=== PATIENT | female | born 2000 | race Caucasian/White ===

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

== ENCOUNTER 2023-01-01 22:19 | Emergency (ER) | payer MEDICAID, SELFPAY ==
[2023-01-01 22:20] VITALS: BP 129/84; PULSE 81; RESP 16; TEMP 36.6; O2SAT 98; BMI 17.9
--- NOTE | 2023-01-01 22:32 | ED.VIS.FEGU ---
HPI HPI - Female History of Present Illness Chief Complaint: Flank Pain Informant: patient Pain Pain: Positive for Pelvic Pain Current Severity: Mild Maximum Severity: Mild Bleeding Issue: Positive for Vaginal bleeding Onset: Days Context: Gradual Onset Timing: Intermittent Current Severity: Spotting Maximum Severity: Spotting Associated Symptoms Associated Symptoms: Negative for Dysuria, Frequency, Urgency, Hematuria or Missed Period P: 3 Ab: 0 Narrative Narrative: 22-year-old female G2, P3 with having twins Ab0. Denies dyspnea past medical or surgical history. Denies any prior abdominal surgeries. Since the last week she has not really felt well. Has had lower abdominal discomfort. She went to an urgent care they did a flu test which was negative. She denies any dysuria nor any hematuria. She has had some mild vaginal spotting states her last menstrual period was 3 weeks ago it was several days late and later than normal. She does not believe she is she says she has felt nauseated and tired. She denies any vomiting or diarrhea. No fever. No recent hospitalization. Prior similar symptoms: No Recent Illness/Hospitalization: No PFSH PFSH Medical History Depression GERD (gastroesophageal reflux disease) IBS (irritable bowel syndrome) Home Medications Prilosec 1 tab PO DAILY Check with primary doctor 06/26/19 [History Last Taken 05/01/21 06:30] valacyclovir 1 gram tablet (Valtrex) 1,000 mg PO DAILY hsv 11/11/20 [History Last Taken 05/01/21 06:30] [id number] 1 mg tablet 1 tab PO DAILY 03/07/21 [History Last Taken 05/01/21 06:30] Phenergan 4 mg PO Q4H PRN PRN n/v 05/02/21 [History Last Taken Unknown] progesterone micronized 05/02/21 [History Last Taken 05/01/21 06:30] sulfamethoxazole 800 mg-trimethoprim 160 mg tablet (Bactrim DS) 1 tab PO BID 5 days #10 tabs 01/01/23 [Rx Last Taken Unknown] Allergy/AdvReac Type Severity Reaction Status Date / Time Latex, Natural Rubber AdvReac Rash Verified 01/01/23 22:23 Social History Smoking Status: Current some day smoker tobacco type: cigarettes ROS ROS ED ROS Narrative Nausea. Fatigue. Suprapubic discomfort. Spotting. Review of Systems ROS Unobtainable: Denies due to encephalopathy Constitutional Constitutional ED: Denies chills or fever(s) Eyes Eyes: Denies blurry vision ENT ENT ED: Denies ear pain Cardiovascular Cardiovascular: Denies chest pain Respiratory/Chest Respiratory/Chest: Denies cough Gastrointestinal Gastrointestinal: Reports abdominal pain and nausea; Denies constipation, diarrhea, melena or vomiting Genitourinary Genitourinary ED: Denies dysuria or hematuria Musculoskeletal Musculoskeletal: Denies arthralgias or myalgias Integumentary Denies abscess Neurologic Neurologic: Denies headache(s) Psychiatric Psychiatric: Denies anxiety Endocrine Endocrinology: Denies heat intolerance Hematologic/Lymphatic Hematologic/Lymphatic: Denies easy bleeding Allergic/Immunologic Allergic/Immunologic ED: Denies mouth swelling or tongue swelling EXAM Physical Exam Narrative Exam Narrative: Well-appearing 22-year-old female no acute distress. Vital signs are stable afebrile. She does not look septic or toxic. Mom present in the room. HEENT exam unremarkable. Moist mucous membranes. Neck nontender no lymphadenopathy. Lungs clear to auscultation bilaterally. Heart regular rhythm rate about 80 no murmur. Chest wall nontender. Abdomen soft. Mild suprapubic discomfort. No right upper or right lower quadrant tenderness. No signs of trauma. No distention. No hernia. Moving all 4 extremities. Nontender no edema. Back no specific tenderness. Neurologically she is awake and alert without focal motor deficits. Moving all 4 extremities. Normal motor strength. Const Vital Signs: 01/01/23 22:20 01/01/23 22:56 Temperature 97.9 F Temperature Source Temporal Pulse Rate 81 Respiratory Rate 16 Respiratory Pattern Normal Blood Pressure 129/84 H Blood Pressure Mean 99 Pulse Ox 98 Oxygen Delivery Method Room Air Positive well nourished and well developed; Negative for obese, cachectic, contractures or unkempt General Appearance ED: well developed and NAD; Negative for unkempt, cachectic, contractures or pallor Nutritional Appearance: Negative for cachectic or obese HEENT Reports moist mucous membranes Negative for trauma or tenderness Eyes PERRL and EOMs intact bilaterally General Eye ED: Negative for pale conjunctiva or scleral icterus Neck no lymphadenopathy, supple and no JVD General: Negative for other Thyroid: Negative for tender Lymph Lymphatic: Negative for other Chest Wall inspection of chest normal and palpation of chest normal Chest: Negative for other Resp normal respiratory effort and clear to auscultation bilaterally Effort and Inspection: Negative for pain with movement Auscultation: Negative for rales, rhonchi or wheezes Cardio regular rate, regular rhythm, S1 normal heart sound, no murmurs and no JVD GI normal to inspection, nondistended, normoactive bowel sounds, soft to palpation, non-tender, non-distended and no masses Auscultation: normoactive bowel sounds Palpation: Negative for tender, guarding or rigid Back/Spine no CVA tenderness General Back: Negative for CVA tenderness Cervical Spine: Negative for cervical spine tenderness Thoracic Spine / Upper Back: Negative for thoracic spinal tenderness Lumbar Spine / Lower Back: Negative for lumbar spinal tenderness Extremity normal to inspection and full ROM General Extremety ED: Negative for edema or tenderness General Extremity: Negative for edema Neuro oriented x3, CN's II-XII intact bilaterally and no sensory deficits noted Sensorium / Orientation: alert; Negative for oriented to person, oriented to place or oriented to time Motor Exam: strength 5/5 throughout; Negative for general weakness or strength abnormal Psych mental status grossly normal Appearance: Negative for unkempt Attitude: No agitated Speech: No other Mood & Affect: Negative for depressed, anxious or tearful Skin no rashes or lesions noted and no wounds General Skin Exam: Negative for jaundice or pallor Rashes: No rashes noted Trauma: Negative for other MDM MDM MDM Narrative Medical decision making narrative: Chest 22-year-old female that has had vertigo is gone. Chest discomfort suprapubic abdominal discomfort, spotting and irregular last menstrual period about 3 weeks ago. Stretching out causes complaining and nausea and fatigue. Screening labs being obtained. Urinalysis. Serum . Repeat exam patient is doing well at 11:41 PM. She will be discharged home treated as UTI. She has had UTIs in the past. She has no antibiotic allergies. She be placed on Bactrim p.o. 1 twice daily for 5 days 10 no refill. First dose given in the ER. History & Record Review Discussion w/independent historian: Patient and Family Lab Data Attestation: I reviewed the patient's lab results. Lab results narrative: CBC. White count 9.5. H&H 13 and 39. Platelets 245. Serum test negative. Chemistries unremarkable. Liver enzymes normal. Potassium 3.3. Urine also is consistent with UTI. No nitrates. Rare bacteria. 25-50 white cells. Labs: Laboratory Results - last 24 hr 01/01/23 01/01/23 22:40 22:50 WBC 11.5 H RBC 4.41 Hgb 13.4 Hct 39.6 MCV 89.8 MCH 30.4 MCHC 33.8 RDW Std Deviation 43.3 RDW Coeff of Aida 13.1 Plt Count 245 MPV 10.5 Immature Gran % (Auto) 1.000 H Neut % (Auto) 65.6 Lymph % (Auto) 28.3 [place] % (Auto) 4.5 Eos % (Auto) 0.3 Baso % (Auto) 0.3 Absolute Neuts (auto) 7.5 Absolute Lymphs (auto) 3.24 Nucleated RBC % 0 Sodium 139 Potassium 3.3 L Chloride 107 Carbon Dioxide 27.0 Anion Gap 5 BUN 9 Creatinine 0.72 Estim Creat Clear Calc 96.02 Est GFR (MDRD) Af Amer 133 Est GFR (MDRD) Non-Af 110 BUN/Creatinine Ratio 12.6 Glucose 87 Calcium 8.9 Total Bilirubin 0.30 AST 8 L ALT 13 Alkaline Phosphatase 42 L Total Protein 7.2 Albumin 4.1 Globulin 3.1 Albumin/Globulin Ratio 1.3 Serum , Qual NEGATIVE Urine Color Yellow Urine Clarity Sl. Cloudy Urine pH 6.5 Ur Specific [place] 1.015 Urine Protein 30 H Urine Glucose (UA) Normal Urine Ketones Negative Urine Occult Blood 10 H Urine Nitrite Negative Urine Bilirubin Negative Urine Urobilinogen Normal Ur Leukocyte Esterase 100 H Urine RBC 0-5 SEEN Urine WBC 25-50 SEEN Ur Squamous Epith Cells 0-5 SEEN Urine Bacteria RARE Urine Mucus 0 SEEN Discharge Plan Triage Chief Complaint: Flank Pain ED Provider: Jonathan Rush Dx/Rx/DC Orders Clinical Impression: UTI (urinary tract infection) Instructions: Urinary Tract Infections in Women Prescriptions: New sulfamethoxazole-trimethoprim [Bactrim DS] 800-160 mg tablet 1 tab PO BID 5 Days Qty: 10 0RF No Action Prilosec 1 tab PO DAILY valacyclovir [Valtrex] 1 gram tablet 1,000 mg PO DAILY Patient Comments: Take 1 tablet by mouth once daily. After completing 3 day episodic course. 1 mg Tablet 1 tab PO DAILY Phenergan 4 mg PO Q4H PRN PRN (Reason: n/v) progesterone micronized Primary Care Provider: Melissa Garner Referrals: Melissa Garner MD [Primary Care Provider] - 3-5 Days if not improving Activity Restrictions/Additional Instructions: Plenty of fluids and rest. Tylenol and Motrin for pain. The antibiotic Bactrim 1 pill twice a day for the next 5 days starting tomorrow. You have a urinary tract infection. Your other labs were unremarkable. Your test was negative. Follow-up with your doctor if not improving. Return if worse. Disposition Disposition: Home, Self Care
[2023-01-01 22:44] LABS: Mucous, Urine 0 SEEN /hpf (<or=2+)
[2023-01-01 22:52] LABS: Color, Urine Yellow (Yellow); Glucose, Dipstick Normal (Normal); Ketone-Dipstick Negative (Negative); Leukocyte Esterase-Dipstick 100 /ul (Negative); Nitrite-Dipstick Negative (Negative); Occult Blood-Urine 10 /ul (Negative); Protein-Dipstick 30 mg/dl (Negative); Specific Gravity, Urine 1.015 (1.002-1.030); Urine Bilirubin Dipstick Negative (Negative); Urine Clarity Sl. Cloudy (Clear); Urine Urobilinogen Normal (Normal); Urine pH 6.5 (5.0 - 8.0)
[2023-01-01 23:09] LABS: Bacteria RARE /hpf (None Seen); Red Blood Cells-Urine 0-5 SEEN /hpf (0-5); Squamous Epithelial Cells - UA 0-5 SEEN /hpf (5-10); White Blood Cells 25-50 SEEN /hpf (0-5)
[2023-01-01 23:22] LABS: Internal QC Validated? YES +Cl - CLEAR BKGD; Pregnancy, Serum, hCG Quali. NEGATIVE Negative
[2023-01-01 23:23] LABS: ALB/GLOB Ratio 1.3 RATIO (0.9-2.4); AST(SGOT) 8 U/L (15-37); Alanine Aminotransfer ALT/SGPT 13 U/L (13-56); Albumin, Serum 4.1 g/dL (3.2-5.0); Alkaline Phosphatase 42 U/L (45-117); Anion Gap 5 (5-15); BUN 9 mg/dL (7-18); BUN/Creat Ratio 12.6 RATIO (10-20); Calcium,Total 8.9 mg/dL (8.5-10.1); Chloride 107 mmol/L (98-107); Creatinine, Serum 0.72 mg/dL (0.55-1.02); EST Glomerular Filtration Rate 110 mL/min (>60); Est Glom Filt Rate - Afr Amer 133 mL/min (>60); Estimated Creatinine Clearance 96.02 ml/min; Globulin 3.1 g/dL (2.2-4.2); Glucose 87 mg/dL (74-106); Potassium 3.3 mmol/L (3.5-5.1); Protein, Total 7.2 g/dL (6.4-8.2); Sodium Level 139 mmol/L (136-145)
[2023-01-01 23:30] LABS: Absolute Lymphocyte Count 3.24 X10^3/uL (0.83-4.51); Absolute Neutrophil Count 7.5 X10^3/uL (2.0-7.7); Basophil# 0.04 X10^3/uL; Basophil% 0.3 % (0-1); Eosinophil# 0.04 X10^3/uL; Eosinophils% 0.3 % (0-5); Hematocrit 39.6 % (37-47); Hemoglobin 13.4 g/dL (12.0-15.0); Lymphocyte # 3.24 X10^3/ul (0.83-4.51); Lymphocyte % 28.3 % (19-41); Mean Corp Hgb Conc 33.8 g/dL (32-36); Mean Corpuscular Hgb 30.4 pg (27.0-32.0); Mean Corpuscular Volume 89.8 fL (81-99); Mean Platelet Vol. 10.5 fl (6.2-12.0); Monocyte# 0.52 X10^3/uL; Monocyte% 4.5 % (0-10); NRBC Flagged by Analyzer 0 % (0-5); Neutrophil # 7.49 X10^3/uL (2.7-7.7); Neutrophil % 65.6 % (47-70); Platelet Count 245 K/mm3 (150-450); RBC Distribution Width CV 13.1 % (11.6-14.6); RBC Distribution Width SD 43.3 fl (35.1-43.9); Red Blood Count 4.41 M/mm3 (4.2-5.4); White Blood Count 11.5 K/mm3 (4.4-11.0)
[2023-01-01] MEDS: Smz/Tmp Ds Tablet 1 TABLET PO (23:51)
== END 2023-01-01 23:57 | disposition home or self-care (01) ==
PROVIDERS: Emergency Provider Emergency Medicine; PCP Pediatrics; Visit Provider Emergency Medicine
DX: N39.0 Urinary tract infection, site not specified (principal); F17.210 Nicotine dependence, cigarettes, uncomplicated; N93.9 Abnormal uterine and vaginal bleeding, unspecified; N92.6 Irregular menstruation, unspecified
CPT/HCPCS: 80053; 81001; 84703; 85025; 99282

== ENCOUNTER 2023-10-09 16:06 | Emergency (ER) | payer MEDICAID, SELFPAY ==
[2023-10-09 16:07] VITALS: BP 112/95; PULSE 99; RESP 18; TEMP 36.7; O2SAT 100; BMI 17.3
[2023-10-09 17:05] LABS: Absolute Lymphocyte Count 2.11 X10^3/uL (0.83-4.51); Absolute Neutrophil Count 3.5 X10^3/uL (2.0-7.7); Basophil# 0.04 X10^3/uL; Basophil% 0.7 % (0-1); Eosinophil# 0.06 X10^3/uL; Hematocrit 39.3 % (37-47); Lymphocyte # 2.11 X10^3/ul (0.83-4.51); Lymphocyte % 34.8 % (19-41); Mean Corp Hgb Conc 33.1 g/dL (32-36); Mean Corpuscular Volume 90.8 fL (81-99); Mean Platelet Vol. 10.8 fl (6.2-12.0); Monocyte# 0.38 X10^3/uL; Monocyte% 6.3 % (0-10); NRBC Flagged by Analyzer 0 % (0-5); Neutrophil # 3.47 X10^3/uL (2.7-7.7); Platelet Count 239 K/mm3 (150-450); RBC Distribution Width CV 12.5 % (11.6-14.6); RBC Distribution Width SD 41.5 fl (35.1-43.9); Red Blood Count 4.33 M/mm3 (4.2-5.4); White Blood Count 6.1 K/mm3 (4.4-11.0)
[2023-10-09] MEDS: 0.9% Normal Saline (1000mL) 1,000 ML 1000 ML IV ×2 (17:06→18:22)
[2023-10-09] MEDS: Ondansetron 4 MG/2 ML Vial IV (17:06)
[2023-10-09] MEDS: Ketorolac 30 MG/ML Syringe IV (17:06)
--- NOTE | 2023-10-09 17:06 | EX.ED.DYSGE1 ---
HPI History of Present Illness Chief Complaint: Headache Informant: patient Narrative Narrative: 23-year-old female presenting to the emergency room with chief complaint of migraine. Patient states that for the past 3 days she has had an occipital headache that seems to come towards the front. She notes decreased sleep. She notes some slight cough and runny nose. Yesterday developed vomiting and some diarrhea. She notes that her children have had vomiting diarrhea recently. She notes generalized myalgias. No definitive fevers. She denies rashes. She states she has never been diagnosed as definitive migraines but she does occasionally get headaches which she treats with [id number] medications and usually resolves it. She denies any arm leg face or speech changes. [facility] Medical History Depression GERD (gastroesophageal reflux disease) IBS (irritable bowel syndrome) Home Medications Prilosec 1 tab PO DAILY Check with primary doctor 06/26/19 [History Last Taken 05/01/21 06:30] valacyclovir 1 gram tablet (Valtrex) 1,000 mg PO DAILY hsv 11/11/20 [History Last Taken 05/01/21 06:30] [id number] 1 mg tablet 1 tab PO DAILY 03/07/21 [History Last Taken 05/01/21 06:30] Phenergan 4 mg PO Q4H PRN PRN n/v 05/02/21 [History Last Taken Unknown] progesterone micronized 05/02/21 [History Last Taken 05/01/21 06:30] sulfamethoxazole 800 mg-trimethoprim 160 mg tablet (Bactrim DS) 1 tab PO BID 5 days #10 tabs 01/01/23 [Rx Last Taken Unknown] ondansetron 4 mg disintegrating tablet 4 mg PO Q6H PRN PRN Nausea #10 tabs 10/09/23 [Rx Last Taken Unknown] Allergy/AdvReac Type Severity Reaction Status Date / Time Latex, Natural Rubber AdvReac Rash Verified 10/09/23 16:07 Social History Smoking Status: Current some day smoker tobacco type: cigarettes ROS ROS ED Constitutional Constitutional ED: Denies chills, fever(s) or weight loss Eyes Eyes: Denies change in vision or diplopia ENT ENT ED: Reports rhinorrhea; Denies ear pain or sore throat Cardiovascular Cardiovascular: Denies chest pain, orthopnea, palpitations or racing heartbeat Respiratory/Chest Respiratory/Chest: Reports cough; Denies dyspnea or orthopnea Gastrointestinal Gastrointestinal: Reports diarrhea, nausea and vomiting; Denies abdominal pain Genitourinary Genitourinary ED: Denies dysuria, hematuria or urinary frequency Musculoskeletal Musculoskeletal: Reports myalgias and neck pain; Denies arthralgias or back pain Integumentary Denies abscess or rash Neurologic Neurologic: Reports headache(s); Denies weakness Psychiatric Psychiatric: Denies anxiety, depression, suicidal ideation or suicidal thoughts Endocrine Endocrinology: Denies polydipsia, polyphagia or polyuria Allergic/Immunologic Allergic/Immunologic ED: Denies mouth swelling, tongue swelling or urticaria EXAM Physical Exam Const Vital Signs: 10/09/23 16:07 10/09/23 18:07 Temperature 98.1 F Temperature Source Temporal Pulse Rate 99 60 Respiratory Rate 18 17 Blood Pressure 112/95 H 112/77 Blood Pressure Mean 100 88 Pulse Ox 100 99 Oxygen Delivery Method Room Air Room Air Positive well nourished and well developed General Appearance ED: well developed HEENT Reports normocephalic, head/scalp atraumatic and moist mucous membranes Eyes PERRL and EOMs intact bilaterally Eyes Narrative: No photophobia Neck no lymphadenopathy, supple and no JVD Neck Narrative: No meningeal signs Resp normal respiratory effort and clear to auscultation bilaterally Cardio regular rate, regular rhythm and no murmurs GI normal to inspection, nondistended, normoactive bowel sounds and non-tender Palpation: soft Back/Spine no CVA tenderness and normal ROM Extremity normal to inspection General Extremety ED: Negative for edema General Extremity: Negative for edema Neuro oriented x3 and CN's II-XII intact bilaterally Sensorium / Orientation: alert Motor Exam: strength 5/5 throughout Psych mental status grossly normal Mood & Affect: Negative for depressed or tearful Skin no rashes or lesions noted and no wounds MDM MDM MDM Narrative Medical decision making narrative: Patient received 2 L of IV fluids Zofran and Toradol. Headache is improved she is overall feeling better. Basic blood work showed a white count 6.1 hemoglobin 13 platelet count of 239. Sodium and potassium within normal limits. BUN of 5 creatinine 0.64. Liver enzymes within normal limits lipase of 15 test negative urinalysis shows no overt infection. COVID influenza and RSV were negative. Clinically with her kids sick at home with similar symptoms minus the headache I think the patient most likely has a viral illness. Would recommend continued oral hydration I can write for Zofran at home. Tylenol Motrin for pain. Return if worsening or concerns follow-up as needed History & Record Review Discussion w/independent historian: Patient and Family Lab Data Attestation: I reviewed the patient's lab results. Labs: Laboratory Results - last 24 hr 10/09/23 10/09/23 17:00 18:00 WBC 6.1 RBC 4.33 Hgb 13.0 Hct 39.3 MCV 90.8 MCH 30.0 MCHC 33.1 RDW Std Deviation 41.5 RDW Coeff of Aida 12.5 Plt Count 239 MPV 10.8 Immature Gran % (Auto) 0.200 Neut % (Auto) 57.0 Lymph % (Auto) 34.8 [place] % (Auto) 6.3 Eos % (Auto) 1.0 Baso % (Auto) 0.7 Absolute Neuts (auto) 3.5 Absolute Lymphs (auto) 2.11 Nucleated RBC % 0 Sodium 141 Potassium 4.0 Chloride 111 H Carbon Dioxide 26.0 Anion Gap 4 L BUN 5 L Creatinine 0.64 Estim Creat Clear Calc 103.55 Est GFR (MDRD) Af Amer 150 Est GFR (MDRD) Non-Af 124 BUN/Creatinine Ratio 7.8 L Glucose 85 Calcium 8.6 Total Bilirubin 0.70 AST 10 L ALT 13 Alkaline Phosphatase 39 L Total Protein 6.8 Albumin 4.0 Globulin 2.8 Albumin/Globulin Ratio 1.4 Lipase 15 Urine Color Yellow Urine Clarity Sl. Cloudy Urine pH 7.0 Ur Specific [place] 1.010 Urine Protein Negative Urine Glucose (UA) Normal Urine Ketones Negative Urine Occult Blood 25 H Urine Nitrite Negative Urine Bilirubin Negative Urine Urobilinogen Normal Ur Leukocyte Esterase Negative Urine RBC 0-5 SEEN Urine WBC 0 SEEN Ur Squamous Epith Cells 0-5 SEEN Urine Bacteria 0 SEEN Urine Mucus 0 SEEN Urine Test Negative Discharge Plan Triage Chief Complaint: Headache ED Provider: Eze Norman Dx/Rx/DC Orders Clinical Impression: Acute dehydration, Vomiting and diarrhea, Headache Instructions: ED Dehydration (Adult), ED Viral Syndrome (Adult) Prescriptions: New ondansetron [ondansetron] 4 mg tablet,disintegrating 4 mg PO Q6H PRN PRN (Reason: Nausea) Qty: 10 0RF No Action Prilosec 1 tab PO DAILY valacyclovir [Valtrex] 1 gram tablet 1,000 mg PO DAILY Patient Comments: Take 1 tablet by mouth once daily. After completing 3 day episodic course. 1 mg Tablet 1 tab PO DAILY Phenergan 4 mg PO Q4H PRN PRN (Reason: n/v) progesterone micronized sulfamethoxazole-trimethoprim [Bactrim DS] 800-160 mg tablet 1 tab PO BID 5 Days Qty: 10 0RF Primary Care Provider: Melissa Garner Referrals: Melissa Garner MD [Primary Care Provider] - As Needed Disposition Disposition: Home, Self Care
[2023-10-09 17:24] LABS: ALB/GLOB Ratio 1.4 RATIO (0.9-2.4); AST(SGOT) 10 U/L (15-37); Alanine Aminotransfer ALT/SGPT 13 U/L (13-56); Alkaline Phosphatase 39 U/L (45-117); Anion Gap 4 (5-15); BUN 5 mg/dL (7-18); BUN/Creat Ratio 7.8 RATIO (10-20); Calcium,Total 8.6 mg/dL (8.5-10.1); Chloride 111 mmol/L (98-107); Creatinine, Serum 0.64 mg/dL (0.55-1.02); EST Glomerular Filtration Rate 124 mL/min (>60); Est Glom Filt Rate - Afr Amer 150 mL/min (>60); Estimated Creatinine Clearance 103.55 ml/min; Globulin 2.8 g/dL (2.2-4.2); Glucose 85 mg/dL (74-106); Lipase 15 U/L (13-75); Protein, Total 6.8 g/dL (6.4-8.2); Sodium Level 141 mmol/L (136-145)
[2023-10-09 18:06] LABS: Bacteria 0 SEEN /hpf (None Seen); Mucous, Urine 0 SEEN /hpf (<or=2+); White Blood Cells 0 SEEN /hpf (0-5)
[2023-10-09 18:07] VITALS: BP 112/77; PULSE 60; RESP 17; O2SAT 99
[2023-10-09 18:08] LABS: Color, Urine Yellow (Yellow); Glucose, Dipstick Normal (Normal); Ketone-Dipstick Negative (Negative); Leukocyte Esterase-Dipstick Negative /ul (Negative); Nitrite-Dipstick Negative (Negative); Occult Blood-Urine 25 /ul (Negative); Protein-Dipstick Negative (Negative); Urine Bilirubin Dipstick Negative (Negative); Urine Clarity Sl. Cloudy (Clear); Urine Urobilinogen Normal (Normal)
[2023-10-09 18:15] LABS: Internal QC Validated? YES +Cl - CLEAR BKGD; Pregnancy, Urine Negative Negative; Record Kit Lot#,Urine Preg HCG0000718086; Red Blood Cells-Urine 0-5 SEEN /hpf (0-5); Squamous Epithelial Cells - UA 0-5 SEEN /hpf (5-10)
== END 2023-10-09 19:45 | disposition home or self-care (01) ==
PROVIDERS: Emergency Provider Emergency Medicine; PCP Pediatrics; Visit Provider Emergency Medicine
DX: R51.9 Headache, unspecified (principal); E86.0 Dehydration; F17.210 Nicotine dependence, cigarettes, uncomplicated; R11.10 Vomiting, unspecified; R19.7 Diarrhea, unspecified; K21.9 Gastro-esophageal reflux disease without esophagitis; Z79.899 Other long term (current) drug therapy
CPT/HCPCS: 80053; 81001; 81025; 83690; 85025; 87631; 96361; 96374; 96375; 99282; J7030; A4216; J2405

== ENCOUNTER 2023-12-14 12:46 | Emergency (ER) | payer MEDICAID, SELFPAY ==
[2023-12-14 12:47] VITALS: BP 121/88; PULSE 106; RESP 15; TEMP 36.2; O2SAT 100; BMI 16.1
[2023-12-14 13:01] LABS: Red Blood Cells-Urine 0 SEEN /hpf (0-5)
[2023-12-14 13:08] LABS: Color, Urine Yellow (Yellow); Glucose, Dipstick Normal (Normal); Ketone-Dipstick Negative (Negative); Leukocyte Esterase-Dipstick 25 /ul (Negative); Nitrite-Dipstick Negative (Negative); Occult Blood-Urine Negative /ul (Negative); Protein-Dipstick 15 mg/dl (Negative); Urine Bilirubin Dipstick Negative (Negative); Urine Clarity Sl. Cloudy (Clear); Urine Urobilinogen Normal (Normal)
[2023-12-14 13:21] LABS: Bacteria 1+ /hpf (None Seen); Internal QC Validated? YES +Cl - CLEAR BKGD; Mucous, Urine 1+ /hpf (<or=2+); Pregnancy, Urine Negative Negative; Record Kit Lot#,Urine Preg HCG0000735774; Squamous Epithelial Cells - UA 5-10 SEEN /hpf (5-10); White Blood Cells 0-5 SEEN /hpf (0-5)
--- NOTE | 2023-12-14 14:25 | EDS_ITS ---
HPI History of Present Illness Chief Complaint: Flank Pain Informant: patient Narrative Narrative: 23-year-old female healthy started having pain in her right low back/flank that started while she was driving today. Hurts more to move and to sit up. Better to remain still. She had a little nausea with it but no vomiting. No urinary symptoms. No abdominal pain. She denies any shortness of breath. Patient states she has an old vehicle with no power steering. She states for a while the pump was leaking and she was going through $100 worth of power steering fluid per month and just dumping it and so they eventually unhooked the pump. Now it is a lot of work to steer and she is fairly small only 45 kg. She states yes this could have occurred as a result she has been driving a lot for the past week or 2 whereas before she was avoiding it because it is so hard to turn the wheel. 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 [facility] Medical History IBS (irritable bowel syndrome) Depression GERD (gastroesophageal reflux disease) Home Medications ?Medication ?Instructions ?Recorded ?Last Taken ?Type Prilosec 1 tab PO DAILY Check with primary 06/26/19 05/01/21 06:30 History doctor valacyclovir 1 gram tablet 1,000 mg PO DAILY hsv 11/11/20 05/01/21 06:30 History (Valtrex) [id number] 1 mg 1 tab PO DAILY 03/07/21 05/01/21 06:30 History tablet Phenergan 4 mg PO Q4H PRN PRN n/v 05/02/21 Unknown History progesterone micronized 05/02/21 05/01/21 06:30 History sulfamethoxazole 800 1 tab PO BID 5 days #10 tabs 01/01/23 Unknown Rx mg-trimethoprim 160 mg tablet (Bactrim DS) ondansetron 4 mg disintegrating 4 mg PO Q6H PRN PRN Nausea #10 tabs 10/09/23 Unknown Rx tablet naproxen 500 mg tablet (Naprosyn) 500 mg PO BID PRN pain #12 tabs 12/14/23 Unknown Rx Allergy/AdvReac Type Severity Reaction Status Date / Time Latex, Natural Rubber AdvReac Rash Verified 12/14/23 12:50 Social History Smoking Status: Current some day smoker tobacco type: cigarettes ROS ROS ED Constitutional Constitutional ED: Denies chills or fever(s) Cardiovascular Cardiovascular: Denies chest pain, lightheadedness, palpitations, racing heartbeat or syncope Respiratory/Chest Respiratory/Chest: Denies cough or dyspnea Gastrointestinal Gastrointestinal: Reports nausea; Denies abdominal pain, diarrhea or vomiting Genitourinary Genitourinary ED: Denies dysuria, hematuria or urinary frequency Musculoskeletal Musculoskeletal: Reports back pain; Denies neck pain Integumentary Denies rash Neurologic Neurologic: Denies headache(s), paresthesias or weakness EXAM Physical Exam Const Vital Signs: 12/14/23 12:47 Temperature 97.2 F L Temperature Source Temporal Pulse Rate 106 H Respiratory Rate 15 Blood Pressure 121/88 H Blood Pressure Mean 99 Pulse Ox 100 Oxygen Delivery Method Room Air Positive well nourished and well developed Constitutional Narrative: Well-appearing General Appearance ED: well developed and NAD HEENT Reports moist mucous membranes Negative for trauma Eyes PERRL and EOMs intact bilaterally Neck supple Chest Wall inspection of chest normal and palpation of chest normal Resp normal respiratory effort GI normal to inspection, nondistended, normoactive bowel sounds and non-tender Back/Spine no CVA tenderness Back/Spine Narrative: Diffuse right paraspinal lumbar musculoskeletal tenderness with normal on inspection, patient winces that she is sitting up as it exacerbates the pain but she is able. Tender up into lower areas of the latissimus dorsi as well, no focal rib tenderness. Some mild tenderness superficially around the flank and into the right lower rib cage but not the abdomen. Lumbar Spine / Lower Back: Negative for lumbar spinal tenderness Extremity normal to inspection Neuro oriented x3, CN's II-XII intact bilaterally and no sensory deficits noted Sensorium / Orientation: alert Motor Exam: strength 5/5 throughout Psych mental status grossly normal Skin no rashes or lesions noted and no wounds MDM MDM MDM Narrative Medical decision making narrative: Urinalysis is sent by nursing prior to my evaluation it is unremarkable and her is negative ruling out ectopic. There is no microscopic hematuria. This is reassuring not likely to be a kidney stone I suspect this is all musculoskeletal, she states that could certainly be the case based on the way it feels. I do not think any other emergent testing is warranted. Her vital signs are normal. She is okay with that a work excuse and a prescription for some anti-inflammatories and follow-up as needed. Lab Data Attestation: I reviewed the patient's lab results. Labs: Laboratory Results - last 24 hr 12/14/23 12:55 Urine Color Yellow Urine Clarity Sl. Cloudy Urine pH 5.0 Ur Specific [place] 1.020 Urine Protein 15 H Urine Glucose (UA) Normal Urine Ketones Negative Urine Occult Blood Negative Urine Nitrite Negative Urine Bilirubin Negative Urine Urobilinogen Normal Ur Leukocyte Esterase 25 H Urine RBC 0 SEEN Urine WBC 0-5 SEEN Ur Squamous Epith Cells 5-10 SEEN Urine Bacteria 1+ Urine Mucus 1+ Urine Test Negative Discharge Plan Triage Chief Complaint: Flank Pain ED Provider: Chencho Skinner Dx/Rx/DC Orders Clinical Impression: Acute lumbar myofascial strain Instructions: ED Back Sprain/Strain Prescriptions: New naproxen [Naprosyn] 500 mg tablet 500 mg PO BID PRN (Reason: pain) Qty: 12 0RF No Action Prilosec 1 tab PO DAILY valacyclovir [Valtrex] 1 gram tablet 1,000 mg PO DAILY Patient Comments: Take 1 tablet by mouth once daily. After completing 3 day episodic course. 1 mg Tablet 1 tab PO DAILY Phenergan 4 mg PO Q4H PRN PRN (Reason: n/v) progesterone micronized sulfamethoxazole-trimethoprim [Bactrim DS] 800-160 mg tablet 1 tab PO BID 5 Days Qty: 10 0RF ondansetron [ondansetron] 4 mg tablet,disintegrating 4 mg PO Q6H PRN PRN (Reason: Nausea) Qty: 10 0RF Stand Alone Forms: ED Work / School Excuse Primary Care Provider: Melissa Garner Referrals: Melissa Garner MD [Primary Care Provider] - 1 Week if not improving Print Language: Faroese Disposition Disposition: Home, Self Care
[2023-12-14 14:36] VITALS: BP 112/73; PULSE 78; RESP 18; TEMP 36.3; O2SAT 99
[2023-12-14] MEDS: Naproxen 500 MG Tablet PO (14:36)
== END 2023-12-14 14:37 | disposition home or self-care (01) ==
LOC: ED 14:32
PROVIDERS: Emergency Provider Emergency Medicine; PCP Pediatrics; Visit Provider Emergency Medicine
DX: S39.012A Strain of muscle, fascia and tendon of lower back, initial encounter (principal); F17.210 Nicotine dependence, cigarettes, uncomplicated
CPT/HCPCS: 81001; 81025; 99282

== ENCOUNTER 2024-04-01 10:04 | Day surgery (SDC) | payer MEDICAID, SELFPAY ==
[2024-04-01] VITALS (13 sets, daily range): BP systolic 108–137; BP diastolic 75–92; PULSE 88–133; RESP 14–22; TEMP 36.6–37.3; O2SAT 100; BMI 15.7
--- NOTE | 2024-04-01 | EMB_PTH ---
PATIENT: DONYA SCHWAB LOC: [facility] U#:[id number] AGE/SX: 23/F ROOM: RE04/01/[address]: Dr. Elena Robertson MD : 2000 BED: DIS: 04/01/2024 SPEC #: [id number] RECD: 04/01/24 17:39 STATUS: CRYS CASTAÑEDATiago #: [id number] ZELDA: 04/01/24 00:[address]: Elena Robertson DEPT: SURGICAL PATHOLOGY RECD BY: Reggie He ENTERED: 04/02/24 11:46 SP TYPE: ENDOM BX/C MELISSA DR: Dr. Melissa Garner MD Tissues: A - Endometrium, NOS B - ECTOPIC PREG Procedures: Surgery Specimen Level IV HEADER OPERATION: Laparoscopic, removal ectopic PRE-OP DIAGNOSIS: Right ectopic TISSUE SUBMITTED: A- Endometrial curettings, B- Right ectopic MICROSCOPIC DIAGNOSIS A. Endometrium, curettings: Secretory endometrium with glandular and stromal breakdown. B. Right ectopic , salpingectomy: Chorionic villi are present. See comment. 04/05/2024 COMMENT B. The findings are consistent with an ectopic . Clinical correlation is suggested. Case has been reviewed in consultation with Dr. Vee who concurs with the above diagnosis. IDC:[email or web address] MICROSCOPIC DESCRIPTION Slides are reviewed. GROSS DESCRIPTION A. Received in fixative is one container labeled with the patient's name and designated Endometrial curettings. The specimen consists of multiple irregular fragments of hemorrhagic soft tissue that in aggregate measure 2.5 x 1.4 x 0.3 cm. The specimen is totally submitted in one cassette. B. Received in fixative is one container labeled with the patient's name and designated Right ectopic . The specimen consists of a fallopian tube measuring 6.0cm in length and 5.0 to 3.0cm in diameter. Center area of fallopian tube show rupture with blood clots. Also present in the container is a detached piece of fallopian tube measuring 3.0cm in length and up to 1.2cm in diameter. Fimbrial end is identified. Sections reveal the fallopian tube lumen is filled with blood clot. No tissue is identified. Vendor Management Specialist sections are submitted in five cassettes. 04/02/2024 TC:5 CPT:78513s9
--- NOTE | 2024-04-01 10:31 | US_ITS ---
STUDY: FIRST TRIMESTER OBSTETRICAL ULTRASOUND REASON FOR EXAM: Female, 23 years old right sided pain + preg, vaginal bleeding LMP: November 21, 2024 TECHNIQUE: Transvaginal TECHNICAL QUALITY: Adequate. PRIOR ULTRASOUND: None. FINDINGS: There is no demonstrated intrauterine gestational sac. There is no demonstrated yolk sac. The placenta is non-visualized. There is no demonstrated embryo ( pole). The estimated gestation age (EGA) by LMP is 6 weeks, 4 days. The estimated date of delivery (ABRAHAM) by LMP is November 21, 2024. The uterus measures 6.5 cm x 4.6 x 4 cm. There is no demonstrated uterine fibroid. The cervix is closed. The right ovary measures 3.2 cm x 2.3 cm x 1.6 cm. There is a 3.3 cm x 2.4 cm x 2.2 cm complex density inferior to the right ovary. Free fluid is seen around it. Ectopic should be ruled out. There is no visualized right adnexal mass or complex lesion. The left ovary measures 2.8 cm x 1.3 cm x 1 cm. 1.1 cm x 1.1 cm x 0.7 cm complex cyst in the left ovary. There is no visualized left adnexal mass or complex lesion. US/Transvaginal w/Preg US IMPRESSION: No intrauterine . Findings suggestive of ectopic in the right adnexa as described with a moderate amount of free fluid. Electronically Signed: Nelson Marie MD at 12:24 EDT ,
--- NOTE | 2024-04-01 10:33 | EDS_ITS ---
HPI HPI - Female History of Present Illness Chief Complaint: Vag Bld, Preg Informant: patient Narrative Narrative: Patient is a 23-year-old female G4, P3 with last menstrual period of February 14. She is presenting from her OB office for further evaluation and concern of possible ectopic . Patient states she has had bleeding pretty much all month. She states is going through a pad every 4 hours. She did pass a clot yesterday though. Maybe had some tissue in it. She has been having worsening crampy discomfort over the past 1 to 2 days it is more on the right side. Radiates to her back. She has some pressure with urination but denies any dysuria. States he has a lot of pressure in her pelvis regardless. She had an in office ultrasound today where she states they could not see anything and recommended her to the ER for formal ultrasound intervention she did have an ectopic . She denies any nausea or vomiting. Notes that she did almost pass out when they were getting her blood work this morning but also attributes that to not having eaten today. She states she did not have a pelvic exam done earlier today. No other complaints or concerns reported at this time. [facility] Medical History IBS (irritable bowel syndrome) Depression GERD (gastroesophageal reflux disease) Home Medications ?Medication ?Instructions ?Recorded ?Last Taken ?Type Prilosec 1 tab PO DAILY Check with primary 06/26/19 05/01/21 06:30 History doctor valacyclovir 1 gram tablet 1,000 mg PO DAILY hsv 11/11/20 05/01/21 06:30 History (Valtrex) [id number] 1 mg 1 tab PO DAILY 03/07/21 05/01/21 06:30 History tablet Phenergan 4 mg PO Q4H PRN PRN n/v 05/02/21 Unknown History progesterone micronized 05/02/21 05/01/21 06:30 History sulfamethoxazole 800 1 tab PO BID 5 days #10 tabs 01/01/23 Unknown Rx mg-trimethoprim 160 mg tablet (Bactrim DS) ondansetron 4 mg disintegrating 4 mg PO Q6H PRN PRN Nausea #10 tabs 10/09/23 Unknown Rx tablet naproxen 500 mg tablet (Naprosyn) 500 mg PO BID PRN pain #12 tabs 12/14/23 Unknown Rx metronidazole 500 mg tablet 500 mg PO BID 04/01/24 Unknown History Allergy/AdvReac Type Severity Reaction Status Date / Time Latex, Natural Rubber AdvReac Rash Verified 04/01/24 12:59 Social History Smoking Status: Current some day smoker tobacco type: cigarettes ROS ROS ED Constitutional Constitutional ED: Denies chills or fever(s) Cardiovascular Cardiovascular: Denies chest pain Respiratory/Chest Respiratory/Chest: Denies cough Gastrointestinal Gastrointestinal: Reports abdominal pain; Denies nausea or vomiting Genitourinary Genitourinary ED: Reports other Details: Vaginal bleeding, pelvic pressure ; Denies dysuria or urinary frequency Musculoskeletal Musculoskeletal: Denies arthralgias or myalgias Integumentary Denies rash Neurologic Neurologic: Denies headache(s) Psychiatric Psychiatric: Denies anxiety Hematologic/Lymphatic Hematologic/Lymphatic: Denies easy bleeding or easy bruising EXAM Physical Exam Const Vital Signs: 04/01/24 10:05 04/01/24 11:19 04/01/24 12:06 Temperature 98 F 99.1 F Temperature Source Temporal Oral Pulse Rate 98 90 Respiratory Rate 18 17 Blood Pressure 108/89 H 120/82 H 112/75 Blood Pressure Mean 95 94 87 Pulse Ox 100 100 Oxygen Delivery Method Room Air Room Air 04/01/24 12:29 04/01/24 12:30 Temperature 99.1 F 99.1 F Temperature Source Temporal Pulse Rate 88 88 Respiratory Rate 16 16 Blood Pressure 120/76 120/76 Blood Pressure Mean 90 90 Pulse Ox 100 100 Oxygen Delivery Method Room Air Positive well nourished and well developed General Appearance ED: well developed and NAD Eyes PERRL Neck supple Chest Wall inspection of chest normal and palpation of chest normal Resp normal respiratory effort and clear to auscultation bilaterally Cardio regular rate and regular rhythm GI soft to palpation and non-distended Palpation: tender RLQ, RUQ and suprapubic; Negative for guarding or rigid Back/Spine no CVA tenderness Extremity normal to inspection and full ROM Neuro oriented x3 Sensorium / Orientation: alert Motor Exam: Negative for general weakness Psych mental status grossly normal Skin no rashes or lesions noted MDM MDM MDM Narrative Medical decision making narrative: Patient evaluated for vaginal bleeding and right-sided abdominal pain in early . Apparently she had a bedside transvaginal ultrasound which did not show any obvious IUP. Concern for possible ectopic versus threatened miscarriage versus incomplete miscarriage. Will give IV fluids, check labs including quant, CBC and CMP (she does also have some right upper quadrant tenderness), confirm type and screen, obtain t ransvaginal ultrasound and perform pelvic exam. [facility] is paged to ensure that this was their concern and make sure there is no miscommunication about the plan in the emergency room on initial evaluation. At this time she is not peritoneal and is hemodynamically stable. I spoke with Dr. Robertson who states that a quick bedside ultrasound performed which did not show anything in the uterus and her concerns for ectopic. She was not able to appreciate free fluid but needed formal ultrasound and labs. Lab work shows a quant of 1089. Patient is O+. Labs are otherwise normal. I am notified by robotic technician that her ultrasound is concerning for ectopic . Dr. Robertson is immediately notified. Discussed with her that while the official read is not back yet I do suspect that this needs surgical intervention it would not be candidate for methotrexate therapy. Patient is informed of the findings and our concerns. Decision is made to take the patient to the OR for operative management of ectopic . Patient is given fentanyl in the ER as well as Zofran for further pain control. Did receive IV fluids in the ER. Remains hemodynamically stable. Lab Data Attestation: I reviewed the patient's lab results. Labs: Laboratory Results - last 24 hr 04/01/24 10:35 WBC 8.7 RBC 4.11 L Hgb 12.6 Hct 38.2 MCV 92.9 MCH 30.7 MCHC 33.0 RDW Std Deviation 43.0 RDW Coeff of Aida 12.6 Plt Count 252 MPV 10.8 Immature Gran % (Auto) 0.700 Neut % (Auto) 75.5 H Lymph % (Auto) 18.2 L [place] % (Auto) 5.0 Eos % (Auto) 0.3 Baso % (Auto) 0.3 Absolute Neuts (auto) 6.6 Absolute Lymphs (auto) 1.59 Nucleated RBC % 0 Sodium 141 Potassium 3.8 Chloride 110 H Carbon Dioxide 28.0 Anion Gap 3 L BUN 6 L Creatinine 0.72 Estim Creat Clear Calc 86.05 Est GFR (MDRD) Af Amer 132 Est GFR (MDRD) Non-Af 109 BUN/Creatinine Ratio 8.4 L Glucose 108 H Calcium 9.4 Total Bilirubin 0.70 AST 4 L ALT 11 L Alkaline Phosphatase 48 Total Protein 7.0 Albumin 4.0 Globulin 3.0 Albumin/Globulin Ratio 1.3 HCG, Quant 1089 H Blood Type O POSITIVE Radiography Diagnostic Testing: Clinical Impression(s) from Imaging Studies Obstetrics Ultrasound 04/01/24 10:31 IMPRESSION: No intrauterine . Findings suggestive of ectopic in the right adnexa as described with a moderate amount of free fluid. Electronically Signed: Nelson Marie MD at 12:24 EDT , Discharge Plan Dx/Rx/DC Orders Clinical Impression: Ruptured right tubal ectopic causing hemoperitoneum Disposition Disposition: Acute Care [facility] Discharge Date/Time: 04/01/24 12:36
[2024-04-01 10:45] LABS: Absolute Lymphocyte Count 1.59 X10^3/uL (0.83-4.51); Absolute Neutrophil Count 6.6 X10^3/uL (2.0-7.7); Basophil# 0.03 X10^3/uL; Basophil% 0.3 % (0-1); Eosinophil# 0.03 X10^3/uL; Eosinophils% 0.3 % (0-5); Hematocrit 38.2 % (37-47); Hemoglobin 12.6 g/dL (12.0-15.0); Lymphocyte # 1.59 X10^3/ul (0.83-4.51); Lymphocyte % 18.2 % (19-41); Mean Corpuscular Hgb 30.7 pg (27.0-32.0); Mean Corpuscular Volume 92.9 fL (81-99); Mean Platelet Vol. 10.8 fl (6.2-12.0); Monocyte# 0.44 X10^3/uL; NRBC Flagged by Analyzer 0 % (0-5); Neutrophil # 6.57 X10^3/uL (2.7-7.7); Neutrophil % 75.5 % (47-70); Platelet Count 252 K/mm3 (150-450); RBC Distribution Width CV 12.6 % (11.6-14.6); Red Blood Count 4.11 M/mm3 (4.2-5.4); White Blood Count 8.7 K/mm3 (4.4-11.0)
[2024-04-01] MEDS: 0.9% Normal Saline (1000mL) 1,000 ML 999 ML IV (10:47)
[2024-04-01 10:59] LABS: ALB/GLOB Ratio 1.3 RATIO (0.9-2.4); AST(SGOT) 4 U/L (15-37); Alanine Aminotransfer ALT/SGPT 11 U/L (13-56); Alkaline Phosphatase 48 U/L (45-117); Anion Gap 3 (5-15); BUN 6 mg/dL (7-18); BUN/Creat Ratio 8.4 RATIO (10-20); Calcium,Total 9.4 mg/dL (8.5-10.1); Chloride 110 mmol/L (98-107); Creatinine, Serum 0.72 mg/dL (0.55-1.02); EST Glomerular Filtration Rate 109 mL/min (>60); Est Glom Filt Rate - Afr Amer 132 mL/min (>60); Estimated Creatinine Clearance 86.05 ml/min; Glucose 108 mg/dL (74-106); Potassium 3.8 mmol/L (3.5-5.1); Sodium Level 141 mmol/L (136-145)
[2024-04-01 11:15] LABS: hCG Titer Quant., Serum 1089 mIU/mL (1-3)
[2024-04-01] MEDS: Ondansetron 4 MG/2 ML Vial IV (12:30)
[2024-04-01] MEDS: fentaNYL 100 MCG/2 ML Ampul 50 MCG IV (12:30)
--- NOTE | 2024-04-01 12:36 | HP.PCM.OB_ITS ---
HPI - General General Date of Admission: 04/01/24 Date of Service: 04/01/24 Chief Complaint: Ectopic HPI Narrative DONYA SCHWAB, is a 23 F who presents right ectopic . Abnormally rising HCG. Bleeding and pain since yesterday. US confirms no IUP and right adnexa mass with blood in the peritoneum. [facility] Medical History IBS (irritable bowel syndrome) Depression GERD (gastroesophageal reflux disease) Home Medications ?Medication ?Instructions ?Recorded ?Last Taken ?Type Prilosec 1 tab PO DAILY Check with primary 06/26/19 05/01/21 06:30 History doctor valacyclovir 1 gram tablet 1,000 mg PO DAILY hsv 11/11/20 05/01/21 06:30 History (Valtrex) [id number] 1 mg 1 tab PO DAILY 03/07/21 05/01/21 06:30 History tablet Phenergan 4 mg PO Q4H PRN PRN n/v 05/02/21 Unknown History progesterone micronized 05/02/21 05/01/21 06:30 History sulfamethoxazole 800 1 tab PO BID 5 days #10 tabs 01/01/23 Unknown Rx mg-trimethoprim 160 mg tablet (Bactrim DS) ondansetron 4 mg disintegrating 4 mg PO Q6H PRN PRN Nausea #10 tabs 10/09/23 Unknown Rx tablet naproxen 500 mg tablet (Naprosyn) 500 mg PO BID PRN pain #12 tabs 12/14/23 Unknown Rx metronidazole 500 mg tablet 500 mg PO BID 04/01/24 Unknown History Allergy/AdvReac Type Severity Reaction Status Date / Time Latex, Natural Rubber AdvReac Rash Verified 04/01/24 10:06 Social History Smoking Status: Current some day smoker tobacco type: cigarettes History Elective abortions Hx Para 0 Spontaneous abortions Hx # Term Pregnancies Ectopic pregnancies Hx # Pregnancies Multiple births # of living children ROS Constitutional Constitutional: Denies fatigue, fever(s) or malaise ENT HEENT: Denies dizziness or headache(s) Cardiovascular Cardiovascular: Denies chest pain, dyspnea or lightheadedness Respiratory/Chest Respiratory/Chest: Denies cough or dyspnea Gastrointestinal Gastrointestinal: Reports abdominal pain; Denies change in bowel habits Genitourinary Genitourinary: Denies burning urination or genital lesions Integumentary Integumentary: Denies rash Neurologic Neurologic: Denies confusion, dizziness, headache(s), numbness or weakness Vital Signs Vital Signs Vital Signs: 04/01/24 10:05 04/01/24 11:19 04/01/24 12:06 Temperature 98 F 99.1 F Temperature Source Temporal Oral Pulse Rate 98 90 Respiratory Rate 18 17 Blood Pressure 108/89 H 120/82 H 112/75 Blood Pressure Mean 95 94 87 Pulse Ox 100 100 Oxygen Delivery Method Room Air Room Air 04/01/24 12:29 04/01/24 12:30 Temperature 99.1 F 99.1 F Temperature Source Temporal Pulse Rate 88 88 Respiratory Rate 16 16 Blood Pressure 120/76 120/76 Blood Pressure Mean 90 90 Pulse Ox 100 100 Oxygen Delivery Method Room Air Weight Weight: 44.1 kg Body Mass Index (BMI) 15.7 Physical Exam Const alert, oriented x3 and no apparent distress HEENT normocephalic Head and Scalp: atraumatic Eyes PERRL Resp normal respiratory effort Cardio regular rate GI Palpation: tender RLQ Extremity normal to inspection Neuro moves all extremities Labs Labs Labs: Blood Type O POSITIVE Antibody Screen NEGATIVE Hct 38.2 % (37-47) Hgb 12.6 g/dL (12.0-15.0) Obstetrics Ultrasound Group B Strep DNA Negative (Negative) Rhogam given: No Miscellaneous Test Assessment & Plan (1) Ruptured right tubal ectopic causing hemoperitoneum: PLAN: Plan Laparoscopic right removal of ectopic possible salpingectomy
--- NOTE | 2024-04-01 13:19 | PRE.ANES_ITS ---
ASA Classification* ASA Classification ASA Classification: 2 and E Assessment & Plan Anesthesia* Anesthesia Assessment Anesthesia Assessment: Discussed sedation and/or anesthesia options, risks, benefits, and alternatives with patient/parents/legal guardian/POA. Questions invited. The patient/parents/legal guardian/POA seems to understand and agrees to proceed with anesthesia plan. Reviewed the physical assessment, medical history, allergy history and patient home medications list prior to surgery/procedure/anesthetic and documented any changes. Performed airway and anesthesia risk assessments. Anesthesia Type Anesthesia Type: General History Source History Obtained from:: Patient and Chart Anesthesia Focused Assessment* Temperature: 99.1 F Pulse Rate: 88 Blood Pressure: 120/76 Respiratory Rate: 16 Pulse Ox: 100 Oxygen Delivery Method: Room Air Airway Assessment Mouth opens: >3 cm Mallampati Score: II Teeth Condition: Intact Neck Range of motion (ROM): Full ROM Focused Labs Anesthesia Preop lab: CBC WBC 8.7 K/mm3 (4.4-11.0) 04/01/24 10:35 RBC 4.11 M/mm3 (4.2-5.4) L 04/01/24 10:35 Hgb 12.6 g/dL (12.0-15.0) 04/01/24 10:35 Hct 38.2 % (37-47) 04/01/24 10:35 Plt Count 252 K/mm3 (150-450) 04/01/24 10:35 CHEMISTRY Potassium 3.8 mmol/L (3.5-5.1) 04/01/24 10:35 Sodium 141 mmol/L (136-145) 04/01/24 10:35 BUN 6 mg/dL (7-18) L 04/01/24 10:35 Creatinine 0.72 mg/dL (0.55-1.02) 04/01/24 10:35 Glucose 108 mg/dL (74-106) H 04/01/24 10:35 POC Glucose 174 mg/dL (70-110) H 05/24/19 16:48 TSH 0.87 uIU/mL (0.358-3.74) 03/25/16 15:26 COAG HCG, Quant 1089 mIU/mL (1-3) H 04/01/24 10:35 Urine Test Negative Negative 12/14/23 12:55 Pre-Assessment Diagnosis/Proposed Procedure Planned Operative Procedure(s): Laparoscopic removal of ectopic . Anesthesia History Anesthesia History - detective automobile section: Anesthesia History - detective automobile section Hx Hospitalization No 05/24/19 15:42 Any Problems With Anesthesia Cholinesterase deficiency You/Your Family Experience fever (hyperthermia) with Relationship Recent Exposure to Contagious Disease Does patient have nerve stimulator Patient instructed to have device shut off --Does patient have Pacemaker or ICD? When Was Last Pacemaker Check QUESTION #4 FULL TEXT: You/Your Family Experience fever (hyperthermia) with Anesthesia Last Oral Intake Last Oral intake: Last Oral Intake NPO since Meds taken in AM with sips of water? Meds patient instructed to take am of surgery Any additional information?: Yes NPO since: 09:30 (Patient had grape juice at 930.) Meds taken in AM with sips of water?: Yes PONV PONV - detective automobile section: PONV - detective automobile section Female HX of Motion Sickness HX of N/V After Surgery Non-Smoker Duration of Surgery greater than 60 minutes Number of Risk Factors PONV Score Height & Weight Height & Weight: Anesthesia: Height & Weight Height 5 ft 6 in 04/01/24 10:05 Weight: 44.1 kg 04/01/24 10:05 Body Mass Index (BMI) 15.7 04/01/24 10:05 Respiratory Assessment Respiratory Assessment - detective automobile section: Respiratory Tract Infection Hx - detective automobile section Hx Respiratory Tract Infection Any additional information?: Yes Hx Respiratory Tract Infection: No STOP Sleep Apnea STOP Sleep Apnea - detective automobile section: STOP Sleep Apnea - detective automobile section Hx Hypertension Hx Sleep Apnea CPAP BIPAP Do you snore loudly (louder than talking or can be heard Do you often feel tired/ fatigued/ sleepy during daytime? Has anyone observed you stop breathing during sleep? STOP Results QUESTION #5 FULL TEXT : Do you snore loudly (louder than talking or can be heard through closed doors)? Tobacco Use History Tobacco Use History - detective automobile section: Tobacco Use History - detective automobile section Tobacco Use Cigarettes 11/11/20 09:53 Smoking Status Current some day smoker 04/01/24 10:39 Hx Tobacco Use No 05/24/19 15:42 Years Smoking Packs Smoked per Day Smoking Cessation Date was within the last 15 years Hx Smoking Cessation Date Hx Smoking Cessation Counseling Any additional information?: Yes Smoking Status: Current every day smoker (Patient did vape today.) Hematologic Medial History Hematologic Hx - detective automobile section: Hematologic Medical Hx - bird sitter Hx of Blood Transfusion Hx of Transfusion in last 3 Months Date of Last Transfusion (if within last 3 months) Ever experience any problems with transfusion(s)? Specify any problems Hx of Preganancy in last 3 Months Nurse Filling Out Transfusion & Questions: Date: Time: Patient unable to answer at this time (ie. confused, unrespo /Reproduction History /Reproductive History - detective automobile section: /Reproductive Hx- detective automobile section Hx Now Yes 04/01/24 10:39 Gestational Age (in weeks): EDC: Hx 4 04/01/24 10:39 Hx Para Hx Section SAB No 04/01/24 10:05 Active Medications Active Medications: Current Medications Generic Name Dose Route Start Last Admin Trade Name Freq PRN Reason Stop Dose Admin Lactated Ringer's 1,000 mls @ 15 mls/hr 04/01/24 13:15 IV .Q48H YELENA PFSH Medical History IBS (irritable bowel syndrome) Depression GERD (gastroesophageal reflux disease) Home Medications ?Medication ?Instructions ?Recorded ?Last Taken ?Type Prilosec 1 tab PO PRN ACID REFLUX 06/26/19 05/01/21 06:30 History valacyclovir 1 gram tablet 1,000 mg PO DAILY PRN hsv 11/11/20 05/01/21 06:30 History (Valtrex) [id number]-FA 1 mg 1 tab PO DAILY 03/07/21 04/01/24 History tablet metronidazole 500 mg tablet 500 mg PO BID 04/01/24 03/31/24 History Allergy/AdvReac Type Severity Reaction Status Date / Time Latex, Natural Rubber AdvReac Rash Verified 04/01/24 12:59 Social History Smoking Status: Current some day smoker tobacco type: cigarettes Review of Systems (Anesthesia) ROS Narrative System reviewed and no additional complaints, except as documented.
[2024-04-01] MEDS: Lactated Ringers 1,000 ML 15 ML IV (13:22)
--- NOTE | 2024-04-01 14:45 | OP.PCM_ITS ---
Problems Associated Problem List Diagnoses (1) Ruptured right tubal ectopic causing hemoperitoneum: Report of Operation Date of Procedure: 04/01/24 Pre-Operative Diagnosis: Right ectopic prgnancy Post-Operative Diagnosis: same Surgery/Procedure Performed:: Laparoscopic right salpingectomy, D&C Description of Surgical Findings:: Enlarged tortuous right tube with adhesion to ovary. Ovary with adhesions to side wall. Hemoperitoneum about 100 cc. Normal left tube and uterus Surgeon: Elena Robertson pipe roller: Jonathan Jennings Type of Anesthesia: General Anesthesiologist: Melissa Morales Special Medications: marcaine Specimen's removed: right tube and POC, endometrial currettings Estimated Blood Loss (mL): 25 Fluids Replaced: 1000 cc Description of Procedure: Patient taken to OR with IVF running. She was placed in a dorsal supine position. Anesthesia was inducted without difficulty and she was intubated. She was prepped and drape in the normal sterile fashion. Her bladder was emptied for 100 cc of clear urine. A weighted speculum was placed in the posterior vagina. The cervix was grasped with a single toothed tenaculum. The cervix was dilated and a curette used to collect any endometrial tissue. A ring forceps was placed on the anterior cervix. The speculum was removed. Attention was turned to the abdomen. An infraumbilical incision was made with the scalpel. A 5 mm blunt trocar was placed under direct visualization into the peritoneal cavity. CO2 was used to created a pneumoperitoneum. She was placed in Trendelenburg. The right tube was found to be completely distended from the cornua to the fimbria. The tube was tortuous and adhesed to the right ovary. The right ovary was adherent to the pelvic side was. There was about 100 cc of blood in the pelvis. A right and left lower quadrant port was placed under direct visualization. The right tube was elevated and the adhesion ligated with the LigaSure. The tube was transected with the LigaSure and then along the mesosalpinx to the fimbriated end. Hemostasis was obtained. A 10 mm port was placed in the umbilicus to allow and EndoCatch to be utilized to remove the ectopic. The pelvis was then copiously irrigated with normal saline. The instruments were removed from the cavity. The pneumoperitoneum was was released. The umbilicus was closed with 2-0 Vicryl. The skin incisions were closed with 4-0 Monocryl and covered with Dermabond. The ring forceps was removed from the cervix. Anesthesia was reversed and the patient taken to the PACU in stable condition. An ASPHALT DISTRIBUTOR OPERATOR was utilized as an certified pathology assistant. He held the camera throughout the procedure and closed the skin incisions. Procedure Start Time: 14:05 Procedure Stop Time: 14:50 Complications none Admit VTE Documentation VTE Present on Admission: No VTE Mechan Device Prophylaxis: SCD's
[2024-04-01] MEDS: Bupivacaine Mpf 0.5% 30 ML VIAL (14:49)
--- NOTE | 2024-04-01 15:03 | PCM.POST.ANE ---
Anesthesia: Postop Eval I Current Vital Signs Temperature: 99 F Pulse Rate: 122 (pt shivering) Blood Pressure: 127/86 Respiratory Rate: 20 Pulse Ox: 100 Oxygen Delivery Method: Room Air Assessment Airway patent: Yes Spontaneous unlabored respirations: Yes Mental status: Awake and Calm nausea: No Vomiting: No Anesthesia Complication: No Fluid Hydration Crystalloid volume administer (ml): 1,000 Total IV fluid infused: 1,000 Progress Note Anesthesia document: Postop Eval 1 completed: Yes
--- NOTE | 2024-04-01 15:24 | POSTOPAN2_ITS ---
Anesthesia Postop Eval I Sum Postop Eval Completion status Anesthesia document: Postop Eval 1 completed: Yes Anesthesia Postop Eval I Summary Anesthesia Postop Eval I Summary: Anesthesia Postop Eval I: Assessment Summary Airway patent Yes 04/01/24 15:04 LANGUAGE TRANSLATOR.[email or web address] Spontaneous unlabored Yes 04/01/24 15:04 LANGUAGE TRANSLATOR.[email or web address] respirations Mental status Awake,Calm 04/01/24 15:04 LANGUAGE TRANSLATOR.WILLAMOBJonathan nausea No 04/01/24 15:04 LANGUAGE TRANSLATOR.[email or web address] Vomiting No 04/01/24 15:04 LANGUAGE TRANSLATOR.WILLAMOBJonathan Anesthesia Postop Eval I: Fluid Summary Crystalloid volume administer 1,000 04/01/24 15:04 LANGUAGE TRANSLATOR.WILLAMOBY (ml) Colloids volume administered ( ml) Blood Product volume administered (ml) Total IV fluid infused 1,000 04/01/24 15:04 LANGUAGE TRANSLATOR.DEVI Anesthesia Postop Eval I: Summary Notes Anesthesia Complication No 04/01/24 15:04 LANGUAGE TRANSLATOR.DEVI Anesthesia Complication Comment: Post-operative progress note Anesthesia: Postop Eval II Evaluation Mental status: Awake and Calm Pain Level: 1 nausea: No Vomiting: No Complications Anesthesia Complication: No
--- NOTE | 2024-04-01 15:24 | PCM.POSTANE2 ---
Anesthesia Postop Eval I Sum Postop Eval Completion status Anesthesia document: Postop Eval 1 completed: Yes Anesthesia Postop Eval I Summary Anesthesia Postop Eval I Summary: Anesthesia Postop Eval I: Assessment Summary Airway patent Yes 04/01/24 15:04 DIRECTOR OF MATERIALS MANAGEMENT.[email or web address] Spontaneous unlabored Yes 04/01/24 15:04 DIRECTOR OF MATERIALS MANAGEMENT.DEVI respirations Mental status Awake,Calm 04/01/24 15:04 DIRECTOR OF MATERIALS MANAGEMENT.WILLAMOBJonathan nausea No 04/01/24 15:04 DIRECTOR OF MATERIALS MANAGEMENT.WILLAMOBJonathan Vomiting No 04/01/24 15:04 DIRECTOR OF MATERIALS MANAGEMENT.WILLAMOBJonathan Anesthesia Postop Eval I: Fluid Summary Crystalloid volume administer 1,000 04/01/24 15:04 DIRECTOR OF MATERIALS MANAGEMENT.WILLAMOBY (ml) Colloids volume administered ( ml) Blood Product volume administered (ml) Total IV fluid infused 1,000 04/01/24 15:04 DIRECTOR OF MATERIALS MANAGEMENT.DEVI Anesthesia Postop Eval I: Summary Notes Anesthesia Complication No 04/01/24 15:04 DIRECTOR OF MATERIALS MANAGEMENT.DEVI Anesthesia Complication Comment: Post-operative progress note Anesthesia: Postop Eval II Evaluation Mental status: Awake and Calm Pain Level: 1 nausea: No Vomiting: No Complications Anesthesia Complication: No
== END 2024-04-01 16:16 | disposition home or self-care (01) ==
LOC: ED 12:18 → SDC 12:30 → ACINP 12:32
PROVIDERS: Emergency Provider Emergency Medicine; PCP Pediatrics; Visit Provider Obstetrics & Gynecology
PROC: 10T24ZZ Resection of Products of Conception, Ectopic, Percutaneous Endoscopic Approach (ICD-10-PCS; CPT 59150; principal; 2024-04-01 12:40)
DX: O00.101 Right tubal pregnancy without intrauterine pregnancy (principal); F17.210 Nicotine dependence, cigarettes, uncomplicated; O99.62 Diseases of the digestive system complicating childbirth; K21.9 Gastro-esophageal reflux disease without esophagitis
CPT/HCPCS: 58661; 00840; 76817; 80053; 84702; 85025; 86900; 86901; 88305; 99285; J7120; A4216; J2405

== ENCOUNTER 2024-05-06 03:33 | Emergency (ER) | payer MEDICAID, SELFPAY ==
[2024-05-06 03:38] VITALS: BP 105/71; PULSE 70; RESP 18; TEMP 36.8; O2SAT 100; BMI 15.4
[2024-05-06 03:58] VITALS: BP 118/93; BP 99/77; PULSE 140; PULSE 166; PULSE 91
--- NOTE | 2024-05-06 03:58 | EKG12_ITS ---
Test Reason : SYNCOPE Blood Pressure : */* mmHG Vent. Rate : 82 BPM Atrial Rate : 82 BPM P-R Int : 104 ms QRS Dur : 90 ms QT Int : 410 ms P-R-T Axes : 58 67 62 degrees QTcB Int : 479 ms Sinus rhythm with sinus arrhythmia with short [place] Otherwise normal ECG Confirmed by GILMER GODINEZ, ASYA ([id number]), acquisitions editor ROBERTH STEINER ([id number]) on 05/07/2024 8:19:23 AM Referred By: MIKI Confirmed By: ASYA SCHERER MD
--- NOTE | 2024-05-06 03:58 | CT_ITS ---
INDICATION: syncope EXAMINATION: CT BRAIN - CT Head or Brain W/O Contrast Injection TECHNIQUE: Multiple axial images were obtained of the head with sagittal and coronal reconstructed images. Individualized dose optimization techniques were used for this CT. IV contrast dosage and agent: None. COMPARISON: None. FINDINGS: BRAIN PARENCHYMA: No evidence of an acute infarct or intracranial hemorrhage. No evidence of a mass. CSF SPACES: The ventricles, sulci and subarachnoid cisterns are appropriate for age. CALVARIUM, SKULL BASE, PARANASAL SINUSES AND MASTOID AIR CELLS: No fracture. Mastoid air cells are clear. Visualized paranasal sinuses are unremarkable. ORBITS: The globes, extraocular muscles, optic nerves and retrobulbar fat are unremarkable. CT/Brain/Head without Contrast IMPRESSION: Normal noncontrast CT of the head. Electronically Signed: Yosi Luz DO at 4:45 EDT ,
--- NOTE | 2024-05-06 04:10 | EX.ED.DYSGE1 ---
HPI History of Present Illness Chief Complaint: Syncope Informant: patient and spouse/S.O. Narrative Narrative: Patient is a 23-year-old female with past medical history of GERD IBS and depression. She recently underwent a D&C approximately 5 weeks ago. She states she has been doing well from that and there is been no persistent or recurrent vaginal bleeding. She states that this evening she noted that if she got up and tried to walk across her house from room to the other she began to feel lightheaded and reported tunnel vision as well as change in hearing and then bouts of passing out. She states this has happened multiple times since roughly 8 PM. She states she has had some loose stool/diarrhea but denies bouts of nausea or vomiting. She states that there is no family history of a cardiac dysrhythmia and states she does not notice that her heart is racing or skipping beats prior to the event. She does state that she struck her head with a few bouts of the syncopal event but denies bleeding disorder or blood thinner use. At this time as the symptoms have been recurrent she presents for evaluation [facility] Medical History IBS (irritable bowel syndrome) Depression GERD (gastroesophageal reflux disease) Home Medications ?Medication ?Instructions ?Recorded ?Last Taken ?Type Prilosec 1 tab PO PRN ACID REFLUX 06/26/19 05/01/21 06:30 History valacyclovir 1 gram tablet 1,000 mg PO DAILY PRN hsv 11/11/20 05/01/21 06:30 History (Valtrex) [id number] 1 mg 1 tab PO DAILY 03/07/21 04/01/24 History tablet metronidazole 500 mg tablet 500 mg PO BID 04/01/24 03/31/24 History Allergy/AdvReac Type Severity Reaction Status Date / Time Latex, Natural Rubber AdvReac Rash Verified 05/06/24 03:43 Social History Smoking Status: Current every day smoker tobacco type: e-cigarettes ROS ROS ED Constitutional Constitutional ED: Denies chills or fever(s) Eyes Eyes: Denies diplopia ENT ENT ED: Denies rhinorrhea or sore throat Cardiovascular Cardiovascular: Reports other Details: Positive syncope ; Denies chest pain, palpitations or racing heartbeat Respiratory/Chest Respiratory/Chest: Denies cough or dyspnea Gastrointestinal Gastrointestinal: Reports diarrhea; Denies abdominal pain, nausea or vomiting Genitourinary Genitourinary ED: Denies dysuria or hematuria Musculoskeletal Musculoskeletal: Denies back pain Integumentary Denies Abrasions Neurologic Neurologic: Denies headache(s) or weakness Hematologic/Lymphatic Hematologic/Lymphatic: Denies easy bleeding or easy bruising EXAM Physical Exam Const Vital Signs: 05/06/24 03:38 05/06/24 03:43 05/06/24 03:58 Temperature 98.2 F Temperature Source Oral Pulse Rate 70 Pulse Rate [Lying] 91 Pulse Rate [Sitting (for 1 minute prior to obtaining)] 140 H Pulse Rate [Standing (for 1 minute prior to obtaining)] 166 H Respiratory Rate 18 Respiratory Effort Normal Respiratory Pattern Normal Blood Pressure 105/71 Blood Pressure [Lying] 118/93 H Blood Pressure [Sitting (for 1 minute prior to obtaining)] 99/77 Blood Pressure Mean 82 Blood Pressure Mean [Lying] 101 Blood Pressure Mean [Sitting (for 1 minute prior to obtaining)] 84 Pulse Ox 100 Oxygen Delivery Method Room Air 05/06/24 05:09 Temperature Temperature Source Pulse Rate 142 H Pulse Rate [Lying] Pulse Rate [Sitting (for 1 minute prior to obtaining)] Pulse Rate [Standing (for 1 minute prior to obtaining)] Respiratory Rate 18 Respiratory Effort Respiratory Pattern Blood Pressure 99/77 Blood Pressure [Lying] Blood Pressure [Sitting (for 1 minute prior to obtaining)] Blood Pressure Mean 84 Blood Pressure Mean [Lying] Blood Pressure Mean [Sitting (for 1 minute prior to obtaining)] Pulse Ox 100 Oxygen Delivery Method Room Air Positive well nourished and well developed General Appearance ED: well developed; Negative for pallor HEENT Reports dry mucous membranes HEENT Narrative: Mucous membranes are mildly dry and tacky No tongue or lip swelling no oral lesions no airway edema or compromise No signs of infection noted in the posterior pharynx Mouth ED: Yes dry mucous membranes Mouth: dry mucous membranes Eyes PERRL and EOMs intact bilaterally General Eye ED: Negative for pale conjunctiva or scleral icterus Neck supple Neck Narrative: No nuchal rigidity or meningeal signs No bony deformity or step-off of the cervical spine no midline tenderness to palpation Chest Wall palpation of chest normal Resp normal respiratory effort and clear to auscultation bilaterally Cardio regular rate and regular rhythm Rate: other Other Details: Heart is regular rate and rhythm without murmurs rubs or gallop Radial and carotid pulses are equal and symmetric GI normal to inspection, nondistended, normoactive bowel sounds, non-tender, non-distended and no masses Auscultation: normoactive bowel sounds Palpation: soft Back/Spine Back/Spine Narrative: No bony deformity or step-off of the thoracic or lumbar spine no midline tenderness to palpation Extremity normal to inspection Extremity Narrative: No asymmetric edema no pitting edema negative Homans' sign bilaterally Neuro oriented x3, CN's II-XII intact bilaterally and no sensory deficits noted Neuro Narrative: GCS of 15 Cranial nerves II through XII are grossly intact there are no focal neurologic deficits No pronator drift no dysmetria no truncal ataxia NIH stroke scale score of 0 No nystagmus noted Sensorium / Orientation: alert Motor Exam: strength 5/5 throughout Psych mental status grossly normal Skin no rashes or lesions noted and skin turgor normal General Skin Exam: Negative for jaundice or pallor MDM MDM MDM Narrative Medical decision making narrative: Patient arrived to the ER with stable vitals reported multiple bouts of syncope after standing and moving. This is most consistent with orthostatic hypotension/syncope. There is concern that she also could be undiagnosed postural orthostatic tachycardic syndrome. With concern for acute blood loss anemia or acute kidney injury or severe electrolyte abnormality basic labs were obtained. As she also struck her head there is concern for skull fracture versus traumatic subarachnoid or subdural hemorrhage or potential mass causing her symptoms. Therefore a CT of the head was obtained. Lab work showed no clinically significant findings. Her potassium is slightly low at 3.2 but this should not cause any clinically significant abnormality. Her EKG was normal sinus rhythm without dysrhythmia or ischemic change. Head CT revealed no acute signs of trauma or mass. Orthostatic vital signs were positive and therefore she was given IV fluids. Following the administration of IV fluid the patient was able to stand without recurrent syncopal events and therefore is otherwise safe for discharge History & Record Review Discussion w/independent historian: Patient and Significant other Lab Data Attestation: I reviewed the patient's lab results. Labs: Laboratory Results - last 24 hr 05/06/24 04:15 WBC 12.4 H RBC 4.68 Hgb 14.3 Hct 41.7 MCV 89.1 MCH 30.6 MCHC 34.3 RDW Std Deviation 40.2 RDW Coeff of Aida 12.4 Plt Count 324 MPV 10.7 Immature Gran % (Auto) 0.500 Neut % (Auto) 86.5 H Lymph % (Auto) 8.0 L [place] % (Auto) 4.8 Eos % (Auto) 0.0 Baso % (Auto) 0.2 Absolute Neuts (auto) 10.7 H Absolute Lymphs (auto) 0.99 Nucleated RBC % 0 Sodium 136 Potassium 3.2 L Chloride 104 Carbon Dioxide 24.0 Anion Gap 8 BUN 8 Creatinine 0.76 Estim Creat Clear Calc 79.99 Est GFR (MDRD) Af Amer 123 Est GFR (MDRD) Non-Af 102 BUN/Creatinine Ratio 10.6 Glucose 102 Calcium 9.3 Magnesium 2.1 Radiography Diagnostic Testing: Clinical Impression(s) from Imaging Studies Brain CT 05/06/24 03:58 IMPRESSION: Normal noncontrast CT of the head. Electronically Signed: Yosi Luz DO at 4:45 EDT , Discharge Plan Triage Chief Complaint: Syncope ED Provider: Scott Daniel Dx/Rx/DC Orders Clinical Impression: Orthostatic syncope, Hypokalemia, Depression, GERD (gastroesophageal reflux disease) Instructions: Causes of Syncope, Treating Syncope: Prevention, ED Hypotension, Orthostatic Prescriptions: No Action Prilosec 1 tab PO PRN valacyclovir [Valtrex] 1 gram tablet 1,000 mg PO DAILY PRN (Reason: hsv) Patient Comments: Take 1 tablet by mouth once daily. After completing 3 day episodic course. 1 mg Tablet 1 tab PO DAILY metronidazole 500 mg tablet 500 mg PO BID Primary Care Provider: Melissa Garner Referrals: Melissa Garner MD [Primary Care Provider] - Activity Restrictions/Additional Instructions: Please keep yourself well-hydrated and talk to your family doctor about potential cardiology referral as there is a concern that you may be developing postural orthostatic tachycardic syndrome. Return to the ER should you have any further concerns or worsening of symptoms Print Language: Jamaican Disposition Disposition: Home, Self Care
[2024-05-06 04:25] LABS: Absolute Lymphocyte Count 0.99 X10^3/uL (0.83-4.51); Absolute Neutrophil Count 10.7 X10^3/uL (2.0-7.7); Basophil# 0.03 X10^3/uL; Basophil% 0.2 % (0-1); Hematocrit 41.7 % (37-47); Hemoglobin 14.3 g/dL (12.0-15.0); Lymphocyte # 0.99 X10^3/ul (0.83-4.51); Mean Corp Hgb Conc 34.3 g/dL (32-36); Mean Corpuscular Hgb 30.6 pg (27.0-32.0); Mean Corpuscular Volume 89.1 fL (81-99); Mean Platelet Vol. 10.7 fl (6.2-12.0); Monocyte# 0.59 X10^3/uL; Monocyte% 4.8 % (0-10); NRBC Flagged by Analyzer 0 % (0-5); Neutrophil # 10.73 X10^3/uL (2.7-7.7); Neutrophil % 86.5 % (47-70); Platelet Count 324 K/mm3 (150-450); RBC Distribution Width CV 12.4 % (11.6-14.6); RBC Distribution Width SD 40.2 fl (35.1-43.9); Red Blood Count 4.68 M/mm3 (4.2-5.4); White Blood Count 12.4 K/mm3 (4.4-11.0)
[2024-05-06 04:39] LABS: Anion Gap 8 (5-15); BUN 8 mg/dL (7-18); BUN/Creat Ratio 10.6 RATIO (10-20); Calcium,Total 9.3 mg/dL (8.5-10.1); Chloride 104 mmol/L (98-107); Creatinine, Serum 0.76 mg/dL (0.55-1.02); EST Glomerular Filtration Rate 102 mL/min (>60); Est Glom Filt Rate - Afr Amer 123 mL/min (>60); Estimated Creatinine Clearance 79.99 ml/min; Glucose 102 mg/dL (74-106); Magnesium 2.1 mg/dL (1.6-2.6); Potassium 3.2 mmol/L (3.5-5.1); Sodium Level 136 mmol/L (136-145)
[2024-05-06] MEDS: 0.9% Normal Saline (1000mL) 1,000 ML 999 ML IV (05:08)
[2024-05-06 05:09] VITALS: BP 99/77; PULSE 142; RESP 18; O2SAT 100
[2024-05-06 07:00] VITALS: BP 131/104; PULSE 89; RESP 16; O2SAT 98
[2024-05-06 07:15] VITALS: BP 131/104; PULSE 89; RESP 16; TEMP 36.6; O2SAT 98
== END 2024-05-06 07:16 | disposition home or self-care (01) ==
PROVIDERS: Emergency Provider Emergency Medicine; PCP Pediatrics; Visit Provider Emergency Medicine
DX: R55 Syncope and collapse (principal); E87.6 Hypokalemia; F32.A Depression, unspecified; K21.9 Gastro-esophageal reflux disease without esophagitis; Z79.899 Other long term (current) drug therapy; F17.290 Nicotine dependence, other tobacco product, uncomplicated
CPT/HCPCS: 70450; 80048; 83735; 85025; 93005; 96360; 99283; J7030; A4216

== ENCOUNTER 2024-11-11 11:49 | Emergency (ER) | payer MEDICAID, SELFPAY ==
[2024-11-11 11:49] VITALS: BP 112/82; PULSE 98; RESP 16; TEMP 35.7; O2SAT 98; BMI 17.0
--- NOTE | 2024-11-11 13:39 | US_ITS ---
PROCEDURE: KIDNEY AND BLADDER 11/11/2024 REASON FOR EXAM: RIGHT FLANK PAIN TECHNIQUE: Bilateral renal ultrasound. COMPARISON: None. FINDINGS: Kidneys: No renal mass is seen Economy: No significant hydronephrosis is seen on either side Cysts or Masses: None Other: Ureters are not visualized. RIGHT Kidney: No sonographic finding of right renal calculus is seen. Size: 11.2 x 5.6 x 5.4 cm Cortical Thickness (if discernible): 14 mm (>6mm is normal) LEFT Kidney: A nonobstructive left renal calculus is sonographically evident inferior pole, measured at 2.6 x 2.0 x 1.1 mm.. Size: 11.0 x 5.4 x 3.6 cm Cortical Thickness (if discernible): 12 mm (>6mm is normal). The urinary bladder is not visualized, and presumably decompressed. US/Kidney and Bladder IMPRESSION: 1. Nonobstructive small left inferior renal calculus. No right-sided calculus is sonographically identified. 2. No evidence of hydronephrosis. Reading Location: [place] [address]
--- NOTE | 2024-11-11 13:40 | EDS_ITS ---
HPI History of Present Illness Chief Complaint: Flank Pain Narrative Narrative: 24-year-old female past medical history of of ruptured ectopic with right salpingectomy last year presents with right flank pain that she has had since this morning. She relates history that she was seen in urgent care for upper back pain. She was taking Tylenol which was starting to relieve her pain. She is 6 weeks gestation currently and sees SECURITY TECH's at the [facility]. She and her state that an ultrasound which did show an intrauterine . She denies any vaginal bleeding or lower pelvic pain but states that when she bends over or moves she has pain in the right flank. It is both dull and achy and then can become sharp and stabbing. She denies any fevers or chills, no nausea or vomiting, no dysuria or hematuria, unrelieved with Tylenol. [facility] Medical History IBS (irritable bowel syndrome) Depression GERD (gastroesophageal reflux disease) Home Medications ?Medication ?Instructions ?Recorded ?Last Taken ?Type Prilosec 1 tab PO PRN ACID REFLUX 05/01/21 06:30 History valacyclovir 1 gram tablet 1,000 mg PO DAILY PRN hsv 0 11/11/20 05/01/21 06:30 History (Valtrex) [id number] 1 mg 1 tab PO DAILY pregna ncy 03/07/21 04/01/24 History tablet metronidazole 500 mg tablet 500 mg PO BID 04/01/24 History
--- NOTE | 2024-11-11 13:40 | EX.ED.DYSGE1 ---
HPI History of Present Illness Chief Complaint: Flank Pain Narrative Narrative: 24-year-old female past medical history of of ruptured ectopic with right salpingectomy last year presents with right flank pain that she has had since this morning. She relates history that she was seen in urgent care for upper back pain. She was taking Tylenol which was starting to relieve her pain. She is 6 weeks gestation currently and sees CERTIFIED [employer] FACILITY OPERATOR's at the [facility]. She and her state that an ultrasound which did show an intrauterine . She denies any vaginal bleeding or lower pelvic pain but states that when she bends over or moves she has pain in the right flank. It is both dull and achy and then can become sharp and stabbing. She denies any fevers or chills, no nausea or vomiting, no dysuria or hematuria, unrelieved with Tylenol. [facility] Medical History IBS (irritable bowel syndrome) Depression GERD (gastroesophageal reflux disease) Home Medications ?Medication ?Instructions ?Recorded ?Last Taken ?Type Prilosec 1 tab PO PRN ACID REFLUX 06/26/19 05/01/21 06:30 History valacyclovir 1 gram tablet 1,000 mg PO DAILY PRN hsv 11/11/20 05/01/21 06:30 History (Valtrex) [id number] 1 mg 1 tab PO DAILY 03/07/21 04/01/24 History tablet metronidazole 500 mg tablet 500 mg PO BID 04/01/24 03/31/24 History Allergy/AdvReac Type Severity Reaction Status Date / Time Latex, Natural Rubber AdvReac Rash Verified 11/11/24 11:49 Social History Smoking Status: Current every day smoker tobacco type: e-cigarettes ROS ROS ED ROS Narrative Constitutional: No fever, no chills. Cardiovascular: No chest pain. No palpitations. No pedal edema. Respiratory: No cough, no shortness of breath. Abdominal: No abdominal pain. No nausea. No vomiting. Genitourinary: No dysuria. No hematuria. No pelvic pain. No vaginal bleeding. Musculoskeletal: No myalgias. No arthralgias. Positive right low back pain. EXAM Physical Exam Narrative Exam Narrative: Afebrile. Vital signs noted. Nontoxic-appearing. Cardiovascular examination reveals a regular rate and rhythm. Lungs are clear to auscultation bilaterally. The abdomen is soft, nontender, without guarding or rebound. Positive bowel sounds. No CVA tenderness to percussion right. Neurological examination nonfocal nonlateralizing. Const Vital Signs: 11/11/24 11:49 11/11/24 13:49 11/11/24 15:21 Temperature 96.2 F L Temperature Source Temporal Pulse Rate 98 64 82 Respiratory Rate 16 18 16 Blood Pressure 112/82 H 108/78 114/62 Blood Pressure Mean 92 88 79 Pulse Ox 98 98 100 Oxygen Delivery Method Room Air Room Air Room Air MDM MDM MDM Narrative Medical decision making narrative: The differential diagnosis includes but not limited to pyelonephritis versus ureterolithiasis versus musculoskeletal back pain. Workup is mildly limited secondary to patient's being 6 weeks gestation. I have low concern for ectopic as they state they had an ultrasound which showed an intrauterine . Urinalysis will be obtained as well as basic laboratory work to check kidney function. Ultrasound will be performed of the kidney and bladder to look for hydronephrosis. I reviewed her laboratory work and she has normal white count 11.0 with hemoglobin 12.9, hematocrit 37.9, platelet count 279. Electrolyte panel is grossly unremarkable. LFTs are normal. Urinalysis obtained and while there are 15 ketones, negative nitrites and no sign of infection with 0-5 WBCs. I do not feel antibiotics are indicated. Patient did request that urine for drugs of abuse be obtained as she is missing her drug court today. I reviewed this and it is negative. Review of the ultrasound radiology report shows no evidence of hydronephrosis on the right, no obstructing stone noted. At this point in time, I feel her back pain may be more musculoskeletal in nature. She will continue Tylenol as she is currently 6 weeks gestation. She will follow-up with her C[employer]IFIED [employer] W[employer] FACILITY OPERATOR. I feel she can be discharged safely home with follow-up. Return instructions were reviewed. Disposition is discharged home in stable condition. History & Record Review Discussion w/independent historian: Patient Additional record(s) reviewed:: Prior ED visit (Noncontributory to current chief complaint) Lab Data Attestation: I reviewed the patient's lab results. Labs: Laboratory Results - last 24 hr 11/11/24 11/11/24 13:32 15:20 WBC 11.0 RBC 4.23 Hgb 12.9 Hct 37.9 MCV 89.6 MCH 30.5 MCHC 34.0 RDW Std Deviation 43.1 RDW Coeff of Aida 13.2 Plt Count 279 MPV 10.9 Immature Gran % (Auto) 0.300 Neut % (Auto) 76.4 H Lymph % (Auto) 18.5 L [place] % (Auto) 4.2 Eos % (Auto) 0.1 Baso % (Auto) 0.5 Absolute Neuts (auto) 8.4 H Absolute Lymphs (auto) 2.04 Nucleated RBC % 0 Sodium 138 Potassium 3.6 Chloride 106 Carbon Dioxide 21.4 Anion Gap 10 BUN 5 Creatinine 0.55 L Estim Creat Clear Calc 121.32 Est GFR (MDRD) Non-Af 133 BUN/Creatinine Ratio 8.4 L Glucose 73 Calcium 8.8 Total Bilirubin 0.83 AST 18 ALT 6 Alkaline Phosphatase 39 Total Protein 6.1 Albumin 4.5 Globulin 1.5 L Albumin/Globulin Ratio 2.9 H Urine Color Straw Urine Clarity Clear Urine pH 6.5 Ur Specific [place] 1.010 Urine Protein Negative Urine Glucose (UA) Normal Urine Ketones 15 H Urine Occult Blood Negative Urine Nitrite Negative Urine Bilirubin Negative Urine Urobilinogen Normal Ur Leukocyte Esterase 25 H Urine RBC 0-5 SEEN Urine WBC 0-5 SEEN Ur Squamous Epith Cells 0-5 SEEN Urine Bacteria 0 SEEN Urine Mucus 0 SEEN Urine Opiates Screen NEGATIVE U Buprenorphine Qual NEGATIVE Ur Oxycodone Screen NEGATIVE Urine Methadone Screen NEGATIVE Urine Fentanyl Screen NEGATIVE Ur Barbiturates Screen NEGATIVE Ur Phencyclidine Scrn NEGATIVE Ur Amphetamines Screen NEGATIVE U Benzodiazepines Scrn NEGATIVE Urine Cocaine Screen NEGATIVE U Cannabinoids Screen NEGATIVE Radiography Diagnostic Testing: Clinical Impression(s) from Imaging Studies Renal Ultrasound 11/11/24 13:39 IMPRESSION: 1. Nonobstructive small left inferior renal calculus. No right-sided calculus is sonographically identified. 2. No evidence of hydronephrosis. Reading Location: [place] [address] Discharge Plan Triage Chief Complaint: Flank Pain ED Provider: Michele Mar Dx/Rx/DC Orders Clinical Impression: Right-sided back pain, Current determined by history Instructions: ED Back Pain (Acute or Chronic), ED Established ... Prescriptions: No Action Prilosec 1 tab PO PRN valacyclovir [Valtrex] 1 gram tablet 1,000 mg PO DAILY PRN (Reason: hsv) Patient Comments: Take 1 tablet by mouth once daily. After completing 3 day episodic course. 1 mg Tablet 1 tab PO DAILY metronidazole 500 mg tablet 500 mg PO BID Primary Care Provider: Melissa Garner Referrals: Melissa Garner MD [Primary Care Provider] - 3-5 Days if not improving Activity Restrictions/Additional Instructions: Follow-up with your CERTIFIED SOL[employer] W[employer]E FACILITY OPERATOR at the [facility]. Continue Tylenol as needed for pain. Return with fever, new or worsening symptoms. Print Language: Dominican Disposition Disposition: Home, Self Care
[2024-11-11 13:49] VITALS: BP 108/78; PULSE 64; RESP 18; O2SAT 98
[2024-11-11 13:56] LABS: Absolute Lymphocyte Count 2.04 X10^3/uL (0.83-4.51); Absolute Neutrophil Count 8.4 X10^3/uL (2.0-7.7); Basophil# 0.05 X10^3/uL; Basophil% 0.5 % (0-1); Eosinophil# 0.01 X10^3/uL; Eosinophils% 0.1 % (0-5); Hematocrit 37.9 % (37-47); Hemoglobin 12.9 g/dL (12.0-15.0); Lymphocyte # 2.04 X10^3/ul (0.83-4.51); Lymphocyte % 18.5 % (19-41); Mean Corpuscular Hgb 30.5 pg (27.0-32.0); Mean Corpuscular Volume 89.6 fL (81-99); Mean Platelet Vol. 10.9 fl (6.2-12.0); Monocyte# 0.46 X10^3/uL; Monocyte% 4.2 % (0-10); NRBC Flagged by Analyzer 0 % (0-5); Neutrophil # 8.44 X10^3/uL (2.7-7.7); Neutrophil % 76.4 % (47-70); Platelet Count 279 K/mm3 (150-450); RBC Distribution Width CV 13.2 % (11.6-14.6); RBC Distribution Width SD 43.1 fl (35.1-43.9); Red Blood Count 4.23 M/mm3 (4.2-5.4)
[2024-11-11 14:23] LABS: ALB/GLOB Ratio 2.9 RATIO (0.9-2.4); AST(SGOT) 18 U/L (<=31); Alanine Aminotransfer ALT/SGPT 6 U/L (<=34); Albumin, Serum 4.5 g/dL (3.5-5.0); Alkaline Phosphatase 39 U/L (35-104); Anion Gap 10 (5-15); BUN 5 mg/dL (4-19); BUN/Creat Ratio 8.4 RATIO (10-20); Calcium,Total 8.8 mg/dL (7.6-11.0); Carbon Dioxide 21.4 mmol/L (21.0-32.0); Chloride 106 mmol/L (98-108); Creatinine, Serum 0.55 mg/dL (0.70-1.20); EST Glomerular Filtration Rate 133 (>60); Estimated Creatinine Clearance 121.32 ml/min (50-250); Globulin 1.5 g/dL (2.2-4.2); Glucose 73 mg/dL (70-99); Potassium 3.6 mmol/L (3.3-5.1); Protein, Total 6.1 g/dL (5.9-8.4); Sodium Level 138 mmol/L (133-145); Total Bilirubin 0.83 mg/dL (0.00-1.30)
[2024-11-11 15:21] VITALS: BP 114/62; PULSE 82; RESP 16; O2SAT 100
[2024-11-11 15:25] LABS: Bacteria 0 SEEN /hpf (None Seen); Mucous, Urine 0 SEEN /hpf (<or=2+)
[2024-11-11 15:33] LABS: Color, Urine Straw (Yellow); Glucose, Dipstick Normal (Normal); Ketone-Dipstick 15 mg/dl (Negative); Leukocyte Esterase-Dipstick 25 /ul (Negative); Nitrite-Dipstick Negative (Negative); Occult Blood-Urine Negative /ul (Negative); Protein-Dipstick Negative (Negative); Urine Bilirubin Dipstick Negative (Negative); Urine Clarity Clear (Clear); Urine Urobilinogen Normal (Normal); Urine pH 6.5 (5.0 - 8.0)
[2024-11-11 16:13] LABS: White Blood Cells 0-5 SEEN /hpf (0-5)
[2024-11-11 16:14] LABS: Red Blood Cells-Urine 0-5 SEEN /hpf (0-5); Squamous Epithelial Cells - UA 0-5 SEEN /hpf (5-10)
[2024-11-11 16:20] LABS: Amphetamine Urine NEGATIVE (<1000 ng/mL); Barbiturate Urine NEGATIVE (< 200 ng/mL); Benzodiazepine Urine NEGATIVE (< 200 ng/mL); Buprenorphine Urine NEGATIVE (< 200 ng/mL); Cocaine Urine NEGATIVE (< 300 ng/mL); Fentanyl, Urine NEGATIVE; Methadone Urine NEGATIVE (< 300 ng/mL); Opiates Urine NEGATIVE (< 300 ng/mL); Oxycodone, Urine NEGATIVE (< 100 ng/mL); PCP Urine NEGATIVE (< 25 ng/mL); THC Urine NEGATIVE (< 50 ng/mL)
[2024-11-11 16:39] VITALS: BP 110/77; PULSE 82; RESP 16; TEMP 37; O2SAT 100
== END 2024-11-11 16:44 | disposition home or self-care (01) ==
PROVIDERS: Emergency Provider Emergency Medicine; PCP Pediatrics; Visit Provider Emergency Medicine
DX: O99.611 Diseases of the digestive system complicating pregnancy, first trimester (principal); R10.9 Unspecified abdominal pain; M54.9 Dorsalgia, unspecified; Z3A.01 Less than 8 weeks gestation of pregnancy; O99.891 Other specified diseases and conditions complicating pregnancy; K21.9 Gastro-esophageal reflux disease without esophagitis; Z79.899 Other long term (current) drug therapy; O99.331 Smoking (tobacco) complicating pregnancy, first trimester; F17.290 Nicotine dependence, other tobacco product, uncomplicated
CPT/HCPCS: 76770; 80053; 80307; 81001; 85025; 99282; A4216

== ENCOUNTER 2025-05-14 13:55 | Outpatient (CLI) | payer MEDICAID, SELFPAY ==
[2025-05-14 14:03] VITALS: BMI 22.4
--- OUTSIDE RECORDS SUMMARY | 2025-05-14 14:04 | XMS RPT_ITS | CCD ---
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 08-06-2019 Episodic Hemorrhage during ; abruptio placenta; placenta previa (20 sources) Threatened miscarriage in first trimester; Translations: [Threatened ] Onset: 03-26-2024 Resolved: 12-28-2024 03-26-2024 Episodic Immunizations and screening for infectious disease (9 sources) Patient encounter status; Translations: [Encounter for screening for infections with a predominantly sexual mode of transmission] Onset: 11-30-2024 Episodic Other complications of (20 sources) Anemia of ; Translations: [Anemia complicating , second trimester] Onset: 05-18-2019 Resolved: 08-06-2019 08-06-2019 Chronic Other complications of (10 sources) Nausea and vomiting; Translations: [Vomiting of , unspecified] Onset: 11-01-2020 11-01-2020 Episodic Other complications of (20 sources) Abnormality of organs AND/OR soft tissues of pelvis affecting ; Translations: [Maternal care for cervical incompetence, second trimester] Onset: 03-15-2021 Resolved: 08-12-2022 03-17-2021 Episodic Other complications of (20 sources) Vomiting of , unspecified; Translations: [Unspecified vomiting of , unspecified as to episode of care or not applicable] Onset: 11-01-2020 Resolved: 11-30-2024 08-12-2022 Episodic Other complications of (2 sources) Supervision of other high risk pregnancies, unspecified trimester; Translations: [Hx of delivery, currently ([facility])] Onset: 12-28-2024 Episodic Other infections; including parasitic (20 sources) History of sexually transmitted disease; Translations: [Personal history of other infectious and parasitic diseases] Onset: 11-01-2020 05-09-2021 Episodic Other infections; including parasitic (1 source) Personal history of other infectious and parasitic diseases; Translations: [History of herpes genitalis] Onset: 05-09-2021 Episodic Other and delivery including normal (20 sources) Dichorionic diamniotic twin ; Translations: [Twin , dichorionic/diamniot ic, second trimester] Onset: 02-13-2021 Resolved: 06-03-2021 05-02-2021 Episodic Comment on above: @ 31&1 Other upper respiratory infections (3 sources) Pharyngitis; Translations: [Acute pharyngitis, unspecified] Onset: 11-24-2024 Episodic Polyhydramnios and other problems of amniotic cavity (20 sources) premature rupture of membranes ; Translations: [ premature rupture of membranes, unspecified as to length of time between rupture and onset of labor, unspecified trimester] Onset: 05-02-2021 Resolved: 08-12-2022 05-09-2021 Episodic Residual codes; unclassified (8 sources) History of clinical finding in subject; Translations: [Personal history of other specified conditions] Onset: 02-04-2019 03-17-2021 Episodic Residual codes; unclassified (20 sources) FH: Russel's chorea; Translations: [Family history of epilepsy and other diseases of the nervous system] Onset: 02-04-2019 02-04-2019 Episodic Residual codes; unclassified (1 source) Family history of epilepsy and other diseases of the nervous system; Translations: [Family history of Russel's disease] Onset: 12-28-2024 Episodic Residual codes; unclassified (1 source) 16 weeks gestation of ; Translations: [16 weeks gestation of (HCC)] Onset: 01-26-2025 Episodic Residual codes; unclassified (1 source) 8 weeks gestation of ; Translations: [8 weeks gestation of (HCC)] Onset: 12-29-2024 Episodic Residual codes; unclassified (1 source) 12 weeks gestation of ; Translations: [12 weeks gestation of ([facility])] Onset: 12-28-2024 Episodic Residual codes; unclassified (1 source) Personal history of other complications of , childbirth and the puerperium; Translations: [History of ectopic ] Onset: 10-25-2024 Episodic Screening and history of mental health and substance abuse codes (20 sources) H/O: depression; Translations: [Personal history of other mental and behavioral disorders] Onset: 02-04-2019 Resolved: 08-06-2019 03-17-2021 Episodic Sprains and strains (2 sources) Lower back injury; Translations: [Strain of muscle, fascia and tendon of lower back, initial encounter] Onset: 12-18-2023 12-22-2023 Episodic Substance-related disorders (20 sources) History of clinical finding in subject; Translations: [History of marijuana use] Onset: 02-04-2019 Resolved: 03-11-2025 03-17-2021 Chronic Syncope (1 source) Syncope and collapse; Translations: [Syncope and collapse] Onset: 05-27-2024 Episodic Viral infection (3 sources) Viral disease; Translations: [Viral infection, unspecified] Onset: 11-24-2024 Episodic Results Test Name Value Interpretation Reference Range Facility Bacteria Ur Culton 5 Bacteria identified Cx Nom (U) ORGANISM ID: 1 >=100,000 CFU/ml Proteus vulgaris ORGANISM ID: 1 (PROTEUS VULGARIS) ------ ANTIBIOTIC INTERPRETATION ROWDY STATUS REFERENCE RANGE ------ Ampicillin R >=32 F Susceptible <=8 , Intermediate >8 , Resistant >16 Cefazolin R >=64 F Susceptible 0-16 , Intermediate <0 or >16 , Resistant >16 For uncomplicated urinary tract infections, cefazolin results can be used to predict susceptibility or resistance to cephalexin. Ceftriaxone S <=1 F Susceptible <=1 , Intermediate >1 , Resistant >=4 Cefepime S <=1 F Susceptible <=2 , Susceptible-Dose Dependent >2 , Resistant >=16 Ertapenem S <=0.5 F Susceptible <=0.5 , Intermediate >.5 , Resistant >1 Meropenem S <=0.25 F Susceptible <=1 , Intermediate >1 , Resistant >2 Ampicillin/Sulbact S 8 F Susceptible <=8 , Intermediate >8 , Resistant >16 Piperacillin/Tazobac S <=4 F Susceptible <16 , Susceptible-Dose Dependent >=16 , Resistant >=32 Gentamicin S <=1 F Susceptible <=2 , Intermediate >2 , Resistant >=8 Tobramycin S <=1 F Susceptible <4 , Intermediate >=4 , Resistant >=8 Trimeth sulfameth S <=20 F Susceptible <=40 , Resistant >40 Ciprofloxacin S <=0.25 F Susceptible <0.5 , Intermediate >=.5 , Resistant >=1 Nitrofurantoin R 128 F Susceptible <=32 , Intermediate >32 , Resistant >64 Abnormal [facility] Comment on above: Performed By: #### 6 30-4 ####[facility] LABCLIA [id number] [place] [id number] [place] CNPNon 04-15-2025 CNPN Telephone (OGFVWE) BARBARA SCHWAB ([id number]) 4 F Date Time Provider Department 04/15/25 NURSE TOOL DIE MAKER [facility] [place] [facility] During your visit today, we recorded the following information about you: Donaldo Desai, RN 04/15/2025 1:30 PM Signed 3rd risk assessment form submitted 04/15/25 Donaldo Desai RN Allergies As of Date: 04/15/2025 Noted Allergy Reaction ADHESIVE TAPE (ROSINS) 02/04/2014 2 - Rash LATEX 2 - Rash Date Reviewed: 04/08/2025 Reviewed by: aNncy Atkins, LIO - Fully Assessed Reason for Visit: PRAF [4193] Prescriptions as of 04/15/2025 - melatonin 3 mg tablet TAKE 2 TABLETS BY MOUTH EVERY NIGHT AT BEDTIME NEEDED for sleep - aspirin, enteric coated (ECOTRIN LOW STRENGTH) 81 mg EC tablet Take 1 tablet by mouth once daily. - valACYclovir (VALTREX) 1 gram tablet Take 1 tablet by mouth as needed. - Zslcnqqs-Vs-Jzr-Fe-FA tab Take 1 tablet by mouth once daily. - escitalopram oxalate (LEXAPRO) 10 mg tablet Take 10 mg by mouth once daily. Problem List As Of Date 04/15/2025 Noted Resolved Supervision of high risk , antepartum *02/04/2019 History of marijuana use [F12.91] 02/04/2019 03/11/2025 Quit smoking [Z87.891] 02/04/2019 08/06/2019 History of depression [Z86.59] 02/04/2019 Family history of [place]'s disease [Z82.0] 02/04/2019 Patient request for diagnostic testing [Z01.89] 02/04/2019 08/06/2019 Anemia during in second trimester [O9*05/18/2019 08/06/2019 Threatened premature labor in third trimester [*06/18/2019 08/06/2019 delivery, delivered [O60.10X0] 08/06/2019 08/12/2022 Hx of delivery, currently ([facility]*11/01/2020 History of herpes genitalis [Z86.19] 11/01/2020 Nausea/vomiting in ([facility]) [O21.9] 11/30/2024 11/30/2024 Dichorionic diamniotic twin in second*02/13/2021 06/03/2021 Cervical insufficiency during in seco*03/15/2021 08/12/2022 Threatened labor, second trimester [O47*03/15/2021 08/12/2022 premature rupture of membranes [O42.919]05/02/2021 08/12/2022 Threatened miscarriage in early ([facility])*03/26/2024 12/28/2024 Urinary tract infection without hematuria [N39.*02/23/2025 Abnormal glucose complicating ([facility]) [*04/08/2025 Antepartum anemia complicating in thi*04/08/2025 Encounter Status:Closed by DONALDO DESAI on 04/15/25 Normal [facility] CBC panel Auto (Bld)on 04-08 Erythrocyte distribution width (RBC) [Ratio] 12.4 % Normal 11.5-15.0 [facility] Comment on above: Order Comment: Speci men Type: BLOOD SPECIMENOrdering Facility: [facility] Address: [address] [place] [address] [place] [address] Performed By: #### 5 8410-2 ####[facility] [id number] [place] [id number] [place] Hematocrit (Bld) [Volume fraction] 28.6 % Low 36.0-46.0 [facility] Comment on above: Order Comment: Speci men Type: BLOOD SPECIMENOrdering Facility: [facility] Address: [address] [place] [address] Performed By: #### 5 8410-2 ####[facility] [id number] [place] [address] [place] Hemoglobin (Bld) [Mass/Vol] 9.7 g/dL Low 11.5-15.5 [facility] Comment on above: Order Comment: Speci men Type: BLOOD SPECIMENOrdering Facility: [facility] Address: [address] [place] [address] Performed By: #### 5 8410-2 ####[facility] [id number] [place] [address] [place] MCH (RBC) [Entitic mass] 28.9 pg Normal 26.0-34.0 [facility] Comment on above: Order Comment: Speci men Type: BLOOD SPECIMENOrdering Facility: [facility] Address: [address] [place] [address] Performed By: #### 5 8410-2 ####[facility] [id number] [place] [address] [place] MCHC (RBC) [Mass/Vol] 33.9 g/dL Normal 30.5-36.0 [facility] Comment on above: Order Comment: Speci men Type: BLOOD SPECIMENOrdering Facility: [facility] Address: [address] [place] [address] Performed By: #### 5 8410-2 ####[facility] [id number] [place] [address] [place] MCV (RBC) [Entitic vol] 85.1 fL Normal 80.0-100.0 [facility] Comment on above: Order Comment: Speci men Type: BLOOD SPECIMENOrdering Facility: [facility] Address: [address] [place] [address] Performed By: #### 5 8410-2 ####[facility] MARCEL[facility]AKLANDSAMINA [id number] [place] [address] [place] Nucleated RBC (Bld) [#/Vol] 10*3/uL Normal <0.01 [facility] Comment on above: Order Comment: Speci men Type: BLOOD SPECIMENOrdering Facility: [facility] Address: [address] [place] [address] Performed By: #### 5 8410-2 ####[facility] [id number] [place] [address] [place] Platelet mean volume (Bld) [Entitic vol] 10.0 fL Normal 9.0-12.7 [facility] Comment on above: Order Comment: Speci men Type: BLOOD SPECIMENOrdering Facility: [facility] Address: [address] [place] [address] Performed By: #### 5 8410-2 ####[facility] [id number] [place] [address] [place] Platelets (Bld) [#/Vol] 233 10*3/uL Normal 150-400 [facility] Comment on above: Order Comment: Speci men Type: BLOOD SPECIMENOrdering Facility: [facility] Address: [address] [place] [address] Performed By: #### 5 8410-2 ####[facility] [id number] [place] [address] [place] RBC (Bld) [#/Vol] 3.36 10*6/uL Low 3.90-5.20 [facility] Comment on above: Order Comment: Speci men Type: BLOOD SPECIMENOrdering Facility: [facility] Address: [address] [place] [address] Performed By: #### 5 8410-2 ####[facility] [id number] [place] [address] [place] WBC (Bld) [#/Vol] 12.55 10*3/uL High 3.70-11.00 [facility] Comment on above: Order Comment: Speci men Type: BLOOD SPECIMENOrdering Facility: [facility] Address: [address] [place] [address] Performed By: #### 5 8410-2 ####[facility] [id number] [place] [address] [place] Ferritin SerPl-mCncon 2024 Ferritin [Mass/Vol] 9.8 ng/mL Low 14.7-205.1 [facility] Comment on above: Order Comment: Speci men Type: BLOOD SPECIMENOrdering Facility: [facility] Address: [address] [place] [address] Performed By: #### 2 276-4, 72895-9 ####[facility] LABCLIA [id number] [place] [address] [place] GESTATIONAL GLUCOSE SCREEN, 1-HOUR, 50 GRAM, NON-FASTINGon 04-08-2025 Glucose [Mass/Vol] 153 mg/dL High 74-134 [facility] Comment on above: Order Comment: Speci men Type: BLOOD SPECIMENOrdering Facility: [facility] Address: [address] [place] [address] Result Comment: [facility] Congress of Obstetricians and Gynecologists (Noelle/Elaina) guidelines state a gestational diabetes mellitus positive screen is made, in women not previously diagnosed with overt diabetes, when the 1 hr plasma glucose level is equal to or above 140 mg/dL. The [facility] Block Bolter Mule Operator and [facility] recommends a 135 mg/dL cutoff. Performed By: #### G LTGST ####[facility] [id number] [place] [address] [place] Iron and Iron binding capaci ty panelon 04-08-2025 Iron [Mass/Vol] 22 ug/dL Low 41-186 [facility] Comment on above: Order Comment: Speci men Type: BLOOD SPECIMENOrdering Facility: [facility] Address: [address] [place] [address] Performed By: #### 2 276-4, 22297-6 ####[facility] LABCLIA [id number] [place] [address] [place] Iron binding capacity [Mass/Vol] 487 ug/dL High 232-386 [facility] Comment on above: Order Comment: Speci men Type: BLOOD SPECIMENOrdering Facility: [facility] Address: [address] [place] [address] Performed By: #### 2 276-4, 19531-4 ####[facility] LABCLIA [id number] [place] [address] [place] Iron/TIBC [Molar ratio] 4.5 % Low 15.0-57.0 [facility] Comment on above: Order Comment: Speci men Type: BLOOD SPECIMENOrdering Facility: [facility] Address: [address] [place] [address] Performed By: #### 2 276-4, 49373-1 ####[facility] LABCLIA [id number] [place] [address] [place] Reagin and Treponema pallidu m IgG and IgM [Interp]on 04-08-2025 T. pallidum IgG+IgM IA Ql (S) Non-Reactive Normal Nonreactive [facility] Comment on above: Order Comment: Speci men Type: BLOOD SPECIMEN Ordering Facility: [facility] Address: [address] [place] [address] Performed By: #### 7 3752-8 #### [facility] CLIA [id number] [address] [place] [address] [place] Reagin+T pallidum IgG+IgM Se rPl-Impon 04-08-2025 Reagin and Treponema pallidum IgG and IgM [Interp] Cannot exclude recent Treponemal infection if specimen collected within 7-10 days after appearance of suspect lesions or 2-3 weeks after an exposure. Clinical correlation is required. Normal [facility] Comment on above: Order Comment: Speci men Type: BLOOD SPECIMEN Ordering Facility: [facility] Address: [address] [place] [address] Performed By: #### 7 3752-8 #### [facility] CLIA [id number] [address] [place] [address] [place] CNOVon 03-28-2025 CNOV Office Visit ([facility]OUCA) BARBARA SCHWAB ([id number]) 4 F Date Time Provider Department 03/28/25 9:15 AM ESHA PORTER During your visit today, we recorded the following information about you: Temperature Pulse Respiration Blood pressure 97.7 degrees 110/minute 18/minute 116/82 Weight 58.8 kg Esha Porter APRN.WELDING MACHINE OPERATOR FRICTION 03/28/2025 9:44 AM Signed [facility] Subjective Barbara Feliciano Zaheer is a 24 year old female. Patient presents with: Cough: Cough, ST, congestion, bodyaches and GUPTA x 3 days Cough The patient is a 24-year-old female presenting with cough, sore throat, congestion, body aches, and headache x3 days. Upper Respiratory Symptoms: - Cough, sore throat, congestion, body aches, and headache x3 days. - Odynophagia. - Initially thought symptoms were due to allergies. - also experiencing similar symptoms. - Denies dyspnea or chest pain. - Unable to take Motrin due to . Review of Systems Respiratory: Positive for cough. Ears/Nose/Mouth/Throa t: (+) sore throat, (+) odynophagia, (+) nasal congestion Cardiovascular: (-) chest pain Respiratory: (+) cough, (-) shortness of breath Musculoskeletal: (+) myalgia Neurological: (+) headache Objective BP 116/82 Pulse 110 Temp 36.5 ?C (97.7 ?F) (Tympanic) Resp 18 Wt 58.8 kg (129 lb 10.1 oz) LMP 10/01/2024 SpO2 99% BMI 20.92 kg/m? Physical Exam General: No acute distress. HEENT: Mild pharyngeal erythema, no erythema or swelling in ears, no lymphadenopathy. CV: Regular heart sounds. Resp: Lungs clear to auscultation. { 1. Sore throat (J02.9) - Acute viral upper respiratory infection; strep test negative. - Supportive care recommended with therapies safe for . - Patient educated on expected course and advised to monitor for worsening symptoms. - Patient agrees with care plan. and Recording using [employer] software for draft documentation of the visit was discussed with the patient/authorized marketing sales representative; all questions welcomed and answered. Patient/authorized marketing sales representative agreed to proceed History and Record Review External record(s) reviewed: no prior records. Disposition The patient was discharged. Procedures Allergies As of Date: 03/28/2025 Noted Allergy Reaction ADHESIVE TAPE (ROSINS) 02/04/2014 2 - Rash LATEX 2 - Rash Date Reviewed: 03/28/2025 Reviewed by: Rufina Barron LPN - Fully Assessed Reason for Visit: Cough [28] Cmt: Cough, ST, congestion, bodyaches and GUPTA x 3 days Primary Visit Diagnosis:Sore throat [J02.9] Order(s):STREP A MOLECULAR (POC) [9291060] Order #: [id number] #:[id number] Prescriptions as of 03/28/2025 - melatonin 3 mg tablet TAKE 2 TABLETS BY MOUTH EVERY NIGHT AT BEDTIME NEEDED for sleep - aspirin, enteric coated (ECOTRIN LOW STRENGTH) 81 mg EC tablet Take 1 tablet by mouth once daily. - valACYclovir (VALTREX) 1 gram tablet Take 1 tablet by mouth as needed. - Lstxvnbb-Hi-Hhl-Fe-FA tab Take 1 tablet by mouth once daily. - escitalopram oxalate (LEXAPRO) 10 mg tablet Take 10 mg by mouth once daily. Problem List As Of Date 03/28/2025 Noted Resolved Supervision of high risk , antepartum *02/04/2019 History of marijuana use [F12.91] 02/04/2019 03/11/2025 Quit smoking [Z87.891] 02/04/2019 08/06/2019 History of depression [Z86.59] 02/04/2019 Family history of Russel's disease [Z82.0] 02/04/2019 Patient request for diagnostic testing [Z01.89] 02/04/2019 08/06/2019 Anemia during in second trimester [O9*05/18/2019 08/06/2019 Threatened premature labor in third trimester [*06/18/2019 08/06/2019 delivery, delivered [O60.10X0] 08/06/2019 08/12/2022 Hx of delivery, currently ([facility]*11/01/2020 History of herpes genitalis [Z86.19] 11/01/2020 Nausea/vomiting in (HCC) [O21.9] 11/30/2024 11/30/2024 Dichorionic diamniotic twin in second*02/13/2021 06/03/2021 Cervical insufficiency during in seco*03/15/2021 08/12/2022 Threatened labor, second trimester [O47*03/15/2021 08/12/2022 premature rupture of membranes [O42.919]05/02/2021 08/12/2022 Threatened miscarriage in early (HCC)*03/26/2024 12/28/2024 Urinary tract infection without hematuria [N39.*02/23/2025 Letter Text Encounter Status:Closed by ESHA PORTER on 03/28/25 Normal [facility] Bacteria Ur Culton 5 Bacteria identified Cx Nom (U) ORGANISM ID: 1 10,000 -<50,000 CFU/ml Mixed microbiota No further workup. Mixed microbiota can be due to???urine???contamin ation with skin bacteria at time of collection or presence of a long-term urinary catheter. If a new culture is needed, please consider re-education of the patient on proper midstream collection technique or straight catheterization for???urine???collect ion. Normal [facility] Comment on above: Performed By: #### 6 30-4 ####[facility] LABCLIA [id number] [place] [address] [place] UA DIP, URINE (POC)on 2024 BILIRUBIN UA (POCT) Negative Negative [facility] CLARITY UA (POCT) Clear [facility] COLOR UA (POCT) Other [facility] GLUCOSE UA (POCT) Negative Negative mg/dL [facility] Hemoglobin Ql (U) Negative Negative [facility] Interpretation and review of laboratory results Abnormal [facility] KETONE UA (POCT) Negative Negative mg/dL [facility] LEUKOCYTES UA (POCT) Moderate Abnormal Negative [facility] NITRITE UA (POCT) Negative Negative [facility] PH UA (POCT) 6.5 4.5 - 8.0 [facility] Protein Ql (U) Negative Negative mg/dL [facility] SPECIFIC GRAVITY UA (POCT) <=1.005 Abnormal 1.005 - 1.030 [facility] UROBILINOGEN UA (POCT) 0.2 Luz Maria l E.U./dL [facility] Location:[facility], [address], [place], [place], [id number] [place] [address] POINT OF CARE [facility] CBC panel Auto (Bld)on 03-14 Erythrocyte distribution width (RBC) [Ratio] 13.2 % 11.5 - 15.0 % [facility] Hematocrit (Bld) [Volume fraction] 33.6 % Low 36.0 - 46.0 % [facility] Hemoglobin (Bld) [Mass/Vol] 11.3 g/dL Low 11.5 - 15.5 g/dL [facility] Interpretation and review of laboratory results Abnormal [facility] MCH (RBC) [Entitic mass] 30.0 pg 26.0 - 34.0 pg [facility] MCHC (RBC) [Mass/Vol] 33.6 g/dL 30.5 - 36.0 g/dL [facility] MCV (RBC) [Entitic vol] 89.1 fL 80.0 - 100.0 fL [facility] Nucleated RBC (Bld) [#/Vol] NINF [facility] Platelet mean volume (Bld) [Entitic vol] 9.9 fL 9.0 - 12.7 fL [facility] Platelets (Bld) [#/Vol] 243 10*3/uL [facility] RBC (Bld) [#/Vol] 3.77 10*6/uL Low 3.90 - 5.2 0 m/uL [facility] WBC (Bld) [#/Vol] 11.18 10*3/[facility] Erythrocyte distribution width (RBC) [Ratio] 13.2 % Normal 11.5-15.0 [facility] Comment on above: Order Comment: Speci men Type: BLOOD SPECIMENOrdering Facility: [facility] Address: [address] [place] [address] Performed By: #### 5 8410-2 ####[facility] [id number] [place] [address] [place] Hematocrit (Bld) [Volume fraction] 33.6 % Low 36.0-46.0 [facility] Comment on above: Order Comment: Speci men Type: BLOOD SPECIMENOrdering Facility: [facility] Address: [address] [place] [address] Performed By: #### 5 8410-2 ####[facility] [id number] [place] [address] [place] Hemoglobin (Bld) [Mass/Vol] 11.3 g/dL Low 11.5-15.5 [facility] Comment on above: Order Comment: Speci men Type: BLOOD SPECIMENOrdering Facility: [facility] Address: [address] [place], [place] [address] Performed By: #### 5 8410-2 ####[facility] [id number] [place] [address] [place] MCH (RBC) [Entitic mass] 30.0 pg Normal 26.0-34.0 [facility] Comment on above: Order Comment: Speci men Type: BLOOD SPECIMENOrdering Facility: [facility] Address: [address] [place] [address] Performed By: #### 5 8410-2 ####[facility] MARCELOPrestonNCLIEN [id number] [place] [address] [place] MCHC (RBC) [Mass/Vol] 33.6 g/dL Normal 30.5-36.0 [facility] Comment on above: Order Comment: Speci men Type: BLOOD SPECIMENOrdering Facility: [facility] Address: [address] [place] [address] Performed By: #### 5 8410-2 ####[facility] [id number] [place] [address] [place] MCV (RBC) [Entitic vol] 89.1 fL Normal 80.0-100.0 [facility] Comment on above: Order Comment: Speci men Type: BLOOD SPECIMENOrdering Facility: [facility] Address: [address] [place] [address] Performed By: #### 5 8410-2 ####[facility] [id number] [place] [address] [place] Nucleated RBC (Bld) [#/Vol] 10*3/uL Normal <0.01 [facility] Comment on above: Order Comment: Speci men Type: BLOOD SPECIMENOrdering Facility: [facility] Address: [address] [place] [address] Performed By: #### 5 8410-2 ####[facility] [id number] [place] [address] [place] Platelet mean volume (Bld) [Entitic vol] 9.9 fL Normal 9.0-12.7 [facility] Comment on above: Order Comment: Speci men Type: BLOOD SPECIMENOrdering Facility: [facility] Address: [address] [place] [address] Performed By: #### 5 8410-2 ####[facility] MARCELOWNCLIA [id number] [place] [address] [place] Platelets (Bld) [#/Vol] 243 10*3/uL Normal 150-400 [facility] Comment on above: Order Comment: Speci men Type: BLOOD SPECIMENOrdering Facility: [facility] Address: [address] [place] [address] Performed By: #### 5 8410-2 ####[facility]CL[facility] [id number] [place] [address] [place] RBC (Bld) [#/Vol] 3.77 10*6/uL Low 3.90-5.20 [facility] Comment on above: Order Comment: Speci men Type: BLOOD SPECIMENOrdering Facility: [facility] Address: [address] [place] [address] Performed By: #### 5 8410-2 ####[facility]CL[facility] [id number] [place] [address] [place] WBC (Bld) [#/Vol] 11.18 10*3/uL High 3.70-11.00 [facility] Comment on above: Order Comment: Speci men Type: BLOOD SPECIMENOrdering Facility: [facility] Address: [address] [place] [address] Performed By: #### 5 8410-2 ####[facility] [id number] [place] [address] [place] [facility] [place] Comprehensive metabolic 2000 panelOrdered By: Jessica Carey on 03-14-2025 Albumin [Mass/Vol] 3.8 g/dL Low 3.9 - 4.9 g/dL [facility] ALP [Catalytic activity/Vol] 65 U/L 34 - 123 U/L [facility] ALT [Catalytic activity/Vol] U/L Low 7 - 38 U/L [facility] Anion gap [Moles/Vol] 11 mmol/L 8 - 15 mmol/L [facility] AST [Catalytic activity/Vol] 11 U/L Low 13 - 35 U/L [facility] Bilirubin [Mass/Vol] 0.3 mg/dL 0.2 - 1 .3 mg/dL [facility] Calcium [Mass/Vol] 8.8 mg/dL 8.5 - 10. 2 mg/dL [facility] Chloride [Moles/Vol] 101 mmol/L 98 - 10 7 mmol/L [facility] CO2 [Moles/Vol] 25 mmol/L 22 - 30 mmol/L [facility] Creatinine [Mass/Vol] 0.39 mg/dL Low 0.58 - 0.96 mg/dL [facility] GFR/1.73 sq M.predicted among non-blacks MDRD (S/P/Bld) [Vol rate/Area] 145 mL/min/{1.73_m2} - PINF [facility] Comment on above: Estimated Glomerular Filtration Rate (eGFR) is calculated using the 2020 CKD-EPI creatinine equation. This equation utilizes serum creatinine, sex, and age as parameters. The creatinine assay has traceable calibration to isotope dilution-mass spectrometry. Refer to KDIGO guidelines for clinical interpretation. In patients with unstable renal function, e.g. those with acute kidney injury, the eGFR may not accurately reflect actual GFR. Glucose [Mass/Vol] 77 mg/dL 74 - 99 mg/dL [facility] Comment on above: The [place] Diabete s Association (ADA) provides guidance for cutoff values for fasting glucose and random glucose. The ADA defines fasting as no caloric intake for at least 8 hours. Fasting plasma glucose results between 100 to 125 mg/dL indicate increased risk for diabetes (prediabetes). Fasting plasma glucose results greater than or equal to 126 mg/dL meet the criteria for diagnosis of diabetes. In the absence of unequivocal hyperglycemia, results should be confirmed by repeat testing. In a patient with classic symptoms of hyperglycemia or hyperglycemic crisis, random plasma glucose results greater than or equal to 200 mg/dL meet the criteria for diagnosis of diabetes. Reference: Standards of Medical Care in Diabetes 2016, [place] Diabetes Association. Diabetes Care. 2016.39(Suppl 1). Interpretation and review of laboratory results Abnormal [facility] Potassium [Moles/Vol] 3.5 mmol/L Low 3.7 - 5.1 mmol/L [facility] Protein [Mass/Vol] 6.3 g/dL 6.3 - 8.0 g/dL [facility] Sodium [Moles/Vol] 137 mmol/L 136 - 144 mmol/L [facility] Urea nitrogen [Mass/Vol] 5 mg/dL Low 7 - 21 mg/dL [facility] Comprehensive metabolic 2000 panelon 03-14-2025 Albumin [Mass/Vol] 3.8 g/dL Low 3.9-4.9 [facility] Comment on above: Order Comment: Speci men Type: BLOOD SPECIMENOrdering Facility: [facility] Address: [address] [place] [address] Performed By: #### 2 4323-8 ####[facility]ILIANO MILLTOWNCLIA [id number] [place] [address] [place] ALP [Catalytic activity/Vol] 65 U/L Normal 34-123 [facility] Comment on above: Order Comment: Speci men Type: BLOOD SPECIMENOrdering Facility: [facility] Address: [address] [place] [address] Performed By: #### 2 4323-8 ####[facility] MILLTOWNCLIA [id number] [place] [address] [place] ALT [Catalytic activity/Vol] U/L Low 7-38 [facility] Comment on above: Order Comment: Speci men Type: BLOOD SPECIMENOrdering Facility: [facility] Address: [address] [place] [address] Performed By: #### 2 4323-8 ####[facility] MILLTOWNCLIA [id number] [place] [address] [place] Anion gap [Moles/Vol] 11 mmol/L Normal 8-15 [facility] Comment on above: Order Comment: Speci men Type: BLOOD SPECIMENOrdering Facility: [facility] Address: [address] [place] [address] Performed By: #### 2 4323-8 ####[facility] MILLTOWNCLIA [id number] [place] [address] [place] AST [Catalytic activity/Vol] 11 U/L Low 13-35 [facility] Comment on above: Order Comment: Speci men Type: BLOOD SPECIMENOrdering Facility: [facility] Address: [address] [place] [address] Performed By: #### 2 4323-8 ####[facility]ENTERWNELIA [id number] [place] [address] [place] Bilirubin [Mass/Vol] 0.3 mg/dL Normal 0.2-1.3 [facility] Comment on above: Order Comment: Speci men Type: BLOOD SPECIMENOrdering Facility: [facility] Address: [address] [place] [address] Performed By: #### 2 4323-8 ####[facility] [id number] [place] [address] [place] Calcium [Mass/Vol] 8.8 mg/dL Normal 8.5-10.2 [facility] Comment on above: Order Comment: Speci men Type: BLOOD SPECIMENOrdering Facility: [facility] Address: [address] [place] [address] Performed By: #### 2 4323-8 ####[facility]ENTERWNCLIA [id number] [place] [address] [place] Chloride [Moles/Vol] 101 mmol/L Normal 98-107 [facility] Comment on above: Order Comment: Speci men Type: BLOOD SPECIMENOrdering Facility: [facility] Address: [address] [place] [address] Performed By: #### 2 4323-8 ####[facility] MILLTOWNCLIA [id number] [place] [address] [place] CO2 [Moles/Vol] 25 mmol/L Normal 22-30 [facility] Comment on above: Order Comment: Speci men Type: BLOOD SPECIMENOrdering Facility: [facility] Address: [address] [place] [address] Performed By: #### 2 4323-8 ####[facility] MARCELOOAKLANDNCLIEN [id number] [place] [address] [place] Creatinine [Mass/Vol] 0.39 mg/dL Low 0.58-0.96 [facility] Comment on above: Order Comment: Speci men Type: BLOOD SPECIMENOrdering Facility: [facility] Address: [address] [place] [address] Performed By: #### 2 4323-8 ####[facility]SIDENCLI [id number] [place] [address] [place] eGFRcr SerPlBld CKD-EPI 2020 145 mL/min/1.73m??? Normal >=60 [facility] Comment on above: Order Comment: Speci men Type: BLOOD SPECIMENOrdering Facility: [facility] Address: [address] [place] [address] Result Comment: Catherine mated Glomerular Filtration Rate (eGFR) is calculated using the 2020 CKD-EPI creatinine equation. This equation utilizes serum creatinine, sex, and age as parameters. The creatinine assay has traceable calibration to isotope dilution-mass spectrometry. Refer to KDIGO guidelines for clinical interpretation. In patients with unstable renal function, e.g. those with acute kidney injury, the eGFR may not accurately reflect actual GFR. Performed By: #### 2 4323-8 ####[facility]THSIDENCLIA [id number] [place] [address] [place] Glucose [Mass/Vol] 77 mg/dL Normal 74-99 [facility] Comment on above: Order Comment: Speci men Type: BLOOD SPECIMENOrdering Facility: [facility] Address: [address] [place] [address] Result Comment: The [place] Diabetes Association (ADA) provides guidance for cutoff values for fasting glucose and random glucose. The ADA defines fasting as no caloric intake for at least 8 hours. Fasting plasma glucose results between 100 to 125 mg/dL indicate increased risk for diabetes (prediabetes). Fasting plasma glucose results greater than or equal to 126 mg/dL meet the criteria for diagnosis of diabetes. In the absence of unequivocal hyperglycemia, results should be confirmed by repeat testing. In a patient with classic symptoms of hyperglycemia or hyperglycemic crisis, random plasma glucose results greater than or equal to 200 mg/dL meet the criteria for diagnosis of diabetes. Reference: Standards of Medical Care in Diabetes 2016, [place] Diabetes Association. Diabetes Care. 2016.39(Suppl 1). Performed By: #### 2 4323-8 ####[facility] MILLTOWNCLIA [id number] [place] [address] [place] Potassium [Moles/Vol] 3.5 mmol/L Low 3.7-5.1 [facility] Comment on above: Order Comment: Speci men Type: BLOOD SPECIMENOrdering Facility: [facility] Address: [address] [place] [address] Performed By: #### 2 4323-8 ####[facility] CENTERWNELIA [id number] [place] [address] [place] Protein [Mass/Vol] 6.3 g/dL Normal 6.3-8.0 [facility] Comment on above: Order Comment: Speci men Type: BLOOD SPECIMENOrdering Facility: [facility] Address: [address] [place] [address] Performed By: #### 2 4323-8 ####[facility] MILLTOWNCLIA [id number] [place] [address] [place] Sodium [Moles/Vol] 137 mmol/L Normal 136-144 [facility] Comment on above: Order Comment: Speci men Type: BLOOD SPECIMENOrdering Facility: [facility] Address: [address] [place] [address] Performed By: #### 2 4323-8 ####[facility] MILLTOWNCLIA [id number] [place] [address] [place] Urea nitrogen [Mass/Vol] 5 mg/dL Low 7-21 [facility] Comment on above: Order Comment: Speci men Type: BLOOD SPECIMENOrdering Facility: [facility] Address: [address] [place] [address] Performed By: #### 2 4323-8 ####[facility] MAXIMILIANO [facility] [id number] [place] [address] [place] TSH W/REFLEX FT4on TSH Qn 0.860 m[IU]/L Normal 0.270-4.200 [facility] Comment on above: Order Comment: Speci men Type: BLOOD SPECIMENOrdering Facility: [facility] Address: [address] [place] [address] Result Comment: If t he patient is , TSH reference range varies by gestational period: First Trimester (weeks 9-12): 0.180-2.990 mIU/L Second Trimester: 0.110-3.980 mIU/L Third Trimester: 0.480-4.710 mIU/L Jassi Cruz et al. A Practical Approach for the Verifications and Determination of Site- and Trimester-Specific Reference Intervals for Thyroid Function tests in . Thyroid, 2019:29:3:412-420. Jona Goetz, et al. 2017 Guidelines of the [place] Thyroid Association for the Diagnosis and Management of Thyroid Disease during and the . Thyroid, 2017:27:3:315-389. Performed By: #### T [facility] ####[facility] LABCLIA [id number] [place] [address] [place] BACTERIAL CULTURE, URINEOrde red By: Geno Albert on 03-13-2025 Bacteria identified Cx Nom (U) 10,000 -<50,000 CFU/ml Proteus vulgaris Abnormal [facility] Bacteria identified Cx Nom ( U)Ordered By: Geno Albert on 03-13-2025 Interpretation and review of laboratory results Abnormal [facility] This test was developed and its performance characteristics determined by the [facility]'s [facility] Hospital[facility] Path[facility] Laboratory Medicine [place] ([facility]). It has not been cleared or approved by the FDA. -[facility] is regulated under CLIA as qualified to perform high-complexity testing. This test is used for clinical purposes. It should not be regarded as investigational or for research. [facility] Bacteria Ur Culton 5 Bacteria identified Cx Nom (U) ORGANISM ID: 1 10,000 -<50,000 CFU/ml Proteus vulgaris ORGANISM ID: 1 (PROTEUS VULGARIS) ------ ANTIBIOTIC INTERPRETATION ROWDY STATUS REFERENCE RANGE ------ Ampicillin R >=32 F Susceptible <=8 , Intermediate >8 , Resistant >16 Cefazolin R >=64 F Susceptible 0-16 , Intermediate <0 or >16 , Resistant >16 For uncomplicated urinary tract infections, cefazolin results can be used to predict susceptibility or resistance to cephalexin. Ceftriaxone S <=1 F Susceptible <=1 , Intermediate >1 , Resistant >=4 Cefepime S <=1 F Susceptible <=2 , Susceptible-Dose Dependent >2 , Resistant >=16 Ertapenem S <=0.5 F Susceptible <=0.5 , Intermediate >.5 , Resistant >1 Meropenem S <=0.25 F Susceptible <=1 , Intermediate >1 , Resistant >2 Ampicillin/Sulbact S 8 F Susceptible <=8 , Intermediate >8 , Resistant >16 Piperacillin/Tazobac S <=4 F Susceptible <16 , Susceptible-Dose Dependent >=16 , Resistant >=32 Gentamicin S <=1 F Susceptible <=2 , Intermediate >2 , Resistant >=8 Tobramycin S <=1 F Susceptible <4 , Intermediate >=4 , Resistant >=8 Trimeth sulfameth S <=20 F Susceptible <=40 , Resistant >40 Ciprofloxacin S <=0.25 F Susceptible <0.5 , Intermediate >=.5 , Resistant >=1 Nitrofurantoin R >=512 F Susceptible <=32 , Intermediate >32 , Resistant >64 Abnormal [facility] Comment on above: Performed By: #### 6 30-4 ####[facility] LABCLIA [id number] [address] Examination level ultrasound on 03-11-2025 [facility] Radiology [facility]narrative) [facility] C[facility] Telephone (OBGYWM) BARBARA SCHWAB ([id number]) 4 F Date Time Provider Department 03/01/25 KAMILLA PORTER During your visit today, we recorded the following information about you: Elena Rivas RN 03/01/2025 12:10 PM Signed 21w4d Patient was treated with Keflex for a UTI by urgent care. She had declined Bactrim due to possible adverse effects in . Calling today to report that she finished the Keflex yesterday and felt her symptoms were improving, but not completely resolved. Today she is having right sided cramping pain. Pain rate of 5. Tylenol 1,000 MG helping a little. More painful while sitting. Still having urinary frequency. Afebrile. Patient is agreeable to taking Bactrim now. Does patient need a new urine culture first? LIO Stockton Karmon, MD 03/01/2025 2:55 PM Signed OK to take MD Kevin Mares Trisha, RN 03/01/2025 2:58 PM Signed She needs a bactrim prescription then. She did not have that one prescribed. LIO Garvin Karmon, MD 03/01/2025 3:02 PM Signed Filed JOELLE Lipscomb Trisha, RN 03/01/2025 3:09 PM Signed Patient notified. Becky Fay RN The following approved medication requests have been transmitted electronically. Requested Prescriptions Signed Prescriptions Disp Refills sulfamethoxazole-trim ethoprim (BACTRIM DS) 800-160 mg per tablet 14 tablet 0 Sig: Take 1 tablet by mouth two times a day for 7 days. Authorizing Provider: KAMILLA PORTER Pharmacy Information Pharmacy Address [phone] [place], [place] [address] Allergies As of Date: 03/01/2025 Noted Allergy Reaction ADHESIVE TAPE (ROSINS) 02/04/2014 2 - Rash LATEX 2 - Rash Date Reviewed: 02/23/2025 Reviewed by: Adwoa Conrad LPN - Fully Assessed Reason for Visit: OB UTI [Other] Visit Diagnosis:Acute cystitis without hematuria [N30.00] Order(s):sulfamethoxa zole-trimethoprim (BACTRIM DS) 800-160 mg per tabletTake 1 tablet by mouth two times a day for 7 days.Disp: 14 tabletRfl: 0 Prescriptions as of 03/01/2025 - sulfamethoxazole-trim ethoprim (BACTRIM DS) 800-160 mg per tablet Take 1 tablet by mouth two times a day for 7 days. - melatonin 3 mg tablet TAKE 2 TABLETS BY MOUTH EVERY NIGHT AT BEDTIME NEEDED for sleep - aspirin, enteric coated (ECOTRIN LOW STRENGTH) 81 mg EC tablet Take 1 tablet by mouth once daily. - valACYclovir (VALTREX) 1 gram tablet Take 1 tablet by mouth as needed. - Tbfnokhj-Cy-Irx-Fe-FA tab Take 1 tablet by mouth once daily. - escitalopram oxalate (LEXAPRO) 10 mg tablet Take 10 mg by mouth once daily. Problem List As Of Date 03/01/2025 Noted Resolved Supervision of high risk , antepartum *02/04/2019 History of marijuana use [F12.91] 02/04/2019 Quit smoking [Z87.891] 02/04/2019 08/06/2019 History of depression [Z86.59] 02/04/2019 Family history of [place]'s disease [Z82.0] 02/04/2019 Patient request for diagnostic testing [Z01.89] 02/04/2019 08/06/2019 Anemia during in second trimester [O9*05/18/2019 08/06/2019 Threatened premature labor in third trimester [*06/18/2019 08/06/2019 delivery, delivered [O60.10X0] 08/06/2019 08/12/2022 Hx of delivery, [facility]*11/01/2020 History of herpes genitalis [Z86.19] 11/01/2020 Nausea/vomiting in ([facility]) [O21.9] 11/30/2024 11/30/2024 Dichorionic diamniotic twin in second*02/13/2021 06/03/2021 Cervical insufficiency during in seco*03/15/2021 08/12/2022 Threatened labor, second trimester [O47*03/15/2021 08/12/2022 premature rupture of membranes [O42.919]05/02/2021 08/12/2022 Threatened miscarriage in early ([facility])*03/26/2024 12/28/2024 Urinary tract infection without hematuria [N39.*02/23/2025 Prescriptions ordered this encounter Disp Refills Start End SULFAMETHOXAZOLE 800 MG-TRIMETHOPRIM* 14 t* 0 03/01/2025 03/08/2025 Route: PO Sig: Take 1 tablet by mouth two times a day for 7 days. Medications Discontinued During This Encounter Prescriptions - cephALEXin (KEFLEX) 500 mg capsule (Discontinued) Take 1 capsule by mouth every 12 hours. 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 - melatonin 3 mg tablet TAKE 2 TABLETS BY MOUTH EVERY NIGHT AT BEDTIME NEEDED for sleep - aspirin, enteric coated (ECOTRIN LOW STRENGTH) 81 mg EC tablet Take 1 tablet by mouth once daily. - valACYclovir (VALTREX) 1 gram tablet Take 1 tablet by mouth as needed. - Dpdtnihh-Gq-Kkx-Fe-FA tab Take 1 tablet by mouth once daily. - escitalopram oxalate (LEXAPRO) 10 mg tablet Take 10 mg by mouth once daily. Problem List As Of Date 02/24/2025 Noted Resolved Supervision of high risk , antepartum *02/04/2019 History of marijuana use [F12.91] 02/04/2019 Quit smoking [Z87.891] 02/04/2019 08/06/2019 History of depression [Z86.59] 02/04/2019 Family history of [place]'s disease [Z82.0] 02/04/2019 Patient request for diagnostic testing [Z01.89] 02/04/2019 08/06/2019 Anemia during in second trimester [O9*05/18/2019 08/06/2019 Threatened premature labor in third trimester [*06/18/2019 08/06/2019 delivery, delivered [O60.10X0] 08/06/2019 08/12/2022 Hx of delivery, currently (HCC*11/01/2020 History of herpes genitalis [Z86.19] 11/01/2020 Nausea/vomiting in (HCC) [O21.9] 11/30/2024 11/30/2024 Dichorionic diamniotic twin in second*02/13/2021 06/03/2021 Cervical insufficiency during in seco*03/15/2021 08/12/2022 Threatened labor, second trimester [O47*03/15/2021 08/12/2022 premature rupture of membranes [O42.919]05/02/2021 08/12/2022 Threatened miscarriage in early (HCC)*03/26/2024 12/28/2024 Urinary tract infection without hematuria [N39.*02/23/2025 Encounter Status:Closed by DONALDO DESAI on 02/24/25 [facility] Chasity 02-23-2025 CNPN Telephone (OBGYWM) BARBARA SCHWAB ([id number]) 4 F Date Time Provider Department 02/23/25 MARCIA FARRELL OBGYWM During your visit today, we recorded the following information about you: Yesenia Katz RN 02/23/2025 10:02 AM Signed Please file order for anatomy ultrasound. Yesenia Katz RN Allergies As of Date: 02/23/2025 Noted Allergy Reaction ADHESIVE TAPE (ROSINS) 02/04/2014 2 - Rash LATEX 2 - Rash Date Reviewed: 02/17/2025 Reviewed by: Christina Iyer LPN - Fully Assessed Reason for Visit: Orders [681] Primary Visit Diagnosis:20 weeks gestation of ([facility]) [Z3A.20] Other Visit Diagnosis:Supervision of high risk , antepartum ([facility]) [O09.90] Order(s):OBSTETRIC ULTRASOUND [facility] [[id number]] Order #: [id number] FUTURE Prescriptions as of 02/23/2025 - sulfamethoxazole-trim ethoprim (BACTRIM DS) 800-160 mg per tablet Take 1 tablet by mouth two times a day for 7 days. - melatonin 3 mg tablet TAKE 2 TABLETS BY MOUTH EVERY NIGHT AT BEDTIME NEEDED for sleep - aspirin, enteric coated (ECOTRIN LOW STRENGTH) 81 mg EC tablet Take 1 tablet by mouth once daily. - valACYclovir (VALTREX) 1 gram tablet Take 1 tablet by mouth as needed. - Cyvkmuut-Dd-Jwq-Fe-FA tab Take 1 tablet by mouth once daily. - escitalopram oxalate (LEXAPRO) 10 mg tablet Take 10 mg by mouth once daily. Problem List As Of Date 02/23/2025 Noted Resolved Supervision of high risk , antepartum *02/04/2019 12/28/2024 History of marijuana use [F12.91] 02/04/2019 Quit smoking [Z87.891] 02/04/2019 08/06/2019 History of depression [Z86.59] 02/04/2019 Family history of [place]'s disease [Z82.0] 02/04/2019 Patient request for diagnostic testing [Z01.89] 02/04/2019 08/06/2019 Anemia during in second trimester [O9*05/18/2019 08/06/2019 Threatened premature labor in third trimester [*06/18/2019 08/06/2019 delivery, delivered [O60.10X0] 08/06/2019 08/12/2022 Hx of delivery, currently ([facility]*11/01/2020 History of herpes genitalis [Z86.19] 11/01/2020 Nausea/vomiting in ([facility]) [O21.9] 11/30/2024 11/30/2024 Dichorionic diamniotic twin in second*02/13/2021 06/03/2021 Cervical insufficiency during in seco*03/15/2021 08/12/2022 Threatened labor, second trimester [O47*03/15/2021 08/12/2022 premature rupture of membranes [O42.919]05/02/2021 08/12/2022 Threatened miscarriage in early ([facility])*03/26/2024 12/28/2024 Encounter Status:Closed by MARCIA FARRELL on 02/23/25 Normal [facility] Examination level ultrasound on 02-23-2025 Indication Standard anatomic survey History of delivery Impression The patient is referred for a standard anatomic survey. - Single, live, intrauterine . - biometry is consistent with the established gestational age. - No malformations were visualized on a complete standard anatomic survey. - The amniotic fluid volume is normal amount. - The placenta is posterior, fundal. - The Transvaginal cervical length measures 31.2 mm with no evidence of funneling or other dynamic changes. - Not all structural malformations can be detected by ultrasound examination. Recommendations Cervical length in 2 weeks. Maternal Assessment Height 168 cm Height (ft) 5 ft Height (in) 6 in Physical Exam Initial weight (lb) 102 lb Initial BMI 16.46 kg/m Maternal assessment other: 4 Para 3 REMOTE READ Method Transabdominal and transvaginal ultrasound examination. View: Adequate visualization Boss . Number of fetuses: 1 Dating LMP on: 10/01/2024 GA by LMP 20 w + 5 d ABRAHAM by LMP: 07/08/2025 GA by prior assessment 20 w + 5 d ABRAHAM by prior assessment: 07/08/2025 Ultrasound examination on: 02/23/2025 GA by U/S based upon: AC, BPD, Femur, HC GA by U/S 21 w + 0 d ABRAHAM by U/S: 07/06/2025 Assigned: based on stated ABRAHAM, selected on 02/23/2025 Assigned GA 20 w + 5 d Assigned ABRAHAM: 07/08/2025 General Evaluation Cardiac activity present. FHR 152 bpm. movements: present. Presentation: cephalic Placenta: Placental site: posterior, fundal Umbilical cord: Cord vessels: 3 vessel cord Amniotic fluid: Amount of AF: normal amount. MVP 3.9 cm Growth Overview Exam date GA BPD (mm) HC (mm) AC (mm) FL (mm) HL (mm) EFW (g) 01/26/2025 16w 5d 37.3 79% 134.7 50% 121.9 85% 22 48% 184 71% 02/23/2025 20w 5d 49.2 57% 180.7 43% 165.6 72% 34 63% 32.3 53% 397 63% Biometry Standard BPD 49.2 mm 20w 6d 57% Hadlock OFD 62.7 mm 20w 1d 42% Nicolaides HC 180.7 mm 20w 3d 43% Bill Cerebellum tr 22.2 mm 20w 5d 70% Hill Nuchal fold 3.8 mm AC 165.6 mm 21w 4d 72% Hadlock Femur 34.0 mm 20w 6d 63% Bill Humerus 32.3 mm 20w 6d 53% Bill EFW 397 g 21w 0d 63% Hadlock EFW (lb) 0 lb EFW (oz) 14 oz EFW by: Hadlock (HC-AC-FL) Extended Sign Carpenter 6.8 mm CM 7.2 mm 95% Nicolaides Extremities / Bony Struc FL / HC 0.19 48% Hadlock Other Structures FHR 152 bpm Anatomy Cranium: normal Lateral ventricles: normal Choroid plexus: normal Midline falx: normal Cavum septi pellucidi: normal Cerebellum: normal Cisterna magna: normal Head / Neck Vermis: Normal but not required for a standard anatomy exam Neck: Normal but not required for a standard anatomy exam Nuchal fold: Normal but not required for a standard anatomy exam Lips: normal Profile: Normal but not required for a standard anatomy exam Nose: Normal but not required for a standard anatomy exam Face Maxilla: Normal but not required for a standard anatomy exam Mandible: Normal but not required for a standard anatomy exam Orbits: Normal but not required for a standard anatomy exam Lens: Normal but not required for a standard anatomy exam 4-chamber view: normal RVOT view: normal LVOT view: normal 3-vessel view: normal 8-mvubcq-ztgplzh view: normal Heart / Thorax Situs: situs solitus (normal) Aortic arch view: Normal but not required for a standard anatomy exam SVC: Normal but not required for a standard anatomy exam IVC: Normal but not required for a standard anatomy exam Cardiac axis: normal Rt lung: Normal but not required for a standard anatomy exam Lt lung: Normal but not required for a standard anatomy exam Diaphragm: normal Cord insertion: normal Stomach: normal Kidneys: normal Bladder: normal Genitals: normal Abdomen Abdom. wall: normal Cervical spine: normal Thoracic spine: normal Lumbar spine: normal Sacral spine: normal Arms: normal Legs: normal Rt upper arm: normal Rt forearm: normal Rt hand: normal Rt fingers: normal Lt upper arm: normal Lt forearm: normal Lt hand: normal Lt fingers: normal Rt upper leg: normal Rt lower leg: normal Rt foot: normal Lt upper leg: normal Lt lower leg: normal Lt foot: normal Gender: Unspecified Wants to know sex: no Maternal Structures Uterus / Cervix Uterus: Visualized Cervix: Visualized Approach: Transvaginal Cervical length 31.2 mm Ovaries / Tubes / Adnexa Rt ovary: Visualized Lt ovary: Visualized Performed By: Yesenia Mccarthy RDMS, RVT Read By: Bel Serrano M.D. MATERNAL MEDICINE [facility] Radiology Study observation (narrative) [facility] 02-18-2025 CNPN Telephone (OBGYWM) BARBARA SCHWAB ([id number]) 4 F Date Time Provider Department 02/18/25 MARCIA FARRELL OBGYWM During your visit today, we recorded the following information about you: Anastasia Josiah 02/18/2025 10:24 AM Signed Patient was seen in on 02/17, patient sent MyChart request for follow up with OB between 02/18-02/21. Experiencing side cramps and poss UTI symptom. Please call patient to see alternative appointments. TY! Elena Rivas RN 02/18/2025 10:30 AM Signed 20w0d See below. Urine culture pending. Macrobid was given. No openings today or Friday at this time. Urgent Care provider routed chart to DM with a message to review. Please review and advise. LIO [place] Jennifer, MD 02/18/2025 10:39 AM Signed If she is being treated, await culture results Elena Rivas RN 02/18/2025 10:51 AM Signed Attempted to reach patient by phone. No answer and unable to leave a voicemail. Mailbox not set up yet. Elena LIO Rivas Annalee, LPN 02/18/2025 11:09 AM Signed Patient was prescribed Macrobid and has taken 2 doses so far. C/o urinary frequency and "side cramps". Burning w/ urination has resolved. Patient is taking tylenol that is helping to resolve side cramps. Next ob appointment 02/23/25. 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 New Rx for Bactrim prescribed and faxed to [facility] in [place]. Confirmed with pharmacy that Pt did pick Rx up. Tried calling Pt to review that she is indeed taking the Bactrim only at this time to properly treat UTI; However, voicemail box has not been set up yet. LIO Riddle Trisha, RN 02/22/2025 2:17 PM Signed See 02/18/25 results follow- up encounter. Patient was notified by urgent care regarding new antibiotic and results. Becky Fay RN Allergies As of Date: 02/18/2025 Noted Allergy Reaction ADHESIVE TAPE (ROSINS) 02/04/2014 2 - Rash LATEX 2 - Rash Date Reviewed: 02/17/2025 Reviewed by: Christina Iyer LPN - Fully Assessed Reason for Visit: Care [86] Prescriptions as of 02/22/2025 - sulfamethoxazole-trim ethoprim (BACTRIM DS) 800-160 mg per tablet Take 1 tablet by mouth two times a day for 7 days. - melatonin 3 mg tablet TAKE 2 TABLETS BY MOUTH EVERY NIGHT AT BEDTIME NEEDED for sleep - aspirin, enteric coated (ECOTRIN LOW STRENGTH) 81 mg EC tablet Take 1 tablet by mouth once daily. - valACYclovir (VALTREX) 1 gram tablet Take 1 tablet by mouth as needed. - Ngnrdhlf-Oh-Fua-Fe-FA tab Take 1 tablet by mouth once daily. - escitalopram oxalate (LEXAPRO) 10 mg tablet Take 10 mg by mouth once daily. Problem List As Of Date 02/18/2025 Noted Resolved Supervision of high risk , antepartum *02/04/2019 12/28/2024 History of marijuana use [F12.91] 02/04/2019 Quit smoking [Z87.891] 02/04/2019 08/06/2019 History of depression [Z86.59] 02/04/2019 Family history of [place]'s disease [Z82.0] 02/04/2019 Patient request for diagnostic testing [Z01.89] 02/04/2019 08/06/2019 Anemia during in second trimester [O9*05/18/2019 08/06/2019 Threatened premature labor in third trimester [*06/18/2019 08/06/2019 delivery, delivered [O60.10X0] 08/06/2019 08/12/2022 Hx of delivery, currently ([facility]*11/01/2020 History of herpes genitalis [Z86.19] 11/01/2020 Nausea/vomiting in ([facility]) [O21.9] 11/30/2024 11/30/2024 Dichorionic diamniotic twin in second*02/13/2021 06/03/2021 Cervical insufficiency during in seco*03/15/2021 08/12/2022 Threatened labor, second trimester [O47*03/15/2021 08/12/2022 premature rupture of membranes [O42.919]05/02/2021 08/12/2022 Threatened miscarriage in early ([facility])*03/26/2024 12/28/2024 Encounter Status:Closed by BECKY FAY on 02/22/25 [facility] Bacteria Ur Culton 5 Bacteria identified Cx Nom (U) ORGANISM ID: 1 >=100,000 CFU/ml Proteus vulgaris ORGANISM ID: 1 (PROTEUS VULGARIS) ------ ANTIBIOTIC INTERPRETATION ROWDY STATUS REFERENCE RANGE ------ Ampicillin R >=32 F Susceptible <=8 , Intermediate >8 , Resistant >16 Cefazolin R >=64 F Susceptible 0-16 , Intermediate <0 or >16 , Resistant >16 For uncomplicated urinary tract infections, cefazolin results can be used to predict susceptibility or resistance to cephalexin. Ceftriaxone S <=1 F Susceptible <=1 , Intermediate >1 , Resistant >=4 Cefepime S <=1 F Susceptible <=2 , Susceptible-Dose Dependent >2 , Resistant >=16 Ertapenem S <=0.5 F Susceptible <=0.5 , Intermediate >.5 , Resistant >1 Meropenem S <=0.25 F Susceptible <=1 , Intermediate >1 , Resistant >2 Ampicillin/Sulbact S 8 F Susceptible <=8 , Intermediate >8 , Resistant >16 Piperacillin/Tazobac S <=4 F Susceptible <16 , Susceptible-Dose Dependent >=16 , Resistant >=32 Gentamicin S <=1 F Susceptible <=2 , Intermediate >2 , Resistant >=8 Tobramycin S <=1 F Susceptible <4 , Intermediate >=4 , Resistant >=8 Trimeth sulfameth S <=20 F Susceptible <=40 , Resistant >40 Ciprofloxacin S <=0.25 F Susceptible <0.5 , Intermediate >=.5 , Resistant >=1 Nitrofurantoin R 128 F Susceptible <=32 , Intermediate >32 , Resistant >64 Abnormal [facility] Comment on above: Performed By: #### 6 30-4 ####[facility] [id number] [address] [place] OF [facility] Shady 02-17-2025 CNOV Office Visit (WOUCA) BARBARA SCHWAB ([id number]) 02 F Date Time Provider Department 02/17/25 10:15 AM ESHA PORTER During your visit today, we recorded the following information about you: Temperature Pulse Respiration Blood pressure 97.6 degrees 99/minute 18/minute 108/76 Weight 54 kg Esha Porter APRN.[facility] 02/17/2025 10:41 AM Signed [facility] Subjective Barbara Schwab is a 24 year old female. Patient presents with: Urinary Problem: Burning and frequency x 3 days HPI Dysuria and Hematuria: - Frequent UTIs; this is the first occurrence during current . - Denies visible hematuria. - Denies abdominal pain, cramping, or nausea. - No known allergies to antibiotics. High-Risk : - Currently 19 weeks and 6 days gestation. - High-risk due to history of deliveries: - Oldest child born 3 months early, requiring NICU care. - Twins born 6 weeks early, also requiring NICU care. - Denies any other complications during current . - Under the care of Dr. Edwards. Review of Systems Gastrointestinal: (-) abdominal pain, (-) abdominal cramping, (-) nausea Genitourinary: (-) hematuria, (-) flank pain Objective BP 108/76 Pulse 99 Temp 36.4 ?C (97.6 ?F) Resp 18 Wt 54 kg (119 lb 0.8 oz) LMP 10/01/2024 SpO2 99% BMI 19.21 kg/m? Physical Exam General: CV: Heart sounds normal. Resp: Breath sounds normal. Abd: No tenderness to palpation. Back: No CVA tenderness. { 1. Burning with urination (R30.0) - Acute UTI; urinalysis positive for small amount of blood. - No abdominal pain, cramping, or nausea; no costovertebral angle tenderness on exam. - Start Macrobid BID for 5 days. - Urine sent for culture. - Will message [facility] (Dr. Edwards) with high-importance update regarding UTI and current management. - Advised patient to follow any additional instructions from [facility]COMES LIA[facility] if contacted. and Recording using ambient Go[employer] software for draft documentation of the visit was discussed with the patient/authorized marketing sales representative; all questions welcomed and answered. Patient/authorized marketing sales representative agreed to proceed MDM Procedures Allergies As of Date: 02/17/2025 Noted Allergy Reaction ADHESIVE TAPE (ROSINS) 02/04/2014 2 - Rash LATEX 2 - Rash Date Reviewed: 02/17/2025 Reviewed by: Christina Iyer LPN - Fully Assessed Reason for Visit: Urinary Problem [252] Cmt: Burning and frequency x 3 days Primary Visit Diagnosis:Burning with urination [R30.0] Order(s):UA DIP, URINE (POC) [[id number]] Order #: [id number]. #:[id number] BACTERIAL CULTURE, URINE [SQURCUL] Order #: [id number]. #:[id number] nitrofurantoin monohydrate and macrocrystal (MACROBID) 100 mg capsuleTake 1 capsule by mouth two times a day for 5 days.Disp: 10 capsuleRfl: 0 Prescriptions as of 02/17/2025 - nitrofurantoin monohydrate and macrocrystal (MACROBID) 100 mg capsule Take 1 capsule by mouth two times a day for 5 days. - melatonin 3 mg tablet TAKE 2 TABLETS BY MOUTH EVERY NIGHT AT BEDTIME NEEDED for sleep - aspirin, enteric coated (ECOTRIN LOW STRENGTH) 81 mg EC tablet Take 1 tablet by mouth once daily. - valACYclovir (VALTREX) 1 gram tablet Take 1 tablet by mouth as needed. - Zbjdpwfw-Rs-Nct-Fe-FA tab Take 1 tablet by mouth once daily. - escitalopram oxalate (LEXAPRO) 10 mg tablet Take 10 mg by mouth once daily. Problem List As Of Date 02/17/2025 Noted Resolved Supervision of high risk , antepartum *02/04/2019 12/28/2024 History of marijuana use [F12.91] 02/04/2019 Quit smoking [Z87.891] 02/04/2019 08/06/2019 History of depression [Z86.59] 02/04/2019 Family history of [place]'s disease [Z82.0] 02/04/2019 Patient request for diagnostic testing [Z01.89] 02/04/2019 08/06/2019 Anemia during in second trimester [O9*05/18/2019 08/06/2019 Threatened premature labor in third trimester [*06/18/2019 08/06/2019 delivery, delivered [O60.10X0] 08/06/2019 08/12/2022 Hx of delivery, currently ([facility]*11/01/2020 History of herpes genitalis [Z86.19] 11/01/2020 Nausea/vomiting in ([facility]) [O21.9] 11/30/2024 11/30/2024 Dichorionic diamniotic twin in second*02/13/2021 06/03/2021 Cervical insufficiency during in seco*03/15/2021 08/12/2022 Threatened labor, second trimester [O47*03/15/2021 08/12/2022 premature rupture of membranes [O42.919]05/02/2021 08/12/2022 Threatened miscarriage in early ([facility])*03/26/2024 12/28/2024 Prescriptions ordered this encounter Disp Refills Start End NITROFURANTOIN MONOHYDRATE AND MACROCR* 10 c* 0 02/17/2025 02/22/2025 Route: PO Sig: Take 1 capsule by mouth two times a day for 5 days. Letter Text Encounter Status:Closed by ESHA PORTER on 02/04 (more content not included)... Normal [facility] UA DIP, URINE (POC)on 2024 BILIRUBIN UA (POCT) Negative Negative [facility] CLARITY UA (POCT) Clear [facility] COLOR UA (POCT) Yellow [facility] GLUCOSE UA (POCT) Negative Negative mg/dL [facility] Hemoglobin Ql (U) Small Abnormal Negative [facility] Interpretation and review of laboratory results Abnormal [facility] KETONE UA (POCT) Negative Negative mg/dL [facility] LEUKOCYTES UA (POCT) Moderate Abnormal Negative [facility] NITRITE UA (POCT) Negative Negative [facility] PH UA (POCT) 6.0 4.5 - 8.0 [facility] Protein Ql (U) Negative Negative mg/dL [facility] SPECIFIC GRAVITY UA (POCT) <=1.005 Abnormal 1.005 - 1.030 [facility] UROBILINOGEN UA (POCT) 0.2 Luz Maria l E.U./dL [facility] Location: [place], [address], [place], [address] [facility] POINT OF CARE [facility] CNCOon 02-10-2025 CNCO Letter Text Normal [facility] Examination level ultrasound on 01-26-2025 Indication Cervical length History of delivery Impression -The patient presents for TVS for cervical length measurement to assess the patient's risk for . - Single, live, intrauterine . - presentation is breech. - The biometry is consistent with the assigned gestational dating. - The EFW is 184 g, at the 71%. AC is at the 85%. - Amniotic fluid volume is normal amount with an MVP of 6.7 cm. - The placenta is posterior. - No malformations visualized on a limited survey as detailed below. -The cervical length measures 31.3 mm with no evidence of funneling or other dynamic changes. Recommendations Return in two weeks for cervical length Maternal Assessment Height 168 cm Height (ft) 5 ft Height (in) 6 in Physical Exam Initial weight (lb) 102 lb Initial BMI 16.46 kg/m Maternal assessment other: 4 Para 3 REMOTE READ Method Transabdominal and transvaginal ultrasound examination. View: Suboptimal view: limited by position Boss . Number of fetuses: 1 Dating LMP on: 10/01/2024 GA by LMP 16 w + 5 d ABRAHAM by LMP: 07/08/2025 GA by prior assessment 16 w + 5 d ABRAHAM by prior assessment: 07/08/2025 Ultrasound examination on: 01/26/2025 GA by U/S based upon: AC, BPD, Femur, HC GA by U/S 17 w + 1 d ABRAHAM by U/S: 07/05/2025 Assigned: based on stated ABRAHAM, selected on 01/26/2025 Assigned GA 16 w + 5 d Assigned ABRAHAM: 07/08/2025 General Evaluation Cardiac activity present. FHR 152 bpm. movements: present. Presentation: breech Placenta: Placental site: posterior Umbilical cord: Cord vessels: 3 vessel cord Amniotic fluid: Amount of AF: normal amount. MVP 6.7 cm Growth Overview Exam date GA BPD (mm) HC (mm) AC (mm) FL (mm) HL (mm) EFW (g) 01/26/2025 16w 5d 37.3 79% 134.7 50% 121.9 85% 22 48% 184 71% Biometry Standard BPD 37.3 mm 17w 3d 79% Hadlock OFD 46.7 mm 16w 1d 46% Nicolaides HC 134.7 mm 16w 5d 50% Bill AC 121.9 mm 17w 6d 85% Hadlock Femur 22.0 mm 16w 4d 48% Bill EFW 184 g 17w 0d 71% Hadlock EFW (lb) 0 lb EFW (oz) 6 oz EFW by: Hadlock (HC-AC-FL) Extremities / Bony Struc FL / HC 0.16 23% Hadlock Other Structures FHR 152 bpm Anatomy Lateral ventricles: suboptimally visualized Choroid plexus: normal Cavum septi pellucidi: normal Cerebellum: normal Cisterna magna: normal 4-chamber view: suboptimally visualized RVOT view: suboptimally visualized LVOT view: suboptimally visualized 3-vessel view: suboptimally visualized Heart / Thorax Situs: situs solitus (normal) Diaphragm: normal Cord insertion: normal Stomach: normal Kidneys: normal Bladder: normal Gender: Unspecified Wants to know sex: no Maternal Structures Uterus / Cervix Cervix: Visualized Approach: Transvaginal Cervical length 31.3 mm Performed By: Yesenia Mccarthy RDMS, RVT Read By: Melanie Cook M.D. MATERNAL MEDICINE [facility] Radiology Study observation (narrative) [facility] CBC W Auto Differential pane l (Bld)on 12-29-2024 Basophils (Bld) [#/Vol] 0.04 10*3/uL Normal <0.11 [facility] Comment on above: Order Comment: Speci men Type: BLOOD SPECIMENOrdering Facility: [facility] Address: [address] [place] [address] Performed By: #### 5 7021-8 ####[facility] [id number] [place] [id number] [place] Basophils/100 WBC (Bld) 0.4 % Normal [facility] Comment on above: Order Comment: Speci men Type: BLOOD SPECIMENOrdering Facility: [facility] Address: [address] [place] [address] Performed By: #### 5 7021-8 ####[facility] MARCELOPrestonFRIDALIA [id number] [place] [address] [place] Differential cell count method Nom (Bld) Auto Normal [facility] Comment on above: Order Comment: Speci men Type: BLOOD SPECIMENOrdering Facility: [facility] Address: [address] [place] [address] Performed By: #### 5 7021-8 ####[facility] [id number] [place] [address] [place] Eosinophils (Bld) [#/Vol] 0.03 10*3/uL Normal <0.46 [facility] Comment on above: Order Comment: Speci men Type: BLOOD SPECIMENOrdering Facility: [facility] Address: [address] [place] [address] Performed By: #### 5 7021-8 ####[facility] [id number] [place] [address] [place] Eosinophils/100 WBC (Bld) 0.3 % Normal [facility] Comment on above: Order Comment: Speci men Type: BLOOD SPECIMENOrdering Facility: [facility] Address: [address] [place] [address] Performed By: #### 5 7021-8 ####[facility]IDE[facility]AL[facility] [id number] [place] [address] [place] Erythrocyte distribution width (RBC) [Ratio] 12.6 % Normal 11.5-15.0 [facility] Comment on above: Order Comment: Speci men Type: BLOOD SPECIMENOrdering Facility: [facility] Address: [address] [place] [address] Performed By: #### 5 7021-8 ####[facility]THSIDENCLIA [id number] [place] [address] [place] Hematocrit (Bld) [Volume fraction] 34.8 % Low 36.0-46.0 [facility] Comment on above: Order Comment: Speci men Type: BLOOD SPECIMENOrdering Facility: [facility] Address: [address] [place] [address] Performed By: #### 5 7021-8 ####[facility]THSIDESAMINA [id number] [place] [address] [place] Hemoglobin (Bld) [Mass/Vol] 12.0 g/dL Normal 11.5-15.5 [facility] Comment on above: Order Comment: Speci men Type: BLOOD SPECIMENOrdering Facility: [facility] Address: [address] [place] [address] Performed By: #### 5 7021-8 ####[facility] S[facility]THSIDENCLIEN [id number] [place] [address] [place] Immature granulocytes (Bld) [#/Vol] 0.04 10*3/uL Normal <0.10 [facility] Comment on above: Order Comment: Speci men Type: BLOOD SPECIMENOrdering Facility: [facility] Address: [address] [place] [address] Performed By: #### 5 7021-8 ####[facility]THSIDENCLIA [id number] [place] [address] [place] Immature granulocytes/100 WBC (Bld) 0.4 % Normal [facility] Comment on above: Order Comment: Speci men Type: BLOOD SPECIMENOrdering Facility: [facility] Address: [address] [place] [address] Performed By: #### 5 7021-8 ####[facility]SIDENCLIA [id number] [place] [address] [place] Lymphocytes (Bld) [#/Vol] 1.95 10*3/uL Normal 1.00-4.00 [facility] Comment on above: Order Comment: Speci men Type: BLOOD SPECIMENOrdering Facility: [facility] Address: [address] [place] [address] Performed By: #### 5 7021-8 ####[facility] MARCELOPrestonNCLIEN [id number] [place] [address] [place] Lymphocytes/100 WBC (Bld) 17.8 % Normal [facility] Comment on above: Order Comment: Speci men Type: BLOOD SPECIMENOrdering Facility: [facility] Address: [address] [place] [address] Performed By: #### 5 7021-8 ####[facility]ENCLIEN [id number] [place] [address] [place] MCH (RBC) [Entitic mass] 29.9 pg Normal 26.0-34.0 [facility] Comment on above: Order Comment: Speci men Type: BLOOD SPECIMENOrdering Facility: [facility] Address: [address] [place] [address] Performed By: #### 5 7021-8 ####[facility]THSIDENCLIA [id number] [address] [place] MCHC (RBC) [Mass/Vol] 34.5 g/dL Normal 30.5-36.0 [facility] Comment on above: Order Comment: Speci men Type: BLOOD SPECIMENOrdering Facility: [facility] Address: [address] [place] [address] Performed By: #### 5 7021-8 ####[facility]SIDENCLIA [id number] [place] [address] [place] MCV (RBC) [Entitic vol] 86.8 fL Normal 80.0-100.0 [facility] Comment on above: Order Comment: Speci men Type: BLOOD SPECIMENOrdering Facility: [facility] Address: [address] [place] [address] Performed By: #### 5 7021-8 ####[facility] MILLWNCLIA [id number] [place] [address] [place] Monocytes (Bld) [#/Vol] 0.60 10*3/uL Normal <0.87 [facility] Comment on above: Order Comment: Speci men Type: BLOOD SPECIMENOrdering Facility: [facility] Address: [address] [place] [address] Performed By: #### 5 7021-8 ####[facility] INSTITUTELIA [id number] [place] [address] [place] Monocytes/100 WBC (Bld) 5.5 % Normal [facility] Comment on above: Order Comment: Speci men Type: BLOOD SPECIMENOrdering Facility: [facility] Address: [address] [place] [address] Performed By: #### 5 7021-8 ####[facility] INSTITUTELIA [id number] [place] [address] [place] Neutrophils (Bld) [#/Vol] 8.32 10*3/uL High 1.45-7.50 [facility] Comment on above: Order Comment: Speci men Type: BLOOD SPECIMENOrdering Facility: [facility] Address: [address] [place] [address] Performed By: #### 5 7021-8 ####[facility]ENTERWNCLIA [id number] [place] [address] [place] Neutrophils/100 WBC (Bld) 75.6 % Normal [facility] Comment on above: Order Comment: Speci men Type: BLOOD SPECIMENOrdering Facility: [facility] Address: [address] [place] [address] Performed By: #### 5 7021-8 ####[facility]THSIDENCLIA [id number] [place] [id number] [place] Nucleated RBC (Bld) [#/Vol] 10*3/uL Normal <0.01 [facility] Comment on above: Order Comment: Speci men Type: BLOOD SPECIMENOrdering Facility: [facility] Address: [address] [place] [address] Performed By: #### 5 7021-8 ####[facility]ENCCAST[facility] [id number] [place] [address] [place] Nucleated RBC/100 WBC (Bld) [Ratio] 0.0 /100 WBC Normal [facility] Comment on above: Order Comment: Speci men Type: BLOOD SPECIMENOrdering Facility: [facility] Address: [address] [place] [address] Performed By: #### 5 7021-8 ####[facility] [id number] [place] [address] [place] Platelet mean volume (Bld) [Entitic vol] 10.6 fL Normal 9.0-12.7 [facility] Comment on above: Order Comment: Speci men Type: BLOOD SPECIMENOrdering Facility: [facility] Address: [address] [place] [address] Performed By: #### 5 7021-8 ####[facility]THSIDENCLIA [id number] [place] [address] [place] Platelets (Bld) [#/Vol] 231 10*3/uL Normal 150-400 [facility] Comment on above: Order Comment: Speci men Type: BLOOD SPECIMENOrdering Facility: [facility] Address: [address] [place] [address] Performed By: #### 5 7021-8 ####[facility]THSIDENCLIA [id number] [place] [address] [place] RBC (Bld) [#/Vol] 4.01 10*6/uL Normal 3.90-5.20 [facility] Comment on above: Order Comment: Speci men Type: BLOOD SPECIMENOrdering Facility: [facility] Address: [address] [place] [address] Performed By: #### 5 7021-8 ####[facility]THSIDENCLIA [id number] [place] [address] [place] WBC (Bld) [#/Vol] 10.98 10*3/uL Normal 3.70-11.00 [facility] Comment on above: Order Comment: Speci men Type: BLOOD SPECIMENOrdering Facility: [facility] Address: [address] [place] [address] Performed By: #### 5 7021-8 ####[facility]THSIDENCLIA [id number] [place] [address] [place] HBV surface Ag Ser Qlon 12-06 HBV surface Ag Ql (S) Negative Normal Negative [facility] Comment on above: Order Comment: Speci men Type: BLOOD SPECIMENOrdering Facility: [facility] Address: [address] [place] [address] Performed By: #### 5 195-3, 03162-7, 86168-8 ####[facility] LABIA [id number] [place] [address] [place] HCV Ab Ser Qlon 12-29-2024 HCV Ab Ql (S) Negative Normal Negative [facility] Comment on above: Order Comment: Speci men Type: BLOOD SPECIMENOrdering Facility: [facility] Address: [address] [place] [address] Result Comment: The result suggests no evidence of infection with Hepatitis C virus. Should recent infection be suspected, repeat testing may be considered 4-6 weeks after this draw. Performed By: #### 1 6128-1 ####[facility] LABIA [id number] [place] [address] [place] HIV 1+2 Ab IA Qlon 06-25-202 5 HIV 1 and 2 Ab IA.rapid Nom (S/P/Bld) Normal [facility] Comment on above: Order Comment: Speci men Type: BLOOD SPECIMENOrdering Facility: [facility] Address: [address] [place] [address] Result Comment: Test not indicated. Performed By: #### 5 195-3, 52157-9, 77078-0 ####[facility] LABCLIA [id number] [address] STATES OF [facility] HIV 1+2 Ab+HIV1 p24 Ag IA Ql Non-Reactive Normal Nonreactive [facility] Comment on above: Order Comment: Speci men Type: BLOOD SPECIMENOrdering Facility: [facility] Address: [address] [place] [address] Performed By: #### 5 195-3, 30202-4, 17459-5 ####[facility] [id number] [address] STATES [place] [facility] HIV immunoassay testing algorithm interpretation (S/P/Bld) [Interp] Normal [facility] Comment on above: Order Comment: Speci men Type: BLOOD SPECIMENOrdering Facility: [facility] Address: [address] [place] [address] Result Comment: No e vidence of HIV-1 or HIV-2 infection. Should recent infection be suspected, repeat testing may be considered 2-3 weeks after this draw. [place] Rev. Code 3701.243(E): This information has been disclosed to you from confidential records protected from disclosure by state law. You shall make no further disclosure of this information without the specific, written, and informed release of the individual to whom it pertains or as otherwise permitted by state law. A general authorization for the release of medical or other information is not sufficient for the purpose of the release of HIV test results or diagnoses. Performed By: #### 5 195-3, 18861-0, 41275-8 ####[facility] LABIA [id number] [place] [address] [place] HbA1c (Bld)on 12-29-2024 Average glucose Estimated from glycated hemoglobin (Bld) [Mass/Vol] 91 mg/dL Normal [facility] Comment on above: Order Comment: Speci annabel Type: BLOOD SPECIMENOrdering Facility: [facility] Address: [address] [place] [address] Result Comment: eAG: (Estimated average glucose) is a calculated value from HgbA1c and is marketing sales representative of the average blood glucose level in the last 2-3 month period. Performed By: #### 5 5454-3 ####[facility] LABCLIA [id number] [place] [address] [place] HbA1c (Bld) [Mass fraction] 4.8 % Normal 4.3-5.6 [facility] Comment on above: Order Comment: Zachery jin Type: BLOOD SPECIMENOrdering Facility: [facility] Address: [address] [place] [address] Result Comment: [place] Diabetes Association guidelines indicate that patients with HgbA1c in the range 5.7-6.4% are at increased risk for development of diabetes, and intervention by lifestyle modification may be beneficial. HgbA1c greater or equal to 6.5% is considered diagnostic of diabetes. Performed By: #### 5 5454-3 ####[facility] LABCLIA [id number] [place] [address] [place] RUBELLA IGG ANTIBODYon 12-29 RUBELLA IGG AB, QUAL Positive Normal Positive [facility] Comment on above: Order Comment: Terencei annabel Type: BLOOD SPECIMENOrdering Facility: [facility] Address: [address] [place] [address] Result Comment: The result suggests recent or past exposure to Rubella virus or history of Rubella vaccination. Positive result may also be seen due to presence of passively-transferred antibodies. Please correlate with patient's history. Performed By: #### R UBIGG ####[facility] LABCLIA [id number] [place] [address] [place] Reagin and Treponema pallidu m IgG and IgM [Interp]on 12-29-2024 T. pallidum IgG+IgM IA Ql (S) Non-Reactive Normal Nonreactive [facility] Comment on above: Order Comment: Speci men Type: BLOOD SPECIMENOrdering Facility: [facility] Address: [address] [place] [address] Performed By: #### 5 195-3, 36043-5, 03587-0 ####[facility] LABCLIA [id number] [place] [address] [place] Reagin+T pallidum IgG+IgM Se rPl-Impon 12-29-2024 Reagin and Treponema pallidum IgG and IgM [Interp] Cannot exclude recent Treponemal infection if specimen collected within 7-10 days after appearance of suspect lesions or 2-3 weeks after an exposure. Clinical correlation is required. Normal [facility] Comment on above: Order Comment: Speci men Type: BLOOD SPECIMENOrdering Facility: [facility] Address: [address] [place] [address] Performed By: #### 5 195-3, 60549-6, 22448-4 ####[facility] LABCLIA [id number] [place] [address] [place] TYPE + SCREEN PRENATALon ABO O Normal [facility] Comment on above: Order Comment: Speci men Type: FLUID SPECIMEN [facility]ing Facility: [facility] Address: [address] [place] [address] Performed By: #### L [id number] #### [facility] CLIA [id number] [address] [place] [address] [place] Rh Nom (Bld) Positive Normal [facility] Comment on above: Order Comment: Speci men Type: FLUID SPECIMEN [facility]ing Facility: [facility] Address: [address] [place] [address] Performed By: #### L [id number] #### [facility] CLIA [id number] [address] [place], [place] [address] [place] TYPE AND SCREEN EXPIRATION 01/01/2025 23:59 Normal [facility] Comment on above: Order Comment: Speci men Type: FLUID SPECIMEN Ordering Facility: [facility] Address: [address] [place], [place] [address] [address] Performed By: #### L [id number] #### [facility] CLIA [id number] [address] [place] [address] Examination level ultrasound on 12-28-2024 Indication First trimester anatomic survey History of delivery 28 and 32 weeks Impression The patient is referred for a first trimester anatomy scan, including nuchal translucency measurement as clinically indicated, in a complicated by history of delivery x 2, depression (SSRI), and a family history of [place]'s disease. Aneuploidy screening was declined. - Single, live, intrauterine . - Tutwiler rump length measurement is consistent with the established gestational age. - No malformations visualized on a complete first trimester anatomic assessment. - The nuchal translucency measurement is 1.6 mm. - Not all structural malformations can be detected by ultrasound examination. - An anatomic survey at 18-20 weeks is recommended given no identified risk factors. - MFM consult is scheduled to follow her ultrasound today - please see note in EPIC for complete details of her counseling and management. Thank you for the referral. Recommendations As above Maternal Assessment Height 168 cm Height (ft) 5 ft Height (in) 6 in Physical Exam Initial weight (lb) 102 lb Initial BMI 16.46 kg/m Maternal assessment other: 4 Para 3 Method Transabdominal ultrasound examination Boss . Number of fetuses: 1 Dating LMP on: 10/01/2024 GA by LMP 12 w + 4 d ABRAHAM by LMP: 07/08/2025 GA by prior assessment 12 w + 4 d ABRAHAM by prior assessment: 07/08/2025 Ultrasound examination on: 12/28/2024 GA by U/S based upon: CRL GA by U/S 13 w + 1 d ABRAHAM by U/S: 07/04/2025 Assigned: based on stated ABRAHAM, selected on 12/28/2024 Assigned GA 12 w + 4 d Assigned ABRAHAM: 07/08/2025 General Evaluation Cardiac activity present Placenta: posterior Cord vessels: 3 vessel cord Amniotic fluid: normal amount Biometry Standard FHR 153 bpm CRL 69.0 mm 13w 1d 81% Hadlock NT 1.60 mm First Trimester Anatomy Calvarium: normal Falx cerebri: normal Choroid plexus: normal Profile: normal Nasal bone: normal Retronasal triangle: normal Maxilla: normal Mandible: normal Nuchal translucency: Unremarkable Situs: normal Cardiac position: normal Cardiac axis: normal 4-chamber view: normal 4-chamber view with color: normal 0-dwyxvt-lvsifae view: normal Abdominal cord insertion: normal Stomach: normal Kidneys: normal Bladder: normal Color doppler of perivesical umbilical arteries: normal Vertebral alignment: normal Arms: normal Hands: normal Legs: normal Feet: normal Maternal Structures Uterus / Cervix Uterus: Visualized Uterus length 121 mm Uterus width 111 mm Uterus height 100 mm Uterus Vol 699.8 cm Ovaries / Tubes / Adnexa Rt ovary: Visualized Rt ovary D1 33 mm Rt ovary D2 15 mm Rt ovary D3 15 mm Rt ovary Vol 3.8 cm Lt ovary: Visualized Lt ovary D1 24 mm Lt ovary D2 17 mm Lt ovary D3 16 mm Lt ovary Vol 3.3 cm Performed By: Yesenia Mccarthy RDMS, RVT Read By: Scott Alcazar M.D. MATERNAL MEDICINE [facility] Radiology Study observation (narrative) Marion sethi [facility] 12-14-2024 AMERICO Telephone (OBGYWM) BARBARA SCHWAB ([id number]) 4 F Date Time Provider Department 12/14/24 PAOLA HILL OBTIFFANIE During your visit today, we recorded the following information about you: Erik Galicia RN 12/14/2024 11:18 AM Signed Patient is scheduled for nuchal ultrasound on 12/28. This is [facility] day . Do you want MFM referral for history of labor? Notes from 11/30 visit. Under plan notes :History of . Will order MFM consult for further discussion. Please order MFM consult if you want one done Paola Hill APRN.MATTHEW 12/14/2024 11:22 AM Signed Ask one of the providers that regular see OB pt. Paola Hill APRN.Erik Turner RN 12/14/2024 4:24 PM Addendum Marcia, Please see note below and Paola's response: Patient saw Paola Hill 11/30/2024 and in her notes it states Will order MFM consult for further discussion. History of . 1st delivery at 28w6d, 2nd delivery of twins ar 32 weeks. Please order MFM consult if you want one done . No appointments prior to that date Erik Galicia RN 12/14/2024 4:55 PM Signed Appointment scheduled with MFM. Patient informed Allergies As of Date: 12/14/2024 Noted Allergy Reaction ADHESIVE TAPE (ROSINS) 02/04/2014 2 - Rash LATEX 2 - Rash Date Reviewed: 11/24/2024 Reviewed by: Yosi Payne APRN.MATTHEW - Fully Assessed Reason for Visit: Orders [681] Primary Visit Diagnosis:History of delivery, currently ([facility]) [O09.899] Order(s):CONSULT TO MATERNAL MEDI [[id number]] Order #: [id number]: 1 FUTURE Prescriptions as of 12/14/2024 - aspirin, enteric coated (ECOTRIN LOW STRENGTH) 81 mg EC tablet Take 1 tablet by mouth once daily. - valACYclovir (VALTREX) 1 gram tablet Take 1 tablet by mouth as needed. - Lfamjecj-Rz-Pzm-Fe-FA tab Take 1 tablet by mouth once daily. - escitalopram oxalate (LEXAPRO) 10 mg tablet Take 10 mg by mouth once daily. Problem List As Of Date 12/14/2024 Noted Resolved Supervision of high risk , antepartum *02/04/2019 History of marijuana use [F12.91] 02/04/2019 Quit smoking [Z87.891] 02/04/2019 08/06/2019 History of depression [Z86.59] 02/04/2019 Family history of [place]'s disease [Z82.0] 02/04/2019 Patient request for diagnostic testing [Z01.89] 02/04/2019 08/06/2019 Anemia during in second trimester [O9*05/18/2019 08/06/2019 Threatened premature labor in third trimester [*06/18/2019 08/06/2019 delivery, delivered [O60.10X0] 08/06/2019 08/12/2022 Hx of delivery, currently ([facility]*11/01/2020 History of herpes genitalis [Z86.19] 11/01/2020 Nausea/vomiting in ([facility]) [O21.9] 11/30/2024 11/30/2024 Dichorionic diamniotic twin in second*02/13/2021 06/03/2021 Cervical insufficiency during in seco*03/15/2021 08/12/2022 Threatened labor, second trimester [O47*03/15/2021 08/12/2022 premature rupture of membranes [O42.919]05/02/2021 08/12/2022 Threatened miscarriage in early [O20.*03/26/2024 Encounter Status:Closed by MARCIA FARRELL on 12/14/24 [facility] Chasity 12-02-2024 CNPN Telephone (OGFVWE) BARBARA SCHWAB ([id number]) 4 F Date Time Provider Department 12/02/24 NURSE TOOL DIE MAKER [facility] [place] OGFVWE During your visit today, we recorded the following information about you: Donaldo Desai RN 12/02/2024 9:25 AM Signed 1st risk assessment form submitted 12/02/24 Donaldo Desai RN Allergies As of Date: 12/02/2024 Noted Allergy Reaction ADHESIVE TAPE (ROSINS) 02/04/2014 2 - Rash LATEX 2 - Rash Date Reviewed: 11/24/2024 Reviewed by: Yosi Payne APRN.WELDING MACHINE OPERATOR FRICTION - Fully Assessed Reason for Visit: PRAF [4193] Prescriptions as of 12/02/2024 - aspirin, enteric coated (ECOTRIN LOW STRENGTH) 81 mg EC tablet Take 1 tablet by mouth once daily. - valACYclovir (VALTREX) 1 gram tablet Take 1 tablet by mouth as needed. - Sznpzkqt-Nr-Psm-Fe-FA tab Take 1 tablet by mouth once daily. - escitalopram oxalate (LEXAPRO) 10 mg tablet Take 10 mg by mouth once daily. Problem List As Of Date 12/02/2024 Noted Resolved Supervision of high risk , antepartum *02/04/2019 History of marijuana use [F12.91] 02/04/2019 Quit smoking [Z87.891] 02/04/2019 08/06/2019 History of depression [Z86.59] 02/04/2019 Family history of [place]'s disease [Z82.0] 02/04/2019 Patient request for diagnostic testing [Z01.89] 02/04/2019 08/06/2019 Anemia during in second trimester [O9*05/18/2019 08/06/2019 Threatened premature labor in third trimester [*06/18/2019 08/06/2019 delivery, delivered [O60.10X0] 08/06/2019 08/12/2022 Hx of delivery, currently ([facility]*11/01/2020 History of herpes genitalis [Z86.19] 11/01/2020 Nausea/vomiting in ([facility]) [O21.9] 11/30/2024 11/30/2024 Dichorionic diamniotic twin in second*02/13/2021 06/03/2021 Cervical insufficiency during in seco*03/15/2021 08/12/2022 Threatened labor, second trimester [O47*03/15/2021 08/12/2022 premature rupture of membranes [O42.919]05/02/2021 08/12/2022 Threatened miscarriage in early [O20.*03/26/2024 Encounter Status:Closed by DONALDO DESAI on 12/02/24 Normal [facility] Bacteria Ur Culton Bacteria identified Cx Nom (U) ORGANISM ID: 1 10,000 -<50,000 CFU/ml Normal urogenital jerod Normal [facility] Comment on above: Performed By: #### 6 30-4 ####[facility] LABCLIA [id number] [address] [place] C. trachomatis+N. gonorrhoea e DNA AQUILINO+probe Ql (Unsp spec)on 11-30-2024 C. trachomatis rRNA AQUILINO+probe Ql (Unsp spec) Not detected Normal Not detected [facility] Comment on above: Order Comment: Speci men Type: SWABOrdering Facility: [facility] Address: [address] [place] [address] Performed By: #### T RVAMP, 42853-4 ####[facility] LABCLIA [id number] [address] [place] N. gonorrhoeae rRNA AQUILINO+probe Ql (Unsp spec) Not detected Normal Not detected [facility] Comment on above: Order Comment: Speci men Type: SWABOrdering Facility: [facility] Address: [address] [place] [address] Performed By: #### T RVAMP, [id number] ####[facility] [id number] [place] [address] [place] CNCOon 11-30-2024 CNCO Letter Text Normal [facility] PAP TESTon 11-30-2024 ADEQUACY Normal [facility] Comment on above: Order Comment: Speci men Type: FLUID SPECIMEN Ordering Facility: [facility] Address: [address] [place] [address] Result Comment: Sati sfactory for interpretation. Transformation zone present Performed By: #### L [id number] #### [facility] CLIA [id number] [address] [place] [address] [place] CASE REPORT Normal [facility] Comment on above: Order Comment: Speci men Type: FLUID SPECIMEN Ordering Facility: [facility] Address: [address] [place] [address] Result Comment: Gyne cologic Cytology Report Case: [id number] Authorizing Provider: Paola Hill APRN.WELDING MACHINE OPERATOR FRICTION Collected: 11/30/2024 08:51 AM Ordering Location: OB/Gynecology Received: 12/01/2024 08:03 AM First Screen: Briseida Benson, EMILY, ASCP Specimen: Pap Test, ThinPrep, Cervix Performed By: #### L [id number] #### [facility] CLIA [id number] [address] [place] [address] [place] CLINICAL HISTORY, CYTOLOGY, COIL PLACER Routine Exam Normal [facility] Comment on above: Order Comment: Speci men Type: FLUID SPECIMEN Ordering Facility: [facility] Address: [address] [place] [address] Performed By: #### L [id number] #### [facility] CLIA [id number] [address] [place] [address] [place] FINAL PERFORMING LAB Normal [facility] Comment on above: Order Comment: Speci men Type: FLUID SPECIMEN Ordering Facility: [facility] Address: [address] [place] [address] Result Comment: Tech nical component, realtime reporter screening performed at: [facility], [address] [place] [address] CLIA: [id number] Diagnostic interpretation performed at: [facility], [address] [place], [place] [id number] CLIA# [id number] Ground Operations Superintendent: Haider Avalos MD Performed By: #### L [id number] #### [facility] CLIA [id number] [address] [place] [address] [place] INTERPRETATION, CYTOLOGY, COIL PLACER Normal [facility] Comment on above: Order Comment: Speci men Type: FLUID SPECIMEN Ordering Facility: [facility] Address: [address] [place] [address] Result Comment: Nega tive for intraepithelial lesion or malignancy. at 1516 EDT Performed By: #### L [id number] #### [facility] CLIA [id number] [address] [place] [address] [place] LMP 09/11/2024 Normal [facility] Comment on above: Order Comment: Speci men Type: FLUID SPECIMEN Ordering Facility: [facility] Address: [address] [place] [address] Performed By: #### L [id number] #### [facility] CLIA [id number] [address] [place], [place] [id number] [place] PAP DISCLAIMER COMMENT The Pap Smear is a screening test for cervical cancer. False negative results occur with all screening tests, emphasizing the need for rescreening at recommended intervals, and clinical correlation. Normal [facility] Comment on above: Order Comment: Speci men Type: FLUID SPECIMEN Ordering Facility: [facility] Address: [address] [place] [address] Performed By: #### L [id number] #### [facility] CLIA [id number] [address] [place] [address] [place] PAP SEISMOLOGY TEACHER COMMENT This specimen has been analyzed by the FDA-approved Bahu System, which uses digital imaging and an enhanced artificial intelligence image analysis algorithm to identify hernadez of interest on the microscopic slide, to assist the deputy attorney general and pathologist in evaluating cells on ThinPrep Pap tests. Following analysis, hernadez of interest on the microscopic slide selected by the algorithm are reviewed by a deputy attorney general. If a sample requires hierarchical review, the pathologist will review the same hernadez of interest selected by the algorithm prior to final interpretation. Normal [facility] Comment on above: Order Comment: Speci men Type: FLUID SPECIMEN Ordering Facility: [facility] Address: [address] [place] [address] Performed By: #### L [id number] #### [facility] CLIA [id number] [address] [place], [place] [address] [place] POC SPEECH LANGUAGE PATHOLOGIST TRAVEL ULTRASOUNDon 12-01-19 25 Indication Viability. Confirmation of intrauterine . Confirmation of cardiac activity. Estimation of gestational age Impression cardiac activity is visualized, CRL is appropriate for clinical dates, corresponding to ABRAHAM 07/08/2025 Recommendations Follow up for 1st Trimester Anatomy with Nuchal Translucency as clinically indicated if desired. Method Transabdominal ultrasound examination. View: Adequate visualization Number of embryos: uncertain Dating LMP on: 10/01/2024 GA by LMP 8 w + 4 d ABRAHAM by LMP: 07/08/2025 GA by prior assessment 8 w + 4 d ABRAHAM by prior assessment: 07/08/2025 Ultrasound examination on: 11/30/2024 GA by U/S based upon: CRL GA by U/S 8 w + 5 d ABRAHAM by U/S: 07/07/2025 Assigned: based on ultrasound (CRL), selected on 11/30/2024 Assigned GA 8 w + 5 d Assigned ABRAHAM: 07/07/2025 Biometry Standard FHR 178 bpm CRL 21.2 mm 8w 5d 71% Hadlock Assessment Gestational sac: visualized Location: intrauterine Yolk sac: visualized Embryo: visualized CRL 21.2 mm 8w 5d 71% Hadlock Cardiac activity: present FHR 178 bpm General Evaluation Cardiac activity present. FHR 178 bpm. movements: present Performed By: Paola Hill CNP Read By: Paola Hill CNP MATERNAL MEDICINE [facility] Radiology Study observation (narrative) [facility] TRICHOMONAS VAGINALIS Cristian 11-30-2024 T. vaginalis DNA AQUILINO+probe Ql (Unsp spec) Not detected Normal Not detected [facility] Comment on above: Order Comment: Speci men Type: SWABOrdering Facility: [facility] Address: [address] [place] [address] Performed By: #### T RVAMP, [id number] ####[facility] [id number] [place] [address] [place] Chasity 11-25-2024 AMERICO Telephone (OBGYWM) BARBARA SCHWAB ([id number]) 4 F Date Time Provider Department 11/25/24 PAOLA HILL During your visit today, we recorded the following information about you: Miriam Flores MA 11/25/2024 2:45 PM Signed Called the patient using phone number listed in chart. Patient answered but did not have time to go over the questions today. Patient asked if she could call the office back. Patient is to call 11/26/2024. Miriam Flores MA Allergies As of Date: 11/25/2024 Noted Allergy Reaction ADHESIVE TAPE (ROSINS) 02/04/2014 2 - Rash LATEX 2 - Rash Date Reviewed: 11/24/2024 Reviewed by: Yosi Payne APRN.WELDING MACHINE OPERATOR FRICTION - Fully Assessed Prescriptions as of 12/14/2024 - aspirin, enteric coated (ECOTRIN LOW STRENGTH) 81 mg EC tablet Take 1 tablet by mouth once daily. - valACYclovir (VALTREX) 1 gram tablet Take 1 tablet by mouth as needed. - Oaccqegj-Dx-Zvk-Fe-FA tab Take 1 tablet by mouth once daily. - escitalopram oxalate (LEXAPRO) 10 mg tablet Take 10 mg by mouth once daily. Problem List As Of Date 11/25/2024 Noted Resolved High risk teen , antepartum [O09.899] 02/04/2019 08/12/2022 History of marijuana use [F12.91] 02/04/2019 Quit smoking [Z87.891] 02/04/2019 08/06/2019 History of depression [Z86.59] 02/04/2019 Family history of Russel's disease [Z82.0] 02/04/2019 Patient request for diagnostic testing [Z01.89] 02/04/2019 08/06/2019 Anemia during in second trimester [O9*05/18/2019 08/06/2019 Threatened premature labor in third trimester [*06/18/2019 08/06/2019 delivery, delivered [O60.10X0] 08/06/2019 08/12/2022 History of delivery [Z87.51] 11/01/2020 History of herpes genitalis [Z86.19] 11/01/2020 Nausea/vomiting in [O21.9] 11/01/2020 08/12/2022 Dichorionic diamniotic twin in second*02/13/2021 06/03/2021 Cervical insufficiency during in seco*03/15/2021 08/12/2022 Threatened labor, second trimester [O47*03/15/2021 08/12/2022 premature rupture of membranes [O42.919]05/02/2021 08/12/2022 Threatened miscarriage in early [O20.*03/26/2024 Encounter Status:Closed by ERIK GALICIA on 12/14/24 [facility] CNOVon 11-24-2024 CNOV Office Visit (UCWSTR ) BARBARA SCHWAB ([id number]) 4 F Date Time Provider Department 11/24/24 10:15 AM YOSI PAYNE [facility] During your visit today, we recorded the following information about you: Temperature Pulse Respiration Blood pressure 98.2 degrees 89/minute 18/minute 118/72 Weight 47.7 kg Yosi Payne APRN.WELDING MACHINE OPERATOR FRICTION 11/24/2024 10:21 AM Signed [facility] Subjective Barbara Jodie Schwab is a 24 year old female. Patient presents with: Sore Throat: ST, cough, congestion, GUPTA and bodyaches x 2 days HPI Nontoxic-appearing 24-year-old female presents urgent care chief complaint sore throat nasal congestion cough body aches chills fatigue. Due to symptoms 2 days. Associate symptoms listed above. OTC medications none. Sick contact similar signs symptoms. Denies any chest pain shortness of breath or pleuritic pain. No abdominal pain. No change in bowel or bladder habits. Able swelling and secretions no decreased range of motion of neck. Is currently 8 weeks . Past medical history prescription medications allergies reviewed. Review of Systems Constitutional: Positive for chills and fatigue. Negative for diaphoresis and fever. HENT: Positive for rhinorrhea, sinus pain and sore throat. Negative for congestion, drooling, ear discharge, ear pain, sinus pressure, sneezing and trouble swallowing. Eyes: Negative for pain, discharge, redness, itching and visual disturbance. Respiratory: Positive for cough. Negative for chest tightness, shortness of breath and wheezing. Cardiovascular: Negative for chest pain. Gastrointestinal: Negative for abdominal distention, abdominal pain, blood in stool, constipation, diarrhea, nausea and vomiting. Genitourinary: Negative for difficulty urinating and dysuria. Musculoskeletal: Negative for arthralgias, joint swelling, neck pain and neck stiffness. Skin: Negative for rash. Neurological: Positive for headaches. Negative for dizziness, weakness and numbness. Objective BP 118/72 Pulse 89 Temp 36.8 ?C (98.2 ?F) (Tympanic) Resp 18 Wt 47.7 kg (105 lb 2.6 oz) LMP 10/01/2024 (Exact Date) SpO2 99% Physical Exam Constitutional: Appearance: Normal appearance. HENT: Head: Normocephalic. Jaw: No trismus, tenderness, swelling or pain on movement. Nose: Congestion present. Mouth/Throat: Mouth: Mucous membranes are moist. Pharynx: Oropharynx is clear. Uvula midline. No oropharyngeal exudate or posterior oropharyngeal erythema. Eyes: Conjunctiva/sclera: Conjunctivae normal. Cardiovascular: Rate and Rhythm: Normal rate. Pulmonary: Effort: Pulmonary effort is normal. Breath sounds: Normal breath sounds. No wheezing, rhonchi or rales. Abdominal: Palpations: Abdomen is soft. Tenderness: There is no abdominal tenderness. There is no guarding or rebound. Musculoskeletal: General: Normal range of motion. Cervical back: Normal range of motion and neck supple. No edema or erythema. No pain with movement. Normal range of motion. Lymphadenopathy: Cervical: No cervical adenopathy. Skin: General: Skin is warm. Findings: No rash. Neurological: General: No focal deficit present. Mental Status: She is alert and oriented to person, place, and time. Mental status is at baseline. {ASSESSMENT/PLAN: 1. Sore throat - ICD9: 462, ICD10: J02.9 (primary diagnosis) - STREP A MOLECULAR (POC) 2. Viral illness - ICD9: 079.99, ICD10: B34.9 - Discussed viral etiology and rationale for treatment. - Rapid strep negative in office today - Symptomatic treatment with prn analgesia - Supportive care with fluids and rest No evidence of bacterial infection. Strep test negative. Treat as viral etiology. self safe meds discussed. patient was educated on supportive therapies. Patient will follow up with primary care provider as needed. Patient was instructed to immediately proceed to emergency room for any new, worsening, or symptoms lasting longer than anticipated. The patient's clinical presentation is otherwise unremarkable at this time. Based on exam and clinical finding, the patient is stable for discharge. Plan of care was discussed with patient. Patient verbalizes understanding and agrees to plan of care. This note was generated using [employer] software. It may contain errors in wording, punctuation, or spelling. Yosi Payne APRN.WELDING MACHINE OPERATOR FRICTION History and Record Review Clinical information obtained from an independent historian. History obtained from or confirmed by: parent. External record(s) reviewed: prior outpatient record. Disposition The patient was discharged. OTC Medications were advised: Procedures Allergies As of Date: 11/24/2024 Noted Allergy Reaction ADHESIVE TAPE (ROSINS) 02/04/2014 2 - Rash LATEX 2 - Rash Date Reviewed: 11/24/2024 Reviewed by: Yosi Payne APRN.WELDING MACHINE OPERATOR FRICTION - (more content not included)... Normal [facility] CNOVon 11-14-2024 CNOV Office Visit (UCWSTR ) BARBARA SCHWAB ([id number]) 4 F Date Time Provider Department 11/14/24 1:15 PM ANN MARIE ARIZA During your visit today, we recorded the following information about you: Temperature Pulse Respiration Blood pressure 98.4 degrees 106/minute 16/minute 108/62 Weight 48.5 kg Ann Marie Ariza APRN.CNP 11/14/2024 1:36 PM Signed Subjective HPI HPI Barbara Schwab is a 24 year old female who presents today for CC of continued right sided back pain Back Pain: - Severe back pain causing significant discomfort and sleep disturbances. - Attempts to alleviate pain with stretching, ice application, and supportive measures have been ineffective. - Pain management options are limited due to . - She was seen on 11.08.2024 here, advised tylenol/stretching - She was seen in [place] ED on 11.11.2024 with normal labs, negative urine Pain is worse with movement and bending 7 weeks with confirmed IUP BP 108/62 Pulse 106 Temp 36.9 ?C (98.4 ?F) Resp 16 Wt 48.5 kg (106 lb 14.8 oz) LMP 10/01/2024 (Exact Date) SpO2 99% Social History Tobacco Use - Smoking status: Former Current packs/day: 0.00 Types: Cigarettes Start date: 07/05/2018 Quit date: 01/03/2019 Years since quittin.8 - Smokeless tobacco: Former Types: Chew Quit date: 01/31/2019 Vaping Use - Vaping status: current everyday user Substance Use Topics - Alcohol use: Never - Drug use: Not Currently Types: Marijuana PAST MEDICAL HISTORY Diagnosis Date - Anemia during in second trimester (HCC) 05/18/2019 - Depression - GERD (gastroesophageal reflux disease) - H/O seasonal allergies - Herpes simplex virus (HSV) infection - IBS (irritable bowel syndrome) I have confirmed and edited as necessary, the [facility] Review of Systems Constitutional: Negative for chills and fever. Musculoskeletal: Positive for back pain (right flank pain). Negative for joint pain and myalgias. Skin: Negative for itching and rash. All other systems reviewed and are negative. Objective Physical Exam History and Record Review External record(s) reviewed: prior labs/imaging and prior outpatient record. Findings from review of outpatient records: [place] ED on 11.11.2024 - negative for uti, labs normal Findings from review of prior labs/imaging: Previous Renal Function Panel Reviewed No results within last 365 days. Differential Diagnoses - musculoskeletal Recording using [employer] software for draft documentation of the visit was discussed with the patient/authorized marketing sales representative; all questions welcomed and answered. Patient/authorized marketing sales representative agreed to proceed ASSESSMENT/PLAN: 1. Acute midline low back pain without sciatica - ICD9: 724.2, ICD10: M54.50 Urine dip negative, no blood on dip Will check us advised not a good indicator for stone Advise to call OB tomorrow to set up appointment for further evaluation. - US KIDNEY/BLADDER Diagnosis and treatment plan were discussed and questions were answered to the patient's satisfaction. Pt acknowledged understanding of concepts and follow up plan. Specific signs and symptoms that would indicate the need for higher level of care were discussed in detail warranting prompt ER evaluation. Ann Marie Ariza APRN.WELDING MACHINE OPERATOR FRICTION Referring Provider: SELF [200] Allergies As of Date: 11/14/2024 Noted Allergy Reaction ADHESIVE TAPE (ROSINS) 02/04/2014 2 - Rash LATEX 2 - Rash Date Reviewed: 11/14/2024 Reviewed by: Bel Monteiro MA - Fully Assessed Reason for Visit: Low Back Pain [126] Cmt: right side x 1 week Primary Visit Diagnosis:Acute midline low back pain without sciatica [M54.50] Order(s): KIDNEY/BLADDER [[id number]] Order #: [id number] FUTURE UA DIP, URINE (POC) [[id number]] Order #: [id number] #:[id number] Prescriptions as of 11/14/2024 - Txnkzvsr-Ee-Xlg-Fe-FA tab Take 1 tablet by mouth once daily. - ondansetron orally disintegrating (ZOFRAN ODT) 4 mg disintegrating tablet Take 1 tablet by mouth every 6 hours as needed for nausea/vomiting. - busPIRone (BUSPAR) 10 mg tablet Take 10 mg by mouth three times a day. - escitalopram oxalate (LEXAPRO) 10 mg tablet Take 10 mg by mouth once daily. - valACYclovir (VALTREX) 1 gram Take 1 tablet by mouth once daily. Problem List As Of Date 11/14/2024 Noted Resolved High risk teen , antepartum [O09.899] 02/04/2019 08/12/2022 History of marijuana use [F12.91] 02/04/2019 Quit smoking [Z87.891] 02/04/2019 08/06/2019 History of depression [Z86.59] 02/04/2019 Family history of Russel's disease [Z82.0] 02/04/2019 Patient request for diagnostic testing [Z01.89] 02/04/2019 08/06/2019 Anemia during in second trimester [O9*05/18/2019 08/06/2019 Threatened premature labor in third trimester [*06/18/2019 08/06/2019 del (more content not included)... Normal [facility] UA DIP, URINE (POC)on 2024 BILIRUBIN UA (POCT) Negative Negative [facility] CLARITY UA (POCT) Clear [facility] COLOR UA (POCT) Yellow [facility] GLUCOSE UA (POCT) Negative Negative mg/dL [facility] Hemoglobin Ql (U) Negative Negative [facility] KETONE UA (POCT) Negative Negative mg/dL [facility] LEUKOCYTES UA (POCT) Negative Negative [facility] NITRITE UA (POCT) Negative Negative [facility] PH UA (POCT) 7 4.5 - 8.0 [facility] Protein Ql (U) Negative Negative mg/dL [facility] SPECIFIC GRAVITY UA (POCT) 1.015 1.005 - 1.030 [facility] UROBILINOGEN UA (POCT) 0.2 Luz Maria l E.U./dL [facility] Location:[facility], [address] [place] [address], [place], [place], [address] [place] [address] POINT OF CARE [facility] Absolute lymphocyte countOrd ered By: Michele Mar on 11-11-2024 Lymphocytes Auto (Unsp spec) [#/Vol] 2.04 10*3/uL 0.83-4.51 [facility] Absolute neutrophil countOrd ered By: Michele Mar on 11-11-2024 Neutrophils (Bld) [#/Vol] 8.4 10*3/uL High 2.0-7.7 [facility] Amphetamine detection with 1 000 ng/mL as cutoffOrdered By: Michele Mar on 11-11-2024 Amphetamines Screen method >1000 ng/mL Ql (U) Negative < 200 ng/mL [facility] Anion gap in Serum or Plasma Ordered By: Michele Mar on 11-11-2024 Anion gap [Moles/Vol] 10 mmol/L 5-[address] [facility] Automated lymphocyte count a s percentage of total leukocytesOrdered By: Michele Mar on 11-11-2024 Lymphocytes/100 WBC Auto (Unsp spec) 18.5 % Low 19-41 [facility] BUN/creatinine ratioOrdered By: Michele Mar on 11-11-2024 Urea nitrogen/Creatinine [Mass ratio] 8.4 mg/mg Low 10-20 [facility] Basophil percentageOrdered B y: Michele Mar on 11-11-2024 Basophils/100 WBC (Bld) 0.5 % 0-1 [facility] Bilirubin Test strip Ql (U)O rdered By: Michele Mar on 11-11-2024 Bilirubin Ql (U) Negative Negative [facility] Bilirubin, totalOrdered By: Michele Mar on 11-11-2024 Bilirubin [Mass/Vol] 0.83 mg/dL 0.00-1.30 [facility] CBC W/Diff, Automatedon 05- Absolute Lymph 2.04 X10 3/uL Normal 0.83-4.51 [facility] Comment on above: Performed By: #### L 500.4050, L100.0100 ####[facility] [address] [place], [address] Absolute Neut 8.4 X10 3/uL High 2.0-7.7 [facility] Comment on above: Performed By: #### L 500.4050, L100.0100 ####[facility] [address] [place], [address] Basophils/100 WBC (Bld) 0.5 % Normal 0-1 [facility] Comment on above: Performed By: #### L 500.4050, L100.0100 ####[facility] [address] [place], [address] Eosinophils/100 WBC (Bld) 0.1 % Normal 0-5 [facility] Comment on above: Performed By: #### L 500.4050, L100.0100 ####[facility] [address] [place], [address] Erythrocyte distribution width (RBC) [Ratio] 13.2 % Normal 11.6-14.6 [facility] Comment on above: Performed By: #### L 500.4050, L100.0100 ####[facility] [address] [place], [address] Hematocrit (Bld) [Volume fraction] 37.9 % Normal 37-47 [facility] Comment on above: Performed By: #### L 500.4050, L100.0100 ####[facility] [address] [place], [address] Hemoglobin (Bld) [Mass/Vol] 12.9 g/dL Normal 12.0-15.0 [facility] Comment on above: Performed By: #### L 500.4050, L100.0100 ####[facility] [address] [place], [address] IG% 0.300 Normal 0.0-0.9 [facility] Comment on above: Result Comment: IG% - Immature Granulocytes (promyelocytes, myelocytes and metamyelocytes) > 1% indicates that a LEFT SHIFT is Present. Performed By: #### L 500.4050, L100.0100 ####[facility] [address] [place], [address] Lymphocytes/100 WBC (Bld) 18.5 % Low 19-41 [facility] Comment on above: Performed By: #### L 500.4050, L100.0100 ####[facility] [address] [place], [address] MCH (RBC) [Entitic mass] 30.5 pg Normal 27.0-32.0 [facility] Comment on above: Performed By: #### L 500.4050, L100.0100 ####[facility] [address] [place], [address] MCHC (RBC) [Mass/Vol] 34.0 g/dL Normal 32-[address] [facility] Comment on above: Performed By: #### L 500.4050, L100.0100 ####[facility] [address] [place], [address] MCV (RBC) [Entitic vol] 89.6 fL Normal 81-99 [facility] Comment on above: Performed By: #### L 500.4050, L100.0100 ####[facility] [address] [place], [address] Monocytes/100 WBC (Bld) 4.2 % Normal 0-10 [facility] Comment on above: Performed By: #### L 500.4050, L100.0100 ####[facility] [address] [place], [address] Neutrophils/100 WBC (Bld) 76.4 % High 47-70 [facility] Comment on above: Performed By: #### L 500.4050, L100.0100 ####[facility] [address] [place], [place], [address] Nucleated RBC (Bld) [#/Vol] 0 10*3/uL Normal 0-5 [facility] Comment on above: Performed By: #### L 500.4050, L100.0100 ####[facility] [address] [place], [address] Platelet mean volume (Bld) [Entitic vol] 10.9 fL Normal 6.2-12.0 [facility] Comment on above: Performed By: #### L 500.4050, L100.0100 ####[facility] [address] [place], [address] Platelets (Bld) [#/Vol] 279 10*3/uL Normal 150-450 [facility] Comment on above: Performed By: #### L 500.4050, L100.0100 ####[facility] [address] [place], [address] RBC (Bld) [#/Vol] 4.23 10*6/uL Normal 4.2-5.4 [facility] Comment on above: Performed By: #### L 500.4050, L100.0100 ####[facility] [address] [place], [address] RDW SD 43.1 fl Normal 35.1-43.9 [facility] Comment on above: Performed By: #### L 500.4050, L100.0100 ####[facility] [address] [place], [address] WBC (Bld) [#/Vol] 11.0 10*3/uL Normal 4.4-11.0 [facility] Comment on above: Performed By: #### L 500.4050, L100.0100 ####[facility] [address] [place], [address] Carbon dioxide, total [Moles /volume] in Central venous bloodOrdered By: Michele Mar on 11-11-2024 CO2 [Moles/Vol] 21.4 mmol/L 21.0-32.0 [facility] Chloride assayOrdered By: Angelito Mar on 11-11-2024 Chloride [Moles/Vol] 106 mmol/L 98-108 [facility] Comprehensive Metabolic Prof ilon 11-11-2024 Albumin [Mass/Vol] 4.5 g/dL Normal 3.5-5.0 [facility] Comment on above: Performed By: #### L 500.4050, L100.0100 ####[facility] [address] [place], [address] Albumin/Globulin [Mass ratio] 2.9 {ratio} High 0.9-2.4 [facility] Comment on above: Performed By: #### L 500.4050, L100.0100 ####[facility] [address] [place], [address] ALK PHOS 39 U/L Normal 35-104 [facility] Comment on above: Performed By: #### L 500.4050, L100.0100 ####[facility] [address] [place], [address] ALT [Catalytic activity/Vol] 6 U/L Normal <=34 [facility] Comment on above: Performed By: #### L 500.4050, L100.0100 ####[facility] [address] [place], [address] AST [Catalytic activity/Vol] 18 U/L Normal <=31 [facility] Comment on above: Performed By: #### L 500.4050, L100.0100 ####[facility] [address] [place], [address] Bilirubin [Mass/Vol] 0.83 mg/dL Normal 0.00-1.30 [facility] Comment on above: Performed By: #### L 500.4050, L100.0100 ####[facility] [address] [place], [address] BUN/CRE 8.4 RATIO Low 10-20 [facility] Comment on above: Performed By: #### L 500.4050, L100.0100 ####[facility] [address] [place], [address] Calcium [Mass/Vol] 8.8 mg/dL Normal 7.6-11.0 [facility] Comment on above: Performed By: #### L 500.4050, L100.0100 ####[facility] [address] [place], [address] Chloride [Moles/Vol] 106 mmol/L Normal 98-108 [facility] Comment on above: Performed By: #### L 500.4050, L100.0100 ####[facility] [address] [place], [address] CO2 [Moles/Vol] 21.4 mmol/L Normal 21.0-32.0 [facility] Comment on above: Performed By: #### L 500.4050, L100.0100 ####[facility] [address] [place], [address] Creatinine [Mass/Vol] 0.55 mg/dL Low 0.70-1.[address] [facility] Comment on above: Performed By: #### L 500.4050, L100.0100 ####[facility] [address] [place], [address] ECRCL 121.32 ml/min Normal 50-250 [facility] Comment on above: Performed By: #### L 500.4050, L100.0100 ####[facility] [address] [place], [address] GAP 10 Normal 5-15 [facility] Comment on above: Performed By: #### L 500.4050, L100.0100 ####[facility] [address] [place], [address] GFR/1.73 sq M.predicted among non-blacks MDRD (S/P/Bld) [Vol rate/Area] 133 mL/min/{1.73_m2} Normal >60 [facility] Comment on above: Result Comment: mL/m in/1.73m2 CKD-EPI Creatinine Equation (2020) Performed By: #### L 500.4050, L100.0100 ####[facility] [address] [place], [address] Globulin (S) [Mass/Vol] 1.5 g/dL Low 2.2-4.2 [facility] Comment on above: Performed By: #### L 500.4050, L100.0100 ####[facility] [address] [place], [address] Glucose [Mass/Vol] 73 mg/dL Normal 70-99 [facility] Comment on above: Performed By: #### L 500.4050, L100.0100 ####[facility] [address] [place], [address] Potassium [Moles/Vol] 3.6 mmol/L Normal 3.3-5.[address] [facility] Comment on above: Performed By: #### L 500.4050, L100.0100 ####[facility] [address] [place], [address] Sodium [Moles/Vol] 138 mmol/L Normal 133-145 [facility] Comment on above: Performed By: #### L 500.4050, L100.0100 ####[facility] [address] [place], [address] T PROT 6.1 g/dL Normal 5.9-8.4 [facility] Comment on above: Performed By: #### L 500.4050, L100.0100 ####[facility] [address] [place], [address] Urea nitrogen [Mass/Vol] 5 mg/dL Normal 4-19 [facility] Comment on above: Performed By: #### L 500.4050, L100.0100 ####[facility] [address] [place], [address] Emergency Department Summary on 11-11-2024 Emergency Department Summary [facility] Medical Records Department [address] [place] [address] Emergency Department Summary 11/11/24 MR#: [id number] Acct: [id number] Name: BARBARA SCHWAB Rep #: [id number] : 2000 24 From: Michele Mar MD PCP: Dr. Melissa Cabezas MD Status:REG ER Location: ED HPI History of Present Illness Chief Complaint: Flank Pain Narrative Narrative: 24-year-old female past medical history of of ruptured ectopic with right salpingectomy last year presents with right flank pain that she has had since this morning. She relates history that she was seen in urgent care for upper back pain. She was taking Tylenol which was starting to relieve her pain. She is 6 weeks gestation currently and sees [facility] at the [facility]. She and her state that an ultrasound which did show an intrauterine . She denies any vaginal bleeding or lower pelvic pain but states that when she bends over or moves she has pain in the right flank. It is both dull and achy and then can become sharp and stabbing. She denies any fevers or chills, no nausea or vomiting, no dysuria or hematuria, unrelieved with Tylenol. [facility] Medical History IBS (irritable bowel syndrome) Depression GERD (gastroesophageal reflux disease) Home Medications ???Medication ???Instructions ???Recorded ???Last Taken ???Type Prilosec 1 tab PO PRN ACID REFLUX 06/26/19 05/01/21 06:30 History valacyclovir 1 gram tablet 1,000 mg PO DAILY PRN hsv 11/11/20 05/01/21 06:30 History (Valtrex) jsuiyagk-jqw-Pr-FA 1 mg 1 tab PO DAILY 03/07/21 04/01/24 History tablet metronidazole 500 mg tablet 500 mg PO BID 04/01/24 03/31/24 Hi story Allergy/AdvReac Type Severity Reaction Status Date / Time Latex, Natural Rubber AdvReac Rash Verified 11/11/24 11:49 Social History Smoking Status: Current every day smoker tobacco type: e-cigarettes ROS ROS ED ROS Narrative Constitutional: No fever, no chills. Cardiovascular: No chest pain. No palpitations. No pedal edema. Respiratory: No cough, no shortness of breath. Abdominal: No abdominal pain. No nausea. No vomiting. Genitourinary: No dysuria. No hematuria. No pelvic pain. No vaginal bleeding. Musculoskeletal: No myalgias. No arthralgias. Positive right low back pain. EXAM Physical Exam Narrative Exam Narrative: Afebrile. Vital signs noted. Nontoxic-appearing. Cardiovascular examination reveals a regular rate and rhythm. Lungs are clear to auscultation bilaterally. The abdomen is soft, nontender, without guarding or rebound. Positive bowel sounds. No CVA tenderness to percussion right. Neurological examination nonfocal nonlateralizing. Const Vital Signs: 11/11/24 11:49 11/11/24 13:49 11/11/24 15:21 Temperature 96.2 F L Temperature Source Temporal Pulse Rate 98 64 82 Respiratory Rate 16 18 16 Blood Pressure 112/82 H 108/78 114/62 Blood Pressure Mean 92 88 79 Pulse Ox 98 98 100 Oxygen Delivery Method Room Air Room Air Room Air MDM MDM MDM Narrative Medical decision making narrative: The differential diagnosis includes but not limited to pyelonephritis versus ureterolithiasis versus musculoskeletal back pain. Workup is mildly limited secondary to patient's being 6 weeks gestation. I have low concern for ectopic as they state they had an ultrasound which showed an intrauterine . Urinalysis will be obtained as well as basic laboratory work to check kidney function. Ultrasound will be performed of the kidney and bladder to look for hydronephrosis. I reviewed her laboratory work and she has normal white count 11.0 with hemoglobin 12.9, hematocrit 37.9, platelet count 279. Electrolyte panel is grossly unremarkable. LFTs are normal. Urinalysis obtained and while there are 15 ketones, negative nitrites and no sign of infection with 0-5 WBCs. I do not feel antibiotics are indicated. Patient did request that urine for drugs of abuse be obtained as she is missing her drug court today. I reviewed this and it is negative. Review of the ultrasound radiology report shows no evidence of hydronephrosis on the right, no obstructing stone noted. At this point in time, I feel her back pain may be more musculoskeletal in nature. She will continue Tylenol as she is currently 6 weeks gestation. She will follow-up with her [facility]. I feel she can be discharged safely home with follow-up. Return instructions were reviewed. Disposition is discharged home in stable condition. History Record Review Discussion w/independent historian: Patient Additional record(s) reviewed:: Prior ED visit (Noncontributory to current chief complaint) Lab Data Attestation: I revie (more content not included)... Normal [facility] Eosinophil percentageOrdered By: Michele Mar on 11-11-2024 Eosinophils/100 WBC (Bld) 0.1 % 0-5 [facility] Erythrocyte distribution wid th ratioOrdered By: Michele Mar on 11-11-2024 Erythrocyte distribution width (RBC) [Ratio] 13.2 % 11.6-14.6 [facility] Erythrocyte distribution wid th standard deviationOrdered By: Michele Mar on 11-11-2024 Erythrocyte distribution width (RBC) [Ratio] 43.1 fl 35.1-43.9 [facility] Glomerular filtration rate ( GFR) estimation/1.73 sq m using serum, plasma, or whole bOrdered By: Michele Mar on 11-11-2024 GFR/1.73 sq M.predicted among non-blacks MDRD (S/P/Bld) [Vol rate/Area] 133 mL/min/{1.73_m2} >60 [facility] Comment on above: mL/min/1.73m2 CKD-EP I Creatinine Equation (2020) Hematocrit Auto (Bld) [Volum e fraction]Ordered By: Michele Mar on 11-11-2024 Hematocrit (Bld) [Volume fraction] 37.9 % 37-47 [facility] Hemoglobin measurementOrdere d By: Michele Mar on 11-11-2024 Hemoglobin (Bld) [Mass/Vol] 12.9 g/dL 12.0-15.0 [facility] Immature granulocytes/100 WB C Auto (Bld)Ordered By: Michele Mar on 11-11-2024 Immature granulocytes/100 WBC (Bld) 0.300 % 0.0-0.9 [facility] Comment on above: IG% - Immature Granu locytes (promyelocytes, myelocytes and metamyelocytes) > 1% indicates that a LEFT SHIFT is Present. Ketones Test strip Ql (U)Ord ered By: Michele Mar on 11-11-2024 Ketones Ql (U) 15 mg/dl High Negative [facility] Kidney and Bladderon 025 Kidney and Bladder [facility] Imaging Services [address] [place] [address] Kidney and Bladder MR#: [id number] Acct: [id number] Name: BARBARA SCHWAB Rep #: [id number] : 2000 F 24 From: Ru Sethi PCP: Dr. Melissa Cabezas MD Status: REG ER Study: Kidney and Bladder Date of Exam: 11/11/24 Exam# [id number] Ordering Dr: Michele Mar MD PROCEDURE: KIDNEY AND BLADDER 11/11/2024 REASON FOR EXAM: RIGHT FLANK PAIN TECHNIQUE: Bilateral renal ultrasound. COMPARISON: None. FINDINGS: Kidneys: No renal mass is seen [place]: No significant hydronephrosis is seen on either side Cysts or Masses: None Other: Ureters are not visualized. RIGHT Kidney: No sonographic finding of right renal calculus is seen. Size: 11.2 x 5.6 x 5.4 cm Cortical Thickness (if discernible): 14 mm (>6mm is normal) LEFT Kidney: A nonobstructive left renal calculus is sonographically evident inferior pole, measured at 2.6 x 2.0 x 1.1 mm.. Size: 11.0 x 5.4 x 3.6 cm Cortical Thickness (if discernible): 12 mm (>6mm is normal). The urinary bladder is not visualized, and presumably decompressed. US/Kidney and Bladder IMPRESSION: 1. Nonobstructive small left inferior renal calculus. No right-sided calculus is sonographically identified. 2. No evidence of hydronephrosis. Reading Location: [place] [address] CC: Dr. Michele Mar MD; Dr. Melissa Cabezas MD Residential Program Manager: Signed Normal [facility] Laboratory - Chemistry and C hemistry - challengeOrdered By: Michele Mar on 11-11-2024 AST [Catalytic activity/Vol] 18 U/L <32 [facility] MCV (mean corpuscular volume ) determinationOrdered By: Michele Mar on 11-11-2024 MCV (RBC) [Entitic vol] 89.6 fL 81-99 [facility] Mean corpuscular hemoglobin (MCH) determinationOrdered By: Michele Mar on 11-11-2024 MCH (RBC) [Entitic mass] 30.5 pg 27.0-32.0 [facility] Mean corpuscular hemoglobin concentration (MCHC) determinationOrdered By: Michele Mar on 11-11-2024 MCHC (RBC) [Mass/Vol] 34.0 g/dL 32-[address] [facility] Mean platelet volume determi nationOrdered By: Michele Mar on 11-11-2024 Platelet mean volume (Bld) [Entitic vol] 10.9 fL 6.2-12.0 [facility] Microscopic analysis of urin e for red blood cells (RBC)Ordered By: Michele Mar on 11-11-2024 Microscopic analysis of urine for red blood cells (RBC) 0-5 SEEN /hpf 0-5 [facility] Monocyte percentageOrdered B y: Michele Mar on 11-11-2024 Monocytes/100 WBC (Bld) 4.2 % 0-10 [facility] Mucus LM Ql (Urine sed)Order ed By: Michele Mar on 11-11-2024 Mucus Ql (Urine sed) 0 SEEN /hpf [facility] Neutrophil percentageOrdered By: Michele Mar on 11-11-2024 Neutrophils/100 WBC (Bld) 76.4 % High 47-70 [facility] Nitrite Test strip Ql (U)Ord ered By: Michele Mar on 11-11-2024 Nitrite Ql (U) Negative Negative [facility] No Panel InformationOrdered By: Michele Mar on 11-11-2024 Urine Buprenorphine Qualitative Negative < 200 ng/mL [facility] Urine Oxycodone Screen Negative < 100 ng/mL [facility] Nucleated red blood cell per centageOrdered By: Michele Mar on 11-11-2024 Nucleated RBC/100 WBC (Bld) [Ratio] 0 % 0-5 [facility] Platelet countOrdered By: Angelito Mar on 11-11-2024 Platelets (Bld) [#/Vol] 279 10*3/uL 150-450 [facility] Potassium measurement (mass/ volume)Ordered By: Michele Mar on 11-11-2024 Potassium (Unsp spec) [Mass/Vol] 3.6 mmol/L 3.3-5.1 [facility] Protein Test strip Ql (U)Ord ered By: Michele Mar on 11-11-2024 Protein Ql (U) Negative Negative [facility] Quantitative urine opiates m easurementOrdered By: Michele Mar on 11-11-2024 Opiates Ql (U) Negative < 300 ng/mL [facility] RBC Auto (Bld) [#/Vol]Ordere d By: Michele Mar on 11-11-2024 RBC (Bld) [#/Vol] 4.23 10*6/uL 4.2-5.4 [facility] Screening urine fentanyl laine surementOrdered By: Michele Mar on 11-11-2024 fentaNYL Screen Ql (U) Negative [facility] Serum creatinine measurement (mass/volume)Ordered By: Michele Mar on 11-11-2024 Creatinine [Mass/Vol] 0.55 mg/dL Low 0.70-1.[address] [facility] Serum globulin measurementOr dered By: Michele Mar on 11-11-2024 Globulin (S) [Mass/Vol] 1.5 g/dL Low 2.2-4.2 [facility] Serum glucose measurement (m ass/volume)Ordered By: Michele Mar on 11-11-2024 Glucose [Mass/Vol] 73 mg/dL 70-99 [facility] Serum or plasma alanine tee otransferase (ALT) measurementOrdered By: Michele Mar on 11-11-2024 ALT [Catalytic activity/Vol] 6 U/L <35 [facility] Serum or plasma albumin xochitl urement (mass/volume)Ordered By: Michele Mar on 11-11-2024 Albumin [Mass/Vol] 4.5 g/dL 3.5-5.0 [facility] Serum or plasma albumin/glob ulin mass ratioOrdered By: Michele Mar on 11-11-2024 Albumin/Globulin [Mass ratio] 2.9 {ratio} High 0.9-2.4 [facility] Serum or plasma alkaline dee sphatase measurementOrdered By: Michele Mar on 11-11-2024 ALP [Catalytic activity/Vol] 39 U/L 35-104 [facility] Serum or plasma calcium xochitl urement (mass/volume)Ordered By: Michele Mar on 11-11-2024 Calcium [Mass/Vol] 8.8 mg/dL 7.6-11.0 [facility] Serum or plasma urea nitroge n measurement (mass/volume)Ordered By: Michele Mar on 11-11-2024 Urea nitrogen [Mass/Vol] 5 mg/dL 4-19 [facility] Sodium levelOrdered By: Michele Mar on 11-11-2024 Sodium [Moles/Vol] 138 mmol/L 133-145 [facility] Squamous epithelial cells de tection in urine sediment by light microscopyOrdered By: Michele Mar on 11-11-2024 Epithelial cells.squamous LM Ql (Urine sed) 0-5 SEEN /hpf - [facility] Total proteinOrdered By: Gertrudis Mar on 11-11-2024 Protein [Mass/Vol] 6.1 g/dL 5.9-8.4 [facility] Urinalysis, Completeon 11-11 EPI,SQUAMOUS 0-5 SEEN Normal - [facility] Comment on above: Order Comment: JASSON CTOR TO SPECIFY Performed By: #### L 400.0001 ####[facility] [address] [place], [address] RBC 0-5 SEEN Normal 0-5 [facility] Comment on above: Order Comment: JASSON CTOR TO SPECIFY Performed By: #### L 400.0001 ####[facility] [address] [place], [address] WBC 0-5 SEEN Normal 0-5 [facility] Comment on above: Order Comment: JASSON CTOR TO SPECIFY Performed By: #### L 400.0001 ####[facility] [address] [place], [address] BACTERIA 0 SEEN Normal None Seen [facility] Comment on above: Order Comment: JASSON CTOR TO SPECIFY Performed By: #### L 400.0001 ####[facility] [address] [place], [address] Mucus Ql (Urine sed) 0 SEEN Normal [facility] Comment on above: Order Comment: JASSON CTOR TO SPECIFY Performed By: #### L 400.0001 ####[facility] [address] [place] [address] Urine Drug Screen (VISTA)on 11-11-2024 AMPHETAMINES Negative Normal <1000 ng/mL [facility] Comment on above: Performed By: #### L 505.5000 ####[facility] [address] [place] [address] BARBITIURATES Negative Normal < 200 ng/mL [facility] Comment on above: Performed By: #### L 505.5000 ####[facility] [address] [place] [id number] BENZODIAZIPINE Negative Normal < 200 ng/mL [facility] Comment on above: Performed By: #### L 505.5000 ####[facility] [address] [place] [address] BUP Ur Drug Scr Negative Normal < 200 ng/mL [facility] Comment on above: Performed By: #### L 505.5000 ####[facility] [address] [place] [address] COCAINE Negative Normal < 300 ng/mL [facility] Comment on above: Performed By: #### L 505.5000 ####[facility] [address] [place] [address] Fentanyl Negative Normal [facility] Comment on above: Performed By: #### L 505.5000 ####[facility] [address] [place] [address] METHADONE Negative Normal < 300 ng/mL [facility] Comment on above: Performed By: #### L 505.5000 ####[facility] [address] [place] [address] OPIATES Negative Normal < 300 ng/mL [facility] Comment on above: Performed By: #### L 505.5000 ####[facility] [address] [place], [address] OXYCODONE Negative Normal < 100 ng/mL [facility] Comment on above: Performed By: #### L 505.5000 ####[facility] [address] [place], [address] PCP Negative Normal < 25 ng/mL [facility] Comment on above: Performed By: #### L 505.5000 ####[facility] [address] [place], [address] THC Negative Normal < 50 ng/mL [facility] Comment on above: Performed By: #### L 505.5000 ####[facility] [address] [place], [address] AMPHETAMINES Normal <1000 ng/mL [facility] Comment on above: Result Comment: Stephanie barahonaed via OM: MD Ordered Performed By: #### L 505.5000 #### [facility] [address] [place], [address] BARBITIURATES Normal < 200 ng/mL [facility] Comment on above: Result Comment: Stephanie barahonaed via OM: Ordered Performed By: #### L 505.5000 #### [facility] [address] [place], [address] BENZODIAZIPINE Normal < 200 ng/mL [facility] Comment on above: Result Comment: Stephanie barahonaed via OM: Ordered Performed By: #### L 505.5000 #### [facility] [address] [place], [address] BUP Ur Drug Scr Normal < 200 ng/mL [facility] Comment on above: Result Comment: Stephanie barahonaed via OM: Ordered Performed By: #### L 505.5000 #### [facility] [address] [place], [address] COCAINE Normal < 300 ng/mL [facility] Comment on above: Result Comment: Canc elled via OM: MD Ordered Performed By: #### L 505.5000 #### [facility] [address] [place], [address] Fentanyl Normal [facility] Comment on above: Result Comment: Canc elled via OM: MD Ordered Performed By: #### L 505.5000 #### [facility] [address] [place], [address] METHADONE Normal < 300 ng/mL [facility] Comment on above: Result Comment: Canc elled via OM: MD Ordered Performed By: #### L 505.5000 #### [facility] [address] [place], [address] OPIATES Normal < 300 ng/mL [facility] Comment on above: Result Comment: Canc elled via OM: MD Ordered Performed By: #### L 505.5000 #### [facility] [address] [place], [address] OXYCODONE Normal < 100 ng/mL [facility] Comment on above: Result Comment: Canc elled via OM: MD Ordered Performed By: #### L 505.5000 #### [facility] [address] [place], [address] PCP Normal < 25 ng/mL [facility] Comment on above: Result Comment: Canc elled via OM: MD Ordered Performed By: #### L 505.5000 #### [facility] [address] [place], [address] THC Normal < 50 ng/mL [facility] Comment on above: Result Comment: Canc elled via OM: MD Ordered Performed By: #### L 505.5000 #### [facility] [address] [place], [address] Urine benzodiazepine levelOr dered By: Michele Mar on 11-11-2024 Benzodiazepines Ql (U) Negative < 200 ng/mL [facility] Urine clarityOrdered By: Gertrudis Mar on 11-11-2024 Clarity (U) Clear Clear [facility] Urine cocaine levelOrdered B y: Michele Mar on 11-11-2024 Cocaine Ql (U) Negative < 300 ng/mL [facility] Urine color determinationOrd ered By: Michele Mar on 11-11-2024 Color (U) Straw Yellow [facility] Urine nyzdw-4-qvsgptpjafiqey abinol (THC) measurementOrdered By: Michele Mar on 11-11-2024 Cannabinoids Screen Ql (U) Negative < 50 ng/mL [facility] Urine glucose detectionOrder ed By: Michele Mar on 11-11-2024 Glucose Ql (U) Normal mg/dl Normal [facility] Urine leukocyte esterase det ection by dipstickOrdered By: Michele Mar on 11-11-2024 Leukocyte esterase Test strip Ql (U) 25 /ul High Negative [facility] Urine pHOrdered By: Michele carr on 11-11-2024 pH (U) 6.5 [pH] 5.0 - 8.0 [facility] Urine phencyclidine (PCP) de tectionOrdered By: Michele Mar on 11-11-2024 Phencyclidine Ql (U) Negative < 25 ng/mL [facility] Urine sediment bacteria coun t by microscopy (number/high power field)Ordered By: Michele Mar on 11-11-2024 Bacteria LM.HPF (Urine sed) [#/Area] 0 /[HPF] None Seen [facility] Urine specific gravity measu rementOrdered By: Michele Mar on 11-11-2024 Specific gravity (U) [Rel density] 1.010 1.002-1.030 [facility] Urine urobilinogen measureme ntOrdered By: Michele Mar on 11-11-2024 Urobilinogen Ql (U) Normal mg/dl Normal [facility] White blood cell (WBC) count Ordered By: Michele Mar on 11-11-2024 WBC (Bld) [#/Vol] 11.0 10*3/uL 4.4-11.0 [facility] White blood cell countOrdere d By: Michele Mar on 11-11-2024 White blood cell count 0-5 SEEN /hpf 0-5 [facility] Examination level ultrasound on 11-10-2024 Indication dating, viability, of unknown location Impression Normal appearing retroverted uterus measuring 86 mm x 63 mm x 47 mm. The central endometrial complex contains a gestational sac with a yolk sac and pole measuring 2.7 mm. cardiac activity is present. Small subchorionic hematoma noted measuring 13 mm x 12 mm x 8 mm. Left ovary contains a 22 x 18 x 16 mm corpus luteum cyst. Normal appearing right ovary. No adnexal masses identified. There is no free fluid visualized in the peritoneal cavity. Recommendations Live single intrauterine with ABRAHAM 07/08/2025. Follow up as clinically indicated. Method Transabdominal and transvaginal ultrasound examination, 3D ultrasound examination, Color Doppler examination. View: Adequate visualization Number of embryos: uncertain Dating LMP on: 10/01/2024 GA by LMP 5 w + 4 d ABRAHAM by LMP: 07/08/2025 Ultrasound examination on: 11/09/2024 GA by U/S based upon: CRL GA by U/S 5 w + 6 d ABRAHAM by U/S: 07/06/2025 Assigned: based on the LMP, selected on 11/09/2024 Assigned GA 5 w + 4 d Assigned ABRAHAM: 07/08/2025 Assessment Gestational sac: visualized Location: intrauterine Yolk sac: visualized YS 3.3 mm Embryo: visualized CRL 2.7 mm 5w 6d 2% [place] Cardiac activity: present FHR 114 bpm Uterus Uterus: Visualized Uterus position: retroverted Description of uterine malformations: none Myometrium: normal Endometrium: small subchorionic hematoma noted measuring approx 13 mm x 12 mm x 8 mm Cervix details: normal Uterus length 86 mm Uterus width 63 mm Uterus height 47 mm Uterus Vol 134.8 cm Fibroids: No fibroids identified Polyps: No polyps identified Cul de Sac free fluid visualized: small Right Ovary Rt ovary: Visualized Rt ovary morphology: premenopausal normal follicular Rt ovary D1 29 mm Rt ovary D2 13 mm Rt ovary D3 11 mm Rt ovary Vol 2.2 cm Left Ovary Lt ovary: Visualized Lt ovary morphology: premenopausal normal follicular Lt ovary D1 29 mm Lt ovary D2 24 mm Lt ovary D3 21 mm Lt ovary Vol 7.6 cm Lt ovarian corpus luteum: hemorrhagic Lt ovarian corpus luteum D1 21.6 mm Lt ovarian corpus luteum D2 17.7 mm Lt ovarian corpus luteum D3 15.9 mm Performed By: Gianna Madison RDMS Read By: Bobbi Howard M.D. MATERNAL MEDICINE [facility] CNOVon 11-09-2024 CNOV Office Visit (OBGYWM ) ZAHEERBARBARA ([id number]) 4 F Date Time Provider Department 11/09/24 9:30 AM [facility] TECH 1 WSTR MOB OBGYWM During your visit today, we recorded the following information about you: Bobbi Howard MD 11/10/2024 8:54 AM Signed Barbara Jodie Schwab is a 24 year old female who presented for obstetrician/gynecologist ultrasound today. Encounter Diagnosis ICD-10-CM 1. History of ectopic Z87.59 2. Encounter for test, result positive (HCC) Z32.01 Please see report under imaging tab. Bobbi Howard MD November 10, 2024 8:54 AM Referring Provider: REJI DING [[id number]] Allergies As of Date: 11/09/2024 Noted Allergy Reaction ADHESIVE TAPE (ROSINS) 02/04/2014 2 - Rash LATEX 2 - Rash Date Reviewed: 11/08/2024 Reviewed by: Rufina Barron LPN - Fully Assessed Visit Diagnoses:History of ectopic [Z87.59] Encounter for test, result positive (HCC) [Z32.01] Order(s):OBSTETRIC ULTRASOUND WHI [[id number]] Order #: [id number]. #:[id number] IEWPOINTQty: 1 Prescriptions as of 11/10/2024 - Chzcdupn-Lc-Are-Fe-FA tab Take 1 tablet by mouth once daily. - ondansetron orally disintegrating (ZOFRAN ODT) 4 mg disintegrating tablet Take 1 tablet by mouth every 6 hours as needed for nausea/vomiting. - busPIRone (BUSPAR) 10 mg tablet Take 10 mg by mouth three times a day. - escitalopram oxalate (LEXAPRO) 10 mg tablet Take 10 mg by mouth once daily. - valACYclovir (VALTREX) 1 gram Take 1 tablet by mouth once daily. Problem List As Of Date 11/09/2024 Noted Resolved High risk teen , antepartum [O09.899] 02/04/2019 08/12/2022 History of marijuana use [F12.91] 02/04/2019 Quit smoking [Z87.891] 02/04/2019 08/06/2019 History of depression [Z86.59] 02/04/2019 Family history of [place]'s disease [Z82.0] 02/04/2019 Patient request for diagnostic testing [Z01.89] 02/04/2019 08/06/2019 Anemia during in second trimester [O9*05/18/2019 08/06/2019 Threatened premature labor in third trimester [*06/18/2019 08/06/2019 delivery, delivered [O60.10X0] 08/06/2019 08/12/2022 History of delivery [Z87.51] 11/01/2020 History of herpes genitalis [Z86.19] 11/01/2020 Nausea/vomiting in [O21.9] 11/01/2020 08/12/2022 Dichorionic diamniotic twin in second*02/13/2021 06/03/2021 Cervical insufficiency during in seco*03/15/2021 08/12/2022 Threatened labor, second trimester [O47*03/15/2021 08/12/2022 premature rupture of membranes [O42.919]05/02/2021 08/12/2022 Threatened miscarriage in early [O20.*03/26/2024 Encounter Status:Closed by BOBBI HOWARD on 11/10/24 Normal [facility] Examination level ultrasound on 11-09-2024 Radiology Study observation (narrative) [facility] SUZANon 11-08-2024 CNOV Office Visit (UCWSTR ) BARBARA SCHWAB ([id number]) 4 F Date Time Provider Department 11/08/24 9:15 AM ALLEN WILSONWSTR During your visit today, we recorded the following information about you: Temperature Pulse Respiration Blood pressure 97.3 degrees 97/minute 18/minute 102/70 Weight 47.9 kg Allen Wilson APRN.WELDING MACHINE OPERATOR FRICTION 11/08/2024 10:15 AM Signed [facility] Subjective HPI HPI Barbara Schwab is a 24 year old female who presents today for CC of low back/hip pain after lifting beds few days ago. Denies injury. Has tried otc medication for relief. Symptoms are worsened by rom. Patient is 6 weeks . Denies abdominal pain, vaginal bleeding, change in bowel/bladder habits. .Patient presents with: lower back and right hip pain: X 3 days-heavy lifting PAST MEDICAL HISTORY Diagnosis Date Anemia during in second trimester (HCC) 05/18/2019 Depression GERD (gastroesophageal reflux disease) H/O seasonal allergies Herpes simplex virus (HSV) infection IBS (irritable bowel syndrome) PAST SURGICAL HISTORY Procedure Laterality Date NONE SALPINGECTOMY Right 04/01/2024 laparoscopic, [facility] for ectopic ALLERGIES Adhesive Tape (Rosins) and Latex MEDICATIONS Baahsxlw-Ha-Jfw-Fe-FA tab Take 1 tablet by mouth once daily. ondansetron orally disintegrating (ZOFRAN ODT) 4 mg disintegrating tablet Take 1 tablet by mouth every 6 hours as needed for nausea/vomiting. busPIRone (BUSPAR) 10 mg tablet Take 10 mg by mouth three times a day. escitalopram oxalate (LEXAPRO) 10 mg tablet Take 10 mg by mouth once daily. valACYclovir (VALTREX) 1 gram Take 1 tablet by mouth once daily. FAMILY HISTORY Problem Relation Age of Onset Hypertension Mother other (insomnia) Mother other (fibromyalgia) Mother other (IBS) Mother Heart Attack Father Depression Sister No Known Problems Brother Diabetes Maternal Grandmother Hypertension Maternal Grandmother other ([place]'s Disease) Maternal Grandmother Cancer Maternal Grandfather Lung Hypertension Maternal Grandfather Alcohol/Drug Paternal Grandmother Alcohol/Drug Paternal Grandfather other (acid reflux) Son Social History Tobacco Use Smoking status: Former Current packs/day: 0.00 Types: Cigarettes Start date: 07/05/2018 Quit date: 01/03/2019 Years since quittin.8 Smokeless tobacco: Former Types: Chew Quit date: 01/31/2019 Vaping Use Vaping status: current everyday user Substance Use Topics Alcohol use: Never Drug use: Not Currently Types: Marijuana Review of Systems Constitutional: Negative for fever. Respiratory: Negative for cough. Cardiovascular: Negative for chest pain. Gastrointestinal: Negative for abdominal pain, constipation, diarrhea, nausea and vomiting. Genitourinary: Negative for dysuria and frequency. Musculoskeletal: Positive for back pain and myalgias. Skin: Negative for rash. Neurological: Negative for numbness. Objective BP 102/70 Pulse 97 Temp 36.3 ?C (97.3 ?F) (Tympanic) Resp 18 Wt 47.9 kg (105 lb 9.6 oz) LMP 10/01/2024 (Exact Date) SpO2 99% Physical Exam Constitutional: General: She is not in acute distress. Appearance: Normal appearance. She is not diaphoretic. Cardiovascular: Pulses: Dorsalis pedis pulses are 2+ on the right side and 2+ on the left side. Posterior tibial pulses are 2+ on the right side and 2+ on the left side. Abdominal: General: Bowel sounds are normal. Palpations: Abdomen is soft. Tenderness: There is no abdominal tenderness. Musculoskeletal: Lumbar back: Spasms present. Decreased range of motion. Comments: Lumbar paraspinal muscles tender with palpation Neurological: Mental Status: She is alert and oriented to person, place, and time. Gait: Gait normal. Deep Tendon Reflexes: Reflex Scores: Patellar reflexes are 2+ on the right side and 2+ on the left side. {ASSESSMENT/PLAN: 1. Acute midline low back pain without sciatica - ICD9: 724.2, ICD10: M54.50 Home pt advised F/u with pcp if s/s persist/worsen/change Urgent f/u for red flag symptoms Allen Wilson APRN.WELDING MACHINE OPERATOR FRICTION History and Record Review External record(s) reviewed: prior outpatient record. Disposition The patient was discharged. OTC Medications were advised: Tylenol Procedures Allergies As of Date: 11/08/2024 Noted Allergy Reaction ADHESIVE TAPE (ROSINS) 02/04/2014 2 - Rash LATEX 2 - Rash Date Reviewed: 11/08/2024 Reviewed by: Rufina Barron LPN - Fully Assessed Reason for Visit: lower back and right hip pain [Other] Cmt: X 3 days-heavy lifting Primary Visit Diagnosis:Acute midline low back pain without sciatica [M54.50] Prescriptions as of 11/08/2024 - Sycwzlmv-Ee-Rxi-Fe-FA tab Take 1 tablet by mouth once daily. - ondansetron orally disintegrating (ZOFRAN ODT) 4 mg disintegrating tablet Take (more content not included)... Normal [facility] B-HCG SerPl-[place]Cn[place] 5 [place] [address].0 m[IU]/mL High <5.0 [facility] Comment on above: Order Comment: Speci men Type: BLOOD SPECIMENOrdering Facility: [facility] Address: [address] [place] [address] Result Comment: DESTIN MUNGUIAATIVE HCG NORMAL RANGES Weeks of Gestation (Weeks Since LMP) 3 Weeks (5.8-71.2 mIU/mL) 4 Weeks (9.5-750 mIU/mL) 5 Weeks (217-7138 mIU/mL) 6 Weeks (158-69335 mIU/mL) 7 Weeks (3697-387530 mIU/mL) 8 Weeks (54755-707903 mIU/mL) 9 Weeks (65271-450287 mIU/mL) 10 Weeks (98362-446543 mIU/mL) 12 Weeks (61077-054898 mIU/mL) Referenced to 4th IS of [facility] Performed By: #### 2 1198-7 ####[facility] LABCLIA [id number] [place] [address] [place] B-HCG SerPl-aCncon 5 HCG.beta subunit Qn 612.8 m[IU]/mL High <5.0 [facility] Comment on above: Order Comment: Speci men Type: BLOOD SPECIMENOrdering Facility: [facility] Address: [address] [place] [address] Result Comment: DESTIN TITATIVE HCG NORMAL RANGES Weeks of Gestation (Weeks Since LMP) 3 Weeks (5.8-71.2 mIU/mL) 4 Weeks (9.5-750 mIU/mL) 5 Weeks (217-7138 mIU/mL) 6 Weeks (158-54475 mIU/mL) 7 Weeks (3697-924282 mIU/mL) 8 Weeks (67460-909774 mIU/mL) 9 Weeks (23017-077987 mIU/mL) 10 Weeks (92051-702187 mIU/mL) 12 Weeks (49411-923060 mIU/mL) Referenced to 4th IS of [facility] Performed By: #### 2 1198-7 ####[facility] [id number] [address] [place] B-HCG SerPl-aCncon 5 HCG.beta subunit Qn 264.9 m[IU]/mL High <5.0 [facility] Comment on above: Order Comment: Speci men Type: BLOOD SPECIMENOrdering Facility: [facility] Address: [address] [place] [address] Result Comment: DESTIN TITATIVE HCG NORMAL RANGES Weeks of Gestation (Weeks Since LMP) 3 Weeks (5.8-71.2 mIU/mL) 4 Weeks (9.5-750 mIU/mL) 5 Weeks (217-7138 mIU/mL) 6 Weeks (158-25637 mIU/mL) 7 Weeks (3697-654234 mIU/mL) 8 Weeks (30504-009503 mIU/mL) 9 Weeks (46494-268603 mIU/mL) 10 Weeks (20907-972466 mIU/mL) 12 Weeks (13244-218380 mIU/mL) Referenced to 4th IS of [facility] Performed By: #### 2 1198-7 ####[facility] LABIA [id number] [place] [id number] [place] B-HCG SerPl-aCncon 5 HCG.beta subunit Qn 89.4 m[IU]/mL High <5.0 [facility] Comment on above: Order Comment: Speci men Type: BLOOD SPECIMENOrdering Facility: [facility] Address: [address] [place] [address] Result Comment: DESTIN TITATIVE HCG NORMAL RANGES Weeks of Gestation (Weeks Since LMP) 3 Weeks (5.8-71.2 mIU/mL) 4 Weeks (9.5-750 mIU/mL) 5 Weeks (217-7138 mIU/mL) 6 Weeks (158-81172 mIU/mL) 7 Weeks (3697-775181 mIU/mL) 8 Weeks (57908-843628 mIU/mL) 9 Weeks (68943-607019 mIU/mL) 10 Weeks (02995-284340 mIU/mL) 12 Weeks (38283-849136 mIU/mL) Referenced to 4th IS of [facility] Performed By: #### 2 1198-7 ####[facility] LABCLIA [id number] [place] [address] [place] UA DIP,URINE HCG (POC)on Beta HCG ( test) Ql (U) Positive Abnormal Negative [facility] Comment on above: Location:[facility] [address], [place], [address] Interpretation and review of laboratory results Abnormal [facility] Business Dean (POCT) Internal QC [facility] Location:[facility] [address], [place], [place], [address] [place] [address] POINT OF CARE [facility] CNOVon 10-14-2024 CNOV Office Visit (UCWSTR ) BARBARA SCHWAB ([id number]) 4 F Date Time Provider Department 10/14/24 8:45 AM NILDA CASTELLANOSWSTR During your visit today, we recorded the following information about you: Temperature Pulse Respiration Blood pressure 97.2 degrees 102/minute 18/minute 124/87 Weight Last Period 46 kg 10/11/24 Nilda Castellanos APRN.CNP 10/14/2024 9:21 AM Signed [facility] Subjective Barbara Schwab is a 24 year old adult. Patient presents with: Diarrhea: Vomiting, stomach pain x 4 days 24 year old adult with PMH GERD, IBS, depression, and anxiety presents for illness Acute onset 4 days ago Lower abdominal pain [place] like punched in stomach" + emesis x 6 +diarrhea , multiple times +fatigue +nasal congestion Denies fever or chills Denies accompanying URI sx Denies vaginal bleeding Denies vaginal discharge Denies sx Has used heating pad States symptoms are the same , denying that they have worsened or improved LMP-09/10 She states she needs a work note The history is provided by the patient. No english language learner teacher was used. Vomiting This is a new problem. The current episode started more than 2 days ago. Episode frequency: x 6 over the past 4 days. The problem has not changed since onset.The emesis has an appearance of bilious material. There has been no fever. Associated symptoms include abdominal pain and diarrhea. Pertinent negatives include no arthralgias, no chills, no cough, no fever, no headaches, no myalgias, no sweats and no URI. Risk factors include ill contacts. PAST MEDICAL HISTORY Diagnosis Date Anemia during in second trimester (HCC) 05/18/2019 Depression GERD (gastroesophageal reflux disease) H/O seasonal allergies Herpes simplex virus (HSV) infection IBS (irritable bowel syndrome) PAST SURGICAL HISTORY Procedure Laterality Date NONE SALPINGECTOMY Right 04/01/2024 laparoscopic, [facility] for ectopic ALLERGIES Adhesive Tape (Rosins) and Latex MEDICATIONS busPIRone (BUSPAR) 10 mg tablet Take 10 mg by mouth three times a day. escitalopram oxalate (LEXAPRO) 10 mg tablet Take 10 mg by mouth once daily. PNV Comb.Cd33-Boiw,Carbon yl-FA 29 mg iron- 1 mg tab Take 1 tablet by mouth once daily. valACYclovir (VALTREX) 1 gram Take 1 tablet by mouth once daily. (Patient taking differently: Take 1,000 mg by mouth as needed (breakouts).) ondansetron orally disintegrating (ZOFRAN ODT) 4 mg disintegrating tablet Take 1 tablet by mouth every 6 hours as needed for nausea/vomiting. ondansetron orally disintegrating (ZOFRAN ODT) 4 mg disintegrating tablet Take 1 tablet by mouth every 6 hours as needed for nausea/vomiting. (Patient not taking: Reported on 10/14/2024) ondansetron orally disintegrating (ZOFRAN ODT) 4 mg disintegrating tablet Take 1 tablet by mouth every 6 hours as needed for nausea/vomiting. (Patient not taking: Reported on 09/20/2023) omeprazole (PRILOSEC) 20 mg capsule Take 20 mg by mouth once daily. (Patient not taking: Reported on 08/18/2024) ondansetron orally disintegrating (ZOFRAN ODT) 4 mg disintegrating tablet Take 1 tablet by mouth every 6 hours as needed for nausea/vomiting. (Patient not taking: Reported on 07/09/2023) vit 54-ayph-fudtn-dha (PRENATE MINI, FERR ASP GLYCIN,) 18-1-350 mg cap Take 1 Dose by mouth once daily. (Patient not taking: Reported on 09/20/2023) FAMILY HISTORY Problem Relation Age of Onset Hypertension Mother other (insomnia) Mother other (fibromyalgia) Mother other (IBS) Mother Heart Attack Father Depression Sister No Known Problems Brother Diabetes Maternal Grandmother Hypertension Maternal Grandmother other ([place]'s Disease) Maternal Grandmother Cancer Maternal Grandfather Lung Hypertension Maternal Grandfather Alcohol/Drug Paternal Grandmother Alcohol/Drug Paternal Grandfather other (acid reflux) Son Social History Tobacco Use Smoking status: Former Current packs/day: 0.00 Types: Cigarettes Start date: 07/05/2018 Quit date: 01/03/2019 Years since quittin.7 Smokeless tobacco: Former Types: Chew Quit date: 01/31/2019 Vaping Use Vaping status: current everyday user Substance Use Topics Alcohol use: Never Drug use: Not Currently Types: Marijuana Review of Systems Constitutional: Negative for chills and fever. Respiratory: Negative for apnea, cough, choking and chest tightness. Cardiovascular: Negative for chest pain, palpitations and leg swelling. Gastrointestinal: Positive for abdominal pain, diarrhea and vomiting. Musculoskeletal: Negative for arthralgias and myalgias. Skin: Negative for color change, pallor, rash and wound. Allergic/Immunologic: Negative for environmental allergies, food allergies and immunocompromised state. Neurological: Negative for headaches. Hematological: Negative for adenop (more content not included)... Normal [facility] CNOVon 08-24-2024 CNOV Office Visit (UCWSTR ) BARBARA SCHWAB ([id number]) 4 F Date Time Provider Department 08/24/24 11:00 AM NILDA CASTELLANOS [facility] During your visit today, we recorded the following information about you: Temperature Pulse Respiration Blood pressure 97.3 degrees 118/minute 20/minute 112/70 Weight 44.8 kg Nilda Castellanos APRN.WELDING MACHINE OPERATOR FRICTION 08/24/2024 11:39 AM Signed This note was created using NoteWriter. Subjective Barbara Schwab is a 24 year old adult. 24 year old female with no significant PMH presents for illness. Acute onset 5 days ago +nausea +sore throat +diarrhea +body aches +headache +chills Denies CP Denies dyspnea Denies emesis Denies hemoptysis Used Tylenol +vapes, tobacco The history is provided by the patient. No english language learner teacher was used. SHARLENE Flower complains of cough. There is no chest tightness, difficulty breathing, frequent throat clearing, hemoptysis, hoarse voice, shortness of breath, sputum production or wheezing. This is a new problem. The current episode started in the past 7 days. The problem occurs constantly. The problem has been gradually worsening. Associated symptoms include a fever, headaches, malaise/fatigue, myalgias, nasal congestion, postnasal drip, rhinorrhea, sneezing and a sore throat. Pertinent negatives include no appetite change, chest pain, dyspnea on exertion, ear congestion, ear pain, heartburn, orthopnea, PND, sweats, trouble swallowing or weight loss. Ching's symptoms are aggravated by nothing. Ching's symptoms are alleviated by nothing. Risk factors for lung disease include smoking/tobacco exposure. There is no history of asthma, bronchiectasis, bronchitis, COPD, emphysema or pneumonia. PAST MEDICAL HISTORY Diagnosis Date Anemia during in second trimester 05/18/2019 Depression GERD (gastroesophageal reflux disease) H/O seasonal allergies Herpes simplex virus (HSV) infection IBS (irritable bowel syndrome) PAST SURGICAL HISTORY Procedure Laterality Date NONE SALPINGECTOMY Right 04/01/2024 laparoscopic, [facility] for ectopic ALLERGIES Adhesive Tape (Rosins) and Latex MEDICATIONS busPIRone (BUSPAR) 10 mg tablet Take 10 mg by mouth three times a day. valACYclovir (VALTREX) 1 gram Take 1 tablet by mouth once daily. ondansetron orally disintegrating (ZOFRAN ODT) 4 mg disintegrating tablet Take 1 tablet by mouth every 6 hours as needed for nausea/vomiting. escitalopram oxalate (LEXAPRO) 10 mg tablet Take 10 mg by mouth once daily. PNV Comb.Py22-Urau,Carbon yl-FA 29 mg iron- 1 mg tab Take 1 tablet by mouth once daily. (Patient not taking: Reported on 08/18/2024) ondansetron orally disintegrating (ZOFRAN ODT) 4 mg disintegrating tablet Take 1 tablet by mouth every 6 hours as needed for nausea/vomiting. (Patient not taking: Reported on 09/20/2023) omeprazole (PRILOSEC) 20 mg capsule Take 20 mg by mouth once daily. (Patient not taking: Reported on 08/18/2024) ondansetron orally disintegrating (ZOFRAN ODT) 4 mg disintegrating tablet Take 1 tablet by mouth every 6 hours as needed for nausea/vomiting. (Patient not taking: Reported on 07/09/2023) vit 21-svsc-rgszt-dha (PRENATE MINI, FERR ASP GLYCIN,) 18-1-350 mg cap Take 1 Dose by mouth once daily. (Patient not taking: Reported on 09/20/2023) FAMILY HISTORY Problem Relation Age of Onset Hypertension Mother other (insomnia) Mother other (fibromyalgia) Mother other (IBS) Mother Heart Attack Father Depression Sister No Known Problems Brother Diabetes Maternal Grandmother Hypertension Maternal Grandmother other ([place]'s Disease) Maternal Grandmother Cancer Maternal Grandfather Lung Hypertension Maternal Grandfather Alcohol/Drug Paternal Grandmother Alcohol/Drug Paternal Grandfather other (acid reflux) Son Social History Tobacco Use Smoking status: Former Current packs/day: 0.00 Types: Cigarettes Start date: 07/05/2018 Quit date: 01/03/2019 Years since quittin.6 Smokeless tobacco: Former Types: Chew Quit date: 01/31/2019 Vaping Use Vaping status: current everyday user Substance Use Topics Alcohol use: Never Drug use: Not Currently Types: Marijuana Review of Systems Constitutional: Positive for fever and malaise/fatigue. Negative for appetite change and weight loss. HENT: Positive for congestion, postnasal drip, rhinorrhea, sneezing and sore throat. Negative for ear pain, hoarse voice and trouble swallowing. Eyes: Negative for pain, discharge, redness and itching. Respiratory: Positive for cough. Negative for apnea, hemoptysis, sputum production, shortness of breath and wheezing. Cardiovascular: Negative for chest pain, dyspnea on exertion and PND. Gastrointestinal: Positive for diarrhea and nausea. Negative for heartburn and vomiting. Musculoskeletal: Positive for myalgias. Negative for arth (more content not included)... Normal [facility] STREP A MOLECULAR (POC)on Procedural Control Valid [facility] Strep A (POCT) Negative Negative [facility] UA DIP,URINE HCG (POC)on Beta HCG ( test) Ql (U) Negative Negative [facility] Comment on above: Location:[facility], [address] [address] Business Dean (POCT) Internal QC [facility] Location:[facility], [address] [facility] [id number] [place] [address] POINT OF CARE [facility] 12 Lead EKGon 05-06-2024 12 Lead EKG [facility] Cardiovascular Services [address] [place] [address] 12 Lead EKG 05/06/24 0405 MR#: [id number] Acct: [id number] Name: BARBARA SCHWAB Rep #: [id number] : 2000 23 From: Jamie Paul MD Attending Dr: Status: DEP ER Ordering Dr: Scott Daniel DO Date: 05/06/24 Location: ED Sex: F C Admitted: Test Reason : SYNCOPE Blood Pressure : */* mmHG Vent. Rate : 82 BPM Atrial Rate : 82 BPM P-R Int : 104 ms QRS Dur : 90 ms QT Int : 410 ms P-R-T Axes : 58 67 62 degrees QTcB Int : 479 ms Sinus rhythm with sinus arrhythmia with short VT Otherwise normal ECG Confirmed by GILMER GODINEZ, JAMIE ([id number]), supervising editor news reel APOLONIA STEINER ([id number]) on 05/07/2024 8:19:23 AM Referred By: MIKI Confirmed By: JAMIE PAUL MD 05/07/24818 Date Jamie Paul MD CC: Dr. Melissa Cabezas MD; Scott Daniel DO Signed Normal [facility] Basic Metabolic Profile (BMP )on 05-06-2024 BUN/CRE 10.6 RATIO Normal 10-20 [facility] Comment on above: Performed By: #### L 500.2500, L501.5200, L100.0100 #### [facility] [address] [place], [address] CA,Total 9.3 mg/dL Normal 8.5-10.1 [facility] Comment on above: Performed By: #### L 500.2500, L501.5200, L100.0100 #### [facility] [address] [place], [address] Chloride [Moles/Vol] 104 mmol/L Normal 98-107 [facility] Comment on above: Performed By: #### L 500.2500, L501.5200, L100.0100 #### [facility] [address] [place], [address] CO2 [Moles/Vol] 24.0 mmol/L Normal 21.0-32.0 [facility] Comment on above: Performed By: #### L 500.2500, L501.5200, L100.0100 #### [facility] [address] [place], [address] Creatinine [Mass/Vol] 0.76 mg/dL Normal 0.55-1.[address] [facility] Comment on above: Result Comment: The validity of the calculated GFR GFRAA in patients over 70 years has not been determined. Clinical correlation is essential. Performed By: #### L 500.2500, L501.5200, L100.0100 #### [facility] [address] [place], [address] ECRCL 79.99 ml/min Normal [facility] Comment on above: Performed By: #### L 500.2500, L501.5200, L100.0100 #### [facility] [address] [place], [address] EST GFR - AA 123 mL/min Normal >60 [facility] Comment on above: Result Comment: Afri can Macanese GFR Calc Performed By: #### L 500.2500, L501.5200, L100.0100 #### [facility] [address] [place], [address] GAP 8 Normal 5-15 [facility] Comment on above: Performed By: #### L 500.2500, L501.5200, L100.0100 #### [facility] [address] [place], [address] GFR/1.73 sq M.predicted among non-blacks MDRD (S/P/Bld) [Vol rate/Area] 102 mL/min/{1.73_m2} Normal >60 [facility] Comment on above: Result Comment: Non- GFR Calc Performed By: #### L 500.2500, L501.5200, L100.0100 #### [facility] [address] [place], [address] Glucose [Mass/Vol] 102 mg/dL Normal 74-106 [facility] Comment on above: Result Comment: Fast ing Glucose result from 100 to 125 mg/dL suggests IMPAIRED HOMEOSTASIS per A.D.A. criteria. Performed By: #### L 500.2500, L501.5200, L100.0100 #### [facility] [address] [place], [address] Potassium [Moles/Vol] 3.2 mmol/L Low 3.5-5.[address] [facility] Comment on above: Performed By: #### L 500.2500, L501.5200, L100.0100 #### [facility] [address] [place], [address] Sodium [Moles/Vol] 136 mmol/L Normal 136-145 [facility] Comment on above: Performed By: #### L 500.2500, L501.5200, L100.0100 #### [facility] [address] [place], [address] Urea nitrogen [Mass/Vol] 8 mg/dL Normal 7-18 [facility] Comment on above: Performed By: #### L 500.2500, L501.5200, L100.0100 #### [facility] [address] [place], [address] Brain/Head without Contrasto n 05-06-2024 Brain/Head without Contrast [facility] Imaging Services [address] [place] [address] Brain/Head without Contrast MR#: [id number] Acct: [id number] Name: BARBARA SCHWAB Rep #: [id number] : 2000 F 23 From: Yosi Luz MD PCP: Dr. Melissa Cabezas MD Status: REG ER Study: Brain/Head without Contrast Date of Exam: 04/08 07/30 Exam# [id number] Ordering Dr: Scott Daniel DO [id number] INDICATION: syncope EXAMINATION: CT BRAIN - CT Head or Brain W/O Contrast Injection TECHNIQUE: Multiple axial images were obtained of the head with sagittal and coronal reconstructed images. Individualized dose optimization techniques were used for this CT. IV contrast dosage and agent: None. COMPARISON: None. __ FINDINGS: BRAIN PARENCHYMA: No evidence of an acute infarct or intracranial hemorrhage. No evidence of a mass. CSF SPACES: The ventricles, sulci and subarachnoid cisterns are appropriate for age. CALVARIUM, SKULL BASE, PARANASAL SINUSES AND MASTOID AIR CELLS: No fracture. Mastoid air cells are clear. Visualized paranasal sinuses are unremarkable. ORBITS: The globes, extraocular muscles, optic nerves and retrobulbar fat are unremarkable. __ CT/Brain/Head without Contrast IMPRESSION: Normal noncontrast CT of the head. Electronically Signed: Yosi Luz DO at 4:45 EDT , CC: Dr. Melissa Cabezas MD; Scott Daniel DO Residential Program Manager: Signed Normal [facility] CBC W/Diff, Automatedon 10-3 Absolute Lymph 0.99 X10 3/uL Normal 0.83-4.51 [facility] Comment on above: Performed By: #### L 500.2500, L501.5200, L100.0100 #### [facility] [address] [place], [place], [address] Absolute Neut 10.7 X10 3/uL High 2.0-7.7 [facility] Comment on above: Performed By: #### L 500.2500, L501.5200, L100.0100 #### [facility] [address] [place], [address] Basophils/100 WBC (Bld) 0.2 % Normal 0-1 [facility] Comment on above: Performed By: #### L 500.2500, L501.5200, L100.0100 #### [facility] [address] [place], [address] Eosinophils/100 WBC (Bld) 0.0 % Normal 0-5 [facility] Comment on above: Performed By: #### L 500.2500, L501.5200, L100.0100 #### [facility] [address] [place], [address] Erythrocyte distribution width (RBC) [Ratio] 12.4 % Normal 11.6-14.6 [facility] Comment on above: Performed By: #### L 500.2500, L501.5200, L100.0100 #### [facility] [address] [place], [address] Hematocrit (Bld) [Volume fraction] 41.7 % Normal 37-47 [facility] Comment on above: Performed By: #### L 500.2500, L501.5200, L100.0100 #### [facility] [address] [place], [address] Hemoglobin (Bld) [Mass/Vol] 14.3 g/dL Normal 12.0-15.0 [facility] Comment on above: Performed By: #### L 500.2500, L501.5200, L100.0100 #### [facility] [address] [place], [address] IG% 0.500 Normal 0.0-0.9 [facility] Comment on above: Result Comment: IG% - Immature Granulocytes (promyelocytes, myelocytes and metamyelocytes) > 1% indicates that a LEFT SHIFT is Present. Performed By: #### L 500.2500, L501.5200, L100.0100 #### [facility] [address] [place], [address] Lymphocytes/100 WBC (Bld) 8.0 % Low 19-41 [facility] Comment on above: Performed By: #### L 500.2500, L501.5200, L100.0100 #### [facility] [address] [place], [address] MCH (RBC) [Entitic mass] 30.6 pg Normal 27.0-32.0 [facility] Comment on above: Performed By: #### L 500.2500, L501.5200, L100.0100 #### [facility] [address] [place], [address] MCHC (RBC) [Mass/Vol] 34.3 g/dL Normal 32-[address] [facility] Comment on above: Performed By: #### L 500.2500, L501.5200, L100.0100 #### [facility] [address] [place], [address] MCV (RBC) [Entitic vol] 89.1 fL Normal 81-99 [facility] Comment on above: Performed By: #### L 500.2500, L501.5200, L100.0100 #### [facility] [address] [place], [address] Monocytes/100 WBC (Bld) 4.8 % Normal 0-10 [facility] Comment on above: Performed By: #### L 500.2500, L501.5200, L100.0100 #### [facility] [address] [place], [address] Neutrophils/100 WBC (Bld) 86.5 % High 47-70 [facility] Comment on above: Performed By: #### L 500.2500, L501.5200, L100.0100 #### [facility] [address] [place], [address] Nucleated RBC (Bld) [#/Vol] 0 10*3/uL Normal 0-5 [facility] Comment on above: Performed By: #### L 500.2500, L501.5200, L100.0100 #### [facility] [address] [place], [address] Platelet mean volume (Bld) [Entitic vol] 10.7 fL Normal 6.2-12.0 [facility] Comment on above: Performed By: #### L 500.2500, L501.5200, L100.0100 #### [facility] [address] [place], [address] Platelets (Bld) [#/Vol] 324 10*3/uL Normal 150-450 [facility] Comment on above: Performed By: #### L 500.2500, L501.5200, L100.0100 #### [facility] [address] [place], [address] RBC (Bld) [#/Vol] 4.68 10*6/uL Normal 4.2-5.4 [facility] Comment on above: Performed By: #### L 500.2500, L501.5200, L100.0100 #### [facility] [address] [place], [address] RDW SD 40.2 fl Normal 35.1-43.9 [facility] Comment on above: Performed By: #### L 500.2500, L501.5200, L100.0100 #### [facility] [address] [place], [address] WBC (Bld) [#/Vol] 12.4 10*3/uL High 4.4-11.0 [facility] Comment on above: Performed By: #### L 500.2500, L501.5200, L100.0100 #### [facility] [address] [place], [address] Emergency Department Summary on 05-06-2024 Emergency Department Summary [facility] Medical Records Department [address] [place] [address] Emergency Department Summary 05/06/24 MR#: [id number] Acct: [id number] Name: BARBARA SCHWAB Rep #: [id number] : 2000 23 From: Scott Daniel DO PCP: Dr. Melissa Cabezas MD Status:REG ER Location: ED HPI History of Present Illness Chief Complaint: Syncope Informant: patient and spouse/S.O. Narrative Narrative: Patient is a 23-year-old female with past medical history of GERD IBS and depression. She recently underwent a D C approximately 5 weeks ago. She states she has been doing well from that and there is been no persistent or recurrent vaginal bleeding. She states that this evening she noted that if she got up and tried to walk across her house from room to the other she began to feel lightheaded and reported tunnel vision as well as change in hearing and then bouts of passing out. She states this has happened multiple times since roughly 8 PM. She states she has had some loose stool/diarrhea but denies bouts of nausea or vomiting. She states that there is no family history of a cardiac dysrhythmia and states she does not notice that her heart is racing or skipping beats prior to the event. She does state that she struck her head with a few bouts of the syncopal event but denies bleeding disorder or blood thinner use. At this time as the symptoms have been recurrent she presents for evaluation [facility] Medical History IBS (irritable bowel syndrome) Depression GERD (gastroesophageal reflux disease) Home Medications ???Medication ???Instructions ???Recorded ???Last Taken ???Type Prilosec 1 tab PO PRN ACID REFLUX 06/26/19 05/01/21 06:30 History valacyclovir 1 gram tablet 1,000 mg PO DAILY PRN hsv 11/11/20 05/01/21 06:30 History (Valtrex) bstwltbf-jai-Oi-FA 1 mg 1 tab PO DAILY 03/07/21 04/01/24 History tablet metronidazole 500 mg tablet 500 mg PO BID 04/01/24 03/31/24 History Allergy/AdvReac Type Severity Reaction Status Date / Time Latex, Natural Rubber AdvReac Rash Verified 05/06/24 03:43 Social History Smoking Status: Current every day smoker tobacco type: e-cigarettes ROS ROS ED Constitutional Constitutional ED: Denies chills or fever(s) Eyes Eyes: Denies diplopia ENT ENT ED: Denies rhinorrhea or sore throat Cardiovascular Cardiovascular: Reports other Details: Positive syncope ; Denies chest pain, palpitations or racing heartbeat Respiratory/Chest Respiratory/Chest: Denies cough or dyspnea Gastrointestinal Gastrointestinal: Reports diarrhea; Denies abdominal pain, nausea or vomiting Genitourinary Genitourinary ED: Denies dysuria or hematuria Musculoskeletal Musculoskeletal: Denies back pain Integumentary Denies Abrasions Neurologic Neurologic: Denies headache(s) or weakness Hematologic/Lymphatic Hematologic/Lymphatic : Denies easy bleeding or easy bruising EXAM Physical Exam Const Vital Signs: 05/06/24 03:38 05/06/24 03:43 05/06/24 03:58 Temperature 98.2 F Temperature Source Oral Pulse Rate 70 Pulse Rate [Lying] 91 Pulse Rate [Sitting (for 1 minute prior to obtaining)] 140 H Pulse Rate [Standing (for 1 minute prior to obtaining)] 166 H Respiratory Rate 18 Respiratory Effort Normal Respiratory Pattern Normal Blood Pressure 105/71 Blood Pressure [Lying] 118/93 H Blood Pressure [Sitting (for 1 minute prior to obtaining)] 99/77 Blood Pressure Mean 82 Blood Pressure Mean [Lying] 101 Blood Pressure Mean [Sitting (for 1 minute prior to obtaining)] 84 Pulse Ox 100 Oxygen Delivery Method Room Air 05/06/24 05:09 Temperature Temperature Source Pulse Rate 142 H Pulse Rate [Lying] Pulse Rate [Sitting (for 1 minute prior to obtaining)] Pulse Rate [Standing (for 1 minute prior to obtaining)] Respiratory Rate 18 Respiratory Effort Respiratory Pattern Blood Pressure 99/77 Blood Pressure [Lying] Blood Pressure [Sitting (for 1 minute prior to obtaining)] Blood Pressure Mean 84 Blood Pressure Mean [Lying] Blood Pressure Mean [Sitting (for 1 minute prior to obtaining)] Pulse Ox 100 Oxygen Delivery Method Room Air Positive well nourished and well developed General Appearance ED: well developed; Negative for pallor HEENT Reports dry mucous membranes HEENT Narrative: Mucous membranes are mildly dry and tacky No tongue or lip swelling no oral lesions no airway edema or compromise No signs of infection noted in the posterior pharynx Mouth ED: Yes dry mucous membranes Mouth: dry mucous membranes Eyes PERRL and EOMs intact bilaterally General Eye ED: Negative for pale conjunctiva or (more content not included)... Normal [facility] Magnesiumon 05-06-2024 Magnesium [Mass/Vol] 2.1 mg/dL Normal 1.6-2.6 [facility] Comment on above: Performed By: #### L 500.2500, L501.5200, L100.0100 #### [facility] [address] [place], [address] [id number] 04-01-2024 ABO and Rh group Nom (Bld) Blood group O Rh(D) positive Normal [facility] Comment on above: Performed By: #### L 500.4050, L700.8000, B882-1, L100.0100 ####[facility] [address] [place], [address] CBC W/Diff, Automatedon 03-08 Absolute Lymph 1.59 X10 3/uL Normal 0.83-4.51 [facility] Comment on above: Performed By: #### L 500.4050, L700.8000, B882-1, L100.0100 ####[facility] [address] [place], [address] Absolute Neut 6.6 X10 3/uL Normal 2.0-7.7 [facility] Comment on above: Performed By: #### L 500.4050, L700.8000, B882-1, L100.0100 ####[facility] [address] [place], [address] Basophils/100 WBC (Bld) 0.3 % Normal 0-1 [facility] Comment on above: Performed By: #### L 500.4050, L700.8000, B882-1, L100.0100 ####[facility] [address] [place], [address] Eosinophils/100 WBC (Bld) 0.3 % Normal 0-5 [facility] Comment on above: Performed By: #### L 500.4050, L700.8000, B882-1, L100.0100 ####[facility] [address] [place], [address] Erythrocyte distribution width (RBC) [Ratio] 12.6 % Normal 11.6-14.6 [facility] Comment on above: Performed By: #### L 500.4050, L700.8000, B882-1, L100.0100 ####[facility] [address] [place], [address] Hematocrit (Bld) [Volume fraction] 38.2 % Normal 37-47 [facility] Comment on above: Performed By: #### L 500.4050, L700.8000, B882-1, L100.0100 ####[facility] [address] [place], [address] Hemoglobin (Bld) [Mass/Vol] 12.6 g/dL Normal 12.0-15.0 [facility] Comment on above: Performed By: #### L 500.4050, L700.8000, B882-1, L100.0100 ####[facility] [address] [place], [address] IG% 0.700 Normal 0.0-0.9 [facility] Comment on above: Result Comment: IG% - Immature Granulocytes (promyelocytes, myelocytes and metamyelocytes) > 1% indicates that a LEFT SHIFT is Present. Performed By: #### L 500.4050, L700.8000, B882-1, L100.0100 ####[facility] [address] [place], [address] Lymphocytes/100 WBC (Bld) 18.2 % Low 19-41 [facility] Comment on above: Performed By: #### L 500.4050, L700.8000, B882-1, L100.0100 ####[facility] [address] [place], [address] MCH (RBC) [Entitic mass] 30.7 pg Normal 27.0-32.0 [facility] Comment on above: Performed By: #### L 500.4050, L700.8000, B882-1, L100.0100 ####[facility] [address] [place], [address] MCHC (RBC) [Mass/Vol] 33.0 g/dL Normal 32-[address] [facility] Comment on above: Performed By: #### L 500.4050, L700.8000, B882-1, L100.0100 ####[facility] [address] [place], [address] MCV (RBC) [Entitic vol] 92.9 fL Normal 81-99 [facility] Comment on above: Performed By: #### L 500.4050, L700.8000, B882-1, L100.0100 ####[facility] [address] [place], [address] Monocytes/100 WBC (Bld) 5.0 % Normal 0-10 [facility] Comment on above: Performed By: #### L 500.4050, L700.8000, B882-1, L100.0100 ####[facility] [address] [place], [address] Neutrophils/100 WBC (Bld) 75.5 % High 47-70 [facility] Comment on above: Performed By: #### L 500.4050, L700.8000, B882-1, L100.0100 ####[facility] [address] [place], [address] Nucleated RBC (Bld) [#/Vol] 0 10*3/uL Normal 0-5 [facility] Comment on above: Performed By: #### L 500.4050, L700.8000, B882-1, L100.0100 ####[facility] [address] [place], [address] Platelet mean volume (Bld) [Entitic vol] 10.8 fL Normal 6.2-12.0 [facility] Comment on above: Performed By: #### L 500.4050, L700.8000, B882-1, L100.0100 ####[facility] [address] [place], [address] Platelets (Bld) [#/Vol] 252 10*3/uL Normal 150-450 [facility] Comment on above: Performed By: #### L 500.4050, L700.8000, B882-1, L100.0100 ####[facility] [address] [place], [address] RBC (Bld) [#/Vol] 4.11 10*6/uL Low 4.2-5.4 [facility] Comment on above: Performed By: #### L 500.4050, L700.8000, B882-1, L100.0100 ####[facility] [address] [place], [address] RDW SD 43.0 fl Normal 35.1-43.9 [facility] Comment on above: Performed By: #### L 500.4050, L700.8000, B882-1, L100.0100 ####[facility] [address] [place], [address] WBC (Bld) [#/Vol] 8.7 10*3/uL Normal 4.4-11.0 [facility] Comment on above: Performed By: #### L 500.4050, L700.8000, B882-1, L100.0100 ####[facility] [address] [place], [address] Comprehensive Metabolic Prof ilon 04-01-2024 Albumin [Mass/Vol] 4.0 g/dL Normal 3.2-5.0 [facility] Comment on above: Performed By: #### L 500.4050, L700.8000, B882-1, L100.0100 ####[facility] [address] [place], [address] Albumin/Globulin [Mass ratio] 1.3 {ratio} Normal 0.9-2.4 [facility] Comment on above: Performed By: #### L 500.4050, L700.8000, B882-1, L100.0100 ####[facility] [address] [place], [address] ALK P 48 U/L Normal 45-117 [facility] Comment on above: Performed By: #### L 500.4050, L700.8000, B882-1, L100.0100 ####[facility] [address] [place], [address] ALT [Catalytic activity/Vol] 11 U/L Low 13-56 [facility] Comment on above: Performed By: #### L 500.4050, L700.8000, B882-1, L100.0100 ####[facility] [address] [place], [address] AST [Catalytic activity/Vol] 4 U/L Low 15-37 [facility] Comment on above: Performed By: #### L 500.4050, L700.8000, B882-1, L100.0100 ####[facility] [address] [place], [address] Bilirubin [Mass/Vol] 0.70 mg/dL Normal 0.20-1.00 [facility] Comment on above: Result Comment: For patients on eltrombopag therapy, use of Dimension Reardan TBIL is not recommended. Performed By: #### L 500.4050, L700.8000, B882-1, L100.0100 ####[facility] [address] [place], [address] BUN/CRE 8.4 RATIO Low 10-20 [facility] Comment on above: Performed By: #### L 500.4050, L700.8000, B882-1, L100.0100 ####[facility] [address] [place], [address] CA,Total 9.4 mg/dL Normal 8.5-10.1 [facility] Comment on above: Performed By: #### L 500.4050, L700.8000, B882-1, L100.0100 ####[facility] [address] [place], [address] Chloride [Moles/Vol] 110 mmol/L High 98-107 [facility] Comment on above: Performed By: #### L 500.4050, L700.8000, B882-1, L100.0100 ####[facility] [address] [place], [address] CO2 [Moles/Vol] 28.0 mmol/L Normal 21.0-32.0 [facility] Comment on above: Performed By: #### L 500.4050, L700.8000, B882-1, L100.0100 ####[facility] [address] [place], [address] Creatinine [Mass/Vol] 0.72 mg/dL Normal 0.55-1.[address] [facility] Comment on above: Result Comment: The validity of the calculated GFR GFRAA in patients over 70 years has not been determined. Clinical correlation is essential. Performed By: #### L 500.4050, L700.8000, B882-1, L100.0100 ####[facility] [address] [place], [address] ECRCL 86.05 ml/min Normal [facility] Comment on above: Performed By: #### L 500.4050, L700.8000, B882-1, L100.0100 ####[facility] [address] [place], [address] EST GFR - AA 132 mL/min Normal >60 [facility] Comment on above: Result Comment: Afri can Macanese GFR Calc Performed By: #### L 500.4050, L700.8000, B882-1, L100.0100 ####[facility] [address] [place], [address] GAP 3 Low 5-15 [facility] Comment on above: Performed By: #### L 500.4050, L700.8000, B882-1, L100.0100 ####[facility] [address] [place], [address] GFR/1.73 sq M.predicted among non-blacks MDRD (S/P/Bld) [Vol rate/Area] 109 mL/min/{1.73_m2} Normal >60 [facility] Comment on above: Result Comment: Non- GFR Calc Performed By: #### L 500.4050, L700.8000, B882-1, L100.0100 ####[facility] [address] [place], [address] Globulin (S) [Mass/Vol] 3.0 g/dL Normal 2.2-4.2 [facility] Comment on above: Performed By: #### L 500.4050, L700.8000, B882-1, L100.0100 ####[facility] [address] [place], [address] Glucose [Mass/Vol] 108 mg/dL High 74-106 [facility] Comment on above: Result Comment: Fast ing Glucose result from 100 to 125 mg/dL suggests IMPAIRED HOMEOSTASIS per A.D.A. criteria. Performed By: #### L 500.4050, L700.8000, B882-1, L100.0100 ####[facility] [address] [place], [address] Potassium [Moles/Vol] 3.8 mmol/L Normal 3.5-5.[address] [facility] Comment on above: Performed By: #### L 500.4050, L700.8000, B882-1, L100.0100 ####[facility] [address] [place], [address] Sodium [Moles/Vol] 141 mmol/L Normal 136-145 [facility] Comment on above: Performed By: #### L 500.4050, L700.8000, B882-1, L100.0100 ####[facility] [address] [place], [address] T PROT 7.0 g/dL Normal 6.4-8.2 [facility] Comment on above: Performed By: #### L 500.4050, L700.8000, B882-1, L100.0100 ####[facility] [address] [place], [address] Urea nitrogen [Mass/Vol] 6 mg/dL Low 7-18 [facility] Comment on above: Performed By: #### L 500.4050, L700.8000, B882-1, L100.0100 ####[facility] [address] [place], [address] Emergency Department Summary on 04-01-2024 Emergency Department Summary [facility] Medical Records Department [address] [place] [address] Emergency Department Summary 04/01/24 MR#: [id number] Acct: [id number] Name: BARBARA SCHWAB Rep #: [id number] : 2000 23 From: Starr Suarez DO PCP: Dr. Melissa Cabezas MD Status:REG [facility] Location: [facility] HPI HPI - Female History of Present Illness Chief Complaint: Vag Bld, Preg Informant: patient Narrative Narrative: Patient is a 23-year-old female G4, P3 with last menstrual period of February 14. She is presenting from her OB office for further evaluation and concern of possible ectopic . Patient states she has had bleeding pretty much all month". She states is going through a pad every 4 hours. She did pass a clot yesterday though. Maybe had some tissue in it. She has been having worsening crampy discomfort over the past 1 to 2 days it is more on the right side. Radiates to her back. She has some pressure with urination but denies any dysuria. States he has a lot of pressure in her pelvis regardless. She had an in office ultrasound today where she states they could not see anything and recommended her to the ER for formal ultrasound intervention she did have an ectopic . She denies any nausea or vomiting. Notes that she did almost pass out when they were getting her blood work this morning but also attributes that to not having eaten today. She states she did not have a pelvic exam done earlier today. No other complaints or concerns reported at this time. [facility] Medical History IBS (irritable bowel syndrome) Depression GERD (gastroesophageal reflux disease) Home Medications ???Medication ???Instructions ???Recorded ???Last Taken ???Type Prilosec 1 tab PO DAILY Check with primary 06/26/19 05/01/21 06:30 History doctor valacyclovir 1 gram tablet 1,000 mg PO DAILY hsv 11/11/20 05/01/21 06:30 History (Valtrex) qzqlthbp-hag-Bg-FA 1 mg 1 tab PO DAILY 03/07/21 05/01/21 06:30 History tablet Phenergan 4 mg PO Q4H PRN PRN n/v 05/02/21 Unknown History progesterone micronized 05/02/21 05/01/21 06:30 History sulfamethoxazole 800 1 tab PO BID 5 days #10 tabs 01/01/23 Unknown Rx mg-trimethoprim 160 mg tablet (Bactrim DS) ondansetron 4 mg disintegrating 4 mg PO Q6H PRN PRN Nausea #10 tabs 10/09/23 Unknown Rx tablet naproxen 500 mg tablet (Naprosyn) 500 mg PO BID PRN pain #12 tabs 12/14/23 Unknown Rx metronidazole 500 mg tablet 500 mg PO BID 04/01/24 Unknown History Allergy/AdvReac Type Severity Reaction Status Date / Time Latex, Natural Rubber AdvReac Rash Verified 04/01/24 12:59 Social History Smoking Status: Current some day smoker tobacco type: cigarettes ROS ROS ED Constitutional Constitutional ED: Denies chills or fever(s) Cardiovascular Cardiovascular: Denies chest pain Respiratory/Chest Respiratory/Chest: Denies cough Gastrointestinal Gastrointestinal: Reports abdominal pain; Denies nausea or vomiting Genitourinary Genitourinary ED: Reports other Details: Vaginal bleeding, pelvic pressure ; Denies dysuria or urinary frequency Musculoskeletal Musculoskeletal: Denies arthralgias or myalgias Integumentary Denies rash Neurologic Neurologic: Denies headache(s) Psychiatric Psychiatric: Denies anxiety Hematologic/Lymphatic Hematologic/Lymphatic : Denies easy bleeding or easy bruising EXAM Physical Exam Const Vital Signs: 04/01/24 10:05 04/01/24 11:19 04/01/24 12:06 Temperature 98 F 99.1 F Temperature Source Temporal Oral Pulse Rate 98 90 Respiratory Rate 18 17 Blood Pressure 108/89 H 120/82 H 112/75 Blood Pressure Mean 95 94 87 Pulse Ox 100 100 Oxygen Delivery Method Room Air Room Air 04/01/24 12:29 04/01/24 12:30 Temperature 99.1 F 99.1 F Temperature Source Temporal Pulse Rate 88 88 Respiratory Rate 16 16 Blood Pressure 120/76 120/76 Blood Pressure Mean 90 90 Pulse Ox 100 100 Oxygen Delivery Method Room Air Positive well nourished and well developed General Appearance ED: well developed and NAD Eyes PERRL Neck supple Chest Wall inspection of chest normal and palpation of chest normal Resp normal respiratory effort and clear to auscultation bilaterally Cardio regular rate and regular rhythm GI soft to palpation and non-distended Palpation: tender RLQ, RUQ and suprapubic; Negative for guarding or rigid Back/Spine no CVA tenderness Extremity normal to inspection and full ROM Neuro oriented x3 Sensorium / Orientation: alert Motor Exam: Negative for general weakness Psych mental status grossly normal Skin no rashes or lesions noted MDM MDM MDM (more content not included)... Normal [facility] H AND P Exam - OB/GYNon 03-08 H&P Exam - HEALTH OUTCOMES LIAISON [facility] Medical Records Department [address] [place] [address] H P Exam - HEALTH OUTCOMES LIAISON 04/01/24 1236 MR#: [id number] Acct: [id number] Name: BARBARA SCHWAB Rep #: [id number] : 2000 23 From: Elena Robertson MD PCP: Dr. Melissa Cabezas MD Status:REG [facility] Location: [place] [address] HPI - General General Date of Admission: 04/01/24 Date of Service: 04/01/24 Chief Complaint: Ectopic HPI Narrative BARBARA SCHWAB, is a 23 F who presents right ectopic . Abnormally rising HCG. Bleeding and pain since yesterday. US confirms no IUP and right adnexa mass with blood in the peritoneum. [facility] Medical History IBS (irritable bowel syndrome) Depression GERD (gastroesophageal reflux disease) Home Medications ???Medication ???Instructions ???Recorded ???Last Taken ???Type Prilosec 1 tab PO DAILY Check with primary 06/26/19 05/01/21 06:30 History doctor valacyclovir 1 gram tablet 1,000 mg PO DAILY hsv 11/11/20 05/01/21 06:30 History (Valtrex) rodhbdpz-akl-Td-FA 1 mg 1 tab PO DAILY 03/07/21 05/01/21 06:30 History tablet Phenergan 4 mg PO Q4H PRN PRN n/v 05/02/21 Unknown History progesterone micronized 05/02/21 05/01/21 06:30 History sulfamethoxazole 800 1 tab PO BID 5 days #10 tabs 01/01/23 Unknown Rx mg-trimethoprim 160 mg tablet (Bactrim DS) ondansetron 4 mg disintegrating 4 mg PO Q6H PRN PRN Nausea #10 tabs 10/09/23 Unknown Rx tablet naproxen 500 mg tablet (Naprosyn) 500 mg PO BID PRN pain #12 tabs 12/14/23 Unknown Rx metronidazole 500 mg tablet 500 mg PO BID 04/01/24 Unknown History Allergy/AdvReac Type Severity Reaction Status Date / Time Latex, Natural Rubber AdvReac Rash Verified 04/01/24 10:06 Social History Smoking Status: Current some day smoker tobacco type: cigarettes History Elective abortions Hx Para 0 Spontaneous abortions Hx # Term Pregnancies Ectopic pregnancies Hx # Pregnancies Multiple births # of living children ROS Constitutional Constitutional: Denies fatigue, fever(s) or malaise ENT HEENT: Denies dizziness or headache(s) Cardiovascular Cardiovascular: Denies chest pain, dyspnea or lightheadedness Respiratory/Chest Respiratory/Chest: Denies cough or dyspnea Gastrointestinal Gastrointestinal: Reports abdominal pain; Denies change in bowel habits Genitourinary Genitourinary: Denies burning urination or genital lesions Integumentary Integumentary: Denies rash Neurologic Neurologic: Denies confusion, dizziness, headache(s), numbness or weakness Vital Signs Vital Signs Vital Signs: 04/01/24 10:05 04/01/24 11:19 04/01/24 12:06 Temperature 98 F 99.1 F Temperature Source Temporal Oral Pulse Rate 98 90 Respiratory Rate 18 17 Blood Pressure 108/89 H 120/82 H 112/75 Blood Pressure Mean 95 94 87 Pulse Ox 100 100 Oxygen Delivery Method Room Air Room Air 04/01/24 12:29 04/01/24 12:30 Temperature 99.1 F 99.1 F Temperature Source Temporal Pulse Rate 88 88 Respiratory Rate 16 16 Blood Pressure 120/76 120/76 Blood Pressure Mean 90 90 Pulse Ox 100 100 Oxygen Delivery Method Room Air Weight Weight: 44.1 kg Body Mass Index (BMI) 15.7 Physical Exam Const alert, oriented x3 and no apparent distress HEENT normocephalic Head and Scalp: atraumatic Eyes PERRL Resp normal respiratory effort Cardio regular rate GI Palpation: tender RLQ Extremity normal to inspection Neuro moves all extremities Labs Labs Labs: Blood Type O POSITIVE Antibody Screen NEGATIVE Hct 38.2 % (37-47) Hgb 12.6 g/dL (12.0-15.0) Obstetrics Ultrasound Group B Strep DNA Negative (Negative) Rhogam given: No Miscellaneous Test Assessment Plan (1) Ruptured right tubal ectopic causing hemoperitoneum: PLAN: Plan Laparoscopic right removal of ectopic possible salpingectomy 04/01/24 1240 Cosigner Signature (if applicable): CC: Dr. Elena Robertson MD; Dr. Melissa Cabezas MD Signed [facility] MR/POSTOP.[facility] 04-01-2024 MR/POSTOP.[facility] Medical Records Department [address] [place] [address] Anesthesia Postop Eval I 04/01/24 1503 MR#: [id number] Acct: [id number] Name: BARBARA SCHWAB Rep #: [id number] : 2000 23 From: Vikki Espinosa CRNA PCP: Dr. Melissa Cabezas MD Status:REG [facility] Y Race: C Location: [place] [address] Anesthesia: Postop Eval I Current Vital Signs Temperature: 99 F Pulse Rate: 122 (pt shivering) Blood Pressure: 127/86 Respiratory Rate: 20 Pulse Ox: 100 Oxygen Delivery Method: Room Air Assessment Airway patent: Yes Spontaneous unlabored respirations: Yes Mental status: Awake and Calm nausea: No Vomiting: No Anesthesia Complication: No Fluid Hydration Crystalloid volume administer (ml): 1,000 Total IV fluid infused: 1,000 Progress Note Anesthesia document: Postop Eval 1 completed: Yes 04/01/24 1504 Date Vikki Espinosa CRNA Cosigner Signature: Date CC: Signed Normal [facility] MR/[id number] 04-01-2024 MR/POSTOPAN2 [facility] Medical Records Department [address] [place] [address] Anesthesia Postop Eval II 04/01/24 1524 MR#: [id number] Acct: [id number] Name: BARBARA SCHWAB Rep #: [id number] : 2000 23 From: Alex Carrillo MD PCP: Dr. Melissa Cabezas MD Status:REG [facility] Y Race: C [facility] Anesthesia Postop Eval I Sum Postop Eval Completion status Anesthesia document: Postop Eval 1 completed: Yes Anesthesia Postop Eval I Summary Anesthesia Postop Eval I Summary: Anesthesia Postop Eval I: Assessment Summary Airway patent Yes 04/01/24 15:04 [email or web address] Spontaneous unlabored Yes 04/01/24 15:04 [email or web address] respirations Mental status Awake,Calm 04/01/24 15:04 [email or web address] nausea No 04/01/24 15:04 [email or web address] Vomiting No 04/01/24 15:04 [email or web address] Anesthesia Postop Eval I: Fluid Summary Crystalloid volume administer 1,000 04/01/24 15:04 [email or web address] (ml) Colloids volume administered ( ml) Blood Product volume administered (ml) Total IV fluid infused 1,000 04/01/24 15:04 [email or web address] Anesthesia Postop Eval I: Summary Notes Anesthesia Complication No 04/01/24 15:04 [email or web address] Anesthesia Complication Comment: Post-operative progress note Anesthesia: Postop Eval II Evaluation Mental status: Awake and Calm Pain Level: 1 nausea: No Vomiting: No Complications Anesthesia Complication: No 04/01/24 1526 Date Alex Carrillo MD Cosigner Signature: Date CC: Signed [facility] Operative Reporton 4 Operative Report [facility] Medical Records Department [address] [place] [address] Operative Report 04/01/24 1445 MR#: [id number] Acct: [id number] Name: BARBARA SCHWAB Rep #: [id number] : 2000 23 From: Elena Robertson MD PCP: Dr. Melissa Cabezas MD Status:[facility] Location: [facility] Problems Associated Problem List Diagnoses (1) Ruptured right tubal ectopic causing hemoperitoneum: Report of Operation Date of Procedure: 04/01/24 Pre-Operative Diagnosis: Right ectopic prgnancy Post-Operative Diagnosis: same Surgery/Procedure Performed:: Laparoscopic right salpingectomy, D C Description of Surgical Findings:: Enlarged tortuous right tube with adhesion to ovary. Ovary with adhesions to side wall. Hemoperitoneum about 100 cc. Normal left tube and uterus Surgeon: Elena Robertson fudger: Jonathan Jennings Type of Anesthesia: General Anesthesiologist: Melissa Morales Special Medications: marcaine Specimen's removed: right tube and POC, endometrial currettings Estimated Blood Loss (mL): 25 Fluids Replaced: 1000 cc Description of Procedure: Patient taken to OR with IVF running. She was placed in a dorsal supine position. Anesthesia was inducted without difficulty and she was intubated. She was prepped and drape in the normal sterile fashion. Her bladder was emptied for 100 cc of clear urine. A weighted speculum was placed in the posterior vagina. The cervix was grasped with a single toothed tenaculum. The cervix was dilated and a curette used to collect any endometrial tissue. A ring forceps was placed on the anterior cervix. The speculum was removed. Attention was turned to the abdomen. An infraumbilical incision was made with the scalpel. A 5 mm blunt trocar was placed under direct visualization into the peritoneal cavity. CO2 was used to created a pneumoperitoneum. She was placed in Trendelenburg. The right tube was found to be completely distended from the cornua to the fimbria. The tube was tortuous and adhesed to the right ovary. The right ovary was adherent to the pelvic side was. There was about 100 cc of blood in the pelvis. A right and left lower quadrant port was placed under direct visualization. The right tube was elevated and the adhesion ligated with the LigaSure. The tube was transected with the LigaSure and then along the mesosalpinx to the fimbriated end. Hemostasis was obtained. A 10 mm port was placed in the umbilicus to allow and EndoCatch to be utilized to remove the ectopic. The pelvis was then copiously irrigated with normal saline. The instruments were removed from the cavity. The pneumoperitoneum was was released. The umbilicus was closed with 2-0 Vicryl. The skin incisions were closed with 4-0 Monocryl and covered with Dermabond. The ring forceps was removed from the cervix. Anesthesia was reversed and the patient taken to the PACU in stable condition. An COMPENSATION/BENEFITS SPECIALIST was utilized as an wellness assistant. He held the camera throughout the procedure and closed the skin incisions. Procedure Start Time: 14:05 Procedure Stop Time: 14:50 Complications none Admit VTE Documentation VTE Present on Admission: No VTE Mechan Device Prophylaxis: SCD's 04/02/24 0129 Cosigner Signature (if applicable): CC: Dr. Elena Robertson MD; Dr. Melissa Cabezas MD Signed [facility] Surgery Specimen Level Kathleen 04-01-2024 Surgery Specimen Level IV -------- Patient Age/Sex Location Account Attending Physician -------- BARBARA SCHWAB [facility] [id number] Dr. Elena Robertson MD -------- Specimen: [id number] Received: 04/01/24 Status: CRYS Cruz Num: [id number] Spec Type: ENDOM BX/C Subm Dr: Dr. Elena Robertson MD HEADER OPERATION: Laparoscopic, removal ectopic PRE-OP DIAGNOSIS: Right ectopic TISSUE SUBMITTED: A- Endometrial curettings, B- Right ectopic -------- MICROSCOPIC DIAGNOSIS A. Endometrium, curettings: Secretory endometrium with glandular and stromal breakdown. B. Right ectopic , salpingectomy: Chorionic villi are present. See comment. AM. 04/05/2024 COMMENT B. The findings are consistent with an ectopic . Clinical correlation is suggested. Case has been reviewed in consultation with Dr. Vee who concurs with the above diagnosis. IDC:[email or web address] MICROSCOPIC DESCRIPTION Slides are reviewed. GROSS DESCRIPTION A. Received in fixative is one container labeled with the patient's name and designated Endometrial curettings." The specimen consists of multiple irregular fragments of hemorrhagic soft tissue that in aggregate measure 2.5 x 1.4 x 0.3 cm. The specimen is totally submitted in one cassette. B. Received in fixative is one container labeled with the patient's name and designated Right ectopic ." The specimen consists of a fallopian tube measuring 6.0cm in length and 5.0 to 3.0cm in diameter. Center area of fallopian tube show rupture with blood clots. Also present in the container is a detached piece of fallopian tube measuring 3.0cm in length and up to 1.2cm in diameter. Fimbrial end is identified. Sections reveal the fallopian tube lumen is filled with blood clot. No tissue is identified. Clerical Clerk sections are submitted in five cassettes. 04/02/2024 TC:5 CPT:39218u8 -------- Patient Age/Sex Location Account Attending Physician -------- BARBARA SCHWAB [facility] [id number] Dr. Elena Robertson MD -------- Signed (signature on file) Dr. Allen Ramos DO 04/05/24 1200 -------- [facility] Comment on above: Performed By: #### P SUIV ####[facility] [address] [place], [address] Transvaginal w/Preg USon Transvaginal w/Preg US [facility] Imaging Services [address] [place] [address] Transvaginal w/Preg US MR#: [id number] Acct: [id number] Name: BARBARA SCHWAB Rep #: [id number] : 2000 F 23 From: Nelson anderson MD PCP: Dr. Melissa Cabezas MD Status: [facility] ER Study: Transvaginal w/Preg US Date of Exam: 04/01/24 Exam# [id number] Ordering Dr: Starr Suarez DO [id number] STUDY: FIRST TRIMESTER OBSTETRICAL ULTRASOUND REASON FOR EXAM: Female, 23 years old right sided pain + preg, vaginal bleeding LMP: November 21, 2024 TECHNIQUE: Transvaginal TECHNICAL QUALITY: Adequate. PRIOR ULTRASOUND: None. FINDINGS: There is no demonstrated intrauterine gestational sac. There is no demonstrated yolk sac. The placenta is non-visualized. There is no demonstrated embryo ( pole). The estimated gestation age (EGA) by LMP is 6 weeks, 4 days. The estimated date of delivery (ABRAHAM) by LMP is November 21, 2024. The uterus measures 6.5 cm x 4.6 x 4 cm. There is no demonstrated uterine fibroid. The cervix is closed. The right ovary measures 3.2 cm x 2.3 cm x 1.6 cm. There is a 3.3 cm x 2.4 cm x 2.2 cm complex density inferior to the right ovary. Free fluid is seen around it. Ectopic should be ruled out. There is no visualized right adnexal mass or complex lesion. The left ovary measures 2.8 cm x 1.3 cm x 1 cm. 1.1 cm x 1.1 cm x 0.7 cm complex cyst in the left ovary. There is no visualized left adnexal mass or complex lesion. US/Transvaginal w/Preg US IMPRESSION: No intrauterine . Findings suggestive of ectopic in the right adnexa as described with a moderate amount of free fluid. Electronically Signed: Nelson Marie MD at 12:24 EDT Reading Location ID and State: [facility] / [place] , Service support , CC: Dr. Starr Suarez DO; Dr. Melissa Cabezas MD Residential Program Manager: Signed [facility] hCG Titer Quant., Serumon HCG QUANT. 1089 mIU/mL High 1-3 [facility] Comment on above: Result Comment: hCG levels with Gestational Age Gestational Age hCG mIU/mL (IU/L) 0.2 - 1 week 5 - 50 1-2 weeks 50 - 500 2-3 weeks 100 - 5000 3-4 weeks 500 - 23317 4-5 weeks 1000 - 04343 5-6 weeks 12463 - 100,000 6-8 weeks 37508 - 200,000 2-3 months 09127 - 100,000 Performed By: #### L 500.4050, L700.8000, B882-1, L100.0100 ####[facility] [address] [place], [address] CBC panel Auto (Bld)on 03-26 Erythrocyte distribution width (RBC) [Ratio] 12.4 % 11.5 - 15.0 % [facility] Hematocrit (Bld) [Volume fraction] 39.4 % 39.0 - 51.0 % [facility] Hemoglobin (Bld) [Mass/Vol] 13.3 g/dL 13.0 - 17.0 g/dL [facility] Interpretation and review of laboratory results Normal [facility] MCH (RBC) [Entitic mass] 30.6 pg 26.0 - 34.0 pg [facility] MCHC (RBC) [Mass/Vol] 33.8 g/dL 30.5 - 36.0 g/dL [facility] MCV (RBC) [Entitic vol] 90.6 fL 80.0 - 100.0 fL [facility] Nucleated RBC (Bld) [#/Vol] NINF [facility] Platelet mean volume (Bld) [Entitic vol] 11.1 fL 9.0 - 12.7 fL [facility] Platelets (Bld) [#/Vol] 261 10*3/uL [facility] Comment on above: No clot detected. RBC (Bld) [#/Vol] 4.35 10*6/uL 4.20 - 6.0 0 m/uL [facility] WBC (Bld) [#/Vol] 8.20 10*3/uL [facility] UA DIP,URINE HCG (POC)on Beta HCG ( test) Ql (U) Positive Abnormal Negative [facility] Comment on above: Location:[facility], [address] [place], [address] Interpretation and review of laboratory results Abnormal [facility] Business Dean (POCT) Internal QC OK [facility] Location:[facility], [address] [facility] [id number] [place] [address] POINT OF CARE [facility] EMG(NEURO/NI)on 03-19-2024 Results can be seen in attached scanned documents. If you are a patient reviewing this test result, call the doctor who ordered the test with any questions. [facility] Emergency Department Summary on 12-14-2023 Emergency Department Summary [facility] Medical Records Department [address] [place] [id number] Emergency Department Summary 12/14/23 MR#: [id number] Acct: [id number] Name: BARBARA SCHWAB Rep #: [id number] : 2000 23 From: Chencho Skinner MD PCP: Dr. Melissa Cabezas MD Status:PRE ER Location: ED HPI History of Present Illness Chief Complaint: Flank Pain Informant: patient Narrative Narrative: 23-year-old female healthy started having pain in her right low back/flank that started while she was driving today. Hurts more to move and to sit up. Better to remain still. She had a little nausea with it but no vomiting. No urinary symptoms. No abdominal pain. She denies any shortness of breath. Patient states she has an old vehicle with no power steering. She states for a while the pump was leaking and she was going through $100 worth of power steering fluid per month and just dumping it and so they eventually "unhooked the pump." Now it is a lot of work to steer and she is fairly small only 45 kg. She states yes this could have occurred as a result she has been driving a lot for the past week or 2 whereas before she was avoiding it because it is so hard to turn the wheel. 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, they told her that she was okay not to come in today and to "just go to the doctor and take care of yourself." [facility] Medical History IBS (irritable bowel syndrome) Depression GERD (gastroesophageal reflux disease) Home Medications ???Medication ???Instructions ???Recorded ???Last Taken ???Type Prilosec 1 tab PO DAILY Check with primary 06/26/19 05/01/21 06:30 History doctor valacyclovir 1 gram tablet 1,000 mg PO DAILY hsv 11/11/20 05/01/21 06:30 History (Valtrex) yiwthmni-wxl-[id number] 1 mg 1 tab PO DAILY 03/07/21 05/01/21 06:30 History tablet Phenergan 4 mg PO Q4H PRN PRN n/v 05/02/21 Unknown History progesterone micronized 05/02/21 05/01/21 06:30 History sulfamethoxazole 800 1 tab PO BID 5 days #10 tabs 01/01/23 Unknown Rx mg-trimethoprim 160 mg tablet (Bactrim DS) ondansetron 4 mg disintegrating 4 mg PO Q6H PRN PRN Nausea #10 tabs 10/09/23 Unknown Rx tablet naproxen 500 mg tablet (Naprosyn) 500 mg PO BID PRN pain #12 tabs 12/14/23 Unknown Rx Allergy/AdvReac Type Severity Reaction Status Date / Time Latex, Natural Rubber AdvReac Rash Verified 12/14/23 12:50 Social History Smoking Status: Current some day smoker tobacco type: cigarettes ROS ROS ED Constitutional Constitutional ED: Denies chills or fever(s) Cardiovascular Cardiovascular: Denies chest pain, lightheadedness, palpitations, racing heartbeat or syncope Respiratory/Chest Respiratory/Chest: Denies cough or dyspnea Gastrointestinal Gastrointestinal: Reports nausea; Denies abdominal pain, diarrhea or vomiting Genitourinary Genitourinary ED: Denies dysuria, hematuria or urinary frequency Musculoskeletal Musculoskeletal: Reports back pain; Denies neck pain Integumentary Denies rash Neurologic Neurologic: Denies headache(s), paresthesias or weakness EXAM Physical Exam Const Vital Signs: 12/14/23 12:47 Temperature 97.2 F L Temperature Source Temporal Pulse Rate 106 H Respiratory Rate 15 Blood Pressure 121/88 H Blood Pressure Mean 99 Pulse Ox 100 Oxygen Delivery Method Room Air Positive well nourished and well developed Constitutional Narrative: Well-appearing General Appearance ED: well developed and NAD HEENT Reports moist mucous membranes Negative for trauma Eyes PERRL and EOMs intact bilaterally Neck supple Chest Wall inspection of chest normal and palpation of chest normal Resp normal respiratory effort GI normal to inspection, nondistended, normoactive bowel sounds and non-tender Back/Spine no CVA tenderness Back/Spine Narrative: Diffuse right paraspinal lumbar musculoskeletal tenderness with normal on inspection, patient winces that she is sitting up as it exacerbates the pain but she is able. Tender up into lower areas of the latissimus dorsi as well, no focal rib tenderness. Some mild tenderness superficially around the flank and into the right lower rib cage but not the abdomen. Lumbar Spine / Lower Back: Negative for lumbar spinal tenderness Extremity normal to inspection Neuro oriented x3, CN's II-XII intact bilaterally and no sensory deficits noted Sensorium / Orientation: alert Motor Exam: strength 5/5 throughout Psych mental status grossly normal Skin no rashes or lesions noted and no wounds MDM MDM MDM Narrative Medical decision making narrative: Urinalysis is s (more content not included)... Normal [facility] ,Urineon 12-14-2023 Beta HCG ( test) Ql (U) Negative Normal [facility] Comment on above: Order Comment: JASSON CTOR TO SPECIFY Result Comment: Very dilute urine specimens, as indicated by a low specific gravity, may not contain marketing sales representative levels of hCG. If is still suspected, a first morning urine specimen should be collected 48 hours later and tested. Performed By: #### [id number], [id number] #### [facility] [address] [place], [address] Urinalysis, Completeon 12-13 BACTERIA 1+ /hpf Normal None Seen [facility] Comment on above: Order Comment: JASSON CTOR TO SPECIFY Performed By: #### [id number], [id number] #### [facility] [address] [place], [address] EPI,SQUAMOUS 5-10 SEEN Normal 5-10 [facility] Comment on above: Order Comment: JASSON CTOR TO SPECIFY Performed By: #### L [id number], [id number] #### [facility] [address] [place], [address] Mucus Ql (Urine sed) 1+ /hpf Normal [facility] Comment on above: Order Comment: JASSON CTOR TO SPECIFY Performed By: #### L [id number], [id number] #### [facility] [address] [place], [address] WBC 0-5 SEEN Normal 0-5 [facility] Comment on above: Order Comment: JASSON CTOR TO SPECIFY Performed By: #### L [id number], [id number] #### [facility] [address] [place], [address] RBC 0 SEEN Normal 0-5 [facility] Comment on above: Order Comment: JASSON CTOR TO SPECIFY Performed By: #### L [id number], [id number] #### [facility] [place], [address] Absolute lymphocyte countOrd ered By: Eze Norman on 10-09-2023 Lymphocytes Auto (Unsp spec) [#/Vol] 2.11 10*3/uL 0.83-4.51 [facility] Automated lymphocyte count a s percentage of total leukocytesOrdered By: Eze Norman on 10-09-2023 Lymphocytes/100 WBC Auto (Unsp spec) 34.8 % 19-41 [facility] Basophil percentageOrdered B y: Eze Norman on 10-09-2023 Basophil percentage 0 SEEN /hpf 0-5 [facility] Basophils/100 WBC (Bld) 0.7 % 0-1 [facility] Bilirubin [Mass/Vol] 0.70 mg/dL 0.20-1.00 [facility] Comment on above: For patients on eltr ombopag therapy, use of Dimension Reardan TBIL is not recommended. Chloride [Moles/Vol] 111 mmol/L 98-107 [facility] Eosinophils/100 WBC (Bld) 1.0 % 0-5 [facility] Glucose [Mass/Vol] 85 mg/dL 74-106 [facility] Hemoglobin (Bld) [Mass/Vol] 13.0 g/dL 12.0-15.0 [facility] Monocytes/100 WBC (Bld) 6.3 % 0-10 [facility] Neutrophils (Bld) [#/Vol] 3.5 10*3/uL 2.0-7.7 [facility] Neutrophils/100 WBC (Bld) 57.0 % 47-70 [facility] Potassium [Moles/Vol] 4.0 mmol/L 3.5-5.[address] [facility] Protein [Mass/Vol] 6.8 g/dL 6.4-8.2 [facility] Sodium [Moles/Vol] 141 mmol/L 136-145 [facility] WBC (Bld) [#/Vol] 6.1 10*3/uL 4.4-11.0 [facility] Bilirubin Test strip Ql (U)O rdered By: Eze Norman on 10-09-2023 Bilirubin Ql (U) Negative Negative [facility] Determination of erythrocyte mean corpuscular volume (MCV)Ordered By: Eze Norman on 10-09-2023 MCV (RBC) [Entitic vol] 90.8 fL 81-99 [facility] Erythrocyte distribution wid th ratioOrdered By: Eze Norman on 10-09-2023 Erythrocyte distribution width (RBC) [Ratio] 12.5 % 11.6-14.6 [facility] Erythrocyte distribution wid th standard deviationOrdered By: Eze Norman on 10-09-2023 Erythrocyte distribution width (RBC) [Entitic vol] 41.5 fL 35.1-43.9 [facility] Hematocrit Auto (Bld) [Volum e fraction]Ordered By: Eze Norman on 10-09-2023 Hematocrit (Bld) [Volume fraction] 39.3 % 37-47 [facility] Immature granulocytes/100 WB C Auto (Bld)Ordered By: Eze Norman on 10-09-2023 Immature granulocytes/100 WBC (Bld) 0.200 % 0.0-0.9 [facility] Comment on above: IG% - Immature Granu locytes (promyelocytes, myelocytes and metamyelocytes) > 1% indicates that a LEFT SHIFT is Present. Ketones Test strip Ql (U)Ord ered By: Eze Norman on 10-09-2023 Ketones Ql (U) Negative Negative [facility] - Chemistry and C hemistry - challengeOrdered By: Eze Norman on 10-09-2023 HCG ( test) Ql (U) Negative [facility] Comment on above: Very dilute urine sp ecimens, as indicated by a low specificgravity, may not contain marketing sales representative levels of hCG. If is still suspected, a first morning urinespecimen should be collected 48 hours later and tested. Albumin/Globulin [Mass ratio] 1.4 {ratio} 0.9-2.4 [facility] ALP [Catalytic activity/Vol] 39 U/L 45-117 [facility] ALT [Catalytic activity/Vol] 13 U/L 13-56 [facility] CO2 [Moles/Vol] 26.0 mmol/L 21.0-32.0 [facility] Globulin (S) [Mass/Vol] 2.8 g/dL 2.2-4.2 [facility] Lipase [Catalytic activity/Vol] 15 U/L 13-75 [facility] Comment on above: Please note:LIPASE r evised reference range effective 22. New Lipase methodology. Expected to produce lower values than the previous assay method. NEW Reference Range: 13 - 75 U/L Urea nitrogen/Creatinine [Mass ratio] 7.8 mg/mg 10-20 [facility] - Hematology and Cell countsOrdered By: Eze Norman on 10-09-2023 MCH (RBC) [Entitic mass] 30.0 pg 27.0-32.0 [facility] MCHC (RBC) [Mass/Vol] 33.1 g/dL 32-[address] [facility] Nucleated RBC/100 WBC (Bld) [Ratio] 0 % 0-5 [facility] Platelet mean volume (Bld) [Entitic vol] 10.8 fL 6.2-12.0 [facility] Platelets (Bld) [#/Vol] 239 10*3/uL 150-450 [facility] - Microbiology an d Antimicrobial susceptibilityOrdered By: Eze Norman on 10-09-2023 SARS-CoV-2 (COVID-19) RNA AQUILINO+probe Ql (Unsp spec) [facility] Mucus LM Ql (Urine sed)Order ed By: Eze Norman on 10-09-2023 Mucus Ql (Urine sed) 0 SEEN /hpf [facility] Nitrite Test strip Ql (U)Ord ered By: Eze Norman on 10-09-2023 Nitrite Ql (U) Negative Negative [facility] No Panel InformationOrdered By: Eze Norman on 10-09-2023 Urine RBC 0-5 SEEN /hpf 0-5 [facility] Estimated Creatinine Clearance Calc 103.55 ml/min [facility] Estimated GFR (MDRD) Amer 150 mL/min >60 [facility] Comment on above: GFR Calc Estimated GFR (MDRD) Non-Af Amer 124 mL/min >60 [facility] Comment on above: Non- GFR Calc Protein Test strip Ql (U)Ord ered By: Eze Norman on 10-09-2023 Protein Ql (U) Negative Negative [facility] RBC Auto (Bld) [#/Vol]Ordere d By: Eze Norman on 10-09-2023 RBC (Bld) [#/Vol] 4.33 10*6/uL 4.2-5.4 [facility] Serum or plasma calcium xochtil urement (mass/volume)Ordered By: Eze Norman on 10-09-2023 Calcium [Mass/Vol] 8.6 mg/dL 8.5-10.1 [facility] Serum or plasma creatinine m easurement (mass/volume)Ordered By: Eze Norman on 10-09-2023 Creatinine [Mass/Vol] 0.64 mg/dL 0.55-1.[address] [facility] Comment on above: The validity of the calculated GFR & GFRAA in patients over 70 years has not been determined. Clinical correlation is essential. Serum or plasma urea nitroge n measurement (mass/volume)Ordered By: Eze Norman on 10-09-2023 Urea nitrogen [Mass/Vol] 5 mg/dL 7-18 [facility] Squamous epithelial cells de tection in urine sediment by light microscopyOrdered By: Eze Norman on 10-09-2023 Epithelial cells.squamous LM Ql (Urine sed) 0-5 SEEN /hpf 5-10 [facility] Thin prep Papanicolaou smear with manual screeningOrdered By: Eze Norman on 10-09-2023 Thin prep Papanicolaou smear with manual screening 4.0 g/dL 3.2-5.0 [facility] Thin prep Papanicolaou smear with manual screening 10 U/L 15-37 [facility] Thin prep Papanicolaou smear with manual screening 4 5-15 [facility] Urine blood detectionOrdered By: Eze Norman on 10-09-2023 RBC Ql (U) 25 /ul Negative [facility] Urine clarityOrdered By: Romulo Norman on 10-09-2023 Clarity (U) Sl. Cloudy Clear [facility] Urine color determinationOrd ered By: Eze Norman on 10-09-2023 Color (U) Yellow Yellow [facility] Urine glucose detectionOrder ed By: Eze Norman on 10-09-2023 Glucose Ql (U) Normal mg/dl Normal [facility] Urine leukocyte esterase det ection by dipstickOrdered By: Eze Norman on 10-09-2023 Leukocyte esterase Test strip Ql (U) Negative Negative [facility] Urine pHOrdered By: Eze newby on 10-09-2023 pH (U) 7.0 [pH] 5.0 - 8.0 [facility] Urine sediment bacteria coun t by microscopy (number/high power field)Ordered By: Eze Norman on 10-09-2023 Bacteria LM.HPF (Urine sed) [#/Area] 0 /[HPF] None Seen [facility] Urine specific gravity measu rementOrdered By: Eze Norman on 10-09-2023 Specific gravity (U) [Rel density] 1.010 1.002-1.030 [facility] Urine urobilinogen measureme ntOrdered By: Eze Norman on 10-09-2023 Urobilinogen Ql (U) Normal mg/dl Normal [facility] UA DIP, URINE (POC)on 2023 BILIRUBIN UA (POCT) Moderate Abnormal Negative [facility] CLARITY UA (POCT) Slightly Cloudy Cl [facility] COLOR UA (POCT) Red [facility] GLUCOSE UA (POCT) 250 mg/dL Abnormal Negative mg/dL [facility] Hemoglobin Ql (U) Trace-intact Abnormal Negative [facility] KETONE UA (POCT) 15 mg/dL Abnormal Negative mg/dL [facility] LEUKOCYTES UA (POCT) Large Abnormal Negative [facility] NITRITE UA (POCT) Positive Abnormal Negative [facility] PH UA (POCT) 5.0 4.5 - 8.0 [facility] Protein Ql (U) >=300 Abnormal Negative mg/dL [facility] SPECIFIC GRAVITY UA (POCT) <=1.005 Abnormal 1.005 - 1.030 [facility] UROBILINOGEN UA (POCT) >=8.0 Abnormal Luz Maria l E.U./dL [facility] UA DIP, URINE (POC)on 2022 BILIRUBIN UA (POCT) Negative Negative [facility] CLARITY UA (POCT) Cloudy [facility] COLOR UA (POCT) Yellow [facility] GLUCOSE UA (POCT) Negative Negative mg/dL [facility] Hemoglobin Ql (U) Large Abnormal Negative [facility] KETONE UA (POCT) Negative Negative mg/dL [facility] LEUKOCYTES UA (POCT) Moderate Abnormal Negative [facility] NITRITE UA (POCT) Negative Negative [facility] PH UA (POCT) 5.5 4.5 - 8.0 [facility] Protein Ql (U) 30 mg/dL Abnormal Negative mg/dL [facility] SPECIFIC GRAVITY UA (POCT) 1.010 1.005 - 1.030 [facility] UROBILINOGEN UA (POCT) 0.2 E.U./dL Luz Maria l E.U./dL [facility] US FEMALE PELVIS TRANSVAGon 02-06-2023 [facility] CBC W Auto Differential pane l (Bld)on 01-30-2023 Basophils (Bld) [#/Vol] 0.04 10*3/uL <0.11 k/uL [facility] Basophils/100 WBC (Bld) 0.5 % C [facility] Differential cell count method Nom (Bld) Auto [facility] Eosinophils (Bld) [#/Vol] 0.06 10*3/uL <0.46 k/uL [facility] Eosinophils/100 WBC (Bld) 0.7 % [facility] Erythrocyte distribution width (RBC) [Ratio] 12.5 % 11.5 - 15.0 % [facility] Hematocrit (Bld) [Volume fraction] 41.1 % 39.0 - 51.0 % [facility] Hemoglobin (Bld) [Mass/Vol] 13.7 g/dL 13.0 - 17.0 g/dL [facility] Immature granulocytes (Bld) [#/Vol] <0.10 k/uL [facility] Immature granulocytes/100 WBC (Bld) 0.2 % [facility] Lymphocytes (Bld) [#/Vol] 2.63 10*3/uL 1.00 - 4.00 k/uL [facility] Lymphocytes/100 WBC (Bld) 29.6 % [facility] MCH (RBC) [Entitic mass] 29.5 pg 26.0 - 34.0 pg [facility] MCHC (RBC) [Mass/Vol] 33.3 g/dL 30.5 - 36.0 g/dL [facility] MCV (RBC) [Entitic vol] 88.6 fL 80.0 - 100.0 fL [facility] Monocytes (Bld) [#/Vol] 0.46 10*3/uL <0.87 k/uL [facility] Monocytes/100 WBC (Bld) 5.2 % [facility] Neutrophils (Bld) [#/Vol] 5.67 10*3/uL 1.45 - 7.50 k/uL [facility] Neutrophils/100 WBC (Bld) 63.8 % [facility] Nucleated RBC (Bld) [#/Vol] <0.01 k/uL [facility] Nucleated RBC/100 WBC (Bld) [Ratio] 0.0 /100 WBC [facility] Platelet mean volume (Bld) [Entitic vol] 10.6 fL 9.0 - 12.7 fL [facility] Platelets (Bld) [#/Vol] 256 10*3/uL 150 - 400 k/uL [facility] RBC (Bld) [#/Vol] 4.64 10*6/uL 4.20 - 6.0 0 m/uL [facility] WBC (Bld) [#/Vol] 8.88 10*3/uL 3.70 - 11. 00 k/uL [facility] HCG QUAL UR B/Oon 01-30-2023 status Negative neg - pos [facility] Quality Check Yes [facility] HCG QUAL UR B/Oon 01-16-2023 status Negative neg - pos [facility] Quality Check Yes [facility] Absolute lymphocyte countOrd ered By: Jonathan Rush on 01-01-2023 Lymphocytes Auto (Unsp spec) [#/Vol] 3.24 10*3/uL 0.83-4.51 [facility] Basophil percentageOrdered B y: Jonathan Rush on 01-01-2023 Basophils/100 WBC (Bld) 0.3 % 0-1 [facility] Bilirubin [Mass/Vol] 0.30 mg/dL 0.20-1.00 [facility] Comment on above: For patients on eltr ombopag therapy, use of Dimension Reardan TBIL is not recommended. Chloride [Moles/Vol] 107 mmol/L 98-107 [facility] Eosinophils/100 WBC (Bld) 0.3 % 0-5 [facility] Glucose [Mass/Vol] 87 mg/dL 74-106 [facility] Neutrophils (Bld) [#/Vol] 7.5 10*3/uL 2.0-7.7 [facility] Neutrophils/100 WBC (Bld) 65.6 % 47-70 [facility] Potassium [Moles/Vol] 3.3 mmol/L 3.5-5.[address] [facility] Protein [Mass/Vol] 7.2 g/dL 6.4-8.2 [facility] Sodium [Moles/Vol] 139 mmol/L 136-145 [facility] WBC (Bld) [#/Vol] 11.5 10*3/uL 4.4-11.0 [facility] Basophil percentage 25-50 SEEN /hpf 0-5 [facility] Beta hCG serum qualOrdered B y: Jonathan Rush on 01-01-2023 Beta HCG ( test) Ql Negative [facility] Bilirubin Test strip Ql (U)O rdered By: Jonathan Rush on 01-01-2023 Bilirubin Ql (U) Negative Negative [facility] Blood erythrocytes count (nu mber/volume)Ordered By: Jonathan Rush on 01-01-2023 RBC (Bld) [#/Vol] 4.41 10*6/uL 4.2-5.4 [facility] Blood hemoglobin measurement (mass/volume)Ordered By: Jonathan Rush on 01-01-2023 Hemoglobin (Bld) [Mass/Vol] 13.4 g/dL 12.0-15.0 [facility] Blood lymphocytes/100 leukoc ytesOrdered By: Jonathan Rush on 01-01-2023 Lymphocytes/100 WBC (Bld) 28.3 % 19-41 [facility] Blood monocytes/100 leukocyt esOrdered By: Jonathan Rush on 01-01-2023 Monocytes/100 WBC (Bld) 4.5 % 0-10 [facility] Blood platelet mean volumeOr dered By: Jonathan Rush on 01-01-2023 Platelet mean volume (Bld) [Entitic vol] 10.5 fL 6.2-12.0 [facility] Determination of erythrocyte mean corpuscular volume (MCV)Ordered By: Jonathan Rush on 01-01-2023 MCV (RBC) [Entitic vol] 89.8 fL 81-99 [facility] Hematocrit Auto (Bld) [Volum e fraction]Ordered By: Jonathan Rush on 01-01-2023 Hematocrit (Bld) [Volume fraction] 39.6 % 37-47 [facility] Ketones Test strip Ql (U)Ord ered By: Jonathan Rush on 01-01-2023 Ketones Ql (U) Negative Negative [facility] - Chemistry and C hemistry - challengeOrdered By: Jonathan Rush on 01-01-2023 ALP [Catalytic activity/Vol] 42 U/L 45-117 [facility] ALT [Catalytic activity/Vol] 13 U/L 13-56 [facility] CO2 [Moles/Vol] 27.0 mmol/L 21.0-32.0 [facility] Globulin (S) [Mass/Vol] 3.1 g/dL 2.2-4.2 [facility] Urea nitrogen/Creatinine [Mass ratio] 12.6 mg/mg 10-20 [facility] - Hematology and Cell countsOrdered By: Jonathan Rush on 01-01-2023 Erythrocyte distribution width (RBC) [Entitic vol] 43.3 fL 35.1-43.9 [facility] Erythrocyte distribution width (RBC) [Ratio] 13.1 % 11.6-14.6 [facility] Immature granulocytes/100 WBC (Bld) 1.000 % 0.0-0.9 [facility] Comment on above: IG% - Immature Granu locytes (promyelocytes, myelocytes and metamyelocytes) > 1% indicates that a LEFT SHIFT is Present. MCH (RBC) [Entitic mass] 30.4 pg 27.0-32.0 [facility] Nucleated RBC/100 WBC (Bld) [Ratio] 0 % 0-5 [facility] MCHC Auto (RBC) [Mass/Vol]Or dered By: Jonathan Rush on 01-01-2023 MCHC (RBC) [Mass/Vol] 33.8 g/dL 32-[address] [facility] Mucus LM Ql (Urine sed)Order ed By: Jonathan Rush on 01-01-2023 Mucus Ql (Urine sed) 0 SEEN /hpf [facility] Nitrite Test strip Ql (U)Ord ered By: Jonathan Rush on 01-01-2023 Nitrite Ql (U) Negative Negative [facility] No Panel InformationOrdered By: Jonathan Rush on 01-01-2023 Estimated Creatinine Clearance Calc 96.02 ml/min [facility] Estimated GFR (MDRD) Amer 133 mL/min >60 [facility] Comment on above: GFR Calc Estimated GFR (MDRD) Non-Af Amer 110 mL/min >60 [facility] Comment on above: Non- GFR Calc Platelets bldOrdered By: Edward Rush on 01-01-2023 Platelets (Bld) [#/Vol] 245 10*3/uL 150-450 [facility] Protein Test strip Ql (U)Ord ered By: Jonathan Rush on 01-01-2023 Protein Ql (U) 30 mg/dl Negative [facility] Serum or plasma albumin xochitl urement (mass/volume)Ordered By: Jonathan Rush on 01-01-2023 Albumin [Mass/Vol] 4.1 g/dL 3.2-5.0 [facility] Serum or plasma albumin/glob ulin mass ratioOrdered By: Jonathan Rush on 01-01-2023 Albumin/Globulin [Mass ratio] 1.3 {ratio} 0.9-2.4 [facility] Serum or plasma calcium xochitl urement (mass/volume)Ordered By: Jonathan Rush on 01-01-2023 Calcium [Mass/Vol] 8.9 mg/dL 8.5-10.1 [facility] Serum or plasma creatinine m easurement (mass/volume)Ordered By: Jonathan Rush on 01-01-2023 Creatinine [Mass/Vol] 0.72 mg/dL 0.55-1.[address] [facility] Comment on above: The validity of the calculated GFR & GFRAA in patients over 70 years has not been determined. Clinical correlation is essential. Serum or plasma urea nitroge n measurement (mass/volume)Ordered By: Jonathan Rush on 01-01-2023 Urea nitrogen [Mass/Vol] 9 mg/dL 7-18 [facility] Squamous epithelial cells de tection in urine sediment by light microscopyOrdered By: Jonathan Rush on 01-01-2023 Epithelial cells.squamous LM Ql (Urine sed) 0-5 SEEN /hpf 5-10 [facility] Thin prep Papanicolaou smear with manual screeningOrdered By: Jonathan Rush on 01-01-2023 Thin prep Papanicolaou smear with manual screening 8 U/L 15-37 [facility] Thin prep Papanicolaou smear with manual screening 5 5-15 [facility] Urine blood detectionOrdered By: Jonathan Rush on 01-01-2023 RBC Ql (U) 10 /ul Negative [facility] RBC Ql (U) 0-5 SEEN /hpf 0-5 [facility] Urine clarityOrdered By: Edward Rush on 01-01-2023 Clarity (U) Sl. Cloudy Clear [facility] Urine color determinationOrd ered By: Jonathan Rush on 01-01-2023 Color (U) Yellow Yellow [facility] Urine glucose detectionOrder ed By: Jonathan Rush on 01-01-2023 Glucose Ql (U) Normal mg/dl Normal [facility] Urine leukocyte esterase det ection by dipstickOrdered By: Jonathan Rush on 01-01-2023 Leukocyte esterase Test strip Ql (U) 100 /ul Negative [facility] Urine pHOrdered By: Jonathan abbott on 01-01-2023 pH (U) 6.5 [pH] 5.0 - 8.0 [facility] Urine sediment bacteria coun t by microscopy (number/high power field)Ordered By: Jonathan Rush on 01-01-2023 Bacteria LM.HPF (Urine sed) [#/Area] RARE /hpf None Seen [facility] Urine specific gravity measu rementOrdered By: Jonathan Rush on 01-01-2023 Specific gravity (U) [Rel density] 1.015 1.002-1.030 [facility] Urobilinogen Auto test strip Ql (U)Ordered By: Jonathan Rush on 01-01-2023 Urobilinogen Ql (U) Normal mg/dl Normal [facility] Influenza virus A and B RNA and SARS-CoV-2 (COVID-19) N gene panel AQUILINO+probe (Resp)on 12-26-2022 FLUAV RNA AQUILINO+probe Ql (Unsp spec) Not detected Not Detected [facility] FLUBV RNA AQUILINO+probe Ql (Unsp spec) Not detected Not Detected [facility] [facility] SARS-CoV-2 (COVID-19) RNA AQUILINO+probe Ql (Resp) Not detected See comment Marion Maurer STREP A MOLECULAR (POC)on Procedural Control Valid [facility] Strep A (POCT) Positive Abnormal Negative [facility] UA DIP, URINE (POC)on 2021 BILIRUBIN UA (POCT) Small Abnormal Negative [facility] CLARITY UA (POCT) Cloudy [facility] COLOR UA (POCT) Dark yellow [facility] GLUCOSE UA (POCT) Negative Negative mg/dL [facility] HEMOGLOBIN/BLOOD UA (POCT) Small Abnormal Negative [facility] KETONE UA (POCT) Negative Negative mg/dL [facility] LEUKOCYTES UA (POCT) Negative Negative [facility] NITRITE UA (POCT) Negative Negative [facility] PH UA (POCT) 6.0 4.5 - 8.0 [facility] Protein Ql (U) >=300 Abnormal Negative mg/dL [facility] SPECIFIC GRAVITY UA (POCT) >=1.030 1.005 - 1.030 [facility] UROBILINOGEN UA (POCT) 0.2 E.U./dL Luz Maria l E.U./dL [facility] UA DIP, URINE (POC)on 2021 BILIRUBIN UA (POCT) Negative Negative [facility] CLARITY UA (POCT) [facility] COLOR UA (POCT) Other [facility] GLUCOSE UA (POCT) Negative Negative mg/dL [facility] HEMOGLOBIN/BLOOD UA (POCT) Trace-lysed Abnormal Negative [facility] KETONE UA (POCT) Negative Negative mg/dL [facility] LEUKOCYTES UA (POCT) Moderate Abnormal Negative [facility] NITRITE UA (POCT) Negative Negative [facility] PH UA (POCT) 8.0 4.5 - 8.0 [facility] Protein Ql (U) 100 mg/dL Abnormal Negative mg/dL [facility] SPECIFIC GRAVITY UA (POCT) 1.020 1.005 - 1.030 [facility] UROBILINOGEN UA (POCT) 0.2 E.U./dL Luz Maria l E.U./dL [facility] No Panel Informationon 12-28 Radiology Study observation (narrative) [facility] XR Ankle - left AP and Later al and obliqueon 12-28-2021 IMPRESSION: Soft tissue swelling along the lateral malleolus. Residential Program Manager: CARROLL Transcribe Date/Time: Dec 28 2021 1:04P Dictated by : RADHA JONES MD This examination was interpreted and the report reviewed and electronically signed by: RADHA JONES MD on Dec 28 2021 1:12PM EST ZZZ_DO_NOT_US E_DIVISION OF RADIOLOGY * * *Final Report* * * DATE OF EXAM: Dec 28 2021 1:02PM WOX 5298 - XR ANKLE 3V AP/LAT/OBL LT / PROCEDURE REASON: Injury of left ankle, initial encounter * * * * Physician Interpretation * * * * EXAM TITLE: XR ANKLE 3V AP/LAT/OBL LT EXAM DATE/TIME: 12/28/2021 1:02 PM COMPARISON: None. CLINICAL INDICATION/HISTORY: Fall. TECHNIQUE: AP, mortise and lateral views of the left ankle are presented. FINDINGS: No acute fractures or subluxations are noted. The mortise joint spaces are well preserved. There is questionable small joint effusion. The mineralization of the bones is normal. There is soft tissue swelling along the lateral malleolus. ZZZ_DO_NOT_US E_DIVISION OF RADIOLOGY Provider, [facility] - 12/28/2021 * * *Final Report* * * DATE OF EXAM: Dec 28 2021 1:02PM WOX 5298 - XR ANKLE 3V AP/LAT/OBL LT / PROCEDURE REASON: Injury of left ankle, initial encounter * * * * Physician Interpretation * * * * EXAM TITLE: XR ANKLE 3V AP/LAT/OBL LT EXAM DATE/TIME: 12/28/2021 1:02 PM COMPARISON: None. CLINICAL INDICATION/HISTORY: Fall. TECHNIQUE: AP, mortise and lateral views of the left ankle are presented. FINDINGS: No acute fractures or subluxations are noted. The mortise joint spaces are well preserved. There is questionable small joint effusion. The mineralization of the bones is normal. There is soft tissue swelling along the lateral malleolus. IMPRESSION IMPRESSION: Soft tissue swelling along the lateral malleolus. Residential Program Manager: CARROLL Transcribe Date/Time: Dec 28 2021 1:04P Dictated by : RADHA JONES MD This examination was interpreted and the report reviewed and electronically signed by: RADHA JONES MD on Dec 28 2021 1:12PM EST [facility] XR Ankle - left AP and Later al and obliqueOrdered By: [facility] Provider on 12-28-2021 [facility] XR Knee - left 4 Viewson IMPRESSION: No convincing acute radiographic abnormalities in the left knee. Residential Program Manager: CARROLL Transcribe Date/Time: Dec 28 2021 1:05P Dictated by : RADHA JONES MD This examination was interpreted and the report reviewed and electronically signed by: RADHA JONES MD on Dec 28 2021 1:09PM EST ZZZ_DO_NOT_US E_DIVISION OF RADIOLOGY * * *Final Report* * * DATE OF EXAM: Dec 28 2021 1:02PM WOX 5202 - XR KNEE 4V AP/PA BOTH+LAT/JERAMIE LT / PROCEDURE REASON: Acute pain of left knee * * * * Physician Interpretation * * * * EXAM TITLE: XR KNEE 4V AP/PA BOTH+LAT/JERAMIE LT EXAM DATE/TIME: 12/28/2021 1:02 PM COMPARISON: None. CLINICAL INDICATION/HISTORY: Fall. TECHNIQUE: AP/PA, lateral and sunrise views of the left knee are presented. FINDINGS: No acute fractures or subluxations are noted. There is a corticated linear lucency in the patella, seen on lateral view, likely representing vascular channel. The joint spaces are well preserved. There is no evidence of joint effusion. The mineralization of the bones is normal. There is no significant soft tissue swelling. ZZZ_DO_NOT_US E_DIVISION OF RADIOLOGY Provider, [facility] - 12/28/2021 * * *Final Report* * * DATE OF EXAM: Dec 28 2021 1:02PM WOX 5202 - XR KNEE 4V AP/PA BOTH+LAT/JERAMIE LT / PROCEDURE REASON: Acute pain of left knee * * * * Physician Interpretation * * * * EXAM TITLE: XR KNEE 4V AP/PA BOTH+LAT/JERAMIE LT EXAM DATE/TIME: 12/28/2021 1:02 PM COMPARISON: None. CLINICAL INDICATION/HISTORY: Fall. TECHNIQUE: AP/PA, lateral and sunrise views of the left knee are presented. FINDINGS: No acute fractures or subluxations are noted. There is a corticated linear lucency in the patella, seen on lateral view, likely representing vascular channel. The joint spaces are well preserved. There is no evidence of joint effusion. The mineralization of the bones is normal. There is no significant soft tissue swelling. IMPRESSION IMPRESSION: No convincing acute radiographic abnormalities in the left knee. Residential Program Manager: CARROLL Transcribe Date/Time: Dec 28 2021 1:05P Dictated by : RADHA JONES MD This examination was interpreted and the report reviewed and electronically signed by: RADHA JONES MD on Dec 28 2021 1:09PM [facility] CNDSon 05-10-2021 DS HNO ID: [id number] Author: Elena Chung APRN.WELDING MACHINE OPERATOR FRICTION Service: Obstetrics Author Type: Nurse Practitioner Type: Discharge Summary Filed: 05/10/2021 10:27 AM Note Text: Attestation signed by Abby Matt DO at 05/11/2021 2:02 PM Attending Note: Nurse practitioner's note reviewed. Burger findings confirmed. Abby Matt DO [facility] OB Laborist DISCHARGE SUMMARY OBSTETRICS PATIENT NAME: Barbara Gutierrez ADMISSION DATE: 05/02/2021 DISCHARGE DATE: 05/10/2021 Attending Physician: Abby Matt DO Code Status: Not on file Treatment Team: Attending Provider: Abby Matt DO Maternal Obstetric Provider: Antonieta Mendoza Reason for Hospitalization: Intrauterine . Principal Problem: premature rupture of membranes POA: Yes Active Problems: History of herpes genitalis POA: Yes Dichorionic diamniotic twin in second trimester POA: Yes Resolved Problems: * No resolved hospital problems. * PROCEDURES/SURGERY DURING HOSPITALIZATION: Delivery Summary: Angel Gutierrez [[id number]] Delivery Information: Delivery Date: 05/08/21 Delivery type: Vaginal, Spontaneous Delivering Clinician: Abby Matt DO Vacuum Used: No Forceps Used: No Shoulder Dystocia Present: No Lacerations: Periurethral Episiotomy: None [place]: Gender: Female One Minute : 8 Five Minute : 9 Mandeep Gutierrez [[id number]] Delivery Information: Delivery Date: 05/08/21 Delivery type: Vaginal, Spontaneous Delivering Clinician: Abby Matt DO Vacuum Used: No Forceps Used: No Shoulder Dystocia Present: No Lacerations: Periurethral Episiotomy: None [place]: Gender: Male One Minute : 8 Five Minute : 9 Procedures (if applicable) Hospital Course: 20 year old female who is Day #2 from delivery as noted above. Pt's peripartum course was complicated by GHTN- ASX- BP normotensive with intermittent mild range BP- RN notified to get Pt a BP cuff through our program at no cost to pt as she states she can not afford BP cuff- discussed with pt the importance of monitoring BP BID reviewed s/s and BP parameters- pt instructed to follow up with OB in 3 days for BP check. H/o anxiety/depression- mood stable - no meds- SW consulted no additional interventions needed at this time. Babies in NICU SW consulted pt pumping fopr babies. H/o HSV no current symptoms on Valtrex during quoc SSE on admission to . Placental abruption- manual extraction, s/p ancef no evidence of infection - no evidence of PPH bleeding stable. Declined COVID vaccine. The delivery was uncomplicated. Patient was seen today and reports doing well without complaints. Patient progressed through milestones without difficulty and is ready for discharge. During the period the patient remained afebrile with stable vital signs. Patients pain and bleeding is well controlled. She is tolerating food/fluids well, ambulating, passing flatus, and urinating without difficulty. Provided patient with discharge instructions and addressed all questions and concerns during visit. Plan of care discussed with: Provider, RN, Patient. Consulting Teams During Hospitalization: Obstetrics: Dr Matt Patient Condition @ Discharge: Good Discharge Disposition: Home/Self Care Discharge Physical Exam: Heart: RR, S1, S2 Lungs: clear to auscultation Abdomen: Soft Appropriately tender to palpation Bowel sounds present Fundus firm below umbilicus Non-distended Extremities: No calf tenderness and Edema equal bilaterally Specific Concerns for Follow-up Post Discharge: Routine Care, Hypertension in , Mental Health, Maintenance of chronic medical problems and placental abruption and h/o PTD Information Provided to Patient: Activity When You Leave the Hospital Allow for time for pelvic rest which includes no sexual activity, douching or tampon use for [address] as tolerated after a vaginal delivery. Make sure you are able to respond to adverse traffic conditions: Make sure you are not too sore to stop or turn quickly Gradually increase your activity level until back to normal at approximately 6 weeks post- (Walking and stairs as tolerated) May use stairs No baths for: 6 weeks or swimming No walking restrictions Shower Daily Diet Instructions Regular Wound/Surgical Site Care Use enrique/squirt bottle after urination or bowel movements Use enrique/squirt bottle with warm water until no vaginal drainage You may spot bleed for up to six week post- Discharge Medications: Current Discharge Medication List START taking these medications acetaminophen (TYLENOL) 650 mg Take 650 mg by mouth every 4 hours as needed fo (more content not included)... [facility] ANES POSTPROC EVALon 021 ANES POSTPROC EVAL HNO ID: [id number] Author: Chris Roblero MD Service: Anesthesiology Author Type: Anesthesiologist Type: Anesthesia Postprocedure Evaluation Filed: 05/09/2021 8:10 AM Note Text: POST ANESTHESIA EVALUATION NOTE : 2000 Procedure Summary Date: 05/08/21 Room / Location: Anesthesia Start: 1849 Anesthesia Stop: 2343 Procedure: LABOR ANALGESIA Diagnosis: Scheduled Providers: Responsible Provider: Edwar Shaw DO Anesthesia Type: epidural ASA Status: 2 Anesthesia Type: epidural Last vitals BP 142/93 Pulse 85 Temp 36.9 ?C (98.4 ?F) (Oral) Resp 16 Ht 167.6 cm (5' 6") Wt 58.1 kg (128 lb) LMP 09/26/2020 (Exact Date) SpO2 98% Unknown BMI 20.66 kg/m? Angel Gutierrez A Barbara Feliciano [[id number]] Baby Delivery: 05/08/2021 2336 Mandeep Gutierrez [[id number]] Baby Delivery: 05/08/2021 2344 Post Anesthesia Patient Status Neurological Status: aware and responsive. Pulmonary Status: breathing comfortably on room air Airway Control: returned to baseline unsupported. Cardiovascular Status: stable. Pain Management: clinically adequate Postoperative Hydration: acceptable. Intraoperative Events: no significant anesthesia events Recommendation: continue current plan of care. Anesthesia Observations No Documentation SIGNATURE: Chris Roblero MD PATIENT NAME: Barbara Gutierrez DATE: May 09, 2021 TIME: 8:10 AM CSN: [id number] Normal [facility] Blood Gases,Cord,Art (For [facility])on 05-09-2021 Base Deficit 1.4 mmol/L Low 4.4-8.3 [facility] Comment on above: Performed By: #### G CCT #### [address] [place] [id number] HCO3 (Bld) [Moles/Vol] 27 mmol/L Normal 17-27 [facility] Comment on above: Performed By: #### G CCT #### [address] [place] [phone] pCO2 62 mm Hg Normal 32-66 [facility] Comment on above: Performed By: #### G CCT #### [address] [place] [phone] pH (Bld) 7.26 [pH] Normal 7.18-7.38 [facility] Comment on above: Performed By: #### G CCT #### [address] [place] [phone] Base Deficit 2.3 mmol/L Low 4.4-8.3 [facility] Comment on above: Performed By: #### G CCT #### [address] [address] [phone] [place] [address] [place] [phone] HCO3 (Bld) [Moles/Vol] 25 mmol/L Normal 17-27 [facility] Comment on above: Performed By: #### G CCT #### [place] [phone] [place] [address] [place] [phone] pCO2 55 mm Hg Normal 32-66 [facility] Comment on above: Performed By: #### G CCT #### [place] [phone] [place] [address] [address] [place] [phone] pH (Bld) 7.28 [pH] Normal 7.18-7.38 [facility] Comment on above: Performed By: #### G CCT #### [place] [phone] [place] [address] [place] [phone] Blood Gases,Cord,Venon 05-09 Base Excess Negative Normal [facility] Comment on above: Performed By: #### G CCT #### [place] [phone] [facility] [address] [place] [phone] HCO3 (Bld) [Moles/Vol] 25 mmol/L Normal 15-25 [facility] Comment on above: Performed By: #### G CCT #### [place] [phone] [facility] [address] [place] [phone] Oxygen (Bld) [Partial pressure] mm[Hg] High 5.5-30.5 [facility] Comment on above: Performed By: #### G CCT #### [address] [place] [phone] pCO2 47 mm Hg Normal 27-49 [facility] Comment on above: Performed By: #### G CCT #### [address] [place], [place] [phone] pH (Bld) 7.34 [pH] Normal 7.20-7.40 [facility] Comment on above: Performed By: #### G CCT #### [address] [place], [place] [phone] Base Excess 0 mmol/L Normal [facility] Comment on above: Performed By: #### G CCT #### [address] [place], [place] [phone] HCO3 (Bld) [Moles/Vol] 26 mmol/L High 15-25 [facility] Comment on above: Performed By: #### G CCT #### [address] [place] [phone] Oxygen (Bld) [Partial pressure] mm[Hg] High 5.5-30.5 [facility] Comment on above: Performed By: #### G CCT #### [place] [phone] [place] [address] [address] [place] [phone] pCO2 49 mm Hg Normal 27-49 [facility] Comment on above: Performed By: #### G CCT #### [facility] [address] [place] [phone] [place] [phone] pH (Bld) 7.34 [pH] Normal 7.20-7.40 [facility] Comment on above: Performed By: #### G CCT #### [facility] [address] [place] [phone] [place] [address] CONSULTon 05-09-2021 CONSULT HNO ID: [id number] Author: Rosalind Hurley MD Service: Neonatology Author Type: Physician Type: Consults Filed: 05/08/2021 11:48 PM Note Text: NEONATOLOGY CONSULT SERVICE DATE: 05/08/2021 Admission Date: 05/02/2021 SERVICE TIME: 12 pm Date of : 2000 Age: [age] year old Sex: female Primary Care Physician: Melissa Cabezas MD Consulting Crude Tester: Rosalind Hurley MD Subjective Consultation for this evaluation was requested by Dr. VASQUEZ. Reason for consultation: 32 weeks of with PPROM and induction Recommendations will be communicated back to the requesting physician by way of shared medical record or letter. Objective MATERNAL HISTORY: Mother is a 18 year old female, , who is at 32w0d with an ABRAHAM of 07/03/2021, by Last Menstrual Period dating method. LMP: Patient's last menstrual period was 09/26/2020 (exact date). Maternal Hospital Problems: ACTIVE PROBLEM LIST High Risk Teen , Antepartum History of Marijuana Use History of Depression Family History of Russel's Disease Delivery, Delivered History of Delivery, Currently History of Herpes Genitalis Nausea/Vomiting in Dichorionic Diamniotic Twin in Second Trimester Cervical Insufficiency During in Second Trimester, Antepartum Threatened Labor, Second Trimester Premature Rupture of Membranes Maternal Meds: No current facility-administered medications on file prior to encounter. Current Outpatient Medications on File Prior to Encounter Medication Sig - progesterone micronized (PROMETRIUM) 200 mg capsule Take 1 capsule by mouth once daily. - valACYclovir (VALTREX) 1 gram Take 1 tablet by mouth once daily. - Dobnhobw-Qc-Ldl-Fe-FA tab Take 1 tablet by mouth once daily. - omeprazole (PRILOSEC) 20 mg capsule Take 1 capsule by mouth once daily. Current Facility-Administered Medications Medication Dose Route Frequency - valACYclovir 500 mg tab(s) (VALTREX) 500 mg ORAL BID - lactated ringers iv infusion 125 mL/hr INTRAVENOUS CONTINUOUS - oxytocin 10 Units bolus from bag (PITOCIN) 10 Units INTRAVENOUS ONE TIME - oxytocin 30 unit in LR 500 mL iv infusion () (PITOCIN) 2.86 Units/hr INTRAVENOUS ONE TIME - oxytocin 10 Units injection (PITOCIN) 10 Units INTRAMUSCULAR PRN - acetaminophen 1,000 mg tab(s) (TYLENOL) 1,000 mg ORAL Pre-Op PRN - sodium citrate-citric acid 500-334 mg/5 mL 30 mL oral liquid (BICITRA) 30 mL ORAL Pre-Op PRN - metoclopramide HCl 10 mg injection (REGLAN) 10 mg INTRAVENOUS Pre-Op PRN - sodium chloride 0.9 % (flush) 3-5 mL (BD POSIFLUSH) 3-5 mL INTRAVENOUS q 12 H - ceFAZolin iv piggyback 2 g in D5W (iso-osmotic) 100 mL (ANCEF) 2 g INTRAVENOUS Pre-Op PRN - azithromycin 500 mg in D5W 250 mL Vial-Mate (ZITHROMAX) 500 mg INTRAVENOUS Pre-Op PRN - oxytocin 30 unit in LR 500 mL iv infusion (INDUCTION/AUGMENTATI ON) (PITOCIN) 0-36 ramu-units/min INTRAVENOUS CONTINUOUS complications: Di-Di twins, PPROM at 31 weeks The following was discussed with mother GENERAL: Neonatology presence and role at delivery: Yes Possible need for resuscitation: Yes DNR status: Full resuscitation requested Need for admission to NICU: Yes Offered tour of NICU: No Discharge criteria: Yes Survival odds/morbidity AND mortality: Yes RESPIRATORY Risk of RDS/breathing problems: Yes Possible need for respiratory support: Yes CARDIOVASCULAR Discussed Hypotension, potential medical treatment: No Other (e.g. congenital heart disease): N/A NEUROLOGIC Risk of IVH/Neuro developmental delays: No Discussed need for evaluation by [employer] for ROP: No Discussed risk for hearing deficit: Yes FEN Mother?s Preference: Breast: Yes. Benefits of breast milk: Yes Bottle: Yes Need for supplemental nutrition and/or IVFs: Yes INFECTION Risk factors for infection- congenital and nosocomial: Yes Need to start antibiotics: Yes HEME Possible need for blood transfusion: No. Verbal consent obtained: N/A ACCESS Possible need for UAC/UVC/PICC: Yes. Verbal consent obtained: Yes MISC. Name if Pelletizer Operator, if known: Unknown, please contact patient's primary care physician Possible need for transfer to outside hospital: No Possible need for subspecialty evaluation: No Additional discussion: N/A Impression/Recommenda tions Assessment: 32 weeks with PPROM x 1 week and Lety twins being induced. Received DMZ and BMZ x 2 and mag with latency antibiotics. Plan: Agree with OB plan, NICU present at delivery. Physician [id number] total time, including discussion: 40 minutes, more than 50 % of time devoted to coordination of care and/or counseling. SIGNATURE: Rosalind Hurley MD PATIENT NAME: Barbara Gutierrez DATE: May 08, 2021 TIME: 11:39 PM [facility] LD NOTEon 05-09-2021 LD NOTE HNO ID: [id number] Author: Abby Matt DO Service: Obstetrics Author Type: Physician Type: LANDD Delivery Note Filed: 05/11/2021 2:06 PM Note Text: OBSTETRICS DELIVERY SUMMARY - VAGINAL DELIVERY Gestational Age at Delivery: 32w1d Service Date: 05/08/2021 Labor Events Rupture Date: Angel Gutierrez Barbara Feliciano [[id number]] 05/01/2021 Mandeep Gutierrez Barbara Feliciano [[id number]] 05/01/2021 Rupture Time: Angel Gutierrez Barbara Feliciano [[id number]] 11:45 PM Mandeep Gutierrez Barbara Feliciano [[id number]] 11:45 PM Total Time from ROM to Delivery: 167h 59m Rupture Type: Angel Gutierrez Barbara Feliciano [[id number]] PPROM Mandeep Gutierrez Barbara Feliciano [[id number]] PPROM Total Hours from ROM to Onset of Labor 162.25 hours Fluid Color: Angel Gutierrez Barbara Feliciano [[id number]] Clear Matt Mandeep Edouard Barbara Feliciano [[id number]] Clear Fluid Odor: Angel Gutierrez Barbara Feliciano [[id number]] No Odor MattMandeep R [[id number]] No Odor Induction: Angel Gutierrez R [[id number]] No Mandeep Gutierrez R [[id number]] No Augmentation: Angel Gutierrez R [[id number]] Oxytocin Mandeep Gutierrez R [[id number]] Oxytocin Reason for Augmentation: Angel Gutierrez R [[id number]] Ineffective Contraction Pattern Mandeep Gutierrez R [[id number]] Ineffective Contraction Pattern Angel Gutierrez R [[id number]] Episiotomy/Laceration : Episiotomy: None Lacerations: Periurethral Periurethral Laceration: Left Periurethral Repair Completed: No Date and Time of : Date of : 05/08/21 Time of : 2336 Delivery Information: Primary Reason for Delivery : Ruptured Membranes Additional Clinicial Indicator(s) for delivery: Labor, Multifetal Gestation Delivery type: Vaginal, Spontaneous Intrapartum Complications: Abruptio Placenta Delivery between 24 - 34 weeks?: Yes Has the patient completed their course of steroids?: Full Course Presentation: Vertex Shoulder Dystocia Present: No Vacuum Used: No Forceps Used: No Presentation AND Position Presentation: Vertex Position: NAEL Cord: Complications: None Delayed Cord Clampin-60 sec Placenta: Delivered: 05/08/2021 11:50 PM Removal: Manual Removal Appearance: Adherent Anesthesia: Method: Epidural Measurements, Apgars: One Minute : 8 Five Minute : 9 Code Henagar Called: Yes Type of Code Hen[place] Team Needed: Planned Resuscitation Needed: No, see Peds Delivery Attendance Note/Progress Note Mandeep Gutierrez [[id number]] Episiotomy/Laceration : Episiotomy: None Lacerations: Periurethral Periurethral Laceration: Left Periurethral Repair Completed: No Date and Time of : Date of : 05/08/21 Time of : 2344 Delivery Information: Primary Reason for Delivery : Ruptured Membranes Additional Clinicial Indicator(s) for delivery: Labor, Multifetal Gestation Delivery type: Vaginal, Spontaneous Intrapartum Complications: Abruptio Placenta Delivery between 24 - 34 weeks?: Yes Has the patient completed their course of steroids?: Full Course Presentation: Vertex Shoulder Dystocia Present: No Vacuum Used: No Forceps Used: No Presentation AND Position Presentation: Vertex Position: OP Cord: Complications: None Delayed Cord Clampin-60 sec Placenta: Delivered: 05/08/2021 11:50 PM Removal: Manual Removal Appearance: Adherent Anesthesia: Method: Epidural Measurements, Apgars: One Minute : 8 Five Minute : 9 Code Henagar Called: Yes Type of Code Henagar Team Needed: Planned Resuscitation Needed: No I/O Blood Loss per time range on right. 05/08/21 1800 - 05/09/21 0035 Calculated Blood Loss (mL) Hospital Encounter 398 Total 398 cc 18F delivered at 32w1d after presenting with PPROM on 05/01 (31wga) in the setting of dichorionic diamniotic twin . Patient received betamethasone for lung maturity 05/02-05/03, magnesium for neuroprotection 05/02, and latency antibiotics ending 05/08. At 32w0d, patient was noted to be 4 cm dilated. She spontaneously progressed to 8 cm without augmentation. Epidural was placed. Pitocin was initiated given ineffective contraction pattern and patient progressed to complete. She was moved the OR for twin delivery. A delivered spontaneously in the NAEL position over an intact perineum. A nuchal cord was checked and none noted. The anterior shoulder delivered with downward traction and the posterior shoulder followed. Delayed cord clamping ensued and after 30 seconds passed the cord was clamped x2 and cut. The infant was passed to the awaiting neonatology staff. Bedside ultrasound was performed by Dr. Burton, [facility]COMES [facility]IAISON staff, and twin B was confirmed to be in cephalic presentation. The head was well engaged and amniotomy was performed. Upon amniotomy, copious blood-tinged fluid was noted. The head delivered spontaneously in a direct OP position over an intact perineum. A nuchal cord was checked and none noted. The anterior shou (more content not included)... Normal [facility] SURGICAL PATHOLOGYon 021 SURGICAL PATHOLOGY Specimen originated from [facility] Specimen #: [id number] Submitting Physician: ABBY MATT D.O. FINAL DIAGNOSIS Twin placenta, 32 weeks gestation, vaginal delivery: - Dichorionic diamniotic twin placenta with separate discs, combined disc weight 592 g, appropriate for gestational age Twin 1 (1 cord clamp) - Hypercoiled umbilical cord - Disc weight 299 g - Mildly accelerated villous maturation for age suggestive of maternal vascular malperfusion - Changes of intrauterine inflammation/infectio n -- Minimal umbilical phlebitis -- Moderate acute chorionitis of extraplacental membranes Twin 2 (2 cord clamps) - Disc weight 293 g - Changes of maternal vascular malperfusion -- Mildly accelerated villous maturation for age -- Single remote infarct - Laminar decidual necrosis Pricila Lux M.D. (Electronic Signature) ____ SPECIMEN SUBMITTED A: TWIN PLACENTA MICROSCOPIC DESCRIPTION Umbilical cord: 3 vesselsboth twins; minimal umbilical phlebitis ( inflammatory response grade 1, stage I)twin 1 membranes: Moderate acute chorionitis (maternal inflammatory response grade 1, stage I)twin 1; reactive amnion with edema and occasional pigmented macrophage in amniontwin 2; chorionic trophoblast microcyststwin 2 Membranous decidua: Moderate acute inflammation with focal leukocytoclastic necrosistwin 1; laminar decidual necrosistwin 2 Chorionic plate: No abnormalitiesboth twins Chorionic plate vasculature: No abnormalitiesboth twins Stem villi: No abnormalitiesboth twins Terminal villi: Mildly accelerated villous maturation for age (small caliber, mild fibrinoid necrosis of individual villi and increased syncytial knotting)both twins; single remote infarct (A13)twin 2; nucleated red blood cells #1/10 high-power hernadez for twin 1 and 2/10 high-power hernadez for twin 2 Intervillous space: No abnormalitiesboth twins Decidua basalis: No abnormalities, maternal vessels appropriately adapted for identified in basal plate CLINICAL DATA ; PREMATURE SEPARATION; ABRUPTION; EGA: 32W0D VAGINAL @2350 05/08/2021 GROSS DESCRIPTION A. The specimen is received in formalin labeled with "twin placenta" are two placental discs focally attached by the placental membranes. The cords are not designated. The one has a single cord clamp present designated Twin 1. The second has two cord clamps present designated Twin 2. It consists of a single placental disc with attached umbilical cords and membranes. Twin 1's umbilical cord is espinoza-white, measures 32 cm in length by 1.2 cm in maximum diameter. It shows increased coiling (11 coils) and inserts eccentrically. It contains 3 vessels on cut section. The translucent glistening membranes insert normally 1000% circumference. The area of membrane rupture cannot be determined due to the membranes being excessively torn. The oval trimmed placental disc weighs 299 grams and measures 14.9 x 12.5 x 2.6 cm. The surface is blue-purple with normal dispersion of chorionic plate vessels. The maternal surface is disrupted. No hemorrhagic material is grossly appreciated on the maternal surface. Serial sectioning through placental disc at 1 cm intervals reveals spongy dark red parenchyma with no grossly identifiable lesions. Twin 2's umbilical cord is espinoza-white umbilical cord measures 24 cm in length by 1.1 cm in maximum diameter. It shows normal coiling (3 coils) and inserts eccentrically. It contains 3 vessels on cut section. The translucent glistening membranes attach normally 100% of circumference. The area of membrane rupture could not be determined due to the membranes being excessively torn. The oval trimmed placental disc weighs 293 grams and measures 17.5 x 12.4 x 2 cm. The surface is blue-purple with normal dispersion of chorionic plate vessels. The maternal surface is disrupted. No adherent hemorrhagic material is identified on the maternal surface. Serial sectioning through placental disc at 1 cm intervals reveals spongy dark red parenchyma with a white fibrotic lesion which measures 1.6 cm in greatest dimension, located 2.6 cm from the placental disc edge, extends the maternal surface and comprises less than 1% of the placental disc. Clerical Clerk sections are submitted as follows: A1 Twin 1 umbilical cord, end and membrane roll; A2 Twin 1 umbilical cord, placental end and chorionic plate section near cord insertion; A3 Twin 1 central placenta, full thickness section; A4 Twin 1 placenta, full thickness section; A5 Twin 1 maternal surface wedge section; A6 Twin 1 maternal surface wedge sections adjacent to disrupted maternal surface; A7 Twin 2 umbilical cord, end, and membrane roll; A8 Twin 2 umbilical cord, plac (more content not included)... 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 Tracheostomy tube not present Mallampati: I. TM distance: >3 FB. Neck ROM: full ROM without neurological symptoms. Mouth opening: adequate. Short neck: no. Thick neck: no DENTAL Dental findings: broken tooth. Additional exam findings: yes. CARDIOVASCULAR Normal cardiovascular observations. PULMONARY Normal pulmonary observations. ABDOMINAL Normal abdominal observations. II - ANESTHESIA PLAN ASA Score: 2 Anesthetic Plan: epidural The patient is not a current smoker. NPO Status: inadequate (05-07-21 1800 solids, currently on clera liquid diet) Monitoring plan: standard ASA. Postoperative analgesic plan: multimodal analgesia, epidural and per surgical service. Anesthetic Risks, Benefits, Alternatives, Personnel Discussed. Consent obtained from: patient.Patient / Surrogate agrees to blood products: Yes DNR status not reviewed with patient and/or family prior to surgery. Significant changes in the patient condition since the History and Physical, not otherwise documented in primary service progress note: no. Potential Anesthesia issues that may suggest increased risk of complications or contraindication to planned procedure: none. EPIC CHART REVIEW: ACTIVE PROBLEM LIST High Risk Teen , Antepartum History of Marijuana Use History of Depression Family History of [place]'s Disease Delivery, Delivered History of Delivery, Currently History of Herpes Genitalis Nausea/Vomiting in Dichorionic Diamniotic Twin in Second Trimester Cervical Insufficiency During in Second Trimester, Antepartum Threatened Labor, Second Trimester Premature Rupture of Membranes PAST MEDICAL HISTORY Diagnosis Date - Anemia during in second trimester 05/18/2019 - Depression - GERD (gastroesophageal reflux disease) - H/O seasonal allergies - Herpes simplex virus (HSV) infection - IBS (irritable bowel syndrome) PAST SURGICAL HISTORY Procedure Laterality Date - NONE FAMILY HISTORY Problem Relation Age of Onset - Hypertension Mother - other (insomnia) Mother - other (fibromyalgia) Mother - other (IBS) Mother - Heart Attack Father - Depression Sister - No Known Problems Brother - Diabetes Maternal Grandmother - Hypertension Maternal Grandmother - other ([place]'s Disease) Maternal Grandmother - Cancer Maternal Grandfather Lung - Hypertension Maternal Grandfather - Alcohol/Drug Paternal Grandmother - Alcohol/Drug Paternal Grandfather - other (acid reflux) Son Social History Tobacco Use - Smoking status: Former Smoker Years: 0.50 Types: Cigarettes Quit date: 01/03/2019 Years since quittin.3 - Smokeless tobacco: Former User Types: Chew Quit date: 01/31/2019 Substance Use Topics - Alcohol use: Never - Drug use: Not Currently Types: Marijuana (Not in a hospital admission) Inpatient medications reviewed in [facility] I have interviewed and examined the patient. I have reviewed the medical record and/or the pre-anesthesia evaluation, pertinent labs, and test results. This contains updated information obtained within 48 hours of Surgery/Procedure. 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 Tracheostomy tube not present Mallampati: I. TM distance: >3 FB. Neck ROM: full ROM without neurological symptoms. Mouth opening: adequate. Short neck: no. Thick neck: no DENTAL Dental findings: broken tooth. Additional exam findings: yes. CARDIOVASCULAR Normal cardiovascular observations. PULMONARY Normal pulmonary observations. ABDOMINAL Normal abdominal observations. II - ANESTHESIA PLAN ASA Score: 2 Anesthetic Plan: epidural The patient is not a current smoker. NPO Status: inadequate (11--21 1800 solids, currently on clera liquid diet) Monitoring plan: standard ASA. Postoperative analgesic plan: multimodal analgesia, epidural and per surgical service. Anesthetic Risks, Benefits, Alternatives, Personnel Discussed. Consent obtained from: patient.Patient / Surrogate agrees to blood products: Yes DNR status not reviewed with patient and/or family prior to surgery. Significant changes in the patient condition since the History and Physical, not otherwise documented in primary service progress note: no. Potential Anesthesia issues that may suggest increased risk of complications or contraindication to planned procedure: none. EPIC CHART REVIEW: ACTIVE PROBLEM LIST High Risk Teen , Antepartum History of Marijuana Use History of Depression Family History of Russ[place]'s Disease Delivery, Delivered History of Delivery, Currently History of Herpes Genitalis Nausea/Vomiting in Dichorionic Diamniotic Twin in Second Trimester Cervical Insufficiency During in Second Trimester, Antepartum Threatened Labor, Second Trimester Premature Rupture of Membranes PAST MEDICAL HISTORY Diagnosis Date - Anemia during in second trimester 05/18/2019 - Depression - GERD (gastroesophageal reflux disease) - H/O seasonal allergies - Herpes simplex virus (HSV) infection - IBS (irritable bowel syndrome) PAST SURGICAL HISTORY Procedure Laterality Date - NONE FAMILY HISTORY Problem Relation Age of Onset - Hypertension Mother - other (insomnia) Mother - other (fibromyalgia) Mother - other (IBS) Mother - Heart Attack Father - Depression Sister - No Known Problems Brother - Diabetes Maternal Grandmother - Hypertension Maternal Grandmother - other (Russel's Disease) Maternal Grandmother - Cancer Maternal Grandfather Lung - Hypertension Maternal Grandfather - Alcohol/Drug Paternal Grandmother - Alcohol/Drug Paternal Grandfather - other (acid reflux) Son Social History Tobacco Use - Smoking status: Former Smoker Years: 0.50 Types: Cigarettes Quit date: 01/03/2019 Years since quittin.3 - Smokeless tobacco: Former User Types: Chew Quit date: 01/31/2019 Substance Use Topics - Alcohol use: Never - Drug use: Not Currently Types: Marijuana promethazine (PHENERGAN) 12.5 mg tablet, Take 1-2 tablets by mouth every 6 hours as needed., Disp: 30 tablet, Rfl: 0 progesterone micronized (PROMETRIUM) 200 mg capsule, Take 1 capsule by mouth once daily., Disp: 60 capsule, Rfl: 3 valACYclovir (VALTREX) 1 gram, Take 1 tablet by mouth once daily., Disp: 30 tablet, Rfl: 5 Izrmejki-Oj-Euu-Fe-FA tab, Take 1 tablet by mouth once daily., Disp: 30 tablet, Rfl: 11 omeprazole (PRILOSEC) 20 mg capsule, Take 1 capsule by mouth once daily., Disp: 30 capsule, Rfl: 2 Inpatient medications reviewed in EPIC I have interviewed and examined the patient. I have reviewed the medical record and/or the pre-anesthesia evaluation, pertinent labs, and test results. This contains updated information obtained within 48 hours of Surgery/Procedure. SIGNATURE: Sharmila Mckoy APRN.FLOORHAND PATIENT NAME: Barbara Gutierrez DATE: May 08, 2021 TIME: 1:10 PM : 2000 Normal [facility] Type and Scr,Prenatlon 05-08 ABO/RH(D) Positive Normal [facility] Comment on above: Performed By: #### T SPN #### [address] Vag Pathogens DNAon 05-08-20 Karen sp DNA Probe Negative Normal Negativ e for Karen species by DNA [facility] Comment on above: Performed By: #### U RCUL #### [address] [facility] [address] [place] [phone] Elvis vag DNA Probe Negative Normal Negative for Gardnerella vaginalis by DNA Probe [facility] Comment on above: Performed By: #### U RCUL #### [place] [phone] [facility] [address] [place] [address] Trich vag DNA Probe Negative Normal Negative for Trichomonas vaginalis by DNA Probe [facility] Comment on above: Performed By: #### U RCUL #### [place] [phone] [place] [address] [place] [phone] CBCon 05-07-2021 Absolute nRBC <0.01 Normal <0.01 [facility] Comment on above: Performed By: #### G CCT #### [place] [phone] [place], [place] [phone] Erythrocyte distribution width (RBC) [Ratio] 12.6 % Normal 11.5-15.0 [facility] Comment on above: Performed By: #### G CCT #### [place] [phone] [place] [phone] Hematocrit (Bld) [Volume fraction] 35.7 % Low 36.0-46.0 [facility] Comment on above: Performed By: #### G CCT #### [place] [phone] [place] [phone] Hemoglobin (Bld) [Mass/Vol] 12.1 g/dL Normal 11.5-15.5 [facility] Comment on above: Performed By: #### G CCT #### [place] [phone] [place] [address] [place] [phone] MCH 32.5 pG Normal 26.0-34.0 [facility] Comment on above: Performed By: #### G CCT #### [place] [phone] [place] [address] [place] [phone] MCHC (RBC) [Mass/Vol] 33.9 g/dL Normal 30.5-36.0 [facility] Comment on above: Performed By: #### G CCT #### [place] [phone] [place] [address] [address] [place] [address] MCV (RBC) [Entitic vol] 96.0 fL Normal 80.0-100.0 F [facility] Comment on above: Performed By: #### G CCT #### [place] [phone] [place] [address] [place] [phone] Platelet mean volume (Bld) [Entitic vol] 10.5 fL Normal 9.0-12.7 [facility] Comment on above: Performed By: #### G CCT #### [place] [phone] [place] [address] [place] [address] Platelets (Bld) [#/Vol] 220 10*3/uL Normal 150-400 [facility] Comment on above: Performed By: #### G CCT #### [place] [phone] [facility] [address] [place], [place] [phone] RBC (Bld) [#/Vol] 3.72 10*6/uL Low 3.90-5.20 [facility] Comment on above: Performed By: #### G CCT #### [place] [phone] [facility] [address] [place] [address] WBC (Bld) [#/Vol] 13.27 10*3/uL High 3.70-11.00 [facility] Comment on above: Performed By: #### G CCT #### [place] [phone] [place] [address] [place], [place] [phone] Urinalysison 05-07-2021 Bacteria Rare Critically abnormal Negative [facility] Comment on above: Performed By: #### U RCUL #### [place] [id number] [phone] Bilirubin, Urine Negative Normal Negative [facility] Comment on above: Performed By: #### U RCUL #### [place] [phone] Clarity (U) Clear Normal Clear [facility] Comment on above: Performed By: #### U RCUL #### [place] [address] [place] [phone] Color (U) Yellow Critically abnormal Yellow [facility] Comment on above: Performed By: #### U RCUL #### [place] [phone] Comments SEE COMMENT Normal [facility] Comment on above: Result Comment: Micr oscopic Examination Performed Performed By: #### U RCUL #### [place] [phone] [place] [address] [place], [place] [phone] Epithelial cells LM Ql (Urine sed) SEE COMMENT Critically abnormal Negative [facility] Comment on above: Result Comment: Rare Squamous Epithelial Cells Performed By: #### U RCUL #### [place] [phone] [place] [phone] Glucose Ql (U) Negative Normal Negative [facility] Comment on above: Performed By: #### U RCUL #### [id number] [place] [address] [phone] [place] [address] [place], [place] [phone] Hemoglobin/Blood,Ur Negative Normal Negative [facility] Comment on above: Performed By: #### U RCUL #### [address] [place], [place] [phone] Ketones Ql (U) Negative Normal Negative [facility] Comment on above: Performed By: #### U RCUL #### [place] [phone] [place] [phone] Leukest Negative Normal Negative [facility] Comment on above: Performed By: #### U RCUL #### [place] [phone] [place] [address] [place] [phone] Mucus Ql (Urine sed) Present [facility] Comment on above: Performed By: #### U RCUL #### [place] [phone] [place] [address] [place] [phone] Nitrite Ql (U) Negative Normal [facility] Comment on above: Performed By: #### U RCUL #### [address] [place] [phone] pH (U) 6.5 [pH] Normal 5.0-8.0 [facility] Comment on above: Performed By: #### U RCUL #### [place] [id number] [phone] Protein, Urine Trace Critically abnormal Negative [facility] Comment on above: Performed By: #### U RCUL #### [place] [phone] RBC (U) [#/Vol] Negative Normal Negative [facility] Comment on above: Performed By: #### U RCUL #### [place] [address] [address] [place], Ur 1.021 Normal 1.005-1.030 [facility] Comment on above: Performed By: #### U RCUL #### [place] [phone] Urobilinogen (U) [Mass/Vol] Negative Normal Negative [facility] Comment on above: Performed By: #### U RCUL #### [place] [phone] WBC 0-5 Critically abnormal Negative [facility] Comment on above: Performed By: #### U RCUL #### [place] [phone] Urine Cultureon 05-07-2021 Bacteria identified Cx Nom (U) Sp. Request/Comment: - Specimen received in preservative Culture Result - No growth (<1,000 CFU/ml) Normal [facility] Comment on above: Performed By: #### U RCUL #### [place] [phone] [place], [place] [address] [place], [place] [address] Type and Scr,Prenatlon 05-05 ABO/RH(D) Positive Normal [facility] Comment on above: Performed By: #### T SPN #### [facility] [address] [place] [address] CASE MGT INIT ROBBIEon 2020 CASE MGT INIT ASSES HNO ID: [id number] Author: ARYAN Soriano Service: ? Author Type: Auctioneer Art Type: Care Mgt Initial Assessment Filed: 05/03/2021 9:37 AM Note Text: CARE MANAGEMENT: ASSESSMENT AND DISCHARGE PLAN SERVICE DATE: May 02, 2021 SERVICE TIME: 4:01 PM PRIMARY CARE PHYSICIAN: Melissa Cabezas MD ADMISSION STATUS: Inpatient Needs Prior to Discharge: Other: See Comment (Pt to remain admitted until delivery of twins) MEDICAL: [employer] MEDICAID Patient/Representativ e Stated Goals: Other Goal Health Insurance: [facility] [employer] Issues Impacting Discharge Plan: None Last Discharge Date: 03/17/21 Is this Within the Past 30 days? Last discharge within 30 days: No Advance Directive: Health LiteracyHow often do you need to have someone help you when you read instructions, pamphlets, or other written material from your doctor or pharmacy? : 2 - Rarely How confident are you filling out medical forms by yourself?: 2 - Quite a bit If Patient scores > 3 on either question, the following interventions were put into place:: Patient did not score > 3 on either question. Baseline Mental Status Prior to this Illness what was the patient's Baseline Mental Status?: Alert AND Oriented Prior to this illness, has anyone described the patient having any of the following behaviors?: Not Applicable Relationship of the informant to the patient:: Self Functional Status: Independent Does Patient Currently Receive Any Community Services or Home Care?: Counseling Equipment Prior to Admission: None Has the Patient Been in a Correction Facility in the Past 30 days?: No SOCIAL: Living Arrangements: Family Member Home Lives With: Mother Financial Resources: Employed Primary Contact: Extended Emergency Contact Information Primary Emergency Contact: Gisela Gutierrez Address: [address] [place] [address] Relation: Mother Secondary Emergency Contact: Janelle Lanier Relation: Grandparent Supportive Patient Contact:: Yes Contact Resources: Family Family Name/Phone: Mother: Gisela Gutierrez Caregiver AssessmentCaregiver is ready, willing and able to meet the patient's needs as recommended by the inter-professional team:: No Caregiver needed Does the patient have an acute stroke diagnosis, or has the patient had a stroke during this admission?: No Patient's transition needs and plan for meeting these needs: home Patient's perception of need for this admission: "Her bag of water broke" Medication Adherance I am convinced of the importance of my prescription medication: 0 - Agree Completely I worry that my prescription medication will do more harm than good to me : 0 - Disagree Completely I feel financially burdened by my slo-xv-cbrmoy expenses for my prescription medication:: 0 - Disagree Completely Risk Score: 0 Patient is categorized as: Low risk < 2 Are you interested in bedside delivery of your medications? No Is Patient Psychosocially Complex?: Yes, refer to Social Work ASSESSMENT AND PLAN: Medical Needs: Medical Needs: Other Needs (PROM) Psychosocial Needs: Psychosocial Needs: Other: See Comment;Mental Health Diagnosis (Financial, h/o children's services involvement) Mental Health Information: anxiety, depression FREEDOM OF CHOICE EXPLAINED: Star of Choice Given: No Reason Not Given: No placements necessary POTENTIAL TRANSITION PLANS Home Pt is an 20 year old at 31 weeks EGA with twins, admitted to [facility] for PPROM. Plan is for Pt to remain admitted until labor or to deliver twins at 34 weeks EGA. MARIAH met with Pt at bedside, Pt known to SW from previous admission in March. SW consult ordered today d/t concern re: housing, FOB in fpc, and history of CPS involvement. Discussed the following with Pt: 1) Housing-pt continues to live in a 2 bedroom trailer with her mother and 2 year old son, Sp. Pt has completed her application for public housing and is on the waiting list. She stated she can return to her mother's trailer with twins if needed, but mother does want her to move out by May 07. Pt has information on shelters in her area if needed prior to moving in to public housing. Pt also noted conflict with manager client service of [employer] who is trying to force Pt out of her mother's home. 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 She has limited income, particularly now with being in the hospital. Pt has some provisions for twins but still needs two car seats and a bassinet. Pt has Medicaid insurance-informed that [facility] won't cover the cost of her iron supplements because she can purchase these over the counter. Pt has food stamps, but currently has not received them because of a "mix up" at [facility] with two other cases. She is working to resolve this to have her benefits restored. 3) H/o Children's Servi (more content not included)... Normal [facility] CBC and Differentialon 05-02 Abs Baso <0.03 Normal <0.11 [facility] Comment on above: Performed By: #### G CCT #### [address] [place] [address] Abs Eosin <0.03 Normal <0.46 [facility] Comment on above: Performed By: #### G CCT #### [address] [facility] [address] [place] [address] Abs Cidra 0.28 k/uL Normal <0.87 [facility] Comment on above: Performed By: #### G CCT #### [address] [place] [address] Abs Neut 8.48 k/uL High 1.45-7.50 [facility] Comment on above: Performed By: #### G CCT #### [place] [phone] Absolute nRBC <0.01 Normal <0.01 [facility] Comment on above: Performed By: #### G CCT #### [place] [id number] [place] [address] [place] [address] [address] [place] [phone] Basophils/100 WBC (Bld) 0.2 % Normal [facility] Comment on above: Performed By: #### G CCT #### [address] [place], [place] [phone] DTYPE Auto Diff Normal [facility] Comment on above: Performed By: #### G CCT #### [place] [phone] Eosinophils/100 WBC (Bld) 0.0 % Normal [facility] Comment on above: Performed By: #### G CCT #### [place] [phone] Erythrocyte distribution width (RBC) [Ratio] 12.7 % Normal 11.5-15.0 [facility] Comment on above: Performed By: #### G CCT #### [address] [place], [place] [phone] Hematocrit (Bld) [Volume fraction] 31.1 % Low 36.0-46.0 [facility] Comment on above: Performed By: #### G CCT #### [address] [place], [place] [phone] Hemoglobin (Bld) [Mass/Vol] 10.4 g/dL Low 11.5-15.5 [facility] Comment on above: Performed By: #### G CCT #### [place] [phone] [facility] [address] [place] [phone] Lymphocytes (Bld) [#/Vol] 1.03 10*3/uL Normal 1.00-4.00 [facility] Comment on above: Performed By: #### G CCT #### [place] [phone] [place] [address] [place] [phone] Lymphocytes/100 WBC (Bld) 10.5 % Normal [facility] Comment on above: Performed By: #### G CCT #### [place] [phone] [place] [address] [place] [phone] MCH 32.1 pG Normal 26.0-34.0 [facility] Comment on above: Performed By: #### G CCT #### [place] [phone] [place] [address] [place] [phone] MCHC (RBC) [Mass/Vol] 33.4 g/dL Normal 30.5-36.0 [facility] Comment on above: Performed By: #### G CCT #### [place] [phone] [place] [address] [place] [phone] MCV (RBC) [Entitic vol] 96.0 fL Normal 80.0-100.0 [facility] Comment on above: Performed By: #### G CCT #### [place] [phone] [facility] [address] [place] [phone] Monocytes/100 WBC (Bld) 2.9 % Normal [facility] Comment on above: Performed By: #### G CCT #### [address] [address] [phone] [place] [address] [phone] Neutrophils/100 WBC (Bld) 86.4 % Normal [facility] Comment on above: Performed By: #### G CCT #### [place] [phone] [place] [address] [address] [place] [phone] NRBCs 0.0 /100 WBC Normal 0 [facility] Comment on above: Performed By: #### G CCT #### [place] [phone] [place] [address] [place] [phone] Platelet mean volume (Bld) [Entitic vol] 11.2 fL Normal 9.0-12.7 [facility] Comment on above: Performed By: #### G CCT #### [place] [phone] [place] [address] Laboratories [phone] Platelets (Bld) [#/Vol] 185 10*3/uL Normal 150-400 [facility] Comment on above: Performed By: #### G CCT #### [place] [phone] [place] [address] Laboratories [address] [place] [phone] RBC (Bld) [#/Vol] 3.24 10*6/uL Low 3.90-5.20 [facility] Comment on above: Performed By: #### G CCT #### [address] [address] [phone] [place] [address] Laboratories [address] [place] [phone] WBC (Bld) [#/Vol] 9.81 10*3/uL Normal 3.70-11.00 [facility] Comment on above: Performed By: #### G CCT #### [place] 3[address]16-[address] [place], [place] [phone] Expedited [id number] 05-02-20 SARS-CoV-2 (COVID-19) RNA AQUILINO+probe Ql (Unsp spec) UPPER RESPIRATORY TRACT SWAB Normal [facility] Comment on above: Performed By: #### G CCT #### [place] [address]16-[address] [place], [place] [phone] SARS-CoV-2 (COVID-19) RNA AQUILINO+probe Ql (Unsp spec) Negative for COVID19 (SARS CoV2) by RT-PCR or equivalent method. Normal Negative for COVID19 (SARS CoV2) by RT-PCR or equivalent method. [facility] Comment on above: Result Comment: This test has been authorized by FDA under an Emergency Use Authorization (EUA). Performed By: #### G CCT #### [place] [phone] GC/Chlamydia Amplifon 2020 Chlamydia Amplif Negative Normal [facility] Comment on above: Performed By: #### G CCT #### [place] [phone] [place] [phone] GC Amplification Negative Normal [facility] Comment on above: Performed By: #### G CCT #### [place] [address] [place] [phone] GC/Chlam Amp Source Vaginal Normal [facility] Comment on above: Performed By: #### G CCT #### [place] [phone] [facility] [address] [place], [place] [address] Group B Strep Scrnon 021 Group B Strep Scrn Sp. Request/Comment: - Swab Culture Result - Negative for Streptococcus agalactiae (Group B streptococcus). Normal [facility] Comment on above: Performed By: #### G RPBSC #### [facility] [address] [place] [address] [facility] [address] [place] [address] HISTORY PHYSICALon HISTORY PHYSICAL HNO ID: [id number] Author: Ayala Mcbride MD Service: Obstetrics Author Type: Physician Type: HANDP Filed: 05/02/2021 7:33 AM Note Text: OBSTETRICS HISTORY AND PHYSICAL SERVICE DATE: May 02, 2021 SERVICE TIME: 6:40 AM Subjective Patient's stated reason for arrival: CHIEF COMPLAINT: Rupture of membranes HISTORY OF THE PRESENT ILLNESS: The patient is a 20 year old female, , who is at 31w1d with an ABRAHAM of 07/03/2021, by Last Menstrual Period dating method. Patient is here complaining of SROM 05/01 at 2330p.m of clear fluid. Good movement. Denies vaginal bleeding., Denies contractions.. c/b hx PTL/PTD 28w6d, di/di twin gestation, JANNET 1, hx HSV on suppression without sx, hx depression (no current meds) POST DELIVERY CONTRACEPTION: Discussed post-delivery contraception options. Patient received written information about post-delivery contraception options. Patient does not desire post-delivery contraception. HISTORY REVIEW PAST MEDICAL HISTORY Diagnosis Date - Anemia during in second trimester 05/18/2019 - Depression - GERD (gastroesophageal reflux disease) - H/O seasonal allergies - Herpes simplex virus (HSV) infection - IBS (irritable bowel syndrome) PAST SURGICAL HISTORY Procedure Laterality Date - NONE FAMILY HISTORY Problem Relation Age of Onset - Hypertension Mother - other (insomnia) Mother - other (fibromyalgia) Mother - other (IBS) Mother - Heart Attack Father - Depression Sister - No Known Problems Brother - Diabetes Maternal Grandmother - Hypertension Maternal Grandmother - other ([place]'s Disease) Maternal Grandmother - Cancer Maternal Grandfather Lung - Hypertension Maternal Grandfather - Alcohol/Drug Paternal Grandmother - Alcohol/Drug Paternal Grandfather - other (acid reflux) Son Social History Tobacco Use - Smoking status: Former Smoker Years: 0.50 Types: Cigarettes Quit date: 01/03/2019 Years since quittin.3 - Smokeless tobacco: Former User Types: Chew Quit date: 01/31/2019 Substance Use Topics - Alcohol use: Never - Drug use: Not Currently Types: Marijuana Obstetric History T0 L1 SAB0 TAB0 Ectopic0 Multiple0 Live Births1 Name of Baby 1: Sp Alfred Date: 06/25/19 GA: 28w6d Delivery: Vaginal, Spontaneous Apgar1: Not recorded Apgar5: Not recorded Living: Living Name of Baby 2: Not recorded Date: Not recorded GA: Not recorded Delivery: Not recorded Apgar1: Not recorded Apgar5: Not recorded Living: Not recorded Active Non-Hospital Problems Diagnosis Date Noted - Cervical insufficiency during in second trimester, antepartum 03/15/2021 - Threatened labor, second trimester 03/15/2021 - Dichorionic diamniotic twin in second trimester 02/13/2021 - History of delivery, currently 11/01/2020 Overview Note: 11/01/2020atient is 2 para 1 with a history of a delivery at 28 weeks. It was a precipitous delivery. I did discuss with patient Ashley. I have advised patient to go to the [place] website and view the video and information. I also told her that if she decides to take this medication that she could come into the office for instruction. TKRN - History of herpes genitalis 11/01/2020 Overview Note: 11/01/2020t has a history of genital herpes. Discussed with pt. importance of reporting any outbreaks during should they occur.TKRN - Nausea/vomiting in 11/01/2020 Overview Note: 11/01/2020atient is complaining of nausea in . Denies any vomiting advised patient to call/come in if she is unable to keep any food or fluids down in a 24-hour period. TKRN - delivery, delivered 08/06/2019 - High risk teen , antepartum 02/04/2019 Overview Note: 11/01/2020 Patient is a senior at [employer]. Patient is engaged to the father the baby. Father of the baby graduated 2 years ago.TKRN - History of marijuana use 02/04/2019 Overview Note: 02/04/2019Patient admits to using marijuana twice since she found out she was . FOB admits to "hard drug use in the past" but states he doesn't want to ever use it again. Discussed risks of illicit drug use in and advised patient that we may do random drug screens during and when she presents to the hospital in [facility]. TKRN - History of depression 02/04/2019 Overview Note: Pt has a history of depression diagnosed at age 14. She has been off medication for 2 years. She believes she is doing well off medication. Discussed increased risks of depression during and and importance of reporting the development or worsening of symptoms should they occur.Pt states she last had suicidal thoughts at age 17.Has seen a psychiatrist at [facility]-Dr Maria. . TKRN - Family history of Russel's disease 02/04/2019 Over (more content not included)... [facility] NURSING PROGon 05-02-2021 NURSING PROG HNO ID: [id number] Author: Elena Smith, RN Service: Nursing Author Type: Registered Nurse Type: Nursing Progress Note Filed: 05/02/2021 7:28 AM Note Text: Nursing Progress Note Patient Name: Barbara Gutierrez Patient Location: [id number] Daily Note: 0615- Pt arrived on cart from [facility]. Patient stable. Patient has LR 75cc/hr and magnesium infusing at 2 grams/hr from outside hospital. This note was completed by: Elena Smith [facility] Type and Scr,Prenatblack 05-02 ABO/RH(D) Positive Normal [facility] Comment on above: Performed By: #### T SPN ####[place] [phone] Urinalysis with Microscopico n 05-02-2021 Bilirubin, Urine Negative Normal Negative [facility] Comment on above: Performed By: #### U RCUL #### [address] [place], [place] [phone] Cast SEE COMMENT Critically abnormal 0 [facility] Comment on above: Result Comment: 0-5 Hyaline Cast Performed By: #### U RCUL #### [place] [phone] Clarity (U) Clear Normal Clear [facility] Comment on above: Performed By: #### U RCUL #### [place] 3[address]16-[address] [place] [address] [place], [place] [phone] Color (U) Colorless Critically abnormal Yellow [facility] Comment on above: Performed By: #### U RCUL #### [place] 3[address]16-[address] [place], [place] [phone] Comments SEE COMMENT Normal [facility] Comment on above: Result Comment: Micr oscopic Examination Performed Performed By: #### U RCUL #### [place] [address]-[address] [place] [address] [place], [place] [phone] Epithelial cells LM Ql (Urine sed) SEE COMMENT Critically abnormal Negative [facility] Comment on above: Result Comment: Rare Squamous Epithelial Cells Performed By: #### U RCUL #### [place] [address]16-[address] [place] [address] [place] [phone] Glucose Ql (U) Negative Normal Negative [facility] Comment on above: Performed By: #### U RCUL #### [address] [address] [phone] [place] [address] [place] [phone] Hemoglobin/Blood,Ur Negative Normal Negative [facility] Comment on above: Performed By: #### U RCUL #### [place] [phone] [place], [place] [phone] Ketones Ql (U) 1+ Critically abnormal Negative [facility] Comment on above: Performed By: #### U RCUL #### [place] [phone] [place] [phone] Leukest Negative Normal Negative [facility] Comment on above: Performed By: #### U RCUL #### [place] [phone] [place] [phone] Mucus Ql (Urine sed) Present Normal [facility] Comment on above: Performed By: #### U RCUL #### [place] [phone] [place] [address] [address] [place] [phone] Nitrite Ql (U) Negative Normal Negative [facility] Comment on above: Performed By: #### U RCUL #### [place] [phone] [place] [phone] pH (U) 7.0 [pH] Normal 5.0-8.0 [facility] Comment on above: Performed By: #### U RCUL #### [place] [phone] Protein, Urine Negative Normal Negative [facility] Comment on above: Performed By: #### U RCUL #### [place] [address] RBC Rare Critically abnormal Negative [facility] Comment on above: Performed By: #### U RCUL #### [place] [address] Specific [place], [place] 1.006 Normal 1.005-1.030 [facility] Comment on above: Performed By: #### U RCUL #### [place] [address] Urobilinogen (U) [Mass/Vol] Negative Normal Negative [facility] Comment on above: Performed By: #### U RCUL #### [place] [phone] WBC 0-5 Critically abnormal Negative [facility] Comment on above: Performed By: #### U RCUL #### [place] [address] Urine Cultureon 05-02-2021 Bacteria identified Cx Nom (U) Sp. Request/Comment: - Best Practice Alert: To ensure optimal transport conditions and accurate culture results transfer urine specimens to patel top C and S preservative tube. Culture Result - No growth (<1,000 CFU/ml) Normal [facility] Comment on above: Performed By: #### U RCUL #### [place] [address] Vag Pathogens DNAon 05-02-20 Karen sp DNA Probe Negative Normal Negativ e for Karen species by DNA Probe [facility] Comment on above: Performed By: #### G CCT #### [place] [phone] Elvis vag DNA Probe Negative Normal Negative for Gardnerella vaginalis by DNA Probe [facility] Comment on above: Performed By: #### G CCT #### [place] [address] [place], [place] [phone] Trich vag DNA Probe Negative Normal Negative for Trichomonas vaginalis by DNA Probe [facility] Comment on above: Performed By: #### G CCT #### [place] [address] [place], [place] [phone] CNDSon 03-17-2021 CNDS HNO ID: [id number] Author: Rachelle Zuñiga MD Service: Obstetrics Author Type: Resident Type: Discharge Summary Filed: 03/17/2021 10:24 AM Note Text: Attestation signed by Melanie Cook MD at 03/18/2021 8:51 AM Attending Note Reviewed the discharge summary for this patient being cared for by the OB team and agree with its content and above plan of care unless otherwise indicated. Signature: Melanie Cook MD Date: March 18, 2021 Time: 8:51 AM DISCHARGE SUMMARY OBSTETRICS PATIENT NAME: Barbara Gutierrez ADMISSION DATE: 03/15/2021 DISCHARGE DATE: 03/17/2021 Attending Physician: Melanie Cook MD Code Status: Not on file Treatment Team: Attending Provider: Melanie Cook MD Maternal Obstetric Provider: Nilda Jean Reason for Hospitalization: Intrauterine . Principal Problem: Threatened labor, second trimester POA: Yes Active Problems: High risk teen , antepartum POA: Yes History of marijuana use POA: Yes History of depression POA: Yes History of delivery, currently POA: Yes History of herpes genitalis POA: Yes Dichorionic diamniotic twin in second trimester POA: Yes Cervical insufficiency during in second trimester, antepartum POA: Yes Resolved Problems: * No resolved hospital problems. * PROCEDURES/SURGERY DURING HOSPITALIZATION (if applicable) Hospital Course: 20 year old with a GA of 24w4d admitted for Labor arrested at 2 cm dilation. Received dexamethasone x4 and magnesium for neuroprotection. No further cervical dilation occurred and contractions resolved. testing was reassuring throughout. She was stable for discharge 03/17 with follow up with primary OB and vaginal progesterone. Consulting Teams During Hospitalization: None Patient Condition @ Discharge: Good Discharge Disposition: Home/Self Care Information Provided to Patient: Diet Instructions Resume your pre-hospital diet Specific Concerns for Follow-up Post Discharge: Routine care and di/di twin survelliance. Delivery Plan/Recommendations: Expectant Discharge Medications: Current Discharge Medication List START taking these medications progesterone micronized (PROMETRIUM) 200 mg Take 200 mg by mouth once daily. Qty: 60 capsule Refills: 3 CONTINUE these medications which have NOT CHANGED valACYclovir (VALTREX) 1,000 mg Take 1,000 mg by mouth once daily. Qty: 30 tablet Refills: 5 Yohqeifw-Ms-Mcz-Fe-FA 1 tablet Take 1 tablet by mouth once daily. Qty: 30 tablet Refills: 11 Associated Diagnoses:8 weeks gestation of omeprazole (PriLOSEC) 20 mg Take 20 mg by mouth once daily. Qty: 30 capsule Refills: 2 Comments: MED SYNC PATIENT. WE WILL PUT NEW RX ON HOLD FOR NEXT CYCLE. ALLERGIES Allergen Reactions - Adhesive Tape (Irish* Rash - Latex Rash Future Appointments: Follow Up Appointments Follow-Up Appointment With: Provider When: In: Patient/Parents to call for appointment?: Scheduled Plan of care discussed with: Provider, RN, Patient. SIGNATURE: Rachelle Zuñiga MD DATE: March 17, 2021 TIME: 10:19 AM [facility] CASE MGT INRIAN Emanuel 2020 CASE MGT INRIAN AVALOS HNO ID: [id number] Author: ARYAN Soriano Service: ? Author Type: Auctioneer Art Type: Care Mgt Initial Assessment Filed: 03/16/2021 4:25 PM Note Text: CARE MANAGEMENT: ASSESSMENT AND DISCHARGE PLAN SERVICE DATE: March 16, 2021 SERVICE TIME: 3:58 PM PRIMARY CARE PHYSICIAN: Melissa Cabezas MD ADMISSION STATUS: Observation Needs Prior to Discharge: None MEDICAL: [employer] MEDICAID Patient/Representativ e Stated Goals: Other Goal Health Insurance: [facility] Health Issues Impacting Discharge Plan: None Last Discharge Date: N/A Is this Within the Past 30 days? Last discharge within 30 days: No Advance Directive: Health LiteracyHow often do you need to have someone help you when you read instructions, pamphlets, or other written material from your doctor or pharmacy? : 1 - Never How confident are you filling out medical forms by yourself?: 1 - Extremely If Patient scores > 3 on either question, the following interventions were put into place:: Patient did not score > 3 on either question. Baseline Mental Status Prior to this Illness what was the patient's Baseline Mental Status?: Alert AND Oriented Prior to this illness, has anyone described the patient having any of the following behaviors?: Not Applicable Relationship of the informant to the patient:: Self Functional Status: Independent Does Patient Currently Receive Any Community Services or Home Care?: Help Me Grow Equipment Prior to Admission: None Has the Patient Been in a Correction Facility in the Past 30 days?: No SOCIAL: Living Arrangements: Family Member Home Lives With: Mother Financial Resources: Employed Primary Contact: Extended Emergency Contact Information Primary Emergency Contact: Gisela Gutierrez Address: [address] [place] [id number] [place] [address] Relation: Mother Secondary Emergency Contact: Janelle Lanier Relation: Grandparent Supportive Patient Contact:: Yes Contact Resources: Family Family Name/Phone: Mother: Gisela Gutierrez Caregiver AssessmentCaregiver is ready, willing and able to meet the patient's needs as recommended by the inter-professional team:: No Caregiver needed Does the patient have an acute stroke diagnosis, or has the patient had a stroke during this admission?: No Patient's transition needs and plan for meeting these needs: Home Patient's perception of need for this admission: Pre-term labor Medication Adherance I am convinced of the importance of my prescription medication: 0 - Agree Completely I worry that my prescription medication will do more harm than good to me : 0 - Disagree Completely I feel financially burdened by my [id number] expenses for my prescription medication:: 0 - Disagree Completely Risk Score: 0 Patient is categorized as: Low risk < 2 Are you interested in bedside delivery of your medications? No Is Patient Psychosocially Complex?: Yes, refer to Social Work ASSESSMENT AND PLAN: Medical Needs: Medical Needs: None Psychosocial Needs: Psychosocial Needs: Mental Health Diagnosis;Other: See Comment (teen , h/o marijuana use) Mental Health Information: anxiety and depression FREEDOM OF CHOICE EXPLAINED: Star of Choice Given: No Reason Not Given: No placements necessary POTENTIAL TRANSITION PLANS Home Pt is an 20 year old at 24 weeks EGA with twins admitted to [facility] ER for pre-term labor and transferred to [address] [place] [address] for monitoring since contractions discontinued. SW consult ordered d/t teen , h/o marijuana use and h/o CPS involvement with her 1 1/2 year old son. SW met with Pt at the bedside, explained SW role, Pt agreeable to meeting with SW. Pt reported the following: She is currently living with her mother Gisela and 1 1/2 year old son Sp in [place]. Pt stated they live in a two bedroom trailer and she eventually would like to move out as there will not be enough space for her whole family once the twins are born. Pt is linked with [facility]-she is on the waiting list since January 2021. Pt housing with her mother is stable but has not been in the recent past-Pt stated she was homeless because her mother was "bringing her boyfriend around" and when he would drink "there would be problems" so she and Sp were living in a hotel. Child protective services became involved and placed Sp with Pt's father for one month until Pt re-established housing. Pt's case has been closed since January 25 2021. Pt is concerned about the stability of her housing because her mother's boyfriend "has starting coming back around again" and while he is supposedly not drinking, Pt does not feel safe with him around her son. Pt stated she could go to [place] and live with her father who has a house with a room set up for her. Sp is in the care of Pt's (more content not included)... [facility] CONSULTon 03-16-2021 CONSULT HNO ID: [id number] Author: Melanie Cook MD Service: Obstetrics Author Type: Physician Type: Consults Filed: 03/16/2021 11:00 AM Note Text: OBSTETRICS MATERNAL MEDICINE CONSULT SERVICE DATE: March 16, 2021 SERVICE TIME: 0900 REQUESTING PROVIDER: Dr Ambriz Subjective HISTORY OF THE PRESENT ILLNESS: The patient is a 20 year old female, , who is at 24w3d with an ABRAHAM of 07/03/2021, by Last Menstrual Period dating method. She was sent from OB office for rule out labor with di/di twin , cramping and cervical shortening. Her cervical exam has been stable around 2/60/-3. This morning she reports improvement in cramping sensation. [place] shows no obvious contractions which appear to have spaced. She is receiving magnesium for neuroprotection, as well as dexamethasone for lung maturity. She feels better this morning. She notes frequent movement. She is inquiring about discharge from the hospital. HISTORY REVIEW PAST MEDICAL HISTORY Diagnosis Date - Anemia during in second trimester 05/18/2019 - Depression - GERD (gastroesophageal reflux disease) - H/O seasonal allergies - Herpes simplex virus (HSV) infection - IBS (irritable bowel syndrome) PAST SURGICAL HISTORY Procedure Laterality Date - NONE FAMILY HISTORY Problem Relation Age of Onset - Hypertension Mother - other (insomnia) Mother - other (fibromyalgia) Mother - other (IBS) Mother - Heart Attack Father - Depression Sister - No Known Problems Brother - Diabetes Maternal Grandmother - Hypertension Maternal Grandmother - other ([place]'s Disease) Maternal Grandmother - Cancer Maternal Grandfather Lung - Hypertension Maternal Grandfather - Alcohol/Drug Paternal Grandmother - Alcohol/Drug Paternal Grandfather - other (acid reflux) Son Social History Tobacco Use - Smoking status: Former Smoker Years: 0.50 Types: Cigarettes Quit date: 01/03/2019 Years since quittin.2 - Smokeless tobacco: Former User Types: Chew Quit date: 01/31/2019 Substance Use Topics - Alcohol use: Never - Drug use: Not Currently Types: Marijuana Obstetric History T0 L1 SAB0 TAB0 Ectopic0 Multiple0 Live Births1 Name of Baby 1: Sp Alfred Date: 06/25/19 GA: 28w6d Delivery: Vaginal, Spontaneous Apgar1: Not recorded Apgar5: Not recorded Living: Living Name of Baby 2: Not recorded Date: Not recorded GA: Not recorded Delivery: Not recorded Apgar1: Not recorded Apgar5: Not recorded Living: Not recorded Active Non-Hospital Problems Diagnosis Date Noted - History of herpes genitalis 11/01/2020 Overview Note: 1Pt has a history of genital herpes. Discussed with pt. importance of reporting any outbreaks during should they occur.TKRN - Nausea/vomiting in 11/01/2020 Overview Note: 1Patient is complaining of nausea in . Denies any vomiting advised patient to call/come in if she is unable to keep any food or fluids down in a 24-hour period. TKRN - delivery, delivered 08/06/2019 - High risk teen , antepartum 02/04/2019 Overview Note: 11/01/2020 Patient is a senior at [employer]. Patient is engaged to the father the baby. Father of the baby graduated 2 years ago.TKRN - History of marijuana use 02/04/2019 Overview Note: 02/04/2019Patient admits to using marijuana twice since she found out she was . FOB admits to "hard drug use in the past" but states he doesn't want to ever use it again. Discussed risks of illicit drug use in and advised patient that we may do random drug screens during and when she presents to the hospital in [facility]. TKRN - History of depression 02/04/2019 Overview Note: Pt has a history of depression diagnosed at age 14. She has been off medication for 2 years. She believes she is doing well off medication. Discussed increased risks of depression during and and importance of reporting the development or worsening of symptoms should they occur.Pt states she last had suicidal thoughts at age 17.Has seen a psychiatrist at [facility]-Dr Maria. . TKRN - Family history of [place]'s disease 02/04/2019 Overview Note: 02/04/2019Patient's MGM has [place]'s Disease. Patient desires genetic testing. TKRN ALLERGIES Allergen Reactions - Adhesive Tape (Irish* Rash - Latex Rash PRIOR TO ADMISSION MEDICATIONS: Prior to Admission Medications Prescriptions Last Dose Informant Patient Reported? Taking? Noijqoeo-Ea-Ikv-Fe-FA tab 03/15/2021 at Unknown time No Yes Sig: Take 1 tablet by mouth once daily. omeprazole (PRILOSEC) 20 mg capsule 03/15/2021 at Unknown time No Yes Sig: Take 1 capsule by mouth once daily. valACYclovir (VALTREX) 1 gram 03/15/2021 at Unknown time No Yes Sig: Take 1 tablet by mouth once daily. Facility-Administered Medications: N (more content not included)... [facility] NURSING PROGon 03-16-2021 NURSING PROG HNO ID: [id number] Author: Ame Nath RN Service: Nursing Author Type: Registered Nurse Type: Nursing Progress Note Filed: 03/16/2021 9:19 AM Note Text: Nursing Progress Note Patient Name: Barbara Gutierrez Patient Location: [id number]/[id number] Daily Note: Continous monitoring d/vincent per Dr. Brito, Dr. Cook This note was completed by: Ame Nath [facility] ANES PRE-OPon 03-15-2021 ANES PRE-OP HNO ID: [id number] Author: NEHEMIAS Reyes Service: Anesthesiology Author Type: Student Type: Anesthesia Preprocedure Evaluation Filed: 03/15/2021 7:39 PM Note Text: Attestation signed by Rich Lara APRN.CRNA at 03/16/2021 5:20 AM OB ANESTHESIA PRE-PROCEDURE ASSESSMENT PATIENT NAME: Barbara Gutierrez : 2000 [facility] EMERGENCY DEPARTMENT HEALTH OUTCOMES LIAISON: Previous OB anesthetic: None Patient is 20 years old, with di-di twins at 24w2d and presents in PTL. Patient states she had NCB for her first baby and plans for NCB for this . No OB anesthesia considerations labor No current obstetric problems/important considerations GERD: Patient is on medication for GERD, sometimes has positional symptoms, and has enamel erosion from sx. Relevant Problems NEURO-PSYCH (+) History of depression (+) History of herpes genitalis (+) History of marijuana use (+) History of delivery, currently PULMONARY (+) History of herpes genitalis I - PHYSICAL EVALUATION AIRWAY Patient intubated: No. Tracheostomy tube not present Mallampati: II. TM distance: >3 FB. Neck ROM: full ROM without neurological symptoms. Mouth opening: adequate. Short neck: no. Thick neck: no DENTAL Dental findings: poor dentition and chipped. Additional comments: Patient has very poor dentition with most of her front teeth chipped due to bad GERD. Patient also has lip piercing in place.. Additional exam findings: yes. CARDIOVASCULAR Normal cardiovascular observations. PULMONARY Normal pulmonary observations. ABDOMINAL Normal abdominal observations. BACK Normal back observations. II - ANESTHESIA PLAN ASA Score: 2 The patient is not a current smoker. NPO status: NPO solids @ 1100, clear liquids at bedside. Administration of chronic beta ileana medication not planned. Monitoring plan: standard ASA. Postoperative analgesic plan: multimodal analgesia and per surgical service. Anesthetic Risks, Benefits, Alternatives, Personnel Discussed. Consent obtained from: patient.Patient / Surrogate agrees to blood products: Yes Significant changes in the patient condition since the History and Physical, not otherwise documented in primary service progress note: no. Potential Anesthesia issues that may suggest increased risk of complications or contraindication to planned procedure: none. [facility] CHART REVIEW: ACTIVE PROBLEM LIST High Risk Teen , Antepartum History of Marijuana Use History of Depression Family History of Russel's Disease Delivery, Delivered History of Delivery, Currently History of Herpes Genitalis Nausea/Vomiting in Dichorionic Diamniotic Twin in Second Trimester Cervical Insufficiency During in Second Trimester, Antepartum PAST MEDICAL HISTORY Diagnosis Date - Anemia during in second trimester 05/18/2019 - Depression - GERD (gastroesophageal reflux disease) - H/O seasonal allergies - Herpes simplex virus (HSV) infection - IBS (irritable bowel syndrome) PAST SURGICAL HISTORY Procedure Laterality Date - NONE FAMILY HISTORY Problem Relation Age of Onset - Hypertension Mother - other (insomnia) Mother - other (fibromyalgia) Mother - other (IBS) Mother - Heart Attack Father - Depression Sister - No Known Problems Brother - Diabetes Maternal Grandmother - Hypertension Maternal Grandmother - other ([place]'s Disease) Maternal Grandmother - Cancer Maternal Grandfather Lung - Hypertension Maternal Grandfather - Alcohol/Drug Paternal Grandmother - Alcohol/Drug Paternal Grandfather - other (acid reflux) Son Social History Tobacco Use - Smoking status: Former Smoker Years: 0.50 Types: Cigarettes Quit date: 01/03/2019 Years since quittin.1 - Smokeless tobacco: Former User Types: Chew Quit date: 01/31/2019 Substance Use Topics - Alcohol use: Never - Drug use: Not Currently Types: Marijuana valACYclovir (VALTREX) 1 gram, Take 1 tablet by mouth once daily., Disp: 30 tablet, Rfl: 5, 03/15/2021 at Unknown time Ulzbrfvz-Qc-Pvj-Fe-FA tab, Take 1 tablet by mouth once daily., Disp: 30 tablet, Rfl: 11, 03/15/2021 at Unknown time omeprazole (PRILOSEC) 20 mg capsule, Take 1 capsule by mouth once daily., Disp: 30 capsule, Rfl: 2, 03/15/2021 at Unknown time Inpatient medications reviewed in EPIC I have interviewed and examined the patient. I have reviewed the medical record and/or the pre-anesthesia evaluation, pertinent labs, and test results. This contains updated information obtained within 48 hours of Surgery/Procedure. SIGNATURE: NEHEMIAS Reyes PATIENT NAME: Barbara Gutierrez DATE: March 15, 2021 TIME: 7:32 P (more content not included)... Normal [facility] CBCon 03-15-2021 Absolute nRBC <0.01 Normal <0.01 [facility] Comment on above: Performed By: #### U RCUL #### [place] [phone] [place] [address] [place], [place] [phone] Erythrocyte distribution width (RBC) [Ratio] 12.7 % Normal 11.5-15.0 [facility] Comment on above: Performed By: #### U RCUL #### [place] [phone] [place] [phone] Hematocrit (Bld) [Volume fraction] 34.8 % Low 36.0-46.0 [facility] Comment on above: Performed By: #### U RCUL #### [place] [phone] [place] [phone] Hemoglobin (Bld) [Mass/Vol] 11.8 g/dL Normal 11.5-15.5 [facility] Comment on above: Performed By: #### U RCUL #### [place] [phone] [facility] [address] [place] [address] MCH 32.2 pG Normal 26.0-34.0 [facility] Comment on above: Performed By: #### U RCUL #### [place] [phone] [place] [address] [place] [phone] MCHC (RBC) [Mass/Vol] 33.9 g/dL Normal 30.5-36.0 [facility] Comment on above: Performed By: #### U RCUL #### [place] [phone] [place] [phone] MCV (RBC) [Entitic vol] 95.1 fL Normal 80.0-100.0 [facility] Comment on above: Performed By: #### U RCUL #### [place] [phone] [place] [address] [place] [phone] Platelet mean volume (Bld) [Entitic vol] 10.5 fL Normal 9.0-12.7 [facility] Comment on above: Performed By: #### U RCUL #### [place] [phone] [place] [address] [address] [place] [id number] Platelets (Bld) [#/Vol] 218 10*3/uL Normal 150-400 [facility] Comment on above: Performed By: #### U RCUL #### [place] [phone] [facility] [address] [place] [id number] RBC (Bld) [#/Vol] 3.66 10*6/uL Low 3.90-5.20 [facility] Comment on above: Performed By: #### U RCUL #### [place] [phone] [place] [phone] WBC (Bld) [#/Vol] 12.29 10*3/uL High 3.70-11.00 [facility] Comment on above: Performed By: #### U RCUL #### [place] [phone] [place] [phone] Expedited [id number] 03-15-20 21 SARS-CoV-2 (COVID-19) RNA AQUILINO+probe Ql (Unsp spec) UPPER RESPIRATORY TRACT SWAB Normal [facility] Comment on above: Performed By: #### U RCUL #### [place] [phone] [place] [phone] SARS-CoV-2 (COVID-19) RNA AQUILINO+probe Ql (Unsp spec) Negative for COVID19 (SARS CoV2) by RT-PCR or equivalent method. Normal Negative for COVID19 (SARS CoV2) by RT-PCR or equivalent method. [facility] Comment on above: Result Comment: This test has been authorized by FDA under an Emergency Use Authorization (EUA). Performed By: #### U RCUL #### [place] [phone] [place] [address] GC/Chlamydia Amplifon 2020 Chlamydia Amplif Negative Normal [facility] Comment on above: Performed By: #### G CCT #### [place] [phone] [place] [phone] GC Amplification Negative Normal [facility] Comment on above: Performed By: #### G CCT #### [facility] [address] [place] [phone] [place] [address] GC/Chlam Amp Source Endocervical Normal [facility] Comment on above: Performed By: #### G CCT #### [facility] [address] [place] [phone] [place] [phone] Group B Strep Scrnon 021 Group B Strep Scrn Sp. Request/Comment: - Swab Culture Result - Negative for Streptococcus agalactiae (Group B streptococcus). Normal [facility] Comment on above: Performed By: #### G RPBSC #### [place] [address] HISTORY PHYSICALon HISTORY PHYSICAL HNO ID: [id number] Author: Apolonia Morales MD Service: Obstetrics Author Type: Physician Type: HANDP Filed: 03/15/2021 9:50 PM Note Text: OBSTETRICS HISTORY AND PHYSICAL SERVICE DATE: March 15, 2021 SERVICE TIME: 8:45 PM Subjective Patient's stated reason for arrival: im dilated CHIEF COMPLAINT: Labor HISTORY OF THE PRESENT ILLNESS: The patient is a 20 year old female, , who is at 24w2d with an ABRAHAM of 07/03/2021, by Last Menstrual Period dating method, with di/di twin and history significant for spontaneous PTL/PTD of boss at 28w. Patient is here with contractions/cramping over the last week, found to be 1.5 cm dilated in office today and OBUS demonstrating newly shortened cervix of 11 mm (from 26 mm 02/28). She reports good FM. No VB. No LOF. Stable thin milky white discharge. No fevers, chills, SOB, chest pain. Nausea due to pain and did have one episode of emesis here, but currently feeling better. No urinary symptoms. H/o HSV on valtrex, last outbreak 07/2020, no other h/o STDs. She was on IM progesterone earlier in the 2nd trimester but this was discontinued after 2 injections due to stable cervical lengths. POST DELIVERY CONTRACEPTION: Not discussed HISTORY REVIEW PAST MEDICAL HISTORY Diagnosis Date - Anemia during in second trimester 05/18/2019 - Depression - GERD (gastroesophageal reflux disease) - H/O seasonal allergies - Herpes simplex virus (HSV) infection - IBS (irritable bowel syndrome) PAST SURGICAL HISTORY Procedure Laterality Date - NONE FAMILY HISTORY Problem Relation Age of Onset - Hypertension Mother - other (insomnia) Mother - other (fibromyalgia) Mother - other (IBS) Mother - Heart Attack Father - Depression Sister - No Known Problems Brother - Diabetes Maternal Grandmother - Hypertension Maternal Grandmother - other ([place]'s Disease) Maternal Grandmother - Cancer Maternal Grandfather Lung - Hypertension Maternal Grandfather - Alcohol/Drug Paternal Grandmother - Alcohol/Drug Paternal Grandfather - other (acid reflux) Son Social History Tobacco Use - Smoking status: Former Smoker Years: 0.50 Types: Cigarettes Quit date: 01/03/2019 Years since quittin.1 - Smokeless tobacco: Former User Types: Chew Quit date: 01/31/2019 Substance Use Topics - Alcohol use: Never - Drug use: Not Currently Types: Marijuana Obstetric History T0 L1 SAB0 TAB0 Ectopic0 Multiple0 Live Births1 Name of Baby 1: Sp Alfred Date: 06/25/19 GA: 28w6d Delivery: Vaginal, Spontaneous Apgar1: Not recorded Apgar5: Not recorded Living: Living Name of Baby 2: Not recorded Date: Not recorded GA: Not recorded Delivery: Not recorded Apgar1: Not recorded Apgar5: Not recorded Living: Not recorded Active Non-Hospital Problems Diagnosis Date Noted - Dichorionic diamniotic twin in second trimester 02/13/2021 - History of delivery, currently 11/01/2020 Overview Note: 11/01/2020atient is 2 para 1 with a history of a delivery at 28 weeks. It was a precipitous delivery. I did discuss with patient Ashley. I have advised patient to go to the Ashley website and view the video and information. I also told her that if she decides to take this medication that she could come into the office for instruction. TKRN - History of herpes genitalis 11/01/2020 Overview Note: 1Pt has a history of genital herpes. Discussed with pt. importance of reporting any outbreaks during should they occur.TKRN - Nausea/vomiting in 11/01/2020 Overview Note: 1Patient is complaining of nausea in . Denies any vomiting advised patient to call/come in if she is unable to keep any food or fluids down in a 24-hour period. 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 Patient is engaged to the father the baby. Father of the baby graduated 2 years ago.TKRN - History of marijuana use 02/04/2019 Overview Note: 02/04/2019Patient admits to using marijuana twice since she found out she was . FOB admits to "hard drug use in the past" but states he doesn't want to ever use it again. Discussed risks of illicit drug use in and advised patient that we may do random drug screens during and when she presents to the hospital in [facility]. TKRN - History of depression 02/04/2019 Overview Note: Pt has a history of depression diagnosed at age 14. She has been off medication for 2 years. She believes she is doing well off medication. Discussed increased risks of depression during and and importance of reporting the development or worsening of symptoms should they occur.Pt states she last had suicidal thoughts at age 17.Has seen (more content not included)... Normal [facility] Toxicology Screen,Uron 03-15 Amphetamines, Urine Negative Normal Negative [facility] Comment on above: Result Comment: Cuto ff threshold at 1000 ng/mL. Performed By: #### G CCT #### [address] [address] [facility] [address] [place] [address] Barbiturates, Urine Negative Normal Negative [facility] Comment on above: Result Comment: Cuto ff threshold at 200 ng/mL. Performed By: #### G CCT #### [facility] [address] [place], [place] [phone] Benzodiazepines, Ur Negative Normal Negative [facility] Comment on above: Result Comment: Cuto ff threshold at 200 ng/mL. Performed By: #### G CCT #### [place] [phone] Cannabinoids, Urine Negative Normal Negative [facility] Comment on above: Result Comment: Cuto ff threshold at 50 ng/mL. Performed By: #### G CCT #### [place] [phone] Cocaine, Urine Negative Normal Negative [facility] Comment on above: Result Comment: Cuto ff threshold at 300 ng/mL. Performed By: #### G CCT #### [place] [address] Ethanol, Urine <11 Normal <11 [facility] Comment on above: Performed By: #### G CCT #### [place] [address] Opiates, Urine Negative Normal Negative [facility] Comment on above: Result Comment: Cuto ff threshold at 300 ng/mL. Performed By: #### G CCT #### [address] [place] [address] Oxycodone, Urine Negative Normal Negative [facility] Comment on above: Result Comment: Cuto ff threshold at 100 ng/mL. Comment: Immunoassay screen only. Cross reactivity with other substances can occur with immunoassay screening. Detection of any drug(s) in this urine toxicology panel is presumptive only. These tests are for medical purposes only and should not be used for compliance monitoring, legal, or forensic use. Samples should be within normal physiological conditions (e.g. pH). This assay does not include adulteration/specimen validity testing. In clinical settings, confirmatory testing is at the practitioner's discretion [1]. If clinically indicated, confirmation by high specificity, quantitative methodology, which includes adulteration/specimen validity testing, may be requested on the same specimen through Client Services ([phone]) if contacted within 48 hours of initial testing. [1]Substance Abuse and Mental Health Services Administration (2012). Clinical Drug Testing in Primary Care Technical Assistance Publication Series 32. Department of Health and Human Services, [place], p.10. Performed By: #### G CCT #### [place] [phone] [place] [phone] Phencyclidine, Urine Negative Normal Negative [facility] Comment on above: Result Comment: Cuto ff threshold at 25 ng/mL. Performed By: #### G CCT #### [place] [id number] [phone] Type and Scr,Prenatlon 03-15 ABO/RH(D) Positive Normal [facility] Comment on above: Performed By: #### T SPN ####[place] [phone] Urine Cultureon 03-15-2021 Bacteria identified Cx Nom (U) Sp. Request/Comment: - Specimen received in preservative Culture Result - No growth (<1,000 CFU/ml) Normal [facility] Comment on above: Performed By: #### U RCUL #### [place] [phone] [place] [phone] Vag Pathogens DNAon 03-15-20 21 Karen sp DNA Probe Negative Normal Negativ e for Karen species by DNA Probe [facility] Comment on above: Performed By: #### U RCUL #### [facility] [address] [place] [phone] [facility] [address] [place] [phone] Elvis vag DNA Probe Negative Normal Negative for Gardnerella vaginalis by DNA Probe [facility] Comment on above: Performed By: #### U RCUL #### [facility] [address] [place] [phone] [place] [address] [place] [phone] Trich vag DNA Probe Negative Normal Negative for Trichomonas vaginalis by DNA Probe [facility] Comment on above: Performed By: #### U RCUL #### [place] [phone] [place] [phone] Progress Noteon 12-20-2019 Activity Leader Authentication Interface Message Text Patient ID: Barbara Gutierrez is a 19 y.o. female. Her chief complaint(s) include: 19 YEAR WELL CHILD Assessment 1. Encounter for routine child health examination without abnormal findings 2. Exercise counseling 3. Encounter for dietary counseling and surveillance 4. Need for vaccination Plan Barbara was seen today for 19 year well child. Diagnoses and all orders for this visit: Encounter for routine child health examination without abnormal findings - Hearing Screening - Cancel: Vision Screening - Behavioral/Emotional Assessment w Score - PHQ-9 Exercise counseling Encounter for dietary counseling and surveillance Need for vaccination - Hepatitis A Ped/Adol <= 18y - Meningococcal ACWY (MENACTRA) - HPV (Gardasil 9) Return in about 1 year (around 12/19/2020) for well check. 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 19 YEAR WELL CHILD Home: Barbara has an adult to turn to for help and is permitted and able to make independent decisions. Education: Barbara is in 12th grade and is doing well and is meeting expectations. Eating: Barbara eats regular meals including fruits and vegetables, eats breakfast and has a calcium source. Activities & Sports: Barbara has friends and has a job. Drugs: Barbara does not use tobacco, does not use drugs, does not use alcohol and does not vape. Safety: Barbara uses seat belt. Sex: The patient has a sexual partner. The patient is interested in males. The patient has had sex. The patient's gender identity is cisgender. Typically, the patient uses oral contraceptives as current contraceptive method. The patient has not had an STD. STD screening offered and declined. Barbara has previously been : Yes The patient's history is A0 M0 Suicidality: Barbara has ways to cope with stress and displays self-confidence. Barbara has no depression, has no anxiety and has no suicidal ideation. Menstruation Last Menstrual Period: 1 month ago. Output Urine and Stool Pattern: Urine and Stool Pattern: Normal stool pattern, normal urine pattern. Stool Consistency: soft Sleep Sleeping Difficulty: no difficulty sleeping Screenings Previous Vaccine Reactions: No. Life events information was reviewed-no referral needed Hearing Vision Concerns: Patient wears glasses or contact lenses. The caregiver has no concerns about the patient's hearing. The caregiver has no concerns about the patient's vision. Barbara Gutierrez is a 19 y.o. female patient. Behavioral/Emotional Assessment w Score - PHQ-9 Performed by: Danni Cosme APRN-CNP Authorized by: Danni Cosme APRN-CNP PHQ-9 See PHQ9 Flowsheet Feeling down, depressed, irritable or hopeless: Several days Little interest or pleasure in doing things: Not at all Trouble falling or staying sleep, or sleeping too much: Not at all Poor appetite, weight loss, or overeating: Not at all Feeling tired or having little energy: Several days Feeling bad about yourself - or feeling that you are a failure, or have let yourself or your family down: Not at all Trouble concentrating on things, like school work, reading or watching TV: Not at all Moving or speaking so slowly that other people could have noticed. Or the opposite - being so fidgety or restless that you were moving around a lot more than usual: Not at all Thoughts that you would be better off , or of hurting yourself in some way: Not at all In the past year have you felt depressed or sad most days, even if you felt OK sometimes?: No If you are experiencing any of the problems on this form, how difficult have these problems made it for you to do your work, take care of things at home or get along with other people?: Not difficult at all Has there been a time in the past month when you have had serious thoughts about ending your life?: No Have you ever, in your whole life, tried to kill yourself or made a suicide attempt?: No PHQ-9 Total Score: 2 Total Score Value: 0-4 No or Minimal See Scanned Document Electronically signed by: Danni Cosme APRN-MATTHEW Primary Care Review of Systems Objective Vital Signs 12/20/19 0755 BP: 128/81 Pulse: 96 Weight: 47.2 kg Height: 169.5 cm Body mass index is 16.43 kg/m . Physical Exam Constitutional: She appears well. She is active. No distress. HENT: Head: Atraumatic. Ears: Right Ear: Tympanic membrane and external ear normal. Left Ear: Tympanic membrane and external ear normal. Nose: Nose normal. Mouth/Throat: Mucous membranes are moist. Dentition is normal. Oropharynx is clear. Eyes: Conjunctivae and EOM are normal. No strabismus. Pupils are equal, round, and reactive to light. Neck: Normal range of motion. Neck supple. Thyroid normal. Cardiovascular: Normal rate, regular rhythm, S1 normal and S2 normal. Pulses are palpable. Heart murmur not heard. Pulmonary/Chest: Breath sounds normal. No respiratory distress. Exhibits no deformity. Abdominal: Soft. Bowel sounds are normal. She exhibits no distension and no mass. There is no hepatosplenomegaly. There is no abdominal tenderness. Musculoskeletal: Normal range of motion. Back: She exhibits no scoliosis. Neurological: She is alert. She has normal strength. She exhibits normal muscle tone. Gait normal. Skin: Skin is warm and not pale. Findings: No rash. Vitals reviewed: Blood pressure 128/81, pulse 96, height 169.5 cm, weight 47.2 kg, last menstrual period 11/29/2019. Normal [facility] Progress Noteon 06-10-2019 Activity Leader Authentication Interface Message Text Patient ID: Barbara Gutierrez is a 18 y.o. female. Her chief complaint(s) include: Nausea Assessment 1. Nausea 2. , unspecified gestational age 3. Diarrhea, unspecified type 4. Urinary tract infection without hematuria, site unspecified Plan Barbara was seen today for nausea. Diagnoses and all orders for this visit: Nausea - POCT urinalysis dipstick - POCT Blood Glucose - Urine culture (Clinic Collect) , unspecified gestational age Diarrhea, unspecified type Urinary tract infection without hematuria, site unspecified - Cephalexin (KEFLEX) 500 MG tablet; Take 2 Tabs (1,000 mg) by mouth 2 times daily for 7 days Will culture urine, supportive care, push fluids F/u with OB RTO for fever, worsening, any s/sx of dehydration Likely some viral diarrhea Return if symptoms worsen or fail to improve. Subjective HPI Comments: 2 weeks ago started with Nausea, saw OB, they started her on B6 and Zofran. Zofran give her a migraine Has had some diarrhea over the last week, 5-6 a day, no vomiting About 25 weeks , denies any vaginal bleeding, d/c, or contractions Next OB appt on 06/23 Drinking ok. She is accompanied by her mother. Nausea This problem is new. The duration has been 2 weeks. The onset has been acute. The patient's symptoms have included diarrhea. The patient's symptoms have included no fever and no vomiting. Review of Systems Gastrointestinal: Positive for nausea. Objective Vital Signs 06/10/19 1152 06/10/19 1159 BP: 127/78 Pulse: (!) 112 (!) 114 Temp: 37.1 C (98.7 F) TempSrc: Temporal Weight: 52.3 kg There is no height or weight on file to calculate BMI. Physical Exam Constitutional: She appears well. She is active. No distress. HENT: Head: Atraumatic. Right Ear: Tympanic membrane normal. Left Ear: Tympanic membrane normal. Mouth/Throat: Mucous membranes are moist. Eyes: Conjunctivae are normal. Cardiovascular: Normal rate and regular rhythm. Heart murmur not heard. Pulmonary/Chest: Breath sounds normal. There is normal air entry. Abdominal: Bowel sounds are normal. abdomen Neurological: She is alert. Vitals reviewed: Blood pressure 127/78, pulse (!) 114, temperature 37.1 C (98.7 F), temperature source Temporal, weight 52.3 kg, last menstrual period 12/05/2018. Last Result POCT urinalysis dipstick Collection Time: 06/10/19 12:49 PM Result Value Ref Range POCT, Leukocytes, Urine 2+ (Moderate) (A) Negative POCT Nitrite, Urine Negative Negative POCT Protein, Urine Negative Negative - Trace mg/dl POCT Urine pH 7.0 5.0 - 8.0 pH POCT Blood, Urine Trace Hemolyzed (A) Negative POCT Urine Specific [place] 1.005 1.005 - 1.030 POCT Ketones, Urine Negative Negative mg/dl POCT Glucose, Urine Negative Negative mg/dl POCT Blood Glucose Collection Time: 06/10/19 12:42 PM Result Value Ref Range POCT Glucose, Blood 78 60 - 110 mg/dL Normal [facility] Urine Cultureon 06-10-2019 Bacteria identified Cx Nom (U) Is this specimen being sent to an external lab?->No Urine Culture: 50,000 - 100,000 CFU/ml of Normal Skin/urogenital jerod Source: URNMD Collected: 06/10/19 12:52 Site: Urine Received : 06/10/19 19:57 Urine Culture FINAL 06/12/19 09:51 50,000 - 100,000 CFU/ml of Normal Skin/urogenital jerod present Normal [facility] Comment on above: Performed By: #### U VIKTORIYA ####[address] [phone] Progress Noteon 05-24-2019 Activity Leader Authentication Interface Message Text Patient ID: Barbara Gutierrez is a 18 y.o. female. Her chief complaint(s) include: Vomiting and diarrhea (stomach cramps) Assessment 1. Acute nonintractable headache, unspecified headache type 2. Vomiting, intractability of vomiting not specified, presence of nausea not specified, unspecified vomiting type 3. Diarrhea, unspecified type 4. Blurry vision 5. Difficulty speaking Plan Barbara was seen today for vomiting and diarrhea. Diagnoses and all orders for this visit: Acute nonintractable headache, unspecified headache type Vomiting, intractability of vomiting not specified, presence of nausea not specified, unspecified vomiting type Diarrhea, unspecified type Blurry vision Difficulty speaking Return if symptoms worsen or fail to improve. Barbara has concerning symptoms with blurry vision, difficulty speaking, and severe occipital GUPTA since waking from a nap a few hours ago. BP is okay- 110/70. Sent by squad to [facility] for evaluation for clots/dural sinus thrombosis vs other etiology of symptoms. Spoke with [facility] ED attending. Subjective HPI Comments: Barbara and mom with similar symptoms x 5 days. Nausea, vomiting, dry heaves. Diarrhea. Bad abdominal cramps. Last emesis was last night. Diarrhea is frequently throughout the day. Drinking water, gatorade, tea. Low grade fevers this week. Normal urine output. No pain with urination. Took a nap this afternoon and feels like it is hard to get words out and hard to speak since then. Headache since she woke up- occipital and neck pain, severe. Fuzzy, blurry vision since waking from her nap 2 hours ago. No severe leg/calf pain. No shortness of breath or chest pain. She is accompanied by her mother. Vomiting and diarrhea The patient's associated symptoms have included: fatigue, headaches, abdominal pain, vomiting and diarrhea. The patient has no congestion, no cough, no shortness of breath, no wheezing, no difficulty breathing, no dysuria or no rash. Primary Care Review of Systems Objective Vital Signs 05/24/19 1433 BP: 110/70 Temp: 36.3 C (97.3 F) TempSrc: Temporal Weight: 52.6 kg There is no height or weight on file to calculate BMI. Physical Exam Constitutional: She is active. Ill appearing but nontoxic HENT: Head: Atraumatic. Nose: No nasal discharge. Mouth/Throat: Mucous membranes are moist. No pharynx erythema. Oropharynx is clear. Eyes: Conjunctivae and EOM are normal. Pupils are equal, round, and reactive to light. Neck: Normal range of motion. Neck supple. No neck rigidity or neck adenopathy. Cardiovascular: Normal rate and regular rhythm. Pulses are strong. Heart murmur not heard. Pulmonary/Chest: Effort normal and breath sounds normal. There is normal air entry. No respiratory distress. She has no wheezes. She has no rhonchi. She has no rales. Musculoskeletal: No pain, swelling, or limited range of motion at any joint. Neurological: She is alert. She exhibits normal muscle tone. Skin: Capillary refill takes less than 3 seconds. No rash noted. There is no pallor. Skin is warm. Normal [facility] Progress Noteon 04-13-2019 Activity Leader Authentication Interface Message Text Patient ID: Barbara Gutierrez is a 18 y.o. female. Her chief complaint(s) include: Diarrhea (right side cramping for 5 days, diarrhea for two weeks) Assessment 1. Abdominal pain during in first trimester Plan Barbara was seen today for diarrhea. Diagnoses and all orders for this visit: Abdominal pain during in first trimester No follow-ups on file. Subjective HPI Comments: Advised this 18 year old patient who is19 weeks and experiencing abdominal pain to follow up with her OB right away today or to go to the ED for assistance if she cannot get in to see her OB today. She is accompanied by her mother. Diarrhea The course is unchanging. Her food intake is decreased. Her fluid intake is decreased. Contributing Factors: patient stated that she was 19 weeks . Review of Systems Gastrointestinal: Positive for diarrhea. Objective Vital Signs 04/13/19 1447 Temp: 37.5 C (99.5 F) TempSrc: Temporal Weight: 49.2 kg There is no height or weight on file to calculate BMI. Physical Exam Nursing note reviewed. Constitutional: She appears well. She is active. No distress. HENT: Head: Atraumatic. Mouth/Throat: Mucous membranes are moist. Eyes: Conjunctivae are normal. Cardiovascular: Normal rate. Pulmonary/Chest: Effort normal. There is normal air entry. Abdominal: Soft. There is no guarding. Neurological: She is alert. Skin: Skin is warm. Vitals reviewed: Temperature 37.5 C (99.5 F), temperature source Temporal, weight 49.2 kg, last menstrual period 12/05/2018. Normal [facility] Ferritinon 04-07-2019 Ferritin [Mass/Vol] 12 ng/mL Normal 12-156 [facility] Comment on above: Order Comment: With differential.Is this specimen being sent to an external lab?->NoTIBC will not be run.Is this specimen being sent to an external lab?->No Performed By: #### F ERTN ####[facility] [place], [place] [phone] Complete Blood Counton 04-06 Differential Complete Manual Normal [facility] Comment on above: Order Comment: With differential. Is this specimen being sent to an external lab?->No TIBC will not be run. Is this specimen being sent to an external lab?->No Performed By: #### C BC #### [address] [id number] Erythrocyte distribution width (RBC) [Ratio] 12.9 % Normal 0.0-14.4 [facility] Comment on above: Order Comment: With differential. Is this specimen being sent to an external lab?->No TIBC will not be run. Is this specimen being sent to an external lab?->No Performed By: #### C BC #### [address] [id number] Hematocrit (Bld) [Volume fraction] 33.3 % Low 37.0-46.0 [facility] Comment on above: Order Comment: With differential. Is this specimen being sent to an external lab?->No TIBC will not be run. Is this specimen being sent to an external lab?->No Performed By: #### C BC #### [address] [address] Hemoglobin (Bld) [Mass/Vol] 10.9 g/dL Low 12.0-15.0 [facility] Comment on above: Order Comment: With differential. Is this specimen being sent to an external lab?->No TIBC will not be run. Is this specimen being sent to an external lab?->No Performed By: #### C BC #### [address] [address] Immature granulocytes/100 WBC (Bld) 0.60 % Normal [facility] Comment on above: Order Comment: With differential. Is this specimen being sent to an external lab?->No TIBC will not be run. Is this specimen being sent to an external lab?->No Result Comment: Sheryl ture Granulocyte Percent includes promyelocytes, myelocytes, and metamyelocytes. IG% > 1.0 indicates a left shift is present. With automated differentials, bands are included in the neutrophil count and not in the Immature Granulocyte Percent. Performed By: #### C BC #### [address] [id number] MCH (RBC) [Entitic mass] 28.9 pg Normal 25.0-35.0 [facility] Comment on above: Order Comment: With differential. Is this specimen being sent to an external lab?->No TIBC will not be run. Is this specimen being sent to an external lab?->No Performed By: #### C BC #### [address] [id number] MCHC (RBC) [Mass/Vol] 32.7 % Normal 31.0-37.0 [facility] Comment on above: Order Comment: With differential. Is this specimen being sent to an external lab?->No TIBC will not be run. Is this specimen being sent to an external lab?->No Performed By: #### C BC #### [address] [address] MCV (RBC) [Entitic vol] 88.3 fL Normal 78.0-96.0 [facility] Comment on above: Order Comment: With differential. Is this specimen being sent to an external lab?->No TIBC will not be run. Is this specimen being sent to an external lab?->No Performed By: #### C BC #### [address] [id number] Nucleated RBC/100 WBC (Bld) [Ratio] 0.0 % Normal -1.0-0.0 [facility] Comment on above: Order Comment: With differential. Is this specimen being sent to an external lab?->No TIBC will not be run. Is this specimen being sent to an external lab?->No Performed By: #### C BC #### [address] [id number] Platelet mean volume (Bld) [Entitic vol] 10.6 fL Normal [facility] Comment on above: Order Comment: With differential. Is this specimen being sent to an external lab?->No TIBC will not be run. Is this specimen being sent to an external lab?->No Result Comment: MPV is platelet range and age dependent Performed By: #### C BC #### [address] [id number] Platelets (Bld) [#/Vol] 346 10*3/uL Normal 150-450 [facility] Comment on above: Order Comment: With differential. Is this specimen being sent to an external lab?->No TIBC will not be run. Is this specimen being sent to an external lab?->No Performed By: #### C BC #### [address] [address] RBC (Bld) [#/Vol] 3.77 10E12/L Low 4.10-4.80 [facility] Comment on above: Order Comment: With differential. Is this specimen being sent to an external lab?->No TIBC will not be run. Is this specimen being sent to an external lab?->No Performed By: #### C BC #### [address] [id number] WBC (Bld) [#/Vol] 10.9 10*3/uL Normal 4.5-13.0 [facility] Comment on above: Order Comment: With differential. Is this specimen being sent to an external lab?->No TIBC will not be run. Is this specimen being sent to an external lab?->No Performed By: #### C BC #### [address] [address] Manual Differentialon 2018 Absolute Neutrophil No. 6.4 Normal [facility] Comment on above: Order Comment: With differential.Is this specimen being sent to an external lab?->NoTIBC will not be run.Is this specimen being sent to an external lab?->No Performed By: #### M DIFF ####[address] [phone] Anisocytosis Ql (Bld) Slight Normal [facility] Comment on above: Order Comment: With differential.Is this specimen being sent to an external lab?->NoTIBC will not be run.Is this specimen being sent to an external lab?->No Performed By: #### M DIFF ####[address] [phone] Atypical Lymphocytes 1 % Normal 0-8 [facility] Comment on above: Order Comment: With differential.Is this specimen being sent to an external lab?->NoTIBC will not be run.Is this specimen being sent to an external lab?->No Performed By: #### M DIFF ####[address] [phone] Band form neutrophils/100 WBC (Bld) 3 % Low 5-11 [facility] Comment on above: Order Comment: With differential.Is this specimen being sent to an external lab?->NoTIBC will not be run.Is this specimen being sent to an external lab?->No Performed By: #### M DIFF ####[address] [phone] Eosinophils 2 % Normal 0-3 [facility] Comment on above: Order Comment: With differential.Is this specimen being sent to an external lab?->NoTIBC will not be run.Is this specimen being sent to an external lab?->No Performed By: #### M DIFF ####[address] [phone] Lymphocytes 33 % Normal 25-45 [facility] Comment on above: Order Comment: With differential.Is this specimen being sent to an external lab?->NoTIBC will not be run.Is this specimen being sent to an external lab?->No Performed By: #### M DIFF ####[address] [phone] Metamyelocytes 0 % Normal 0-0 [facility] Comment on above: Order Comment: With differential.Is this specimen being sent to an external lab?->NoTIBC will not be run.Is this specimen being sent to an external lab?->No Performed By: #### M DIFF ####[address] [phone] Monocytes 5 % Normal 3-6 [facility] Comment on above: Order Comment: With differential.Is this specimen being sent to an external lab?->NoTIBC will not be run.Is this specimen being sent to an external lab?->No Performed By: #### M DIFF ####[address] [phone] Myelocytes 0 % Normal 0-0 [facility] Comment on above: Order Comment: With differential.Is this specimen being sent to an external lab?->NoTIBC will not be run.Is this specimen being sent to an external lab?->No Performed By: #### M DIFF ####[address] [phone] Promyelocytes 0 % Normal 0-0 [facility] Comment on above: Order Comment: With differential.Is this specimen being sent to an external lab?->NoTIBC will not be run.Is this specimen being sent to an external lab?->No Performed By: #### M DIFF ####[address] [phone] Segmented neutrophils/100 WBC (Bld) 56 % Normal 34-64 [facility] Comment on above: Order Comment: With differential.Is this specimen being sent to an external lab?->NoTIBC will not be run.Is this specimen being sent to an external lab?->No Performed By: #### M DIFF ####[facility] [address] [phone] WBC Inclusions Slight Normal [facility] [facility] Comment on above: Order Comment: With differential.Is this specimen being sent to an external lab?->NoTIBC will not be run.Is this specimen being sent to an external lab?->No Result Comment: Slig ht Toxic granulation Performed By: #### M DIFF ####[facility] [address] [phone] Progress Noteon 04-06-2019 Activity Leader Authentication Interface Message Text Patient ID: Barbara Gutierrez is a 18 y.o. female. Her chief complaint(s) include: Fatigue ([place] still bothing her, sleeping 14-15 hours of the day, sore neck on right side, ear pain) Assessment 1. Fatigue, unspecified type 2. Other infectious mononucleosis without complication 3. Dizziness 4. , unspecified gestational age Plan Barbara was seen today for fatigue. Diagnoses and all orders for this visit: Fatigue, unspecified type - Complete Blood Count with Diff (Clinic Collect) - Ferritin (Clinic Collect) - Venipuncture - POCT Blood Glucose Other infectious mononucleosis without complication Dizziness - Orthostatic blood pressure , unspecified gestational age Patient having a lot of fatigue/dizziness with current illness. Instructed her on the need to drink more fluids and the importance of eating healthy diet. Will obtain cbc and ferritin to evaluate for possible anemia that may be contributing to the fatigue. Will try to go to school for half days so as to not get behind on school work. Return if symptoms worsen or fail to improve. Subjective She is accompanied by her mother and relative(s). Fatigue This problem is new. The duration has been 2 weeks. Onset: patient and diagnosed with mono. The course is unchanging. The patient's symptoms have included fatigue, sore throat (on the right), right ear pain, headaches, abdominal pain and diarrhea. The patient's symptoms have included no fever, no fussiness, no decreased appetite, no decreased fluid intake, no difficulty sleeping, no congestion, no rhinorrhea, no cough and no vomiting. The location of symptoms have included the abdomen and throat. The symptoms are described as mild. There have been no previous interventions. Primary Care Review of Systems Objective Vital Signs 04/06/19 1214 04/06/19 1250 04/06/19 1253 BP: 111/71 118/72 122/65 Pulse: 105 107 (!) 122 Temp: 36.9 C (98.5 F) Weight: 49.4 kg There is no height or weight on file to calculate BMI. Physical Exam Constitutional: She appears well. She is active. No distress. HENT: Head: Atraumatic. Right Ear: Tympanic membrane normal. Left Ear: Tympanic membrane normal. Mouth/Throat: Mucous membranes are moist. Eyes: Conjunctivae are normal. Cardiovascular: Normal rate and regular rhythm. Heart murmur not heard. Pulmonary/Chest: Breath sounds normal. There is normal air entry. Abdominal: Soft. Bowel sounds are normal. Patient Neurological: She is alert. Vitals reviewed: Temperature 36.9 C (98.5 F), weight 49.4 kg, last menstrual period 12/05/2018. Last Result POCT Blood Glucose Collection Time: 04/06/19 1:24 PM Result Value Ref Range POCT Glucose, Blood 107 60 - 110 mg/dL Normal [facility] Z Miscellaneous Sendouton Patient Results ----- Normal [facility] Comment on above: Order Comment: EBVIG and EBVIM to [facility] 0.5-1.0 mL Serum Store Refrigerated Result Comment: Plea se refer to the complete report scanned into [employer] 03-29-2019. Performed By: #### Z MSO #### [place] [id number] Z Miscellaneous Sendouton Performed by: see below Normal [facility] Comment on above: Order Comment: EBVIG and EBVIM to [facility] 0.5-1.0 mL Serum Store Refrigerated Result Comment: Testing Performed: [facility] [address] [place] [id number] Performed By: #### Z MSO #### [address] [address] Comp Metabolic Panelon 03-24 Albumin [Mass/Vol] 3.3 g/dL Normal 3.2-4.5 [facility] Comment on above: Order Comment: Is th is specimen being sent to an external lab?->No Performed By: #### C MP #### [address] [id number] ALP [Catalytic activity/Vol] 171 U/L High 47-119 [facility] Comment on above: Order Comment: Is th is specimen being sent to an external lab?->No Performed By: #### C MP #### [address] [id number] ALT [Catalytic activity/Vol] 57 U/L High 0-31 [facility] Comment on above: Order Comment: Is th is specimen being sent to an external lab?->No Performed By: #### C MP #### [address] [address] AST [Catalytic activity/Vol] 35 U/L High 0-31 [facility] Comment on above: Order Comment: Is th is specimen being sent to an external lab?->No Performed By: #### C MP #### [address] [id number] Bili,Total 0.5 mg/dl Normal 0.0-1.0 [facility] Comment on above: Order Comment: Is th is specimen being sent to an external lab?->No Result Comment: Premature : 1 Day 1.0-6.0 mg/dl 2 Day 6.0-8.0 mg/dl 3-5 Day 10.0-15.0 mg/dl Performed By: #### C MP #### [address] [id number] Calcium [Mass/Vol] 8.1 mg/dL Normal 7.6-11.0 [facility] Comment on above: Order Comment: Is th is specimen being sent to an external lab?->No Performed By: #### C MP #### [address] [id number] Chloride [Moles/Vol] 105 mmol/L Normal 96-108 [facility] Comment on above: Order Comment: Is th is specimen being sent to an external lab?->No Performed By: #### C MP #### [address] [address] CO2 [Moles/Vol] 24.4 mmol/L Normal 22.0-29.0 [facility] Comment on above: Order Comment: Is th is specimen being sent to an external lab?->No Performed By: #### C MP #### [place] [address] Creatinine [Mass/Vol] 0.47 mg/dL Low 0.50-1.00 [facility] Comment on above: Order Comment: Is th is specimen being sent to an external lab?->No Result Comment: Premature 0.3-1.0 mg/dL Performed By: #### C MP #### [place] [address] Glucose [Mass/Vol] 71 mg/dL Normal 70-99 [facility] Comment on above: Order Comment: Is th is specimen being sent to an external lab?->No Result Comment: Criteria for Diagnosis of Diabetes(Effective 12/10/10): Fasting specimen (no caloric intake for at least 8 hours). <100 mg/dl Normal 100-125 mg/dl Increased Risk for Diabetes >125 mg/dl Diagnostic for Diabetes Random Glucose (any time of day without regard to last meal). >=200 mg/dl plus Classic Symptoms of Diabetes Performed By: #### C MP #### [address] [id number] Potassium [Moles/Vol] 3.8 mmol/L Normal 3.3-5.1 [facility] Comment on above: Order Comment: Is th is specimen being sent to an external lab?->No Performed By: #### C MP #### [address] [address] Protein [Mass/Vol] 6.4 g/dL Normal 5.9-8.4 [facility] Comment on above: Order Comment: Is th is specimen being sent to an external lab?->No Performed By: #### C MP #### [address] [address] Sodium [Moles/Vol] 141 mmol/L Normal 133-145 [facility] Comment on above: Order Comment: Is th is specimen being sent to an external lab?->No Performed By: #### C MP #### [address] [address] Urea nitrogen [Mass/Vol] mg/dL Normal 4-19 [facility] Comment on above: Order Comment: Is th is specimen being sent to an external lab?->No Performed By: #### C MP #### [address] [id number] Complete Blood Counton 03-24 Differential Complete Manual Normal [facility] Comment on above: Order Comment: Is th is specimen being sent to an external lab?->No Performed By: #### C BC #### [address] [address] Erythrocyte distribution width (RBC) [Ratio] 13.3 % Normal 0.0-14.4 [facility] Comment on above: Order Comment: Is th is specimen being sent to an external lab?->No Performed By: #### C BC #### [address] [id number] Hematocrit (Bld) [Volume fraction] 34.8 % Low 37.0-46.0 [facility] Comment on above: Order Comment: Is th is specimen being sent to an external lab?->No Performed By: #### C BC #### [address] [id number] Hemoglobin (Bld) [Mass/Vol] 11.6 g/dL Low 12.0-15.0 [facility] Comment on above: Order Comment: Is th is specimen being sent to an external lab?->No Performed By: #### C BC #### [address] [id number] Immature granulocytes/100 WBC (Bld) 0.30 % Normal [facility] Comment on above: Order Comment: Is th is specimen being sent to an external lab?->No Result Comment: Sheryl ture Granulocyte Percent includes promyelocytes, myelocytes, and metamyelocytes. IG% > 1.0 indicates a left shift is present. With automated differentials, bands are included in the neutrophil count and not in the Immature Granulocyte Percent. Performed By: #### C BC #### [address] [address] MCH (RBC) [Entitic mass] 30.1 pg Normal 25.0-35.0 [facility] Comment on above: Order Comment: Is th is specimen being sent to an external lab?->No Performed By: #### C BC #### [address] [id number] MCHC (RBC) [Mass/Vol] 33.3 % Normal 31.0-37.0 [facility] Comment on above: Order Comment: Is th is specimen being sent to an external lab?->No Performed By: #### C BC #### [address] [id number] MCV (RBC) [Entitic vol] 90.2 fL Normal 78.0-96.0 [facility] Comment on above: Order Comment: Is th is specimen being sent to an external lab?->No Performed By: #### C BC #### [facility] [address] Nucleated RBC/100 WBC (Bld) [Ratio] 0.0 % Normal -1.0-0.0 [facility] Comment on above: Order Comment: Is th is specimen being sent to an external lab?->No Performed By: #### C BC #### [address] [address] Platelet mean volume (Bld) [Entitic vol] 11.5 fL Normal [facility] Comment on above: Order Comment: Is th is specimen being sent to an external lab?->No Result Comment: MPV is platelet range and age dependent Performed By: #### C BC #### [address] [address] Platelets (Bld) [#/Vol] 176 10*3/uL Normal 150-450 [facility] Comment on above: Order Comment: Is th is specimen being sent to an external lab?->No Performed By: #### C BC #### [address] [address] RBC (Bld) [#/Vol] 3.86 10E12/L Low 4.10-4.80 [facility] Comment on above: Order Comment: Is th is specimen being sent to an external lab?->No Performed By: #### C BC #### [address] [address] WBC (Bld) [#/Vol] 12.0 10*3/uL Normal 4.5-13.0 [facility] Comment on above: Order Comment: Is th is specimen being sent to an external lab?->No Performed By: #### C BC #### [address] [address] Manual Differentialon 2018 Absolute Neutrophil No. 5.8 Normal [facility] Comment on above: Order Comment: Is th is specimen being sent to an external lab?->No Performed By: #### M DIFF #### [address] [address] Anisocytosis Ql (Bld) Slight Normal [facility] Comment on above: Order Comment: Is th is specimen being sent to an external lab?->No Performed By: #### M DIFF #### [address] [address] Atypical Lymphocytes 13 % High 0-8 [facility] Comment on above: Order Comment: Is th is specimen being sent to an external lab?->No Performed By: #### M DIFF #### [address] [address] Band form neutrophils/100 WBC (Bld) 1 % Low 5-11 [facility] Comment on above: Order Comment: Is th is specimen being sent to an external lab?->No Performed By: #### M DIFF #### [address] [address] Lymphocytes 32 % Normal 25-45 [facility] Comment on above: Order Comment: Is th is specimen being sent to an external lab?->No Performed By: #### M DIFF #### [address] [address] Metamyelocytes 0 % Normal 0-0 [facility] Comment on above: Order Comment: Is th is specimen being sent to an external lab?->No Performed By: #### M DIFF #### [address] [address] Monocytes 7 % High 3-6 [facility] Comment on above: Order Comment: Is th is specimen being sent to an external lab?->No Performed By: #### M DIFF #### [address] [address] Myelocytes 0 % Normal 0-0 [facility] Comment on above: Order Comment: Is th is specimen being sent to an external lab?->No Performed By: #### M DIFF #### [address] [address] Polychromasia Occasional Normal [facility] Comment on above: Order Comment: Is th is specimen being sent to an external lab?->No Performed By: #### M DIFF #### [address] [address] Promyelocytes 0 % Normal 0-0 [facility] Comment on above: Order Comment: Is th is specimen being sent to an external lab?->No Performed By: #### M DIFF #### [address] [address] Segmented neutrophils/100 WBC (Bld) 47 % Normal 34-64 [facility] Comment on above: Order Comment: Is th is specimen being sent to an external lab?->No Performed By: #### M DIFF #### [address] [address] Progress Noteon 03-24-2019 Activity Leader Authentication Interface Message Text Patient ID: Barbara Gutierrez is a 18 y.o. female. Her chief complaint(s) include: Pharyngitis (ear pain , head aches, pain in back of neck) Assessment 1. Infectious mononucleosis without complication, infectious mononucleosis due to unspecified organism Plan Barbara was seen today for pharyngitis. Diagnoses and all orders for this visit: Infectious mononucleosis without complication, infectious mononucleosis due to unspecified organism - POCT mononucleosis antibodies (Monospot) - Venipuncture - Complete Blood Count with Diff - Cancel: Cee-Garcia virus VCA, IgG - Cancel: Cee-Garcia virus VCA, IgM - Comprehensive metabolic panel (Clinic Collect) Other orders - Manual Differential - Miscellaneous sendout: Symptomatic treatment for sore throat. Push fluids and monitor closely for side effects. Patient is . Instructed patient to inform her jacquard fixer of the diagnosis. Monitor closely. Return for Well Visit and as needed. Subjective She is accompanied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 [facility] 08-22-2023 12:36-0500 Systolic blood pressure 108 mm[Hg] Krislyn Aberegg PA Work Phone: [facility] 03-22-2023 09:08-0400 Body temperature 98.1 [degF] Tasneem Praisler-Wood 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 FRICTION Work Phone: [facility] 03-22-2023 09:08-0400 Body weight 46.72 kg Tasneem Praisler-Wood 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 FRICTION Work Phone: [facility] 03-22-2023 09:08-0400 Diastolic blood pressure 80 mm[Hg] Tasneem Praisler-Wood 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 FRICTION Work Phone: [facility] 03-22-2023 09:08-0400 Heart rate 100 /min Tasneem Jolly-Mark 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 FRICTION Work Phone: [facility] 03-22-2023 09:08-0400 Respiratory rate 16 /min Tasneem Jolly-Mark 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 FRICTION Work Phone: [facility] 03-22-2023 09:08-0400 Systolic blood pressure 104 mm[Hg] Tasneem Hellerler-Mark 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 FRICTION Work Phone: [facility] 01-30-2023 11:34-0400 Body weight 47.27 kg Antonieta Mendoza MD Work Phone: [facility] 01-30-2023 11:34-0400 Diastolic blood pressure 70 mm[Hg] Antonieta Mendoza MD Work Phone: [facility] 01-30-2023 11:34-0400 Systolic blood pressure 104 mm[Hg] Antonieta Mendoza MD Work Phone: [facility] 01-16-2023 16:38-0400 Body weight 46.72 kg Pricila Vergara APRN.WELDING MACHINE OPERATOR FRICTION Work Phone: [facility] 01-16-2023 16:38-0400 Diastolic blood pressure 60 mm[Hg] Pricila Vergara APRN.WELDING MACHINE OPERATOR FRICTION Work Phone: [facility] 01-16-2023 16:38-0400 Systolic blood pressure 98 mm[Hg] Pricila Vergara APRN.WELDING MACHINE OPERATOR FRICTION Work Phone: [facility] 01-01-2023 22:20-0400 Body height 165.1 cm [facility] 01-01-2023 22:20-0400 Body mass index (BMI) [Ratio] 17.9 kg/m2 [facility] 01-01-2023 22:20-0400 Body temperature 97.9 [degF] [facility] 01-01-2023 22:20-0400 Body weight 48.8 kg [facility] 01-01-2023 22:20-0400 Diastolic blood pressure 84 mm[Hg] [facility] 01-01-2023 22:20-0400 Heart rate 81 /min [facility] 01-01-2023 22:20-0400 Respiratory rate 16 /min [facility] 01-01-2023 22:20-0400 SaO2% (BldA) [Mass fraction] 98 % [facility] 01-01-2023 22:20-0400 Systolic blood pressure 129 mm[Hg] [facility] 12-25-2022 16:47-0400 Body temperature 99.39 [degF] Nilda Castellanos 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 FRICTION Work Phone: [facility] 12-25-2022 16:47-0400 Body weight 46.72 kg Nilda Castellanos 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 FRICTION Work Phone: [facility] 12-25-2022 16:47-0400 Diastolic blood pressure 80 mm[Hg] Nilda Castellanos 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 FRICTION Work Phone: [facility] 12-25-2022 16:47-0400 Heart rate 120 /min Nilda Castellanos 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 FRICTION Work Phone: [facility] 12-25-2022 16:47-0400 Respiratory rate 16 /min Nilda Castellanos 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 FRICTION Work Phone: [facility] 12-25-2022 16:47-0400 SaO2% (BldA) [Mass fraction] 97 % Nilda Castellanos 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 FRICTION Work Phone: [facility] 12-25-2022 16:47-0400 Systolic blood pressure 92 mm[Hg] Nilda Castellanos 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 FRICTION Work Phone: [facility] 07-05-2022 16:12-0500 Body temperature 97.9 [degF] Yosi Payne 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 FRICTION Work Phone: [facility] 07-05-2022 16:12-0500 Body weight 46.9 kg Yosi Payne 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 FRICTION Work Phone: [facility] 07-05-2022 16:12-0500 Diastolic blood pressure 70 mm[Hg] Yosi Pendlebury 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 FRICTION Work Phone: [facility] 07-05-2022 16:12-0500 Heart rate 119 /min Yosi Pendlebury 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 FRICTION Work Phone: [facility] 07-05-2022 16:12-0500 Respiratory rate 18 /min Yosi Pendlebury 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 FRICTION Work Phone: [facility] 07-05-2022 16:12-0500 SaO2% (BldA) [Mass fraction] 98 % Yosi Pendlebury 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 FRICTION Work Phone: [facility] 07-05-2022 16:12-0500 Systolic blood pressure 108 mm[Hg] Yosi Pendlebury 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 FRICTION Work Phone: [facility] 05-21-2022 16:34-0500 Body temperature 98.01 [degF] Jessica Callow 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 FRICTION Work Phone: [facility] 05-21-2022 16:34-0500 Body weight 48.53 kg Jessica Callow 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 FRICTION Work Phone: [facility] 05-21-2022 16:34-0500 Diastolic blood pressure 62 mm[Hg] Jessica Callow 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 FRICTION Work Phone: [facility] 05-21-2022 16:34-0500 Heart rate 60 /min Jessica Callow 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 FRICTION Work Phone: [facility] 05-21-2022 16:34-0500 Respiratory rate 16 /min Jessica Callow 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 FRICTION Work Phone: [facility] 05-21-2022 16:34-0500 SaO2% (BldA) [Mass fraction] 99 % Jessica Callow 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 FRICTION Work Phone: [facility] 05-21-2022 16:34-0500 Systolic blood pressure 106 mm[Hg] Jessica Callow 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 FRICTION Work Phone: [facility] 02-14-2022 11:44-0400 Body weight 46.72 kg Pricila Vergara 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 FRICTION Work Phone: [facility] 02-14-2022 11:44-0400 Diastolic blood pressure 68 mm[Hg] Pricila Vergara 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 FRICTION Work Phone: [facility] 02-14-2022 11:44-0400 Systolic blood pressure 110 mm[Hg] Pricila Vergara 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 FRICTION Work Phone: [facility] 12-28-2021 14:50-0400 Body weight 48.9 kg Marcia Plotrene CUSTOMER SALES DISTRIBUTOR.CNM Work Phone: [facility] 12-28-2021 14:50-0400 Diastolic blood pressure 60 mm[Hg] Marcia Plotts CUSTOMER SALES DISTRIBUTOR.CNM Work Phone: [facility] 12-28-2021 14:50-0400 Systolic blood pressure 98 mm[Hg] Marcia Plotrene CUSTOMER SALES DISTRIBUTOR.CNM Work Phone: [facility] 12-28-2021 12:36-0400 Body temperature 97.59 [degF] Yosi Payne 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 FRICTION Work Phone: [facility] 12-28-2021 12:36-0400 Body weight 48.08 kg Yosi Payne 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 FRICTION Work Phone: [facility] 12-28-2021 12:36-0400 Diastolic blood pressure 82 mm[Hg] Yosi Payne 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 FRICTION Work Phone: [facility] 12-28-2021 12:36-0400 Heart rate 106 /min Yosi Payne 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 FRICTION Work Phone: [facility] 12-28-2021 12:36-0400 Respiratory rate 20 /min Yosi Payne 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 FRICTION Work Phone: [facility] 12-28-2021 12:36-0400 SaO2% (BldA) [Mass fraction] 97 % Yosiyou Payne APRN.CNP Work Phone: [facility] 12-28-2021 12:36-0400 Systolic blood pressure 110 mm[Hg] Yosi Elmer KHANWELDING MACHINE OPERATOR FRICTION Work Phone: [facility] Encounters Encounter Date Encounter Type Care Provider Facility Start: 05-03-2025 End: 05-03-2025 ambulatory MARCIA FARRELL Facility:[facility] Start: 04-22-2025 End: 04-22-2025 ambulatory ELENA MARGARITO Facility:[facility] Start: 04-08-2025 End: 04-08-2025 ambulatory NILAD JEAN Facility:[facility] Start: 03-28-2025 End: 03-28-2025 ambulatory ESHA PORTER Facility:[facility] Start: 03-22-2025 End: 03-22-2025 Patient encounter procedure Nilda Jean MC Work Phone: OB/Gynecology Comment on above: Supervision of high risk in second trimester (HCC) (Primary Dx); 24 weeks gestation of (HCC); Urinary tract infection without hematuria, site unspecified; Nausea; Diarrhea, unspecified type; Cramping affecting , antepartum ([facility]); Hx of delivery, currently ([facility]) Start: 03-22-2025 End: 03-22-2025 ambulatory NILDA JEAN Facility:[facility] Start: 03-14-2025 End: 03-14-2025 Patient encounter procedure Odette Lindsay MD Work Phone: OB/Gynecology Comment on above: Palpitations (Primar y Dx); Supervision of high risk in second trimester (HCC); 23 weeks gestation of (HCC); Blurred vision; Generalized body aches; UTI (urinary tract infection) in , antepartum ([facility]) Start: 03-14-2025 End: 03-14-2025 ambulatory ODETTE LINDSAY Facility:[facility] Start: 03-13-2025 End: 03-13-2025 ambulatory Opal Singh RN NURSE STATOR WINDER Comment on above: Patient Update Start: 03-11-2025 End: 03-11-2025 Patient encounter procedure [employer] [facility] Comment on above: Hx of delive ry, currently (HCC) (Primary Dx); 23 weeks gestation of (HCC) Supervision of high risk in second trimester (HCC) (Primary Dx); 23 weeks gestation of (HCC); Urinary tract infection without hematuria, site unspecified; Hx of delivery, currently (HCC); Screening for diabetes mellitus; History of depression; History of herpes genitalis Start: 03-11-2025 End: 03-11-2025 ambulatory MARCIA FARRELL Facility:[facility] Start: 03-01-2025 End: 03-01-2025 Telephone encounter Kamilla Porter MD Work Phone: OB/Gynecology Comment on above: OB UTI Start: 02-24-2025 End: 02-24-2025 Telephone encounter Nurse [employer] Monitor Chen Solorio Work Phone: Obstetrics/Gynecology Comment on above: PRAF Start: 02-23-2025 End: 02-23-2025 Telephone encounter Marcia Farrell APRN.CNM Work Phone: OB/Gynecology Comment on above: Orders Start: 02-23-2025 End: 02-23-2025 Patient encounter procedure Marcia Farrell APRN.CNM Work Phone: OB/Gynecology Comment on above: 20 weeks gestation o f (HCC) (Primary Dx); Hx of delivery, currently (HCC); Supervision of high risk , antepartum ([facility]); Urinary tract infection without hematuria, site unspecified Hx of delive ry, currently (HCC) (Primary Dx); 20 weeks gestation of (HCC); Supervision of high risk , antepartum (HCC) Start: 02-23-2025 End: 02-23-[address] [facility] Facility:[facility] Start: 02-18-2025 End: 02-19-2025 Follow-up encounter Franklyn Beckford APRN.CNP Work Phone: [facility] Start: 02-18-2025 End: 02-22-2025 Telephone encounter Marcia Farrell APRN.CNM Work Phone: OB/Gynecology Comment on above: Care Start: 02-17-2025 End: 02-17-2025 Patient encounter procedure Esha Porter APRN.WELDING MACHINE OPERATOR FRICTION Work Phone: [facility] [place] Comment on above: Burning with malou on (Primary Dx) Start: 02-17-2025 End: 02-17-2025 ambulatory ESHA PORTER Facility:[facility] Start: 02-10-2025 End: 02-10-[address] [facility] Facility:[facility] Start: 01-26-2025 End: 01-26-2025 Patient encounter procedure Antonieta Mendoza MD Work Phone: OB/Gynecology Comment on above: Supervision of high risk , antepartum (HCC) (Primary Dx); Hx of delivery, currently (HCC); Family history of [place]'s disease; 16 weeks gestation of (HCC) History of d elivery, currently (HCC) (Primary Dx); Encounter for screening for malformation using ultrasound ([facility]); 16 weeks gestation of (HCC) Start: 01-26-2025 End: 01-26-2025 ambulatory SCOTT ALCAZAR Facility:[facility] Start: 12-29-2024 End: 12-29-[address] [facility] Facility:[facility] Start: 12-28-2024 End: 12-28-2024 Patient encounter procedure [employer] Monitor [facility] Comment on above: Encounter for antena rachel screening for malformation (HCC) (Primary Dx); 8 weeks gestation of (HCC) 12 weeks gestation o f (HCC) (Primary Dx); History of delivery, currently (HCC) Family history of [place]'s disease (Primary Dx); Supervision of high risk , antepartum (HCC); Hx of delivery, currently ([facility]) Start: 12-28-2024 End: 12-28-[address] [facility] Facility:[facility] Start: 12-14-2024 End: 12-14-2024 Telephone encounter Paola Lexington WELDING MACHINE OPERATOR FRICTION Work Phone: OB/Gynecology Comment on above: Orders Start: 12-02-2024 End: 12-02-2024 Telephone encounter Nurse [employer] Monitor Chen Solorio Work Phone: Obstetrics/Gynecology Comment on above: PRAF Start: 11-30-2024 End: 01-30-2025 Follow-up encounter Paola Hill APRN.CNP Work Phone: OB/Gynecology Start: 11-30-2024 End: 11-30-2024 Patient encounter procedure Paola Lexington MACIEL.WELDING MACHINE OPERATOR FRICTION Work Phone: OB/Gynecology Comment on above: Supervision of high risk , antepartum (HCC) (Primary Dx); Hx of delivery, currently (HCC); 8 weeks gestation of (HCC); Screen for STD (sexually transmitted disease); Screening for cervical cancer; Special screening examination for human papillomavirus (HPV); Nausea/vomiting in (HCC) Start: 11-30-2024 End: 11-30-2024 ambulatory PAOLAADRIANA HILL Facility:[facility] Start: 11-25-2024 End: 12-14-2024 Telephone encounter Paola Hill APRN.CNP Work Phone: OB/Gynecology Start: 11-24-2024 End: 11-24-2024 ambulatory [facility] Facility:[facility] Start: 11-14-2024 End: 11-14-2024 Patient encounter procedure Ann Marie Ariza APRN.CNP Work Phone: [facility] Comment on above: Acute midline low ba ck pain without sciatica (Primary Dx) Start: 11-14-2024 End: 11-14-2024 ambulatory ANN MARIE ARIZA Facility:[facility] Start: 11-11-2024 End: 11-11-2024 Emergency department patient visit Dr. Melissa Cabezas MD Work Phone: -Emergency Department Work Phone: Start: 11-10-2024 End: 01-10-2025 Follow-up encounter Reji Ding MD Work Phone: OB/Gynecology Start: 11-09-2024 End: 11-09-2024 Patient encounter procedure [employer] Monitor [facility] [employer] Work Phone: OB/Gynecology Comment on above: History of ectopic p regnancy; Encounter for test, result positive (HCC) Start: 11-09-2024 End: 11-09-2024 ambulatory REJI DING Facility:[facility] Start: 11-08-2024 End: 11-08-2024 Patient encounter procedure Allen Wilson 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 FRICTION Work Phone: [facility] Comment on above: Acute midline low ba ck pain without sciatica (Primary Dx) Start: 11-08-2024 End: 11-08-2024 ambulatory ALLEN STEVE Facility:[facility] Start: 11-05-2024 End: 11-05-2024 ambulatory [facility] Facility:[facility] Start: 10-29-2024 End: 10-29-2024 [facility] Facility:[facility] Start: 10-28-2024 End: 12-28-2024 Follow-up encounter Marcia Farrell CUSTOMER SALES DISTRIBUTOR.CNM Work Phone: OB/Gynecology Start: 10-27-2024 End: 10-27-2024 [facility] Start: 10-25-2024 End: 12-25-2024 Follow-up encounter Marcia Farrell CUSTOMER SALES DISTRIBUTOR.CNM Work Phone: OB/Gynecology Start: 10-25-2024 End: 10-25-2024 Patient encounter procedure Marcia Farrell CUSTOMER SALES DISTRIBUTOR.CNM Work Phone: OB/Gynecology Comment on above: Encounter for pregna ncy test, result positive (HCC) (Primary Dx); History of ectopic Start: 10-25-2024 End: 10-25-[address] [facility] Facility:[facility] Start: 10-15-2024 End: 12-15-2024 Follow-up encounter Lance Gill MD Work Phone: [facility] Start: 10-14-2024 End: 10-14-2024 ambulatory ODETTE LINDSAY Facility:[facility] Start: 10-14-2024 End: 10-14-2024 Patient encounter procedure Nilda Castellanos 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 FRICTION Work Phone: [facility] Comment on above: Nausea vomiting and diarrhea (Primary Dx); Generalized abdominal pain Start: 08-24-2024 End: 10-24-2024 Follow-up encounter Miky PRATHER Work Phone: [facility] Start: 08-24-2024 End: 08-24-2024 ambulatory [facility] Facility:[facility] Start: 08-24-2024 End: 08-24-2024 Patient encounter procedure Nildanii Castellanos APRN.WELDING MACHINE OPERATOR FRICTION Work Phone: [facility] Comment on above: URI, acute (Primary Dx); Nausea; Viral illness Start: 08-18-2024 End: 08-18-2024 [facility] Facility:[facility] Start: 08-18-2024 End: 08-18-2024 Patient encounter procedure Marcia Farrell APRN.CNConsuelo Work Phone: OB/Gynecology Comment on above: Missed menses (Prima ry Dx); Patient desires Start: 05-06-2024 End: 05-06-2024 Emergency department patient visit Scott Daniel Facility:[facility] Start: 04-01-2024 End: 04-01-2024 ambulatory Elena Robertson Facility:[facility] Start: 04-01-2024 End: 04-01-2024 Office outpatient visit 25 minutes Elena Robertson MD Work Phone: OB/Gynecology Comment on above: 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) Start: 03-31-2024 End: 04-02-2024 ambulatory Marcia Farrell APRN.CNM Work Phone: OB/Gynecology Comment on above: LABs Start: 03-31-2024 End: 04-02-2024 E-mail encounter from caregiver Marcia Farrell APRN.CNM Work Phone: OB/Gynecology Start: 03-26-2024 End: 03-26-2024 Patient encounter procedure Marcia Farrell APRN.CNM Work Phone: OB/Gynecology Comment on above: Vaginal spotting (Pr imary Dx); Threatened miscarriage in early ; Encounter for test, result positive; Bleeding in early ; History of delivery Start: 03-19-2024 End: 03-19-2024 ambulatory Emg 850) Neurology Comment on above: EMG Start: 03-19-2024 End: 03-19-2024 Patient encounter procedure Emg 2 Neur Jonathon (Max Weight: 850) Neurology Start: 03-11-2024 End: 03-11-2024 Patient encounter procedure Sanjana Pugh DO Work Phone: Orthopaedics Comment on above: Bilateral carpal roxy blanca syndrome (Primary Dx) Start: 12-14-2023 End: 12-14-2023 Emergency department patient visit [facility] Facility:[facility] Start: 10-09-2023 End: 10-09-2023 Emergency department patient visit [facility]Emergency Department Work Phone: Start: 10-09-2023 End: 10-09-2023 Patient encounter procedure Apolonia Wilson APRN.WELDING MACHINE OPERATOR FRICTION Work Phone: [facility] Comment on above: Headache, unspecifie d headache type (Primary Dx); Dehydration Start: 09-22-2023 Telephone encounter Esha Porter APRN.WELDING MACHINE OPERATOR FRICTION Work Phone: [facility] Comment on above: Results Start: 09-20-2023 End: 09-20-2023 Patient encounter procedure Miky PRATHER Work Phone: [facility] Comment on above: Burning with urinati on (Primary Dx) Start: 08-22-2023 End: 08-22-2023 Patient encounter procedure Miky PRATHER Work Phone: [facility] Comment on above: Skin infection (Prim emmy Dx) Start: 03-23-2023 Telephone encounter Esha Porter APRN.WELDING MACHINE OPERATOR FRICTION Work Phone: [facility] Comment on above: Results Start: 03-22-2023 End: 03-22-2023 Patient encounter procedure Tasneem Ham APRN.CNP Work Phone: [facility] Comment on above: Burning with urinati on (Primary Dx) Start: 02-12-2023 ambulatory Antonieta Mendoza MD Work Phone: OB/Gynecology Comment on above: Possible herpes outb reak Start: 02-06-2023 End: 02-06-2023 Subsequent hospital visit by physician [facility] Work Phone: Radiology Comment on above: Pelvic pain in femal e [R10.2] Start: 01-30-2023 ambulatory Pricila CORCORAN RN.WELDING MACHINE OPERATOR FRICTION Work Phone: OB/Gynecology Comment on above: Intense bleeding and cramping Start: 01-30-2023 Telephone encounter Antonieta Mendoza MD Work Phone: OB/Gynecology Comment on above: Results Start: 01-30-2023 End: 01-30-2023 Patient encounter procedure Antonieta Mendoza MD Work Phone: OB/Gynecology Comment on above: Pelvic pain in femal e (Primary Dx); Irregular menstrual cycle; Vaginal bleeding Start: 01-16-2023 End: 01-16-2023 Patient encounter procedure Pricila Vergara APRN.WELDING MACHINE OPERATOR FRICTION Work Phone: OB/Gynecology Comment on above: Missed menses (Prima ry Dx) Start: 01-01-2023 End: 01-01-2023 Emergency department patient visit [facility]Emergency Department Work Phone: Start: 12-26-2022 Telephone encounter Miky PRATHER Work Phone: [facility] Comment on above: Results Start: 12-25-2022 End: 12-25-2022 Patient encounter procedure Nilda Castellanos APRN.WELDING MACHINE OPERATOR FRICTION Work Phone: [facility] Comment on above: Viral illness (Prima ry Dx) Start: 07-05-2022 End: 07-05-2022 Office outpatient visit 25 minutes Yosi Payne APRN.WELDING MACHINE OPERATOR FRICTION Work Phone: [facility] Comment on above: Pharyngitis, unspeci fied etiology (Primary Dx) Start: 05-21-2022 End: 05-21-2022 Patient encounter procedure Jessica Monte APRN.WELDING MACHINE OPERATOR FRICTION Work Phone: [facility] Comment on above: Urinary frequency (P rimary Dx); Burning with urination Start: 03-15-2022 Chart abstracting Elena KelloggRn ) Angel [facility] [id number] Start: 02-18-2022 Telephone encounter Pricila goetz APRN.WELDING MACHINE OPERATOR FRICTION Work Phone: OB/Gynecology Comment on above: Results Start: 02-15-2022 Telephone encounter Pricila goetz APRN.WELDING MACHINE OPERATOR FRICTION Work Phone: OB/Gynecology Comment on above: Results Start: 02-14-2022 End: 02-14-2022 Patient encounter procedure Pricila Vergara APRN.WELDING MACHINE OPERATOR FRICTION Work Phone: OB/Gynecology Comment on above: Burning with urinati on (Primary Dx); Screening examination for STD (sexually transmitted disease) Start: 01-01-2022 Telephone encounter Marcia lunsford CUSTOMER SALES DISTRIBUTOR.CNM Work Phone: OB/Gynecology Comment on above: Results Start: 12-28-2021 End: 12-28-2021 Patient encounter procedure Marcia Farrell CUSTOMER SALES DISTRIBUTOR.CNConsuelo Work Phone: OB/Gynecology Comment on above: Screening examinatio n for STD (sexually transmitted disease) (Primary Dx); Folliculitis Start: 12-28-2021 End: 12-28-2021 Subsequent hospital visit by physician [facility] [place] Work Phone: Radiology Comment on above: Injury of left ankle , initial encounter [S99.912A] Start: 12-28-2021 End: 12-28-2021 Patient encounter procedure Yosi Payne APRN.WELDING MACHINE OPERATOR FRICTION Work Phone: [facility] Comment on above: Acute pain of left k nee (Primary Dx); Injury of left ankle, initial encounter Start: 12-12-2021 Curly Sethi Work Phone: OB/Gynecology Comment on above: Refill Request Start: 02-04-2019 End: 08-06-2019 Patient requested procedure Sanjana Lexy ABARCA Work Phone: [facility] Procedures Date Procedure Procedure Detail Performing Clinician Start: 03-22-2025 Urnls dip stick/tabl et rgnt auto w/o microscopy Nilda Jean CUSTOMER SALES DISTRIBUTOR.CNM Work Phone: Start: 03-11-2025 Culture bacterial quanttative colony count urine Nilda Jean CUSTOMER SALES DISTRIBUTOR.CNM Work Phone: Start: 03-11-2025 Us preg uterus after 1st trimest / gestation Marcia Farrell CUSTOMER SALES DISTRIBUTOR.CNM Work Phone: Start: 02-23-2025 Us preg uterus after 1st trimest / gestation Marcia Farrell CUSTOMER SALES DISTRIBUTOR.CNM Work Phone: Start: 02-17-2025 Urnls dip stick/tabl et rgnt auto w/o microscopy Esha Porter 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 FRICTION Work Phone: Start: 01-26-2025 Us preg uterus after 1st trimest / gestation Scott Alcazar MD Work Phone: Start: 12-29-2024 Antibody screen ODETTE NAPIER Comment on above: Order Comment: Speci men Type: FLUID SPECIMEN Ordering Facility: [facility] Address: [address] [place] [address] Performed By: #### L [id number] #### [facility] CLIA [id number] [address] [place] [address] [place] [address] [place] Start: 12-28-2024 Us preg uterus after 1st trimest / gestation Paola Hill 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 FRICTION Work Phone: Start: 11-30-2024 Us uterus l imited 1/> fetuses Paola Lexington 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 FRICTION Work Phone: Start: 11-14-2024 Urnls dip stick/tabl et rgnt auto w/o microscopy [facility] Provider Start: 11-11-2024 Methadone measuremen t, urine Dr. Melissa Cabezas MD Work Phone: Start: 11-11-2024 Urnls dip stick/tabl et reagent auto microscopy Dr. Melissa Cabezas MD Work Phone: Start: 11-11-2024 Complete ultrasound of kidneys and bladder Dr. Melissa Cabezas MD Work Phone: Start: 11-11-[address] Melissa Cabezas MD Work Phone: Start: 11-09-2024 Us preg uterus after 1st trimest 07/07 gestation Reji Ding MD Work Phone: Start: 10-25-2024 UA DIP,URINE HCG (POC) Marcia Farrell CUSTOMER SALES DISTRIBUTOR.CNM Work Phone: Start: 08-24-2024 STREP A MOLECULAR (POC) Nilda Castellanos 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 FRICTION Work Phone: Start: 08-18-2024 UA DIP,URINE HCG (POC) Marcia Plotrene CUSTOMER SALES DISTRIBUTOR.CNM Work Phone: Start: 03-26-2024 UA DIP,URINE HCG (POC) Marcia Plotrene CUSTOMER SALES DISTRIBUTOR.CNM Work Phone: Start: 03-19-2024 Nerve conduction corby dies 5-6 studies Alecia Lexy ABARCA Work Phone: Start: 10-09-2023 SARS-CoV-2, Influenz a & RSV (PCR) Start: 09-20-2023 Urnls dip stick/tabl et rgnt auto w/o microscopy Miky PRATHER Work Phone: Start: 03-22-2023 Urnls dip stick/tabl et rgnt auto w/o microscopy Esha Porter 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 FRICTION Work Phone: Start: 02-06-2023 Us transvaginal Antonieta Mendoza MD Work Phone: Start: 01-30-2023 Urine test visual color cmprsn meths Antonieta Mendoza MD Work Phone: Start: 01-16-2023 Urine test visual color cmprsn meths Pricila Vergara 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 FRICTION Work Phone: Start: 12-25-2022 COVID WITH FLUA+B, ROUTINE Inlda Castellanos 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 FRICTION Work Phone: Start: 07-05-2022 STREP A MOLECULAR (POC) Yosi Payne 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 FRICTION Work Phone: Start: 05-21-2022 Urnls dip stick/tabl et rgnt auto w/o microscopy Ann Marie Ariza 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 FRICTION Work Phone: Start: 02-14-2022 Urnls dip stick/tabl et rgnt auto w/o microscopy Pricila Vergara 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 FRICTION Work Phone: Start: 12-28-2021 Radex ankle complete minimum 3 views Yosi Payne 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 FRICTION Work Phone: Start: 05-08-2021 Antibody screen Comment on above: Performed By: #### T SPN #### [place] [id number] Start: 05-05-2021 Antibody screen Comment on above: Performed By: #### T SPN #### [place] [id number] Start: 05-02-2021 Antibody screen Comment on above: Performed By: #### T SPN ####[id number] Start: 03-15-2021 Antibody screen Comment on above: Performed By: #### T SPN ####[place] [id number] Plan of Treatment Date Care Activity Detail Author Start: 2077 RSV Vaccine (1 - 1-d ose 75+ series) RSV Vaccine (1 - 1-dose 75+ series) [facility] Start: 04-25-2031 Urine microalbumin profile [facility] Start: 12-01-2027 Screening for malign ant neoplasm of cervix Cervical Cancer [facility] [facility] Start: 11-30-2025 GC (Gonorrhea) Screening (18-24) GC (Gonorrhea) Screening (18-24) [facility] Start: 11-30-2025 Screening for Chlamy ruby trachomatis Chlamydia Screening (18-24) [facility] Start: 05-13-2025 RSV Vaccine (1 - Ris k 1-dose series) RSV Vaccine (1 - Risk 1-dose series) [facility] Start: 04-08-2025 End: 04-08-2025 ambulatory 04/08/2025 2:15 PM EDT Results Only [facility] [address] [place] [address] [facility] Start: 04-08-2025 End: 04-08-2025 Patient encounter procedure 04/08/2025 1:15 PM EDT Routine Office Visit OB/Gynecology [address] [place] [address] Marcia Farrell APRN.CN [address] [place] [address] Ob OB/Gynecology Comment on above: Ob Start: 03-26-2025 GC (Gonorrhea) Screening (18-24) GC (Gonorrhea) Screening (18-24) [facility] Start: 03-26-2025 Screening for Chlamy ruby trachomatis Chlamydia Screening (18-24) [facility] Start: 03-23-2025 End: 03-23-2025 Patient encounter procedure OB/Gynecology Comment on above: OB OB- urine CATHERINE Start: 03-14-2025 End: 06-13-2025 TSH W/REFLEX FT4 [facility] Work Phone: Comment on above: Expected: 03/14/2025 , Expires: 06/13/2025 Start: 03-11-2025 End: 06-10-2025 ANEMIA REFLEX PANEL ANEMIA REFLEX PANEL Lab Routine Supervision of high risk in second trimester (HCC) 23 weeks gestation of (HCC) Expected: 03/11/2025, Expires: 06/10/2025 [facility] Comment on above: Expected: 03/11/2025 , Expires: 06/10/2025 Start: 03-11-2025 End: 03-11-2026 GESTATIONAL GLUCOSE SCREEN, 1-HOUR, 50 GRAM, NON-FASTING GESTATIONAL GLUCOSE SCREEN, 1-HOUR, 50 GRAM, NON-FASTING Lab Routine Supervision of high risk in second trimester ([facility]) 23 weeks gestation of ([facility]) Screening for diabetes mellitus Expected: 03/11/2025, Expires: 03/11/2026 [facility] Work Phone: Comment on above: Expected: 03/11/2025 , Expires: 03/11/2026 Start: 03-11-2025 End: 03-11-2026 SYPHILIS TREPONEMAL W/REFLEX SYPHILIS TREPONEMAL W/REFLEX Lab Routine Supervision of high risk in second trimester (HCC) 23 weeks gestation of ([facility]) Expected: 03/11/2025, Expires: 03/11/2026 [facility] Comment on above: Expected: 03/11/2025 , Expires: 03/11/2026 Start: 03-11-2025 End: 03-11-2025 Patient encounter procedure [facility] Comment on above: Cervical Length US/OB Start: 03-07-2025 Influenza vaccination [facility] Start: 02-23-2025 End: 02-23-2025 Patient encounter procedure [facility]aternal [facility] Comment on above: Anatomy Anatomy/OB Start: 02-10-2025 End: 02-10-2025 Patient encounter procedure [facility]aternal [facility] Comment on above: Cervical length OB Start: 02-09-2025 End: 02-09-2025 Patient encounter procedure 02/09/2025 10:00 AM EDT Routine Office Visit OB/Gynecology [address] [place], [place] [id number] Marcia Farrell APRN.CNM [address] [place] [address] OB OB/Gynecology Comment on above: OB Start: 01-26-2025 End: 01-26-2025 Patient encounter procedure Maternal Medicine Comment on above: History of d elivery, currently ([facility]) [O09.899] OB Start: 12-29-2024 End: 12-29-2024 ambulatory 12/29/2024 12:30 PM EDT Results Only [place] [facility] [address] [place] [address] [place] [facility] Start: 12-28-2024 End: 12-28-2025 OBSTETRIC ULTRASOUND WHI OBSTETRIC ULTRASOUND WHI Anc Imaging Routine History of delivery, currently ([facility]) Expected: 12/28/2024, Expires: 12/28/2025 [facility] Work Phone: Comment on above: Expected: 12/28/2024 , Expires: 12/28/2025 Start: 12-28-2024 End: 12-28-2024 Patient encounter procedure Maternal Medicine Comment on above: SHAUN and US MFM follow up Start: 11-30-2024 End: 03-01-2025 ANEMIA REFLEX PANEL ANEMIA REFLEX PANEL Lab Routine 8 weeks gestation of ([facility]) Expected: 11/30/2024, Expires: 03/01/2025 [facility] Work Phone: Comment on above: Expected: 11/30/2024 , Expires: 03/01/2025 Start: 11-30-2024 End: 03-01-2025 Hemoglobin A1c in Blood HEMOGLOBIN A1C Lab Routine 8 weeks gestation of ([facility]) Expected: 11/30/2024, Expires: 03/01/2025 [facility] Comment on above: Expected: 11/30/2024 , Expires: 03/01/2025 Start: 11-30-2024 End: 03-01-2025 Hepatitis B virus surface Ag [Presence] in Serum HEPATITIS B SURFACE ANTIGEN Lab Routine 8 weeks gestation of ([facility]) Expected: 11/30/2024, Expires: 03/01/2025 [facility] Comment on above: Expected: 11/30/2024 , Expires: 03/01/2025 Start: 11-30-2024 End: 03-01-2025 Hepatitis C virus Ab [Presence] in Serum HEPATITIS C ANTIBODY IA WITH CONFIRMATION Lab Routine 8 weeks gestation of ([facility]) Expected: 11/30/2024, Expires: 03/01/2025 [facility] Comment on above: Expected: 11/30/2024 , Expires: 03/01/2025 Start: 11-30-2024 End: 03-01-2025 HIV 1+2 Ab [Presence] in Serum or Plasma by Immunoassay HIV 1/2 COMBO WITH REFLEX TO DIFFERENTIATION Lab Routine 8 weeks gestation of ([facility]) Expected: 11/30/2024, Expires: 03/01/2025 [facility] Comment on above: Expected: 11/30/2024 , Expires: 03/01/2025 Start: 11-30-2024 End: 11-30-2025 OBSTETRIC ULTRASOUND WHI OBSTETRIC ULTRASOUND WHI Anc Imaging Routine 8 weeks gestation of ([facility]) Expected: 11/30/2024, Expires: 11/30/2025 [facility] Comment on above: Expected: 11/30/2024 , Expires: 11/30/2025 Start: 11-30-2024 End: 03-01-2025 RUBELLA IGG ANTIBODY RUBELLA IGG ANTIBODY Lab Routine 8 weeks gestation of ([facility]) Expected: 11/30/2024, Expires: 03/01/2025 [facility] Comment on above: Expected: 11/30/2024 , Expires: 03/01/2025 Start: 11-30-2024 End: 03-01-2025 SYPHILIS TREPONEMAL W/REFLEX SYPHILIS TREPONEMAL W/REFLEX Lab Routine 8 weeks gestation of ([facility]) Expected: 11/30/2024, Expires: 03/01/2025 [facility] Comment on above: Expected: 11/30/2024 , Expires: 03/01/2025 Start: 11-30-2024 End: 03-01-2025 TYPE + SCREEN TYPE + SCREEN Blood Bank Routine 8 weeks gestation of ([facility]) Expected: 11/30/2024, Expires: 03/01/2025 [facility] Comment on above: Expected: 11/30/2024 , Expires: 03/01/2025 Start: 11-30-2024 End: 11-30-2024 Patient encounter procedure 11/30/2024 8:15 AM EDT Initial Office Visit OB/Gynecology [address] [place] [address] Paola Hill APRN.WELDING MACHINE OPERATOR FRICTION [address] [place] [address] New OB OB/Gynecology Comment on above: New OB Start: 11-16-2024 End: 11-16-2024 ambulatory 11/16/2024 8:30 AM EDT Results Only [place] [facility] Laboratory [address] [place] [address] [place] [facility] Start: 11-15-2024 End: 11-15-2024 Patient encounter procedure 11/15/2024 7:45 AM EDT Appointment Radiology [address] [place] [address] Acute midline low back pain without sciatica [M54.50] Radiology Comment on above: Acute midline low ba ck pain without sciatica [M54.50] Start: 11-11-2024 [facility] Start: 11-10-2024 End: 11-10-2024 ambulatory 11/10/2024 8:45 AM EDT Results Only [place] [facility] Laboratory [address] [place] [address] [place] [facility] Start: 11-09-2024 End: 11-09-2024 Patient encounter procedure 11/09/2024 9:30 AM EDT Office Visit OB/Gynecology [address] [place] [address] [facility] Monitor [facility] [address] [place] [address] location/dating/viability OB/Gynecology Comment on above: location/dating/viab ility Start: 10-25-2024 End: 10-25-2024 Patient encounter procedure 10/25/2024 8:00 AM EDT Routine Office Visit OB/Gynecology [address] [place] [address] Marcia Farrell APRN.CNM [address] [place] [address] Taken 6 tests, all are positive OB/Gynecology Comment on above: Taken 6 te sts, all are positive Start: 04-09-2024 End: 04-09-2024 Patient encounter procedure 04/09/2024 1:45 PM EDT Initial Office Visit OB/Gynecology [address] [place] [address] Sharmila Jimenez APRN.WELDING MACHINE OPERATOR [employer]RICTION [address] [place] [address] NOB OB/Gynecology Comment on above: NOB Start: 04-07-2024 End: 04-07-2024 ambulatory 04/07/2024 1:30 PM EDT Results Only [place] [facility] Laboratory [address] [place] [address] [place] [facility] Start: 04-05-2024 End: 04-05-2024 ambulatory 04/05/2024 2:15 PM EDT Results Only [place] [facility] [address] [place] [address] [place] [facility] Start: 03-29-2024 End: 03-29-2024 ambulatory 03/29/2024 1:00 PM EDT Results Only [place] [facility] [address] [place] [address] [place] [facility] Start: 03-26-2024 End: 06-25-2024 TYPE + SCREEN [facility] Comment on above: Expected: 03/26/2024 , Expires: 06/25/2024 Start: 03-19-2024 End: 03-19-2024 ambulatory 03/19/2024 2:15 PM EDT Procedure Neurology [address] [place] [address] Bilateral carpal tunnel syndrome [G56.03] Neurology Comment on above: 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] Start: 03-07-2024 Covid-19 Vaccine ( season) Covid-19 Vaccine ( season) [facility] Start: 03-07-2024 Covid-19 Vaccine ( season) Covid-19 Vaccine ( season) [facility] Start: 03-07-2024 Influenza vaccination [facility] Start: 10-09-2023 [facility] Start: 08-12-2023 CHLAMYDIA SCREENING (18-24) CHLAMYDIA SCREENING (18-24) [facility] Start: 08-12-2023 GC (GONORRHEA) SCREENING (18-24) GC (GONORRHEA) SCREENING (18-24) [facility] Start: 08-12-2023 Screening for Chlamy ruby trachomatis Chlamydia Screening (18) [facility] Start: 2023 Screening for malign ant neoplasm of cervix [facility] Start: 07-07-2023 Behavioral Health Screening Behavioral Health Screening [facility] Start: 07-07-2023 Depression Assessment Depression Ass essment [facility] Start: 05-21-2023 CHLAMYDIA SCREENING (18-24) CHLAMYDIA SCREENING (18-24) [facility] Start: 05-21-2023 GC (GONORRHEA) SCREENING (18-24) GC (GONORRHEA) SCREENING (18-24) [facility] Start: 03-22-2023 End: 05-22-2023 Bacteria identified in Urine by Culture URINE CULTURE Microbiology Routine Burning with urination Expected: 03/22/2023, Expires: 05/22/2023 [facility] Work Phone: Comment on above: Expected: 03/22/2023 , Expires: 05/22/2023 Start: 03-07-2023 Covid-19 Vaccine ( season) Covid-19 Vaccine ( season) [facility] Start: 03-07-2023 Influenza vaccination C [facility] Start: 02-14-2023 CHLAMYDIA SCREENING (18-24) CHLAMYDIA SCREENING (18-24) [facility] Start: 02-14-2023 GC (GONORRHEA) SCREENING (18-24) GC (GONORRHEA) SCREENING (18-24) [facility] Start: 01-30-2023 End: 04-01-2023 Choriogonadotropin.beta subunit [Units/volume] in Serum or Plasma [facility] Work Phone: Comment on above: Expected: 01/30/2023 , Expires: 04/01/2023 Start: 01-16-2023 End: 03-18-2023 Choriogonadotropin.beta subunit [Units/volume] in Serum or Plasma HCG QUANTITATIVE Lab Routine Missed menses Expected: 01/16/2023, Expires: 03/18/2023 [facility] Work Phone: Comment on above: Expected: 01/16/2023 , Expires: 03/18/2023 Start: 12-28-2022 CHLAMYDIA SCREENING (18-24) CHLAMYDIA SCREENING (18-24) [facility] Start: 12-28-2022 GC (GONORRHEA) SCREENING (18-24) GC (GONORRHEA) SCREENING (18-24) [facility] Start: 07-07-2022 DEPRESSION ASSESSMENT DEPRESSION ASS ESSMENT [facility] Start: 05-21-2022 End: 07-21-2022 Chlamydia trachomatis+Neisseria gonorrhoeae DNA [Presence] in Urine by AQUILINO with probe detection GC/CHLAMYDIA AMPLIF, URINE Microbiology Routine Burning with urination Expected: 05/21/2022, Expires: 07/21/2022 [facility] Work Phone: Comment on above: Expected: 05/21/2022 , Expires: 07/21/2022 Start: 05-02-2022 CHLAMYDIA SCREENING (18-24) CHLAMYDIA SCREENING (18-24) [facility] Start: 05-02-2022 GC (GONORRHEA) SCREENING (18-24) GC (GONORRHEA) SCREENING (18-24) [facility] Start: 03-07-2022 Influenza vaccination [facility] Start: 12-28-2021 End: 02-27-2022 Trichomonas vaginalis Ag [Presence] in Genital specimen by Immunoassay TRICHOMONAS PREP/ANTIGEN Microbiology Routine Screening examination for STD (sexually transmitted disease) Expected: 12/28/2021, Expires: 02/27/2022 [facility] Work Phone: Comment on above: Expected: 12/28/2021 , Expires: 02/27/2022 Start: 07-07-2021 DEPRESSION ASSESSMENT DEPRESSION ASS ESSMENT [facility] Start: 08-04-2020 Meningococcal B Vacc ine (2 of 2 - Bexsero SCDM 2-dose series) Meningococcal B Vaccine (2 of 2 - Bexsero SCDM 2-dose series) [facility] Start: 2020 Anxiety Screening Anxiety Screening [facility] Start: 2020 Depression Screening Depression Scre ening [facility] Start: 06-20-2020 HEPATITIS A (2 of 2 - Risk 2-dose series) HEPATITIS A (2 of 2 - Risk 2-dose series) [facility] Start: 06-20-2020 Hepatitis A Vaccine (2 of 2 - Risk 2-dose series) Hepatitis A Vaccine (2 of 2 - Risk 2-dose series) [facility] Start: 06-20-2020 HPV VACCINE (3 - 3-d ose series) HPV VACCINE (3 - 3-dose series) [facility] Start: 03-01-2020 Meningococcal B Vaccine: Consider Based On Risk (2 of 2 - Risk Bexsero 2-dose series) Meningococcal B Vaccine: Consider Based On Risk (2 of 2 - Risk Bexsero 2-dose series) [facility] Start: 03-01-2020 MENINGOCOCCAL B: Consider based on risk (2 of 2 - Risk Bexsero 2-dose series) MENINGOCOCCAL B: Consider based on risk (2 of 2 - Risk Bexsero 2-dose series) [facility] Start: 2016 PEDS TO ADULT TRANSITION ANNUAL ASSESSMENT PEDS TO ADULT TRANSITION ANNUAL ASSESSMENT [facility] Start: 2014 Adult depression screening assessment DEPRESSION SCREENING [facility] Start: 2014 PEDS TO ADULT TRANSITION INITIAL DISCUSSION PEDS TO ADULT TRANSITION INITIAL DISCUSSION [facility] Start: 2013 HPV VACCINE (1 - 2-d ose series) HPV VACCINE (1 - 2-dose series) [facility] Start: 2012 MENINGOCOCCAL B: Consider based on risk (1 of 2 - Risk Bexsero 2-dose series) MENINGOCOCCAL B: Consider based on risk (1 of 2 - Risk Bexsero 2-dose series) [facility] Start: 2007 COVID-19 VACCINE (#1) COVID-19 VACCI NE (#1) [facility] Start: 01-19-2003 COVID-19 VACCINE (#1) COVID-19 VACCI NE (#1) [facility] Start: 2002 HEPATITIS B (1 of 3 - 3-dose series) HEPATITIS B (1 of 3 - 3-dose series) [facility] Bacteria identified in Urine by Culture URINE CULTURE Microbiology Routine Burning with urination Ordered: 02/14/2022 [facility] Work Phone: Comment on above: Ordered: 02/14/2022 Bacteria identified in Urine by Culture URINE CULTURE Microbiology Routine Urinary frequency Burning with urination Ordered: 05/21/2022 [facility] Work Phone: Comment on above: Ordered: 05/21/2022 Bacteria identified in Urine by Culture URINE CULTURE Microbiology Routine Burning with urination 09/20/2023 1:48 PM EDT [facility] Work Phone: Bacteria identified in Urine by Culture BACTERIAL CULTURE, URINE Microbiology Routine 8 weeks gestation of (HCC) Ordered: 11/30/2024 [facility] Comment on above: Ordered: 11/30/2024 Bacteria identified in Urine by Culture BACTERIAL CULTURE, URINE Microbiology Routine Burning with urination 02/17/2025 11:11 AM EDT [facility] Work Phone: Bacteria identified in Urine by Culture BACTERIAL CULTURE, URINE Microbiology Routine Supervision of high risk in second trimester (HCC) 24 weeks gestation of (HCC) Urinary tract infection without hematuria, site unspecified 03/22/2025 10:36 AM EDT [facility] Work Phone: BACTERIAL VAGINOSIS NAAT BACTERIAL VAGINOSIS NAAT Lab Routine Vaginal spotting 03/26/2024 2:20 PM EDT [facility] Chlamydia trachomatis+Neisseria gonorrhoeae DNA [Presence] in Unspecified specimen by AQUILINO with probe detection GC/CHLAMYDIA DNA DET Lab Routine Screening examination for STD (sexually transmitted disease) 12/28/2021 3:35 PM T [facility] Work Phone: Chlamydia trachomatis+Neisseria gonorrhoeae DNA [Presence] in Unspecified specimen by AQUILINO with probe detection GONORRHEA/CHLAMYDIA NAAT Lab Routine Vaginal spotting 03/26/2024 2:20 PM EDT [facility] Chlamydia trachomatis+Neisseria gonorrhoeae DNA [Presence] in Unspecified specimen by AQUILINO with probe detection GONORRHEA/CHLAMYDIA NAAT Lab Routine 8 weeks gestation of (HCC) Ordered: 11/30/2024 [facility] Comment on above: Ordered: 11/30/2024 Chlamydia trachomatis+Neisseria gonorrhoeae DNA [Presence] in Urine by AQUILINO with probe detection GC/CHLAMYDIA AMPLIF, URINE Microbiology Routine Screening examination for STD (sexually transmitted disease) Ordered: 02/14/2022 [facility] Work Phone: Comment on above: Ordered: 02/14/2022 End: 03-26-2025 Choriogonadotropin.beta subunit [Units/volume] in Serum or Plasma HCG QUANTITATIVE Lab Routine Vaginal spotting 2x per week for 10 Occurrences starting 03/26/2024 until 03/26/2025 [facility] Work Phone: Comment on above: 2x per week for 10 O ccurrences starting 03/26/2024 until 03/26/2025 Choriogonadotropin.b eta subunit [Units/volume] in Serum or Plasma HCG QUANTITATIVE Lab Routine Vaginal spotting 03/26/2024 2:25 PM EDT [facility] End: 10-25-2025 Choriogonadotropin.beta subunit [Units/volume] in Serum or Plasma HCG QUANTITATIVE Lab Routine Encounter for test, result positive (HCC) History of ectopic 2x per week for 8 Occurrences starting 10/25/2024 until 10/25/2025 [facility] Work Phone: Comment on above: 2x per week for 8 Oc currences starting 10/25/2024 until 10/25/2025 Choriogonadotropin.b eta subunit [Units/volume] in Serum or Plasma HCG QUANTITATIVE Lab Routine Encounter for test, result positive (HCC) History of ectopic 10/25/2024 8:38 AM EDT [facility] COVID & INFLUENZA A/ B & RSV PCR, ROUTINE COVID & INFLUENZA A/B & RSV PCR, ROUTINE Microbiology Routine URI, acute 08/24/2024 12:00 PM EST [facility] Work Phone: End: 03-11-2025 EMG(NEURO/NI) EMG(NEURO/NI) EMG Routine Bilateral carpal tunnel syndrome 1 Occurrences starting 03/11/2024 until 03/11/2025 [facility] Work Phone: Comment on above: 1 Occurrences starti ng 03/11/2024 until 03/11/2025 PAP TEST PAP TEST Lab [place] Screening for cervical cancer Special screening examination for human papillomavirus (HPV) Ordered: 11/30/2024 [facility] Comment on above: Ordered: 11/30/2024 Patient Education [facility] Work Phone: Patient referral [facility] Work Phone: T VAGINALIS AMPLIFICATION T VAGINALIS AMPLIFICATION Lab Routine Screening examination for STD (sexually transmitted disease) Ordered: 02/14/2022 [facility] Work Phone: Comment on above: Ordered: 02/14/2022 TRICHOMONAS VAGINALI S NAAT TRICHOMONAS VAGINALIS NAAT Lab Routine Screen for STD (sexually transmitted disease) Ordered: 11/30/2024 [facility] Comment on above: Ordered: 11/30/2024 End: 12-14-2025 US Kidney - bilateral and Urinary bladder US KIDNEY/BLADDER Radiology STAT Acute midline low back pain without sciatica 1 Occurrences starting 11/14/2024 until 12/14/2025 [facility] Work Phone: Comment on above: 1 Occurrences starti ng 11/14/2024 until 12/14/2025 End: 03-04-2024 Us transvaginal US FEMALE PELVIS TRANSVAG Radiology Routine Pelvic pain in female 1 Occurrences starting 02/03/2023 until 03/04/2024 [facility] Work Phone: Comment on above: 1 Occurrences starti ng 02/03/2023 until 03/04/2024 [facility] Immunizations Immunization Date Immunization Notes Care Provider [facility] 04-25-2021 tetanus toxoid, redu vincent diphtheria toxoid, and acellular pertussis vaccine, adsorbed Kamilla Porter MD Work Phone: [facility] 02-02-2020 Human Papillomavirus 9-valent vaccine Nilda Castellanos APRN.[facility] Work Phone: [facility] Work Phone: 02-02-2020 meningococcal B vacc ine, recombinant, OMV, adjuvanted Nilda Castellanos APRN.[facility] Work Phone: [facility] Work Phone: 12-20-2019 hepatitis A vaccine, pediatric/adolescent dosage, 2 dose schedule Nilda Castellanos APRN.[facility] Work Phone: [facility] Work Phone: 12-20-2019 Human Papillomavirus 9-valent vaccine Nilda Castellanos APRN.[facility] Work Phone: [facility] Work Phone: 12-20-2019 meningococcal polysaccharide (groups A, C, Y and W-135) diphtheria toxoid conjugate vaccine (MCV4P) Nilda Castellanos APRN.[facility] Work Phone: [facility] Work Phone: 06-22-2019 tetanus toxoid, redu vincent diphtheria toxoid, and acellular pertussis vaccine, adsorbed Kamilla Porter MD Work Phone: [facility] 02-20-2015 meningococcal polysaccharide (groups A, C, Y and W-135) diphtheria toxoid conjugate vaccine (MCV4P) Nilda Castellanos APRN.[facility] Work Phone: [facility] Work Phone: 02-20-2015 tetanus toxoid, redu vincent diphtheria toxoid, and acellular pertussis vaccine, adsorbed Nilda Castellanos APRN.[facility] Work Phone: [facility] Work Phone: 06-20-2008 diphtheria, tetanus toxoids and acellular pertussis vaccine, unspecified formulation Nilda Castellanos CUSTOMER SALES DISTRIBUTOR.[facility] Work Phone: [facility] Work Phone: 06-20-2008 measles, mumps and rubella virus vaccine Nilda Castellanos APRN.[facility] Work Phone: [facility] Work Phone: 06-20-2008 poliovirus vaccine, inactivated Nilda Castellanos 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 [employer] Work Phone: [facility] Work Phone: 06-20-2008 varicella virus vaccine Renay ica Castellanos CUSTOMER SALES DISTRIBUTOR.[facility] Work Phone: [facility] Work Phone: 05-17-2004 influenza virus vacc ine, whole virus Nilda Castellanos CUSTOMER SALES DISTRIBUTOR.[facility] Work Phone: [facility] Work Phone: 05-17-2004 influenza virus vacc ine, unspecified formulation Tasneem Ham CUSTOMER SALES DISTRIBUTOR.[facility] Work Phone: [facility] 11-21-2003 diphtheria, tetanus toxoids and acellular pertussis vaccine, unspecified formulation Nilda Castellanos CUSTOMER SALES DISTRIBUTOR.[facility] Work Phone: [facility] Work Phone: 11-21-2003 varicella virus vaccine Renay ica Castellanos CUSTOMER SALES DISTRIBUTOR.[facility] Work Phone: [facility] Work Phone: 07-25-2003 haemophilus influenz ae type b conjugate and Hepatitis B vaccine Nilda Castellanos CUSTOMER SALES DISTRIBUTOR.[facility] Work Phone: [facility] Work Phone: 07-25-2003 measles, mumps and rubella virus vaccine Nilda Castellanos CUSTOMER SALES DISTRIBUTOR.[facility] Work Phone: [facility] Work Phone: 07-25-2003 poliovirus vaccine, inactivated Nilda Castellanos CUSTOMER SALES DISTRIBUTOR.[facility] Work Phone: [facility] Work Phone: 06-16-2003 influenza virus vacc ine, whole virus Nilda Castellanos CUSTOMER SALES DISTRIBUTOR.[facility] Work Phone: [facility] Work Phone: 05-04-2003 diphtheria, tetanus toxoids and acellular pertussis vaccine, unspecified formulation Nilda Castellanos CUSTOMER SALES DISTRIBUTOR.[facility] Work Phone: [facility] Work Phone: 05-04-2003 haemophilus influenz ae type b vaccine, PRP-T conjugate Nilda Castellanos CUSTOMER SALES DISTRIBUTOR.[facility] Work Phone: [facility] Work Phone: 05-04-2003 pneumococcal conjuga te vaccine, 7 valent Nilda Castellanos CUSTOMER SALES DISTRIBUTOR.[facility] Work Phone: [facility] Work Phone: 02-15-2003 pneumococcal conjuga te vaccine, 7 valent Nilda Castellanos CUSTOMER SALES DISTRIBUTOR.[facility] Work Phone: [facility] Work Phone: 02-15-2003 poliovirus vaccine, inactivated Nilda Castellanos CUSTOMER SALES DISTRIBUTOR.[facility] Work Phone: [facility] Work Phone: 02-01-2003 diphtheria, tetanus toxoids and acellular pertussis vaccine, unspecified formulation Nilda Castellanos CUSTOMER SALES DISTRIBUTOR.[facility] Work Phone: [facility] Work Phone: 02-01-2003 haemophilus influenz ae type b vaccine, PRP-T conjugate Nilda Castellanos CUSTOMER SALES DISTRIBUTOR.[facility] Work Phone: [facility] Work Phone: 2002 pneumococcal conjuga te vaccine, 7 valent Nilda Castellanos CUSTOMER SALES DISTRIBUTOR.[facility] Work Phone: [facility] Work Phone: 2002 poliovirus vaccine, inactivated Nilda Castellanos CUSTOMER SALES DISTRIBUTOR.[facility] Work Phone: [facility] Work Phone: 2002 diphtheria, tetanus toxoids and acellular pertussis vaccine, unspecified formulation Nilda Castellanos CUSTOMER SALES DISTRIBUTOR.[facility] Work Phone: [facility] Work Phone: 2002 haemophilus influenz ae type b vaccine, PRP-T conjugate Nilda Castellanos CUSTOMER SALES DISTRIBUTOR.[facility] Work Phone: [facility] Work Phone: 2002 hepatitis B vaccine, pediatric or pediatric/adolescent dosage Nilda Castellanos 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 [employer] Work Phone: [facility] Work Phone: 2002 hepatitis B vaccine, pediatric or pediatric/adolescent dosage Nilda Castellanos 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 2014 Medicaid [id number] Unknown [id number] Unknown [id number] Unknown [id number] Unknown [id number] Unknown [id number] Social History Date Type Detail Facility Start: 02-04-2019 End: 03-26-2024 Tobacco smoking status NHIS Ex-smoker [facility] Work Phone: Start: 07-05-2018 End: 01-03-2019 History of tobacco use Current smoker [facility] Work Phone: Start: 07-05-2018 End: 01-03-2019 History of tobacco use Cigarette Smoker [facility] Work Phone: Start: 02-04-2019 End: 03-26-2024 Tobacco use and exposure Former smokeless tobacco user [facility] Work Phone: End: 01-31-2019 History of tobacco use Chews Tobacco [facility] Work Phone: Start: 08-14-2021 End: 03-14-2025 Alcohol intake Lifetime non-drinker (finding) [facility] Start: 02-04-2019 History SDOH Alcohol Frequency 1 [facility] Start: 11-01-2020 Education 11 [facility] Start: 2002 Sex Assigned At Not on file [facility] Start: 12-18-2021 End: 05-21-2022 Exposure to SARS-CoV-2 (event) Not sure [facility] Start: 2002 Sex Assigned At Female C [facility] Start: 01-01-2023 End: 10-09-2023 Tobacco smoking status NHIS Unknown if ever smoked [facility] Start: 11-11-2020 Cigarettes [facility] Start: 01-16-2023 End: 03-26-2024 History of Social function [facility] Work Phone: Start: 01-16-2023 End: 03-26-2024 Tobacco use panel [facility] Work Phone: Start: 02-04-2014 National Score (1-100), lower number is lower risk 70 [facility] Start: 08-12-2022 Gender identity Choose not to disclose [facility] Start: 08-12-2022 Sexual orientation Bisexual (finding ) [facility] How often to you hav e a drink containing alcohol? Never [facility] Work Phone: Start: 11-11-2024 Tobacco smoking stat us NHIS Smokes tobacco daily (finding) [facility] Start: 10-15-2024 [facility] NEGATED: Highlighted row [facility] Goals Date Patient Goal Desired Activity /State Personal health goal Functional Status Date Assessment Result Facility 05-10-2021 Are you deaf, or do you have serious difficulty hearing No 05/10/2021 2:39 PM EDT Padmaja Villalobos RN No [facility] 05-10-2021 Are you blind, or do you have serious difficulty seeing, even when wearing glasses No 05/10/2021 2:39 PM EDT Padmaja Villalobos RN No [facility] 05-10-2021 Do you have serious difficulty walking or climbing stairs No 05/10/2021 2:39 PM EDT Padmaja Villalobos, LIO No [facility] 05-10-2021 Do you have difficul ty dressing or bathing No 05/10/2021 2:39 PM EDT Padmaja Villalobos, LIO No [facility] 05-10-2021 Because of a physica l, mental, or emotional condition, do you have difficulty doing errands alone such as visiting a physician's office or shopping No 05/10/2021 2:39 PM EDT Padmaja Villalobos RN No [facility] Mental Status Date Assessment Result Facility 10-09-2023 Cognitive function Level Of Cons ciousness Awake;Alert;Appropriate;Fol lows Commands [facility] Work Phone: 01-01-2023 Cognitive function Level Of Cons ciousness Awake;Alert;Appropriate;Fol lows Commands [facility] Work Phone: 05-10-2021 Because of a physica l, mental, or emotional condition, do you have serious difficulty concentrating, remembering, or making decisions No 05/10/2021 2:39 PM EDT Padmaja Villalobos, LIO No [facility] Clinical Notes 02-13-2021 to 03-28-2025 Quick Notes - Nilda Jean APRN.[facility] - 03/22/2025 11:50 AM EDTPrenatal Quick Notes - Nilda Jean APRN.CN - 03/22/2025 11:50 AM EDTPatient InstructionsPatient Instructions Note Date & Type Note Facility 03-28-2025 Note HNO ID: [id number] Author: ESHA PORTER APRN.[facility]W Service: ? Author Type: Nurse Practitioner Type: Progress Notes Filed: 03/28/2025 09:44 Note Text: [facility] MAXIMILIANO Schwab is a 24 year old female. Patient presents with: Cough: Cough, ST, congestion, bodyaches and GUPTA x 3 days Cough The patient is a 24-year-old female presenting with cough, sore throat, congestion, body aches, and headache x3 days. Upper Respiratory Symptoms: - Cough, sore throat, congestion, body aches, and headache x3 days. - Odynophagia. - Initially thought symptoms were due to allergies. - also experiencing similar symptoms. - Denies dyspnea or chest pain. - Unable to take Motrin due to . Review of Systems Respiratory: Positive for cough. Ears/Nose/Mouth/Throat: (+) sore throat, (+) odynophagia, (+) nasal congestion Cardiovascular: (-) chest pain Respiratory: (+) cough, (-) shortness of breath Musculoskeletal: (+) myalgia Neurological: (+) headache Objective BP 116/82 Pulse 110 Temp 36.5 ?C (97.7 ?F) (Tympanic) Resp 18 Wt 58.8 kg (129 lb 10.1 oz) LMP 10/01/2024 SpO2 99% BMI 20.92 kg/m? Physical Exam General: No acute distress. HEENT: Mild pharyngeal erythema, no erythema or swelling in ears, no lymphadenopathy. CV: Regular heart sounds. Resp: Lungs clear to auscultation. { 1. Sore throat (J02.9) - Acute viral upper respiratory infection; strep test negative. - Supportive care recommended with therapies safe for . - Patient educated on expected course and advised to monitor for worsening symptoms. - Patient agrees with care plan. and Recording using ambient [employer] software for draft documentation of the visit was discussed with the patient/authorized marketing sales representative; all questions welcomed and answered. Patient/authorized marketing sales representative agreed to proceed History and Record Review External record(s) reviewed: no prior records. Disposition The patient was discharged. Procedures [facility] 03-22-2025 Progress note Formatting of t his note is different from the original. JS: Barbara Schwab is a 24 year old female who presents at 24w4d with ABRAHAM:07/08/2025, by Ultrasound for a problem visit. Denies headache, visual changes, chest pain, shortness of breath, vaginal bleeding, leakage of fluid, or dysuria. Complaint of pelvic cramping every 20 to 30 minutes this morning. Nausea with diarrhea this morning, no sick contacts. O: See flow sheet Gen: No apparent distress Abd: Gravid, nontender Pelvic exam no dilation by speculum or digital exam SENSITIVE EXAM: The sensitive examination was discussed with the Patient or Patient's Authorized Clerical Clerk. As applicable, any other physician, advance practice provider, medical student, or other health professional student that will be observing or involved in the sensitive examination for educational or training purposes was discussed with the Patient or Authorized Clerical Clerk. The Patient or Authorized Clerical Clerk has agreed to proceed with the sensitive examination. (Sensitive examination includes inspection and/or palpation of the breasts, pelvis, prostate and anorectal regions). ASSESSMENT/PLAN: 1. Supervision of high risk in second trimester -Continue PNV -Continue ASA 2. 24 weeks gestation of 3. Urinary tract infection without hematuria, site unspecified -Urine CATHERINE today. -02/17 Positive proteus vulgaris, treated with Keflex but then on 03/01 changed to Bactrim, no repeat culture. 3. Hx of delivery, currently 4. Nausea -Reviewed likely viral illness at this time, no signs of PTL. Braty diet, hydration, rest. If contractions become frequent, N/V worsens or unable to keep food and liquids down for 24hr to call office or L&D. 5. Diarrhea, unspecified type 6. Cramping affecting , antepartum PTL precautions reviewed and when to call RTO as scheduled Nilda Jean APRN.CNM [facility] 03-22-2025 Miscellaneous Notes JS: Barbara Schwab is a 24 year old female who presents at 24w4d with ABRAHAM:07/08/2025, by Ultrasound for a problem visit. Denies headache, visual changes, chest pain, shortness of breath, vaginal bleeding, leakage of fluid, or dysuria. Complaint of pelvic cramping every 20 to 30 minutes this morning. Nausea with diarrhea this morning, no sick contacts. O: See flow sheet Gen: No apparent distress Abd: Gravid, nontender Pelvic exam no dilation by speculum or digital exam SENSITIVE EXAM: The sensitive examination was discussed with the Patient or Patient's Authorized Clerical Clerk. As applicable, any other physician, advance practice provider, medical student, or other health professional student that will be observing or involved in the sensitive examination for educational or training purposes was discussed with the Patient or Authorized Clerical Clerk. The Patient or Authorized Clerical Clerk has agreed to proceed with the sensitive examination. (Sensitive examination includes inspection and/or palpation of the breasts, pelvis, prostate and anorectal regions). ASSESSMENT/PLAN: 1. Supervision of high risk in second trimester -Continue PNV -Continue ASA 2. 24 weeks gestation of 3. Urinary tract infection without hematuria, site unspecified -Urine CATHERINE today. -02/17 Positive proteus vulgaris, treated with Keflex but then on 03/01 changed to Bactrim, no repeat culture. 3. Hx of delivery, currently 4. Nausea -Reviewed likely viral illness at this time, no signs of PTL. Braty diet, hydration, rest. If contractions become frequent, N/V worsens or unable to keep food and liquids down for 24hr to call office or L&D. 5. Diarrhea, unspecified type 6. Cramping affecting , antepartum PTL precautions reviewed and when to call RTO as scheduled Nilda Jean APRN.CNM documented in this encounter [facility] 03-22-2025 Instructions Fátima Chase MA - 03/22/2025 10:01 AM EDT SEQUENTIAL SCREENINGS The [facility] offers sequential screenings for women who are interested in screenings for chromosomal abnormalities and certain defects during a . The sequential screen combines ultrasound and blood tests to determine the risk of chromosomal abnormalities, including Down's Syndrome (Trisomy 21) and Trisomy 18, as well as open neural tube defects including spina bifida. Ultrasound examination is performed between 11 weeks and 13 weeks gestational age. Blood tests are drawn after the ultrasound and again later in the between 15 and 21 weeks gestational age. Please let your physician know if you are interested in this testing. It will require an appointment with our milieu technician. This is not an ultrasound performed by a physician in our office during a routine visit. SIGNS AND SYMPTOMS OF LABOR 1. Contractions every 10 minutes or more often 2. Clear, pink, or brownish fluid (water) leaking from vagina 3. Feeling that baby is pushing down, pressure 4. Low, dull backache 5. Cramps that feel like a period 6. Cramps with or without diarrhea If you notice any of the above symptoms, contact our office at [phone] and ask to speak with a nurse. After hours, you can call doctors registry at [phone] OR call [facility] at [phone] and ask to have the doctor mortgage professional paged. If you consider this an emergency, dial 9--7 or go to your nearest emergency department. NEED HELP? Are you dealing with a violent or abusive relationship? Are you a victim of rape or sexual assult? Call [facility] ([place]) 24 hour Crisis Hotline: 409.334.1213 or 284-629-3231. MANUAL Your Guide to a Healthy manual is now on-line. Visit [email or web address] to download your free copy documented in this encounter [facility] 03-15-2025 Progress note Formatting of t his note might be different from the original. 03/11/25-S: Barbara Schwab is a 24 year old female who presents at 23w0d with ABRAHAM:07/08/2025, by Ultrasound for a routine visit. Denies headache, visual changes, chest pain, shortness of breath, vaginal bleeding, leakage of fluid, or dysuria. Feeling well, no complaints. O: See flow sheet Gen: No apparent distress Abd: Gravid, nontender Cervical length today, awaiting formal results ASSESSMENT/PLAN: 1. Supervision of high risk in second trimester -Continue PNV -Continue ASA 2. 23 weeks gestation of 3. Urinary tract infection without hematuria, site unspecified -Urine CATHERINE today. -02/17 Positive proteus vulgaris, treated with Keflex but then on 03/01 changed to Bactrim, no repeat culture. 4. Hx of delivery, currently -CL completed today, awaiting formal results 5. Screening for diabetes mellitus -1hr GCT, CBC, and RPR next visit 6. History of depression -Continue Lexapro 10mg PO once daily 7. History of herpes genitalis -Start HSV prophylaxis at 36 weeks, no recent outbreaks. To notify the office if outbreak. PTL precautions reviewed and when to call RTO in 4 weeks Nilda Jean APRN.CNM [facility] 03-15-2025 Miscellaneous Notes 03/11/25-S: Barbara Schwab is a 24 year old female who presents at 23w0d with ABRAHAM:07/08/2025, by Ultrasound for a routine visit. Denies headache, visual changes, chest pain, shortness of breath, vaginal bleeding, leakage of fluid, or dysuria. Feeling well, no complaints. O: See flow sheet Gen: No apparent distress Abd: Gravid, nontender Cervical length today, awaiting formal results ASSESSMENT/PLAN: 1. Supervision of high risk in second trimester -Continue PNV -Continue ASA 2. 23 weeks gestation of 3. Urinary tract infection without hematuria, site unspecified -Urine CATHERINE today. -02/17 Positive proteus vulgaris, treated with Keflex but then on 03/01 changed to Bactrim, no repeat culture. 4. Hx of delivery, currently -CL completed today, awaiting formal results 5. Screening for diabetes mellitus -1hr GCT, CBC, and RPR next visit 6. History of depression -Continue Lexapro 10mg PO once daily 7. History of herpes genitalis -Start HSV prophylaxis at 36 weeks, no recent outbreaks. To notify the office if outbreak. PTL precautions reviewed and when to call RTO in 4 weeks Nilda Jean APRN.CNM documented in this encounter [facility] 03-14-2025 Note HNO ID: [id number] Author: ODETTE LINDSAY MD Service: ? Author Type: Physician Type: Progress Notes Filed: 03/14/2025 14:35 Note Text: SW- Add on visit for multiple complaints. Over the weekend she had a day where her vision was "white" and blurry, and she felt she was going to pass out. BG was 123. BP 110/88. Ears are ringing, vision is blurry, brain fog, and overall uncomfortable. Generalized aches and decreased appetite. Some palpitations when standing that resolve with rest. No sick contacts however her kids just started school and she was visiting them over weekend. Denies CP, Shortness of Breath. No ctx, vb, lof. +FM. Eating and drinking ok. No change in activity. Feels she is sweating more. Denies fevers, chills. Having acid reflux. PE: Gen- NAD, well appearing, comfortable Heart- Regular rate and rhythm Lungs- CTAB Abd- Soft, NT, gravid LE- No edema Temp 98.6 Spo2 100% See flowsheet A/p 23 wk gestation - Add on visit for multiple complaints: Discussed normal physiologic changes in . Encouraged hydration, frequent snacking, avoiding prolonged standing and quick position changes. Will check labs today. Discussed reasons to go to the ER. To call office if symptoms not improving- can refer patient to cardio. She has a visit next week, and instructed her to keep this visit - UTI : Antibiotic sent. CATHERINE next visit Odette Lindsay DO [facility] 03-14-2025 History of Presen t illness Narrative SW- Add on visit for multiple complaints. Over the weekend she had a day where her vision was "white" and blurry, and she felt she was going to pass out. BG was 123. BP 110/88. Ears are ringing, vision is blurry, brain fog, and overall uncomfortable. Generalized aches and decreased appetite. Some palpitations when standing that resolve with rest. No sick contacts however her kids just started school and she was visiting them over weekend. Denies CP, Shortness of Breath. No ctx, vb, lof. +FM. Eating and drinking ok. No change in activity. Feels she is sweating more. Denies fevers, chills. Having acid reflux. PE: Gen- NAD, well appearing, comfortable Heart- Regular rate and rhythm Lungs- CTAB Abd- Soft, NT, gravid LE- No edema Temp 98.6 Spo2 100% See flowsheet A/p 23 wk gestation - Add on visit for multiple complaints: Discussed normal physiologic changes in . Encouraged hydration, frequent snacking, avoiding prolonged standing and quick position changes. Will check labs today. Discussed reasons to go to the ER. To call office if symptoms not improving- can refer patient to cardio. She has a visit next week, and instructed her to keep this visit - UTI : Antibiotic sent. CATHERINE next visit Odette Lindsay DO documented in this encounter [facility] 03-14-2025 Instructions Farooq Dominguez LPN - 03/14/2025 1:02 PM EDT SEQUENTIAL SCREENINGS The [facility] offers sequential screenings for women who are interested in screenings for chromosomal abnormalities and certain defects during a . The sequential screen combines ultrasound and blood tests to determine the risk of chromosomal abnormalities, including Down's Syndrome (Trisomy 21) and Trisomy 18, as well as open neural tube defects including spina bifida. Ultrasound examination is performed between 11 weeks and 13 weeks gestational age. Blood tests are drawn after the ultrasound and again later in the between 15 and 21 weeks gestational age. Please let your physician know if you are interested in this testing. It will require an appointment with our milieu technician. This is not an ultrasound performed by a physician in our office during a routine visit. SIGNS AND SYMPTOMS OF LABOR 1. Contractions every 10 minutes or more often 2. Clear, pink, or brownish fluid (water) leaking from vagina 3. Feeling that baby is pushing down, pressure 4. Low, dull backache 5. Cramps that feel like a period 6. Cramps with or without diarrhea If you notice any of the above symptoms, contact our office at [phone] and ask to speak with a nurse. After hours, you can call doctors registry at [phone] OR call [facility] at [phone] and ask to have the doctor mortgage professional paged. If you consider this an emergency, dial 9--2 or go to your nearest emergency department. NEED HELP? Are you dealing with a violent or abusive relationship? Are you a victim of rape or sexual assult? Call [facility] ([place]) 24 hour Crisis Hotline: 474.402.2628 or 318-206-8691. MANUAL Your Guide to a Healthy manual is now on-line. Visit [email or web address] [email or web address] to download your free copy documented in this encounter [facility] 03-13-2025 Telephone encounter Note Patient calling regarding B/p 110/88.Conferenced to [place] [facility] [ ] to speak with provider mortgage professional for Marcia OGM.. GO TO THE EMERGENCY ROOM OR CALL 911 IF: * You develop any new symptoms * Your condition worsens * You are concerned or anxious about your condition for any other reason. [facility] 03-13-2025 Miscellaneous Notes Patient calling regarding B/p 110/88.Conferenced to [facility] [ ] to speak with provider mortgage professional for Marcia OGM.. GO TO THE EMERGENCY ROOM OR CALL 911 IF: * You develop any new symptoms * Your condition worsens * You are concerned or anxious about your condition for any other reason. documented in this encounter [facility] 03-11-2025 Note Indication Follow-up evaluation for cervical length History of delivery Impression REMOTE READ - The patient presents for TVS for cervical length measurement to assess the patient's risk for . - Single, live, intrauterine . - The cervical length measures 30.1 mm with no evidence of funneling or other dynamic changes. Recommendations Additional follow-up as clinically indicated. Maternal Assessment Height 168 cm Height (ft) 5 ft Height (in) 6 in Physical Exam Initial weight (lb) 102 lb Initial BMI 16.46 kg/m Maternal assessment other: 4 Para 3 Growth Overview Exam date GA BPD (mm) HC (mm) AC (mm) FL (mm) HL (mm) EFW (g) 01/26/2025 16w 5d 37.3 79% 134.7 50% 121.9 85% 22 48% 184 71% 02/23/2025 20w 5d 49.2 57% 180.7 43% 165.6 72% 34 63% 32.3 53% 397 63% Method Transabdominal and transvaginal ultrasound examination Boss . Number of fetuses: 1 Dating LMP on: 10/01/2024 GA by LMP 23 w + 0 d ABRAHAM by LMP: 07/08/2025 GA by prior assessment 23 w + 0 d ABRAHAM by prior assessment: 07/08/2025 Assigned: based on stated ABRAHAM, selected on 02/23/2025 Assigned GA 23 w + 0 d Assigned ABRAHAM: 07/08/2025 General Evaluation Cardiac activity present. FHR 148 bpm. movements: present. Presentation: cephalic Placenta: Placental site: posterior, fundal Umbilical cord: Cord vessels: 3 vessel cord Amniotic fluid: Amount of AF: normal amount. MVP 5.5 cm Anatomy Cavum septi pellucidi: normal Cerebellum: normal Cisterna magna: normal 4-chamber view: normal RVOT view: normal LVOT view: normal 3-vessel view: normal Heart / Thorax Situs: situs solitus (normal) Diaphragm: normal Stomach: normal Kidneys: normal Bladder: normal Gender: Unspecified Wants to know sex: no Maternal Structures Uterus / Cervix Cervix: Visualized Approach: Transvaginal Cervical length 30.1 mm Performed By: Yesenia Mccarthy RDMS, T Read By: Christian Dunn M.D. MATERNAL MEDICINE 03-11-2025 Instructions Kat[facility] [place] - 03/11/2025 1:33 PM EDT Oral Glucose Tolerance Test During Your provider has ordered an oral glucose tolerance test. For more information: My [facility] Oral Glucose Tolerance Test How do I prepare for my one-hour glucose test? You don t need to prepare for your one-hour glucose screening. Most care providers recommend avoiding foods high in sugar for breakfast. For example, pancakes, donuts or juice. If you re testing later in the day, be aware that eating large amounts of sugar for lunch may affect your results. Can you eat before a glucose screening test? Yes, you can eat normally before your glucose screening test. What can I expect on the day of the glucose screening? On the day of your glucose screening, follow instructions given to you by your care provider or the lab (if applicable). Be sure to know exactly where to go for the screening and if you need an appointment. Safe Sleep for For more information: [email or web address] Safe Sleep Healthy babies are safest when sleeping on their backs at nighttime and during naps. Side sleeping is not as safe as back sleeping and is not advised. SEQUENTIAL SCREENINGS The [facility] offers sequential screenings for women who are interested in screenings for chromosomal abnormalities and certain defects during a . The sequential screen combines ultrasound and blood tests to determine the risk of chromosomal abnormalities, including Down's Syndrome (Trisomy 21) and Trisomy 18, as well as open neural tube defects including spina bifida. Ultrasound examination is performed between 11 weeks and 13 weeks gestational age. Blood tests are drawn after the ultrasound and again later in the between 15 and 21 weeks gestational age. Please let your physician know if you are interested in this testing. It will require an appointment with our milieu technician. This is not an ultrasound performed by a physician in our office during a routine visit. SIGNS AND SYMPTOMS OF LABOR 1. Contractions every 10 minutes or more often 2. Clear, pink, or brownish fluid (water) leaking from vagina 3. Feeling that baby is pushing down, pressure 4. Low, dull backache 5. Cramps that feel like a period 6. Cramps with or without diarrhea If you notice any of the above symptoms, contact our office at [phone] and ask to speak with a nurse. After hours, you can call doctors registry at [phone] OR call [facility] at [phone] and ask to have the doctor mortgage professional paged. If you consider this an emergency, dial 91-5 or go to your nearest emergency department. NEED HELP? Are you dealing with a violent or abusive relationship? Are you a victim of rape or sexual assult? Call [facility] ([facility] 24 hour Crisis Hotline: 877.808.5072 or 017-519-3261. MANUAL Your Guide to a Healthy manual is now on-line. Visit [email or web address] [email or web address] to download your free copy documented in this encounter [facility] 03-01-2025 Telephone encounter Note Patient notified. Becky Fay RN The following approved medication requests have been transmitted electronically. Requested Prescriptions Signed Prescriptions Disp Refills sulfamethoxazole-trimethoprim (BACTRIM DS) 800-160 mg per tablet 14 tablet 0 Sig: Take 1 tablet by mouth two times a day for 7 days. Authorizing Provider: KAMILLA PORTER Pharmacy Information Pharmacy Address Telephone [facility] [id number] [place] [address] [facility] 03-01-2025 Miscellaneous Notes Patient notified. Becky Fay RN The following approved medication requests have been transmitted electronically. Requested Prescriptions Signed Prescriptions Disp Refills sulfamethoxazole-trimethoprim (BACTRIM DS) 800-160 mg per tablet 14 tablet 0 Sig: Take 1 tablet by mouth two times a day for 7 days. Authorizing Provider: KAMILLA PORTER Pharmacy Information Pharmacy Address Telephone [facility] [address] [place] [address] Filed Kamilla Porter MD' She needs a bactrim prescription then. She did not have that one prescribed. Becky Fay RN OK to take bactrim Kamilla Porter MD 21w4d Patient was treated with Keflex for a UTI by urgent care. She had declined Bactrim due to possible adverse effects in . Calling today to report that she finished the Keflex yesterday and felt her symptoms were improving, but not completely resolved. Today she is having right sided cramping pain. Pain rate of 5. Tylenol 1,000 MG helping a little. More painful while sitting. Still having urinary frequency. Afebrile. Patient is agreeable to taking Bactrim now. Does patient need a new urine culture first? Elena Rivas RN documented in this encounter [facility] 03-01-2025 Telephone encounter Note Filed Kamilla Porter MD' [facility] 03-01-2025 Telephone encounter Note She needs a bactrim prescription then. She did not have that one prescribed. Becky Fay RN [facility] 03-01-2025 Telephone encounter Note OK to take bactrim Kamilla Porter MD [facility] 03-01-2025 Telephone encounter Note 21w4d Patient was treated with Keflex for a UTI by urgent care. She had declined Bactrim due to possible adverse effects in . Calling today to report that she finished the Keflex yesterday and felt her symptoms were improving, but not completely resolved. Today she is having right sided cramping pain. Pain rate of 5. Tylenol 1,000 MG helping a little. More painful while sitting. Still having urinary frequency. Afebrile. Patient is agreeable to taking Bactrim now. Does patient need a new urine culture first? Elena Rivas RN [facility] 02-24-2025 Telephone encounter Note 2nd risk assessment form submitted 02/24/25 Donaldo Desai RN [facility] 02-24-2025 Miscellaneous Notes 2nd risk assessment form submitted 02/24/25 Donaldo Desai RN documented in this encounter [facility] 02-23-2025 Telephone encounter Note Please file order for anatomy ultrasound. Yesenia Katz RN [facility] 02-23-2025 Miscellaneous Notes Please file order for anatomy ultrasound. Yesenia Katz RN documented in this encounter [facility] 02-23-2025 Progress note Formatting of t his note might be different from the original. S: Barbara Schwab is a 24 year old female who presents at 20 weeks gestation for a routine visit. Just completed anatomy US. Completing serial CL which have been normal to date. Seen at urgent care last week for UTI and started on Keflex. Reports that s/s have resolved since starting antibiotics. Positive movements starting 2 weeks ago. Denies headache, visual changes, chest pain, shortness of breath, vaginal bleeding, leakage of fluid, or dysuria. Feeling well, no complaints. O: See flow sheet Gen: No apparent distress Abd: Gravid, nontender ASSESSMENT/PLAN: 1. 20 weeks gestation of 2. Hx of delivery, currently 3. Supervision of high risk , antepartum 4. UTI - Continue Keflex 500 mg PO BID - complete all medication - CATHERINE needed at next visit - Continue ASA/ vitamin daily - Continue serial CL - RTO 4 weeks for SHAUN Farrell APRN.LAUREN P: 1) PTL precautions reviewed and when to call 2) RTO [facility] 02-23-2025 Miscellaneous Notes S: Barbara Schwab is a 24 year old female who presents at 20 weeks gestation for a routine visit. Just completed anatomy US. Completing serial CL which have been normal to date. Seen at urgent care last week for UTI and started on Keflex. Reports that s/s have resolved since starting antibiotics. Positive movements starting 2 weeks ago. Denies headache, visual changes, chest pain, shortness of breath, vaginal bleeding, leakage of fluid, or dysuria. Feeling well, no complaints. O: See flow sheet Gen: No apparent distress Abd: Gravid, nontender ASSESSMENT/PLAN: 1. 20 weeks gestation of 2. Hx of delivery, currently 3. Supervision of high risk , antepartum 4. UTI - Continue Keflex 500 mg PO BID - complete all medication - CATHERINE needed at next visit - Continue ASA/ vitamin daily - Continue serial CL - RTO 4 weeks for SHAUN Farrell APRN.CNM P: 1) PTL precautions reviewed and when to call 2) RTO documented in this encounter [facility] 02-23-2025 Instructions Adwoa Conrad LPN - 02/23/2025 8:55 AM EDT SEQUENTIAL SCREENINGS The [facility] offers sequential screenings for women who are interested in screenings for chromosomal abnormalities and certain defects during a . The sequential screen combines ultrasound and blood tests to determine the risk of chromosomal abnormalities, including Down's Syndrome (Trisomy 21) and Trisomy 18, as well as open neural tube defects including spina bifida. Ultrasound examination is performed between 11 weeks and 13 weeks gestational age. Blood tests are drawn after the ultrasound and again later in the between 15 and 21 weeks gestational age. Please let your physician know if you are interested in this testing. It will require an appointment with our milieu technician. This is not an ultrasound performed by a physician in our office during a routine visit. SIGNS AND SYMPTOMS OF LABOR 1. Contractions every 10 minutes or more often 2. Clear, pink, or brownish fluid (water) leaking from vagina 3. Feeling that baby is pushing down, pressure 4. Low, dull backache 5. Cramps that feel like a period 6. Cramps with or without diarrhea If you notice any of the above symptoms, contact our office at [phone] and ask to speak with a nurse. After hours, you can call doctors registry at [phone] OR call [facility] at [phone] and ask to have the doctor mortgage professional paged. If you consider this an emergency, dial 9-1-0 or go to your nearest emergency department. NEED HELP? Are you dealing with a violent or abusive relationship? Are you a victim of rape or sexual assult? Call [facility] ([place]) 24 hour Crisis Hotline: 737.144.7935 or 958-579-2102. MANUAL Your Guide to a Healthy manual is now on-line. Visit [email or web address] [email or web address] to download your free copy documented in this encounter [facility] 02-22-2025 Telephone encounter Note See 02/18/25 results follow- up encounter. Patient was notified by urgent care regarding new antibiotic and results. Becky Fay RN [facility] 02-22-2025 Miscellaneous Notes See 02/18/25 results follow- up encounter. Patient was notified by urgent care regarding new antibiotic and results. Becky Fay RN 20w3d Culture >=100,000 CFU/ml Proteus vulgaris Abnormal Urine culture resulted and urgent care provider addressed as culture resistant to Macrobid. New Rx for Bactrim prescribed and faxed to [facility] in [place]. Confirmed with pharmacy that Pt did pick Rx up. Tried calling Pt to review that she is indeed taking the Bactrim only at this time to properly treat UTI; However, voicemail box has not been set up yet. Nancy Atkins RN Patient was prescribed Macrobid and has taken 2 doses so far. C/o urinary frequency and "side cramps". Burning w/ urination has resolved. Patient is taking tylenol that is helping to resolve side cramps. Next ob appointment 02/23/25. Attempted to reach patient by phone. No answer and unable to leave a voicemail. Mailbox not set up yet. Elena Rivas RN If she is being treated, await culture results 20w0d See below. Urine culture pending. Macrobid was given. No openings today or Friday at this time. Urgent Care provider routed chart to DM with a message to review. Please review and advise. Elena Rivas RN Patient was seen in UC on 02/17, patient sent MyChart request for follow up with OB between 02/18-02/21. Experiencing side cramps and poss UTI symptom. Please call patient to see alternative appointments. TY! documented in this encounter [facility] 02-21-2025 Telephone encounter Note 20w3d Culture >=100,000 CFU/ml Proteus vulgaris Abnormal Urine culture resulted and urgent care provider addressed as culture resistant to Macrobid. New Rx for Bactrim prescribed and faxed to [facility] in [place]. Confirmed with pharmacy that Pt did pick Rx up. Tried calling Pt to review that she is indeed taking the Bactrim only at this time to properly treat UTI; However, voicemail box has not been set up yet. Nancy Atkins RN [facility] 02-18-2025 Telephone encounter Note Patient was prescribed Macrobid and has taken 2 doses so far. C/o urinary frequency and "side cramps". Burning w/ urination has resolved. Patient is taking tylenol that is helping to resolve side cramps. Next ob appointment 02/23/25. [facility] 02-18-2025 Telephone encounter Note Attempted to reach patient by phone. No answer and unable to leave a voicemail. Mailbox not set up yet. Elena Rivas RN [facility] 02-18-2025 Telephone encounter Note If she is being treated, await culture results [facility] Work Phone: 02-18-2025 Telephone encounter Note 20w0d See below. Urine culture pending. Macrobid was given. No openings today or Friday at this time. Urgent Care provider routed chart to DM with a message to review. Please review and advise. Elena Rivas RN [facility] 02-18-2025 Telephone encounter Note Patient was seen in UC on 02/17, patient sent MyChart request for follow up with OB between 02/18-02/21. Experiencing side cramps and poss UTI symptom. Please call patient to see alternative appointments. TY! [facility] 02-17-2025 Note HNO ID: [id number] Author: ESHA PORTER APRN.WELDING MACHINE OPERATOR FRICTION Service: ? Author Type: Nurse Practitioner Type: Progress Notes Filed: 02/17/2025 10:41 Note Text: URGENT CARE MAXIMILIANOCRISTIANE Schwab is a 24 year old female. Patient presents with: Urinary Problem: Burning and frequency x 3 days HPI Dysuria and Hematuria: - Frequent UTIs; this is the first occurrence during current . - Denies visible hematuria. - Denies abdominal pain, cramping, or nausea. - No known allergies to antibiotics. High-Risk : - Currently 19 weeks and 6 days gestation. - High-risk due to history of deliveries: - Oldest child born 3 months early, requiring NICU care. - Twins born 6 weeks early, also requiring NICU care. - Denies any other complications during current . - Under the care of Dr. Edwards. Review of Systems Gastrointestinal: (-) abdominal pain, (-) abdominal cramping, (-) nausea Genitourinary: (-) hematuria, (-) flank pain Objective BP 108/76 Pulse 99 Temp 36.4 ?C (97.6 ?F) Resp 18 Wt 54 kg (119 lb 0.8 oz) LMP 10/01/2024 SpO2 99% BMI 19.21 kg/m? Physical Exam General: CV: Heart sounds normal. Resp: Breath sounds normal. Abd: No tenderness to palpation. Back: No CVA tenderness. { 1. Burning with urination (R30.0) - Acute UTI; urinalysis positive for small amount of blood. - No abdominal pain, cramping, or nausea; no costovertebral angle tenderness on exam. - Start Macrobid BID for 5 days. - Urine sent for culture. - Will message HEALTH OUTCOMES LIAISON (Dr. Edwards) with high-importance update regarding UTI and current management. - Advised patient to follow any additional instructions from HEALTH OUTCOMES LIAISON if contacted. and Recording using ambient AI software for draft documentation of the visit was discussed with the patient/authorized marketing sales representative; all questions welcomed and answered. Patient/authorized marketing sales representative agreed to proceed MDM Procedures [facility] 02-17-2025 History of Presen t illness Narrative [facility] CARE MAXIMILIANO Alexandra Schwab is a 24 year old female. Patient presents with: Urinary Problem: Burning and frequency x 3 days HPI Dysuria and Hematuria: - Frequent UTIs; this is the first occurrence during current . - Denies visible hematuria. - Denies abdominal pain, cramping, or nausea. - No known allergies to antibiotics. High-Risk : - Currently 19 weeks and 6 days gestation. - High-risk due to history of deliveries: - Oldest child born 3 months early, requiring NICU care. - Twins born 6 weeks early, also requiring NICU care. - Denies any other complications during current . - Under the care of Dr. Edwards. Review of Systems Gastrointestinal: (-) abdominal pain, (-) abdominal cramping, (-) nausea Genitourinary: (-) hematuria, (-) flank pain Objective BP 108/76 Pulse 99 Temp 36.4 C (97.6 F) Resp 18 Wt 54 kg (119 lb 0.8 oz) LMP 10/01/2024 SpO2 99% BMI 19.21 kg/m Physical Exam General: CV: Heart sounds normal. Resp: Breath sounds normal. Abd: No tenderness to palpation. Back: No CVA tenderness. { 1. Burning with urination (R30.0) - Acute UTI; urinalysis positive for small amount of blood. - No abdominal pain, cramping, or nausea; no costovertebral angle tenderness on exam. - Start Macrobid BID for 5 days. - Urine sent for culture. - Will message HEALTH OUTCOMES LIAISON (Dr. Edwards) with high-importance update regarding UTI and current management. - Advised patient to follow any additional instructions from HEALTH OUTCOMES LIAISON if contacted. and Recording using ambient AI software for draft documentation of the visit was discussed with the patient/authorized marketing sales representative; all questions welcomed and answered. Patient/authorized marketing sales representative agreed to proceed MDM Procedures documented in this encounter [facility] 01-26-2025 Progress note Formatting of t his note might be different from the original. DM-Pt doing well. Denies vaginal Bleeding, Leaking fluid, or regular Contractions. Pt reports good movement Physical Exam: Gen: female in no apparent distress Abd: soft, Gravid. Non tender to palpation. See flow sheet @ 16.5 weeks Assessment & Plan Supervision of high risk , antepartum (HCC) Continue ASA Hx of delivery, currently (HCC) CL length and early anatomy today Continue with CL Family history of [place]'s disease 16 weeks gestation of (HCC) Anatomy us scheduled RTO 4 wks New OB labs completed Antonieta Stoll MD [facility] 01-26-2025 Miscellaneous Notes DM-Pt doing well. Denies vaginal Bleeding, Leaking fluid, or regular Contractions. Pt reports good movement Physical Exam: Gen: female in no apparent distress Abd: soft, Gravid. Non tender to palpation. See flow sheet @ 16.5 weeks Assessment & Plan Supervision of high risk , antepartum (HCC) Continue ASA Hx of delivery, currently (HCC) CL length and early anatomy today Continue with CL Family history of [place]'s disease 16 weeks gestation of ([facility]) Anatomy us scheduled RTO 4 wks New OB labs completed Antonieta Stoll MD documented in this encounter [facility] 01-26-2025 Instructions Apolonia Woodard MA - 01/26/2025 10:56 AM EDT SEQUENTIAL SCREENINGS The [facility] offers sequential screenings for women who are interested in screenings for chromosomal abnormalities and certain defects during a . The sequential screen combines ultrasound and blood tests to determine the risk of chromosomal abnormalities, including Down's Syndrome (Trisomy 21) and Trisomy 18, as well as open neural tube defects including spina bifida. Ultrasound examination is performed between 11 weeks and 13 weeks gestational age. Blood tests are drawn after the ultrasound and again later in the between 15 and 21 weeks gestational age. Please let your physician know if you are interested in this testing. It will require an appointment with our milieu technician. This is not an ultrasound performed by a physician in our office during a routine visit. SIGNS AND SYMPTOMS OF LABOR 1. Contractions every 10 minutes or more often 2. Clear, pink, or brownish fluid (water) leaking from vagina 3. Feeling that baby is pushing down, pressure 4. Low, dull backache 5. Cramps that feel like a period 6. Cramps with or without diarrhea If you notice any of the above symptoms, contact our office at [phone] and ask to speak with a nurse. After hours, you can call doctors registry at [phone] OR call [facility] at [phone] and ask to have the doctor mortgage professional paged. If you consider this an emergency, dial 4-1-5 or go to your nearest emergency department. NEED HELP? Are you dealing with a violent or abusive relationship? Are you a victim of rape or sexual assult? Call [facility] ([place]) 24 hour Crisis Hotline: 336.477.6566 or 327-317-8566. MANUAL Your Guide to a Healthy manual is now on-line. Visit [email or web address] to download your free copy SEQUENTIAL SCREENINGS The [facility] offers sequential screenings for women who are interested in screenings for chromosomal abnormalities and certain defects during a . The sequential screen combines ultrasound and blood tests to determine the risk of chromosomal abnormalities, including Down's Syndrome (Trisomy 21) and Trisomy 18, as well as open neural tube defects including spina bifida. Ultrasound examination is performed between 11 weeks and 13 weeks gestational age. Blood tests are drawn after the ultrasound and again later in the between 15 and 21 weeks gestational age. Please let your physician know if you are interested in this testing. It will require an appointment with our milieu technician. This is not an ultrasound performed by a physician in our office during a routine visit. SIGNS AND SYMPTOMS OF LABOR 1. Contractions every 10 minutes or more often 2. Clear, pink, or brownish fluid (water) leaking from vagina 3. Feeling that baby is pushing down, pressure 4. Low, dull backache 5. Cramps that feel like a period 6. Cramps with or without diarrhea If you notice any of the above symptoms, contact our office at [phone] and ask to speak with a nurse. After hours, you can call doctors registry at [phone] OR call [facility] at [phone] and ask to have the doctor mortgage professional paged. If you consider this an emergency, dial 9--5 or go to your nearest emergency department. NEED HELP? Are you dealing with a violent or abusive relationship? Are you a victim of rape or sexual assult? Call [facility] ([place]) 24 hour Crisis Hotline: 698.769.7874 or 621-629-1249. MANUAL Your Guide to a Healthy manual is now on-line. Visit [email or web address] to download your free copy documented in this encounter [facility] 12-28-2024 Progress note Formatting of t his note might be different from the original. KJ - S: Ching denies LOF, contractions or vaginal bleeding. O: 12w4d, see flow sheet SENSITIVE EXAM: Sensitive exam not performed. A/P: Assessment & Plan Family history of [place]'s disease MFM consult with today. 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 The availability of genetic counseling and testing was reviewed and is desired by the patient. Genetic counseling was ordered. Supervision of high risk , antepartum (HCC) Hx of delivery, currently ([facility]) Biweekly cervical lengths starting at 16 weeks. Kamilla Porter MD [facility] 12-28-2024 Miscellaneous Notes KJ - S: Ching denies LOF, contractions or vaginal bleeding. O: 12w4d, see flow sheet SENSITIVE EXAM: Sensitive exam not performed. A/P: Assessment & Plan Family history of Russel's disease MFM consult with today. 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 The availability of genetic counseling and testing was reviewed and is desired by the patient. Genetic counseling was ordered. Supervision of high risk , antepartum (HCC) Hx of delivery, currently ([facility]) Biweekly cervical lengths starting at 16 weeks. Kamilla Porter MD documented in this encounter [facility] 12-28-2024 Instructions Apolonia Woodard MA - 12/28/2024 10:07 AM EDT SEQUENTIAL SCREENINGS The [facility] offers sequential screenings for women who are interested in screenings for chromosomal abnormalities and certain defects during a . The sequential screen combines ultrasound and blood tests to determine the risk of chromosomal abnormalities, including Down's Syndrome (Trisomy 21) and Trisomy 18, as well as open neural tube defects including spina bifida. Ultrasound examination is performed between 11 weeks and 13 weeks gestational age. Blood tests are drawn after the ultrasound and again later in the between 15 and 21 weeks gestational age. Please let your physician know if you are interested in this testing. It will require an appointment with our milieu technician. This is not an ultrasound performed by a physician in our office during a routine visit. SIGNS AND SYMPTOMS OF LABOR 1. Contractions every 10 minutes or more often 2. Clear, pink, or brownish fluid (water) leaking from vagina 3. Feeling that baby is pushing down, pressure 4. Low, dull backache 5. Cramps that feel like a period 6. Cramps with or without diarrhea If you notice any of the above symptoms, contact our office at [phone] and ask to speak with a nurse. After hours, you can call [employer] [facility] at [phone] OR call [facility] at [phone] and ask to have the doctor mortgage professional paged. If you consider this an emergency, dial 0-7-2 or go to your nearest emergency department. NEED HELP? Are you dealing with a violent or abusive relationship? Are you a victim of rape or sexual assult? Call [facility] ([place]) 24 hour Crisis Hotline: 584.723.2864 or 768-263-9075. MANUAL Your Guide to a Healthy manual is now on-line. Visit [email or web address] to download your free copy documented in this encounter [facility] 12-28-2024 History of Presen t illness Narrative Maternal Medicine Consult Note Requested by: Paola MARVIN Reporting: Note/evaluation from today sent to requesting provider via shared medical record. History of Present Illness 24 year old at 12w4d presenting for MFM consultation secondary to a history of x 2. Her OB history is notable for a in 2018 where she presented at 28w6d in advanced labor (c/c/+2) and had a precipitous of a 3#2 without complication. She had multiple evaluations for threatened PTL prior to her delivery admission with some cervical dilation of 1-2 cm (without presentation/description of CI), and she received a course of ANCS prior to delivery. Reports that her had an uncomplicated course in the NICU is currently healthy and has some developmental/learning delay but is otherwise meeting all milestones. In 2020, she had a DCDA twin that was complicated by midtrimester cervical shortening/dilation (11 mm at ~24 weeks gestation) that was managed with vaginal progesterone. She then had PPROM at at 31w1d. She had a short period of latency with inpatient management of PPROM, and she had onset of spontaneous labor at 32w0d. She had an uncomplicated of both neonates, and weights were 3#9 and 4#1 respectively. Manual extraction of the placenta was required due to vaginal bleeding during the third stage. Placental pathology noted maternal vascular malperfusion, changes of intrauterine infection/inflammation, and a single remote infarct. The remainder of her recovery was otherwise uncomplicated. Reports that her twins are healthy and meeting all developmental milestones. She denies a history of GDM or hypertensive disorders of . She denies a history of cervical trauma or surgery. She also has a history of an ectopic treated with right salpingectomy. Her past medical and surgical histories are notable for depression (stable on SSRI), genital HSV, and a family history of [place]'s disease (maternal grandmother; patient and her mother have not had genetic evaluation). She reports no significant gynecologic history and denies fibroids, dysplasia requiring conization, or other gynecologic conditions or surgeries. She denies any personal or family history of significant genetic diagnoses for herself or her partner. She denies tobacco, alcohol or illicit substance abuse. She has no known drug allergies and her current mediations include vitamins, ASA, and lexapro. She reported feeling well overall today and denied abdominal pain, cramping, VB, or LOF. ROS otherwise negative as below. PAST MEDICAL HISTORY Diagnosis Date Anemia during in second trimester (HCC) 05/18/2019 Depression GERD (gastroesophageal reflux disease) H/O seasonal allergies Herpes simplex virus (HSV) infection IBS (irritable bowel syndrome) PAST SURGICAL HISTORY Procedure Laterality Date SALPINGECTOMY Right 04/01/2024 laparoscopic, D&C for ectopic Family History Problem Relation Age of Onset Hypertension Mother other (insomnia) Mother other (fibromyalgia) Mother other (IBS) Mother Heart Attack Father Depression Sister No Known Problems Brother Diabetes Maternal Grandmother Hypertension Maternal Grandmother other ([place]'s Disease) Maternal Grandmother Cancer Maternal Grandfather Lung Hypertension Maternal Grandfather Alcohol/Drug Paternal Grandmother Alcohol/Drug Paternal Grandfather other (acid reflux) Son Current Outpatient Medications Medication Sig Dispense Refill aspirin, enteric coated (ECOTRIN LOW STRENGTH) 81 mg EC tablet Take 1 tablet by mouth once daily. 90 tablet 3 valACYclovir (VALTREX) 1 gram tablet Take 1 tablet by mouth as needed. Sklvhhym-Fq-Qnq-Fe-FA tab Take 1 tablet by mouth once daily. 30 tablet 5 escitalopram oxalate (LEXAPRO) 10 mg tablet Take 10 mg by mouth once daily. No current facility-administered medications for this visit. ALLERGIES Allergen Reactions Adhesive Tape (Irish* Rash Latex Rash Review Of Systems: General: negative for fatigue, unintentional weight gain or loss, fever, chills Skin: negative for ulceration, rash, hair changes, nail changes Eyes: negative for double vision, loss of vision, itching. Ears/Nose/Throat: negative for deafness, epistaxis and frequent URI's Respiratory: negative for shortness of breath, wheezing, pleurisy Cardiovascular: negative for chest pain, pressure, palpitations Gastrointestinal: negative for abdominal pain, nausea, emesis, diarrhea Genitourinary: negative for frequency, hematuria, dysuria, flank pain, vaginal bleeding Neurologic: negative for syncope, seizures, weakness, gait problems, numbness. Musculoskeletal: negative for joint pain, joint swelling, no muscle weakness Psychiatric: negative for sleep disturbance, anxiety, depression, suicidal or homicidal ideation Hematologic/Lymphatic/Immunologi c: negative for anemia, bleeding, bruising Endocrine: negative for heat or cold intolerance, polydipsia, polyuria Physical Exam: BP 92/68 Wt 48.1 kg (106 lb) LMP 10/01/2024 BMI 17.11 kg/m General: Alert, oriented x 3, NAD. HEENT: Normocephalic, atraumatic, mucous membranes moist, sclerae anicteric. Thyroid: Normal size, non-tender, no nodules. CV: RRR, normal S1S2 without murmur/gallops. Pulmonary: CTAB without wheezes/rales. Abdominal: Soft, non-tender, non-distended without rebound or guarding. Uterus non-tender. Extremities: Non-tender, no erythema or edema. Psych: normal mood and affect. OB - US today - IMPRESSION: - Single, live, intrauterine . - Tutwiler rump length measurement is consistent with the established gestational age. - No malformations visualized on a complete first trimester anatomic assessment. - The nuchal translucency measurement is 1.6 mm. - Not all structural malformations can be detected by ultrasound examination. Records/Labs: Available and relevant records reviewed in EMR Placental pathology 05/09/21 - FINAL DIAGNOSIS Twin placenta, 32 weeks gestation, vaginal delivery: - Dichorionic diamniotic twin placenta with separate discs, combined disc weight 592 g, appropriate for gestational age Twin 1 (1 cord clamp) - Hypercoiled umbilical cord - Disc weight 299 g - Mildly accelerated villous maturation for age suggestive of maternal vascular malperfusion - Changes of intrauterine inflammation/infection -- Minimal umbilical phlebitis -- Moderate acute chorionitis of extraplacental membranes Twin 2 (2 cord clamps) - Disc weight 293 g - Changes of maternal vascular malperfusion -- Mildly accelerated villous maturation for age -- Single remote infarct - Laminar decidual necrosis Impression: Boss gestation at 12w4d History of PTD x 2 Depression - stable on SSRI Family history of Russel's disease History of genital HSV Plan: During consultation today we discussed the following recommendations for her care: History of PTD x 2 We reviewed her history of prior spontaneous PTD at 28 weeks gestation followed by a spontaneous PTD at 32 weeks gestation in a twin . While she had cervical shortening/advanced dilation in prior pregnancies, review of records does not demonstrate cervical examination or clinical presentations suggestive of cervical insufficiency. We discussed the implications of a previous on subsequent outcomes including the increased risk of a recurrent delivery, which may occur at an earlier gestational age than her prior PTD. We reviewed that outcomes are primarily dependent on gestational age at delivery and an overview of the gestational age related risks of prematurity was provided. We discussed that therapies to prevent recurrent are limited. Based on the available evidence to date, 17P is not recommended for prevention of delivery and data on vaginal progesterone for prevention of spontaneous PTD remains limited. With discussion today she does not desire progesterone for prevention of . Reviewed that emerging evidence has demonstrated that ASA may reduce the risk of spontaneous , is safe during , and also has been demonstrated to reduce the risk of Pre-E. With discussion today, she desires initiation of ASA prophylaxis and a prescription was sent to her preferred pharmacy. We reviewed the recommendation for midtrimester TVCL screening (biweekly from 16w0d through 23w6d weeks) with consideration of cerclage placement should a significantly shortened cervix be detected. Lastly, recommend clinical surveillance for labor and PTB symtpoms/precautions were reviewed. Depression - stable on SSRI We reviewed the maternal and risks of depression during . Currently her depression is controlled on SSRI therapy and she has follow-up with a therapist/psychiatrist (community-based, not at [facility]). Availability of psychiatry resources at [facility] was reviewed. Risks/benefits of antidepressants (SSRI) were reviewed including the association with a withdrawal syndrome and persistent pulmonary hypertension of the . The maternal/ risks of untreated maternal depression were also discussed. At his time she plans to continue therapy. Reviewed the increased risk of depression in patients with a history of depression. Recommend serial mood evaluation in and close monitoring for depression (early PP visit). Family history of Russel's disease We reviewed the implications of her family history of [place]'s disease. We reviewed that [place]'s disease is an inherited progressive neurodegenerative disorder characterized by choreiform movements, psychiatric problems, and dementia. 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 The availability of genetic counseling and testing was reviewed and is desired by the patient. Genetic counseling was ordered. History of genital HSV We reviewed the maternal and risks of genital HSV in . Recommend suppressive therapy from 36 weeks until delivery). OB precautions and PTB precautions were reviewed. First trimester counseling was provided. All patient questions were addressed to her satisfaction today. Thank you for your referral to Maternal Medicine. At this point I recommended ongoing routine OB care with you. I would be happy to see Ms. Schwab again if any questions arise. Sincerely, Scott Alcazar MD I spent a total of 50 minutes on the date of the service which included preparing to see the patient, [id number] patient care, completing clinical documentation, obtaining and/or reviewing separately obtained history, performing a medically appropriate examination, counseling and educating the patient/family/caregiver, ordering medications, tests, or procedures, communicating results to the patient/family/caregiver, and care coordination (not separately reported). documented in this encounter [facility] 12-28-2024 Note HNO ID: [id number] Author: SCOTT ALCAZAR MD Service: ? Author Type: Physician Type: Progress Notes Filed: 12/28/2024 10:12 Note Text: Maternal Medicine Consult Note Requested by: Paola MARVIN Reporting: Note/evaluation from today sent to requesting provider via shared medical record. History of Present Illness 24 year old at 12w4d presenting for MFM consultation secondary to a history of x 2. Her OB history is notable for a in 2019 where she presented at 28w6d in advanced labor (c/c/+2) and had a precipitous of a 3#2 without complication. She had multiple evaluations for threatened PTL prior to her delivery admission with some cervical dilation of 1-2 cm (without presentation/description of CI), and she received a course of ANCS prior to delivery. Reports that her had an uncomplicated course in the NICU is currently healthy and has some developmental/learning delay but is otherwise meeting all milestones. In 2020, she had a DCDA twin that was complicated by midtrimester cervical shortening/dilation (11 mm at ~24 weeks gestation) that was managed with vaginal progesterone. She then had PPROM at at 31w1d. She had a short period of latency with inpatient management of PPROM, and she had onset of spontaneous labor at 32w0d. She had an uncomplicated of both neonates, and weights were 3#9 and 4#1 respectively. Manual extraction of the placenta was required due to vaginal bleeding during the third stage. Placental pathology noted maternal vascular malperfusion, changes of intrauterine infection/inflammation, and a single remote infarct. The remainder of her recovery was otherwise uncomplicated. Reports that her twins are healthy and meeting all developmental milestones. She denies a history of GDM or hypertensive disorders of . She denies a history of cervical trauma or surgery. She also has a history of an ectopic treated with right salpingectomy. Her past medical and surgical histories are notable for depression (stable on SSRI), genital HSV, and a family history of [place]'s disease (maternal grandmother; patient and her mother have not had genetic evaluation). She reports no significant gynecologic history and denies fibroids, dysplasia requiring conization, or other gynecologic conditions or surgeries. She denies any personal or family history of significant genetic diagnoses for herself or her partner. She denies tobacco, alcohol or illicit substance abuse. She has no known drug allergies and her current mediations include vitamins, ASA, and lexapro. She reported feeling well overall today and denied abdominal pain, cramping, VB, or LOF. ROS otherwise negative as below. PAST MEDICAL HISTORY Diagnosis Date Anemia during in second trimester (HCC) 05/18/2019 Depression GERD (gastroesophageal reflux disease) H/O seasonal allergies Herpes simplex virus (HSV) infection IBS (irritable bowel syndrome) PAST SURGICAL HISTORY Procedure Laterality Date SALPINGECTOMY Right 04/01/2024 laparoscopic, [facility] for ectopic Family History Problem Relation Age of Onset Hypertension Mother other (insomnia) Mother other (fibromyalgia) Mother other (IBS) Mother Heart Attack Father Depression Sister No Known Problems Brother Diabetes Maternal Grandmother Hypertension Maternal Grandmother other (Russel's Disease) Maternal Grandmother Cancer Maternal Grandfather Lung Hypertension Maternal Grandfather Alcohol/Drug Paternal Grandmother Alcohol/Drug Paternal Grandfather other (acid reflux) Son Current Outpatient Medications Medication Sig Dispense Refill aspirin, enteric coated (ECOTRIN LOW STRENGTH) 81 mg EC tablet Take 1 tablet by mouth once daily. 90 tablet 3 valACYclovir (VALTREX) 1 gram tablet Take 1 tablet by mouth as needed. Picmtoog-Dh-Iib-Fe-[id number] tab Take 1 tablet by mouth once daily. 30 tablet 5 escitalopram oxalate (LEXAPRO) 10 mg tablet Take 10 mg by mouth once daily. No current facility-administered medications for this visit. ALLERGIES Allergen Reactions Adhesive Tape (Irish* Rash Latex Rash Review Of Systems: General: negative for fatigue, unintentional weight gain or loss, fever, chills Skin: negative for ulceration, rash, hair changes, nail changes Eyes: negative for double vision, loss of vision, itching. Ears/Nose/Throat: negative for deafness, epistaxis and frequent URI's Respiratory: negative for shortness of breath, wheezing, pleurisy Cardiovascular: negative for chest pain, pressure, palpitations Gastrointestinal: negative for abdominal pain, nausea, emesis, diarrhea Genitourinary: negative for frequency, hematuria, dysuria, flank pain, vaginal bleeding Neurologic: negative for syncope, seizures, weakness, gait problems, numbness. Musculoskeletal: negative for joint pain, kaye (more content not included)... [facility] 12-14-2024 Telephone encounter Note Appointment scheduled with [facility]. Patient informed [facility] 12-14-2024 Miscellaneous Notes Appointment scheduled with [facility]. Patient informed Marcia, Please see note below and Paola's response: Patient saw Paola Hill 11/30/2024 and in her notes it states Will order MFM consult for further discussion. History of . 1st delivery at 28w6d, 2nd delivery of twins ar 32 weeks. Please order MFM consult if you want one done . No appointments prior to that date Ask one of the providers that regular see OB pt. Paola Hill APRN.WELDING MACHINE OPERATOR FRICTION Patient is scheduled for nuchal ultrasound on 12/28. This is MFM day . Do you want MFM referral for history of labor? Notes from 11/30 visit. Under plan notes :History of . Will order MFM consult for further discussion. Please order MFM consult if you want one done documented in this encounter [facility] 12-14-2024 Telephone encounter Note Marcia, Please see note below and Paola's response: Patient saw Paola Hill 11/30/2024 and in her notes it states Will order MFM consult for further discussion. History of . 1st delivery at 28w6d, 2nd delivery of twins ar 32 weeks. Please order MFM consult if you want one done . No appointments prior to that date [facility] 12-14-2024 Telephone encounter Note Ask one of the providers that regular see OB pt. Paola Hill APRN.MATTHEW [facility] 12-14-2024 Telephone encounter Note Patient is scheduled for nuchal ultrasound on 12/28. This is MFM day . Do you want MFM referral for history of labor? Notes from 11/30 visit. Under plan notes :History of . Will order MFM consult for further discussion. Please order MFM consult if you want one done [facility] 12-02-2024 Telephone encounter Note 1st risk assessment form submitted 12/02/24 Donaldo Desai RN [facility] 12-02-2024 Miscellaneous Notes 1st risk assessment form submitted 12/02/24 Donaldo Desai RN documented in this encounter [facility] 11-30-2024 Note HNO ID: [id number] Author: PAOLA HILL APRN.CNP Service: ? Author Type: Nurse Practitioner Type: Progress Notes Filed: 11/30/2024 09:01 Note Text: Patient declined facetor. INITIAL OB ASSESSMENT HPI: Ching is a 24 year old White here to establish Obstetrical Care. Patient's last menstrual period was 09/11/2024 (exact date). from OB Dating Form. was unplanned but accepted Complaints: No OB History Gravida4 Para2 Term0 Preterm2 AB1 Living3 SAB0 IAB0 Ectopic1 Multiple1 Live Births3 Previous history: Prior : No History of 4th degree laceration: No History of shoulder dystocia: No History of Hypertensive disorders including pre-eclampsia or gestational hypertension: No History of gestational diabetes: No Patient's Risk Screening for delivery: Have you had a prior boss between 20w and 36w6d? No How many pregnancies have you had before? 4 Did you have a previous baby with a GBS Infection? No Please select all that apply for any prior : Baby small for gestational age MEDICAL/PSYCHOSOCIAL HISTORY: History of hemorrhage or bleeding concerns: No Thyroid Disease: No History of chronic hypertension: No History of pre-existing diabetes: No ABO/RH(D) Date Value Ref Range Status 05/08/2021 O POSITIVE Final BMI 16.56 kg/(m2) Last Pap: History of abnormal pap: Yes Prior treatment for cervical dysplasia: none. Last HPV: History of STDs: Chlamydia; Trichomonas Partner History of STDs: None and HSV Did you have a partner with Herpes? (!) Yes Tobacco use: No E-Cigarette/Vaping Use: Yes Caffeine use: Yes Drug use: No Alcohol use: No Multivitamin with Folic acid: Yes Would refuse blood transfusion if medically necessary: No Social Needs: How often does this describe you? I don't have enough money to pay my bills: Never Within the past 12 months, have you worried that your food would run out before you had money to buy more? Never In the past 12 months, has lack of reliable transportation kept you from going to medical appointments or work, or from getting things needed for daily living? Never In the past 12 months, have you had any concerns about having a place to live, or about the condition or quality of your housing? Never Would you like more information on any of the following (please check all that apply)? Not interested Social History: Do you have any history of depression, anxiety, PTSD, or other mood problems? Yes Do you have a history of abuse or trauma that may impact your experience? No Are you currently employed? Yes Depression/Anxiety Screening: denies, admits to symptoms of depression. OB Depression and Anxiety Screening- This Encounter Over the past 2 weeks have you felt down, depressed, or hopeless? Negative Over the past two weeks, have you felt little interest or pleasure in doing things?? Positive - Further Testing Indicated I have been able to laugh and see the funny side of things. Not quite so much now I have looked forward with enjoyment to things. Rather less than I used to I have blamed myself unnecessarily when things went wrong. Not very often I have been anxious or worried for no good reason. Hardly ever I have felt scared or panicky for no good reason. No, not at all Things have been getting on top of me. No, most of the time I have coped quite well I have been so unhappy that I have had difficulty sleeping. Not at all I have felt sad or miserable. No, not at all I have been so unhappy that I have been crying. Only occasionally The thought of harming myself has occurred to me. Never [place] Depression Scale Total 6 Feeling nervous, anxious or on edge 1-Several days Not being able to stop or control worrying 0-Not al all Anxiety Pre-Screening Total (If >/= 3 additional questions will be reviewed) 1 Genetic Screening: Partner present: No Patient verbalized knowledge of partner family health history: Yes Do you or your partner have any personal or family history of defects not previously discussed: No Do you have history of a complicated by anomaly, genetic condition, or demise: No Preeclampsia Risk Screening: Screening for prevention of preeclampsia: High risk factors: None Moderate risk ractors: None OB Risk Screening: Completed, positive findings include: Patient answered 'Yes' to Partner with Herpes Patient answered 'Yes' they had a prior boss between 20w and 36w6d. Marital Status: Partner: Name: Rich Schwab Age: 36 Occupation: unemployed Gender: Male PAST MEDICAL HISTORY Diagnosis Date Anemia during in second trimester (HCC) 05/18/2019 Depression GERD (gastroesophageal reflux disease) H/O seasonal allergies Herpes simplex virus (HSV) infection IBS (irritable bowel syndrome) PAST SURG (more content not included)... [facility] 11-30-2024 History of Presen t illness Narrative Patient declined facetor. INITIAL OB ASSESSMENT HPI: Ching is a 24 year old White here to establish Obstetrical Care. Patient's last menstrual period was 09/11/2024 (exact date). from OB Dating Form. was unplanned but accepted Complaints: No OB History Gravida4 Para2 Term0 Preterm2 AB1 Living3 SAB0 IAB0 Ectopic1 Multiple1 Live Births3 Previous history: Prior : No History of 4th degree laceration: No History of shoulder dystocia: No History of Hypertensive disorders including pre-eclampsia or gestational hypertension: No History of gestational diabetes: No Patient's Risk Screening for delivery: Have you had a prior boss between 20w and 36w6d? No How many pregnancies have you had before? 4 Did you have a previous baby with a GBS Infection? No Please select all that apply for any prior : Baby small for gestational age MEDICAL/PSYCHOSOCIAL HISTORY: History of hemorrhage or bleeding concerns: No Thyroid Disease: No History of chronic hypertension: No History of pre-existing diabetes: No ABO/RH(D) Date Value Ref Range Status 05/08/2021 O POSITIVE Final BMI 16.56 kg/(m^2) Last Pap: History of abnormal pap: Yes Prior treatment for cervical dysplasia: none. Last HPV: History of STDs: Chlamydia; Trichomonas Partner History of STDs: None and HSV Did you have a partner with Herpes? (!) Yes Tobacco use: No E-Cigarette/Vaping Use: Yes Caffeine use: Yes Drug use: No Alcohol use: No Multivitamin with Folic acid: Yes Would refuse blood transfusion if medically necessary: No Social Needs: How often does this describe you? I don't have enough money to pay my bills: Never Within the past 12 months, have you worried that your food would run out before you had money to buy more? Never In the past 12 months, has lack of reliable transportation kept you from going to medical appointments or work, or from getting things needed for daily living? Never In the past 12 months, have you had any concerns about having a place to live, or about the condition or quality of your housing? Never Would you like more information on any of the following (please check all that apply)? Not interested Social History: Do you have any history of depression, anxiety, PTSD, or other mood problems? Yes Do you have a history of abuse or trauma that may impact your experience? No Are you currently employed? Yes Depression/Anxiety Screening: denies, admits to symptoms of depression. OB Depression and Anxiety Screening- This Encounter Over the past 2 weeks have you felt down, depressed, or hopeless? Negative Over the past two weeks, have you felt little interest or pleasure in doing things? Positive - Further Testing Indicated I have been able to laugh and see the funny side of things. Not quite so much now I have looked forward with enjoyment to things. Rather less than I used to I have blamed myself unnecessarily when things went wrong. Not very often I have been anxious or worried for no good reason. Hardly ever I have felt scared or panicky for no good reason. No, not at all Things have been getting on top of me. No, most of the time I have coped quite well I have been so unhappy that I have had difficulty sleeping. Not at all I have felt sad or miserable. No, not at all I have been so unhappy that I have been crying. Only occasionally The thought of harming myself has occurred to me. Never [place] Depression Scale Total 6 Feeling nervous, anxious or on edge 1-Several days Not being able to stop or control worrying 0-Not al all Anxiety Pre-Screening Total (If >/= 3 additional questions will be reviewed) 1 Genetic Screening: Partner present: No Patient verbalized knowledge of partner family health history: Yes Do you or your partner have any personal or family history of defects not previously discussed: No Do you have history of a complicated by anomaly, genetic condition, or demise: No Preeclampsia Risk Screening: Screening for prevention of preeclampsia: High risk factors: None Moderate risk ractors: None OB Risk Screening: Completed, positive findings include: Patient answered 'Yes' to Partner with Herpes Patient answered 'Yes' they had a prior boss between 20w and 36w6d. Marital Status: Partner: Name: Rich Schwab Age: 36 Occupation: unemployed Gender: Male PAST MEDICAL HISTORY Diagnosis Date Anemia during in second trimester (HCC) 05/18/2019 Depression GERD (gastroesophageal reflux disease) H/O seasonal allergies Herpes simplex virus (HSV) infection IBS (irritable bowel syndrome) PAST SURGICAL HISTORY Procedure Laterality Date NONE SALPINGECTOMY Right 04/01/2024 laparoscopic, D&C for ectopic Current Outpatient Medications Medication Sig Dispense Refill [id number] tab Take 1 tablet by mouth once daily. 30 tablet 5 escitalopram oxalate (LEXAPRO) 10 mg tablet Take 10 mg by mouth once daily. ondansetron orally disintegrating (ZOFRAN ODT) 4 mg disintegrating tablet Take 1 tablet by mouth every 6 hours as needed for nausea/vomiting. (Patient not taking: Reported on 11/14/2024) 18 tablet 0 busPIRone (BUSPAR) 10 mg tablet Take 10 mg by mouth three times a day. (Patient not taking: Reported on 11/14/2024) valACYclovir (VALTREX) 1 gram Take 1 tablet by mouth once daily. (Patient not taking: Reported on 11/14/2024) 30 tablet 5 No current facility-administered medications for this visit. Allergies As of Date: 11/30/2024 Allergen Noted Reaction ADHESIVE TAPE (ROSINS) 02/04/2014 Rash LATEX Rash Fully Assessed 11/24/2024 Does patient have penicillin allergy: No REVIEW OF SYSTEMS: GENERAL: Negative for: Fever or Chills HEENT: Negative for: Headache, Impaired Vision, Ringing in Ears, Nosebleeds NECK: Negative for: Swelling, Pain, Stiffness RESPIRATORY: Negative for: Cough, Shortness of breath, Wheezing GASTROINTESTINAL: Positive for: Nausea and Vomiting and diarrhea MUSCULOSKELETAL: Negative for: Muscle or joint pain, stiffness, Joint swelling NEUROLOGIC/PSYCHIATRIC: Negative for: Weakness, Paralysis, Numbness, Tingling, Tremor, Anxiety, Depression, Memory loss SKIN: Negative for: Rash, Itching GENITOURINARY: Negative for: vaginal itching, vaginal discharge, hematuria or dysuria SENSITIVE EXAM: The sensitive examination was discussed with the Patient or Patient's Authorized Clerical Clerk. As applicable, any other physician, advance practice provider, medical student, or other health professional student that will be observing or involved in the sensitive examination for educational or training purposes was discussed with the Patient or Authorized Clerical Clerk. The Patient or Authorized Clerical Clerk has agreed to proceed with the sensitive examination. (Sensitive examination includes inspection and/or palpation of the breasts, pelvis, prostate and anorectal regions). PHYSICAL EXAM: BP 98/60 Ht 5' 6" (1.68m) Wt 102 lb 9.6 oz (46.5kg) LMP 09/11/2024 BMI 16.57 kg/(m^2). GENERAL: pleasant in no apparent distress DERMATOLOGY: Normal, without lesions, non-icteric, and non-hirsute NECK: Supple, full range of motion, no adenopathy, and thyroid normal CHEST: Normal inspiratory effort BREAST: soft, non-tender, symmetric, no dominant mass, normal nipple-areolar complex, no lymphadenopathy, and no nipple discharge ABDOMEN: soft, non-tender, and no masses NEURO: alert and oriented x3,exam grossly non-focal PELVIS: External genitalia normal without lesions. Perineal body intact. No vaginal or cervical lesions. Cervix closed. No adnexal masses or tenderness. Clinical Pelvimetry: Pelvimetry clinically assessed as adequate Limited OB ultrasound exam: single intrauterine and POCUS performed. +cardiac activity, CRL consistent with LMP. Paola Hill APRN.MATTHEW ASSESSMENT: 24 year old at 11w3d wks gestational age PLAN: 1) Patient oriented to practice. Patient given new OB orientation folder. Discussed nutrition, folic acid supplementation, dietary guidelines, exercise, smoking, alcohol, caffeine, and drug use. Discussed gestational weight gain guidelines. Discussed routine OB labs including STD/HIV. Discussed how to access Your guide to a health and the [employer]. Reviewed midwifery and agricultural service technician services that are available. 2) Screening: Hemoglobin A1C: ordered Baby Aspirin: The patient has been counseled about the potential benefits of low dose aspirin in and our recommendation that this be offered to all patients, regardless of whether they meet the high risk criteria specified above. She Accepts Aneuploidy Screening: Discussed aneuploidy screening, nuchal translucency/first trimester early anatomy ultrasound and NIPT. The risks/benefits and limitations of NIPT/aneuploidy screening were reviewed including the potential for false negative and false positive results. The availability of genetic counseling was reviewed. Information on aneuploidy screening was provided. The patient chooses to proceed with First trimester early anatomy ultrasound (12-13w6d) and If concerns with insurance coverage, patient to call back for sequential order. [facility] Carrier Screening: Discussed myriad carrier screening. We discussed the availability of professional-society guided carrier screening and reviewed the conditions screened and limitations of screening. The availability of genetic counseling was reviewed. Information on carrier screening was provided. The patient Declines 3) Patient offered option of Virtual Visits. Patient unsure. May consider in future. 4) History of . Will order MFM consult for further discussion. Follow up in 4 weeks or sooner prn. Paola Hill APRN.WELDING MACHINE OPERATOR FRICTION documented in this encounter [facility] 11-30-2024 Instructions Adwoa Conrad LPN - 11/30/2024 7:57 AM EDT Please select the following link to access the [facility] Your Guide to a Healthy . [email or web address] documented in this encounter [facility] 11-25-2024 Telephone encounter Note Called the patient using phone number listed in chart. Patient answered but did not have time to go over the questions today. Patient asked if she could call the office back. Patient is to call 11/26/2024. Miriam Flores MA [facility] 11-25-2024 Miscellaneous Notes Called the patient using phone number listed in chart. Patient answered but did not have time to go over the questions today. Patient asked if she could call the office back. Patient is to call 11/26/2024. Miriam Flores MA documented in this encounter [facility] 11-24-2024 Note HNO ID: [id number] Author: YOSI PAYNE APRN.MATTHEW Service: ? Author Type: Nurse Practitioner Type: Progress Notes Filed: 11/24/2024 10:21 Note Text: [facility] Subjective Barbara Schwab is a 24 year old female. Patient presents with: Sore Throat: ST, cough, congestion, GUPTA and bodyaches x 2 days HPI Nontoxic-appearing 24-year-old female presents urgent care chief complaint sore throat nasal congestion cough body aches chills fatigue. Due to symptoms 2 days. Associate symptoms listed above. OTC medications none. Sick contact similar signs symptoms. Denies any chest pain shortness of breath or pleuritic pain. No abdominal pain. No change in bowel or bladder habits. Able swelling and secretions no decreased range of motion of neck. Is currently 8 weeks . Past medical history prescription medications allergies reviewed. Review of Systems Constitutional: Positive for chills and fatigue. Negative for diaphoresis and fever. HENT: Positive for rhinorrhea, sinus pain and sore throat. Negative for congestion, drooling, ear discharge, ear pain, sinus pressure, sneezing and trouble swallowing. Eyes: Negative for pain, discharge, redness, itching and visual disturbance. Respiratory: Positive for cough. Negative for chest tightness, shortness of breath and wheezing. Cardiovascular: Negative for chest pain. Gastrointestinal: Negative for abdominal distention, abdominal pain, blood in stool, constipation, diarrhea, nausea and vomiting. Genitourinary: Negative for difficulty urinating and dysuria. Musculoskeletal: Negative for arthralgias, joint swelling, neck pain and neck stiffness. Skin: Negative for rash. Neurological: Positive for headaches. Negative for dizziness, weakness and numbness. Objective BP 118/72 Pulse 89 Temp 36.8 ?C (98.2 ?F) (Tympanic) Resp 18 Wt 47.7 kg (105 lb 2.6 oz) LMP 10/01/2024 (Exact Date) SpO2 99% Physical Exam Constitutional: Appearance: Normal appearance. HENT: Head: Normocephalic. Jaw: No trismus, tenderness, swelling or pain on movement. Nose: Congestion present. Mouth/Throat: Mouth: Mucous membranes are moist. Pharynx: Oropharynx is clear. Uvula midline. No oropharyngeal exudate or posterior oropharyngeal erythema. Eyes: Conjunctiva/sclera: Conjunctivae normal. Cardiovascular: Rate and Rhythm: Normal rate. Pulmonary: Effort: Pulmonary effort is normal. Breath sounds: Normal breath sounds. No wheezing, rhonchi or rales. Abdominal: Palpations: Abdomen is soft. Tenderness: There is no abdominal tenderness. There is no guarding or rebound. Musculoskeletal: General: Normal range of motion. Cervical back: Normal range of motion and neck supple. No edema or erythema. No pain with movement. Normal range of motion. Lymphadenopathy: Cervical: No cervical adenopathy. Skin: General: Skin is warm. Findings: No rash. Neurological: General: No focal deficit present. Mental Status: She is alert and oriented to person, place, and time. Mental status is at baseline. {ASSESSMENT/PLAN: 1. Sore throat - ICD9: 462, ICD10: J02.9 (primary diagnosis) - STREP A MOLECULAR (POC) 2. Viral illness - ICD9: 079.99, ICD10: B34.9 - Discussed viral etiology and rationale for treatment. - Rapid strep negative in office today - Symptomatic treatment with prn analgesia - Supportive care with fluids and rest No evidence of bacterial infection. Strep test negative. Treat as viral etiology. self safe meds discussed. patient was educated on supportive therapies. Patient will follow up with primary care provider as needed. Patient was instructed to immediately proceed to emergency room for any new, worsening, or symptoms lasting longer than anticipated. The patient's clinical presentation is otherwise unremarkable at this time. Based on exam and clinical finding, the patient is stable for discharge. Plan of care was discussed with patient. Patient verbalizes understanding and agrees to plan of care. This note was generated using [employer] software. It may contain errors in wording, punctuation, or spelling. Yosi Payne APRN.WELDING MACHINE OPERATOR FRICTION History and Record Review Clinical information obtained from an independent historian. History obtained from or confirmed by: parent. External record(s) reviewed: prior outpatient record. Disposition The patient was discharged. OTC Medications were advised: Procedures [facility] 11-14-2024 Note HNO ID: [id number] Author: ANN MARIE ARIZA APRN.WELDING MACHINE OPERATOR FRICTION Service: ? Author Type: Nurse Practitioner Type: Progress Notes Filed: 11/14/2024 13:36 Note Text: Subjective HPI HPI Barbara Schwab is a 24 year old female who presents today for CC of continued right sided back pain Back Pain: - Severe back pain causing significant discomfort and sleep disturbances. - Attempts to alleviate pain with stretching, ice application, and supportive measures have been ineffective. - Pain management options are limited due to . - She was seen on 11.08.2024 here, advised tylenol/stretching - She was seen in [place] ED on 11.11.2024 with normal labs, negative urine Pain is worse with movement and bending 7 weeks with confirmed IUP BP 108/62 Pulse 106 Temp 36.9 ?C (98.4 ?F) Resp 16 Wt 48.5 kg (106 lb 14.8 oz) LMP 10/01/2024 (Exact Date) SpO2 99% Social History Tobacco Use - Smoking status: Former Current packs/day: 0.00 Types: Cigarettes Start date: 07/05/2018 Quit date: 01/03/2019 Years since quittin.8 - Smokeless tobacco: Former Types: Chew Quit date: 01/31/2019 Vaping Use - Vaping status: current everyday user Substance Use Topics - Alcohol use: Never - Drug use: Not Currently Types: Marijuana PAST MEDICAL HISTORY Diagnosis Date - Anemia during in second trimester (HCC) 05/18/2019 - Depression - GERD (gastroesophageal reflux disease) - H/O seasonal allergies - Herpes simplex virus (HSV) infection - IBS (irritable bowel syndrome) I have confirmed and edited as necessary, the [facility] Review of Systems Constitutional: Negative for chills and fever. Musculoskeletal: Positive for back pain (right flank pain). Negative for joint pain and myalgias. Skin: Negative for itching and rash. All other systems reviewed and are negative. Objective Physical Exam History and Record Review External record(s) reviewed: prior labs/imaging and prior outpatient record. Findings from review of outpatient records: [place] ED on 11.11.2024 - negative for uti, labs normal Findings from review of prior labs/imaging: Previous Renal Function Panel Reviewed No results within last 365 days. Differential Diagnoses - musculoskeletal Recording using [employer] software for draft documentation of the visit was discussed with the patient/authorized marketing sales representative; all questions welcomed and answered. Patient/authorized marketing sales representative agreed to proceed ASSESSMENT/PLAN: 1. Acute midline low back pain without sciatica - ICD9: 724.2, ICD10: M54.50 Urine dip negative, no blood on dip Will check us advised not a good indicator for stone Advise to call OB tomorrow to set up appointment for further evaluation. - US KIDNEY/BLADDER Diagnosis and treatment plan were discussed and questions were answered to the patient's satisfaction. Pt acknowledged understanding of concepts and follow up plan. Specific signs and symptoms that would indicate the need for higher level of care were discussed in detail warranting prompt ER evaluation. Ann Marie Ariza APRN.[facility] 11-14-2024 History of Presen t illness Narrative Subjective HPI HPI Barbara Schwab is a 24 year old female who presents today for CC of continued right sided back pain Back Pain: - Severe back pain causing significant discomfort and sleep disturbances. - Attempts to alleviate pain with stretching, ice application, and supportive measures have been ineffective. - Pain management options are limited due to . - She was seen on 11.08.2024 here, advised tylenol/stretching - She was seen in [place] ED on 11.11.2024 with normal labs, negative urine Pain is worse with movement and bending 7 weeks with confirmed IUP BP 108/62 Pulse 106 Temp 36.9 C (98.4 F) Resp 16 Wt 48.5 kg (106 lb 14.8 oz) LMP 10/01/2024 (Exact Date) SpO2 99% Social History Tobacco Use Smoking status: Former Current packs/day: 0.00 Types: Cigarettes Start date: 07/05/2018 Quit date: 01/03/2019 Years since quittin.8 Smokeless tobacco: Former Types: Chew Quit date: 01/31/2019 Vaping Use Vaping status: current everyday user Substance Use Topics Alcohol use: Never Drug use: Not Currently Types: Marijuana PAST MEDICAL HISTORY Diagnosis Date Anemia during in second trimester (HCC) 05/18/2019 Depression GERD (gastroesophageal reflux disease) H/O seasonal allergies Herpes simplex virus (HSV) infection IBS (irritable bowel syndrome) I have confirmed and edited as necessary, the [facility] Review of Systems Constitutional: Negative for chills and fever. Musculoskeletal: Positive for back pain (right flank pain). Negative for joint pain and myalgias. Skin: Negative for itching and rash. All other systems reviewed and are negative. Objective Physical Exam History and Record Review External record(s) reviewed: prior labs/imaging and prior outpatient record. Findings from review of outpatient records: [place] ED on 11.11.2024 - negative for uti, labs normal Findings from review of prior labs/imaging: Previous Renal Function Panel Reviewed No results within last 365 days. Differential Diagnoses - musculoskeletal Recording using [employer] software for draft documentation of the visit was discussed with the patient/authorized marketing sales representative; all questions welcomed and answered. Patient/authorized marketing sales representative agreed to proceed ASSESSMENT/PLAN: 1. Acute midline low back pain without sciatica - ICD9: 724.2, ICD10: M54.50 Urine dip negative, no blood on dip Will check us advised not a good indicator for stone Advise to call OB tomorrow to set up appointment for further evaluation. - US KIDNEY/BLADDER Diagnosis and treatment plan were discussed and questions were answered to the patient's satisfaction. Pt acknowledged understanding of concepts and follow up plan. Specific signs and symptoms that would indicate the need for higher level of care were discussed in detail warranting prompt ER evaluation. Ann Marie Ariza APRN.WELDING MACHINE OPERATOR FRICTION documented in this encounter [facility] 11-11-2024 Discharge summary [facility] 11-11-2024 Radiology Diagnostic study note [facility] Imaging Services [address] [place], [place] [address] Kidney and Bladder MR#: [id number] Acct: [id number] Name: BARBARA SCHWAB Rep #: [id number] : 2000 F 24 From: Miguel Gómez MD PCP: Dr. Melissa Cabezas MD Status: REG ER Study:Kidney and Bladder Date of Exam: 0 11/11/24 Exam# [id number] Ordering Dr: Michele Mar MD PROCEDURE: KIDNEY AND BLADDER 11/11/2024 REASON FOR EXAM: RIGHT FLANK PAIN TECHNIQUE: Bilateral renal ultrasound. COMPARISON: None. FINDINGS: Kidneys: No renal mass is seen [place]: No significant hydronephrosis is seen on either side Cysts or Masses: None Other: Ureters are not visualized. RIGHT Kidney: No sonographic finding of right renal calculus is seen. Size: 11.2 x 5.6 x 5.4 cm Cortical Thickness (if discernible): 14 mm (>6mm is normal) LEFT Kidney: A nonobstructive left renal calculus is sonographically evident inferior pole, measured at 2.6 x 2.0 x 1.1 mm.. Size: 11.0 x 5.4 x 3.6 cm Cortical Thickness (if discernible): 12 mm (>6mm is normal). The urinary bladder is not visualized, and presumably decompressed. US/Kidney and Bladder IMPRESSION: 1. Nonobstructive small left inferior renal calculus. No right-sided calculus is sonographically identified. 2. No evidence of hydronephrosis. Reading Location: [facility] CC: Dr. Michele Mar MD; Dr. Melissa Cabezas MD ~ Residential Program Manager: Signed [facility] 11-11-2024 Discharge summary Note Date/Time November 11, 2024 4:26pm [facility] Medical Records Department [address] [place] [address] Emergency Department Summary 11/11/24 MR#: [id number] Acct: [id number] Name: BARBARA SCHWAB Rep #:[id number] : 2000 24 From: Michele Mar MD PCP: Dr. Melissa Cabezas MD Status:REG ER Location: ED HPI History of Present Illness Chief Complaint: Flank Pain Narrative Narrative: 24-year-old female past medical history of of ruptured ectopic with right salpingectomy last year presents with right flank pain that she has had since this morning. She relates history that she was seen in urgent care for upper back pain. She was taking Tylenol which was starting to relieve her pain. She is 6 weeks gestation currently and sees [facility]'s at the [facility]. She and her state that an ultrasound which did show an intrauterine . She denies any vaginal bleeding or lower pelvic pain but states thatwhen she bends over or moves she has pain in the right flank. It is both dull and achy and then can become sharp and stabbing. She denies any fevers or chills, no nausea or vomiting, no dysuria or hematuria, unrelieved with Tylenol. [facility] Medical History IBS (irritable bowel syndrome) Depression GERD (gastroesophageal reflux disease) Home Medications ?Medication ?Instructions ?Recorded ?Last Taken ?Type Prilosec 1 tab PO PRN ACID REFLUX 05/01/21 06:30 History valacyclovir 1 gram tablet 1,000 mg PO DAILY PRN hsv 0 11/11/20 05/01/21 06:30 History (Valtrex) pdvusmdt-pgg-Gl-FA 1 mg 1 tab PO DAILY pregna ncy 03/07/21 04/01/24 History tablet metronidazole 500 mg tablet 500 mg PO BID 04/01/24 History Allergy/AdvReac Type Severity Reaction Status Date / Time Latex, Natural Rubber AdvReac Rash Verified 11/11/24 11:49 Social History Smoking Status: Current every day smoker tobacco type: e-cigarettes ROS ROS ED ROS Narrative Constitutional: No fever, no chills. Cardiovascular: No chest pain. No palpitations. No pedal edema. Respiratory: No cough, no shortness of breath. Abdominal: No abdominal pain. No nausea. No vomiting. Genitourinary: No dysuria. No hematuria. No pelvic pain. No vaginal bleeding. Musculoskeletal: No myalgias. No arthralgias. Positive right low back pain. EXAM Physical Exam Narrative Exam Narrative: Afebrile. Vital signs noted. Nontoxic-appearing. Cardiovascular examination reveals a regular rate and rhythm. Lungs are clear to auscultation bilaterally. The abdomen is soft, nontender, without guarding or rebound. Positive bowel sounds. No CVA tenderness to percussion right. Neurological examination nonfocal nonlateralizing. Const Vital Signs: 11/11/24 11:49 11/11/24 13:49 11/11/24 15:21 Temperature 96.2 F L Temperature Source Temporal Pulse Rate 98 64 82 Respiratory Rate 16 18 16 Blood Pressure 112/82 H 108/78 114/62 Blood Pressure Mean 92 88 79 Pulse Ox 98 98 100 Oxygen Delivery Method Room Air Room Air Room Air MDM MDM MDM Narrative Medical decision making narrative: The differential diagnosis includes but not limited to pyelonephritis versus ureterolithiasis versus musculoskeletal back pain. Workup is mildly limited secondary to patient's being 6 weeks gestation. I have low concern for ectopic as they state they had an ultrasound which showed an intrauterine . Urinalysis will be obtained as well as basic laboratory work to check kidney function. Ultrasound will be performed of the kidney and bladder to look for hydronephrosis. I reviewed her laboratory work and she has normal white count 11.0 with hemoglobin 12.9, hematocrit 37.9, platelet count 279. Electrolyte panel is grossly unremarkable. LFTs are normal. Urinalysis obtained and while there are15 ketones, negative nitrites and no sign of infection with 0-5 WBCs. I do not feel antibiotics are indicated. Patient did request that urine for drugs of abuse be obtained as she is missing her drug court today. I reviewed this and it is negative. Review of the ultrasound radiology report shows no evidence of hydronephrosis on the right, no obstructing stone noted. At this point in time, I feel her back pain may be more musculoskeletal in nature. She will continue Tylenol as she is currently 6 weeks gestation. She will follow-up with her [facility] OUTCOMES LIAISON. I feel she can be discharged safely home with follow-up. Return instructions were reviewed. Disposition is discharged home in stable condition. History & Record Review Discussion w/independent historian: Patient Additional record(s) reviewed:: Prior ED visit (Noncontributory to current chiefcomplaint) Lab Data Attestation: I reviewed the patient's lab results. Labs: Laboratory Results - last 24 hr 11/11/24 11/11/24 13:32 15:20 WBC 11.0 RBC 4.23 Hgb 12.9 Hct 37.9 MCV 89.6 MCH 30.5 MCHC 34.0 RDW Std Deviation 43.1 RDW Coeff of Aida 13.2 Plt Count 279 MPV 10.9 Immature Gran % (Auto) 0.300 Neut % (Auto) 76.4 H Lymph % (Auto) 18.5 L [place] % (Auto) 4.2 Eos % (Auto) 0.1 Baso % (Auto) 0.5 Absolute Neuts (auto) 8.4 H Absolute Lymphs (auto) 2.04 Nucleated RBC % 0 Sodium 138 Potassium 3.6 Chloride 106 Carbon Dioxide 21.4 Anion Gap 10 BUN 5 Creatinine 0.55 L Estim Creat Clear Calc 121.32 Est GFR (MDRD) Non-Af 133 BUN/Creatinine Ratio 8.4 L Glucose 73 Calcium 8.8 Total Bilirubin 0.83 AST 18 ALT 6 Alkaline Phosphatase 39 Total Protein 6.1 Albumin 4.5 Globulin 1.5 L Albumin/Globulin Ratio 2.9 H Urine Color Straw Urine Clarity Clear Urine pH 6.5 Ur Specific [place] 1.010 Urine Protein Negative Urine Glucose (UA) Normal Urine Ketones 15 H Urine Occult Blood Negative Urine Nitrite Negative Urine Bilirubin Negative Urine Urobilinogen Normal Ur Leukocyte Esterase 25 H Urine RBC 0-5 SEEN Urine WBC 0-5 SEEN Ur Squamous Epith Cells 0-5 SEEN Urine Bacteria 0 SEEN Urine Mucus 0 SEEN Urine Opiates Screen NEGATIVE U Buprenorphine Qual NEGATIVE Ur Oxycodone Screen NEGATIVE Urine Methadone Screen NEGATIVE Urine Fentanyl Screen NEGATIVE Ur Barbiturates Screen NEGATIVE Ur Phencyclidine Scrn NEGATIVE Ur Amphetamines Screen NEGATIVE U Benzodiazepines Scrn NEGATIVE Urine Cocaine Screen NEGATIVE U Cannabinoids Screen NEGATIVE Radiography Diagnostic Testing: Clinical Impression(s) from Imaging Studies Renal Ultrasound 11/11/24 13:39 IMPRESSION: 1. Nonobstructive small left inferior renal calculus. No right-sided calculus is sonographically identified. 2. No evidence of hydronephrosis. Reading Location: [place] [address] Discharge Plan Triage Chief Complaint: Flank Pain ED Provider: Michele Mar Dx/Rx/DC Orders Clinical Impression: Right-sided back pain, Current determined by history Instructions: ED Back Pain (Acute or Chronic), ED Established ... Prescriptions: No Action Prilosec 1 tab PO PRN valacyclovir [Valtrex] 1 gram tablet 1,000 mg PO DAILY PRN (Reason: hsv) Patient Comments: Take 1 tablet by mouth once daily. After completing 3 day episodic course. 1 mg Tablet 1 tab PO DAILY metronidazole 500 mg tablet 500 mg PO BID Primary Care Provider: Melissa Cabezas Referrals: Melissa Cabezas MD [Primary Care Provider] - 3-5 Days if not improving Activity Restrictions/Additional Instructions: Follow-up with your [facility]COM[facility] LIAISON at the [facility]. Continue Tylenol as needed for pain. Return with fever, new or worsening symptoms. Print Language: Slovenian Disposition Disposition: Home, Self Care What to do if you have Problems For any increased pain, shortness of breath, bleeding, nausea or vomiting, chestpain, or any unexpected problems, contact your Primary Care Provider. Call [facility] ([phone]) or report to the closest Emergency Room. Call 911 if necessary. 11/11/24 1626 <Electronically signed by Michele Mar MD> Cosigner Signature (if applicable): CC: Dr. Melissa Cabezas MD ~ Signed [facility] Work Phone: [phone] NoteHNO ID: [id number] Author: BOBBI HOWARD MD Service: ? Author Type: Physician Type: Progress Notes Filed: 11/10/2024 08:54 Note Text: Barbara Schwab is a 24 year old female who presented for obstetrician/gynecologist ultrasound today. Encounter Diagnosis ICD-10-CM 1. History of ectopic Z87.59 2. Encounter for test, result positive ([facility]) Z32.01 Please see report under imaging tab. Bobbi Howard MD November 10, 2024 8:54 [facility]05-07-2025 History of Present illness Narrative * Bobbi Howard MD - 11/10/2024 8:54 AM EDT Barbara Schwab is a 24 year old female who presented for obstetrician/gynecologist ultrasound today. Encounter Diagnosis ICD-10-CM 1. History of ectopic Z87.59 2. Encounter for test, result positive ([facility]) Z32.01 Please see report under imaging tab. Bobbi Howard MD November 10, 2024 8:54 AM [facility] History of Present illness Narrative* Allen Wilson APRN.CNP - 11/08/2024 9:30 AM EDT [facility] Subjective HPI HPI Barbara Schwab is a 24 year old female who presents today for CC of low back/hip pain afterlifting beds few days ago. Denies injury. Has tried otc medication for relief. Symptoms are worsened by rom. Patient is 6 weeks . Denies abdominal pain, vaginal bleeding, change in bowel/bladder habits. .Patient presents with: lower back and right hip pain: X 3 days-heavy lifting PAST MEDICAL HISTORY Diagnosis Date Anemia during in second trimester ([facility]) 05/18/2019 Depression GERD (gastroesophageal reflux disease) H/O seasonal allergies Herpes simplex virus (HSV) infection IBS (irritable bowel syndrome) PAST SURGICAL HISTORY Procedure Laterality Date NONE SALPINGECTOMY Right 04/01/2024 laparoscopic, D&C for ectopic ALLERGIES Adhesive Tape (Rosins) and Latex MEDICATIONS Dnlajsoe-Cd-Yvm-Fe-FA tab Take 1 tablet by mouth once daily. ondansetron orally disintegrating (ZOFRAN ODT) 4 mg disintegrating tablet Take 1 tablet by mouth every 6 hours as needed for nausea/vomiting. busPIRone (BUSPAR) 10 mg tablet Take 10 mg by mouth three times a day. escitalopram oxalate (LEXAPRO) 10 mg tablet Take 10 mg by mouth once daily. valACYclovir (VALTREX) 1 gram Take 1 tablet by mouth once daily. FAMILY HISTORY Problem Relation Age of Onset Hypertension Mother other (insomnia) Mother other (fibromyalgia) Mother other (IBS) Mother Heart Attack Father Depression Sister No Known Problems Brother Diabetes Maternal Grandmother Hypertension Maternal Grandmother other ([place]'s Disease) Maternal Grandmother Cancer Maternal Grandfather Lung Hypertension Maternal Grandfather Alcohol/Drug Paternal Grandmother Alcohol/Drug Paternal Grandfather other (acid reflux) Son Social History Tobacco Use Smoking status: Former Current packs/day: 0.00 Types: Cigarettes Start date: 07/05/2018 Quit date: 01/03/2019 Years since quittin.8 Smokeless tobacco: Former Types: Chew Quit date: 01/31/2019 Vaping Use Vaping status: current everyday user Substance Use Topics Alcohol use: Never Drug use: Not Currently Types: Marijuana Review of Systems Constitutional: Negative for fever. Respiratory: Negative for cough. Cardiovascular: Negative for chest pain. Gastrointestinal: Negative for abdominal pain, constipation, diarrhea, nausea and vomiting. Genitourinary: Negative for dysuria and frequency. Musculoskeletal: Positive for back pain and myalgias. Skin: Negative for rash. Neurological: Negative for numbness. Objective BP 102/70 Pulse 97 Temp 36.3 C (97.3 F) (Tympanic) Resp 18 Wt 47.9 kg (105 lb 9.6 oz) LMP10/01/2024 (Exact Date) SpO2 99% Physical Exam Constitutional: General: She is not in acute distress. Appearance: Normal appearance. She is not diaphoretic. Cardiovascular: Pulses: Dorsalis pedis pulses are 2+ on the right side and 2+ on the left side. Posterior tibial pulses are 2+ on the right side and 2+ on the left side. Abdominal: General: Bowel sounds are normal. Palpations: Abdomen is soft. Tenderness: There is no abdominal tenderness. Musculoskeletal: Lumbar back: Spasms present. Decreased range of motion. Comments: Lumbar paraspinal muscles tender with palpation Neurological: Mental Status: She is alert and oriented to person, place, and time. Gait: Gait normal. Deep Tendon Reflexes: Reflex Scores: Patellar reflexes are 2+ on the right side and 2+ on the left side. {ASSESSMENT/PLAN: 1. Acute midline low back pain without sciatica - ICD9: 724.2, ICD10: M54.50 Home pt advised F/u with pcp if s/s persist/worsen/change Urgent f/u for red flag symptoms Allen Wilson APRN.MATTHEW History and Record Review External record(s) reviewed: prior outpatient record. Disposition The patient was discharged. OTC Medications were advised: Tylenol Procedures [facility] NoteHNO ID: [id number] Author: ALLEN WILSON APRN.MATTHEW Service: ? Author Type: Nurse Practitioner Type: Progress Notes Filed: 11/08/2024 10:15 Note Text: [facility] Subjective HPI HPI Barbara Schwab is a 24 year old female who presents today for CC of low back/hip pain after lifting beds few days ago. Denies injury. Has tried otc medication for relief. Symptoms are worsened by rom. Patient is 6 weeks . Denies abdominal pain, vaginal bleeding, change in bowel/bladder habits. .Patient presents with: lower back and right hip pain: X 3 days-heavy lifting PAST MEDICAL HISTORY Diagnosis Date Anemia during in second trimester (HCC) 05/18/2019 Depression GERD (gastroesophageal reflux disease) H/O seasonal allergies Herpes simplex virus (HSV) infection IBS (irritable bowel syndrome) PAST SURGICAL HISTORY Procedure Laterality Date NONE SALPINGECTOMY Right 04/01/2024 laparoscopic, [facility] for ectopic ALLERGIES Adhesive Tape (Rosins) and Latex MEDICATIONS Miwojqdv-Pm-Wpu-Fe-FA tab Take 1 tablet by mouth once daily. ondansetron orally disintegrating (ZOFRAN ODT) 4 mg disintegrating tablet Take 1 tablet by mouth every 6 hours as needed for nausea/vomiting. busPIRone (BUSPAR) 10 mg tablet Take 10 mg by mouth three times a day. escitalopram oxalate (LEXAPRO) 10 mg tablet Take 10 mg by mouth once daily. valACYclovir (VALTREX) 1 gram Take 1 tablet by mouth once daily. FAMILY HISTORY Problem Relation Age of Onset Hypertension Mother other (insomnia) Mother other (fibromyalgia) Mother other (IBS) Mother Heart Attack Father Depression Sister No Known Problems Brother Diabetes Maternal Grandmother Hypertension Maternal Grandmother other ([place] Disease) Maternal Grandmother Cancer Maternal Grandfather Lung Hypertension Maternal Grandfather Alcohol/Drug Paternal Grandmother Alcohol/Drug Paternal Grandfather other (acid reflux) Son Social History Tobacco Use Smoking status: Former Current packs/day: 0.00 Types: Cigarettes Start date: 07/05/2018 Quit date: 01/03/2019 Years since quittin.8 Smokeless tobacco: Former Types: Chew Quit date: 01/31/2019 Vaping Use Vaping status: current everyday user Substance Use Topics Alcohol use: Never Drug use: Not Currently Types: Marijuana Review of Systems Constitutional: Negative for fever. Respiratory: Negative for cough. Cardiovascular: Negative for chest pain. Gastrointestinal: Negative for abdominal pain, constipation, diarrhea, nausea and vomiting. Genitourinary: Negative for dysuria and frequency. Musculoskeletal: Positive for back pain and myalgias. Skin: Negative for rash. Neurological: Negative for numbness. Objective BP 102/70 Pulse 97 Temp 36.3 ?C (97.3 ?F) (Tympanic) Resp 18 Wt 47.9 kg (105 lb 9.6 oz) LMP 10/01/2024 (Exact Date) SpO2 99% Physical Exam Constitutional: General: She is not in acute distress. Appearance: Normal appearance. She is not diaphoretic. Cardiovascular: Pulses: Dorsalis pedis pulses are 2+ on the right side and 2+ on the left side. Posterior tibial pulses are 2+ on the right side and 2+ on the left side. Abdominal: General: Bowel sounds are normal. Palpations: Abdomen is soft. Tenderness: There is no abdominal tenderness. Musculoskeletal: Lumbar back: Spasms present. Decreased range of motion. Comments: Lumbar paraspinal muscles tender with palpation Neurological: Mental Status: She is alert and oriented to person, place, and time. Gait: Gait normal. Deep Tendon Reflexes: Reflex Scores: Patellar reflexes are 2+ on the right side and 2+ on the left side. {ASSESSMENT/PLAN: 1. Acute midline low back pain without sciatica - ICD9: 724.2, ICD10: M54.50 Home pt advised F/u with pcp if s/s persist/worsen/change Urgent f/u for red flag symptoms Allen Wilson APRN.WELDING MACHINE OPERATOR FRICTION History and Record Review External record(s) reviewed: prior outpatient record. Disposition The patient was discharged. OTC Medications were advised: [facility] NoteHNO ID: [id number] Author: MARCIA FARRELL APRN.CNM Service: ? Author Type: Dural Mechanic Type: Progress Notes Filed: 10/25/2024 08:35 Note Text: Barbara Schwab is a 24 year old female who presents for problem visit of missed period. Patient reports LMP was 10/01/24. She has been feeling "nauseated" and took test this past weekend which was faintly positive. Here today for confirmation. 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 History LMP: 10/11/2024 (Exact Date), Having periods Age at Menarche: Age at First : Age at Menopause: Global Professional History Comments: Sexual Activity: Yes; Male Contraception: No contraception data on record PAST MEDICAL HISTORY Diagnosis Date Anemia during in second trimester (HCC) 05/18/2019 Depression GERD (gastroesophageal reflux disease) H/O seasonal allergies Herpes simplex virus (HSV) infection IBS (irritable bowel syndrome) PAST SURGICAL HISTORY Procedure Laterality Date NONE SALPINGECTOMY Right 04/01/2024 laparoscopic, [facility] for ectopic FAMILY HISTORY Problem Relation Age of Onset Hypertension Mother other (insomnia) Mother other (fibromyalgia) Mother other (IBS) Mother Heart Attack Father Depression Sister No Known Problems Brother Diabetes Maternal Grandmother Hypertension Maternal Grandmother other ([place]'s Disease) Maternal Grandmother Cancer Maternal Grandfather Lung Hypertension Maternal Grandfather Alcohol/Drug Paternal Grandmother Alcohol/Drug Paternal Grandfather other (acid reflux) Son Social History Tobacco Use Smoking status: Former Current packs/day: 0.00 Types: Cigarettes Start date: 07/05/2018 Quit date: 01/03/2019 Years since quittin.8 Smokeless tobacco: Former Types: Chew Quit date: 01/31/2019 Vaping Use Vaping status: current everyday user Substance Use Topics Alcohol use: Never Drug use: Not Currently Types: Marijuana Current Outpatient Medications Medication Sig ondansetron orally disintegrating (ZOFRAN ODT) 4 mg disintegrating tablet Take 1 tablet by mouth every 6 hours as needed for nausea/vomiting. busPIRone (BUSPAR) 10 mg tablet Take 10 mg by mouth three times a day. escitalopram oxalate (LEXAPRO) 10 mg tablet Take 10 mg by mouth once daily. valACYclovir (VALTREX) 1 gram Take 1 tablet by mouth once daily. ondansetron orally disintegrating (ZOFRAN ODT) 4 mg disintegrating tablet Take 1 tablet by mouth every 6 hours as needed for nausea/vomiting. (Patient not taking: Reported on 10/14/2024) PNV Comb.Rx89-Jian,Carbonyl-FA 29 mg iron- 1 mg tab Take 1 tablet by mouth once daily. (Patient not taking: Reported on 10/25/2024) ondansetron orally disintegrating (ZOFRAN ODT) 4 mg disintegrating tablet Take 1 tablet by mouth every 6 hours as needed for nausea/vomiting. (Patient not taking: Reported on 09/20/2023) omeprazole (PRILOSEC) 20 mg capsule Take 20 mg by mouth once daily. (Patient not taking: Reported on 08/18/2024) ondansetron orally disintegrating (ZOFRAN ODT) 4 mg disintegrating tablet Take 1 tablet by mouth every 6 hours as needed for nausea/vomiting. (Patient not taking: Reported on 07/09/2023) vit 62-fsdx-dxcxk-dha (PRENATE MINI, FERR ASP GLYCIN,) 18-1-350 mg cap Take 1 Dose by mouth once daily. (Patient not taking: Reported on 09/20/2023) No current facility-administered medications for this visit. Allergies As of Date: 10/25/2024 Allergen Noted Reaction ADHESIVE TAPE (ROSINS) 02/04/2014 Rash LATEX Rash Fully Assessed 10/25/2024 REVIEW OF SYSTEMS Abdomen: No abdominal pain, nausea, vomiting, diarrhea, or constipation. Bladder: No dysuria, gross hematuria, urinary frequency, urinary urgency, or incontinence. Breast: No breast lumps, nipple d/c, overlying skin changes, redness or skin retraction. Expanded ROS: N/A Allergies and current medication updated:Yes SENSITIVE EXAM: Sensitive exam not performed. EXAM: LMP 10/11/2024 GENERAL: pleasant, female in no apparent distress HEENT: Normocephalic and atraumatic NECK: Supple and full range of motion DERMATOLOGY: Normal and without lesions BREAST: deferred CHEST: Normal inspiratory effort ABDOMEN: Deferred PELVIC: deferred BIMANUAL: deferred NEURO: alert and oriented x3,exam grossly non-focal EXTREMITIES: normal ASSESSMENT AND PLAN: Assessment AND Plan Encounter for test, result positive (HCC) Orders: HCG QUANTITATIVE; Standing History of ectopic Orders: HCG QUANTITATIVE; Standing - Urine HCG- POSITIVE - Gestational age by LMP of 10/01/24 is 3w - Bleeding / Pain precautions reviewed - Serial HCG levels due to hx of ectopic - Start vitamin- RX sent - RTO 5 weeks for NOB or sooner if needed Marcia Farrell APRN.[facility]04-21-2025 History of Present illness Narrative* Marcia Farrell APRN.[facility] - 10/25/2024 8:11 AM EDT Barbara Schwab is a 24 year old female who presents for problem visit of missed period. Patientreports LMP was 10/01/24. She has been feeling "nauseated" and took test this past weekendwhich was faintly positive. Here today for confirmation. 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 History LMP: 10/11/2024 (Exact Date), Having periods Age at Menarche: Age at First : Age at Menopause: Global Professional History Comments: Sexual Activity: Yes; Male Contraception: No contraception data on record PAST MEDICAL HISTORY Diagnosis Date Anemia during in second trimester ([facility]) 05/18/2019 Depression GERD (gastroesophageal reflux disease) H/O seasonal allergies Herpes simplex virus (HSV) infection IBS (irritable bowel syndrome) PAST SURGICAL HISTORY Procedure Laterality Date NONE SALPINGECTOMY Right 04/01/2024 laparoscopic, D&C for ectopic FAMILY HISTORY Problem Relation Age of Onset Hypertension Mother other (insomnia) Mother other (fibromyalgia) Mother other (IBS) Mother Heart Attack Father Depression Sister No Known Problems Brother Diabetes Maternal Grandmother Hypertension Maternal Grandmother other (Russel's Disease) Maternal Grandmother Cancer Maternal Grandfather Lung Hypertension Maternal Grandfather Alcohol/Drug Paternal Grandmother Alcohol/Drug Paternal Grandfather other (acid reflux) Son Social History Tobacco Use Smoking status: Former Current packs/day: 0.00 Types: Cigarettes Start date: 07/05/2018 Quit date: 01/03/2019 Years since quittin.8 Smokeless tobacco: Former Types: Chew Quit date: 01/31/2019 Vaping Use Vaping status: current everyday user Substance Use Topics Alcohol use: Never Drug use: Not Currently Types: Marijuana Current Outpatient Medications Medication Sig ondansetron orally disintegrating (ZOFRAN ODT) 4 mg disintegrating tablet Take 1 tablet by mouth every 6 hours as needed for nausea/vomiting. busPIRone (BUSPAR) 10 mg tablet Take 10 mg by mouth three times a day. escitalopram oxalate (LEXAPRO) 10 mg tablet Take 10 mg by mouth once daily. valACYclovir (VALTREX) 1 gram Take 1 tablet by mouth once daily. ondansetron orally disintegrating (ZOFRAN ODT) 4 mg disintegrating tablet Take 1 tablet by mouth every 6 hours as needed for nausea/vomiting. (Patient not taking: Reported on 10/14/2024) PNV Comb.By85-Vilf,Carbonyl-FA 29 mg iron- 1 mg tab Take 1 tablet by mouth once daily. (Patient nottaking: Reported on 10/25/2024) ondansetron orally disintegrating (ZOFRAN ODT) 4 mg disintegrating tablet Take 1 tablet by mouth every 6 hours as needed for nausea/vomiting. (Patient not taking: Reported on 09/20/2023) omeprazole (PRILOSEC) 20 mg capsule Take 20 mg by mouth once daily. (Patient not taking: Reported on 08/18/2024) ondansetron orally disintegrating (ZOFRAN ODT) 4 mg disintegrating tablet Take 1 tablet by mouth every 6 hours as needed for nausea/vomiting. (Patient not taking: Reported on 07/09/2023) vit 88-rcvr-fwirf-dha (PRENATE MINI, FERR ASP GLYCIN,) 18-1-350 mg cap Take 1 Dose by mouth once daily. (Patient not taking: Reported on 09/20/2023) No current facility-administered medications for this visit. Allergies As of Date: 10/25/2024 Allergen Noted Reaction ADHESIVE TAPE (ROSINS) 02/04/2014 Rash LATEX Rash Fully Assessed 10/25/2024 REVIEW OF SYSTEMS Abdomen: No abdominal pain, nausea, vomiting, diarrhea, or constipation. Bladder: No dysuria, gross hematuria, urinary frequency, urinary urgency, or incontinence. Breast: No breast lumps, nipple d/c, overlying skin changes, redness or skin retraction. Expanded ROS: N/A Allergies and current medication updated:Yes SENSITIVE EXAM: Sensitive exam not performed. EXAM: LMP 10/11/2024 GENERAL: pleasant, female in no apparent distress HEENT: Normocephalic and atraumatic NECK: Supple and full range of motion DERMATOLOGY: Normal and without lesions BREAST: deferred CHEST: Normal inspiratory effort ABDOMEN: Deferred PELVIC: deferred BIMANUAL: deferred NEURO: alert and oriented x3,exam grossly non-focal EXTREMITIES: normal ASSESSMENT AND PLAN: Assessment & Plan Encounter for test, result positive (HCC) Orders: HCG QUANTITATIVE; Standing History of ectopic Orders: HCG QUANTITATIVE; Standing - Urine HCG- POSITIVE - Gestational age by LMP of 10/01/24 is 3w - Bleeding / Pain precautions reviewed - Serial HCG levels due to hx of ectopic - Start vitamin- RX sent - RTO 5 weeks for NOB or sooner if needed Marcia Farrell APRN.CNM [facility] [id number] (AGENT OF COVID-19) RNA: Not detected INFLUENZA A RNA: Not detected INFLUENZA B RNA: Not detected RESPIRATORY SYNCYTIAL VIRUS (RSV) RNA: Not detectedPike Community HospitalComment on above:Performed By: #### [id number] ####[facility] LABCLIA [id number] [address] [id number] Instructions* Patient Instructions* Nilda Castellanos APRN.[facility] [employer] - 10/14/2024 9:06 AM EDT Nausea vomiting and diarrhea (primary encounter diagnosis) Generalized abdominal pain You have been diagnosed with an illness caused by a virus. Antibiotics do not cure viral infections. If given when not needed, antibiotics can be harmful. The treatments described below will help youfeel better while your body's own defenses are fighting the virus. General Instructions: Drink extra water and juice. Use a cool mist vaporizer or saline nasal spray to relieve congestion. For Sore throats, use ice chips or sore throat spray; lozenges for older children and adults. Use medicines according to the package instructions or as directed by your healthcare provider. Stop the medication when the symptoms get better. No follow-ups on file. Nausea and Vomiting Take frequent small sips of water if a whole glass is too much. Try 5 or 6 small meals instead of 3 bigger meals. Suck on peppermint candy, or chew a stick of peppermint gum. Eating gelatin dessert, dry toast, crackers, and cooked cereal are good choices. Try to stay away from strong food odors, which can make nausea worse. documented in this encounter[facility]04-10-[facility]25 NoteHNO ID: [id number] Author: NILDA CASTELLANOS APRN.CNP Service: ? Author Type: Nurse Practitioner Type: Progress Notes Filed: 10/14/2024 09:21 Note Text: [facility] Subjective Barbara Schwab is a 24 year old adult. Patient presents with: Diarrhea: Vomiting, stomach pain x 4 days 24 year old adult with PMH GERD, IBS, depression, and anxiety presents for illness Acute onset 4 days ago Lower abdominal pain [place] like punched in stomach + emesis x 6 +diarrhea , multiple times +fatigue +nasal congestion Denies fever or chills Denies accompanying URI sx Denies vaginal bleeding Denies vaginal discharge Denies sx Has used heating pad States symptoms are the same , denying that they have worsened or improved LMP-3/7 She states she needs a work note The history is provided by the patient. No english language learner teacher was used. Vomiting This is a new problem. The current episode started more than 2 days ago. Episode frequency: x 6 over the past 4 days. The problem has not changed since onset.The emesis has an appearance of bilious material. There has been no fever. Associated symptoms include abdominal pain and diarrhea. Pertinent negatives include no arthralgias, no chills, no cough, no fever, no headaches, no myalgias, no sweats and no URI. Risk factors include ill contacts. PAST MEDICAL HISTORY Diagnosis Date Anemia during in second trimester (HCC) 05/18/2019 Depression GERD (gastroesophageal reflux disease) H/O seasonal allergies Herpes simplex virus (HSV) infection IBS (irritable bowel syndrome) PAST SURGICAL HISTORY Procedure Laterality Date NONE SALPINGECTOMY Right 04/01/2024 laparoscopic, [facility] for ectopic ALLERGIES Adhesive Tape (Rosins) and Latex MEDICATIONS busPIRone (BUSPAR) 10 mg tablet Take 10 mg by mouth three times a day. escitalopram oxalate (LEXAPRO) 10 mg tablet Take 10 mg by mouth once daily. PNV Comb.Pb81-Momi,Carbonyl-FA 29 mg iron- 1 mg tab Take 1 tablet by mouth once daily. valACYclovir (VALTREX) 1 gram Take 1 tablet by mouth once daily. (Patient taking differently: Take 1,000 mg by mouth as needed (breakouts).) ondansetron orally disintegrating (ZOFRAN ODT) 4 mg disintegrating tablet Take 1 tablet by mouth every 6 hours as needed for nausea/vomiting. ondansetron orally disintegrating (ZOFRAN ODT) 4 mg disintegrating tablet Take 1 tablet by mouth every 6 hours as needed for nausea/vomiting. (Patient not taking: Reported on 10/14/2024) ondansetron orally disintegrating (ZOFRAN ODT) 4 mg disintegrating tablet Take 1 tablet by mouth every 6 hours as needed for nausea/vomiting. (Patient not taking: Reported on 09/20/2023) omeprazole (PRILOSEC) 20 mg capsule Take 20 mg by mouth once daily. (Patient not taking: Reported on 08/18/2024) ondansetron orally disintegrating (ZOFRAN ODT) 4 mg disintegrating tablet Take 1 tablet by mouth every 6 hours as needed for nausea/vomiting. (Patient not taking: Reported on 07/09/2023) vit 37-sxqc-nzxbf-dha (PRENATE MINI, FERR ASP GLYCIN,) 18-1-350 mg cap Take 1 Dose by mouth once daily. (Patient not taking: Reported on 09/20/2023) FAMILY HISTORY Problem Relation Age of Onset Hypertension Mother other (insomnia) Mother other (fibromyalgia) Mother other (IBS) Mother Heart Attack Father Depression Sister No Known Problems Brother Diabetes Maternal Grandmother Hypertension Maternal Grandmother other ([place]'s Disease) Maternal Grandmother Cancer Maternal Grandfather Lung Hypertension Maternal Grandfather Alcohol/Drug Paternal Grandmother Alcohol/Drug Paternal Grandfather other (acid reflux) Son Social History Tobacco Use Smoking status: Former Current packs/day: 0.00 Types: Cigarettes Start date: 07/05/2018 Quit date: 01/03/2019 Years since quittin.7 Smokeless tobacco: Former Types: Chew Quit date: 01/31/2019 Vaping Use Vaping status: current everyday user Substance Use Topics Alcohol use: Never Drug use: Not Currently Types: Marijuana Review of Systems Constitutional: Negative for chills and fever. Respiratory: Negative for apnea, cough, choking and chest tightness. Cardiovascular: Negative for chest pain, palpitations and leg swelling. Gastrointestinal: Positive for abdominal pain, diarrhea and vomiting. Musculoskeletal: Negative for arthralgias and myalgias. Skin: Negative for color change, pallor, rash and wound. Allergic/Immunologic: Negative for environmental allergies, food allergies and immunocompromised state. Neurological: Negative for headaches. Hematological: Negative for adenopathy. Does not bruise/bleed easily. Psychiatric/Behavioral: Negative for agitation and behavioral problems. Objective BP 124/87 Pulse 102 Temp 36.2 ?C (97.2 ?F) Resp 18 Wt 46 kg (101 lb 6.6 oz) LMP 10/11/2024 (Exact Date) SpO2 100% Physical Exam Vitals and nursing note reviewed. Constitu (more content not included)...[facility]04-10-2025 History of Present illness Narrative* iNlda Castellanos APRN.[facility] - 10/14/2024 9:01 AM EDT [facility] Subjective Barbara Schwab is a 24 year old adult. Patient presents with: Diarrhea: Vomiting, stomach pain x 4 days 24 year old adult with PMH GERD, IBS, depression, and anxiety presents for illness Acute onset 4 days ago Lower abdominal pain [place] like punched in stomach + emesis x 6 +diarrhea , multiple times +fatigue +nasal congestion Denies fever or chills Denies accompanying URI sx Denies vaginal bleeding Denies vaginal discharge Denies sx Has used heating pad States symptoms are the same , denying that they have worsened or improved LMP-09/10 She states she needs a work note The history is provided by the patient. No english language learner teacher was used. Vomiting This is a new problem. The current episode started more than 2 days ago. Episode frequency: x 6 over the past 4 days. The problem has not changed since onset.The emesis has an appearance of bilious material. There has been no fever. Associated symptoms include abdominal pain and diarrhea. Pertinentnegatives include no arthralgias, no chills, no cough, no fever, no headaches, no myalgias, no sweats and no URI. Risk factors include ill contacts. PAST MEDICAL HISTORY Diagnosis Date Anemia during in second trimester (HCC) 05/18/2019 Depression GERD (gastroesophageal reflux disease) H/O seasonal allergies Herpes simplex virus (HSV) infection IBS (irritable bowel syndrome) PAST SURGICAL HISTORY Procedure Laterality Date NONE SALPINGECTOMY Right 04/01/2024 laparoscopic, D&C for ectopic ALLERGIES Adhesive Tape (Rosins) and Latex MEDICATIONS busPIRone (BUSPAR) 10 mg tablet Take 10 mg by mouth three times a day. escitalopram oxalate (LEXAPRO) 10 mg tablet Take 10 mg by mouth once daily. PNV Comb.Jo41-Bpha,Carbonyl-FA 29 mg iron- 1 mg tab Take 1 tablet by mouth once daily. valACYclovir (VALTREX) 1 gram Take 1 tablet by mouth once daily. (Patient taking differently: Take 1,000 mg by mouth as needed (breakouts).) ondansetron orally disintegrating (ZOFRAN ODT) 4 mg disintegrating tablet Take 1 tablet by mouth every 6 hours as needed for nausea/vomiting. ondansetron orally disintegrating (ZOFRAN ODT) 4 mg disintegrating tablet Take 1 tablet by mouth every 6 hours as needed for nausea/vomiting. (Patient not taking: Reported on 10/14/2024) ondansetron orally disintegrating (ZOFRAN ODT) 4 mg disintegrating tablet Take 1 tablet by mouth every 6 hours as needed for nausea/vomiting. (Patient not taking: Reported on 09/20/2023) omeprazole (PRILOSEC) 20 mg capsule Take 20 mg by mouth once daily. (Patient not taking: Reported on 08/18/2024) ondansetron orally disintegrating (ZOFRAN ODT) 4 mg disintegrating tablet Take 1 tablet by mouth every 6 hours as needed for nausea/vomiting. (Patient not taking: Reported on 07/09/2023) vit 49-zsws-oooua-dha (PRENATE MINI, FERR ASP GLYCIN,) 18-1-350 mg cap Take 1 Dose by mouth once daily. (Patient not taking: Reported on 09/20/2023) FAMILY HISTORY Problem Relation Age of Onset Hypertension Mother other (insomnia) Mother other (fibromyalgia) Mother other (IBS) Mother Heart Attack Father Depression Sister No Known Problems Brother Diabetes Maternal Grandmother Hypertension Maternal Grandmother other (Russel's Disease) Maternal Grandmother Cancer Maternal Grandfather Lung Hypertension Maternal Grandfather Alcohol/Drug Paternal Grandmother Alcohol/Drug Paternal Grandfather other (acid reflux) Son Social History Tobacco Use Smoking status: Former Current packs/day: 0.00 Types: Cigarettes Start date: 07/05/2018 Quit date: 01/03/2019 Years since quittin.7 Smokeless tobacco: Former Types: Chew Quit date: 01/31/2019 Vaping Use Vaping status: current everyday user Substance Use Topics Alcohol use: Never Drug use: Not Currently Types: Marijuana Review of Systems Constitutional: Negative for chills and fever. Respiratory: Negative for apnea, cough, choking and chest tightness. Cardiovascular: Negative for chest pain, palpitations and leg swelling. Gastrointestinal: Positive for abdominal pain, diarrhea and vomiting. Musculoskeletal: Negative for arthralgias and myalgias. Skin: Negative for color change, pallor, rash and wound. Allergic/Immunologic: Negative for environmental allergies, food allergies and immunocompromised state. Neurological: Negative for headaches. Hematological: Negative for adenopathy. Does not bruise/bleed easily. Psychiatric/Behavioral: Negative for agitation and behavioral problems. Objective BP 124/87 Pulse 102 Temp 36.2 C (97.2 F) Resp 18 Wt 46 kg (101 lb 6.6 oz) LMP 10/11/2024 (Exact Date) SpO2 100% Physical Exam Vitals and nursing note reviewed. Constitutional: General: Ching is not in acute distress. Appearance: Normal appearance. Ching is not ill-appearing, toxic-appearing or diaphoretic. HENT: Head: Normocephalic and atraumatic. Right Ear: External ear normal. Left Ear: External ear normal. Nose: Nose normal. No congestion or rhinorrhea. Mouth/Throat: Mouth: Mucous membranes are moist. Pharynx: Oropharynx is clear. No oropharyngeal exudate or posterior oropharyngeal erythema. Eyes: General: Right eye: No discharge. Left eye: No discharge. Extraocular Movements: Extraocular movements intact. Conjunctiva/sclera: Conjunctivae normal. Pupils: Pupils are equal, round, and reactive to light. Neck: Comments: Bilateral neck with large ecchymotic areas Cardiovascular: Rate and Rhythm: Normal rate and regular rhythm. Pulses: Normal pulses. Heart sounds: Normal heart sounds. No murmur heard. No friction rub. No gallop. Pulmonary: Effort: Pulmonary effort is normal. No respiratory distress. Breath sounds: Normal breath sounds. No stridor. No wheezing, rhonchi or rales. Chest: Chest wall: No tenderness. Abdominal: General: Abdomen is flat. There is no distension. Palpations: Abdomen is soft. There is no mass. Tenderness: There is abdominal tenderness (diffuse and generalized abdominal tenderness). There is no guarding or rebound. Hernia: No hernia is present. Musculoskeletal: General: No swelling, tenderness, deformity or signs of injury. Normal range of motion. Cervical back: Normal range of motion and neck supple. No rigidity or tenderness. Right lower leg: No edema. Left lower leg: No edema. Lymphadenopathy: Cervical: No cervical adenopathy. Skin: General: Skin is warm and dry. Capillary Refill: Capillary refill takes less than 2 seconds. Coloration: Skin is not jaundiced or pale. Findings: No bruising, lesion or rash. Neurological: General: No focal deficit present. Mental Status: Ching is alert and oriented to person, place, and time. Cranial Nerves: No cranial nerve deficit. Sensory: No sensory deficit. Motor: No weakness. Coordination: Coordination normal. Gait: Gait normal. Deep Tendon Reflexes: Reflexes normal. Psychiatric: Mood and Affect: Mood normal. Behavior: Behavior normal. Thought Content: Thought content normal. {ASSESSMENT/PLAN: 1. Nausea vomiting and diarrhea - ICD9: 787.91, 787.01, ICD10: R11.2, R19.7 (primary diagnosis) X 4 days X 6 bouts emesis over time Multiple bouts of diarrhea a day Hemodynamically stable No red flags 2. Generalized abdominal pain - ICD9: 789.07, ICD10: R10.84 Etiology unclear Differential Diagnosis includes GERD, Gastritis, IBS, Gall bladder colic/cholelithiasis, Diverticulitis, Kidney stones/colic, Appendicitis, Bladder distention, Ovarian cyst, and Cystitis - Labs of CBC with Diff, CMP, and Lipase - Follow up in 0 days or sooner if worsening of symptoms Nilda Castellanos APRN.CNP History and Record Review External record(s) reviewed: prior inpatient record and prior outpatient record. Differential Diagnoses - viral illness is more likely for the following reason(s): suggested by H&P - appendicitits, diverticulitis is less likely for the following reason(s): x 4 days. Not worsening. Declines testing ., H&P not suggestive Additional Tests or Interventions The following testing was considered but ultimately not selected after discussion with patient/family: cbc, cmp, lipase, but patient declined Disposition The patient was discharged. Procedures documented in this encounterSelect [facility]02-18-2025 [id number] (AGENT OF COVID-19) RNA: Not detected INFLUENZA A RNA: Not detected INFLUENZA B RNA: Not detected RESPIRATORY SYNCYTIAL VIRUS (RSV) RNA: Not detectedPike Community HospitalComment on above:Performed By: #### [id number]- [id number] ####[facility] LABCLIA [id number] [address] [id number] NoteHNO ID: [id number] Author: NILDA CASTELLANOS APRN.CNP Service: ? Author Type: Nurse Practitioner Type: Progress Notes Filed: 08/24/2024 11:39 Note Text: This note was created using NoteWriter. Subjective Barbara Schwab is a 24 year old adult. 24 year old female with no significant PMH presents for illness. Acute onset 5 days ago +nausea +sore throat +diarrhea +body aches +headache +chills Denies CP Denies dyspnea Denies emesis Denies hemoptysis Used Tylenol +vapes, tobacco The history is provided by the patient. No english language learner teacher was used. SHARLENE Flower complains of cough. There is no chest tightness, difficulty breathing, frequent throat clearing, hemoptysis, hoarse voice, shortness of breath, sputum production or wheezing. This is a new problem. The current episode started in the past 7 days. The problem occurs constantly. The problem has been gradually worsening. Associated symptoms include a fever, headaches, malaise/fatigue, myalgias, nasal congestion, postnasal drip, rhinorrhea, sneezing and a sore throat. Pertinent negatives include no appetite change, chest pain, dyspnea on exertion, ear congestion, ear pain, heartburn, orthopnea, PND, sweats, trouble swallowing or weight loss. Ching's symptoms are aggravated by nothing. Ching's symptoms are alleviated by nothing. Risk factors for lung disease include smoking/tobacco exposure. There is no history of asthma, bronchiectasis, bronchitis, COPD, emphysema or pneumonia. PAST MEDICAL HISTORY Diagnosis Date Anemia during in second trimester 05/18/2019 Depression GERD (gastroesophageal reflux disease) H/O seasonal allergies Herpes simplex virus (HSV) infection IBS (irritable bowel syndrome) PAST SURGICAL HISTORY Procedure Laterality Date NONE SALPINGECTOMY Right 04/01/2024 laparoscopic, [facility] for ectopic ALLERGIES Adhesive Tape (Rosins) and Latex MEDICATIONS busPIRone (BUSPAR) 10 mg tablet Take 10 mg by mouth three times a day. valACYclovir (VALTREX) 1 gram Take 1 tablet by mouth once daily. ondansetron orally disintegrating (ZOFRAN ODT) 4 mg disintegrating tablet Take 1 tablet by mouth every 6 hours as needed for nausea/vomiting. escitalopram oxalate (LEXAPRO) 10 mg tablet Take 10 mg by mouth once daily. PNV Comb.Zv78-Jcjh,Carbonyl-FA 29 mg iron- 1 mg tab Take 1 tablet by mouth once daily. (Patient not taking: Reported on 08/18/2024) ondansetron orally disintegrating (ZOFRAN ODT) 4 mg disintegrating tablet Take 1 tablet by mouth every 6 hours as needed for nausea/vomiting. (Patient not taking: Reported on 09/20/2023) omeprazole (PRILOSEC) 20 mg capsule Take 20 mg by mouth once daily. (Patient not taking: Reported on 08/18/2024) ondansetron orally disintegrating (ZOFRAN ODT) 4 mg disintegrating tablet Take 1 tablet by mouth every 6 hours as needed for nausea/vomiting. (Patient not taking: Reported on 07/09/2023) vit 13-xxmk-bsvbi-dha (PRENATE MINI, FERR ASP GLYCIN,) 18-1-350 mg cap Take 1 Dose by mouth once daily. (Patient not taking: Reported on 09/20/2023) FAMILY HISTORY Problem Relation Age of Onset Hypertension Mother other (insomnia) Mother other (fibromyalgia) Mother other (IBS) Mother Heart Attack Father Depression Sister No Known Problems Brother Diabetes Maternal Grandmother Hypertension Maternal Grandmother other ([place] Disease) Maternal Grandmother Cancer Maternal Grandfather Lung Hypertension Maternal Grandfather Alcohol/Drug Paternal Grandmother Alcohol/Drug Paternal Grandfather other (acid reflux) Son Social History Tobacco Use Smoking status: Former Current packs/day: 0.00 Types: Cigarettes Start date: 07/05/2018 Quit date: 01/03/2019 Years since quittin.6 Smokeless tobacco: Former Types: Chew Quit date: 01/31/2019 Vaping Use Vaping status: current everyday user Substance Use Topics Alcohol use: Never Drug use: Not Currently Types: Marijuana Review of Systems Constitutional: Positive for fever and malaise/fatigue. Negative for appetite change and weight loss. HENT: Positive for congestion, postnasal drip, rhinorrhea, sneezing and sore throat. Negative for ear pain, hoarse voice and trouble swallowing. Eyes: Negative for pain, discharge, redness and itching. Respiratory: Positive for cough. Negative for apnea, hemoptysis, sputum production, shortness of breath and wheezing. Cardiovascular: Negative for chest pain, dyspnea on exertion and PND. Gastrointestinal: Positive for diarrhea and nausea. Negative for heartburn and vomiting. Musculoskeletal: Positive for myalgias. Negative for arthralgias and back pain. Skin: Negative for color change, pallor and rash. Allergic/Immunologic: Negative for environmental allergies, food allergies and immunocompromised state. Neurological: Positive for headaches. Negative for dizziness and facial asymmetry. Hematological: Positive f (more content not included)...[facility]02-18-2025 History of Present illness Narrative* Nilda Castellanos APRN.WELDING MACHINE OPERATOR FRICTION - 08/24/2024 11:05 AM EST This note was created using NoteWriter. Subjective Barbara Schwab is a 24 year old adult. 24 year old female with no significant PMH presents for illness. Acute onset 5 days ago +nausea +sore throat +diarrhea +body aches +headache +chills Denies CP Denies dyspnea Denies emesis Denies hemoptysis Used Tylenol +vapes, tobacco The history is provided by the patient. No english language learner teacher was used. SHARLENE Flower complains of cough. There is no chest tightness, difficulty breathing, frequent throat clearing, hemoptysis, hoarse voice, shortness of breath, sputum production or wheezing. This is a new problem. The current episode started in the past 7 days. The problem occurs constantly. The problem hasbeen gradually worsening. Associated symptoms include a fever, headaches, malaise/fatigue, myalgias, nasal congestion, postnasal drip, rhinorrhea, sneezing and a sore throat. Pertinent negatives include no appetite change, chest pain, dyspnea on exertion, ear congestion, ear pain, heartburn, orthopnea, PND, sweats, trouble swallowing or weight loss. Ching's symptoms are aggravated by nothing. Ching's symptoms are alleviated by nothing. Risk factors for lung disease include smoking/tobacco exposure. There is no history of asthma, bronchiectasis, bronchitis, COPD, emphysema or pneumonia. PAST MEDICAL HISTORY Diagnosis Date Anemia during in second trimester 05/18/2019 Depression GERD (gastroesophageal reflux disease) H/O seasonal allergies Herpes simplex virus (HSV) infection IBS (irritable bowel syndrome) PAST SURGICAL HISTORY Procedure Laterality Date NONE SALPINGECTOMY Right 04/01/2024 laparoscopic, D&C for ectopic ALLERGIES Adhesive Tape (Rosins) and Latex MEDICATIONS busPIRone (BUSPAR) 10 mg tablet Take 10 mg by mouth three times a day. valACYclovir (VALTREX) 1 gram Take 1 tablet by mouth once daily. ondansetron orally disintegrating (ZOFRAN ODT) 4 mg disintegrating tablet Take 1 tablet by mouth every 6 hours as needed for nausea/vomiting. escitalopram oxalate (LEXAPRO) 10 mg tablet Take 10 mg by mouth once daily. PNV Comb.Rg86-Mlhp,Carbonyl-FA 29 mg iron- 1 mg tab Take 1 tablet by mouth once daily. (Patient nottaking: Reported on 08/18/2024) ondansetron orally disintegrating (ZOFRAN ODT) 4 mg disintegrating tablet Take 1 tablet by mouth every 6 hours as needed for nausea/vomiting. (Patient not taking: Reported on 09/20/2023) omeprazole (PRILOSEC) 20 mg capsule Take 20 mg by mouth once daily. (Patient not taking: Reported on 08/18/2024) ondansetron orally disintegrating (ZOFRAN ODT) 4 mg disintegrating tablet Take 1 tablet by mouth every 6 hours as needed for nausea/vomiting. (Patient not taking: Reported on 07/09/2023) vit 19-xojl-hwgpk-dha (PRENATE MINI, FERR ASP GLYCIN,) 18-1-350 mg cap Take 1 Dose by mouth once daily. (Patient not taking: Reported on 09/20/2023) FAMILY HISTORY Problem Relation Age of Onset Hypertension Mother other (insomnia) Mother other (fibromyalgia) Mother other (IBS) Mother Heart Attack Father Depression Sister No Known Problems Brother Diabetes Maternal Grandmother Hypertension Maternal Grandmother other ([place] Disease) Maternal Grandmother Cancer Maternal Grandfather Lung Hypertension Maternal Grandfather Alcohol/Drug Paternal Grandmother Alcohol/Drug Paternal Grandfather other (acid reflux) Son Social History Tobacco Use Smoking status: Former Current packs/day: 0.00 Types: Cigarettes Start date: 07/05/2018 Quit date: 01/03/2019 Years since quittin.6 Smokeless tobacco: Former Types: Chew Quit date: 01/31/2019 Vaping Use Vaping status: current everyday user Substance Use Topics Alcohol use: Never Drug use: Not Currently Types: Marijuana Review of Systems Constitutional: Positive for fever and malaise/fatigue. Negative for appetite change and weight loss. HENT: Positive for congestion, postnasal drip, rhinorrhea, sneezing and sore throat. Negative for ear pain, hoarse voice and trouble swallowing. Eyes: Negative for pain, discharge, redness and itching. Respiratory: Positive for cough. Negative for apnea, hemoptysis, sputum production, shortness of breath and wheezing. Cardiovascular: Negative for chest pain, dyspnea on exertion and PND. Gastrointestinal: Positive for diarrhea and nausea. Negative for heartburn and vomiting. Musculoskeletal: Positive for myalgias. Negative for arthralgias and back pain. Skin: Negative for color change, pallor and rash. Allergic/Immunologic: Negative for environmental allergies, food allergies and immunocompromised state. Neurological: Positive for headaches. Negative for dizziness and facial asymmetry. Hematological: Positive for adenopathy. Does not bruise/bleed easily. Psychiatric/Behavioral: Negative for agitation and behavioral problems. Objective BP 112/70 Pulse 118 Temp 36.3 C (97.3 F) Resp 20 Wt 44.8 kg (98 lb 12.3 oz) LMP 08/13/2024 (Exact Date) SpO2 98% Physical Exam Vitals and nursing note reviewed. Constitutional: General: Ching is not in acute distress. Appearance: Normal appearance. Ching is not ill-appearing, toxic-appearing or diaphoretic. HENT: Head: Normocephalic and atraumatic. Right Ear: External ear normal. Left Ear: External ear normal. Nose: Congestion present. No rhinorrhea. Mouth/Throat: Mouth: Mucous membranes are moist. Pharynx: Oropharynx is clear. Posterior oropharyngeal erythema present. No oropharyngeal exudate. Eyes: General: Right eye: No discharge. Left eye: No discharge. Extraocular Movements: Extraocular movements intact. Conjunctiva/sclera: Conjunctivae normal. Pupils: Pupils are equal, round, and reactive to light. Cardiovascular: Rate and Rhythm: Normal rate and regular rhythm. Pulses: Normal pulses. Heart sounds: Normal heart sounds. No murmur heard. No friction rub. No gallop. Pulmonary: Effort: Pulmonary effort is normal. No respiratory distress. Breath sounds: Normal breath sounds. No stridor. No wheezing, rhonchi or rales. Chest: Chest wall: No tenderness. Abdominal: General: Abdomen is flat. There is no distension. Palpations: Abdomen is soft. There is no mass. Tenderness: There is abdominal tenderness (generalized abdominal tenderness). There is no guarding or rebound. Hernia: No hernia is present. Musculoskeletal: General: No swelling, tenderness, deformity or signs of injury. Normal range of motion. Cervical back: Normal range of motion. No rigidity or tenderness. Right lower leg: No edema. Left lower leg: No edema. Lymphadenopathy: Cervical: Cervical adenopathy present. Skin: General: Skin is warm and dry. Capillary Refill: Capillary refill takes less than 2 seconds. Coloration: Skin is not jaundiced or pale. Findings: No bruising, lesion or rash. Neurological: General: No focal deficit present. Mental Status: Ching is alert and oriented to person, place, and time. Cranial Nerves: No cranial nerve deficit. Sensory: No sensory deficit. Motor: No weakness. Coordination: Coordination normal. Gait: Gait normal. Deep Tendon Reflexes: Reflexes normal. Psychiatric: Mood and Affect: Mood normal. Behavior: Behavior normal. Thought Content: Thought content normal. Assessment and Plan ASSESSMENT/PLAN: 1. URI, acute - ICD9: 465.9, ICD10: J06.9 (primary diagnosis) X 5 days - Group A strep molecular testing negative - Symptomatic treatment with prn analgesia - Supportive care with fluids and rest - The patient may also use OTC cough and cold meds as needed and warm salt water gargles, throat lozenges and/or OTC throat spray as needed. - Follow up in 3-5 days if symptoms persist or sooner if worsening of symptoms - STREP A MOLECULAR (POC) - COVID & INFLUENZA A/B & RSV PCR, ROUTINE 2. Nausea - ICD9: 787.02, ICD10: R11.0 BRAT diet Advance as tolerated RX Zofran 3. Viral illness - ICD9: 079.99, ICD10: B34.9 - Discussed viral etiology and rationale for treatment. - Symptomatic treatment with prn analgesia - Supportive care with fluids and rest Nilda Castellanos APRN.WELDING MACHINE OPERATOR FRICTION [facility] History of Present illness Narrative* Marcia Farrell APRN.CNM - 08/18/2024 3:30 PM EST Barbara Schwab is a 24 year old female who presents for problem visit of missed menses with positive test. HPI: Stated having regular cycles every 28-30 days. Had period in June and then did not have cycle in July. She took two HPT and reports one was negative and one was positive. She began spotting on 08/12/24 and continued to have what felt like a period for 3-4 days. She reports at one point she passed "quite a large clot" that was concerning. Here today for test. 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 History Comments: Sexual Activity: Yes; Male Contraception: No contraception data on record PAST MEDICAL HISTORY Diagnosis Date Anemia during in second trimester 05/18/2019 Depression GERD (gastroesophageal reflux disease) H/O seasonal allergies Herpes simplex virus (HSV) infection IBS (irritable bowel syndrome) PAST SURGICAL HISTORY Procedure Laterality Date NONE SALPINGECTOMY Right 04/01/2024 laparoscopic, D&C for ectopic FAMILY HISTORY Problem Relation Age of Onset Hypertension Mother other (insomnia) Mother other (fibromyalgia) Mother other (IBS) Mother Heart Attack Father Depression Sister No Known Problems Brother Diabetes Maternal Grandmother Hypertension Maternal Grandmother other ([place]'s Disease) Maternal Grandmother Cancer Maternal Grandfather Lung Hypertension Maternal Grandfather Alcohol/Drug Paternal Grandmother Alcohol/Drug Paternal Grandfather other (acid reflux) Son Social History Tobacco Use Smoking status: Former Current packs/day: 0.00 Types: Cigarettes Start date: 07/05/2018 Quit date: 01/03/2019 Years since quittin.6 Smokeless tobacco: Former Types: Chew Quit date: 01/31/2019 Vaping Use Vaping status: current everyday user Substance Use Topics Alcohol use: Never Drug use: Not Currently Types: Marijuana Current Outpatient Medications Medication Sig busPIRone (BUSPAR) 10 mg tablet Take 10 mg by mouth three times a day. escitalopram oxalate (LEXAPRO) 10 mg tablet Take 10 mg by mouth once daily. valACYclovir (VALTREX) 1 gram Take 1 tablet by mouth once daily. PNV Comb.Xl94-Casa,Carbonyl-FA 29 mg iron- 1 mg tab Take 1 tablet by mouth once daily. (Patient nottaking: Reported on 08/18/2024) ondansetron orally disintegrating (ZOFRAN ODT) 4 mg disintegrating tablet Take 1 tablet by mouth every 6 hours as needed for nausea/vomiting. (Patient not taking: Reported on 09/20/2023) omeprazole (PRILOSEC) 20 mg capsule Take 20 mg by mouth once daily. (Patient not taking: Reported on 08/18/2024) ondansetron orally disintegrating (ZOFRAN ODT) 4 mg disintegrating tablet Take 1 tablet by mouth every 6 hours as needed for nausea/vomiting. (Patient not taking: Reported on 07/09/2023) vit 36-ixzl-xhcsj-dha (PRENATE MINI, FERR ASP GLYCIN,) 18-1-350 mg cap Take 1 Dose by mouth once daily. (Patient not taking: Reported on 09/20/2023) No current facility-administered medications for this visit. Allergies As of Date: 08/18/2024 Allergen Noted Reaction ADHESIVE TAPE (ROSINS) 02/04/2014 Rash LATEX Rash Fully Assessed 08/18/2024 REVIEW OF SYSTEMS Abdomen: No bloating, early satiety, indigestion, or increased flatulence. No abdominal pain, nausea, vomiting, diarrhea, or constipation. Bladder: No dysuria, gross hematuria, urinary frequency, urinary urgency, or incontinence. Breast: No breast lumps, nipple d/c, overlying skin changes, redness or skin retraction. Expanded ROS: N/A Allergies and current medication updated:Yes SENSITIVE EXAM: Sensitive exam not performed. EXAM: BP 98/62 Wt 99 lb (44.9kg) LMP 08/13/2024 GENERAL: pleasant, female in no apparent distress HEENT: Normocephalic and atraumatic NECK: Supple and full range of motion DERMATOLOGY: Normal BREAST: deferred CHEST: Normal inspiratory effort ABDOMEN: Deferred PELVIC: deferred BIMANUAL: deferred NEURO: alert and oriented x3,exam grossly non-focal EXTREMITIES: normal ASSESSMENT AND PLAN: Assessment & Plan Missed menses Orders: UA DIP,URINE HCG (POC) - Urine HCG negative - Discussed results with patient - Recommended starting a vitamin daily - Continue to track cycles - RTO as needed/ yearly exams Marcia Farrell APRN.CNM documented in this encounter[facility] NoteHNO ID: [id number] Author: MARCIA FARRELL APRN.CNM Service: ? Author Type: Dural Mechanic Type: Progress Notes Filed: 08/19/2024 07:37 Note Text: Barbara Schwab is a 24 year old female who presents for problem visit of missed menses with positive test. HPI: Stated having regular cycles every 28-30 days. Had period in June and then did not have cycle in July. She took two HPT and reports one was negative and one was positive. She began spotting on 08/12/24 and continued to have what felt like a period for 3-4 days. She reports at one point she passed "quite a large clot" that was concerning. Here today for test. 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 History Comments: Sexual Activity: Yes; Male Contraception: No contraception data on record PAST MEDICAL HISTORY Diagnosis Date Anemia during in second trimester 05/18/2019 Depression GERD (gastroesophageal reflux disease) H/O seasonal allergies Herpes simplex virus (HSV) infection IBS (irritable bowel syndrome) PAST SURGICAL HISTORY Procedure Laterality Date NONE SALPINGECTOMY Right 04/01/2024 laparoscopic, DANDC for ectopic FAMILY HISTORY Problem Relation Age of Onset Hypertension Mother other (insomnia) Mother other (fibromyalgia) Mother other (IBS) Mother Heart Attack Father Depression Sister No Known Problems Brother Diabetes Maternal Grandmother Hypertension Maternal Grandmother other ([place]'s Disease) Maternal Grandmother Cancer Maternal Grandfather Lung Hypertension Maternal Grandfather Alcohol/Drug Paternal Grandmother Alcohol/Drug Paternal Grandfather other (acid reflux) Son Social History Tobacco Use Smoking status: Former Current packs/day: 0.00 Types: Cigarettes Start date: 07/05/2018 Quit date: 01/03/2019 Years since quittin.6 Smokeless tobacco: Former Types: Chew Quit date: 01/31/2019 Vaping Use Vaping status: current everyday user Substance Use Topics Alcohol use: Never Drug use: Not Currently Types: Marijuana Current Outpatient Medications Medication Sig busPIRone (BUSPAR) 10 mg tablet Take 10 mg by mouth three times a day. escitalopram oxalate (LEXAPRO) 10 mg tablet Take 10 mg by mouth once daily. valACYclovir (VALTREX) 1 gram Take 1 tablet by mouth once daily. PNV Comb.Bj96-Mfzq,Carbonyl-FA 29 mg iron- 1 mg tab Take 1 tablet by mouth once daily. (Patient not taking: Reported on 08/18/2024) ondansetron orally disintegrating (ZOFRAN ODT) 4 mg disintegrating tablet Take 1 tablet by mouth every 6 hours as needed for nausea/vomiting. (Patient not taking: Reported on 09/20/2023) omeprazole (PRILOSEC) 20 mg capsule Take 20 mg by mouth once daily. (Patient not taking: Reported on 08/18/2024) ondansetron orally disintegrating (ZOFRAN ODT) 4 mg disintegrating tablet Take 1 tablet by mouth every 6 hours as needed for nausea/vomiting. (Patient not taking: Reported on 07/09/2023) vit 65-khoq-wlcnh-dha (PRENATE MINI, FERR ASP GLYCIN,) 18-1-350 mg cap Take 1 Dose by mouth once daily. (Patient not taking: Reported on 09/20/2023) No current facility-administered medications for this visit. Allergies As of Date: 08/18/2024 Allergen Noted Reaction ADHESIVE TAPE (ROSINS) 02/04/2014 Rash LATEX Rash Fully Assessed 08/18/2024 REVIEW OF SYSTEMS Abdomen: No bloating, early satiety, indigestion, or increased flatulence. No abdominal pain, nausea, vomiting, diarrhea, or constipation. Bladder: No dysuria, gross hematuria, urinary frequency, urinary urgency, or incontinence. Breast: No breast lumps, nipple d/c, overlying skin changes, redness or skin retraction. Expanded ROS: N/A Allergies and current medication updated:Yes SENSITIVE EXAM: Sensitive exam not performed. EXAM: BP 98/62 Wt 99 lb (44.9kg) LMP 08/13/2024 GENERAL: pleasant, female in no apparent distress HEENT: Normocephalic and atraumatic NECK: Supple and full range of motion DERMATOLOGY: Normal BREAST: deferred CHEST: Normal inspiratory effort ABDOMEN: Deferred PELVIC: deferred BIMANUAL: deferred NEURO: alert and oriented x3,exam grossly non-focal EXTREMITIES: normal ASSESSMENT AND PLAN: Assessment AND Plan Missed menses Orders: UA DIP,URINE HCG (POC) - Urine HCG negative - Discussed results with patient - Recommended starting a vitamin daily - Continue to track cycles - RTO as needed/ yearly exams Marcia Farrell APRN.[facility]09-27-2024 Telephone encounter Note* Telephone Encounter - Elena Rivas RN - 04/02/2024 9:46 AM EDT cancelled [facility]09-27-2024 Miscellaneous Notes* Telephone Encounter - Elena Rivas RN - 04/02/2024 9:46 AM EDT cancelled documented in this encounterSelect [facility]09-26-[facility]24 History of Present illness Narrative* Elena Robertson MD - 04/01/2024 9:29 AM EDT Director Of Graduate Admissions offered: Patient declines. Barbara Schwab is a 23 year old female who presents for problem visit bleeding and for 2 days. HPI: HCG not rising correctly. Started having bleeding and pain yesterday. Nothing in the uterus onbedside US. Fluid in the pelvis. Going to ED for Formal US and possible treatment. 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 History Comments: Sexual Activity: Yes; Male Contraception: No contraception data on record PAST MEDICAL HISTORY Diagnosis Date Anemia during in second trimester 05/18/2019 Depression GERD (gastroesophageal reflux disease) H/O seasonal allergies Herpes simplex virus (HSV) infection IBS (irritable bowel syndrome) PAST SURGICAL HISTORY Procedure Laterality Date NONE FAMILY HISTORY Problem Relation Age of Onset Hypertension Mother other (insomnia) Mother other (fibromyalgia) Mother other (IBS) Mother Heart Attack Father Depression Sister No Known Problems Brother Diabetes Maternal Grandmother Hypertension Maternal Grandmother other ([place] Disease) Maternal Grandmother Cancer Maternal Grandfather Lung Hypertension Maternal Grandfather Alcohol/Drug Paternal Grandmother Alcohol/Drug Paternal Grandfather other (acid reflux) Son Social History Tobacco Use Smoking status: Former Current packs/day: 0.00 Types: Cigarettes Start date: 07/05/2018 Quit date: 01/03/2019 Years since quittin.2 Smokeless tobacco: Former Types: Chew Quit date: 01/31/2019 Vaping Use Vaping status: current everyday user Substance Use Topics Alcohol use: Never Drug use: Not Currently Types: Marijuana Current Outpatient Medications Medication Sig metroNIDAZOLE (FLAGYL) 500 mg tablet Take 1 tablet by mouth two times a day for 7 days. PNV Comb.Yf17-Qion,Carbonyl-FA 29 mg iron- 1 mg tab Take 1 tablet by mouth once daily. omeprazole (PRILOSEC) 20 mg capsule Take 20 mg by mouth once daily. valACYclovir (VALTREX) 1 gram Take 1 tablet by mouth once daily. ondansetron orally disintegrating (ZOFRAN ODT) 4 mg disintegrating tablet Take 1 tablet by mouth every 6 hours as needed for nausea/vomiting. (Patient not taking: Reported on 09/20/2023) ondansetron orally disintegrating (ZOFRAN ODT) 4 mg disintegrating tablet Take 1 tablet by mouth every 6 hours as needed for nausea/vomiting. (Patient not taking: Reported on 07/09/2023) vit 44-bonj-ubqdv-dha (PRENATE MINI, FERR ASP GLYCIN,) 18-1-350 mg cap Take 1 Dose by mouth once daily. (Patient not taking: Reported on 09/20/2023) No current facility-administered medications for this visit. Allergies As of Date: 04/01/2024 Allergen Noted Reaction ADHESIVE TAPE (ROSINS) 02/04/2014 Rash LATEX Rash Fully Assessed 04/01/2024 REVIEW OF SYSTEMS Abdomen: No bloating, early satiety, indigestion, or increased flatulence. Right lower quad pain Bladder: No dysuria, gross hematuria, urinary frequency, urinary urgency, or incontinence. Breast: No breast lumps, nipple d/c, overlying skin changes, redness or skin retraction. Expanded ROS: N/A Allergies and current medication updated:Yes SENSITIVE EXAM: The sensitive examination was discussed with the Patient or Patient's Authorized Clerical Clerk. As applicable, any other physician, advance practice provider, medical student, or other health professional student that will be observing or involved in the sensitive examination for educational or training purposes was discussed with the Patient or Authorized Clerical Clerk. The Patient or Authorized Clerical Clerk has agreed to proceed with the sensitive examination. (Sensitive examination includes inspection and/or palpation of the breasts, pelvis, prostate and anorectal regions). EXAM: BP 100/60 Wt 96 lb 9.6 oz (43.8kg) LMP 02/15/2024 GENERAL: pleasant, female in no apparent distress HEENT: Normocephalic, atraumatic, mucus membranes moist, and no lesions NECK: Supple, full range of motion, no adenopathy, and thyroid normal DERMATOLOGY: Normal, without lesions, non-icteric, and non-hirsute BREAST: deferred CHEST: Normal inspiratory effort ABDOMEN: soft, no masses, and Moderate tenderness in RLQ PELVIC: external genitalia normal, no vulvar lesions BIMANUAL: deferred NEURO: alert and oriented x3,exam grossly non-focal EXTREMITIES: normal ASSESSMENT AND PLAN: Encounter Diagnosis ICD-10-CM 1. Ruptured right tubal ectopic causing hemoperitoneum O00.101 K66.1 Going to ED now Elena Robertson MD documented in this encounter[facility] History of Present illness Narrative* Marcia Farrell APRN.CN - 03/26/2024 1:39 PM EDT Patient declined facetor. Barbara Schwab is a 23 year old female who presents for problem visit of vaginal spotting, +hpt HPI: LMP 02/15/24. 5w1d gestational age Reports cycles 28-30 days lasting 5- 6 days. Missed period this month and took HPT which was positive. was desired. Started spotting off and on for the past month. Cramping on and off but nothing "severe". Recent intercourse yesterday. 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 No abdominal pain, nausea, vomiting, diarrhea, or constipation. Bladder: No dysuria, gross hematuria, urinary frequency, urinary urgency, or incontinence. Breast: No breast lumps, nipple d/c, overlying skin changes, redness or skin retraction. Expanded ROS: N/A Allergies and current medication updated:Yes SENSITIVE EXAM: The sensitive examination was discussed with the Patient or Patient's Authorized Clerical Clerk. As applicable, any other physician, advance practice provider, medical student, or other health professional student that will be observing or involved in the sensitive examination for educational or training purposes was discussed with the Patient or Authorized Clerical Clerk. The Patient or Authorized Clerical Clerk has agreed to proceed with the sensitive examination. (Sensitive examination includes inspection and/or palpation of the breasts, pelvis, prostate and anorectal regions). EXAM: BP 98/56 Wt 98 lb 9.6 oz (44.7kg) LMP 02/15/2024 GENERAL: pleasant, female in no apparent distress HEENT: Normocephalic and atraumatic NECK: Supple and full range of motion DERMATOLOGY: Normal and without lesions BREAST: deferred CHEST: Normal inspiratory effort ABDOMEN: soft, non-tender, and no masses PELVIC: external genitalia normal, normal Bartholin's glands, urethra, [place]'s glands, no vulvar lesions, no cervical lesions, good vaginal support, moderate small amount of dark red blood noted in vaginal vault and coming from cervical os. BIMANUAL: deferred NEURO: alert and oriented x3,exam grossly non-focal EXTREMITIES: normal ASSESSMENT/PLAN: 1. Vaginal spotting - ICD9: 623.8, ICD10: N93.9 (primary diagnosis) 2. Threatened miscarriage in early - ICD9: 640.03, ICD10: O20.0 3. Encounter for test, result positive - ICD9: V72.42, ICD10: Z32.01 4. Bleeding in early - ICD9: 640.90, ICD10: O20.9 5. History of delivery - ICD9: V13.21, ICD10: Z87.51 - GONORRHEA/CHLAMYDIA NAAT - BACTERIAL VAGINOSIS NAAT - COMPLETE BLOOD COUNT - HCG QUANTITATIVE - TYPE + SCREEN - Discussed possibility of miscarriage. Bleeding precautions reviewed and when to call office - Serial HCG levels - RTO 2 weeks for NOB with POC US for viability - Pelvic rest recommended - Support provided Marcia Farrell APRN.CNM documented in this encounter[facility] History of Present illness Narrative* Kenrick Rico DO - 03/19/2024 2:24 PM EDT UNIVERSAL PROTOCOL / SAFETY CHECKLIST Procedure to be Performed: EMG Sign In: A Moment of CARE was completed. Personnel directly involved with the procedure wore the appropriate PPE (Personal Protective Equipment). Patient/Surrogate Stated/Verified: PATIENT VERIFIED(optional for EMERGENT procedures): Patient name, Date of , Relevant allergies, and The intended procedure Time Out Communication: Intended patient and procedure match the source documents. Correct side/site marked and visible. Sign Out: SIGN OUT (optional for EMERGENT procedures): Post-procedure follow-up management communicated and Plan of Care Visit completed when applicable. Taylor Chung EMG Tech Kenrick Rico DO documented in this encounterSelect [facility]09-05-2024 History of Present illness Narrative* Gisela Cedeño MA - 03/11/2024 2:55 PM EDT PT ASSESSMENT - CASTING ROOM Barbara presents for Application of brace. Applied Dorothea and Pineda Modabber wrist brace to Bilateral wrist. Patient tolerated well. Patient has been instructed in Care and proper application of brace.. Patient verbalized understanding. Gisela Cedeño MA * Sanjana Pugh DO - 03/11/2024 2:36 PM EDT Images from the original note were not included. Reason for Visit/Chief Complaint Barbara Schwab is a 23 year old adult who presents today for a new evaluation of following complaint: Patient presents with: Left Index Finger - New, Numbness Right Index Finger - New, Numbness Left Middle Finger - New, Numbness Right Middle Finger - New, Numbness History of Present Illness: PAIN EVALUATION 03/11/2024 1437 Pain Level: 2 2-8/10 Pain Location: Finger Description: Radiating;Stabbing Duration Amount of Time: 2 Duration Units: Years Frequency: Intermittent Intervention/Comfort measure: Relaxation;Reposition HPI: Barbara Schwab is a 23 year old adult presenting today with pins and needles feeling in B/L index and middle fingers that radiates up to elbow. Pain history is noted as above. Denies any injury. Pain started in 2020 during . She was evaulated for symptoms on 08/23/20 and an EMG/NCVwas ordered but never obtained. Previous Treatments: Ice: Yes Heat: Yes Brace: No NSAIDs: No Injections: No Surgeries: No Physical Therapy: No Review of Systems: Patient did not have, and does not currently have, any weight loss, malaise, fever, chills, headache, chest pain, chest pressure, palpitations, cough, shortness of breath, orthopnea, paroxsymal nocturnal dyspnea, nausea, vomiting, diarrhea, constipation, melena, hematochezia, urinary difficulties, prolonged bleeding, easily bruising, heat or cold intolerance, new onset joint pain or swelling, newonset extremity weakness or numbness, new onset auditory or visual disturbances, lightheadedness, dizziness, partial loss of consciousness or full loss of consciousness. Current Outpatient Medications on File Prior to Visit Medication Sig ondansetron orally disintegrating (ZOFRAN ODT) 4 mg disintegrating tablet Take 1 tablet by mouth every 6 hours as needed for nausea/vomiting. (Patient not taking: Reported on 09/20/2023) omeprazole (PRILOSEC) 20 mg capsule Take 20 mg by mouth once daily. ondansetron orally disintegrating (ZOFRAN ODT) 4 mg disintegrating tablet Take 1 tablet by mouth every 6 hours as needed for nausea/vomiting. (Patient not taking: Reported on 07/09/2023) vit 18-rxsh-xolrp-dha (PRENATE MINI, FERR ASP GLYCIN,) 18-1-350 mg cap Take 1 Dose by mouth once daily. (Patient not taking: Reported on 09/20/2023) valACYclovir (VALTREX) 1 gram Take 1 tablet by mouth once daily. No current facility-administered medications on file prior to visit. ALLERGIES Allergen Reactions Adhesive Tape (Irish* Rash Latex Rash Physical Exam: Vitals: LMP 03/21/2023 Psych: Pleasant, good affect and mood General Appearance: Well appearing, alert, in no acute distress, well-hydrated, well nourished.. Skin: Skin color, texture, turgor normal, no suspicious rashes or lesions. Peripheral Pulses: Normal. Neurologic: Gait normal. Reflexes normal and symmetric. Sensation grossly intact.. Lymph Nodes: No cervical lymphadenopathy, No supraclavicular lymphadenopathy, No axillary lymphadenopathy., and No inguinal lymphadenopathy.. Respiratory: No recent pulmonary infection, hemoptysis, chronic cough, or shortness of breath at rest Rheumatologic: Joint deformities: b/l hand numbness Right Hand Exam Tenderness The patient is experiencing tenderness in the palmar area. Range of Motion The patient has normal right wrist ROM. Wrist Extension: normal Flexion: normal Pronation: normal Supination: normal Muscle Strength The patient has normal right wrist strength. Rn Correctional: 4/5 Tests Phalen s sign: positive Tinel's sign (median nerve): positive Leann's test: negative Other Erythema: absent Sensation: normal Pulse: present Comments: B/l med/uln/rad/ax nerves intact Left Hand Exam Tenderness The patient is experiencing tenderness in the palmar area. Range of Motion The patient has normal left wrist ROM. Wrist Extension: normal Flexion: normal Pronation: normal Supination: normal Muscle Strength The patient has normal left wrist strength. Rn Correctional: 4/5 Tests Phalen s sign: positive Tinel's sign (median nerve): positive Leann's test: negative Other Erythema: absent Sensation: normal Pulse: present Imaging: Last XR Hand/Finger - Impression Only XR HAND GENERAL 3V PA/LAT/OBL RT Exam End: 09/20/2019 10:25 AM (Final result) Impression: IMPRESSION: Normal radiographs of the right hand and forearm Residential Program Manager: CARROLL Transcribe Date/Time: Sep 20 2019 10:28A Dictated by : BEL MARTINEZ MD ... Assessment and Plan: Impression: Encounter Diagnosis ICD-10-CM 1. Bilateral carpal tunnel syndrome G56.03 EMG(NEURO/NI) Plan: Cock up wrist splint Emg as ordered in past, not done bc Discussed stopping vaping Patient aware and in agreement of plan. All questions answered. Today, in detail, through a thorough evaluation, we discussed possible etiologies of pain and our plans for further diagnostic and therapeutic interventions. We discussed strategies for decreasing pain and improving strength, stability and motion. Patient's questions were answered in detailed. Patient verbalizes understanding and agrees with the treatment plan as discussed. Sanjana Pugh D.O. M.P.H. documented in this encounterSelect [facility]04-04-2024 History of Present illness Narrative* Apolonia Wilson APRN.WELDING MACHINE OPERATOR FRICTION - 10/09/2023 3:55 PM EDT SUBJECTIVE: Barbara Schwab is a 23 year old adult. Who presents today in the triage process with headache and vomiting and diarrhea for the last 3 days. She usually takes tylenol and the hedaches go away butthis one has not. Currently her headache is a 7/10. She states that this is the worse headache thatshe has ever had. She has not had anything to eat or drink in the last 24 hours and has not been able to sleep. She is here with family who said they wanted to start here but knew they would have to go to the ER. The family will take her to [place] ER for further eval and treatment of the worst GUPTA of her enitire life as well as the dehydration. HPI PAST MEDICAL HISTORY Diagnosis Date Anemia during in second trimester 05/18/2019 Depression GERD (gastroesophageal reflux disease) H/O seasonal allergies Herpes simplex virus (HSV) infection IBS (irritable bowel syndrome) FAMILY HISTORY Problem Relation Age of Onset Hypertension Mother other (insomnia) Mother other (fibromyalgia) Mother other (IBS) Mother Heart Attack Father Depression Sister No Known Problems Brother Diabetes Maternal Grandmother Hypertension Maternal Grandmother other ([place]'s Disease) Maternal Grandmother Cancer Maternal Grandfather Lung Hypertension Maternal Grandfather Alcohol/Drug Paternal Grandmother Alcohol/Drug Paternal Grandfather other (acid reflux) Son Social History Tobacco Use Smoking status: Former Years: .5 Types: Cigarettes Quit date: 01/03/2019 Years since quittin.7 Smokeless tobacco: Former Types: Chew Quit date: 01/31/2019 Vaping Use Vaping Use: current everyday user Substance Use Topics Alcohol use: Never Drug use: Not Currently Types: Marijuana ALLERGIES Allergen Reactions Adhesive Tape (Irish* Rash Latex Rash Current Outpatient Medications Medication Sig Dispense Refill omeprazole (PRILOSEC) 20 mg capsule Take 20 mg by mouth once daily. valACYclovir (VALTREX) 1 gram Take 1 tablet by mouth once daily. 30 tablet 5 ondansetron orally disintegrating (ZOFRAN ODT) 4 mg disintegrating tablet Take 1 tablet by mouth every 6 hours as needed for nausea/vomiting. (Patient not taking: Reported on 09/20/2023) 6 tablet 0 ondansetron orally disintegrating (ZOFRAN ODT) 4 mg disintegrating tablet Take 1 tablet by mouth every 6 hours as needed for nausea/vomiting. (Patient not taking: Reported on 07/09/2023) 21 tablet 0 vit 31-vroq-stjbw-dha (PRENATE MINI, FERR ASP GLYCIN,) 18-1-350 mg cap Take 1 Dose by mouth once daily. (Patient not taking: Reported on 09/20/2023) 30 capsule 12 No current facility-administered medications for this visit. OBJECTIVE: BP 110/90 Pulse 105 Temp 37.2 C (98.9 F) Resp 20 Wt 46.9 kg (103 lb 6.3 oz) LMP 03/21/2023 (Approximate) SpO2 96% ROS all other systems reviewed and are negative ASSESSMENT/PLAN: 1. Headache, unspecified headache type - ICD9: 784.0, ICD10: R51.9 (primary diagnosis) 2. Dehydration - ICD9: 276.51, ICD10: E86.0 Apolonia Wilson APRN.MATTHEW documented in this encounterSelect [facility]03-19-2024 Miscellaneous Notes* Telephone Encounter - Rufina Barron LPN - 09/23/2023 8:17 AM EDT Left message for patient with negative results and recommendations.Rufina Barron LPN * Telephone Encounter - Bel Monteiro MA - 09/22/2023 7:28 AM EDT Unable to reach patient. Mailbox full/Mailbox not set up/ Number incorrect. Please try again later. Bel Monteiro MA * Telephone Encounter - Esha Porter APRN.CNP - 09/22/2023 7:16 AM EDT No significant growth on urine culture. Normal jerod which everyone has was noticed. If symptoms persist she should see her primary care drBib Thank you documented in this encounterSelect [facility]03-16-2024 History of Present illness Narrative* Miky Medeiros PA - 09/20/2023 1:47 PM EDT This note was created using Vozeemeriter. Subjective Barbara Schwab is a 23 year old adult. HPI 23-year-old female presents for UTI symptoms. Patient states that she has been having UTI symptoms for the past few days. She reports burning with urination, suprapubic pressure, low back pain. She denies any fevers or vomiting. She has had UTIs in the past. No blood in the urine. No flank pain. No history of kidney stone. No concern for . She finished her menstrual cycle 2 days ago.She denies any vaginal discharge. No concern for STD. PAST MEDICAL HISTORY Diagnosis Date Anemia during in second trimester 05/18/2019 Depression GERD (gastroesophageal reflux disease) H/O seasonal allergies Herpes simplex virus (HSV) infection IBS (irritable bowel syndrome) PAST SURGICAL HISTORY Procedure Laterality Date NONE ALLERGIES Adhesive Tape (Rosins) and Latex MEDICATIONS omeprazole (PRILOSEC) 20 mg capsule Take 20 mg by mouth once daily. valACYclovir (VALTREX) 1 gram Take 1 tablet by mouth once daily. nitrofurantoin monohydrate and macrocrystal (MACROBID) 100 mg capsule Take 1 capsule by mouth two times a day for 7 days. ondansetron orally disintegrating (ZOFRAN ODT) 4 mg disintegrating tablet Take 1 tablet by mouth every 6 hours as needed for nausea/vomiting. (Patient not taking: Reported on 09/20/2023) ondansetron orally disintegrating (ZOFRAN ODT) 4 mg disintegrating tablet Take 1 tablet by mouth every 6 hours as needed for nausea/vomiting. (Patient not taking: Reported on 07/09/2023) vit 62-dedk-rqkms-dha (PRENATE MINI, FERR ASP GLYCIN,) 18-1-350 mg cap Take 1 Dose by mouth once daily. (Patient not taking: Reported on 09/20/2023) FAMILY HISTORY Problem Relation Age of Onset Hypertension Mother other (insomnia) Mother other (fibromyalgia) Mother other (IBS) Mother Heart Attack Father Depression Sister No Known Problems Brother Diabetes Maternal Grandmother Hypertension Maternal Grandmother other ([place]'s Disease) Maternal Grandmother Cancer Maternal Grandfather Lung Hypertension Maternal Grandfather Alcohol/Drug Paternal Grandmother Alcohol/Drug Paternal Grandfather other (acid reflux) Son Social History Tobacco Use Smoking status: Former Years: .5 Types: Cigarettes Quit date: 01/03/2019 Years since quittin.7 Smokeless tobacco: Former Types: Chew Quit date: 01/31/2019 Vaping Use Vaping Use: current everyday user Substance Use Topics Alcohol use: Never Drug use: Not Currently Types: Marijuana Review of Systems Constitutional: Negative for chills and fever. HENT: Negative for congestion and sore throat. Respiratory: Negative for cough and shortness of breath. Gastrointestinal: Negative for diarrhea and vomiting. Genitourinary: Positive for dysuria, frequency and urgency. Negative for flank pain, vaginal bleeding, vaginal discharge and vaginal pain. Musculoskeletal: Positive for back pain. Objective BP 110/62 Pulse 106 Temp 36.6 C (97.8 F) Resp 16 Wt 46.7 kg (102 lb 15.3 oz) LMP 03/21/2023 (Approximate) SpO2 98% Physical Exam Vitals and nursing note reviewed. Constitutional: General: Ching Schwab is not in acute distress. Appearance: Normal appearance. Ching Schwba is not toxic-appearing. HENT: Nose: Nose normal. Mouth/Throat: Mouth: Mucous membranes are moist. Eyes: Conjunctiva/sclera: Conjunctivae normal. Cardiovascular: Rate and Rhythm: Normal rate and regular rhythm. Pulmonary: Effort: Pulmonary effort is normal. Breath sounds: Normal breath sounds. Abdominal: General: Abdomen is flat. Palpations: Abdomen is soft. Tenderness: There is abdominal tenderness (Mild suprapubic tenderness). There is no right CVA tenderness or left CVA tenderness. Neurological: Mental Status: Ching Schwab is alert. Assessment and Plan ASSESSMENT/PLAN: 1. Burning with urination - ICD9: 788.1, ICD10: R30.0 acute - UA positive for neptali esterase, hematuria, proteinuria, nitrates, and bilirubin. Results skewed by patient taking Azo. - Send urine for culture - Begin treatment with Macrobid 100 mg BID for 7 days - Patient education for prevention given - UA DIP, URINE (POC) - URINE CULTURE -Patient denies concern for STD or Diagnosis and treatment plan were discussed and questions were answered to the patient's satisfaction. Pt acknowledged understanding of concepts and follow up plan. Specific signs and symptoms that would indicate the need for higher level of care were discussed in detail warranting prompt ER evaluation. CRESCENCIO Viveros documented in this encounterSelect [facility]02-16-2024 History of Present illness Narrative* Miky Medeiros PA - 08/22/2023 12:43 PM EST Images from the original note were not included. This note was created using Vozeemeriter. Subjective Barbara Schwab is a 23 year old adult. HPI 23-year-old female presents for right inner thigh skin lesion. Patient states she has had a small bump on her right inner thigh for couple of years. She thought was just a skin tag. She states that yesterday is very painful and she noticed a conner on it. And now has a blood blister over it.She did try to pop it. She denies any fevers. No vaginal pain or discharge. No concern for STD. Sheis not or breast-feeding PAST MEDICAL HISTORY Diagnosis Date Anemia during in second trimester 05/18/2019 Depression GERD (gastroesophageal reflux disease) H/O seasonal allergies Herpes simplex virus (HSV) infection IBS (irritable bowel syndrome) PAST SURGICAL HISTORY Procedure Laterality Date NONE ALLERGIES Adhesive Tape (Rosins) and Latex MEDICATIONS ondansetron orally disintegrating (ZOFRAN ODT) 4 mg disintegrating tablet Take 1 tablet by mouth every 6 hours as needed for nausea/vomiting. omeprazole (PRILOSEC) 20 mg capsule Take 20 mg by mouth once daily. vit 92-tnll-lnzat-dha (PRENATE MINI, FERR ASP GLYCIN,) 18-1-350 mg cap Take 1 Dose by mouth once daily. valACYclovir (VALTREX) 1 gram Take 1 tablet by mouth once daily. doxycycline monohydrate 100 mg tablet Take 1 tablet by mouth two times a day for 7 days. mupirocin (BACTROBAN) 2 % ointment Apply to affected area three times a day for 7 days. ondansetron orally disintegrating (ZOFRAN ODT) 4 mg disintegrating tablet Take 1 tablet by mouth every 6 hours as needed for nausea/vomiting. (Patient not taking: Reported on 07/09/2023) FAMILY HISTORY Problem Relation Age of Onset Hypertension Mother other (insomnia) Mother other (fibromyalgia) Mother other (IBS) Mother Heart Attack Father Depression Sister No Known Problems Brother Diabetes Maternal Grandmother Hypertension Maternal Grandmother other ([place]'s Disease) Maternal Grandmother Cancer Maternal Grandfather Lung Hypertension Maternal Grandfather Alcohol/Drug Paternal Grandmother Alcohol/Drug Paternal Grandfather other (acid reflux) Son Social History Tobacco Use Smoking status: Former Years: .5 Types: Cigarettes Quit date: 01/03/2019 Years since quittin.6 Smokeless tobacco: Former Types: Chew Quit date: 01/31/2019 Vaping Use Vaping Use: current everyday user Substance Use Topics Alcohol use: Never Drug use: Not Currently Types: Marijuana Review of Systems Constitutional: Negative for chills and fever. HENT: Negative for congestion and sore throat. Respiratory: Negative for cough and shortness of breath. Gastrointestinal: Negative for diarrhea and vomiting. Skin: Positive for color change. + Skin lesion over right inner thigh Objective BP 108/78 Pulse 116 Temp 36.8 C (98.3 F) Resp 20 Wt 47.4 kg (104 lb 9.6 oz) LMP 03/21/2023 (Approximate) SpO2 99% Physical Exam Vitals and nursing note reviewed. Exam conducted with a facetor present. Constitutional: General: Ching Schwab is not in acute distress. Appearance: Normal appearance. Ching Schwab is not toxic-appearing. HENT: Left Ear: Tympanic membrane normal. Cardiovascular: Rate and Rhythm: Normal rate and regular rhythm. Pulmonary: Effort: Pulmonary effort is normal. Breath sounds: Normal breath sounds. Genitourinary: Labia: Right: No lesion. Left: No lesion. Comments: Small blood blister noted over right inner thigh region with mild surrounding erythema. No other lesions. No vesicular lesions. Tender to touch. No drainage. No fluctuance. No abscess felt.No lymphadenopathy. Neurological: Mental Status: Ching Schwab is alert. Assessment and Plan ASSESSMENT/PLAN: 1. Skin infection - ICD9: 686.9, ICD10: L08.9 -Small blood blister that patient states had a conner on it yesterday. Small amount of surrounding erythema. No fluctuance or abscess to I&D at this time. Does not appear like a herpetic lesion. - Begin treatment with doxycycline and mupirocin - No lymphangetic streaking, this was defined for patient to watch for and to seek medical care immediately if appears -Advised if no improvement after finishing antibiotic, follow-up with PCP. She understands. Diagnosis and treatment plan were discussed and questions were answered to the patient's satisfaction. Pt acknowledged understanding of concepts and follow up plan. Specific signs and symptoms that would indicate the need for higher level of care were discussed in detail warranting prompt ER evaluation. CRESCENCIO Viveros documented in this encounterSelect [facility]09-19-2023 Miscellaneous Notes* Telephone Encounter - Rufina Barron LPN - 03/25/2023 6:46 PM EDT Still unable to reach patient so will wait on patient to return is she is still having symptoms.Rufina Barron LPN * Telephone Encounter - Bel Monteiro - 03/24/2023 6:09 PM EDT Unable to reach patient. Mailbox full/Mailbox not set up/ Number incorrect. Please try again later. Bel Monteiro * Telephone Encounter - Angy Richmond MA - 03/23/2023 3:39 PM EDT Attempted to call pt, voicemail isn't set up. Will try again later. Angy Richmond MA * Telephone Encounter - Esha Porter APRN.MATTHEW - 03/23/2023 3:09 PM EDT Please call and make sure symptoms are improving from UTI. If symptoms or not improving please havepatient follow-up with primary care provider. documented in this encounterSelect [facility]09-16-2023 History of Present illness Narrative* Tasneem Ham APRN.MATTHEW - 03/22/2023 9:20 AM EDT Subjective UTI Associated symptoms include nausea and frequency. Pertinent negatives include no chills, no vomiting, no hematuria, no urgency and no flank pain. Barbara Schwab is a 22 year old adult who presents with dysuria, frequency, feeling tired, and some nausea. Symptoms started yesterday. She has not had a fever. She has been taking tylenol. LMP:current. Review of Systems Constitutional: Negative for chills and fever. Respiratory: Negative. Cardiovascular: Negative. Gastrointestinal: Positive for abdominal pain (pelvic cramping) and nausea. Negative for diarrhea and vomiting. Genitourinary: Positive for dysuria and frequency. Negative for flank pain, hematuria and urgency. Musculoskeletal: Positive for back pain. BP 104/80 Pulse 100 Temp 36.7 C (98.1 F) Resp 16 Wt 46.7 kg (103 lb) LMP 03/21/2023 (Approximate) PAST MEDICAL HISTORY Diagnosis Date Anemia during in second trimester 05/18/2019 Depression GERD (gastroesophageal reflux disease) H/O seasonal allergies Herpes simplex virus (HSV) infection IBS (irritable bowel syndrome) PAST SURGICAL HISTORY Procedure Laterality Date NONE ALLERGIES Adhesive Tape (Rosins) and Latex MEDICATIONS omeprazole (PRILOSEC) 20 mg capsule Take 20 mg by mouth once daily. ondansetron orally disintegrating (ZOFRAN ODT) 4 mg disintegrating tablet Take 1 tablet by mouth every 6 hours as needed for nausea/vomiting. vit 82-yxsi-rgzwz-dha (PRENATE MINI, FERR ASP GLYCIN,) 18-1-350 mg cap Take 1 Dose by mouth once daily. valACYclovir (VALTREX) 1 gram Take 1 tablet by mouth once daily. nitrofurantoin monohydrate and macrocrystal (MACROBID) 100 mg capsule Take 1 capsule by mouth twicedaily for 5 days. FAMILY HISTORY Problem Relation Age of Onset Hypertension Mother other (insomnia) Mother other (fibromyalgia) Mother other (IBS) Mother Heart Attack Father Depression Sister No Known Problems Brother Diabetes Maternal Grandmother Hypertension Maternal Grandmother other ([place]'s Disease) Maternal Grandmother Cancer Maternal Grandfather Lung Hypertension Maternal Grandfather Alcohol/Drug Paternal Grandmother Alcohol/Drug Paternal Grandfather other (acid reflux) Son Social History Tobacco Use Smoking status: Former Years: .5 Types: Cigarettes Quit date: 01/03/2019 Years since quittin.2 Smokeless tobacco: Former Types: Chew Quit date: 01/31/2019 Vaping Use Vaping Use: current everyday user Substance Use Topics Alcohol use: Never Drug use: Not Currently Types: Marijuana Objective Physical Exam Vitals and nursing note reviewed. Constitutional: General: Ching Schwab is not in acute distress. Appearance: Normal appearance. Ching Schwab is not ill-appearing. Cardiovascular: Rate and Rhythm: Normal rate and regular rhythm. Heart sounds: Normal heart sounds. Pulmonary: Effort: Pulmonary effort is normal. No respiratory distress. Breath sounds: Normal breath sounds. No rales. Abdominal: General: Abdomen is flat. There is no distension. Palpations: Abdomen is soft. There is no mass. Tenderness: There is abdominal tenderness in the suprapubic area. There is no right CVA tenderness,left CVA tenderness or guarding. Skin: General: Skin is warm and dry. Neurological: Mental Status: Ching Schwab is alert. ASSESSMENT/PLAN: 1. Burning with urination - ICD9: 788.1, ICD10: R30.0 acute - UA positive for neptali esterase, hematuria, and proteinuria - Send urine for culture - Begin treatment with Macrobid 100 mg BID for 5 days - Patient education for prevention given - UA DIP, URINE (POC) - URINE CULTURE - NITROFURANTOIN MONOHYDRATE & MACROCRYSTAL 100 MG ORAL CAP - Follow-up with your PCP in 3-5 days if symptoms have not improved or sooner if symptoms worsen - Discussed red flags and need for immediate medical evaluation if any occur. - Discussed supportive care treatment with fluids, rest and analgesia. - Discussed expected course of illness Tasneem Ham APRN.WELDING MACHINE OPERATOR FRICTION documented in this encounterSelect [facility]09-16-2023 Instructions* Patient Instructions* Tasneem Ham APRN.CNP - 03/22/2023 9:20 AM EDT ASSESSMENT/PLAN: 1. Burning with urination - ICD9: 788.1, ICD10: R30.0 acute - UA positive for neptali esterase, hematuria, and proteinuria - Send urine for culture - Begin treatment with Macrobid 100 mg BID for 5 days - Patient education for prevention given - UA DIP, URINE (POC) - URINE CULTURE - NITROFURANTOIN MONOHYDRATE & MACROCRYSTAL 100 MG ORAL CAP - Follow-up with your PCP in 3-5 days if symptoms have not improved or sooner if symptoms worsen - Discussed red flags and need for immediate medical evaluation if any occur. - Discussed supportive care treatment with fluids, rest and analgesia. - Discussed expected course of illness Tasneem Ham APRN.CNP [facility] PATIENT INFO BLADDER INFECTION OVERVIEW Bladder infections are one of the most common infections, causing symptoms of burning with urination and needing to urinate frequently. A bladder infection is a type of urinary tract infection (UTI).Bladder infections are more common is women than men. Most women have an uncomplicated bladder infection that is easily treated with a short course of antibiotics. In men, bladder infections may alsoaffect the prostate gland, and a longer course of treatment may be needed. BLADDER INFECTION CAUSES The urinary tract includes the kidneys (which filter urine), ureters (the tube that carries urine from the kidneys to the bladder), the bladder (which stores urine), and urethra (the tube that carries urine out of the bladder). Bacteria do not normally live in these areas. However, bacteria normally live close to the urethra in women and men who are not circumcised. Bladder infections occur when bacteria travel up the urethra into the bladder. Factors that increase the risk of developing a bladder infection include: Vaginal sex Use of spermicides History of past bladder infections Diabetes In men, not being circumcised or having anal sex increase the risk of bladder infections. BLADDER INFECTION SYMPTOMS The typical symptoms of a bladder infection include: Pain or burning when urinating Frequent need to urinate Urgent need to urinate Blood in the urine Fever, back pain, nausea, or vomiting are not common symptoms of a bladder infection, but can occurin people with a kidney infection (pyelonephritis). If you have these symptoms, you should call your doctor or nurse immediately. Is it a bladder infection or something else? -- Burning with urination can also occur in people with vaginitis (eg, yeast infection) or urethritis (inflammation of the urethra). For this reason, it is important to call your healthcare provider before assuming you have a bladder infection. BLADDER INFECTION DIAGNOSIS Simple bladder infections are usually diagnosed based upon your symptoms alone. However, most patients, especially those who have bladder infection symptoms for the first time, should see a healthcare provider for urine testing. Urine culture -- A urine culture is a test that uses a sample of urine to try and grow bacteria in a laboratory. It usually requires about 48 hours to get results. However, a urine culture is not always required to diagnose a bladder infection. Urine culture is often recommended if: You have never had a bladder infection before You have symptoms that are not typical for bladder infection You have had "resistant" bladder infections before You have frequent bladder infections You do not begin to feel better within 24 to 48 hours after starting antibiotics You are BLADDER INFECTION TREATMENT Bladder infection -- In young, healthy adolescents and adults with a bladder infection, the usual treatment includes a three to seven day course of antibiotics. The typical drugs chosen are: trimethoprim-sulfamethoxazole (Bactrim ), nitrofurantoin (Macrobid ), ciprofloxacin (Cipro ) or levofloxacin (Levaquin ). In men, the infection may involve your prostate gland and treatment is usually given for at least 7days. Your symptoms should begin to resolve within one day after starting treatment. It is important to take the full course of antibiotics to completely eliminate the infection. If your symptoms persist for more than two or three days after starting treatment, call your healthcare provider. If needed, you can take a prescription medication that numbs the bladder and urethra (phenazopyridine [Pyridium ]) to reduce the burning pain of some UTIs. A similar medication is available without aprescription (eg, Uristat). Both medications change the color of the urine (usually blue or orange)and can interfere with laboratory testing. You should not take these medications for more than 48 hours due to the risk of side effects. These medications do not treat the infection and must be takenalong with an antibiotic. Some providers recommend drinking more fluids while treating bladder infections to help flush bacteria from the bladder. Others believe that drinking more fluids may dilute the antibiotic in the bladder and make the medication less effective. No studies have been performed to address this issue. There are also no good studies on the effectiveness of cranberry juice for treating a bladder infection; we do not recommend using cranberry juice to treat bladder infections. Follow-up care -- Follow-up testing is not needed in healthy, young men or women with a bladder infection if symptoms resolve. women are usually asked to have a repeat urine culture one to two weeks after treatment has ended to make sure the bacteria are no longer in the urine. RECURRENT BLADDER INFECTIONS Bladder infections versus other causes -- Some adults, especially women, develop bladder infectionsfrequently. In this case, it is important to confirm that your symptoms (eg, pain or burning, frequency, and urgency) are caused by a bladder infection. Symptoms are usually similar from one infection to another. The best way to confirm an infection is to have a urine culture. If your urine culture is negative for infection, other causes of pain, burning, and frequency should be investigated. There is no reason to take antibiotics if your urine culture is negative. Need for further testing -- If you continue to develop bladder infections, you may require further testing. If you continue to notice blood in your urine after your bladder infection has cleared, you should have further testing. Preventing recurrent UTIs -- Women with recurrent urinary tract infections may be advised to take steps to prevent bladder infections, including one or more of the following: Changes in control -- Women who develop frequent bladder infections and use spermicides, particularly those who also use a diaphragm, may be encouraged to use an alternate method of control. Cranberry products -- Taking cranberry juice or cranberry tablets has been promoted as one way to help prevent frequent bladder infections. However, this has not been proven. Drinking more fluid and urinating after intercourse -- Although studies have not proven that drinking more fluids or urinating soon after intercourse can prevent infection, some healthcare providers recommend these measures since they are not harmful. Drinking more fluid may help to wash out bacteria that enter the bladder. Postmenopausal women -- Postmenopausal women who develop recurrent bladder infections may benefit from using vaginal estrogen. Vaginal estrogen is available in a flexible ring that is worn in the vagina for three months (eg, Estring ), a small tablet (Vagifem ), or a cream (eg, Premarin or Estrace ). Vaginal estrogen is discussed in more detail in a separate topic review. Antibiotics -- A preventive antibiotic treatment may be recommended if you repeatedly develop bladder infections and have not responded to other preventive measures. Antibiotics are highly effective in preventing recurrent bladder infections and can be taken in several different ways. Preventive antibiotic -- You can take a low dose of an antibiotic once per day or three times per week for six months to several years. Antibiotics following intercourse -- In women who develop urinary tract infections after sex, taking a single low dose antibiotic after intercourse can help to prevent bladder infections. Self-treatment -- A plan to begin antibiotics at the first sign of a bladder infection may be recommended in some situations. Before starting this regimen, it is important that you have had testing (urine cultures) to confirm that your symptoms are caused by a bladder infection; some people have symptoms of a bladder infection but do not actually have an infection. documented in this encounterSelect [facility]08-10-2023 Miscellaneous Notes* Telephone Encounter - Maria C Savage LPN - 02/13/2023 2:36 PM EDT Pt scheduled on schedule. Maria C Savage LPN * Telephone Encounter - Antonieta Farrell MD - 02/13/2023 1:22 PM EDT She can be seen by [facility] tomorrow- education slot is open- ok to book in there as it will not be scheduled by tomorrow. * Telephone Encounter - Maria C Savage LPN - 02/13/2023 7:59 AM EDT Please see pt's mychart message and further advise if you want to see her. Maria C Savage LPN documented in this encounterSelect [facility], [facility]08-03-2023 History of Present illness Narrative* Nilda Lopez RDMS - 02/06/2023 3:15 PM EDT Radiology Service Progress Note PATIENT NAME: Barbara Schwab DATE OF SERVICE: February 06, 2023 TIME: 4:04 PM PATIENT IDENTITY VERIFICATION COMPLETED USING TWO (2) IDENTIFIERS: Name and Date of confirmedby patient verbally. FALL SCREENING: Has the patient had 2 falls in the last year or 1 fall with injury or currently using an Ambulatory Assistive Device (Walker, Cane, Wheelchair, Crutches, etc.)? No PATIENT GENDER DATA: Female. status: : No status: NO. PATIENT RELEVANT IMPLANT DATA REVIEWED: Not Applicable RADIOLOGY DEPARTMENT: Ultrasound PERIPHERAL IV DATA: Not applicable SIGNED BY: Nilda Lopez RDMS RVT February 06, 2023 4:04 PM documented in this encounterSelect [facility]07-31-2023 Miscellaneous Notes* Telephone Encounter - Erik Galicia RN - 02/03/2023 9:00 AM EDT Informed patient and transferred her to schedule * Telephone Encounter - Antonieta Farrell MD - 02/03/2023 8:53 AM EDT Transvaginal ultrasound for radiology ordered. * Telephone Encounter - Erik Galicia RN - 02/03/2023 8:[address] Mendoza, Does patient need ultrasound for pelvic pain? She did say she still has a "decent amount of pain". No order in Epic. * Telephone Encounter - Antonieta Farrell MD - 02/03/2023 8:21 AM EDT Thank you. * Telephone Encounter - Elena Rivas RN - 01/31/2023 2:43 PM EDT Called and notified patient that HCG level is negative for . hCG Quantitative, Blood Date Value 01/30/2023 <0.6 mIU/mL * Telephone Encounter - Becky Fay RN - 01/30/2023 12:27 PM EDT Leave phone note open to check for 01/30/23 hcg quant result tomorrow since DM is out. If it is positive patient needs stat u/s tomorrow too. If unable to have [facility] u/s here she is to have at [facility]. Becky Fay RN documented in this encounterSelect [facility]07-27-2023 History of Present illness Narrative* Antonieta Farrell MD - 01/30/2023 11:24 AM EDT Director Of Graduate Admissions offered: Patient declines. Barbara Gutierrez is a 22 year old female who presents for pelvic pain started last night- reports positive urine test at home since 01/15/23 but negative when she comes to office. Reports started bleeding heavy this morning. Pt reports has set of twins 1.5 yrs old and one son 3 yrs old. Pt reports nausea, no fever. Reports this is unplanned . Not taking anything to prevent . Today her hcg was negative in office. Pt reports rates pain 02/13. Pt offers no other concerns. 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 History LMP: 12/08/2022 (Exact Date), Having periods Age at Menarche: Age at First : Age at Menopause: Global Professional History Comments: Sexual Activity: Yes; Male Contraception: No contraception data on record PAST MEDICAL HISTORY Diagnosis Date Anemia during in second trimester 05/18/2019 Depression GERD (gastroesophageal reflux disease) H/O seasonal allergies Herpes simplex virus (HSV) infection IBS (irritable bowel syndrome) PAST SURGICAL HISTORY Procedure Laterality Date NONE FAMILY HISTORY Problem Relation Age of Onset Hypertension Mother other (insomnia) Mother other (fibromyalgia) Mother other (IBS) Mother Heart Attack Father Depression Sister No Known Problems Brother Diabetes Maternal Grandmother Hypertension Maternal Grandmother other ([place]'s Disease) Maternal Grandmother Cancer Maternal Grandfather Lung Hypertension Maternal Grandfather Alcohol/Drug Paternal Grandmother Alcohol/Drug Paternal Grandfather other (acid reflux) Son Social History Tobacco Use Smoking status: Former Years: 0.50 Types: Cigarettes Quit date: 01/03/2019 Years since quittin.0 Smokeless tobacco: Former Types: Chew Quit date: 01/31/2019 Vaping Use Vaping Use: current everyday user Substance Use Topics Alcohol use: Never Drug use: Not Currently Types: Marijuana Current Outpatient Medications Medication Sig omeprazole (PRILOSEC) 20 mg capsule Take 20 mg by mouth once daily. ondansetron orally disintegrating (ZOFRAN ODT) 4 mg disintegrating tablet Take 1 tablet by mouth every 6 hours as needed for nausea/vomiting. vit 20-jpnk-rdijj-dha (PRENATE MINI, FERR ASP GLYCIN,) 18-1-350 mg cap Take 1 Dose by mouth once daily. valACYclovir (VALTREX) 1 gram Take 1 tablet by mouth once daily. No current facility-administered medications for this visit. Allergies As of Date: 01/30/2023 Allergen Noted Reaction ADHESIVE TAPE (ROSINS) 02/04/2014 Rash LATEX Rash Fully Assessed 01/30/2023 REVIEW OF SYSTEMS Abdomen: see hpi Bladder: no dysuria.. Expanded ROS: GENERAL: Negative for fever Allergies and current medication updated:Yes EXAM: BP 104/70 Wt 104 lb 3.2 oz (47.3kg) LMP 12/08/2022 GENERAL: pleasant, female in no apparent distress- pt does not appear to be uncomfortablewhile sitting or laying on exam table. HEENT: Normocephalic, mucus membranes moist, and no lesions NECK: full range of motion DERMATOLOGY: Normal, without lesions, non-icteric, and non-hirsute ABD: soft, no masses.. No rebound, no guarding. PELVIC: external genitalia normal, normal [place]'s glands, urethra, [place]'s glands, no vulvar lesions, no cervical lesions, good vaginal support, normal appearing perineal body and perianal region, small amt of blood in vault BIMANUAL: uterus normal size, shape and consistency, no adnexal masses, and Mild tenderness NEURO: alert and oriented x3,exam grossly non-focal EXTREMITIES: normal ASSESSMENT AND PLAN: Encounter Diagnosis ICD-10-CM 1. Pelvic pain in female R10.2 CBC + DIFF HCG QUAL UR B/O HCG QUANTITATIVE 2. Irregular menstrual cycle N92.6 CBC + DIFF HCG QUANTITATIVE 3. Vaginal bleeding N93.9 4. Discussed causes of irregular menstrual cycle. We will get an hCG level and if that is positive will order a pelvic ultrasound. I offered her to go to the hospital for stat hCG level and a pelvic ultrasound but patient declined as she states that she has her children and her ,. Patient does not appear unstable nor does she appear to be in any severe distress or severe discomfort at thistime. Follow-up hCG Quant level. Medical Decision Making: Problems: Moderate: New problem with uncertain prognosis Data: Unique test(s) ordered: 3+ Medical Decision Making Level: 4 - Moderate Antonieta Stoll MD documented in this encounterSelect [facility]07-27-2023 Miscellaneous Notes* Telephone Encounter - Elena Rivas RN - 01/30/2023 9:42 AM EDT Called patient. Took a +UPT again today. Appointment scheduled for today. Elena Rivas RN documented in this encounterSelect [facility]07-13-2023 History of Present illness Narrative* Pricila Vergara, 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 FRICTION - 01/16/2023 4:37 PM EDT Barbara Gutierrez is a 22 year old female who presents for confirmation. HPI: LMP 12/08/2022. Regular menses. Positive home UPT last 2 days. Here for confirmation. Is not preventing . Taking PNVFA. 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 History LMP: 08/03/2022 (Exact Date), Having periods Age at Menarche: Age at First : Age at Menopause: Global Professional History Comments: Sexual Activity: Yes; Male Contraception: No contraception data on record PAST MEDICAL HISTORY Diagnosis Date Anemia during in second trimester 05/18/2019 Depression GERD (gastroesophageal reflux disease) H/O seasonal allergies Herpes simplex virus (HSV) infection IBS (irritable bowel syndrome) PAST SURGICAL HISTORY Procedure Laterality Date NONE FAMILY HISTORY Problem Relation Age of Onset Hypertension Mother other (insomnia) Mother other (fibromyalgia) Mother other (IBS) Mother Heart Attack Father Depression Sister No Known Problems Brother Diabetes Maternal Grandmother Hypertension Maternal Grandmother other ([place]'s Disease) Maternal Grandmother Cancer Maternal Grandfather Lung Hypertension Maternal Grandfather Alcohol/Drug Paternal Grandmother Alcohol/Drug Paternal Grandfather other (acid reflux) Son Social History Tobacco Use Smoking status: Former Years: 0.50 Types: Cigarettes Quit date: 01/03/2019 Years since quittin.0 Smokeless tobacco: Former Types: Chew Quit date: 01/31/2019 Vaping Use Vaping Use: current everyday user Substance Use Topics Alcohol use: Never Drug use: Not Currently Types: Marijuana Current Outpatient Medications Medication Sig omeprazole (PRILOSEC) 20 mg capsule Take 20 mg by mouth once daily. ondansetron orally disintegrating (ZOFRAN ODT) 4 mg disintegrating tablet Take 1 tablet by mouth every 6 hours as needed for nausea/vomiting. vit 83-aaqp-izoxe-dha (PRENATE MINI, FERR ASP GLYCIN,) 18-1-350 mg cap Take 1 Dose by mouth once daily. valACYclovir (VALTREX) 1 gram Take 1 tablet by mouth once daily. No current facility-administered medications for this visit. Allergies As of Date: 01/16/2023 Allergen Noted Reaction ADHESIVE TAPE (ROSINS) 02/04/2014 Rash LATEX Rash Fully Assessed 01/16/2023 REVIEW OF SYSTEMS Allergies and current medication updated:Yes EXAM: BP 98/60 Wt 103 lb (46.7kg) LMP 12/08/2022 GENERAL: pleasant, female in no apparent distress CHEST: Normal inspiratory effort NEURO: alert and oriented x3,exam grossly non-focal ASSESSMENT/PLAN: 1. Missed menses - ICD9: 626.4, ICD10: N92.6 - HCG QUAL UR B/O - negative - HCG QUANTITATIVE if menses does not start in 4-7 days. - continue PNVFA Will notify of results. Follow- up as needed. Pricila Vergara APRN.CNP I spent a total of 20 minutes on the date of the service which included preparing to see the patient, [id number] patient care, completing clinical documentation, obtaining and/or reviewing separately obtained history, performing a medically appropriate examination, counseling and educating the pat ient/family/caregiver, and ordering medications, tests, or procedures. documented in this encounterSelect [facility]06-28-2023 Discharge summary Author Jonathan Rush [facility] January 01, 2023 11:44pm Note Date/Time January 01, 2023 10:3 8pm [facility] Medical Records Department [address] [place] [address] Emergency Department Summary 01/01/23 MR#: [id number] Acct: [id number] Name: BARBARA GUTIERREZ Rep #:[id number] : 2000 22 From: Jonathan Rush MD PCP: Dr. Melissa Cabezas MD Status:REG ER Location: ED HPI HPI - Female History of Present Illness Chief Complaint: Flank Pain Informant: patient Pain Pain: Positive for Pelvic Pain Current Severity: Mild Maximum Severity: Mild Bleeding Issue: Positive for Vaginal bleeding Onset: Days Context: Gradual Onset Timing: Intermittent Current Severity: Spotting Maximum Severity: Spotting Associated Symptoms Associated Symptoms: Negative for Dysuria, Frequency, Urgency, Hematuria or Missed Period P: 3 Ab: 0 Narrative Narrative: 22-year-old female G2, P3 with having twins Ab0. Denies dyspnea past medical orsurgical history. Denies any prior abdominal surgeries. Since the last week she has not really felt well. Has had lower abdominal discomfort. She went to an urgent care they did a flu test which was negative. She denies any dysuria nor any hematuria. She has had some mild vaginal spotting states her last menstrual period was 3 weeks ago it was several days late and later than normal. She does not believe she is she says she has felt nauseated and tired. She denies any vomiting or diarrhea. No fever. No recent hospitalization. Prior similar symptoms: No Recent Illness/Hospitalization: No PFSH PFSH Medical History Depression GERD (gastroesophageal reflux disease) IBS (irritable bowel syndrome) Home Medications Prilosec 1 tab PO DAILY Check with primary doctor 06/26/19 [History Last Taken 05/01/21 06:30] valacyclovir 1 gram tablet (Valtrex) 1,000 mg PO DAILY hsv 11/11/20 [History Last Taken 05/01/21 06:30] gdwiylvb-jby-Ce-FA 1 mg tablet 1 tab PO DAILY 03/07/21 [History Last Taken 05/01/21 06:30] Phenergan 4 mg PO Q4H PRN PRN n/v 05/02/21 [History Last Taken Unknown] progesterone micronized 05/02/21 [History Last Taken 05/01/21 06:30] sulfamethoxazole 800 mg-trimethoprim 160 mg tablet (Bactrim DS) 1 tab PO BID 5 days #10 tabs 01/01/23 [Rx Last Taken Unknown] Allergy/AdvReac Type Severity Reaction Status Date / Time Latex, Natural Rubber AdvReac Rash Verified 01/01/23 22:23 Social History Smoking Status: Current some day smoker tobacco type: cigarettes ROS ROS ED ROS Narrative Nausea. Fatigue. Suprapubic discomfort. Spotting. Review of Systems ROS Unobtainable: Denies due to encephalopathy Constitutional Constitutional ED: Denies chills or fever(s) Eyes Eyes: Denies blurry vision ENT ENT ED: Denies ear pain Cardiovascular Cardiovascular: Denies chest pain Respiratory/Chest Respiratory/Chest: Denies cough Gastrointestinal Gastrointestinal: Reports abdominal pain and nausea; Denies constipation, diarrhea, melena or vomiting Genitourinary Genitourinary ED: Denies dysuria or hematuria Musculoskeletal Musculoskeletal: Denies arthralgias or myalgias Integumentary Denies abscess Neurologic Neurologic: Denies headache(s) Psychiatric Psychiatric: Denies anxiety Endocrine Endocrinology: Denies heat intolerance Hematologic/Lymphatic Hematologic/Lymphatic: Denies easy bleeding Allergic/Immunologic Allergic/Immunologic ED: Denies mouth swelling or tongue swelling EXAM Physical Exam Narrative Exam Narrative: Well-appearing 22-year-old female no acute distress. Vital signs are stable afebrile. She does not look septic or toxic. Mom present in the room. HEENT exam unremarkable. Moist mucous membranes. Neck nontender no lymphadenopathy. Lungs clear to auscultation bilaterally. Heart regular rhythm rate about 80 no murmur. Chest wall nontender. Abdomen soft. Mild suprapubic discomfort. No right upper or right lower quadrant tenderness. No signs of trauma. No distention. No hernia. Moving all 4 extremities. Nontender no edema. Back nospecific tenderness. Neurologically she is awake and alert without focal motor deficits. Moving all 4 extremities. Normal motor strength. Const Vital Signs: 01/01/23 22:20 01/01/23 22:56 Temperature 97.9 F Temperature Source Temporal Pulse Rate 81 Respiratory Rate 16 Respiratory Pattern Normal Blood Pressure 129/84 H Blood Pressure Mean 99 Pulse Ox 98 Oxygen Delivery Method Room Air Positive well nourished and well developed; Negative for obese, cachectic, contractures or unkempt General Appearance ED: well developed and NAD; Negative for unkempt, cachectic, contractures or pallor Nutritional Appearance: Negative for cachectic or obese HEENT Reports moist mucous membranes Negative for trauma or tenderness Eyes PERRL and EOMs intact bilaterally General Eye ED: Negative for pale conjunctiva or scleral icterus Neck no lymphadenopathy, supple and no JVD General: Negative for other Thyroid: Negative for tender Lymph Lymphatic: Negative for other Chest Wall inspection of chest normal and palpation of chest normal Chest: Negative for other Resp normal respiratory effort and clear to auscultation bilaterally Effort and Inspection: Negative for pain with movement Auscultation: Negative for rales, rhonchi or wheezes Cardio regular rate, regular rhythm, S1 normal heart sound, no murmurs and no JVD GI normal to inspection, nondistended, normoactive bowel sounds, soft to palpation,non-tender, non-distended and no masses Auscultation: normoactive bowel sounds Palpation: Negative for tender, guarding or rigid Back/Spine no CVA tenderness General Back: Negative for CVA tenderness Cervical Spine: Negative for cervical spine tenderness Thoracic Spine / Upper Back: Negative for thoracic spinal tenderness Lumbar Spine / Lower Back: Negative for lumbar spinal tenderness Extremity normal to inspection and full ROM General Extremety ED: Negative for edema or tenderness General Extremity: Negative for edema Neuro oriented x3, CN's II-XII intact bilaterally and no sensory deficits noted Sensorium / Orientation: alert; Negative for oriented to person, oriented to place or oriented to time Motor Exam: strength 5/5 throughout; Negative for general weakness or strength abnormal Psych mental status grossly normal Appearance: Negative for unkempt Attitude: No agitated Speech: No other Mood & Affect: Negative for depressed, anxious or tearful Skin no rashes or lesions noted and no wounds General Skin Exam: Negative for jaundice or pallor Rashes: No rashes noted Trauma: Negative for other MDM MDM MDM Narrative Medical decision making narrative: Chest 22-year-old female that has had vertigo is gone. Chest discomfort suprapubic abdominal discomfort, spotting and irregular last menstrual period about 3 weeks ago. Stretching out causes complaining and nausea and fatigue. Screening labs being obtained. Urinalysis. Serum . Repeat exam patient is doing well at 11:41 PM. She will be discharged home treated as UTI. She has had UTIs in the past. She has no antibiotic allergies. She be placed on Bactrim p.o. 1 twice daily for 5 days 10 no refill. First dose given in the ER. History & Record Review Discussion w/independent historian: Patient and Family Lab Data Attestation: I reviewed the patient's lab results. Lab results narrative: CBC. White count 9.5. H&H 13 and 39. Platelets 245. Serum test negative. Chemistries unremarkable. Liver enzymes normal. Potassium 3.3. Urine also is consistent with UTI. No nitrates. Rare bacteria. 25-50 white cells. Labs: Laboratory Results - last 24 hr 01/01/23 01/01/23 22:40 22:50 WBC 11.5 H RBC 4.41 Hgb 13.4 Hct 39.6 MCV 89.8 MCH 30.4 MCHC 33.8 RDW Std Deviation 43.3 RDW Coeff of Aida 13.1 Plt Count 245 MPV 10.5 Immature Gran % (Auto) 1.000 H Neut % (Auto) 65.6 Lymph % (Auto) 28.3 [place] % (Auto) 4.5 Eos % (Auto) 0.3 Baso % (Auto) 0.3 Absolute Neuts (auto) 7.5 Absolute Lymphs (auto) 3.24 Nucleated RBC % 0 Sodium 139 Potassium 3.3 L Chloride 107 Carbon Dioxide 27.0 Anion Gap 5 BUN 9 Creatinine 0.72 Estim Creat Clear Calc 96.02 Est GFR (MDRD) Af Amer 133 Est GFR (MDRD) Non-Af 110 BUN/Creatinine Ratio 12.6 Glucose 87 Calcium 8.9 Total Bilirubin 0.30 AST 8 L ALT 13 Alkaline Phosphatase 42 L Total Protein 7.2 Albumin 4.1 Globulin 3.1 Albumin/Globulin Ratio 1.3 Serum , Qual NEGATIVE Urine Color Yellow Urine Clarity Sl. Cloudy Urine pH 6.5 Ur Specific [place] 1.015 Urine Protein 30 H Urine Glucose (UA) Normal Urine Ketones Negative Urine Occult Blood 10 H Urine Nitrite Negative Urine Bilirubin Negative Urine Urobilinogen Normal Ur Leukocyte Esterase 100 H Urine RBC 0-5 SEEN Urine WBC 25-50 SEEN Ur Squamous Epith Cells 0-5 SEEN Urine Bacteria RARE Urine Mucus 0 SEEN Discharge Plan Triage Chief Complaint: Flank Pain ED Provider: Jonathan Rush Dx/Rx/DC Orders Clinical Impression: UTI (urinary tract infection) Instructions: Urinary Tract Infections in Women Prescriptions: New sulfamethoxazole-trimethoprim [Bactrim DS] 800-160 mg tablet 1 tab PO BID 5 Days Qty: 10 0RF No Action Prilosec 1 tab PO DAILY valacyclovir [Valtrex] 1 gram tablet 1,000 mg PO DAILY Patient Comments: Take 1 tablet by mouth once daily. After completing 3 day episodic course. 1 mg Tablet 1 tab PO DAILY Phenergan 4 mg PO Q4H PRN PRN (Reason: n/v) progesterone micronized Primary Care Provider: Melissa Cabezas Referrals: Melissa Cabezas MD [Primary Care Provider] - 3-5 Days if not improving Activity Restrictions/Additional Instructions: Plenty of fluids and rest. Tylenol and Motrin for pain. The antibiotic Bactrim 1 pill twice a day for the next 5 days starting tomorrow. You have a urinary tract infection. Your other labs were unremarkable. Your test was negative. Follow-up with your doctor if not improving. Return if worse. Disposition Disposition: Home, Self Care What to do if you have Problems For any increased pain, shortness of breath, bleeding, nausea or vomiting, chestpain, or any unexpected problems, contact your Primary Care Provider. Call [facility] ([phone]) or report to the closest Emergency Room. Call 911 if necessary. 01/01/23 2344 <Electronically signed by Jonathan Rush MD> Cosigner Signature (if applicable): CC: Dr. Melissa Cabezas MD ~ Signed [facility] Work Phone: [phone] 323-859206-22-2023 Miscellaneous Notes* Telephone Encounter - Rufina Barron LPN - 12/26/2022 12:55 PM EDT Still unable to reach patient but she did review her negative results on my chart yesterday at 5:13.Rufina Barron LPN * Telephone Encounter - Angy Richmond MA - 12/26/2022 7:06 AM EDT Attempted to call pt, voicemail is full will try again later. Angy Richmond MA * Telephone Encounter - CRESCENCIO Viveros - 12/26/2022 7:04 AM EDT Negative covid and flu [facility] History of Present illness Narrative* Nilda Castellanos APRN.WELDING MACHINE OPERATOR FRICTION - 12/25/2022 4:56 PM EDT This note was created using NoteWriter. Subjective Barbara Gutierrez is a 22 year old adult. 22 year old female with PMH anemia, and acid reflux presents for complaints of illness. Acute onset last night N/V/D X 3 to 4 bouts Non bloody emesis and diarrhea +body aches +fatigue +headache +fever States last dosage of Tylenol around 0900. Jimenez Endorses that she was unable to make it to work today, citing she works at [employer]. The history is provided by the patient. No english language learner teacher was used. Flu Like Symptoms This is a new problem. The current episode started yesterday. The problem occurs constantly. The problem has been unchanged. Associated symptoms include arthralgias, chills, fatigue, a fever, headaches, myalgias, nausea and vomiting. Pertinent negatives include no abdominal pain, anorexia, change in bowel habit, chest pain, coughing, numbness, rash, sore throat, swollen glands, urinary symptoms, vertigo, visual change or weakness. Nothing aggravates the symptoms. Ching Gutierrez has tried nothing for the symptoms. The treatment provided no relief. PAST MEDICAL HISTORY Diagnosis Date Anemia during in second trimester 05/18/2019 Depression GERD (gastroesophageal reflux disease) H/O seasonal allergies Herpes simplex virus (HSV) infection IBS (irritable bowel syndrome) PAST SURGICAL HISTORY Procedure Laterality Date NONE ALLERGIES Adhesive Tape (Rosins) and Latex MEDICATIONS omeprazole (PRILOSEC) 20 mg capsule Take 20 mg by mouth once daily. vit [id number] (PRENATE MINI, FERR ASP GLYCIN,) 18-1-350 mg cap Take 1 Dose by mouth once daily. valACYclovir (VALTREX) 1 gram Take 1 tablet by mouth once daily. ondansetron orally disintegrating (ZOFRAN ODT) 4 mg disintegrating tablet Take 1 tablet by mouth every 6 hours as needed for nausea/vomiting. FAMILY HISTORY Problem Relation Age of Onset Hypertension Mother other (insomnia) Mother other (fibromyalgia) Mother other (IBS) Mother Heart Attack Father Depression Sister No Known Problems Brother Diabetes Maternal Grandmother Hypertension Maternal Grandmother other ([place]'s Disease) Maternal Grandmother Cancer Maternal Grandfather Lung Hypertension Maternal Grandfather Alcohol/Drug Paternal Grandmother Alcohol/Drug Paternal Grandfather other (acid reflux) Son Social History Tobacco Use Smoking status: Former Years: 0.50 Types: Cigarettes Quit date: 01/03/2019 Years since quittin.9 Smokeless tobacco: Former Types: Chew Quit date: 01/31/2019 Vaping Use Vaping Use: current everyday user Substance Use Topics Alcohol use: Never Drug use: Not Currently Types: Marijuana Review of Systems Constitutional: Positive for chills, fatigue and fever. HENT: Negative for sore throat. Eyes: Negative for photophobia, pain, discharge, redness, itching and visual disturbance. Respiratory: Negative for apnea, cough, choking and chest tightness. Cardiovascular: Negative for chest pain, palpitations and leg swelling. Gastrointestinal: Positive for nausea and vomiting. Negative for abdominal pain, anorexia and change in bowel habit. Musculoskeletal: Positive for arthralgias and myalgias. Negative for back pain and gait problem. Skin: Negative for color change, pallor and rash. Allergic/Immunologic: Negative for environmental allergies, food allergies and immunocompromised state. Neurological: Positive for headaches. Negative for dizziness, vertigo, seizures, facial asymmetry, weakness, light-headedness and numbness. Hematological: Negative for adenopathy. Does not bruise/bleed easily. Psychiatric/Behavioral: Negative for agitation and behavioral problems. Objective BP 92/80 Pulse 120 Temp 37.4 C (99.4 F) Resp 16 Wt 46.7 kg (103 lb) LMP 08/03/2022 (ExactDate) SpO2 97% Physical Exam Vitals and nursing note reviewed. Constitutional: General: Ching Gutierrez is not in acute distress. Appearance: Normal appearance. Ching Gutierrez is not ill-appearing, toxic- appearing or diaphoretic. HENT: Head: Normocephalic and atraumatic. Right Ear: External ear normal. Left Ear: External ear normal. Nose: Nose normal. No congestion or rhinorrhea. Mouth/Throat: Mouth: Mucous membranes are moist. Pharynx: Oropharynx is clear. No oropharyngeal exudate or posterior oropharyngeal erythema. Eyes: General: Right eye: No discharge. Left eye: No discharge. Extraocular Movements: Extraocular movements intact. Conjunctiva/sclera: Conjunctivae normal. Pupils: Pupils are equal, round, and reactive to light. Cardiovascular: Rate and Rhythm: Regular rhythm. Tachycardia present. Pulses: Normal pulses. Heart sounds: Normal heart sounds. No murmur heard. No friction rub. No gallop. Comments: Apical 103 Pulmonary: Effort: Pulmonary effort is normal. No respiratory distress. Breath sounds: Normal breath sounds. No stridor. No wheezing, rhonchi or rales. Chest: Chest wall: No tenderness. Abdominal: General: Abdomen is flat. There is no distension. Palpations: Abdomen is soft. There is no mass. Tenderness: There is no abdominal tenderness. There is no guarding or rebound. Hernia: No hernia is present. Musculoskeletal: General: No swelling, tenderness, deformity or signs of injury. Normal range of motion. Cervical back: Normal range of motion and neck supple. No rigidity or tenderness. Right lower leg: No edema. Left lower leg: No edema. Lymphadenopathy: Cervical: No cervical adenopathy. Skin: General: Skin is warm and dry. Capillary Refill: Capillary refill takes less than 2 seconds. Coloration: Skin is not jaundiced or pale. Findings: No bruising, lesion or rash. Neurological: General: No focal deficit present. Mental Status: Ching Gutierrez is alert and oriented to person, place, and time. Cranial Nerves: No cranial nerve deficit. Sensory: No sensory deficit. Motor: No weakness. Coordination: Coordination normal. Gait: Gait normal. Deep Tendon Reflexes: Reflexes normal. Psychiatric: Mood and Affect: Mood normal. Behavior: Behavior normal. Thought Content: Thought content normal. Assessment and Plan ASSESSMENT/PLAN: 1. Viral illness - ICD9: 079.99, ICD10: B34.9 X 1 day - Discussed viral etiology and rationale for treatment. - Symptomatic treatment with prn analgesia - Supportive care with fluids and rest - The patient may also use OTC cough and cold meds as needed, warm salt water gargles, throat lozenges and/or OTC throat spray as needed, and nasal saline gtts and suction prn. - Follow up in 3-5 days if symptoms persist or sooner if worsening of symptoms RX Zofran Work note provided - COVID WITH FLUA+B, ROUTINE Nilda Castellanos APRN.CNP documented in this encounter[facility] History of Present illness Narrative* Yosi Payne APRN.MATTHEW - 07/05/2022 4:25 PM EST Subjective HPI Nontoxic-appearing female presents urgent care chief complaint URI-like symptoms. Patient states she has had cold-like symptoms on and off for months. Did have a new onset sore throat. Did notice some swelling in her glands. This has been present for 5 days. Has not used any OTC medications. Deniesany significant pain. No known sick contacts. Denies any fever body aches chills productive cough chest pain shortness of breath pleuritic pain hemoptysis nausea vomiting abdominal pain change in bowel or bladder habits. Past medical history prescription medication use and allergies reviewed. .Patient presents with: Cough: Head congestion x1 month ST x5 days PAST MEDICAL HISTORY Diagnosis Date Anemia during in second trimester 05/18/2019 Depression GERD (gastroesophageal reflux disease) H/O seasonal allergies Herpes simplex virus (HSV) infection IBS (irritable bowel syndrome) PAST SURGICAL HISTORY Procedure Laterality Date NONE ALLERGIES Adhesive Tape (Rosins) and Latex MEDICATIONS Hcmarzzu-An-Xpr-Fe-FA tab Take 1 tablet by mouth once daily. valACYclovir (VALTREX) 1 gram Take 1 tablet by mouth once daily. acetaminophen (TYLENOL) 325 mg tablet Take 2 tablets by mouth every 4 hours as needed for pain. omeprazole (PRILOSEC) 20 mg capsule Take 1 capsule by mouth once daily. phenazopyridine (PYRIDIUM, GERIDIUM) 200 mg tablet Take 1 tablet by mouth three times daily as needed. (Patient not taking: Reported on 03/19/2022) Norethindrone, Contraceptive, (ORTHO MICRONOR) 0.35 mg tablet Take 1 tablet by mouth once daily. (Patient not taking: Reported on 03/19/2022) Blood Pressure Monitor Monitor blood pressure twice daily (Patient not taking: Reported on 03/19/2022) FAMILY HISTORY Problem Relation Age of Onset Hypertension Mother other (insomnia) Mother other (fibromyalgia) Mother other (IBS) Mother Heart Attack Father Depression Sister No Known Problems Brother Diabetes Maternal Grandmother Hypertension Maternal Grandmother other ([place]'s Disease) Maternal Grandmother Cancer Maternal Grandfather Lung Hypertension Maternal Grandfather Alcohol/Drug Paternal Grandmother Alcohol/Drug Paternal Grandfather other (acid reflux) Son Social History Tobacco Use Smoking status: Former Years: 0.50 Types: Cigarettes Quit date: 01/03/2019 Years since quittin.5 Smokeless tobacco: Former Types: Chew Quit date: 01/31/2019 Substance Use Topics Alcohol use: Never Drug use: Not Currently Types: Marijuana BP 108/70 Pulse 119 Temp 36.6 C (97.9 F) Resp 18 Wt 46.9 kg (103 lb 6.4 oz) LMP 03/04/2022 (Exact Date) SpO2 98% Hr 94 Review of Systems Constitutional: Negative for chills, fever and malaise/fatigue. HENT: Positive for congestion and sore throat. Negative for ear discharge, ear pain and sinus pain. Eyes: Negative for blurred vision, pain, discharge and redness. Respiratory: Negative for cough, hemoptysis, sputum production, shortness of breath, wheezing and stridor. Cardiovascular: Negative for chest pain. Gastrointestinal: Negative for abdominal pain, diarrhea, nausea and vomiting. Musculoskeletal: Negative for myalgias. Skin: Negative for itching and rash. Neurological: Negative for dizziness and headaches. Objective Physical Exam Constitutional: General: She is not in acute distress. Appearance: She is not diaphoretic. HENT: Head: Normocephalic. Jaw: No trismus, tenderness, swelling or pain on movement. Nose: Congestion present. Mouth/Throat: Lips: [place]. Mouth: Mucous membranes are moist. Pharynx: Oropharynx is clear. Uvula midline. Posterior oropharyngeal erythema present. No pharyngeal swelling, oropharyngeal exudate or uvula swelling. Tonsils: No tonsillar exudate or tonsillar abscesses. Eyes: Conjunctiva/sclera: Conjunctivae normal. Pupils: Pupils are equal, round, and reactive to light. Cardiovascular: Rate and Rhythm: Normal rate and regular rhythm. Heart sounds: Normal heart sounds. Pulmonary: Effort: Pulmonary effort is normal. No tachypnea, accessory muscle usage or respiratory distress. Breath sounds: Normal breath sounds. No stridor. No wheezing, rhonchi or rales. Abdominal: General: There is no distension. Palpations: Abdomen is soft. Tenderness: There is no abdominal tenderness. There is no guarding or rebound. Musculoskeletal: Cervical back: Normal range of motion and neck supple. No rigidity or tenderness. Lymphadenopathy: Cervical: No cervical adenopathy. Skin: General: Skin is warm and dry. Neurological: Mental Status: She is alert and oriented to person, place, and time. ASSESSMENT/PLAN: 1. Pharyngitis, unspecified etiology - ICD9: 462, ICD10: J02.9 - STREP A MOLECULAR (POC) Strep test positive. Placed on amoxicillin. Patient was educated on supportive therapies. Patient will follow up with primary care provider as needed. Patient was instructed to immediately proceed to emergency room for any new, worsening, or symptoms lasting longer than anticipated. The patient's clinical presentation is otherwise unremarkable at this time. Based on exam and clinical finding, the patient is stable for discharge. Plan of care was discussed with patient. Patient verbalizes understanding and agrees to plan of care. This note was generated using Qnekt software. It may contain errors in wording, punctuation, or spelling. Yosi Payne APRN.MATTHEW documented in this encounter[facility]11-15-[facility]22 History of Present illness Narrative* Jessica Monte APRN.CNP - 05/21/2022 4:52 PM EST Subjective HPI Barbara presents today with the complaint of urinary frequency x two days. She states she has frequent uti's when she is one her menses. She denies vaginal odor or unusual discharge, she is on her cycle now, day three. Last intercourse was two days ago, she reports no hx of sti's. States she is feeling well otherwise. She is in a relationship does not use protection Blood pressure 106/62, pulse 60, temperature 36.7 C (98 F), resp. rate 16, weight 48.5 kg (107 lb),last menstrual period 03/04/2022, SpO2 99 %, currently . PAST MEDICAL HISTORY Diagnosis Date Anemia during in second trimester 05/18/2019 Depression GERD (gastroesophageal reflux disease) H/O seasonal allergies Herpes simplex virus (HSV) infection IBS (irritable bowel syndrome) PAST SURGICAL HISTORY Procedure Laterality Date NONE ALLERGIES Adhesive Tape (Rosins) and Latex MEDICATIONS Emidafqd-Vv-Wct-Fe-FA tab Take 1 tablet by mouth once daily. valACYclovir (VALTREX) 1 gram Take 1 tablet by mouth once daily. acetaminophen (TYLENOL) 325 mg tablet Take 2 tablets by mouth every 4 hours as needed for pain. omeprazole (PRILOSEC) 20 mg capsule Take 1 capsule by mouth once daily. nitrofurantoin monohydrate and macrocrystal (MACROBID) 100 mg capsule Take 1 capsule by mouth twicedaily with meals for 7 days. phenazopyridine (PYRIDIUM, GERIDIUM) 200 mg tablet Take 1 tablet by mouth three times daily as needed. (Patient not taking: Reported on 03/19/2022) Norethindrone, Contraceptive, (ORTHO MICRONOR) 0.35 mg tablet Take 1 tablet by mouth once daily. (Patient not taking: Reported on 03/19/2022) Blood Pressure Monitor Monitor blood pressure twice daily (Patient not taking: Reported on 03/19/2022) FAMILY HISTORY Problem Relation Age of Onset Hypertension Mother other (insomnia) Mother other (fibromyalgia) Mother other (IBS) Mother Heart Attack Father Depression Sister No Known Problems Brother Diabetes Maternal Grandmother Hypertension Maternal Grandmother other ([place]'s Disease) Maternal Grandmother Cancer Maternal Grandfather Lung Hypertension Maternal Grandfather Alcohol/Drug Paternal Grandmother Alcohol/Drug Paternal Grandfather other (acid reflux) Son Social History Tobacco Use Smoking status: Former Years: 0.50 Types: Cigarettes Quit date: 01/03/2019 Years since quittin.3 Smokeless tobacco: Former Types: Chew Quit date: 01/31/2019 Substance Use Topics Alcohol use: Never Drug use: Not Currently Types: Marijuana Review of Systems Genitourinary: Positive for dysuria and frequency. All other systems reviewed and are negative. Objective Physical Exam Vitals reviewed. Constitutional: Appearance: Normal appearance. Cardiovascular: Rate and Rhythm: Normal rate and regular rhythm. Pulmonary: Effort: Pulmonary effort is normal. Breath sounds: Normal breath sounds. Abdominal: General: Abdomen is flat. There is no distension. Palpations: Abdomen is soft. There is no mass. Tenderness: There is no abdominal tenderness. There is no right CVA tenderness, left CVA tenderness, guarding or rebound. Hernia: No hernia is present. Neurological: Mental Status: She is alert. ASSESSMENT/PLAN: 1. Urinary frequency - ICD9: 788.41, ICD10: R35.0 (primary diagnosis) acute - Patient education for prevention given - UA DIP, URINE (POC) - URINE CULTURE 2. Burning with urination - ICD9: 788.1, ICD10: R30.0 acute - Patient education for prevention given - UA DIP, URINE (POC) - URINE CULTURE - GC/CHLAMYDIA AMPLIF, URINE Increase fluids Macrobid 100mg bid x 7 days Jessica Monte APRN.WELDING MACHINE OPERATOR FRICTION * Jessica Monte APRN.CNP - 05/21/2022 4:50 PM EST Subjective HPI ROS Objective Physical Exam documented in this encounter[facility]08-15-[facility]22 Miscellaneous Notes* Telephone Encounter - Pricila Vergara APRN.CNP - 02/18/2022 8:28 PM EDT Please notify pt - Urine culture was positive for infection and the Macrobid she was prescribed should have been effective to cure it. Pricila Vergara APRN.CNP documented in this encounterSelect [facility]08-12-2022 Miscellaneous Notes* Telephone Encounter - Elena Rivas RN - 02/15/2022 9:10 AM EDT Patient notified. Reviewed instructions. Offered to schedule 3 month follow-up. Patient will call back to schedule at another time. Elena Rivas RN * Telephone Encounter - Pricila Vergara APRN.CNP - 02/15/2022 6:45 AM EDT Please notify Barbara : Trichomonas positive. Metronidazole prescribed. Sexual partners need treated. No alcohol during antibiotic or for 48 hours after completion of antibiotic. No intercourse for 7days after she and partner(s) complete antibiotic. If using oral contraceptives, uses backup control for the remainder of cycle. Will need re-screened in 3 months. GCC negative. Urine culture pending. Pricila Vergara APRN.CNP documented in this encounter[facility]08-[facility] History of Present illness Narrative* Pricila Vergara APRN.CNP - 02/14/2022 11:41 AM EDT Barbara Gutierrez is a 21 year old female who presents for problem visit UTI symptoms for 2 days. HPI: symptoms since yesterday - burning, frequency, urgency of urination. No blood in urine. No fever. Used to have frequent UTi's in elementary school but not anymore. Treated for chlamydia 12/2021. New partner. 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 History LMP: 12/17/2021, Having periods Age at Menarche: Age at First : Age at Menopause: Global Professional History Comments: Sexual Activity: Yes; Male Contraception: No contraception data on record PAST MEDICAL HISTORY Diagnosis Date Anemia during in second trimester 05/18/2019 Depression GERD (gastroesophageal reflux disease) H/O seasonal allergies Herpes simplex virus (HSV) infection IBS (irritable bowel syndrome) PAST SURGICAL HISTORY Procedure Laterality Date NONE FAMILY HISTORY Problem Relation Age of Onset Hypertension Mother other (insomnia) Mother other (fibromyalgia) Mother other (IBS) Mother Heart Attack Father Depression Sister No Known Problems Brother Diabetes Maternal Grandmother Hypertension Maternal Grandmother other (Russel's Disease) Maternal Grandmother Cancer Maternal Grandfather Lung Hypertension Maternal Grandfather Alcohol/Drug Paternal Grandmother Alcohol/Drug Paternal Grandfather other (acid reflux) Son Social History Tobacco Use Smoking status: Former Years: 0.50 Types: Cigarettes Quit date: 01/03/2019 Years since quittin.1 Smokeless tobacco: Former Types: Chew Quit date: 01/31/2019 Substance Use Topics Alcohol use: Never Drug use: Not Currently Types: Marijuana Current Outpatient Medications Medication Sig Mvqzycds-Kb-Vjo-Fe-FA tab Take 1 tablet by mouth once daily. valACYclovir (VALTREX) 1 gram Take 1 tablet by mouth once daily. Norethindrone, Contraceptive, (ORTHO MICRONOR) 0.35 mg tablet Take 1 tablet by mouth once daily. acetaminophen (TYLENOL) 325 mg tablet Take 2 tablets by mouth every 4 hours as needed for pain. Blood Pressure Monitor Monitor blood pressure twice daily omeprazole (PRILOSEC) 20 mg capsule Take 1 capsule by mouth once daily. No current facility-administered medications for this visit. Allergies As of Date: 02/14/2022 Allergen Noted Reaction ADHESIVE TAPE (ROSINS) 02/04/2014 Rash LATEX Rash Fully Assessed 12/28/2021 REVIEW OF SYSTEMS Abdomen: No bloating, early satiety, indigestion, or increased flatulence. No abdominal pain, nausea, vomiting, diarrhea, or constipation. Bladder: see HPI. Allergies and current medication updated:Yes EXAM: BP 110/68 Wt 103 lb (46.7kg) LMP 02/06/2022 GENERAL: pleasant, female in no apparent distress CHEST: Normal inspiratory effort ABDOMEN: soft, non-tender, no masses, and No CVAT NEURO: alert and oriented x3,exam grossly non-focal ASSESSMENT/PLAN: 1. Burning with urination - ICD9: 788.1, ICD10: R30.0 (primary diagnosis) acute - UA positive for neptali esterase, hematuria, and proteinuria - Send urine for culture - Begin treatment with Macrobid 100 mg BID for 5 days - Patient education for prevention given - UA DIP, URINE (POC) - URINE CULTURE - NITROFURANTOIN MONOHYDRATE & MACROCRYSTAL 100 MG ORAL CAP - PHENAZOPYRIDINE 200 MG TABLET 2. Screening examination for STD (sexually transmitted disease) - ICD9: V74.5, ICD10: Z11.3 - GC/CHLAMYDIA AMPLIF, URINE - T VAGINALIS AMPLIFICATION Pricila Vergara APRN.CNP Medical Decision Making: Problems: Minimal: Self-limited or minor problem Low: Acute, uncomplicated illness or injury Data: Unique test(s) ordered: 3+ Risk: Moderate: Drug management Medical Decision Making Level: 4 - Moderate documented in this encounterSelect [facility]06-28-2022 Miscellaneous Notes* Telephone Encounter - Elena Rivas RN - 01/01/2022 9:31 AM EDT Patient notified. Aware that partner(s) need treated. No intercourse for at least 7 days after bothpatient and partner(s) have been treated. Condom use recommended. Health Dept form faxed. Elena Rivas RN * Telephone Encounter - Marcia Farrell APRN.CNM - 01/01/2022 9:21 AM EDT Please notify patient of positive Chlamydia result. Rx sent for Azithromycin 1000 mg PO X 1. Partner will need treatment. Marcia Farrell APRN.CNM documented in this encounterSelect [facility]06-24-2022 History of Present illness Narrative* Marcia Farrell APRN.CNM - 12/28/2021 2:46 PM EDT Barbara Gutierrez is a 21 year old female who presents for problem visit for a herpes outbreak. HPI: Patient reports getting sick about a week ago. Was not taking Valtrex medication due to vomiting. She then felt like she had an outbreak on Friday after having intercourse. Reports feeling itching and tenderness. Also reports white to yellow/green watery discharge. Took Valtrex yesterday and today. 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 History LMP: 12/17/2021, Having periods Age at Menarche: Age at First : Age at Menopause: Global Professional History Comments: Sexual Activity: Yes; Male Contraception: No contraception data on record PAST MEDICAL HISTORY Diagnosis Date Anemia during in second trimester 05/18/2019 Depression GERD (gastroesophageal reflux disease) H/O seasonal allergies Herpes simplex virus (HSV) infection IBS (irritable bowel syndrome) PAST SURGICAL HISTORY Procedure Laterality Date NONE FAMILY HISTORY Problem Relation Age of Onset Hypertension Mother other (insomnia) Mother other (fibromyalgia) Mother other (IBS) Mother Heart Attack Father Depression Sister No Known Problems Brother Diabetes Maternal Grandmother Hypertension Maternal Grandmother other ([place]'s Disease) Maternal Grandmother Cancer Maternal Grandfather Lung Hypertension Maternal Grandfather Alcohol/Drug Paternal Grandmother Alcohol/Drug Paternal Grandfather other (acid reflux) Son Social History Tobacco Use Smoking status: Former Smoker Years: 0.50 Types: Cigarettes Quit date: 01/03/2019 Years since quittin.9 Smokeless tobacco: Former User Types: Chew Quit date: 01/31/2019 Substance Use Topics Alcohol use: Never Drug use: Not Currently Types: Marijuana Current Outpatient Medications Medication Sig Widgnwnh-Xk-Jef-Fe-FA tab Take 1 tablet by mouth once daily. valACYclovir (VALTREX) 1 gram Take 1 tablet by mouth once daily. Norethindrone, Contraceptive, (ORTHO MICRONOR) 0.35 mg tablet Take 1 tablet by mouth once daily. acetaminophen (TYLENOL) 325 mg tablet Take 2 tablets by mouth every 4 hours as needed for pain. Blood Pressure Monitor Monitor blood pressure twice daily omeprazole (PRILOSEC) 20 mg capsule Take 1 capsule by mouth once daily. No current facility-administered medications for this visit. Allergies As of Date: 12/28/2021 Allergen Noted Reaction ADHESIVE TAPE (ROSINS) 02/04/2014 Rash LATEX Rash Fully Assessed 12/28/2021 REVIEW OF SYSTEMS Abdomen: No bloating, early satiety, indigestion, or increased flatulence. No abdominal pain, nausea, vomiting, diarrhea, or constipation. + loose stool Bladder: No dysuria, gross hematuria, urinary frequency, urinary urgency, or incontinence. Breast: No breast lumps, nipple d/c, overlying skin changes, redness or skin retraction. Expanded ROS: N/A Allergies and current medication updated:Yes EXAM: BP 98/60 Wt 107 lb 12.8 oz (48.9kg) LMP 12/17/2021 GENERAL: pleasant, female in no apparent distress HEENT: Normocephalic, atraumatic, mucus membranes moist and no lesions NECK: Supple, full range of motion, no adenopathy and thyroid normal DERMATOLOGY: Normal, non-icteric and non-hirsute + for pinpoint erythematous macules BREAST: deferred CHEST: Normal inspiratory effort ABDOMEN: soft, non-tender and no masses PELVIC: external genitalia normal, normal Bartholin's glands, urethra, [place]'s glands, no cervical lesions, good vaginal support, normal appearing perineal body and perianal region. + for pinpoint erythematous macules around perineum, + for watery white discharge BIMANUAL: uterus normal size, shape and consistency, no adnexal masses and non-tender NEURO: alert and oriented x3,exam grossly non-focal EXTREMITIES: normal ASSESSMENT/PLAN: 1. Screening examination for STD (sexually transmitted disease) - ICD9: V74.5, ICD10: Z11.3 (primary diagnosis) - GC/CHLAMYDIA DNA DET 2. Folliculitis - ICD9: 704.8, ICD10: L73.9 - No active HSV outbreak - Decrease shaving to area - Continue to take Valtrex as prescribed Sharmila Jimenez RN BSN, CUSTOMER SALES DISTRIBUTOR Student Marcia Farrell APRN.CNM I spent a total of 20 minutes on the date of the service which included preparing to see the patient, [id number] patient care, completing clinical documentation, obtaining and/or reviewing separately obtained history, performing a medically appropriate examination and counseling and educating the patient/family/caregiver Medical Decision Making documented in this encounterSelect [facility]06-24-2022 Instructions* Patient Instructions* Yosi Payne APRN.CNP - 12/28/2021 1:22 PM EDT R.I.C.E. The general care of your injury includes the following: Resting, Icing, Compressing and Elevating the injured area. Remember this as "RICE." REST: Limit the use of the injured body part. ICE: By applying ice to the affected area, swelling and pain can be reduced. Place some ice cubes in a re-sealable (Ziploc) bag and add some water. Put a thin washcloth between the bag and your skin.Apply the ice bag to the area for at least 20 minutes. Do this at least 4 times per day. Using the ice for longer times and more frequently is OK. NEVER APPLY ICE DIRECTLY TO THE SKIN. COMPRESS: Compression means to apply pressure around the injured area such as with a splint, cast or an samra bandage. Compression decreases swelling and improves comfort. Compression should be tight enough to relieve swelling but not so tight as to decrease circulation. Increasing pain, numbness, tingling, or change in skin color, are all signs of decreased circulation. ELEVATE: Elevate the injured part. For example, elevate your foot by placing it on a chair while sitting, or propping it up on pillows when lying down. documented in this encounterSelect [facility]06-24-2022 History of Present illness Narrative* Yosi Payne APRN.CNP - 12/28/2021 1:04 PM EDT Subjective HPI Nontoxic-appearing female presents urgent care chief complaint left knee and ankle injury. Durationof symptoms 3 days. Associated symptoms left ankle swelling left knee pain. Does have bruising on left knee. States 3 days ago she tripped and fell down approximately 3 stairs. Landed on her knee. States ankle was inverted. Denies any other injuries. No head no neck no back pain. No LOC. Presents today for evaluation. States she did fracture her left ankle 3 to 4 years ago. States pain is 6-7 outof 10 if she bears weight. States walking is challenging. Denies any numbness no new tingling. Pastmedical history prescription medication use allergies reviewed. Denies chance of is not breast-feeding. .Patient presents with: Ankle Injury: L ankle and foot pain, fell down stairs x3 days Knee Pain: L knee pain, as above PAST MEDICAL HISTORY Diagnosis Date Anemia during in second trimester 05/18/2019 Depression GERD (gastroesophageal reflux disease) H/O seasonal allergies Herpes simplex virus (HSV) infection IBS (irritable bowel syndrome) PAST SURGICAL HISTORY Procedure Laterality Date NONE ALLERGIES Adhesive Tape (Rosins) and Latex MEDICATIONS Chwperkf-Sj-Xcf-Fe-FA tab Take 1 tablet by mouth once daily. valACYclovir (VALTREX) 1 gram Take 1 tablet by mouth once daily. Norethindrone, Contraceptive, (ORTHO MICRONOR) 0.35 mg tablet Take 1 tablet by mouth once daily. acetaminophen (TYLENOL) 325 mg tablet Take 2 tablets by mouth every 4 hours as needed for pain. Blood Pressure Monitor Monitor blood pressure twice daily omeprazole (PRILOSEC) 20 mg capsule Take 1 capsule by mouth once daily. FAMILY HISTORY Problem Relation Age of Onset Hypertension Mother other (insomnia) Mother other (fibromyalgia) Mother other (IBS) Mother Heart Attack Father Depression Sister No Known Problems Brother Diabetes Maternal Grandmother Hypertension Maternal Grandmother other (Russel's Disease) Maternal Grandmother Cancer Maternal Grandfather Lung Hypertension Maternal Grandfather Alcohol/Drug Paternal Grandmother Alcohol/Drug Paternal Grandfather other (acid reflux) Son Social History Tobacco Use Smoking status: Former Smoker Years: 0.50 Types: Cigarettes Quit date: 01/03/2019 Years since quittin.9 Smokeless tobacco: Former User Types: Chew Quit date: 01/31/2019 Substance Use Topics Alcohol use: Never Drug use: Not Currently Types: Marijuana BP 110/82 Pulse 106 Temp 36.4 C (97.6 F) Resp 20 Wt 48.1 kg (106 lb) LMP 07/12/2021 SpO2 97% Review of Systems Constitutional: Negative for chills, fever and malaise/fatigue. HENT: Negative for congestion, ear discharge, ear pain, sinus pain and sore throat. Eyes: Negative for blurred vision, pain, discharge and redness. Respiratory: Negative for cough, hemoptysis, sputum production, shortness of breath, wheezing and stridor. Cardiovascular: Negative for chest pain. Gastrointestinal: Negative for abdominal pain, diarrhea, nausea and vomiting. Musculoskeletal: Positive for falls and joint pain. Negative for back pain, myalgias and neck pain. Skin: Negative for itching and rash. Neurological: Negative for dizziness and headaches. Objective Physical Exam Constitutional: General: She is not in acute distress. Appearance: She is not diaphoretic. HENT: Head: Normocephalic. Mouth/Throat: Mouth: Mucous membranes are moist. Pharynx: Oropharynx is clear. No oropharyngeal exudate or posterior oropharyngeal erythema. Eyes: Conjunctiva/sclera: Conjunctivae normal. Pupils: Pupils are equal, round, and reactive to light. Cardiovascular: Rate and Rhythm: Normal rate and regular rhythm. Heart sounds: Normal heart sounds. Pulmonary: Effort: Pulmonary effort is normal. No tachypnea, accessory muscle usage or respiratory distress. Breath sounds: Normal breath sounds. No stridor. No wheezing, rhonchi or rales. Abdominal: Palpations: Abdomen is soft. Tenderness: There is no abdominal tenderness. Musculoskeletal: Cervical back: Normal range of motion and neck supple. No swelling, deformity, erythema, signs of trauma, rigidity or tenderness. Normal range of motion. Thoracic back: No swelling, edema, deformity, signs of trauma, tenderness or bony tenderness. Normal range of motion. Lumbar back: No swelling, edema, deformity, signs of trauma, tenderness or bony tenderness. Normal range of motion. Left hip: Normal. Left upper leg: Normal. Left knee: Effusion, erythema, ecchymosis, bony tenderness and crepitus present. No swelling or deformity. Normal range of motion. Tenderness present. No medial joint line tenderness. Left lower leg: Normal. Left ankle: Swelling and ecchymosis present. No deformity. No tenderness. Normal range of motion. Normal pulse. Left Achilles Tendon: Normal. Left foot: Normal. Lymphadenopathy: Cervical: No cervical adenopathy. Skin: General: Skin is warm and dry. Neurological: Mental Status: She is alert and oriented to person, place, and time. ASSESSMENT/PLAN: 1. Acute pain of left knee - ICD9: 719.46, ICD10: M25.562 (primary diagnosis) - XR KNEE GENERAL 4V AP BOTH/PA BOTH/LAT/MERC LEFT 2. Injury of left ankle, initial encounter - ICD9: 959.7, ICD10: S99.912A - XR ANKLE GENERAL 3V AP/LAT/OBL LEFT No deformities noted on x-ray. Conservative therapy will be initiated. Follow-up with PCP 3 to 5 days symptoms are not improving. Patient was educated on supportive therapies. Patient was instructed to immediately proceed to emergency room for any new, worsening, or symptoms lasting longer than anticipated. The patient's clinical presentation is otherwise unremarkable at this time. Based on exam and clinical finding, the patient is stable for discharge. Plan of care was discussed with patient. Patient verbalizes understanding and agrees to plan of care. This note was generated using [employer]ne[employer] software. It may contain errors in wording, punctuation, or spelling. Yosi Payne APRN.MATTHEW documented in this encounterSelect Medical [facility]06-24-2022 History of Present illness Narrative* Erik Berry RT(R) - 12/28/2021 12:50 PM EDT Radiology Service Progress Note PATIENT NAME: Barbara Gutierrez DATE OF SERVICE: December 28, 2021 TIME: 12:50 PM PATIENT IDENTITY VERIFICATION COMPLETED USING TWO (2) IDENTIFIERS: Name and Date of confirmedby patient verbally. FALL SCREENING: Has the patient had 2 falls in the last year or 1 fall with injury or currently using an Ambulatory Assistive Device (Walker, Cane, Wheelchair, Crutches, etc.)? No PATIENT GENDER DATA: Female. status: : No status: NO. PATIENT RELEVANT IMPLANT DATA REVIEWED: Not Applicable RADIOLOGY DEPARTMENT: General X-ray: Exam(s) Completed: Lower Extremity X- Ray(s): Knee, AP / Lat / Tunne / Merchant Left and Wt. Bearing and Ankle, Left and Wt. Bearing PERIPHERAL IV DATA: Not applicable SIGNED BY: RT Marycarmen(R) December 28, 2021 1:02 PM documented in this encounterSelect [facility]06-08-2022 Miscellaneous Notes* Telephone Encounter - Michelle Vergara LPN - 12/12/2021 11:09 AM EDT Patient called requesting a refill of Valtrex that she takes daily and vitamin. Patient does not need refill until Friday documented in this encounterSelect [facility]11-03-2021 NoteHNO ID: [id number] Author: Elena Chung APRN.WELDING MACHINE OPERATOR [employer]CTION Service: Obstetrics Author Type: Nurse Practitioner Type: Progress Notes Filed: 05/09/2021 8:18 AM Note Text: OBSTETRICS PROGRESS NOTE SERVICE DATE: May 09, 2021 SERVICE TIME: 7:57 AM ASSESSMENT: 20 year old female who is Day #1 status post Matt Girl A Barbara Feliciano [[id number]] Vaginal, Spontaneous delivery with female . Matt, Boy B Barbara Feliciano [[id number]] Vaginal, Spontaneous delivery with male . RH+ Hgb 12.1 Babies in NICU - SW consulted- Pumping for babies GHTN Denies headache, vision changes, RUQ pain, edema BP mild range with intermittent normotensive VS Q 4 hr IANDO Q 8 hr BP cuff kit ordered for home BP monitoring Patient instructed to monitor BP twice daily at home after discharge BP parameters and concerning s/s reviewed with patient verbalizing understanding Patient advised to schedule 3 day follow up appointment for BP check with OB Declined covid vaccine Placental abruption Manual extraction, ancef 2 gm given-bleeding stable without evidence of PPH Hx PTD @ 28w6d, on Progesterone-DMZ 03/15-03/17, rescue BMZ 05/02-05/03, MgSO4 received x 12hr 03/15 H/o Anxiety/Depression Flat affect-Mood stable-no meds-SW consulted-reviewed s/s of PPD pt verbalized understanding H/o HSV No current symptoms-on prophylactic suppression-neg SSE on admission to PLAN: Routine care. Encourage ambulation and IS usage. Advance diet. Encourage patient to use pain meds. . Discharge instructions given to patient regarding pelvic rest, bathing, stairs, walking, lifting, driving, and follow-up. Patient expresses understanding. Plan of care discussed with: Provider, RN, Patient. Anticipate discharge day: PPD #2 SUBJECTIVE: Patient has no current complaints. Tolerating PO intake. Urinating without difficulty. Passing flatus. Pain well controlled with current regimen. Lochia decreasing. Ambulating without difficulty. OBJECTIVE: PHYSICAL EXAM: Heart: RR, S1, S2 Lungs: clear to auscultation Abdomen: Soft Appropriately tender to palpation Bowel sounds present Fundus firm below umbilicus Non-distended Extremities: No calf tenderness and Edema equal bilaterally LAST VITALS: Pulse BP Resp O2 Sat Temp Pain 85 142/93 16 98 % 36.9 ?C (98.4 ?F) 0 Avg Min Max Vitals (last 12 hours) Flowsheet Row Name Average Min Max BP: Systolic 122.95 83 157 BP: Diastolic 75.73 (!) 48 104 Temp 37 ?C (98.67 ?F) 36.9 ?C (98.4 ?F) 37.2 ?C (99 ?F) Pulse 96.53 73 (!) 130 Resp 17.8 16 18 SpO2 97.42 % 95 % 100 % HT/WT/BMI: Height Weight BMI 167.6 cm (5' 6") 58.1 kg (128 lb) 20.66 LABS ABO/RH: 05/08/2021: O POSITIVE RUBELLA: 12/20/2020: 3.17 Index Value HANDH: Hematocrit (%) Date Value 05/07/2021 35.7 05/02/2021 31.1 Hemoglobin (g/dL) Date Value 05/07/2021 12.1 05/02/2021 10.4 Diagnostic tests reviewed for today's visit: Most recent labs SIGNATURE: Elena Chung APRN.CNP PATIENT NAME: Barbara Gutierrez DATE: May 09, 2021 TIME: 7:57 [facility]11-03-2021 NoteHNO ID: [id number] Author: Carmen Rodas MD Service: Obstetrics Author Type: Resident Type: Progress Notes Filed: 05/08/2021 10:31 PM Note Text: OBSTETRICS INTRAPARTUM PROGRESS NOTE SERVICE DATE: May 08, 2021 SERVICE TIME: 10:28 PM Subjective Patient with no complaints. Comfortable with epidural in place. Objective Temp Min/Max Last 12 Hrs Pre Delivery: Temp Min: 36.7 ?C (98.1 ?F) Min taken time: 05/08/211745 Max: 37 ?C (98.6 ?F) Max taken time: 05/08/212130 Last Pulse/Resp/O2/Temp: Pulse Resp O2 Sat Temp 100 18 97 % 37 ?C (98.6 ?F) BP Trend (last 4 values) 05/08/21 21305/08/21 21405/08/21219905/08/212214 BP: 95/53 87/51 (!) 83/48 110/59 Pain Score Trend (last 4 values) 05/08/21 1830 05/08/21 1925 05/08/21 19405/08/212130 Pain Level: 7 2 0 0 PHYSICAL EXAM: General: WD, WN, comfortable Cervical Exam Trend (last 4 values) 05/08/21 1335 05/08/21 1839 05/08/21195805/08/212217 Dilation: 4 8 8 8 Effacement (%): 90 100 100 100 Station: -1 1 1 1 Presentation: Vertex Vertex Membranes: Membrane Status: Prelabor ROM Rupture Date: 05/01/21 Rupture Time: 2345 Amniotic Fluid Color: Clear Amniotic Fluid Amount: Small Total ROM Time: 6d 22h 43m Additional Findings: None Monitoring: Baseline: 155 bpm (05/08/212129 : Magalis Bailey RN) Baseline Rate Fetus B: 145 bpm (05/08/212129 : Magalis Bailey RN) Variability: Moderate (6-25 bpm) (05/08/212129 : Magalis Bailey RN) Variability Fetus B: Moderate (6-25 bpm) (05/08/212129 : Magalis Bailey RN) Accelerations: Present (05/08/212129 : Magalis Bailey RN) Accelerations Fetus B: Present (05/08/212129 : Magalis Bailey RN) Decelerations: Decelerations: None (05/08/212129 : Magalis Bailey RN) Decelerations Fetus B: None (05/08/212129 : Magalis Bailey RN) Contractions: Regular (05/08/212129 : Magalis Bailey RN) Frequency: 2-5 (05/08/212129 : Magalis Bailey RN) NST Interpretation: Reactive (05/04/21 1130 : Sherry Sanchez RN) FHR Category: 1 (05/08/212129 : Magalis Bailey RN) Labs: Diagnostic tests reviewed for today's visit: Most recent labs and imaging results. Assessment/Plan 20 year old EGA:32w0d. Admitted for?PPROM 05/01 at 2330, now with labor?. Dichorionic diamniotic twin .? FHR Category: Category II x2 labor - SVE 8/100/+1, remains unchanged. - Pitocin initiated at 2124, currently at 2 mU/min - Baby A: FHT Cat II in the setting of tachycardia, overall reassuring with moderate variability and accelerations. Baby B: FHT Cat II in the setting of tachycardia, intermittent late decelerations. Will treat maternal hypotension at this time. - GBS neg on 05/02 - EFW Twin A: 3.5#, Twin B: 4#; 11.4% discordance - Cephalic/Cephalic by US today. Patient consents to breech extraction as indicated. ? PPROM?since 31w0d, di-di twin -?S/p Magnesium?x 12 hrs 05/02 for neuroprotection -?Latency antibiotics ending 05/08 - S/p?rescue?BMZ?05/02-05/03,?received DMZ?03/15-03/16? -?No evidence of intra-amniotic infection or placental abruption ? Hx PTL/PTD: 28w6d Hx HSV:?No symptoms, negative SSE, has been on prophylactic valtrex Hx anxiety/depression:?No current medications Plan of care discussed with: Provider, RN, Patient. SIGNATURE: Carmen Rodas MD PATIENT NAME: Barbara Gutierrez DATE: May 08, 2021 TIME: 10:28 [facility]11-02-2021 NoteHNO ID: [id number] Author: Carmen Rodas MD Service: Obstetrics Author Type: Resident Type: Progress Notes Filed: 05/08/2021 8:36 PM Note Text: OBSTETRICS INTRAPARTUM PROGRESS NOTE SERVICE DATE: May 08, 2021 SERVICE TIME: 8:04 PM Subjective Patient with no complaints. Comfortable with epidural in place. Objective Temp Min/Max Last 12 Hrs Pre Delivery: Temp Min: 36.7 ?C (98.1 ?F) Min taken time: 05/08/21 1746 Max: 37 ?C (98.6 ?F) Max taken time: 05/08/21 1203 Last Pulse/Resp/O2/Temp: Pulse Resp O2 Sat Temp 103 18 100 % 36.7 ?C (98.1 ?F) BP Trend (last 4 values) 05/08/21 19305/08/21193405/08/21194005/08/211945 BP: 105/58 95/51 117/58 104/64 Pain Score Trend (last 4 values) 05/08/21 1734 05/08/21 18305/08/21 19205/08/211940 Pain Level: 5 7 2 0 PHYSICAL EXAM: General: WD, WN, comfortable Cervical Exam Trend (last 4 values) 05/08/21 1017 05/08/21 1335 05/08/21 18305/08/211958 Dilation: 4 4 8 8 Effacement (%): 90 90 100 100 Station: 1 -1 1 1 Presentation: Vertex Vertex Vertex Membranes: Membrane Status: Prelabor ROM Rupture Date: 05/01/21 Rupture Time: 2345 Amniotic Fluid Color: Clear Amniotic Fluid Amount: Small Total ROM Time: 6d 20h 19m Additional Findings: None Monitoring: Baseline: 150 bpm (05/08/211929 : Magalis Bailey RN) Baseline Rate Fetus B: 135 bpm (135-140) (05/08/211929 : Magalis Bailey RN) Variability: Moderate (6-25 bpm) (05/08/211929 : Magalis Bailey RN) Variability Fetus B: Moderate (6-25 bpm) (05/08/211929 : Magalis Bailey RN) Accelerations: Present (05/08/211929 : Magalis Bailey RN) Accelerations Fetus B: Present (05/08/211929 : Magalis Bailey RN) Decelerations: Decelerations: None (05/08/211929 : Magalis Bailey RN) Decelerations Fetus B: None (05/08/211929 : Magalis Bailey RN) Contractions: Regular (05/08/211929 : Magalis Bailey RN) Frequency: 1.5-2.5 (05/08/211929 : Magalis Bailey RN) NST Interpretation: Reactive (05/04/21 1130 : Sherry Sanchez RN) FHR Category: 1 (05/08/211929 : Magalis Bailey RN) Labs: Diagnostic tests reviewed for today's visit: Most recent labs and imaging results. Assessment/Plan 20 year old EGA:32w0d. Admitted for PPROM 05/01 at 2330, now with labor . Dichorionic diamniotic twin . FHR Category: Category I x2 labor - SVE 8/100/+1, remains unchanged. Will augment active phase with pitocin at this time. Pelvimetry clinically assessed as adequate. - FHT Cat I, reassuring x2 - GBS neg on 05/02 - EFW Twin A: 3.5#, Twin B: 4#; 11.4% discordance - Cephalic/Cephalic by US today. Patient consents to breech extraction as indicated. ? PPROM?since 31w0d, di-di twin -?S/p Magnesium?x 12 hrs 05/02 for neuroprotection -?Latency antibiotics ending 05/08 - S/p rescue BMZ?05/02-05/03,?received DMZ?03/15-03/16? -?US 05/03?vertex/breech, FGR A (AC 6%), BPP 6/8 (-2 breathing), normal NST and UA doppler. Baby B growth wnl,?intertwin discrepancy?11.4% - UA wnl, UCx?no growth, GC/CT neg, vag path neg -?No evidence of intra-amniotic infection or placental abruption ? Hx PTL/PTD 28w6d Hx HSV: No symptoms, negative exam, has been on prophylactic Valtrex Hx anxiety/depression: No current medications Plan of care discussed with: Provider, RN, Patient. Discussed with Dr. Matt, [facility] staff. SIGNATURE: Carmen Rodas MD PATIENT NAME: Barbara Gutierrez DATE: May 08, 2021 TIME: 8:04 [facility]11-02-2021 NoteHNO ID: [id number] Author: Edwar Shaw DO Service: Anesthesiology Author Type: Anesthesiologist Type: Anesthesia Procedure Notes Filed: 05/08/2021 7:10 PM Note Text: ANESTHESIOLOGY PROCEDURE NOTE Epidural Block General Information Procedure Start Time/Medication Administration: 05/08/2021 6:50 PM Patient location during procedure: [facility] room Timeout Performed Pre-procedure: timeout performed Consent Obtained: Yes Patient identity confirmed: arm band, care sample steamer and patient Reason for block: labor epidural Staffing Anesthesiologist: Edwar Shaw DO FLOORHAND: Donte Odom APRN.FLOORHAND Performed by: TATIANA Preparation Sterility Preparation: hand hygiene performed prior to procedure, surgical cap used, mask used, sterile drape used during line insertion, skin prep agent completely dried prior to procedure Site Prep: Betadine Procedure Details Patient position: sitting Patient monitoring: Pulse OX and NIBP Approach: midline Injection technique: OSWALDO saline Region: lumbar Estimated Interspace: 3-4 Number of Attempts: 1 Needle and Epidural Catheter Needle type: Carlos Needle gauge: 17G Needle length: 3.5 in Needle insertion depth: 3 cm Catheter Catheter type: end hole Catheter size: 19 G Catheter at skin depth: 7 cmTest Dose Response: negative AssessmentBeginning Pain Score: 7/10 Events: tolerated well without discomfort Comments 1% lidocaine skin localization. Negative CSF, heme, paresthesias. SIGNATURE: Edwar Shaw DO PATIENT NAME: Barbara Gutierrez DATE: May 08, 2021 TIME: 6:55 PM CSN: [id number] NoteHNO ID: [id number] Author: Carmen Rodas MD Service: Obstetrics Author Type: Resident Type: Progress Notes Filed: 05/08/2021 6:58 PM Note Text: Attestation signed by Abby Matt DO at 05/08/2021 7:36 PM OB attending note Patient seen and evaluated. Discussed also with Dr. Rodas. Agree with assessment and plan as noted. RN present. EFM reviewed, Fetus A and B both Cat 1, Ctx q 2-3 min. Patient seen after epidural placed. She is now resting comfortably. We again reviewed plan for delivery. She desires vaginal delivery of vtx-vtx twins. She is agreeable to proceed with breech extraction of twin B if needed. Risks and benefits again reviewed, including head entrapment. She also understands that emergent would be performed for suspected compromise or malpresentation of twin B. Her questions were answered. She is in agreement with plan of care. Abby Matt DO [facility] OBSTETRICS INTRAPARTUM PROGRESS NOTE SERVICE DATE: May 08, 2021 SERVICE TIME: 6:52 PM Subjective Patient with no complaints. Feeling rectal pressure and increased frequency of contractions. Objective Temp Min/Max Last 12 Hrs Pre Delivery: Temp Min: 36.7 ?C (98.1 ?F) Min taken time: 05/08/216 Max: 37 ?C (98.6 ?F) Max taken time: 05/08/21 1203 Last Pulse/Resp/O2/Temp: Pulse Resp O2 Sat Temp 96 18 99 % 36.7 ?C (98.1 ?F) BP Trend (last 4 values) 05/08/21 0957 05/08/21 1203 05/08/21 1417 05/08/21 1746 BP: 117/76 115/75 105/67 122/69 Pain Score Trend (last 4 values) 05/08/21 1203 05/08/21 1417 05/08/21 1541 05/08/21 1734 Pain Level: 4 5 5 5 PHYSICAL EXAM: General: WD, WN, comfortable Cervical Exam Trend (last 4 values) 05/06/21 1224 05/08/21 1017 05/08/21 1335 05/08/21 1839 Dilation: 2.5 4 4 8 Effacement (%): 90 90 100 Station: 1 -1 1 Presentation: Vertex Vertex Membranes: Membrane Status: Prelabor ROM Rupture Date: 05/01/21 Rupture Time: 2344 Amniotic Fluid Color: Clear Amniotic Fluid Amount: Small Total ROM Time: 6d 19h 7m Additional Findings: None Monitoring: Baseline: Variability: Accelerations: Decelerations: Contractions: Frequency: NST Interpretation: Reactive (05/04/21 1130 : Sherry Sanchez RN) FHR Category: Labs: Diagnostic tests reviewed for today's visit: Most recent labs and imaging results. Assessment/Plan 20 year old EGA:32w0d. Admitted for PPROM 05/01 at 2330, now with labor . Dichorionic diamniotic twin . FHR Category: Category I x2 labor - SVE 8/100/+1 - Advised epidural placement in the setting of possible breech extraction; patient amenable and will obtain at this time - FHT Cat I, reassuring x2 - GBS neg on 05/02 - EFW Twin A: 3.5#, Twin B: 4#; 11.4% discordance PPROM?since 31w0d, di-di twin -?SROM?05/01?at 2330,?clear?fluid?@?[facility] then transferred?here?with re-confirmed PPROM on arrival? -?S/p Magnesium?x 12 hrs 05/02 for neuroprotection -?Latency antibiotics ending 05/08 - S/p rescue BMZ?05/02-05/03,?received DMZ?03/15-03/16? -?US 05/03?vertex/breech, FGR A (AC 6%), BPP 6/8 (-2 breathing), normal NST and UA doppler. Baby B growth wnl,?intertwin discrepancy?11.4% - UA wnl, UCx?no growth, GC/CT neg, vag path neg -?No evidence of intra-amniotic infection or placental abruption ? Hx PTL/PTD 28w6d Hx HSV: No symptoms, negative exam, has been on prophylactic Valtrex Hx anxiety/depression: No current medications Plan of care discussed with: Provider, RN, Patient. SIGNATURE: Carmen Rodas MD PATIENT NAME: Barbara Gutierrez DATE: May 08, 2021 TIME: 6:52 [facility]11-02-2021 NoteHNO ID: [id number] Author: Cammie Flores MD Service: Obstetrics Author Type: Resident Type: Progress Notes Filed: 05/08/2021 4:55 PM Note Text: OBSTETRICS INTRAPARTUM PROGRESS NOTE SERVICE DATE: May 08, 2021 SERVICE TIME: 4:28 PM Subjective Patient with no complaints. Objective Temp Min/Max Last 12 Hrs Pre Delivery: Temp Min: 36.8 ?C (98.2 ?F) Min taken time: 05/08/21 1417 Max: 37 ?C (98.6 ?F) Max taken time: 05/08/21 1203 Last Pulse/Resp/O2/Temp: Pulse Resp O2 Sat Temp 115 16 97 % 36.8 ?C (98.2 ?F) BP Trend (last 4 values) 05/08/21 0554 05/08/21 0957 05/08/21 1203 05/08/21 1417 BP: 129/69 117/76 115/75 105/67 Pain Score Trend (last 4 values) 05/08/21 1016 05/08/21 1203 05/08/21 1417 05/08/21 1541 Pain Level: 5 4 5 5 PHYSICAL EXAM: General: WD, WN Cervical Exam Trend (last 4 values) 05/06/21 1224 05/08/21 1017 05/08/21 1335 Dilation: 2.5 4 4 Effacement (%): 90 90 Station: 1 -1 Presentation: Vertex Membranes: Membrane Status: Prelabor ROM Rupture Date: 05/01/21 Rupture Time: 2345 Amniotic Fluid Color: Clear Amniotic Fluid Amount: Small Total ROM Time: 6d 16h 43m Additional Findings: None Monitoring: Baseline: 155 bpm (05/08/21 1530 : Magalis Bailey RN) Baseline Rate Fetus B: 140 bpm (05/08/21 1530 : Magalis Bailey RN) Variability: Moderate (6-25 bpm) (05/08/21 1530 : Magalis Bailey RN) Variability Fetus B: Moderate (6-25 bpm) (05/08/21 1530 : Magalis Bailey RN) Accelerations: Present (05/08/21 1530 : Magalis Bailey RN) Accelerations Fetus B: Present (05/08/21 1530 : Magalis Bailey RN) Decelerations: Decelerations: None (05/08/21 1530 : Magalis Bailey RN) Decelerations Fetus B: None (05/08/21 1530 : Magalis Bailey RN) Contractions: Regular (05/08/21 1530 : Magalis Bailey RN) Frequency: 3-4 (05/08/21 1530 : Magalis Bailey RN) NST Interpretation: Reactive (05/04/21 1130 : Sherry Sanchez RN) FHR Category: 1 (05/08/21 1530 : Magalis Bailey RN) Labs: Diagnostic tests reviewed for today's visit: Most recent labs and imaging results. Assessment/Plan 20 year old EGA:32w0d. Admitted for PPROM 05/01 at 2330 FHR Category: Category I Patient Active Hospital Problem List: premature rupture of membranes (05/02/2021) History of herpes genitalis (11/01/2020) Dichorionic diamniotic twin in second trimester (02/13/2021) ? Continue present management ? Patient feeling increased contraction frequency, cervical exam unchanged PPROM?since 31w0d, di-di twin -?SROM?05/01?at 2330,?clear?fluid?@?[facility] then transferred?here?with re-confirmed PPROM on arrival? -?S/p Magnesium?x 12 hrs 05/02 for neuroprotection -?Latency antibiotics ending 05/08 - S/p BMZ?x 2?(05/02, 05/03)??(Received DMZ?03/15-03/16?for concern for PTL) -?US 05/03?vertex/breech, IUGR A (AC 6%) BPP 6/8 (-2 breathing), normal NST and UA doppler. Baby B growth wnl,?intertwin discrepancy?11.4% - GBS?negative - UA wnl, UCx?no growth, GC/CT neg, vag path neg - WBC with mild elevation: 12.68 -> 9.81 -> 13.27 05/07, afebrile - Dysuria since 05/07: await culture ? Hx PTL/PTD 28w6d -?Had been on progesterone supplementation - Vaginal delivery, PP 3lb2oz ? Hx HSV -?No symptoms, negative exam, has been on prophylactic Valtrex ? GERD - Omeprazole daily ? Anemia ? - H/H 10.4 05/02 -> 12.1 - PO iron -S/p venofer x1 05/07 ? Hx anxiety/depression -?No current medications ? CIN1 GBS neg EFW A 11%ile, AC 6% 1518gm, B 35%ile 1713gm No LARC Plan of care discussed with: Provider, RN, Patient. SIGNATURE: Cammie Flores MD PATIENT NAME: Barbara Gutierrez DATE: May 08, 2021 TIME: 4:28 [facility]11-02-2021 NoteHNO ID: [id number] Author: Abby Matt DO Service: Obstetrics Author Type: Physician Type: Progress Notes Filed: 05/08/2021 1:38 PM Note Text: OB attending note Patient discussed in safety rounds. Sign out received from Dr. Chandler. Plan of care reviewed. Patient is 20 year old at 32w0d, with di di twins (vtx/vtx) with PROM since 05/02. She was 2.5 cm dilated on admission visually on spec exam. Today she reported painful contractions and was 4 cm by SVE. Plan to move patient to [facility] for management. At this time, no evidence that patient has chorioamnionitis or placental abruption. Patient seen and evaluated. She is sitting in bed, resting comfortably. She does not appear to be breathing through contractions of uncomfortable with contractions. Discussed mode of delivery with the patient, with anticipated vaginal delivery of vertex twins. She understands that twin B could potentially flip to breech during delivery. We discussed options of breech extraction vs for delivery of twin b in that scenario. The patient strongly desires vaginal delivery. I reviewed with the her sizes (A with FGR 1518 g and B 1713g, 11% discordant). Reviewed that she does not have absolute contraindication for breech delivery of second twin, being >28 wk GA and EFW >1500 grams. Reviewed risk of injury, including head entrapment, and that this could result in neurological impairment or . Patient voiced understanding and provides verbal consent for breech extraction of second twin if needed. Plan to move patient to [facility]. If no evidence for chorioamnionitis or placental abruption present and labor not progressing, will not plan for augmentation at this time. status cat 1 for both twin A and B, ctx q 3 min. Care continues. Abby Matt, [facility]11-02-2021 NoteHNO ID: [id number] Author: Armida Chandler MD Service: Obstetrics Author Type: Physician Type: Progress Notes Filed: 05/08/2021 10:51 AM Note Text: MFM Attending Case discussed at safety rounds, seen at bedside with nursing, resident. Barbara is an 20 year old at 32 0/7 weeks with di di twin gestation and PPROM of twin A. She has received a full course of beta-methasone and has completed a course of "latency" antibiotics. Twin A is additionally known to have mild IUGR (overall EFW 11% with AC 6%). GBS is known negative, blood type O positive and Hg 12.1. Today, she reports contractions which are uncomfortable and have been going on since last night. She also reports her belly feels a little more tender today than previously. FHR monitoring shows contractions every 3-5 minutes, category 1 for each fetus. BP 117/76 Pulse 111 Temp 36.8 ?C (98.2 ?F) (Oral) Resp 20 Ht 167.6 cm (5' 6") Wt 58.1 kg (128 lb) LMP 09/26/2020 (Exact Date) SpO2 97% BMI 20.66 kg/m? On my exam, fundus is mildly tender but no rebound or guarding noted. Vag exam: /+1, PPROM. Clinical pelvimetry feels adequate. On my ultrasound today both babies are vertex/vertex. EFW for twin A was 1518 grams and 1713 grams for twin B (11% discordance). Plan: 1. To [facility] now, in labor. 2. With vertex/vertex presentation of twins a vaginal delivery is recommended. She is aware that twin B could re-vert to a non-vertex presentation during that delivery process. Risks for head entrapment with breech extraction discussed with Barbara, especially in setting of EFW 1700 grams and 32 week gestation. While it well within clinical guidelines to offer breech extraction in this setting, if twin B were to transition to a non-vertex If that occurred, the delivering physician would need to use judgment as to breech extraction versus advise delivery for twin B. I spent a total of 30 minutes, with more than 50% of the time spent in face to face care, counseling and co-ordinating care, on the date of the service which included preparing to see the patient, [id number] patient care, completing clinical documentation, obtaining and/or reviewing separately obtained history, performing a medically appropriate examination, counseling and educating the patient/family/caregiver, communicating with other HCPs (not separately reported) and communicating results to the patient/family/caregiver. Armida Chandler MDBristol County Tuberculosis [id number] NoteHNO ID: [id number] Author: Cammie Flores MD Service: Obstetrics Author Type: Resident Type: Progress Notes Filed: 05/08/2021 8:01 AM Note Text: OBSTETRICS ANTEPARTUM PROGRESS NOTE SERVICE DATE: 05/08/2021 SERVICE TIME: 6:03 AM Assessment AND Plan : 20 year old EGA:32w0d admitted for ?di/di twins with PPROM (05/01). ?Plan of care discussed with: Provider, RN, Patient. ? PPROM?since 31w0d -?SROM?05/01?at 2330,?clear?fluid?@?[facility] then transferred?here?with re-confirmed PPROM on arrival? - S/p SSE for contractions 05/06: visually dilated to 2-3cm, contractions resolved -?S/p Magnesium?x 12 hrs 05/02 for neuroprotection -?Latency antibiotics ending 05/08 - S/p BMZ?x 2?(05/02, 05/03)??(Received DMZ?03/15-03/16?for concern for PTL) -?US 05/03?vertex/breech, IUGR A (AC 6%) BPP 6/8 (-2 breathing), normal NST and UA doppler. Baby B growth wnl,?intertwin discrepancy?11.4% - Plan for repeat scan 05/10 - GBS negative - UA wnl, UCx?no growth, GC/CT neg, vag path neg - WBC with mild elevation: 12.68 -> 9.81 -> 13.27 05/07, afebrile - Dysuria since 05.07: UA dirty catch, await culture - Endorsing 30min irregular contractions this AM, encouraged hydration and will start monitoring ? Hx PTL/PTD 28w6d -?Had been on progesterone supplementation - Vaginal delivery, PP 3lb2oz ? Hx HSV -?No symptoms, negative exam, has been on prophylactic Valtrex ? GERD - Omeprazole daily ? Anemia ? - H/H 10.4 05/02 -> 12.1 - PO iron -S/p venofer x1 05/07 ? Hx anxiety/depression -?No current medications ? CIN1 ? FWB -?US 05/03?vertex/breech, IUGR A (AC 6%) BPP 6/8 (-2 breathing), normal NST and UA doppler. Baby B growth wnl,?intertwin discrepancy?11.4% - Daily NST - GBS?neg - BMZ x 2?05/02-05/03,?Mag x 12?hours for neuroprotection finished 05/02 ? Routine - q72 hr T+S - 1hr GTT: 111, received Tdap - Diet:?regular - Consents:?signed 03/15 - PP Contraception:?undecided - presentation (on admission):?vertex/breech - Delivery plan:?vaginal delivery at 34 weeks, method of delivery of second twin pending presentation Subjective : No current vaginal bleeding, Good movement, No shortness of breath or chest pain and No calf tenderness. Endorsing 30min q10min contractions this AM. Endorsing LOF consistent with previous. Objective : LAST VITALS: Pulse BP Resp O2 Sat Temp Pain 90 129/69 18 97 % 36.8 ?C (98.2 ?F) 0 PHYSICAL EXAM: General: In no apparent distress Cardio/Pulm: normal respiratory effort, warm and well perfused Abdomen: soft, nontender, no masses Uterus: soft, NT Extremities: no edema MONITORING/ASSESSMENT: NST with discrete interpretation : MONITORING/ASSESSMENT: Baseline: 155 bpm (05/07/21 1230 : Ayanna Thomas RN) Baseline Rate Fetus B: 145 bpm (05/07/21 1230 : Ayanna Thomas RN) Variability: Moderate (6-25 bpm) (05/07/21 1230 : Ayanna Thomas RN) Variability Fetus B: Moderate (6-25 bpm) (05/07/21 1230 : Ayanna Thomas RN) Accelerations: Present (05/07/21 1230 : Ayanna Thomas RN) Accelerations Fetus B: Present (05/07/21 1230 : Ayanna Thomas RN) Decelerations: Decelerations: None (05/07/21 1230 : Ayanna Thomas RN) Decelerations Fetus B: None (05/06/21 1122 : Rachelle Cartwright APRN.WELDING MACHINE OPERATOR FRICTION) Contractions: Irregular (05/07/21 1230 : Ayanna Thomas RN) Frequency: 1-5 (05/07/21 1230 : Ayanna Thomas RN) NST INTERPRETATION: NST Interpretation: Reactive (05/04/21 1130 : Sherry Sanchez RN) FHR Category: 1 (05/05/212011 : Elena Smith RN) LABS Diagnostic tests reviewed for today's visit: Most recent labs and imaging results. SIGNATURE: Cammie Flores MD PATIENT NAME: Barbara Gutierrez DATE: May 08, 2021 TIME: 6:03 [facility]11-01-2021 NoteHNO ID: [id number] Author: Cammie Flores MD Service: Obstetrics Author Type: Resident Type: Progress Notes Filed: 05/07/2021 6:58 AM Note Text: Attestation signed by Christian Dunn MD at 05/07/2021 9:06 AM Attending Note I evaluated the patient and personally participated in the burger components. I agree with the resident's findings and plan as documented and have discussed the case and management of the patient's care with the resident. Continue inpatient management secondary to PPROM to evaluate for chorioamnionitis, abruption, labor or tracing abnormalities. Delivery at 34 weeks. Pt desires attempt at vaginal delivery. She understands that we would not recommend second twin breech vaginal delivery secondary to larger second twin and unproven pelvis with this twin B's EFW. Weekly BPP's and dopplers secondary to twin A IUGR. Start IV iron in anticipation of greater than average risk of hemorrhage at delivery Plan of care discussed with: Provider, RN, Patient Signature: Christian Dunn MD Date: May 07, 2021 Time: 9:04 AM OBSTETRICS ANTEPARTUM PROGRESS NOTE SERVICE DATE: 05/07/2021 SERVICE TIME: 6:01 AM Assessment AND Plan : 20 year old EGA:31w6d admitted for di/di twins with PPROM (05/02). Plan of care discussed with: Provider, RN, Patient. ? PPROM?since 31w0d -?SROM?05/01?at 2330,?clear?fluid?@?[facility] then transferred?here?with re-confirmed PPROM on arrival? - S/p SSE for contractions 05/06: visually dilated to 2-3cm, contractions resolved -?S/p Magnesium?x 12 hrs 05/02 for neuroprotection -?Currently receiving latency antibiotics: Day?5 - S/p BMZ?x 2?(05/02, 05/03)??(Received DMZ?03/15-03/16?for concern for PTL) -?US 05/03?vertex/breech, IUGR A (AC 6%) BPP 6/8 (-2 breathing), normal NST and UA doppler. Baby B growth wnl,?intertwin discrepancy?11.4% - GBS negative - UA wnl, UCx?no growth, GC/CT neg, vag path neg -F/u AM CBC, UA/UCx ? Hx PTL/PTD 28w6d -?Had been on progesterone supplementation - Vaginal delivery, PP 3lb2oz ? Hx HSV -?No symptoms, negative exam, has been on prophylactic Valtrex ? GERD - Omeprazole daily ? Anemia ? - H/H ..1 on 05/02 - PO iron ? Hx anxiety/depression -?No current medications ? CIN1 ? FWB -?US 05/03?vertex/breech, IUGR A (AC 6%) BPP 6/8 (-2 breathing), normal NST and UA doppler. Baby B growth wnl,?intertwin discrepancy?11.4% - Daily NST - GBS?neg - BMZ x 2?05/02-05/03,?Mag x 12?hours for neuroprotection finished 05/02 ? Routine - q72 hr T+S - 1hr GTT: 111, received Tdap - Diet:?regular - Consents:?signed 03/15 - PP Contraception:?undecided - presentation (on admission):?vertex/breech - Delivery plan:?vaginal delivery at 34 weeks, method of delivery of second twin pending presentation Subjective : No current vaginal bleeding, Good movement, No shortness of breath or chest pain and No calf tenderness. Cramping improved overnight, now only feeling intermittently. Still leaking fluid, not changed in quality. Endorsing new dysuria. Objective : LAST VITALS: Pulse BP Resp O2 Sat Temp Pain 108 94/50 18 96 % 37 ?C (98.6 ?F) 0 PHYSICAL EXAM: General: In no apparent distress Cardio/Pulm: normal respiratory effort, warm and well perfused Abdomen: soft, nontender, no masses Uterus: soft, NT Extremities: no edema MONITORING/ASSESSMENT: NST with discrete interpretation : MONITORING/ASSESSMENT: Baseline: 150 bpm (05/06/21 1122 : Rachelle Cartwright, 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 FRICTION) Baseline Rate Fetus B: 140 bpm (05/06/212 : Rachelle Cartwright, 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 FRICTION) Variability: Moderate (6-25 bpm) (05/06/212 : Rachelle Cartwright, 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 FRICTION) Variability Fetus B: Moderate (6-25 bpm) (05/06/21 1122 : Rachelle Cartwright, 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 FRICTION) Accelerations: Present (05/06/211121 : Rachelle Cartwright, 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 FRICTION) Accelerations Fetus B: Present (05/06/211121 : Rachelle Cartwright, 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 FRICTION) Decelerations: Decelerations: None (05/06/211121 : Rachelle Cartwright, 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 FRICTION) Decelerations Fetus B: None (05/06/211121 : Rachelle Cartwright, 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 FRICTION) Contractions: Not present (05/06/211121 : Rachelle Cartwright, 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 FRICTION) Frequency: x1 (05/04/212111 : Elena Smith RN) NST INTERPRETATION: NST Interpretation: Reactive (05/04/211129 : Sherry Sanchez RN) FHR Category: 1 (05/05/212011 : Elena Smith RN) LABS Diagnostic tests reviewed for today's visit: Most recent labs and imaging results. SIGNATURE: Cammie Flores MD PATIENT NAME: Barbara Gutierrez DATE: May 07, 2021 TIME: 6:01 [facility]10-31-2021 NoteHNO ID: [id number] Author: Nancy Tucker MD Service: Obstetrics Author Type: Resident Type: Progress Notes Filed: 05/06/2021 12:42 PM Note Text: OB ANTEPARTUM PROGRESS NOTE Patient reports feeling more painful contractions this morning. Elana irregularly on tocometry. SSE with cervix 2-3 cm visually dilated. Per patient, she was told she was 3 cm dilated on arrival. Plan for LR 500 cc bolus and continued tocometry. Nancy Tucker MDBristol County Tuberculosis [id number] NoteHNO ID: [id number] Author: Rachelle Cartwright APRNTINY Service: Nursing Author Type: Nurse Practitioner Type: Procedures Filed: 05/06/2021 11:34 AM Note Text: Attestation signed by Apolonia Morales MD at 05/06/2021 11:45 AM PROVIDER INTERPRETATION: Baby A: Reactive for gestational age. Baby B: Reactive for gestational age. SIGNATURE: Apolonia Morales MD DATE: May 06, 2021 TIME: 11:45 AM OBSTETRICS NST SUMMARY SERVICE DATE: May 06, 2021 The patient is a 20 year old female, , who is at 31w5d with an ABRAHAM of 07/03/2021, by Last Menstrual Period dating method. NST OBJECTIVE FINDINGS PER NURSE: Start Time: 1050 (05/06/211121 : Rachelle Cartrwight APRN.CNP) Complete Time: 112 (05/06/211121 : Rachelle Cartwright APRN.CNP) Indications: Premature Ruptured Membranes (05/06/211121 : Rachelle Cartwright APRN.CNP) Patient Reason For: check babies and contractions (05/06/211121 : Rachelle Cartwright APRN.CNP) NST Explanation: Procedure Explained;Monitor Explained;Verbalizes Understanding (05/06/211121 : Rachelle Cartwright APRN.CNP) Acoustic Stimulator: Interventions: Other (See Comment) (none) (05/06/211121 : Rachelle Cartwright APRN.CNP) MONITORING/ASSESSMENT: Baseline: 150 bpm (05/06/211121 : Rachelle Cartwright APRN.CNP) 140 bpm (05/06/211121 : Rachelle Cartwright APRN.CNP) Variability: Moderate (6-25 bpm) (05/06/211121 : Rachelle Cartwright APRN.CNP) Moderate (6-25 bpm) (05/06/211121 : Rachelle Cartwright APRN.CNP) Accelerations: Present (05/06/211121 : Rachelle Cartwright APRN.CNP) Present (05/06/211121 : Rachelle Cartwright APRN.CNP) Decelerations: Decelerations: None (05/06/211121 : Rachelle Cartwright APRN.CNP) Decelerations Fetus B: None (05/06/211121 : Rachelle Cartwright APRN.CNP) Contractions: Not present (05/06/211121 : Rachelle Cartwright APRN.CNP) Frequency: Above information forwarded to Dr Morales (05/06/211121 : Rachelle Cartwright APRN.CNP) for final review and interpretation. SIGNATURE: Rachelle Cartwright APRN.CNP PATIENT NAME: Barbara Gutierrez DATE: May 06, 2021 TIME: 11:34 [facility]10-31-2021 NoteHNO ID: [id number] Author: Nancy Tucker MD Service: Obstetrics Author Type: Resident Type: Progress Notes Filed: 05/06/2021 7:09 AM Note Text: Attestation signed by Christian Dunn MD at 05/06/2021 9:54 AM Attending Note I evaluated the patient and personally participated in the burger components. I agree with the resident's findings and plan as documented and have discussed the case and management of the patient's care with the resident. Continue inpatient management secondary to PPROM to evaluate for chorioamnionitis, abruption, labor or tracing abnormalities. Pt desires attempt at vaginal delivery. She understands that we would not recommend second twin breech vaginal delivery secondary to larger second twin and unproven pelvis with this twin B's EFW. Weekly BPP's and dopplers secondary to twin A IUGR Plan of care discussed with: Provider, RN, Patient Signature: Christian Dunn MD Date: May 06, 2021 Time: 9:51 AM OBSTETRICS ANTEPARTUM PROGRESS NOTE SERVICE DATE: 05/06/2021 SERVICE TIME: 6:06 AM Assessment AND Plan 20 year old EGA:31w5d admitted for di/di twins with PPROM (05/02). Plan of care discussed with: Provider, RN, Patient. PPROM since w0d -?SROM?05/01?at 2330,?clear?fluid @?[facility] then transferred?here with re-confirmed PPROM on arrival -?S/p Magnesium?x 12 hrs 05/02 for neuroprotection -?Currently receiving latency antibiotics: Day?4 - S/p BMZ?x 2 (05/02, 05/03) (Received DMZ?03/15-03/16?for concern for PTL) -?US 05/03?vertex/breech, IUGR A (AC 6%) BPP 6/8 (-2 breathing), normal NST and UA doppler. Baby B growth wnl,?intertwin discrepancy?11.4% - GBS in process - UA wnl, UCx?no growth, GC/CT neg, vag path neg ? Hx PTL/PTD 28w6d -?Had been on progesterone supplementation - Vaginal delivery, PP 3lb2oz ? Hx HSV -?No symptoms, negative exam, has been on prophylactic Valtrex ? GERD - Omeprazole daily ? Anemia ? - H/H 10.4/31.1 on 05/02 - PO iron ? Hx anxiety/depression -?No current medications ? CIN1 ? FWB -?US 05/03?vertex/breech, IUGR A (AC 6%) BPP 6/8 (-2 breathing), normal NST and UA doppler. Baby B growth wnl,?intertwin discrepancy?11.4% - Daily NST - GBS?pending - BMZ x 2?05/02-05/03,?Mag x 12?hours for neuroprotection finished 05/02 ? Routine - q72 hr T+S - 1hr GTT: 111, received Tdap - Diet:?regular - Consents:?signed 03/15 - PP Contraception:?undecided - presentation (on admission):?vertex/breech - Delivery plan:?vaginal delivery at 34 weeks, method of delivery of second twin pending presentation Subjective No current vaginal bleeding, Still leaking fluid, No contractions, Good movement, No shortness of breath or chest pain and No calf tenderness Objective LAST VITALS: Pulse BP Resp O2 Sat Temp Pain 99 99/54 16 97 % 37.2 ?C (99 ?F) 0 PHYSICAL EXAM: General: WD, WN Lungs: normal WOB Abdomen: soft, nontender, gravid Uterus: soft, NT Extremities: tr edema MONITORING/ASSESSMENT: NST with discrete interpretation : MONITORING/ASSESSMENT: Baseline: 150 bpm (05/05/212011 : Elena Smith RN) Baseline Rate Fetus B: 135 bpm (05/05/212011 : Elena Smith RN) Variability: Moderate (6-25 bpm) (05/05/212011 : Elena Smith RN) Variability Fetus B: Moderate (6-25 bpm) (05/05/21 2012 : Elena Smith RN) Accelerations: Present (05/05/212011 : Elena Smith RN) Accelerations Fetus B: Present (05/05/21 2012 : Elena Smith RN) Decelerations: Decelerations: None (05/05/212011 : Elena Smith RN) Decelerations Fetus B: None (05/05/212011 : Elena Smith RN) Contractions: Not present (05/05/212011 : Elena Smith RN) Frequency: x1 (05/04/21 2112 : Elena Smith RN) NST INTERPRETATION: NST Interpretation: Reactive (05/04/21 1130 : Sherry Sanchez RN) FHR Category: 1 (05/05/212011 : Elena Smith, LIO) LABS Diagnostic tests reviewed for today's visit: Most recent labs and imaging results. SIGNATURE: Nancy Tucker MD PATIENT NAME: Barbara Gutierrez DATE: May 06, 2021 TIME: 6:06 [facility]10-30-2021 NoteHNO ID: [id number] Author: Carmen Brito MD Service: Nursing Author Type: Physician Type: Procedures Filed: 05/05/2021 3:26 PM Note Text: OBSTETRICS NST SUMMARY SERVICE DATE: May 05, 2021 The patient is a 20 year old female, , who is at 31w4d with an ABRAHAM of 07/03/2021, by Last Menstrual Period dating method. NST OBJECTIVE FINDINGS PER NURSE: Start Time: 1024 (05/05/21 1054 : Rachelle Cartwright APRN.WELDING MACHINE OPERATOR FRICTION) Complete Time: 1054 (05/05/21 1054 : Rachelle Cartwright APRN.WELDING MACHINE OPERATOR FRICTION) Indications: Premature Ruptured Membranes (05/05/21 1054 : Rachelle Cartwright APRN.WELDING MACHINE OPERATOR FRICTION) Patient Reason For: check babies (05/05/21 1054 : Rachelle Cartwright APRN.WELDING MACHINE OPERATOR FRICTION) NST Explanation: Procedure Explained;Monitor Explained;Verbalizes Understanding (05/05/21 1054 : Rachelle Cartwright APRN.WELDING MACHINE OPERATOR FRICTION) Acoustic Stimulator: Interventions: MONITORING/ASSESSMENT: Baseline: 150 bpm (05/05/21 1054 : Rachelle Cartwright APRN.WELDING MACHINE OPERATOR FRICTION) 140 bpm (05/05/21 1054 : Rachelle Cartwright APRN.WELDING MACHINE OPERATOR FRICTION) Variability: Moderate (6-25 bpm) (05/05/21 1054 : Rachelledalila Cartwright APRN.WELDING MACHINE OPERATOR FRICTION) Moderate (6-25 bpm) (05/05/21 1054 : Rachelle Cartwright 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 FRICTION) Accelerations: Present (05/05/21 1054 : Rachelle Cartwright APRN.WELDING MACHINE OPERATOR FRICTION) Present (05/05/21 1054 : Rachelledalila Cartwright 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 FRICTION) Decelerations: Decelerations: None (05/05/21 1054 : Rachelle Cartwright APRN.WELDING MACHINE OPERATOR FRICTION) Decelerations Fetus B: None (05/05/21 1054 : Rachelle Cartwright APRN.CNP) Contractions: Not present (05/05/21 1054 : Rachelle Cartwright APRN.CNP) Frequency: Above information forwarded to Dr Brito (05/05/21 1054 : Rachelle Cartwright APRN.CNP) for final review and interpretation. SIGNATURE: Rachelle Cartwright APRN.CNP PATIENT NAME: Barbara Gutierrez DATE: May 05, 2021 TIME: 11:13 AM PROVIDER INTERPRETATION: Baby A: Reactive Baby B: Reactive SIGNATURE: Carmen Brito MD DATE: May 05, 2021 TIME: 3:25 [facility]10-30-2021 NoteHNO ID: [id number] Author: Amelie Swift MD Service: Obstetrics Author Type: Resident Type: Progress Notes Filed: 05/05/2021 6:46 AM Note Text: Attestation signed by Christian Dunn MD at 05/05/2021 9:32 AM (Updated) Attending Note I evaluated the patient and personally participated in the burger components. I agree with the resident's findings and plan as documented and have discussed the case and management of the patient's care with the resident. Patient did report some mild increase in pelvic pressure without contractions. She denies any bleeding. She does report good movement. Discussed that we would like to avoid digital examination, if possible. Sterile speculum exam would be the preferred option to check for cervical change at this time. Plan of care discussed with: Provider, RN, Patient Signature: Christian Dunn MD Date: May 05, 2021 Time: 9:18 AM OBSTETRICS ANTEPARTUM PROGRESS NOTE SERVICE DATE: 05/05/2021 SERVICE TIME: 6:44 AM Assessment AND Plan 20 year old EGA:31w4d admitted for di/di twins with PPROM (05/02). ? PPROM since 31w0d -?SROM?05/01?at 2330,?clear?fluid @?[facility] then transferred?here with re-confirmed PPROM on arrival -?S/p Magnesium?x 12 hrs 05/02 for neuroprotection -?Currently receiving latency antibiotics: Day 4 - S/p BMZ?x 2 (05/02, 05/03) (Received DMZ?03/15-03/16?for concern for PTL) - US 05/03 vertex/breech, IUGR A (AC 6%) BPP 6/8 (-2 breathing), normal NST and UA doppler. Baby B growth wnl, intertwin discrepancy 11.4% - GBS in process - UA wnl, UCx no growth, GC/CT neg, vag path neg ? Hx PTL/PTD 28w6d - Had been on progesterone supplementation - Vaginal delivery, PP 3lb2oz ? Hx HSV - No symptoms, negative exam, has been on prophylactic Valtrex ? GERD - Omeprazole daily ? Anemia ? - H/H 10.4/31.1 on 05/02 - PO iron ? Hx anxiety/depression - No current medications ? CIN1 ? FWB -?US 05/03 vertex/breech, IUGR A (AC 6%) BPP 6/8 (-2 breathing), normal NST and UA doppler. Baby B growth wnl, intertwin discrepancy 11.4% - Daily NST - GBS?pending - BMZ x 2?05/02-05/03,?Mag x 12?hours for neuroprotection finished 05/02 ? Routine - q72 hr T+S - 1hr GTT: 111, received Tdap - Diet:?regular - Consents:?signed 03/15 - PP Contraception:?undecided - presentation (on admission):?vertex/breech - Delivery plan:?vaginal delivery at 34 weeks, method of delivery of second twin pending presentation Subjective : No current vaginal bleeding, Still leaking fluid, No contractions, Good movement, No shortness of breath or chest pain and No calf tenderness Objective : LAST VITALS: Pulse BP Resp O2 Sat Temp Pain 95 124/75 16 100 % 36.6 ?C (97.9 ?F) 0 PHYSICAL EXAM: General: WD, WN Heart: RR, S1, S2 Lungs: clear to auscultation Abdomen: soft, nontender Uterus: soft, NT Extremities: tr edema MONITORING/ASSESSMENT: NST with discrete interpretation : MONITORING/ASSESSMENT: Baseline: 150 bpm (05/04/212111 : Elena Smith RN) Baseline Rate Fetus B: 140 bpm (05/04/212111 : Elena Smith RN) Variability: Moderate (6-25 bpm) (05/04/212111 : Elena Smith RN) Variability Fetus B: Moderate (6-25 bpm) (05/04/212111 : Elena Smith RN) Accelerations: Present (05/04/212111 : Elena Smith RN) Accelerations Fetus B: Present (05/04/212111 : Elena Smith RN) Decelerations: Decelerations: None (05/04/212111 : Elena Smith RN) Decelerations Fetus B: None (05/04/212111 : Elena Smith RN) Contractions: Irregular (05/04/212111 : Elnea Smith RN) Frequency: x1 (05/04/212111 : Elena Smith RN) NST INTERPRETATION: NST Interpretation: Reactive (05/04/21 1130 : Sherry Sanchez RN) FHR Category: 1 (05/04/212111 : Elena Smith RN) LABS Diagnostic tests reviewed for today's visit: Most recent labs and imaging results. SIGNATURE: Amelie Swift MD PATIENT NAME: Barbara Gutierrez DATE: May 04, 2021 TIME: 8:20 [facility]10-29-2021 NoteHNO ID: [id number] Author: Sherry Sanchez RN Service: Nursing Author Type: Registered Nurse Type: Procedures Filed: 05/04/2021 12:18 PM Note Text: Attestation signed by Christian Dunn MD at 05/04/2021 1:20 PM PROVIDER INTERPRETATION: Baby A: Reactive Baby B: Reactive SIGNATURE: Christian Dunn MD DATE: May 04, 2021 TIME: 1:20 PM OBSTETRICS NST SUMMARY SERVICE DATE: May 04, 2021 The patient is a 20 year old female, , who is at 31w3d with an ABRAHAM of 07/03/2021, by Last Menstrual Period dating method. NST OBJECTIVE FINDINGS PER NURSE: Start Time: 1130 (05/04/211129 : Sherry Sanchez RN) Complete Time: 1154 (05/04/211129 : Sherry Sanchez RN) Indications: Premature Ruptured Membranes (05/04/211129 : Sherry Sanchez RN) Patient Reason For: monitor babies (05/04/211129 : Sherry Sanchez RN) NST Explanation: Procedure Explained;Monitor Explained;Verbalizes Understanding (05/04/211129 : Sherry Sanchez RN) Acoustic Stimulator: Interventions: Other (See Comment) (none) (05/04/211129 : Sherry Sanchez RN) MONITORING/ASSESSMENT: Baseline: 150 bpm (05/04/211129 : Sherry Sanchez RN) 140 bpm (05/04/211129 : Sherry Sanchez RN) Variability: Moderate (6-25 bpm) (05/04/211129 : Sherry Sanchez RN) Moderate (6-25 bpm) (05/04/211129 : Sherry Sanchez RN) Accelerations: Present (05/04/21 1130 : Sherry Sanchez RN) Present (05/04/211129 : Sherry Sanchez RN) Decelerations: Decelerations: None (05/04/21 113 : Sherry Sanchez RN) Decelerations Fetus B: None (05/04/21 113 : Sherry Sanchez RN) Contractions: Not present (05/04/211129 : Sherry Sanchez RN) Frequency: Above information forwarded to dr. dunn (05/04/211129 : Sherry Sanchez RN) for final review and interpretation. SIGNATURE: Sherry Sanchez RN PATIENT NAME: Barbara Gutierrez DATE: May 04, 2021 TIME: 12:18 [facility]10-29-2021 NoteHNO ID: [id number] Author: Cammie Flores MD Service: Obstetrics Author Type: Resident Type: Progress Notes Filed: 05/04/2021 7:08 AM Note Text: Attestation signed by Christian Dunn MD at 05/04/2021 9:48 AM Attending Note I evaluated the patient and personally participated in the burger components. I agree with the resident's findings and plan as documented and have discussed the case and management of the patient's care with the resident. Plan of care discussed with: Provider, RN, Patient Signature: Christian Dunn MD Date: May 04, 2021 Time: 9:48 AM OBSTETRICS ANTEPARTUM PROGRESS NOTE SERVICE DATE: 05/04/2021 SERVICE TIME: 0638 Assessment AND Plan : 20 year old EGA:31w3d admitted for di/di twins with PPROM (05/02). ? PPROM - SROM?05/01?at 2330?to?clear?fluid, presented to [facility] then transferred here - S/p Magnesium x 12 hrs 05/02 for neuroprotection - Confirmed PPROM on arrival - Currently receiving latency antibiotics: Day 3 - S/p BMZ x 2, received first dose at [place]. #2 05/03 @ 0244. (Received DMZ 03/15-03/16 for concern for PTL) - US 05/03 vertex/breech, IUGR A (AC 6%) BPP 6/8 (-2 breathing), normal NST and UA doppler. Baby B growth wnl, intertwin discrepancy 11.4% - Acontractile, no s/sx chorio, PTL, abruption. Intermittent tachycardia to 110-120s on 05/03, VS now wnl - GBS in process - UA wnl, UCx no growth, GC/CT neg, vag path neg ? Hx PTL/PTD 28w6d - Had been on progesterone supplementation - Vaginal delivery, PP 3lb2oz ? Hx HSV - No symptoms, negative exam, has been on prophylactic Valtrex ? GERD - Omeprazole daily ? Anemia - H/H 10.4/31.1 on 05/02 - PO iron ? Hx anxiety/depression - No current medications ? CIN1 ? FWB - US 05/03 vertex/breech, IUGR A (AC 6%) BPP 6/8 (-2 breathing), normal NST and UA doppler. Baby B growth wnl, intertwin discrepancy 11.4% - Daily NST - GBS pending - BMZ x 2 05/02-05/03, Mag x 12 hours for neuroprotection finished 05/02 ? Routine - q72 hr T+S - 1hr GTT: 111, received Tdap - Diet: regular - Consents: signed 03/15 - PP Contraception: undecided - presentation (on admission): vertex/breech - Delivery plan: vaginal delivery at 34 weeks, method of delivery of second twin pending presentation ? Patient to be discussed with MFM team. Subjective : No acute events overnight. Reports continued leakage of fluid. Denies contractions. No VB. Good FM x 2. Denies headache, vision changes, chest pain, SOB, N/V, abdominal pain, urinary changes, diarrhea, constipation, swelling. Objective : LAST VITALS: Pulse BP Resp O2 Sat Temp Pain 86 127/70 16 96 % 37 ?C (98.6 ?F) 0 PHYSICAL EXAM: General: WD, WN, sitting comfortably in chair Heart: RR, S1, S2 Lungs: normal pulmonary exam Uterus: soft, NT Extremities: no edema MONITORING/ASSESSMENT: testing reassuring - see additional documentation heart rate present and appropriate LABS Diagnostic tests reviewed for today's visit: Most recent labs and imaging results. SIGNATURE: Catalina Fall MS4/ Cammie Flores MD PATIENT NAME: Barbara Gutierrez DATE: May 04, 2021 TIME: 6:38 [facility]10-28-2021 NoteHNO ID: [id number] Author: Ayanna Thomas RN Service: Obstetrics Author Type: Registered Nurse Type: Procedures Filed: 05/03/2021 12:51 PM Note Text: Attestation signed by Christian Dunn MD at 05/03/2021 12:56 PM PROVIDER INTERPRETATION: Baby A: Reactive Baby B: Reactive SIGNATURE: Christian Dunn MD DATE: May 03, 2021 TIME: 12:56 PM OBSTETRICS NST SUMMARY SERVICE DATE: May 03, 2021 The patient is a 20 year old female, , who is at 31w2d with an ARBAHAM of 07/03/2021, by Last Menstrual Period dating method. NST OBJECTIVE FINDINGS PER NURSE: Start Time: 1123 (05/03/218 : Ayanna Thomas RN) Complete Time: 1245 (05/03/218 : Ayanna Thomas RN) Indications: Premature Ruptured Membranes (05/03/218 : Ayanna Thomas RN) Patient Reason For: check babies (05/03/218 : Ayanna Thomas RN) NST Explanation: Procedure Explained;Monitor Explained;Verbalizes Understanding (05/03/218 : Ayanna Thomas RN) Acoustic Stimulator: NA Interventions: NA MONITORING/ASSESSMENT: Baseline: 140 bpm (05/03/218 : Ayanna Thomas RN) 135 bpm (05/03/218 : Ayanna Thomas RN) Variability: Moderate (6-25 bpm) (05/03/211227 : Ayanna Thomas RN) Moderate (6-25 bpm) (05/03/218 : Ayanna Thomas RN) Accelerations: Present (05/03/211227 : Ayanna Thomas RN) Present (05/03/218 : Ayanna Thomas RN) Decelerations: Decelerations: None (05/03/218 : Ayanna Thomas RN) Decelerations Fetus B: None (05/03/218 : Ayanna Thomas RN) Contractions: Not present (05/03/218 : Ayanna Thomas RN) Frequency: Above information forwarded to Dr. Dunn (05/03/211227 : Ayanna Thomas RN) for final review and interpretation. SIGNATURE: Ayanna Thomas RN PATIENT NAME: Barbara Gutierrez DATE: May 03, 2021 TIME: 12:51 [facility]10-28-2021 NoteHNO ID: [id number] Author: Cammie Flores MD Service: Obstetrics Author Type: Resident Type: Progress Notes Filed: 05/03/2021 7:12 AM Note Text: Attestation signed by Christian Dunn MD at 05/03/2021 10:00 AM (Updated) Attending Note I evaluated the patient and personally participated in the burger components. I agree with the resident's findings and plan as documented and have discussed the case and management of the patient's care with the resident. Asymptomatic today. Will check ultrasound for growth Plan of care discussed with: Provider, RN, Patient Signature: Christian Dunn MD Date: May 03, 2021 Time: 10:00 AM OBSTETRICS ANTEPARTUM PROGRESS NOTE SERVICE DATE: 05/03/2021 SERVICE TIME: 624 Assessment AND Plan : 20 year old EGA:31w2d admitted for di/di twins with PPROM (05/02). PPROM - SROM 05/01 at 2330 to clear fluid, presented to [facility] then transferred here - S/p Magnesium x 12 hrs 05/02 for neuroprotection - Confirmed PPROM on arrival - Currently receiving latency antibiotics: Day 2 - S/p BMZ x 2, received first dose at [place]. #2 05/03 @ 0244. (Received DMZ 03/15-03/16 for concern for PTL) - US 04/11: vertex/vetex, A EFW 19%ile, B EFW 66%ile intertwin discrepancy 15.9%. Currently vertex/breech on BSUS. Plan for repeat growth - Acontractile, no s/sx chorio, PTL, abruption. Intermittent tachycardia to 110-120s, consider EKG - GBS in process - UA wnl, UCx in process, GC/CT neg, vag path neg Hx PTL/PTD 28w6d - had been on progesterone supplementation ? Hx HSV - no symptoms, negative exam, has been on prophylactic Valtrex GERD - Omeprazole daily Anemia - H/H 10.4/31.1 on 05/02 - PO iron ? Hx anxiety/depression - no current medications CIN1 FWB - US 04/11: vertex/vetex, A EFW 19%ile, B EFW 66%ile intertwin discrepancy 15.9%. - Daily NST - GBS pending - BMZ x 2 05/02-05/03, Mag x 12 hours for neuroprotection finished 05/02 Routine - q72 hr T+S - Diet: regular - Consents: signed 03/15 - PP Contraception: undecided - presentation (on admission): vertex/breech - Delivery plan: vaginal delivery at 34 weeks, method of delivery of second twin pending presentation Patient to be discussed with MFM team. Subjective : No acute events overnight. Reports scant bright red blood with wiping. Patient had two speculum examinations yesterday, the first of which caused patient to bleed. movement present, although decreased from baseline. Denies contractions. No LOF. Denies headache, vision changes, chest pain, SOB, N/V, abdominal pain, urinary changes, diarrhea, constipation, swelling. Objective : LAST VITALS: Pulse BP Resp O2 Sat Temp Pain 112 111/59 18 96 % 36.9 ?C (98.4 ?F) 0 PHYSICAL EXAM: General: WD, WN, comfortable Heart: RR, S1, S2, no casey, rub, or murmur appreciated Lungs: clear to auscultation Abdomen: soft, nontender, no masses Extremities: no edema MONITORING/ASSESSMENT: NST with discrete interpretation : MONITORING/ASSESSMENT: Baseline: 140 bpm (05/02/21 1530 : Lissa Booth RN) Baseline Rate Fetus B: 130 bpm (05/02/21 1530 : Lissa Booth RN) Variability: Moderate (6-25 bpm) (05/02/21 1530 : Lissa Booth RN) Variability Fetus B: Moderate (6-25 bpm) (05/02/21 1435 : Lissa Booth RN) Accelerations: Present (05/02/21 1530 : Lissa Booth RN) Accelerations Fetus B: Present (05/02/21 1530 : Lissa Booth RN) Decelerations: Decelerations: None (05/02/211529 : Lissa Booth RN) Decelerations Fetus B: None (05/02/211529 : Lissa Booth RN) Contractions: Irregular (05/02/211529 : Lissa Booth RN) Frequency: 2-10 (05/02/211529 : Lissa Booth RN) NST INTERPRETATION: NST Interpretation: FHR Category: 1 (05/02/211529 : Lissa Booth RN) LABS Diagnostic tests reviewed for today's visit: Most recent labs and imaging results. SIGNATURE: Catalina Fall MS4/Cammie Flores MD PATIENT NAME: Barbara Gutierrez DATE: May 03, 2021 TIME: 6:25 [facility]10-27-2021 NoteHNO ID: [id number] Author: Lissa Booth RN Service: Nursing Author Type: Registered Nurse Type: Procedures Filed: 05/02/2021 6:37 PM Note Text: Attestation signed by Christian Dunn MD at 05/03/2021 10:01 AM PROVIDER INTERPRETATION: Baby A: Category I Baby B: Category I SIGNATURE: Christian Dunn MD DATE: May 03, 2021 TIME: 10:01 AM OBSTETRICS NST SUMMARY SERVICE DATE: May 02, 2021 The patient is a 20 year old female, , who is at 31w1d with an ABRAHAM of 07/03/2021, by Last Menstrual Period dating method. NST OBJECTIVE FINDINGS PER NURSE: Start Time: 1415 (05/02/21 143 : Lissa Booth RN) Complete Time: 1445 (05/02/211434 : Lissa Booth RN) Indications: Premature Ruptured Membranes (05/02/215 : Lissa Booth RN) Patient Reason For: to monitor the babies (05/02/211434 : Lissa Booth RN) NST Explanation: Procedure Explained;Monitor Explained;Verbalizes Understanding (05/02/211434 : Lissa Booth RN) Acoustic Stimulator: Interventions: MONITORING/ASSESSMENT: Baseline: 140 bpm (05/02/211529 : Lissa Booth RN) 130 bpm (05/02/211529 : Lissa Booth RN) Variability: Moderate (6-25 bpm) (05/02/211529 : Lissa Booth RN) Moderate (6-25 bpm) (05/02/211434 : Lissa Booth RN) Accelerations: Present (05/02/211529 : Lissa Booth RN) Present (05/02/211529 : Lissa Booth RN) Decelerations: Decelerations: None (05/02/211529 : Lissa Booth RN) Decelerations Fetus B: None (05/02/211529 : Lissa Booth RN) Contractions: Irregular (05/02/211529 : Lissa Booth RN) Frequency: 2-10 (05/02/211529 : Lissa Booth RN) Above information forwarded to Dr Dunn (05/02/211434 : Lissa Booth RN) for final review and interpretation. SIGNATURE: Lissa Booth RN PATIENT NAME: Barbara Gutierrez DATE: May 02, 2021 TIME: 6:25 [facility]10-27-2021 NoteHNO ID: [id number] Author: Cammie Flores MD Service: Obstetrics Author Type: Resident Type: Progress Notes Filed: 05/02/2021 4:37 PM Note Text: OB Progress Note Patient feeling well, plan to discontinue magnesium at this time. Cat I tracing x2, denies contractions. Upon discussion, patient elects at this time for a plan for vaginal delivery. Patient understands with first twin vertex and second twin breech and significantly larger, that if the second twin does not come down vertex after delivery of the first twin then the plan would be to transition to delivery of the second twin. Patient continues to elect for vaginal delivery at this time, but will give it thought overnight and we will re-visit this once more in the AM. Cammie Flores MD May 02, 2021 4:37 [facility]10-27-2021 History of Past illness Narrative* Problem Noted Date Resolved Date premature rupture of membranes 08/12/2022 Cervical insufficiency durin g in second trimester, antepartum 03/15/2021 08/12/2022 Threatened labor, second trimester 03/1508/12/2022 Dichorionic diamniotic twin in second trimester 02/13/2021 06/03/2021 History of delivery, currently 11/01/2020 08/12/2022 Overview: 11/01/2020atient is 2 para 1 with a history of a delivery at 28 weeks. It was a precipitous delivery. I did discuss with patient Ashley. I have advised patient to go to the [facility] website and view the video and information. I also told her that if she decides to take this medication that she could come into the office for instruction. TKRN Nausea/vomiting in 11/01/202012/2022 Overview: 11/01/2020atient is complaining of nausea in . Denies any vomiting advised patient to call/come in if she is unable to keep any food or fluids down in a 24-hour period. TKRN delivery, delivered 08/06/2019 02/0 12/2022 Threatened premature labor in third trimester 08/06/2019 Overview: 06/18/19 - received BMZ at [facility] on 06/14-06/15. FFN was positive on 06/15. - Kamilla Porter MD Anemia during in second trimester 05/0708/06/2019 Overview: 05/18/19-Start iron supplementation. Repeat CBC in 4 weeks. 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 Patient is engaged to the father the baby. Father of the baby graduated 2 years ago.TKRN Quit smoking 02/04/2019 08/06/2019 Overview: 02/04/2019Pt recently quit smoking end of December. Discussed risks of smoking during and advised pt to continue not smoking.TKRN Patient request for diagnostic testing 9 08/06/2019 Overview: 11/01/2020 . Patient desires nuchal ultrasound. Considering genetic carrier screening testing.Erik Galicia RN documented as of this encounter (statuses as of 12/26/2022) [facility]10-27-2021 History of Past illness Narrative* Problem Noted Date Resolved Date premature rupture of membranes 08/12/2022 Cervical insufficiency durin g in second trimester, antepartum 03/15/2021 08/12/2022 Threatened labor, second trimester 03/1508/12/2022 Dichorionic diamniotic twin in second trimester 02/13/2021 06/03/2021 History of delivery, currently 11/01/2020 08/12/2022 Overview: 11/01/2020atient is 2 para 1 with a history of a delivery at 28 weeks. It was a precipitous delivery. I did discuss with patient Ashley. I have advised patient to go to the [facility] website and view the video and information. I also told her that if she decides to take this medication that she could come into the office for instruction. TKRN Nausea/vomiting in 11/01/202012/2022 Overview: 11/01/2020atient is complaining of nausea in . Denies any vomiting advised patient to call/come in if she is unable to keep any food or fluids down in a 24-hour period. TKRN delivery, delivered 08/06/2019 02/0 12/2022 Threatened premature labor in third trimester 08/06/2019 Overview: 06/18/19 - received BMZ at [facility] on 06/14-06/15. FFN was positive on 06/15. - Kamilla Porter MD Anemia during in second trimester 05/0708/06/2019 Overview: 05/18/19-Start iron supplementation. Repeat CBC in 4 weeks. 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 Patient is engaged to the father the baby. Father of the baby graduated 2 years ago.TKRN Quit smoking 02/04/2019 08/06/2019 Overview: 02/04/2019Pt recently quit smoking end of December. Discussed risks of smoking during and advised pt to continue not smoking.TKRN Patient request for diagnostic testing 9 08/06/2019 Overview: 11/01/2020 . Patient desires nuchal ultrasound. Considering genetic carrier screening testing.Erik Galicia RN documented as of this encounter (statuses as of 12/26/2022) [facility]10-27-2021 History of Past illness Narrative* Problem Noted Date Diagnosed Date Resolved Date premature rupture of membranes 05/02/2021 08/12/2022 Cervical insufficiency durin g in second trimester, antepartum 03/15/2021 08/12/2022 Threatened labor, second trimester 03/15/2021 08/12/2022 Dichorionic diamniotic twin in second trimester 02/13/2021 06/03/2021 History of delivery, currently 11/01/2020 08/12/2022 Overview: 1Patient is 2 para 1 with a history of a delivery at 28 weeks. It was a precipitous delivery. I did discuss with patient Ashley. I have advised patient to go to the [place] website and view the video and information. I also told her that if she decides to take this medication that she could come into the office for instruction. TKRN Nausea/vomiting in 11/01/2020 08/12/2022 Overview: 11/01/2020atient is complaining of nausea in . Denies any vomiting advised patient to call/come in if she is unable to keep any food or fluids down in a 24-hour period. TKRN delivery, delivered 08/06/2019 08/12/2022 Threatened premature labor in third trimester 06/18/2008/06/2019 Overview: 06/18/19 - received BMZ at [facility] on 06/14-06/15. FFN was positive on 06/15. - Kamilla Porter MD Anemia during in second trimester 05/18/2019 08/06/2019 Overview: 05/18/19-Start iron supplementation. Repeat CBC in 4 weeks. 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 Patient is engaged to the father the baby. Father of the baby graduated 2 years ago.TKRN Quit smoking 02/04/2019 08/06/2019 Overview: 02/04/2019Pt recently quit smoking end of December. Discussed risks of smoking during and advised pt to continue not smoking.TKRN Patient request for diagnostic testing 02/04/2019 08/06/2019 Overview: 11/01/2020 . Patient desires nuchal ultrasound. Considering genetic carrier screening testing.Erik Galicia RN documented as of this encounter (statuses as of 01/17/2023) [facility]10-27-2021 History of Past illness Narrative* Problem Noted Date Diagnosed Date Resolved Date premature rupture of membranes 05/02/2021 08/12/2022 Cervical insufficiency durin g in second trimester, antepartum 03/15/2021 08/12/2022 Threatened labor, second trimester 03/15/2021 08/12/2022 Dichorionic diamniotic twin in second trimester 02/13/2021 06/03/2021 History of delivery, currently 11/01/2020 08/12/2022 Overview: 1Patient is 2 para 1 with a history of a delivery at 28 weeks. It was a precipitous delivery. I did discuss with patient Ashley. I have advised patient to go to the [place] website and view the video and information. I also told her that if she decides to take this medication that she could come into the office for instruction. TKRN Nausea/vomiting in 11/01/2020 08/12/2022 Overview: 1Patient is complaining of nausea in . Denies any vomiting advised patient to call/come in if she is unable to keep any food or fluids down in a 24-hour period. TKRN delivery, delivered 08/06/2019 08/12/2022 Threatened premature labor in third trimester 06/18/20 19 08/06/2019 Overview: 06/18/19 - received BMZ at [facility] on 06/14-06/15. FFN was positive on 06/15. - Kamilla Porter MD Anemia during in second trimester 05/18/2019 08/06/2019 Overview: 05/18/19-Start iron supplementation. Repeat CBC in 4 weeks. 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 Patient is engaged to the father the baby. Father of the baby graduated 2 years ago.TKRN Quit smoking 02/04/2019 08/06/2019 Overview: 02/04/2019Pt recently quit smoking end of December. Discussed risks of smoking during and advised pt to continue not smoking.TKRN Patient request for diagnostic testing 02/04/2019 08/06/2019 Overview: 11/01/2020 . Patient desires nuchal ultrasound. Considering genetic carrier screening testing.Erik Galicia RN documented as of this encounter (statuses as of 01/30/2023) [facility]10-27-2021 History of Past illness Narrative* Problem Noted Date Diagnosed Date Resolved Date premature rupture of membranes 05/02/2021 08/12/2022 Cervical insufficiency durin g in second trimester, antepartum 03/15/2021 08/12/2022 Threatened labor, second trimester 03/15/2021 08/12/2022 Dichorionic diamniotic twin in second trimester 02/13/2021 06/03/2021 History of delivery, currently 11/01/2020 08/12/2022 Overview: 11/01/2020atient is 2 para 1 with a history of a delivery at 28 weeks. It was a precipitous delivery. I did discuss with patient Ashley. I have advised patient to go to the [facility] website and view the video and information. I also told her that if she decides to take this medication that she could come into the office for instruction. TKRN Nausea/vomiting in 11/01/2020 08/12/2022 Overview: 11/01/2020atient is complaining of nausea in . Denies any vomiting advised patient to call/come in if she is unable to keep any food or fluids down in a 24-hour period. TKRN delivery, delivered 08/06/2019 08/12/2022 Threatened premature labor in third trimester 06/18/20 19 08/06/2019 Overview: 06/18/19 - received BMZ at [facility] on 06/14-06/15. FFN was positive on 06/15. - Kamilla Porter MD Anemia during in second trimester 05/18/2019 08/06/2019 Overview: 05/18/19-Start iron supplementation. Repeat CBC in 4 weeks. Nilda Jean APRN.CNM High risk teen , antepartum 02/04/2019 08/12/2022 Overview: 11/01/2020 Patient is a senior at [employer]. Patient is engaged to the father the baby. Father of the baby graduated 2 years ago.TKRN Quit smoking 02/04/2019 08/06/2019 Overview: 02/04/2019Pt recently quit smoking end of December. Discussed risks of smoking during and advised pt to continue not smoking.TKRN Patient request for diagnostic testing 02/04/2019 08/06/2019 Overview: 11/01/2020 . Patient desires nuchal ultrasound. Considering genetic carrier screening testing.Erik Galicia RN documented as of this encounter (statuses as of 01/30/2023) [facility]10-27-2021 History of Past illness Narrative* Problem Noted Date Diagnosed Date Resolved Date premature rupture of membranes 05/02/2021 08/12/2022 Cervical insufficiency durin g in second trimester, antepartum 03/15/2021 08/12/2022 Threatened labor, second trimester 03/15/2021 08/12/2022 Dichorionic diamniotic twin in second trimester 02/13/2021 06/03/2021 History of delivery, currently 11/01/2020 08/12/2022 Overview: 11/01/2020atient is 2 para 1 with a history of a delivery at 28 weeks. It was a precipitous delivery. I did discuss with patient Ashley. I have advised patient to go to the [place] website and view the video and information. I also told her that if she decides to take this medication that she could come into the office for instruction. TKRN Nausea/vomiting in 11/01/2020 08/12/2022 Overview: 11/01/2020atient is complaining of nausea in . Denies any vomiting advised patient to call/come in if she is unable to keep any food or fluids down in a 24-hour period. TKRN delivery, delivered 08/06/2019 08/12/2022 Threatened premature labor in third trimester 06/18/2008/06/2019 Overview: 06/18/19 - received BMZ at [facility] on 06/14-06/15. FFN was positive on 06/15. - Kamilla Porter MD Anemia during in second trimester 05/18/2019 08/06/2019 Overview: 05/18/19-Start iron supplementation. Repeat CBC in 4 weeks. Nilda Jean APRN.CNM High risk teen , antepartum 02/04/2019 08/12/2022 Overview: 11/01/2020 Patient is a senior at [employer]. Patient is engaged to the father the baby. Father of the baby graduated 2 years ago.TKRN Quit smoking 02/04/2019 08/06/2019 Overview: 02/04/2019Pt recently quit smoking end of December. Discussed risks of smoking during and advised pt to continue not smoking.TKRN Patient request for diagnostic testing 02/04/2019 08/06/2019 Overview: 11/01/2020 . Patient desires nuchal ultrasound. Considering genetic carrier screening testing.Erik Galicia RN documented as of this encounter (statuses as of 02/03/2023) [facility]-27-2021 History of Past illness Narrative* Problem Noted Date Diagnosed Date Resolved Date premature rupture of membranes 05/02/2021 08/12/2022 Cervical insufficiency durin g in second trimester, antepartum 03/15/2021 08/12/2022 Threatened labor, second trimester 03/15/2021 08/12/2022 Dichorionic diamniotic twin in second trimester 02/13/2021 06/03/2021 History of delivery, currently 11/01/2020 08/12/2022 Overview: 11/01/2020atient is 2 para 1 with a history of a delivery at 28 weeks. It was a precipitous delivery. I did discuss with patient Ashley. I have advised patient to go to the [facility] website and view the video and information. I also told her that if she decides to take this medication that she could come into the office for instruction. TKRN Nausea/vomiting in 11/01/2020 08/12/2022 Overview: 11/01/2020atient is complaining of nausea in . Denies any vomiting advised patient to call/come in if she is unable to keep any food or fluids down in a 24-hour period. TKRN delivery, delivered 08/06/2019 08/12/2022 Threatened premature labor in third trimester 06/18/2008/06/2019 Overview: 06/18/19 - received BMZ at [facility] on 06/14-06/15. FFN was positive on 06/15. - Kamilla Porter MD Anemia during in second trimester 05/18/2019 08/06/2019 Overview: 05/18/19-Start iron supplementation. Repeat CBC in 4 weeks. 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 Patient is engaged to the father the baby. Father of the baby graduated 2 years ago.TKRN Quit smoking 02/04/2019 08/06/2019 Overview: 02/04/2019Pt recently quit smoking end of December. Discussed risks of smoking during and advised pt to continue not smoking.TKRN Patient request for diagnostic testing 02/04/2019 08/06/2019 Overview: 11/01/2020 . Patient desires nuchal ultrasound. Considering genetic carrier screening testing.Erik Galicia RN documented as of this encounter (statuses as of 02/13/2023) [facility] History of Past illness Narrative* Problem Noted Date Diagnosed Date Resolved Date premature rupture of membranes 05/02/2021 08/12/2022 Cervical insufficiency durin g in second trimester, antepartum 03/15/2021 08/12/2022 Threatened labor, second trimester 03/15/2021 08/12/2022 Dichorionic diamniotic twin in second trimester 02/13/2021 06/03/2021 History of delivery, currently 11/01/2020 08/12/2022 Overview: 1Patient is 2 para 1 with a history of a delivery at 28 weeks. It was a precipitous delivery. I did discuss with patient Ashley. I have advised patient to go to the [place] website and view the video and information. I also told her that if she decides to take this medication that she could come into the office for instruction. TKRN Nausea/vomiting in 11/01/2020 08/12/2022 Overview: 1Patient is complaining of nausea in . Denies any vomiting advised patient to call/come in if she is unable to keep any food or fluids down in a 24-hour period. TKRN delivery, delivered 08/06/2019 08/12/2022 Threatened premature labor in third trimester 06/18/20 19 08/06/2019 Overview: 06/18/19 - received BMZ at [facility] on 06/14-06/15. FFN was positive on 06/15. - Kamilla Porter MD Anemia during in second trimester 05/18/2019 08/06/2019 Overview: 05/18/19-Start iron supplementation. Repeat CBC in 4 weeks. Nilda Jean APRN.CNM High risk teen , antepartum 02/04/2019 08/12/2022 Overview: 11/01/2020 Patient is a senior at [employer]. Patient is engaged to the father the baby. Father of the baby graduated 2 years ago.TKRN Quit smoking 02/04/2019 08/06/2019 Overview: 02/04/2019Pt recently quit smoking end of December. Discussed risks of smoking during and advised pt to continue not smoking.TKRN Patient request for diagnostic testing 02/04/2019 08/06/2019 Overview: 11/01/2020 . Patient desires nuchal ultrasound. Considering genetic carrier screening testing.Erik Galiica RN documented as of this encounter (statuses as of 03/22/2023) [facility]-2021 History of Past illness Narrative* Problem Noted Date Diagnosed Date Resolved Date premature rupture of membranes 05/02/2021 08/12/2022 Cervical insufficiency durin g in second trimester, antepartum 03/15/2021 08/12/2022 Threatened labor, second trimester 03/15/2021 08/12/2022 Dichorionic diamniotic twin in second trimester 02/13/2021 06/03/2021 History of delivery, currently 11/01/2020 08/12/2022 Overview: 11/01/2020atient is 2 para 1 with a history of a delivery at 28 weeks. It was a precipitous delivery. I did discuss with patient Ashley. I have advised patient to go to the [facility] website and view the video and information. I also told her that if she decides to take this medication that she could come into the office for instruction. TKRN Nausea/vomiting in 11/01/2020 08/12/2022 Overview: 11/01/2020atient is complaining of nausea in . Denies any vomiting advised patient to call/come in if she is unable to keep any food or fluids down in a 24-hour period. TKRN delivery, delivered 08/06/2019 08/12/2022 Threatened premature labor in third trimester 06/18/20 19 08/06/2019 Overview: 06/18/19 - received BMZ at [facility] on 06/14-06/15. FFN was positive on 06/15. - Kamilla Porter MD Anemia during in second trimester 05/18/2019 08/06/2019 Overview: 05/18/19-Start iron supplementation. Repeat CBC in 4 weeks. Nilda Jean APRN.CNM High risk teen , antepartum 02/04/2019 08/12/2022 Overview: 11/01/2020 Patient is a senior at [employer]. Patient is engaged to the father the baby. Father of the baby graduated 2 years ago.TKRN Quit smoking 02/04/2019 08/06/2019 Overview: 02/04/2019Pt recently quit smoking end of December. Discussed risks of smoking during and advised pt to continue not smoking.TKRN Patient request for diagnostic testing 02/04/2019 08/06/2019 Overview: 11/01/2020 . Patient desires nuchal ultrasound. Considering genetic carrier screening testing.Erik Galicia RN documented as of this encounter (statuses as of 03/26/2023) [facility] History of Past illness Narrative* Problem Noted Date Diagnosed Date Resolved Date premature rupture of membranes 05/02/2021 08/12/2022 Cervical insufficiency durin g in second trimester, antepartum 03/15/2021 08/12/2022 Threatened labor, second trimester 03/15/2021 08/12/2022 Dichorionic diamniotic twin in second trimester 02/13/2021 06/03/2021 History of delivery, currently 11/01/2020 08/12/2022 Overview: 1Patient is 2 para 1 with a history of a delivery at 28 weeks. It was a precipitous delivery. I did discuss with patient Ashley. I have advised patient to go to the [facility] website and view the video and information. I also told her that if she decides to take this medication that she could come into the office for instruction. TKRN Nausea/vomiting in 11/01/2020 08/12/2022 Overview: 1Patient is complaining of nausea in . Denies any vomiting advised patient to call/come in if she is unable to keep any food or fluids down in a 24-hour period. TKRN delivery, delivered 08/06/2019 08/12/2022 Threatened premature labor in third trimester 06/18/20 19 08/06/2019 Overview: 06/18/19 - received BMZ at [facility] on 06/14-06/15. FFN was positive on 06/15. - Kamilla Porter MD Anemia during in second trimester 05/18/2019 08/06/2019 Overview: 05/18/19-Start iron supplementation. Repeat CBC in 4 weeks. 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 Patient is engaged to the father the baby. Father of the baby graduated 2 years ago.TKRN Quit smoking 02/04/2019 08/06/2019 Overview: 02/04/2019Pt recently quit smoking end of December. Discussed risks of smoking during and advised pt to continue not smoking.TKRN Patient request for diagnostic testing 02/04/2019 08/06/2019 Overview: 11/01/2020 . Patient desires nuchal ultrasound. Considering genetic carrier screening testing.Erik Galicia RN documented as of this encounter (statuses as of 05/12/2023) [facility] History of Past illness Narrative* Problem Noted Date Diagnosed Date Resolved Date premature rupture of membranes 05/02/2021 08/12/2022 Cervical insufficiency durin g in second trimester, antepartum 03/15/2021 08/12/2022 Threatened labor, second trimester 03/15/2021 08/12/2022 Dichorionic diamniotic twin in second trimester 02/13/2021 06/03/2021 History of delivery, currently 11/01/2020 08/12/2022 Overview: 11/01/2020atient is 2 para 1 with a history of a delivery at 28 weeks. It was a precipitous delivery. I did discuss with patient Ashley. I have advised patient to go to the [facility] website and view the video and information. I also told her that if she decides to take this medication that she could come into the office for instruction. TKRN Nausea/vomiting in 11/01/2020 08/12/2022 Overview: 11/01/2020atient is complaining of nausea in . Denies any vomiting advised patient to call/come in if she is unable to keep any food or fluids down in a 24-hour period. TKRN delivery, delivered 08/06/2019 08/12/2022 Threatened premature labor in third trimester 06/18/20 19 08/06/2019 Overview: 06/18/19 - received BMZ at [facility] on 06/14-06/15. FFN was positive on 06/15. - Kamilla Porter MD Anemia during in second trimester 05/18/2019 08/06/2019 Overview: 05/18/19-Start iron supplementation. Repeat CBC in 4 weeks. 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 Patient is engaged to the father the baby. Father of the baby graduated 2 years ago.TKRN Quit smoking 02/04/2019 08/06/2019 Overview: 02/04/2019Pt recently quit smoking end of December. Discussed risks of smoking during and advised pt to continue not smoking.TKRN Patient request for diagnostic testing 02/04/2019 08/06/2019 Overview: 11/01/2020 . Patient desires nuchal ultrasound. Considering genetic carrier screening testing.Erik Galicia RN documented as of this encounter (statuses as of 08/22/2023) [facility]10-27-2021 History of Past illness Narrative* Problem Noted Date Diagnosed Date Resolved Date premature rupture of membranes 05/02/2021 08/12/2022 Cervical insufficiency durin g in second trimester, antepartum 03/15/2021 08/12/2022 Threatened labor, second trimester 03/15/2021 08/12/2022 Dichorionic diamniotic twin in second trimester 02/13/2021 06/03/2021 History of delivery, currently 11/01/2020 08/12/2022 Overview: 1Patient is 2 para 1 with a history of a delivery at 28 weeks. It was a precipitous delivery. I did discuss with patient Ashley. I have advised patient to go to the [place] website and view the video and information. I also told her that if she decides to take this medication that she could come into the office for instruction. TKRN Nausea/vomiting in 11/01/2020 08/12/2022 Overview: 1Patient is complaining of nausea in . Denies any vomiting advised patient to call/come in if she is unable to keep any food or fluids down in a 24-hour period. TKRN delivery, delivered 08/06/2019 08/12/2022 Threatened premature labor in third trimester 06/18/20 19 08/06/2019 Overview: 06/18/19 - received SHASHANK at [facility] on 06/14-06/15. FFN was positive on 06/15. - Kamilla Porter MD Anemia during in second trimester 05/18/2019 08/06/2019 Overview: 05/18/19-Start iron supplementation. Repeat CBC in 4 weeks. 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 Patient is engaged to the father the baby. Father of the baby graduated 2 years ago.TKRN Quit smoking 02/04/2019 08/06/2019 Overview: 02/04/2019Pt recently quit smoking end of December. Discussed risks of smoking during and advised pt to continue not smoking.TKRN Patient request for diagnostic testing 02/04/2019 08/06/2019 Overview: 11/01/2020 . Patient desires nuchal ultrasound. Considering genetic carrier screening testing.Erik Galicia RN documented as of this encounter (statuses as of 09/20/2023) [facility]-27[facility] History of Past illness Narrative* Problem Noted Date Diagnosed Date Resolved Date premature rupture of membranes 05/02/2021 08/12/2022 Cervical insufficiency durin g in second trimester, antepartum 03/15/2021 08/12/2022 Threatened labor, second trimester 03/15/2021 08/12/2022 Dichorionic diamniotic twin in second trimester 02/13/2021 06/03/2021 History of delivery, currently 11/01/2020 08/12/2022 Overview: 11/01/2020atient is 2 para 1 with a history of a delivery at 28 weeks. It was a precipitous delivery. I did discuss with patient Ashley. I have advised patient to go to the [place] website and view the video and information. I also told her that if she decides to take this medication that she could come into the office for instruction. TKRN Nausea/vomiting in 11/01/2020 08/12/2022 Overview: 11/01/2020atient is complaining of nausea in . Denies any vomiting advised patient to call/come in if she is unable to keep any food or fluids down in a 24-hour period. TKRN delivery, delivered 08/06/2019 08/12/2022 Threatened premature labor in third trimester 06/18/20 19 08/06/2019 Overview: 06/18/19 - received BMZ at [facility] on 06/14-06/15. FFN was positive on 06/15. - Kamilla Porter MD Anemia during in second trimester 05/18/2019 08/06/2019 Overview: 05/18/19-Start iron supplementation. Repeat CBC in 4 weeks. 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 Patient is engaged to the father the baby. Father of the baby graduated 2 years ago.TKRN Quit smoking 02/04/2019 08/06/2019 Overview: 02/04/2019Pt recently quit smoking end of December. Discussed risks of smoking during and advised pt to continue not smoking.TKRN Patient request for diagnostic testing 02/04/2019 08/06/2019 Overview: 11/01/2020 . Patient desires nuchal ultrasound. Considering genetic carrier screening testing.Erik Galicia RN documented as of this encounter (statuses as of 09/23/2023) [facility] History of Past illness Narrative* Problem Noted Date Diagnosed Date Resolved Date premature rupture of membranes 05/02/2021 08/12/2022 Cervical insufficiency durin g in second trimester, antepartum 03/15/2021 08/12/2022 Threatened labor, second trimester 03/15/2021 08/12/2022 Dichorionic diamniotic twin in second trimester 02/13/2021 06/03/2021 History of delivery, currently 11/01/2020 08/12/2022 Overview: 11/01/2020atient is 2 para 1 with a history of a delivery at 28 weeks. It was a precipitous delivery. I did discuss with patient Ashley. I have advised patient to go to the [place] website and view the video and information. I also told her that if she decides to take this medication that she could come into the office for instruction. TKRN Nausea/vomiting in 11/01/2020 08/12/2022 Overview: 11/01/2020atient is complaining of nausea in . Denies any vomiting advised patient to call/come in if she is unable to keep any food or fluids down in a 24-hour period. TKRN delivery, delivered 08/06/2019 08/12/2022 Threatened premature labor in third trimester 06/18/20 19 08/06/2019 Overview: 06/18/19 - received BMZ at [facility] on 06/14-06/15. FFN was positive on 06/15. - Kamilla Porter MD Anemia during in second trimester 05/18/2019 08/06/2019 Overview: 05/18/19-Start iron supplementation. Repeat CBC in 4 weeks. Nilda Jean APRN.CNM High risk teen , antepartum 02/04/2019 08/12/2022 Overview: 11/01/2020 Patient is a senior at [employer]. Patient is engaged to the father the baby. Father of the baby graduated 2 years ago.TKRN Quit smoking 02/04/2019 08/06/2019 Overview: 02/04/2019Pt recently quit smoking end of December. Discussed risks of smoking during and advised pt to continue not smoking.TKRN Patient request for diagnostic testing 02/04/2019 08/06/2019 Overview: 11/01/2020 . Patient desires nuchal ultrasound. Considering genetic carrier screening testing.Erik Galicia RN documented as of this encounter (statuses as of 10/10/2023) [facility]10-27-2021 NoteHNO ID: [id number] Author: Christian Dunn MD Service: Maternal Medicine Author Type: Physician Type: Progress Notes Filed: 05/02/2021 9:11 AM Note Text: 1. Discussed the risks of delivery. 2. Discussed with the patient the signs and symptoms of labor. 3. Discussed with the patient the risks, benefits, and alternatives to corticosteroids. 4. Recommend NICU consultation to discuss the morbidity and mortality of delivery at 31 weeks. 6. Discussed with the patient the 50% likelihood of delivery within one week of PPROM. We discussed the risks of PPROM including infection, bleeding, abruption, labor, intrauterine demise, and morbidity/mortality. 7. I have discussed the various causes of ROM which include sub clinical intra-amniotic infection. In most cases ROM occurs without identifiable risk factors. risk is dependent on gestational age at ROM. The most significant risk for the fetus after PPROM are complications related to prematurity. Chorioamnionitis is associated with increase risk of CP and white matter damage. We also reviewed symptoms and signs of clinical chorioamnionitis. demise is usually due to infection, cord prolapse or abruption. 8. Recommend delivery at 34 weeks to decrease the likelihood of the above complications. 9. Recommend initiating 2 days of IV antibiotics followed by 5 more days of oral antibiotics. This regimen is given to prolong latency even with a negative GBS culture. 10. Check cervical GC, CT and rectovaginal GBS. 11. Discussed that she would likely not be a good candidate for a vaginal breech delivery of second twin secondary to the size of the second twin being bigger than the presenting twin. In addition, her previous delivery was at 28 weeks. She does not have proven pelvis to deliver a fetus of the size at this point. We discussed that she could deliver the first twin vaginally and then if the second twin becomes vertex, she could have a vaginal second twin delivery. We discussed that her recommendation would be for if the second twin did not present as vertex at the time of delivery. She may also choose to proceed with section from the outset to avoid having both vaginal delivery and section. She will think about this and let us know how she would like to proceed. All questions answered. With the patient's consent, patient's mother was listening and asking questions regarding our discussion by phone. Christian Dunn MDBristol County Tuberculosis [id number] NoteHNO ID: [id number] Author: Jose Polk (M-Changa) Service: ? Author Type: ? Type: Plan of Care Filed: 03/19/2021 6:39 PM Note Text: PHARMACY BEDSIDE DELIVERY SERVICE Patient Name: Barbara Gutierrez The marked outpatient medications were filled and picked up at [facility] Medication List Notice Progesterone micronized 200mg capsule x Jose Polk (M-Changa) PAGER: [phone] March 19, 2021 6:38 [facility]09-11-2021 NoteHNO ID: [id number] Author: Tiffanie Mendoza MD Service: Nursing Author Type: Physician Type: Procedures Filed: 03/17/2021 7:18 PM Note Text: OBSTETRICS NST SUMMARY SERVICE DATE: March 17, 2021 The patient is a 20 year old female, , who is at 24w4d with an ABRAHAM of 07/03/2021, by Last Menstrual Period dating method. NST OBJECTIVE FINDINGS PER NURSE: Start Time: 1130 (03/17/21 1158 : Sayda Madrigal RN) Complete Time: 1158 (03/17/21 1158 : Sayda Madrigal RN) Indications: Multiple Gestation; Labor (03/17/21 1158 : Sayda Madrigal RN) Patient Reason For: To monitor the babies (03/17/21 1158 : Sayda Madrigal RN) NST Explanation: Procedure Explained;Monitor Explained;Verbalizes Understanding (03/17/21 1158 : Sayda Madrigal RN) Acoustic Stimulator: Interventions: MONITORING/ASSESSMENT: Baseline: 150 bpm (03/17/21 1158 : Sayda Madrigal RN) 145 bpm (03/17/21 1158 : Sayda Madrigal RN) Variability: Moderate (6-25 bpm) (03/17/21 1158 : Sayda Madrigal RN) Moderate (6-25 bpm) (03/17/21 1158 : Sayda Madrigal RN) Accelerations: Present (03/17/21 1158 : Sayda Madrigal RN) Present (03/17/21 1158 : Sayda Madrigal RN) Decelerations: Decelerations: None (03/17/21 1158 : Sayda Madrigal RN) Decelerations Fetus B: None (03/17/21 1158 : Sayda Madrigal RN) Contractions: Not present (03/17/21 1158 : Sayda Madrigal RN) Frequency: Above information forwarded to Dr. Mendoza (03/17/21 1158 : Sayda Madrigal RN) for final review and interpretation. SIGNATURE: Sayda Madrigal RN PATIENT NAME: Barbara Gutierrez DATE: March 17, 2021 TIME: 2:28 PM PROVIDER INTERPRETATION: Baby A: Reactive Baby B: Reactive SIGNATURE: Tiffanie Mendoza MD DATE: March 17, 2021 TIME: 7:18 [facility]09-11-2021 NoteHNO ID: [id number] Author: Rachelle Zuñiga MD Service: Obstetrics Author Type: Resident Type: Progress Notes Filed: 03/17/2021 6:57 AM Note Text: Attestation signed by Melanie Cook MD at 03/17/2021 9:05 AM Attending Note I evaluated the patient and personally participated in the burger components. I agree with the resident's findings and plan as documented and have discussed the case and management of the patient's care with the resident. Barbara is doing well this morning with no complaints Desires discharge home Reviewed return precautions at length, has transportation plan to return to [facility] if any signs/symptoms labor DC home with vag progesterone Melanie Cook MD March 17, 2021 9:04 AM OBSTETRICS ANTEPARTUM PROGRESS NOTE SERVICE DATE: 03/17/2021 SERVICE TIME: 6:40 AM Assessment AND Plan : 20 year old EGA:24w4d admitted for Labor arrested at 2 cm dilation. Plan of care discussed with: Provider, RN, Patient. Labor Di/Di Twin - SVE /-3 - Afebrile, HDS, WBC 12.3 - History of spontaneous 28 week delivery - s/p DXA x3 doses for lung maturity (03/15-03/17) - s/p Magnesium x12 hours for neuroprotection - GC/CT, vag path negative, urine culture in process, GBS collected - Utox negative - NICU consulted ? HSV: Neg SSE, continue ppx valtrex Depression: No meds Teen : SW consult ? Routine/FWB - CLD - PNV - Daily NST - Consents signed Subjective : No current vaginal bleeding, No current leaking of fluid, No contractions, Good movement, No shortness of breath or chest pain and No calf tenderness Objective : LAST VITALS: Pulse BP Resp O2 Sat Temp Pain 105 105/56 18 96 % 37 ?C (98.6 ?F) 0 PHYSICAL EXAM: General: WD, WN Abdomen: soft, nontender, no masses Uterus: soft, NT Extremities: tr edema MONITORING/ASSESSMENT: NST with discrete interpretation : MONITORING/ASSESSMENT: Baseline: 140 bpm (03/16/21899 : Ame Nath RN) Baseline Rate Fetus B: 130 bpm (03/16/21899 : Ame Nath RN) Variability: Moderate (6-25 bpm) (03/16/21899 : Ame Nath RN) Variability Fetus B: Moderate (6-25 bpm) (03/16/21899 : Ame Nath RN) Accelerations: Absent (03/16/21899 : Ame Nath RN) Accelerations Fetus B: Absent (03/16/21899 : Ame Nath RN) Decelerations: Decelerations: None (03/16/21899 : Ame Nath RN), Decel Frequency: Intermittent (03/16/21729 : Ame Nath RN) Decelerations Fetus B: None (03/16/21899 : Ame Nath RN) Contractions: Irregular (03/16/21899 : Ame Nath RN) Frequency: x1 (03/16/21899 : Ame Nath RN) NST INTERPRETATION: NST Interpretation: FHR Category: 1 (03/16/21899 : Ame Nath RN) LABS Diagnostic tests reviewed for today's visit: Most recent labs and imaging results. SIGNATURE: Rachelle Zuñiga MD PATIENT NAME: Barbara Gutierrez DATE: March 17, 2021 TIME: 6:40 [facility]09-11-2021 NoteHNO ID: [id number] Author: Interface Note Service: ? Author Type: ? Type: Progress Notes Filed: 03/17/2021 1:49 AM Note Text: Epic Scheduled Downtime: 03/17/2021 1:02:00 AM to 03/17/2021 1:38:00 [facility]09-10-2021 NoteHNO ID: [id number] Author: Marlena Ambriz MD Service: Obstetrics Author Type: Resident Type: Progress Notes Filed: 03/16/2021 10:46 AM Note Text: OBSTETRICS INTRAPARTUM PROGRESS NOTE SERVICE DATE: March 16, 2021 SERVICE TIME: 10:43 AM Subjective Patient with no complaints. Objective Temp Min/Max Last 12 Hrs Pre Delivery: Temp Min: 36.6 ?C (97.9 ?F) Min taken time: 03/16/21631 Max: 36.8 ?C (98.2 ?F) Max taken time: 03/16/21 033 Last Pulse/Resp/O2/Temp: Pulse Resp O2 Sat Temp 80 16 100 % 36.6 ?C (97.9 ?F) BP Trend (last 4 values) 03/16/21 0532 03/16/21 0632 03/16/21 0834 03/16/21 0932 BP: 93/58 107/60 109/68 99/55 Pain Score Trend (last 4 values) 03/16/21 0433 03/16/21 0532 03/16/21 0632 03/16/21 0730 Pain Level: 3 3 3 3 PHYSICAL EXAM: General: WD, WN Cervical Exam Trend (last 4 values) 03/15/21205003/16/21 0138 Dilation: 2 2 Effacement (%): 60 60 Station: -3 -3 Membranes: Membrane Status: Intact Total ROM Time: rupture date or rupture time have not been documented Additional Findings: None Labs: Diagnostic tests reviewed for today's visit: Most recent labs and imaging results. Assessment/Plan 20 year old EGA:24w3d. Admitted for labor. FHR Category: Category I Patient Active Hospital Problem List: Threatened labor, second trimester (03/15/2021) History of delivery, currently (11/01/2020) Dichorionic diamniotic twin in second trimester (02/13/2021) Cervical insufficiency during in second trimester, antepartum (03/15/2021) Labor Di/Di Twin - SVE /-3 - last checked @01:40 - Afebrile, HDS, WBC 12.3 - History of spontaneous 28 week delivery - DXA x4 doses for lung maturity (#1 @ 2026) - Magnesium x12 hours for neuroprotection (bolus @ 2149) - GC/CT, vag path, urine culture, GBS collected - Utox negative - NICU consulted - Plan to observe on LANDD after 12 hrs of mag > move to antepartum if no signs of labor ? HSV: Neg SSE, continue ppx valtrex Depression: No meds Teen : SW consult ? Routine/FWB - CLD - PNV - CFM - PCN for GBS unknown - Consents signed Plan of care discussed with: Provider, RN, Patient. SIGNATURE: Marlena Ambriz MD PATIENT NAME: Barbara Gutierrez DATE: March 16, 2021 TIME: 10:43 [facility]09-10-2021 NoteHNO ID: [id number] Author: Henna Trivedi MD Service: Obstetrics Author Type: Resident Type: Progress Notes Filed: 03/16/2021 1:50 AM Note Text: OBSTETRICS INTRAPARTUM PROGRESS NOTE SERVICE DATE: March 16, 2021 SERVICE TIME: 1:35 AM Subjective Pt w/ increased cramping Objective Temp Min/Max Last 12 Hrs Pre Delivery: Temp Min: 36.4 ?C (97.5 ?F) Min taken time: 03/15/212231 Max: 36.8 ?C (98.2 ?F) Max taken time: 03/15/21 1839 Last Pulse/Resp/O2/Temp: Pulse Resp O2 Sat Temp 79 16 100 % 36.4 ?C (97.5 ?F) BP Trend (last 4 values) 03/15/21211003/15/21223103/15/21233103/16/21 003 BP: 116/69 109/69 101/55 105/63 Pain Score Trend (last 4 values) 03/15/21211003/15/21223103/15/21233103/16/21 003 Pain Level: 5 3 3 3 PHYSICAL EXAM: General: WD, WN, comfortable Cervical Exam Trend (last 4 values) 03/15/21205003/16/21 0138 Dilation: 2 2 Effacement (%): 60 60 Station: -3 -3 Membranes: Membrane Status: Intact Total ROM Time: rupture date or rupture time have not been documented Additional Findings: None Monitoring: Baseline: 135 bpm (03/16/2199 : Gabi Denes, RN) Baseline Rate Fetus B: 135 bpm (03/16/2199 : Gabi Denes, RN) Variability: Moderate (6-25 bpm) (03/16/2199 : Gabi Denes, RN) Variability Fetus B: Moderate (6-25 bpm) (03/16/2199 : Gabi Denoto, RN) Accelerations: Present (03/16/2199 : Gabi Denoto, RN) Accelerations Fetus B: Absent (03/16/2199 : Gabi Denoto, RN) Decelerations: Decelerations: None (03/16/2199 : Gabi Denoto, RN) Decelerations Fetus B: None (03/16/2199 : Gabi Denes, RN) Contractions: Irregular (03/16/2199 : Gabi Den, RN) Frequency: 3-7 (03/16/2199 : Gabi Crenshaw, LIO) NST Interpretation: FHR Category: 1 (03/16/21 0100 : Gabi Crenshaw, RN) Labs: Diagnostic tests reviewed for today's visit: Most recent labs and imaging results. Assessment/Plan 20 year old EGA:24w3d. Admitted for labor FHR Category: Category I Patient Active Hospital Problem List: Threatened labor, second trimester (03/15/2021) History of delivery, currently (11/01/2020) Dichorionic diamniotic twin in second trimester (02/13/2021) Cervical insufficiency during in second trimester, antepartum (03/15/2021) Labor Di/Di Twin - SVE /-3, similar to office exam, unchanged at this time - Afebrile, HDS, WBC 12.3 - History of spontaneous 28 week delivery - Irritability on monitor, improved w/ 1L LR bolus, but continues to contract irregularly - DXA x4 doses for lung maturity (#1 @ 2026) - Magnesium x12 hours for neuroprotection (bolus @ 2149) - GC/CT, vag path, urine culture, GBS collected - Utox negative - NICU consulted ? HSV - Negative SSE - Continue ppx valtrex ? Depression - No meds ? Teen - SW consult ? Routine/FWB - CLD - PNV - CFM - PCN for GBS unknown - Consents signed Plan of care discussed with: Provider, RN, Patient. SIGNATURE: Henna Trivedi MD PATIENT NAME: Barbara Gutierrez DATE: March 16, 2021 TIME: 1:47 [facility]08-10-2021 History of Past illness Narrative* Problem Noted Date Resolved Date Dichorionic diamniotic twin in second trimester 02/13/2021 06/03/2021 Threatened premature labor in third trimester 08/06/2019 Overview: 06/18/19 - received BMZ at [facility] on 06/14-06/15. FFN was positive on 06/15. - Kamilla Porter MD Anemia during in second trimester 05/0708/06/2019 Overview: 05/18/19-Start iron supplementation. Repeat CBC in 4 weeks. Nilda Jean APRN.EARLEM Quit smoking 02/04/2019 08/06/2019 Overview: 02/04/2019Pt recently quit smoking end of December. Discussed risks of smoking during and advised pt to continue not smoking.TKRN Patient request for diagnostic testing 9 08/06/2019 Overview: 11/01/2020 . Patient desires nuchal ultrasound. Considering genetic carrier screening testing.Erik Galicia RN documented as of this encounter (statuses as of 12/13/2021) [facility]21 History of Past illness Narrative* Problem Noted Date Resolved Date Dichorionic diamniotic twin in second trimester 02/13/2021 06/03/2021 Threatened premature labor in third trimester 08/06/2019 Overview: 06/18/19 - received BMZ at [facility] on 06/14-06/15. FFN was positive on 06/15. - Kamilla Porter MD Anemia during in second trimester 05/0708/06/2019 Overview: 05/18/19-Start iron supplementation. Repeat CBC in 4 weeks. Nilda Jean APRN.EARLEM Quit smoking 02/04/2019 08/06/2019 Overview: 02/04/2019Pt recently quit smoking end of December. Discussed risks of smoking during and advised pt to continue not smoking.TKRN Patient request for diagnostic testing 9 08/06/2019 Overview: 11/01/2020 . Patient desires nuchal ultrasound. Considering genetic carrier screening testing.Erik Galicia RN documented as of this encounter (statuses as of 12/28/2021) [facility]21 History of Past illness Narrative* Problem Noted Date Resolved Date Dichorionic diamniotic twin in second trimester 02/13/2021 06/03/2021 Threatened premature labor in third trimester 08/06/2019 Overview: 06/18/19 - received BMZ at [facility] on 06/14-06/15. FFN was positive on 06/15. - Kamilla Porter MD Anemia during in second trimester 05/0708/06/2019 Overview: 05/18/19-Start iron supplementation. Repeat CBC in 4 weeks. Nilda Jean APRN.CNM Quit smoking 02/04/2019 08/06/2019 Overview: 02/04/2019Pt recently quit smoking end of December. Discussed risks of smoking during and advised pt to continue not smoking.TKRN Patient request for diagnostic testing 9 08/06/2019 Overview: 11/01/2020 . Patient desires nuchal ultrasound. Considering genetic carrier screening testing.Erik Galicia RN documented as of this encounter (statuses as of 12/28/2021) [facility] History of Past illness Narrative* Problem Noted Date Resolved Date Dichorionic diamniotic twin in second trimester 02/13/2021 06/03/2021 Threatened premature labor in third trimester 08/06/2019 Overview: 06/18/19 - received BMZ at [facility] on 06/14-06/15. FFN was positive on 06/15. - Kamilla Porter MD Anemia during in second trimester 05/0708/06/2019 Overview: 05/18/19-Start iron supplementation. Repeat CBC in 4 weeks. Nilda Jean APRN.EARLEM Quit smoking 02/04/2019 08/06/2019 Overview: 02/04/2019Pt recently quit smoking end of December. Discussed risks of smoking during and advised pt to continue not smoking.TKRN Patient request for diagnostic testing 9 08/06/2019 Overview: 11/01/2020 . Patient desires nuchal ultrasound. Considering genetic carrier screening testing.Erik Galicia RN documented as of this encounter (statuses as of 01/01/2022) [facility] History of Past illness Narrative* Problem Noted Date Resolved Date Dichorionic diamniotic twin in second trimester 02/13/2021 06/03/2021 Threatened premature labor in third trimester 08/06/2019 Overview: 06/18/19 - received BMZ at [facility] on 06/14-06/15. FFN was positive on 06/15. - Kamilla Porter MD Anemia during in second trimester 05/0708/06/2019 Overview: 05/18/19-Start iron supplementation. Repeat CBC in 4 weeks. Nilda Jean APRN.EARLEM Quit smoking 02/04/2019 08/06/2019 Overview: 02/04/2019Pt recently quit smoking end of December. Discussed risks of smoking during and advised pt to continue not smoking.TKRN Patient request for diagnostic testing 9 08/06/2019 Overview: 11/01/2020 . Patient desires nuchal ultrasound. Considering genetic carrier screening testing.Erik Galicia RN documented as of this encounter (statuses as of 02/14/2022) [facility] History of Past illness Narrative* Problem Noted Date Resolved Date Dichorionic diamniotic twin in second trimester 02/13/2021 06/03/2021 Threatened premature labor in third trimester 08/06/2019 Overview: 06/18/19 - received BMZ at [facility] on 06/14-06/15. FFN was positive on 06/15. - Kamilla Porter MD Anemia during in second trimester 05/0708/06/2019 Overview: 05/18/19-Start iron supplementation. Repeat CBC in 4 weeks. Nilda Jean APRN.CNM Quit smoking 02/04/2019 08/06/2019 Overview: 02/04/2019Pt recently quit smoking end of December. Discussed risks of smoking during and advised pt to continue not smoking.TKRN Patient request for diagnostic testing 9 08/06/2019 Overview: 11/01/2020 . Patient desires nuchal ultrasound. Considering genetic carrier screening testing.Erik Galicia RN documented as of this encounter (statuses as of 02/15/2022) [facility] History of Past illness Narrative* Problem Noted Date Resolved Date Dichorionic diamniotic twin in second trimester 02/13/2021 06/03/2021 Threatened premature labor in third trimester 08/06/2019 Overview: 06/18/19 - received BMZ at [facility] on 06/14-06/15. FFN was positive on 06/15. - Kamilla Porter MD Anemia during in second trimester 05/0708/06/2019 Overview: 05/18/19-Start iron supplementation. Repeat CBC in 4 weeks. Nilda Jean APRN.CNM Quit smoking 02/04/2019 08/06/2019 Overview: 02/04/2019Pt recently quit smoking end of December. Discussed risks of smoking during and advised pt to continue not smoking.TKRN Patient request for diagnostic testing 9 08/06/2019 Overview: 11/01/2020 . Patient desires nuchal ultrasound. Considering genetic carrier screening testing.Erik Galicia RN documented as of this encounter (statuses as of 02/19/2022) [facility]21 History of Past illness Narrative* Problem Noted Date Resolved Date Dichorionic diamniotic twin in second trimester 02/13/2021 06/03/2021 Threatened premature labor in third trimester 08/06/2019 Overview: 06/18/19 - received BMZ at [facility] on 06/14-06/15. FFN was positive on 06/15. - Kamilla Porter MD Anemia during in second trimester 05/0708/06/2019 Overview: 05/18/19-Start iron supplementation. Repeat CBC in 4 weeks. Nilda Jean APRN.CNM Quit smoking 02/04/2019 08/06/2019 Overview: 02/04/2019Pt recently quit smoking end of December. Discussed risks of smoking during and advised pt to continue not smoking.TKRN Patient request for diagnostic testing 9 08/06/2019 Overview: 11/01/2020 . Patient desires nuchal ultrasound. Considering genetic carrier screening testing.Erik Galicia RN documented as of this encounter (statuses as of 03/15/2022) [facility]21 History of Past illness Narrative* Problem Noted Date Resolved Date Dichorionic diamniotic twin in second trimester 02/13/2021 06/03/2021 Threatened premature labor in third trimester 08/06/2019 Overview: 06/18/19 - received BMZ at [facility] on 06/14-06/15. FFN was positive on 06/15. - Kamilla Porter MD Anemia during in second trimester 05/0708/06/2019 Overview: 05/18/19-Start iron supplementation. Repeat CBC in 4 weeks. Nilda Jean APRN.CNM Quit smoking 02/04/2019 08/06/2019 Overview: 02/04/2019Pt recently quit smoking end of December. Discussed risks of smoking during and advised pt to continue not smoking.TKRN Patient request for diagnostic testing 9 08/06/2019 Overview: 11/01/2020 . Patient desires nuchal ultrasound. Considering genetic carrier screening testing.Erik Galicia RN documented as of this encounter (statuses as of 05/21/2022) [facility]21 History of Past illness Narrative* Problem Noted Date Resolved Date Dichorionic diamniotic twin in second trimester 02/13/2021 06/03/2021 Threatened premature labor in third trimester 08/06/2019 Overview: 06/18/19 - received BMZ at [facility] on 06/14-06/15. FFN was positive on 06/15. - Kamilla Porter MD Anemia during in second trimester 05/0708/06/2019 Overview: 05/18/19-Start iron supplementation. Repeat CBC in 4 weeks. Nilda Jean APRN.CNM Quit smoking 02/04/2019 08/06/2019 Overview: 02/04/2019Pt recently quit smoking end of December. Discussed risks of smoking during and advised pt to continue not smoking.TKRN Patient request for diagnostic testing 9 08/06/2019 Overview: 11/01/2020 . Patient desires nuchal ultrasound. Considering genetic carrier screening testing.Erik Galicia RN documented as of this encounter (statuses as of 07/10/2022) [facility]* Diagnosis Acute pain of left knee- Primary Injury of left ankle, initial encounter documented in this encounter [facility]* Diagnosis Screening examination for STD (sexually transmitted disease)- Primary Screening examination for venereal disease Folliculitis Other specified disease of hair and hair follicles documented in this encounter [facility]* Diagnosis Burning with urination- Primary Dysuria Screening examination for STD (sexually transmitted disease) Screening examination for venereal disease documented in this encounter [facility]* Diagnosis Trichimoniasis- Primary Trichomoniasis, unspecified documented in this encounter [facility]* Diagnosis Urinary frequency- Primary Burning with urination Dysuria documented in this encounter [facility]* Diagnosis Ph[facility]itis, unspecified etiology- Primary [facility] Diagnosis Viral illness- Primary Unspecified viral infection, in conditions classified elsewhere and of unspecified site [facility] noteNo assessment information availableWThe [facility] Work Phone: Evaluation note* Diagnosis Missed menses- Primary Absence of menstruation documented in this encounter [facility] note* Diagnosis Pelvic pain in female- Primary Unspecified symptom associated with female genital organs Irregular menstrual cycle Vaginal bleeding Other specified noninflammatory disorder of vagina [facility]* Diagnosis Pelvic pain in female- Primary Unspecified symptom associated with female genital organs documented in this encounter [facility] note* Diagnosis Burning with urination- Primary Dysuria [facility]* Diagnosis Pelvic pain in female Unspecified symptom associated with female genital organs documented in this encounter [facility]* Diagnosis Skin infection- Primary Unspecified local infection of skin and subcutaneous tissue documented in this encounter [facility] note* Diagnosis Headache, unspecified headache type- Primary Dehydration documented in this encounter [facility] note* Diagnosis Bilateral carpal tunnel syndrome- Primary Carpal tunnel syndrome documented in this encounter [facility] note* Diagnosis Pain in left hand- Primary Bilateral carpal tunnel syndrome Carpal tunnel syndrome Pain in right hand Paresthesia of skin Disturbance of skin sensation documented in this encounter [facility]* Diagnosis Vaginal spotting- Primary Other specified noninflammatory disorder of vagina Threatened miscarriage in early Threatened , unspecified as to episode of care Encounter for test, result positive examination or test, positive result Bleeding in early Unspecified hemorrhage in early , unspecified as to episode of care History of delivery documented in this encounter [facility] note* Diagnosis Ruptured right tubal ectopic causing hemoperitoneum- Primary documented in this encounter [facility] note* Diagnosis Injury of left ankle, initial encounter Acute pain of left knee [facility]* Diagnosis Missed menses- Primary Absence of menstruation Patient desires Unspecified procreative management [facility]* Diagnosis URI, acute- Primary Acute upper respiratory infections of unspecified site Nausea Nausea alone Viral illness Unspecified viral infection, in conditions classified elsewhere and of unspecified site documented in this encounter [facility] note* Diagnosis Nausea vomiting and diarrhea- Primary Diarrhea Generalized abdominal pain Abdominal pain, generalized documented in this encounter [facility]* Diagnosis Encounter for test, result positive ([facility])- Primary examination or test, positive result History of ectopic Personal history of other genital system and obstetric disorders documented in this encounter [facility]* Diagnosis Acute midline low back pain without sciatica- Primary documented in this encounter [facility]* Diagnosis History of ectopic Personal history of other genital system and obstetric disorders Encounter for test, result positive ([facility]) examination or test, positive result documented in this encounter [facility]* Diagnosis Acute midline low back pain without sciatica- Primary documented in this encounter [facility]* Diagnosis Supervision of high risk , antepartum ([facility])- Primary Hx of delivery, currently ([facility]) with history of pre-term labor 8 weeks gestation of ([facility]) state, incidental Screen for STD (sexually transmitted disease) Screening examination for venereal disease Screening for cervical cancer Screening for malignant neoplasm of the cervix Special screening examination for human papillomavirus (HPV) Nausea/vomiting in ([facility]) Unspecified vomiting of , unspecified as to episode of care documented [facility]* Diagnosis History of delivery, currently ([facility])- Primary with history of pre-term labor documented in this encounter [facility]* Diagnosis Encounter for screening for malformation ([facility])- Primary 8 weeks gestation of ([facility]) state, incidental Family history of Russel's disease- Primary Family history of other neurological diseases Supervision of high risk , antepartum ([facility]) Hx of delivery, currently ([facility]) with history of pre-term labor documented in this encounter [facility]* Diagnosis Family history of [place]'s disease- Primary Family history of other neurological diseases Supervision of high risk , antepartum ([facility]) Hx of delivery, currently ([facility]) with history of pre-term labor 12 weeks gestation of ([facility])- Primary state, incidental History of delivery, currently ([facility]) with history of pre-term labor documented in this encounter [facility]* Diagnosis Family history of [place]'s disease- Primary Family history of other neurological diseases Supervision of high risk , antepartum ([facility]) Hx of delivery, currently (HCC) with history of pre-term labor * Assessment & Plan Note - Kamilla Porter MD - 12/28/2024 12:57 PM EDTAssociated Problem(s): Supervision of high risk , antepartum (HCC) (Resolved 12/28/2024) * Assessment & Plan Note - Kamilla Porter MD - 12/28/2024 12:57 PM EDTAssociated Problem(s): Hx of delivery, currently (HCC) Biweekly cervical lengths starting at 16 weeks. * Assessment & Plan Note - Kamilla Porter MD - 12/28/2024 12:57 PM EDTAssociated Problem(s): Family history of [place]'s disease MFM consult with today. 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 The availability of genetic counseling and testing was reviewed and is desiredby the patient. Genetic counseling was ordered. documented in this encounter [facility]* Diagnosis Family history of [place]'s disease- Primary Family history of other neurological diseases Supervision of high risk , antepartum (HCC) Hx of delivery, currently (HCC) with history of pre-term labor Supervision of high risk , antepartum (HCC)- Primary Hx of delivery, currently (HCC) with history of pre-term labor Family history of [place]'s disease Family history of other neurological diseases 16 weeks gestation of (HCC) state, incidental * Assessment & Plan Note - Antonieta Farrell MD - 01/26/2025 11:36 AM EDTAssociated Problem(s): Hx of delivery, currently (HCC) CL length and early anatomy today Continue with CL * Assessment & Plan Note - Antonieta Farrell MD - 01/26/2025 11:33 AM EDTAssociated Problem(s): Family history of [place]'s disease [facility]* Diagnosis Family history of [place]'s disease- Primary Family history of other neurological diseases Supervision of high risk , antepartum ([facility]) Hx of delivery, currently ([facility]) with history of pre-term labor History of delivery, currently ([facility])- Primary with history of pre-term labor Encounter for screening for malformation using ultrasound ([facility]) 16 weeks gestation of ([facility]) state, incidental Supervision of high risk , antepartum ([facility])- Primary Hx of delivery, currently ([facility]) with history of pre-term labor Family history of [place]'s disease Family history of other neurological diseases 16 weeks gestation of ([facility]) state, incidental documented in this encounter [facility] note* Diagnosis Family history of [place]'s disease- Primary Family history of other neurological diseases Supervision of high risk , antepartum ([facility]) Hx of delivery, currently ([facility]) with history of pre-term labor Supervision of high risk , antepartum ([facility])- Primary Hx of delivery, currently ([facility]) with history of pre-term labor Family history of Russel's disease Family history of other neurological diseases 16 weeks gestation of ([facility]) state, incidental Supervision of high risk , antepartum (HCC)- Primary Hx of delivery, currently ([facility]) with history of pre-term labor Family history of [place]'s disease Family history of other neurological diseases 18 weeks gestation of ([facility]) state, incidental Burning with urination- Primary Dysuria documented in this encounter [facility]* Diagnosis Family history of Russel's disease- Primary Family history of other neurological diseases Supervision of high risk , antepartum ([facility]) Hx of delivery, currently ([facility]) with history of pre-term labor Supervision of high risk , antepartum ([facility])- Primary Hx of delivery, currently ([facility]) with history of pre-term labor Family history of Russel's disease Family history of other neurological diseases 16 weeks gestation of ([facility]) state, incidental Supervision of high risk , antepartum ([facility])- Primary Hx of delivery, currently ([facility]) with history of pre-term labor Family history of [place]'s disease Family history of other neurological diseases 18 weeks gestation of ([facility]) state, incidental Acute cystitis without hematuria- Primary Acute cystitis documented in this encounter [facility]* Diagnosis Family history of Russel's disease- Primary Family history of other neurological diseases Supervision of high risk , antepartum ([facility]) Hx of delivery, currently ([facility]) with history of pre-term labor Supervision of high risk , antepartum ([facility])- Primary Hx of delivery, currently ([facility]) with history of pre-term labor Family history of [place]'s disease Family history of other neurological diseases 16 weeks gestation of ([facility]) state, incidental Supervision of high risk , antepartum ([facility])- Primary Hx of delivery, currently ([facility]) with history of pre-term labor Family history of [place]'s disease Family history of other neurological diseases 18 weeks gestation of ([facility]) state, incidental 20 weeks gestation of ([facility])- Primary state, incidental Hx of delivery, currently ([facility]) with history of pre-term labor Supervision of high risk , antepartum ([facility]) Urinary tract infection without hematuria, site unspecified documented in this encounter [facility]* Diagnosis Family history of [place]'s disease- Primary Family history of other neurological diseases Supervision of high risk , antepartum ([facility]) Hx of delivery, currently ([facility]) with history of pre-term labor Supervision of high risk , antepartum ([facility])- Primary Hx of delivery, currently ([facility]) with history of pre-term labor Family history of [place]'s disease Family history of other neurological diseases 16 weeks gestation of ([facility]) state, incidental Supervision of high risk , antepartum (HCC)- Primary Hx of delivery, currently ([facility]) with history of pre-term labor Family history of Russel's disease Family history of other neurological diseases 18 weeks gestation of ([facility]) state, incidental Hx of delivery, currently ([facility])- Primary with history of pre-term labor 20 weeks gestation of ([facility]) state, incidental Supervision of high risk , antepartum ([facility]) documented in this encounter [facility]* Diagnosis Family history of Russel's disease- Primary Family history of other neurological diseases Supervision of high risk , antepartum ([facility]) Hx of delivery, currently ([facility]) with history of pre-term labor Supervision of high risk , antepartum ([facility])- Primary Hx of delivery, currently ([facility]) with history of pre-term labor Family history of [place]'s disease Family history of other neurological diseases 16 weeks gestation of ([facility]) state, incidental Supervision of high risk , antepartum ([facility])- Primary Hx of delivery, currently ([facility]) with history of pre-term labor Family history of [place]'s disease Family history of other neurological diseases 18 weeks gestation of ([facility]) state, incidental Hx of delivery, currently ([facility])- Primary with history of pre-term labor 20 weeks gestation of ([facility]) state, incidental Supervision of high risk , antepartum ([facility]) 20 weeks gestation of ([facility])- Primary state, incidental Supervision of high risk , antepartum ([facility]) documented in this encounter [facility]* Diagnosis Family history of [place]'s disease- Primary Family history of other neurological diseases Supervision of high risk , antepartum ([facility]) Hx of delivery, currently ([facility]) with history of pre-term labor Supervision of high risk , antepartum ([facility])- Primary Hx of delivery, currently ([facility]) with history of pre-term labor Family history of [place]'s disease Family history of other neurological diseases 16 weeks gestation of ([facility]) state, incidental Supervision of high risk , antepartum ([facility])- Primary Hx of delivery, currently ([facility]) with history of pre-term labor Family history of [place]'s disease Family history of other neurological diseases 18 weeks gestation of ([facility]) state, incidental Acute cystitis without hematuria Acute cystitis documented in this encounter [facility]* Diagnosis Family history of [place]'s disease- Primary Family history of other neurological diseases Supervision of high risk , antepartum ([facility]) Hx of delivery, currently ([facility]) with history of pre-term labor Supervision of high risk , antepartum ([facility])- Primary Hx of delivery, currently ([facility]) with history of pre-term labor Family history of Russel's disease Family history of other neurological diseases 16 weeks gestation of ([facility]) state, incidental Supervision of high risk , antepartum ([facility])- Primary Hx of delivery, currently ([facility]) with history of pre-term labor Family history of [place]'s disease Family history of other neurological diseases 18 weeks gestation of ([facility]) state, incidental Hx of delivery, currently ([facility])- Primary with history of pre-term labor 23 weeks gestation of ([facility]) state, incidental documented in this encounter [facility]* Diagnosis Family history of [place]'s disease- Primary Family history of other neurological diseases Supervision of high risk , antepartum ([facility]) Hx of delivery, currently ([facility]) with history of pre-term labor Supervision of high risk , antepartum ([facility])- Primary Hx of delivery, currently ([facility]) with history of pre-term labor Family history of Russel's disease Family history of other neurological diseases 16 weeks gestation of ([facility]) state, incidental Supervision of high risk , antepartum ([facility])- Primary Hx of delivery, currently ([facility]) with history of pre-term labor Family history of Russel's disease Family history of other neurological diseases 18 weeks gestation of ([facility]) state, incidental Palpitations- Primary Supervision of high risk in second trimester ([facility]) Unspecified high-risk 23 weeks gestation of ([facility]) state, incidental Blurred vision Other specified visual disturbances Generalized body aches UTI (urinary tract infection) in , antepartum ([facility]) Infections of genitourinary tract antepartum documented in this encounter [facility]* Diagnosis Family history of [place]'s disease- Primary Family history of other neurological diseases Supervision of high risk , antepartum ([facility]) Hx of delivery, currently ([facility]) with history of pre-term labor Supervision of high risk , antepartum ([facility])- Primary Hx of delivery, currently ([facility]) with history of pre-term labor Family history of Russel's disease Family history of other neurological diseases 16 weeks gestation of ([facility]) state, incidental Supervision of high risk , antepartum ([facility])- Primary Hx of delivery, currently ([facility]) with history of pre-term labor Family history of [place]'s disease Family history of other neurological diseases 18 weeks gestation of ([facility]) state, incidental Supervision of high risk in second trimester ([facility])- Primary Unspecified high-risk 23 weeks gestation of ([facility]) state, incidental Urinary tract infection without hematuria, site unspecified Hx of delivery, currently ([facility]) with history of pre-term labor Screening for diabetes mellitus History of depression Personal history of other mental disorder History of herpes genitalis Personal history of other infectious and parasitic disease documented in this encounter [facility] Diagnosis Family history of [place]'s disease- Primary Family history of other neurological diseases Supervision of high risk , antepartum ([facility]) Hx of delivery, currently ([facility]) with history of pre-term labor Supervision of high risk , antepartum ([facility])- Primary Hx of delivery, currently ([facility]) with history of pre-term labor Family history of [place]'s disease Family history of other neurological diseases 16 weeks gestation of ([facility]) state, incidental Supervision of high risk , antepartum ([facility])- Primary Hx of delivery, currently ([facility]) with history of pre-term labor Family history of [place]'s disease Family history of other neurological diseases 18 weeks gestation of ([facility]) state, incidental Supervision of high risk in second trimester ([facility])- Primary Unspecified high-risk 24 weeks gestation of ([facility]) state, incidental Urinary tract infection without hematuria, site unspecified Nausea Nausea alone Diarrhea, unspecified type Cramping affecting , antepartum ([facility]) Hx of delivery, currently ([facility]) with history of pre-term labor [facility] Additional Instructions Plenty of fluids and rest. Tylenol and Motrin for pain. The antibiotic Bactrim 1 pill twice a day for the next 5 days starting tomorrow. You have a urinary tract infection. Your other labs were unremarkable. Your test was negative. Follow-up with your doctor if not improving. Return if worse.[facility] Work Phone: Hospital Discharge instructions Additional Instructions Follow-up with your [facility] at the [facility]. Continue Tylenol as needed for pain. Return with fever, new or worsening symptoms.[facility] Work Phone: Reason for referral (narrative)* Diagnostic Procedure Only (Urgent) - Closed Specialty Diagnoses / Procedures Referred By Contac t Referred To Contact XR IMAGING Diagnoses Acute pain of left knee Procedures XR KNEE GENERAL 4V AP BOTH/PA BOTH/LAT/MERC LEFT RADIOLOGIC EXAM KNEE COMPLETE 4/MORE VIEWS Yosi Payne APRN.CNP [address] [place] [address] Xr Imaging Referral ID Status Reason Start Date Expiration Date V isits Requested Visits Authorized [id number] Closed Auto-Generate d Referral 12/28/2021 01/27/2023 1 1 * Diagnostic Procedure Only (Urgent) - Closed Specialty Diagnoses / Procedures Referred By Contac t Referred To Contact XR IMAGING Diagnoses Injury of left ankle, initial encounter Procedures XR ANKLE GENERAL 3V AP/LAT/OBL LEFT RADEX ANKLE COMPLETE MINIMUM 3 VIEWS Yosi Payne APRN.CNP [address] [place] [address] Xr Imaging Referral ID Status Reason Start Date Expiration Date V isits Requested Visits Authorized [id number] Closed Auto-Generate d Referral 12/28/2021 01/27/2023 1 1 [facility] (n[facility])* Diagnostic Procedure Only (Routine) - Authorized Specialty Diagnoses / Procedures Referred By Contac t Referred To Contact US IMAGING Diagnoses Pelvic pain in female Procedures US FEMALE PELVIS TRANSVAG US TRANSVAGINAL Antonieta Farrell MD [address] [place] [address] Us Imaging Referral ID Status Reason Start Date Expiration Date Visits Requested Visits Authorized [id number] Authorized Auto-Generat ed Referral 02/03/2023 03/04/2024 1 1 [facility] for referral (narrative)* Diagnostic Procedure Only (Routine) - Closed Specialty Diagnoses / Procedures Referred By Contac t Referred To Contact US IMAGING Diagnoses Pelvic pain in female Procedures US FEMALE PELVIS TRANSVAG US TRANSVAGINAL Antonieta Farrell MD [address] [place] [address] Us Imaging [facility] Referral ID Status Reason Start Date Expiration Date V isits Requested Visits Authorized [id number] Closed Auto-Generate d Referral 02/03/2023 03/04/2024 1 1 [facility] for referral (narrative)* Outpatient Procedure (Routine) - Authorized Specialty Diagnoses / Procedures Referred By Contac t Referred To Contact [facility] Diagnoses Bilateral carpal tunnel syndrome Procedures EMG(NEURO/NI) NERVE CONDUCTION STUDIES 9-10 STUDIES Sanjana Pugh DO [address] [place] [address] Neurological [facility] [place] [address] Referral ID Status Reason Start Date Expiration Date Visits Requested Visits Authorized [id number] Authorized Auto-Generat ed Referral 03/11/2024 07/06/2024 1 1 [facility] for referral (narrative)* Diagnostic Procedure Only (Urgent) - Closed Specialty Diagnoses / Procedures Referred By Contac t Referred To Contact XR IMAGING Diagnoses Acute pain of left knee Procedures XR KNEE GENERAL 4V AP BOTH/PA BOTH/LAT/MERC LEFT RADIOLOGIC EXAM KNEE COMPLETE 4/MORE VIEWS Yosi Payne APRN.WELDING MACHINE OPERATOR FRICTION [address] [place] [address] [place] [address] Referral ID Status Reason Start Date Expiration Date V isits Requested Visits Authorized [id number] Closed Auto-Generate d Referral 12/28/2021 01/27/2023 1 1 * Diagnostic Procedure Only (Urgent) - Closed Specialty Diagnoses / Procedures Referred By Contac t Referred To Contact XR IMAGING Diagnoses Injury of left ankle, initial encounter Procedures XR ANKLE GENERAL 3V AP/LAT/OBL LEFT RADEX ANKLE COMPLETE MINIMUM 3 VIEWS Yosi Payne APRN.WELDING MACHINE OPERATOR FRICTION [address] [place] [address] [place] [address] Referral ID Status Reason Start Date Expiration Date V isits Requested Visits Authorized [id number] Closed Auto-Generate d Referral 12/28/2021 01/27/2023 1 1 [facility]Reason for referral (narrative)No reason for referral information availableWThe [facility] Work Phone: Reason for visit Narrative* Diagnostic Procedure Only (Urgent) - Closed Specialty Diagnoses / Procedures Referred By Contac t Referred To Contact XR IMAGING Diagnoses Acute pain of left knee Procedures XR KNEE GENERAL 4V AP BOTH/PA BOTH/LAT/MERC LEFT RADIOLOGIC EXAM KNEE COMPLETE 4/MORE VIEWS Yosi Payne APRN.WELDING MACHINE OPERATOR FRICTION [address] [place] [address] [place] [address] Referral ID Status Reason Start Date Expiration Date V isits Requested Visits Authorized [id number] Closed Auto-Generate d Referral 12/28/2021 01/27/2023 1 1 [facility] for visit Narrative* Diagnostic Procedure Only (Routine) - Closed Specialty Diagnoses / Procedures Referred By Contac t Referred To Contact [facility] Diagnoses History of ectopic Encounter for test, result positive (HCC) Procedures OBSTETRIC ULTRASOUND WHI US PREG UTERUS AFTER 1ST TRIMEST GESTATION Reji Ding MD [address] [place] [address] Phone: tel: fax: [facility] [address] [place] [address] Referral ID Status Reason Start Date Expiration Date V isits Requested Visits Authorized [id number] Closed Auto-Generate d Referral 11/01/2024 11/01/2025 1 1 [facility] Summary Purpose Family History No Family History Records FoundNo Family History Records FoundNo Family History Records FoundNo Family History Records Found Advance Directives No Advanced Directives Records FoundDocuments on File Type Date Recorded 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 No November 11, 2024 11:49am Health Concerns Infection Onset Date Last Indicated Resolved Time COVID-19 Rule-Out 12/25/2022 12/25/2022 12/26/2022 3:07 AM EDT Chief Complaint and Reason for Visit Chief Complaint FLANK Chief Complaint headache Chief Complaint Admit Date FLANK November 11, 2024 11:49a m Additional Source Comments INFORMATION SOURCE (unrecogn ized section and content) DATE CREATED AUTHOR 02/02/2020 [facility] DATE CREATED AUTHOR AUTHOR'S ORGANIZ ATION 05/12/2021 [facility] DATE CREATED AUTHOR AUTHOR'S ORGANIZ ATION 11/18/2024 [facility] DATE CREATED AUTHOR AUTHOR'S ORGANIZ ATION 05/04/2025 [facility] Source Comments (unrecognize d section and content) In the event this informatio n is protected by the Federal Confidentiality of Alcohol and Drug Abuse Patient Records regulations: The Federal rules restrict any use of the information to criminally investigate or prosecute any alcohol or drug abuse patient.[facility] IncIn the event this information is protected by the Federal Confidentiality of Alcohol and Drug Abuse Patient Records regulations: The Federal rules restrict any use of the information to criminally investigate or prosecute any alcohol or drug abuse patient.[facility] IncIn the event this information is protected by the Federal Confidentiality of Alcohol and Drug Abuse Patient Records regulations: The Federal rules restrict any use of the information to criminally investigate or prosecute any alcohol or drug abuse patient.[facility] IncIn the event this information is protected by the Federal Confidentiality of Alcohol and Drug Abuse Patient Records regulations: The Federal rules restrict any use of the information to criminally investigate or prosecute any alcohol or drug abuse patient.[facility] IncIn the event this information is protected by the Federal Confidentiality of Alcohol and Drug Abuse Patient Records regulations: The Federal rules restrict any use of the information to criminally investigate or prosecute any alcohol or drug abuse patient.[facility] IncIn the event this information is protected by the Federal Confidentiality of Alcohol and Drug Abuse Patient Records regulations: The Federal rules restrict any use of the information to criminally investigate or prosecute any alcohol or drug abuse patient.[facility] IncIn the event this information is protected by the Federal Confidentiality of Alcohol and Drug Abuse Patient Records regulations: The Federal rules restrict any use of the information to criminally investigate or prosecute any alcohol or drug abuse patient.[facility] IncIn the event this information is protected by the Federal Confidentiality of Alcohol and Drug Abuse Patient Records regulations: The Federal rules restrict any use of the information to criminally investigate or prosecute any alcohol or drug abuse patient.[facility] IncIn the event this information is protected by the Federal Confidentiality of Alcohol and Drug Abuse Patient Records regulations: The Federal rules restrict any use of the information to criminally investigate or prosecute any alcohol or drug abuse patient.[facility] IncIn the event this information is protected by the Federal Confidentiality of Alcohol and Drug Abuse Patient Records regulations: The Federal rules restrict any use of the information to criminally investigate or prosecute any alcohol or drug abuse patient.[facility] IncIn the event this information is protected by the Federal Confidentiality of Alcohol and Drug Abuse Patient Records regulations: The Federal rules restrict any use of the information to criminally investigate or prosecute any alcohol or drug abuse patient.[facility] IncIn the event this information is protected by the Federal Confidentiality of Alcohol and Drug Abuse Patient Records regulations: The Federal rules restrict any use of the information to criminally investigate or prosecute any alcohol or drug abuse patient.[facility] IncIn the event this information is protected by the Federal Confidentiality of Alcohol and Drug Abuse Patient Records regulations: The Federal rules restrict any use of the information to criminally investigate or prosecute any alcohol or drug abuse patient.[facility] IncIn the event this information is protected by the Federal Confidentiality of Alcohol and Drug Abuse Patient Records regulations: The Federal rules restrict any use of the information to criminally investigate or prosecute any alcohol or drug abuse patient.[facility] IncIn the event this information is protected by the Federal Confidentiality of Alcohol and Drug Abuse Patient Records regulations: The Federal rules restrict any use of the information to criminally investigate or prosecute any alcohol or drug abuse patient.[facility] IncIn the event this information is protected by the Federal Confidentiality of Alcohol and Drug Abuse Patient Records regulations: The Federal rules restrict any use of the information to criminally investigate or prosecute any alcohol or drug abuse patient.[facility] IncIn the event this information is protected by the Federal Confidentiality of Alcohol and Drug Abuse Patient Records regulations: The Federal rules restrict any use of the information to criminally investigate or prosecute any alcohol or drug abuse patient.[facility] IncIn the event this information is protected by the Federal Confidentiality of Alcohol and Drug Abuse Patient Records regulations: The Federal rules restrict any use of the information to criminally investigate or prosecute any alcohol or drug abuse patient.[facility] IncIn the event this information is protected by the Federal Confidentiality of Alcohol and Drug Abuse Patient Records regulations: The Federal rules restrict any use of the information to criminally investigate or prosecute any alcohol or drug abuse patient.[facility] IncIn the event this information is protected by the Federal Confidentiality of Alcohol and Drug Abuse Patient Records regulations: The Federal rules restrict any use of the information to criminally investigate or prosecute any alcohol or drug abuse patient.[facility] IncIn the event this information is protected by the Federal Confidentiality of Alcohol and Drug Abuse Patient Records regulations: The Federal rules restrict any use of the information to criminally investigate or prosecute any alcohol or drug abuse patient.[facility] IncIn the event this information is protected by the Federal Confidentiality of Alcohol and Drug Abuse Patient Records regulations: The Federal rules restrict any use of the information to criminally investigate or prosecute any alcohol or drug abuse patient.[facility] IncIn the event this information is protected by the Federal Confidentiality of Alcohol and Drug Abuse Patient Records regulations: The Federal rules restrict any use of the information to criminally investigate or prosecute any alcohol or drug abuse patient.[facility] IncIn the event this information is protected by the Federal Confidentiality of Alcohol and Drug Abuse Patient Records regulations: The Federal rules restrict any use of the information to criminally investigate or prosecute any alcohol or drug abuse patient.[facility] the event this information is protected by the Federal Confidentiality of Alcohol and Drug Abuse Patient Records regulations: The Federal rules restrict any use of the information to criminally investigate or prosecute any alcohol or drug abuse patient.[facility] IncIn the event this information is protected by the Federal Confidentiality of Alcohol and Drug Abuse Patient Records regulations: The Federal rules restrict any use of the information to criminally investigate or prosecute any alcohol or drug abuse patient.[facility], IncIn the event this information is protected by the Federal Confidentiality of Alcohol and Drug Abuse Patient Records regulations: The Federal rules restrict any use of the information to criminally investigate or prosecute any alcohol or drug abuse patient.[facility] the event this information is protected by the Federal Confidentiality of Alcohol and Drug Abuse Patient Records regulations: The Federal rules restrict any use of the information to criminally investigate or prosecute any alcohol or drug abuse patient.[facility] IncIn the event this information is protected by the Federal Confidentiality of Alcohol and Drug Abuse Patient Records regulations: The Federal rules restrict any use of the information to criminally investigate or prosecute any alcohol or drug abuse patient.[facility] IncIn the event this information is protected by the Federal Confidentiality of Alcohol and Drug Abuse Patient Records regulations: The Federal rules restrict any use of the information to criminally investigate or prosecute any alcohol or drug abuse patient.[facility] IncIn the event this information is protected by the Federal Confidentiality of Alcohol and Drug Abuse Patient Records regulations: The Federal rules restrict any use of the information to criminally investigate or prosecute any alcohol or drug abuse patient.[facility] IncIn the event this information is protected by the Federal Confidentiality of Alcohol and Drug Abuse Patient Records regulations: The Federal rules restrict any use of the information to criminally investigate or prosecute any alcohol or drug abuse patient.[facility] IncIn the event this information is protected by the Federal Confidentiality of Alcohol and Drug Abuse Patient Records regulations: The Federal rules restrict any use of the information to criminally investigate or prosecute any alcohol or drug abuse patient.[facility], IncIn the event this information is protected by the Federal Confidentiality of Alcohol and Drug Abuse Patient Records regulations: The Federal rules restrict any use of the information to criminally investigate or prosecute any alcohol or drug abuse patient.[facility] IncIn the event this information is protected by the Federal Confidentiality of Alcohol and Drug Abuse Patient Records regulations: The Federal rules restrict any use of the information to criminally investigate or prosecute any alcohol or drug abuse patient.[facility], IncIn the event this information is protected by the Federal Confidentiality of Alcohol and Drug Abuse Patient Records regulations: The Federal rules restrict any use of the information to criminally investigate or prosecute any alcohol or drug abuse patient.[facility] IncIn the event this information is protected by the Federal Confidentiality of Alcohol and Drug Abuse Patient Records regulations: The Federal rules restrict any use of the information to criminally investigate or prosecute any alcohol or drug abuse patient.[facility], IncIn the event this information is protected by the Federal Confidentiality of Alcohol and Drug Abuse Patient Records regulations: The Federal rules restrict any use of the information to criminally investigate or prosecute any alcohol or drug abuse patient.[facility] IncIn the event this information is protected by the Federal Confidentiality of Alcohol and Drug Abuse Patient Records regulations: The Federal rules restrict any use of the information to criminally investigate or prosecute any alcohol or drug abuse patient.[facility] IncIn the event this information is protected by the Federal Confidentiality of Alcohol and Drug Abuse Patient Records regulations: The Federal rules restrict any use of the information to criminally investigate or prosecute any alcohol or drug abuse patient.[facility] IncIn the event this information is protected by the Federal Confidentiality of Alcohol and Drug Abuse Patient Records regulations: The Federal rules restrict any use of the information to criminally investigate or prosecute any alcohol or drug abuse patient.[facility] IncIn the event this information is protected by the Federal Confidentiality of Alcohol and Drug Abuse Patient Records regulations: The Federal rules restrict any use of the information to criminally investigate or prosecute any alcohol or drug abuse patient.[facility] IncIn the event this information is protected by the Federal Confidentiality of Alcohol and Drug Abuse Patient Records regulations: The Federal rules restrict any use of the information to criminally investigate or prosecute any alcohol or drug abuse patient.[facility] IncIn the event this information is protected by the Federal Confidentiality of Alcohol and Drug Abuse Patient Records regulations: The Federal rules restrict any use of the information to criminally investigate or prosecute any alcohol or drug abuse patient.[facility] IncIn the event this information is protected by the Federal Confidentiality of Alcohol and Drug Abuse Patient Records regulations: The Federal rules restrict any use of the information to criminally investigate or prosecute any alcohol or drug abuse patient.[facility] IncIn the event this information is protected by the Federal Confidentiality of Alcohol and Drug Abuse Patient Records regulations: The Federal rules restrict any use of the information to criminally investigate or prosecute any alcohol or drug abuse patient.[facility], IncIn the event this information is protected by the Federal Confidentiality of Alcohol and Drug Abuse Patient Records regulations: The Federal rules restrict any use of the information to criminally investigate or prosecute any alcohol or drug abuse patient.[facility], IncIn the event this information is protected by the Federal Confidentiality of Alcohol and Drug Abuse Patient Records regulations: The Federal rules restrict any use of the information to criminally investigate or prosecute any alcohol or drug abuse patient.[facility], IncIn the event this information is protected by the Federal Confidentiality of Alcohol and Drug Abuse Patient Records regulations: The Federal rules restrict any use of the information to criminally investigate or prosecute any alcohol or drug abuse patient.[facility], IncIn the event this information is protected by the Federal Confidentiality of Alcohol and Drug Abuse Patient Records regulations: The Federal rules restrict any use of the information to criminally investigate or prosecute any alcohol or drug abuse patient.[facility], IncIn the event this information is protected by the Federal Confidentiality of Alcohol and Drug Abuse Patient Records regulations: The Federal rules restrict any use of the information to criminally investigate or prosecute any alcohol or drug abuse patient.[facility], IncIn the event this information is protected by the Federal Confidentiality of Alcohol and Drug Abuse Patient Records regulations: The Federal rules restrict any use of the information to criminally investigate or prosecute any alcohol or drug abuse patient.[facility], IncIn the event this information is protected by the Federal Confidentiality of Alcohol and Drug Abuse Patient Records regulations: The Federal rules restrict any use of the information to criminally investigate or prosecute any alcohol or drug abuse patient.[facility], IncIn the event this information is protected by the Federal Confidentiality of Alcohol and Drug Abuse Patient Records regulations: The Federal rules restrict any use of the information to criminally investigate or prosecute any alcohol or drug abuse patient.[facility], IncIn the event this information is protected by the Federal Confidentiality of Alcohol and Drug Abuse Patient Records regulations: The Federal rules restrict any use of the information to criminally investigate or prosecute any alcohol or drug abuse patient.[facility], IncIn the event this information is protected by the Federal Confidentiality of Alcohol and Drug Abuse Patient Records regulations: The Federal rules restrict any use of the information to criminally investigate or prosecute any alcohol or drug abuse patient.[facility], IncIn the event this information is protected by the Federal Confidentiality of Alcohol and Drug Abuse Patient Records regulations: The Federal rules restrict any use of the information to criminally investigate or prosecute any alcohol or drug abuse patient.[facility], IncIn the event this information is protected by the Federal Confidentiality of Alcohol and Drug Abuse Patient Records regulations: The Federal rules restrict any use of the information to criminally investigate or prosecute any alcohol or drug abuse patient.[facility], IncIn the event this information is protected by the Federal Confidentiality of Alcohol and Drug Abuse Patient Records regulations: The Federal rules restrict any use of the information to criminally investigate or prosecute any alcohol or drug abuse patient.[facility], IncIn the event this information is protected by the Federal Confidentiality of Alcohol and Drug Abuse Patient Records regulations: The Federal rules restrict any use of the information to criminally investigate or prosecute any alcohol or drug abuse patient.[facility], IncIn the event this information is protected by the Federal Confidentiality of Alcohol and Drug Abuse Patient Records regulations: The Federal rules restrict any use of the information to criminally investigate or prosecute any alcohol or drug abuse patient.[facility], IncIn the event this information is protected by the Federal Confidentiality of Alcohol and Drug Abuse Patient Records regulations: The Federal rules restrict any use of the information to criminally investigate or prosecute any alcohol or drug abuse patient.[facility], IncIn the event this information is protected by the Federal Confidentiality of Alcohol and Drug Abuse Patient Records regulations: The Federal rules restrict any use of the information to criminally investigate or prosecute any alcohol or drug abuse patient.[facility] Reason for Visit (unrecogniz ed section and content) Reason Onset Date Comments Refill Request 12/12/2021 Reason Comments Ankle Injury L ankle and foot emiliana n, fell down stairs x3 days Knee Pain L knee pain, as abov e Reason Comments Vaginal Problem Reason Comments Results Reason Comments UTI Reason Comments Urinary Frequency burning with urinati on x 2 days Reason Comments Cough Head congestion x1 m onthST x5 days Reason Comments Vomiting With GUPTA and diarrhea x 1 day Some dizziness Reason Comments Pelvic Pain Reason Comments Results Reason Comments UTI Burning, tired, naus ea, frequent urination, lower abd pain, lower back pain Reason Comments Radiology US Specialty Diagnoses / Procedures Referred By Arielle zuleta Referred To Contact [facility] Diagnoses Pelvic pain in female Procedures US FEMALE PELVIS TRANSVAG US TRANSVAGINAL Antonieta Farrell MD [address] [place] [address] [place] [address] Referral ID Status Reason Start Date Expiration Date V isits Requested Visits Authorized [id number] Closed Auto-Generate d Referral 02/03/2023 03/04/2024 1 1 Reason Comments Mass Cyst on right inner thigh x 2 yrs, a white head popped up on it this morning Reason Comments Urinary Problem burning with urinati on x 1 day, low back pain x this am Reason Comments Nausea & Vomiting GUPTA, loss of appetite , lack of sleep, diarrhea x 3 days Reason Comments New Numbness Reason Onset Date Comments EMG 03/19/2024 Specialty Diagnoses / Procedures Referred By Contac t Referred To Contact [facility] Diagnoses Bilateral carpal tunnel syndrome Procedures EMG(NEURO/NI) NERVE CONDUCTION STUDIES 9-10 STUDIES Sanjana Pugh DO [address] [place] [address] [facility] [place] [address] [place] [address] Referral ID Status Reason Start Date Expiration Date V isits Requested Visits Authorized [id number] Closed Auto-Generate d Referral 03/11/2024 07/06/2024 1 1 Reason Comments Problem Visit Patient reported vag inal spotting x2 wks, +hpt, LPM 02/15/2024. Reason Comments Follow Up Bleeding and right s ided pain Reason Comments Nasal Congestion diarrhea, nausea, so re throat, dizziness off and on, headache and chills x 5 days Reason Comments Diarrhea Vomiting, stomach pa in x 4 days Reason Comments lower back and right hip pain X 3 days-h eavy lifting Reason Comments Low Back Pain right side x 1 week Reason Comments PRAF Reason Comments Orders Reason Comments US Specialty Diagnoses / Procedures Referred By Contac t Referred To Contact [facility] Diagnoses 8 weeks gestation of ([facility]) Procedures OBSTETRIC ULTRASOUND WHI US PREG UTERUS AFTER 1ST TRIMEST GESTATION Paola Hill, 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 FRICTION [address] [place] [address] Phone: tel: fax: [place] [address] Referral ID Status Reason Start Date Expiration Date V isits Requested Visits Authorized [id number] Closed Auto-Generate d Referral 11/30/2024 11/30/2025 1 1 Reason Comments Consult Specialty Diagnoses / Procedures Referred By Contac t Referred To Contact Diagnoses History of delivery, currently (HCC) Procedures CONSULT TO MATERNAL MEDI OFFICE/OUTPATIENT NEW HIGH MDM 60 MINUTES Marcia Farrell, CUSTOMER SALES DISTRIBUTOR.CNM [address] [place] [address] Phone: tel: fax: Referral ID Status Reason Start Date Expiration Date V isits Requested Visits Authorized [id number] Closed PCP Requested Referral Auto-Generated Referral 12/14/2024 12/14/2025 1 1 Reason Onset Date Comments Care 12/28/2024 Reason Onset Date Comments Care 01/26/2025 Specialty Diagnoses / Procedures Referred By Contac t Referred To Contact [facility] Diagnoses History of delivery, currently (HCC) Procedures OBSTETRIC ULTRASOUND WHI US PREG UTERUS AFTER 1ST TRIMEST GESTATION Scott Alcazar MD [address] [place] [address] Phone: tel: fax: [address] [address] Referral ID Status Reason Start Date Expiration Date V isits Requested Visits Authorized [id number] Closed Auto-Generate d Referral 12/28/2024 12/28/2025 1 1 Reason Comments Urinary Problem Burning and frequenc y x 3 days Reason Comments Care Reason Onset Date Comments Care 02/23/2025 Specialty Diagnoses / Procedures Referred By Contac t Referred To Contact [facility] Diagnoses 20 weeks gestation of (HCC) Supervision of high risk , antepartum (HCC) Procedures OBSTETRIC ULTRASOUND WHI US PREG UTERUS AFTER 1ST TRIMEST GESTATION Marcia Farrell APRN.CNM [address] [address] Phone: tel: fax: [address] [address] Referral ID Status Reason Start Date Expiration Date V isits Requested Visits Authorized [id number] Closed Auto-Generat ed Referral Patient Cleared - Admin/Chairm an/Director advise to proceed or did not respond 02/23/2025 07/06/2025 1 1 Reason Comments OB UTI Specialty Diagnoses / Procedures Referred By Contac t Referred To Contact [facility] Diagnoses Supervision of high risk , antepartum (HCC) Hx of delivery, currently (HCC) Procedures OBSTETRIC ULTRASOUND WHI US PREG UTERUS AFTER 1ST TRIMEST GESTATION Marcia Farrell APRN.CNM [address] [place] [address] Phone: tel: fax: [facility] [place] [address] Referral ID Status Reason Start Date Expiration Date V isits Requested Visits Authorized [id number] Closed Auto-Generate d Referral 03/11/2025 02/23/2026 1 1 Reason Comments Patient Update Reason Onset Date Comments Care 03/14/2025 Reason Onset Date Comments Care 03/11/2025 Reason Onset Date Comments Care 03/22/2025 Care Teams (unrecognized sec tion and content) Voice Coach Relationship Specialty Start Date End Date Melissa Cabezas [address] [place] [address] PCP - General Pediatrics 02/04/14 Voice Coach Relationship Specialty Start Date End Date Melissa Cabezas [address] [place] [address] PCP - General Pediatrics 02/04/14 Voice Coach Relationship Specialty Start Date End Date Melissa Cabezas [address] [place] [address] PCP - General Pediatrics 02/04/14 Voice Coach Relationship Specialty Start Date End Date Melissa Cabezas [address] [place] [address] PCP - General Pediatrics 02/04/14 Voice Coach Relationship Specialty Start Date End Date CabezasMelissa Tara [address] [place] [address] PCP - General Pediatrics 02/04/14 Voice Coach Relationship Specialty Start Date End Date Pascual Melissa Tara [address] [place] [address] PCP - General Pediatrics 02/04/14 Voice Coach Relationship Specialty Start Date End Date CabezasDavidpreeti Pacheco [address] [place] [address] PCP - General Pediatrics 02/04/14 Voice Coach Relationship Specialty Start Date End Date Melissa Cabezas [address] [place] [address] PCP - General Pediatrics 02/04/14 Voice Coach Relationship Specialty Start Date End Date CabezasDavidpreeti Pacheco [address] [place] [address] PCP - General Pediatrics 02/04/14 Voice Coach Relationship Specialty Start Date End Date PascualDavidpreeti Pacheco [address] [place] [address] PCP - General Pediatrics 02/04/14 Voice Coach Relationship Specialty Start Date End Date Pascual Melissa Ann [address] [place] [address] PCP - General Pediatrics 02/04/14 Team Status: Active Member Role Status Dates Dr. Melissa Cabezas MD Family Provider Active Dr. Melissa Cabezas MD Primary Care Provider Active Team Status: Inactive Member Role Status Dates Dr. Melissa Cabezas MD Primary Care Provider Active Dr. Jonathan Rush MD Emergency Provider Active Voice Coach Relationship Specialty Start Date End Date Pascual Melissa Ann [address] [place] [address] PCP - General Pediatrics 02/04/14 Voice Coach Relationship Specialty Start Date End Date Melissa Cabezas [address] [place] [address] PCP - General Pediatrics 02/04/14 Voice Coach Relationship Specialty Start Date End Date Melissa Cabezas [address] [place] [address] PCP - General Pediatrics 02/04/14 Voice Coach Relationship Specialty Start Date End Date Melissa Cabezas [address] [place] [address] PCP - General Pediatrics 02/04/14 Voice Coach Relationship Specialty Start Date End Date Melissa Cabezas [address] [place] [address] PCP - General Pediatrics 02/04/14 Voice Coach Relationship Specialty Start Date End Date Melissa Cabezas [address] [place] [address] PCP - General Pediatrics 02/04/14 Voice Coach Relationship Specialty Start Date End Date Melissa Cabezas MD [address] [place] [address] PCP - General Pediatrics 02/04/14 Voice Coach Relationship Specialty Start Date End Date Melissa Cabezas MD [address] [place] [address] PCP - General Pediatrics 02/04/14 Voice Coach Relationship Specialty Start Date End Date Melissa Cabezas MD [address] [place] [address] PCP - General Pediatrics 02/04/14 Team Status: Inactive Member Role Status Dates Dr. Melissa Cabezas MD Primary Care Provider Active Dr. Eze Norman DO Emergency Provider Active Voice Coach Relationship Specialty Start Date End Date Melissa Cabezas MD [address] [place] [address] PCP - General Pediatrics 02/04/14 Voice Coach Relationship Specialty Start Date End Date Melissa Cabezas MD [address] [place] [address] PCP - General Pediatrics 02/04/14 Voice Coach Relationship Specialty Start Date End Date Melissa Cabezas MD [address] [place] [address] PCP - General Pediatrics 02/04/14 Voice Coach Relationship Specialty Start Date End Date Melissa Cabezas MD [address] [place], [place] [address] PCP - General Pediatrics 02/04/14 Voice Coach Relationship Specialty Start Date End Date Melissa Cabezas MD [address] [place], [place] [address] PCP - General Pediatrics 02/04/14 10/13/24 Team Status: Active Member Role Status Dates Dr. Melissa Cabezas MD Primary Care Provider Active Team Status: Inactive Member Role Status Dates Dr. Melissa Cabezas MD Primary Care Provider Active Start: November 11, 2024 End: November 11, 2024 Michele Mar MD Emergency Provider Active Star t: November 11, 2024 End: November 11, 2024 Goals (unrecognized section and content) Goals may be documented in a n alternate sectionGoals may be documented in an alternate sectionGoals may be documented in an alternate section FOR RECORDS PERTAINING TO PATIENTS WHO ARE OR HAVE BEEN ENROLLED IN A CHEMICAL DEPENDENCY/SUBSTANCEABUSE PROGRAM, SOME INFORMATION MAY BE OMITTED. This clinical summary was aggregated from multiple sources. Caution should be exercised in using it in the provision of clinical care. This summary normalizes information from multiple sources, and as a consequence, information in this document may materially change the coding, format and clinical context of patient data. In addition, data may be omitted in some cases. CLINICAL DECISIONS SHOULD BE BASED ON THE PRIMARY CLINICAL RECORDS. [facility] [employer] provides no warranty or guarantee of the accuracy or completeness of information in this document.
[2025-05-14 14:11] VITALS: BP 118/69; PULSE 107; PULSE 108; RESP 16; TEMP 36.8; O2SAT 98
[2025-05-14] MEDS: Betamethasone/Betamethasone 30 MG/5 ML Vial 12 MG IM (14:23)
--- NOTE | 2025-05-17 19:33 | OB.TRI.HP_ITS ---
HPI - General General Date of Admission: 05/14/25 Date of Service: 05/14/25 HPI Narrative DONYA SCHWAB, is a 24 F who presents for the Celestone injection for threatened labor. [facility] Medical History IBS (irritable bowel syndrome) Depression GERD (gastroesophageal reflux disease) Home Medications Medication Instructions Recorded Last Taken Type valacyclovir 1 gram tablet 1,000 mg PO DAILY PRN hsv 0 11/11/20 05/01/21 06:30 History (Valtrex) suwoksym-zop-Gp-FA 1 mg 1 tab PO DAILY pregna ncy 03/07/21 05/13/25 08:00 History tablet 1 TAB escitalopram oxalate 10 mg tablet 10 mg PO DAILY 05/1405/12/25 08:00 History (Lexapro) 10 mg ferrous sulfate 325 mg (65 mg 325 mg PO BID 05/14/25 1 07/13/24 08:00 History iron) tablet (FeroSul) 325 mg Allergy/AdvReac Type Severity Reaction Status Date / Time Latex, Natural Rubber AdvReac Rash Verified 05/14/25 14:12 Social History Smoking Status: Current every day smoker tobacco type: e-cigarettes History Elective abortions Hx Para 0 Spontaneous abortions Hx # Term Pregnancies Ectopic pregnancies Hx # Pregnancies Multiple births # of living children Assessment & Plan (1) 32 weeks gestation of : PLAN: FHTS + Given second dose of celestone. F/u as scheduled or return prn (2) Threatened labor: QUALIFIERS: Trimester: second trimester Qualified Code(s): O47.02 - False labor before 37 completed weeks of gestation, second trimester
== END 2025-05-14 14:27 | disposition home or self-care (01) ==
LOC: WPOUT 14:00 → WP 14:01
PROVIDERS: PCP Pediatrics; Referring Provider Obstetrics & Gynecology; Visit Provider Obstetrics & Gynecology
DX: O47.03 False labor before 37 completed weeks of gestation, third trimester (principal); Z3A.32 32 weeks gestation of pregnancy; O99.343 Other mental disorders complicating pregnancy, third trimester; F32.A Depression, unspecified
CPT/HCPCS: 96372; 99221; G0378; J0702

== ENCOUNTER 2025-06-30 20:56 | Inpatient (IN) | payer MEDICAID, SELFPAY ==
[2025-06-30] VITALS (46 sets, daily range): BP systolic 115–136; BP diastolic 74–94; PULSE 74–115; RESP 16–18; TEMP 36.6; O2SAT 90–100; BMI 23.9
--- OUTSIDE RECORDS SUMMARY | 2025-06-30 19:28 | XMS RPT_ITS | CCD ---
Author Organization [facility] ion [facility] Care Team Providers Care Pick Up Operator Name Role Phone Melissa Cabezas Primary Care Provider Unavailable Primary Care Provider Billy Cabezas MD, Melissa Pacheco Primary Care Provider Pascual GODINEZ, Dr. Torres Primary Care Provider Michele Mar MD Emergency Provider ANTONIETA FARRELL Admitting Unavail able EMY GORMAN Attending Unavailable Melissa Cabezas Primary Care Unavailable Michele Mar Attending Unavailable Melissa Cabezas Primary Care Unavailable Toña Reji Referring Unavailable Reji Ding Attending Unavailable SCOTT ALCAZAR Referring Unavailable NILDA JEAN Attending Unavailable ODETTE LINDSAY Attending Unavailable ODETTE LINDSAY Referring Unavailable PLOTTS, MARCIA Referring Unavailable ALLEN WILSON Attending Unavailable MELISSA CABEZAS Primary Care Unavailable ESHA PORTER Attending Unavailable SERGIO, PAOLA Referring Unavailable PLOTTS, MARCIA Referring Unavailable NILDA JEAN Attending Unavailable SERGIO, PAOLA Referring Unavailable SERGIO, PAOLA Referring Unavailable ANTONIETA FARRELL Attending Unavail able ESHA PORTER Attending Unavailable PLOTTS, MARCIA Attending Unavailable NILDA JEAN Referring Unavailable ANN MARIE ARIZA Attending Unavailable SELF Referring Unavailable YOSI PAYNE Attending Unavailable SERGIO, PAOLA Attending Unavailable TOÑA REJI L Referring Unavailable PLOTTS, MARCIA Referring Unavailable PLOTTS, MARCIA Referring Unavailable PLOTTS, MARCIA Referring Unavailable NILDA JEAN Attending Unavailable ELENA ROBERTSON Attending Unavailable PLOTTS, MARCIA Attending Unavailable REJI DING Attending Unavailable TOÑA REJI L Referring Unavailable TOÑA REJI L Referring Unavailable SERGIO, PAOLA Referring Unavailable PLOTTS, MARCIA Attending Unavailable BUD MARCIA Referring Unavailable SERGIO, PAOLA Referring Unavailable LAPPEN, SCOTT R Referring Unavailable ANTONIETA FARRELL Attending Unavail able MARCIA FARRELL Attending Unavailable SERGIO, PAOLA Referring Unavailable LAPPEN, SCOTT R Attending Unavailable MELISSA CABEZAS Primary Care Unavailable MARCIA FARRELL Attending Unavailable SERGIO, PAOLA Referring Unavailable KAMILLA PORTER Attending Unavailable SERGIO, PAOLA Referring Unavailable Allergies Allergy Classification Reported Allergen(s) Allergy Type Date of Onset Reaction(s) Facility (20 sources) Adhesive Tape; Translations: [ADHESIVE TAPE (ROSINS)] Allergy to substance 4 [facility] Work Phone: (20 sources) Latex; Translations: [LATEX] Drug Allergy [facility] (3 sources) natural latex rubber Propensity to adverse reactions 3 [facility] (1 source) natural latex rubber Drug allergy (disorder) 5 [facility] Repository Medications Current Medications Medication Drug Class(es) Dates Sig (Normalized) Sig (Original) amoxicillin 500 mg oral capsule (1 source) Penicillin-class Antibacterial Start: 07-05-2022 End: 07-15-2022 take 1 capsule by mouth twice daily amoxicillin (POLYMOX, AMOXIL) 500 mg capsule Take 1 capsule by mouth twice daily for 10 days. 20 capsule 0 07/05/2022 07/15/2022 Active Comment on above: Take 1 capsule by mo ut twice daily for 10 days. aspirin 81 [...] Comment on above: Take 1 tablet by [facility] two times a day for 7 days. [...] Comment on above: Take 1 tablet by [facility] twice daily for 7 days. mupirocin 0.02 [...] 6 hours as needed for nausea/vomiting. PNV Comb.Ng42-Bptq,Carbony l-FA 29 mg iron- 1 mg tab (8 sources) Start: 03-26-20 End: 10-26-19 take 1 tablet by mouth once daily PNV Comb.Lq80-Pqtv,Carbon yl-FA 29 mg iron- 1 mg tab Take 1 tablet by mouth once daily. 30 tablet 4 03/26/2024 10/25/2024 Discontinued (Discontinued by Patient) Start: 03-26-2024 take 1 tablet by marcela th once daily PNV Comb.Du19-Vtim,Carbonyl-FA 29 mg iro n- 1 mg tab Take 1 tablet by mouth once daily. 30 tablet 4 03/26/2024 Active Rzsypify-Kj-Mne-Fe-FA tab (20 sources) Start: 10-25-2024 take 1 tablet by mouth once daily Fqevhnxd-Iz-Fqg-Fe-FA tab Take 1 tablet by mouth once daily. 30 tablet 5 10/25/2024 Active Start: 12-13-2021 End: 08-12-2022 take 1 tablet by mouth once daily Vuqmutgp-Ee-Jxc-Fe-FA tab Take 1 tablet by mouth once daily. 30 tablet 11 12/13/2021 08/12/2022 Discontinued (Other) Start: 12-13-2021 take 1 tablet by marcela th once daily Klocsmps-Zk-Wnp-Fe-FA tab Take 1 tablet by mouth once daily. 30 tablet 11 12/13/2021 Active Start: 11-21-2020 End: 12-12-2021 take 1 tablet by mouth once daily Kysmnsyb-Lr-Vjk-Fe-FA tab Indications: 8 weeks gestation of Take 1 tablet by mouth once daily. 30 tablet 11 11/21/2020 12/12/2021 Discontinued Comment on above: Take 1 tablet by marcela once daily. Efcyajin-Usw-Ez-Fa () 1 mg Tablet (3 sources) Start: 03-07-2021 take 1 tablet by mouth once daily Pglcszev-Cmk-Kt-Fa () 1 mg Tablet Active 1 {tbl} PO DAILY March 07, 2021 12:00am Start: 03-07-2021 take 1 tablet by marcela th once daily Vzkatbxc-Vyj-Op-Fa () 1 mg Tablet Active 1 TABLET PO DAILY March 07, 2021 12:00am vit 19-jxqb-qclkj-dha (PRENATE MINI, FERR ASP GLYCIN,) 18-1-350 mg cap (20 sources) Start: 08-12-2022 End: 10-25-2024 take 1 capsule by mouth once daily vit 84-twuc-juqmn-dha (PRENATE MINI, FERR ASP GLYCIN,) 18-1-350 mg cap Take 1 Dose by mouth once daily. 30 capsule 12 08/12/2022 10/25/2024 Discontinued (Discontinued by Patient) Start: 08-12-2022 take 1 capsule by mo [facility] once daily vit 12-njal-bfkti-dha (PRENATE MINI, FERR ASP GLYCIN,) 18-1-350 mg [...] on above: Take 2 tablets by mo [facility] every 4 hours as needed for pain. [...] Comment on above: Take 1 capsule by [facility] twice daily for 5 days. Take 1 capsule by mo [facility] twice daily with meals for 7 days. Take 1 capsule by [facility] two times a day for 7 days. norethindrone 0.35 mg oral tablet (11 sources) Start: 1 End: 3 take 1 tablet by mouth once daily Norethindrone, Contraceptive, (ORTHO MICRONOR) 0.35 mg tablet Take 1 tablet by mouth once daily. 84 tablet 1 06/13/2021 08/12/2022 Discontinued (Other) Comment on above: Take 1 tablet by [facility] once daily. omeprazole 20 mg delayed [...] Comment on above: Take 1 capsule by [facility] once daily. Take 20 mg by mouth once daily. phenazopyridine hydrochloride 200 mg oral tablet (6 sources) Start: 022 take 1 tablet by mouth three times daily as needed phenazopyridine (PYRIDIUM, GERIDIUM) 200 mg tablet Indications: Burning with urination Take 1 tablet by mouth three times daily as needed. 9 tablet 0 02/14/2022 Active Comment on above: Take 1 tablet by marcela three times daily as needed. Progesterone (3 sources) Progesterone Start: End: progesterone micronized Discontinued May 02, 2021 12:00am [...] Classification Problem Date Documented Da te Episodic/Chronic Abdominal pain (4 sources) Pain in female pelvis; Translations: [Pelvic and perineal pain] 01-30-2023 Episodic Blindness and vision defects (2 sources) Blurring [...] (7 sources) Dehydration; Translations: [Dehydration] 03-04-2019 Episodic Headache; including migraine (3 sources) Migraine; [...] 03-29-2021 Episodic Other complications of (1 source) Urinary tract infection in ; Translations: [Unspecified infection of urinary tract in , unspecified trimester] 03-14-2025 Episodic Other complications of (1 source) Uterine contractions problem; Translations: [Other specified related conditions, unspecified trimester] 03-22-2025 Episodic Other complications of (1 source) Supervision of high risk , unspecified, third trimester; Translations: [Supervision of high risk in third trimester (HCC)] Onset: 5 Episodic Other complications of (1 source) Other specified related conditions, unspecified trimester; Translations: [Pelvic pressure in (HCC)] Onset: 5 Episodic Other complications of (1 source) Supervision of high risk , unspecified, unspecified trimester; Translations: [Supervision of high risk , antepartum (HCC)] Onset: 5 Episodic Other complications of (1 source) Supervision of high risk , unspecified, second trimester; Translations: [Supervision of high risk in second trimester (HCC)] Onset: 5 Episodic Other complications of (1 source) Unspecified infection of urinary tract in , unspecified trimester; Translations: [UTI (urinary tract infection) in , antepartum (HCC)] Onset: 5 Episodic Other connective tissue disease [...] source) Folliculitis; Translations: [Follicular disorder, unspecified] Episodic Other upper respiratory infections (3 sources) Pharyngitis; Translations: [Acute pharyngitis, unspecified] Onset: Episodic Residual codes; unclassified (6 sources) Gestation [...] 03-22-2025 Episodic Residual codes; unclassified (1 source) 32 weeks gestation of ; Translations: [32 weeks gestation of (HCC)] Onset: Episodic Residual codes; unclassified (1 source) 30 [...] 5 Episodic Residual codes; unclassified (1 source) Pain, unspecified; Translations: [Generalized body aches] Onset: 5 Episodic Residual codes; unclassified (1 source) 20 weeks gestation of ; Translations: [20 weeks gestation of ([facility])] Onset: 5 Episodic Skin and subcutaneous tissue infections (1 source) Infection of skin; Translations: [Local infection of the skin and subcutaneous tissue, unspecified] 08-22-2023 Episodic Spondylosis; intervertebral disc disorders; other back problems (10 sources) Neck pain; Translations: [Cervicalgia] 11-12-2020 Episodic Sprains and strains (1 source) Lower back injury; Translations: [Strain of muscle, fascia and tendon of lower back, initial encounter] 12-22-2023 Episodic Superficial injury; contusion (3 sources) Contusion of flank; Translations: [Contusion of abdominal wall, initial encounter] 02-16-2019 Episodic Unclassified (20 sources) [facility] Education - COMMON Onset: 5 11-30-2024 Unclassified (20 sources) Education - [place] Onset: 5 11-30-2024 Unclassified (1 source) Pelvic pressure in ([facility]); Translations: [Pelvic pressure in ([facility])] Onset: 5 Unclassified (1 source) Acute midline low back pain without sciatica; Translations: [Acute midline low back pain without sciatica] Onset: 5 Urinary tract infections (19 sources) Urinary tract infectious disease; Translations: [Urinary tract infection, site not specified] Onset: 5 01-01-2023 Episodic Past or Other Problems Problem Classification Problem Date Documented Date Episodic/Chronic Early or threatened labor (20 sources) Premature delivery; Translations: [ labor with delivery, unspecified trimester, not applicable or unspecified] Onset: 06-18-2019 Resolved: 08-12-2022 08-06-2019 Episodic Genitourinary symptoms and ill-defined conditions (7 sources) Scalding pain on urination ; Translations: [Dysuria] Onset: 02-17-2025 Episodic Hemorrhage during ; abruptio placenta; placenta [...] Resolved: 11-30-2024 08-12-2022 Episodic Other complications of (1 source) Diseases of the digestive system complicating , first trimester; Translations: [Diseases of the digestive system complicating , first trimester] Onset: 11-17-2024 Episodic Other complications of (2 sources) Supervision [...] 05-02-2021 Episodic Comment on above: @ 31&1 Polyhydramnios and other problems of amniotic cavity [...] 12-28-2024 Episodic Residual codes; unclassified (1 source) 8 weeks gestation of ; Translations: [8 weeks gestation of (HCC)] Onset: 02-10-2025 Episodic Residual codes; unclassified (1 source) 18 weeks gestation of ; Translations: [18 weeks gestation of (HCC)] Onset: 02-10-2025 Episodic Residual codes; unclassified (1 source) 16 weeks gestation of ; Translations: [16 weeks gestation of (HCC)] Onset: 01-26-2025 Episodic Residual codes; unclassified (1 source) 12 weeks gestation of ; Translations: [12 weeks gestation of (HCC)] Onset: 12-28-2024 Episodic Residual codes; unclassified (1 source) Personal history of other complications of , childbirth and the puerperium; Translations: [History of ectopic ] Onset: 11-05-2024 Episodic Screening and history of mental health and substance abuse codes (20 sources) H/O: depression; Translations: [Personal history of other mental and behavioral disorders] Onset: 02-04-2019 Resolved: 08-06-2019 03-17-2021 Episodic Substance-related disorders (20 sources) History of clinical finding in subject; Translations: [History of marijuana use] Onset: 02-04-2019 Resolved: 03-11-2025 03-17-2021 Chronic Viral infection (3 sources) Viral disease; Translations: [Viral infection, unspecified] Onset: 11-24-2024 Episodic Results Test Name Value Interpretation Reference Range Facility GLUCOSE GESTATIONAL, 1 HOURo n 05-18-2025 Glucose 1 Hr post Unsp challenge [Mass/Vol] 116 mg/dL Normal 74-179 [facility] Comment on above: Order Comment: Zachery jin Type: BLOOD SPECIMENOrdering Facility: [facility] Address: [address] [place] [address] Result Comment: [facility] Congress of Obstetricians and Gynecologists (Noelle/Elaina) guidelines state gestational diabetes mellitus is present when 2 or more of the plasma glucose concentrations meet or exceed the following levels: fastin mg/dl, 1 hr: 180 mg/dl, 2 hr: 155 mg/dl, and 3 hr: 140 mg/dl. Performed By: #### G TGST1 ####[facility] [id number] [address] STATES OF [facility] GLUCOSE GESTATIONAL, FASTING on 05-18-2025 Glucose post fast [Mass/Vol] 76 mg/dL Normal 74-94 [facility] Comment on above: Order Comment: Zachery jin Type: BLOOD SPECIMENOrdering Facility: [facility] Address: [address] [place] [address] Result Comment: [facility] Congress of Obstetricians and Gynecologists (Noelle/Elaina) guidelines state gestational diabetes mellitus is present when 2 or more of the plasma glucose concentrations meet or exceed the following levels: fastin mg/dl, 1 hr: 180 mg/dl, 2 hr: 155 mg/dl, and 3 hr: 140 mg/dl. Performed By: #### G TGSTF ####[facility] [id number] [address] OF [place] CNCOon 05-17-2025 CNCO Letter Text Normal [facility] OB Triage Physician Noteon 1 07-17-2024 OB Triage Physician Note [facility] Medical Records Department [address] [place] [address] OB Triage Physician Note 05/17/25 193 MR#: [id number] Acct: [id number] Name: BARBARA SCHWAB Rep #: [id number] : 2000 24 From: Reji Ding MD PCP: Dr. Melissa Cabezas MD Status:DEP CLI Y Location: [facility] HPI - General General Date of Admission: 05/14/25 Date of Service: 05/14/25 HPI Narrative BARBARA SCHWAB, is a 24 F who presents for the Celestone injection for threatened labor. [facility] Medical History IBS (irritable bowel syndrome) Depression GERD (gastroesophageal reflux disease) Home Medications ???Medication ???Instructions ???Recorded ???Last Taken ???Type valacyclovir 1 gram tablet 1,000 mg PO DAILY PRN hsv 11/11/20 05/01/21 06:30 History (Valtrex) zrqbavny-ols-Ld-FA 1 mg 1 tab PO DAILY 03/07/21 05/13/25 08:00 History tablet 1 TAB escitalopram oxalate 10 mg tablet 10 mg PO DAILY 05/14/25 05/12/25 08:00 History (Lexapro) 10 mg ferrous sulfate 325 mg (65 mg 325 mg PO BID 05/14/25 05/13/25 08 :00 History iron) tablet (FeroSul) 325 mg Allergy/AdvReac Type Severity Reaction Status Date / Time Latex, Natural Rubber AdvReac Rash Verified 05/14/25 14:12 Social History Smoking Status: Current every day smoker tobacco type: e-cigarettes History Elective abortions Hx Para 0 Spontaneous abortions Hx # Term Pregnancies Ectopic pregnancies Hx # Pregnancies Multiple births # of living children Assessment Plan (1) 32 weeks gestation of : PLAN: FHTS + Given second dose of celestone. F/u as scheduled or return prn (2) Threatened labor: QUALIFIERS: Trimester: second trimester Qualified Code(s): O47.02 - False labor before 37 completed weeks of gestation, second trimester 05/17/251934 Date Reji Ding MD Cosigner Signature (if applicable): Date __ CC: Dr. Melissa Cabezas MD; Dr. Reji Ding MD Signed Normal [facility] Bacteria Ur Culton 5 Bacteria identified Cx Nom (U) ORGANISM ID: 1 10,000 -<50,000 CFU/ml Normal urogenital jerod Normal [facility] Comment on above: Performed By: #### 6 30-4 ####[facility] MA[facility] LABCLIA [id number] [address] HISTORY PHYSICALon 5 HISTORY PHYSICAL HNO ID: [id number] Author: EMY GORMAN MD Service: Obstetrics Author Type: Physician Type: H&P Filed: 05/14/2025 06:32 Note Text: OBSTETRICS HISTORY AND PHYSICAL SERVICE DATE: May 13, 2025 SERVICE TIME: 11:40 PM Subjective Patient's stated reason for arrival: went to the doctors office for carmen marlow contractions and i was 3cm dilated so they wanted me to come in to be seen. CHIEF COMPLAINT: HISTORY OF THE PRESENT ILLNESS: The patient is a 24 year old female, , who is at 32w1d with an ABRAHAM of 07/08/2025, by Ultrasound dating method. Patient is here after being transferred from OSH with concern for tPTL. She was evaluated earlier today in the office with tPTL. She made change from 1cm to 3cm. She denies any current contractions, vaginal bleeding, leakage of fluids. The following problems are present on admission at this time: Anemia Continue current outpatient treatment plan and current medications for these conditions, except where otherwise noted. HISTORY REVIEW PAST MEDICAL HISTORY Diagnosis Date Anemia during in second trimester (HCC) 05/18/2019 Depression GERD (gastroesophageal reflux disease) H/O seasonal allergies Herpes simplex virus (HSV) infection IBS (irritable bowel syndrome) PAST SURGICAL HISTORY Procedure Laterality Date SALPINGECTOMY Right 04/01/2024 laparoscopic, [facility] for ectopic FAMILY HISTORY Problem Relation Age of Onset Hypertension Mother other (insomnia) Mother other (fibromyalgia) Mother other (IBS) Mother Heart Attack Father Depression Sister No Known Problems Brother Diabetes Maternal Grandmother Hypertension Maternal Grandmother other ([place]'s Disease) Maternal Grandmother Cancer Maternal Grandfather Lung Hypertension Maternal Grandfather Alcohol/Drug Paternal Grandmother Alcohol/Drug Paternal Grandfather other (acid reflux) Son SOCIAL HISTORY[1] Obstetric History T0 L3 SAB0 IAB0 Ectopic1 Multiple1 Live Births3 Comment: had substance abuse problems, Has been sober 6 months as of 04/08/25 -Children services got involved and children were pulled from their care. Pt and her are currently working with Children services to get the kids back by October 2024. Nancy Atkins RN Name of Baby 1: Sp Alfred Date: 06/25/19 GA: 28w6d Type: Vaginal, Spontaneous Apgar1: Not recorded Apgar5: Not recorded Living: Living Name of Baby 2A: Carin Date: 05/08/21 GA: 32w0d Type: Vaginal, Spontaneous Apgar1: 8 Apgar5: 9 Living: Living Name of Baby 2B: Sorren Date: 05/08/21 GA: 32w0d Type: Vaginal, Spontaneous Apgar1: 8 Apgar5: 9 Living: Living Name of Baby 3: Not recorded Date: 03/2024 GA: 7w0d Type: Not recorded Apgar1: Not recorded Apgar5: Not recorded Living: Not recorded Name of Baby 4: Not recorded Date: Not recorded GA: Not recorded Type: Not recorded Apgar1: Not recorded Apgar5: Not recorded Living: Not recorded Active Non-Hospital Problems Diagnosis Date Noted Abnormal glucose complicating ([facility]) 04/08/2025 Overview Note: 05/03/25- Needs complete 3 hour GTT. Marcia Farrell APRN.LAUREN Antepartum anemia complicating in third trimester ([facility]) 04/08/2025 Overview Note: 9.7 on 04/08/25 Urinary tract infection without hematuria 02/23/2025 Overview Note: 02/23/25- Urine culture positive for proteus vulgaris. Started on Keflex. Will need test of cure at next visit. Marcia Farrell APRN.CNM Hx of delivery, currently ([facility]) 11/01/2020 Overview Note: 12/28/24 - needs serial cervical lengths starting at 16 weeks. MFM consult today. Kamilla Porter MD History of herpes genitalis 11/01/2020 Overview Note: 1Pt has a history of genital herpes. Discussed with pt. importance of reporting any outbreaks during should they occur.TKRN Supervision of high risk , antepartum ([facility]) 02/04/2019 Overview Note: Care Checklist Vaccines: [] Flu vaccine [] declined [] RSV vaccine 32 0/7 - 36 6/ (Mar - Aug) [] declined [] COVID vaccine [] declined [] TDaP 27-36 [] declined First trimester: [x] Dating US [x] 1st tri labs [x] Pap smear [] Carrier screening [x] declined [] NIPT screening [x] declined [x] First trimester anatomy scan [] declined [x] universal ASA ordered (start 12w-16w) [] declined [] M Power Consult [] not indicated [x] declined Second trimester: [x] Anatomy scan [] Mode of Delivery - [] Feeding - [] Pump ordered [] Diabetes screen [] CBC, RPR [] Behavioral Health Screening Third trimester (28-30 weeks): [] Consent [] Contraception [] Hoist Mechanic, car seat, safe sleep [] TeamBirth handout Third trimester (36-40 weeks): [] GBS [] Presentation - [] Scheduled [] yes - Hibiclens, pre-op instructions, CBC, TANDS ordered [] no [] HANDP [] Preferences worksheet [] Scanned in E (more content not included)... Normal [facility] ROUTINE, GROUP B ST REPTOCOCCUS BY PCRon 05-13-2025 ROUTINE, GROUP B STREPTOCOCCUS BY PCR Not detected Normal [facility] Comment on above: Performed By: #### G BPCR ####[facility] MAIN LABCLIA [id number] [place] [id number] [place] Bacteria Ur Iraida 5 Bacteria identified Cx Nom (U) ORGANISM ID: 1 >=100,000 CFU/ml Proteus vulgaris ORGANISM ID: 1 (PROTEUS VULGARIS) ANTIBIOTIC INTERPRETATION ROWDY STATUS REFERENCE RANGE Ampicillin R >=32 F Susceptible <=8 , [...] <=8 , Intermediate >8 , Resistant >16 Piperacillin/Tazoba c S <=4 F Susceptible <16 , Susceptible-Dose [...] , Intermediate >32 , Resistant >64 Abnormal [facility] Comment on above: Performed By: #### 6 30-4 ####[facility] MAIN LABCLIA [id number] [address] OF [facility] CNPNon 04-15-2025 CNPN Telephone (OGFVWE) ---- BARBARA SCHWAB ([id number]) 4 F Date Time Provider Department 04/15/25 NURSE INCOME AUDITOR [facility] During your visit today, we recorded the following information about you: Donaldo Dseai, RN 04/15/2025 1:30 PM Signed 3rd risk assessment form submitted 04/15/25 Donaldo Desai RN Allergies As of Date: 04/15/2025 Noted Allergy Reaction ADHESIVE TAPE (ROSINS) 02/04/2014 2 - Rash LATEX 2 - Rash Date Reviewed: 04/08/2025 Reviewed by: Nancy Atkins, LIO - Fully Assessed Reason for Visit: PRAF [4193] Prescriptions as of 04/15/2025 - melatonin 3 mg tablet TAKE 2 TABLETS BY MOUTH EVERY NIGHT AT BEDTIME NEEDED for sleep - aspirin, enteric coated (ECOTRIN LOW STRENGTH) 81 mg EC tablet Take 1 tablet by mouth once daily. - valACYclovir (VALTREX) 1 gram tablet Take 1 tablet by mouth as needed. - Kdqavnqh-Ap-Cpd-Fe- FA tab Take 1 tablet by mouth once daily. - escitalopram oxalate (LEXAPRO) 10 mg tablet Take 10 mg by mouth once daily. Problem List As Of Date 04/15/2025 Noted Resolved Supervision of high risk , antepartum *02/04/2019 History of marijuana use [F12.91] 02/04/2019 03/11/2025 Quit smoking [Z87.891] 02/04/2019 08/06/2019 History of depression [Z86.59] 02/04/2019 Family history of [place]'s disease [Z82.0] 02/04/2019 Patient request for diagnostic [...] Status:Closed by DONALDO DESAI on 04/15/25 Normal [facility] CBC panel Auto (Bld)on 04-08 Erythrocyte distribution width (RBC) [Ratio] 12.4 % Normal 11.5-15.0 [facility] Comment on above: Order Comment: Speci men Type: BLOOD SPECIMENOrdering Facility: [facility] Address: [address] [place] [id number] Performed By: #### 5 8410-2 ####[facility] [id number] [place] [address] [place] Hematocrit (Bld) [Volume fraction] 28.6 % Low 36.0-46.0 [facility] Comment on above: Order Comment: Speci men Type: BLOOD SPECIMENOrdering Facility: [facility] Address: [address] [place] [address] Performed By: #### 5 8410-2 ####[facility] [id number] [place] [address] [place] Hemoglobin (Bld) [Mass/Vol] 9.7 g/dL Low 11.5-15.5 [facility] Comment on above: Order Comment: Speci men Type: BLOOD SPECIMENOrdering Facility: [facility] Address: [address] [place] [address] Performed By: #### 5 8410-2 ####[facility] [id number] [address] [place] MCH (RBC) [Entitic mass] 28.9 pg Normal 26.0-34.0 [facility] Comment on above: Order Comment: Speci men Type: BLOOD SPECIMENOrdering Facility: [facility] Address: [address] [place] [address] Performed By: #### 5 8410-2 ####[facility]ITALNCLIA [id number] [address] [place] MCHC (RBC) [Mass/Vol] 33.9 g/dL Normal 30.5-36.[address] [facility] Comment on above: Order Comment: Speci men Type: BLOOD SPECIMENOrdering Facility: [facility] Address: [address] [place] [address] Performed By: #### 5 8410-2 ####[facility]ITALNCLIA [id number] [address] [place] MCV (RBC) [Entitic vol] 85.1 fL Normal 80.0-100.0 [facility] Comment on above: Order Comment: Speci men Type: BLOOD SPECIMENOrdering Facility: [facility] Address: [address] [place] [address] Performed By: #### 5 8410-2 ####[facility] MAXIMILIANO RONCLIEN [id number] [place] [address] [place] Nucleated RBC (Bld) [#/Vol] 10*3/uL Normal <0.01 [facility] Comment on above: Order Comment: Speci men Type: BLOOD SPECIMENOrdering Facility: [facility] Address: [address] [place] [address] Performed By: #### 5 8410-2 ####[facility] HOSPITALNCLICharles [id number] [place] [address] [place] Platelet mean volume (Bld) [Entitic vol] 10.0 fL Normal 9.0-12.7 [facility] Comment on above: Order Comment: Speci men Type: BLOOD SPECIMENOrdering Facility: [facility] Address: [address] [place] [address] Performed By: #### 5 8410-2 ####[facility]OSPITALNCLIA [id number] [place] [address] [place] Platelets (Bld) [#/Vol] 233 10*3/uL Normal 150-400 [facility] Comment on above: Order Comment: Speci men Type: BLOOD SPECIMENOrdering Facility: [facility] Address: [address] [place] [address] Performed By: #### 5 8410-2 ####[facility]PITALNCLIA [id number] [place] [address] [place] RBC (Bld) [#/Vol] 3.36 10*6/uL Low 3.90-5.20 [facility] Comment on above: Order Comment: Speci men Type: BLOOD SPECIMENOrdering Facility: [facility] Address: [address] [place] [address] Performed By: #### 5 8410-2 ####[facility] HOSPITALNCA [id number] [place] [address] [place] WBC (Bld) [#/Vol] 12.55 10*3/uL High 3.70-11.00 [facility] Comment on above: Order Comment: Speci men Type: BLOOD SPECIMENOrdering Facility: [facility] Address: [address] [place] [address] Performed By: #### 5 8410-2 ####[facility] [id number] [place] [address] [place] Ferritin SerPl-mCncon 2024 Ferritin [Mass/Vol] 9.8 ng/mL Low 14.7-205.1 [facility] Comment on above: Order Comment: Speci men Type: BLOOD SPECIMENOrdering Facility: [facility] Address: [address] [place] [address] Performed By: #### 2 276-4, 33811-8 ####[facility] LABCLIA [id number] [place] [address] [place] GESTATIONAL GLUCOSE SCREEN, 1-HOUR, 50 GRAM, NON-FASTINGon 04-08-2025 Glucose [Mass/Vol] 153 mg/dL High 74-134 [facility] Comment on above: Order Comment: Speci men Type: BLOOD SPECIMENOrdering Facility: [facility] Address: [address] [place] [address] Result Comment: [facility] Congress of Obstetricians and Gynecologists (Noelle/Elaina) guidelines state a gestational diabetes mellitus positive screen is made, in women not previously diagnosed with overt diabetes, when the 1 hr plasma glucose level is equal to or above 140 mg/dL. The [facility] Social Studies Department Chair and [facility] [place] recommends a 135 mg/dL cutoff. Performed By: #### G LTGST ####[facility] [id number] [place] [address] [place] Iron and Iron binding capaci ty panelon 04-08-2025 Iron [Mass/Vol] 22 ug/dL Low 41-186 [facility] Comment on above: Order Comment: Speci men Type: BLOOD SPECIMENOrdering Facility: [facility] Address: [address] [place] [address] Performed By: #### 2 276-4, 84429-8 ####[facility] LABIA [id number] [place] [address] [place] Iron binding capacity [Mass/Vol] 487 ug/dL High 232-386 [facility] Comment on above: Order Comment: Speci men Type: BLOOD SPECIMENOrdering Facility: [facility] Address: [address] [place] [address] Performed By: #### 2 276-4, 03654-3 ####[facility] LABIA [id number] [place] [address] [place] Iron/TIBC [Molar ratio] 4.5 % Low 15.0-57.0 [facility] Comment on above: Order Comment: Speci men Type: BLOOD SPECIMENOrdering Facility: [facility] Address: [address] [place] [address] Performed By: #### 2 276-4, 70744-3 ####[facility] LABIA [id number] [place] [address] [place] Reagin and Treponema pallidu m IgG and IgM [Interp]on 04-08-2025 T. pallidum IgG+IgM IA Ql (S) Non-Reactive Normal Nonreactive [facility] Comment on above: Order Comment: Speci men Type: BLOOD SPECIMENOrdering Facility: [facility] Address: [address] [place] [address] Performed By: #### 7 3752-8 ####[facility] LABCLIA [id number] [place] [address] [place] Reagin+T pallidum IgG+IgM Se rPl-Impon 04-08-2025 Reagin and Treponema pallidum IgG and IgM [Interp] Cannot exclude recent Treponemal infection if specimen collected within 7-10 days after appearance of suspect lesions or 2-3 weeks after an exposure. Clinical correlation is required. Normal [facility] Comment on above: Order Comment: Speci men Type: BLOOD SPECIMENOrdering Facility: [facility] Address: [address] [place] [address] Performed By: #### 7 3752-8 ####[facility] LABCLIA [id number] [address] [place] CNOVon 03-28-2025 CNOV Office Visit (WOUCA) ---- BARBARA SCHWAB ([id number]) 4 F Date Time Provider Department 03/28/25 9:15 AM ESHA PORTER During your visit today, we recorded the following information about you: Temperature Pulse Respiration Blood pressure 97.7 degrees 110/minute 18/minute 116/82 Weight 58.8 kg Esha Porter APRN.ART PROFESSOR 03/28/2025 9:44 AM Signed [facility] Subjective Barbara Feliciano Zaheer is a 24 [...] Review of Systems Respiratory: Positive for cough. Ears/Nose/Mouth/Thr oat: (+) sore throat, (+) odynophagia, (+) nasal [...] agrees with care plan. and Recording using Kann[employer] software for draft documentation of the visit was discussed with the patient/authorized career services representative; all questions welcomed and answered. Patient/authorized career services representative agreed to proceed History and Record [...] Diagnosis:Sore throat [J02.9] Order(s):STREP A MOLECULAR (POC) [[id number]] Order #: [id number]. #:[id number] Prescriptions as of 03/28/2025 - melatonin 3 mg tablet TAKE 2 TABLETS BY MOUTH EVERY NIGHT AT BEDTIME NEEDED for sleep - aspirin, enteric coated (ECOTRIN LOW STRENGTH) 81 mg EC tablet Take 1 tablet by mouth once daily. - valACYclovir (VALTREX) 1 gram tablet Take 1 tablet by mouth as needed. - Vsnlaklh-Ma-Rxf-Fe- FA tab Take 1 tablet by mouth once daily. - escitalopram oxalate (LEXAPRO) 10 mg tablet Take 10 mg by mouth once daily. Problem List As Of Date 03/28/2025 Noted Resolved Supervision of high risk , antepartum *02/04/2019 History of marijuana use [F12.91] 02/04/2019 03/11/2025 Quit smoking [Z87.891] 02/04/2019 08/06/2019 History of depression [Z86.59] 02/04/2019 Family history of [place]'s disease [Z82.0] 02/04/2019 Patient request for diagnostic [...] Encounter Status:Closed by ESHA PORTER on 03/28/25 [facility] Bacteria Ur Culton 5 Bacteria identified Cx Nom (U) ORGANISM ID: 1 10,000 -<50,000 CFU/ml Mixed microbiota No further workup. Mixed microbiota can be due to???urine???contam ination with skin bacteria at time of collection or presence of a long-term urinary catheter. If a new culture is needed, please consider re-education of the patient on proper midstream collection technique or straight catheterization for???urine???colle ction. Normal [facility] Comment on above: Performed By: #### 6 30-4 ####[facility] LABCLIA [id number] [place] [address] [place] UA DIP, URINE (POC)on 2024 BILIRUBIN UA (POCT) Negative Negative Jemal [facility] CLARITY UA (POCT) Clear [facility] COLOR UA (POCT) Other [facility] GLUCOSE UA (POCT) Negative Negative mg/dL [facility] Hemoglobin Ql (U) Negative Negative [facility] Interpretation and review of laboratory results Abnormal [facility] KETONE UA (POCT) Negative Negative mg/dL [facility] LEUKOCYTES UA (POCT) Moderate Abnormal Negative [facility] NITRITE UA (POCT) Negative Negative [facility] PH UA (POCT) 6.5 4.5 - 8.0 [facility] Protein Ql (U) Negative Negative mg/dL [facility] SPECIFIC GRAVITY UA (POCT) <=1.005 Abnormal 1.005 - 1.030 [facility] UROBILINOGEN UA (POCT) 0.2 Luz Maria l E.U./dL [facility] Location:[facility], [address] [facility] [facility], [place], [place], [id number] [place] [address] POINT OF CARE [facility] CBC panel Auto (Bld)on 03-14 Erythrocyte distribution width (RBC) [Ratio] 13.2 % 11.5 - 15.0 % [facility] Hematocrit (Bld) [Volume fraction] 33.6 % Low 36.0 - 46.0 % [facility] Hemoglobin (Bld) [Mass/Vol] 11.3 g/dL Low 11.5 - 15.5 g/dL [facility] Interpretation and review of laboratory results Abnormal [facility] MCH (RBC) [Entitic mass] 30.0 pg 26. 0 - 34.0 pg [facility] MCHC (RBC) [Mass/Vol] 33.6 g/dL 30.5 - 36.0 g/dL [facility] MCV (RBC) [Entitic vol] 89.1 fL 80.0 - 100.0 fL [facility] Nucleated RBC (Bld) [#/Vol] NINF [facility] Platelet mean volume (Bld) [Entitic vol] 9.9 fL 9.0 - 12.7 fL [facility] Platelets (Bld) [#/Vol] 243 10*3/uL [facility] RBC (Bld) [#/Vol] 3.77 10*6/uL Low 3.90 - 5.2 0 m/uL [facility] WBC (Bld) [#/Vol] 11.18 10*3/uL High [facility] Erythrocyte distribution width (RBC) [Ratio] 13.2 % Normal 11.5-15.0 [facility] Comment on above: Order Comment: Speci men Type: BLOOD SPECIMENOrdering Facility: [facility] Address: [address] [place] [address] Performed By: #### 5 8410-2 ####[facility] [id number] [place] [address] [place] Hematocrit (Bld) [Volume fraction] 33.6 % Low 36.0-46.0 [facility] Comment on above: Order Comment: Terencei annabel Type: BLOOD SPECIMENOrdering Facility: [facility] Address: [address] [place] [address] Performed By: #### 5 8410-2 ####[facility] [id number] [place] [address] [place] Hemoglobin (Bld) [Mass/Vol] 11.3 g/dL Low 11.5-15.5 [facility] Comment on above: Order Comment: Speci men Type: BLOOD SPECIMENOrdering Facility: [facility] Address: [address] [place] [address] Performed By: #### 5 8410-2 ####[facility]ITALNCLI [id number] [place] [address] [place] MCH (RBC) [Entitic mass] 30.0 pg Normal 26.0-34.0 [facility] Comment on above: Order Comment: Speci men Type: BLOOD SPECIMENOrdering Facility: [facility] Address: [address] [place] [address] Performed By: #### 5 8410-2 ####[facility] MARCELOWNCLIA [id number] [place] [address] [place] MCHC (RBC) [Mass/Vol] 33.6 g/dL Normal 30.5-36.[address] [facility] Comment on above: Order Comment: Speci men Type: BLOOD SPECIMENOrdering Facility: [facility] Address: [address] [place] [address] Performed By: #### 5 8410-2 ####[facility]ITALNCLIA [id number] [place] [address] [place] MCV (RBC) [Entitic vol] 89.1 fL Normal 80.0-100.0 [facility] Comment on above: Order Comment: Speci men Type: BLOOD SPECIMENOrdering Facility: [facility] Address: [address] [place] [address] Performed By: #### 5 8410-2 ####[facility]ITALNCLIA [id number] [place] [address] [place] Nucleated RBC (Bld) [#/Vol] 10*3/uL Normal <0.01 [facility] Comment on above: Order Comment: Speci men Type: BLOOD SPECIMENOrdering Facility: [facility] Address: [address] [place] [address] Performed By: #### 5 8410-2 ####[facility]PITALNCLIA [id number] [place] [address] [place] Platelet mean volume (Bld) [Entitic vol] 9.9 fL Normal 9.0-12.7 [facility] Comment on above: Order Comment: Speci men Type: BLOOD SPECIMENOrdering Facility: [facility] Address: [address] [place] [address] Performed By: #### 5 8410-2 ####[facility] JAYJAYNCLIA [id number] [place] [address] [facility] [place] Platelets (Bld) [#/Vol] 243 10*3/uL Normal 150-400 [facility] Comment on above: Order Comment: Speci men Type: BLOOD SPECIMENOrdering Facility: [facility] Address: [address] [place] [address] Performed By: #### 5 8410-2 ####[facility] MARCELOPrestonNCLIA [id number] [place] [address] [place] RBC (Bld) [#/Vol] 3.77 10*6/uL Low 3.90-5.20 [facility] Comment on above: Order Comment: Speci men Type: BLOOD SPECIMENOrdering Facility: [facility] Address: [address] [place] [address] Performed By: #### 5 8410-2 ####[facility]ITALNCLIA [id number] [place] [address] [place] WBC (Bld) [#/Vol] 11.18 10*3/uL High 3.70-11.00 [facility] Comment on above: Order Comment: Speci men Type: BLOOD SPECIMENOrdering Facility: [facility] Address: [address] [place] [address] Performed By: #### 5 8410-2 ####[facility]OSPITALNCLIA [id number] [place] [address] [facility] Comprehensive metabolic 2000 panelOrdered By: Jessica Carey on 03-14-2025 Albumin [Mass/Vol] 3.8 g/dL Low 3.9 - 4.9 g/dL [facility] ALP [Catalytic activity/Vol] 65 U/L 34 - 123 U/L [facility] ALT [Catalytic activity/Vol] U/L Low 7 - 38 U/L [facility] Anion gap [Moles/Vol] 11 mmol/L 8 - 15 mmol/L [facility] AST [Catalytic activity/Vol] 11 U/L Low 13 - 35 U/L [facility] Bilirubin [Mass/Vol] 0.3 mg/dL 0.2 - 1 .3 mg/dL [facility] Calcium [Mass/Vol] 8.8 mg/dL 8.5 - 10. 2 mg/dL [facility] Chloride [Moles/Vol] 101 mmol/L 98 - 10 7 mmol/L [facility] CO2 [Moles/Vol] 25 mmol/L 22 - 30 mmol/L [facility] Creatinine [Mass/Vol] 0.39 mg/dL Low 0.58 - 0.96 mg/dL [facility] GFR/1.73 sq M.predicted among non-blacks MDRD (S/P/Bld) [Vol rate/Area] 145 mL/min/{1.73_m2} - PINF [facility] Comment on above: Estimated Glomerular Filtration Rate [...] [Mass/Vol] 77 mg/dL 74 - 99 mg/dL [facility] Comment on above: The [place] Diabete s Association (ADA) provides guidance for [...] Standards of Medical Care in Diabetes 2016, [place] [employer] Association. Diabetes Care. 2016.39(Suppl 1). Interpretation and review of laboratory results Abnormal [facility] Potassium [Moles/Vol] 3.5 mmol/L Low 3.7 - 5.1 mmol/L [facility] Protein [Mass/Vol] 6.3 g/dL 6.3 - 8.0 g/dL [facility] Sodium [Moles/Vol] 137 mmol/L 136 - 144 mmol/L [facility] Urea nitrogen [Mass/Vol] 5 mg/dL Low 7 - 21 mg/d L [facility] Comprehensive metabolic 2000 panelon 03-14-2025 Albumin [Mass/Vol] 3.8 g/dL Low 3.9-4.9 [facility] Comment on above: Order Comment: Speci men Type: BLOOD SPECIMENOrdering Facility: [facility] Address: [address] [place] [address] Performed By: #### 2 4323-8 ####[facility] HOSPITALLIA [id number] [place] [address] [place] ALP [Catalytic activity/Vol] 65 U/L Normal 34-123 [facility] Comment on above: Order Comment: Speci men Type: BLOOD SPECIMENOrdering Facility: [facility] Address: [address] [place], [place] [address] Performed By: #### 2 4323-8 ####[facility] HOSPITALLIA [id number] [place] [address] [place] ALT [Catalytic activity/Vol] U/L Low 7-38 [facility] Comment on above: Order Comment: Speci men Type: BLOOD SPECIMENOrdering Facility: [facility] Address: [address] [place] [address] Performed By: #### 2 4323-8 ####[facility] HOSPITALLIA [id number] [place] [address] [place] Anion gap [Moles/Vol] 11 mmol/L Normal 8-[address] [facility] Comment on above: Order Comment: Speci men Type: BLOOD SPECIMENOrdering Facility: [facility] Address: [address] [place] [address] Performed By: #### 2 4323-8 ####[facility] MAXIMILIAON MILLTOWNCLIA [id number] [place] [address] [place] AST [Catalytic activity/Vol] 11 U/L Low 13-35 [facility] Comment on above: Order Comment: Speci men Type: BLOOD SPECIMENOrdering Facility: [facility] Address: [address] [place] [address] Performed By: #### 2 4323-8 ####[facility] MILLWNCLIA [id number] [place] [address] [place] Bilirubin [Mass/Vol] 0.3 mg/dL Normal 0.2-1.3 [facility] Comment on above: Order Comment: Speci men Type: BLOOD SPECIMENOrdering Facility: [facility] Address: [address] [place] [address] Performed By: #### 2 4323-8 ####[facility]PITALNCLIA [id number] [place] [address] [place] Calcium [Mass/Vol] 8.8 mg/dL Normal 8.5-10.2 [facility] Comment on above: Order Comment: Speci men Type: BLOOD SPECIMENOrdering Facility: [facility] Address: [address] [place] [address] Performed By: #### 2 4323-8 ####[facility]ERSBURGWNCLIA [id number] [place] [address] [place] Chloride [Moles/Vol] 101 mmol/L Normal 98-107 [facility] Comment on above: Order Comment: Speci men Type: BLOOD SPECIMENOrdering Facility: [facility] Address: [address] [place] [address] Performed By: #### 2 4323-8 ####[facility] PETERSBURGWNCLIA [id number] [place] [address] [place] CO2 [Moles/Vol] 25 mmol/L Normal 22-30 [facility] Comment on above: Order Comment: Speci men Type: BLOOD SPECIMENOrdering Facility: [facility] Address: [address] [place] [address] Performed By: #### 2 4323-8 ####[facility]ITALNCC[facility] [id number] [place] [address] [place] Creatinine [Mass/Vol] 0.39 mg/dL Low 0.58-0.[address] [facility] Comment on above: Order Comment: Speci men Type: BLOOD SPECIMENOrdering Facility: [facility] Address: [address] [place] [address] Performed By: #### 2 4323-8 ####[facility]ITALNCC[facility] [id number] [place] [address] [place] eGFRcr SerPlBld CKD-EPI 2020 145 mL/min/1.73m??? Normal >=60 [facility] Comment on above: Order Comment: Speci men Type: BLOOD SPECIMENOrdering Facility: [facility] Address: [address] [place] [address] Result Comment: Catherine mated Glomerular Filtration Rate [...] actual GFR. Performed By: #### 2 4323-8 ####[facility]ITALNCLIA [id number] [place] [address] [place] Glucose [Mass/Vol] 77 mg/dL Normal 74-99 [facility] Comment on above: Order Comment: Speci men Type: BLOOD SPECIMENOrdering Facility: [facility] Address: [address] [place] [address] Result Comment: The [place] Diabetes Association (ADA) provides guidance for cutoff [...] Standards of Medical Care in Diabetes 2016, [place] [employer]. Diabetes Care. 2016.39(Suppl 1). Performed By: #### 2 4323-8 ####[facility]PITALFRIDACACHE VALLEY [facility] [id number] [place] [address] [place] Potassium [Moles/Vol] 3.5 mmol/L Low 3.7-5.[address] [facility] Comment on above: Order Comment: Speci men Type: BLOOD SPECIMENOrdering Facility: [facility] Address: [address] [place] [address] Performed By: #### 2 4323-8 ####[facility] [id number] [place] [address] [place] Protein [Mass/Vol] 6.3 g/dL Normal 6.3-8.0 [facility] Comment on above: Order Comment: Speci men Type: BLOOD SPECIMENOrdering Facility: [facility] Address: [address] [place] [address] Performed By: #### 2 4323-8 ####[facility] HOSPITALLIA [id number] [place] [address] [place] Sodium [Moles/Vol] 137 mmol/L Normal 136-144 [facility] Comment on above: Order Comment: Speci men Type: BLOOD SPECIMENOrdering Facility: [facility] Address: [address] [place] [address] Performed By: #### 2 4323-8 ####[facility] [id number] [place] [address] [place] Urea nitrogen [Mass/Vol] 5 mg/dL Low 7-21 [facility] [facility] Comment on above: Order Comment: Speci men Type: BLOOD SPECIMENOrdering Facility: [facility] Address: [address] [place] [address] Performed By: #### 2 4323-8 ####[facility] [id number] [place] [address] [place] TSH W/REFLEX FT4on TSH Qn 0.860 m[IU]/L Normal 0.270-4.200 [facility] Comment on above: Order Comment: Speci men Type: BLOOD SPECIMENOrdering Facility: [facility] Address: [address] [place] [address] Result Comment: If t he patient is , TSH reference range varies by gestational period: First Trimester (weeks 9-12): 0.180-2.990 mIU/L Second Trimester: 0.110-3.980 mIU/L Third Trimester: 0.480-4.710 mIU/L Jassi Cruz et al. A Practical Approach for the Verifications and Determination of Site- and Trimester-Specific Reference Intervals for Thyroid Function tests in . Thyroid, 2019:29:3:412-420. Jona Goetz, et al. 2017 Guidelines of the [place] [employer] for the Diagnosis and Management of Thyroid Disease during and the . Thyroid, 2017:27:3:315-389. Performed By: #### T [facility] ####[facility] LABCLIA [id number] [place] [address] [place] BACTERIAL CULTURE, URINEOrde red By: Geno Albert on 03-13-2025 Bacteria identified Cx Nom (U) 10,000 -<50,000 CFU/ml Proteus vulgaris Abnormal [facility] Bacteria identified Cx Nom ( U)Ordered By: Geno Albert on 03-13-2025 Interpretation and review of laboratory results Abnormal [facility] This test was developed and its performance characteristics determined by the [facility]'s [facility] [place] [facility] [place] ([facility]). It has not been cleared or approved by the FDA. [facility] is regulated under CLIA as qualified to perform high-complexity testing. This test is used for clinical purposes. It should not be regarded as investigational or for research. [facility] Bacteria Ur Culton 5 Bacteria identified Cx Nom (U) ORGANISM ID: 1 10,000 -<50,000 CFU/ml Proteus vulgaris ORGANISM ID: 1 (PROTEUS VULGARIS) ANTIBIOTIC INTERPRETATION ROWDY STATUS REFERENCE RANGE Ampicillin R >=32 F Susceptible <=8 , [...] <=8 , Intermediate >8 , Resistant >16 Piperacillin/Tazoba c S <=4 F Susceptible <16 , Susceptible-Dose [...] , Intermediate >32 , Resistant >64 Abnormal [facility] Comment on above: Performed By: #### 6 30-4 ####[facility] LABCLIA [id number] [address] Examination level ultrasound on 03-11-2025 [facility] Radiology Study observation (narrative) [facility] Chasity 03-01-2025 CNPN Telephone (OBGYWM) ---- BARBARA SCHWAB ([id number]) 4 F Date Time Provider Department 03/01/25 [...] 03/01/2025 2:55 PM Signed OK to take bactrim MD Kevin Lipscomb Trisha, RN 03/01/2025 2:58 PM Signed She needs a bactrim prescription then. She did not have that one prescribed. LIO Garvin Karmon, MD 03/01/2025 3:02 PM Signed Filed Kamilla Porter MD' Becky Fay RN 03/01/2025 3:09 PM Signed Patient notified. Becky Fay RN The following approved medication requests have been transmitted electronically. Requested Prescriptions Signed Prescriptions Disp Refills sulfamethoxazole-tr imethoprim (BACTRIM DS) 800-160 mg per tablet 14 tablet 0 Sig: Take 1 tablet by mouth two times a day for 7 days. Authorizing Provider: KAMILLA PORTER Pharmacy Information Pharmacy Address [facility] [phone] [place], [place] [address] Allergies As of Date: 03/01/2025 Noted Allergy Reaction ADHESIVE TAPE (ROSINS) 02/04/2014 2 - Rash LATEX 2 - Rash Date Reviewed: 02/23/2025 Reviewed by: Adwoa Conrad LPN - Fully Assessed Reason for Visit: OB UTI [Other] Visit Diagnosis:Acute cystitis without hematuria [N30.00] Order(s):sulfametho xazole-trimethoprim (BACTRIM DS) 800-160 mg per tabletTake 1 tablet by mouth two times a day for 7 days.Disp: 14 tabletRfl: 0 Prescriptions as of 03/01/2025 - sulfamethoxazole-tr imethoprim (BACTRIM DS) 800-160 mg per tablet Take [...] 1 tablet by mouth as needed. - Mthbqtya-Be-Fkx-Fe- FA tab Take 1 tablet by mouth once daily. - escitalopram oxalate (LEXAPRO) 10 mg tablet Take 10 mg by mouth once daily. Problem List As Of Date 03/01/2025 Noted Resolved Supervision of high risk , antepartum *02/04/2019 History of marijuana use [F12.91] 02/04/2019 Quit smoking [Z87.891] 02/04/2019 08/06/2019 History of depression [Z86.59] 02/04/2019 Family history of [place]'s disease [Z82.0] 02/04/2019 Patient request for diagnostic [...] Encounter Status:Closed by BECKY FAY on 03/01/25 [facility] BARBARA SCHWAB ([id number]) 4 F Date Time Provider Department 02/24/25 NURSE INCOME AUDITOR VW BALDWIN OGFVWE During your visit today, we recorded [...] 1 tablet by mouth as needed. - Xhnuwamx-Ln-Rlb-Fe- FA tab Take 1 tablet by mouth once [...] Encounter Status:Closed by DONALDO DESAI on 02/24/25 [facility] Chasity 02-23-2025 CNPN Telephone (OBGYWM) ---- BARBARA SCHWAB ([id number]) 4 F Date Time Provider Department 02/23/25 MARCIA FARRELL OBGYW During your visit today, we recorded the [...] of ([facility]) [Z3A.20] Other Visit Diagnosis:Supervisi on of high risk , antepartum ([facility]) [O09.90] Order(s):OBSTETRIC ULTRASOUND [facility] [[id number]] Order #: [id number]: 1 FUTURE Prescriptions as of 02/23/2025 - sulfamethoxazole-tr imethoprim (BACTRIM DS) 800-160 mg per tablet Take [...] 1 tablet by mouth as needed. - Viyeabmd-Xo-Utt-Fe- FA tab Take 1 tablet by mouth once daily. - escitalopram oxalate (LEXAPRO) 10 mg tablet Take 10 mg by mouth once daily. Problem List As Of Date 02/23/2025 Noted Resolved Supervision of high risk , antepartum *02/04/2019 12/28/2024 History of marijuana use [F12.91] 02/04/2019 Quit smoking [Z87.891] 02/04/2019 08/06/2019 History of depression [Z86.59] 02/04/2019 Family history of [place]'s disease [Z82.0] 02/04/2019 Patient request for diagnostic [...] 08/12/2022 Threatened miscarriage in early (HCC)*03/26/2024 12/28/2024 Encounter Status:Closed by MARCIA FARRELL on 02/23/25 Normal [facility] Examination level ultrasound on 02-23-2025 Indication [...] 14 oz EFW by: Hadlock (HC-AC-FL) Extended Laborer Cutting Tool 6.8 mm CM 7.2 mm 95% Nicolaides [...] normal LVOT view: normal 3-vessel view: normal 8-fhirhu-ucqftil view: normal Heart / Thorax Situs: situs [...] Read By: Bel Serrano M.D. MATERNAL MEDICINE [facility] Radiology Study observation (narrative) [facility] Chasity 02-18-2025 CNPN Telephone (OBGYWM) ---- BARBARA SCHWAB ([id number]) 4 F Date Time Provider Department 02/18/25 MARCIA FARRELL During your visit today, we recorded the following information about you: [place] Josiah 02/18/2025 10:24 AM Signed Patient was [...] a voicemail. Mailbox not set up yet. LIO [place] Annalee, LPN 02/18/2025 11:09 AM Signed Patient was prescribed Macrobid and has taken 2 doses so far. C/o urinary frequency and side cramps. Burning w/ urination has resolved. Patient is taking tylenol that is helping to resolve side cramps. Next ob appointment 02/23/25. 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 New Rx for Bactrim prescribed and faxed to [email or web address] in [place]. Confirmed with pharmacy that Pt did pick [...] Care [86] Prescriptions as of 02/22/2025 - sulfamethoxazole-tr imethoprim (BACTRIM DS) 800-160 mg per tablet Take [...] 1 tablet by mouth as needed. - Joanoeav-Tw-Gti-Fe- FA tab Take 1 tablet by mouth once daily. - escitalopram oxalate (LEXAPRO) 10 mg tablet Take 10 mg by mouth once daily. Problem List As Of Date 02/18/2025 Noted Resolved Supervision of high risk , antepartum *02/04/2019 12/28/2024 History of marijuana use [F12.91] 02/04/2019 Quit smoking [Z87.891] 02/04/2019 08/06/2019 History of depression [Z86.59] 02/04/2019 Family history of [place]'s disease [Z82.0] 02/04/2019 Patient request for diagnostic [...] ([facility])*03/26/2024 12/28/2024 Encounter Status:Closed by EBCKY FAY on 02/22/25 [facility] Bacteria Ur Culton Bacteria identified Cx Nom (U) ORGANISM ID: 1 >=100,000 CFU/ml Proteus vulgaris ORGANISM ID: 1 (PROTEUS VULGARIS) ANTIBIOTIC INTERPRETATION ROWDY STATUS REFERENCE RANGE Ampicillin R >=32 F Susceptible <=8 , [...] <=8 , Intermediate >8 , Resistant >16 Piperacillin/Tazoba c S <=4 F Susceptible <16 , Susceptible-Dose [...] , Intermediate >32 , Resistant >64 Abnormal [facility] Comment on above: Performed By: #### 6 30-4 ####[facility] MADY [id number] [place] [id number] [place] CNOVon 02-17-2025 CNOV Office Visit (WOUCA) ---- BARBARA SCHWAB ([id number]) 4 F Date Time Provider Department 02/17/25 10:15 AM ESHA PORTER During your visit today, we recorded the following information about you: Temperature Pulse Respiration Blood pressure 97.6 degrees 99/minute 18/minute 108/76 Weight 54 kg Esha Porter APRN.[facility] 02/17/2025 10:41 AM Signed URGENT CARE [...] Urine sent for culture. - Will message ROOFING CONTRACTOR (Dr. Edwards) with high-importance update regarding UTI and current management. - Advised patient to follow any additional instructions from ROOFING CONTRACTOR if contacted. and Recording using Kann[employer] software for draft documentation of the visit was discussed with the patient/authorized career services representative; all questions welcomed and answered. Patient/authorized career services representative agreed to proceed MDM Procedures Allergies As of Date: 02/17/2025 Noted Allergy Reaction ADHESIVE TAPE (ROSINS) 02/04/2014 2 - Rash LATEX 2 - Rash Date Reviewed: 02/17/2025 Reviewed by: Christina Iyer LPN - Fully Assessed Reason for Visit: Urinary Problem [252] Cmt: Burning and frequency x 3 days Primary Visit Diagnosis:Burning with urination [R30.0] Order(s):UA DIP, URINE (POC) [[id number]] Order #: [id number]. #:[id number] BACTERIAL CULTURE, URINE [SQURCUL] Order #: [id number]. #:[id number] nitrofurantoin monohydrate and macrocrystal (MACROBID) 100 mg [...] 1 tablet by mouth as needed. - Bgamgzpq-Nf-Cjh-Fe- FA tab Take 1 tablet by mouth once [...] on 02/04 (more content not included)... Normal [facility] UA DIP, URINE (POC)on 2024 BILIRUBIN UA (POCT) Negative Negative [facility] CLARITY UA (POCT) Clear [facility] COLOR UA (POCT) Yellow [facility] GLUCOSE UA (POCT) Negative Negative mg/dL [facility] Hemoglobin Ql (U) Small Abnormal Negative [facility] Interpretation and review of laboratory results Abnormal [facility] KETONE UA (POCT) Negative Negative mg/dL [facility] LEUKOCYTES UA (POCT) Moderate Abnormal Negative [facility] NITRITE UA (POCT) Negative Negative [facility] PH UA (POCT) 6.0 4.5 - 8.0 [facility] Protein Ql (U) Negative Negative mg/dL [facility] SPECIFIC GRAVITY UA (POCT) <=1.005 Abnormal 1.005 - 1.030 [facility] UROBILINOGEN UA (POCT) 0.2 Luz Maria l E.U./dL [facility] Location:[facility], [address] [place] [address], [place], [address] [facility] POINT OF CARE [facility] CNCOon 02-10-2025 CNCO Letter Text Normal [facility] Examination level ultrasound on 01-26-2025 Indication [...] Read By: Melanie Cook M.D. MATERNAL MEDICINE [facility] Radiology Study observation (narrative) [facility] sethi [facility] CBC W Auto Differential pane l (Bld)on 12-29-2024 Basophils (Bld) [#/Vol] 0.04 10*3/uL Normal <0.11 [facility] Comment on above: Order Comment: Speci men Type: BLOOD SPECIMENOrdering Facility: [facility] Address: [address] [place] [address] Performed By: #### 5 7021-8 ####[facility] [id number] [place] [address] [place] Basophils/100 WBC (Bld) 0.4 % Normal [facility] Comment on above: Order Comment: Speci men Type: BLOOD SPECIMENOrdering Facility: [facility] Address: [address] [place] [address] Performed By: #### 5 7021-8 ####[facility] MARCELOJOSE MARIA [id number] [place] [address] [place] Differential cell count method Nom (Bld) Auto Normal [facility] Comment on above: Order Comment: Speci men Type: BLOOD SPECIMENOrdering Facility: [facility] Address: [address] [place] [address] Performed By: #### 5 7021-8 ####[facility] [id number] [place] [address] [place] Eosinophils (Bld) [#/Vol] 0.03 10*3/uL Normal <0.46 [facility] Comment on above: Order Comment: Speci men Type: BLOOD SPECIMENOrdering Facility: [facility] Address: [address] [place] [address] Performed By: #### 5 7021-8 ####[facility]ITAL[facility] [id number] [place] [address] [place] Eosinophils/100 WBC (Bld) 0.3 % Normal [facility] Comment on above: Order Comment: Speci men Type: BLOOD SPECIMENOrdering Facility: [facility] Address: [address] [place] [address] Performed By: #### 5 7021-8 ####[facility] [id number] [place] [address] [place] Erythrocyte distribution width (RBC) [Ratio] 12.6 % Normal 11.5-15.0 [facility] Comment on above: Order Comment: Speci men Type: BLOOD SPECIMENOrdering Facility: [facility] Address: [address] [place] [address] Performed By: #### 5 7021-8 ####[facility]ALL[facility] [id number] [place] [address] [place] Hematocrit (Bld) [Volume fraction] 34.8 % Low 36.0-46.0 [facility] Comment on above: Order Comment: Speci men Type: BLOOD SPECIMENOrdering Facility: [facility] Address: [address] [place] [address] Performed By: #### 5 7021-8 ####[facility] [id number] [place] [address] [place] Hemoglobin (Bld) [Mass/Vol] 12.0 g/dL Normal 11.5-15.5 [facility] Comment on above: Order Comment: Speci men Type: BLOOD SPECIMENOrdering Facility: [facility] Address: [address] [place] [address] Performed By: #### 5 7021-8 ####[facility] [id number] [place] [address] [place] Immature granulocytes (Bld) [#/Vol] 0.04 10*3/uL Normal <0.10 [facility] Comment on above: Order Comment: Speci men Type: BLOOD SPECIMENOrdering Facility: [facility] Address: [address] [place] [address] Performed By: #### 5 7021-8 ####[facility] [id number] [place] [address] [place] Immature granulocytes/100 WBC (Bld) 0.4 % Normal [facility] Comment on above: Order Comment: Speci men Type: BLOOD SPECIMENOrdering Facility: [facility] Address: [address] [place] [address] Performed By: #### 5 7021-8 ####[facility] [id number] [place] [address] [place] Lymphocytes (Bld) [#/Vol] 1.95 10*3/uL Normal 1.00-4.00 [facility] Comment on above: Order Comment: Speci men Type: BLOOD SPECIMENOrdering Facility: [facility] Address: [address] [place] [address] Performed By: #### 5 7021-8 ####[facility]ITAL[facility] [id number] [place] [address] [place] Lymphocytes/100 WBC (Bld) 17.8 % Normal [facility] Comment on above: Order Comment: Speci men Type: BLOOD SPECIMENOrdering Facility: [facility] Address: [address] [place] [address] Performed By: #### 5 7021-8 ####[facility]ITALNCLI [id number] [place] [address] [place] MCH (RBC) [Entitic mass] 29.9 pg Normal 26.0-34.0 [facility] Comment on above: Order Comment: Speci men Type: BLOOD SPECIMENOrdering Facility: [facility] Address: [address] [place] [address] Performed By: #### 5 7021-8 ####[facility] [id number] [place] [address] [place] MCHC (RBC) [Mass/Vol] 34.5 g/dL Normal 30.5-36.[address] [facility] Comment on above: Order Comment: Speci men Type: BLOOD SPECIMENOrdering Facility: [facility] Address: [address] [place], [place] [address] Performed By: #### 5 7021-8 ####[facility]CL[facility] [id number] [place] [address] [place] MCV (RBC) [Entitic vol] 86.8 fL Normal 80.0-100.0 [facility] Comment on above: Order Comment: Speci men Type: BLOOD SPECIMENOrdering Facility: [facility] Address: [address] [place] [address] Performed By: #### 5 7021-8 ####[facility] MARCELOJOSE MARIA [id number] [place] [address] [place] Monocytes (Bld) [#/Vol] 0.60 10*3/uL Normal <0.87 [facility] Comment on above: Order Comment: Speci men Type: BLOOD SPECIMENOrdering Facility: [facility] Address: [address] [place] [address] Performed By: #### 5 7021-8 ####[facility] ERA [id number] [place] [address] [place] Monocytes/100 WBC (Bld) 5.5 % Normal [facility] Comment on above: Order Comment: Speci men Type: BLOOD SPECIMENOrdering Facility: [facility] Address: [address] [place] [address] Performed By: #### 5 7021-8 ####[facility]ITALNCLIA [id number] [place] [address] [place] Neutrophils (Bld) [#/Vol] 8.32 10*3/uL High 1.45-7.50 [facility] Comment on above: Order Comment: Speci men Type: BLOOD SPECIMENOrdering Facility: [facility] Address: [address] [place] [address] Performed By: #### 5 7021-8 ####[facility]ALL[facility] [id number] [place] [address] [place] Neutrophils/100 WBC (Bld) 75.6 % Normal [facility] Comment on above: Order Comment: Speci men Type: BLOOD SPECIMENOrdering Facility: [facility] Address: [address] [place] [address] Performed By: #### 5 7021-8 ####[facility] EFEWFRIDALIA [id number] [place] [address] [place] Nucleated RBC (Bld) [#/Vol] 10*3/uL Normal <0.01 [facility] Comment on above: Order Comment: Speci men Type: BLOOD SPECIMENOrdering Facility: [facility] Address: [address] [place] [address] Performed By: #### 5 7021-8 ####[facility]ITALFRIDALIA [id number] [place] [address] [place] Nucleated RBC/100 WBC (Bld) [Ratio] 0.0 /100 WBC Normal [facility] Comment on above: Order Comment: Speci men Type: BLOOD SPECIMENOrdering Facility: [facility] Address: [address] [place] [address] Performed By: #### 5 7021-8 ####[facility] [id number] [place] [address] [place] Platelet mean volume (Bld) [Entitic vol] 10.6 fL Normal 9.0-12.7 [facility] Comment on above: Order Comment: Speci men Type: BLOOD SPECIMENOrdering Facility: [facility] Address: [address] [place] [address] Performed By: #### 5 7021-8 ####[facility]ALL[facility] [id number] [place] [address] [place] Platelets (Bld) [#/Vol] 231 10*3/uL Normal 150-400 [facility] Comment on above: Order Comment: Speci men Type: BLOOD SPECIMENOrdering Facility: [facility] Address: [address] [place] [address] Performed By: #### 5 7021-8 ####[facility]ITALNCL[facility] [id number] [place] [address] [place] RBC (Bld) [#/Vol] 4.01 10*6/uL Normal 3.90-5.20 [facility] Comment on above: Order Comment: Speci men Type: BLOOD SPECIMENOrdering Facility: [facility] Address: [address] [place] [address] Performed By: #### 5 7021-8 ####[facility] [id number] [place] [address] [place] WBC (Bld) [#/Vol] 10.98 10*3/uL Normal 3.70-11.00 [facility] Comment on above: Order Comment: Speci men Type: BLOOD SPECIMENOrdering Facility: [facility] Address: [address] [place] [address] Performed By: #### 5 7021-8 ####[facility] [id number] [place] [address] [place] HBV surface Ag Ser Qlon 12-06 HBV surface Ag Ql (S) Negative Normal Negative [facility] Comment on above: Order Comment: Speci men Type: BLOOD SPECIMENOrdering Facility: [facility] Address: [address] [place] [address] Performed By: #### 5 195-3, 65766-4, 68942-1 ####[facility] LABCLIA [id number] [place] [address] [place] HCV Ab Ser Qlon 12-29-2024 HCV Ab Ql (S) Negative Normal Negative [facility] Comment on above: Order Comment: Speci men Type: BLOOD SPECIMENOrdering Facility: [facility] Address: [address] [place] [address] Result Comment: The result suggests no evidence of infection with Hepatitis C virus. Should recent infection be suspected, repeat testing may be considered 4-6 weeks after this draw. Performed By: #### 1 6128-1 ####[facility] LABCLIA [id number] [place] [address] [place] HIV 1+2 Ab IA Qlon 5 HIV 1 and 2 Ab IA.rapid Nom (S/P/Bld) Normal [facility] Comment on above: Order Comment: Speci men Type: BLOOD SPECIMENOrdering Facility: [facility] Address: [address] [place] [address] Result Comment: Test not indicated. Performed By: #### 5 195-3, 16819-7, 93339-4 ####[facility] LABCLIA [id number] [place] [address] [place] HIV 1+2 Ab+HIV1 p24 Ag IA Ql Non-Reactive Normal Nonreactive [facility] Comment on above: Order Comment: Speci men Type: BLOOD SPECIMENOrdering Facility: [facility] Address: [address] [place] [address] Performed By: #### 5 195-3, 63955-9, 90134-3 ####[facility] LABCLIA [id number] [place] [address] [place] HIV immunoassay testing algorithm interpretation (S/P/Bld) [Interp] Normal [facility] Comment on above: Order Comment: Speci men Type: BLOOD SPECIMENOrdering Facility: [facility] Address: [address] [place] [address] Result Comment: No e vidence of HIV-1 or HIV-2 infection. Should recent infection be suspected, repeat testing may be considered 2-3 weeks after this draw. [place] Rev. Code 3701.243(E): This information has been [...] or diagnoses. Performed By: #### 5 195-3, 10305-6, 23375-5 ####[facility] LABCLIA [id number] [address] HbA1c (Bld)on 12-29-2024 Average glucose Estimated from glycated hemoglobin (Bld) [Mass/Vol] 91 mg/dL Normal [facility] Comment on above: Order Comment: Zachery jin Type: BLOOD SPECIMENOrdering Facility: [facility] Address: [address] [place] [address] Result Comment: eAG: (Estimated average glucose) is a calculated value from HgbA1c and is career services representative of the average blood glucose level in the last 2-3 month period. Performed By: #### 5 5454-3 ####[facility] LABIA [id number] [address] HbA1c (Bld) [Mass fraction] 4.8 % Normal 4.3-5.6 [facility] Comment on above: Order Comment: [facility] Type: BLOOD SPECIMENOrdering Facility: [facility] Address: [address] [place] [address] Result Comment: Amer [place] Diabetes Association guidelines indicate that patients with HgbA1c in the range 5.7-6.4% are at increased risk for development of diabetes, and intervention by lifestyle modification may be beneficial. HgbA1c greater or equal to 6.5% is considered diagnostic of diabetes. Performed By: #### 5 5454-3 ####[facility] LABCLIA [id number] OF [facility] RUBELLA IGG ANTIBODYon 12-29 RUBELLA IGG AB, QUAL Positive Normal Positive [facility] Comment on above: Order Comment: [facility] Type: BLOOD SPECIMENOrdering Facility: [facility] Address: [address] [place] [address] Result Comment: The result suggests recent or past exposure to Rubella virus or history of Rubella vaccination. Positive result may also be seen due to presence of passively-transferred antibodies. Please correlate with patient's history. Performed By: #### R UBIGG ####[facility] LABCLIA [id number] [place] [address] [place] Reagin and Treponema pallidu m IgG and IgM [Interp]on 12-29-2024 T. pallidum IgG+IgM IA Ql (S) Non-Reactive Normal Nonreactive [facility] Comment on above: Order Comment: Speci men Type: BLOOD SPECIMENOrdering Facility: [facility] Address: [address] [place] [address] Performed By: #### 5 195-3, 59894-5, 08640-3 ####[facility] LABCLIA [id number] [place] [address] [place] Reagin+T pallidum IgG+IgM Se rPl-Impon 12-29-2024 Reagin and Treponema pallidum IgG and IgM [Interp] Cannot exclude recent Treponemal infection if specimen collected within 7-10 days after appearance of suspect lesions or 2-3 weeks after an exposure. Clinical correlation is required. Normal [facility] Comment on above: Order Comment: Speci men Type: BLOOD SPECIMENOrdering Facility: [facility] Address: [address] [place] [address] Performed By: #### 5 195-3, 85156-0, 57756-5 ####[facility] LABCLIA [id number] [place] [address] [place] TYPE + SCREEN PRENATALon ABO O Normal [facility] Comment on above: Order Comment: Speci men Type: BLOOD SPECIMENOrdering Facility: [facility] Address: [address] [place] [address] Performed By: #### T SPN ####[facility] BLO[facility] BANKCLIA [id number] [place] [address] [place] Rh Nom (Bld) Positive Normal [facility] Comment on above: Order Comment: Speci men Type: BLOOD SPECIMENOrdering Facility: [facility] Address: [address] [place] [address] Performed By: #### T SPN ####[facility] BLOOD BANKCLIA [id number] [place] [id number] [place] TYPE AND SCREEN EXPIRATION 01/01/2025 23:59 Normal [facility] Comment on above: Order Comment: Speci men Type: BLOOD SPECIMENOrdering Facility: [facility] Address: [address] [place] [address] Performed By: #### T SPN ####[facility] BLOOD BANKCLIA [id number] [place] [id number] [facility] Examination level ultrasound on 12-28-2024 Indication First trimester anatomic survey History of delivery 28 and 32 weeks Impression The patient is referred for a first trimester anatomy scan, including nuchal translucency measurement as clinically indicated, in a complicated by history of delivery x 2, depression (SSRI), and a family history of Russel's disease. Aneuploidy screening was declined. - Single, live, intrauterine . - [place] rump length measurement is consistent with the [...] view: normal 4-chamber view with color: normal 7-wjimgv-cmyoklb view: normal Abdominal cord insertion: normal Stomach: [...] Read By: Scott Alcazar M.D. MATERNAL MEDICINE [facility] Radiology Study observation (narrative) Marion sethi [facility] Chasity [facility] BARBARA SCHWAB ([id number]) 4 F Date Time Provider Department 12/14/24 PAOLA HILL OBTIFFANIE During your visit today, we recorded the following information about you: Erik Galicia RN 12/14/2024 11:18 AM Signed Patient is scheduled for nuchal ultrasound on 12/28. This is [facility] day . Do you want [facility] referral for history of labor? Notes from 11/30 visit. Under plan notes :History of . Will order MFM consult for further discussion. Please order MFM consult if you want one done Paola Hill APRN.CNP 12/14/2024 11:22 AM Signed Ask one of [...] [facility]) [O09.899] Order(s):CONSULT TO MATERNAL MEDI [[id number]] Order #: [id number]: 1 FUTURE Prescriptions as of 12/14/2024 - aspirin, enteric coated (ECOTRIN LOW STRENGTH) 81 mg EC tablet Take 1 tablet by mouth once daily. - valACYclovir (VALTREX) 1 gram tablet Take 1 tablet by mouth as needed. - Qlsulmoo-Pc-Zyz-Fe- FA tab Take 1 tablet by mouth once daily. - escitalopram oxalate (LEXAPRO) 10 mg tablet Take 10 mg by mouth once daily. Problem List As Of Date 12/14/2024 Noted Resolved Supervision of high risk , antepartum *02/04/2019 History of marijuana use [F12.91] 02/04/2019 Quit smoking [Z87.891] 02/04/2019 08/06/2019 History of depression [Z86.59] 02/04/2019 Family history of [place]'s disease [Z82.0] 02/04/2019 Patient request for diagnostic [...] Encounter Status:Closed by MARCIA FARRELL on 12/14/24 [facility] BARBARA SCHWAB ([id number]) 4 F Date Time Provider Department 12/02/24 NURSE INCOME AUDITOR [facility] O[facility]WE During your visit today, we recorded the following information about you: Donaldo Desai, RN 12/02/2024 9:25 AM Signed 1st risk assessment form submitted 12/02/24 Donaldo Desai RN Allergies As of Date: 12/02/2024 Noted Allergy Reaction ADHESIVE TAPE (ROSINS) 02/04/2014 2 - Rash LATEX 2 - Rash Date Reviewed: 11/24/2024 Reviewed by: Yosi Payne APRN.ART PROFESSOR - Fully Assessed Reason for Visit: PRAF [4193] Prescriptions as of 12/02/2024 - aspirin, enteric coated (ECOTRIN LOW STRENGTH) 81 mg EC tablet Take 1 tablet by mouth once daily. - valACYclovir (VALTREX) 1 gram tablet Take 1 tablet by mouth as needed. - Enorlqpv-Uo-Vjb-Fe- FA tab Take 1 tablet by mouth once daily. - escitalopram oxalate (LEXAPRO) 10 mg tablet Take 10 mg by mouth once daily. Problem List As Of Date 12/02/2024 Noted Resolved Supervision of high risk , antepartum *02/04/2019 History of marijuana use [F12.91] 02/04/2019 Quit smoking [Z87.891] 02/04/2019 08/06/2019 History of depression [Z86.59] 02/04/2019 Family history of [place]'s disease [Z82.0] 02/04/2019 Patient request for diagnostic [...] Encounter Status:Closed by DONALDO DESAI on 12/02/24 [facility] Bacteria Ur Culton Bacteria identified Cx Nom (U) ORGANISM ID: 1 10,000 -<50,000 CFU/ml Normal urogenital jerod Normal [facility] Comment on above: Performed By: #### 6 30-4 ####[facility] LABCLIA [id number] [place] [address] [place] C. trachomatis+N. gonorrhoea e DNA AQUILINO+probe Ql (Unsp spec)on 11-30-2024 C. trachomatis rRNA AQUILINO+probe Ql (Unsp spec) Not detected Normal Not detected [facility] Comment on above: Order Comment: Speci men Type: SWABOrdering Facility: [facility] Address: [address] [place] [address] Performed By: #### T RVAMP, 52598-3 ####[facility] LABCLIA [id number] [place] [address] [place] N. gonorrhoeae rRNA AQUILINO+probe Ql (Unsp spec) Not detected Normal Not detected [facility] Comment on above: Order Comment: Speci men Type: SWABOrdering Facility: [facility] Address: [address] [place] [address] Performed By: #### T RVAMP, 33699-7 ####[facility] LABIA [id number] [place] [address] [place] CNCOon 11-30-2024 CNCO Letter Text Normal [facility] PAP TESTon 11-30-2024 ADEQUACY Normal [facility] Comment on above: Order Comment: Speci men Type: FLUID SPECIMENOrdering Facility: [facility] Address: [address] [place] [address] Result Comment: Sati sfactory for interpretation. Transformation zone present Performed By: #### L [id number] ####[facility] LABCLIA [id number] [place] [address] [place] CASE REPORT Normal [facility] Comment on above: Order Comment: Speci men Type: FLUID SPECIMENOrdering Facility: [facility] Address: [address] [place] [address] Result Comment: Gyne cologic Cytology Report Case: [id number] Authorizing Provider: Paola Hill APRN.ART PROFESSOR Collected: 11/30/2024 08:51 AM Ordering Location: OB/Gynecology Received: 12/01/2024 08:03 AM First Screen: Kelley, Briseida, CT, ASCP Specimen: Pap Test, ThinPrep, Cervix Performed By: #### L [id number] ####[facility] LABCLIA [id number] [place] [address] [place] CLINICAL HISTORY, CYTOLOGY, SNUFF GRINDER AND SCREENER Routine Exam Normal [facility] Comment on above: Order Comment: Speci men Type: FLUID SPECIMENOrdering Facility: [facility] Address: [address] [place] [address] Performed By: #### L [id number] ####[facility] LABCLIA [id number] [place] [address] [place] FINAL PERFORMING LAB Normal [facility] Comment on above: Order Comment: Speci men Type: FLUID SPECIMENOrdering Facility: [facility] Address: [address] [place] [address] Result Comment: Tech nical component, weatherseal technician screening performed at: [facility], [address] [place], [place] [id number] CLIA: [id number] Diagnostic interpretation performed at: [facility], [address] [place], [place] [id number] CLIA# [id number] Director Of Physical Education: Haider Avalos MD Performed By: #### L [id number] ####[facility] LABCLIA [id number] [place] [address] [place] INTERPRETATION, CYTOLOGY, SNUFF GRINDER AND SCREENER Normal [facility] Comment on above: Order Comment: Speci men Type: FLUID SPECIMENOrdering Facility: [facility] Address: [address] [place] [address] Result Comment: Nega tive for intraepithelial lesion or malignancy. at 1516 EDT Performed By: #### L [id number] ####[facility] LABCLIA [id number] [address] [place] [address] [place] LMP 09/11/2024 Normal [facility] Comment on above: Order Comment: Speci men Type: FLUID SPECIMENOrdering Facility: [facility] Address: [address] [place] [address] Performed By: #### L [id number] ####[facility] LABCLIA [id number] [facility] [address] [place] [address] [place] PAP DISCLAIMER COMMENT The Pap Smear is a screening test for cervical cancer. False negative results occur with all screening tests, emphasizing the need for rescreening at recommended intervals, and clinical correlation. Normal [facility] Comment on above: Order Comment: Speci men Type: FLUID SPECIMENOrdering Facility: [facility] Address: [address] [place] [address] Performed By: #### L [id number] ####[facility] LABCLIA [id number] [address] [place] [address] [place] PAP REGIONAL MARKETING DIRECTOR COMMENT This specimen has been analyzed by the FDA-approved [employer]TM System, which uses digital imaging and an enhanced artificial intelligence image analysis algorithm to identify hernadez of interest on the microscopic slide, to assist the appointment manager and pathologist in evaluating cells on ThinPrep Pap tests. Following analysis, hernadez of interest on the microscopic slide selected by the algorithm are reviewed by a appointment manager. If a sample requires hierarchical review, the pathologist will review the same hernadez of interest selected by the algorithm prior to final interpretation. Normal [facility] Comment on above: Order Comment: Speci men Type: FLUID SPECIMENOrdering Facility: [facility] Address: [address] [place], [place] [address] Performed By: #### L [id number] ####[facility] LABCLIA [id number] [facility] [address] [place] POC BUSINESS DIRECTOR ULTRASOUNDon 12-01-19 25 Indication Viability. Confirmation of [...] Read By: Paola Hill CNP MATERNAL MEDICINE [facility] Radiology Study observation (narrative) [facility] T. vaginalis DNA AQUILINO+probe Ql (Unsp spec) Not detected Normal Not detected [facility] Comment on above: Order Comment: Speci men Type: SWABOrdering Facility: [facility] Address: [address] [place] [address] Performed By: #### T RVAMP, 92927-5 ####[facility] LABCLIA [id number] OF [place] Chasity 11-25-2024 [facility] Telephone (OBGYWM) ---- BARBARA SCHWAB ([id number]) 4 F Date Time Provider Department 11/25/24 [...] Date Reviewed: 11/24/2024 Reviewed by: Yosi Payne APRN.ART PROFESSOR - Fully Assessed Prescriptions as of 12/14/2024 - aspirin, enteric coated (ECOTRIN LOW STRENGTH) 81 mg EC tablet Take 1 tablet by mouth once daily. - valACYclovir (VALTREX) 1 gram tablet Take 1 tablet by mouth as needed. - Smzjwxag-Na-Mdz-Fe- FA tab Take 1 tablet by mouth once daily. - escitalopram oxalate (LEXAPRO) 10 mg tablet Take 10 mg by mouth once daily. Problem List As Of Date 11/25/2024 Noted Resolved High risk teen , antepartum [O09.899] 02/04/2019 08/12/2022 History of marijuana use [F12.91] 02/04/2019 Quit smoking [Z87.891] 02/04/2019 08/06/2019 History of depression [Z86.59] 02/04/2019 Family history of [place]'s disease [Z82.0] 02/04/2019 Patient request for diagnostic [...] Encounter Status:Closed by ERIK GALICIA on 12/14/24 [facility] CNOVon 11-24-2024 CNOV Office Visit (UCWSTR) ---- BARBARA SCHWAB ([id number]) 4 F Date Time Provider Department 11/24/24 10:15 AM YOSI PAYNE [facility] During your visit today, we recorded the following information about you: Temperature Pulse Respiration Blood pressure 98.2 degrees 89/minute 18/minute 118/72 Weight 47.7 kg Yosi Payne, MACIEL.ART PROFESSOR 11/24/2024 10:21 AM Signed [facility] Subjective Barbara Feliciano Zaheer is a 24 [...] of care. This note was generated using 4INFO software. It may contain errors in wording, punctuation, or spelling. Yosi Payne APRN.ART PROFESSOR History and Record Review Clinical information obtained from an independent historian. History obtained from or confirmed by: parent. External record(s) reviewed: prior outpatient record. Disposition The patient was discharged. OTC Medications were advised: Procedures Allergies As of Date: 11/24/2024 Noted Allergy Reaction ADHESIVE TAPE (ROSINS) 02/04/2014 2 - Rash LATEX 2 - Rash Date Reviewed: 11/24/2024 Reviewed by: Yosi Payne APRN.ART PROFESSOR - Fu (more content not included)... Normal [facility] CNOVon 11-14-2024 CNOV Office Visit (UCWSTR) ---- BARBARA SCHWAB ([id number]) 4 F Date Time Provider Department 11/14/24 1:15 PM [facility] During your visit today, we recorded the following information about you: Temperature Pulse Respiration Blood pressure 98.4 degrees 106/minute 16/minute 108/62 Weight 48.5 kg Ann Marie Ariza HOME HEALTH ASSISTANT.ART PROFESSOR 11/14/2024 1:36 PM Signed Subjective HPI HPI [...] advised tylenol/stretching - She was seen in [place] [facility] on 11.11.2024 with normal labs, negative [...] have confirmed and edited as necessary, the [facility] Review of Systems Constitutional: Negative for chills and fever. Musculoskeletal: Positive for back pain (right flank pain). Negative for joint pain and myalgias. Skin: Negative for itching and rash. All other systems reviewed and are negative. Objective Physical Exam History and Record Review External record(s) reviewed: prior labs/imaging and prior outpatient record. Findings from review of outpatient records: [place] [facility] on 11.11.2024 - negative for uti, labs normal Findings from review of prior labs/imaging: Previous Renal Function Panel Reviewed No results within last 365 days. Differential Diagnoses - musculoskeletal Recording using Kannact software for draft documentation of the visit was discussed with the patient/authorized career services representative; all questions welcomed and answered. Patient/authorized career services representative agreed to proceed ASSESSMENT/PLAN: 1. Acute [...] warranting prompt ER evaluation. Ann Marie Ariza APRN.ART PROFESSOR Referring Provider: SELF [200] Allergies As of Date: 11/14/2024 Noted Allergy Reaction ADHESIVE TAPE (ROSINS) 02/04/2014 2 - Rash LATEX 2 - Rash Date Reviewed: 11/14/2024 Reviewed by: Bel Monteiro MA - Fully Assessed Reason for Visit: Low Back Pain [126] Cmt: right side x 1 week Primary Visit Diagnosis:Acute midline low back pain without sciatica [M54.50] Order(s):US KIDNEY/BLADDER [[id number]] Order #: [id number] FUTURE UA DIP, URINE (POC) [[id number]] Order #: [id number] #:[id number] Prescriptions as of 11/14/2024 - Lprkekgv-Wt-Gci-Fe- FA tab Take 1 tablet by mouth once [...] of depression [Z86.59] 02/04/2019 Family history of [place]'s disease [Z82.0] 02/04/2019 Patient request for diagnostic testing [Z01.89] 02/04/2019 08/06/2019 Anemia during in second trimester [O9*05/18/2019 08/06/2019 Threatened premature labor in third trimester [*06/18/2019 08/06/2019 del (more content not included)... Normal [facility] UA DIP, URINE (POC)on 2024 BILIRUBIN UA (POCT) Negative Negative [facility] CLARITY UA (POCT) Clear [facility] COLOR UA (POCT) Yellow [facility] GLUCOSE UA (POCT) Negative Negative mg/dL [facility] Hemoglobin Ql (U) Negative Negative [facility] KETONE UA (POCT) Negative Negative mg/dL [facility] LEUKOCYTES UA (POCT) Negative Negative [facility] NITRITE UA (POCT) Negative Negative [facility] PH UA (POCT) 7 4.5 - 8.0 [facility] Protein Ql (U) Negative Negative mg/dL [facility] SPECIFIC GRAVITY UA (POCT) 1.015 1.005 - 1.030 [facility] UROBILINOGEN UA (POCT) 0.2 Luz Maria l E.U./dL [facility] Location:[facility], [address] [place] [address], [place], [place], [id number] [place] [address] POINT OF CARE [facility] Absolute lymphocyte countOrd ered By: Michele Mar on 11-11-2024 Lymphocytes Auto (Unsp spec) [#/Vol] 2.04 10*3/uL 0.83-4.51 [facility] Absolute neutrophil countOrd ered By: Michele Mar on 11-11-2024 Neutrophils (Bld) [#/Vol] 8.4 10*3/uL High 2.0-7.7 [facility] Amphetamine detection with 1 000 ng/mL as cutoffOrdered By: Michele Mar on 11-11-2024 Amphetamines Screen method >1000 ng/mL Ql (U) Negative < 200 ng/mL [facility] Anion gap in Serum or Plasma Ordered By: Michele Mar on 11-11-2024 Anion gap [Moles/Vol] 10 mmol/L 5-15 [facility] Automated lymphocyte count a s percentage of total leukocytesOrdered By: Michele Mar on 11-11-2024 Lymphocytes/100 WBC Auto (Unsp spec) 18.5 % Low 19-41 [facility] BUN/creatinine ratioOrdered By: Michele Mar on 11-11-2024 Urea nitrogen/Creatinine [Mass ratio] 8.4 mg/mg Low 10-20 [facility] Basophil percentageOrdered B y: Michele Mar on 11-11-2024 Basophils/100 WBC (Bld) 0.5 % 0-1 [facility] Bilirubin Test strip Ql (U)O rdered By: Michele Mar on 11-11-2024 Bilirubin Ql (U) Negative Negative [facility] Bilirubin, totalOrdered By: Michele Mar on 11-11-2024 Bilirubin [Mass/Vol] 0.83 mg/dL 0.00-1.[address] [facility] CBC W/Diff, Automatedon 05- Absolute Lymph 2.04 X10 3/uL Normal 0.83-4.51 [facility] Comment on above: Performed By: #### L 500.4050, L100.0100 #### [facility] Laboratory [address] [place], [address] Absolute Neut 8.4 X10 3/uL High 2.0-7.7 [facility] Comment on above: Performed By: #### L 500.4050, L100.0100 #### [facility] [address] [place], [address] Basophils/100 WBC (Bld) 0.5 % Normal 0-1 [facility] Comment on above: Performed By: #### L 500.4050, L100.0100 #### [facility] [address] [place], [address] Eosinophils/100 WBC (Bld) 0.1 % Normal 0-5 [facility] Comment on above: Performed By: #### L 500.4050, L100.0100 #### [facility] [address] [place], [address] Erythrocyte distribution width (RBC) [Ratio] 13.2 % Normal 11.6-14.6 [facility] Comment on above: Performed By: #### L 500.4050, L100.0100 #### [facility] [address] [place], [address] Hematocrit (Bld) [Volume fraction] 37.9 % Normal 37-47 [facility] Comment on above: Performed By: #### L 500.4050, L100.0100 #### [facility] [address] [place], [address] Hemoglobin (Bld) [Mass/Vol] 12.9 g/dL Normal 12.0-15.0 [facility] Comment on above: Performed By: #### L 500.4050, L100.0100 #### [facility] [address] [place], [address] IG% 0.300 Normal 0.0-0.9 [facility] Comment on above: Result Comment: IG% - Immature Granulocytes (promyelocytes, myelocytes and metamyelocytes) > 1% indicates that a LEFT SHIFT is Present. Performed By: #### L 500.4050, L100.0100 #### [facility] [address] [place], [address] Lymphocytes/100 WBC (Bld) 18.5 % Low 19-41 [facility] Comment on above: Performed By: #### L 500.4050, L100.0100 #### [facility] [address] [place], [address] MCH (RBC) [Entitic mass] 30.5 pg Normal 27.0-32.0 [facility] Comment on above: Performed By: #### L 500.4050, L100.0100 #### [facility] [address] [place], [address] MCHC (RBC) [Mass/Vol] 34.0 g/dL Normal 32-36 [facility] Comment on above: Performed By: #### L 500.4050, L100.0100 #### [facility] [facility] [address] [place], [address] MCV (RBC) [Entitic vol] 89.6 fL Normal 81-99 [facility] Comment on above: Performed By: #### L 500.4050, L100.0100 #### [facility] [address] [place], [address] Monocytes/100 WBC (Bld) 4.2 % Normal 0-10 [facility] Comment on above: Performed By: #### L 500.4050, L100.0100 #### [facility] [address] [place], [address] Neutrophils/100 WBC (Bld) 76.4 % High 47-70 [facility] Comment on above: Performed By: #### L 500.4050, L100.0100 #### [facility] [address] [place], [address] Nucleated RBC (Bld) [#/Vol] 0 10*3/uL Normal 0-5 [facility] Comment on above: Performed By: #### L 500.4050, L100.0100 #### [facility] [address] [place], [address] Platelet mean volume (Bld) [Entitic vol] 10.9 fL Normal 6.2-12.0 [facility] Comment on above: Performed By: #### L 500.4050, L100.0100 #### [facility] [address] [place], [address] Platelets (Bld) [#/Vol] 279 10*3/uL Normal 150-450 [facility] Comment on above: Performed By: #### L 500.4050, L100.0100 #### [facility] [address] [place], [address] RBC (Bld) [#/Vol] 4.23 10*6/uL Normal 4.2-5.4 [facility] Comment on above: Performed By: #### L 500.4050, L100.0100 #### [facility] [address] [place], [address] RDW SD 43.1 fl Normal 35.1-43.9 [facility] Comment on above: Performed By: #### L 500.4050, L100.0100 #### [facility] [address] [place], [address] WBC (Bld) [#/Vol] 11.0 10*3/uL Normal 4.4-11.0 [facility] Comment on above: Performed By: #### L 500.4050, L100.0100 #### [facility] [address] [place], [address] Carbon dioxide, total [Moles /volume] in Central venous bloodOrdered By: Michele Mar on 11-11-2024 CO2 [Moles/Vol] 21.4 mmol/L 21.0-32.0 [facility] Chloride assayOrdered By: Angelito Mar on 11-11-2024 Chloride [Moles/Vol] 106 mmol/L 98-[address] [facility] Comprehensive Metabolic Prof ilon 11-11-2024 Albumin [Mass/Vol] 4.5 g/dL Normal 3.5-5.0 [facility] Comment on above: Performed By: #### L 500.4050, L100.0100 #### [facility] [address] [place], [address] Albumin/Globulin [Mass ratio] 2.9 {ratio} High 0.9-2.4 [facility] Comment on above: Performed By: #### L 500.4050, L100.0100 #### [facility] [address] [place], [address] ALK PHOS 39 U/L Normal 35-104 [facility] Comment on above: Performed By: #### L 500.4050, L100.0100 #### [facility] [address] [place], [address] ALT [Catalytic activity/Vol] 6 U/L Normal <=34 [facility] Comment on above: Performed By: #### L 500.4050, L100.0100 #### [facility] [address] [place], [address] AST [Catalytic activity/Vol] 18 U/L Normal <=31 [facility] Comment on above: Performed By: #### L 500.4050, L100.0100 #### [facility] [address] [place], [address] Bilirubin [Mass/Vol] 0.83 mg/dL Normal 0.00-1.[address] [facility] Comment on above: Performed By: #### L 500.4050, L100.0100 #### [facility] [address] [place], [address] BUN/CRE 8.4 RATIO Low 10-20 [facility] Comment on above: Performed By: #### L 500.4050, L100.0100 #### [facility] [address] [place], [address] Calcium [Mass/Vol] 8.8 mg/dL Normal 7.6-11.0 [facility] Comment on above: Performed By: #### L 500.4050, L100.0100 #### [facility] [address] [place], [address] Chloride [Moles/Vol] 106 mmol/L Normal 98-[address] [facility] Comment on above: Performed By: #### L 500.4050, L100.0100 #### [facility] [address] [place], [address] CO2 [Moles/Vol] 21.4 mmol/L Normal 21.0-32.0 [facility] Comment on above: Performed By: #### L 500.4050, L100.0100 #### [facility] [address] [place], [address] Creatinine [Mass/Vol] 0.55 mg/dL Low 0.70-1.20 [facility] Comment on above: Performed By: #### L 500.4050, L100.0100 #### [facility] [address] [place], [address] ECRCL 121.32 ml/min Normal 50-250 [facility] Comment on above: Performed By: #### L 500.4050, L100.0100 #### [facility] [address] [place], [address] GAP 10 Normal 5-15 [facility] Comment on above: Performed By: #### L 500.4050, L100.0100 #### [facility] [address] [place], [address] GFR/1.73 sq M.predicted among non-blacks MDRD (S/P/Bld) [Vol rate/Area] 133 mL/min/{1.73_m2} Normal >60 [facility] Comment on above: Result Comment: mL/m in/1.73m2 CKD-EPI Creatinine Equation (2020) Performed By: #### L 500.4050, L100.0100 #### [facility] [address] [place], [address] Globulin (S) [Mass/Vol] 1.5 g/dL Low 2.2-4.2 [facility] Comment on above: Performed By: #### L 500.4050, L100.0100 #### [facility] [address] [place], [address] Glucose [Mass/Vol] 73 mg/dL Normal 70-99 [facility] Comment on above: Performed By: #### L 500.4050, L100.0100 #### [facility] [address] [place], [address] Potassium [Moles/Vol] 3.6 mmol/L Normal 3.3-5.1 [facility] Comment on above: Performed By: #### L 500.4050, L100.0100 #### [facility] [address] [place], [address] Sodium [Moles/Vol] 138 mmol/L Normal 133-145 [facility] Comment on above: Performed By: #### L 500.4050, L100.0100 #### [facility] [address] [place], [address] T PROT 6.1 g/dL Normal 5.9-8.4 [facility] Comment on above: Performed By: #### L 500.4050, L100.0100 #### [facility] [address] [place], [address] Urea nitrogen [Mass/Vol] 5 mg/dL Normal 4-19 [facility] Comment on above: Performed By: #### L 500.4050, L100.0100 #### [facility] [address] [place], [address] Emergency Department Summary on 11-11-2024 Emergency Department Summary [facility] Medical Records Department [address] [place] [address] Emergency Department Summary 11/11/24 MR#: [id number] Acct: [id number] Name: BARBARA SHCWAB Rep #: [id number] : 2000 24 From: Michele Mar MD [...] is 6 weeks gestation currently and sees [employer] at the [facility]. She and her state that an ultrasound [...] no dysuria or hematuria, unrelieved with Tylenol. [facility] Medical History IBS (irritable bowel syndrome) Depression GERD (gastroesophageal reflux disease) Home Medications ???Medication ???Instructions ???Recorded ???Last Taken ???Type Prilosec 1 tab PO PRN ACID REFLUX 06/26/19 05/01/21 06:30 History valacyclovir 1 gram tablet 1,000 mg PO DAILY PRN hsv 11/11/20 05/01/21 06:30 History (Valtrex) [id number] 1 mg 1 tab PO DAILY 03/07/21 [...] weeks gestation. She will follow-up with her [employer]. I feel she can be discharged safely home with follow-up. Return instructions were reviewed. Disposition is discharged home in stable condition. History Record Review Discussion w/independent historian: Patient Additional record(s) reviewed:: Prior ED visit (Noncontributory to current chief complaint) Lab Data Attestation: Tom santiago (more content not included)... Normal [facility] Eosinophil percentageOrdered By: Michele Mar on 11-11-2024 Eosinophils/100 WBC (Bld) 0.1 % 0-5 [facility] Erythrocyte distribution wid th ratioOrdered By: Michele Mar on 11-11-2024 Erythrocyte distribution width (RBC) [Ratio] 13.2 % 11.6-14.6 [facility] Erythrocyte distribution wid th standard deviationOrdered By: Michele Mar on 11-11-2024 Erythrocyte distribution width (RBC) [Ratio] 43.1 fl 35.1-43.9 [facility] Glomerular filtration rate ( GFR) estimation/1.73 sq m using serum, plasma, or whole bOrdered By: Michele Mar on 11-11-2024 GFR/1.73 sq M.predicted among non-blacks MDRD (S/P/Bld) [Vol rate/Area] 133 mL/min/{1.73_m2} >60 [facility] Comment on above: mL/min/1.73m2 CKD-EP I Creatinine Equation (2020) Hematocrit Auto (Bld) [Volum e fraction]Ordered By: Michele Mar on 11-11-2024 Hematocrit (Bld) [Volume fraction] 37.9 % 37-47 [facility] Hemoglobin measurementOrdere d By: Michele Mar on 11-11-2024 Hemoglobin (Bld) [Mass/Vol] 12.9 g/dL 12.0-15.0 [facility] Immature granulocytes/100 WB C Auto (Bld)Ordered By: Michele Mar on 11-11-2024 Immature granulocytes/100 WBC (Bld) 0.300 % 0.0-0.9 [facility] Comment on above: IG% - Immature Granu locytes (promyelocytes, myelocytes and metamyelocytes) > 1% indicates that a LEFT SHIFT is Present. Ketones Test strip Ql (U)Ord ered By: Michele Mar on 11-11-2024 Ketones Ql (U) 15 mg/dl High Negative [facility] Kidney and Bladderon 025 Kidney and Bladder [facility] Imaging Services [address] [place] [address] Kidney and Bladder MR#: [id number] Acct: [id number] Name: BARBARA SCHWAB Rep #: [id number] : 2000 F 24 From: Ru Sethi PCP: Dr. Melissa Cabezas MD Status: [facility] Study: Kidney and Bladder Date of Exam: 11/11/24 Exam# [id number] Ordering Dr: Michele Mar MD PROCEDURE: KIDNEY AND BLADDER 11/11/2024 REASON FOR EXAM: RIGHT FLANK PAIN TECHNIQUE: Bilateral renal ultrasound. COMPARISON: None. FINDINGS: Kidneys: No renal mass is seen [place]: No significant hydronephrosis is seen on either [...] 2. No evidence of hydronephrosis. Reading Location: [place] [address] CC: Dr. Michele Mar MD; Dr. Melissa Cabezas MD Physician Office Clin Asst: Signed Normal [facility] Laboratory - Chemistry and C hemistry - challengeOrdered By: Michele Mar on 11-11-2024 AST [Catalytic activity/Vol] 18 U/L <32 [facility] MCV (mean corpuscular volume ) determinationOrdered By: Michele Mar on 11-11-2024 MCV (RBC) [Entitic vol] 89.6 fL 81-99 [facility] Mean corpuscular hemoglobin (MCH) determinationOrdered By: Michele Mar on 11-11-2024 MCH (RBC) [Entitic mass] 30.5 pg 27.0-32.0 [facility] Mean corpuscular hemoglobin concentration (MCHC) determinationOrdered By: Michele Mar on 11-11-2024 MCHC (RBC) [Mass/Vol] 34.0 g/dL 32-36 [facility] Mean platelet volume determi nationOrdered By: Michele Mar on 11-11-2024 Platelet mean volume (Bld) [Entitic vol] 10.9 fL 6.2-12.0 [facility] Microscopic analysis of urin e for red blood cells (RBC)Ordered By: Michele Mar on 11-11-2024 Microscopic analysis of urine for red blood cells (RBC) 0-5 SEEN /hpf 0-5 [facility] Monocyte percentageOrdered B y: Michele Mar on 11-11-2024 Monocytes/100 WBC (Bld) 4.2 % 0-10 [facility] Mucus LM Ql (Urine sed)Order ed By: Michele Mar on 11-11-2024 Mucus Ql (Urine sed) 0 SEEN /hpf [facility] Neutrophil percentageOrdered By: Michele Mar on 11-11-2024 Neutrophils/100 WBC (Bld) 76.4 % High 47-70 [facility] Nitrite Test strip Ql (U)Ord ered By: Michele Mar on 11-11-2024 Nitrite Ql (U) Negative Negative [facility] No Panel InformationOrdered By: Michele Mar on 11-11-2024 Urine Buprenorphine Qualitative Negative < 200 ng/mL [facility] Urine Oxycodone Screen Negative < 100 ng/mL [facility] Nucleated red blood cell per centageOrdered By: Michele Mar on 11-11-2024 Nucleated RBC/100 WBC (Bld) [Ratio] 0 % 0-5 [facility] Platelet countOrdered By: Angelito Mar on 11-11-2024 Platelets (Bld) [#/Vol] 279 10*3/uL 150-450 [facility] Potassium measurement (mass/ volume)Ordered By: Michele Mar on 11-11-2024 Potassium (Unsp spec) [Mass/Vol] 3.6 mmol/L 3.3-5.1 [facility] Protein Test strip Ql (U)Ord ered By: Michele Mar on 11-11-2024 Protein Ql (U) Negative Negative [facility] Quantitative urine opiates m easurementOrdered By: Michele Mar on 11-11-2024 Opiates Ql (U) Negative < 300 ng/mL [facility] RBC Auto (Bld) [#/Vol]Ordere d By: Michele Mar on 11-11-2024 RBC (Bld) [#/Vol] 4.23 10*6/uL 4.2-5.4 [facility] Screening urine fentanyl laine surementOrdered By: Michele Mar on 11-11-2024 fentaNYL Screen Ql (U) Negative [facility] Serum creatinine measurement (mass/volume)Ordered By: Michele Mar on 11-11-2024 Creatinine [Mass/Vol] 0.55 mg/dL Low 0.70-1.20 [facility] Serum globulin measurementOr dered By: Michele Mar on 11-11-2024 Globulin (S) [Mass/Vol] 1.5 g/dL Low 2.2-4.2 [facility] Serum glucose measurement (m ass/volume)Ordered By: Michele Mar on 11-11-2024 Glucose [Mass/Vol] 73 mg/dL 70-99 [facility] Serum or plasma alanine tee otransferase (ALT) measurementOrdered By: Michele Mar on 11-11-2024 ALT [Catalytic activity/Vol] 6 U/L <35 [facility] Serum or plasma albumin xochitl urement (mass/volume)Ordered By: Michele Mar on 11-11-2024 Albumin [Mass/Vol] 4.5 g/dL 3.5-5.0 [facility] Serum or plasma albumin/glob ulin mass ratioOrdered By: Michele Mar on 11-11-2024 Albumin/Globulin [Mass ratio] 2.9 {ratio} High 0.9-2.4 [facility] Serum or plasma alkaline dee sphatase measurementOrdered By: Michele Mar on 11-11-2024 ALP [Catalytic activity/Vol] 39 U/L 35-104 [facility] Serum or plasma calcium xochitl urement (mass/volume)Ordered By: Michele Mar on 11-11-2024 Calcium [Mass/Vol] 8.8 mg/dL 7.6-11.0 [facility] Serum or plasma urea nitroge n measurement (mass/volume)Ordered By: Michele Mar on 11-11-2024 Urea nitrogen [Mass/Vol] 5 mg/dL 4-19 [facility] Sodium levelOrdered By: Michele Mar on 11-11-2024 Sodium [Moles/Vol] 138 mmol/L 133-145 [facility] Squamous epithelial cells de tection in urine sediment by light microscopyOrdered By: Michele Mar on 11-11-2024 Epithelial cells.squamous LM Ql (Urine sed) 0-5 SEEN /hpf 11-13 [facility] Total proteinOrdered By: Gertrudis Mar on 11-11-2024 Protein [Mass/Vol] 6.1 g/dL 5.9-8.4 [facility] Urinalysis, Completeon 11-11 EPI,SQUAMOUS 0-5 SEEN Normal - [facility] Comment on above: Order Comment: JASSON CTOR TO SPECIFY Performed By: #### L 400.0001 #### [facility] [address] [place], [address] RBC 0-5 SEEN Normal 0-5 [facility] Comment on above: Order Comment: JASSON CTOR TO SPECIFY Performed By: #### L 400.0001 #### [facility] [address] [place], [address] WBC 0-5 SEEN Normal 0-5 [facility] Comment on above: Order Comment: JASSON CTOR TO SPECIFY Performed By: #### L 400.0001 #### [facility] [address] [place], [address] BACTERIA 0 SEEN Normal None Seen [facility] Comment on above: Order Comment: JASSON CTOR TO SPECIFY Performed By: #### L 400.0001 #### [facility] [address] [place], [address] Mucus Ql (Urine sed) 0 SEEN Normal [facility] Comment on above: Order Comment: COLLE CTOR TO SPECIFY Performed By: #### L 400.0001 #### [facility] [address] [place], [address] Urine Drug Screen (VISTA)on 11-11-2024 AMPHETAMINES Negative Normal <1000 ng/mL [facility] Comment on above: Performed By: #### L 505.5000 #### [facility] [address] [place] [id number] BARBITIURATES Negative Normal < 200 ng/mL [facility] Comment on above: Performed By: #### L 505.5000 #### [facility] Laboratory [facility] [address] [place] [address] BENZODIAZIPINE Negative Normal < 200 ng/mL [facility] Comment on above: Performed By: #### L 505.5000 #### [facility] Laboratory [facility] [place] [address] BUP Ur Drug Scr Negative Normal < 200 ng/mL [facility] Comment on above: Performed By: #### L 505.5000 #### [facility] Laboratory [address] [place] [address] Ave[address] [place] [address] COCAINE Negative Normal < 300 ng/mL [facility] Comment on above: Performed By: #### L 505.5000 #### [facility] [address] [place] [address] Fentanyl Negative Normal [facility] Comment on above: Performed By: #### L 505.5000 #### [facility] [address] [place] [address] METHADONE Negative Normal < 300 ng/mL [facility] Comment on above: Performed By: #### L 505.5000 #### [facility] Laboratory [facility] [address] [facility] [address] OPIATES Negative Normal < 300 ng/mL [facility] Comment on above: Performed By: #### L 505.5000 #### [facility] [address] [place] [address] OXYCODONE Negative Normal < 100 ng/mL [facility] Comment on above: Performed By: #### L 505.5000 #### [facility] [address] [place] [address] PCP Negative Normal < 25 ng/mL [facility] Comment on above: Performed By: #### L 505.5000 #### [facility] [address] [place] [address] THC Negative Normal < 50 ng/mL [facility] Comment on above: Performed By: #### L 505.5000 #### [facility] [address] [place] [address] AMPHETAMINES Normal <1000 ng/mL [facility] Comment on above: Result Comment: Canc elled via OM: MD Ordered Performed By: #### L 505.5000 #### [facility] [address] [place] [address] BARBITIURATES Normal < 200 ng/mL [facility] Comment on above: Result Comment: Canc elled via OM: MD Ordered Performed By: #### L 505.5000 #### [facility] [address] [place] [address] BENZODIAZIPINE Normal < 200 ng/mL [facility] Comment on above: Result Comment: Canc elled via OM: MD Ordered Performed By: #### L 505.5000 #### [facility] [address] [place] [address] BUP Ur Drug Scr Normal < 200 ng/mL [facility] Comment on above: Result Comment: Canc elled via OM: MD Ordered Performed By: #### L 505.5000 #### [facility] [address] [place], [address] COCAINE Normal < 300 ng/mL [facility] Comment on above: Result Comment: Canc elled via OM: MD Ordered Performed By: #### L 505.5000 #### [facility] [address] [place], [address] Fentanyl Normal [facility] Comment on above: Result Comment: Canc elled via OM: MD Ordered Performed By: #### L 505.5000 #### [facility] [address] [place], [address] METHADONE Normal < 300 ng/mL [facility] Comment on above: Result Comment: Canc elled via OM: MD Ordered Performed By: #### L 505.5000 #### [facility] [address] [place], [address] OPIATES Normal < 300 ng/mL [facility] Comment on above: Result Comment: Canc elled via OM: MD Ordered Performed By: #### L 505.5000 #### [facility] [address] [place], [address] OXYCODONE Normal < 100 ng/mL [facility] Comment on above: Result Comment: Canc elled via OM: MD Ordered Performed By: #### L 505.5000 #### [facility] [address] [place], [address] PCP Normal < 25 ng/mL [facility] Comment on above: Result Comment: Canc elled via OM: MD Ordered Performed By: #### L 505.5000 #### [facility] [address] [place], [address] THC Normal < 50 ng/mL [facility] Comment on above: Result Comment: Canc elled via OM: MD Ordered Performed By: #### L 505.5000 #### [facility] [address] [place], [address] Urine benzodiazepine levelOr dered By: Michele Mar on 11-11-2024 Benzodiazepines Ql (U) Negative < 200 ng/mL [facility] Urine clarityOrdered By: Gertrudis Mar on 11-11-2024 Clarity (U) Clear Clear [facility] Urine cocaine levelOrdered B y: Michele Mar on 11-11-2024 Cocaine Ql (U) Negative < 300 ng/mL [facility] Urine color determinationOrd ered By: Michele Mar on 11-11-2024 Color (U) Straw Yellow [facility] Urine ujqtl-7-smfglapamltoqr abinol (THC) measurementOrdered By: Michele Mar on 11-11-2024 Cannabinoids Screen Ql (U) Negative < 50 ng/mL [facility] Urine glucose detectionOrder ed By: Michele Mar on 11-11-2024 Glucose Ql (U) Normal mg/dl Normal [facility] Urine leukocyte esterase det ection by dipstickOrdered By: Michele Mar on 11-11-2024 Leukocyte esterase Test strip Ql (U) 25 /ul High Negative [facility] Urine pHOrdered By: Michele carr on 11-11-2024 pH (U) 6.5 [pH] 5.0 - 8.0 [facility] Urine phencyclidine (PCP) de tectionOrdered By: Michele Mar on 11-11-2024 Phencyclidine Ql (U) Negative < 25 ng/mL [facility] Urine sediment bacteria coun t by microscopy (number/high power field)Ordered By: Michele Mar on 11-11-2024 Bacteria LM.HPF (Urine sed) [#/Area] 0 /[HPF] None Seen [facility] Urine specific gravity measu rementOrdered By: Michele Mar on 11-11-2024 Specific gravity (U) [Rel density] 1.010 1.002-1.030 [facility] Urine urobilinogen measureme ntOrdered By: Michele Mar on 11-11-2024 Urobilinogen Ql (U) Normal mg/dl Normal [facility] White blood cell (WBC) count Ordered By: Michele Mar on 11-11-2024 WBC (Bld) [#/Vol] 11.0 10*3/uL 4.4-11.0 [facility] White blood cell countOrdere d By: Michele Mar on 11-11-2024 White blood cell count 0-5 SEEN /hpf 0-5 [facility] Examination level ultrasound on 11-10-2024 Indication [...] Read By: Bobbi Howard M.D. 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 Encounter Diagnosis ICD-10-CM 1. History of ectopic Z87.59 2. Encounter for test, result positive (HCC) Z32.01 Please see report under imaging tab. Bobbi Howard MD November 10, 2024 8:54 AM Referring Provider: REJI DING [[id number]] Allergies As of Date: 11/09/2024 Noted Allergy Reaction ADHESIVE TAPE (ROSINS) 02/04/2014 2 - Rash LATEX 2 - Rash Date Reviewed: 11/08/2024 Reviewed by: Rufina Barron LPN - Fully Assessed Visit Diagnoses:History of ectopic [Z87.59] Encounter for test, result positive (HCC) [Z32.01] Order(s):OBSTETRIC ULTRASOUND WHI [[id number]] Order #: [id number]. #:[id number] -VIEWPOINTQty: 1 Prescriptions as of 11/10/2024 - Cywkuojg-Pu-Grl-Fe- FA tab Take 1 tablet by mouth once [...] Status:Closed by BOBBI HOWARD on 11/10/24 Normal [facility] Examination level ultrasound on 11-09-2024 Radiology Study observation (narrative) Marion Caruso 11-08-2024 CNOV Office Visit (UCWSTR) ---- BARBARA SCHWAB ([id number]) 4 F Date Time Provider Department 11/08/24 9:15 AM ALLEN WILSON During your visit today, we recorded the following information about you: Temperature Pulse Respiration Blood pressure 97.3 degrees 97/minute 18/minute 102/70 Weight 47.9 kg Allen Wilson APRN.ART PROFESSOR 11/08/2024 10:15 AM Signed [facility] [...] Laterality Date NONE SALPINGECTOMY Right 04/01/2024 laparoscopic, [facility] for ectopic ALLERGIES Adhesive Tape (Rosins) and Latex MEDICATIONS Ysqkwcod-Yw-Omn-Fe- FA tab Take 1 tablet by mouth once [...] Diabetes Maternal Grandmother Hypertension Maternal Grandmother other ([place]'s Disease) Maternal Grandmother Cancer Maternal Grandfather Lung [...] pt advised F/u with pcp if s/s persist/worsen/lund ge Urgent f/u for red flag symptoms Allen Wilson APRN.ART PROFESSOR History and Record Review External record(s) reviewed: [...] sciatica [M54.50] Prescriptions as of 11/08/2024 - Egvpwwsr-Lv-Zzg-Fe- FA tab Take 1 tablet by mouth once daily. - ondansetron orally disintegrating (ZOFRAN ODT) 4 mg disintegrating tablet Take (more content not included)... Normal [facility] B-HCG SerPl-aCncon 5 [place] [address].0 m[IU]/mL High <5.0 [facility] Comment on above: Order Comment: Zachery jin Type: BLOOD SPECIMENOrdering Facility: [facility] Address: [address] [place] [address] Result Comment: DESTIN TITATIVE HCG NORMAL RANGES Weeks of Gestation (Weeks Since LMP) 3 Weeks (5.8-71.2 mIU/mL) 4 Weeks (9.5-750 mIU/mL) 5 Weeks (217-7138 mIU/mL) 6 Weeks (158-40573 mIU/mL) 7 Weeks (3697-759701 mIU/mL) 8 Weeks (91981-464359 mIU/mL) 9 Weeks (54728-264982 mIU/mL) 10 Weeks (10483-196029 mIU/mL) 12 Weeks (23483-494684 mIU/mL) Referenced to 4th IS of [facility] Performed By: #### 2 1198-7 ####[facility] LABCLIA [id number] [place] [address] [place] B-HCG SerPl-aCncon 5 HCG.beta subunit Qn 612.8 m[IU]/mL High <5.0 [facility] Comment on above: Order Comment: Speci men Type: BLOOD SPECIMENOrdering Facility: [facility] Address: [address] [place] [address] Result Comment: DESTIN TITATIVE HCG NORMAL RANGES Weeks of Gestation (Weeks Since LMP) 3 Weeks (5.8-71.2 mIU/mL) 4 Weeks (9.5-750 mIU/mL) 5 Weeks (217-7138 mIU/mL) 6 Weeks (158-76692 mIU/mL) 7 Weeks (3697-168655 mIU/mL) 8 Weeks (39583-461809 mIU/mL) 9 Weeks (53013-124690 mIU/mL) 10 Weeks (25582-333781 mIU/mL) 12 Weeks (39661-674434 mIU/mL) Referenced to 4th IS of [facility] Performed By: #### 2 1198-7 ####[facility] LABCLIA [id number] [place] [address] [place] B-HCG SerPl-aCncon 5 HCG.beta subunit Qn 264.9 m[IU]/mL High <5.0 [facility] Comment on above: Order Comment: Speci men Type: BLOOD SPECIMENOrdering Facility: [facility] Address: [address] [place] [address] Result Comment: DESTIN TITATIVE HCG NORMAL RANGES Weeks of Gestation (Weeks Since LMP) 3 Weeks (5.8-71.2 mIU/mL) 4 Weeks (9.5-750 mIU/mL) 5 Weeks (217-7138 mIU/mL) 6 Weeks (158-16333 mIU/mL) 7 Weeks (3697-835965 mIU/mL) 8 Weeks (28911-660849 mIU/mL) 9 Weeks (13610-620336 mIU/mL) 10 Weeks (35420-691643 mIU/mL) 12 Weeks (73279-446705 mIU/mL) Referenced to 4th IS of [facility] Performed By: #### 2 1198-7 ####[facility] LABCLIA [id number] [place] [address] [place] B-HCG SerPl-aCncon 5 HCG.beta subunit Qn 89.4 m[IU]/mL High <5.0 [facility] Comment on above: Order Comment: Speci men Type: BLOOD SPECIMENOrdering Facility: [facility] Address: [address] [place] [address] Result Comment: DESTIN TITATIVE HCG NORMAL RANGES Weeks of Gestation (Weeks Since LMP) 3 Weeks (5.8-71.2 mIU/mL) 4 Weeks (9.5-750 mIU/mL) 5 Weeks (217-7138 mIU/mL) 6 Weeks (158-03300 mIU/mL) 7 Weeks (3697-035482 mIU/mL) 8 Weeks (73782-588891 mIU/mL) 9 Weeks (17029-086277 mIU/mL) 10 Weeks (82561-355767 mIU/mL) 12 Weeks (32388-159095 mIU/mL) Referenced to 4th IS of [facility] Performed By: #### 2 1198-7 ####[facility] LABCLIA [id number] [place] [address] [place] UA DIP,URINE HCG (POC)on Beta HCG ( test) Ql (U) Positive Abnormal Negative [facility] Comment on above: Location:[facility], [address] [place], [address] Interpretation and review of laboratory results Abnormal [facility] Social Worker Delinquency Prevention (POCT) Internal QC OK [facility] Location:[facility], [address], [place], [place], [id number] [place] [address] POINT OF CARE [facility] CNOVon 10-14-2024 CNOV Office Visit (UCWSTR) ---- BARBARA SCHWAB ([id number]) 4 F Date Time Provider Department 10/14/24 8:45 AM NILDA CASTELLANOS [facility] During your visit today, we recorded the following information about you: Temperature Pulse Respiration Blood pressure 97.2 degrees 102/minute 18/minute 124/87 Weight Last Period 46 kg 10/11/24 Nilda Castellanos APRN.ART PROFESSOR 10/14/2024 9:21 AM Signed [facility] Subjective Barbara Schwab is a 24 year old adult. Patient presents with: Diarrhea: Vomiting, stomach pain x 4 days 24 year old adult with PMH GERD, IBS, depression, and anxiety presents for illness Acute onset 4 days ago Lower abdominal pain [place] like punched in stomach + emesis x [...] history is provided by the patient. No sign language teacher was used. Vomiting This is a [...] Laterality Date NONE SALPINGECTOMY Right 04/01/2024 laparoscopic, [facility] for ectopic ALLERGIES Adhesive Tape (Rosins) and Latex MEDICATIONS busPIRone (BUSPAR) 10 mg tablet Take 10 mg by mouth three times a day. escitalopram oxalate (LEXAPRO) 10 mg tablet Take 10 mg by mouth once daily. PNV Comb.Gc00-Ycnu,Carb onyl-FA 29 mg iron- 1 mg tab Take [...] (Patient not taking: Reported on 07/09/2023) vit 68-yrwe-zdoxf-dha (PRENATE MINI, FERR ASP GLYCIN,) 18-1-350 mg cap Take 1 Dose by mouth once daily. (Patient not taking: Reported on 09/20/2023) FAMILY HISTORY Problem Relation Age of Onset Hypertension Mother other (insomnia) Mother other (fibromyalgia) Mother other (IBS) Mother Heart Attack Father Depression Sister No Known Problems Brother Diabetes Maternal Grandmother Hypertension Maternal Grandmother other ([place]'s Disease) Maternal Grandmother Cancer Maternal Grandfather Lung [...] for color change, pallor, rash and wound. Allergic/Immunologi c: Negative for environmental allergies, food allergies and immunocompromised state. Neurological: Negative for headaches. Hematological: Negative for adenop (more content not included)... Normal [facility] CNOVon 08-24-2024 CNOV Office Visit (UCWSTR) ---- BARBARA SCHWAB ([id number]) 4 F Date Time Provider Department 08/24/24 11:00 AM NILDA CASTELLANOS [facility] During your visit today, we recorded the following information about you: Temperature Pulse Respiration Blood pressure 97.3 degrees 118/minute 20/minute 112/70 Weight 44.8 kg Nilda Castellanos, HOME HEALTH ASSISTANT.ART PROFESSOR 08/24/2024 11:39 AM Signed This note was created using [employer]. Subjective Barbara Schwab is a 24 year old adult. 24 year old female with no significant PMH presents for illness. Acute onset 5 days ago +nausea +sore throat +diarrhea +body aches +headache +chills Denies CP Denies dyspnea Denies emesis Denies hemoptysis Used Tylenol +vapes, tobacco The history is provided by the patient. No sign language teacher was used. SHARLENE Flower complains of [...] Laterality Date NONE SALPINGECTOMY Right 04/01/2024 laparoscopic, [facility] for ectopic ALLERGIES Adhesive Tape (Rosins) [...] 10 mg by mouth once daily. PNV Comb.Hr01-Ehjt,Carb onyl-FA 29 mg iron- 1 mg tab Take [...] (Patient not taking: Reported on 07/09/2023) vit 06-mluz-iyczr-dha (PRENATE MINI, FERR ASP GLYCIN,) 18-1-350 mg [...] for arth (more content not included)... Normal [facility] STREP A MOLECULAR (POC)on Procedural Control Valid [facility] Strep A (POCT) Negative Negative [facility] UA DIP,URINE HCG (POC)on Beta HCG ( test) Ql (U) Negative Negative [facility] Comment on above: Location:[facility], [address], [place], [address] Social Worker Delinquency Prevention (POCT) Internal QC [facility] Location:[facility], [address], [place], [address] [facility] POINT OF CARE [facility] CBC panel Auto (Bld)on 03-26 Erythrocyte distribution width (RBC) [Ratio] 12.4 % 11.5 - 15.0 % [facility] Hematocrit (Bld) [Volume fraction] 39.4 % 39.0 - 51.0 % [facility] Hemoglobin (Bld) [Mass/Vol] 13.3 g/dL 13.0 - 17.0 g/dL [facility] Interpretation and review of laboratory results Normal [facility] MCH (RBC) [Entitic mass] 30.6 pg 26. 0 - 34.0 pg [facility] MCHC (RBC) [Mass/Vol] 33.8 g/dL 30.5 - 36.0 g/dL [facility] MCV (RBC) [Entitic vol] 90.6 fL 80.0 - 100.0 fL [facility] Nucleated RBC (Bld) [#/Vol] NINF [facility] Platelet mean volume (Bld) [Entitic vol] 11.1 fL 9.0 - 12.7 fL [facility] Platelets (Bld) [#/Vol] 261 10*3/uL [facility] Comment on above: No clot detected. RBC (Bld) [#/Vol] 4.35 10*6/uL 4.20 - 6.0 0 m/uL [facility] WBC (Bld) [#/Vol] 8.20 10*3/uL [facility] UA DIP,URINE HCG (POC)on Beta HCG ( test) Ql (U) Positive Abnormal Negative [facility] Comment on above: Location:[facility], [address] [facility], [place], [address] Interpretation and review of laboratory results Abnormal [facility] Social Worker Delinquency Prevention (POCT) Internal QC OK [facility] Location:[facility], [address] [facility], [place], [place], [id number] [place] [address] POINT OF CARE [facility] EMG(NEURO/NI)on 03-19-2024 Results can be seen in attached scanned documents. If you are a patient reviewing this test result, call the doctor who ordered the test with any questions. [facility] Absolute lymphocyte countOrd ered By: Eze Norman on 10-09-2023 Lymphocytes Auto (Unsp spec) [#/Vol] 2.11 10*3/uL 0.83-4.51 [facility] Automated lymphocyte count a s percentage of total leukocytesOrdered By: Eze Norman on 10-09-2023 Lymphocytes/100 WBC Auto (Unsp spec) 34.8 % 19-41 [facility] Basophil percentageOrdered B y: Eze Norman on 10-09-2023 Basophil percentage 0 SEEN /hpf 0-[address] [facility] Basophils/100 WBC (Bld) 0.7 % 0-1 [facility] Bilirubin [Mass/Vol] 0.70 mg/dL 0.20-1.[address] [facility] Comment on above: For patients on eltr ombopag therapy, use of Dimension [place] TBIL is not recommended. Chloride [Moles/Vol] 111 mmol/L 98-[address] [facility] Eosinophils/100 WBC (Bld) 1.0 % 0-5 [facility] Glucose [Mass/Vol] 85 mg/dL 74-106 [facility] Hemoglobin (Bld) [Mass/Vol] 13.0 g/dL 12.0-15.0 [facility] Monocytes/100 WBC (Bld) 6.3 % 0-10 [facility] Neutrophils (Bld) [#/Vol] 3.5 10*3/uL 2.0-7.7 [facility] Neutrophils/100 WBC (Bld) 57.0 % 47-70 [facility] Potassium [Moles/Vol] 4.0 mmol/L 3.5-5.1 [facility] Protein [Mass/Vol] 6.8 g/dL 6.4-8.2 [facility] Sodium [Moles/Vol] 141 mmol/L 136-145 [facility] WBC (Bld) [#/Vol] 6.1 10*3/uL 4.4-11.0 [facility] Bilirubin Test strip Ql (U)O rdered By: Eze Norman on 10-09-2023 Bilirubin Ql (U) Negative Negative [facility] Determination of erythrocyte mean corpuscular volume (MCV)Ordered By: Eze Norman on 10-09-2023 MCV (RBC) [Entitic vol] 90.8 fL 81-99 [facility] Erythrocyte distribution wid th ratioOrdered By: Eze Norman on 10-09-2023 Erythrocyte distribution width (RBC) [Ratio] 12.5 % 11.6-14.6 [facility] Erythrocyte distribution wid th standard deviationOrdered By: Eze Norman on 10-09-2023 Erythrocyte distribution width (RBC) [Entitic vol] 41.5 fL 35.1-43.9 [facility] Hematocrit Auto (Bld) [Volum e fraction]Ordered By: Eze Norman on 10-09-2023 Hematocrit (Bld) [Volume fraction] 39.3 % 37-47 [facility] Immature granulocytes/100 WB C Auto (Bld)Ordered By: Eze Norman on 10-09-2023 Immature granulocytes/100 WBC (Bld) 0.200 % 0.0-0.9 [facility] Comment on above: IG% - Immature Granu locytes (promyelocytes, myelocytes and metamyelocytes) > 1% indicates that a LEFT SHIFT is Present. Ketones Test strip Ql (U)Ord ered By: Eze Norman on 10-09-2023 Ketones Ql (U) Negative Negative [facility] Laboratory - Chemistry and C hemistry - challengeOrdered By: Eze Norman on 10-09-2023 HCG ( test) Ql (U) Negative [facility] Comment on above: Very dilute urine sp ecimens, as indicated by a low specificgravity, may not contain career services representative levels of hCG. If is still suspected, a first morning urinespecimen should be collected 48 hours later and tested. Albumin/Globulin [Mass ratio] 1.4 {ratio} 0.9-2.4 [facility] ALP [Catalytic activity/Vol] 39 U/L 45-117 [facility] ALT [Catalytic activity/Vol] 13 U/L 13-56 [facility] CO2 [Moles/Vol] 26.0 mmol/L 21.0-32.0 [facility] Globulin (S) [Mass/Vol] 2.8 g/dL 2.2-4.2 [facility] Lipase [Catalytic activity/Vol] 15 U/L 13-75 [facility] Comment on above: Please note:LIPASE r evised reference range effective 22. New Lipase methodology. Expected to produce lower values than the previous assay method. NEW Reference Range: 13 - 75 U/L Urea nitrogen/Creatinine [Mass ratio] 7.8 mg/mg 10-20 [facility] Laboratory - Hematology and Cell countsOrdered By: Eze Norman on 10-09-2023 MCH (RBC) [Entitic mass] 30.0 pg 27.0-32.0 [facility] MCHC (RBC) [Mass/Vol] 33.1 g/dL 32-36 [facility] Nucleated RBC/100 WBC (Bld) [Ratio] 0 % 0-5 [facility] Platelet mean volume (Bld) [Entitic vol] 10.8 fL 6.2-12.0 [facility] Platelets (Bld) [#/Vol] 239 10*3/uL 150-450 [facility] Laboratory - Microbiology an d Antimicrobial susceptibilityOrdered By: Eze Norman on 10-09-2023 SARS-CoV-2 (COVID-19) RNA AQUILINO+probe Ql (Unsp spec) [facility] Mucus LM Ql (Urine sed)Order ed By: Eze Norman on 10-09-2023 Mucus Ql (Urine sed) 0 SEEN /hpf [facility] Nitrite Test strip Ql (U)Ord ered By: Eze Norman on 10-09-2023 Nitrite Ql (U) Negative Negative [facility] No Panel InformationOrdered By: Eze Norman on 10-09-2023 Urine RBC 0-5 SEEN /hpf 0-5 [facility] Estimated Creatinine Clearance Calc 103.55 ml/min [facility] Estimated GFR (MDRD) Amer 150 mL/min >60 [facility] Comment on above: GFR Calc Estimated GFR (MDRD) Non-Af Amer 124 mL/min >60 [facility] Comment on above: Non- GFR Calc Protein Test strip Ql (U)Ord ered By: Eze Norman on 10-09-2023 Protein Ql (U) Negative Negative [facility] RBC Auto (Bld) [#/Vol]Ordere d By: Eze Norman on 10-09-2023 RBC (Bld) [#/Vol] 4.33 10*6/uL 4.2-5.4 [facility] Serum or plasma calcium xochitl urement (mass/volume)Ordered By: Eze Norman on 10-09-2023 Calcium [Mass/Vol] 8.6 mg/dL 8.5-10.1 [facility] Serum or plasma creatinine m easurement (mass/volume)Ordered By: Eze Norman on 10-09-2023 Creatinine [Mass/Vol] 0.64 mg/dL 0.55-1.02 [facility] Comment on above: The validity of the calculated GFR & GFRAA in patients over 70 years has not been determined. Clinical correlation is essential. Serum or plasma urea nitroge n measurement (mass/volume)Ordered By: Eze Norman on 10-09-2023 Urea nitrogen [Mass/Vol] 5 mg/dL 7-18 [facility] Squamous epithelial cells de tection in urine sediment by light microscopyOrdered By: Eze Norman on 10-09-2023 Epithelial cells.squamous LM Ql (Urine sed) 0-5 SEEN /hpf 5-10 [facility] Thin prep Papanicolaou smear with manual screeningOrdered By: Eze Norman on 10-09-2023 Thin prep Papanicolaou smear with manual screening 4.0 g/dL 3.2-5.0 [facility] Thin prep Papanicolaou smear with manual screening 10 U/L 15-37 [facility] Thin prep Papanicolaou smear with manual screening 4 5-15 [facility] Urine blood detectionOrdered By: Eze Norman on 10-09-2023 RBC Ql (U) 25 /ul Negative [facility] Urine clarityOrdered By: Romulo Norman on 10-09-2023 Clarity (U) Sl. Cloudy Clear [facility] Urine color determinationOrd ered By: Eze Norman on 10-09-2023 Color (U) Yellow Yellow [facility] Urine glucose detectionOrder ed By: Eze Norman on 10-09-2023 Glucose Ql (U) Normal mg/dl Normal [facility] Urine leukocyte esterase det ection by dipstickOrdered By: Eze Norman on 10-09-2023 Leukocyte esterase Test strip Ql (U) Negative Negative [facility] Urine pHOrdered By: Eze newby on 10-09-2023 pH (U) 7.0 [pH] 5.0 - 8.0 [facility] Urine sediment bacteria coun t by microscopy (number/high power field)Ordered By: Eze Norman on 10-09-2023 Bacteria LM.HPF (Urine sed) [#/Area] 0 /[HPF] None Seen [facility] Urine specific gravity measu rementOrdered By: Eze Norman on 10-09-2023 Specific gravity (U) [Rel density] 1.010 1.002-1.030 [facility] Urine urobilinogen measureme ntOrdered By: Eze Norman on 10-09-2023 Urobilinogen Ql (U) Normal mg/dl Normal [facility] UA DIP, URINE (POC)on 2023 BILIRUBIN UA (POCT) Moderate Abnormal Negative [facility] CLARITY UA (POCT) Slightly [facility]y [facility] COLOR UA (POCT) Red [facility] GLUCOSE UA (POCT) 250 mg/dL Abnormal Negative mg/dL [facility] Hemoglobin Ql (U) Trace-intact Abnormal Negative [facility] KETONE UA (POCT) 15 mg/dL Abnormal Negative mg/dL [facility] LEUKOCYTES UA (POCT) Large Abnormal Negative [facility] NITRITE UA (POCT) Positive Abnormal Negative [facility] PH UA (POCT) 5.0 4.5 - 8.0 [facility] Protein Ql (U) >=300 Abnormal Negative mg/dL [facility] SPECIFIC GRAVITY UA (POCT) <=1.005 Abnormal 1.005 - 1.030 [facility] UROBILINOGEN UA (POCT) >=8.0 Abnormal Luz Maria l E.U./dL [facility] UA DIP, URINE (POC)on 2022 BILIRUBIN UA (POCT) Negative Negative [facility] CLARITY UA (POCT) Cloudy [facility] COLOR UA (POCT) Yellow [facility] GLUCOSE UA (POCT) Negative Negative mg/dL [facility] Hemoglobin Ql (U) Large Abnormal Negative [facility] KETONE UA (POCT) Negative Negative mg/dL [facility] LEUKOCYTES UA (POCT) Moderate Abnormal Negative [facility] NITRITE UA (POCT) Negative Negative [facility] PH UA (POCT) 5.5 4.5 - 8.0 [facility] Protein Ql (U) 30 mg/dL Abnormal Negative mg/dL [facility] SPECIFIC GRAVITY UA (POCT) 1.010 1.005 - 1.030 [facility] UROBILINOGEN UA (POCT) 0.2 E.U./dL Luz Maria l E.U./dL [facility] US FEMALE PELVIS TRANSVAGon 02-06-2023 [facility] CBC W Auto Differential pane l (Bld)on 01-30-2023 Basophils (Bld) [#/Vol] 0.04 10*3/uL <0.11 k/uL [facility] Basophils/100 WBC (Bld) 0.5 % C [facility] Differential cell count method Nom (Bld) Auto [facility] Eosinophils (Bld) [#/Vol] 0.06 10*3/uL <0.46 k/uL [facility] Eosinophils/100 WBC (Bld) 0.7 % [facility] Erythrocyte distribution width (RBC) [Ratio] 12.5 % 11.5 - 15.0 % [facility] Hematocrit (Bld) [Volume fraction] 41.1 % 39.0 - 51.0 % [facility] Hemoglobin (Bld) [Mass/Vol] 13.7 g/dL 13.0 - 17.0 g/dL [facility] Immature granulocytes (Bld) [#/Vol] <0.10 k/uL [facility] Immature granulocytes/100 WBC (Bld) 0.2 % [facility] Lymphocytes (Bld) [#/Vol] 2.63 10*3/uL 1.00 - 4.00 k/uL [facility] Lymphocytes/100 WBC (Bld) 29.6 % [facility] MCH (RBC) [Entitic mass] 29.5 pg 26. 0 - 34.0 pg [facility] MCHC (RBC) [Mass/Vol] 33.3 g/dL 30.5 - 36.0 g/dL [facility] MCV (RBC) [Entitic vol] 88.6 fL 80.0 - 100.0 fL [facility] Monocytes (Bld) [#/Vol] 0.46 10*3/uL <0.87 k/uL [facility] Monocytes/100 WBC (Bld) 5.2 % C [facility] Neutrophils (Bld) [#/Vol] 5.67 10*3/uL 1.45 - 7.50 k/uL [facility] Neutrophils/100 WBC (Bld) 63.8 % [facility] Nucleated RBC (Bld) [#/Vol] <0.01 k/uL [facility] Nucleated RBC/100 WBC (Bld) [Ratio] 0.0 /100 WBC [facility] Platelet mean volume (Bld) [Entitic vol] 10.6 fL 9.0 - 12.7 fL [facility] Platelets (Bld) [#/Vol] 256 10*3/uL 150 - 400 k/uL [facility] RBC (Bld) [#/Vol] 4.64 10*6/uL 4.20 - 6.0 0 m/uL [facility] WBC (Bld) [#/Vol] 8.88 10*3/uL 3.70 - 11. 00 k/uL [facility] HCG QUAL UR B/Oon 01-30-2023 status Negative neg - pos [facility] Quality Check Yes [facility] HCG QUAL UR B/Oon 01-16-2023 status Negative neg - pos [facility] Quality Check Yes [facility] Absolute lymphocyte countOrd ered By: Jonathan Rush on 01-01-2023 Lymphocytes Auto (Unsp spec) [#/Vol] 3.24 10*3/uL 0.83-4.51 [facility] Basophil percentageOrdered B y: Jonathan Rush on 01-01-2023 Basophils/100 WBC (Bld) 0.3 % 0-1 [facility] Bilirubin [Mass/Vol] 0.30 mg/dL 0.20-1.[address] [facility] Comment on above: For patients on eltr ombopag therapy, use of Dimension [place] TBIL is not recommended. Chloride [Moles/Vol] 107 mmol/L 98-[address] [facility] Eosinophils/100 WBC (Bld) 0.3 % 0-5 [facility] Glucose [Mass/Vol] 87 mg/dL 74-106 [facility] Neutrophils (Bld) [#/Vol] 7.5 10*3/uL 2.0-7.7 [facility] Neutrophils/100 WBC (Bld) 65.6 % 47-70 [facility] Potassium [Moles/Vol] 3.3 mmol/L 3.5-5.1 [facility] Protein [Mass/Vol] 7.2 g/dL 6.4-8.2 [facility] Sodium [Moles/Vol] 139 mmol/L 136-145 [facility] WBC (Bld) [#/Vol] 11.5 10*3/uL 4.4-11.0 [facility] Basophil percentage 25-50 SEEN /hpf 0-5 [facility] Beta hCG serum qualOrdered B y: Jonathan Rush on 01-01-2023 Beta HCG ( test) Ql Negative [facility] Bilirubin Test strip Ql (U)O rdered By: Jonathan Rush on 01-01-2023 Bilirubin Ql (U) Negative Negative [facility] Blood erythrocytes count (nu mber/volume)Ordered By: Jonathan Rush on 01-01-2023 RBC (Bld) [#/Vol] 4.41 10*6/uL 4.2-5.4 [facility] Blood hemoglobin measurement (mass/volume)Ordered By: Jonathan Rush on 01-01-2023 Hemoglobin (Bld) [Mass/Vol] 13.4 g/dL 12.0-15.0 [facility] Blood lymphocytes/100 leukoc ytesOrdered By: Jonathan Rush on 01-01-2023 Lymphocytes/100 WBC (Bld) 28.3 % 19-41 [facility] Blood monocytes/100 leukocyt esOrdered By: Jonathan Rush on 01-01-2023 Monocytes/100 WBC (Bld) 4.5 % 0-10 [facility] Blood platelet mean volumeOr dered By: Jonathan Rush on 01-01-2023 Platelet mean volume (Bld) [Entitic vol] 10.5 fL 6.2-12.0 [facility] Determination of erythrocyte mean corpuscular volume (MCV)Ordered By: Jonathan Rush on 01-01-2023 MCV (RBC) [Entitic vol] 89.8 fL 81-99 [facility] Hematocrit Auto (Bld) [Volum e fraction]Ordered By: Jonathan Rush on 01-01-2023 Hematocrit (Bld) [Volume fraction] 39.6 % 37-47 [facility] Ketones Test strip Ql (U)Ord ered By: Jonathan Rush on 01-01-2023 Ketones Ql (U) Negative Negative [facility] Laboratory - Chemistry and C hemistry - challengeOrdered By: Jonathan Rush on 01-01-2023 ALP [Catalytic activity/Vol] 42 U/L 45-117 [facility] ALT [Catalytic activity/Vol] 13 U/L 13-56 [facility] CO2 [Moles/Vol] 27.0 mmol/L 21.0-32.0 [facility] Globulin (S) [Mass/Vol] 3.1 g/dL 2.2-4.2 [facility] Urea nitrogen/Creatinine [Mass ratio] 12.6 mg/mg 10-20 [facility] Laboratory - Hematology and Cell countsOrdered By: Jonathan Rush on 01-01-2023 Erythrocyte distribution width (RBC) [Entitic vol] 43.3 fL 35.1-43.9 [facility] Erythrocyte distribution width (RBC) [Ratio] 13.1 % 11.6-14.6 [facility] Immature granulocytes/100 WBC (Bld) 1.000 % 0.0-0.9 [facility] Comment on above: IG% - Immature Granu locytes (promyelocytes, myelocytes and metamyelocytes) > 1% indicates that a LEFT SHIFT is Present. MCH (RBC) [Entitic mass] 30.4 pg 27.0-32.0 [facility] Nucleated RBC/100 WBC (Bld) [Ratio] 0 % 0-5 [facility] MCHC Auto (RBC) [Mass/Vol]Or dered By: Jonathan Rush on 01-01-2023 MCHC (RBC) [Mass/Vol] 33.8 g/dL 32-36 [facility] Mucus LM Ql (Urine sed)Order ed By: Jonathan Rush on 01-01-2023 Mucus Ql (Urine sed) 0 SEEN /hpf [facility] Nitrite Test strip Ql (U)Ord ered By: Jonathan Rush on 01-01-2023 Nitrite Ql (U) Negative Negative [facility] No Panel InformationOrdered By: Jonathan Rush on 01-01-2023 Estimated Creatinine Clearance Calc 96.02 ml/min [facility] Estimated GFR (MDRD) Amer 133 mL/min >60 [facility] Comment on above: GFR Calc Estimated GFR (MDRD) Non-Af Amer 110 mL/min >60 [facility] Comment on above: Non- GFR Calc Platelets bldOrdered By: Edward Rush on 01-01-2023 Platelets (Bld) [#/Vol] 245 10*3/uL 150-450 [facility] Protein Test strip Ql (U)Ord ered By: Jonathan Rush on 01-01-2023 Protein Ql (U) 30 mg/dl Negative [facility] Serum or plasma albumin xochitl urement (mass/volume)Ordered By: Jonathan Rush on 01-01-2023 Albumin [Mass/Vol] 4.1 g/dL 3.2-5.0 [facility] Serum or plasma albumin/glob ulin mass ratioOrdered By: Jonathan Rush on 01-01-2023 Albumin/Globulin [Mass ratio] 1.3 {ratio} 0.9-2.4 [facility] Serum or plasma calcium xochitl urement (mass/volume)Ordered By: Jonathan Rush on 01-01-2023 Calcium [Mass/Vol] 8.9 mg/dL 8.5-10.1 [facility] Serum or plasma creatinine m easurement (mass/volume)Ordered By: Jonathan Rush on 01-01-2023 Creatinine [Mass/Vol] 0.72 mg/dL 0.55-1.02 [facility] Comment on above: The validity of the calculated GFR & GFRAA in patients over 70 years has not been determined. Clinical correlation is essential. Serum or plasma urea nitroge n measurement (mass/volume)Ordered By: Jonathan Rush on 01-01-2023 Urea nitrogen [Mass/Vol] 9 mg/dL 7-18 [facility] Squamous epithelial cells de tection in urine sediment by light microscopyOrdered By: Jonathan Rush on 01-01-2023 Epithelial cells.squamous LM Ql (Urine sed) 0-5 SEEN /hpf 5-10 [facility] Thin prep Papanicolaou smear with manual screeningOrdered By: Jonathan Rush on 01-01-2023 Thin prep Papanicolaou smear with manual screening 8 U/L 15-37 [facility] Thin prep Papanicolaou smear with manual screening 5 5-15 [facility] Urine blood detectionOrdered By: Jonathan Rush on 01-01-2023 RBC Ql (U) 10 /ul Negative [facility] RBC Ql (U) 0-5 SEEN /hpf 0-5 [facility] Urine clarityOrdered By: Edward Rush on 01-01-2023 Clarity (U) Sl. Cloudy Clear [facility] Urine color determinationOrd ered By: Jonathan Rush on 01-01-2023 Color (U) Yellow Yellow [facility] Urine glucose detectionOrder ed By: Jonathan Rush on 01-01-2023 Glucose Ql (U) Normal mg/dl Normal [facility] Urine leukocyte esterase det ection by dipstickOrdered By: Jonathan Rush on 01-01-2023 Leukocyte esterase Test strip Ql (U) 100 /ul Negative [facility] Urine pHOrdered By: Jonathan Anthony ght on 01-01-2023 pH (U) 6.5 [pH] 5.0 - 8.0 [facility] Urine sediment bacteria coun t by microscopy (number/high power field)Ordered By: Jonathan Rush on 01-01-2023 Bacteria LM.HPF (Urine sed) [#/Area] RARE /hpf None Seen [facility] Urine specific gravity measu rementOrdered By: Jonathan Rush on 01-01-2023 Specific gravity (U) [Rel density] 1.015 1.002-1.030 [facility] Urobilinogen Auto test strip Ql (U)Ordered By: Jonathan Rush on 01-01-2023 Urobilinogen Ql (U) Normal mg/dl Normal [facility] Influenza virus A and B RNA and SARS-CoV-2 (COVID-19) N gene panel AQUILINO+probe (Resp)on 12-26-2022 FLUAV RNA AQUILINO+probe Ql (Unsp spec) Not detected Not Detected [facility] FLUBV RNA AQUILINO+probe Ql (Unsp spec) Not detected Not Detected [facility] SARS-CoV-2 (COVID-19) RNA AQUILINO+probe Ql (Resp) Not detected See comment [facility] STREP A MOLECULAR (POC)on Procedural Control Valid [facility] Strep A (POCT) Positive Abnormal Negative [facility] UA DIP, URINE (POC)on 2021 BILIRUBIN UA (POCT) Small Abnormal Negative [facility] CLARITY UA (POCT) Cloudy [facility] COLOR UA (POCT) Dark yellow [facility] GLUCOSE UA (POCT) Negative Negative mg/dL [facility] HEMOGLOBIN/BLOOD UA (POCT) Small Abnormal Negative [facility] KETONE UA (POCT) Negative Negative mg/dL [facility] LEUKOCYTES UA (POCT) Negative Negative [facility] NITRITE UA (POCT) Negative Negative [facility] PH UA (POCT) 6.0 4.5 - 8.0 [facility] Protein Ql (U) >=300 Abnormal Negative mg/dL [facility] SPECIFIC GRAVITY UA (POCT) >=1.030 1.005 - 1.030 [facility] UROBILINOGEN UA (POCT) 0.2 E.U./dL Luz Maria l E.U./dL [facility] UA DIP, URINE (POC)on 2021 BILIRUBIN UA (POCT) Negative Negative [facility] CLARITY UA (POCT) Cloudy [facility] COLOR UA (POCT) Other [facility] GLUCOSE UA (POCT) Negative Negative mg/dL [facility] HEMOGLOBIN/BLOOD UA (POCT) Trace-lysed Abnormal Negative [facility] KETONE UA (POCT) Negative Negative mg/dL [facility] LEUKOCYTES UA (POCT) Moderate Abnormal Negative [facility] NITRITE UA (POCT) Negative Negative [facility] PH UA (POCT) 8.0 4.5 - 8.0 [facility] Protein Ql (U) 100 mg/dL Abnormal Negative mg/dL [facility] SPECIFIC GRAVITY UA (POCT) 1.020 1.005 - 1.030 [facility] UROBILINOGEN UA (POCT) 0.2 E.U./dL Luz Maria l E.U./dL [facility] No Panel Informationon 12-28 Radiology Study observation (narrative) [facility] XR Ankle - left AP and Later al and obliqueon 12-28-2021 IMPRESSION: Soft tissue swelling along the lateral malleolus. Physician Office Clin Asst: CARROLL Transcribe Date/Time: Dec 28 2021 1:04P Dictated by : RADHA JONES MD This examination was interpreted and the report reviewed and electronically signed by: RADHA JONES MD on Dec 28 2021 1:12PM EST CarlosZZ_DO_NOT_USE _DIVISION OF RADIOLOGY * * *Final Report* * [...] soft tissue swelling along the lateral malleolus. KEY_DO_NOT_USE _DIVISION OF RADIOLOGY Provider, [facility] [place] - 12/28/2021 * * *Final Report* * [...] Soft tissue swelling along the lateral malleolus. Physician Office Clin Asst: CARROLL Transcribe Date/Time: Dec 28 2021 1:04P Dictated by : RADHA JONES MD This examination was interpreted and the report reviewed and electronically signed by: RADHA JONES MD on Dec 28 2021 1:12PM EST [facility] XR Ankle - left AP and Later al and obliqueOrdered By: Cc Provider on 12-28-2021 [facility] XR Knee - left 4 [place]son IMPRESSION: No convincing acute radiographic abnormalities in the left knee. Physician Office Clin Asst: CARROLL Transcribe Date/Time: Dec 28 2021 1:05P Dictated by : RADHA JONES MD This examination was interpreted and the report reviewed and electronically signed by: RADHA JONES MD on Dec 28 2021 1:09PM EST ZZZ_DO_NOT_USE _DIVISION OF RADIOLOGY * * *Final Report* * [...] There is no significant soft tissue swelling. ZZZ_DO_NOT_USE _DIVISION OF RADIOLOGY Provider, [facility] [place] - 12/28/2021 * * *Final Report* * [...] acute radiographic abnormalities in the left knee. Physician Office Clin Asst: CARROLL Transcribe Date/Time: Dec 28 2021 1:05P Dictated by : RADHA JONES MD This examination was interpreted and the report reviewed and electronically signed by: RADHA JONES MD on Dec 28 2021 1:09PM [facility] Progress Noteon 12-20-2019 [employer] Authentication Interface Message Text Patient ID: Barbara [...] Hearing Screening - Cancel: Vision Screening - Behavioral/Emotiona l Assessment w Score - PHQ-9 Exercise counseling Encounter for dietary counseling and surveillance Need for vaccination - Hepatitis A Ped/Adol <= 18y - Meningococcal ACWY (MENACTRA) - HPV (Gardasil 9) Return in about 1 year (around 12/19/2020) for well check. 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 female patient. Behavioral/Emotiona l Assessment w Score - PHQ-9 Performed by: [...] Minimal See Scanned Document Electronically signed by: SHAVONNE Mane Primary Care Review of Systems Objective Vital [...] 47.2 kg, last menstrual period 11/29/2019. Normal [facility] Progress Noteon 06-10-2019 [employer] Authentication Interface Message Text Patient ID: Barbara [...] Trace Hemolyzed (A) Negative POCT Urine Specific [place] 1.005 1.005 - 1.030 POCT Ketones, Urine Negative Negative mg/dl POCT Glucose, Urine Negative Negative mg/dl POCT Blood Glucose Collection Time: 06/10/19 12:42 PM Result Value Ref Range POCT Glucose, Blood 78 60 - 110 mg/dL Normal [facility] Urine Cultureon 06-10-2019 Bacteria identified Cx Nom (U) Is this specimen being sent to an external lab?->No Urine Culture: 50,000 - 100,000 CFU/ml of Normal Skin/urogenital jerod Source: URNMD Collected: 06/10/19 12:52 Site: Urine Received : 06/10/19 19:57 Urine Culture FINAL 06/12/19 09:51 50,000 - 100,000 CFU/ml of Normal Skin/urogenital jerod present Normal [facility] Comment on above: Performed By: #### U VIKTORIYA ####[facility] [place], [place] [phone] Progress Noteon 05-24-2019 [employer] Authentication Interface Message Text Patient ID: Barbara [...] is okay- 110/70. Sent by squad to [facility] for evaluation for clots/dural sinus thrombosis vs other etiology of symptoms. Spoke with [facility] ED attending. Subjective HPI Comments: Barbara and [...] is no pallor. Skin is warm. Normal [facility] Progress Noteon 04-13-2019 [employer] Authentication Interface Message Text Patient ID: Barbara [...] 49.2 kg, last menstrual period 12/05/2018. Normal [facility] Ferritinon 04-07-2019 Ferritin [Mass/Vol] 12 ng/mL Normal 12-[address] [facility] Comment on above: Order Comment: With differential.Is this specimen being sent to an external lab?->NoTIBC will not be run.Is this specimen being sent to an external lab?->No Performed By: #### F ERTN ####[address] [phone] Complete Blood Counton 04-06 Differential Complete Manual Normal [facility] Comment on above: Order Comment: With differential. Is this specimen being sent to an external lab?->No TIBC will not be run. Is this specimen being sent to an external lab?->No Performed By: #### C BC #### [address] [id number] Erythrocyte distribution width (RBC) [Ratio] 12.9 % Normal 0.0-14.[address] [facility] Comment on above: Order Comment: With differential. Is this specimen being sent to an external lab?->No TIBC will not be run. Is this specimen being sent to an external lab?->No Performed By: #### C BC #### [address] [id number] Hematocrit (Bld) [Volume fraction] 33.3 % Low 37.0-46.[address] [facility] Comment on above: Order Comment: With differential. Is this specimen being sent to an external lab?->No TIBC will not be run. Is this specimen being sent to an external lab?->No Performed By: #### C BC #### [address] [id number] Hemoglobin (Bld) [Mass/Vol] 10.9 g/dL Low 12.0-15.[address] [facility] Comment on above: Order Comment: With differential. Is this specimen being sent to an external lab?->No TIBC will not be run. Is this specimen being sent to an external lab?->No Performed By: #### C BC #### [address] [id number] Immature granulocytes/100 WBC (Bld) 0.60 % Normal [facility] Comment on above: Order Comment: With [...] Percent. Performed By: #### C BC #### [address] [id number] MCH (RBC) [Entitic mass] 28.9 pg Normal 25.0-35.[address] [facility] Comment on above: Order Comment: With differential. Is this specimen being sent to an external lab?->No TIBC will not be run. Is this specimen being sent to an external lab?->No Performed By: #### C BC #### [address] [phone] MCHC (RBC) [Mass/Vol] 32.7 % Normal 31.0-37.0 [facility] Comment on above: Order Comment: With differential. Is this specimen being sent to an external lab?->No TIBC will not be run. Is this specimen being sent to an external lab?->No Performed By: #### C BC #### [address] [phone] MCV (RBC) [Entitic vol] 88.3 fL Normal 78.0-96.0 A [facility] Comment on above: Order Comment: With differential. Is this specimen being sent to an external lab?->No TIBC will not be run. Is this specimen being sent to an external lab?->No Performed By: #### C BC #### [address] [id number] Nucleated RBC/100 WBC (Bld) [Ratio] 0.0 % Normal -1.0-0.[address] [facility] Comment on above: Order Comment: With differential. Is this specimen being sent to an external lab?->No TIBC will not be run. Is this specimen being sent to an external lab?->No Performed By: #### C BC #### [address] [id number] Platelet mean volume (Bld) [Entitic vol] 10.[address] [facility] Comment on above: Order Comment: With differential. Is this specimen being sent to an external lab?->No TIBC will not be run. Is this specimen being sent to an external lab?->No Result Comment: MPV is platelet range and age dependent Performed By: #### C BC #### [address] [id number] Platelets (Bld) [#/Vol] 346 10*3/uL Normal 150-[address] [facility] Comment on above: Order Comment: With differential. Is this specimen being sent to an external lab?->No TIBC will not be run. Is this specimen being sent to an external lab?->No Performed By: #### C BC #### [address] [id number] RBC (Bld) [#/Vol] 3.77 10E12/L Low 4.10-4.[address] [facility] Comment on above: Order Comment: With differential. Is this specimen being sent to an external lab?->No TIBC will not be run. Is this specimen being sent to an external lab?->No Performed By: #### C BC #### [address] [phone] WBC (Bld) [#/Vol] 10.9 10*3/uL Normal 4.5-13.[address] [facility] Comment on above: Order Comment: With differential. Is this specimen being sent to an external lab?->No TIBC will not be run. Is this specimen being sent to an external lab?->No Performed By: #### C BC #### [address] [phone] Manual Differentialon 2018 Absolute Neutrophil No. 6.4 Normal A [facility] Comment on above: Order Comment: With differential.Is this specimen being sent to an external lab?->NoTIBC will not be run.Is this specimen being sent to an external lab?->No Performed By: #### M DIFF ####[address] [phone] Anisocytosis Ql (Bld) Slight Normal [facility] Comment on above: Order Comment: With differential.Is this specimen being sent to an external lab?->NoTIBC will not be run.Is this specimen being sent to an external lab?->No Performed By: #### M DIFF ####[address] [phone] Atypical Lymphocytes 1 % Normal 0-8 [facility] Comment on above: Order Comment: With differential.Is this specimen being sent to an external lab?->NoTIBC will not be run.Is this specimen being sent to an external lab?->No Performed By: #### M DIFF ####[address] [phone] Band form neutrophils/100 WBC (Bld) 3 % Low 5-[address] [facility] Comment on above: Order Comment: With differential.Is this specimen being sent to an external lab?->NoTIBC will not be run.Is this specimen being sent to an external lab?->No Performed By: #### M DIFF ####[address] [phone] Eosinophils 2 % Normal 0-[address] [facility] Comment on above: Order Comment: With differential.Is this specimen being sent to an external lab?->NoTIBC will not be run.Is this specimen being sent to an external lab?->No Performed By: #### M DIFF ####[address] [id number] Lymphocytes 33 % Normal 25-[address] [facility] Comment on above: Order Comment: With differential.Is this specimen being sent to an external lab?->NoTIBC will not be run.Is this specimen being sent to an external lab?->No Performed By: #### M DIFF ####[address] [phone] Metamyelocytes 0 % Normal 0-[address] [facility] Comment on above: Order Comment: With differential.Is this specimen being sent to an external lab?->NoTIBC will not be run.Is this specimen being sent to an external lab?->No Performed By: #### M DIFF ####[address] [phone] Monocytes 5 % Normal 3-[address] [facility] Comment on above: Order Comment: With differential.Is this specimen being sent to an external lab?->NoTIBC will not be run.Is this specimen being sent to an external lab?->No Performed By: #### M DIFF ####[address] [phone] Myelocytes 0 % Normal 0-[address] [facility] Comment on above: Order Comment: With differential.Is this specimen being sent to an external lab?->NoTIBC will not be run.Is this specimen being sent to an external lab?->No Performed By: #### M DIFF ####[address] [phone] Promyelocytes 0 % Normal 0-[address] [facility] Comment on above: Order Comment: With differential.Is this specimen being sent to an external lab?->NoTIBC will not be run.Is this specimen being sent to an external lab?->No Performed By: #### M DIFF ####[address] [phone] Segmented neutrophils/100 WBC (Bld) 56 % Normal 34-[address] [facility] Comment on above: Order Comment: With differential.Is this specimen being sent to an external lab?->NoTIBC will not be run.Is this specimen being sent to an external lab?->No Performed By: #### M DIFF ####[address] [phone] WBC Inclusions Slight Normal [facility] Comment on above: Order Comment: With differential.Is this specimen being sent to an external lab?->NoTIBC will not be run.Is this specimen being sent to an external lab?->No Result Comment: Slig ht Toxic granulation Performed By: #### M DIFF ####[address] [phone] Progress Noteon 04-06-2019 [employer] Engineer Authentication Interface Message Text Patient ID: Barbara Gutierrez is a 18 y.o. female. Her chief complaint(s) include: Fatigue ([place] still bothing her, sleeping 14-15 hours of [...] Blood 107 60 - 110 mg/dL Normal [facility] Z Miscellaneous Sendouton Patient Results ----- Normal [facility] Comment on above: Order Comment: EBVIG and EBVIM to [facility] 0.5-1.0 mL Serum Store Refrigerated Result Comment: Natanael sahni refer to the complete report scanned into [facility] 03-29-2019. Performed By: #### Z MSO #### [address] [id number] Z Miscellaneous Sendouton Performed by: see below Normal [facility] Comment on above: Order Comment: EBVIG and EBVIM to [facility] 0.5-1.0 mL Serum Store Refrigerated Result Comment: Testing Performed: [facility] Reference Laboratory [address] [place] [phone] Performed By: #### Z MSO #### [address] [id number] Comp Metabolic Panelon 03-24 Albumin [Mass/Vol] 3.3 g/dL Normal 3.2-4.[address] [facility] Comment on above: Order Comment: Is th is specimen being sent to an external lab?->No Performed By: #### C MP #### [address] [address] ALP [Catalytic activity/Vol] 171 U/L High 47-[address] [facility] Comment on above: Order Comment: Is th is specimen being sent to an external lab?->No Performed By: #### C MP #### [address] [id number] ALT [Catalytic activity/Vol] 57 U/L High 0-[address] [facility] Comment on above: Order Comment: Is th is specimen being sent to an external lab?->No Performed By: #### C MP #### [address] [id number] AST [Catalytic activity/Vol] 35 U/L High 0-[address] [facility] Comment on above: Order Comment: Is th is specimen being sent to an external lab?->No Performed By: #### C MP #### [address] [address] Bili,Total 0.5 mg/dl Normal 0.0-1.[address] [facility] Comment on above: Order Comment: Is th is specimen being sent to an external lab?->No Result Comment: Premature : 1 Day 1.0-6.0 mg/dl 2 Day 6.0-8.0 mg/dl 3-5 Day 10.0-15.0 mg/dl Performed By: #### C MP #### [address] [address] Calcium [Mass/Vol] 8.1 mg/dL Normal 7.6-11.[address] [facility] Comment on above: Order Comment: Is th is specimen being sent to an external lab?->No Performed By: #### C MP #### [address] [address] Chloride [Moles/Vol] 105 mmol/L Normal 96-108 [facility] Comment on above: Order Comment: Is th is specimen being sent to an external lab?->No Performed By: #### C MP #### [address] [address] CO2 [Moles/Vol] 24.4 mmol/L Normal 22.0-29.[address] [facility] Comment on above: Order Comment: Is th is specimen being sent to an external lab?->No Performed By: #### C MP #### [address] [address] Creatinine [Mass/Vol] 0.47 mg/dL Low 0.50-1.00 [facility] Comment on above: Order Comment: Is th is specimen being sent to an external lab?->No Result Comment: Premature 0.3-1.0 mg/dL Performed By: #### C MP #### [address] [address] Glucose [Mass/Vol] 71 mg/dL Normal 70-[address] [facility] Comment on above: Order Comment: Is [...] Diabetes Performed By: #### C MP #### [address] [address] Potassium [Moles/Vol] 3.8 mmol/L Normal 3.3-5.1 [facility] Comment on above: Order Comment: Is th is specimen being sent to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 HOME HEALTH ASSISTANT.ART PROFESSOR Work Phone: [facility] 07-05-2022 16:12-0500 Heart rate 119 /min Yosi Pendlebury HOME HEALTH ASSISTANT.ART PROFESSOR Work Phone: [facility] 07-05-2022 16:12-0500 Respiratory rate 18 /min [facility] HOME HEALTH ASSISTANT.ART PROFESSOR Work Phone: [facility] 07-05-2022 16:12-0500 SaO2% (BldA) [Mass fraction] 98 % [facility] HOME HEALTH ASSISTANT.ART PROFESSOR Work Phone: [facility] 07-05-2022 16:12-0500 Systolic blood pressure 108 mm[Hg] Yosi Pendlebury HOME HEALTH ASSISTANT.ART PROFESSOR Work Phone: [facility] 05-21-2022 16:34-0500 Body temperature 98.01 [degF] Jessica Monte HOME HEALTH ASSISTANT.ART PROFESSOR Work Phone: [facility] 05-21-2022 16:34-0500 Body weight 48.53 kg Jessica Callow HOME HEALTH ASSISTANT.ART PROFESSOR Work Phone: [facility] 05-21-2022 16:34-0500 Diastolic blood pressure 62 mm[Hg] Jessica Callow HOME HEALTH ASSISTANT.ART PROFESSOR Work Phone: [facility] 05-21-2022 16:34-0500 Heart rate 60 /min Jessica Callow HOME HEALTH ASSISTANT.ART PROFESSOR Work Phone: [facility] 05-21-2022 16:34-0500 Respiratory rate 16 /min Jessica Callow HOME HEALTH ASSISTANT.ART PROFESSOR Work Phone: [facility] 05-21-2022 16:34-0500 SaO2% (BldA) [Mass fraction] 99 % Jessica Callow HOME HEALTH ASSISTANT.ART PROFESSOR Work Phone: [facility] 05-21-2022 16:34-0500 Systolic blood pressure 106 mm[Hg] Jessica Callow HOME HEALTH ASSISTANT.ART PROFESSOR Work Phone: [facility] 02-14-2022 11:44-0400 Body weight 46.72 kg Pricila Vergara HOME HEALTH ASSISTANT.ART PROFESSOR Work Phone: [facility] 02-14-2022 11:44-0400 Diastolic blood pressure 68 mm[Hg] Pricila Vergara APRN.ART PROFESSOR Work Phone: [facility] 02-14-2022 11:44-0400 Systolic blood pressure 110 mm[Hg] Pricila Vergara HOME HEALTH ASSISTANT.ART PROFESSOR Work Phone: [facility] 12-28-2021 14:50-0400 Body weight 48.9 kg Marcia Plotts HOME HEALTH ASSISTANT.CNM Work Phone: [facility] 12-28-2021 14:50-0400 Diastolic blood pressure 60 mm[Hg] Marcia Plotts HOME HEALTH ASSISTANT.CNM Work Phone: [facility] 12-28-2021 14:50-0400 Systolic blood pressure 98 mm[Hg] Marcia Plotts HOME HEALTH ASSISTANT.CNM Work Phone: [facility] 12-28-2021 12:36-0400 Body temperature 97.59 [degF] Yosi Elmer HOME HEALTH ASSISTANT.ART PROFESSOR Work Phone: [facility] 12-28-2021 12:36-0400 Body weight 48.08 kg Yois Elmer HOME HEALTH ASSISTANT.ART PROFESSOR Work Phone: [facility] 12-28-2021 12:36-0400 Diastolic blood pressure 82 mm[Hg] Yosi Payne HOME HEALTH ASSISTANT.ART PROFESSOR Work Phone: [facility] 12-28-2021 12:36-0400 Heart rate 106 /min Yosi Elmer HOME HEALTH ASSISTANT.ART PROFESSOR Work Phone: [facility] 12-28-2021 12:36-0400 Respiratory rate 20 /min Yosi Elmer HOME HEALTH ASSISTANT.ART PROFESSOR Work Phone: [facility] 12-28-2021 12:36-0400 SaO2% (BldA) [Mass fraction] 97 % Yosi Elmer HOME HEALTH ASSISTANT.ART PROFESSOR Work Phone: [facility] 12-28-2021 12:36-0400 Systolic blood pressure 110 mm[Hg] Yosi Elmer HOME HEALTH ASSISTANT.ART PROFESSOR Work Phone: [facility] Encounters Encounter Date Encounter Type Care Provider Facility Start: 05-18-2025 End: 05-18-2025 ambulatory REJI DING Facility:[facility] Start: 05-17-2025 End: 05-17-2025 ambulatory NILDA JEAN Facility:[facility] Start: 05-14-2025 End: 05-14-2025 ambulatory Melissa Cabezas Facility:[facility] Start: 05-13-2025 End: 05-13-2025 ambulatory ANTONIETA STANLEY Facility:[facility] Start: 05-13-2025 End: 05-13-2025 ambulatory REJI DING Facility:[facility] Start: 05-13-2025 End: 05-13-2025 ambulatory REJI DING Facility:[facility] Start: 05-03-2025 End: 05-03-2025 ambulatory MARCIA FARRELL Facility:[facility] Start: 04-22-2025 End: 04-22-2025 ambulatory ELENA MARGARITO Facility:[facility] Start: 04-08-2025 End: 04-08-2025 ambulatory NILDA JEAN Facility:[facility] Start: 03-28-2025 End: 03-28-2025 ambulatory ESHA GERMAN Facility:[facility] Start: 03-22-2025 End: 03-22-2025 Patient encounter procedure Nilda Ted BENTLEY Work Phone: OB/Gynecology Comment on above: Supervision of high risk in second trimester (HCC) (Primary Dx); 24 weeks gestation of (HCC); Urinary tract infection without hematuria, site unspecified; Nausea; Diarrhea, unspecified type; Cramping affecting , antepartum (HCC); Hx of delivery, currently (HCC) Start: 03-22-2025 End: 03-22-2025 ambulatory NILDA TED Facility:[facility] Start: 03-14-2025 End: 03-14-2025 Patient encounter procedure Odette Lindsay MD Work Phone: OB/Gynecology Comment on above: Palpitations (Primar y Dx); Supervision of high risk in second trimester (HCC); 23 weeks gestation of (HCC); Blurred vision; Generalized body aches; UTI (urinary tract infection) in , antepartum (HCC) Start: 03-14-2025 End: 03-14-2025 ambulatory ODETTE LINDSAY Facility:[facility] Start: 03-13-2025 End: 03-13-2025 ambulatory Opal Singh RN NURSE [employer] Comment on above: Patient Update Start: 03-11-2025 End: 03-11-2025 Patient encounter procedure Whi Tech 1 Support Representative [facility] Comment on [...] Start: 03-11-2025 End: 03-11-2025 ambulatory MARCIA FARRELL Facility:[facility] Start: 03-01-2025 End: 03-01-2025 Telephone encounter Kamilla Porter MD Work Phone: OB/Gynecology Comment on above: OB UTI Start: 02-24-2025 End: 02-24-2025 Telephone encounter Nurse Support Representative Chen Solorio Work Phone: Obstetrics/Gynecology Comment on [...] antepartum (HCC) Start: 02-23-2025 End: 02-23-2025 ambulatory PAOLA HUSSEINF Facility:[facility] Start: 02-18-2025 End: 02-19-2025 Follow-up encounter Franklyn Beckford APRN.ART PROFESSOR Work Phone: [facility] Start: 02-18-2025 End: 02-22-2025 Telephone encounter Marcia Farrell APRN.CNConsuelo Work Phone: OB/Gynecology Comment on above: Care Start: 02-17-2025 End: 02-17-2025 Patient encounter procedure Esha Porter APRN.ART PROFESSOR Work Phone: [facility] Comment on above: Burning with urinati on (Primary Dx) Start: 02-17-2025 End: 02-17-2025 ambulatory ESHA PORTER Facility:[facility] Start: 02-10-2025 End: 02-10-2025 ambulatory [facility] Facility:[facility] Start: 01-26-2025 End: 01-26-2025 Patient encounter procedure Antonieta Stanley MD Work Phone: OB/Gynecology Comment on above: Supervision of high risk , antepartum (HCC) (Primary Dx); Hx of delivery, currently (HCC); Family history of [place]'s disease; 16 weeks gestation of (HCC) History of d elivery, currently (HCC) (Primary Dx); Encounter for screening for malformation using ultrasound ([facility]); 16 weeks gestation of ([facility]) Start: 01-26-2025 End: 01-26-2025 ambulatory SCOTT ALCAZAR Facility:[facility] Start: 12-29-2024 End: 12-29-2024 [facility] Facility:[facility] Start: 12-28-2024 End: 12-28-2024 Patient encounter procedure Whi Tech 1 Support Representative [facility] Comment on above: Encounter for antena rachel screening for malformation (HCC) (Primary Dx); 8 weeks gestation of (HCC) 12 weeks gestation o f (HCC) (Primary Dx); History of delivery, currently (HCC) Family history of [place]'s disease (Primary Dx); Supervision of high risk , antepartum (HCC); Hx of delivery, currently (HCC) Start: 12-28-2024 End: 12-28-2024 [facility] Facility:[facility] Start: 12-14-2024 End: 12-14-2024 Telephone encounter Paola Husseinf TRINH Work Phone: OB/Gynecology Comment on above: Orders Start: 12-02-2024 End: 12-02-2024 Telephone encounter Nurse Support Representative Chen Solorio Work Phone: Obstetrics/Gynecology Comment on above: PRAF Start: 11-30-2024 End: 01-30-2025 Follow-up encounter Paola Hill APRN.CNP Work Phone: OB/Gynecology Start: 11-30-2024 End: 11-30-2024 Patient encounter procedure Paola Hill ART PROFESSOR Work Phone: OB/Gynecology Comment on above: Supervision of high risk , antepartum (HCC) (Primary Dx); Hx of delivery, currently (HCC); 8 weeks gestation of (HCC); Screen for STD (sexually transmitted disease); Screening for cervical cancer; Special screening examination for human papillomavirus (HPV); Nausea/vomiting in (HCC) Start: 11-30-2024 End: 11-30-2024 ambulatory PAOLA HILL Facility:[facility] Start: 11-25-2024 End: 12-14-2024 Telephone encounter Paola Garciacalf ART PROFESSOR Work Phone: OB/Gynecology Start: 11-24-2024 End: 11-24-2024 ambulatory [facility] Facility:[facility] Start: 11-14-2024 End: 11-14-2024 Patient encounter procedure Ann Marie Ariza APRN.ART PROFESSOR Work Phone: [facility] Comment on above: Acute midline low ba ck pain without sciatica (Primary Dx) Start: 11-14-2024 End: 11-14-2024 ambulatory ANN MARIERUBIA ARIZA Facility:[facility] Start: 11-11-2024 End: 11-11-2024 Emergency department patient visit Dr. Melissa Cabezas MD Work Phone: -Emergency Department Work Phone: Start: 11-10-2024 End: 01-10-2025 Follow-up encounter Reji Ding MD Work Phone: OB/Gynecology Start: 11-09-2024 End: 11-09-2024 Patient encounter procedure Support Representative [facility] Work Phone: OB/Gynecology Comment on above: History of ectopic p regnancy; Encounter for test, result positive (HCC) Start: 11-09-2024 End: 11-09-2024 ambulatory REJI DING Facility:[facility] Start: 11-08-2024 End: 11-08-2024 Patient encounter procedure Allen Wilson APRN.ART PROFESSOR Work Phone: [facility] Comment on above: Acute midline low ba ck pain without sciatica (Primary Dx) Start: 11-08-2024 End: 11-08-2024 ambulatory ALLEN KEYA Facility:[facility] Start: 11-05-2024 End: 11-05-2024 ambulatory [facility] Facility:[facility] Start: 10-29-2024 End: 10-29-2024 ambulatory [facility] Facility:[facility] Start: 10-28-2024 End: 12-28-2024 Follow-up encounter Marcia Farrell HOME HEALTH ASSISTANT.CNM Work Phone: OB/Gynecology Start: 10-27-2024 End: 10-27-2024 [facility] Facility:[facility] Start: 10-25-2024 End: 12-25-2024 Follow-up encounter Marcia Farrell HOME HEALTH ASSISTANT.CNM Work Phone: OB/Gynecology Start: 10-25-2024 End: 10-25-2024 Patient encounter procedure Marcia Farrell HOME HEALTH ASSISTANT.CNM Work Phone: OB/Gynecology Comment on above: Encounter for pregna ncy test, result positive (HCC) (Primary Dx); History of ectopic Start: 10-25-2024 End: 10-25-2024 ambulatory [facility] Facility:[facility] Start: 10-15-2024 End: 12-15-2024 Follow-up encounter Lance Gill MD Work Phone: [facility] Start: 10-14-2024 End: 10-14-2024 ambulatory SCOTT ALCAZAR Facility:[facility] Start: 10-14-2024 End: 10-14-2024 Patient encounter procedure Nilda Castellanos HOME HEALTH ASSISTANT.ART PROFESSOR Work Phone: [facility] Comment on above: Nausea vomiting and diarrhea (Primary Dx); Generalized abdominal pain Start: 08-24-2024 End: 10-24-2024 Follow-up encounter Miky Medeiros PA Work Phone: [facility] Start: 08-24-2024 End: 08-24-2024 ambulatory [facility] Facility:[facility] Start: 08-24-2024 End: 08-24-2024 Patient encounter procedure Nilda Castellanos APRN.ART PROFESSOR Work Phone: [facility] Comment on above: URI, acute (Primary Dx); Nausea; Viral illness Start: 08-18-2024 End: 08-18-2024 ambulatory [facility] Facility:[facility] Start: 08-18-2024 End: 08-18-2024 Patient encounter procedure Marcia Farrell APRN.CNM Work Phone: OB/Gynecology Comment on above: Missed menses (Prima ry Dx); Patient desires Start: 04-01-2024 End: 04-01-2024 Office outpatient visit 25 minutes Elena Robertson MD Work Phone: OB/Gynecology Comment on above: 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) Start: 03-31-2024 End: 04-02-2024 ambulatory Marcia Farrell APRN.CNM Work Phone: OB/Gynecology Comment on above: LABs Start: 03-31-2024 End: 04-02-2024 E-mail encounter from caregiver Marcia Hernandezrene BENTLEY Work Phone: OB/Gynecology Start: 03-26-2024 End: 03-26-2024 Patient encounter procedure Marcia Farrell APRN.CNM Work Phone: OB/Gynecology Comment on above: Vaginal spotting (Pr imary Dx); Threatened miscarriage in early ; Encounter for test, result positive; Bleeding in early ; History of delivery Start: 03-19-2024 End: 03-19-2024 ambulatory Emg 850) Neurology Comment on above: EMG Start: 03-19-2024 End: 03-19-2024 Patient encounter procedure Emg 2 Neur Richmond Mc (Max Weight: 850) Neurology Start: 03-11-2024 End: 03-11-2024 Patient encounter procedure Sanjana Pugh DO Work Phone: Orthopaedics Comment on above: Bilateral carpal roxy blanca syndrome (Primary Dx) Start: 10-09-2023 End: 10-09-2023 Emergency department patient visit [facility] Work Phone: Start: 10-09-2023 End: 10-09-2023 Patient encounter procedure Apolonia Wilson MACIEL.ART PROFESSOR Work Phone: [facility] Comment on above: Headache, unspecifie d headache type (Primary Dx); Dehydration Start: 09-22-2023 Telephone encounter Esha Porter APRN.ART PROFESSOR Work Phone: [facility] Comment on above: Results Start: 09-20-2023 End: 09-20-2023 Patient encounter procedure Miky PRATHER Work Phone: [facility] Comment on above: Burning with urinati on (Primary Dx) Start: 08-22-2023 End: 08-22-2023 Patient encounter procedure Miky PRATHER Work Phone: [facility] Comment on above: Skin infection (Prim emmy Dx) Start: 03-23-2023 Telephone encounter Esha Porter APRN.ART PROFESSOR Work Phone: [facility] Comment on above: Results Start: 03-22-2023 End: 03-22-2023 Patient encounter procedure Tasneem Ham APRN.ART PROFESSOR Work Phone: [facility] Comment on above: Burning with urinati on (Primary Dx) Start: 02-12-2023 ambulatory Antonieta Stanley MD Work Phone: OB/Gynecology Comment on above: Possible herpes outb reak Start: 02-06-2023 End: 02-06-2023 Subsequent hospital visit by physician [facility] Work Phone: Radiology Comment on above: Pelvic pain in femal e [R10.2] Start: 01-30-2023 ambulatory Pricila CORCORAN RN.[facility] Work Phone: OB/Gynecology Comment on above: Intense bleeding and cramping Start: 01-30-2023 Telephone encounter Antonieta Stanley MD Work Phone: OB/Gynecology Comment on above: Results Start: 01-30-2023 End: 01-30-2023 Patient encounter procedure Antonieta Stanley MD Work Phone: OB/Gynecology Comment on above: Pelvic pain in femal e (Primary Dx); Irregular menstrual cycle; Vaginal bleeding Start: 01-16-2023 End: 01-16-2023 Patient encounter procedure Pricila Vergara APRN.ART PROFESSOR Work Phone: OB/Gynecology Comment on above: Missed menses (Prima ry Dx) Start: 01-01-2023 End: 01-01-2023 Emergency department patient visit [facility]Emergency Department Work Phone: Start: 12-26-2022 Telephone encounter Miky PRATHER Work Phone: [facility] Comment on above: Results Start: 12-25-2022 End: 12-25-2022 Patient encounter procedure Nildaabrahan Gonzalesgs HOME HEALTH ASSISTANT.ART PROFESSOR Work Phone: [facility] Comment on above: Viral illness (Prima ry Dx) Start: 07-05-2022 End: 07-05-2022 Office outpatient visit 25 minutes Yosi Payne HOME HEALTH ASSISTANT.ART PROFESSOR Work Phone: [facility] Comment on above: Pharyngitis, unspeci fied etiology (Primary Dx) Start: 05-21-2022 End: 05-21-2022 Patient encounter procedure Jessica Monte APRN.ART PROFESSOR Work Phone: [facility] Comment on above: Urinary frequency (P rimary Dx); Burning with urination Start: 03-15-2022 Chart abstracting Elena Mccord ) Angel VACA [facility] [id number] Start: 02-18-2022 Telephone encounter Pricila goetz APRN.ART PROFESSOR Work Phone: OB/Gynecology Comment on above: Results Start: 02-15-2022 Telephone encounter Pricila ogetz APRN.ART PROFESSOR Work Phone: OB/Gynecology Comment on above: Results Start: 02-14-2022 End: 02-14-2022 Patient encounter procedure Pricila Vergara HOME HEALTH ASSISTANT.ART PROFESSOR Work Phone: OB/Gynecology Comment on above: Burning with urinati on (Primary Dx); Screening examination for STD (sexually transmitted disease) Start: 01-01-2022 Telephone encounter Marcia Sloan isatu HOME HEALTH ASSISTANT.CNM Work Phone: OB/Gynecology Comment on above: Results Start: 12-28-2021 End: 12-28-2021 Patient encounter procedure Marcia Bud HOME HEALTH ASSISTANT.CNM Work Phone: OB/Gynecology Comment on above: Screening examinatio n for STD (sexually transmitted disease) (Primary Dx); Folliculitis Start: 12-28-2021 End: 12-28-2021 Subsequent hospital visit by physician Xr [facility] [place] Work Phone: Radiology Comment on above: Injury of left ankle , initial encounter [S99.912A] Start: 12-28-2021 End: 12-28-2021 Patient encounter procedure Yosi Paganabdelrahman ST.ART PROFESSOR Work Phone: [facility] Comment on above: Acute pain of left k nee (Primary Dx); Injury of left ankle, initial encounter Start: 12-12-2021 Refill Kamilla Sethi Work Phone: OB/Gynecology Comment on above: Refill Request Start: 02-04-2019 End: 08-06-2019 Patient requested procedure Sanjana Pugh DO Work Phone: [facility] Procedures Date Procedure Procedure Detail Performing Clinician Start: 03-22-2025 Urnls dip stick/tabl et rgnt auto w/o microscopy Nilda Jean APRN.CNM Work Phone: Start: 03-11-2025 Culture bacterial quanttative colony count urine Nilda Jean APRN.CNM Work Phone: Start: 03-11-2025 Us preg uterus after 1st trimest 1/1st gestation Marcia Farrell HOME HEALTH ASSISTANT.CNM Work Phone: Start: 02-23-2025 Us preg uterus after 1st trimest 07/07 gestation Marcia Farrell HOME HEALTH ASSISTANT.CNM Work Phone: Start: 02-17-2025 Urnls dip stick/tabl et rgnt auto w/o microscopy Esha Porter HOME HEALTH ASSISTANT.ART PROFESSOR Work Phone: Start: 01-26-2025 Us preg uterus after 1st trimest 07/07 gestation Scott Alcazar MD Work Phone: Start: 12-29-2024 Antibody screen SCOTT ALCAZAR Comment on above: Order Comment: Speci men Type: BLOOD SPECIMENOrdering Facility: [facility] Address: [address] [place] [address] Performed By: #### T SPN ####CC MAIN BLOOD BANKCLIA [id number] [address] [place] Start: 12-28-2024 Us preg uterus after 1st trimest 07/07 gestation Paola Hill HOME HEALTH ASSISTANT.ART PROFESSOR Work Phone: Start: 11-30-2024 Us uterus l imited 1 fetuses Paola Hill HOME HEALTH ASSISTANT.ART PROFESSOR Work Phone: Start: 11-14-2024 Urnls dip stick/tabl et rgnt auto w/o microscopy [facility] Provider Start: 11-11-2024 Methadone measurement, urine Dr. Melissa Cabezas MD Work Phone: [...] 10-25-2024 UA DIP,URINE HCG (POC) Marcia Farrell HOME HEALTH ASSISTANT.CNM Work Phone: Start: 08-24-2024 STREP A MOLECULAR (POC) Nilda Castellanos HOME HEALTH ASSISTANT.ART PROFESSOR Work Phone: Start: 08-18-2024 UA DIP,URINE HCG (POC) Marcia Farrell HOME HEALTH ASSISTANT.CNM Work Phone: Start: 03-26-2024 UA DIP,URINE HCG (POC) Marcia Farrell HOME HEALTH ASSISTANT.CNM Work Phone: Start: 03-19-2024 Nerve conduction corby dies 5-6 studies Sanjana Pugh DO Work Phone: Start: 10-09-2023 SARS-CoV-2, Influenz a & RSV (PCR) Start: 09-20-2023 Urnls dip stick/tabl et rgnt auto w/o microscopy Miky PRATHER Work Phone: Start: 03-22-2023 Urnls dip stick/tabl et rgnt auto w/o microscopy Esha Porter HOME HEALTH ASSISTANT.ART PROFESSOR Work Phone: Start: 02-06-2023 Us transvaginal Antonieta Stanley MD Work Phone: Start: 01-30-2023 Urine test visual color cmprsn methisabela Stanley MD Work Phone: Start: 01-16-2023 Urine test visual color cmprsn meths Pricila Vergara HOME HEALTH ASSISTANT.ART PROFESSOR Work Phone: Start: 12-25-2022 COVID WITH FLUA+B, ROUTINE Nilda Castellanos HOME HEALTH ASSISTANT.ART PROFESSOR Work Phone: Start: 07-05-2022 STREP A MOLECULAR (POC) Yosi Payne HOME HEALTH ASSISTANT.ART PROFESSOR Work Phone: Start: 05-21-2022 Urnls dip stick/tabl et rgnt auto w/o microscopy Ann Marie Ariza HOME HEALTH ASSISTANT.ART PROFESSOR Work Phone: Start: 02-14-2022 Urnls dip stick/tabl et rgnt auto w/o microscopy Pricila Vergara HOME HEALTH ASSISTANT.ART PROFESSOR Work Phone: Start: 12-28-2021 Radex ankle complete minimum 3 views Yosi Payne HOME HEALTH ASSISTANT.ART PROFESSOR Work Phone: Plan of Treatment Date Care Activity Detail Author Start: 2077 RSV Vaccine (1 - 1-d ose 75+ series) RSV Vaccine (1 - 1-dose 75+ series) [facility] Start: 04-25-2031 Urine microalbumin profile [facility] Start: 12-01-2027 Screening for malign ant neoplasm of cervix Cervical Cancer Screening [facility] Start: 11-30-2025 GC (Gonorrhea) Screening () GC (Gonorrhea) Screening () [facility] Start: 11-30-2025 Screening for Chlamy ruby trachomatis Chlamydia Screening () [facility] Start: 05-13-2025 RSV Vaccine (1 - Ris k 1-dose series) RSV Vaccine (1 - Risk 1-dose series) [facility] Start: 04-08-2025 End: 04-08-2025 ambulatory 04/08/2025 2:15 PM EDT Results Only [facility] [address] [place] [address] [facility] Start: 04-08-2025 End: 04-08-2025 Patient encounter procedure 04/08/2025 1:15 PM EDT Routine Office Visit OB/Gynecology [address] [place] [address] Marcia Farrell APRN.CN [address] [place] [address] Ob OB/Gynecology Comment on above: Ob Start: 03-26-2025 GC (Gonorrhea) Screening () GC (Gonorrhea) Screening (-) [facility] Start: 03-26-2025 Screening for Chlamy ruby trachomatis Chlamydia Screening () [facility] Start: 03-23-2025 End: 03-23-2025 Patient encounter procedure OB/Gynecology Comment on above: OB OB- urine CATHERINE Start: 03-14-2025 End: 06-13-2025 TSH W/REFLEX FT4 [facility] Work Phone: Comment on above: Expected: 03/14/2025 , Expires: 06/13/2025 Start: 03-11-2025 End: 06-10-2025 ANEMIA REFLEX PANEL ANEMIA REFLEX PANEL Lab Routine Supervision of high risk in second trimester (HCC) 23 weeks gestation of (HCC) Expected: 03/11/2025, Expires: 06/10/2025 [facility] Comment on above: Expected: 03/11/2025 , Expires: 06/10/2025 Start: 03-11-2025 End: 03-11-2026 GESTATIONAL GLUCOSE SCREEN, 1-HOUR, 50 GRAM, NON-FASTING GESTATIONAL GLUCOSE SCREEN, 1-HOUR, 50 GRAM, NON-FASTING Lab Routine Supervision of high risk in second trimester (HCC) 23 weeks gestation of (HCC) Screening for diabetes mellitus Expected: 03/11/2025, Expires: 03/11/2026 [facility] Work Phone: Comment on above: Expected: 03/11/2025 , Expires: 03/11/2026 Start: 03-11-2025 End: 03-11-2026 SYPHILIS TREPONEMAL W/REFLEX SYPHILIS TREPONEMAL W/REFLEX Lab Routine Supervision of high risk in second trimester (HCC) 23 weeks gestation of (HCC) Expected: 03/11/2025, Expires: 03/11/2026 [facility] Comment on above: Expected: 03/11/2025 , Expires: 03/11/2026 Start: 03-11-2025 End: 03-11-2025 Patient encounter procedure [facility] Comment on above: Cervical Length US/OB Start: 03-07-2025 Influenza vaccination C [facility] Start: 02-23-2025 End: 02-23-2025 Patient encounter procedure [facility] Comment on above: Anatomy Anatomy/OB Start: 02-10-2025 End: 02-10-2025 Patient encounter procedure [facility] Comment on above: Cervical length OB Start: 02-09-2025 End: 02-09-2025 Patient encounter procedure 02/09/2025 10:00 AM EDT Routine Office Visit OB/Gynecology [address] [place] [address] Marcia Farrell APRN.CNM [address] [place] [address] OB OB/Gynecology Comment on above: OB Start: 01-26-2025 End: 01-26-2025 Patient encounter procedure Maternal Medicine Comment on above: History of d sandra, currently ([facility]) [O09.899] OB Start: 12-29-2024 End: 12-29-2024 ambulatory 12/29/2024 12:30 PM EDT Results Only [facility] [address] [place] [address] [facility] Start: 12-28-2024 End: 12-28-2025 OBSTETRIC ULTRASOUND WHI OBSTETRIC ULTRASOUND WHI Anc Imaging Routine History of delivery, currently ([facility]) Expected: 12/28/2024, Expires: 12/28/2025 [facility] Work Phone: Comment on above: Expected: 12/28/2024 , Expires: 12/28/2025 Start: 12-28-2024 End: 12-28-2024 Patient encounter procedure Maternal Medicine Comment on above: SHAUN and US MFM follow up Start: 11-30-2024 End: 03-01-2025 ANEMIA REFLEX PANEL ANEMIA REFLEX PANEL Lab Routine 8 weeks gestation of ([facility]) Expected: 11/30/2024, Expires: 03/01/2025 [facility] Work Phone: Comment on above: Expected: 11/30/2024 , Expires: 03/01/2025 Start: 11-30-2024 End: 03-01-2025 Hemoglobin A1c in Blood HEMOGLOBIN A1C Lab Routine 8 weeks gestation of ([facility]) Expected: 11/30/2024, Expires: 03/01/2025 [facility] Comment on above: Expected: 11/30/2024 , Expires: 03/01/2025 Start: 11-30-2024 End: 03-01-2025 Hepatitis B virus surface Ag [Presence] in Serum HEPATITIS B SURFACE ANTIGEN Lab Routine 8 weeks gestation of ([facility]) Expected: 11/30/2024, Expires: 03/01/2025 [facility] Comment on above: Expected: 11/30/2024 , Expires: 03/01/2025 Start: 11-30-2024 End: 03-01-2025 Hepatitis C virus Ab [Presence] in Serum HEPATITIS C ANTIBODY IA WITH CONFIRMATION Lab Routine 8 weeks gestation of ([facility]) Expected: 11/30/2024, Expires: 03/01/2025 [facility] Comment on above: Expected: 11/30/2024 , Expires: 03/01/2025 Start: 11-30-2024 End: 03-01-2025 HIV 1+2 Ab [Presence] in Serum or Plasma by Immunoassay HIV 1/2 COMBO WITH REFLEX TO DIFFERENTIATION Lab Routine 8 weeks gestation of ([facility]) Expected: 11/30/2024, Expires: 03/01/2025 [facility] Comment on above: Expected: 11/30/2024 , Expires: 03/01/2025 Start: 11-30-2024 End: 11-30-2025 OBSTETRIC ULTRASOUND WHI OBSTETRIC ULTRASOUND WHI Anc Imaging Routine 8 weeks gestation of ([facility]) Expected: 11/30/2024, Expires: 11/30/2025 [facility] Comment on above: Expected: 11/30/2024 , Expires: 11/30/2025 Start: 11-30-2024 End: 03-01-2025 RUBELLA IGG ANTIBODY RUBELLA IGG ANTIBODY Lab Routine 8 weeks gestation of ([facility]) Expected: 11/30/2024, Expires: 03/01/2025 [facility] Comment on above: Expected: 11/30/2024 , Expires: 03/01/2025 Start: 11-30-2024 End: 03-01-2025 SYPHILIS TREPONEMAL W/REFLEX SYPHILIS TREPONEMAL W/REFLEX Lab Routine 8 weeks gestation of ([facility]) Expected: 11/30/2024, Expires: 03/01/2025 [facility] Comment on above: Expected: 11/30/2024 , Expires: 03/01/2025 Start: 11-30-2024 End: 03-01-2025 TYPE + SCREEN TYPE + SCREEN Blood Bank Routine 8 weeks gestation of ([facility]) Expected: 11/30/2024, Expires: 03/01/2025 [facility] Comment on above: Expected: 11/30/2024 , Expires: 03/01/2025 Start: 11-30-2024 End: 11-30-2024 Patient encounter procedure 11/30/2024 8:15 AM EDT Initial Office Visit OB/Gynecology [address] [place] [address] Paola Hill APRN.ART PROFESSOR [address] [place] [address] New OB OB/Gynecology Comment on above: New OB Start: 11-16-2024 End: 11-16-2024 ambulatory 11/16/2024 8:30 AM EDT Results Only [facility] [address] [place] [address] [facility] Start: 11-15-2024 End: 11-15-2024 Patient encounter procedure 11/15/2024 7:45 AM EDT Appointment Radiology [address] [place] [address] Acute midline low back pain without sciatica [M54.50] Radiology Comment on above: Acute midline low ba ck pain without sciatica [M54.50] Start: 11-11-2024 [facility] Start: 11-10-2024 End: 11-10-2024 ambulatory 11/10/2024 8:45 AM EDT Results Only [facility] [address] [place] [address] [facility] Start: 11-09-2024 End: 11-09-2024 Patient encounter procedure 11/09/2024 9:30 AM EDT Office Visit OB/Gynecology [address] [place] [address] Formerly [facility], Support Representative [facility] [address] [place] [address] location/dating/viability OB/Gynecology Comment on above: location/dating/viab ility Start: 10-25-2024 End: 10-25-2024 Patient encounter procedure 10/25/2024 8:00 AM EDT Routine Office Visit OB/Gynecology [address] [place] [address] Marcia Farrell APRN.CNM [address] [place] [address] Taken 6 tests, all are positive OB/Gynecology Comment on above: Taken 6 te [address]s, all are positive Start: 04-09-2024 End: 04-09-2024 Patient encounter procedure 04/09/2024 1:45 PM EDT Initial Office Visit OB/Gynecology [address] [place] [address] Sharmila Jimenez APRN.ART PROFESSOR [address] [place] [address] NOB OB/Gynecology Comment on above: NOB Start: 04-07-2024 End: 04-07-2024 ambulatory 04/07/2024 1:30 PM EDT Results Only [facility] [address] [place] [address] [facility] Start: 04-05-2024 End: 04-05-2024 ambulatory 04/05/2024 2:15 PM EDT Results Only [facility] [address] [place] [address] [facility] Start: 03-29-2024 End: 03-29-2024 ambulatory 03/29/2024 1:00 PM EDT Results Only [facility] [address] [place] [address] [facility] Start: 03-26-2024 End: 06-25-2024 TYPE + SCREEN [facility] Comment on above: Expected: 03/26/2024 , Expires: 06/25/2024 Start: 03-19-2024 End: 03-19-2024 ambulatory 03/19/2024 2:15 PM EDT Procedure Neurology [address] [facility] [place] [address] Bilateral carpal tunnel syndrome [G56.03] Neurology Comment on above: 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] Start: 03-07-2024 Covid-19 Vaccine ( season) Covid-19 Vaccine ( season) [facility] Start: 03-07-2024 Covid-19 Vaccine () Covid-19 Vaccine () [facility] Start: 03-07-2024 Influenza vaccination [facility] Start: 10-09-2023 [facility] Start: 08-12-2023 CHLAMYDIA SCREENING (18-24) CHLAMYDIA SCREENING (18-24) [facility] Start: 08-12-2023 GC (GONORRHEA) SCREENING (18-24) GC (GONORRHEA) SCREENING (18-24) [facility] Start: 08-12-2023 Screening for Chlamy ruby trachomatis Chlamydia Screening (18-24) [facility] Start: 2023 Screening for malign ant neoplasm of cervix [facility] Start: 07-07-2023 Behavioral Health Screening Behavioral Health Screening [facility] Start: 07-07-2023 Depression Assessment Depression Ass essment [facility] Start: 05-21-2023 CHLAMYDIA SCREENING (18-24) CHLAMYDIA SCREENING (18-24) [facility] Start: 05-21-2023 GC (GONORRHEA) SCREENING (18-24) GC (GONORRHEA) SCREENING (18-24) [facility] Start: 03-22-2023 End: 05-22-2023 Bacteria identified in Urine by Culture URINE CULTURE Microbiology Routine Burning with urination Expected: 03/22/2023, Expires: 05/22/2023 [facility] Work Phone: Comment on above: Expected: 03/22/2023 , Expires: 05/22/2023 Start: 03-07-2023 Covid-19 Vaccine ( season) Covid-19 Vaccine ( season) [facility] Start: 03-07-2023 Influenza vaccination [facility] Start: 02-14-2023 CHLAMYDIA SCREENING (18-24) CHLAMYDIA SCREENING (18-24) [facility] Start: 02-14-2023 GC (GONORRHEA) SCREENING (18-24) GC (GONORRHEA) SCREENING (18-24) [facility] Start: 01-30-2023 End: 04-01-2023 Choriogonadotropin.beta subunit [Units/volume] in Serum or Plasma [facility] Work Phone: Comment on above: Expected: 01/30/2023 , Expires: 04/01/2023 Start: 01-16-2023 End: 03-18-2023 Choriogonadotropin.beta subunit [Units/volume] in Serum or Plasma HCG QUANTITATIVE Lab Routine Missed menses Expected: 01/16/2023, Expires: 03/18/2023 [facility] Work Phone: Comment on above: Expected: 01/16/2023 , Expires: 03/18/2023 Start: 12-28-2022 CHLAMYDIA SCREENING (18-24) CHLAMYDIA SCREENING (18-24) [facility] Start: 12-28-2022 GC (GONORRHEA) SCREENING (18-24) GC (GONORRHEA) SCREENING (18-24) [facility] Start: 07-07-2022 DEPRESSION ASSESSMENT DEPRESSION ASS ESSMENT [facility] Start: 05-21-2022 End: 07-21-2022 Chlamydia trachomatis+Neisseria gonorrhoeae DNA [Presence] in Urine by AQUILINO with probe detection GC/CHLAMYDIA AMPLIF, URINE Microbiology Routine Burning with urination Expected: 05/21/2022, Expires: 07/21/2022 [facility] Work Phone: Comment on above: Expected: 05/21/2022 , Expires: 07/21/2022 Start: 05-02-2022 CHLAMYDIA SCREENING (18-24) CHLAMYDIA SCREENING (18-24) [facility] Start: 05-02-2022 GC (GONORRHEA) SCREENING (18-24) GC (GONORRHEA) SCREENING (18-24) [facility] Start: 03-07-2022 Influenza vaccination C [facility] Start: 12-28-2021 End: 02-27-2022 Trichomonas vaginalis Ag [Presence] in Genital specimen by Immunoassay TRICHOMONAS PREP/ANTIGEN Microbiology Routine Screening examination for STD (sexually transmitted disease) Expected: 12/28/2021, Expires: 02/27/2022 [facility] Work Phone: Comment on above: Expected: 12/28/2021 , Expires: 02/27/2022 Start: 07-07-2021 DEPRESSION ASSESSMENT DEPRESSION ASS ESSMENT [facility] Start: 08-04-2020 Meningococcal B Vacc ine (2 of 2 - Bexsero SCDM 2-dose series) Meningococcal B Vaccine (2 of 2 - Bexsero SCDM 2-dose series) [facility] Start: 2020 Anxiety Screening Anxiety Screening [facility] Start: 2020 Depression Screening Depression Scre ening [facility] Start: 06-20-2020 HEPATITIS A (2 of 2 - Risk 2-dose series) HEPATITIS A (2 of 2 - Risk 2-dose series) [facility] Start: 06-20-2020 Hepatitis A Vaccine (2 of 2 - Risk 2-dose series) Hepatitis A Vaccine (2 of 2 - Risk 2-dose series) [facility] Start: 06-20-2020 HPV VACCINE (3 - 3-d ose series) HPV VACCINE (3 - 3-dose series) [facility] Start: 03-01-2020 Meningococcal B Vaccine: Consider Based On Risk (2 of 2 - Risk Bexsero 2-dose series) Meningococcal B Vaccine: Consider Based On Risk (2 of 2 - Risk Bexsero 2-dose series) [facility] Start: 03-01-2020 MENINGOCOCCAL B: Consider based on risk (2 of 2 - Risk Bexsero 2-dose series) MENINGOCOCCAL B: Consider based on risk (2 of 2 - Risk Bexsero 2-dose series) [facility] Start: 2016 PEDS TO ADULT TRANSITION ANNUAL ASSESSMENT PEDS TO ADULT TRANSITION ANNUAL ASSESSMENT [facility] Start: 2014 Adult depression screening assessment DEPRESSION SCREENING [facility] Start: 2014 PEDS TO ADULT TRANSITION INITIAL DISCUSSION PEDS TO ADULT TRANSITION INITIAL DISCUSSION [facility] Start: 2013 HPV VACCINE (1 - 2-d ose series) HPV VACCINE (1 - 2-dose series) [facility] Start: 2012 MENINGOCOCCAL B: Consider based on risk (1 of 2 - Risk Bexsero 2-dose series) MENINGOCOCCAL B: Consider based on risk (1 of 2 - Risk Bexsero 2-dose series) [facility] Start: 2007 COVID-19 VACCINE (#1) COVID-19 VACCI NE (#1) [facility] Start: 01-19-2003 COVID-19 VACCINE (#1) COVID-19 VACCI NE (#1) [facility] Start: 2002 HEPATITIS B (1 of 3 - 3-dose series) HEPATITIS B (1 of 3 - 3-dose series) [facility] Bacteria identified in Urine by Culture URINE CULTURE Microbiology Routine Burning with urination Ordered: 02/14/2022 [facility] Work Phone: Comment on above: Ordered: 02/14/2022 Bacteria identified in Urine by Culture URINE CULTURE Microbiology Routine Urinary frequency Burning with urination Ordered: 05/21/2022 [facility] Work Phone: Comment on above: Ordered: 05/21/2022 Bacteria identified in Urine by Culture URINE CULTURE Microbiology Routine Burning with urination 09/20/2023 1:48 PM EDT [facility] Work Phone: Bacteria identified in Urine by Culture BACTERIAL CULTURE, URINE Microbiology Routine 8 weeks gestation of ([facility]) Ordered: 11/30/2024 [facility] Comment on above: Ordered: 11/30/2024 Bacteria identified in Urine by Culture BACTERIAL CULTURE, URINE Microbiology Routine Burning with urination 02/17/2025 11:11 AM EDT [facility] Work Phone: Bacteria identified in Urine by Culture BACTERIAL CULTURE, URINE Microbiology Routine Supervision of high risk in second trimester (HCC) 24 weeks gestation of (HCC) Urinary tract infection without hematuria, site unspecified 03/22/2025 10:36 AM EDT [facility] Work Phone: BACTERIAL VAGINOSIS NAAT BACTERIAL VAGINOSIS NAAT Lab Routine Vaginal spotting 03/26/2024 2:20 PM EDT [facility] Chlamydia trachomatis+Neisseria gonorrhoeae DNA [Presence] in Unspecified specimen by AQUILINO with probe detection GC/CHLAMYDIA DNA DET Lab Routine Screening examination for STD (sexually transmitted disease) 12/28/2021 3:35 PM T [facility] Work Phone: Chlamydia trachomatis+Neisseria gonorrhoeae DNA [Presence] in Unspecified specimen by AQUILINO with probe detection GONORRHEA/CHLAMYDIA NAAT Lab Routine Vaginal spotting 03/26/2024 2:20 PM EDT [facility] Chlamydia trachomatis+Neisseria gonorrhoeae DNA [Presence] in Unspecified specimen by AQUILINO with probe detection GONORRHEA/CHLAMYDIA NAAT Lab Routine 8 weeks gestation of (HCC) Ordered: 11/30/2024 [facility] Comment on above: Ordered: 11/30/2024 Chlamydia trachomatis+Neisseria gonorrhoeae DNA [Presence] in Urine by AQUILINO with probe detection GC/CHLAMYDIA AMPLIF, URINE Microbiology Routine Screening examination for STD (sexually transmitted disease) Ordered: 02/14/2022 [facility] Work Phone: Comment on above: Ordered: 02/14/2022 End: 03-26-2025 Choriogonadotropin.beta subunit [Units/volume] in Serum or Plasma HCG QUANTITATIVE Lab Routine Vaginal spotting 2x per week for 10 Occurrences starting 03/26/2024 until 03/26/2025 [facility] Work Phone: Comment on above: 2x per week for 10 O ccurrences starting 03/26/2024 until 03/26/2025 Choriogonadotropin.b eta subunit [Units/volume] in Serum or Plasma HCG QUANTITATIVE Lab Routine Vaginal spotting 03/26/2024 2:25 PM T [facility] End: 10-25-2025 Choriogonadotropin.beta subunit [Units/volume] in Serum or Plasma HCG QUANTITATIVE Lab Routine Encounter for test, result positive (HCC) History of ectopic 2x per week for 8 Occurrences starting 10/25/2024 until 10/25/2025 [facility] Work Phone: Comment on above: 2x per week for 8 Oc currences starting 10/25/2024 until 10/25/2025 Choriogonadotropin.b eta subunit [Units/volume] in Serum or Plasma HCG QUANTITATIVE Lab Routine Encounter for test, result positive (HCC) History of ectopic 10/25/2024 8:38 AM EDT [facility] COVID & INFLUENZA A/ B & RSV PCR, ROUTINE COVID & INFLUENZA A/B & RSV PCR, ROUTINE Microbiology Routine URI, acute 08/24/2024 12:00 PM EST [facility] Work Phone: End: 03-11-2025 EMG(NEURO/NI) EMG(NEURO/NI) EMG Routine Bilateral carpal tunnel syndrome 1 Occurrences starting 03/11/2024 until 03/11/2025 [facility] Work Phone: Comment on above: 1 Occurrences starti ng 03/11/2024 until 03/11/2025 PAP TEST PAP TEST Lab [place] Screening for cervical cancer Special screening examination for human papillomavirus (HPV) Ordered: 11/30/2024 [facility] Comment on above: Ordered: 11/30/2024 Patient Education [facility] Work Phone: Patient referral [facility] Work Phone: T VAGINALIS AMPLIFICATION T VAGINALIS AMPLIFICATION Lab Routine Screening examination for STD (sexually transmitted disease) Ordered: 02/14/2022 [facility] Work Phone: Comment on above: Ordered: 02/14/2022 TRICHOMONAS VAGINALI S NAAT TRICHOMONAS VAGINALIS NAAT Lab Routine Screen for STD (sexually transmitted disease) Ordered: 11/30/2024 [facility] Comment on above: Ordered: 11/30/2024 End: 12-14-2025 US Kidney - bilateral and Urinary bladder US KIDNEY/BLADDER Radiology STAT Acute midline low back pain without sciatica 1 Occurrences starting 11/14/2024 until 12/14/2025 [facility] Work Phone: Comment on above: 1 Occurrences starti ng 11/14/2024 until 12/14/2025 End: 03-04-2024 Us transvaginal US FEMALE PELVIS TRANSVAG Radiology Routine Pelvic pain in female 1 Occurrences starting 02/03/2023 until 03/04/2024 [facility] Work Phone: Comment on above: 1 Occurrences starti ng 02/03/2023 until 03/04/2024 [facility] Immunizations Immunization Date Immunization Notes Care Provider Augie gipson 04-25-2021 tetanus toxoid, redu vincent diphtheria toxoid, and acellular pertussis vaccine, adsorbed Kamilla Porter MD Work Phone: [facility] 02-02-2020 Human Papillomavirus 9-valent vaccine Nilda Castellanos HOME HEALTH ASSISTANT.[facility] Work Phone: [facility] Work Phone: 02-02-2020 meningococcal B vacc ine, recombinant, OMV, adjuvanted Nilda Castellanos HOME HEALTH ASSISTANT.[facility] Work Phone: [facility] Work Phone: 12-20-2019 hepatitis A vaccine, pediatric/adolescent dosage, 2 dose schedule Nilda Castellanos HOME HEALTH ASSISTANT.[facility] Work Phone: [facility] Work Phone: 12-20-2019 Human Papillomavirus 9-valent vaccine Nilda Castellanos HOME HEALTH ASSISTANT.[facility] Work Phone: [facility] Work Phone: 12-20-2019 meningococcal polysaccharide (groups A, C, Y and W-135) diphtheria toxoid conjugate vaccine (MCV4P) Nilda Castellanos HOME HEALTH ASSISTANT.[facility] Work Phone: [facility] Work Phone: 06-22-2019 tetanus toxoid, redu vincent diphtheria toxoid, and acellular pertussis vaccine, adsorbed Kamilla Porter MD Work Phone: [facility] 02-20-2015 meningococcal polysaccharide (groups A, C, Y and W-135) diphtheria toxoid conjugate vaccine (MCV4P) Nilda Castellanos HOME HEALTH ASSISTANT.[facility] Work Phone: [facility] Work Phone: 02-20-2015 tetanus toxoid, redu vincent diphtheria toxoid, and acellular pertussis vaccine, adsorbed Nilda Castellanos HOME HEALTH ASSISTANT.[facility] Work Phone: [facility] Work Phone: 06-20-2008 diphtheria, tetanus toxoids and acellular pertussis vaccine, unspecified formulation Nilda Castellanos HOME HEALTH ASSISTANT.[facility] Work Phone: [facility] Work Phone: 06-20-2008 measles, mumps and rubella virus vaccine Nilda Castellanos HOME HEALTH ASSISTANT.[facility] Work Phone: [facility] Work Phone: 06-20-2008 poliovirus vaccine, inactivated Nilda Castellanos HOME HEALTH ASSISTANT.ART PROFESSOR Work Phone: [facility] Work Phone: 06-20-2008 varicella virus vaccine Renay ica Castellanos HOME HEALTH ASSISTANT.[facility] Work Phone: [facility] Work Phone: 05-17-2004 influenza virus vacc ine, whole virus Nilda Castellanos HOME HEALTH ASSISTANT.[facility] Work Phone: [facility] Work Phone: 05-17-2004 influenza virus vacc ine, unspecified formulation Tasneem Ham HOME HEALTH ASSISTANT.[facility] Work Phone: [facility] 11-21-2003 diphtheria, tetanus toxoids and acellular pertussis vaccine, unspecified formulation Nilda Castellanos HOME HEALTH ASSISTANT.[facility] Work Phone: [facility] Work Phone: 11-21-2003 varicella virus vaccine Renay ica Castellanos HOME HEALTH ASSISTANT.[facility] Work Phone: [facility] Work Phone: 07-25-2003 haemophilus influenz ae type b conjugate and Hepatitis B vaccine Nilda Castellanos HOME HEALTH ASSISTANT.ART PROFESSOR Work Phone: [facility] Work Phone: 07-25-2003 measles, mumps and rubella virus vaccine Nilda Castellanos HOME HEALTH ASSISTANT.[facility] Work Phone: [facility] Work Phone: 07-25-2003 poliovirus vaccine, inactivated Nilda Castellanos HOME HEALTH ASSISTANT.[facility] Work Phone: [facility] Work Phone: 06-16-2003 influenza virus vacc ine, whole virus Nilda Castellanos HOME HEALTH ASSISTANT.[facility] Work Phone: [facility] Work Phone: 05-04-2003 diphtheria, tetanus toxoids and acellular pertussis vaccine, unspecified formulation Nilda Castellanos HOME HEALTH ASSISTANT.[facility] Work Phone: [facility] Work Phone: 05-04-2003 haemophilus influenz ae type b vaccine, PRP-T conjugate Nilda Castellanos HOME HEALTH ASSISTANT.[facility] Work Phone: [facility] Work Phone: 05-04-2003 pneumococcal conjuga te vaccine, 7 valent Nilda Castellanos HOME HEALTH ASSISTANT.[facility] Work Phone: [facility] Work Phone: 02-15-2003 pneumococcal conjuga te vaccine, 7 valent Nilda Castellanos HOME HEALTH ASSISTANT.[facility] Work Phone: [facility] Work Phone: 02-15-2003 poliovirus vaccine, inactivated Nilda Castellanos HOME HEALTH ASSISTANT.[facility] Work Phone: [facility] Work Phone: 02-01-2003 diphtheria, tetanus toxoids and acellular pertussis vaccine, unspecified formulation Nilda Castellanos HOME HEALTH ASSISTANT.[facility] Work Phone: [facility] Work Phone: 02-01-2003 haemophilus influenz ae type b vaccine, PRP-T conjugate Nilda Castellanos HOME HEALTH ASSISTANT.[facility] Work Phone: [facility] Work Phone: 2002 pneumococcal conjuga te vaccine, 7 valent Nilda Castellanos HOME HEALTH ASSISTANT.[facility] Work Phone: [facility] Work Phone: 2002 poliovirus vaccine, inactivated Nilda Castellanos HOME HEALTH ASSISTANT.[facility] Work Phone: [facility] Work Phone: 2002 diphtheria, tetanus toxoids and acellular pertussis vaccine, unspecified formulation Nilda Castellanos HOME HEALTH ASSISTANT.[facility] Work Phone: [facility] Work Phone: 2002 haemophilus influenz ae type b vaccine, PRP-T conjugate Nilda Grace HOME HEALTH ASSISTANT.ART PROFESSOR Work Phone: [facility] Work Phone: 2002 hepatitis B vaccine, pediatric or pediatric/adolescent dosage Nilda Castellanos HOME HEALTH ASSISTANT.ART PROFESSOR Work Phone: [facility] Work Phone: 2002 hepatitis B vaccine, pediatric or pediatric/adolescent dosage Nilda Castellanos HOME HEALTH ASSISTANT.[facility] Work Phone: [facility] Work Phone: Payers Date Payer Category Payer Self-pay [id number] 2022 Unknown [id number] 2014 [facility] MEDICA[facility] [id number] 2014-Present [phone] [address] [place] [address] Medicaid [id number] 2014 Medicaid [id number] Unknown [id number] Unknown [id number] Social History Date Type Detail Facility Start: 02-04-2019 End: 03-26-2024 Tobacco smoking status NHIS Ex-smoker [facility] Work Phone: Start: 07-05-2018 End: 01-03-2019 History of tobacco use Current smoker [facility] Work Phone: Start: 07-05-2018 End: 01-03-2019 History of tobacco use Cigarette Smoker [facility] Work Phone: Start: 02-04-2019 End: 03-26-2024 Tobacco use and exposure Former smokeless tobacco user [facility] Work Phone: End: 01-31-2019 History of tobacco use Chews Tobacco [facility] Work Phone: Start: 08-14-2021 End: 03-14-2025 Alcohol intake Lifetime non-drinker (finding) [facility] Start: 02-04-2019 History SDOH Alcohol Frequency 1 [facility] Start: 11-01-2020 Education 11 [facility] Start: 2002 Sex Assigned At Not on file [facility] Start: 12-18-2021 End: 05-21-2022 Exposure to SARS-CoV-2 (event) Not sure [facility] Start: 2002 Sex Assigned At Female C [facility] Start: 01-01-2023 End: 10-09-2023 Tobacco smoking status MEIS Unknown if ever smoked [facility] Start: 11-11-2020 Cigarettes [facility] Start: 01-16-2023 End: 03-26-2024 History of Social function [facility] Work Phone: Start: 01-16-2023 End: 03-26-2024 Tobacco use panel [facility] Work Phone: Start: 02-04-2014 National Score (1-100), lower number is lower risk 70 [facility] Start: 08-12-2022 Gender identity Choose not to disclose [facility] Start: 08-12-2022 Sexual orientation Bisexual (finding ) [facility] How often to you hav e a drink containing alcohol? Never [facility] Work Phone: Start: 11-11-2024 Tobacco smoking stat us MEIS Smokes tobacco daily (finding) [facility] Start: 10-15-2024 [facility] NEGATED: Highlighted row [facility] Goals Date Patient Goal Desired Activity /State Personal health goal Functional Status Date Assessment Result Facility 05-10-2021 Are you deaf, or do you have serious difficulty hearing No 05/10/2021 2:39 PM EDT Padmaja Villalobos, RN No [facility] 05-10-2021 Are you blind, or do you have serious difficulty seeing, even when wearing glasses No 05/10/2021 2:39 PM EDT Padmaja Villalobos, RN No [facility] 05-10-2021 Do you have serious difficulty walking or climbing stairs No 05/10/2021 2:39 PM EDT Padmaja Villalobos, RN No [facility] 05-10-2021 Do you have difficul ty dressing or bathing No 05/10/2021 2:39 PM EDT Padmaja Villalobos, RN [facility] 05-10-2021 Because of a physica l, mental, or emotional condition, do you have difficulty doing errands alone such as visiting a physician's office or shopping No 05/10/2021 2:39 PM EDT Padmaja Villalobos RN No [facility] Mental Status Date Assessment Result Facility 10-09-2023 Cognitive function Level Of Cons ciousness Awake;Alert;Appropriate;Fol lows Commands [facility] Work Phone: 01-01-2023 Cognitive function Level Of Cons ciousness Awake;Alert;Appropriate;Fol lows Commands [facility] Work Phone: 05-10-2021 Because of a physica l, mental, or emotional condition, do you have serious difficulty concentrating, remembering, or making decisions No 05/10/2021 2:39 PM EDT Padmaja Villalobos, LIO No [facility] Clinical Notes 02-13-2021 to 05-13-2025 Quick Notes - Nilda Jean APRN.[facility] - 03/22/2025 11:50 AM EDTPrenatal Quick Notes - Nilda Jean APRN.CN - 03/22/2025 11:50 AM EDTPatient InstructionsPatient Instructions Note Date & Type Note Facility 05-13-2025 Note HNO ID: [id number] Author: REJI DING MD Service: ? Author Type: Physician Type: Progress Notes Filed: 05/13/2025 16:09 Note Text: NST SUMMARY PROVIDER ASSESSMENT AND INTERPRETATION Barbara Schwab is a 24 year old female, , who is at 32w0d with an ABRAHAM of 07/08/2025, by Ultrasound dating method. Indications for NST: Threatened Labor- Baseline: 130 Variability: Moderate Accelerations: Present 15 X 15 Decelerations: None Contractions: TOCO: Irregular Interpretation: Reactive SIGNATURE: Reji Ding MD [facility] 05-13-2025 Note HNO ID: [id number] Author: BECKY FAY RN Service: ? Author Type: Registered Nurse Type: Progress Notes Filed: 05/13/2025 16:09 Note Text: Barbara Schwab presents for injection of Betamethasone as ordered by Dr. Ding. GA:32w0d Betamethasone (Celestone) 12.5mg first dose, given IM - see SEP. Patient tolerated well. Dr. Ding in office at time of injection. Becky Fay RN [facility] 03-28-2025 Note HNO ID: [id number] Author: ESHA PORETR APRN.MATTHEW Service: ? Author Type: Nurse Practitioner Type: Progress Notes Filed: 03/28/2025 09:44 Note Text: URGENT CARE MAXIMILIANO Subjective Barbara Schwab is [...] agrees with care plan. and Recording using Kann[employer] software for draft documentation of the visit was discussed with the patient/authorized career services representative; all questions welcomed and answered. Patient/authorized career services representative agreed to proceed History and Record Review External record(s) reviewed: no prior records. Disposition The patient was discharged. Procedures [facility] 03-22-2025 Progress note Formatting of t [...] discussed with the Patient or Patient's Authorized Mattress Packer. As applicable, any other physician, advance practice provider, medical student, or other health professional student that will be observing or involved in the sensitive examination for educational or training purposes was discussed with the Patient or Authorized Mattress Packer. The Patient or Authorized Mattress Packer has agreed to proceed with the sensitive [...] call RTO as scheduled Nilda Jean APRN.CNM [facility] 03-22-2025 Miscellaneous Notes JS: Barbara Schwab is [...] discussed with the Patient or Patient's Authorized Mattress Packer. As applicable, any other physician, advance practice provider, medical student, or other health professional student that will be observing or involved in the sensitive examination for educational or training purposes was discussed with the Patient or Authorized Mattress Packer. The Patient or Authorized Mattress Packer has agreed to proceed with the sensitive [...] Nilda Jean APRN.CNM documented in this encounter [facility] 03-22-2025 Instructions Fátima Chase MA - 03/22/2025 10:01 AM EDT SEQUENTIAL SCREENINGS The [facility] offers sequential screenings for women who are [...] It will require an appointment with our install technician. This is not an ultrasound performed [...] the above symptoms, contact our office at [phone] and ask to speak with a nurse. After hours, you can call doctors registry at [phone] OR call [facility] at [phone] and ask to have the doctor bonderizer paged. If you consider this an emergency, dial [phone]- or go to your nearest emergency department. NEED HELP? Are you dealing with a violent or abusive relationship? Are you a victim of rape or sexual assult? Call [facility] ([place]) 24 hour Crisis Hotline: 543.508.5244 or 770-314-8253. MANUAL Your Guide to a Healthy manual is now on-line. Visit [email or web address] ancyGuide to download your free copy documented in this encounter [facility] 03-15-2025 Progress note Formatting of t his [...] RTO in 4 weeks Nilda Jean APRN.CNM [facility] 03-15-2025 Miscellaneous Notes 03/11/25-S: Barbara Schwab is [...] Nilda Jean APRN.CNM documented in this encounter [facility] 03-14-2025 Note HNO ID: [id number] Author: ODETTE LINDSAY MD Service: ? Author Type: Physician Type: Progress Notes Filed: 03/14/2025 14:35 Note Text: SW- Add on visit for multiple complaints. Over the weekend she had a day where her vision was white and blurry, and she felt she was [...] sent. CATHERINE next visit Odette Lindsay DO [facility] 03-14-2025 History of Presen t illness Narrative SW- Add on visit for multiple complaints. Over the weekend she had a day where her vision was white and blurry, and she felt she was [...] Odette Lindsay DO documented in this encounter [facility] 03-14-2025 Instructions Farooq Dominguez LPN - 03/14/2025 1:02 PM EDT SEQUENTIAL SCREENINGS The [facility] offers sequential screenings for women who are [...] It will require an appointment with our install technician. This is not an ultrasound performed [...] the above symptoms, contact our office at [phone] and ask to speak with a nurse. After hours, you can call doctors registry at [phone] OR call [facility] at [phone] and ask to have the doctor bonderizer paged. If you consider this an emergency, dial 9-9-6 or go to your nearest emergency department. NEED HELP? Are you dealing with a violent or abusive relationship? Are you a victim of rape or sexual assult? Call [facility] ([facility] 24 hour Crisis Hotline: 452.664.9688 or 939-741-0037. MANUAL Your Guide to a Healthy manual is now on-line. Visit [email or web address] ancyGuide to download your free copy documented in this encounter [facility] 03-13-2025 Telephone encounter Note Patient calling regarding B/p 110/88.Conferenced to [place] [facility] [ ] to speak with provider bonderizer for Marcia Farrell CNM.. GO TO THE EMERGENCY ROOM OR CALL 911 IF: * You develop any new symptoms * Your condition worsens * You are concerned or anxious about your condition for any other reason. [facility] 03-13-2025 Miscellaneous Notes Patient calling regarding B/p 110/88.Conferenced to [facility] [ ] to speak with provider bonderizer for Marcia Farrell CNM.. GO TO THE EMERGENCY ROOM OR CALL 911 IF: * You develop any new symptoms * Your condition worsens * You are concerned or anxious about your condition for any other reason. documented in this encounter [facility] 03-11-2025 Note Indication Follow-up evaluation for cervical [...] 30.1 mm Performed By: Yesenia Mccarthy RDMS, RVT Read By: Christian Linton M.D. [facility] 03-11-2025 Instructions Elizabeth Potts MA - 03/11/2025 1:33 PM EDT Oral Glucose Tolerance Test During Your provider has ordered an oral glucose tolerance test. For more information: My [facility] Oral Glucose Tolerance Test How do I [...] and is not advised. SEQUENTIAL SCREENINGS The [facility] offers sequential screenings for women who are [...] It will require an appointment with our install technician. This is not an ultrasound performed [...] the above symptoms, contact our office at [phone] and ask to speak with a nurse. After hours, you can call doctors registry at [phone] OR call [facility] at [phone] and ask to have the doctor bonderizer paged. If you consider this an emergency, dial [phone] or go to your nearest emergency department. NEED HELP? Are you dealing with a violent or abusive relationship? Are you a victim of rape or sexual assult? Call [facility] ([place]) 24 hour Crisis Hotline: 298.692.9887 or 863-060-5792. MANUAL Your Guide to a Healthy manual is now on-line. Visit [email or web address] [email or web address] to download your free copy documented in this encounter [facility] 03-01-2025 Telephone encounter Note Patient notified. Becky Fay RN The following approved medication requests have been transmitted electronically. Requested Prescriptions Signed Prescriptions Disp Refills sulfamethoxazole-trimethoprim (BACTRIM DS) 800-160 mg per tablet 14 tablet 0 Sig: Take 1 tablet by mouth two times a day for 7 days. Authorizing Provider: KAMILLA PORTER Pharmacy Information Pharmacy Address Telephone [facility] [phone] [place], [place] [address] [facility] 03-01-2025 Miscellaneous Notes Patient notified. Becky Fay RN The following approved medication requests have been transmitted electronically. Requested Prescriptions Signed Prescriptions Disp Refills sulfamethoxazole-trimethoprim (BACTRIM DS) 800-160 mg per tablet 14 tablet 0 Sig: Take 1 tablet by mouth two times a day for 7 days. Authorizing Provider: KAMILLA PORTER Pharmacy Information Pharmacy Address Telephone [address] [phone] [place], [place] [address] Filed Kamilla Porter MD' She needs a [...] Elena Rivas RN documented in this encounter [facility] 03-01-2025 Telephone encounter Note Filed Kamilla Porter MD' [facility] 03-01-2025 Telephone encounter Note She needs a bactrim prescription then. She did not have that one prescribed. Becky Fay RN [facility] 03-01-2025 Telephone encounter Note OK to take bactrim Kamilla Porter MD [facility] 03-01-2025 Telephone encounter Note 21w4d Patient was [...] need a new urine culture first? Elena Rivas, RN [facility] 02-24-2025 Telephone encounter Note 2nd risk assessment form submitted 02/24/25 Donaldo Desai RN [facility] 02-24-2025 Miscellaneous Notes 2nd risk assessment form submitted 02/24/25 Donaldo Desai RN documented in this encounter [facility] 02-23-2025 Telephone encounter Note Please file order for anatomy ultrasound. Yesenia Katz RN [facility] 02-23-2025 Miscellaneous Notes Please file order for anatomy ultrasound. Yesenia Katz RN documented in this encounter [facility] 02-23-2025 Progress note Formatting of t his [...] reviewed and when to call 2) RTO [facility] 02-23-2025 Miscellaneous Notes S: Barbara Schwab is [...] CL - RTO 4 weeks for SHAUN Marcia Farrell APRN.CNM P: 1) PTL precautions reviewed and when to call 2) RTO documented in this encounter [facility] 02-23-2025 Instructions Adwoa Conrad LPN - 02/23/2025 8:55 AM EDT SEQUENTIAL SCREENINGS The [facility] offers sequential screenings for women who are [...] It will require an appointment with our install technician. This is not an ultrasound performed [...] the above symptoms, contact our office at [phone] and ask to speak with a nurse. After hours, you can call doctors registry at [phone] OR call [facility] at [phone] and ask to have the doctor bonderizer paged. If you consider this an emergency, dial 9--1 or go to your nearest emergency department. NEED HELP? Are you dealing with a violent or abusive relationship? Are you a victim of rape or sexual assult? Call [facility] ([place]) 24 hour Crisis Hotline: 295.959.8747 or 793-390-1450. MANUAL Your Guide to a Healthy manual is now on-line. Visit [email or web address] [email or web address] to download your free copy documented in this encounter [facility] 02-22-2025 Telephone encounter Note See 02/18/25 results follow- up encounter. Patient was notified by urgent care regarding new antibiotic and results. Becky Fay RN [facility] 02-22-2025 Miscellaneous Notes See 02/18/25 results follow- up encounter. Patient was notified by urgent care regarding new antibiotic and results. Becky Fay RN 20w3d Culture >=100,000 CFU/ml Proteus vulgaris Abnormal Urine culture resulted and urgent care provider addressed as culture resistant to Macrobid. New Rx for Bactrim prescribed and faxed to [email or web address] in [place]. Confirmed with pharmacy that Pt did pick Rx up. Tried calling Pt to review that she is indeed taking the Bactrim only at this time to properly treat UTI; However, voicemail box has not been set up yet. Nancy Atkins RN Patient was prescribed Macrobid and has taken 2 doses so far. C/o urinary frequency and side cramps. Burning w/ urination has resolved. Patient is [...] alternative appointments. TY! documented in this encounter [facility] 02-21-2025 Telephone encounter Note 20w3d Culture >=100,000 CFU/ml Proteus vulgaris Abnormal Urine culture resulted and urgent care provider addressed as culture resistant to Macrobid. New Rx for Bactrim prescribed and faxed to [email or web address] in [place]. Confirmed with pharmacy that Pt did pick Rx up. Tried calling Pt to review that she is indeed taking the Bactrim only at this time to properly treat UTI; However, voicemail box has not been set up yet. Nancy Atkins RN [facility] 02-18-2025 Telephone encounter Note Patient was prescribed Macrobid and has taken 2 doses so far. C/o urinary frequency and side cramps. Burning w/ urination has resolved. Patient is taking tylenol that is helping to resolve side cramps. Next ob appointment 02/23/25. [facility] 02-18-2025 Telephone encounter Note Attempted to reach patient by phone. No answer and unable to leave a voicemail. Mailbox not set up yet. Elena Rivas, LIO [facility] 02-18-2025 Telephone encounter Note If she is being treated, await culture results [facility] Work Phone: 02-18-2025 Telephone encounter Note 20w0d See below. Urine culture pending. Macrobid was given. No openings today or Friday at this time. Urgent Care provider routed chart to DM with a message to review. Please review and advise. Elena Rivas RN [facility] 02-18-2025 Telephone encounter Note Patient was seen in on 02/17, patient sent MyChart request for follow up with OB between 02/18-02/21. Experiencing side cramps and poss UTI symptom. Please call patient to see alternative appointments. TY! [facility] 02-17-2025 Note HNO ID: [id number] Author: ESHA PORTER APRN.ART PROFESSOR Service: ? Author Type: Nurse Practitioner Type: Progress Notes Filed: 02/17/2025 10:41 Note Text: [facility] Barbara Schwab is a 24 year old [...] Urine sent for culture. - Will message ROOFING CONTRACTOR (Dr. Edwards) with high-importance update regarding UTI and current management. - Advised patient to follow any additional instructions from ROOFING CONTRACTOR if contacted. and Recording using Kannact software for draft documentation of the visit was discussed with the patient/authorized career services representative; all questions welcomed and answered. Patient/authorized career services representative agreed to proceed MDM Procedures [facility] 02-17-2025 History of Presen t illness Narrative [facility] Jimenez Jodie Schwab is a 24 year old [...] Urine sent for culture. - Will message ROOFING CONTRACTOR (Dr. Edwards) with high-importance update regarding UTI and current management. - Advised patient to follow any additional instructions from ROOFING CONTRACTOR if contacted. and Recording using Kannact software for draft documentation of the visit was discussed with the patient/authorized career services representative; all questions welcomed and answered. Patient/authorized career services representative agreed to proceed MDM Procedures documented in this encounter [facility] 01-26-2025 Progress note Formatting of t his [...] (HCC) Continue ASA Hx of delivery, currently ([facility]) CL length and early anatomy today Continue with CL Family history of Russel's disease 16 weeks gestation of ([facility]) Anatomy us scheduled RTO 4 wks New OB labs completed Antonieta Stoll MD [facility] 01-26-2025 Miscellaneous Notes DM-Pt doing well. Denies [...] today Continue with CL Family history of [place]'s disease 16 weeks gestation of ([facility]) Anatomy us scheduled RTO 4 wks New OB labs completed Antonieta Stoll MD documented in this encounter [facility] 01-26-2025 Instructions Apolonia Woodard MA - 01/26/2025 10:56 AM EDT SEQUENTIAL SCREENINGS The [facility] offers sequential screenings for women who are [...] It will require an appointment with our install technician. This is not an ultrasound performed [...] the above symptoms, contact our office at [phone] and ask to speak with a nurse. After hours, you can call doctors registry at [phone] OR call [facility] at [phone] and ask to have the doctor bonderizer paged. If you consider this an emergency, dial 6--2 or go to your nearest emergency department. NEED HELP? Are you dealing with a violent or abusive relationship? Are you a victim of rape or sexual assult? Call [facility] ([place]) 24 hour Crisis Hotline: 124.450.2766 or 525-850-2296. MANUAL Your Guide to a Healthy manual is now on-line. Visit [email or web address] [email or web address] to download your free copy SEQUENTIAL SCREENINGS The [facility] offers sequential screenings for women who are [...] It will require an appointment with our install technician. This is not an ultrasound performed [...] the above symptoms, contact our office at [phone] and ask to speak with a nurse. After hours, you can call doctors registry at [phone] OR call [facility] at [phone] and ask to have the doctor bonderizer paged. If you consider this an emergency, dial 7-9-5 or go to your nearest emergency department. NEED HELP? Are you dealing with a violent or abusive relationship? Are you a victim of rape or sexual assult? Call [facility] ([place]) 24 hour Crisis Hotline: 413.465.5074 or 113-587-5896. MANUAL Your Guide to a Healthy manual is now on-line. Visit [email or web address] ancyGuide to download your free copy documented in this encounter [facility] 12-28-2024 Progress note Formatting of t his note might be different from the original. KJ - S: Ching denies LOF, contractions or vaginal bleeding. O: 12w4d, see flow sheet SENSITIVE EXAM: Sensitive exam not performed. A/P: Assessment & Plan Family history of Russel's disease MFM consult with today. 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 The availability of genetic counseling and testing was reviewed and is desired by the patient. Genetic counseling was ordered. Supervision of high risk , antepartum (HCC) Hx of delivery, currently (HCC) Biweekly cervical lengths starting at 16 weeks. Kamilla Porter MD [facility] 12-28-2024 Miscellaneous Notes KJ - S: Ching denies LOF, contractions or vaginal bleeding. O: 12w4d, see flow sheet SENSITIVE EXAM: Sensitive exam not performed. A/P: Assessment & Plan Family history of Russel's disease MFM consult with today. 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 The availability of genetic counseling and testing was reviewed and is desired by the patient. Genetic counseling was ordered. Supervision of high risk , antepartum (HCC) Hx of delivery, currently (HCC) Biweekly cervical lengths starting at 16 weeks. Kamilla Porter MD documented in this encounter [facility] 12-28-2024 Instructions Apolonia Woodard MA - 12/28/2024 10:07 AM EDT SEQUENTIAL SCREENINGS The [facility] offers sequential screenings for women who are [...] It will require an appointment with our install technician. This is not an ultrasound performed [...] the above symptoms, contact our office at [phone] and ask to speak with a nurse. After hours, you can call doctors registry at [phone] OR call [facility] at [phone] and ask to have the doctor bonderizer paged. If you consider this an emergency, dial 9-1- or go to your nearest emergency department. NEED HELP? Are you dealing with a violent or abusive relationship? Are you a victim of rape or sexual assult? Call [facility] ([place]) 24 hour Crisis Hotline: 948.569.6088 or 139-451-7986. MANUAL Your Guide to a Healthy manual is now on-line. Visit [email or web address] [email or web address] to download your free copy documented in this encounter [facility] 12-28-2024 History of Presen t illness Narrative [...] genital HSV, and a family history of [place]'s disease (maternal grandmother; patient and her mother [...] Take 1 tablet by mouth as needed. Jwevkrcn-Bs-Mel-Fe-FA tab Take 1 tablet by mouth once [...] IMPRESSION: - Single, live, intrauterine . - [place] rump length measurement is consistent with the [...] - stable on SSRI Family history of [place]'s disease History of genital HSV Plan: During [...] follow-up with a therapist/psychiatrist (community-based, not at [facility]). Availability of psychiatry resources at [facility] was reviewed. Risks/benefits of antidepressants (SSRI) were [...] the implications of her family history of [place]'s disease. We reviewed that [place]'s disease is an inherited progressive neurodegenerative disorder characterized by choreiform movements, psychiatric problems, and dementia. We reviewed that [place]'s disease is inherited in an autosomal dominant [...] which included preparing to see the patient, [id number] patient care, completing clinical documentation, obtaining and/or reviewing separately obtained history, performing a medically appropriate examination, counseling and educating the patient/family/caregiver, ordering medications, tests, or procedures, communicating results to the patient/family/caregiver, and care coordination (not separately reported). documented in this encounter [facility] 12-28-2024 Note HNO ID: [id number] Author: SCOTT ALCAZAR MD Service: ? Author [...] genital HSV, and a family history of Russel's disease (maternal grandmother; patient and her mother [...] Procedure Laterality Date SALPINGECTOMY Right 04/01/2024 laparoscopic, [facility] for ectopic Family History Problem Relation Age of Onset Hypertension Mother other (insomnia) Mother other (fibromyalgia) Mother other (IBS) Mother Heart Attack Father Depression Sister No Known Problems Brother Diabetes Maternal Grandmother Hypertension Maternal Grandmother other (Battle Creek's Disease) Maternal Grandmother Cancer Maternal Grandfather Lung Hypertension Maternal Grandfather Alcohol/Drug Paternal Grandmother Alcohol/Drug Paternal Grandfather other (acid reflux) Son Current Outpatient Medications Medication Sig Dispense Refill aspirin, enteric coated (ECOTRIN LOW STRENGTH) 81 mg EC tablet Take 1 tablet by mouth once daily. 90 tablet 3 valACYclovir (VALTREX) 1 gram tablet Take 1 tablet by mouth as needed. Ojcemrha-Pe-Rkt-Fe-FA tab Take 1 tablet by mouth once [...] joint pain, kaye (more content not included)... [facility] 12-14-2024 Telephone encounter Note Appointment scheduled with MFM. Patient informed [facility] 12-14-2024 Miscellaneous Notes Appointment scheduled with MFM. Patient informed Marcia, Please see note below [...] that regular see OB pt. Paola Hill APRN.CNP Patient is scheduled for nuchal ultrasound on 12/28. This is MFM day . Do you want MFM referral for history of labor? Notes from 11/30 visit. Under plan notes :History of . Will order MFM consult for further discussion. Please order MFM consult if you want one done documented in this encounter [facility] 12-14-2024 Telephone encounter Note Marcia, Please see note below and Paola's response: Patient saw Paola Hill 11/30/2024 and in her notes it states Will order MFM consult for further discussion. History of . 1st delivery at 28w6d, 2nd delivery of twins ar 32 weeks. Please order MFM consult if you want one done . No appointments prior to that date [facility] 12-14-2024 Telephone encounter Note Ask one of the providers that regular see OB pt. Paola Hill APRN.CNP [facility] 12-14-2024 Telephone encounter Note Patient is scheduled for nuchal ultrasound on 12/28. This is MFM day . Do you want MFM referral for history of labor? Notes from 11/30 visit. Under plan notes :History of . Will order MFM consult for further discussion. Please order MFM consult if you want one done [facility] 12-02-2024 Telephone encounter Note 1st risk assessment form submitted 12/02/24 Donaldo Desai RN [facility] 12-02-2024 Miscellaneous Notes 1st risk assessment form submitted 12/02/24 Donaldo Desai RN documented in this encounter [facility] 11-30-2024 Note HNO ID: [id number] Author: PAOLA HILL APRN.ART PROFESSOR Service: ? Author Type: Nurse Practitioner Type: Progress Notes Filed: 11/30/2024 09:01 Note Text: Patient declined cat cracker operator. INITIAL OB ASSESSMENT HPI: Ching is a [...] harming myself has occurred to me. Never [place] Depression Scale Total 6 Feeling nervous, anxious [...] syndrome) PAST SURG (more content not included)... [facility] 11-30-2024 History of Presen t illness Narrative Patient declined cat cracker operator. INITIAL OB ASSESSMENT HPI: Ching is a [...] harming myself has occurred to me. Never [place] Depression Scale Total 6 Feeling nervous, anxious [...] Current Outpatient Medications Medication Sig Dispense Refill Ulzbxphm-Jt-Qfn-Fe-FA tab Take 1 tablet by mouth once [...] discussed with the Patient or Patient's Authorized Mattress Packer. As applicable, any other physician, advance practice provider, medical student, or other health professional student that will be observing or involved in the sensitive examination for educational or training purposes was discussed with the Patient or Authorized Mattress Packer. The Patient or Authorized Mattress Packer has agreed to proceed with the sensitive examination. (Sensitive examination includes inspection and/or palpation of the breasts, pelvis, prostate and anorectal regions). PHYSICAL EXAM: BP 98/60 Ht 5' 6 (1.68m) Wt 102 lb 9.6 oz (46.5kg) [...] +cardiac activity, CRL consistent with LMP. Paola Hill, HOME HEALTH ASSISTANT.ART PROFESSOR ASSESSMENT: 24 year old at 11w3d wks gestational age PLAN: 1) Patient oriented to practice. Patient given new OB orientation folder. Discussed nutrition, folic acid supplementation, dietary guidelines, exercise, smoking, alcohol, caffeine, and drug use. Discussed gestational weight gain guidelines. Discussed routine OB labs including STD/HIV. Discussed how to access Your guide to a health and the Tile Power Shear Operator. Reviewed midwifery and manager patient services that are available. 2) Screening: Hemoglobin [...] 4 weeks or sooner prn. Paola Hill APRN.MATTHEW documented in this encounter [facility] 11-30-2024 Instructions Adwoa Conrad LPN - 11/30/2024 7:57 AM EDT Please select the following link to access the [facility] Your Guide to a Healthy . [email or web address] documented in this encounter [facility] 11-25-2024 Telephone encounter Note Called the patient using phone number listed in chart. Patient answered but did not have time to go over the questions today. Patient asked if she could call the office back. Patient is to call 11/26/2024. Miriam Flores MA [facility] 11-25-2024 Miscellaneous Notes Called the patient using phone number listed in chart. Patient answered but did not have time to go over the questions today. Patient asked if she could call the office back. Patient is to call 11/26/2024. Miriam Flores MA documented in this encounter [facility] 11-24-2024 Note HNO ID: [id number] Author: YOSI PAYNE APRN.ART PROFESSOR Service: ? Author Type: Nurse Practitioner Type: [...] of care. This note was generated using 4INFO software. It may contain errors in wording, punctuation, or spelling. Yosi Payne APRN.ART PROFESSOR History and Record Review Clinical information obtained from an independent historian. History obtained from or confirmed by: parent. External record(s) reviewed: prior outpatient record. Disposition The patient was discharged. OTC Medications were advised: Procedures [facility] 11-14-2024 Note HNO ID: [id number] Author: ANN MARIE ARIZA APRN.ART PROFESSOR Service: ? Author Type: Nurse Practitioner Type: [...] advised tylenol/stretching - She was seen in [facility] on 11.11.2024 with normal labs, negative [...] have confirmed and edited as necessary, the [facility] Review of Systems Constitutional: Negative for chills and fever. Musculoskeletal: Positive for back pain (right flank pain). Negative for joint pain and myalgias. Skin: Negative for itching and rash. All other systems reviewed and are negative. Objective Physical Exam History and Record Review External record(s) reviewed: prior labs/imaging and prior outpatient record. Findings from review of outpatient records: [place] ED on 11.11.2024 - negative for uti, labs normal Findings from review of prior labs/imaging: Previous Renal Function Panel Reviewed No results within last 365 days. Differential Diagnoses - musculoskeletal Recording using Kannact software for draft documentation of the visit was discussed with the patient/authorized career services representative; all questions welcomed and answered. Patient/authorized career services representative agreed to proceed ASSESSMENT/PLAN: 1. Acute [...] warranting prompt ER evaluation. Ann Marie Ariza APRN.[facility] 11-14-2024 History of Presen t illness Narrative [...] advised tylenol/stretching - She was seen in [place] ED on 11.11.2024 with normal labs, negative [...] have confirmed and edited as necessary, the [facility] Review of Systems Constitutional: Negative for chills and fever. Musculoskeletal: Positive for back pain (right flank pain). Negative for joint pain and myalgias. Skin: Negative for itching and rash. All other systems reviewed and are negative. Objective Physical Exam History and Record Review External record(s) reviewed: prior labs/imaging and prior outpatient record. Findings from review of outpatient records: [place] ED on 11.11.2024 - negative for uti, labs normal Findings from review of prior labs/imaging: Previous Renal Function Panel Reviewed No results within last 365 days. Differential Diagnoses - musculoskeletal Recording using Kannact software for draft documentation of the visit was discussed with the patient/authorized career services representative; all questions welcomed and answered. Patient/authorized career services representative agreed to proceed ASSESSMENT/PLAN: 1. Acute [...] warranting prompt ER evaluation. Ann Marie Ariza APRN.CNP documented in this encounter [facility] 11-11-2024 Discharge summary [facility] 11-11-2024 Radiology Diagnostic study note [facility] Imaging Services [address] [place] [address] Kidney and Bladder MR#: [id number] Acct: [id number] Name: BARBARA SCHWAB Rep #: [id number] : 2000 F 24 From: Miguel Gómez MD PCP: Dr. Melissa Cabezas MD Status: REG ER Study:Kidney and Bladder Date of Exam: 0 11/11/24 Exam# [id number] Ordering Dr: Michele Mar MD PROCEDURE: KIDNEY AND BLADDER 11/11/2024 REASON FOR EXAM: RIGHT FLANK PAIN TECHNIQUE: Bilateral renal ultrasound. COMPARISON: None. FINDINGS: Kidneys: No renal mass is seen [place]: No significant hydronephrosis is seen on either [...] 2. No evidence of hydronephrosis. Reading Location: [place] [address] CC: Dr. Michele Mar MD; Dr. Melissa Cabezas MD ~ Physician Office Clin Asst: Signed [facility] 11-11-2024 Discharge summary Note Date/Time November 11, 2024 4:26pm [facility] Medical Records Department [address] [place] [address] Emergency Department Summary 11/11/24 MR#: [id number] Acct: [id number] Name: BARBARA SCHWAB Rep #:[id number] : 2000 24 From: Michele Mar MD [...] is 6 weeks gestation currently and sees ROOFING CONTRACTOR's at the [facility]. She and her state that an ultrasound [...] no dysuria or hematuria, unrelieved with Tylenol. [facility] Medical History IBS (irritable bowel syndrome) Depression GERD (gastroesophageal reflux disease) Home Medications ?Medication ?Instructions ?Recorded ?Last Taken ?Type Prilosec 1 tab PO PRN ACID REFLUX 05/01/21 06:30 History valacyclovir 1 gram tablet 1,000 mg PO DAILY PRN hsv 0 11/11/20 05/01/21 06:30 History (Valtrex) qpcxlece-dpa-Ww-FA 1 mg 1 tab PO DAILY pregna [...] weeks gestation. She will follow-up with her ROOFING CONTRACTOR. I feel she can be discharged safely [...] 76.4 H Lymph % (Auto) 18.5 L [place] % (Auto) 4.2 Eos % (Auto) 0.1 [...] Clarity Clear Urine pH 6.5 Ur Specific [place] 1.010 Urine Protein Negative Urine Glucose (UA) [...] 2. No evidence of hydronephrosis. Reading Location: [place] [address] Discharge Plan Triage Chief Complaint: Flank Pain [...] improving Activity Restrictions/Additional Instructions: Follow-up with your ROOFING CONTRACTOR at the [facility]. Continue Tylenol as needed for pain. Return with fever, new or worsening symptoms. Print Language: Kinyarwanda Disposition Disposition: Home, Self Care What to do if you have Problems For any increased pain, shortness of breath, bleeding, nausea or vomiting, chestpain, or any unexpected problems, contact your Primary Care Provider. Call [facility] ([phone]) or report to the closest Emergency Room. Call 911 if necessary. 11/11/24 7206 <Electronically signed by Michele Mar MD> Cosigner Signature (if applicable): CC: Dr. Melissa Cabezas MD ~ Signed [facility] Work Phone: 1(475) 839-817505-07-2025 NoteHNO ID: [id number] Author: BOBBI HOWARD MD Service: ? 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 Encounter Diagnosis ICD-10-CM 1. History of ectopic Z87.59 2. Encounter for test, result positive (HCC) Z32.01 Please see report under imaging tab. Bobbi Howard MD November 10, 2024 8:54 [facility]05-07-2025 History of Present illness Narrative * Bobbi Howard MD - 11/10/2024 8:54 AM EDT Barbara Schwab is a 24 year old female who presented for mechanical field engineer ultrasound today. Encounter Diagnosis ICD-10-CM 1. History of ectopic Z87.59 2. Encounter for test, result positive (HCC) Z32.01 Please see report under imaging tab. Bobbi Howard MD November 10, 2024 8:54 AM documented in this encounterPromedica Defiance [facility]05-05-2025 History of Present illness Narrative* Rissa WilsonnathanMACIEL.ART PROFESSOR - 11/08/2024 9:30 AM EDT [facility] [...] ALLERGIES Adhesive Tape (Rosins) and Latex MEDICATIONS Bcutkvls-Wn-Zlt-Fe-FA tab Take 1 tablet by mouth once [...] Diabetes Maternal Grandmother Hypertension Maternal Grandmother other ([place]'s Disease) Maternal Grandmother Cancer Maternal Grandfather Lung [...] were advised: Tylenol Procedures documented in this encounterPromedica Defiance Regional Hospital05-05-2025 NoteHNO ID: [id number] Author: ALLEN WILSON APRN.MATTHEW Service: ? Author [...] SALPINGECTOMY Right 04/01/2024 laparoscopic, [facility] for ectopic ALLERGIES Adhesive Tape (Rosins) and Latex MEDICATIONS Wwoktubq-Uq-Nwl-Fe-FA tab Take 1 tablet by mouth once [...] Diabetes Maternal Grandmother Hypertension Maternal Grandmother other ([place]'s Disease) Maternal Grandmother Cancer Maternal Grandfather Lung [...] f/u for red flag symptoms Allen Wilson APRN.ART PROFESSOR History and Record Review External record(s) reviewed: prior outpatient record. Disposition The patient was discharged. OTC Medications were advised: Tylenol ProceduresMercy Health Urbana Hospital04-21-2025 NoteHNO ID: [id number] Author: MARCIA FARRELL APRN.LAUREN Service: ? Author Type: Surgical Coder Type: Progress Notes Filed: 10/25/2024 08:35 Note Text: Barbara Schwab is a 24 year old female who presents for problem visit of missed period. Patient reports LMP was 10/01/24. She has been feeling nauseated and took test this past weekend which was faintly positive. Here today for confirmation. 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 Line Ordering Clinician History LMP: 10/11/2024 (Exact Date), Having periods Age at Menarche: Age at First : Age at Menopause: Line Ordering Clinician History Comments: Sexual Activity: Yes; Male Contraception: No contraception data on record PAST MEDICAL HISTORY Diagnosis Date Anemia during in second trimester (HCC) 05/18/2019 Depression GERD (gastroesophageal reflux disease) H/O seasonal allergies Herpes simplex virus (HSV) infection IBS (irritable bowel syndrome) PAST SURGICAL HISTORY Procedure Laterality Date NONE SALPINGECTOMY Right 04/01/2024 laparoscopic, [facility] for ectopic FAMILY HISTORY Problem Relation [...] (Patient not taking: Reported on 10/14/2024) PNV Comb.Ri66-Gara,Carbonyl-FA 29 mg iron- 1 mg tab Take [...] (Patient not taking: Reported on 07/09/2023) vit 32-bhlk-yvvkw-dha (PRENATE MINI, FERR ASP GLYCIN,) 18-1-350 mg [...] NOB or sooner if needed Marcia Farrell APRN.[facility]04-21-2025 History of Present illness Narrative* Marcia Farrell APRN.[facility] - 10/25/2024 8:11 AM EDT Barbara Schwab is a 24 year old female who presents for problem visit of missed period. Patientreports LMP was 10/01/24. She has been feeling nauseated and took test this past weekendwhich was faintly positive. Here today for confirmation. 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 Line Ordering Clinician History LMP: 10/11/2024 (Exact Date), Having periods Age at Menarche: Age at First : Age at Menopause: Line Ordering Clinician History Comments: Sexual Activity: Yes; Male Contraception: [...] Diabetes Maternal Grandmother Hypertension Maternal Grandmother other ([place]'s Disease) Maternal Grandmother Cancer Maternal Grandfather Lung [...] (Patient not taking: Reported on 10/14/2024) PNV Comb.Qu07-Mcyz,Carbonyl-FA 29 mg iron- 1 mg tab Take [...] (Patient not taking: Reported on 07/09/2023) vit 33-gybt-ckgyi-dha (PRENATE MINI, FERR ASP GLYCIN,) 18-1-350 mg [...] needed Marcia Farrell APRN.CNM documented in this encounterPromedica Defiance [facility] Hospital04-10-2025 QperXSZA-HLB-0 (AGENT OF COVID-19) RNA: Not detected INFLUENZA A RNA: Not detected INFLUENZA B RNA: Not detected RESPIRATORY SYNCYTIAL VIRUS (RSV) RNA: Not detectedMercy Health Urbana HospitalComment on above:Performed By: #### [id number]- 1 ####[facility] LABCLIA [id number] [address]04-10-2025 Instructions* Patient Instructions* Nilda Castellanos APRN.CNP - 10/14/2024 9:06 AM EDT Nausea vomiting [...] can make nausea worse. documented in this encounterPromedica Defiance [facility] Hospital04-10-2025 NoteHNO ID: [id number] Author: NILDA CASTELLANOS APRN.ART PROFESSOR Service: ? Author Type: Nurse Practitioner Type: Progress Notes Filed: 10/14/2024 09:21 Note Text: [facility] Subjective Barbara Schwab is a 24 year old adult. Patient presents with: Diarrhea: Vomiting, stomach pain x 4 days 24 year old adult with PMH GERD, IBS, depression, and anxiety presents for illness Acute onset 4 days ago Lower abdominal pain [place] like punched in stomach + emesis x [...] history is provided by the patient. No sign language teacher was used. Vomiting This is a [...] SALPINGECTOMY Right 04/01/2024 laparoscopic, [facility] for ectopic ALLERGIES Adhesive Tape (Rosins) and Latex MEDICATIONS busPIRone (BUSPAR) 10 mg tablet Take 10 mg by mouth three times a day. escitalopram oxalate (LEXAPRO) 10 mg tablet Take 10 mg by mouth once daily. PNV Comb.Df28-Isnj,Carbonyl-FA 29 mg iron- 1 mg tab Take [...] (Patient not taking: Reported on 07/09/2023) vit 22-uhaq-yueuw-dha (PRENATE MINI, FERR ASP GLYCIN,) 18-1-350 mg cap Take 1 Dose by mouth once daily. (Patient not taking: Reported on 09/20/2023) FAMILY HISTORY Problem Relation Age of Onset Hypertension Mother other (insomnia) Mother other (fibromyalgia) Mother other (IBS) Mother Heart Attack Father Depression Sister No Known Problems Brother Diabetes Maternal Grandmother Hypertension Maternal Grandmother other ([place]'s Disease) Maternal Grandmother Cancer Maternal Grandfather Lung [...] nursing note reviewed. Constitu (more content not included)...[facility]04-10-2025 History of Present illness Narrative* Nilda Castellanos, MACIEL.ART PROFESSOR - 10/14/2024 9:01 AM EDT [facility] Subjective Barbara Schwab is a 24 year old adult. Patient presents with: Diarrhea: Vomiting, stomach pain x 4 days 24 year old adult with PMH GERD, IBS, depression, and anxiety presents for illness Acute onset 4 days ago Lower abdominal pain [place] like punched in stomach + emesis x [...] history is provided by the patient. No sign language teacher was used. Vomiting This is a [...] 10 mg by mouth once daily. PNV Comb.Fn94-Zrfn,Carbonyl-FA 29 mg iron- 1 mg tab Take [...] (Patient not taking: Reported on 07/09/2023) vit 37-hhth-xnaxq-dha (PRENATE MINI, FERR ASP GLYCIN,) 18-1-350 mg cap Take 1 Dose by mouth once daily. (Patient not taking: Reported on 09/20/2023) FAMILY HISTORY Problem Relation Age of Onset Hypertension Mother other (insomnia) Mother other (fibromyalgia) Mother other (IBS) Mother Heart Attack Father Depression Sister No Known Problems Brother Diabetes Maternal Grandmother Hypertension Maternal Grandmother other ([place]'s Disease) Maternal Grandmother Cancer Maternal Grandfather Lung [...] sooner if worsening of symptoms Nilda Castellanos APRN.ART PROFESSOR History and Record Review External record(s) reviewed: [...] patient was discharged. Procedures documented in this encounterPromedica Defiance [facility] Hospital02-18-2025 EqtqJJJN-MSY-2 (AGENT OF COVID-19) RNA: Not detected INFLUENZA A RNA: Not detected INFLUENZA B RNA: Not detected RESPIRATORY SYNCYTIAL VIRUS (RSV) RNA: Not detectedMercy Health Urbana HospitalComment on above:Performed By: #### [id number]- 1 ####[facility] LABCLIA [id number] [address]02-18-2025 NoteHNO ID: [id number] Author: NILDA CASTELLANOS APRN.ART PROFESSOR Service: ? Author Type: Nurse Practitioner Type: [...] history is provided by the patient. No sign language teacher was used. SHARLENE Flower complains of [...] Laterality Date NONE SALPINGECTOMY Right 04/01/2024 laparoscopic, [facility] for ectopic ALLERGIES Adhesive Tape (Rosins) [...] 10 mg by mouth once daily. PNV Comb.Cs18-Ecws,Carbonyl-FA 29 mg iron- 1 mg tab Take [...] (Patient not taking: Reported on 07/09/2023) vit 22-adcd-tpvbw-dha (PRENATE MINI, FERR ASP GLYCIN,) 18-1-350 mg cap Take 1 Dose by mouth once daily. (Patient not taking: Reported on 09/20/2023) FAMILY HISTORY Problem Relation Age of Onset Hypertension Mother other (insomnia) Mother other (fibromyalgia) Mother other (IBS) Mother Heart Attack Father Depression Sister No Known Problems Brother Diabetes Maternal Grandmother Hypertension Maternal Grandmother other ([place]'s Disease) Maternal Grandmother Cancer Maternal Grandfather Lung [...] asymmetry. Hematological: Positive f (more content not included)...[facility]02-18-2025 History of Present illness Narrative* Nilda Castellanos APRN.[facility] - 08/24/2024 11:05 AM EST This note [...] history is provided by the patient. No sign language teacher was used. SHARLENE Simthe complains of cough. There is no chest [...] 10 mg by mouth once daily. PNV Comb.Qz92-Mytm,Carbonyl-FA 29 mg iron- 1 mg tab Take [...] (Patient not taking: Reported on 07/09/2023) vit 20-okvv-fepvu-dha (PRENATE MINI, FERR ASP GLYCIN,) 18-1-350 mg cap Take 1 Dose by mouth once daily. (Patient not taking: Reported on 09/20/2023) FAMILY HISTORY Problem Relation Age of Onset Hypertension Mother other (insomnia) Mother other (fibromyalgia) Mother other (IBS) Mother Heart Attack Father Depression Sister No Known Problems Brother Diabetes Maternal Grandmother Hypertension Maternal Grandmother other ([place]'s Disease) Maternal Grandmother Cancer Maternal Grandfather Lung [...] care with fluids and rest Nilda Castellanos APRN.ART PROFESSOR documented in this encounterPromedica Defiance [facility] Hospital02-12-2025 History of Present illness Narrative* Marcia Farrell [...] She reports at one point she passed quite a large clot that was concerning. Here today for test. 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 Line Ordering Clinician History LMP: 08/13/2024 (Exact Date), Having periods Age at Menarche: Age at First : Age at Menopause: Line Ordering Clinician History Comments: Sexual Activity: Yes; Male Contraception: [...] 1 tablet by mouth once daily. PNV Comb.Yl61-Noja,Carbonyl-FA 29 mg iron- 1 mg tab Take [...] (Patient not taking: Reported on 07/09/2023) vit 00-hrbd-uqhhg-dha (PRENATE MINI, FERR ASP GLYCIN,) 18-1-350 mg [...] - RTO as needed/ yearly exams Marcia Frarell APRN.CNM documented in this encounterPromedica Defiance Regional Hospital02-12-2025 NoteHNO ID: [id number] Author: MARCIA FARRELL APRN.CNM Service: ? Author Type: Surgical Coder Type: Progress Notes Filed: 08/19/2024 07:37 Note [...] She reports at one point she passed quite a large clot that was concerning. Here today for test. 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 Line Ordering Clinician History LMP: 08/13/2024 (Exact Date), Having periods Age at Menarche: Age at First : Age at Menopause: Line Ordering Clinician History Comments: Sexual Activity: Yes; Male Contraception: No contraception data on record PAST MEDICAL HISTORY Diagnosis Date Anemia during in second trimester 05/18/2019 Depression GERD (gastroesophageal reflux disease) H/O seasonal allergies Herpes simplex virus (HSV) infection IBS (irritable bowel syndrome) PAST SURGICAL HISTORY Procedure Laterality Date NONE SALPINGECTOMY Right 04/01/2024 laparoscopic, [facility] for ectopic FAMILY HISTORY Problem Relation Age [...] 1 tablet by mouth once daily. PNV Comb.Zy25-Yych,Carbonyl-FA 29 mg iron- 1 mg tab Take [...] (Patient not taking: Reported on 07/09/2023) vit 61-sqfh-kgtjm-dha (PRENATE MINI, FERR ASP GLYCIN,) 18-1-350 mg [...] RTO as needed/ yearly exams Marcia Farrell APRN.[facility]09-27-2024 Telephone encounter Note* Telephone Encounter - Elena Rivas RN - 04/02/2024 9:46 AM EDT cancelled [facility]09-27-2024 Miscellaneous Notes* Telephone Encounter - Elena Rivas RN - 04/02/2024 9:46 AM EDT cancelled documented in this encounterPromedica Defiance Regional Hospital09-26-2024 History of Present illness Narrative* Elena Robertson MD - 04/01/2024 9:29 AM EDT Sign Artist offered: Patient declines. Barbara Schwab is a 23 year old female who presents for problem visit bleeding and for 2 days. HPI: HCG not rising correctly. Started having bleeding and pain yesterday. Nothing in the uterus onbedside US. Fluid in the pelvis. Going to ED for Formal US and possible treatment. 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 Line Ordering Clinician History LMP: 02/15/2024 (Approximate), Having periods Age at Menarche: Age at First : Age at Menopause: Line Ordering Clinician History Comments: Sexual Activity: Yes; Male Contraception: [...] Diabetes Maternal Grandmother Hypertension Maternal Grandmother other ([place]'s Disease) Maternal Grandmother Cancer Maternal Grandfather Lung [...] times a day for 7 days. PNV Comb.Bc34-Glqb,Carbonyl-FA 29 mg iron- 1 mg tab Take [...] (Patient not taking: Reported on 07/09/2023) vit 28-dcbw-ktxuq-dha (PRENATE MINI, FERR ASP GLYCIN,) 18-1-350 mg [...] discussed with the Patient or Patient's Authorized Mattress Packer. As applicable, any other physician, advance practice provider, medical student, or other health professional student that will be observing or involved in the sensitive examination for educational or training purposes was discussed with the Patient or Authorized Mattress Packer. 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 Barbara Schwab is a 23 year old female who presents for problem visit of vaginal spotting, +hpt HPI: LMP 02/15/24. 5w1d gestational age Reports cycles 28-30 days lasting 5- 6 days. Missed period this month and took HPT which was positive. was desired. Started spotting off and on for the past month. Cramping on and off but nothing severe. Recent intercourse yesterday. History of DI/DI twins at 32 weeks gestation / placental abruption in 2020 2018- 28.6 weeks gestation 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 Line Ordering Clinician History LMP: 02/15/2024 (Approximate), Having periods Age at Menarche: Age at First : Age at Menopause: Line Ordering Clinician History Comments: Sexual Activity: Yes; Male Contraception: [...] discussed with the Patient or Patient's Authorized Mattress Packer. As applicable, any other physician, advance practice provider, medical student, or other health professional student that will be observing or involved in the sensitive examination for educational or training purposes was discussed with the Patient or Authorized Mattress Packer. The Patient or Authorized Mattress Packer has agreed to proceed with the sensitive [...] external genitalia normal, normal Bartholin's glands, urethra, [place]'s glands, no vulvar lesions, no cervical lesions, [...] provided Marcia Farrell APRN.CNM documented in this encounterPromedica Defiance Regional Hospital09-13-2024 History of Present illness Narrative* Kenrick Rico [...] Tech Kenrick Rico DO documented in this encounterPromedica Defiance Regional Hospital09-05-2024 History of Present illness Narrative* Gisela Cedeño [...] (Patient not taking: Reported on 07/09/2023) vit 59-ffzf-nzfmo-dha (PRENATE MINI, FERR ASP GLYCIN,) 18-1-350 mg [...] The patient has normal right wrist strength. Car Bracer: 4/5 Tests Phalen s sign: positive Tinel's [...] The patient has normal left wrist strength. Car Bracer: 4/5 Tests Phalen s sign: positive Tinel's sign (median nerve): positive Leann's test: negative Other Erythema: absent Sensation: normal Pulse: present Imaging: Last XR Hand/Finger - Impression Only XR HAND GENERAL 3V PA/LAT/OBL RT Exam End: 09/20/2019 10:25 AM (Final result) Impression: IMPRESSION: Normal radiographs of the right hand and forearm Physician Office Clin Asst: CARROLL Transcribe Date/Time: Sep 20 2019 10:28A [...] Sanjana Pugh D.O. M.P.H. documented in this encounterPromedica Defiance Regional Hospital04-04-2024 History of Present illness Narrative* Apolonia Wilson APRN.[facility] - 10/09/2023 3:55 PM EDT SUBJECTIVE: Barbara [...] ER. The family will take her to [facility] for further eval and treatment of [...] Diabetes Maternal Grandmother Hypertension Maternal Grandmother other ([place]'s Disease) Maternal Grandmother Cancer Maternal Grandfather Lung [...] Reported on 07/09/2023) 21 tablet 0 vit 77-cddx-xiqdz-dha (PRENATE MINI, FERR ASP GLYCIN,) 18-1-350 mg [...] E86.0 Apolonia Wilson APRN.MATTHEW documented in this encounterPromedica Defiance Regional Hospital03-19-2024 Miscellaneous Notes* Telephone Encounter - Rufian Barron LPN - 09/23/2023 8:17 AM EDT [...] care drBib Thank you documented in this encounterPromedica Defiance Regional Hospital03-16-2024 History of Present illness Narrative* Miky Medeiros PA - 09/20/2023 1:47 PM EDT This note was created using NoteWriter. Subjective Barbara Schwab is a 23 year [...] (Patient not taking: Reported on 07/09/2023) vit 52-jtzi-xdkln-dha (PRENATE MINI, FERR ASP GLYCIN,) 18-1-350 mg cap Take 1 Dose by mouth once daily. (Patient not taking: Reported on 09/20/2023) FAMILY HISTORY Problem Relation Age of Onset Hypertension Mother other (insomnia) Mother other (fibromyalgia) Mother other (IBS) Mother Heart Attack Father Depression Sister No Known Problems Brother Diabetes Maternal Grandmother Hypertension Maternal Grandmother other ([place]'s Disease) Maternal Grandmother Cancer Maternal Grandfather Lung [...] appearance. Ching Schwab is not toxic-appearing. HENT: Nose: Nose normal. [...] ER evaluation. CRESCENCIO Viveros documented in this encounterPromedica Defiance Regional Hospital02-16-2024 History of Present illness Narrative* Miky Medeiros PA - 08/22/2023 12:43 PM EST Images from the original note were not included. This note was created using Traverse Networksriter. Subjective Barbara Schwab is a 23 year [...] 20 mg by mouth once daily. vit 98-hemp-ebrsx-dha (PRENATE MINI, FERR ASP GLYCIN,) 18-1-350 mg [...] nursing note reviewed. Exam conducted with a cat cracker operator present. Constitutional: General: Ching Schwab is not [...] ER evaluation. CRESCENCIO Viveros documented in this encounterPromedica Defiance Regional Hospital09-19-2023 Miscellaneous Notes* Telephone Encounter - Rufina Barron [...] with primary care provider. documented in this encounterPromedica Defiance Regional Hospital09-16-2023 History of Present illness Narrative* Tasneem Ham [...] 6 hours as needed for nausea/vomiting. vit 83-pvuj-nmlxt-dha (PRENATE MINI, FERR ASP GLYCIN,) 18-1-350 mg [...] Diabetes Maternal Grandmother Hypertension Maternal Grandmother other ([place]'s Disease) Maternal Grandmother Cancer Maternal Grandfather Lung [...] expected course of illness Tasneem Ham APRN.CNP documented in this encounterPromedica Defiance Regional Hospital09-16-2023 Instructions* Patient Instructions* Tasneem Ham APRN.CNP - [...] Discussed expected course of illness Tasneem Ham APRN.[facility] C[facility] PATIENT INFO BLADDER INFECTION OVERVIEW Bladder [...] typical for bladder infection You have had resistant bladder infections before You have frequent bladder [...] actually have an infection. documented in this encounterPromedica Defiance Regional Hospital08-10-2023 Miscellaneous Notes* Telephone Encounter - Maria C Savage LPN - 02/13/2023 2:36 PM EDT Pt scheduled on AG schedule. Maria C Savage LPN * Telephone [...] Maria C Savage LPN documented in this encounterPromedica Defiance Regional Hospital08-03-2023 History of Present illness Narrative* Nilda Lopez [...] 06, 2023 4:04 PM documented in this encounterPromedica Defiance Regional Hospital07-31-2023 Miscellaneous Notes* Telephone Encounter - Erik Galicia RN - 02/03/2023 9:00 AM EDT Informed patient and transferred her to schedule * Telephone Encounter - Antonieta Farrell MD - 02/03/2023 8:53 AM EDT Transvaginal ultrasound for radiology ordered. * Telephone Encounter - Erik Galicia RN - 02/03/2023 8:[address] Stanley, Does patient need ultrasound for pelvic pain? She did say she still has a decent amount of pain. No order in Epic. * Telephone Encounter [...] u/s here she is to have at [facility]. Becky Fay RN documented in this encounterPromedica Defiance [facility]07-27-[facility]23 History of Present illness Narrative* Antonieta Farrell MD - 01/30/2023 11:24 AM EDT Sign Artist offered: Patient declines. Barbara Gutierrez is a [...] negative in office. Pt reports rates pain 8/10. Pt offers no other concerns. 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 Line Ordering Clinician History LMP: 12/08/2022 (Exact Date), Having periods Age at Menarche: Age at First : Age at Menopause: Line Ordering Clinician History Comments: Sexual Activity: Yes; Male Contraception: [...] Diabetes Maternal Grandmother Hypertension Maternal Grandmother other ([place]'s Disease) Maternal Grandmother Cancer Maternal Grandfather Lung [...] 6 hours as needed for nausea/vomiting. vit 74-tbwf-petvf-dha (PRENATE MINI, FERR ASP GLYCIN,) 18-1-350 mg [...] external genitalia normal, normal Bartholin's glands, urethra, [place]'s glands, no vulvar lesions, no cervical lesions, [...] Moderate Antonieta Stoll MD documented in this encounterPromedica Defiance [facility]07-27-2023 Miscellaneous Notes* Telephone Encounter - Elena Rivas RN - 01/30/2023 9:42 AM EDT Called patient. Took a +UPT again today. Appointment scheduled for today. Elena Rivas RN documented in this encounterPromedica Defiance [facility]07-13-2023 History of Present illness Narrative* Pricila Vergara, MACIEL.ART PROFESSOR - 01/16/2023 4:37 PM EDT Barbara Gutierrez is a 22 year old female who presents for confirmation. HPI: LMP 12/08/2022. Regular menses. Positive home UPT last 2 days. Here for confirmation. Is not preventing . Taking PNVFA. 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 Line Ordering Clinician History LMP: 08/03/2022 (Exact Date), Having periods Age at Menarche: Age at First : Age at Menopause: Line Ordering Clinician History Comments: Sexual Activity: Yes; Male Contraception: [...] 6 hours as needed for nausea/vomiting. vit 03-fpcr-ruuor-dha (PRENATE MINI, FERR ASP GLYCIN,) 18-1-350 mg [...] results. Follow- up as needed. Pricila Vergara APRN.MATTHEW I spent a total of 20 minutes on the date of the service which included preparing to see the patient, [id number] patient care, completing clinical documentation, obtaining and/or reviewing separately obtained history, performing a medically appropriate examination, counseling and educating the pat ient/family/caregiver, and ordering medications, tests, or procedures. documented in this encounterPromedica Defiance [facility] Hospital06-28-2023 Discharge summary Author Jonathan Rush [facility] January 01, 2023 11:44pm Note Date/Time January 01, 2023 10:3 8pm [facility] Medical Records Department [address] [place] [address] Emergency Department Summary 01/01/23 MR#: [id number] Acct: [id number] Name: BARBARA GUTIERREZ Rep #:[id number] : [...] hsv 11/11/20 [History Last Taken 05/01/21 06:30] nycbikae-ted-Af-FA 1 mg tablet 1 tab PO DAILY [...] % (Auto) 65.6 Lymph % (Auto) 28.3 [place] % (Auto) 4.5 Eos % (Auto) 0.3 [...] Sl. Cloudy Urine pH 6.5 Ur Specific [place] 1.015 Urine Protein 30 H Urine Glucose [...] your Primary Care Provider. Call [facility] ([phone]) or report to the closest Emergency Room. Call 911 if necessary. 01/01/23 [id number] <Electronically signed by Jonathan Rush MD> Cosigner Signature (if applicable): CC: Dr. Melissa Cabezas MD ~ Signed [facility] Work Phone: 1(981) 811-842606-22-2023 Miscellaneous Notes* Telephone Encounter - Rufina Besrom PEREZ - 12/26/2022 12:55 PM EDT Still unable [...] Negative covid and flu documented in this encounterPromedica Defiance [facility] Hospital06-21-2023 History of Present illness Narrative* Nilda Castellanos APRN.ART PROFESSOR - 12/25/2022 4:56 PM EDT This note [...] to work today, citing she works at [employer]. The history is provided by the patient. No sign language teacher was used. Flu Like Symptoms This [...] 20 mg by mouth once daily. vit 05-pjpp-kwncl-dha (PRENATE MINI, FERR ASP GLYCIN,) 18-1-350 mg [...] - COVID WITH FLUA+B, ROUTINE Nilda Castellanos APRN.ART PROFESSOR documented in this encounterPromedica Defiance [facility] Hospital12-30-2022 History of Present illness Narrative* Yosi Payne [...] ALLERGIES Adhesive Tape (Rosins) and Latex MEDICATIONS Pzkopewm-Il-Bfj-Fe-FA tab Take 1 tablet by mouth once [...] on movement. Nose: Congestion present. Mouth/Throat: Lips: [place]. Mouth: Mucous membranes are moist. Pharynx: Oropharynx [...] of care. This note was generated using 4INFO software. It may contain errors in wording, punctuation, or spelling. Yosi Payne APRN.MATTHEW documented in this encounterPromedica Defiance [facility] Hospital11-15-2022 History of Present illness Narrative* Jessica Monte [...] ALLERGIES Adhesive Tape (Rosins) and Latex MEDICATIONS Eyocolev-Gl-Bwd-Fe-FA tab Take 1 tablet by mouth once [...] Diabetes Maternal Grandmother Hypertension Maternal Grandmother other ([place]'s Disease) Maternal Grandmother Cancer Maternal Grandfather Lung [...] 100mg bid x 7 days Jessica Monte APRN.CNP * Jessica Monte APRN.CNP - 05/21/2022 4:50 PM EST Subjective HPI ROS Objective Physical Exam documented in this encounterPromedica Defiance [facility] Hospital08-15-2022 Miscellaneous Notes* Telephone Encounter - Pricila Vergara APRN.CNP - 02/18/2022 8:28 PM EDT Please notify pt - Urine culture was positive for infection and the Macrobid she was prescribed should have been effective to cure it. Pricila Vergara, HOME HEALTH ASSISTANT.ART PROFESSOR documented in this encounterPromedica Defiance [facility] Hospital08-12-2022 Miscellaneous Notes* Telephone Encounter - Elena Rivas RN - 02/15/2022 9:10 AM EDT Patient notified. Reviewed instructions. Offered to schedule 3 month follow-up. Patient will call back to schedule at another time. Elena Rivas RN * Telephone Encounter - Pricila Vergara APRN.MATTHEW - 02/15/2022 6:45 AM EDT Please notify [...] GCC negative. Urine culture pending. Pricila Vergara APRN.MATTHEW documented in this encounterPromedica Defiance [facility] Hospital08-11-2022 History of Present illness Narrative* Pricila Vergara APRN.MATTHEW - 02/14/2022 11:41 AM EDT Barbara Gutierrez [...] L3 SAB0 IAB0 Ectopic0 Multiple1 Live Births3 Line Ordering Clinician History LMP: 12/17/2021, Having periods Age at Menarche: Age at First : Age at Menopause: Line Ordering Clinician History Comments: Sexual Activity: Yes; Male Contraception: [...] Diabetes Maternal Grandmother Hypertension Maternal Grandmother other ([place]'s Disease) Maternal Grandmother Cancer Maternal Grandfather Lung Hypertension Maternal Grandfather Alcohol/Drug Paternal Grandmother Alcohol/Drug Paternal Grandfather other (acid reflux) Son Social History Tobacco Use Smoking status: Former Years: 0.50 Types: Cigarettes Quit date: 01/03/2019 Years since quittin.1 Smokeless tobacco: Former Types: Chew Quit date: 01/31/2019 Substance Use Topics Alcohol use: Never Drug use: Not Currently Types: Marijuana Current Outpatient Medications Medication Sig Crhdbulu-En-Zos-Fe-FA tab Take 1 tablet by mouth once [...] Level: 4 - Moderate documented in this encounterPromedica Defiance [facility] Hospital06-28-2022 Miscellaneous Notes* Telephone Encounter - Elena Rivas [...] treatment. Marcia Farrell APRN.CNM documented in this encounterPromedica Defiance [facility] Hospital06-24-2022 History of Present illness Narrative* Marcia Farrell [...] L3 SAB0 IAB0 Ectopic0 Multiple1 Live Births3 Line Ordering Clinician History LMP: 12/17/2021, Having periods Age at Menarche: Age at First : Age at Menopause: Line Ordering Clinician History Comments: Sexual Activity: Yes; Male Contraception: [...] Types: Marijuana Current Outpatient Medications Medication Sig Vpvvwswf-Mz-Ten-Fe-FA tab Take 1 tablet by mouth once [...] external genitalia normal, normal Bartholin's glands, urethra, [place]'s glands, no cervical lesions, good vaginal support, [...] Valtrex as prescribed Sharmila Jimenez RN BSN, HOME HEALTH ASSISTANT Student Marcia Farrell APRN.CNM I spent a total of 20 minutes on the date of the service which included preparing to see the patient, bbek-bq-mwpk patient care, completing clinical documentation, obtaining and/or reviewing separately obtained history, performing a medically appropriate examination and counseling and educating the patient/family/caregiver Medical Decision Making documented in this encounterPromedica Defiance [facility] Hospital06-24-2022 Instructions* Patient Instructions* Yosi Payne APRN.CNP - 12/28/2021 1:22 PM EDT R.I.C.E. The general care of your injury includes the following: Resting, Icing, Compressing and Elevating the injured area. Remember this as RICE. REST: Limit the use of the injured [...] pillows when lying down. documented in this encounterPromedica Defiance [facility] Hospital06-24-2022 History of Present illness Narrative* Yosi Payne [...] ALLERGIES Adhesive Tape (Rosins) and Latex MEDICATIONS Fcgmrayw-Nw-Qen-Fe-FA tab Take 1 tablet by mouth once [...] Diabetes Maternal Grandmother Hypertension Maternal Grandmother other ([place]'s Disease) Maternal Grandmother Cancer Maternal Grandfather Lung [...] of care. This note was generated using 4INFO software. It may contain errors in wording, punctuation, or spelling. Yosi Payne APRN.MATTHEW documented in this encounterPromedica Defiance [facility] Hospital06-24-2022 History of Present illness Narrative* Erik Berry [...] 28, 2021 1:02 PM documented in this encounterPromedica Defiance [facility] Hospital06-08-2022 Miscellaneous Notes* Telephone Encounter - Michelle Vergara LPN - 12/12/2021 11:09 AM EDT Patient called requesting a refill of Valtrex that she takes daily and vitamin. Patient does not need refill until Friday documented in this encounterPromedica Defiance [facility] Hospital10-27-2021 History of Past illness Narrative* Problem [...] have advised patient to go to the [place] website and view the video and information. [...] in a 24-hour period. TKRN delivery, delivered 08/06/2019/12/2022 Threatened premature labor in third trimester 08/06/2019 Overview: 06/18/19 - received BMZ at [facility] on 06/14-06/15. FFN was positive on 06/15. - Kamilla Porter MD Anemia during in second trimester 05/0708/06/2019 Overview: 05/18/19-Start iron supplementation. Repeat CBC in 4 weeks. 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 Patient is engaged to the father the [...] of this encounter (statuses as of 12/26/2022) [facility] History of Past illness Narrative* Problem [...] for instruction. TKRN Nausea/vomiting in 11/01/202012/2022 Overview: 1Patient is complaining of nausea in . Denies any vomiting advised patient to call/come in if she is unable to keep any food or fluids down in a 24-hour period. TKRN delivery, delivered 08/06/2019 02/12/2022 Threatened premature labor in third trimester 08/06/2019 Overview: 06/18/19 - received BMZ at [facility] on 06/14-06/15. FFN was positive on 06/15. - Kamilla Porter MD Anemia during in second trimester 05/0708/06/2019 Overview: 05/18/19-Start iron supplementation. Repeat CBC in 4 weeks. 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 Patient is engaged to the father the [...] of this encounter (statuses as of 12/26/2022) [facility] History of Past illness Narrative* Problem [...] 08/06/2019 Overview: 06/18/19 - received BMZ at [facility] on 06/14-06/15. FFN was positive on 06/15. - Kamilla Porter MD Anemia during in second trimester 05/18/2019 08/06/2019 Overview: 05/18/19-Start iron supplementation. Repeat CBC in 4 weeks. Nilda Jean APRN.CNM High risk teen , antepartum 02/04/2019 08/12/2022 Overview: 11/01/2020 Patient is a senior at [employer]. Patient is engaged to the father [...] of this encounter (statuses as of 01/17/2023) [facility] History of Past illness Narrative* Problem [...] 06/18/2008/06/2019 Overview: 06/18/19 - received BMZ at [facility] on 06/14-06/15. FFN was positive on 06/15. - Kamilla Porter MD Anemia during in second trimester 05/18/2019 08/06/2019 Overview: 05/18/19-Start iron supplementation. Repeat CBC in 4 weeks. 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 Patient is engaged to the [...] of this encounter (statuses as of 01/30/2023) [facility] History of Past illness Narrative* Problem [...] 08/06/2019 Overview: 06/18/19 - received BMZ at [facility] on 06/14-06/15. FFN was positive on 06/15. - Kamilla Porter MD Anemia during in second trimester 05/18/2019 08/06/2019 Overview: 05/18/19-Start iron supplementation. Repeat CBC in 4 weeks. Nilda Jean APRN.CNM High risk teen , antepartum 02/04/2019 08/12/2022 Overview: 11/01/2020 Patient is a senior at [employer]. Patient is engaged to the father [...] of this encounter (statuses as of 01/30/2023) [facility] History of Past illness Narrative* Problem [...] have advised patient to go to the [place] website and view the video and information. [...] 08/06/2019 Overview: 06/18/19 - received BMZ at [facility] on 06/14-06/15. FFN was positive on 06/15. - Kamilla Porter MD Anemia during in second trimester 05/18/2019 08/06/2019 Overview: 05/18/19-Start iron supplementation. Repeat CBC in 4 weeks. 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 Patient is engaged to the father the [...] of this encounter (statuses as of 02/03/2023) [facility] History of Past illness Narrative* Problem [...] 06/18/2008/06/2019 Overview: 06/18/19 - received BMZ at [facility] on 06/14-06/15. FFN was positive on 06/15. - Kamilla Porter MD Anemia during in second trimester 05/18/2019 08/06/2019 Overview: 05/18/19-Start iron supplementation. Repeat CBC in 4 weeks. Nilda Jean APRN.CNM High risk teen , antepartum 02/04/2019 08/12/2022 Overview: 11/01/2020 Patient is a senior at [employer]. Patient is engaged to the father [...] of this encounter (statuses as of 02/13/2023) [facility] of Past illness Narrative* Problem [...] have advised patient to go to the [place] website and view the video and information. [...] 08/06/2019 Overview: 06/18/19 - received BMZ at [facility] on 06/14-06/15. FFN was positive on 06/15. - Kamilla Porter MD Anemia during in second trimester 05/18/2019 08/06/2019 Overview: 05/18/19-Start iron supplementation. Repeat CBC in 4 weeks. 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 Patient is engaged to the father the [...] of this encounter (statuses as of 03/22/2023) [facility] History of Past illness Narrative* Problem [...] 08/06/2019 Overview: 06/18/19 - received BMZ at [facility] on 06/14-06/15. FFN was positive on 06/15. - Kamilla Porter MD Anemia during in second trimester 05/18/2019 08/06/2019 Overview: 05/18/19-Start iron supplementation. Repeat CBC in 4 weeks. Nilda Jean APRN.CNM High risk teen , antepartum 02/04/2019 08/12/2022 Overview: 11/01/2020 Patient is a senior at [employer]. Patient is engaged to the father [...] of this encounter (statuses as of 03/26/2023) [facility] of Past illness Narrative* Problem [...] have advised patient to go to the [place] website and view the video and information. [...] 08/06/2019 Overview: 06/18/19 - received BMZ at [facility] on 06/14-06/15. FFN was positive on 06/15. - Kamilla Porter MD Anemia during in second trimester 05/18/2019 08/06/2019 Overview: 05/18/19-Start iron supplementation. Repeat CBC in 4 weeks. Nilda Jean APRN.CNM High risk teen , antepartum 02/04/2019 08/12/2022 Overview: 11/01/2020 Patient is a senior at [employer]. Patient is engaged to the father [...] of this encounter (statuses as of 05/12/2023) [facility] of Past illness Narrative* Problem [...] have advised patient to go to the [place] website and view the video and information. [...] 08/06/2019 Overview: 06/18/19 - received BMZ at [facility] on 06/14-06/15. FFN was positive on 06/15. - Kamilla Porter MD Anemia during in second trimester 05/18/2019 08/06/2019 Overview: 05/18/19-Start iron supplementation. Repeat CBC in 4 weeks. Nilda Jean APRN.CNM High risk teen , antepartum 02/04/2019 08/12/2022 Overview: 11/01/2020 Patient is a senior at [employer]. Patient is engaged to the father [...] of this encounter (statuses as of 08/22/2023) [facility] of Past illness Narrative* Problem [...] have advised patient to go to the [place] website and view the video and information. [...] 08/06/2019 Overview: 06/18/19 - received BMZ at [facility] on 06/14-06/15. FFN was positive on 06/15. - Kamilla Porter MD Anemia during in second trimester 05/18/2019 08/06/2019 Overview: 05/18/19-Start iron supplementation. Repeat CBC in 4 weeks. Nilda Jean APRN.CNM High risk teen , antepartum 02/04/2019 08/12/2022 Overview: 11/01/2020 Patient is a senior at [employer]. Patient is engaged to the [...] of this encounter (statuses as of 09/20/2023) [facility] of Past illness Narrative* Problem [...] 08/06/2019 Overview: 06/18/19 - received BMZ at [facility] on 06/14-06/15. FFN was positive on 06/15. - Kamilla Porter MD Anemia during in second trimester 05/18/2019 08/06/2019 Overview: 05/18/19-Start iron supplementation. Repeat CBC in 4 weeks. 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 Patient is engaged to the father the [...] of this encounter (statuses as of 09/23/2023) [facility] of Past illness Narrative* Problem [...] 06/18/2008/06/2019 Overview: 06/18/19 - received BMZ at [facility] on 06/14-06/15. FFN was positive on 06/15. - Kamilla Porter MD Anemia during in second trimester 05/18/2019 08/06/2019 Overview: 05/18/19-Start iron supplementation. Repeat CBC in 4 weeks. 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 Patient is engaged to the father the [...] of this encounter (statuses as of 10/10/2023) [facility] of Past illness Narrative* Problem Noted Date Resolved Date Dichorionic diamniotic twin in second trimester 02/13/2021 06/03/2021 Threatened premature labor in third trimester 08/06/2019 Overview: 06/18/19 - received BMZ at [facility] on 06/14-06/15. FFN was positive on 06/15. - Kamilla Porter MD Anemia during in second trimester 05/0708/06/2019 Overview: 05/18/19-Start iron supplementation. Repeat CBC in 4 weeks. Nilda Jean APRN.LAUREN Quit smoking 02/04/2019 08/06/2019 Overview: 02/04/2019Pt recently quit smoking end of December. Discussed risks of smoking during and advised pt to continue not smoking.TKRN Patient request for diagnostic testing 9 08/06/2019 Overview: 11/01/2020 . Patient desires nuchal ultrasound. Considering genetic carrier screening testing.Erik Galicia RN documented as of this encounter (statuses as of 12/13/2021) [facility] of Past illness Narrative* Problem Noted Date Resolved Date Dichorionic diamniotic twin in second trimester 02/13/2021 06/03/2021 Threatened premature labor in third trimester 08/06/2019 Overview: 06/18/19 - received BMZ at [facility] on 06/14-06/15. FFN was positive on 06/15. [...] of this encounter (statuses as of 12/28/2021) [facility] of Past illness Narrative* Problem Noted Date Resolved Date Dichorionic diamniotic twin in second trimester 02/13/2021 06/03/2021 Threatened premature labor in third trimester 08/06/2019 Overview: 06/18/19 - received BMZ at [facility] on 06/14-06/15. FFN was positive on 06/15. - Kamilla Porter MD Anemia during in second trimester 05/0708/06/2019 Overview: 05/18/19-Start iron supplementation. Repeat CBC in 4 weeks. Nilda Jean APRN.LAUREN Quit smoking 02/04/2019 08/06/2019 Overview: 02/04/2019Pt recently quit smoking end of December. Discussed risks of smoking during and advised pt to continue not smoking.TKRN Patient request for diagnostic testing 08/06/2019 Overview: 11/01/2020 . Patient desires nuchal ultrasound. Considering genetic carrier screening testing.Erik Galicia RN documented as of this encounter (statuses as of 12/28/2021) [facility] of Past illness Narrative* Problem Noted Date Resolved Date Dichorionic diamniotic twin in second trimester 02/13/2021 06/03/2021 Threatened premature labor in third trimester 08/06/2019 Overview: 06/18/19 - received BMZ at [facility] on 06/14-06/15. FFN was positive on 06/15. [...] of this encounter (statuses as of 01/01/2022) [facility] of Past illness Narrative* Problem Noted Date Resolved Date Dichorionic diamniotic twin in second trimester 02/13/2021 06/03/2021 Threatened premature labor in third trimester 08/06/2019 Overview: 06/18/19 - received BMZ at [facility] on 06/14-06/15. FFN was positive on 06/15. [...] of this encounter (statuses as of 02/14/2022) [facility] of Past illness Narrative* Problem Noted Date Resolved Date Dichorionic diamniotic twin in second trimester 02/13/2021 06/03/2021 Threatened premature labor in third trimester 08/06/2019 Overview: 06/18/19 - received BMZ at [facility] on 06/14-06/15. FFN was positive on 06/15. [...] of this encounter (statuses as of 02/15/2022) [facility] Past illness Narrative* Problem Noted Date Resolved Date Dichorionic diamniotic twin in second trimester 02/13/2021 06/03/2021 Threatened premature labor in third trimester 08/06/2019 Overview: 06/18/19 - received BMZ at [facility] on 06/14-06/15. FFN was positive on 06/15. [...] of this encounter (statuses as of 02/19/2022) [facility] of Past illness Narrative* Problem Noted Date Resolved Date Dichorionic diamniotic twin in second trimester 02/13/2021 06/03/2021 Threatened premature labor in third trimester 08/06/2019 Overview: 06/18/19 - received BMZ at [facility] on 06/14-06/15. FFN was positive on 06/15. - Kamilla Porter MD Anemia during in second trimester 05/0708/06/2019 Overview: 05/18/19-Start iron supplementation. Repeat CBC in 4 weeks. Nilda Jean APRN.CNM Quit smoking 02/04/2019 08/06/2019 Overview: 02/04/2019Pt recently quit smoking end of December. Discussed risks of smoking during and advised pt to continue not smoking.TKRN Patient request for diagnostic testing 08/06/2019 Overview: 11/01/2020 . Patient desires nuchal ultrasound. Considering genetic carrier screening testing.Erik Galicia RN documented as of this encounter (statuses as of 03/15/2022) [facility] of Past illness Narrative* Problem Noted Date Resolved Date Dichorionic diamniotic twin in second trimester 02/13/2021 06/03/2021 Threatened premature labor in third trimester 08/06/2019 Overview: 06/18/19 - received BMZ at [facility] on 06/14-06/15. FFN was positive on 06/15. [...] of this encounter (statuses as of 05/21/2022) [facility] of Past illness Narrative* Problem Noted Date Resolved Date Dichorionic diamniotic twin in second trimester 02/13/2021 06/03/2021 Threatened premature labor in third trimester 08/06/2019 Overview: 06/18/19 - received BMZ at [facility] on 06/14-06/15. FFN was positive on 06/15. [...] of this encounter (statuses as of 07/10/2022) [facility] Acute pain of left knee- Primary Injury of left ankle, initial encounter documented [facility] this [facility] Diagnosis Screening examination for STD (sexually transmitted disease)- Primary Screening examination for venereal disease Folliculitis Other specified disease of hair and hair follicles [facility] Diagnosis Burning with urination- Primary Dysuria Screening examination for STD (sexually transmitted disease) Screening examination for venereal disease documented [facility] Diagnosis Trichimoniasis- Primary Trichomoniasis, unspecified [facility]* Diagnosis Urinary frequency- Primary Burning with urination Dysuria documented in this encounter [facility] note* Diagnosis Pharyngitis, unspecified etiology- Primary documented in this encounter [facility] note* Diagnosis Viral illness- Primary Unspecified viral infection, in conditions classified elsewhere and of unspecified site documented in this encounter [facility] noteNo assessment information availableWTogus [facility] Work Phone: [facility]* Diagnosis Missed menses- Primary Absence of menstruation documented in this encounter [facility] note* Diagnosis Pelvic pain in female- Primary Unspecified symptom associated with female genital organs Irregular menstrual cycle Vaginal bleeding Other specified noninflammatory disorder of vagina [facility] Diagnosis Pelvic pain in female- Primary Unspecified symptom associated with female genital organs documented in this encounter [facility] note* Diagnosis Burning with urination- Primary Dysuria documented in this encounter [facility] note* Diagnosis Pelvic pain in female Unspecified symptom associated with female genital organs documented in this encounter [facility] note* Diagnosis Skin infection- Primary Unspecified local infection of skin and subcutaneous tissue documented in this encounter [facility] note* Diagnosis Headache, unspecified headache type- Primary Dehydration [facility]* Diagnosis Bilateral carpal tunnel syndrome- Primary Carpal tunnel syndrome [facility]* Diagnosis Pain in left hand- Primary Bilateral carpal tunnel syndrome Carpal tunnel syndrome Pain in right hand Paresthesia of skin Disturbance of skin sensation documented in this encounter [facility] note* Diagnosis Vaginal spotting- Primary Other specified noninflammatory disorder of vagina Threatened miscarriage in early Threatened , unspecified as to episode of care Encounter for test, result positive examination or test, positive result Bleeding in early Unspecified hemorrhage in early , unspecified as to episode of care History of delivery documented in this encounter [facility] note* Diagnosis Ruptured right tubal ectopic causing hemoperitoneum- Primary [facility]* Diagnosis Injury of left ankle, initial encounter Acute pain of left knee documented in this encounter [facility] note* Diagnosis Missed menses- Primary Absence of menstruation Patient desires Unspecified procreative management [facility]* Diagnosis URI, acute- Primary Acute upper respiratory infections of unspecified site Nausea Nausea alone Viral illness Unspecified viral infection, in conditions classified elsewhere and of unspecified site [facility]* Diagnosis Nausea vomiting and diarrhea- Primary Diarrhea Generalized abdominal pain Abdominal pain, generalized [facility]* Diagnosis Encounter for test, result positive ([facility])- Primary examination or test, positive result History of ectopic Personal history of other genital system and obstetric disorders documented [facility] this [facility]* Diagnosis Acute midline low back pain without sciatica- Primary documented in this [facility]* Diagnosis History of ectopic Personal history of other genital system and obstetric disorders Encounter for test, result positive ([facility]) examination or test, positive result documented in this encounter [facility]* Diagnosis Acute midline low back pain without sciatica- Primary documented in this [facility]* Diagnosis Supervision of high risk , [...] episode of care documented in this [facility]* Diagnosis History of delivery, currently ([facility])- Primary with history of pre-term labor [facility] this [facility]* Diagnosis Encounter for screening for malformation ([facility])- Primary 8 weeks gestation of ([facility]) state, incidental Family history of Russel's disease- Primary Family history of other neurological diseases Supervision of high risk , antepartum ([facility]) Hx of delivery, currently ([facility]) with history of pre-term labor documented [facility] this [facility]* Diagnosis Family history of Russel's disease- Primary Family history of other neurological diseases Supervision of high risk , antepartum ([facility]) Hx of delivery, currently ([facility]) with history of pre-term labor 12 weeks gestation of ([facility])- Primary state, incidental History of delivery, currently (HCC) with history of pre-term labor [facility] Diagnosis Family history of [place]'s disease- Primary Family history of other neurological [...] PM EDTAssociated Problem(s): Hx of delivery, currently ([facility]) Biweekly cervical lengths starting at 16 weeks. * Assessment & Plan Note - Kamilla Porter MD - 12/28/2024 12:57 PM EDTAssociated Problem(s): Family history of [place]'s disease M consult with today. 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 The availability of genetic counseling and testing was reviewed and is desiredby the patient. Genetic counseling was ordered. documented [facility] this [facility] Diagnosis Family history of [place]'s disease- Primary Family history of other neurological diseases Supervision of high risk , antepartum (HCC) Hx of delivery, currently (HCC) with history of pre-term labor Supervision of high risk , antepartum (HCC)- Primary Hx of delivery, currently (HCC) with history of pre-term labor Family history of [place]'s disease Family history of other neurological diseases 16 weeks gestation of ([facility]) state, incidental * Assessment & Plan Note - Antonieta Farrell MD - 01/26/2025 11:36 AM EDTAssociated Problem(s): Hx of delivery, currently ([facility]) CL length and early anatomy today Continue with CL * Assessment & Plan Note - Antonieta Farrell MD - 01/26/2025 11:33 AM EDTAssociated Problem(s): Family history of Russel's disease [facility] encounter [facility]* Diagnosis Family history of [place]'s disease- Primary Family history of other neurological [...] history of pre-term labor Family history of [place]'s disease Family history of other neurological diseases 16 weeks gestation of ([facility]) state, incidental [facility]* Diagnosis Family history of Russel's disease- Primary Family history of other neurological diseases Supervision of high risk , antepartum ([facility]) Hx of delivery, currently ([facility]) with history of pre-term labor Supervision of high risk , antepartum (HCC)- Primary Hx of delivery, currently ([facility]) with history of pre-term labor Family history of [place]'s disease Family history of other neurological diseases 16 weeks gestation of ([facility]) state, incidental Supervision of high risk , antepartum ([facility])- Primary Hx of delivery, currently ([facility]) with history of pre-term labor Family history of [place]'s disease Family history of other neurological diseases 18 weeks gestation of ([facility]) state, incidental Burning with urination- Primary Dysuria [facility] this [facility]* Diagnosis Family history of Russel's disease- [...] Primary Acute cystitis documented in this encounter [facility]* Diagnosis Family history of Russel's disease- [...] hematuria, site unspecified [facility] Diagnosis Family history of [place]'s disease- Primary Family history of other neurological diseases Supervision of high risk , antepartum ([facility]) Hx of delivery, currently ([facility]) with history of pre-term labor Supervision of high risk , antepartum (HCC)- Primary Hx of delivery, currently ([facility]) with history of pre-term labor Family history of [place]'s disease Family history of other neurological diseases [...] ([facility]) documented in this encounter [facility]* Diagnosis Family history of Russel's disease- [...] history of pre-term labor Family history of [place]'s disease Family history of other neurological diseases [...] ([facility]) documented in this encounter [facility]* Diagnosis Family history of Russel's disease- [...] hematuria Acute cystitis [facility]* Diagnosis Family history of Russel's disease- Primary Family history of other neurological diseases Supervision of high risk , antepartum ([facility]) Hx of delivery, currently ([facility]) with history of pre-term labor Supervision of high risk , antepartum ([facility])- Primary Hx of delivery, currently ([facility]) with history of pre-term labor Family history of [place]'s disease Family history of other neurological diseases [...] [place] state, incidental documented in this [facility]* Diagnosis Family history of Russel's disease- [...] history of pre-term labor Family history of [place]'s disease Family history of other neurological diseases [...] genitourinary tract antepartum documented in this encounter [facility] note* Diagnosis Family history of [place]'s disease- Primary Family history of other neurological diseases Supervision of high risk , antepartum ([facility]) Hx of delivery, currently ([facility]) with history of pre-term labor Supervision of high risk , antepartum ([facility])- Primary Hx of delivery, currently ([facility]) with history of pre-term labor Family history of [place]'s disease Family history of other neurological diseases 16 weeks gestation of ([facility]) state, incidental Supervision of high risk , antepartum ([facility])- Primary Hx of delivery, currently ([facility]) with history of pre-term labor Family history of [place]'s disease Family history of other neurological diseases [...] and parasitic disease documented in this encounter [facility] note* Diagnosis Family history of Russel's disease- Primary Family history of other neurological diseases Supervision of high risk , antepartum ([facility]) Hx of delivery, currently ([facility]) with history of pre-term labor Supervision of high risk , antepartum ([facility])- Primary Hx of delivery, currently ([facility]) with history of pre-term labor Family history of [place]'s disease Family history of other neurological diseases 16 weeks gestation of ([facility]) state, incidental Supervision of high risk , antepartum ([facility])- Primary Hx of delivery, currently ([facility]) with history of pre-term labor Family history of [place]'s disease Family history of other neurological diseases [...] currently (HCC) with history of pre-term labor [facility] Additional Instructions Plenty of fluids and rest. Tylenol and Motrin for pain. The antibiotic Bactrim 1 pill twice a day for the next 5 days starting tomorrow. You have a urinary tract infection. Your other labs were unremarkable. Your test was negative. Follow-up with your doctor if not improving. Return if worse.[facility] Work Phone: Hospital Discharge instructions Additional Instructions Follow-up with your [employer] [facility]OR at the [facility]. Continue Tylenol as needed for pain. Return with fever, new or worsening symptoms.[facility] Work Phone: Reason for referral (narrative)* Diagnostic Procedure Only (Urgent) - Closed Specialty Diagnoses / Procedures Referred By Arielle zuleta Referred To Contact XR IMAGING Diagnoses Acute pain of left knee Procedures XR KNEE GENERAL 4V AP BOTH/PA BOTH/LAT/MERC LEFT RADIOLOGIC EXAM KNEE COMPLETE 4/MORE VIEWS Yosi Payne APRN.ART PROFESSOR [address] [place] [address] Xr Imaging Referral ID Status Reason Start Date Expiration Date V isits Requested Visits Authorized [id number] Closed Auto-Generate d Referral 12/28/2021 01/27/2023 1 1 * Diagnostic Procedure Only (Urgent) - Closed Specialty Diagnoses / Procedures Referred By Contac t Referred To Contact XR IMAGING Diagnoses Injury of left ankle, initial encounter Procedures XR ANKLE GENERAL 3V AP/LAT/OBL LEFT RADEX ANKLE COMPLETE MINIMUM 3 VIEWS Yosi Payne APRN.ART PROFESSOR [address] [place] [address] Xr Imaging Referral ID Status Reason Start Date Expiration Date V isits Requested Visits Authorized [id number] Closed Auto-Generate d Referral 12/28/2021 01/27/2023 1 1 [facility] for referral (narrative)* Diagnostic Procedure Only (Routine) - Authorized Specialty Diagnoses / Procedures Referred By Contac t Referred To Contact US IMAGING Diagnoses Pelvic pain in female Procedures US FEMALE PELVIS TRANSVAG US TRANSVAGINAL Antonieta Farrell MD [address] [place] [address] Us Imaging Referral ID Status Reason Start Date Expiration Date Visits Requested Visits Authorized [id number] Authorized Auto-Generat ed Referral 02/03/2023 03/04/2024 1 1 [facility] for referral (narrative)* Diagnostic Procedure Only (Routine) - Closed Specialty Diagnoses / Procedures Referred By Contac t Referred To Contact US IMAGING Diagnoses Pelvic pain in female Procedures US FEMALE PELVIS TRANSVAG US TRANSVAGINAL Antonieta Farrell MD [address] [place] [address] [place] [address] Referral ID Status Reason Start Date Expiration Date V isits Requested Visits Authorized [id number] Closed Auto-Generate d Referral 02/03/2023 03/04/2024 1 1 [facility] for referral (narrative)* Outpatient Procedure (Routine) - Authorized Specialty Diagnoses / Procedures Referred By Contac t Referred To Contact [facility] Diagnoses Bilateral carpal tunnel syndrome Procedures EMG(NEURO/NI) NERVE CONDUCTION STUDIES 9-10 STUDIES Sanjana Pugh DO [address] [place] [address] [facility] [place] [facility] [address] Monroy [place] [id number] Referral ID Status Reason Start Date Expiration Date Visits Requested Visits Authorized [id number] Authorized Auto-Generat ed Referral 03/11/2024 07/06/2024 1 1 [facility] for referral (narrative)* Diagnostic Procedure Only (Urgent) - Closed Specialty Diagnoses / Procedures Referred By Contac t Referred To Contact XR IMAGING Diagnoses Acute pain of left knee Procedures XR KNEE GENERAL 4V AP BOTH/PA BOTH/LAT/MERC LEFT RADIOLOGIC EXAM KNEE COMPLETE 4/MORE VIEWS Yosi Payne, MAICEL.ART PROFESSOR [address] [place] [address] [place] [address] Referral ID Status Reason Start Date Expiration Date V isits Requested Visits Authorized [id number] Closed Auto-Generate d Referral 12/28/2021 01/27/2023 1 1 * Diagnostic Procedure Only (Urgent) - Closed Specialty Diagnoses / Procedures Referred By Contac t Referred To Contact XR IMAGING Diagnoses Injury of left ankle, initial encounter Procedures XR ANKLE GENERAL 3V AP/LAT/OBL LEFT RADEX ANKLE COMPLETE MINIMUM 3 VIEWS Yosi Payne APRN.ART PROFESSOR [address] [place] [address] [place] [address] Referral ID Status Reason Start Date Expiration Date V isits Requested Visits Authorized [id number] Closed Auto-Generate d Referral 12/28/2021 01/27/2023 1 1 [facility] for referral (narrative)No reason for referral information availableWTogus [facility] Work Phone[facility] N[facility]* Diagnostic Procedure Only (Urgent) - Closed Specialty Diagnoses / Procedures Referred By Contac t Referred To Contact XR IMAGING Diagnoses Acute pain of left knee Procedures XR KNEE GENERAL 4V AP BOTH/PA BOTH/LAT/MERC LEFT RADIOLOGIC EXAM KNEE COMPLETE 4/MORE VIEWS Yosi Payne, MACIEL.ART PROFESSOR [address] [place] [address] [place] [address] Referral ID Status Reason Start Date Expiration Date V isits Requested Visits Authorized [id number] Closed Auto-Generate d Referral 12/28/2021 01/27/2023 1 1 [facility]* Diagnostic Procedure Only (Routine) - Closed Specialty Diagnoses / Procedures Referred By Arielle zuleta Referred To Contact [facility] Diagnoses History of ectopic Encounter for test, result positive (HCC) Procedures OBSTETRIC ULTRASOUND WHI US PREG UTERUS AFTER 1ST TRIMEST GESTATION Reji Ding MD [address] [place] [address] Phone: tel: fax: [facility] [address] [place] [address] Referral ID Status Reason Start Date Expiration Date V isits Requested Visits Authorized [id number] Closed Auto-Generate d Referral 11/01/2024 11/01/2025 1 1 [facility] Summary Purpose Family History No Family History Records FoundNo Family History Records FoundNo Family History Records FoundNo Family History Records Found Advance Directives No Advanced Directives Records FoundDocuments on File Type Date Recorded 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 No November 11, 2024 11:49am Health Concerns Infection Onset Date Last Indicated Resolved Time COVID-19 Rule-Out 12/25/2022 12/25/2022 12/26/2022 3:07 AM EDT Chief Complaint and Reason for Visit Chief Complaint FLANK Chief Complaint headache Chief Complaint Admit Date FLANK November 11, 2024 11:49a m Additional Source Comments INFORMATION SOURCE (unrecogn ized section and content) DATE CREATED AUTHOR 02/02/2020 [facility] DATE CREATED AUTHOR AUTHOR'S ORGANIZ ATION 05/15/2025 [facility] DATE CREATED AUTHOR AUTHOR'S ORGANIZ ATION 05/19/2025 [facility] DATE CREATED AUTHOR AUTHOR'S ORGANIZ ATION 05/19/2025 [facility] Source Comments (unrecognize d section and content) In the event this informatio n is protected by the Federal Confidentiality of Alcohol and Drug Abuse Patient Records regulations: The Federal rules restrict any use of the information to criminally investigate or prosecute any alcohol or drug abuse patient.[facility] the event this information is protected by the Federal Confidentiality of Alcohol and Drug Abuse Patient Records regulations: The Federal rules restrict any use of the information to criminally investigate or prosecute any alcohol or drug abuse patient.[facility] Hospital[facility] the event this information is protected by the Federal Confidentiality of Alcohol and Drug Abuse Patient Records regulations: The Federal rules restrict any use of the information to criminally investigate or prosecute any alcohol or drug abuse patient.[facility] Hospital[facility] the event this information is protected by the Federal Confidentiality of Alcohol and Drug Abuse Patient Records regulations: The Federal rules restrict any use of the information to criminally investigate or prosecute any alcohol or drug abuse patient.[facility] the event this information is protected by the Federal Confidentiality of Alcohol and Drug Abuse Patient Records regulations: The Federal rules restrict any use of the information to criminally investigate or prosecute any alcohol or drug abuse patient.[facility] Hospital[facility] the event this information is protected by the Federal Confidentiality of Alcohol and Drug Abuse Patient Records regulations: The Federal rules restrict any use of the information to criminally investigate or prosecute any alcohol or drug abuse patient.[facility] Hospital[facility] the event this information is protected by the Federal Confidentiality of Alcohol and Drug Abuse Patient Records regulations: The Federal rules restrict any use of the information to criminally investigate or prosecute any alcohol or drug abuse patient.[facility] Hospital[facility] the event this information is protected by the Federal Confidentiality of Alcohol and Drug Abuse Patient Records regulations: The Federal rules restrict any use of the information to criminally investigate or prosecute any alcohol or drug abuse patient.[facility] HospitalIn the event this information is protected by the Federal Confidentiality of Alcohol and Drug Abuse Patient Records regulations: The Federal rules restrict any use of the information to criminally investigate or prosecute any alcohol or drug abuse patient.[facility] HospitalIn the event this information is protected by the Federal Confidentiality of Alcohol and Drug Abuse Patient Records regulations: The Federal rules restrict any use of the information to criminally investigate or prosecute any alcohol or drug abuse patient.[facility] HospitalIn the event this information is protected by the Federal Confidentiality of Alcohol and Drug Abuse Patient Records regulations: The Federal rules restrict any use of the information to criminally investigate or prosecute any alcohol or drug abuse patient.[facility] HospitalIn the event this information is protected by the Federal Confidentiality of Alcohol and Drug Abuse Patient Records regulations: The Federal rules restrict any use of the information to criminally investigate or prosecute any alcohol or drug abuse patient.[facility] HospitalIn the event this information is protected by the Federal Confidentiality of Alcohol and Drug Abuse Patient Records regulations: The Federal rules restrict any use of the information to criminally investigate or prosecute any alcohol or drug abuse patient.[facility] HospitalIn the event this information is protected by the Federal Confidentiality of Alcohol and Drug Abuse Patient Records regulations: The Federal rules restrict any use of the information to criminally investigate or prosecute any alcohol or drug abuse patient.[facility] HospitalIn the event this information is protected by the Federal Confidentiality of Alcohol and Drug Abuse Patient Records regulations: The Federal rules restrict any use of the information to criminally investigate or prosecute any alcohol or drug abuse patient.[facility] HospitalIn the event this information is protected by the Federal Confidentiality of Alcohol and Drug Abuse Patient Records regulations: The Federal rules restrict any use of the information to criminally investigate or prosecute any alcohol or drug abuse patient.[facility] HospitalIn the event this information is protected by the Federal Confidentiality of Alcohol and Drug Abuse Patient Records regulations: The Federal rules restrict any use of the information to criminally investigate or prosecute any alcohol or drug abuse patient.[facility] HospitalIn the event this information is protected by the Federal Confidentiality of Alcohol and Drug Abuse Patient Records regulations: The Federal rules restrict any use of the information to criminally investigate or prosecute any alcohol or drug abuse patient.[facility] HospitalIn the event this information is protected by the Federal Confidentiality of Alcohol and Drug Abuse Patient Records regulations: The Federal rules restrict any use of the information to criminally investigate or prosecute any alcohol or drug abuse patient.[facility] HospitalIn the event this information is protected by the Federal Confidentiality of Alcohol and Drug Abuse Patient Records regulations: The Federal rules restrict any use of the information to criminally investigate or prosecute any alcohol or drug abuse patient.[facility] HospitalIn the event this information is protected by the Federal Confidentiality of Alcohol and Drug Abuse Patient Records regulations: The Federal rules restrict any use of the information to criminally investigate or prosecute any alcohol or drug abuse patient.[facility] HospitalIn the event this information is protected by the Federal Confidentiality of Alcohol and Drug Abuse Patient Records regulations: The Federal rules restrict any use of the information to criminally investigate or prosecute any alcohol or drug abuse patient.[facility] HospitalIn the event this information is protected by the Federal Confidentiality of Alcohol and Drug Abuse Patient Records regulations: The Federal rules restrict any use of the information to criminally investigate or prosecute any alcohol or drug abuse patient.[facility] HospitalIn the event this information is protected by the Federal Confidentiality of Alcohol and Drug Abuse Patient Records regulations: The Federal rules restrict any use of the information to criminally investigate or prosecute any alcohol or drug abuse patient.[facility] HospitalIn the event this information is protected by the Federal Confidentiality of Alcohol and Drug Abuse Patient Records regulations: The Federal rules restrict any use of the information to criminally investigate or prosecute any alcohol or drug abuse patient.[facility] HospitalIn the event this information is protected by the Federal Confidentiality of Alcohol and Drug Abuse Patient Records regulations: The Federal rules restrict any use of the information to criminally investigate or prosecute any alcohol or drug abuse patient.[facility] HospitalIn the event this information is protected by the Federal Confidentiality of Alcohol and Drug Abuse Patient Records regulations: The Federal rules restrict any use of the information to criminally investigate or prosecute any alcohol or drug abuse patient.[facility] HospitalIn the event this information is protected by the Federal Confidentiality of Alcohol and Drug Abuse Patient Records regulations: The Federal rules restrict any use of the information to criminally investigate or prosecute any alcohol or drug abuse patient.[facility] HospitalIn the event this information is protected by the Federal Confidentiality of Alcohol and Drug Abuse Patient Records regulations: The Federal rules restrict any use of the information to criminally investigate or prosecute any alcohol or drug abuse patient.[facility] HospitalIn the event this information is protected by the Federal Confidentiality of Alcohol and Drug Abuse Patient Records regulations: The Federal rules restrict any use of the information to criminally investigate or prosecute any alcohol or drug abuse patient.[facility] HospitalIn the event this information is protected by the Federal Confidentiality of Alcohol and Drug Abuse Patient Records regulations: The Federal rules restrict any use of the information to criminally investigate or prosecute any alcohol or drug abuse patient.[facility] HospitalIn the event this information is protected by the Federal Confidentiality of Alcohol and Drug Abuse Patient Records regulations: The Federal rules restrict any use of the information to criminally investigate or prosecute any alcohol or drug abuse patient.[facility] HospitalIn the event this information is protected by the Federal Confidentiality of Alcohol and Drug Abuse Patient Records regulations: The Federal rules restrict any use of the information to criminally investigate or prosecute any alcohol or drug abuse patient.[facility] HospitalIn the event this information is protected by the Federal Confidentiality of Alcohol and Drug Abuse Patient Records regulations: The Federal rules restrict any use of the information to criminally investigate or prosecute any alcohol or drug abuse patient.[facility] HospitalIn the event this information is protected by the Federal Confidentiality of Alcohol and Drug Abuse Patient Records regulations: The Federal rules restrict any use of the information to criminally investigate or prosecute any alcohol or drug abuse patient.[facility] HospitalIn the event this information is protected by the Federal Confidentiality of Alcohol and Drug Abuse Patient Records regulations: The Federal rules restrict any use of the information to criminally investigate or prosecute any alcohol or drug abuse patient.[facility] HospitalIn the event this information is protected by the Federal Confidentiality of Alcohol and Drug Abuse Patient Records regulations: The Federal rules restrict any use of the information to criminally investigate or prosecute any alcohol or drug abuse patient.[facility] HospitalIn the event this information is protected by the Federal Confidentiality of Alcohol and Drug Abuse Patient Records regulations: The Federal rules restrict any use of the information to criminally investigate or prosecute any alcohol or drug abuse patient.[facility] HospitalIn the event this information is protected by the Federal Confidentiality of Alcohol and Drug Abuse Patient Records regulations: The Federal rules restrict any use of the information to criminally investigate or prosecute any alcohol or drug abuse patient.[facility] HospitalIn the event this information is protected by the Federal Confidentiality of Alcohol and Drug Abuse Patient Records regulations: The Federal rules restrict any use of the information to criminally investigate or prosecute any alcohol or drug abuse patient.[facility] HospitalIn the event this information is protected by the Federal Confidentiality of Alcohol and Drug Abuse Patient Records regulations: The Federal rules restrict any use of the information to criminally investigate or prosecute any alcohol or drug abuse patient.[facility] HospitalIn the event this information is protected by the Federal Confidentiality of Alcohol and Drug Abuse Patient Records regulations: The Federal rules restrict any use of the information to criminally investigate or prosecute any alcohol or drug abuse patient.[facility] HospitalIn the event this information is protected by the Federal Confidentiality of Alcohol and Drug Abuse Patient Records regulations: The Federal rules restrict any use of the information to criminally investigate or prosecute any alcohol or drug abuse patient.[facility] HospitalIn the event this information is protected by the Federal Confidentiality of Alcohol and Drug Abuse Patient Records regulations: The Federal rules restrict any use of the information to criminally investigate or prosecute any alcohol or drug abuse patient.[facility] HospitalIn the event this information is protected by the Federal Confidentiality of Alcohol and Drug Abuse Patient Records regulations: The Federal rules restrict any use of the information to criminally investigate or prosecute any alcohol or drug abuse patient.[facility] HospitalIn the event this information is protected by the Federal Confidentiality of Alcohol and Drug Abuse Patient Records regulations: The Federal rules restrict any use of the information to criminally investigate or prosecute any alcohol or drug abuse patient.[facility] HospitalIn the event this information is protected by the Federal Confidentiality of Alcohol and Drug Abuse Patient Records regulations: The Federal rules restrict any use of the information to criminally investigate or prosecute any alcohol or drug abuse patient.[facility] HospitalIn the event this information is protected by the Federal Confidentiality of Alcohol and Drug Abuse Patient Records regulations: The Federal rules restrict any use of the information to criminally investigate or prosecute any alcohol or drug abuse patient.[facility] HospitalIn the event this information is protected by the Federal Confidentiality of Alcohol and Drug Abuse Patient Records regulations: The Federal rules restrict any use of the information to criminally investigate or prosecute any alcohol or drug abuse patient.[facility] HospitalIn the event this information is protected by the Federal Confidentiality of Alcohol and Drug Abuse Patient Records regulations: The Federal rules restrict any use of the information to criminally investigate or prosecute any alcohol or drug abuse patient.[facility] HospitalIn the event this information is protected by the Federal Confidentiality of Alcohol and Drug Abuse Patient Records regulations: The Federal rules restrict any use of the information to criminally investigate or prosecute any alcohol or drug abuse patient.[facility] HospitalIn the event this information is protected by the Federal Confidentiality of Alcohol and Drug Abuse Patient Records regulations: The Federal rules restrict any use of the information to criminally investigate or prosecute any alcohol or drug abuse patient.[facility] HospitalIn the event this information is protected by the Federal Confidentiality of Alcohol and Drug Abuse Patient Records regulations: The Federal rules restrict any use of the information to criminally investigate or prosecute any alcohol or drug abuse patient.[facility] HospitalIn the event this information is protected by the Federal Confidentiality of Alcohol and Drug Abuse Patient Records regulations: The Federal rules restrict any use of the information to criminally investigate or prosecute any alcohol or drug abuse patient.[facility] HospitalIn the event this information is protected by the Federal Confidentiality of Alcohol and Drug Abuse Patient Records regulations: The Federal rules restrict any use of the information to criminally investigate or prosecute any alcohol or drug abuse patient.[facility] HospitalIn the event this information is protected by the Federal Confidentiality of Alcohol and Drug Abuse Patient Records regulations: The Federal rules restrict any use of the information to criminally investigate or prosecute any alcohol or drug abuse patient.[facility] HospitalIn the event this information is protected by the Federal Confidentiality of Alcohol and Drug Abuse Patient Records regulations: The Federal rules restrict any use of the information to criminally investigate or prosecute any alcohol or drug abuse patient.[facility] HospitalIn the event this information is protected by the Federal Confidentiality of Alcohol and Drug Abuse Patient Records regulations: The Federal rules restrict any use of the information to criminally investigate or prosecute any alcohol or drug abuse patient.[facility] HospitalIn the event this information is protected by the Federal Confidentiality of Alcohol and Drug Abuse Patient Records regulations: The Federal rules restrict any use of the information to criminally investigate or prosecute any alcohol or drug abuse patient.[facility] HospitalIn the event this information is protected by the Federal Confidentiality of Alcohol and Drug Abuse Patient Records regulations: The Federal rules restrict any use of the information to criminally investigate or prosecute any alcohol or drug abuse patient.[facility] HospitalIn the event this information is protected by the Federal Confidentiality of Alcohol and Drug Abuse Patient Records regulations: The Federal rules restrict any use of the information to criminally investigate or prosecute any alcohol or drug abuse patient.[facility] HospitalIn the event this information is protected by the Federal Confidentiality of Alcohol and Drug Abuse Patient Records regulations: The Federal rules restrict any use of the information to criminally investigate or prosecute any alcohol or drug abuse patient.[facility] HospitalIn the event this information is protected by the Federal Confidentiality of Alcohol and Drug Abuse Patient Records regulations: The Federal rules restrict any use of the information to criminally investigate or prosecute any alcohol or drug abuse patient.[facility] Reason for Visit (unrecogniz ed section and [...] US Specialty Diagnoses / Procedures Referred By Contmelissa t Referred To Contact [facility] Diagnoses Pelvic pain in female Procedures US FEMALE PELVIS TRANSVAG US TRANSVAGINAL Antonieta Farrell MD [address] [place] [address] [place] [address] Referral ID Status Reason Start Date Expiration Date V isits Requested Visits Authorized [id number] Closed Auto-Generate d Referral 02/03/2023 03/04/2024 1 [...] EMG(NEURO/NI) NERVE CONDUCTION STUDIES 9-10 STUDIES Sanjana Pugh, DO [address] [place] [address] [place] [address] Referral ID Status Reason Start Date Expiration Date V isits Requested Visits Authorized [id number] Closed Auto-Generate d Referral 03/11/2024 07/06/2024 1 [...] Referred By Contac t Referred To Contact [facility] Diagnoses 8 weeks gestation of ([facility]) Procedures OBSTETRIC ULTRASOUND WHI US PREG UTERUS AFTER 1ST TRIMEST GESTATION Paola Hill, MACIEL.ART PROFESSOR [address] [place] [address] Phone: tel: fax: [place] [phone] Referral ID Status Reason Start Date Expiration Date V isits Requested Visits Authorized [id number] Closed Auto-Generate d Referral 11/30/2024 11/30/2025 1 1 Reason Comments Consult Specialty Diagnoses / Procedures Referred By Contac t Referred To Contact Diagnoses History of delivery, currently (HCC) Procedures CONSULT TO MATERNAL MEDI OFFICE/OUTPATIENT NEW HIGH MDM 60 MINUTES Marcia Farrell APRN.LAUREN [address] [place] [address] Phone: tel: fax: Referral ID Status Reason Start Date Expiration Date V isits Requested Visits Authorized [id number] Closed PCP Requested Referral Auto-Generated Referral 12/14/2024 12/14/2025 1 1 Reason Onset Date Comments Care 12/28/2024 Reason Onset Date Comments Care 01/26/2025 Specialty Diagnoses / Procedures Referred By Contac t Referred To Contact [facility] Diagnoses History of delivery, currently ([facility]) Procedures OBSTETRIC ULTRASOUND WHI US PREG UTERUS AFTER 1ST TRIMEST GESTATION Scott Alcazar MD [address] [place] [address] Phone: tel: fax: [address] [address] Referral ID Status Reason Start Date Expiration Date V isits Requested Visits Authorized [id number] Closed Auto-Generate d Referral 12/28/2024 12/28/2025 1 1 Reason Comments Urinary Problem Burning and frequenc y x 3 days Reason Comments Care Reason Onset Date Comments Care 02/23/2025 Specialty Diagnoses / Procedures Referred By Contac t Referred To Contact [facility] Diagnoses 20 weeks gestation of (HCC) Supervision of high risk , antepartum ([facility]) Procedures OBSTETRIC ULTRASOUND WHI US PREG UTERUS AFTER 1ST TRIMEST GESTATION Marcia Farrell APRN.LAUREN [address] [place] [address] Phone: tel: fax: [place] [phone] [place] [address] Referral ID Status Reason Start Date Expiration Date V isits Requested Visits Authorized [id number] Closed Auto-Generat ed Referral Patient Cleared - Admin/Chairm an/Director advise to proceed or did not respond 02/23/2025 07/06/2025 1 1 Reason Comments OB UTI Specialty Diagnoses / Procedures Referred By Contac t Referred To Contact [facility] Diagnoses Supervision of high risk , antepartum (HCC) Hx of delivery, currently (HCC) Procedures OBSTETRIC ULTRASOUND WHI US PREG UTERUS AFTER 1ST TRIMEST GESTATION Marcia Farrell APRN.CNM [address] [place] [address] Phone: tel: fax: [facility] [address] [place] [address] Referral ID Status Reason Start Date Expiration Date V isits Requested Visits Authorized [id number] Closed Auto-Generate d Referral 03/11/2025 02/23/2026 1 1 Reason Comments Patient Update Reason Onset Date Comments Care 03/14/2025 Reason Onset Date Comments Care 03/11/2025 Reason Onset Date Comments Care 03/22/2025 Care Teams (unrecognized sec tion and content) Pick Up Operator Relationship Specialty Start Date End Date Melissa Cabezas [address] [place] [address] PCP - General Pediatrics 02/04/14 Pick Up Operator Relationship Specialty Start Date End Date Melissa Cabezas [address] [place] [address] PCP - General Pediatrics 02/04/14 Pick Up Operator Relationship Specialty Start Date End Date Melissa Cabezas [address] [place] [address] PCP - General Pediatrics 02/04/14 Pick Up Operator Relationship Specialty Start Date End Date Melissa Cabezas [address] [place] [address] PCP - General Pediatrics 02/04/14 Pick Up Operator Relationship Specialty Start Date End Date Melissa Cabezas [address] [place] [address] PCP - General Pediatrics 02/04/14 Pick Up Operator Relationship Specialty Start Date End Date Melissa Cabezas [address] [place] [address] PCP - General Pediatrics 02/04/14 Pick Up Operator Relationship Specialty Start Date End Date Melissa Cabezas [address] [place] [address] PCP - General Pediatrics 02/04/14 Pick Up Operator Relationship Specialty Start Date End Date Melissa Cabezas [address] [place] [address] PCP - General Pediatrics 02/04/14 Pick Up Operator Relationship Specialty Start Date End Date Pascual Melissa Ann [address] [place] [address] PCP - General Pediatrics 02/04/14 Pick Up Operator Relationship Specialty Start Date End Date Melissa Cabezas [address] [place] [address] PCP - General Pediatrics 02/04/14 Pick Up Operator Relationship Specialty Start Date End Date Melissa Cabezas [address] [place] [address] PCP - General Pediatrics 02/04/14 Team Status: Active Member Role Status Dates Dr. Melissa Cabezas MD Family Provider Active Dr. Melissa Cabezas MD Primary Care Provider Active Team Status: Inactive Member Role Status Dates Dr. Melissa Cabezas MD Primary Care Provider Active Dr. Jonathan Rush MD Emergency Provider Active Pick Up Operator Relationship Specialty Start Date End Date Melissa Cabezas [address] [place] [address] PCP - General Pediatrics 02/04/14 Pick Up Operator Relationship Specialty Start Date End Date Melissa Cabezas [address] [place] [address] PCP - General Pediatrics 02/04/14 Pick Up Operator Relationship Specialty Start Date End Date Melissa Cabezas [address] [place] [address] PCP - General Pediatrics 02/04/14 Pick Up Operator Relationship Specialty Start Date End Date Melissa Cabezas [address] [place] [address] PCP - General Pediatrics 02/04/14 Pick Up Operator Relationship Specialty Start Date End Date Melissa Cabezas [address] [place] [address] PCP - General Pediatrics 02/04/14 Pick Up Operator Relationship Specialty Start Date End Date Melissa Cabezas [address] [place] [address] PCP - General Pediatrics 02/04/14 Pick Up Operator Relationship Specialty Start Date End Date Melissa Cabezas MD [address] [place] [address] PCP - General Pediatrics 02/04/14 Pick Up Operator Relationship Specialty Start Date End Date Melissa Cabezas MD [address] [place] [address] PCP - General Pediatrics 02/04/14 Pick Up Operator Relationship Specialty Start Date End Date Melissa Cabezas MD [address] [place] [address] PCP - General Pediatrics 02/04/14 Team Status: Inactive Member Role Status Dates Dr. Melissa Cabezas MD Primary Care Provider Active Dr. Eze Norman DO Emergency Provider Active Pick Up Operator Relationship Specialty Start Date End Date Melissa Cabezas MD [address] [place] [address] PCP - General Pediatrics 02/04/14 Pick Up Operator Relationship Specialty Start Date End Date Melissa Cabezas MD [address] [place], [place] [address] PCP - General Pediatrics 02/04/14 Pick Up Operator Relationship Specialty Start Date End Date Melissa Cabezas MD [address] [place], [place] [address] PCP - General Pediatrics 02/04/14 Pick Up Operator Relationship Specialty Start Date End Date Melissa Cabezas MD [address] [place], [place] [id number] PCP - General Pediatrics 02/04/14 Pick Up Operator Relationship Specialty Start Date End Date Melissa Cabezas MD [address] [place], [place] [id number] PCP - General Pediatrics 02/04/14 10/13/24 Team [...] BE BASED ON THE PRIMARY CLINICAL RECORDS. [facility]. provides no warranty or guarantee of the accuracy or completeness of information in this document.
[2025-06-30 20:50] LABS: ROM Internal Control Test YES-OK TO RESULT pt. (Internal QC)
[2025-06-30 20:51] LABS: ROM Patient Test POSITIVE (Negative); Record Kit Lot#, ROM+ K3607
--- OUTSIDE RECORDS SUMMARY | 2025-06-30 21:03 | XMS RPT_ITS | CCD ---
Author Organization [facility] ion [facility] Care Team Providers Care Stunner Name Role Phone Melissa Cabezas Primary Care [...] Attending Unavailable SERGIO, PAOLA Attending Unavailable TOÑA REIJ L Referring Unavailable PLOTTS, MARCIA Referring Unavailable [...] [ADHESIVE TAPE (ROSINS)] Allergy to substance 4 [facility] Work Phone: (20 sources) Latex; Translations: [LATEX] Drug Allergy [facility] (3 sources) natural latex rubber Propensity to adverse reactions 3 [facility] (1 source) natural latex rubber Drug allergy (disorder) 5 [facility] Repository Medications Current Medications Medication Drug Class(es) [...] Comment on above: Take 1 tablet by [facility] two times a day for 7 days. [...] Comment on above: Take 1 tablet by [facility] twice daily for 7 days. mupirocin 0.02 [...] 6 hours as needed for nausea/vomiting. PNV Comb.Yn35-Zyrb,Carbony l-FA 29 mg iron- 1 mg tab (8 sources) Start: 03-26-20 End: 10-26-19 take 1 tablet by mouth once daily PNV Comb.Zn46-Arts,Carbon yl-FA 29 mg iron- 1 mg tab Take 1 tablet by mouth once daily. 30 tablet 4 03/26/2024 10/25/2024 Discontinued (Discontinued by Patient) Start: 03-26-2024 take 1 tablet by marcela th once daily PNV Comb.Ii18-Txco,Carbonyl-FA 29 mg iro n- 1 mg tab Take 1 tablet by mouth once daily. 30 tablet 4 03/26/2024 Active Rnrwraya-Yu-Zoo-Fe-FA tab (20 sources) Start: 10-25-2024 take 1 tablet by mouth once daily Ernsnarq-Yn-Rwx-Fe-FA tab Take 1 tablet by mouth once daily. 30 tablet 5 10/25/2024 Active Start: 12-13-2021 End: 08-12-2022 take 1 tablet by mouth once daily Wakcgtqt-Th-Yei-Fe-FA tab Take 1 tablet by mouth once daily. 30 tablet 11 12/13/2021 08/12/2022 Discontinued (Other) Start: 12-13-2021 take 1 tablet by marcela th once daily Uduooftp-Hd-Kvv-Fe-FA tab Take 1 tablet by mouth once daily. 30 tablet 11 12/13/2021 Active Start: 11-21-2020 End: 12-12-2021 take 1 tablet by mouth once daily Usrnnnzd-Et-Xwf-Fe-FA tab Indications: 8 weeks gestation of Take 1 tablet by mouth once daily. 30 tablet 11 11/21/2020 12/12/2021 Discontinued Comment on above: Take 1 tablet by marcela once daily. Exqediyz-Kdc-Bg-Fa () 1 mg Tablet (3 sources) Start: 03-07-2021 take 1 tablet by mouth once daily Ahivxsyz-Psl-Yr-Fa () 1 mg Tablet Active 1 {tbl} PO DAILY March 07, 2021 12:00am Start: 03-07-2021 take 1 tablet by marcela th once daily Mtgvzfsm-Cjg-Am-Fa () 1 mg Tablet Active 1 TABLET PO DAILY March 07, 2021 12:00am vit 99-ppxq-midaz-dha (PRENATE MINI, FERR ASP GLYCIN,) 18-1-350 mg cap (20 sources) Start: 08-12-2022 End: 10-25-2024 take 1 capsule by mouth once daily vit 19-wgqv-qoknr-dha (PRENATE MINI, FERR ASP GLYCIN,) 18-1-350 mg cap Take 1 Dose by mouth once daily. 30 capsule 12 08/12/2022 10/25/2024 Discontinued (Discontinued by Patient) Start: 08-12-2022 take 1 capsule by mo [facility] once daily vit 74-nuqs-tzabd-dha (PRENATE MINI, FERR ASP GLYCIN,) 18-1-350 mg [...] on above: Take 2 tablets by mo [facility] every 4 hours as needed for [...] Comment on above: Take 1 capsule by [facility] twice daily for 5 days. Take 1 capsule by mo [facility] twice daily with meals for 7 days. Take 1 capsule by [facility] two times a day for 7 days. norethindrone 0.35 mg oral tablet (11 sources) Start: 1 End: 3 take 1 tablet by mouth once daily Norethindrone, Contraceptive, (ORTHO MICRONOR) 0.35 mg tablet Take 1 tablet by mouth once daily. 84 tablet 1 06/13/2021 08/12/2022 Discontinued (Other) Comment on above: Take 1 tablet by [facility] once daily. omeprazole 20 mg delayed release [...] Comment on above: Take 1 capsule by [facility] once daily. Take 20 mg by mouth [...] of ; Translations: [29 weeks gestation of ([facility])] Onset: Episodic Residual codes; unclassified (1 source) 24 weeks gestation of ; Translations: [24 weeks gestation of ([facility])] Onset: 5 Episodic Residual codes; unclassified (1 source) 23 weeks gestation of ; Translations: [23 weeks gestation of ([facility])] Onset: 5 Episodic Residual codes; unclassified (1 source) Pain, unspecified; Translations: [Generalized body aches] Onset: 5 Episodic Residual codes; unclassified (1 source) 20 weeks gestation of ; Translations: [20 weeks gestation of ([facility])] Onset: 5 Episodic Skin and subcutaneous tissue [...] 11-30-2024 Unclassified (1 source) Pelvic pressure in ([facility]); Translations: [Pelvic pressure in ([facility])] Onset: 5 Unclassified (1 source) Acute midline [...] unspecified trimester; Translations: [Hx of delivery, currently ([facility])] Onset: 12-28-2024 Episodic Other infections; including parasitic [...] Unsp challenge [Mass/Vol] 116 mg/dL Normal 74-179 [facility] Comment on above: Order Comment: Zachery jin Type: BLOOD SPECIMENOrdering Facility: [facility] Address: [address] [place] [address] Result Comment: [facility] Congress of Obstetricians and Gynecologists (Noelle/Elaina) guidelines state gestational diabetes mellitus is present when 2 or more of the plasma glucose concentrations meet or exceed the following levels: fastin mg/dl, 1 hr: 180 mg/dl, 2 hr: 155 mg/dl, and 3 hr: 140 mg/dl. Performed By: #### G TGST1 ####[facility] [id number] [address] STATES OF [facility] GLUCOSE GESTATIONAL, FASTING on 05-18-2025 Glucose post fast [Mass/Vol] 76 mg/dL Normal 74-94 [facility] Comment on above: Order Comment: Zachery jin Type: BLOOD SPECIMENOrdering Facility: [facility] Address: [address] [place] [address] Result Comment: [facility] Congress of Obstetricians and Gynecologists (Noelle/Elaina) guidelines state gestational diabetes mellitus is present when 2 or more of the plasma glucose concentrations meet or exceed the following levels: fastin mg/dl, 1 hr: 180 mg/dl, 2 hr: 155 mg/dl, and 3 hr: 140 mg/dl. Performed By: #### G TGSTF ####[facility] [id number] [address] OF [place] CNCOon 05-17-2025 CNCO Letter Text Normal [facility] OB Triage Physician Noteon 1 07-17-2024 OB Triage Physician Note [facility] Medical Records Department [address] [place] [address] OB Triage Physician Note 05/17/25 193 MR#: [id number] Acct: [id number] Name: BARBARA SCHWAB Rep #: [id number] : 2000 24 From: Reji Ding MD PCP: Dr. Melissa Cabezas MD Status:DEP CLI Y Location: [facility] HPI - General General Date of Admission: 05/14/25 Date of Service: 05/14/25 HPI Narrative BARBARA SCHWAB, is a 24 F who presents for the Celestone injection for threatened labor. [facility] Medical History IBS (irritable bowel syndrome) Depression GERD (gastroesophageal reflux disease) Home Medications ???Medication ???Instructions ???Recorded ???Last Taken ???Type valacyclovir 1 gram tablet 1,000 mg PO DAILY PRN hsv 11/11/20 05/01/21 06:30 History (Valtrex) vcfnnvvf-mre-Ve-FA 1 mg 1 tab PO DAILY 03/07/21 [...] MD; Dr. Reji Ding MD Signed Normal [facility] Bacteria Ur Culton 5 Bacteria identified Cx Nom (U) ORGANISM ID: 1 10,000 -<50,000 CFU/ml Normal urogenital jerod Normal [facility] Comment on above: Performed By: #### 6 30-4 ####[facility] LABCLIA [id number] [address] HISTORY PHYSICALon 5 HISTORY PHYSICAL HNO ID: [id number] Author: EMY GORMAN MD Service: Obstetrics Author [...] Procedure Laterality Date SALPINGECTOMY Right 04/01/2024 laparoscopic, [facility] for ectopic FAMILY HISTORY Problem Relation Age of Onset Hypertension Mother other (insomnia) Mother other (fibromyalgia) Mother other (IBS) Mother Heart Attack Father Depression Sister No Known Problems Brother Diabetes Maternal Grandmother Hypertension Maternal Grandmother other (Grayling's Disease) Maternal Grandmother Cancer Maternal Grandfather Lung [...] Problems Diagnosis Date Noted Abnormal glucose complicating ([facility]) 04/08/2025 Overview Note: 05/03/25- Needs complete 3 hour GTT. Marcia Farrell APRN.LAUREN Antepartum anemia complicating in third trimester ([facility]) 04/08/2025 Overview Note: 9.7 on 04/08/25 Urinary tract infection without hematuria 02/23/2025 Overview Note: 02/23/25- Urine culture positive for proteus vulgaris. Started on Keflex. Will need test of cure at next visit. Marcia Farrell APRN.CNM Hx of delivery, currently ([facility]) 11/01/2020 Overview Note: 12/28/24 - needs serial cervical lengths starting at 16 weeks. MFM consult today. Kamilla Porter MD History of herpes genitalis 11/01/2020 Overview Note: 1Pt has a history of genital herpes. Discussed with pt. importance of reporting any outbreaks during should they occur.TKRN Supervision of high risk , antepartum ([facility]) 02/04/2019 Overview Note: Care Checklist Vaccines: [] [...] (28-30 weeks): [] Consent [] Contraception [] Bottom Liquor Attendant, car seat, safe sleep [] TeamBirth handout Third trimester (36-40 weeks): [] GBS [] Presentation - [] Scheduled [] yes - Hibiclens, pre-op instructions, CBC, TANDS ordered [] no [] HANDP [] Preferences worksheet [] Scanned in E (more content not included)... Normal [facility] ROUTINE, GROUP B ST REPTOCOCCUS BY PCRon 05-13-2025 ROUTINE, GROUP B STREPTOCOCCUS BY PCR Not detected Normal [facility] Comment on above: Performed By: #### G BPCR ####[facility] LABCLIA [id number] [place] [id number] [place] Bacteria Ur Iraida 5 [...] , Intermediate >32 , Resistant >64 Abnormal [facility] Comment on above: Performed By: #### 6 30-4 ####[facility] LABCLIA [id number] [address] OF [facility] CNPNon 04-15-2025 CNPN Telephone (OGFVWE) ---- BARBARA SCHWAB ([id number]) 4 F Date Time Provider Department 04/15/25 NURSE 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 - Tglerupl-Mz-Dar-Fe- FA tab Take 1 tablet by mouth once daily. - escitalopram oxalate (LEXAPRO) 10 mg tablet Take 10 mg by mouth once daily. Problem List As Of Date 04/15/2025 Noted Resolved Supervision of high risk , antepartum *02/04/2019 History of marijuana use [F12.91] 02/04/2019 03/11/2025 Quit smoking [Z87.891] 02/04/2019 08/06/2019 History of depression [Z86.59] 02/04/2019 Family history of Grayling's disease [Z82.0] 02/04/2019 Patient request for diagnostic testing [Z01.89] 02/04/2019 08/06/2019 Anemia during in second trimester [O9*05/18/2019 08/06/2019 Threatened premature labor in third trimester [*06/18/2019 08/06/2019 delivery, delivered [O60.10X0] 08/06/2019 08/12/2022 Hx of delivery, currently ([facility]*11/01/2020 History of herpes genitalis [Z86.19] 11/01/2020 Nausea/vomiting in ([facility]) [O21.9] 11/30/2024 11/30/2024 Dichorionic diamniotic twin in second*02/13/2021 06/03/2021 Cervical insufficiency during in seco*03/15/2021 08/12/2022 Threatened labor, second trimester [O47*03/15/2021 08/12/2022 premature rupture of membranes [O42.919]05/02/2021 08/12/2022 Threatened miscarriage in early ([facility])*03/26/2024 12/28/2024 Urinary tract infection without hematuria [N39.*02/23/2025 Abnormal glucose complicating ([facility]) [*04/08/2025 Antepartum anemia complicating in thi*04/08/2025 Encounter Status:Closed by DONALDO DESAI on 04/15/25 Normal [facility] CBC panel Auto (Bld)on 04-08 Erythrocyte distribution width (RBC) [Ratio] 12.4 % Normal 11.5-15.0 [facility] Comment on above: Order Comment: Speci men Type: BLOOD SPECIMENOrdering Facility: [facility] Address: [address] [place] [address] Performed By: #### 5 8410-2 ####[facility] [id number] [place] [address] [place] Hematocrit (Bld) [Volume fraction] 28.6 % Low 36.0-46.0 [facility] Comment on above: Order Comment: Speci men Type: BLOOD SPECIMENOrdering Facility: [facility] Address: [address] [place] [address] Performed By: #### 5 8410-2 ####[facility] [id number] [place] [address] [place] Hemoglobin (Bld) [Mass/Vol] 9.7 g/dL Low 11.5-15.5 [facility] Comment on above: Order Comment: Speci men Type: BLOOD SPECIMENOrdering Facility: [facility] Address: [address] [place] [address] Performed By: #### 5 8410-2 ####[facility] [id number] [address] [place] MCH (RBC) [Entitic mass] 28.9 pg Normal 26.0-34.0 [facility] Comment on above: Order Comment: Speci men Type: BLOOD SPECIMENOrdering Facility: [facility] Address: [address] [place] [address] Performed By: #### 5 8410-2 ####[facility]STITUT[facility]CLIA [id number] [address] [place] MCHC (RBC) [Mass/Vol] 33.9 g/dL Normal 30.5-36.0 [facility] Comment on above: Order Comment: Speci men Type: BLOOD SPECIMENOrdering Facility: [facility] Address: [address] [place] [address] Performed By: #### 5 8410-2 ####[facility] [id number] [address] [place] MCV (RBC) [Entitic vol] 85.1 fL Normal 80.0-100.0 [facility] Comment on above: Order Comment: Speci men Type: BLOOD SPECIMENOrdering Facility: [facility] Address: [address] [place] [address] Performed By: #### 5 8410-2 ####[facility] MAXIMILIANO RONCLIEN [id number] [place] [address] [place] Nucleated RBC (Bld) [#/Vol] 10*3/uL Normal <0.01 [facility] Comment on above: Order Comment: Speci men Type: BLOOD SPECIMENOrdering Facility: [facility] Address: [address] [place] [address] Performed By: #### 5 8410-2 ####[facility] INSTITUTENCLICharles [id number] [place] [address] [place] Platelet mean volume (Bld) [Entitic vol] 10.0 fL Normal 9.0-12.7 [facility] Comment on above: Order Comment: Speci men Type: BLOOD SPECIMENOrdering Facility: [facility] Address: [address] [place] [address] Performed By: #### 5 8410-2 ####[facility] INSTITUTENCLIA [id number] [place] [address] [place] Platelets (Bld) [#/Vol] 233 10*3/uL Normal 150-400 [facility] Comment on above: Order Comment: Speci men Type: BLOOD SPECIMENOrdering Facility: [facility] Address: [address] [place] [address] Performed By: #### 5 8410-2 ####[facility] INSTITUTENCLIA [id number] [place] [address] [place] RBC (Bld) [#/Vol] 3.36 10*6/uL Low 3.90-5.20 [facility] Comment on above: Order Comment: Speci men Type: BLOOD SPECIMENOrdering Facility: [facility] Address: [address] [place] [address] Performed By: #### 5 8410-2 ####[facility] INSTITUTENCA [id number] [place] [address] [place] WBC (Bld) [#/Vol] 12.55 10*3/uL High 3.70-11.00 [facility] Comment on above: Order Comment: Speci men Type: BLOOD SPECIMENOrdering Facility: [facility] Address: [address] [place] [address] Performed By: #### 5 8410-2 ####[facility] [id number] [place] [address] [place] Ferritin SerPl-mCncon 2024 Ferritin [Mass/Vol] 9.8 ng/mL Low 14.7-205.1 [facility] Comment on above: Order Comment: Speci men Type: BLOOD SPECIMENOrdering Facility: [facility] Address: [address] [place] [address] Performed By: #### 2 276-4, 62225-7 ####[facility] LABCLIA [id number] [place] [address] [place] GESTATIONAL GLUCOSE SCREEN, 1-HOUR, 50 GRAM, NON-FASTINGon 04-08-2025 Glucose [Mass/Vol] 153 mg/dL High 74-134 [facility] Comment on above: Order Comment: Speci men Type: BLOOD SPECIMENOrdering Facility: [facility] Address: [address] [place] [address] Result Comment: [facility] Congress of Obstetricians and Gynecologists (Noelle/Elaina) guidelines state a gestational diabetes mellitus positive screen is made, in women not previously diagnosed with overt diabetes, when the 1 hr plasma glucose level is equal to or above 140 mg/dL. The [facility] Spinning Lathe Operator [employer] and [facility] recommends a 135 mg/dL cutoff. Performed By: #### G LTGST ####[facility] [id number] [place] [address] [place] Iron and Iron binding capaci ty panelon 04-08-2025 Iron [Mass/Vol] 22 ug/dL Low 41-186 [facility] Comment on above: Order Comment: Speci men Type: BLOOD SPECIMENOrdering Facility: [facility] Address: [address] [place] [address] Performed By: #### 2 276-4, 95821-2 ####[facility] LABIA [id number] [place] [address] [place] Iron binding capacity [Mass/Vol] 487 ug/dL High 232-386 [facility] Comment on above: Order Comment: Speci men Type: BLOOD SPECIMENOrdering Facility: [facility] Address: [address] [place] [address] Performed By: #### 2 276-4, 17453-3 ####[facility] LABIA [id number] [place] [address] [place] Iron/TIBC [Molar ratio] 4.5 % Low 15.0-57.0 [facility] Comment on above: Order Comment: Speci men Type: BLOOD SPECIMENOrdering Facility: [facility] Address: [address] [place] [address] Performed By: #### 2 276-4, 51052-2 ####[facility] LABIA [id number] [place] [address] [place] Reagin and Treponema pallidu m IgG and IgM [Interp]on 04-08-2025 T. pallidum IgG+IgM IA Ql (S) Non-Reactive Normal Nonreactive [facility] Comment on above: Order Comment: Speci men Type: BLOOD SPECIMENOrdering Facility: [facility] Address: [address] [place] [address] Performed By: #### 7 3752-8 ####[facility] LABCLIA [id number] [place] [address] [place] Reagin+T pallidum IgG+IgM Se rPl-Impon 04-08-2025 Reagin and Treponema pallidum IgG and IgM [Interp] Cannot exclude recent Treponemal infection if specimen collected within 7-10 days after appearance of suspect lesions or 2-3 weeks after an exposure. Clinical correlation is required. Normal [facility] Comment on above: Order Comment: Speci men Type: BLOOD SPECIMENOrdering Facility: [facility] Address: [address] [place] [address] Performed By: #### 7 3752-8 ####[facility] LABCLIA [id number] [address] [place] CNOVon 03-28-2025 CNOV Office Visit ([facility]) ---- BARBARA SCHWAB ([id number]) 4 F Date Time Provider Department 03/28/25 9:15 AM ESHA PORTER During your visit today, we recorded the following information about you: Temperature Pulse Respiration Blood pressure 97.7 degrees 110/minute 18/minute 116/82 Weight 58.8 kg Esha Porter APRN.CENTRAL SUPPLY ASSISTANT 03/28/2025 9:44 AM Signed [facility] [...] agrees with care plan. and Recording using Live Life 360 software for draft documentation of the visit was discussed with the patient/authorized financial services sales representative; all questions welcomed and answered. Patient/authorized financial services sales representative agreed to proceed History and [...] Diagnosis:Sore throat [J02.9] Order(s):STREP A MOLECULAR (POC) [1184649] Order #: [id number]. #:[id number] Prescriptions as of 03/28/2025 - melatonin 3 mg tablet TAKE 2 TABLETS BY MOUTH EVERY NIGHT AT BEDTIME NEEDED for sleep - aspirin, enteric coated (ECOTRIN LOW STRENGTH) 81 mg EC tablet Take 1 tablet by mouth once daily. - valACYclovir (VALTREX) 1 gram tablet Take 1 tablet by mouth as needed. - Eczubvet-Gj-Jrz-Fe- FA tab Take 1 tablet by mouth once daily. - escitalopram oxalate (LEXAPRO) 10 mg tablet Take 10 mg by mouth once daily. Problem List As Of Date 03/28/2025 Noted Resolved Supervision of high risk , antepartum *02/04/2019 History of marijuana use [F12.91] 02/04/2019 03/11/2025 Quit smoking [Z87.891] 02/04/2019 08/06/2019 History of depression [Z86.59] 02/04/2019 Family history of Grayling's disease [Z82.0] 02/04/2019 Patient request for diagnostic testing [Z01.89] 02/04/2019 08/06/2019 Anemia during in second trimester [O9*05/18/2019 08/06/2019 Threatened premature labor in third trimester [*06/18/2019 08/06/2019 delivery, delivered [O60.10X0] 08/06/2019 08/12/2022 Hx of delivery, currently ([facility]*11/01/2020 History of herpes genitalis [Z86.19] 11/01/2020 Nausea/vomiting in ([facility]) [O21.9] 11/30/2024 11/30/2024 Dichorionic diamniotic twin in second*02/13/2021 06/03/2021 Cervical insufficiency during in seco*03/15/2021 08/12/2022 Threatened labor, second trimester [O47*03/15/2021 08/12/2022 premature rupture of membranes [O42.919]05/02/2021 08/12/2022 Threatened miscarriage in early ([facility])*03/26/2024 12/28/2024 Urinary tract infection without hematuria [N39.*02/23/2025 Letter Text Encounter Status:Closed by ESHA PORTER on 03/28/25 [facility] Bacteria Ur [...] technique or straight catheterization for???urine???colle ction. Normal [facility] Comment on above: Performed By: #### 6 30-4 ####[facility] LABCLIA [id number] [place] [address] [place] UA DIP, URINE (POC)on 2024 BILIRUBIN UA (POCT) Negative Negative Jemal [facility] CLARITY UA (POCT) Clear [facility] COLOR UA (POCT) Other [facility] GLUCOSE UA (POCT) Negative Negative mg/dL [facility] Hemoglobin Ql (U) Negative Negative [facility] Interpretation and review of laboratory results Abnormal [facility] KETONE UA (POCT) Negative Negative mg/dL [facility] LEUKOCYTES UA (POCT) Moderate Abnormal Negative [facility] NITRITE UA (POCT) Negative Negative [facility] PH UA (POCT) 6.5 4.5 - 8.0 [facility] Protein Ql (U) Negative Negative mg/dL [facility] SPECIFIC GRAVITY UA (POCT) <=1.005 Abnormal 1.005 - 1.030 [facility] UROBILINOGEN UA (POCT) 0.2 Luz Maria l E.U./dL [facility] Location:[facility], [address] [facility], [place], [place], [id number] [place] [address] POINT OF CARE [facility] CBC panel Auto (Bld)on 03-14 Erythrocyte distribution width (RBC) [Ratio] 13.2 % 11.5 - 15.0 % [facility] [facility] Hematocrit (Bld) [Volume fraction] 33.6 % Low 36.0 - 46.0 % [facility] Hemoglobin (Bld) [Mass/Vol] 11.3 g/dL Low 11.5 - 15.5 g/dL [facility] Interpretation and review of laboratory results Abnormal [facility] MCH (RBC) [Entitic mass] 30.0 pg 26. 0 - 34.0 pg [facility] MCHC (RBC) [Mass/Vol] 33.6 g/dL 30.5 - 36.0 g/dL [facility] MCV (RBC) [Entitic vol] 89.1 fL 80.0 - 100.0 fL [facility] Nucleated RBC (Bld) [#/Vol] NINF [facility] Platelet mean volume (Bld) [Entitic vol] 9.9 fL 9.0 - 12.7 fL [facility] Platelets (Bld) [#/Vol] 243 10*3/uL [facility] RBC (Bld) [#/Vol] 3.77 10*6/uL Low 3.90 - 5.2 0 m/uL [facility] WBC (Bld) [#/Vol] 11.18 10*3/uL High [facility] Erythrocyte distribution width (RBC) [Ratio] 13.2 % Normal 11.5-15.0 [facility] Comment on above: Order Comment: Speci men Type: BLOOD SPECIMENOrdering Facility: [facility] Address: [address] [place] [address] Performed By: #### 5 8410-2 ####[facility] [id number] [place] [address] [place] Hematocrit (Bld) [Volume fraction] 33.6 % Low 36.0-46.0 [facility] Comment on above: Order Comment: Terencei annabel Type: BLOOD SPECIMENOrdering Facility: [facility] Address: [address] [place] [address] Performed By: #### 5 8410-2 ####[facility] [id number] [place] [address] [place] Hemoglobin (Bld) [Mass/Vol] 11.3 g/dL Low 11.5-15.5 [facility] Comment on above: Order Comment: Speci men Type: BLOOD SPECIMENOrdering Facility: [facility] Address: [address] [place] [address] Performed By: #### 5 8410-2 ####[facility] [id number] [place] [address] [place] MCH (RBC) [Entitic mass] 30.0 pg Normal 26.0-34.0 [facility] Comment on above: Order Comment: Speci men Type: BLOOD SPECIMENOrdering Facility: [facility] Address: [address] [place] [address] Performed By: #### 5 8410-2 ####[facility] MARCELOWNCLIA [id number] [place] [address] [place] MCHC (RBC) [Mass/Vol] 33.6 g/dL Normal 30.5-36.0 [facility] Comment on above: Order Comment: Speci men Type: BLOOD SPECIMENOrdering Facility: [facility] Address: [address] [place] [address] Performed By: #### 5 8410-2 ####[facility] [id number] [place] [address] [place] MCV (RBC) [Entitic vol] 89.1 fL Normal 80.0-100.0 [facility] Comment on above: Order Comment: Speci men Type: BLOOD SPECIMENOrdering Facility: [facility] Address: [address] [place] [address] Performed By: #### 5 8410-2 ####[facility]CL[facility] [id number] [place] [address] [place] Nucleated RBC (Bld) [#/Vol] 10*3/uL Normal <0.01 [facility] Comment on above: Order Comment: Speci men Type: BLOOD SPECIMENOrdering Facility: [facility] Address: [address] [place] [address] Performed By: #### 5 8410-2 ####[facility]STITUT[facility]CL[facility] [id number] [place] [address] [place] Platelet mean volume (Bld) [Entitic vol] 9.9 fL Normal 9.0-12.7 [facility] Comment on above: Order Comment: Speci men Type: BLOOD SPECIMENOrdering Facility: [facility] Address: [address] [place] [address] Performed By: #### 5 8410-2 ####[facility] JAYJAYNCLIA [id number] [place] [address] [facility] [place] Platelets (Bld) [#/Vol] 243 10*3/uL Normal 150-400 [facility] Comment on above: Order Comment: Speci men Type: BLOOD SPECIMENOrdering Facility: [facility] Address: [address] [place] [address] Performed By: #### 5 8410-2 ####[facility] MARCELOPrestonNCLIA [id number] [place] [address] [place] RBC (Bld) [#/Vol] 3.77 10*6/uL Low 3.90-5.20 [facility] Comment on above: Order Comment: Speci men Type: BLOOD SPECIMENOrdering Facility: [facility] Address: [address] [place] [address] Performed By: #### 5 8410-2 ####[facility] INSTITUTENCLIA [id number] [place] [address] [place] WBC (Bld) [#/Vol] 11.18 10*3/uL High 3.70-11.00 [facility] Comment on above: Order Comment: Speci men Type: BLOOD SPECIMENOrdering Facility: [facility] Address: [address] [place] [address] Performed By: #### 5 8410-2 ####[facility] INSTITUTENCLIA [id number] [place] [address] [facility] Comprehensive metabolic 2000 panelOrdered By: Jessica Carey on 03-14-2025 Albumin [Mass/Vol] 3.8 g/dL Low 3.9 - 4.9 g/dL [facility] ALP [Catalytic activity/Vol] 65 U/L 34 - 123 U/L [facility] ALT [Catalytic activity/Vol] U/L Low 7 - 38 U/L [facility] Anion gap [Moles/Vol] 11 mmol/L 8 - 15 mmol/L [facility] AST [Catalytic activity/Vol] 11 U/L Low 13 - 35 U/L [facility] Bilirubin [Mass/Vol] 0.3 mg/dL 0.2 - 1 .3 mg/dL [facility] Calcium [Mass/Vol] 8.8 mg/dL 8.5 - 10. 2 mg/dL [facility] Chloride [Moles/Vol] 101 mmol/L 98 - 10 7 mmol/L [facility] CO2 [Moles/Vol] 25 mmol/L 22 - 30 mmol/L [facility] Creatinine [Mass/Vol] 0.39 mg/dL Low 0.58 - 0.96 mg/dL [facility] GFR/1.73 sq M.predicted among non-blacks MDRD (S/P/Bld) [Vol rate/Area] 145 mL/min/{1.73_m2} - PINF [facility] Comment on above: Estimated Glomerular Filtration Rate [...] [Mass/Vol] 77 mg/dL 74 - 99 mg/dL [facility] Comment on above: The [place] Diabete s Association (ADA) provides guidance for [...] Standards of Medical Care in Diabetes 2016, [place] Diabetes Association. Diabetes Care. 2016.39(Suppl 1). Interpretation and review of laboratory results Abnormal [facility] Potassium [Moles/Vol] 3.5 mmol/L Low 3.7 - 5.1 mmol/L [facility] Protein [Mass/Vol] 6.3 g/dL 6.3 - 8.0 g/dL [facility] Sodium [Moles/Vol] 137 mmol/L 136 - 144 mmol/L [facility] Urea nitrogen [Mass/Vol] 5 mg/dL Low 7 - 21 mg/d L [facility] Comprehensive metabolic 2000 panelon 03-14-2025 Albumin [Mass/Vol] 3.8 g/dL Low 3.9-4.9 [facility] Comment on above: Order Comment: Speci men Type: BLOOD SPECIMENOrdering Facility: [facility] Address: [address] [place] [address] Performed By: #### 2 4323-8 ####[facility] [id number] [place] [address] [place] ALP [Catalytic activity/Vol] 65 U/L Normal 34-123 [facility] Comment on above: Order Comment: Speci men Type: BLOOD SPECIMENOrdering Facility: [facility] Address: [address] [place], [place] [address] Performed By: #### 2 4323-8 ####[facility] HOSPITALLIA [id number] [place] [address] [place] ALT [Catalytic activity/Vol] U/L Low 7-38 [facility] Comment on above: Order Comment: Speci men Type: BLOOD SPECIMENOrdering Facility: [facility] Address: [address] [place] [address] Performed By: #### 2 4323-8 ####[facility] HOSPITALLIA [id number] [place] [address] [place] Anion gap [Moles/Vol] 11 mmol/L Normal 8-15 [facility] Comment on above: Order Comment: Speci men Type: BLOOD SPECIMENOrdering Facility: [facility] Address: [address] [place] [address] Performed By: #### 2 4323-8 ####[facility] MAXIMILIANO MILLTOWNCLIA [id number] [place] [address] [place] AST [Catalytic activity/Vol] 11 U/L Low 13-35 [facility] Comment on above: Order Comment: Speci men Type: BLOOD SPECIMENOrdering Facility: [facility] Address: [address] [place] [address] Performed By: #### 2 4323-8 ####[facility] MILLWNCLIA [id number] [place] [address] [place] Bilirubin [Mass/Vol] 0.3 mg/dL Normal 0.2-1.3 [facility] Comment on above: Order Comment: Speci men Type: BLOOD SPECIMENOrdering Facility: [facility] Address: [address] [place] [address] Performed By: #### 2 4323-8 ####[facility] INSTITUTENCLIA [id number] [place] [address] [place] Calcium [Mass/Vol] 8.8 mg/dL Normal 8.5-10.2 [facility] Comment on above: Order Comment: Speci men Type: BLOOD SPECIMENOrdering Facility: [facility] Address: [address] [place] [address] Performed By: #### 2 4323-8 ####[facility] CENTERWNCLIA [id number] [place] [address] [place] Chloride [Moles/Vol] 101 mmol/L Normal 98-107 [facility] Comment on above: Order Comment: Speci men Type: BLOOD SPECIMENOrdering Facility: [facility] Address: [address] [place] [address] Performed By: #### 2 4323-8 ####[facility] CENTERWNCLIA [id number] [place] [address] [place] CO2 [Moles/Vol] 25 mmol/L Normal 22-30 [facility] Comment on above: Order Comment: Speci men Type: BLOOD SPECIMENOrdering Facility: [facility] Address: [address] [place] [address] Performed By: #### 2 4323-8 ####[facility]UTEN[facility] [id number] [place] [address] [place] Creatinine [Mass/Vol] 0.39 mg/dL Low 0.58-0.96 [facility] Comment on above: Order Comment: Speci men Type: BLOOD SPECIMENOrdering Facility: [facility] Address: [address] [place] [address] Performed By: #### 2 4323-8 ####[facility]UTENCRIV[facility] [id number] [place] [address] [place] eGFRcr SerPlBld CKD-EPI 2020 145 mL/min/1.73m??? Normal >=60 [facility] Comment on above: Order Comment: Speci men Type: BLOOD SPECIMENOrdering Facility: [facility] Address: [address] [place] [address] Result Comment: Catherine mated Glomerular Filtration Rate [...] actual GFR. Performed By: #### 2 4323-8 ####[facility] INSTITUTENCLIA [id number] [place] [address] [place] Glucose [Mass/Vol] 77 mg/dL Normal 74-99 [facility] Comment on above: Order Comment: Speci men Type: BLOOD SPECIMENOrdering Facility: [facility] Address: [address] [place] [address] Result Comment: The [place] Diabetes Association (ADA) provides guidance for cutoff [...] Standards of Medical Care in Diabetes 2016, [place] Diabetes Association. Diabetes Care. 2016.39(Suppl 1). Performed By: #### 2 4323-8 ####[facility]STITUTEFRIDARIVERT[facility] [id number] [place] [address] [place] Potassium [Moles/Vol] 3.5 mmol/L Low 3.7-5.1 [facility] Comment on above: Order Comment: Speci men Type: BLOOD SPECIMENOrdering Facility: [facility] Address: [address] [place] [address] Performed By: #### 2 4323-8 ####[facility] [id number] [place] [address] [place] Protein [Mass/Vol] 6.3 g/dL Normal 6.3-8.0 [facility] Comment on above: Order Comment: Speci men Type: BLOOD SPECIMENOrdering Facility: [facility] Address: [address] [place] [address] Performed By: #### 2 4323-8 ####[facility]OSPITALLIA [id number] [place] [address] [place] Sodium [Moles/Vol] 137 mmol/L Normal 136-144 [facility] Comment on above: Order Comment: Speci men Type: BLOOD SPECIMENOrdering Facility: [facility] Address: [address] [place] [address] Performed By: #### 2 4323-8 ####[facility] [id number] [place] [address] [place] Urea nitrogen [Mass/Vol] 5 mg/dL Low 7-21 [facility] Comment on above: Order Comment: Speci men Type: BLOOD SPECIMENOrdering Facility: [facility] Address: [address] [place] [address] Performed By: #### 2 4323-8 ####[facility] [id number] [place] [address] [place] TSH W/REFLEX FT4on TSH Qn 0.860 m[IU]/L Normal 0.270-4.200 [facility] Comment on above: Order Comment: Speci men Type: BLOOD SPECIMENOrdering Facility: [facility] Address: [address] [place] [address] Result Comment: If t he patient is , TSH reference range varies by gestational period: First Trimester (weeks 9-12): 0.180-2.990 mIU/L Second Trimester: 0.110-3.980 mIU/L Third Trimester: 0.480-4.710 mIU/L Jassi Cruz et al. A Practical Approach for the Verifications and Determination of Site- and Trimester-Specific Reference Intervals for Thyroid Function tests in . Thyroid, 2019:29:3:412-420. Jona Goetz, et al. 2017 Guidelines of the [place] Thyroid Association for the Diagnosis and Management of Thyroid Disease during and the . Thyroid, 2017:27:3:315-389. Performed By: #### [facility] ####[facility] LABCLIA [id number] [place] [address] [place] BACTERIAL CULTURE, URINEOrde red By: Geno Albert on 03-13-2025 Bacteria identified Cx Nom (U) 10,000 -<50,000 CFU/ml Proteus vulgaris Abnormal [facility] Bacteria identified Cx Nom ( U)Ordered By: Geno Albert on 03-13-2025 Interpretation and review of laboratory results Abnormal [facility] This test was developed and its performance characteristics determined by the [facility]'s [facility] [place] ([facility]). It has not been cleared or approved by the FDA. [facility] is regulated under CLIA as qualified to perform high-complexity testing. This test is used for clinical purposes. It should not be regarded as investigational or for research. [facility] Bacteria Ur Culton 5 Bacteria [...] , Intermediate >32 , Resistant >64 Abnormal [facility] Comment on above: Performed By: #### 6 30-4 ####[facility] LABCLIA [id number] [address] Examination level ultrasound on 03-11-2025 [facility] Radiology Study observation (narrative) [facility] Chasity 03-01-2025 CNPN Telephone (OBGYWM) ---- BARBARA SCHWAB ([id number]) 4 F Date Time Provider Department 03/01/25 [...] KAMILLA PORTER Pharmacy Information Pharmacy Address [facility] [address] [place], [place] [address] Allergies As of Date: 03/01/2025 Noted Allergy [...] 1 tablet by mouth as needed. - Tykjyvgz-Yt-Aya-Fe- FA tab Take 1 tablet by mouth once daily. - escitalopram oxalate (LEXAPRO) 10 mg tablet Take 10 mg by mouth once daily. Problem List As Of Date 03/01/2025 Noted Resolved Supervision of high risk , antepartum *02/04/2019 History of marijuana use [F12.91] 02/04/2019 Quit smoking [Z87.891] 02/04/2019 08/06/2019 History of depression [Z86.59] 02/04/2019 Family history of Grayling's disease [Z82.0] 02/04/2019 Patient request for diagnostic testing [Z01.89] 02/04/2019 08/06/2019 Anemia during in second trimester [O9*05/18/2019 08/06/2019 Threatened premature labor in third trimester [*06/18/2019 08/06/2019 delivery, delivered [O60.10X0] 08/06/2019 08/12/2022 Hx of delivery, currently ([facility]*11/01/2020 History of herpes genitalis [Z86.19] 11/01/2020 Nausea/vomiting in ([facility]) [O21.9] 11/30/2024 11/30/2024 Dichorionic diamniotic twin in second*02/13/2021 06/03/2021 Cervical insufficiency during in seco*03/15/2021 08/12/2022 Threatened labor, second trimester [O47*03/15/2021 08/12/2022 premature rupture of membranes [O42.919]05/02/2021 08/12/2022 Threatened miscarriage in early (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 - Mybjtqbr-Qk-Kfz-Fe- FA tab Take 1 tablet by mouth [...] [O60.10X0] 08/06/2019 08/12/2022 Hx of delivery, currently ([facility]*11/01/2020 History of herpes genitalis [Z86.19] 11/01/2020 Nausea/vomiting in ([facility]) [O21.9] 11/30/2024 11/30/2024 Dichorionic diamniotic twin in second*02/13/2021 06/03/2021 Cervical insufficiency during in seco*03/15/2021 08/12/2022 Threatened labor, second trimester [O47*03/15/2021 08/12/2022 premature rupture of membranes [O42.919]05/02/2021 08/12/2022 Threatened miscarriage in early ([facility])*03/26/2024 12/28/2024 Urinary tract infection without hematuria [N39.*02/23/2025 Encounter Status:Closed by DONALDO DESAI on 02/24/25 [facility] Chasity 02-23-2025 CNPN Telephone (OBGYWM) ---- BARBARA SCHWAB ([id number]) 4 F Date Time Provider Department 02/23/25 [...] [681] Primary Visit Diagnosis:20 weeks gestation of ([facility]) [Z3A.20] Other Visit Diagnosis:Supervisi on of high risk , antepartum ([facility]) [O09.90] Order(s):OBSTETRIC ULTRASOUND [facility] [[id number]] Order #: [id number]: 1 FUTURE Prescriptions as of 02/23/2025 - [...] 1 tablet by mouth as needed. - Cxragkiz-Gm-Zov-Fe- FA tab Take 1 tablet by mouth once daily. - escitalopram oxalate (LEXAPRO) 10 mg tablet Take 10 mg by mouth once daily. Problem List As Of Date 02/23/2025 Noted Resolved Supervision of high risk , antepartum *02/04/2019 12/28/2024 History of marijuana use [F12.91] 02/04/2019 Quit smoking [Z87.891] 02/04/2019 08/06/2019 History of depression [Z86.59] 02/04/2019 Family history of Grayling's disease [Z82.0] 02/04/2019 Patient request for diagnostic testing [Z01.89] 02/04/2019 08/06/2019 Anemia during in second trimester [O9*05/18/2019 08/06/2019 Threatened premature labor in third trimester [*06/18/2019 08/06/2019 delivery, delivered [O60.10X0] 08/06/2019 08/12/2022 Hx of delivery, currently ([facility]*11/01/2020 History of herpes genitalis [Z86.19] 11/01/2020 Nausea/vomiting in ([facility]) [O21.9] 11/30/2024 11/30/2024 Dichorionic diamniotic twin in second*02/13/2021 06/03/2021 Cervical insufficiency during in seco*03/15/2021 08/12/2022 Threatened labor, second trimester [O47*03/15/2021 08/12/2022 premature rupture of membranes [O42.919]05/02/2021 08/12/2022 Threatened miscarriage in early (HCC)*03/26/2024 12/28/2024 Encounter Status:Closed by MARCIA FARRELL on 02/23/25 Normal [facility] Examination level ultrasound on 02-23-2025 Indication Standard [...] 14 oz EFW by: Hadlock (HC-AC-FL) Extended Electrical Products Engineer 6.8 mm CM 7.2 mm 95% Nicolaides [...] normal LVOT view: normal 3-vessel view: normal 6-bzxylz-ojcxoof view: normal Heart / Thorax Situs: situs [...] Read By: Bel Serrano M.D. MATERNAL MEDICINE [facility] Radiology Study observation (narrative) [facility] jossie [facility] Chasity 02-18-2025 CNPN Telephone (OBGYWM) ---- BARBARA SCHWAB ([id number]) 4 F Date Time Provider Department 02/18/25 [...] Rx for Bactrim prescribed and faxed to [facility] in [place]. Confirmed with pharmacy that Pt did pick [...] 1 tablet by mouth as needed. - Aluxdiel-Ls-Iqy-Fe- FA tab Take 1 tablet by mouth once daily. - escitalopram oxalate (LEXAPRO) 10 mg tablet Take 10 mg by mouth once daily. Problem List As Of Date 02/18/2025 Noted Resolved Supervision of high risk , antepartum *02/04/2019 12/28/2024 History of marijuana use [F12.91] 02/04/2019 Quit smoking [Z87.891] 02/04/2019 08/06/2019 History of depression [Z86.59] 02/04/2019 Family history of Grayling's disease [Z82.0] 02/04/2019 Patient request for diagnostic testing [Z01.89] 02/04/2019 08/06/2019 Anemia during in second trimester [O9*05/18/2019 08/06/2019 Threatened premature labor in third trimester [*06/18/2019 08/06/2019 delivery, delivered [O60.10X0] 08/06/2019 08/12/2022 Hx of delivery, currently ([facility]*11/01/2020 History of herpes genitalis [Z86.19] 11/01/2020 Nausea/vomiting in ([facility]) [O21.9] 11/30/2024 11/30/2024 Dichorionic diamniotic twin in second*02/13/2021 06/03/2021 Cervical insufficiency during in seco*03/15/2021 08/12/2022 Threatened labor, second trimester [O47*03/15/2021 08/12/2022 premature rupture of membranes [O42.919]05/02/2021 08/12/2022 Threatened miscarriage in early ([facility])*03/26/2024 12/28/2024 Encounter Status:Closed by BECKY FAY on 02/22/25 [facility] Bacteria Ur Culton Bacteria identified Cx [...] , Intermediate >32 , Resistant >64 Abnormal [facility] Comment on above: Performed By: #### 6 30-4 ####[facility] MADY [id number] [place] [id number] [place] CNOVon 02-17-2025 CNOV Office Visit (WOUCA) ---- BARBARA SCHWAB ([id number]) 4 F Date Time Provider Department 02/17/25 10:15 AM ESHA PORTER During your visit today, we recorded the following information about you: Temperature Pulse Respiration Blood pressure 97.6 degrees 99/minute 18/minute 108/76 Weight 54 kg Esha Porter APRN.[facility] 02/17/2025 10:41 AM Signed URGENT CARE [...] Urine sent for culture. - Will message ELECTRIC POWER LINE REPAIRER (Dr. Edwadrs) with high-importance update regarding UTI and current management. - Advised patient to follow any additional instructions from ELECTRIC POWER LINE REPAIRER if contacted. and Recording using Live Life 360 software for draft documentation of the visit was discussed with the patient/authorized financial services sales representative; all questions welcomed and answered. Patient/authorized financial services sales representative agreed to proceed MDM Procedures Allergies As of Date: 02/17/2025 Noted Allergy Reaction ADHESIVE TAPE (ROSINS) 02/04/2014 2 - Rash LATEX 2 - Rash Date Reviewed: 02/17/2025 Reviewed by: Christina Iyer LPN - Fully Assessed Reason for Visit: Urinary Problem [252] Cmt: Burning and frequency x 3 days Primary Visit Diagnosis:Burning with urination [R30.0] Order(s):UA DIP, URINE (POC) [[id number]] Order #: [id number]. #:[id number] BACTERIAL CULTURE, URINE [SQURCUL] Order #: [id number]. #:[id number] nitrofurantoin monohydrate and macrocrystal (MACROBID) 100 mg [...] 1 tablet by mouth as needed. - Qowtwmpk-Vn-Qqj-Fe- FA tab Take 1 tablet by mouth [...] [O60.10X0] 08/06/2019 08/12/2022 Hx of delivery, currently ([facility]*11/01/2020 History of herpes genitalis [Z86.19] 11/01/2020 Nausea/vomiting in ([facility]) [O21.9] 11/30/2024 11/30/2024 Dichorionic diamniotic twin in second*02/13/2021 06/03/2021 Cervical insufficiency during in seco*03/15/2021 08/12/2022 Threatened labor, second trimester [O47*03/15/2021 08/12/2022 premature rupture of membranes [O42.919]05/02/2021 08/12/2022 Threatened miscarriage in early ([facility])*03/26/2024 12/28/2024 Prescriptions ordered this encounter Disp Refills Start End NITROFURANTOIN MONOHYDRATE AND MACROCR* 10 c* 0 02/17/2025 02/22/2025 Route: PO Sig: Take 1 capsule by mouth two times a day for 5 days. Letter Text Encounter Status:Closed by ESHA PORTER on 02/04 (more content not included)... Normal [facility] UA DIP, URINE (POC)on 2024 BILIRUBIN UA (POCT) Negative Negative [facility] CLARITY UA (POCT) Clear [facility] COLOR UA (POCT) Yellow [facility] GLUCOSE UA (POCT) Negative Negative mg/dL [facility] Hemoglobin Ql (U) Small Abnormal Negative [facility] Interpretation and review of laboratory results Abnormal [facility] KETONE UA (POCT) Negative Negative mg/dL [facility] LEUKOCYTES UA (POCT) Moderate Abnormal Negative [facility] NITRITE UA (POCT) Negative Negative [facility] PH UA (POCT) 6.0 4.5 - 8.0 [facility] Protein Ql (U) Negative Negative mg/dL [facility] SPECIFIC GRAVITY UA (POCT) <=1.005 Abnormal 1.005 - 1.030 [facility] UROBILINOGEN UA (POCT) 0.2 Luz Maria l E.U./dL [facility] Location:[facility], [address] [place] [address], [place], [address] [facility] POINT OF CARE [facility] CNCOon 02-10-2025 CNCO Letter Text Normal [facility] Examination level ultrasound on 01-26-2025 Indication Cervical [...] Read By: Melanie Cook M.D. MATERNAL MEDICINE [facility] Radiology Study observation (narrative) [place] sethi [facility] CBC W Auto Differential pane l (Bld)on 12-29-2024 Basophils (Bld) [#/Vol] 0.04 10*3/uL Normal <0.11 [facility] Comment on above: Order Comment: Speci men Type: BLOOD SPECIMENOrdering Facility: [facility] Address: [address] [place] [address] Performed By: #### 5 7021-8 ####[facility] [id number] [place] [address] [place] Basophils/100 WBC (Bld) 0.4 % Normal [facility] Comment on above: Order Comment: Speci men Type: BLOOD SPECIMENOrdering Facility: [facility] Address: [address] [place] [address] Performed By: #### 5 7021-8 ####[facility] MARCELOJOSE MARIA [id number] [place] [address] [place] Differential cell count method Nom (Bld) Auto Normal [facility] Comment on above: Order Comment: Speci men Type: BLOOD SPECIMENOrdering Facility: [facility] Address: [address] [place] [address] Performed By: #### 5 7021-8 ####[facility] [id number] [place] [address] [place] Eosinophils (Bld) [#/Vol] 0.03 10*3/uL Normal <0.46 [facility] Comment on above: Order Comment: Speci men Type: BLOOD SPECIMENOrdering Facility: [facility] Address: [address] [place] [address] Performed By: #### 5 7021-8 ####[facility]UTENCA [id number] [place] [address] [place] Eosinophils/100 WBC (Bld) 0.3 % Normal [facility] Comment on above: Order Comment: Speci men Type: BLOOD SPECIMENOrdering Facility: [facility] Address: [address] [place] [address] Performed By: #### 5 7021-8 ####[facility] INSTITUTENCLIA [id number] [place] [address] [place] Erythrocyte distribution width (RBC) [Ratio] 12.6 % Normal 11.5-15.0 [facility] Comment on above: Order Comment: Speci men Type: BLOOD SPECIMENOrdering Facility: [facility] Address: [address] [place] [address] Performed By: #### 5 7021-8 ####[facility] [id number] [place] [address] [place] Hematocrit (Bld) [Volume fraction] 34.8 % Low 36.0-46.0 [facility] Comment on above: Order Comment: Speci men Type: BLOOD SPECIMENOrdering Facility: [facility] Address: [address] [place] [address] Performed By: #### 5 7021-8 ####[facility] [id number] [place] [address] [place] Hemoglobin (Bld) [Mass/Vol] 12.0 g/dL Normal 11.5-15.5 [facility] Comment on above: Order Comment: Speci men Type: BLOOD SPECIMENOrdering Facility: [facility] Address: [address] [place] [address] Performed By: #### 5 7021-8 ####[facility] [id number] [place] [address] [place] Immature granulocytes (Bld) [#/Vol] 0.04 10*3/uL Normal <0.10 [facility] Comment on above: Order Comment: Speci men Type: BLOOD SPECIMENOrdering Facility: [facility] Address: [address] [place] [address] Performed By: #### 5 7021-8 ####[facility] [id number] [place] [address] [place] Immature granulocytes/100 WBC (Bld) 0.4 % Normal [facility] Comment on above: Order Comment: Speci men Type: BLOOD SPECIMENOrdering Facility: [facility] Address: [address] [place] [address] Performed By: #### 5 7021-8 ####[facility] [id number] [place] [address] [place] Lymphocytes (Bld) [#/Vol] 1.95 10*3/uL Normal 1.00-4.00 [facility] Comment on above: Order Comment: Speci men Type: BLOOD SPECIMENOrdering Facility: [facility] Address: [address] [place] [address] Performed By: #### 5 7021-8 ####[facility] [id number] [place] [address] [place] Lymphocytes/100 WBC (Bld) 17.8 % Normal [facility] Comment on above: Order Comment: Speci men Type: BLOOD SPECIMENOrdering Facility: [facility] Address: [address] [place] [address] Performed By: #### 5 7021-8 ####[facility] INSTITUTENCLI [id number] [place] [address] [place] MCH (RBC) [Entitic mass] 29.9 pg Normal 26.0-34.0 [facility] Comment on above: Order Comment: Speci men Type: BLOOD SPECIMENOrdering Facility: [facility] Address: [address] [place] [address] Performed By: #### 5 7021-8 ####[facility] [id number] [place] [address] [place] MCHC (RBC) [Mass/Vol] 34.5 g/dL Normal 30.5-36.0 [facility] Comment on above: Order Comment: Speci men Type: BLOOD SPECIMENOrdering Facility: [facility] Address: [address] [place], [place] [address] Performed By: #### 5 7021-8 ####[facility] [id number] [place] [address] [place] MCV (RBC) [Entitic vol] 86.8 fL Normal 80.0-100.0 [facility] Comment on above: Order Comment: Speci men Type: BLOOD SPECIMENOrdering Facility: [facility] Address: [address] [place] [address] Performed By: #### 5 7021-8 ####[facility] MARCELOJOSE MARIA [id number] [place] [address] [place] Monocytes (Bld) [#/Vol] 0.60 10*3/uL Normal <0.87 [facility] Comment on above: Order Comment: Speci men Type: BLOOD SPECIMENOrdering Facility: [facility] Address: [address] [place] [address] Performed By: #### 5 7021-8 ####[facility] [id number] [place] [address] [place] Monocytes/100 WBC (Bld) 5.5 % Normal [facility] Comment on above: Order Comment: Speci men Type: BLOOD SPECIMENOrdering Facility: [facility] Address: [address] [place] [address] Performed By: #### 5 7021-8 ####[facility] INSTITUTENCLIA [id number] [place] [address] [place] Neutrophils (Bld) [#/Vol] 8.32 10*3/uL High 1.45-7.50 [facility] Comment on above: Order Comment: Speci men Type: BLOOD SPECIMENOrdering Facility: [facility] Address: [address] [place] [address] Performed By: #### 5 7021-8 ####[facility] [id number] [place] [address] [place] Neutrophils/100 WBC (Bld) 75.6 % Normal [facility] Comment on above: Order Comment: Speci men Type: BLOOD SPECIMENOrdering Facility: [facility] Address: [address] [place] [address] Performed By: #### 5 7021-8 ####[facility] EFEWFRIDALIA [id number] [place] [address] [place] Nucleated RBC (Bld) [#/Vol] 10*3/uL Normal <0.01 [facility] Comment on above: Order Comment: Speci men Type: BLOOD SPECIMENOrdering Facility: [facility] Address: [address] [place] [address] Performed By: #### 5 7021-8 ####[facility] INSTITUTEFRIDALIA [id number] [place] [address] [place] Nucleated RBC/100 WBC (Bld) [Ratio] 0.0 /100 WBC Normal [facility] Comment on above: Order Comment: Speci men Type: BLOOD SPECIMENOrdering Facility: [facility] Address: [address] [place] [address] Performed By: #### 5 7021-8 ####[facility] [id number] [place] [address] [place] Platelet mean volume (Bld) [Entitic vol] 10.6 fL Normal 9.0-12.7 [facility] Comment on above: Order Comment: Speci men Type: BLOOD SPECIMENOrdering Facility: [facility] Address: [address] [place] [address] Performed By: #### 5 7021-8 ####[facility] [id number] [place] [address] [place] Platelets (Bld) [#/Vol] 231 10*3/uL Normal 150-400 [facility] Comment on above: Order Comment: Speci men Type: BLOOD SPECIMENOrdering Facility: [facility] Address: [address] [place] [address] Performed By: #### 5 7021-8 ####[facility] INSTITUTENCLIA [id number] [place] [address] [place] RBC (Bld) [#/Vol] 4.01 10*6/uL Normal 3.90-5.20 [facility] Comment on above: Order Comment: Speci men Type: BLOOD SPECIMENOrdering Facility: [facility] Address: [address] [place] [address] Performed By: #### 5 7021-8 ####[facility] [id number] [place] [address] [place] WBC (Bld) [#/Vol] 10.98 10*3/uL Normal 3.70-11.00 [facility] Comment on above: Order Comment: Speci men Type: BLOOD SPECIMENOrdering Facility: [facility] Address: [address] [place] [address] Performed By: #### 5 7021-8 ####[facility] [id number] [place] [address] [place] HBV surface Ag Ser Qlon 12-06 HBV surface Ag Ql (S) Negative Normal Negative [facility] Comment on above: Order Comment: Speci men Type: BLOOD SPECIMENOrdering Facility: [facility] Address: [address] [place] [address] Performed By: #### 5 195-3, 76136-0, 99077-0 ####[facility] LABCLIA [id number] [place] [address] [place] HCV Ab Ser Qlon 12-29-2024 HCV Ab Ql (S) Negative Normal Negative [facility] Comment on above: Order Comment: Speci men Type: BLOOD SPECIMENOrdering Facility: [facility] Address: [address] [place] [address] Result Comment: The result suggests no evidence of infection with Hepatitis C virus. Should recent infection be suspected, repeat testing may be considered 4-6 weeks after this draw. Performed By: #### 1 6128-1 ####[facility] LABCLIA [id number] [place] [address] [place] HIV 1+2 Ab IA Qlon 5 HIV 1 and 2 Ab IA.rapid Nom (S/P/Bld) Normal [facility] Comment on above: Order Comment: Speci men Type: BLOOD SPECIMENOrdering Facility: [facility] Address: [address] [place] [address] Result Comment: Test not indicated. Performed By: #### 5 195-3, 72838-2, 26201-7 ####[facility] LABCLIA [id number] [place] [address] [place] HIV 1+2 Ab+HIV1 p24 Ag IA Ql Non-Reactive Normal Nonreactive [facility] Comment on above: Order Comment: Speci men Type: BLOOD SPECIMENOrdering Facility: [facility] Address: [address] [place] [address] Performed By: #### 5 195-3, 62134-0, 69084-3 ####[facility] LABCLIA [id number] [place] [address] [place] HIV immunoassay testing algorithm interpretation (S/P/Bld) [Interp] Normal [facility] Comment on above: Order Comment: Speci men Type: BLOOD SPECIMENOrdering Facility: [facility] Address: [address] [place] [address] Result Comment: No e vidence of HIV-1 [...] or diagnoses. Performed By: #### 5 195-3, 49226-8, 64409-9 ####[facility] LABCLIA [id number] [address] HbA1c (Bld)on 12-29-2024 Average glucose Estimated from glycated hemoglobin (Bld) [Mass/Vol] 91 mg/dL Normal [facility] Comment on above: Order Comment: Zachery jin Type: BLOOD SPECIMENOrdering Facility: [facility] Address: [address] [place] [address] Result Comment: eAG: (Estimated average glucose) is a calculated value from HgbA1c and is financial services sales representative of the average blood glucose level in the last 2-3 month period. Performed By: #### 5 5454-3 ####[facility] LABIA [id number] [address] HbA1c (Bld) [Mass fraction] 4.8 % Normal 4.3-5.6 [facility] Comment on above: Order Comment: Zachery [facility] Type: BLOOD SPECIMENOrdering Facility: [facility] Address: [address] [place] [address] Result Comment: Amer [place] Diabetes Association guidelines indicate that patients with HgbA1c in the range 5.7-6.4% are at increased risk for development of diabetes, and intervention by lifestyle modification may be beneficial. HgbA1c greater or equal to 6.5% is considered diagnostic of diabetes. Performed By: #### 5 5454-3 ####[facility] LABCLIA [id number] [address] OF [facility] RUBELLA IGG ANTIBODYon 12-29 RUBELLA IGG AB, QUAL Positive Normal Positive [facility] Comment on above: Order Comment: Zachery [facility] Type: BLOOD SPECIMENOrdering Facility: [facility] Address: [address] [place] [address] Result Comment: The result suggests recent or past exposure to Rubella virus or history of Rubella vaccination. Positive result may also be seen due to presence of passively-transferred antibodies. Please correlate with patient's history. Performed By: #### R UBIGG ####[facility] LABCLIA [id number] [place] [address] [place] Reagin and Treponema pallidu m IgG and IgM [Interp]on 12-29-2024 T. pallidum IgG+IgM IA Ql (S) Non-Reactive Normal Nonreactive [facility] Comment on above: Order Comment: Speci men Type: BLOOD SPECIMENOrdering Facility: [facility] Address: [address] [place] [address] Performed By: #### 5 195-3, 64811-7, 16518-9 ####[facility] LABCLIA [id number] [place] [address] [place] Reagin+T pallidum IgG+IgM Se rPl-Impon 12-29-2024 Reagin and Treponema pallidum IgG and IgM [Interp] Cannot exclude recent Treponemal infection if specimen collected within 7-10 days after appearance of suspect lesions or 2-3 weeks after an exposure. Clinical correlation is required. Normal [facility] Comment on above: Order Comment: Speci men Type: BLOOD SPECIMENOrdering Facility: [facility] Address: [address] [place] [address] Performed By: #### 5 195-3, 21316-1, 00892-4 ####[facility] LABCLIA [id number] [place] [address] [place] TYPE + SCREEN PRENATALon ABO O Normal [facility] Comment on above: Order Comment: Speci men Type: BLOOD SPECIMENOrdering Facility: [facility] Address: [address] [place] [address] Performed By: #### T SPN ####[facility] BLO[facility] BANKCLIA [id number] [place] [address] [place] Rh Nom (Bld) Positive Normal [facility] Comment on above: Order Comment: Speci men Type: BLOOD SPECIMENOrdering Facility: [facility] Address: [address] [place] [address] Performed By: #### T SPN ####[facility] BLOOD BANKCLIA [id number] [place] [id number] [place] TYPE AND SCREEN EXPIRATION 01/01/2025 23:59 Normal [facility] Comment on above: Order Comment: Speci men Type: BLOOD SPECIMENOrdering Facility: [facility] Address: [address] [place] [address] Performed By: #### T SPN ####[facility] BLOOD BANKCLIA [id number] [place] [id number] [facility] Examination level ultrasound on 12-28-2024 Indication First trimester anatomic survey History of delivery 28 and 32 weeks Impression The patient is referred for a first trimester anatomy scan, including nuchal translucency measurement as clinically indicated, in a complicated by history of delivery x 2, depression (SSRI), and a family history of Russel's disease. Aneuploidy screening was declined. - Single, live, intrauterine . - [place] rump length measurement is consistent with the [...] view: normal 4-chamber view with color: normal 0-qgcdrv-lqxajuk view: normal Abdominal cord insertion: normal Stomach: [...] Read By: Scott Alcazar M.D. MATERNAL MEDICINE [facility] Radiology Study observation (narrative) [place] sethi [facility] BARBARA SCHWAB ([id number]) 4 F Date Time Provider Department 12/14/24 [place] [facility] During your visit today, we recorded the following information about you: Erik Galicia RN 12/14/2024 11:18 AM Signed Patient is scheduled for nuchal ultrasound on 12/28. This is [facility] day . Do you want [facility] referral for history of labor? Notes from [...] [681] Primary Visit Diagnosis:History of delivery, currently ([facility]) [O09.899] Order(s):CONSULT TO MATERNAL MEDI [[id number]] Order #: [id number]: 1 FUTURE Prescriptions as of 12/14/2024 - aspirin, enteric coated (ECOTRIN LOW STRENGTH) 81 mg EC tablet Take 1 tablet by mouth once daily. - valACYclovir (VALTREX) 1 gram tablet Take 1 tablet by mouth as needed. - Axomfxxz-Dd-Arz-Fe- FA tab Take 1 tablet by mouth once daily. - escitalopram oxalate (LEXAPRO) 10 mg tablet Take 10 mg by mouth once daily. Problem List As Of Date 12/14/2024 Noted Resolved Supervision of high risk , antepartum *02/04/2019 History of marijuana use [F12.91] 02/04/2019 Quit smoking [Z87.891] 02/04/2019 08/06/2019 History of depression [Z86.59] 02/04/2019 Family history of Grayling's disease [Z82.0] 02/04/2019 Patient request for diagnostic testing [Z01.89] 02/04/2019 08/06/2019 Anemia during in second trimester [O9*05/18/2019 08/06/2019 Threatened premature labor in third trimester [*06/18/2019 08/06/2019 delivery, delivered [O60.10X0] 08/06/2019 08/12/2022 Hx of delivery, currently ([facility]*11/01/2020 History of herpes genitalis [Z86.19] 11/01/2020 Nausea/vomiting in ([facility]) [O21.9] 11/30/2024 11/30/2024 Dichorionic diamniotic twin in second*02/13/2021 06/03/2021 Cervical insufficiency during in seco*03/15/2021 08/12/2022 Threatened labor, second trimester [O47*03/15/2021 08/12/2022 premature rupture of membranes [O42.919]05/02/2021 08/12/2022 Threatened miscarriage in early [O20.*03/26/2024 Encounter Status:Closed by MARCIA FARRELL [facility]14/[facility] BARBARA SCHWAB ([id number]) 4 F Date Time Provider Department 12/02/24 NURSE APPETIZER [facility] During your visit today, we recorded the following information about you: Donaldo Desai, RN 12/02/2024 9:25 AM Signed 1st risk assessment form submitted 12/02/24 Donaldo Desai RN Allergies As of Date: 12/02/2024 Noted Allergy Reaction ADHESIVE TAPE (ROSINS) 02/04/2014 2 - Rash LATEX 2 - Rash Date Reviewed: 11/24/2024 Reviewed by: Yosi Payne APRN.CENTRAL SUPPLY ASSISTANT - Fully Assessed Reason for Visit: PRAF [4193] Prescriptions as of 12/02/2024 - aspirin, enteric coated (ECOTRIN LOW STRENGTH) 81 mg EC tablet Take 1 tablet by mouth once daily. - valACYclovir (VALTREX) 1 gram tablet Take 1 tablet by mouth as needed. - Xnrulxwb-Bi-Vgp-Fe- FA tab Take 1 tablet by mouth once daily. - escitalopram oxalate (LEXAPRO) 10 mg tablet Take 10 mg by mouth once daily. Problem List As Of Date 12/02/2024 Noted Resolved Supervision of high risk , antepartum *02/04/2019 History of marijuana use [F12.91] 02/04/2019 Quit smoking [Z87.891] 02/04/2019 08/06/2019 History of depression [Z86.59] 02/04/2019 Family history of Grayling's disease [Z82.0] 02/04/2019 Patient request for diagnostic testing [Z01.89] 02/04/2019 08/06/2019 Anemia during in second trimester [O9*05/18/2019 08/06/2019 Threatened premature labor in third trimester [*06/18/2019 08/06/2019 delivery, delivered [O60.10X0] 08/06/2019 08/12/2022 Hx of delivery, currently ([facility]*11/01/2020 History of herpes genitalis [Z86.19] 11/01/2020 Nausea/vomiting in (HCC) [O21.9] 11/30/2024 11/30/2024 Dichorionic diamniotic twin in second*02/13/2021 06/03/2021 Cervical insufficiency during in seco*03/15/2021 08/12/2022 Threatened labor, second trimester [O47*03/15/2021 08/12/2022 premature rupture of membranes [O42.919]05/02/2021 08/12/2022 Threatened miscarriage in early [O20.*03/26/2024 Encounter Status:Closed by DONALDO DESAI on 12/02/24 [facility] Bacteria Ur Culton Bacteria identified Cx Nom (U) ORGANISM ID: 1 10,000 -<50,000 CFU/ml Normal urogenital jerod Normal [facility] Comment on above: Performed By: #### 6 30-4 ####[facility] LABCLIA [id number] [place] [address] [place] C. trachomatis+N. gonorrhoea e DNA AQUILINO+probe Ql (Unsp spec)on 11-30-2024 C. trachomatis rRNA AQUILINO+probe Ql (Unsp spec) Not detected Normal Not detected [facility] Comment on above: Order Comment: Speci men Type: SWABOrdering Facility: [facility] Address: [address] [place] [address] Performed By: #### T RVAMP, 29646-3 ####[facility] LABCLIA [id number] [place] [address] [place] N. gonorrhoeae rRNA AQUILINO+probe Ql (Unsp spec) Not detected Normal Not detected [facility] Comment on above: Order Comment: Speci men Type: SWABOrdering Facility: [facility] Address: [address] [place] [address] Performed By: #### T RVAMP, 74502-2 ####[facility] LABIA [id number] [place] [address] [place] CNCOon 11-30-2024 CNCO Letter Text Normal [facility] PAP TESTon 11-30-2024 ADEQUACY Normal [facility] Comment on above: Order Comment: Speci men Type: FLUID SPECIMENOrdering Facility: [facility] Address: [address] [place] [address] Result Comment: Sati sfactory for interpretation. Transformation zone present Performed By: #### L [id number] ####[facility] LABCLIA [id number] [place] [address] [place] CASE REPORT Normal [facility] [facility] Comment on above: Order Comment: Speci men Type: FLUID SPECIMENOrdering Facility: [facility] Address: [address] [place] [address] Result Comment: Gyne cologic Cytology Report Case: [id number] Authorizing Provider: Paola Hill APRN.CENTRAL SUPPLY ASSISTANT Collected: 11/30/2024 08:51 AM Ordering Location: OB/Gynecology Received: 12/01/2024 08:03 AM First Screen: Kelley, Briseida, CT, ASCP Specimen: Pap Test, ThinPrep, Cervix Performed By: #### L [id number] ####[facility] LABCLIA [id number] [place] [address] [place] CLINICAL HISTORY, CYTOLOGY, CLOTH HANDLER Routine Exam Normal [facility] Comment on above: Order Comment: Speci men Type: FLUID SPECIMENOrdering Facility: [facility] Address: [address] [place] [address] Performed By: #### L [id number] ####[facility] LABCLIA [id number] [place] [address] [place] FINAL PERFORMING LAB Normal [facility] Comment on above: Order Comment: Speci men Type: FLUID SPECIMENOrdering Facility: [facility] Address: [address] [place] [address] Result Comment: Tech nical component, freight separator screening performed at: [facility], [address] [place], [place] [id number] CLIA: [id number] Diagnostic interpretation performed at: [facility], [address] [place], [place] [address] CLIA# [id number] Environmental Aide: Haider Avalos MD Performed By: #### L [id number] ####[facility] LABCLIA [id number] [place] [address] [place] INTERPRETATION, CYTOLOGY, CLOTH HANDLER Normal [facility] Comment on above: Order Comment: Speci men Type: FLUID SPECIMENOrdering Facility: [facility] Address: [address] [place] [address] Result Comment: Nega tive for intraepithelial lesion or malignancy. at 1516 EDT Performed By: #### L [id number] ####[facility] LABCLIA [id number] [address] [place] [address] [place] LMP 09/11/2024 Normal [facility] Comment on above: Order Comment: Speci men Type: FLUID SPECIMENOrdering Facility: [facility] Address: [address] [place] [address] Performed By: #### L [id number] ####[facility] LABCLIA [id number] [facility] [address] [place] [address] [place] PAP DISCLAIMER COMMENT The Pap Smear is a screening test for cervical cancer. False negative results occur with all screening tests, emphasizing the need for rescreening at recommended intervals, and clinical correlation. Normal [facility] Comment on above: Order Comment: Speci men Type: FLUID SPECIMENOrdering Facility: [facility] Address: [address] [place] [address] Performed By: #### L [id number] ####[facility] LABCLIA [id number] [address] [place] [address] [place] PAP FUND RAISER COMMENT This specimen has been analyzed by the FDA-approved [employer]TM System, which uses digital imaging and an enhanced artificial intelligence image analysis algorithm to identify hernadez of interest on the microscopic slide, to assist the boiler helper and pathologist in evaluating cells on ThinPrep Pap tests. Following analysis, hernadez of interest on the microscopic slide selected by the algorithm are reviewed by a boiler helper. If a sample requires hierarchical review, the pathologist will review the same hernadez of interest selected by the algorithm prior to final interpretation. Normal [facility] Comment on above: Order Comment: Speci men Type: FLUID SPECIMENOrdering Facility: [facility] Address: [address] [place], [place] [id number] Performed By: #### L [id number] ####[facility] LABCLIA [id number] [facility] [address] [place] POC VOCATIONAL PSYCHOLOGIST ULTRASOUNDon 12-01-19 25 Indication Viability. Confirmation of [...] Read By: Paola Hill CNP MATERNAL MEDICINE [facility] Radiology Study observation (narrative) [facility]ICHOMONAS [facility]AL[facility]24 T. vaginalis DNA AQUILINO+probe Ql (Unsp spec) Not detected Normal Not detected [facility] Comment on above: Order Comment: Speci men Type: SWABOrdering Facility: [facility] Address: [address] [place] [address] Performed By: #### T RVAMP, [id number] ####[facility] LABCLIA [id number] [address] [place] Chasity 11-25-2024 AMERICO Telephone (OBGYWM) ---- BARBARA SCHWAB ([id number]) 4 F Date Time Provider Department 11/25/24 [...] Date Reviewed: 11/24/2024 Reviewed by: Yosi Payne APRN.CENTRAL SUPPLY ASSISTANT - Fully Assessed Prescriptions as of 12/14/2024 - aspirin, enteric coated (ECOTRIN LOW STRENGTH) 81 mg EC tablet Take 1 tablet by mouth once daily. - valACYclovir (VALTREX) 1 gram tablet Take 1 tablet by mouth as needed. - Ydadydtw-Vi-Tqq-Fe- FA tab Take 1 tablet by mouth once daily. - escitalopram oxalate (LEXAPRO) 10 mg tablet Take 10 mg by mouth once daily. Problem List As Of Date 11/25/2024 Noted Resolved High risk teen , antepartum [O09.899] 02/04/2019 08/12/2022 History of marijuana use [F12.91] 02/04/2019 Quit smoking [Z87.891] 02/04/2019 08/06/2019 History of depression [Z86.59] 02/04/2019 Family history of Grayling's disease [Z82.0] 02/04/2019 Patient request for diagnostic [...] Encounter Status:Closed by ERIK GALICIA on 12/14/24 [facility] CNOVon 11-24-2024 CNOV Office Visit (UCWSTR) ---- BARBARA SCHWAB ([id number]) 4 F Date Time Provider Department 11/24/24 10:15 AM YOSI PAYNE [facility] During your visit today, we recorded the following information about you: Temperature Pulse Respiration Blood pressure 98.2 degrees 89/minute 18/minute 118/72 Weight 47.7 kg Yosi Payne, MACIEL.CENTRAL SUPPLY ASSISTANT 11/24/2024 10:21 AM Signed [facility] [...] of care. This note was generated using Oversee software. It may contain errors in wording, punctuation, or spelling. Yosi Payne APRN.CENTRAL SUPPLY ASSISTANT History and Record Review Clinical information obtained from an independent historian. History obtained from or confirmed by: parent. External record(s) reviewed: prior outpatient record. Disposition The patient was discharged. OTC Medications were advised: Procedures Allergies As of Date: 11/24/2024 Noted Allergy Reaction ADHESIVE TAPE (ROSINS) 02/04/2014 2 - Rash LATEX 2 - Rash Date Reviewed: 11/24/2024 Reviewed by: Yosi Payne APRN.CENTRAL SUPPLY ASSISTANT - Fu (more content not included)... Normal [facility] CNOVon 11-14-2024 CNOV Office Visit (UCWSTR) ---- BARBARA SCHWAB ([id number]) 4 F Date Time Provider Department 11/14/24 1:15 PM [facility] During your visit today, we recorded the following information about you: Temperature Pulse Respiration Blood pressure 98.4 degrees 106/minute 16/minute 108/62 Weight 48.5 kg Ann Marie Ariza LAYER OFF.CENTRAL SUPPLY ASSISTANT 11/14/2024 1:36 PM Signed Subjective HPI HPI [...] advised tylenol/stretching - She was seen in [place] [facility] on 11.11.2024 with normal labs, negative [...] have confirmed and edited as necessary, the [facility] Review of Systems Constitutional: Negative for chills and fever. Musculoskeletal: Positive for back pain (right flank pain). Negative for joint pain and myalgias. Skin: Negative for itching and rash. All other systems reviewed and are negative. Objective Physical Exam History and Record Review External record(s) reviewed: prior labs/imaging and prior outpatient record. Findings from review of outpatient records: [place] [facility] on 11.11.2024 - negative for uti, labs normal Findings from review of prior labs/imaging: Previous Renal Function Panel Reviewed No results within last 365 days. Differential Diagnoses - musculoskeletal Recording using Live Life 360 software for draft documentation of the visit was discussed with the patient/authorized financial services sales representative; all questions welcomed and answered. Patient/authorized financial services sales representative agreed to proceed ASSESSMENT/PLAN: 1. [...] warranting prompt ER evaluation. Ann Marie Ariza APRN.CENTRAL SUPPLY ASSISTANT Referring Provider: SELF [200] Allergies As of Date: 11/14/2024 Noted Allergy Reaction ADHESIVE TAPE (ROSINS) 02/04/2014 2 - Rash LATEX 2 - Rash Date Reviewed: 11/14/2024 Reviewed by: Bel Monteiro MA - Fully Assessed Reason for Visit: Low Back Pain [126] Cmt: right side x 1 week Primary Visit Diagnosis:Acute midline low back pain without sciatica [M54.50] Order(s):US KIDNEY/BLADDER [2085007] Order #: [id number] FUTURE UA DIP, URINE (POC) [1943136] Order #: [id number]. #:[id number] Prescriptions as of 11/14/2024 - Yotifkpl-Kr-Uaz-Fe- FA tab Take 1 tablet by mouth [...] of depression [Z86.59] 02/04/2019 Family history of Grayling's disease [Z82.0] 02/04/2019 Patient request for diagnostic testing [Z01.89] 02/04/2019 08/06/2019 Anemia during in second trimester [O9*05/18/2019 08/06/2019 Threatened premature labor in third trimester [*06/18/2019 08/06/2019 del (more content not included)... Normal [facility] UA DIP, URINE (POC)on 2024 BILIRUBIN UA (POCT) Negative Negative [facility] CLARITY UA (POCT) Clear [facility] COLOR UA (POCT) Yellow [facility] GLUCOSE UA (POCT) Negative Negative mg/dL [facility] Hemoglobin Ql (U) Negative Negative [facility] KETONE UA (POCT) Negative Negative mg/dL [facility] LEUKOCYTES UA (POCT) Negative Negative [facility] NITRITE UA (POCT) Negative Negative [facility] PH UA (POCT) 7 4.5 - 8.0 [facility] Protein Ql (U) Negative Negative mg/dL [facility] SPECIFIC GRAVITY UA (POCT) 1.015 1.005 - 1.030 [facility] UROBILINOGEN UA (POCT) 0.2 Luz Maria l E.U./dL [facility] Location:[facility], [address] [place] [address], [place], [place], [id number] [place] [address] POINT OF CARE [facility] Absolute lymphocyte countOrd ered By: Michele Mar on 11-11-2024 Lymphocytes Auto (Unsp spec) [#/Vol] 2.04 10*3/uL 0.83-4.51 [facility] Absolute neutrophil countOrd ered By: Michele Mar on 11-11-2024 Neutrophils (Bld) [#/Vol] 8.4 10*3/uL High 2.0-7.7 [facility] Amphetamine detection with 1 000 ng/mL as cutoffOrdered By: Michele Mar on 11-11-2024 Amphetamines Screen method >1000 ng/mL Ql (U) Negative < 200 ng/mL [facility] Anion gap in Serum or Plasma Ordered By: Michele Mar on 11-11-2024 Anion gap [Moles/Vol] 10 mmol/L 5-15 [facility] Automated lymphocyte count a s percentage of total leukocytesOrdered By: Michele Mar on 11-11-2024 Lymphocytes/100 WBC Auto (Unsp spec) 18.5 % Low 19-41 [facility] BUN/creatinine ratioOrdered By: Michele Mar on 11-11-2024 Urea nitrogen/Creatinine [Mass ratio] 8.4 mg/mg Low 10-20 [facility] Basophil percentageOrdered B y: Michele Mar on 11-11-2024 Basophils/100 WBC (Bld) 0.5 % 0-1 [facility] Bilirubin Test strip Ql (U)O rdered By: Michele Mar on 11-11-2024 Bilirubin Ql (U) Negative Negative [facility] Bilirubin, totalOrdered By: Michele Mar on 11-11-2024 Bilirubin [Mass/Vol] 0.83 mg/dL 0.00-1.30 [facility] CBC W/Diff, Automatedon 05- Absolute Lymph 2.04 X10 3/uL Normal 0.83-4.51 [facility] Comment on above: Performed By: #### L 500.4050, L100.0100 #### [facility] [address] [place], [address] Absolute Neut 8.4 X10 3/uL High 2.0-7.7 [facility] Comment on above: Performed By: #### L 500.4050, L100.0100 #### [facility] [address] [place], [address] Basophils/100 WBC (Bld) 0.5 % Normal 0-1 [facility] Comment on above: Performed By: #### L 500.4050, L100.0100 #### [facility] [address] [place], [address] Eosinophils/100 WBC (Bld) 0.1 % Normal 0-5 [facility] Comment on above: Performed By: #### L 500.4050, L100.0100 #### [facility] [address] [place], [address] Erythrocyte distribution width (RBC) [Ratio] 13.2 % Normal 11.6-14.6 [facility] Comment on above: Performed By: #### L 500.4050, L100.0100 #### [facility] [address] [place], [address] Hematocrit (Bld) [Volume fraction] 37.9 % Normal 37-47 [facility] Comment on above: Performed By: #### L 500.4050, L100.0100 #### [facility] [address] [place], [address] Hemoglobin (Bld) [Mass/Vol] 12.9 g/dL Normal 12.0-15.0 [facility] Comment on above: Performed By: #### L 500.4050, L100.0100 #### [facility] [address] [place], [address] IG% 0.300 Normal 0.0-0.9 [facility] Comment on above: Result Comment: IG% - Immature Granulocytes (promyelocytes, myelocytes and metamyelocytes) > 1% indicates that a LEFT SHIFT is Present. Performed By: #### L 500.4050, L100.0100 #### [facility] [address] [place], [address] Lymphocytes/100 WBC (Bld) 18.5 % Low 19-41 [facility] Comment on above: Performed By: #### L 500.4050, L100.0100 #### [facility] [address] [place], [address] MCH (RBC) [Entitic mass] 30.5 pg Normal 27.0-32.0 [facility] Comment on above: Performed By: #### L 500.4050, L100.0100 #### [facility] [address] [place], [address] MCHC (RBC) [Mass/Vol] 34.0 g/dL Normal 32-36 [facility] Comment on above: Performed By: #### L 500.4050, L100.0100 #### [facility] [address] [place], [address] MCV (RBC) [Entitic vol] 89.6 fL Normal 81-99 [facility] Comment on above: Performed By: #### L 500.4050, L100.0100 #### [facility] [address] [place], [address] Monocytes/100 WBC (Bld) 4.2 % Normal 0-10 [facility] Comment on above: Performed By: #### L 500.4050, L100.0100 #### [facility] [address] [place], [address] Neutrophils/100 WBC (Bld) 76.4 % High 47-70 [facility] Comment on above: Performed By: #### L 500.4050, L100.0100 #### [facility] [address] [place], [address] Nucleated RBC (Bld) [#/Vol] 0 10*3/uL Normal 0-5 [facility] Comment on above: Performed By: #### L 500.4050, L100.0100 #### [facility] [address] [place], [address] Platelet mean volume (Bld) [Entitic vol] 10.9 fL Normal 6.2-12.0 [facility] Comment on above: Performed By: #### L 500.4050, L100.0100 #### [facility] [address] [place], [address] Platelets (Bld) [#/Vol] 279 10*3/uL Normal 150-450 [facility] Comment on above: Performed By: #### L 500.4050, L100.0100 #### [facility] [address] [place], [address] RBC (Bld) [#/Vol] 4.23 10*6/uL Normal 4.2-5.4 [facility] Comment on above: Performed By: #### L 500.4050, L100.0100 #### [facility] [address] [place], [address] RDW SD 43.1 fl Normal 35.1-43.9 [facility] Comment on above: Performed By: #### L 500.4050, L100.0100 #### [facility] [address] [place], [address] WBC (Bld) [#/Vol] 11.0 10*3/uL Normal 4.4-11.0 [facility] Comment on above: Performed By: #### L 500.4050, L100.0100 #### [facility] [address] [place], [address] Carbon dioxide, total [Moles /volume] in Central venous bloodOrdered By: Michele Mar on 11-11-2024 CO2 [Moles/Vol] 21.4 mmol/L 21.0-32.0 [facility] Chloride assayOrdered By: Angelito Mar on 11-11-2024 Chloride [Moles/Vol] 106 mmol/L 98-108 [facility] Comprehensive Metabolic Prof ilon 11-11-2024 Albumin [Mass/Vol] 4.5 g/dL Normal 3.5-5.0 [facility] Comment on above: Performed By: #### L 500.4050, L100.0100 #### [facility] [address] [place], [address] Albumin/Globulin [Mass ratio] 2.9 {ratio} High 0.9-2.4 [facility] Comment on above: Performed By: #### L 500.4050, L100.0100 #### [facility] [address] [place], [address] ALK PHOS 39 U/L Normal 35-104 [facility] Comment on above: Performed By: #### L 500.4050, L100.0100 #### [facility] [address] [place], [address] ALT [Catalytic activity/Vol] 6 U/L Normal <=34 [facility] Comment on above: Performed By: #### L 500.4050, L100.0100 #### [facility] [address] [place], [address] AST [Catalytic activity/Vol] 18 U/L Normal <=31 [facility] Comment on above: Performed By: #### L 500.4050, L100.0100 #### [facility] [address] [place], [address] Bilirubin [Mass/Vol] 0.83 mg/dL Normal 0.00-1.30 [facility] Comment on above: Performed By: #### L 500.4050, L100.0100 #### [facility] [address] [place], [address] BUN/CRE 8.4 RATIO Low 10-20 [facility] Comment on above: Performed By: #### L 500.4050, L100.0100 #### [facility] [address] [place], [address] Calcium [Mass/Vol] 8.8 mg/dL Normal 7.6-11.0 [facility] Comment on above: Performed By: #### L 500.4050, L100.0100 #### [facility] [address] [place], [address] Chloride [Moles/Vol] 106 mmol/L Normal 98-108 [facility] Comment on above: Performed By: #### L 500.4050, L100.0100 #### [facility] [address] [place], [address] CO2 [Moles/Vol] 21.4 mmol/L Normal 21.0-32.0 [facility] Comment on above: Performed By: #### L 500.4050, L100.0100 #### [facility] [address] [place], [address] Creatinine [Mass/Vol] 0.55 mg/dL Low 0.70-1.20 [facility] Comment on above: Performed By: #### L 500.4050, L100.0100 #### [facility] [address] [place], [address] ECRCL 121.32 ml/min Normal 50-250 [facility] Comment on above: Performed By: #### L 500.4050, L100.0100 #### [facility] [address] [place], [address] GAP 10 Normal 5-15 [facility] Comment on above: Performed By: #### L 500.4050, L100.0100 #### [facility] [address] [place], [address] GFR/1.73 sq M.predicted among non-blacks MDRD (S/P/Bld) [Vol rate/Area] 133 mL/min/{1.73_m2} Normal >60 [facility] Comment on above: Result Comment: mL/m in/1.73m2 CKD-EPI Creatinine Equation (2020) Performed By: #### L 500.4050, L100.0100 #### [facility] [address] [place], [address] Globulin (S) [Mass/Vol] 1.5 g/dL Low 2.2-4.2 [facility] Comment on above: Performed By: #### L 500.4050, L100.0100 #### [facility] [address] [place], [address] Glucose [Mass/Vol] 73 mg/dL Normal 70-99 [facility] Comment on above: Performed By: #### L 500.4050, L100.0100 #### [facility] [address] [place], [address] Potassium [Moles/Vol] 3.6 mmol/L Normal 3.3-5.1 [facility] Comment on above: Performed By: #### L 500.4050, L100.0100 #### [facility] [address] [place], [address] Sodium [Moles/Vol] 138 mmol/L Normal 133-145 [facility] Comment on above: Performed By: #### L 500.4050, L100.0100 #### [facility] [address] [place], [address] T PROT 6.1 g/dL Normal 5.9-8.4 [facility] Comment on above: Performed By: #### L 500.4050, L100.0100 #### [facility] [address] [place], [address] Urea nitrogen [Mass/Vol] 5 mg/dL Normal 4-19 [facility] Comment on above: Performed By: #### L 500.4050, L100.0100 #### [facility] [address] [place], [address] Emergency Department Summary on 11-11-2024 Emergency Department Summary [facility] Medical Records Department [address] [place] [address] Emergency Department Summary 11/11/24 MR#: [id number] Acct: [id number] Name: BARBARA SCHWAB Rep #: [id number] : 2000 24 From: Michele Mar MD [...] is 6 weeks gestation currently and sees ELECTRIC POWER LINE REPAIRER's at the [facility]. She and her state that an ultrasound [...] no dysuria or hematuria, unrelieved with Tylenol. [facility] Medical History IBS (irritable bowel syndrome) Depression GERD (gastroesophageal reflux disease) Home Medications ???Medication ???Instructions ???Recorded ???Last Taken ???Type Prilosec 1 tab PO PRN ACID REFLUX 06/26/19 05/01/21 06:30 History valacyclovir 1 gram tablet 1,000 mg PO DAILY PRN hsv 11/11/20 05/01/21 06:30 History (Valtrex) fhprjdmb-byi-Wq-FA 1 mg 1 tab PO DAILY 03/07/21 [...] weeks gestation. She will follow-up with her ELECTRIC POWER LINE REPAIRER. I feel she can be discharged safely home with follow-up. Return instructions were reviewed. Disposition is discharged home in stable condition. History Record Review Discussion w/independent historian: Patient Additional record(s) reviewed:: Prior ED visit (Noncontributory to current chief complaint) Lab Data Attestation: Tom santiago (more content not included)... Normal [facility] Eosinophil percentageOrdered By: Michele Mar on 11-11-2024 Eosinophils/100 WBC (Bld) 0.1 % 0-5 [facility] Erythrocyte distribution wid th ratioOrdered By: Michele Mar on 11-11-2024 Erythrocyte distribution width (RBC) [Ratio] 13.2 % 11.6-14.6 [facility] Erythrocyte distribution wid th standard deviationOrdered By: Michele Mar on 11-11-2024 Erythrocyte distribution width (RBC) [Ratio] 43.1 fl 35.1-43.9 [facility] Glomerular filtration rate ( GFR) estimation/1.73 sq m using serum, plasma, or whole bOrdered By: Michele Mar on 11-11-2024 GFR/1.73 sq M.predicted among non-blacks MDRD (S/P/Bld) [Vol rate/Area] 133 mL/min/{1.73_m2} >60 [facility] Comment on above: mL/min/1.73m2 CKD-EP I Creatinine Equation (2020) Hematocrit Auto (Bld) [Volum e fraction]Ordered By: Michele Mar on 11-11-2024 Hematocrit (Bld) [Volume fraction] 37.9 % 37-47 [facility] Hemoglobin measurementOrdere d By: Michele Mar on 11-11-2024 Hemoglobin (Bld) [Mass/Vol] 12.9 g/dL 12.0-15.0 [facility] Immature granulocytes/100 WB C Auto (Bld)Ordered By: Michele Mar on 11-11-2024 Immature granulocytes/100 WBC (Bld) 0.300 % 0.0-0.9 [facility] Comment on above: IG% - Immature Granu locytes (promyelocytes, myelocytes and metamyelocytes) > 1% indicates that a LEFT SHIFT is Present. Ketones Test strip Ql (U)Ord ered By: Michele Mar on 11-11-2024 Ketones Ql (U) 15 mg/dl High Negative [facility] Kidney and Bladderon 025 Kidney and Bladder [facility] Imaging Services [address] [place] [address] Kidney and Bladder MR#: [id number] Acct: [id number] Name: BARBARA SCHWAB Rep #: [id number] : 2000 F 24 From: Ru Sethi PCP: Dr. Melissa Cabezas MD Status: [facility] Study: Kidney and Bladder Date of Exam: 11/11/24 Exam# [id number] Ordering Dr: Michele Mar MD PROCEDURE: KIDNEY AND BLADDER 11/11/2024 REASON FOR EXAM: RIGHT FLANK PAIN TECHNIQUE: Bilateral renal ultrasound. COMPARISON: None. FINDINGS: Kidneys: No renal mass is seen Perry: No significant hydronephrosis is seen on either [...] 2. No evidence of hydronephrosis. Reading Location: [place] [address] CC: Dr. Michele Mar MD; Dr. Melissa Cabezas MD Licensed Physical Therapist: Signed Normal [facility] Laboratory - Chemistry and C hemistry - challengeOrdered By: Michele Mar on 11-11-2024 AST [Catalytic activity/Vol] 18 U/L <32 [facility] MCV (mean corpuscular volume ) determinationOrdered By: Michele Mar on 11-11-2024 MCV (RBC) [Entitic vol] 89.6 fL 81-99 [facility] Mean corpuscular hemoglobin (MCH) determinationOrdered By: Michele Mar on 11-11-2024 MCH (RBC) [Entitic mass] 30.5 pg 27.0-32.0 [facility] Mean corpuscular hemoglobin concentration (MCHC) determinationOrdered By: Michele Mar on 11-11-2024 MCHC (RBC) [Mass/Vol] 34.0 g/dL 32-36 [facility] Mean platelet volume determi nationOrdered By: Michele Mar on 11-11-2024 Platelet mean volume (Bld) [Entitic vol] 10.9 fL 6.2-12.0 [facility] Microscopic analysis of urin e for red blood cells (RBC)Ordered By: Michele Mar on 11-11-2024 Microscopic analysis of urine for red blood cells (RBC) 0-5 SEEN /hpf 0-5 [facility] Monocyte percentageOrdered B y: Michele Mar on 11-11-2024 Monocytes/100 WBC (Bld) 4.2 % 0-10 [facility] Mucus LM Ql (Urine sed)Order ed By: Michele Mar on 11-11-2024 Mucus Ql (Urine sed) 0 SEEN /hpf [facility] Neutrophil percentageOrdered By: Michele Mar on 11-11-2024 Neutrophils/100 WBC (Bld) 76.4 % High 47-70 [facility] Nitrite Test strip Ql (U)Ord ered By: Michele Mar on 11-11-2024 Nitrite Ql (U) Negative Negative [facility] No Panel InformationOrdered By: Michele Mar on 11-11-2024 Urine Buprenorphine Qualitative Negative < 200 ng/mL [facility] Urine Oxycodone Screen Negative < 100 ng/mL [facility] Nucleated red blood cell per centageOrdered By: Michele Mar on 11-11-2024 Nucleated RBC/100 WBC (Bld) [Ratio] 0 % 0-5 [facility] Platelet countOrdered By: Angelito Mar on 11-11-2024 Platelets (Bld) [#/Vol] 279 10*3/uL 150-450 [facility] Potassium measurement (mass/ volume)Ordered By: Michele Mar on 11-11-2024 Potassium (Unsp spec) [Mass/Vol] 3.6 mmol/L 3.3-5.1 [facility] Protein Test strip Ql (U)Ord ered By: Michele Mar on 11-11-2024 Protein Ql (U) Negative Negative [facility] Quantitative urine opiates m easurementOrdered By: Michele Mar on 11-11-2024 Opiates Ql (U) Negative < 300 ng/mL [facility] RBC Auto (Bld) [#/Vol]Ordere d By: Michele Mar on 11-11-2024 RBC (Bld) [#/Vol] 4.23 10*6/uL 4.2-5.4 [facility] Screening urine fentanyl laine surementOrdered By: Michele Mar on 11-11-2024 fentaNYL Screen Ql (U) Negative [facility] Serum creatinine measurement (mass/volume)Ordered By: Michele Mar on 11-11-2024 Creatinine [Mass/Vol] 0.55 mg/dL Low 0.70-1.20 [facility] Serum globulin measurementOr dered By: Michele Mar on 11-11-2024 Globulin (S) [Mass/Vol] 1.5 g/dL Low 2.2-4.2 [facility] Serum glucose measurement (m ass/volume)Ordered By: Michele Mar on 11-11-2024 Glucose [Mass/Vol] 73 mg/dL 70-99 [facility] Serum or plasma alanine tee otransferase (ALT) measurementOrdered By: Michele Mar on 11-11-2024 ALT [Catalytic activity/Vol] 6 U/L <35 [facility] Serum or plasma albumin xochitl urement (mass/volume)Ordered By: Michele Mar on 11-11-2024 Albumin [Mass/Vol] 4.5 g/dL 3.5-5.0 [facility] Serum or plasma albumin/glob ulin mass ratioOrdered By: Michele Mar on 11-11-2024 Albumin/Globulin [Mass ratio] 2.9 {ratio} High 0.9-2.4 [facility] Serum or plasma alkaline dee sphatase measurementOrdered By: Michele Mar on 11-11-2024 ALP [Catalytic activity/Vol] 39 U/L 35-104 [facility] Serum or plasma calcium xochitl urement (mass/volume)Ordered By: Michele Mar on 11-11-2024 Calcium [Mass/Vol] 8.8 mg/dL 7.6-11.0 [facility] Serum or plasma urea nitroge n measurement (mass/volume)Ordered By: Michele Mar on 11-11-2024 Urea nitrogen [Mass/Vol] 5 mg/dL 4-19 [facility] Sodium levelOrdered By: Michele Mar on 11-11-2024 Sodium [Moles/Vol] 138 mmol/L 133-145 [facility] Squamous epithelial cells de tection in urine sediment by light microscopyOrdered By: Michele Mar on 11-11-2024 Epithelial cells.squamous LM Ql (Urine sed) 0-5 SEEN /hpf 11-13 [facility] Total proteinOrdered By: Gertrudis Mar on 11-11-2024 Protein [Mass/Vol] 6.1 g/dL 5.9-8.4 [facility] Urinalysis, Completeon 11-11 EPI,SQUAMOUS 0-5 SEEN Normal - [facility] Comment on above: Order Comment: JASSON CTOR TO SPECIFY Performed By: #### L 400.0001 #### [facility] Laboratory [address] [place], [address] RBC 0-5 SEEN Normal 0-5 [facility] Comment on above: Order Comment: JASSON CTOR TO SPECIFY Performed By: #### L 400.0001 #### [facility] Laboratory [address] [place], [address] WBC 0-5 SEEN Normal 0-5 [facility] Comment on above: Order Comment: JASSON CTOR TO SPECIFY Performed By: #### L 400.0001 #### [facility] Laboratory [address] [place], [address] BACTERIA 0 SEEN Normal None Seen [facility] Comment on above: Order Comment: JASSON CTOR TO SPECIFY Performed By: #### L 400.0001 #### [facility] Laboratory [address] [place], [address] Mucus Ql (Urine sed) 0 SEEN Normal [facility] Comment on above: Order Comment: COLLE CTOR TO SPECIFY Performed By: #### L 400.0001 #### [facility] Laboratory [address] [place], [address] Urine Drug Screen (VISTA)on 11-11-2024 AMPHETAMINES Negative Normal <1000 ng/mL [facility] Comment on above: Performed By: #### L 505.5000 #### [facility] Laboratory [address] [place] [id number] BARBITIURATES Negative Normal < 200 ng/mL [facility] Comment on above: Performed By: #### L 505.5000 #### [facility] Laboratory [facility] [address] [place] [address] BENZODIAZIPINE Negative Normal < 200 ng/mL [facility] Comment on above: Performed By: #### L 505.5000 #### [facility] Laboratory [facility] [place] [address] BUP Ur Drug Scr Negative Normal < 200 ng/mL [facility] Comment on above: Performed By: #### L 505.5000 #### [facility] Laboratory [address] [place] [address] Ave. [place] [address] COCAINE Negative Normal < 300 ng/mL [facility] Comment on above: Performed By: #### L 505.5000 #### [facility] Laboratory [facility] [address] [place] [address] Fentanyl Negative Normal [facility] Comment on above: Performed By: #### L 505.5000 #### [facility] Laboratory [facility] [address] [place] [address] METHADONE Negative Normal < 300 ng/mL [facility] Comment on above: Performed By: #### L 505.5000 #### [facility] Laboratory [facility] [address] [facility] [address] OPIATES Negative Normal < 300 ng/mL [facility] Comment on above: Performed By: #### L 505.5000 #### [facility] Laboratory [address] [place] [address] OXYCODONE Negative Normal < 100 ng/mL [facility] Comment on above: Performed By: #### L 505.5000 #### [facility] Laboratory [address] [place] [address] PCP Negative Normal < 25 ng/mL [facility] Comment on above: Performed By: #### L 505.5000 #### [facility] Laboratory [address] [place] [address] THC Negative Normal < 50 ng/mL [facility] Comment on above: Performed By: #### L 505.5000 #### [facility] Laboratory [address] [place] [address] AMPHETAMINES Normal <1000 ng/mL [facility] Comment on above: Result Comment: Canc elled via OM: MD Ordered Performed By: #### L 505.5000 #### [facility] Laboratory [address] [place] [address] BARBITIURATES Normal < 200 ng/mL [facility] Comment on above: Result Comment: Canc elled via OM: MD Ordered Performed By: #### L 505.5000 #### [facility] Laboratory [address] [place] [address] BENZODIAZIPINE Normal < 200 ng/mL [facility] Comment on above: Result Comment: Canc elled via OM: MD Ordered Performed By: #### L 505.5000 #### [facility] Laboratory [address] [place] [address] BUP Ur Drug Scr Normal < 200 ng/mL [facility] Comment on above: Result Comment: Canc elled via OM: MD Ordered Performed By: #### L 505.5000 #### [facility] Laboratory [address] [place], [address] COCAINE Normal < 300 ng/mL [facility] Comment on above: Result Comment: Canc elled via OM: MD Ordered Performed By: #### L 505.5000 #### [facility] Laboratory [address] [place], [address] Fentanyl Normal [facility] Comment on above: Result Comment: Canc elled via OM: MD Ordered Performed By: #### L 505.5000 #### [facility] Laboratory [address] [place], [address] METHADONE Normal < 300 ng/mL [facility] Comment on above: Result Comment: Canc elled via OM: MD Ordered Performed By: #### L 505.5000 #### [facility] Laboratory [address] [place], [address] OPIATES Normal < 300 ng/mL [facility] Comment on above: Result Comment: Canc elled via OM: MD Ordered Performed By: #### L 505.5000 #### [facility] Laboratory [address] [place], [address] OXYCODONE Normal < 100 ng/mL [facility] Comment on above: Result Comment: Canc elled via OM: MD Ordered Performed By: #### L 505.5000 #### [facility] Laboratory [address] [place], [address] PCP Normal < 25 ng/mL [facility] Comment on above: Result Comment: Canc elled via OM: MD Ordered Performed By: #### L 505.5000 #### [facility] Laboratory [address] [place], [address] THC Normal < 50 ng/mL [facility] Comment on above: Result Comment: Canc elled via OM: MD Ordered Performed By: #### L 505.5000 #### [facility] Laboratory [address] [place], [address] Urine benzodiazepine levelOr dered By: Michele Mar on 11-11-2024 Benzodiazepines Ql (U) Negative < 200 ng/mL [facility] Urine clarityOrdered By: Gertrudis Mar on 11-11-2024 Clarity (U) Clear Clear [facility] Urine cocaine levelOrdered B y: Michele Mar on 11-11-2024 Cocaine Ql (U) Negative < 300 ng/mL [facility] Urine color determinationOrd ered By: Michele Mar on 11-11-2024 Color (U) Straw Yellow [facility] Urine nuufb-3-bljheqxeqaxpdt abinol (THC) measurementOrdered By: Michele Mar on 11-11-2024 Cannabinoids Screen Ql (U) Negative < 50 ng/mL [facility] Urine glucose detectionOrder ed By: Michele Mar on 11-11-2024 Glucose Ql (U) Normal mg/dl Normal [facility] Urine leukocyte esterase det ection by dipstickOrdered By: Michele Mar on 11-11-2024 Leukocyte esterase Test strip Ql (U) 25 /ul High Negative [facility] Urine pHOrdered By: Michele carr on 11-11-2024 pH (U) 6.5 [pH] 5.0 - 8.0 [facility] Urine phencyclidine (PCP) de tectionOrdered By: Michele Mar on 11-11-2024 Phencyclidine Ql (U) Negative < 25 ng/mL [facility] Urine sediment bacteria coun t by microscopy (number/high power field)Ordered By: Michele Mar on 11-11-2024 Bacteria LM.HPF (Urine sed) [#/Area] 0 /[HPF] None Seen [facility] Urine specific gravity measu rementOrdered By: Michele Mar on 11-11-2024 Specific gravity (U) [Rel density] 1.010 1.002-1.030 [facility] Urine urobilinogen measureme ntOrdered By: Michele Mar on 11-11-2024 Urobilinogen Ql (U) Normal mg/dl Normal [facility] White blood cell (WBC) count Ordered By: Michele Mar on 11-11-2024 WBC (Bld) [#/Vol] 11.0 10*3/uL 4.4-11.0 [facility] White blood cell countOrdere d By: Michele Mar on 11-11-2024 White blood cell count 0-5 SEEN /hpf 0-5 [facility] Examination level ultrasound on 11-10-2024 Indication dating, [...] Read By: Bobbi Howard M.D. 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 Encounter Diagnosis ICD-10-CM 1. History of ectopic Z87.59 2. Encounter for test, result positive (HCC) Z32.01 Please see report under imaging tab. Bobbi Howard MD November 10, 2024 8:54 AM Referring Provider: REJI DING [[id number]] Allergies As of Date: 11/09/2024 Noted Allergy Reaction ADHESIVE TAPE (ROSINS) 02/04/2014 2 - Rash LATEX 2 - Rash Date Reviewed: 11/08/2024 Reviewed by: Rufina Barron LPN - Fully Assessed Visit Diagnoses:History of ectopic [Z87.59] Encounter for test, result positive (HCC) [Z32.01] Order(s):OBSTETRIC ULTRASOUND WHI [[id number]] Order #: [id number]. #:[id number] -VIEWPOINTQty: 1 Prescriptions as of 11/10/2024 - Vsjuoyoh-Qq-Ssa-Fe- FA tab Take 1 tablet by mouth [...] Status:Closed by BOBBI HOWARD on 11/10/24 Normal [facility] Examination level ultrasound on 11-09-2024 Radiology Study observation (narrative) Marion Caruso 11-08-2024 CNOV Office Visit (UCWSTR) ---- BARBARA SCHWAB ([id number]) 4 F Date Time Provider Department 11/08/24 9:15 AM ALLEN WILSON During your visit today, we recorded the following information about you: Temperature Pulse Respiration Blood pressure 97.3 degrees 97/minute 18/minute 102/70 Weight 47.9 kg Allen Wilson APRN.CENTRAL SUPPLY ASSISTANT 11/08/2024 10:15 AM Signed [facility] [...] Laterality Date NONE SALPINGECTOMY Right 04/01/2024 laparoscopic, [facility] for ectopic ALLERGIES Adhesive Tape (Rosins) and Latex MEDICATIONS Jlhzkiel-Gk-Zkb-Fe- FA tab Take 1 tablet by mouth [...] Diabetes Maternal Grandmother Hypertension Maternal Grandmother other (Grayling's Disease) Maternal Grandmother Cancer Maternal Grandfather Lung [...] f/u for red flag symptoms Allen Wilson APRN.CENTRAL SUPPLY ASSISTANT History and Record Review External record(s) reviewed: [...] sciatica [M54.50] Prescriptions as of 11/08/2024 - Pdspmbax-Gr-Nam-Fe- FA tab Take 1 tablet by mouth once daily. - ondansetron orally disintegrating (ZOFRAN ODT) 4 mg disintegrating tablet Take (more content not included)... Normal [facility] B-HCG SerPl-aCncon 5 [place] [address].0 m[IU]/mL High <5.0 [facility] Comment on above: Order Comment: Zachery jin Type: BLOOD SPECIMENOrdering Facility: [facility] Address: [address] [place] [address] Result Comment: DESTIN TITATIVE HCG NORMAL RANGES Weeks of Gestation (Weeks Since LMP) 3 Weeks (5.8-71.2 mIU/mL) 4 Weeks (9.5-750 mIU/mL) 5 Weeks (217-7138 mIU/mL) 6 Weeks (158-86318 mIU/mL) 7 Weeks (3697-857275 mIU/mL) 8 Weeks (61172-582538 mIU/mL) 9 Weeks (10424-901995 mIU/mL) 10 Weeks (89348-055521 mIU/mL) 12 Weeks (18237-718066 mIU/mL) Referenced to 4th IS of [facility] Performed By: #### 2 1198-7 ####[facility] LABCLIA [id number] [place] [address] [place] B-HCG SerPl-aCncon 5 HCG.beta subunit Qn 612.8 m[IU]/mL High <5.0 [facility] Comment on above: Order Comment: Speci men Type: BLOOD SPECIMENOrdering Facility: [facility] Address: [address] [place] [address] Result Comment: DESTIN TITATIVE HCG NORMAL RANGES Weeks of Gestation (Weeks Since LMP) 3 Weeks (5.8-71.2 mIU/mL) 4 Weeks (9.5-750 mIU/mL) 5 Weeks (217-7138 mIU/mL) 6 Weeks (158-40661 mIU/mL) 7 Weeks (3697-675244 mIU/mL) 8 Weeks (02996-608614 mIU/mL) 9 Weeks (76710-929627 mIU/mL) 10 Weeks (91302-485593 mIU/mL) 12 Weeks (39506-221528 mIU/mL) Referenced to 4th IS of [facility] Performed By: #### 2 1198-7 ####[facility] LABCLIA [id number] [place] [address] [place] B-HCG SerPl-aCncon 5 HCG.beta subunit Qn 264.9 m[IU]/mL High <5.0 [facility] Comment on above: Order Comment: Speci men Type: BLOOD SPECIMENOrdering Facility: [facility] Address: [address] [place] [address] Result Comment: DESTIN TITATIVE HCG NORMAL RANGES Weeks of Gestation (Weeks Since LMP) 3 Weeks (5.8-71.2 mIU/mL) 4 Weeks (9.5-750 mIU/mL) 5 Weeks (217-7138 mIU/mL) 6 Weeks (158-50421 mIU/mL) 7 Weeks (3697-184176 mIU/mL) 8 Weeks (77640-472800 mIU/mL) 9 Weeks (29687-691605 mIU/mL) 10 Weeks (47087-553575 mIU/mL) 12 Weeks (29139-534265 mIU/mL) Referenced to 4th IS of [facility] Performed By: #### 2 1198-7 ####[facility] LABCLIA [id number] [place] [address] [place] B-HCG SerPl-aCncon 5 HCG.beta subunit Qn 89.4 m[IU]/mL High <5.0 Cl [facility] [place] [facility] Comment on above: Order Comment: Speci men Type: BLOOD SPECIMENOrdering Facility: [facility] Address: [address] [place] [address] Result Comment: DESTIN TITATIVE HCG NORMAL RANGES Weeks of Gestation (Weeks Since LMP) 3 Weeks (5.8-71.2 mIU/mL) 4 Weeks (9.5-750 mIU/mL) 5 Weeks (217-7138 mIU/mL) 6 Weeks (158-63062 mIU/mL) 7 Weeks (3697-864610 mIU/mL) 8 Weeks (91773-705986 mIU/mL) 9 Weeks (29969-170367 mIU/mL) 10 Weeks (57866-917010 mIU/mL) 12 Weeks (47125-488458 mIU/mL) Referenced to 4th IS of [facility] Performed By: #### 2 1198-7 ####[facility] LABCL[facility] [id number] [place] [address] [place] UA DIP,URINE HCG (POC)on Beta HCG ( test) Ql (U) Positive Abnormal Negative [facility] Comment on above: Location:[facility], [address] [place], [address] Interpretation and review of laboratory results Abnormal [facility] Capper Machine Operator (POCT) Internal QC OK [facility] Location:[facility], [address], [place], [place], [id number] [place] [address] POINT OF CARE [facility] CNOVon 10-14-2024 CNOV Office Visit (UCWSTR) ---- BARBARA SCHWAB ([id number]) 4 F Date Time Provider Department 10/14/24 8:45 AM NILDA CASTELLANOS UCWSTR During your visit today, we recorded the following information about you: Temperature Pulse Respiration Blood pressure 97.2 degrees 102/minute 18/minute 124/87 Weight Last Period 46 kg 10/11/24 Nilda Castellanos APRN.CENTRAL SUPPLY ASSISTANT 10/14/2024 9:21 AM Signed [facility] Subjective Barbara Schwab is a 24 year old adult. Patient presents with: Diarrhea: Vomiting, stomach pain x 4 days 24 year old adult with PMH GERD, IBS, depression, and anxiety presents for illness Acute onset 4 days ago Lower abdominal pain [place] like punched in stomach + emesis x [...] history is provided by the patient. No languages and literature instructor was used. Vomiting This is a new [...] Laterality Date NONE SALPINGECTOMY Right 04/01/2024 laparoscopic, [facility] for ectopic ALLERGIES Adhesive Tape (Rosins) and Latex MEDICATIONS busPIRone (BUSPAR) 10 mg tablet Take 10 mg by mouth three times a day. escitalopram oxalate (LEXAPRO) 10 mg tablet Take 10 mg by mouth once daily. PNV Comb.Hw89-Uujo,Carb onyl-FA 29 mg iron- 1 mg tab [...] (Patient not taking: Reported on 07/09/2023) vit 05-jozs-ovnfg-dha (PRENATE MINI, FERR ASP GLYCIN,) 18-1-350 mg cap Take 1 Dose by mouth once daily. (Patient not taking: Reported on 09/20/2023) FAMILY HISTORY Problem Relation Age of Onset Hypertension Mother other (insomnia) Mother other (fibromyalgia) Mother other (IBS) Mother Heart Attack Father Depression Sister No Known Problems Brother Diabetes Maternal Grandmother Hypertension Maternal Grandmother other (Grayling's Disease) Maternal Grandmother Cancer Maternal Grandfather Lung [...] for adenop (more content not included)... Normal [facility] CNOVon 08-24-2024 CNOV Office Visit (UCWSTR) ---- BARBARA SCHWAB ([id number]) 4 F Date Time Provider Department 08/24/24 11:00 AM NILDA CASTELLANOS [facility] During your visit today, we recorded the following information about you: Temperature Pulse Respiration Blood pressure 97.3 degrees 118/minute 20/minute 112/70 Weight 44.8 kg Nilda Castellanos, LAYER OFF.CENTRAL SUPPLY ASSISTANT 08/24/2024 11:39 AM Signed This note was created using [employer] OWNERS ADVANTAGEriter. Subjective Barbara Schwab is a 24 year old adult. 24 year old female with no significant PMH presents for illness. Acute onset 5 days ago +nausea +sore throat +diarrhea +body aches +headache +chills Denies CP Denies dyspnea Denies emesis Denies hemoptysis Used Tylenol +vapes, tobacco The history is provided by the patient. No languages and literature instructor was used. SHARLENE Flower complains of cough. [...] Laterality Date NONE SALPINGECTOMY Right 04/01/2024 laparoscopic, [facility] for ectopic ALLERGIES Adhesive Tape (Rosins) and [...] 10 mg by mouth once daily. PNV Comb.Ja38-Pzhv,Carb onyl-FA 29 mg iron- 1 mg tab [...] (Patient not taking: Reported on 07/09/2023) vit 50-xcxh-jdgkc-dha (PRENATE MINI, FERR ASP GLYCIN,) 18-1-350 mg [...] for arth (more content not included)... Normal [facility] STREP A MOLECULAR (POC)on Procedural Control Valid [facility] Strep A (POCT) Negative Negative [facility] UA DIP,URINE HCG (POC)on Beta HCG ( test) Ql (U) Negative Negative [facility] Comment on above: Location:[facility], [address], [place], [address] Capper Machine Operator (POCT) Internal QC [facility] Location:[facility], [address], [place], [place], [address] [facility] POINT OF CARE [facility] CBC panel Auto (Bld)on 03-26 Erythrocyte distribution width (RBC) [Ratio] 12.4 % 11.5 - 15.0 % [facility] Hematocrit (Bld) [Volume fraction] 39.4 % 39.0 - 51.0 % [facility] Hemoglobin (Bld) [Mass/Vol] 13.3 g/dL 13.0 - 17.0 g/dL [facility] Interpretation and review of laboratory results Normal [facility] MCH (RBC) [Entitic mass] 30.6 pg 26. 0 - 34.0 pg [facility] MCHC (RBC) [Mass/Vol] 33.8 g/dL 30.5 - 36.0 g/dL [facility] MCV (RBC) [Entitic vol] 90.6 fL 80.0 - 100.0 fL [facility] Nucleated RBC (Bld) [#/Vol] NINF [facility] Platelet mean volume (Bld) [Entitic vol] 11.1 fL 9.0 - 12.7 fL [facility] Platelets (Bld) [#/Vol] 261 10*3/uL [facility] Comment on above: No clot detected. RBC (Bld) [#/Vol] 4.35 10*6/uL 4.20 - 6.0 0 m/uL [facility] WBC (Bld) [#/Vol] 8.20 10*3/uL [facility] UA DIP,URINE HCG (POC)on Beta HCG ( test) Ql (U) Positive Abnormal Negative [facility] Comment on above: Location:[facility], [address], [place], [address] Interpretation and review of laboratory results Abnormal [facility] Capper Machine Operator (POCT) Internal QC OK [facility] Location:[facility], [address], [place], [place], [id number] [place] [address] POINT OF CARE [facility] EMG(NEURO/NI)on 03-19-2024 Results can be seen in attached scanned documents. If you are a patient reviewing this test result, call the doctor who ordered the test with any questions. [facility] Absolute lymphocyte countOrd ered By: Eze Norman on 10-09-2023 Lymphocytes Auto (Unsp spec) [#/Vol] 2.11 10*3/uL 0.83-4.51 [facility] Automated lymphocyte count a s percentage of total leukocytesOrdered By: Eze Norman on 10-09-2023 Lymphocytes/100 WBC Auto (Unsp spec) 34.8 % 19-41 [facility] Basophil percentageOrdered B y: Eze Norman on 10-09-2023 Basophil percentage 0 SEEN /hpf 0-5 [facility] Basophils/100 WBC (Bld) 0.7 % 0-1 [facility] Bilirubin [Mass/Vol] 0.70 mg/dL 0.20-1.00 [facility] Comment on above: For patients on eltr ombopag therapy, use of Dim[place] TBIL is not recommended. Chloride [Moles/Vol] 111 mmol/L 98-107 [facility] Eosinophils/100 WBC (Bld) 1.0 % 0-5 [facility] Glucose [Mass/Vol] 85 mg/dL 74-106 [facility] Hemoglobin (Bld) [Mass/Vol] 13.0 g/dL 12.0-15.0 [facility] Monocytes/100 WBC (Bld) 6.3 % 0-10 [facility] Neutrophils (Bld) [#/Vol] 3.5 10*3/uL 2.0-7.7 [facility] Neutrophils/100 WBC (Bld) 57.0 % 47-70 [facility] Potassium [Moles/Vol] 4.0 mmol/L 3.5-5.1 [facility] Protein [Mass/Vol] 6.8 g/dL 6.4-8.2 [facility] Sodium [Moles/Vol] 141 mmol/L 136-145 [facility] WBC (Bld) [#/Vol] 6.1 10*3/uL 4.4-11.0 [facility] Bilirubin Test strip Ql (U)O rdered By: Eze Norman on 10-09-2023 Bilirubin Ql (U) Negative Negative [facility] Determination of erythrocyte mean corpuscular volume (MCV)Ordered By: Eze Norman on 10-09-2023 MCV (RBC) [Entitic vol] 90.8 fL 81-99 [facility] Erythrocyte distribution wid th ratioOrdered By: Eze Norman on 10-09-2023 Erythrocyte distribution width (RBC) [Ratio] 12.5 % 11.6-14.6 [facility] Erythrocyte distribution wid th standard deviationOrdered By: Eze Norman on 10-09-2023 Erythrocyte distribution width (RBC) [Entitic vol] 41.5 fL 35.1-43.9 [facility] Hematocrit Auto (Bld) [Volum e fraction]Ordered By: Eze Norman on 10-09-2023 Hematocrit (Bld) [Volume fraction] 39.3 % 37-47 [facility] Immature granulocytes/100 WB C Auto (Bld)Ordered By: Eze Norman on 10-09-2023 Immature granulocytes/100 WBC (Bld) 0.200 % 0.0-0.9 [facility] Comment on above: IG% - Immature Granu locytes (promyelocytes, myelocytes and metamyelocytes) > 1% indicates that a LEFT SHIFT is Present. Ketones Test strip Ql (U)Ord ered By: Eze Norman on 10-09-2023 Ketones Ql (U) Negative Negative [facility] Laboratory - Chemistry and C hemistry - challengeOrdered By: Eze Norman on 10-09-2023 HCG ( test) Ql (U) Negative [facility] Comment on above: Very dilute urine sp ecimens, as indicated by a low specificgravity, may not contain financial services sales representative levels of hCG. If is still suspected, a first morning urinespecimen should be collected 48 hours later and tested. Albumin/Globulin [Mass ratio] 1.4 {ratio} 0.9-2.4 [facility] ALP [Catalytic activity/Vol] 39 U/L 45-117 [facility] ALT [Catalytic activity/Vol] 13 U/L 13-56 [facility] CO2 [Moles/Vol] 26.0 mmol/L 21.0-32.0 [facility] Globulin (S) [Mass/Vol] 2.8 g/dL 2.2-4.2 [facility] Lipase [Catalytic activity/Vol] 15 U/L 13-75 [facility] Comment on above: Please note:LIPASE r evised reference range effective 22. New Lipase methodology. Expected to produce lower values than the previous assay method. NEW Reference Range: 13 - 75 U/L Urea nitrogen/Creatinine [Mass ratio] 7.8 mg/mg 10-20 [facility] Laboratory - Hematology and Cell countsOrdered By: Eze Norman on 10-09-2023 MCH (RBC) [Entitic mass] 30.0 pg 27.0-32.0 [facility] MCHC (RBC) [Mass/Vol] 33.1 g/dL 32-36 [facility] Nucleated RBC/100 WBC (Bld) [Ratio] 0 % 0-5 [facility] Platelet mean volume (Bld) [Entitic vol] 10.8 fL 6.2-12.0 [facility] Platelets (Bld) [#/Vol] 239 10*3/uL 150-450 [facility] Laboratory - Microbiology an d Antimicrobial susceptibilityOrdered By: Eze Norman on 10-09-2023 SARS-CoV-2 (COVID-19) RNA AQUILINO+probe Ql (Unsp spec) [facility] Mucus LM Ql (Urine sed)Order ed By: Eze Norman on 10-09-2023 Mucus Ql (Urine sed) 0 SEEN /hpf [facility] Nitrite Test strip Ql (U)Ord ered By: Eze Norman on 10-09-2023 Nitrite Ql (U) Negative Negative [facility] No Panel InformationOrdered By: Eze Norman on 10-09-2023 Urine RBC 0-5 SEEN /hpf 0-5 [facility] Estimated Creatinine Clearance Calc 103.55 ml/min [facility] Estimated GFR (MDRD) Amer 150 mL/min >60 [facility] Comment on above: GFR Calc Estimated GFR (MDRD) Non-Af Amer 124 mL/min >60 [facility] Comment on above: Non- GFR Calc Protein Test strip Ql (U)Ord ered By: Eze Norman on 10-09-2023 Protein Ql (U) Negative Negative [facility] RBC Auto (Bld) [#/Vol]Ordere d By: Eze Norman on 10-09-2023 RBC (Bld) [#/Vol] 4.33 10*6/uL 4.2-5.4 [facility] Serum or plasma calcium xochitl urement (mass/volume)Ordered By: Eze Norman on 10-09-2023 Calcium [Mass/Vol] 8.6 mg/dL 8.5-10.1 [facility] Serum or plasma creatinine m easurement (mass/volume)Ordered By: Eze Norman on 10-09-2023 Creatinine [Mass/Vol] 0.64 mg/dL 0.55-1.02 [facility] Comment on above: The validity of the calculated GFR & GFRAA in patients over 70 years has not been determined. Clinical correlation is essential. Serum or plasma urea nitroge n measurement (mass/volume)Ordered By: Eze Norman on 10-09-2023 Urea nitrogen [Mass/Vol] 5 mg/dL 7-18 [facility] Squamous epithelial cells de tection in urine sediment by light microscopyOrdered By: Eze Norman on 10-09-2023 Epithelial cells.squamous LM Ql (Urine sed) 0-5 SEEN /hpf 5-10 [facility] Thin prep Papanicolaou smear with manual screeningOrdered By: Eze Norman on 10-09-2023 Thin prep Papanicolaou smear with manual screening 4.0 g/dL 3.2-5.0 [facility] Thin prep Papanicolaou smear with manual screening 10 U/L 15-37 [facility] Thin prep Papanicolaou smear with manual screening 4 5-15 [facility] Urine blood detectionOrdered By: Eze Norman on 10-09-2023 RBC Ql (U) 25 /ul Negative [facility] Urine clarityOrdered By: Romulo Normna on 10-09-2023 Clarity (U) Sl. Cloudy Clear [facility] Urine color determinationOrd ered By: Eze Norman on 10-09-2023 Color (U) Yellow Yellow [facility] Urine glucose detectionOrder ed By: Eze Norman on 10-09-2023 Glucose Ql (U) Normal mg/dl Normal [facility] Urine leukocyte esterase det ection by dipstickOrdered By: Eze Norman on 10-09-2023 Leukocyte esterase Test strip Ql (U) Negative Negative [facility] Urine pHOrdered By: Eze newby on 10-09-2023 pH (U) 7.0 [pH] 5.0 - 8.0 [facility] Urine sediment bacteria coun t by microscopy (number/high power field)Ordered By: Eze Norman on 10-09-2023 Bacteria LM.HPF (Urine sed) [#/Area] 0 /[HPF] None Seen [facility] Urine specific gravity measu rementOrdered By: Eze Norman on 10-09-2023 Specific gravity (U) [Rel density] 1.010 1.002-1.030 [facility] Urine urobilinogen measureme ntOrdered By: Eze Norman on 10-09-2023 Urobilinogen Ql (U) Normal mg/dl Normal [facility] UA DIP, URINE (POC)on 2023 BILIRUBIN UA (POCT) Moderate Abnormal Negative [facility] CLARITY UA (POCT) Slightly Cloudy [facility] COLOR UA (POCT) Red [facility] GLUCOSE UA (POCT) 250 mg/dL Abnormal Negative mg/dL [facility] Hemoglobin Ql (U) Trace-intact Abnormal Negative [facility] KETONE UA (POCT) 15 mg/dL Abnormal Negative mg/dL [facility] LEUKOCYTES UA (POCT) Large Abnormal Negative [facility] NITRITE UA (POCT) Positive Abnormal Negative [facility] PH UA (POCT) 5.0 4.5 - 8.0 [facility] Protein Ql (U) >=300 Abnormal Negative mg/dL [facility] SPECIFIC GRAVITY UA (POCT) <=1.005 Abnormal 1.005 - 1.030 [facility] UROBILINOGEN UA (POCT) >=8.0 Abnormal [facility] E.U./dL [facility] UA DIP, URINE (POC)on 2022 BILIRUBIN UA (POCT) Negative Negative [facility] CLARITY UA (POCT) Cloudy [facility] COLOR UA (POCT) Yellow [facility] GLUCOSE UA (POCT) Negative Negative mg/dL [facility] Hemoglobin Ql (U) Large Abnormal Negative [facility] KETONE UA (POCT) Negative Negative mg/dL [facility] LEUKOCYTES UA (POCT) Moderate Abnormal Negative [facility] NITRITE UA (POCT) Negative Negative [facility] PH UA (POCT) 5.5 4.5 - 8.0 [facility] Protein Ql (U) 30 mg/dL Abnormal Negative mg/dL [facility] SPECIFIC GRAVITY UA (POCT) 1.010 1.005 - 1.030 [facility] UROBILINOGEN UA (POCT) 0.2 E.U./dL [facility] E.U./dL [facility] US FEMALE PELVIS TRANSVAGon 02-06-2023 [facility] CBC W Auto Differential pane l (Bld)on 01-30-2023 Basophils (Bld) [#/Vol] 0.04 10*3/uL <0.11 k/uL [facility] Basophils/100 WBC (Bld) 0.5 % [facility] Differential cell count method Nom (Bld) Auto [facility] Eosinophils (Bld) [#/Vol] 0.06 10*3/uL <0.46 k/uL [facility] Eosinophils/100 WBC (Bld) 0.7 % [facility] Erythrocyte distribution width (RBC) [Ratio] 12.5 % 11.5 - 15.0 % [facility] Hematocrit (Bld) [Volume fraction] 41.1 % 39.0 - 51.0 % [facility] Hemoglobin (Bld) [Mass/Vol] 13.7 g/dL 13.0 - 17.0 g/dL [facility] Immature granulocytes (Bld) [#/Vol] <0.10 k/uL [facility] Immature granulocytes/100 WBC (Bld) 0.2 % [facility] Lymphocytes (Bld) [#/Vol] 2.63 10*3/uL 1.00 - 4.00 k/uL [facility] Lymphocytes/100 WBC (Bld) 29.6 % [facility] MCH (RBC) [Entitic mass] 29.5 pg 26. 0 - 34.0 pg [facility] MCHC (RBC) [Mass/Vol] 33.3 g/dL 30.5 - 36.0 g/dL [facility] MCV (RBC) [Entitic vol] 88.6 fL 80.0 - 100.0 fL [facility] Monocytes (Bld) [#/Vol] 0.46 10*3/uL <0.87 k/uL [facility] Monocytes/100 WBC (Bld) 5.2 % [facility] Neutrophils (Bld) [#/Vol] 5.67 10*3/uL 1.45 - 7.50 k/uL [facility] Neutrophils/100 WBC (Bld) 63.8 % [facility] Nucleated RBC (Bld) [#/Vol] <0.01 k/uL [facility] Nucleated RBC/100 WBC (Bld) [Ratio] 0.0 /100 WBC [facility] Platelet mean volume (Bld) [Entitic vol] 10.6 fL 9.0 - 12.7 fL [facility] Platelets (Bld) [#/Vol] 256 10*3/uL 150 - 400 k/uL [facility] RBC (Bld) [#/Vol] 4.64 10*6/uL 4.20 - 6.0 0 m/uL [facility] WBC (Bld) [#/Vol] 8.88 10*3/uL 3.70 - 11. 00 k/uL [facility] HCG QUAL UR B/Oon 01-30-2023 status Negative neg - pos [facility] Quality Check Yes [facility] HCG QUAL UR B/Oon 01-16-2023 status Negative neg - pos [facility] Quality Check Yes [facility] Absolute lymphocyte countOrd ered By: Jonathan Rush on 01-01-2023 Lymphocytes Auto (Unsp spec) [#/Vol] 3.24 10*3/uL 0.83-4.51 [facility] Basophil percentageOrdered B y: Jonathan Rush on 01-01-2023 Basophils/100 WBC (Bld) 0.3 % 0-1 [facility] Bilirubin [Mass/Vol] 0.30 mg/dL 0.20-1.00 [facility] Comment on above: For patients on eltr ombopag therapy, use of [place] TBIL is not recommended. Chloride [Moles/Vol] 107 mmol/L 98-107 [facility] Eosinophils/100 WBC (Bld) 0.3 % 0-5 [facility] Glucose [Mass/Vol] 87 mg/dL 74-106 [facility] Neutrophils (Bld) [#/Vol] 7.5 10*3/uL 2.0-7.7 [facility] Neutrophils/100 WBC (Bld) 65.6 % 47-70 [facility] Potassium [Moles/Vol] 3.3 mmol/L 3.5-5.1 [facility] Protein [Mass/Vol] 7.2 g/dL 6.4-8.2 [facility] Sodium [Moles/Vol] 139 mmol/L 136-145 [facility] WBC (Bld) [#/Vol] 11.5 10*3/uL 4.4-11.0 [facility] Basophil percentage 25-50 SEEN /hpf 0-5 [facility] Beta hCG serum qualOrdered B y: Jonathan Rush on 01-01-2023 Beta HCG ( test) Ql Negative [facility] Bilirubin Test strip Ql (U)O rdered By: Jnoathan Rush on 01-01-2023 Bilirubin Ql (U) Negative Negative [facility] Blood erythrocytes count (nu mber/volume)Ordered By: Jonathan Rush on 01-01-2023 RBC (Bld) [#/Vol] 4.41 10*6/uL 4.2-5.4 [facility] Blood hemoglobin measurement (mass/volume)Ordered By: Jonathan Rush on 01-01-2023 Hemoglobin (Bld) [Mass/Vol] 13.4 g/dL 12.0-15.0 [facility] Blood lymphocytes/100 leukoc ytesOrdered By: Jonathan Rush on 01-01-2023 Lymphocytes/100 WBC (Bld) 28.3 % 19-41 [facility] Blood monocytes/100 leukocyt esOrdered By: Jonathan Rush on 01-01-2023 Monocytes/100 WBC (Bld) 4.5 % 0-10 [facility] Blood platelet mean volumeOr dered By: oJnathan Rush on 01-01-2023 Platelet mean volume (Bld) [Entitic vol] 10.5 fL 6.2-12.0 [facility] Determination of erythrocyte mean corpuscular volume (MCV)Ordered By: Jonathan Rush on 01-01-2023 MCV (RBC) [Entitic vol] 89.8 fL 81-99 [facility] Hematocrit Auto (Bld) [Volum e fraction]Ordered By: Jonathan Rush on 01-01-2023 Hematocrit (Bld) [Volume fraction] 39.6 % 37-47 [facility] Ketones Test strip Ql (U)Ord ered By: Jonathan Rush on 01-01-2023 Ketones Ql (U) Negative Negative [facility] Laboratory - Chemistry and C hemistry - challengeOrdered By: Jonathan Rush on 01-01-2023 ALP [Catalytic activity/Vol] 42 U/L 45-117 [facility] ALT [Catalytic activity/Vol] 13 U/L 13-56 [facility] CO2 [Moles/Vol] 27.0 mmol/L 21.0-32.0 [facility] Globulin (S) [Mass/Vol] 3.1 g/dL 2.2-4.2 [facility] Urea nitrogen/Creatinine [Mass ratio] 12.6 mg/mg 10-20 [facility] Laboratory - Hematology and Cell countsOrdered By: Jonathan Rush on 01-01-2023 Erythrocyte distribution width (RBC) [Entitic vol] 43.3 fL 35.1-43.9 [facility] Erythrocyte distribution width (RBC) [Ratio] 13.1 % 11.6-14.6 [facility] Immature granulocytes/100 WBC (Bld) 1.000 % 0.0-0.9 [facility] Comment on above: IG% - Immature Granu locytes (promyelocytes, myelocytes and metamyelocytes) > 1% indicates that a LEFT SHIFT is Present. MCH (RBC) [Entitic mass] 30.4 pg 27.0-32.0 [facility] Nucleated RBC/100 WBC (Bld) [Ratio] 0 % 0-5 [facility] MCHC Auto (RBC) [Mass/Vol]Or dered By: Jonathan Rush on 01-01-2023 MCHC (RBC) [Mass/Vol] 33.8 g/dL 32-36 [facility] Mucus LM Ql (Urine sed)Order ed By: Jonathan Rush on 01-01-2023 Mucus Ql (Urine sed) 0 SEEN /hpf [facility] Nitrite Test strip Ql (U)Ord ered By: Jonathan Rush on 01-01-2023 Nitrite Ql (U) Negative Negative [facility] No Panel InformationOrdered By: Jonathan Rush on 01-01-2023 Estimated Creatinine Clearance Calc 96.02 ml/min [facility] Estimated GFR (MDRD) Amer 133 mL/min >60 [facility] Comment on above: GFR Calc Estimated GFR (MDRD) Non-Af Amer 110 mL/min >60 [facility] Comment on above: Non- GFR Calc Platelets bldOrdered By: Edward Rush on 01-01-2023 Platelets (Bld) [#/Vol] 245 10*3/uL 150-450 [facility] Protein Test strip Ql (U)Ord ered By: Jonathan Rush on 01-01-2023 Protein Ql (U) 30 mg/dl Negative [facility] Serum or plasma albumin xochitl urement (mass/volume)Ordered By: Jonathan Rush on 01-01-2023 Albumin [Mass/Vol] 4.1 g/dL 3.2-5.0 [facility] Serum or plasma albumin/glob ulin mass ratioOrdered By: Jonathan Rush on 01-01-2023 Albumin/Globulin [Mass ratio] 1.3 {ratio} 0.9-2.4 [facility] Serum or plasma calcium xochitl urement (mass/volume)Ordered By: Jonathan Rush on 01-01-2023 Calcium [Mass/Vol] 8.9 mg/dL 8.5-10.1 [facility] Serum or plasma creatinine m easurement (mass/volume)Ordered By: Jonathan Rush on 01-01-2023 Creatinine [Mass/Vol] 0.72 mg/dL 0.55-1.02 [facility] Comment on above: The validity of the calculated GFR & GFRAA in patients over 70 years has not been determined. Clinical correlation is essential. Serum or plasma urea nitroge n measurement (mass/volume)Ordered By: Jonathan Rush on 01-01-2023 Urea nitrogen [Mass/Vol] 9 mg/dL 7-18 [facility] Squamous epithelial cells de tection in urine sediment by light microscopyOrdered By: Jonathan Rush on 01-01-2023 Epithelial cells.squamous LM Ql (Urine sed) 0-5 SEEN /hpf 5-10 [facility] Thin prep Papanicolaou smear with manual screeningOrdered By: Jonathan Rush on 01-01-2023 Thin prep Papanicolaou smear with manual screening 8 U/L 15-37 [facility] Thin prep Papanicolaou smear with manual screening 5 5-15 [facility] Urine blood detectionOrdered By: Jonathan Rush on 01-01-2023 RBC Ql (U) 10 /ul Negative [facility] RBC Ql (U) 0-5 SEEN /hpf 0-5 [facility] Urine clarityOrdered By: Edward Rush on 01-01-2023 Clarity (U) Sl. Cloudy Clear [facility] Urine color determinationOrd ered By: Jonathan Rush on 01-01-2023 Color (U) Yellow Yellow [facility] Urine glucose detectionOrder ed By: Jonathan Rush on 01-01-2023 Glucose Ql (U) Normal mg/dl Normal [facility] Urine leukocyte esterase det ection by dipstickOrdered By: Jonathan Rush on 01-01-2023 Leukocyte esterase Test strip Ql (U) 100 /ul Negative [facility] Urine pHOrdered By: Jonathan Anthony ght on 01-01-2023 pH (U) 6.5 [pH] 5.0 - 8.0 [facility] Urine sediment bacteria coun t by microscopy (number/high power field)Ordered By: Jonahtan Rush on 01-01-2023 Bacteria LM.HPF (Urine sed) [#/Area] RARE /hpf None Seen [facility] Urine specific gravity measu rementOrdered By: Jonathan Rush on 01-01-2023 Specific gravity (U) [Rel density] 1.015 1.002-1.030 [facility] Urobilinogen Auto test strip Ql (U)Ordered By: Jonathan Rush on 01-01-2023 Urobilinogen Ql (U) Normal mg/dl Normal [facility] Influenza virus A and B RNA and SARS-CoV-2 (COVID-19) N gene panel AQUILINO+probe (Resp)on 12-26-2022 FLUAV RNA AQUILINO+probe Ql (Unsp spec) Not detected Not Detected [facility] FLUBV RNA AQUILINO+probe Ql (Unsp spec) Not detected Not Detected [facility] SARS-CoV-2 (COVID-19) RNA AQUILINO+probe Ql (Resp) Not detected See comment [facility] STREP A MOLECULAR (POC)on Procedural Control Valid [facility] Strep A (POCT) Positive Abnormal Negative [facility] UA DIP, URINE (POC)on 2021 BILIRUBIN UA (POCT) Small Abnormal Negative [facility] CLARITY UA (POCT) Cloudy [facility] COLOR UA (POCT) Dark yellow [facility] GLUCOSE UA (POCT) Negative Negative mg/dL [facility] HEMOGLOBIN/BLOOD UA (POCT) Small Abnormal Negative [facility] KETONE UA (POCT) Negative Negative mg/dL [facility] LEUKOCYTES UA (POCT) Negative Negative [facility] NITRITE UA (POCT) Negative Negative [facility] PH UA (POCT) 6.0 4.5 - 8.0 [facility] Protein Ql (U) >=300 Abnormal Negative mg/dL [facility] SPECIFIC GRAVITY UA (POCT) >=1.030 1.005 - 1.030 [facility] UROBILINOGEN UA (POCT) 0.2 E.U./dL [facility] E.U./dL [facility] UA DIP, URINE (POC)on 2021 BILIRUBIN UA (POCT) Negative Negative [facility] CLARITY UA (POCT) Cloudy [facility] COLOR UA (POCT) Other [facility] GLUCOSE UA (POCT) Negative Negative mg/dL [facility] HEMOGLOBIN/BLOOD UA (POCT) Trace-lysed Abnormal Negative [facility] KETONE UA (POCT) Negative Negative mg/dL [facility] LEUKOCYTES UA (POCT) Moderate Abnormal Negative [facility] NITRITE UA (POCT) Negative Negative [facility] PH UA (POCT) 8.0 4.5 - 8.0 [facility] Protein Ql (U) 100 mg/dL Abnormal Negative mg/dL [facility] SPECIFIC GRAVITY UA (POCT) 1.020 1.005 - 1.030 [facility] UROBILINOGEN UA (POCT) 0.2 E.U./dL [facility] E.U./dL [facility] No Panel Informationon 12-28 Radiology Study observation (narrative) [facility] XR Ankle - left AP and Later al and obliqueon 12-28-2021 IMPRESSION: Soft tissue swelling along the lateral malleolus. Licensed Physical Therapist: CARROLL Transcribe Date/Time: Dec 28 2021 1:04P [...] lateral malleolus. KEY_DO_NOT_USE _DIVISION OF RADIOLOGY Provider, [facility] [place] - 12/28/2021 * * *Final Report* * [...] Soft tissue swelling along the lateral malleolus. Licensed Physical Therapist: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 pressure 68 mm[Hg] Kamilla Porter MD Work Phone: [facility] 12-28-2024 10:07-0400 Systolic blood pressure 92 mm[Hg] Kamilla Porter MD Work Phone: [facility] 12-28-2024 08:48-0400 Body mass index (BMI) [Ratio] 17.11 kg/m2 Scott Alcazar MD Work Phone: [facility] 12-28-2024 08:48-0400 Body weight 48.08 kg Scott Alcazar MD Work Phone: [facility] 12-28-2024 08:48-0400 Diastolic blood pressure 68 mm[Hg] Scott Alcazar MD Work Phone: [facility] 12-28-2024 08:48-0400 Systolic blood pressure 92 mm[Hg] Scott Alcazar MD Work Phone: [facility] 11-30-2024 08:15-0400 Body height 167.6 cm Paola Sergio LAYER OFF.CENTRAL SUPPLY ASSISTANT Work Phone: [facility] 11-30-2024 08:15-0400 Body mass index (BMI) [Ratio] 16.56 kg/m2 Paola [place] LAYER OFF.CENTRAL SUPPLY ASSISTANT Work Phone: [facility] 11-30-2024 08:15-0400 Body weight 46.54 kg Paola Sergio LAYER OFF.CENTRAL SUPPLY ASSISTANT Work Phone: [facility] 11-30-2024 08:15-0400 Diastolic blood pressure 60 mm[Hg] Paola [place] LAYER OFF.CENTRAL SUPPLY ASSISTANT Work Phone: [facility] 11-30-2024 08:15-0400 Systolic blood pressure 98 mm[Hg] Paola [place] LAYER OFF.CENTRAL SUPPLY ASSISTANT Work Phone: [facility] 11-14-2024 13:07-0400 Body temperature 98.4 [degF] Ann Marie Annita LAYER OFF.CENTRAL SUPPLY ASSISTANT Work Phone: [facility] 11-14-2024 13:07-0400 Body weight 48.5 kg Ann Marie Annita LAYER OFF.CENTRAL SUPPLY ASSISTANT Work Phone: [facility] 11-14-2024 13:07-0400 Diastolic blood pressure 62 mm[Hg] Ann Marie Annita LAYER OFF.CENTRAL SUPPLY ASSISTANT Work Phone: [facility] 11-14-2024 13:07-0400 Heart rate 106 /min Ann Marie Annita LAYER OFF.CENTRAL SUPPLY ASSISTANT Work Phone: [facility] 11-14-2024 13:07-0400 Respiratory rate 16 /min Ann Marie Annita LAYER OFF.CENTRAL SUPPLY ASSISTANT Work Phone: [facility] 11-14-2024 13:07-0400 SaO2% (BldA) [Mass fraction] 99 % Ann Marie Annita LAYER OFF.CENTRAL SUPPLY ASSISTANT Work Phone: [facility] 11-14-2024 13:07-0400 Systolic blood pressure 108 mm[Hg] Ann Marie Annita LAYER OFF.CENTRAL SUPPLY ASSISTANT Work Phone: [facility] 11-11-2024 16:39-0400 Body temperature 98.6 [degF] Dr. Melissa Cabezas MD Work Phone: [facility] 11-11-2024 16:39-0400 Diastolic blood pressure 77 mm[Hg] Dr. Melissa Cabezas MD Work Phone: [facility] 11-11-2024 16:39-0400 Heart rate 82 /min Dr. Melissa Cabezas MD Work Phone: [facility] 11-11-2024 16:39-0400 Respiratory rate 16 /min Dr. Melissa Cabezas MD Work Phone: [facility] 11-11-2024 16:39-0400 SaO2% (BldA) [Mass fraction] 100 % Dr. Melissa Cabezas MD Work Phone: [facility] 11-11-2024 16:39-0400 Systolic blood pressure 110 mm[Hg] Dr. Melissa Cabezas MD Work Phone: [facility] 11-11-2024 11:49-0400 Body height 167.[address] Melissa Cabezas MD Work Phone: [facility] 11-11-2024 11:49-0400 Body mass index (BMI) [Ratio] 17 kg/m2 Dr. Melissa Cabezas MD Work Phone: [facility] 11-11-2024 11:49-0400 Body weight 47.[address] Melissa Cabezas MD Work Phone: [facility] 11-08-2024 09:11-0400 Body temperature 97.3 [degF] Allen Wilson LAYER OFF.CENTRAL SUPPLY ASSISTANT Work Phone: [facility] 11-08-2024 09:11-0400 Body weight 47.9 kg Allen Wilson LAYER OFF.CENTRAL SUPPLY ASSISTANT Work Phone: [facility] 11-08-2024 09:11-0400 Diastolic blood pressure 70 mm[Hg] Allen Wilson LAYER OFF.CENTRAL SUPPLY ASSISTANT Work Phone: [facility] 11-08-2024 09:11-0400 Heart rate 97 /min Allen Wilson LAYER OFF.CENTRAL SUPPLY ASSISTANT Work Phone: [facility] 11-08-2024 09:11-0400 Respiratory rate 18 /min Allen Wilson LAYER OFF.CENTRAL SUPPLY ASSISTANT Work Phone: [facility] 11-08-2024 09:11-0400 SaO2% (BldA) [Mass fraction] 99 % Allen Wilson LAYER OFF.CENTRAL SUPPLY ASSISTANT Work Phone: [facility] 11-08-2024 09:11-0400 Systolic blood pressure 102 mm[Hg] Allen Wilson LAYER OFF.CENTRAL SUPPLY ASSISTANT Work Phone: [facility] 10-25-2024 08:11-0400 Body weight 47.17 kg Marcia Farrell LAYER OFF.CNM Work Phone: [facility] 10-25-2024 08:11-0400 Diastolic blood pressure 64 mm[Hg] Marcia Farrell LAYER OFF.CNM Work Phone: [facility] 10-25-2024 08:11-0400 Systolic blood pressure 108 mm[Hg] Marcia Farrell LAYER OFF.CNM Work Phone: [facility] 10-14-2024 08:52-0400 Body temperature 97.2 [degF] Nilda Castellanos LAYER OFF.CENTRAL SUPPLY ASSISTANT Work Phone: [facility] 10-14-2024 08:52-0400 Body weight 46 kg Nilda Castellanos LAYER OFF.CENTRAL SUPPLY ASSISTANT Work Phone: [facility] 10-14-2024 08:52-0400 Diastolic blood pressure 87 mm[Hg] Nilda Castellanos LAYER OFF.CENTRAL SUPPLY ASSISTANT Work Phone: [facility] 10-14-2024 08:52-0400 Heart rate 102 /min Nilda Castellnaos LAYER OFF.CENTRAL SUPPLY ASSISTANT Work Phone: [facility] 10-14-2024 08:52-0400 Respiratory rate 18 /min Nilda Castellanos LAYER OFF.CENTRAL SUPPLY ASSISTANT Work Phone: [facility] 10-14-2024 08:52-0400 SaO2% (BldA) [Mass fraction] 100 % Nilda Castellanos LAYER OFF.CENTRAL SUPPLY ASSISTANT Work Phone: [facility] 10-14-2024 08:52-0400 Systolic blood pressure 124 mm[Hg] Nilda Castellanos LAYER OFF.CENTRAL SUPPLY ASSISTANT Work Phone: [facility] 08-24-2024 11:00-0500 Body temperature 97.3 [degF] Nilda Castellanos LAYER OFF.CENTRAL SUPPLY ASSISTANT Work Phone: [facility] 08-24-2024 11:00-0500 Body weight 44.8 kg Nilda Castellanos LAYER OFF.CENTRAL SUPPLY ASSISTANT Work Phone: [facility] 08-24-2024 11:00-0500 Diastolic blood pressure 70 mm[Hg] Nilda Castellanos LAYER OFF.CENTRAL SUPPLY ASSISTANT Work Phone: [facility] 08-24-2024 11:00-0500 Heart rate 118 /min Nilda Castellanos LAYER OFF.CENTRAL SUPPLY ASSISTANT Work Phone: [facility] 08-24-2024 11:00-0500 Respiratory rate 20 /min Nilda Gonzalesgs LAYER OFF.CENTRAL SUPPLY ASSISTANT Work Phone: [facility] 08-24-2024 11:00-0500 SaO2% (BldA) [Mass fraction] 98 % Nilda Castellanos LAYER OFF.CENTRAL SUPPLY ASSISTANT Work Phone: [facility] 08-24-2024 11:00-0500 Systolic blood pressure 112 mm[Hg] Nilda Castellanos LAYER OFF.CENTRAL SUPPLY ASSISTANT Work Phone: [facility] 08-18-2024 15:13-0500 Body weight 44.91 kg Marcia Plotts LAYER OFF.CNM Work Phone: [facility] 08-18-2024 15:13-0500 Diastolic blood pressure 62 mm[Hg] Marcia Plotts LAYER OFF.CNM Work Phone: [facility] 08-18-2024 15:13-0500 Systolic blood pressure 98 mm[Hg] Marcia Plotts LAYER OFF.CNM Work Phone: [facility] 04-01-2024 09:34-0400 Body weight 43.82 kg Elena Robertson MD Work Phone: [facility] 04-01-2024 09:34-0400 Diastolic blood pressure 60 mm[Hg] Elena Robertson MD Work Phone: [facility] 04-01-2024 09:34-0400 Systolic blood pressure 100 mm[Hg] Elena Robertson MD Work Phone: [facility] 03-26-2024 13:44-0400 Body weight 44.73 kg Marcia Plotts LAYER OFF.CNM Work Phone: [facility] 03-26-2024 13:44-0400 Diastolic blood pressure 56 mm[Hg] Marcia Plotts LAYER OFF.CNM Work Phone: [facility] 03-26-2024 13:44-0400 Systolic blood pressure 98 mm[Hg] Marcia Plotts LAYER OFF.CNM Work Phone: [facility] 10-09-2023 18:07-0400 Diastolic blood pressure 77 mm[Hg] [facility] 10-09-2023 18:07-0400 Heart rate 60 /min [facility] 10-09-2023 18:07-0400 Respiratory rate 17 /min [facility] 10-09-2023 18:07-0400 SaO2% (BldA) [Mass fraction] 99 % [facility] 10-09-2023 18:07-0400 Systolic blood pressure 112 mm[Hg] [facility] 10-09-2023 16:07-0400 Body height 165.1 cm [facility] 10-09-2023 16:07-0400 Body mass index (BMI) [Ratio] 17.3 kg/m2 [facility] 10-09-2023 16:07-0400 Body temperature 98.1 [degF] [facility] 10-09-2023 16:07-0400 Body weight 47.17 kg [facility] 10-09-2023 15:52-0400 Body temperature 98.91 [degF] Apolonia Wilson LAYER OFF.CENTRAL SUPPLY ASSISTANT Work Phone: [facility] 10-09-2023 15:52-0400 Body weight 46.9 kg Apolonia Wilson LAYER OFF.CENTRAL SUPPLY ASSISTANT Work Phone: [facility] 10-09-2023 15:52-0400 Diastolic blood pressure 90 mm[Hg] Apolonia Wilson LAYER OFF.CENTRAL SUPPLY ASSISTANT Work Phone: [facility] 10-09-2023 15:52-0400 Heart rate 105 /min Apolonia Wilson LAYER OFF.CENTRAL SUPPLY ASSISTANT Work Phone: [facility] 10-09-2023 15:52-0400 Respiratory rate 20 /min Apolonia Wilson LAYER OFF.CENTRAL SUPPLY ASSISTANT Work Phone: [facility] 10-09-2023 15:52-0400 SaO2% (BldA) [Mass fraction] 96 % Apolonia Iwlson LAYER OFF.CENTRAL SUPPLY ASSISTANT Work Phone: [facility] 10-09-2023 15:52-0400 Systolic blood pressure 110 mm[Hg] Apolonia Wilson LAYER OFF.CENTRAL SUPPLY ASSISTANT Work Phone: [facility] 09-20-2023 13:36-0400 Body temperature 97.81 [degF] Krislyn Aberegg PA Work Phone: [facility] 09-20-2023 13:36-0400 Body weight 46.7 kg Krislyn Aberegg PA Work Phone: [facility] 09-20-2023 13:36-0400 Diastolic blood pressure 62 mm[Hg] Krislyn Aberegg PA Work Phone: [facility] 09-20-2023 13:36-0400 Heart rate 106 /min Krislyn Aberegg PA Work Phone: [facility] 09-20-2023 13:36-0400 Respiratory rate 16 /min Krislyn Aberegg PA Work Phone: [facility] 09-20-2023 13:36-0400 SaO2% (BldA) [Mass fraction] 98 % Krislyn Aberegg PA Work Phone: [facility] 09-20-2023 13:36-0400 Systolic blood pressure 110 mm[Hg] Krislyn Aberegg PA Work Phone: [facility] 08-22-2023 12:36-0500 Body temperature 98.29 [degF] Krislyn Aberegg PA Work Phone: [facility] 08-22-2023 12:36-0500 Body weight 47.45 kg Krislyn Aberegg PA Work Phone: [facility] 08-22-2023 12:36-0500 Diastolic blood pressure 78 mm[Hg] Krislyn Aberegg PA Work Phone: [facility] 08-22-2023 12:36-0500 Heart rate 116 /min Krislyn Aberegg PA Work Phone: [facility] 08-22-2023 12:36-0500 Respiratory rate 20 /min Krislyn Aberegg PA Work Phone: [facility] 08-22-2023 12:36-0500 SaO2% (BldA) [Mass fraction] 99 % Krislyn Aberegg PA Work Phone: [facility] 08-22-2023 12:36-0500 Systolic blood pressure 108 mm[Hg] Krislyn Aberegg PA Work Phone: [facility] 03-22-2023 09:08-0400 Body temperature 98.1 [degF] Tasneem Praisler-Wood LAYER OFF.CENTRAL SUPPLY ASSISTANT Work Phone: [facility] 03-22-2023 09:08-0400 Body weight 46.72 kg Tasneem Praisler-Wood LAYER OFF.CENTRAL SUPPLY ASSISTANT Work Phone: [facility] 03-22-2023 09:08-0400 Diastolic blood pressure 80 mm[Hg] Tasneem Praisler-Wood LAYER OFF.CENTRAL SUPPLY ASSISTANT Work Phone: [facility] 03-22-2023 09:08-0400 Heart rate 100 /min Tasneem Praisler-Wood LAYER OFF.CENTRAL SUPPLY ASSISTANT Work Phone: [facility] 03-22-2023 09:08-0400 Respiratory rate 16 /min Tasneem Praisler-Wood LAYER OFF.CENTRAL SUPPLY ASSISTANT Work Phone: [facility] 03-22-2023 09:08-0400 Systolic blood pressure 104 mm[Hg] Tasneem Praisler-Wood LAYER OFF.CENTRAL SUPPLY ASSISTANT Work Phone: [facility] 01-30-2023 11:34-0400 Body weight 47.27 kg Antonieta Stanley MD Work Phone: [facility] 01-30-2023 11:34-0400 Diastolic blood pressure 70 mm[Hg] Antonieta Stanley MD Work Phone: [facility] 01-30-2023 11:34-0400 Systolic blood pressure 104 mm[Hg] Antonieta Stanley MD Work Phone: [facility] 01-16-2023 16:38-0400 Body weight 46.72 kg Pricila Vergara LAYER OFF.CENTRAL SUPPLY ASSISTANT Work Phone: [facility] 01-16-2023 16:38-0400 Diastolic blood pressure 60 mm[Hg] Pricila Vergara LAYER OFF.CENTRAL SUPPLY ASSISTANT Work Phone: [facility] 01-16-2023 16:38-0400 Systolic blood pressure 98 mm[Hg] Pricila Vergara LAYER OFF.CENTRAL SUPPLY ASSISTANT Work Phone: [facility] 01-01-2023 22:20-0400 Body height 165.1 cm [facility] 01-01-2023 22:20-0400 Body mass index (BMI) [Ratio] 17.9 kg/m2 [facility] 01-01-2023 22:20-0400 Body temperature 97.9 [degF] [facility] 01-01-2023 22:20-0400 Body weight 48.8 kg [facility] 01-01-2023 22:20-0400 Diastolic blood pressure 84 mm[Hg] [facility] 01-01-2023 22:20-0400 Heart rate 81 /min [facility] 01-01-2023 22:20-0400 Respiratory rate 16 /min [facility] 01-01-2023 22:20-0400 SaO2% (BldA) [Mass fraction] 98 % [facility] 01-01-2023 22:20-0400 Systolic blood pressure 129 mm[Hg] [facility] 12-25-2022 16:47-0400 Body temperature 99.39 [degF] Nilda Castellanos LAYER OFF.CENTRAL SUPPLY ASSISTANT Work Phone: [facility] 12-25-2022 16:47-0400 Body weight 46.72 kg Nilda Castellanos LAYER OFF.CENTRAL SUPPLY ASSISTANT Work Phone: [facility] 12-25-2022 16:47-0400 Diastolic blood pressure 80 mm[Hg] Nilda Castellanos LAYER OFF.CENTRAL SUPPLY ASSISTANT Work Phone: [facility] 12-25-2022 16:47-0400 Heart rate 120 /min Nilda Castellanos LAYER OFF.CENTRAL SUPPLY ASSISTANT Work Phone: [facility] 12-25-2022 16:47-0400 Respiratory rate 16 /min Nilda Castellanos LAYER OFF.CENTRAL SUPPLY ASSISTANT Work Phone: [facility] 12-25-2022 16:47-0400 SaO2% (BldA) [Mass fraction] 97 % Nilda Castellanos LAYER OFF.CENTRAL SUPPLY ASSISTANT Work Phone: [facility] 12-25-2022 16:47-0400 Systolic blood pressure 92 mm[Hg] Nilda Castellanos LAYER OFF.CENTRAL SUPPLY ASSISTANT Work Phone: [facility] 07-05-2022 16:12-0500 Body temperature 97.9 [degF] [facility] LAYER OFF.CENTRAL SUPPLY ASSISTANT Work Phone: [facility] 07-05-2022 16:12-0500 Body weight 46.9 kg [facility] LAYER OFF.CENTRAL SUPPLY ASSISTANT Work Phone: [facility] 07-05-2022 16:12-0500 Diastolic blood pressure 70 mm[Hg] Yosi Pendlebury LAYER OFF.CENTRAL SUPPLY ASSISTANT Work Phone: [facility] 07-05-2022 16:12-0500 Heart rate 119 /min Yosi Pendlebury LAYER OFF.CENTRAL SUPPLY ASSISTANT Work Phone: [facility] 07-05-2022 16:12-0500 Respiratory rate 18 /min [facility] LAYER OFF.CENTRAL SUPPLY ASSISTANT Work Phone: [facility] 07-05-2022 16:12-0500 SaO2% (BldA) [Mass fraction] 98 % [facility] LAYER OFF.CENTRAL SUPPLY ASSISTANT Work Phone: [facility] 07-05-2022 16:12-0500 Systolic blood pressure 108 mm[Hg] Yosi Pendlebury LAYER OFF.CENTRAL SUPPLY ASSISTANT Work Phone: [facility] 05-21-2022 16:34-0500 Body temperature 98.01 [degF] Jessica Monte LAYER OFF.CENTRAL SUPPLY ASSISTANT Work Phone: [facility] 05-21-2022 16:34-0500 Body weight 48.53 kg Jessica Callow LAYER OFF.CENTRAL SUPPLY ASSISTANT Work Phone: [facility] 05-21-2022 16:34-0500 Diastolic blood pressure 62 mm[Hg] Jessica Callow LAYER OFF.CENTRAL SUPPLY ASSISTANT Work Phone: [facility] 05-21-2022 16:34-0500 Heart rate 60 /min Jessica Callow LAYER OFF.CENTRAL SUPPLY ASSISTANT Work Phone: [facility] 05-21-2022 16:34-0500 Respiratory rate 16 /min Jessica Callow LAYER OFF.CENTRAL SUPPLY ASSISTANT Work Phone: [facility] 05-21-2022 16:34-0500 SaO2% (BldA) [Mass fraction] 99 % Jessica Callow LAYER OFF.CENTRAL SUPPLY ASSISTANT Work Phone: [facility] 05-21-2022 16:34-0500 Systolic blood pressure 106 mm[Hg] Jessica Callow LAYER OFF.CENTRAL SUPPLY ASSISTANT Work Phone: [facility] 02-14-2022 11:44-0400 Body weight 46.72 kg Pricila Vergara LAYER OFF.CENTRAL SUPPLY ASSISTANT Work Phone: [facility] 02-14-2022 11:44-0400 Diastolic blood pressure 68 mm[Hg] Pricila Vergara APRN.CENTRAL SUPPLY ASSISTANT Work Phone: [facility] 02-14-2022 11:44-0400 Systolic blood pressure 110 mm[Hg] Pricila Vergara LAYER OFF.CENTRAL SUPPLY ASSISTANT Work Phone: [facility] 12-28-2021 14:50-0400 Body weight 48.9 kg Marcia Plotts LAYER OFF.CNM Work Phone: [facility] 12-28-2021 14:50-0400 Diastolic blood pressure 60 mm[Hg] Marcia Plotts LAYER OFF.CNM Work Phone: [facility] 12-28-2021 14:50-0400 Systolic blood pressure 98 mm[Hg] Marcia Plotts LAYER OFF.CNM Work Phone: [facility] 12-28-2021 12:36-0400 Body temperature 97.59 [degF] Yosi Elmer LAYER OFF.CENTRAL SUPPLY ASSISTANT Work Phone: [facility] 12-28-2021 12:36-0400 Body weight 48.08 kg Yosi Elmer LAYER OFF.CENTRAL SUPPLY ASSISTANT Work Phone: [facility] 12-28-2021 12:36-0400 Diastolic blood pressure 82 mm[Hg] Yosi Payne LAYER OFF.CENTRAL SUPPLY ASSISTANT Work Phone: [facility] 12-28-2021 12:36-0400 Heart rate 106 /min Yosi Elmer LAYER OFF.CENTRAL SUPPLY ASSISTANT Work Phone: [facility] 12-28-2021 12:36-0400 Respiratory rate 20 /min Yosi Elmer LAYER OFF.CENTRAL SUPPLY ASSISTANT Work Phone: [facility] 12-28-2021 12:36-0400 SaO2% (BldA) [Mass fraction] 97 % Yosi Elmer LAYER OFF.CENTRAL SUPPLY ASSISTANT Work Phone: [facility] 12-28-2021 12:36-0400 Systolic blood pressure 110 mm[Hg] Yosi Elmer LAYER OFF.CENTRAL SUPPLY ASSISTANT Work Phone: [facility] Encounters Encounter Date Encounter Type Care Provider Facility Start: 05-18-2025 End: 05-18-2025 ambulatory REJI DING Facility:[facility] Start: 05-17-2025 End: 05-17-2025 ambulatory NILDA JEAN Facility:[facility] Start: 05-14-2025 End: 05-14-2025 ambulatory Melissa Cabezas Facility:[facility] Start: 05-13-2025 End: 05-13-2025 ambulatory ANTONIETA STANLEY Facility:[facility] Start: 05-13-2025 End: 05-13-2025 ambulatory REJI DING Facility:[facility] Start: 05-13-2025 End: 05-13-2025 ambulatory REJI DING Facility:[facility] Start: 05-03-2025 End: 05-03-2025 ambulatory MARCIA FARRELL Facility:[facility] Start: 04-22-2025 End: 04-22-2025 ambulatory ELENA MARGARITO Facility:[facility] Start: 04-08-2025 End: 04-08-2025 ambulatory NILDA JEAN Facility:[facility] Start: 03-28-2025 End: 03-28-2025 ambulatory ESHA GERMAN Facility:[facility] Start: 03-22-2025 End: 03-22-2025 Patient encounter procedure Nilda Ted BENTLEY Work Phone: OB/Gynecology Comment on above: Supervision of high risk in second trimester (HCC) (Primary Dx); 24 weeks gestation of (HCC); Urinary tract infection without hematuria, site unspecified; Nausea; Diarrhea, unspecified type; Cramping affecting , antepartum (HCC); Hx of delivery, currently (HCC) Start: 03-22-2025 End: 03-22-2025 ambulatory NILDA TED Facility:[facility] Start: 03-14-2025 End: 03-14-2025 Patient encounter procedure Odette Lindsay MD Work Phone: OB/Gynecology Comment on above: Palpitations (Primar y Dx); Supervision of high risk in second trimester (HCC); 23 weeks gestation of (HCC); Blurred vision; Generalized body aches; UTI (urinary tract infection) in , antepartum (HCC) Start: 03-14-2025 End: 03-14-2025 ambulatory ODETTE LINDSAY Facility:[facility] Start: 03-13-2025 End: 03-13-2025 ambulatory Opal Singh RN NURSE DIRECTOR BIOMEDICAL ENGINEERING Comment on above: Patient Update Start: 03-11-2025 End: 03-11-2025 Patient encounter procedure [employer] 1 Director Of Communications [facility] Comment on [...] Start: 03-11-2025 End: 03-11-2025 ambulatory MARCIA FARRELL Facility:[facility] Start: 03-01-2025 End: 03-01-2025 Telephone encounter Kamilla Porter MD Work Phone: OB/Gynecology Comment on above: OB UTI Start: 02-24-2025 End: 02-24-2025 Telephone encounter Nurse Director Of Communications Chen Solorio Work Phone: Obstetrics/Gynecology Comment on above: PRAF Start: 02-23-2025 End: 02-23-2025 Telephone encounter Marcia Farrell APRN.CNM Work Phone: OB/Gynecology Comment on above: Orders Start: 02-23-2025 End: 02-23-2025 Patient encounter procedure Marcia Farrell APRN.CNM Work Phone: OB/Gynecology Comment on above: 20 weeks gestation o f (HCC) (Primary Dx); Hx of delivery, currently (HCC); Supervision of high risk , antepartum ([facility]); Urinary tract infection without hematuria, site unspecified Hx of delive ry, currently (HCC) (Primary Dx); 20 weeks gestation of (HCC); Supervision of high risk , antepartum (HCC) Start: 02-23-2025 End: 02-23-2025 ambulatory PAOLA HUSSEINF Facility:[facility] Start: 02-18-2025 End: 02-19-2025 Follow-up encounter Franklyn Beckford APRN.CENTRAL SUPPLY ASSISTANT Work Phone: [facility] Start: 02-18-2025 End: 02-22-2025 Telephone encounter Marcia Farrell APRN.CNConsuelo Work Phone: OB/Gynecology Comment on above: Care Start: 02-17-2025 End: 02-17-2025 Patient encounter procedure Esha Porter APRN.CENTRAL SUPPLY ASSISTANT Work Phone: [facility] Comment on above: Burning with urinati on (Primary Dx) Start: 02-17-2025 End: 02-17-2025 ambulatory ESHA PORTER Facility:[facility] Start: 02-10-2025 End: 02-10-2025 ambulatory [facility] [facility] Facility:[facility] Start: 01-26-2025 End: 01-26-2025 Patient encounter procedure Antonieta Stanley MD Work Phone: OB/Gynecology Comment on above: Supervision of high risk , antepartum (HCC) (Primary Dx); Hx of delivery, currently (HCC); Family history of Grayling's disease; 16 weeks gestation of (HCC) History of d elivery, currently (HCC) (Primary Dx); Encounter for screening for malformation using ultrasound ([facility]); 16 weeks gestation of ([facility]) Start: 01-26-2025 End: 01-26-2025 ambulatory SCOTT ALCAZAR Facility:[facility] Start: 12-29-2024 End: 12-29-2024 [facility] Facility:[facility] Start: 12-28-2024 End: 12-28-2024 Patient encounter procedure Whi Tech 1 Director Of Communications [facility] Maternal Medicine Comment on above: Encounter for antena rachel screening for malformation (HCC) (Primary Dx); 8 weeks gestation of (HCC) 12 weeks gestation o f (HCC) (Primary Dx); History of delivery, currently (HCC) Family history of Hu ntington's disease (Primary Dx); Supervision of high risk , antepartum (HCC); Hx of delivery, currently (HCC) Start: 12-28-2024 End: 12-28-2024 [facility] Facility:[facility] Start: 12-14-2024 End: 12-14-2024 Telephone encounter Paola Husseinf TRINH Work Phone: OB/Gynecology Comment on above: Orders Start: 12-02-2024 End: 12-02-2024 Telephone encounter Nurse Director Of Communications Chen Solorio Work Phone: Obstetrics/Gynecology Comment on above: PRAF Start: 11-30-2024 End: 01-30-2025 Follow-up encounter Paola Hill APRN.CNP Work Phone: OB/Gynecology Start: 11-30-2024 End: 11-30-2024 Patient encounter procedure Paola Hill CENTRAL SUPPLY ASSISTANT Work Phone: OB/Gynecology Comment on above: Supervision of high risk , antepartum (HCC) (Primary Dx); Hx of delivery, currently (HCC); 8 weeks gestation of (HCC); Screen for STD (sexually transmitted disease); Screening for cervical cancer; Special screening examination for human papillomavirus (HPV); Nausea/vomiting in (HCC) Start: 11-30-2024 End: 11-30-2024 ambulatory PAOLA HILL Facility:[facility] Start: 11-25-2024 End: 12-14-2024 Telephone encounter Paola Garciacalf CENTRAL SUPPLY ASSISTANT Work Phone: OB/Gynecology Start: 11-24-2024 End: 11-24-2024 [facility] Start: 11-14-2024 End: 11-14-2024 Patient encounter procedure Ann Marie Ariza APRN.CENTRAL SUPPLY ASSISTANT Work Phone: [facility] Comment on above: Acute midline low ba ck pain without sciatica (Primary Dx) Start: 11-14-2024 End: 11-14-2024 ambulatory ANN MARIERUBIA ARIZA Facility:[facility] Start: 11-11-2024 End: 11-11-2024 Emergency department patient visit Dr. Melissa Cabezas MD Work Phone: -Emergency Department Work Phone: Start: 11-10-2024 End: 01-10-2025 Follow-up encounter Reji Ding MD Work Phone: OB/Gynecology Start: 11-09-2024 End: 11-09-2024 Patient encounter procedure Director Of Communications [facility] Work Phone: OB/Gynecology Comment on above: History of ectopic p regnancy; Encounter for test, result positive (HCC) Start: 11-09-2024 End: 11-09-2024 ambulatory REJI DING Facility:[facility] Start: 11-08-2024 End: 11-08-2024 Patient encounter procedure Allen Wilson APRN.CENTRAL SUPPLY ASSISTANT Work Phone: [facility] Comment on above: Acute midline low ba ck pain without sciatica (Primary Dx) Start: 11-08-2024 End: 11-08-2024 ambulatory ALLEN KEYA Facility:[facility] Start: 11-05-2024 End: 11-05-2024 ambulatory [facility] Facility:[facility] Start: 10-29-2024 End: 10-29-2024 ambulatory [facility] Facility:[facility] Start: 10-28-2024 End: 12-28-2024 Follow-up encounter Marcia Farrell LAYER OFF.CNM Work Phone: OB/Gynecology Start: 10-27-2024 End: 10-27-2024 [facility] Facility:[facility] Start: 10-25-2024 End: 12-25-2024 Follow-up encounter Marcia Farrell LAYER OFF.CNM Work Phone: OB/Gynecology Start: 10-25-2024 End: 10-25-2024 Patient encounter procedure Marcia Farrell LAYER OFF.CNM Work Phone: OB/Gynecology Comment on above: Encounter for pregna ncy test, result positive (HCC) (Primary Dx); History of ectopic Start: 10-25-2024 End: 10-25-2024 ambulatory [facility] Facility:[facility] Start: 10-15-2024 End: 12-15-2024 Follow-up encounter Lance Gill MD Work Phone: [facility] Start: 10-14-2024 End: 10-14-2024 ambulatory SCOTT ALCAZAR Facility:[facility] Start: 10-14-2024 End: 10-14-2024 Patient encounter procedure Nilda Castellanos LAYER OFF.CENTRAL SUPPLY ASSISTANT Work Phone: [facility] Comment on above: Nausea vomiting and diarrhea (Primary Dx); Generalized abdominal pain Start: 08-24-2024 End: 10-24-2024 Follow-up encounter Miky Medeiros PA Work Phone: [facility] Start: 08-24-2024 End: 08-24-2024 ambulatory [facility] Facility:[facility] Start: 08-24-2024 End: 08-24-2024 Patient encounter procedure Nilda Castellanos APRN.CENTRAL SUPPLY ASSISTANT Work Phone: [facility] Comment on above: URI, acute (Primary Dx); Nausea; Viral illness Start: 08-18-2024 End: 08-18-2024 ambulatory [facility] Facility:[facility] Start: 08-18-2024 End: 08-18-2024 Patient encounter [...] 03-19-2024 Patient encounter procedure Emg 2 Neur Anthony Mc (Max Weight: 850) Neurology Start: 03-11-2024 End: 03-11-2024 Patient encounter procedure Sanjana Pugh DO Work Phone: Orthopaedics Comment on above: Bilateral carpal roxy blanca syndrome (Primary Dx) Start: 10-09-2023 End: 10-09-2023 Emergency department patient visit [facility] Work Phone: Start: 10-09-2023 End: 10-09-2023 Patient encounter procedure Apolonia Wilson MACIEL.CENTRAL SUPPLY ASSISTANT Work Phone: [facility] Comment on above: Headache, unspecifie d headache type (Primary Dx); Dehydration Start: 09-22-2023 Telephone encounter Esha Porter APRN.CENTRAL SUPPLY ASSISTANT Work Phone: [facility] Comment on above: Results Start: 09-20-2023 End: 09-20-2023 Patient encounter procedure Miky PRATHER Work Phone: [facility] Comment on above: Burning with urinati on (Primary Dx) Start: 08-22-2023 End: 08-22-2023 Patient encounter procedure Miky PRATHER Work Phone: [facility] Comment on above: Skin infection (Prim emmy Dx) Start: 03-23-2023 Telephone encounter Esha Porter APRN.CENTRAL SUPPLY ASSISTANT Work Phone: [facility] Comment on above: Results Start: 03-22-2023 End: 03-22-2023 Patient encounter procedure Tasneem Ham APRN.CENTRAL SUPPLY ASSISTANT Work Phone: [facility] Comment on above: Burning with urinati on (Primary Dx) Start: 02-12-2023 ambulatory Antonieta Stanley MD Work Phone: OB/Gynecology Comment on above: Possible herpes outb reak Start: 02-06-2023 End: 02-06-2023 Subsequent hospital visit by physician [facility] 1 Work Phone: Radiology Comment on above: Pelvic pain in femal e [R10.2] Start: 01-30-2023 ambulatory Pricila CORCORAN RN.[facility] Work Phone: OB/Gynecology Comment on above: Intense bleeding and cramping Start: 01-30-2023 Telephone encounter Antonieta Stanley MD Work Phone: OB/Gynecology Comment on above: Results Start: 01-30-2023 End: 01-30-2023 Patient encounter procedure Antonieta Stanley MD Work Phone: OB/Gynecology Comment on above: Pelvic pain in femal e (Primary Dx); Irregular menstrual cycle; Vaginal bleeding Start: 01-16-2023 End: 01-16-2023 Patient encounter procedure Pricila Vergara APRN.CENTRAL SUPPLY ASSISTANT Work Phone: OB/Gynecology Comment on above: Missed menses (Prima ry Dx) Start: 01-01-2023 End: 01-01-2023 Emergency department patient visit [facility]Emergency Department Work Phone: Start: 12-26-2022 Telephone encounter Miky PRATHER Work Phone: [facility] Comment on above: Results Start: 12-25-2022 End: 12-25-2022 Patient encounter procedure Nildaabrahan Gonzalesgs LAYER OFF.CENTRAL SUPPLY ASSISTANT Work Phone: [facility] Comment on above: Viral illness (Prima ry Dx) Start: 07-05-2022 End: 07-05-2022 Office outpatient visit 25 minutes Yosi Payne LAYER OFF.CENTRAL SUPPLY ASSISTANT Work Phone: [facility] Comment on above: Pharyngitis, unspeci fied etiology (Primary Dx) Start: 05-21-2022 End: 05-21-2022 Patient encounter procedure Jessica Monte APRN.CENTRAL SUPPLY ASSISTANT Work Phone: [facility] Comment on above: Urinary frequency (P rimary Dx); Burning with urination Start: 03-15-2022 Chart abstracting Elena Mccord ) Angel [facility] [id number] Start: 02-18-2022 Telephone encounter Pricila goetz APRN.CENTRAL SUPPLY ASSISTANT Work Phone: OB/Gynecology Comment on above: Results Start: 02-15-2022 Telephone encounter Pricila goetz APRN.CENTRAL SUPPLY ASSISTANT Work Phone: OB/Gynecology Comment on above: Results Start: 02-14-2022 End: 02-14-2022 Patient encounter procedure Pricila Vergara LAYER OFF.CENTRAL SUPPLY ASSISTANT Work Phone: OB/Gynecology Comment on above: Burning with urinati on (Primary Dx); Screening examination for STD (sexually transmitted disease) Start: 01-01-2022 Telephone encounter Marcia Sloan isatu LAYER OFF.CNM Work Phone: OB/Gynecology Comment on above: Results Start: 12-28-2021 End: 12-28-2021 Patient encounter procedure Marcia Bud LAYER OFF.CNM Work Phone: OB/Gynecology Comment on above: Screening examinatio n for STD (sexually transmitted disease) (Primary Dx); Folliculitis Start: 12-28-2021 End: 12-28-2021 Subsequent hospital visit by physician X[facility] [place] Work Phone: Radiology Comment on above: Injury of left ankle , initial encounter [S99.912A] Start: 12-28-2021 End: 12-28-2021 Patient encounter procedure Yosi Paganabdelrahman ST.CENTRAL SUPPLY ASSISTANT Work Phone: [facility] Comment on above: Acute pain of left k nee (Primary Dx); Injury of left ankle, initial encounter Start: 12-12-2021 Refill Kamilla Sethi Work Phone: OB/Gynecology Comment on above: Refill Request Start: 02-04-2019 End: 08-06-2019 Patient requested procedure Sanjana Pugh DO Work Phone: [facility] Procedures Date Procedure Procedure Detail Performing Clinician Start: 03-22-2025 Urnls dip stick/tabl et rgnt auto w/o microscopy Nilda Jean APRN.CNM Work Phone: Start: 03-11-2025 Culture bacterial quanttative colony count urine Nilda Jean APRN.CNM Work Phone: Start: 03-11-2025 Us preg uterus after 1st trimest 1/1st gestation Marcia Farrell LAYER OFF.CNM Work Phone: Start: 02-23-2025 Us preg uterus after 1st trimest 07/07 gestation Marcia Farrell LAYER OFF.CNM Work Phone: Start: 02-17-2025 Urnls dip stick/tabl et rgnt auto w/o microscopy Esha Porter LAYER OFF.CENTRAL SUPPLY ASSISTANT Work Phone: Start: 01-26-2025 Us preg uterus after 1st trimest 07/07 gestation Scott Alcazar MD Work Phone: Start: 12-29-2024 Antibody screen SCOTT ALCAZAR Comment on above: Order Comment: Speci men Type: BLOOD SPECIMENOrdering Facility: [facility] Address: [address] [place] [address] Performed By: #### T SPN ####CC MAIN BLOOD BANKCLIA [id number] [address] [place] Start: 12-28-2024 Us preg uterus after 1st trimest 07/07 gestation Paola Hill LAYER OFF.CENTRAL SUPPLY ASSISTANT Work Phone: Start: 11-30-2024 Us uterus l imited 1 fetuses Paola Hill LAYER OFF.CENTRAL SUPPLY ASSISTANT Work Phone: Start: 11-14-2024 Urnls dip stick/tabl [...] 10-25-2024 UA DIP,URINE HCG (POC) Marcia Farrell LAYER OFF.CNM Work Phone: Start: 08-24-2024 STREP A MOLECULAR (POC) Nilda Castellanos LAYER OFF.CENTRAL SUPPLY ASSISTANT Work Phone: Start: 08-18-2024 UA DIP,URINE HCG (POC) Marcia Farrell LAYER OFF.CNM Work Phone: Start: 03-26-2024 UA DIP,URINE HCG (POC) Marcia Farrell LAYER OFF.CNM Work Phone: Start: 03-19-2024 Nerve conduction corby dies 5-6 studies Sanjana Pugh DO Work Phone: Start: 10-09-2023 SARS-CoV-2, Influenz a & RSV (PCR) Start: 09-20-2023 Urnls dip stick/tabl et rgnt auto w/o microscopy Miky PRATHER Work Phone: Start: 03-22-2023 Urnls dip stick/tabl et rgnt auto w/o microscopy Esha Porter LAYER OFF.CENTRAL SUPPLY ASSISTANT Work Phone: Start: 02-06-2023 Us transvaginal Antonieta Stanley MD Work Phone: Start: 01-30-2023 Urine test visual color cmprsn methisabela Stanley MD Work Phone: Start: 01-16-2023 Urine test visual color cmprsn meths Pricila Vergara LAYER OFF.CENTRAL SUPPLY ASSISTANT Work Phone: Start: 12-25-2022 COVID WITH FLUA+B, ROUTINE Nilda Castellanos LAYER OFF.CENTRAL SUPPLY ASSISTANT Work Phone: Start: 07-05-2022 STREP A MOLECULAR (POC) Yosi Payne LAYER OFF.CENTRAL SUPPLY ASSISTANT Work Phone: Start: 05-21-2022 Urnls dip stick/tabl et rgnt auto w/o microscopy Ann Marie Ariza LAYER OFF.CENTRAL SUPPLY ASSISTANT Work Phone: Start: 02-14-2022 Urnls dip stick/tabl et rgnt auto w/o microscopy Pricila Vergara LAYER OFF.CENTRAL SUPPLY ASSISTANT Work Phone: Start: 12-28-2021 Radex ankle complete minimum 3 views Yosi Payne LAYER OFF.CENTRAL SUPPLY ASSISTANT Work Phone: Plan of Treatment Date Care Activity Detail Author Start: 2077 RSV Vaccine (1 - 1-d ose 75+ series) RSV Vaccine (1 - 1-dose 75+ series) [facility] Start: 04-25-2031 Urine microalbumin profile [facility] Start: 12-01-2027 Screening for malign ant neoplasm of cervix Cervical Cancer Screening [facility] Start: 11-30-2025 GC (Gonorrhea) Screening () GC (Gonorrhea) Screening () [facility] Start: 11-30-2025 Screening for Chlamy ruby trachomatis Chlamydia Screening () [facility] Start: 05-13-2025 RSV Vaccine (1 - Ris k 1-dose series) RSV Vaccine (1 - Risk 1-dose series) [facility] Start: 04-08-2025 End: 04-08-2025 ambulatory 04/08/2025 2:15 PM EDT Results Only [facility] [address] [place] [address] [facility] Start: 04-08-2025 End: 04-08-2025 Patient encounter procedure 04/08/2025 1:15 PM EDT Routine Office Visit OB/Gynecology [address] [place] [address] Marcia Farrell APRN.CN [address] [place] [address] Ob OB/Gynecology Comment on above: Ob Start: 03-26-2025 GC (Gonorrhea) Screening () GC (Gonorrhea) Screening (-) [facility] Start: 03-26-2025 Screening for Chlamy ruby trachomatis Chlamydia Screening () [facility] Start: 03-23-2025 End: 03-23-2025 Patient encounter procedure OB/Gynecology Comment on above: OB OB- urine CATHERINE Start: 03-14-2025 End: 06-13-2025 TSH W/REFLEX FT4 [facility] Work Phone: Comment on above: Expected: 03/14/2025 , Expires: 06/13/2025 Start: 03-11-2025 End: 06-10-2025 ANEMIA REFLEX PANEL ANEMIA REFLEX PANEL Lab Routine Supervision of high risk in second trimester (HCC) 23 weeks gestation of (HCC) Expected: 03/11/2025, Expires: 06/10/2025 [facility] Comment on above: Expected: 03/11/2025 , Expires: 06/10/2025 Start: 03-11-2025 End: 03-11-2026 GESTATIONAL GLUCOSE SCREEN, 1-HOUR, 50 GRAM, NON-FASTING GESTATIONAL GLUCOSE SCREEN, 1-HOUR, 50 GRAM, NON-FASTING Lab Routine Supervision of high risk in second trimester (HCC) 23 weeks gestation of (HCC) Screening for diabetes mellitus Expected: 03/11/2025, Expires: 03/11/2026 [facility] Work Phone: Comment on above: Expected: 03/11/2025 , Expires: 03/11/2026 Start: 03-11-2025 End: 03-11-2026 SYPHILIS TREPONEMAL W/REFLEX SYPHILIS TREPONEMAL W/REFLEX Lab Routine Supervision of high risk in second trimester (HCC) 23 weeks gestation of (HCC) Expected: 03/11/2025, Expires: 03/11/2026 [facility] Comment on above: Expected: 03/11/2025 , Expires: 03/11/2026 Start: 03-11-2025 End: 03-11-2025 Patient encounter procedure Maternal Medicine Comment on above: Cervical Length US/OB Start: 03-07-2025 Influenza vaccination [facility] Start: 02-23-2025 End: 02-23-2025 Patient encounter procedure Maternal Medicine Comment on above: Anatomy Anatomy/OB Start: 02-10-2025 End: 02-10-2025 Patient encounter procedure Maternal Medicine Comment on above: Cervical length OB Start: 02-09-2025 End: 02-09-2025 Patient encounter procedure 02/09/2025 10:00 AM EDT Routine Office Visit OB/Gynecology [address] [place] [address] Marcia Farrell APRN.CNM [address] [place] [address] OB OB/Gynecology Comment on above: OB Start: 01-26-2025 End: 01-26-2025 Patient encounter procedure Maternal Medicine Comment on above: History of d sandra, currently ([facility]) [O09.899] OB Start: 12-29-2024 End: 12-29-2024 ambulatory 12/29/2024 12:30 PM EDT Results Only [facility] [address] [place] [address] [facility] Start: 12-28-2024 End: 12-28-2025 OBSTETRIC ULTRASOUND WHI OBSTETRIC ULTRASOUND [facility]I Anc Imaging Routine History of delivery, currently ([facility]) Expected: 12/28/2024, Expires: 12/28/2025 [facility] Work Phone: Comment on above: Expected: 12/28/2024 , Expires: 12/28/2025 Start: 12-28-2024 End: 12-28-2024 Patient encounter procedure Maternal Medicine Comment on above: SHAUN and US MFM follow up Start: 11-30-2024 End: 03-01-2025 ANEMIA REFLEX PANEL ANEMIA REFLEX PANEL Lab Routine 8 weeks gestation of ([facility]) Expected: 11/30/2024, Expires: 03/01/2025 [facility] Work Phone: Comment on above: Expected: 11/30/2024 , Expires: 03/01/2025 Start: 11-30-2024 End: 03-01-2025 Hemoglobin A1c in Blood HEMOGLOBIN A1C Lab Routine 8 weeks gestation of ([facility]) Expected: 11/30/2024, Expires: 03/01/2025 [facility] Comment on above: Expected: 11/30/2024 , Expires: 03/01/2025 Start: 11-30-2024 End: 03-01-2025 Hepatitis B virus surface Ag [Presence] in Serum HEPATITIS B SURFACE ANTIGEN Lab Routine 8 weeks gestation of ([facility]) Expected: 11/30/2024, Expires: 03/01/2025 [facility] Comment on above: Expected: 11/30/2024 , Expires: 03/01/2025 Start: 11-30-2024 End: 03-01-2025 Hepatitis C virus Ab [Presence] in Serum HEPATITIS C ANTIBODY IA WITH CONFIRMATION Lab Routine 8 weeks gestation of ([facility]) Expected: 11/30/2024, Expires: 03/01/2025 [facility] Comment on above: Expected: 11/30/2024 , Expires: 03/01/2025 Start: 11-30-2024 End: 03-01-2025 HIV 1+2 Ab [Presence] in Serum or Plasma by Immunoassay HIV 1/2 COMBO WITH REFLEX TO DIFFERENTIATION Lab Routine 8 weeks gestation of ([facility]) Expected: 11/30/2024, Expires: 03/01/2025 [facility] Comment on above: Expected: 11/30/2024 , Expires: 03/01/2025 Start: 11-30-2024 End: 11-30-2025 OBSTETRIC ULTRASOUND WHI OBSTETRIC ULTRASOUND [facility] Anc Imaging Routine 8 weeks gestation of ([facility]) Expected: 11/30/2024, Expires: 11/30/2025 [facility] Comment on above: Expected: 11/30/2024 , Expires: 11/30/2025 Start: 11-30-2024 End: 03-01-2025 RUBELLA IGG ANTIBODY RUBELLA IGG ANTIBODY Lab Routine 8 weeks gestation of ([facility]) Expected: 11/30/2024, Expires: 03/01/2025 [facility] Comment on above: Expected: 11/30/2024 , Expires: 03/01/2025 Start: 11-30-2024 End: 03-01-2025 SYPHILIS TREPONEMAL W/REFLEX SYPHILIS TREPONEMAL W/REFLEX Lab Routine 8 weeks gestation of ([facility]) Expected: 11/30/2024, Expires: 03/01/2025 [facility] Comment on above: Expected: 11/30/2024 , Expires: 03/01/2025 Start: 11-30-2024 End: 03-01-2025 TYPE + SCREEN TYPE + SCREEN Blood Bank Routine 8 weeks gestation of ([facility]) Expected: 11/30/2024, Expires: 03/01/2025 [facility] Comment on above: Expected: 11/30/2024 , Expires: 03/01/2025 Start: 11-30-2024 End: 11-30-2024 Patient encounter procedure 11/30/2024 8:15 AM EDT Initial Office Visit OB/Gynecology [address] [place] [address] Paola Hill APRN.CENTRAL SUPPLY ASSISTANT [address] [place] [address] New OB OB/Gynecology Comment on above: New OB Start: 11-16-2024 End: 11-16-2024 ambulatory 11/16/2024 8:30 AM EDT Results Only [facility] [address] [place] [address] [facility] Start: 11-15-2024 End: 11-15-2024 Patient encounter procedure 11/15/2024 7:45 AM EDT Appointment Radiology [address] [place] [address] Acute midline low back pain without sciatica [M54.50] Radiology Comment on above: Acute midline low ba ck pain without sciatica [M54.50] Start: 11-11-2024 [facility] Start: 11-10-2024 End: 11-10-2024 ambulatory 11/10/2024 8:45 AM EDT Results Only [facility] [address] [place] [address] [facility] Start: 11-09-2024 End: 11-09-2024 Patient encounter procedure 11/09/2024 9:30 AM EDT Office Visit OB/Gynecology [address] [place] [address] [facility], Director Of Communications [facility] [address] [place] [address] location/dating/viability OB/Gynecology Comment on above: location/dating/viab ility Start: 10-25-2024 End: 10-25-2024 Patient encounter procedure 10/25/2024 8:00 AM EDT Routine Office Visit OB/Gynecology [address] [place] [address] Marcia Farrell APRN.CNM [address] [place] [address] Taken 6 tests, all are positive OB/Gynecology Comment on above: Taken 6 te [address]s, all are positive Start: 04-09-2024 End: 04-09-2024 Patient encounter procedure 04/09/2024 1:45 PM EDT Initial Office Visit OB/Gynecology [address] [place] [address] Sharmila Jimenez APRN.CENTRAL SUPPLY ASSISTANT [address] [place] [address] NOB OB/Gynecology Comment on above: NOB Start: 04-07-2024 End: 04-07-2024 ambulatory 04/07/2024 1:30 PM EDT Results Only [facility] [address] [place] [address] [facility] Start: 04-05-2024 End: 04-05-2024 ambulatory 04/05/2024 2:15 PM EDT Results Only [facility] [address] [place] [address] [facility] Start: 03-29-2024 End: 03-29-2024 ambulatory 03/29/2024 1:00 PM EDT Results Only [facility] [address] [place] [address] [facility] Start: 03-26-2024 End: 06-25-2024 TYPE + SCREEN [facility] Comment on above: Expected: 03/26/2024 , Expires: 06/25/2024 Start: 03-19-2024 End: 03-19-2024 ambulatory 03/19/2024 2:15 PM EDT Procedure Neurology [address] [place] [address] Bilateral carpal tunnel syndrome [G56.03] Neurology Comment on above: 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] Start: 03-07-2024 Covid-19 Vaccine ( season) Covid-19 Vaccine ( season) [facility] Start: 03-07-2024 Covid-19 Vaccine () Covid-19 Vaccine () [facility] Start: 03-07-2024 Influ[facility] Start: 10-09-2023 [facility] Start: 08-12-2023 CHLAMYDIA SCREENING (18-24) CHLAMYDIA SCREENING (18-24) [facility] Start: 08-12-2023 GC (GONORRHEA) SCREENING (18-24) GC (GONORRHEA) SCREENING (18-24) [facility] Start: 08-12-2023 Screening for Chlamy ruby trachomatis Chlamydia Screening (18-24) [facility] Start: 2023 Screening for malign ant neoplasm of cervix [facility] Start: 07-07-2023 Behavioral Health Screening Behavioral Health Screening [facility] Start: 07-07-2023 Depression Assessment Depression Ass essment [facility] Start: 05-21-2023 CHLAMYDIA SCREENING (18-24) CHLAMYDIA SCREENING (18-24) [facility] Start: 05-21-2023 GC (GONORRHEA) SCREENING (18-24) GC (GONORRHEA) SCREENING (18-24) [facility] Start: 03-22-2023 End: 05-22-2023 Bacteria identified in Urine by Culture URINE CULTURE Microbiology Routine Burning with urination Expected: 03/22/2023, Expires: 05/22/2023 [facility] Work Phone: Comment on above: Expected: 03/22/2023 , Expires: 05/22/2023 Start: 03-07-2023 Covid-19 Vaccine ( season) Covid-19 Vaccine ( season) [facility] Start: 03-07-2023 Influenza vaccination [facility] Start: 02-14-2023 CHLAMYDIA SCREENING (18-24) CHLAMYDIA SCREENING (18-24) [facility] Start: 02-14-2023 GC (GONORRHEA) SCREENING (18-24) GC (GONORRHEA) SCREENING (18-24) [facility] Start: 01-30-2023 End: 04-01-2023 Choriogonadotropin.beta subunit [Units/volume] in Serum or Plasma [facility] Work Phone: Comment on above: Expected: 01/30/2023 , Expires: 04/01/2023 Start: 01-16-2023 End: 03-18-2023 Choriogonadotropin.beta subunit [Units/volume] in Serum or Plasma HCG QUANTITATIVE Lab Routine Missed menses Expected: 01/16/2023, Expires: 03/18/2023 [facility] Work Phone: Comment on above: Expected: 01/16/2023 , Expires: 03/18/2023 Start: 12-28-2022 CHLAMYDIA SCREENING (18-24) CHLAMYDIA SCREENING (18-24) [facility] Start: 12-28-2022 GC (GONORRHEA) SCREENING (18-24) GC (GONORRHEA) SCREENING (18-24) [facility] Start: 07-07-2022 DEPRESSION ASSESSMENT DEPRESSION ASS ESSMENT [facility] Start: 05-21-2022 End: 07-21-2022 Chlamydia trachomatis+Neisseria gonorrhoeae DNA [Presence] in Urine by AQUILINO with probe detection GC/CHLAMYDIA AMPLIF, URINE Microbiology Routine Burning with urination Expected: 05/21/2022, Expires: 07/21/2022 [facility] Work Phone: Comment on above: Expected: 05/21/2022 , Expires: 07/21/2022 Start: 05-02-2022 CHLAMYDIA SCREENING (18-24) CHLAMYDIA SCREENING (18-24) [facility] Start: 05-02-2022 GC (GONORRHEA) SCREENING (18-24) GC (GONORRHEA) SCREENING (18-24) [facility] Start: 03-07-2022 Influenza vaccination [facility] Start: 12-28-2021 End: 02-27-2022 Trichomonas vaginalis Ag [Presence] in Genital specimen by Immunoassay TRICHOMONAS PREP/ANTIGEN Microbiology Routine Screening examination for STD (sexually transmitted disease) Expected: 12/28/2021, Expires: 02/27/2022 [facility] Work Phone: Comment on above: Expected: 12/28/2021 , Expires: 02/27/2022 Start: 07-07-2021 DEPRESSION ASSESSMENT DEPRESSION ASS ESSMENT [facility] Start: 08-04-2020 Meningococcal B Vacc ine (2 of 2 - Bexsero SCDM 2-dose series) Meningococcal B Vaccine (2 of 2 - Bexsero SCDM 2-dose series) [facility] Start: 2020 Anxiety Screening Anxiety Screening [facility] Start: 2020 Depression Screening Depression Scre ening [facility] Start: 06-20-2020 HEPATITIS A (2 of 2 - Risk 2-dose series) HEPATITIS A (2 of 2 - Risk 2-dose series) [facility] Start: 06-20-2020 Hepatitis A Vaccine (2 of 2 - Risk 2-dose series) Hepatitis A Vaccine (2 of 2 - Risk 2-dose series) [facility] Start: 06-20-2020 HPV VACCINE (3 - 3-d ose series) HPV VACCINE (3 - 3-dose series) [facility] Start: 03-01-2020 Meningococcal B Vaccine: Consider Based On Risk (2 of 2 - Risk Bexsero 2-dose series) Meningococcal B Vaccine: Consider Based On Risk (2 of 2 - Risk Bexsero 2-dose series) [facility] Start: 03-01-2020 MENINGOCOCCAL B: Consider based on risk (2 of 2 - Risk Bexsero 2-dose series) MENINGOCOCCAL B: Consider based on risk (2 of 2 - Risk Bexsero 2-dose series) [facility] Start: 2016 PEDS TO ADULT TRANSITION ANNUAL ASSESSMENT PEDS TO ADULT TRANSITION ANNUAL ASSESSMENT [facility] Start: 2014 Adult depression screening assessment DEPRESSION SCREENING [facility] Start: 2014 PEDS TO ADULT TRANSITION INITIAL DISCUSSION PEDS TO ADULT TRANSITION INITIAL DISCUSSION [facility] Start: 2013 HPV VACCINE (1 - 2-d ose series) HPV VACCINE (1 - 2-dose series) [facility] Start: 2012 MENINGOCOCCAL B: Consider based on risk (1 of 2 - Risk Bexsero 2-dose series) MENINGOCOCCAL B: Consider based on risk (1 of 2 - Risk Bexsero 2-dose series) [facility] Start: 2007 COVID-19 VACCINE (#1) COVID-19 VACCI NE (#1) [facility] Start: 01-19-2003 COVID-19 VACCINE (#1) COVID-19 VACCI NE (#1) [facility] Start: 2002 HEPATITIS B (1 of 3 - 3-dose series) HEPATITIS B (1 of 3 - 3-dose series) [facility] Bacteria identified in Urine by Culture URINE CULTURE Microbiology Routine Burning with urination Ordered: 02/14/2022 [facility] Work Phone: Comment on above: Ordered: 02/14/2022 Bacteria identified in Urine by Culture URINE CULTURE Microbiology Routine Urinary frequency Burning with urination Ordered: 05/21/2022 [facility] Work Phone: Comment on above: Ordered: 05/21/2022 Bacteria identified in Urine by Culture URINE CULTURE Microbiology Routine Burning with urination 09/20/2023 1:48 PM EDT [facility] Work Phone: Bacteria identified in Urine by Culture BACTERIAL CULTURE, URINE Microbiology Routine 8 weeks gestation of ([facility]) Ordered: 11/30/2024 [facility] Comment on above: Ordered: 11/30/2024 Bacteria identified in Urine by Culture BACTERIAL CULTURE, URINE Microbiology Routine Burning with urination 02/17/2025 11:11 AM EDT [facility] Work Phone: Bacteria identified in Urine by Culture BACTERIAL CULTURE, URINE Microbiology Routine Supervision of high risk in second trimester (HCC) 24 weeks gestation of (HCC) Urinary tract infection without hematuria, site unspecified 03/22/2025 10:36 AM EDT [facility] Work Phone: BACTERIAL VAGINOSIS NAAT BACTERIAL VAGINOSIS NAAT Lab Routine Vaginal spotting 03/26/2024 2:20 PM EDT [facility] Chlamydia trachomatis+Neisseria gonorrhoeae DNA [Presence] in Unspecified specimen by AQUILINO with probe detection GC/CHLAMYDIA DNA DET Lab Routine Screening examination for STD (sexually transmitted disease) 12/28/2021 3:35 PM T [facility] Work Phone: Chlamydia trachomatis+Neisseria gonorrhoeae DNA [Presence] in Unspecified specimen by AQUILINO with probe detection GONORRHEA/CHLAMYDIA NAAT Lab Routine Vaginal spotting 03/26/2024 2:20 PM EDT [facility] Chlamydia trachomatis+Neisseria gonorrhoeae DNA [Presence] in Unspecified specimen by AQUILINO with probe detection GONORRHEA/CHLAMYDIA NAAT Lab Routine 8 weeks gestation of (HCC) Ordered: 11/30/2024 [facility] Comment on above: Ordered: 11/30/2024 Chlamydia trachomatis+Neisseria gonorrhoeae DNA [Presence] in Urine by AQUILINO with probe detection GC/CHLAMYDIA AMPLIF, URINE Microbiology Routine Screening examination for STD (sexually transmitted disease) Ordered: 02/14/2022 [facility] Work Phone: Comment on above: Ordered: 02/14/2022 End: 03-26-2025 Choriogonadotropin.beta subunit [Units/volume] in Serum or Plasma HCG QUANTITATIVE Lab Routine Vaginal spotting 2x per week for 10 Occurrences starting 03/26/2024 until 03/26/2025 [facility] Work Phone: Comment on above: 2x per week for 10 O ccurrences starting 03/26/2024 until 03/26/2025 Choriogonadotropin.b eta subunit [Units/volume] in Serum or Plasma HCG QUANTITATIVE Lab Routine Vaginal spotting 03/26/2024 2:25 PM T [facility] End: 10-25-2025 Choriogonadotropin.beta subunit [Units/volume] in Serum or Plasma HCG QUANTITATIVE Lab Routine Encounter for test, result positive (HCC) History of ectopic 2x per week for 8 Occurrences starting 10/25/2024 until 10/25/2025 [facility] Work Phone: Comment on above: 2x per week for 8 Oc currences starting 10/25/2024 until 10/25/2025 Choriogonadotropin.b eta subunit [Units/volume] in Serum or Plasma HCG QUANTITATIVE Lab Routine Encounter for test, result positive (HCC) History of ectopic 10/25/2024 8:38 AM EDT [facility] COVID & INFLUENZA A/ B & RSV PCR, ROUTINE COVID & INFLUENZA A/B & RSV PCR, ROUTINE Microbiology Routine URI, acute 08/24/2024 12:00 PM EST [facility] Work Phone: End: 03-11-2025 EMG(NEURO/NI) EMG(NEURO/NI) EMG Routine Bilateral carpal tunnel syndrome 1 Occurrences starting 03/11/2024 until 03/11/2025 [facility] Work Phone: Comment on above: 1 Occurrences starti ng 03/11/2024 until 03/11/2025 PAP TEST PAP TEST Lab [place] Screening for cervical cancer Special screening examination for human papillomavirus (HPV) Ordered: 11/30/2024 [facility] Comment on above: Ordered: 11/30/2024 Patient Education [facility] Work Phone: Patient referral [facility] Work Phone: T VAGINALIS AMPLIFICATION T VAGINALIS AMPLIFICATION Lab Routine Screening examination for STD (sexually transmitted disease) Ordered: 02/14/2022 [facility] Work Phone: Comment on above: Ordered: 02/14/2022 TRICHOMONAS VAGINALI S NAAT TRICHOMONAS VAGINALIS NAAT Lab Routine Screen for STD (sexually transmitted disease) Ordered: 11/30/2024 [facility] Comment on above: Ordered: 11/30/2024 End: 12-14-2025 US Kidney - bilateral and Urinary bladder US KIDNEY/BLADDER Radiology STAT Acute midline low back pain without sciatica 1 Occurrences starting 11/14/2024 until 12/14/2025 [facility] Work Phone: Comment on above: 1 Occurrences starti ng 11/14/2024 until 12/14/2025 End: 03-04-2024 Us transvaginal US FEMALE PELVIS TRANSVAG Radiology Routine Pelvic pain in female 1 Occurrences starting 02/03/2023 until 03/04/2024 [facility] Work Phone: Comment on above: 1 Occurrences starti ng 02/03/2023 until 03/04/2024 [facility] Immunizations Immunization Date Immunization Notes Care Provider Augie gipson 04-25-2021 tetanus toxoid, redu vincent diphtheria toxoid, and acellular pertussis vaccine, adsorbed Kamilla Porter MD Work Phone: [facility] 02-02-2020 Human Papillomavirus 9-valent vaccine Nilda Castellanos [employer] Work Phone: [facility] Work Phone: 02-02-2020 meningococcal B vacc ine, recombinant, OMV, adjuvanted Nilda Castellanos [employer] Work Phone: [facility] Work Phone: 12-20-2019 hepatitis A vaccine, pediatric/adolescent dosage, 2 dose schedule Nilda Castellanos [employer] Work Phone: [facility] Work Phone: 12-20-2019 Human Papillomavirus 9-valent vaccine Nilda Castellaons [employer] Work Phone: [facility] Work Phone: 12-20-2019 meningococcal polysaccharide (groups A, C, Y and W-135) diphtheria toxoid conjugate vaccine (MCV4P) Nilda Castellanos [employer] Work Phone: [facility] Work Phone: 06-22-2019 tetanus toxoid, redu vincent diphtheria toxoid, and acellular pertussis vaccine, adsorbed Kamilla Porter MD Work Phone: [facility] 02-20-2015 meningococcal polysaccharide (groups A, C, Y and W-135) diphtheria toxoid conjugate vaccine (MCV4P) Nilda Castellanos [employer] Work Phone: [facility] Work Phone: 02-20-2015 tetanus toxoid, redu vincent diphtheria toxoid, and acellular pertussis vaccine, adsorbed Nilda Castellanos [employer] Work Phone: [facility] Work Phone: 06-20-2008 diphtheria, tetanus toxoids and acellular pertussis vaccine, unspecified formulation Nilda Castellanos [employer] Work Phone: [facility] Work Phone: 06-20-2008 measles, mumps and rubella virus vaccine Nilda Castellanos [employer] Work Phone: [facility] Work Phone: 06-20-2008 poliovirus vaccine, inactivated Nilda Castellanos [employer] Work Phone: [facility] Work Phone: 06-20-2008 varicella virus vaccine Renay ica Castellanos [employer] Work Phone: [facility] Work Phone: 05-17-2004 influenza virus vacc ine, whole virus Nilda Castellanos [employer] Work Phone: [facility] Work Phone: 05-17-2004 influenza virus vacc ine, unspecified formulation Tasneem Ham [employer] Work Phone: [facility] 11-21-2003 diphtheria, tetanus toxoids and acellular pertussis vaccine, unspecified formulation Nilda Castellanos [employer] Work Phone: [facility] Work Phone: 11-21-2003 varicella virus vaccine Renay ica Castellanos [employer] Work Phone: [facility] Work Phone: 07-25-2003 haemophilus influenz ae type b conjugate and Hepatitis B vaccine Nilda Castellanos [employer] Work Phone: [facility] Work Phone: 07-25-2003 measles, mumps and rubella virus vaccine Nilda Castellanos [employer] Work Phone: [facility] Work Phone: 07-25-2003 poliovirus vaccine, inactivated Nilda Castellanos [employer] Work Phone: [facility] Work Phone: 06-16-2003 influenza virus vacc ine, whole virus Nilda Castellanos [employer] Work Phone: [facility] Work Phone: 05-04-2003 diphtheria, tetanus toxoids and acellular pertussis vaccine, unspecified formulation Nilda Castellanos [employer] Work Phone: [facility] Work Phone: 05-04-2003 haemophilus influenz ae type b vaccine, PRP-T conjugate Nilda Castellanos [employer] Work Phone: [facility] Work Phone: 05-04-2003 pneumococcal conjuga te vaccine, 7 valent Nilda Castellanos [employer] Work Phone: [facility] Work Phone: 02-15-2003 pneumococcal conjuga te vaccine, 7 valent Nilda Castellanos [employer] Work Phone: [facility] Work Phone: 02-15-2003 poliovirus vaccine, inactivated Nilda Castellanos [employer] Work Phone: [facility] Work Phone: 02-01-2003 diphtheria, tetanus toxoids and acellular pertussis vaccine, unspecified formulation Nilda Castellanos [employer] Work Phone: [facility] Work Phone: 02-01-2003 haemophilus influenz ae type b vaccine, PRP-T conjugate Nilda Castellanos [employer] Work Phone: [facility] Work Phone: 2002 pneumococcal conjuga te vaccine, 7 valent Nilda Castellanos [employer] Work Phone: [facility] Work Phone: 2002 poliovirus vaccine, inactivated Nilda Castellanos [employer] Work Phone: [facility] Work Phone: 2002 diphtheria, tetanus toxoids and acellular pertussis vaccine, unspecified formulation Nilda Castellanos [employer] Work Phone: [facility] Work Phone: 2002 haemophilus influenz ae type b vaccine, PRP-T conjugate Nilda Grace [employer] Work Phone: [facility] Work Phone: 2002 hepatitis B vaccine, pediatric or pediatric/adolescent dosage Nilda Castellanos [employer] Work Phone: [facility] Work Phone: 2002 hepatitis B vaccine, pediatric or pediatric/adolescent dosage Nilda Castellanos [employer] Work Phone: [facility] Work Phone: Payers Date Payer Category Payer Self-pay [id number] 2022 Unknown [id number] 2014 Medicaid [facility] MEDICAID [id number] 2014-Present [phone] [address] [place] [address] Medicaid [id number] 2014 Medicaid [id number] Unknown [id number] Unknown [id number] Social History Date Type Detail Facility Start: 02-04-2019 End: 03-26-2024 Tobacco smoking status NHIS Ex-smoker [facility] Work Phone: Start: 07-05-2018 End: 01-03-2019 History of tobacco use Current smoker [facility] Work Phone: Start: 07-05-2018 End: 01-03-2019 History of tobacco use Cigarette Smoker [facility] Work Phone: Start: 02-04-2019 End: 03-26-2024 Tobacco use and exposure Former smokeless tobacco user [facility] Work Phone: End: 01-31-2019 History of tobacco use Chews Tobacco [facility] Work Phone: Start: 08-14-2021 End: 03-14-2025 Alcohol intake Lifetime non-drinker (finding) [facility] Start: 02-04-2019 History SDOH Alcohol Frequency 1 [facility] Start: 11-01-2020 Education 11 [facility] Start: 2002 Sex Assigned At Not on file [facility] Start: 12-18-2021 End: 05-21-2022 Exposure to SARS-CoV-2 (event) Not sure [facility] Start: 2002 Sex Assigned At Female [facility] Start: 01-01-2023 End: 10-09-2023 Tobacco smoking status DCIS Unknown if ever smoked [facility] Start: 11-11-2020 Cigarettes [facility] Start: 01-16-2023 End: 03-26-2024 History of Social function [facility] Work Phone: Start: 01-16-2023 End: 03-26-2024 Tobacco use panel [facility] Work Phone: Start: 02-04-2014 National Score (1-100), lower number is lower risk 70 [facility] Start: 08-12-2022 Gender identity Choose not to disclose [facility] Start: 08-12-2022 Sexual orientation Bisexual (finding ) [facility] How often to you hav e a drink containing alcohol? Never [facility] Work Phone: Start: 11-11-2024 Tobacco smoking stat us DCIS Smokes tobacco daily (finding) [facility] Start: 10-15-2024 [facility] NEGATED: Highlighted row [facility] Goals Date Patient Goal Desired Activity /State Personal health goal Functional Status Date Assessment Result Facility 05-10-2021 Are you deaf, or do you have serious difficulty hearing No 05/10/2021 2:39 PM EDT Padmaja Villalobos, RN No [facility] 05-10-2021 Are you blind, or do you have serious difficulty seeing, even when wearing glasses No 05/10/2021 2:39 PM EDT Padmaja Villalobos, RN No [facility] 05-10-2021 Do you have serious difficulty walking or climbing stairs No 05/10/2021 2:39 PM EDT Padmaja Villalobos, RN No [facility] 05-10-2021 Do you have difficul ty dressing or bathing No 05/10/2021 2:39 PM EDT Padmaja Villalobos, RN [facility] 05-10-2021 Because of a physica l, mental, or emotional condition, do you have difficulty doing errands alone such as visiting a physician's office or shopping No 05/10/2021 2:39 PM EDT Padmaja Villalobos RN No [facility] Mental Status Date Assessment Result Facility 10-09-2023 Cognitive function Level Of Cons ciousness Awake;Alert;Appropriate;Fol lows Commands [facility] Work Phone: 01-01-2023 Cognitive function Level Of Cons ciousness Awake;Alert;Appropriate;Fol lows Commands [facility] Work Phone: 05-10-2021 Because of a physica l, mental, or emotional condition, do you have serious difficulty concentrating, remembering, or making decisions No 05/10/2021 2:39 PM EDT Padmaja Villalobos, LIO No [facility] Clinical Notes 02-13-2021 to 05-13-2025 Quick Notes - Nilda Jean APRN.[facility] - 03/22/2025 11:50 AM EDTPrenatal Quick Notes - Nilda Jean APRN.CN - 03/22/2025 11:50 AM EDTPatient InstructionsPatient Instructions Note Date & Type Note Facility 05-13-2025 Note HNO ID: [id number] Author: REJI DING MD Service: ? Author [...] Irregular Interpretation: Reactive SIGNATURE: Reji Ding MD [facility] 05-13-2025 Note HNO ID: [id number] Author: BECKY FAY RN Service: ? Author Type: Registered Nurse Type: Progress Notes Filed: 05/13/2025 16:09 Note Text: Barbara Schwab presents for injection of Betamethasone as ordered by Dr. Ding. [id number] Betamethasone (Celestone) 12.5mg first dose, given IM - see SEP. Patient tolerated well. Dr. Ding in office at time of injection. Becky Fay RN [facility] 03-28-2025 Note HNO ID: [id number] Author: ESHA PORTER APRN.MATTHEW Service: ? Author Type: Nurse Practitioner Type: Progress Notes Filed: 03/28/2025 09:44 Note Text: [facility] MAXIMILIANO Subjective Barbaar Schwab is a 24 year old female. [...] agrees with care plan. and Recording using Live Life 360 software for draft documentation of the visit was discussed with the patient/authorized financial services sales representative; all questions welcomed and answered. Patient/authorized financial services sales representative agreed to proceed History and Record Review External record(s) reviewed: no prior records. Disposition The patient was discharged. Procedures [facility] 03-22-2025 Progress note Formatting of t his [...] discussed with the Patient or Patient's Authorized Dental Associate. As applicable, any other physician, advance practice provider, medical student, or other health professional student that will be observing or involved in the sensitive examination for educational or training purposes was discussed with the Patient or Authorized Dental Associate. The Patient or Authorized Dental Associate has agreed to proceed with the sensitive [...] call RTO as scheduled Nilda Jean APRN.CNM [facility] 03-22-2025 Miscellaneous Notes JS: Barbara Schwab is [...] discussed with the Patient or Patient's Authorized Dental Associate. As applicable, any other physician, advance practice provider, medical student, or other health professional student that will be observing or involved in the sensitive examination for educational or training purposes was discussed with the Patient or Authorized Dental Associate. The Patient or Authorized Dental Associate has agreed to proceed with the sensitive [...] Nilda Jean APRN.CNM documented in this encounter [facility] 03-22-2025 Instructions Fátima Chase MA - 03/22/2025 10:01 AM EDT SEQUENTIAL SCREENINGS The [facility] offers sequential screenings for women who are [...] It will require an appointment with our copy room technician. This is not an ultrasound performed [...] the above symptoms, contact our office at [phone] and ask to speak with a nurse. After hours, you can call doctors registry at [phone] OR call [facility] at [phone] and ask to have the doctor electrical and instrumentation manager paged. If you consider this an emergency, dial [phone]- or go to your nearest emergency department. NEED HELP? Are you dealing with a violent or abusive relationship? Are you a victim of rape or sexual assult? Call [facility]) 24 hour Crisis Hotline: 138.193.8984 or 336-579-2591. MANUAL Your Guide to a Healthy manual is now on-line. Visit [email or web address] to download your free copy documented in this encounter [facility] 03-15-2025 Progress note Formatting of t his [...] RTO in 4 weeks Nilda Jean APRN.CNM [facility] 03-15-2025 Miscellaneous Notes 03/11/25-S: Barbara Schwab is [...] Nilda Jean APRN.CNM documented in this encounter [facility] 03-14-2025 Note HNO ID: [id number] Author: ODETTE LINDSAY MD Service: ? Author [...] sent. CATHERINE next visit Odette Lindsay DO [facility] 03-14-2025 History of Presen t illness Narrative [...] Odette Lindsay DO documented in this encounter [facility] 03-14-2025 Instructions Farooq Dominguez LPN - 03/14/2025 1:02 PM EDT SEQUENTIAL SCREENINGS The [facility] offers sequential screenings for women who are [...] It will require an appointment with our copy room technician. This is not an ultrasound performed [...] the above symptoms, contact our office at [phone] and ask to speak with a nurse. After hours, you can call doctors registry at [phone] OR call [facility] at [phone] and ask to have the doctor electrical and instrumentation manager paged. If you consider this an emergency, dial 9-3-2 or go to your nearest emergency department. NEED HELP? Are you dealing with a violent or abusive relationship? Are you a victim of rape or sexual assult? Call [facility] ([facility] 24 hour Crisis Hotline: 157.555.8276 or 892-186-2261. MANUAL Your Guide to a Healthy manual is now on-line. Visit [email or web address] [email or web address] to download your free copy documented in this encounter [facility] 03-13-2025 Telephone encounter Note Patient calling regarding B/p 110/88.Conferenced to [facility] [ ] to speak with provider electrical and instrumentation manager for Marcia Farrell CNM.. GO TO THE EMERGENCY ROOM OR CALL 911 IF: * You develop any new symptoms * Your condition worsens * You are concerned or anxious about your condition for any other reason. [facility] 03-13-2025 Miscellaneous Notes Patient calling regarding B/p 110/88.Conferenced to [facility] [ ] to speak with provider electrical and instrumentation manager for Marcia Farrell CNM.. GO TO THE EMERGENCY ROOM OR CALL 911 IF: * You develop any new symptoms * Your condition worsens * You are concerned or anxious about your condition for any other reason. documented in this encounter [facility] 03-11-2025 Note Indication Follow-up evaluation for cervical [...] glucose tolerance test. For more information: My [facility] Oral Glucose Tolerance Test How do I [...] and is not advised. SEQUENTIAL SCREENINGS The [facility] offers sequential screenings for women who are [...] It will require an appointment with our copy room technician. This is not an ultrasound performed [...] the above symptoms, contact our office at [phone] and ask to speak with a nurse. After hours, you can call doctors registry at [phone] OR call [facility] at [phone] and ask to have the doctor electrical and instrumentation manager paged. If you consider this an emergency, dial 91-7 or go to your nearest emergency department. NEED HELP? Are you dealing with a violent or abusive relationship? Are you a victim of rape or sexual assult? Call [facility] ([place] 24 hour Crisis Hotline: 471.628.1945 or 470-776-7596. MANUAL Your Guide to a Healthy manual is now on-line. Visit [email or web address] [email or web address] to download your free copy documented in this encounter [facility] 03-01-2025 Telephone encounter Note Patient notified. Becky Fay RN The following approved medication requests have been transmitted electronically. Requested Prescriptions Signed Prescriptions Disp Refills sulfamethoxazole-trimethoprim (BACTRIM DS) 800-160 mg per tablet 14 tablet 0 Sig: Take 1 tablet by mouth two times a day for 7 days. Authorizing Provider: KAMILLA PORTER Pharmacy Information Pharmacy Address [phone] [place] [address], [place] [address] [facility] 03-01-2025 Miscellaneous Notes Patient notified. Becky Fay RN The following approved medication requests have been transmitted electronically. Requested Prescriptions Signed Prescriptions Disp Refills sulfamethoxazole-trimethoprim (BACTRIM DS) 800-160 mg per tablet 14 tablet 0 Sig: Take 1 tablet by mouth two times a day for 7 days. Authorizing Provider: KAMILLA PORTER Pharmacy Information Pharmacy Address [phone] [place], [place] [address] Filed Kamilla Porter MD' She needs a [...] Elena Rivas RN documented in this encounter [facility] 03-01-2025 Telephone encounter Note Filed Kamilla Porter MD' [facility] 03-01-2025 Telephone encounter Note She needs a bactrim prescription then. She did not have that one prescribed. Becky Fay RN [facility] 03-01-2025 Telephone encounter Note OK to take bactrim Kamilla Porter MD [facility] 03-01-2025 Telephone encounter Note 21w4d Patient was [...] need a new urine culture first? Elena Rivsa, RN [facility] 02-24-2025 Telephone encounter Note 2nd risk assessment form submitted 02/24/25 Donaldo Desai RN [facility] 02-24-2025 Miscellaneous Notes 2nd risk assessment form submitted 02/24/25 Donaldo Desai RN documented in this encounter [facility] 02-23-2025 Telephone encounter Note Please file order for anatomy ultrasound. Yesenia Katz RN [facility] 02-23-2025 Miscellaneous Notes Please file order for anatomy ultrasound. Yesenia Katz RN documented in this encounter [facility] 02-23-2025 Progress note Formatting of t his [...] reviewed and when to call 2) RTO [facility] 02-23-2025 Miscellaneous Notes S: Barbara Schwab is [...] call 2) RTO documented in this encounter [facility] 02-23-2025 Instructions Adwoa Conrad LPN - 02/23/2025 8:55 AM EDT SEQUENTIAL SCREENINGS The [facility] offers sequential screenings for women who are [...] It will require an appointment with our copy room technician. This is not an ultrasound performed [...] the above symptoms, contact our office at [phone] and ask to speak with a nurse. After hours, you can call doctors registry at [phone] OR call [facility] at [phone] and ask to have the doctor electrical and instrumentation manager paged. If you consider this an emergency, dial 9--1 or go to your nearest emergency department. NEED HELP? Are you dealing with a violent or abusive relationship? Are you a victim of rape or sexual assult? Call [facility] ([place] 24 hour Crisis Hotline: 218.773.4664 or 554-885-7137. MANUAL Your Guide to a Healthy manual is now on-line. Visit [email or web address] [email or web address] to download your free copy documented in this encounter [facility] 02-22-2025 Telephone encounter Note See 02/18/25 results follow- up encounter. Patient was notified by urgent care regarding new antibiotic and results. Becky Fay RN [facility] 02-22-2025 Miscellaneous Notes See 02/18/25 results follow- up encounter. Patient was notified by urgent care regarding new antibiotic and results. Becky Fay RN 20w3d Culture >=100,000 CFU/ml Proteus vulgaris Abnormal Urine culture resulted and urgent care provider addressed as culture resistant to Macrobid. New Rx for Bactrim prescribed and faxed to [facility] in [place]. Confirmed with pharmacy that Pt did pick [...] alternative appointments. TY! documented in this encounter [facility] 02-21-2025 Telephone encounter Note 20w3d Culture >=100,000 CFU/ml Proteus vulgaris Abnormal Urine culture resulted and urgent care provider addressed as culture resistant to Macrobid. New Rx for Bactrim prescribed and faxed to [facility] in [place]. Confirmed with pharmacy that Pt did pick Rx up. Tried calling Pt to review that she is indeed taking the Bactrim only at this time to properly treat UTI; However, voicemail box has not been set up yet. Nancy Atkins RN [facility] 02-18-2025 Telephone encounter Note Patient was prescribed Macrobid and has taken 2 doses so far. C/o urinary frequency and side cramps. Burning w/ urination has resolved. Patient is taking tylenol that is helping to resolve side cramps. Next ob appointment 02/23/25. [facility] 02-18-2025 Telephone encounter Note Attempted to reach patient by phone. No answer and unable to leave a voicemail. Mailbox not set up yet. Elena Rivas, LIO [facility] 02-18-2025 Telephone encounter Note If she is being treated, await culture results [facility] Work Phone: 02-18-2025 Telephone encounter Note 20w0d See below. Urine culture pending. Macrobid was given. No openings today or Friday at this time. Urgent Care provider routed chart to DM with a message to review. Please review and advise. Elena Rivas RN [facility] 02-18-2025 Telephone encounter Note Patient was seen in on 02/17, patient sent MyChart request for follow up with OB between 02/18-02/21. Experiencing side cramps and poss UTI symptom. Please call patient to see alternative appointments. TY! [facility] 02-17-2025 Note HNO ID: [id number] Author: ESHA PORTER APRN.CENTRAL SUPPLY ASSISTANT Service: ? Author Type: Nurse Practitioner Type: [...] Urine sent for culture. - Will message ELECTRIC POWER LINE REPAIRER (Dr. Edwards) with high-importance update regarding UTI and current management. - Advised patient to follow any additional instructions from ELECTRIC POWER LINE REPAIRER if contacted. and Recording using Live Life 360 software for draft documentation of the visit was discussed with the patient/authorized financial services sales representative; all questions welcomed and answered. Patient/authorized financial services sales representative agreed to proceed MDM Procedures [facility] 02-17-2025 History of Presen t illness Narrative [...] Urine sent for culture. - Will message ELECTRIC POWER LINE REPAIRER (Dr. Edwards) with high-importance update regarding UTI and current management. - Advised patient to follow any additional instructions from ELECTRIC POWER LINE REPAIRER if contacted. and Recording using Live Life 360 software for draft documentation of the visit was discussed with the patient/authorized financial services sales representative; all questions welcomed and answered. Patient/authorized financial services sales representative agreed to proceed MDM Procedures documented in this encounter [facility] 01-26-2025 Progress note Formatting of t his [...] (HCC) Continue ASA Hx of delivery, currently ([facility]) CL length and early anatomy today Continue with CL Family history of Russel's disease 16 weeks gestation of ([facility]) Anatomy us scheduled RTO 4 wks New OB labs completed Antonieta Stoll MD [facility] 01-26-2025 Miscellaneous Notes DM-Pt doing well. Denies [...] today Continue with CL Family history of Grayling's disease 16 weeks gestation of ([facility]) Anatomy us scheduled RTO 4 wks New OB labs completed Antonieta Stoll MD documented in this encounter [facility] 01-26-2025 Instructions Apolonia Woodard MA - 01/26/2025 10:56 AM EDT SEQUENTIAL SCREENINGS The [facility] offers sequential screenings for women who are [...] It will require an appointment with our copy room technician. This is not an ultrasound performed [...] the above symptoms, contact our office at [phone] and ask to speak with a nurse. After hours, you can call doctors registry at [phone] OR call [facility] at [phone] and ask to have the doctor electrical and instrumentation manager paged. If you consider this an emergency, dial 4--5 or go to your nearest emergency department. NEED HELP? Are you dealing with a violent or abusive relationship? Are you a victim of rape or sexual assult? Call [facility] ([place] 24 hour Crisis Hotline: 271.737.3370 or 637-273-7248. MANUAL Your Guide to a Healthy manual is now on-line. Visit [email or web address] [email or web address] to download your free copy SEQUENTIAL SCREENINGS The [facility] offers sequential screenings for women who are [...] It will require an appointment with our copy room technician. This is not an ultrasound performed [...] the above symptoms, contact our office at [phone] and ask to speak with a nurse. After hours, you can call doctors registry at [phone] OR call [facility] at [phone] and ask to have the doctor electrical and instrumentation manager paged. If you consider this an emergency, dial 0-1-4 or go to your nearest emergency department. NEED HELP? Are you dealing with a violent or abusive relationship? Are you a victim of rape or sexual assult? Call [facility] ([place] 24 hour Crisis Hotline: 404.454.3658 or 151-150-7145. MANUAL Your Guide to a Healthy manual is now on-line. Visit [email or web address] [email or web address] to download your free copy documented in this encounter [facility] 12-28-2024 Progress note Formatting of t his [...] starting at 16 weeks. Kamilla Porter MD [facility] 12-28-2024 Miscellaneous Notes KJ - S: Ching denies LOF, contractions or vaginal bleeding. O: 12w4d, see flow sheet SENSITIVE EXAM: Sensitive exam not performed. A/P: Assessment & Plan Family history of Russel's disease MFM consult with today. 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 This is not an ultrasound performed [...] the above symptoms, contact our office at [phone] and ask to speak with a nurse. After hours, you can call doctors registry at [phone] OR call [facility] at [phone] and ask to have the doctor electrical and instrumentation manager paged. If you consider this an emergency, dial 9-1-8 or go to your nearest emergency department. NEED HELP? Are you dealing with a violent or abusive relationship? Are you a victim of rape or sexual assult? Call [facility] ([place]) 24 hour Crisis Hotline: 460.437.9709 or 203-390-0845. MANUAL Your Guide to a Healthy manual is now on-line. Visit [email or web address] [email or web address] to download your free copy documented in this encounter [facility] 12-28-2024 History of Presen t illness Narrative [...] genital HSV, and a family history of Grayling's disease (maternal grandmother; patient and her mother [...] Take 1 tablet by mouth as needed. Gepwztsp-Xu-Zjo-Fe-FA tab Take 1 tablet by mouth once [...] IMPRESSION: - Single, live, intrauterine . - [place] rump length measurement is consistent with the [...] - stable on SSRI Family history of Grayling's disease History of genital HSV Plan: During [...] follow-up with a therapist/psychiatrist (community-based, not at [facility]). Availability of psychiatry resources at [facility] was reviewed. Risks/benefits of antidepressants (SSRI) [...] the implications of her family history of Grayling's disease. We reviewed that Grayling's disease is an inherited progressive neurodegenerative disorder characterized by choreiform movements, psychiatric problems, and dementia. We reviewed that Grayling's disease is inherited in an autosomal dominant [...] which included preparing to see the patient, iact-ls-[id number] patient care, completing clinical documentation, obtaining and/or reviewing separately obtained history, performing a medically appropriate examination, counseling and educating the patient/family/caregiver, ordering medications, tests, or procedures, communicating results to the patient/family/caregiver, and care coordination (not separately reported). documented in this encounter [facility] 12-28-2024 Note HNO ID: [id number] Author: SCOTT ALCAZAR MD Service: ? Author [...] Procedure Laterality Date SALPINGECTOMY Right 04/01/2024 laparoscopic, [facility] for ectopic Family History Problem Relation Age of Onset Hypertension Mother other (insomnia) Mother other (fibromyalgia) Mother other (IBS) Mother Heart Attack Father Depression Sister No Known Problems Brother Diabetes Maternal Grandmother Hypertension Maternal Grandmother other (Grayling's Disease) Maternal Grandmother Cancer Maternal Grandfather Lung Hypertension Maternal Grandfather Alcohol/Drug Paternal Grandmother Alcohol/Drug Paternal Grandfather other (acid reflux) Son Current Outpatient Medications Medication Sig Dispense Refill aspirin, enteric coated (ECOTRIN LOW STRENGTH) 81 mg EC tablet Take 1 tablet by mouth once daily. 90 tablet 3 valACYclovir (VALTREX) 1 gram tablet Take 1 tablet by mouth as needed. Auiibimd-Ph-Tii-Fe-FA tab Take 1 tablet by mouth once [...] joint pain, kaye (more content not included)... [facility] 12-14-2024 Telephone encounter Note Appointment scheduled with MFM. Patient informed [facility] 12-14-2024 Miscellaneous Notes Appointment scheduled with MFM. [...] the providers that regular see OB pt. Poala Hill APRN.CNP Patient is scheduled for nuchal ultrasound on 12/28. This is MFM day . Do you want MFM referral for history of labor? Notes from 11/30 visit. Under plan notes :History of . Will order MFM consult for further discussion. Please order MFM consult if you want one done documented in this encounter [facility] 12-14-2024 Telephone encounter Note Marcia, Please see note below and Paola's response: Patient saw Paola Hill 11/30/2024 and in her notes it states Will order MFM consult for further discussion. History of . 1st delivery at 28w6d, 2nd delivery of twins ar 32 weeks. Please order MFM consult if you want one done . No appointments prior to that date [facility] 12-14-2024 Telephone encounter Note Ask one of the providers that regular see OB pt. Paola Hill APRN.CNP [facility] 12-14-2024 Telephone encounter Note Patient is scheduled for nuchal ultrasound on 12/28. This is MFM day . Do you want MFM referral for history of labor? Notes from 11/30 visit. Under plan notes :History of . Will order MFM consult for further discussion. Please order MFM consult if you want one done [facility] 12-02-2024 Telephone encounter Note 1st risk assessment form submitted 12/02/24 Donaldo Desai RN [facility] 12-02-2024 Miscellaneous Notes 1st risk assessment form submitted 12/02/24 Donaldo Desai RN documented in this encounter [facility] 11-30-2024 Note HNO ID: [id number] Author: PAOLA HILL APRN.CENTRAL SUPPLY ASSISTANT Service: ? Author Type: Nurse Practitioner Type: Progress Notes Filed: 11/30/2024 09:01 Note Text: Patient declined vice president mission integration. INITIAL OB ASSESSMENT HPI: Ching is a [...] harming myself has occurred to me. Never [place] Depression Scale Total 6 Feeling nervous, anxious [...] syndrome) PAST SURG (more content not included)... [facility] 11-30-2024 History of Presen t illness Narrative Patient declined vice president mission integration. INITIAL OB ASSESSMENT HPI: Ching is a [...] harming myself has occurred to me. Never [place] Depression Scale Total 6 Feeling nervous, anxious [...] Current Outpatient Medications Medication Sig Dispense Refill Eqrgarwt-Tz-Heo-Fe-FA tab Take 1 tablet by mouth once [...] discussed with the Patient or Patient's Authorized Dental Associate. As applicable, any other physician, advance practice provider, medical student, or other health professional student that will be observing or involved in the sensitive examination for educational or training purposes was discussed with the Patient or Authorized Dental Associate. The Patient or Authorized Dental Associate has agreed to proceed with the sensitive [...] activity, CRL consistent with LMP. Paola Hill, LAYER OFF.CENTRAL SUPPLY ASSISTANT ASSESSMENT: 24 year old at 11w3d wks gestational age PLAN: 1) Patient oriented to practice. Patient given new OB orientation folder. Discussed nutrition, folic acid supplementation, dietary guidelines, exercise, smoking, alcohol, caffeine, and drug use. Discussed gestational weight gain guidelines. Discussed routine OB labs including STD/HIV. Discussed how to access Your guide to a health and the Director Patient. Reviewed midwifery and courtroom reporter services that are available. 2) Screening: Hemoglobin [...] Paola Hill APRN.MATTHEW documented in this encounter [facility] 11-30-2024 Instructions Adwoa Conrad LPN - 11/30/2024 7:57 AM EDT Please select the following link to access the [facility] Your Guide to a Healthy . [email or web address] documented in this encounter [facility] 11-25-2024 Telephone encounter Note Called the patient using phone number listed in chart. Patient answered but did not have time to go over the questions today. Patient asked if she could call the office back. Patient is to call 11/26/2024. Miriam Flores MA [facility] 11-25-2024 Miscellaneous Notes Called the patient using phone number listed in chart. Patient answered but did not have time to go over the questions today. Patient asked if she could call the office back. Patient is to call 11/26/2024. Miriam Flores MA documented in this encounter [facility] 11-24-2024 Note HNO ID: [id number] Author: YOSI PAYNE APRN.CENTRAL SUPPLY ASSISTANT Service: ? Author Type: Nurse Practitioner Type: [...] of care. This note was generated using Oversee software. It may contain errors in wording, punctuation, or spelling. Yosi Payne APRN.CENTRAL SUPPLY ASSISTANT History and Record Review Clinical information obtained from an independent historian. History obtained from or confirmed by: parent. External record(s) reviewed: prior outpatient record. Disposition The patient was discharged. OTC Medications were advised: Procedures [facility] 11-14-2024 Note HNO ID: [id number] Author: ANN MARIE ARIZA APRN.CENTRAL SUPPLY ASSISTANT Service: ? Author Type: Nurse Practitioner Type: [...] have confirmed and edited as necessary, the [facility] Review of Systems Constitutional: Negative for chills and fever. Musculoskeletal: Positive for back pain (right flank pain). Negative for joint pain and myalgias. Skin: Negative for itching and rash. All other systems reviewed and are negative. Objective Physical Exam History and Record Review External record(s) reviewed: prior labs/imaging and prior outpatient record. Findings from review of outpatient records: [place] [facility] on 11.11.2024 - negative for uti, labs normal Findings from review of prior labs/imaging: Previous Renal Function Panel Reviewed No results within last 365 days. Differential Diagnoses - musculoskeletal Recording using Live Life 360 software for draft documentation of the visit was discussed with the patient/authorized financial services sales representative; all questions welcomed and answered. Patient/authorized financial services sales representative agreed to proceed ASSESSMENT/PLAN: 1. [...] warranting prompt ER evaluation. Ann Marie Ariza APRN.[facility] 11-14-2024 History of Presen t illness Narrative [...] advised tylenol/stretching - She was seen in [place] ED on 11.11.2024 with normal labs, negative [...] have confirmed and edited as necessary, the [facility] Review of Systems Constitutional: Negative for chills and fever. Musculoskeletal: Positive for back pain (right flank pain). Negative for joint pain and myalgias. Skin: Negative for itching and rash. All other systems reviewed and are negative. Objective Physical Exam History and Record Review External record(s) reviewed: prior labs/imaging and prior outpatient record. Findings from review of outpatient records: [facility] on 11.11.2024 - negative for uti, labs normal Findings from review of prior labs/imaging: Previous Renal Function Panel Reviewed No results within last 365 days. Differential Diagnoses - musculoskeletal Recording using Live Life 360 software for draft documentation of the visit was discussed with the patient/authorized financial services sales representative; all questions welcomed and answered. Patient/authorized financial services sales representative agreed to proceed ASSESSMENT/PLAN: 1. [...] Marie Ariza APRN.CNP documented in this encounter [facility] 11-11-2024 Discharge summary [facility] 11-11-2024 Radiology Diagnostic study note [facility] Imaging Services [address] [place] [address] Kidney and Bladder MR#: [id number] Acct: [id number] Name: BARBARA SCHWAB Rep #: [id number] : 2000 F 24 From: Miguel Gómez MD PCP: Dr. Melissa Cabezas MD Status: REG ER Study:Kidney and Bladder Date of Exam: 0 11/11/24 Exam# [id number] Ordering Dr: Michele Mar MD PROCEDURE: KIDNEY AND BLADDER 11/11/2024 REASON FOR EXAM: RIGHT FLANK PAIN TECHNIQUE: Bilateral renal ultrasound. COMPARISON: None. FINDINGS: Kidneys: No renal mass is seen Perry: No significant hydronephrosis is seen on either [...] 2. No evidence of hydronephrosis. Reading Location: [place] [address] CC: Dr. Michele Mar MD; Dr. Melissa Cabezas MD ~ Licensed Physical Therapist: Signed [facility] 11-11-2024 Discharge summary Note Date/Time November 11, 2024 4:26pm [facility] Medical Records Department [address] [place] [address] Emergency Department Summary 11/11/24 MR#: [id number] Acct: [id number] Name: BARBARA SCHWAB Rep #:[id number] : 2000 24 From: Michele Mar MD [...] is 6 weeks gestation currently and sees ELECTRIC POWER LINE REPAIRER's at the [facility]. She and her state that an ultrasound [...] no dysuria or hematuria, unrelieved with Tylenol. [facility] Medical History IBS (irritable bowel syndrome) Depression GERD (gastroesophageal reflux disease) Home Medications ?Medication ?Instructions ?Recorded ?Last Taken ?Type Prilosec 1 tab PO PRN ACID REFLUX 05/01/21 06:30 History valacyclovir 1 gram tablet 1,000 mg PO DAILY PRN hsv 0 11/11/20 05/01/21 06:30 History (Valtrex) rvqqrbgv-kql-Mh-FA 1 mg 1 tab PO DAILY pregna [...] weeks gestation. She will follow-up with her ELECTRIC POWER LINE REPAIRER. I feel she can be discharged safely [...] 76.4 H Lymph % (Auto) 18.5 L [place] % (Auto) 4.2 Eos % (Auto) 0.1 [...] Clarity Clear Urine pH 6.5 Ur Specific [place] 1.010 Urine Protein Negative Urine Glucose (UA) [...] 2. No evidence of hydronephrosis. Reading Location: [place] [address] Discharge Plan Triage Chief Complaint: Flank Pain [...] improving Activity Restrictions/Additional Instructions: Follow-up with your ELECTRIC POWER LINE REPAIRER at the [facility]. Continue Tylenol as needed for pain. Return with fever, new or worsening symptoms. Print Language: Syriac Disposition Disposition: Home, Self Care What to do if you have Problems For any increased pain, shortness of breath, bleeding, nausea or vomiting, chestpain, or any unexpected problems, contact your Primary Care Provider. Call [employer] [facility] ([phone]) or report to the closest Emergency Room. Call 911 if necessary. 11/11/24 [id number] <Electronically signed by Michele Mar MD> Cosigner Signature (if applicable): CC: Dr. Melissa Cabezas MD ~ Signed [facility] Work Phone: [phone]) 757-681805-07-2025 NoteHNO ID: [id number] Author: BOBBI HOWARD MD Service: ? 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 Encounter Diagnosis ICD-10-CM 1. History of ectopic Z87.59 2. Encounter for test, result positive (HCC) Z32.01 Please see report under imaging tab. 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 Encounter Diagnosis ICD-10-CM 1. History of ectopic Z87.59 2. Encounter for test, result positive (HCC) Z32.01 Please see report under imaging tab. Bobbi Howard MD November 10, 2024 8:54 AM documented in this encounter[facility] History of Present illness Narrative* Rissa WilsonnathanMACIEL.CENTRAL SUPPLY ASSISTANT - 11/08/2024 9:30 AM EDT [facility] [...] ALLERGIES Adhesive Tape (Rosins) and Latex MEDICATIONS Bdnlzjxm-Ru-Fcb-Fe-FA tab Take 1 tablet by mouth once [...] Diabetes Maternal Grandmother Hypertension Maternal Grandmother other (Grayling's Disease) Maternal Grandmother Cancer Maternal Grandfather Lung [...] were advised: Tylenol Procedures documented in this encounterKindred [facility]05-[facility]-2025 NoteHNO ID: [id number] Author: ALLEN WILSON APRN.MATTHEW Service: ? Author [...] ALLERGIES Adhesive Tape (Rosins) and Latex MEDICATIONS Wsgihwnc-Ra-Uue-Fe-FA tab Take 1 tablet by mouth once [...] Diabetes Maternal Grandmother Hypertension Maternal Grandmother other (Grayling's Disease) Maternal Grandmother Cancer Maternal Grandfather Lung [...] f/u for red flag symptoms Allen Wilson APRN.CENTRAL SUPPLY ASSISTANT History and Record Review External record(s) reviewed: prior outpatient record. Disposition The patient was discharged. OTC Medications were advised: Tylenol ProceduresOhiohealth Grant Medical Center04-21-2025 NoteHNO ID: [id number] Author: MARCIA FARRELL APRN.LAUREN Service: ? Author Type: Dog Behaviorist Type: Progress Notes Filed: 10/25/2024 08:35 Note Text: Barbara Schwab is a 24 year old female who presents for problem visit of missed period. Patient reports LMP was 10/01/24. She has been feeling nauseated and took test this past weekend which was faintly positive. Here today for confirmation. 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 Packager And Strapper History LMP: 10/11/2024 (Exact Date), Having periods Age at Menarche: Age at First : Age at Menopause: Packager And Strapper History Comments: Sexual Activity: Yes; Male Contraception: No contraception data on record PAST MEDICAL HISTORY Diagnosis Date Anemia during in second trimester (HCC) 05/18/2019 Depression GERD (gastroesophageal reflux disease) H/O seasonal allergies Herpes simplex virus (HSV) infection IBS (irritable bowel syndrome) PAST SURGICAL HISTORY Procedure Laterality Date NONE SALPINGECTOMY Right 04/01/2024 laparoscopic, [facility] for ectopic FAMILY HISTORY Problem Relation Age [...] (Patient not taking: Reported on 10/14/2024) PNV Comb.Uy13-Ycyz,Carbonyl-FA 29 mg iron- 1 mg tab Take [...] (Patient not taking: Reported on 07/09/2023) vit 97-vtxy-amnou-dha (PRENATE MINI, FERR ASP GLYCIN,) 18-1-350 mg [...] NOB or sooner if needed Marcia Farrell APRN.[facility]04-21-2025 History of Present illness Narrative* Marcia Farrell APRN.[facility] - 10/25/2024 8:11 AM EDT Barbara Schwab is a 24 year old female who presents for problem visit of missed period. Patientreports LMP was 10/01/24. She has been feeling nauseated and took test this past weekendwhich was faintly positive. Here today for confirmation. 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 Packager And Strapper History LMP: 10/11/2024 (Exact Date), Having periods Age at Menarche: Age at First : Age at Menopause: Packager And Strapper History Comments: Sexual Activity: Yes; Male Contraception: [...] Diabetes Maternal Grandmother Hypertension Maternal Grandmother other (Grayling's Disease) Maternal Grandmother Cancer Maternal Grandfather Lung [...] (Patient not taking: Reported on 10/14/2024) PNV Comb.Ne81-Ngcx,Carbonyl-FA 29 mg iron- 1 mg tab Take [...] (Patient not taking: Reported on 07/09/2023) vit 30-hbmn-hgqow-dha (PRENATE MINI, FERR ASP GLYCIN,) 18-1-350 mg [...] needed Marcia Farrell APRN.CNM documented in this encounterKind[facility]04-[facility]25 CvtwNADP-STH-1 (AGENT OF COVID-19) RNA: Not detected INFLUENZA A RNA: Not detected INFLUENZA B RNA: Not detected RESPIRATORY SYNCYTIAL VIRUS (RSV) RNA: Not detectedOhiohealth Grant Medical CenterComment on above:Performed By: #### [id number] ####[facility] LABCLIA [id number] [address]04-10-2025 Instructions* Patient Instructions* Nilda Castellanos APRN.CNP [...] can make nausea worse. documented in this encounterKindred [facility]04-10-2025 NoteHNO ID: [id number] Author: NILDA CASTELLANOS APRN.CENTRAL SUPPLY ASSISTANT Service: ? Author Type: Nurse Practitioner Type: Progress Notes Filed: 10/14/2024 09:21 Note Text: [facility] Subjective Barbara Schwab is a 24 year old adult. Patient presents with: Diarrhea: Vomiting, stomach pain x 4 days 24 year old adult with PMH GERD, IBS, depression, and anxiety presents for illness Acute onset 4 days ago Lower abdominal pain [place] like punched in stomach + emesis x [...] history is provided by the patient. No languages and literature instructor was used. Vomiting This is a new [...] 10 mg by mouth once daily. PNV Comb.Gw80-Yvtg,Carbonyl-FA 29 mg iron- 1 mg tab Take [...] (Patient not taking: Reported on 07/09/2023) vit 45-aabv-xcblp-dha (PRENATE MINI, FERR ASP GLYCIN,) 18-1-350 mg cap Take 1 Dose by mouth once daily. (Patient not taking: Reported on 09/20/2023) FAMILY HISTORY Problem Relation Age of Onset Hypertension Mother other (insomnia) Mother other (fibromyalgia) Mother other (IBS) Mother Heart Attack Father Depression Sister No Known Problems Brother Diabetes Maternal Grandmother Hypertension Maternal Grandmother other (Grayling's Disease) Maternal Grandmother Cancer Maternal Grandfather Lung [...] nursing note reviewed. Constitu (more content not included)...[facility]04-10-2025 History of Present illness Narrative* Nilda Castellanos, MACIEL.CENTRAL SUPPLY ASSISTANT - 10/14/2024 9:01 AM EDT [facility] Subjective Barbara Schwab is a 24 year old adult. Patient presents with: Diarrhea: Vomiting, stomach pain x 4 days 24 year old adult with PMH GERD, IBS, depression, and anxiety presents for illness Acute onset 4 days ago Lower abdominal pain [place] like punched in stomach + emesis x [...] history is provided by the patient. No languages and literature instructor was used. Vomiting This is a new [...] 10 mg by mouth once daily. PNV Comb.Cg93-Ylkt,Carbonyl-FA 29 mg iron- 1 mg tab Take [...] (Patient not taking: Reported on 07/09/2023) vit 76-cgjy-ugdyg-dha (PRENATE MINI, FERR ASP GLYCIN,) 18-1-350 mg cap Take 1 Dose by mouth once daily. (Patient not taking: Reported on 09/20/2023) FAMILY HISTORY Problem Relation Age of Onset Hypertension Mother other (insomnia) Mother other (fibromyalgia) Mother other (IBS) Mother Heart Attack Father Depression Sister No Known Problems Brother Diabetes Maternal Grandmother Hypertension Maternal Grandmother other (Grayling's Disease) Maternal Grandmother Cancer Maternal Grandfather Lung [...] sooner if worsening of symptoms Nilda Castellanos APRN.CENTRAL SUPPLY ASSISTANT History and Record Review External record(s) reviewed: [...] patient was discharged. Procedures documented in this encounterKindred Hospital [facility]02-18-2025 DoddUTUV-UWZ-0 (AGENT OF COVID-19) RNA: Not detected INFLUENZA A RNA: Not detected INFLUENZA B RNA: Not detected RESPIRATORY SYNCYTIAL VIRUS (RSV) RNA: Not detectedOhiohealth Grant Medical CenterComment on above:Performed By: #### [id number]- 1 ####[facility] LABCLIA [id number] [address]02-18-2025 NoteHNO ID: [id number] Author: NILDA CASTELLANOS APRN.CENTRAL SUPPLY ASSISTANT Service: ? Author Type: Nurse Practitioner Type: [...] history is provided by the patient. No languages and literature instructor was used. SHARLENE Flower complains of cough. [...] Laterality Date NONE SALPINGECTOMY Right 04/01/2024 laparoscopic, [facility] for ectopic ALLERGIES Adhesive Tape (Rosins) and [...] 10 mg by mouth once daily. PNV Comb.Er03-Rqsn,Carbonyl-FA 29 mg iron- 1 mg tab Take [...] (Patient not taking: Reported on 07/09/2023) vit 69-ouea-kenuo-dha (PRENATE MINI, FERR ASP GLYCIN,) 18-1-350 mg cap Take 1 Dose by mouth once daily. (Patient not taking: Reported on 09/20/2023) FAMILY HISTORY Problem Relation Age of Onset Hypertension Mother other (insomnia) Mother other (fibromyalgia) Mother other (IBS) Mother Heart Attack Father Depression Sister No Known Problems Brother Diabetes Maternal Grandmother Hypertension Maternal Grandmother other (Grayling's Disease) Maternal Grandmother Cancer Maternal Grandfather Lung [...] asymmetry. Hematological: Positive f (more content not included)...[facility]02-18-2025 History of Present illness Narrative* Nilda Castellanos APRN.[facility] - 08/24/2024 11:05 AM EST This [...] history is provided by the patient. No languages and literature instructor was used. SHARLENE Smithe complains of cough. There is no chest [...] 10 mg by mouth once daily. PNV Comb.Hf80-Lvld,Carbonyl-FA 29 mg iron- 1 mg tab Take [...] (Patient not taking: Reported on 07/09/2023) vit 93-lwqu-gxawa-dha (PRENATE MINI, FERR ASP GLYCIN,) 18-1-350 mg cap Take 1 Dose by mouth once daily. (Patient not taking: Reported on 09/20/2023) FAMILY HISTORY Problem Relation Age of Onset Hypertension Mother other (insomnia) Mother other (fibromyalgia) Mother other (IBS) Mother Heart Attack Father Depression Sister No Known Problems Brother Diabetes Maternal Grandmother Hypertension Maternal Grandmother other (Grayling's Disease) Maternal Grandmother Cancer Maternal Grandfather Lung [...] care with fluids and rest Nilda Castellanos APRN.CENTRAL SUPPLY ASSISTANT documented in this encounterKindred [facility]02-12-2025 History of Present illness Narrative* Marcia Farrell [...] Living3 SAB0 IAB0 Ectopic0 Multiple1 Live Births3 Packager And Strapper History LMP: 08/13/2024 (Exact Date), Having periods Age at Menarche: Age at First : Age at Menopause: Packager And Strapper History Comments: Sexual Activity: Yes; Male Contraception: [...] 1 tablet by mouth once daily. PNV Comb.Xj50-Ulze,Carbonyl-FA 29 mg iron- 1 mg tab Take [...] (Patient not taking: Reported on 07/09/2023) vit 24-mqya-vocie-dha (PRENATE MINI, FERR ASP GLYCIN,) 18-1-350 mg [...] exams Marcia Farrell APRN.CNM documented in this encounterKindred Hospital [facility]02-12-2025 NoteHNO ID: [id number] Author: MARCIA FARRELL APRN.CNM Service: ? Author Type: Dog Behaviorist Type: Progress Notes Filed: 08/19/2024 07:37 Note [...] Living3 SAB0 IAB0 Ectopic0 Multiple1 Live Births3 Packager And Strapper History LMP: 08/13/2024 (Exact Date), Having periods Age at Menarche: Age at First : Age at Menopause: Packager And Strapper History Comments: Sexual Activity: Yes; Male Contraception: No contraception data on record PAST MEDICAL HISTORY Diagnosis Date Anemia during in second trimester 05/18/2019 Depression GERD (gastroesophageal reflux disease) H/O seasonal allergies Herpes simplex virus (HSV) infection IBS (irritable bowel syndrome) PAST SURGICAL HISTORY Procedure Laterality Date NONE SALPINGECTOMY Right 04/01/2024 laparoscopic, [facility] for ectopic FAMILY HISTORY Problem Relation Age [...] 1 tablet by mouth once daily. PNV Comb.Xv80-Mpgn,Carbonyl-FA 29 mg iron- 1 mg tab Take [...] (Patient not taking: Reported on 07/09/2023) vit 59-rbvp-fdmfi-dha (PRENATE MINI, FERR ASP GLYCIN,) 18-1-350 mg [...] RTO as needed/ yearly exams Marcia Farrell APRN.[facility]09-27-2024 Telephone encounter Note* Telephone Encounter - Elena Rivas RN - 04/02/2024 9:46 AM EDT cancelled [facility]09-27-2024 Miscellaneous Notes* Telephone Encounter - Elena Rivas RN - 04/02/2024 9:46 AM EDT cancelled documented in this encounterKindred Hospital [facility]09-26-2024 History of Present illness Narrative* Elena Robertson MD - 04/01/2024 9:29 AM EDT Derrick Hand offered: Patient declines. Barbara Schwab is a 23 year old female who presents for problem visit bleeding and for 2 days. HPI: HCG not rising correctly. Started having bleeding and pain yesterday. Nothing in the uterus onbedside US. Fluid in the pelvis. Going to ED for Formal US and possible treatment. 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 Packager And Strapper History LMP: 02/15/2024 (Approximate), Having periods Age at Menarche: Age at First : Age at Menopause: Packager And Strapper History Comments: Sexual Activity: Yes; Male Contraception: [...] Diabetes Maternal Grandmother Hypertension Maternal Grandmother other (Grayling's Disease) Maternal Grandmother Cancer Maternal Grandfather Lung [...] times a day for 7 days. PNV Comb.Wp75-Bane,Carbonyl-FA 29 mg iron- 1 mg tab Take [...] (Patient not taking: Reported on 07/09/2023) vit 28-zekz-mdiax-dha (PRENATE MINI, FERR ASP GLYCIN,) 18-1-350 mg [...] discussed with the Patient or Patient's Authorized Dental Associate. As applicable, any other physician, advance practice provider, medical student, or other health professional student that will be observing or involved in the sensitive examination for educational or training purposes was discussed with the Patient or Authorized Dental Associate. The Patient or Authorized Dental Associate has agreed to proceed with the sensitive [...] now Elena Robertson MD documented in this encounterKindred [facility]09-20-2024 History of Present illness Narrative* Marcia Farrell APRN.[facility] - 03/26/2024 1:39 PM EDT Patient declined vice president mission integration. Barbara Schwab is a 23 year old [...] L3 SAB0 IAB0 Ectopic0 Multiple1 Live Births3 Packager And Strapper History LMP: 02/15/2024 (Approximate), Having periods Age at Menarche: Age at First : Age at Menopause: Packager And Strapper History Comments: Sexual Activity: Yes; Male Contraception: [...] discussed with the Patient or Patient's Authorized Dental Associate. As applicable, any other physician, advance practice provider, medical student, or other health professional student that will be observing or involved in the sensitive examination for educational or training purposes was discussed with the Patient or Authorized Dental Associate. The Patient or Authorized Dental Associate has agreed to proceed with the sensitive [...] external genitalia normal, normal Bartholin's glands, urethra, [place]'s glands, no vulvar lesions, no cervical lesions, [...] provided Marcia Farrell APRN.CNM documented in this encounterKindred Hospital [facility]09-13-2024 History of Present illness Narrative* Kenrick Rico [...] Tech Kenrick Rico DO documented in this encounterKindred [facility]09-05-2024 History of Present illness Narrative* Gisela Cedeño [...] (Patient not taking: Reported on 07/09/2023) vit 32-mltu-wlrxj-dha (PRENATE MINI, FERR ASP GLYCIN,) 18-1-350 mg [...] The patient has normal right wrist strength. Rubber Production Machine Operator: 4/5 Tests Phalen s sign: positive Tinel's [...] The patient has normal left wrist strength. Rubber Production Machine Operator: 4/5 Tests Phalen s sign: positive Tinel's sign (median nerve): positive Leann's test: negative Other Erythema: absent Sensation: normal Pulse: present Imaging: Last XR Hand/Finger - Impression Only XR HAND GENERAL 3V PA/LAT/OBL RT Exam End: 09/20/2019 10:25 AM (Final result) Impression: IMPRESSION: Normal radiographs of the right hand and forearm Licensed Physical Therapist: CARROLL Transcribe Date/Time: Sep 20 2019 10:28A [...] Sanjana Pugh D.O. M.P.H. documented in this encounterKindred [facility]04-04-2024 History of Present illness Narrative* Apolonia Wilson APRN.[facility] - 10/09/2023 3:55 PM EDT SUBJECTIVE: [...] ER. The family will take her to [facility] for further eval and treatment of [...] Diabetes Maternal Grandmother Hypertension Maternal Grandmother other (Grayling's Disease) Maternal Grandmother Cancer Maternal Grandfather Lung [...] Reported on 07/09/2023) 21 tablet 0 vit 12-oyyz-jynnr-dha (PRENATE MINI, FERR ASP GLYCIN,) 18-1-350 mg [...] E86.0 Apolonia Wilson APRN.MATTHEW documented in this encounterKindred [facility]03-19-2024 Miscellaneous Notes* Telephone Encounter - Rufina Barron [...] care drBib Thank you documented in this encounterKindred [facility]03-16-2024 History of Present illness Narrative* Miky Medeiros [...] (Patient not taking: Reported on 07/09/2023) vit 44-ubay-vxfkf-dha (PRENATE MINI, FERR ASP GLYCIN,) 18-1-350 mg cap Take 1 Dose by mouth once daily. (Patient not taking: Reported on 09/20/2023) FAMILY HISTORY Problem Relation Age of Onset Hypertension Mother other (insomnia) Mother other (fibromyalgia) Mother other (IBS) Mother Heart Attack Father Depression Sister No Known Problems Brother Diabetes Maternal Grandmother Hypertension Maternal Grandmother other (Grayling's Disease) Maternal Grandmother Cancer Maternal Grandfather Lung [...] ER evaluation. CRESCENCIO Viveros documented in this encounterKindred Hospital [facility]02-16-2024 History of Present illness Narrative* Miky Medeiros PA - 08/22/2023 12:43 PM EST Images from the original note were not included. This note was created using BUSINESS OWNERS ADVANTAGEriter. Subjective Barbara Schwab is a 23 year [...] 20 mg by mouth once daily. vit 52-upyt-hjgrl-dha (PRENATE MINI, FERR ASP GLYCIN,) 18-1-350 mg [...] nursing note reviewed. Exam conducted with a vice president mission integration present. Constitutional: General: Ching Schwab is not [...] ER evaluation. CRESCENCIO Viveros documented in this encounterKindred [facility]09-19-2023 Miscellaneous Notes* Telephone Encounter - Rufina Barron [...] with primary care provider. documented in this encounterKindred Hospital [facility]09-16-2023 History of Present illness Narrative* Tasneem Ham [...] 6 hours as needed for nausea/vomiting. vit 01-rjbv-kyckb-dha (PRENATE MINI, FERR ASP GLYCIN,) 18-1-350 mg [...] Diabetes Maternal Grandmother Hypertension Maternal Grandmother other (Grayling's Disease) Maternal Grandmother Cancer Maternal Grandfather Lung [...] illness Tasneem Ham APRN.CNP documented in this encounterKindred Hospital [facility]09-16-2023 Instructions* Patient Instructions* Tasneem Ham APRN.CNP - [...] Discussed expected course of illness Tasneem Ham APRN.[facility] PATIENT INFO BLADDER INFECTION OVERVIEW [...] actually have an infection. documented in this encounterKindred Hospital Dayton08-10-2023 Miscellaneous Notes* Telephone Encounter - Maria C [...] Maria C Savage LPN documented in this encounterKindred Hospital [facility]08-03-2023 History of Present illness Narrative* iNlda Lopez RDMS - 02/06/2023 3:15 PM EDT [...] 06, 2023 4:04 PM documented in this encounterKindred Hospital [facility]07-31-2023 Miscellaneous Notes* Telephone Encounter - Erik Galicia [...] u/s here she is to have at [facility]. Becky Fay RN documented in this encounterKindred Hospital [facility]07-27-2023 History of Present illness Narrative* Antonieta Farrell MD - 01/30/2023 11:24 AM EDT Derrick Hand offered: Patient declines. Barbara Gutierrez is a [...] L3 SAB0 IAB0 Ectopic0 Multiple1 Live Births3 Packager And Strapper History LMP: 12/08/2022 (Exact Date), Having periods Age at Menarche: Age at First : Age at Menopause: Packager And Strapper History Comments: Sexual Activity: Yes; Male Contraception: [...] Diabetes Maternal Grandmother Hypertension Maternal Grandmother other (Grayling's Disease) Maternal Grandmother Cancer Maternal Grandfather Lung [...] 6 hours as needed for nausea/vomiting. vit 75-mmes-tvomn-dha (PRENATE MINI, FERR ASP GLYCIN,) 18-1-350 mg [...] external genitalia normal, normal Bartholin's glands, urethra, [place]'s glands, no vulvar lesions, no cervical lesions, [...] Moderate Antonieta Stoll MD documented in this encounterKindred Hospital [facility]07-27-2023 Miscellaneous Notes* Telephone Encounter - Elena Rivas RN - 01/30/2023 9:42 AM EDT Called patient. Took a +UPT again today. Appointment scheduled for today. Elena Rivas RN documented in this encounter[facility] History of Present illness Narrative* Pricila Vergara, MACIEL.CENTRAL SUPPLY ASSISTANT - 01/16/2023 4:37 PM EDT Barbara Gutierrez is a 22 year old female who presents for confirmation. HPI: LMP 12/08/2022. Regular menses. Positive home UPT last 2 days. Here for confirmation. Is not preventing . Taking PNVFA. 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 Packager And Strapper History LMP: 08/03/2022 (Exact Date), Having periods Age at Menarche: Age at First : Age at Menopause: Packager And Strapper History Comments: Sexual Activity: Yes; Male Contraception: [...] 6 hours as needed for nausea/vomiting. vit 52-ifxa-zhato-dha (PRENATE MINI, FERR ASP GLYCIN,) 18-1-350 mg [...] which included preparing to see the patient, guiv-ex-kmdx patient care, completing clinical documentation, obtaining and/or reviewing separately obtained history, performing a medically appropriate examination, counseling and educating the pat ient/family/caregiver, and ordering medications, tests, or procedures. documented in this encounterKind[facility]06-28-[facility]23 Discharge summary Author Jonathan Rush [facility] January 01, 2023 11:44pm Note Date/Time January 01, 2023 10:3 8pm [facility] Medical Records Department [address] [place] [address] Emergency Department Summary 01/01/23 MR#: [id number] Acct: [id number] Name: BARBARA GUTIERREZ Rep #:[id number] : [...] hsv 11/11/20 [History Last Taken 05/01/21 06:30] qusjyyvy-oxn-Mq-FA 1 mg tablet 1 tab PO DAILY [...] % (Auto) 65.6 Lymph % (Auto) 28.3 [place] % (Auto) 4.5 Eos % (Auto) 0.3 [...] Sl. Cloudy Urine pH 6.5 Ur Specific [place] 1.015 Urine Protein 30 H Urine Glucose [...] your Primary Care Provider. Call [facility] ([phone]) or report to the closest Emergency Room. Call 911 if necessary. 01/01/23 4951 <Electronically signed by Jonathan Rush MD> Cosigner Signature (if applicable): CC: Dr. Melissa Cabezas MD ~ Signed [facility] Work Phone: 1(725) 699-460006-22-2023 Miscellaneous Notes* Telephone Encounter - Rufina Besrom [...] Negative covid and flu documented in this encounterKind[facility]06-21-[facility]23 History of Present illness Narrative* Nilda Castellanos APRN.CENTRAL SUPPLY ASSISTANT - 12/25/2022 4:56 PM EDT This note [...] to work today, citing she works at [email or web address]. The history is provided by the patient. No languages and literature instructor was used. Flu Like Symptoms This is [...] 20 mg by mouth once daily. vit 73-srro-ukpru-dha (PRENATE MINI, FERR ASP GLYCIN,) 18-1-350 mg [...] - COVID WITH FLUA+B, ROUTINE Nilda Castellanos APRN.CENTRAL SUPPLY ASSISTANT documented in this encounterKind[facility]12-30-2022 History of Present illness Narrative* Yosi Payne [...] ALLERGIES Adhesive Tape (Rosins) and Latex MEDICATIONS Feydrrfo-Ez-Jfv-Fe-FA tab Take 1 tablet by mouth once [...] on movement. Nose: Congestion present. Mouth/Throat: Lips: [place]. Mouth: Mucous membranes are moist. Pharynx: Oropharynx [...] of care. This note was generated using Oversee software. It may contain errors in wording, punctuation, or spelling. Yosi Payne APRN.MATTHEW documented in this encounterKind[facility]11-15-2022 History of Present illness Narrative* Jessica Monte [...] ALLERGIES Adhesive Tape (Rosins) and Latex MEDICATIONS Lrkejbyy-Ls-Dus-Fe-FA tab Take 1 tablet by mouth once [...] Diabetes Maternal Grandmother Hypertension Maternal Grandmother other (Grayling's Disease) Maternal Grandmother Cancer Maternal Grandfather Lung [...] ROS Objective Physical Exam documented in this encounterKindred [facility] [place]08-15-2022 Miscellaneous Notes* Telephone Encounter - Pricila Vergara APRN.CNP - 02/18/2022 8:28 PM EDT Please notify pt - Urine culture was positive for infection and the Macrobid she was prescribed should have been effective to cure it. Pricila Vergara, LAYER OFF.CENTRAL SUPPLY ASSISTANT documented in this encounterKindred [facility]08-12-2022 Miscellaneous Notes* Telephone Encounter - Elena Rivas [...] pending. Pricila Vergara APRN.MATTHEW documented in this encounterKind[facility]08-11-2022 History of Present illness Narrative* Pricila Vergara [...] L3 SAB0 IAB0 Ectopic0 Multiple1 Live Births3 Packager And Strapper History LMP: 12/17/2021, Having periods Age at Menarche: Age at First : Age at Menopause: Packager And Strapper History Comments: Sexual Activity: Yes; Male Contraception: [...] Diabetes Maternal Grandmother Hypertension Maternal Grandmother other (Grayling's Disease) Maternal Grandmother Cancer Maternal Grandfather Lung Hypertension Maternal Grandfather Alcohol/Drug Paternal Grandmother Alcohol/Drug Paternal Grandfather other (acid reflux) Son Social History Tobacco Use Smoking status: Former Years: 0.50 Types: Cigarettes Quit date: 01/03/2019 Years since quittin.1 Smokeless tobacco: Former Types: Chew Quit date: 01/31/2019 Substance Use Topics Alcohol use: Never Drug use: Not Currently Types: Marijuana Current Outpatient Medications Medication Sig Kmfwpxse-Tb-Ajq-Fe-FA tab Take 1 tablet by mouth once [...] Level: 4 - Moderate documented in this encounterKindred [facility] [place]06-28-2022 Miscellaneous Notes* Telephone Encounter - Elena Rivas [...] treatment. Marcia Farrell APRN.CNM documented in this encounterKindred [facility]06-24-2022 History of Present illness Narrative* Marcia Farrell [...] L3 SAB0 IAB0 Ectopic0 Multiple1 Live Births3 Packager And Strapper History LMP: 12/17/2021, Having periods Age at Menarche: Age at First : Age at Menopause: Packager And Strapper History Comments: Sexual Activity: Yes; Male Contraception: [...] Types: Marijuana Current Outpatient Medications Medication Sig Wkoxpuxa-Se-Uxz-Fe-FA tab Take 1 tablet by mouth once [...] external genitalia normal, normal Bartholin's glands, urethra, [place]'s glands, no cervical lesions, good vaginal support, [...] Valtrex as prescribed Sharmila Jimenez RN BSN, LAYER OFF Student Marcia Farrell APRN.CNM I spent a total of 20 minutes on the date of the service which included preparing to see the patient, ccvv-oe-wfor patient care, completing clinical documentation, obtaining and/or reviewing separately obtained history, performing a medically appropriate examination and counseling and educating the patient/family/caregiver Medical Decision Making documented in this encounterKindred [facility]06-24-2022 Instructions* Patient Instructions* Yosi Payne APRN.CNP - [...] pillows when lying down. documented in this encounterKindred [facility]06-24-2022 History of Present illness Narrative* Yosi Payne [...] ALLERGIES Adhesive Tape (Rosins) and Latex MEDICATIONS Lrgbegql-Cc-Wxr-Fe-FA tab Take 1 tablet by mouth once [...] Diabetes Maternal Grandmother Hypertension Maternal Grandmother other (Grayling's Disease) Maternal Grandmother Cancer Maternal Grandfather Lung [...] of care. This note was generated using Oversee software. It may contain errors in wording, punctuation, or spelling. Yosi Payne APRN.MTATHEW documented in this encounterKindred [facility]06-24-2022 History of Present illness Narrative* Erik Berry [...] 28, 2021 1:02 PM documented in this encounterKindred [facility] [place]06-08-2022 Miscellaneous Notes* Telephone Encounter - Michelle Vergara LPN - 12/12/2021 11:09 AM EDT Patient called requesting a refill of Valtrex that she takes daily and vitamin. Patient does not need refill until Friday documented in this encounterKind[facility]10-27-2021 History of Past illness Narrative* Problem Noted [...] have advised patient to go to the [place] website and view the video and information. [...] 08/06/2019 Overview: 06/18/19 - received BMZ at [facility] on 06/14-06/15. FFN was positive on 06/15. - Kamilla Porter MD Anemia during in second trimester 05/0708/06/2019 Overview: 05/18/19-Start iron supplementation. Repeat CBC in 4 weeks. 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 Patient is engaged to the father the [...] of this encounter (statuses as of 12/26/2022) [facility] History of Past illness Narrative* Problem Noted [...] 08/06/2019 Overview: 06/18/19 - received BMZ at [facility] on 06/14-06/15. FFN was positive on 06/15. - Kamilla Porter MD Anemia during in second trimester 05/0708/06/2019 Overview: 05/18/19-Start iron supplementation. Repeat CBC in 4 weeks. 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 Patient is engaged to the father the [...] of this encounter (statuses as of 12/26/2022) [facility] History of Past illness Narrative* Problem Noted [...] 08/06/2019 Overview: 06/18/19 - received BMZ at [facility] on 06/14-06/15. FFN was positive on 06/15. - Kamilla Porter MD Anemia during in second trimester 05/18/2019 08/06/2019 Overview: 05/18/19-Start iron supplementation. Repeat CBC in 4 weeks. 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 Patient is engaged to the father [...] of this encounter (statuses as of 01/17/2023) [facility] History of Past illness Narrative* Problem Noted [...] precipitous delivery. I did discuss with patient Ashe[place]. I have advised patient to go to [...] 06/18/2008/06/2019 Overview: 06/18/19 - received BMZ at [facility] on 06/14-06/15. FFN was positive on 06/15. - Kamilla Porter MD Anemia during in second trimester 05/18/2019 08/06/2019 Overview: 05/18/19-Start iron supplementation. Repeat CBC in 4 weeks. 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 Patient is engaged to the [...] of this encounter (statuses as of 01/30/2023) [facility] History of Past illness Narrative* Problem Noted [...] 08/06/2019 Overview: 06/18/19 - received BMZ at [facility] on 06/14-06/15. FFN was positive on 06/15. - Kamilla Porter MD Anemia during in second trimester 05/18/2019 08/06/2019 Overview: 05/18/19-Start iron supplementation. Repeat CBC in 4 weeks. 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 Patient is engaged to the father [...] of this encounter (statuses as of 01/30/2023) [facility] History of Past illness Narrative* Problem Noted [...] have advised patient to go to the [place] website and view the video and information. [...] 08/06/2019 Overview: 06/18/19 - received BMZ at [facility] on 06/14-06/15. FFN was positive on 06/15. - Kamilla Porter MD Anemia during in second trimester 05/18/2019 08/06/2019 Overview: 05/18/19-Start iron supplementation. Repeat CBC in 4 weeks. 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 Patient is engaged to the father the [...] of this encounter (statuses as of 02/03/2023) [facility] History of Past illness Narrative* Problem Noted [...] 06/18/2008/06/2019 Overview: 06/18/19 - received BMZ at [facility] on 06/14-06/15. FFN was positive on 06/15. - Kamilla Porter MD Anemia during in second trimester 05/18/2019 08/06/2019 Overview: 05/18/19-Start iron supplementation. Repeat CBC in 4 weeks. 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 Patient is engaged to the father [...] of this encounter (statuses as of 02/13/2023) [facility] History of Past illness Narrative* Problem Noted [...] have advised patient to go to the [place] website and view the video and information. [...] 08/06/2019 Overview: 06/18/19 - received BMZ at [facility] on 06/14-06/15. FFN was positive on 06/15. - Kamilla Porter MD Anemia during in second trimester 05/18/2019 08/06/2019 Overview: 05/18/19-Start iron supplementation. Repeat CBC in 4 weeks. 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 Patient is engaged to the father the [...] of this encounter (statuses as of 03/22/2023) [facility] History of Past illness Narrative* Problem Noted [...] 08/06/2019 Overview: 06/18/19 - received BMZ at [facility] on 06/14-06/15. FFN was positive on 06/15. - Kamilla Porter MD Anemia during in second trimester 05/18/2019 08/06/2019 Overview: 05/18/19-Start iron supplementation. Repeat CBC in 4 weeks. 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 Patient is engaged to the father [...] of this encounter (statuses as of 03/26/2023) [facility] History of Past illness Narrative* Problem Noted [...] have advised patient to go to the [place] website and view the video and information. [...] 08/06/2019 Overview: 06/18/19 - received BMZ at [facility] on 06/14-06/15. FFN was positive on 06/15. - Kamilla Porter MD Anemia during in second trimester 05/18/2019 08/06/2019 Overview: 05/18/19-Start iron supplementation. Repeat CBC in 4 weeks. 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 Patient is engaged to the father [...] of this encounter (statuses as of 05/12/2023) [facility] History of Past illness Narrative* Problem Noted [...] have advised patient to go to the [place] website and view the video and information. [...] 08/06/2019 Overview: 06/18/19 - received BMZ at [facility] on 06/14-06/15. FFN was positive on 06/15. - Kamilla Porter MD Anemia during in second trimester 05/18/2019 08/06/2019 Overview: 05/18/19-Start iron supplementation. Repeat CBC in 4 weeks. 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 Patient is engaged to the father [...] of this encounter (statuses as of 08/22/2023) [facility] History of Past illness Narrative* Problem Noted [...] have advised patient to go to the [place] website and view the video and information. [...] 08/06/2019 Overview: 06/18/19 - received BMZ at [facility] on 06/14-06/15. FFN was positive on 06/15. - Kamilla Porter MD Anemia during in second trimester 05/18/2019 08/06/2019 Overview: 05/18/19-Start iron supplementation. Repeat CBC in 4 weeks. Nilda Jean APRN.CNM High risk teen , antepartum 02/04/2019 08/12/2022 Overview: 11/01/2020 Patient is a senior at [employer]. Patient is engaged to the [...] of this encounter (statuses as of 09/20/2023) [facility] History of Past illness Narrative* Problem Noted [...] 08/06/2019 Overview: 06/18/19 - received BMZ at [facility] on 06/14-06/15. FFN was positive on 06/15. - Kamilla Porter MD Anemia during in second trimester 05/18/2019 08/06/2019 Overview: 05/18/19-Start iron supplementation. Repeat CBC in 4 weeks. 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 Patient is engaged to the father the [...] of this encounter (statuses as of 09/23/2023) [facility] History of Past illness Narrative* Problem Noted [...] 06/18/2008/06/2019 Overview: 06/18/19 - received BMZ at [facility] on 06/14-06/15. FFN was positive on 06/15. - Kamilla Porter MD Anemia during in second trimester 05/18/2019 08/06/2019 Overview: 05/18/19-Start iron supplementation. Repeat CBC in 4 weeks. 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 Patient is engaged to the father the [...] of this encounter (statuses as of 10/10/2023) [facility] History of Past illness Narrative* Problem Noted Date Resolved Date Dichorionic diamniotic twin in second trimester 02/13/2021 06/03/2021 Threatened premature labor in third trimester 08/06/2019 Overview: 06/18/19 - received BMZ at [facility] on 06/14-06/15. FFN was positive on [...] of this encounter (statuses as of 12/13/2021) [facility] of Past illness Narrative* Problem Noted Date Resolved Date Dichorionic diamniotic twin in second trimester 02/13/2021 06/03/2021 Threatened premature labor in third trimester 08/06/2019 Overview: 06/18/19 - received BMZ at [facility] on 06/14-06/15. FFN was positive on [...] of this encounter (statuses as of 12/28/2021) [facility] of Past illness Narrative* Problem Noted Date Resolved Date Dichorionic diamniotic twin in second trimester 02/13/2021 06/03/2021 Threatened premature labor in third trimester 08/06/2019 Overview: 06/18/19 - received BMZ at [facility] on 06/14-06/15. FFN was positive on [...] of this encounter (statuses as of 12/28/2021) [facility] of Past illness Narrative* Problem Noted Date Resolved Date Dichorionic diamniotic twin in second trimester 02/13/2021 06/03/2021 Threatened premature labor in third trimester 08/06/2019 Overview: 06/18/19 - received BMZ at [facility] on 06/14-06/15. FFN was positive on [...] of this encounter (statuses as of 01/01/2022) [facility] of Past illness Narrative* Problem Noted Date Resolved Date Dichorionic diamniotic twin in second trimester 02/13/2021 06/03/2021 Threatened premature labor in third trimester 08/06/2019 Overview: 06/18/19 - received BMZ at [facility] on 06/14-06/15. FFN was positive on [...] of this encounter (statuses as of 02/14/2022) [facility] of Past illness Narrative* Problem Noted Date Resolved Date Dichorionic diamniotic twin in second trimester 02/13/2021 06/03/2021 Threatened premature labor in third trimester 08/06/2019 Overview: 06/18/19 - received BMZ at [facility] on 06/14-06/15. FFN was positive on [...] of this encounter (statuses as of 02/15/2022) [facility] of Past illness Narrative* Problem Noted Date Resolved Date Dichorionic diamniotic twin in second trimester 02/13/2021 06/03/2021 Threatened premature labor in third trimester 08/06/2019 Overview: 06/18/19 - received BMZ at [facility] on 06/14-06/15. FFN was positive on [...] of this encounter (statuses as of 02/19/2022) [facility] of Past illness Narrative* Problem Noted Date Resolved Date Dichorionic diamniotic twin in second trimester 02/13/2021 06/03/2021 Threatened premature labor in third trimester 08/06/2019 Overview: 06/18/19 - received BMZ at [facility] on 06/14-06/15. FFN was positive on [...] of this encounter (statuses as of 03/15/2022) [facility] of Past illness Narrative* Problem Noted Date Resolved Date Dichorionic diamniotic twin in second trimester 02/13/2021 06/03/2021 Threatened premature labor in third trimester 08/06/2019 Overview: 06/18/19 - received BMZ at [facility] on 06/14-06/15. FFN was positive on [...] of this encounter (statuses as of 05/21/2022) [facility] of Past illness Narrative* Problem Noted Date Resolved Date Dichorionic diamniotic twin in second trimester 02/13/2021 06/03/2021 Threatened premature labor in third trimester 08/06/2019 Overview: 06/18/19 - received BMZ at [facility] on 06/14-06/15. FFN was positive on [...] of this encounter (statuses as of 07/10/2022) [facility] Acute pain of left knee- Primary Injury of left ankle, initial encounter [facility]* Diagnosis Screening examination for STD (sexually transmitted disease)- Primary Screening examination for venereal disease Folliculitis Other specified disease of hair and hair follicles [facility]* Diagnosis Burning with urination- Primary Dysuria Screening examination for STD (sexually transmitted disease) Screening examination for venereal disease [facility]* Diagnosis Trichimoniasis- Primary Trichomoniasis, unspecified [facility]* Diagnosis Urinary frequency- Primary Burning with urination Dysuria documented in this encounter [facility] note* Diagnosis Pharyngitis, unspecified etiology- Primary documented in this encounter [facility] note* Diagnosis Viral illness- Primary Unspecified viral infection, in conditions classified elsewhere and of unspecified site documented in this encounter [facility] noteNo assessment information availableWCorey Hospital Work Phone: [facility]* Diagnosis Missed menses- Primary Absence of menstruation documented in this encounter [facility] note* Diagnosis Pelvic pain in female- Primary Unspecified symptom associated with female genital organs Irregular menstrual cycle Vaginal bleeding Other specified noninflammatory disorder of vagina [facility] Diagnosis Pelvic pain in female- Primary Unspecified symptom associated with female genital organs documented in this encounter [facility] note* Diagnosis Burning with urination- Primary Dysuria documented in this encounter [facility] note* Diagnosis Pelvic pain in female Unspecified symptom associated with female genital organs documented in this encounter [facility] note* Diagnosis Skin infection- Primary Unspecified local infection of skin and subcutaneous tissue documented in this encounter [facility] note* Diagnosis Headache, unspecified headache type- Primary Dehydration [facility]* Diagnosis Bilateral carpal tunnel syndrome- Primary Carpal tunnel syndrome [facility]* Diagnosis Pain in left hand- Primary Bilateral carpal tunnel syndrome Carpal tunnel syndrome Pain in right hand Paresthesia of skin Disturbance of skin sensation documented in this encounter [facility] note* Diagnosis Vaginal spotting- Primary Other specified noninflammatory disorder of vagina Threatened miscarriage in early Threatened , unspecified as to episode of care Encounter for test, result positive examination or test, positive result Bleeding in early Unspecified hemorrhage in early , unspecified as to episode of care History of delivery documented in this encounter [facility] note* Diagnosis Ruptured right tubal ectopic causing hemoperitoneum- Primary [facility]* Diagnosis Injury of left ankle, initial encounter Acute pain of left knee documented in this encounter [facility] note* Diagnosis Missed menses- Primary Absence of menstruation Patient desires Unspecified procreative management [facility]* Diagnosis URI, acute- Primary Acute upper respiratory infections of unspecified site Nausea Nausea alone Viral illness Unspecified viral infection, in conditions classified elsewhere and of unspecified site [facility] Diagnosis Nausea vomiting and diarrhea- Primary Diarrhea Generalized abdominal pain Abdominal pain, generalized [facility] Diagnosis Encounter for test, result positive ([facility])- Primary examination or test, positive result History of ectopic Personal history of other genital system and obstetric disorders [facility] Diagnosis Acute midline low back pain without sciatica- Primary [facility] Diagnosis History of ectopic Personal history of other genital system and obstetric disorders Encounter for test, result positive ([facility]) examination or test, positive result [facility] Diagnosis Acute midline low back pain without sciatica- Primary [facility] Diagnosis Supervision of high risk , antepartum ([facility])- Primary Hx of delivery, currently ([facility]) with history of pre-term labor 8 weeks gestation of ([facility]) state, incidental Screen for STD (sexually transmitted disease) Screening examination for venereal disease Screening for cervical cancer Screening for malignant neoplasm of the cervix Special screening examination for human papillomavirus (HPV) Nausea/vomiting in ([facility]) Unspecified vomiting of , unspecified as to episode of care [facility] Diagnosis History of delivery, currently ([facility])- Primary with history of pre-term labor [facility] Diagnosis Encounter for screening for malformation ([facility])- Primary 8 weeks gestation of ([facility]) state, incidental Family history of Russel's disease- Primary Family history of other neurological diseases Supervision of high risk , antepartum ([facility]) Hx of delivery, currently ([facility]) with history of pre-term labor [facility] Diagnosis Family history of Russel's disease- Primary Family history of other neurological diseases Supervision of high risk , antepartum ([facility]) Hx of delivery, currently ([facility]) with history of pre-term labor 12 weeks gestation of ([facility])- Primary state, incidental History of delivery, currently (HCC) with history of pre-term labor [facility] Diagnosis Family history of Grayling's disease- Primary Family history of other neurological [...] PM EDTAssociated Problem(s): Hx of delivery, currently ([facility]) Biweekly cervical lengths starting at 16 weeks. * Assessment & Plan Note - Kamilla Porter MD - 12/28/2024 12:57 PM EDTAssociated Problem(s): Family history of Grayling's disease M consult with today. 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 The availability of genetic counseling and testing was reviewed and is desiredby the patient. Genetic counseling was ordered. [facility] Diagnosis Family history of Grayling's disease- Primary Family history of other neurological diseases Supervision of high risk , antepartum (HCC) Hx of delivery, currently (HCC) with history of pre-term labor Supervision of high risk , antepartum (HCC)- Primary Hx of delivery, currently (HCC) with history of pre-term labor Family history of Grayling's disease Family history of other neurological diseases 16 weeks gestation of ([facility]) state, incidental * Assessment & Plan Note - Antonieta Farrell MD - 01/26/2025 11:36 AM EDTAssociated Problem(s): Hx of delivery, currently ([facility]) CL length and early anatomy today Continue with CL * Assessment & Plan Note - Antonieta Farrell MD - 01/26/2025 11:33 AM EDTAssociated Problem(s): Family history of Russel's disease [facility] Diagnosis Family history of Grayling's disease- Primary Family history of other neurological diseases Supervision of high risk , antepartum ([facility]) Hx of delivery, currently ([facility]) with history of pre-term labor History of delivery, currently ([facility])- Primary with history of pre-term labor Encounter for screening for malformation using ultrasound ([facility]) 16 weeks gestation of ([facility]) state, incidental Supervision of high risk , antepartum ([facility])- Primary Hx of delivery, currently ([facility]) with history of pre-term labor Family history of Grayling's disease Family history of other neurological diseases 16 weeks gestation of ([facility]) state, incidental [facility] Diagnosis Family history of Russel's disease- Primary Family history of other neurological diseases Supervision of high risk , antepartum ([facility]) Hx of delivery, currently ([facility]) with history of pre-term labor Supervision of high risk , antepartum (HCC)- Primary Hx of delivery, currently ([facility]) with history of pre-term labor Family history of Grayling's disease Family history of other neurological diseases 16 weeks gestation of ([facility]) state, incidental Supervision of high risk , antepartum ([facility])- Primary Hx of delivery, currently ([facility]) with history of pre-term labor Family history of Grayling's disease Family history of other neurological diseases 18 weeks gestation of ([facility]) state, incidental Burning with urination- Primary Dysuria [facility] Diagnosis Family history of Russel's disease- Primary Family history of other neurological diseases Supervision of high risk , antepartum ([facility]) Hx of delivery, currently ([facility]) with history of pre-term labor Supervision of high risk , antepartum ([facility])- Primary Hx of delivery, currently ([facility]) with history of pre-term labor Family history of Russel's disease Family history of other neurological diseases 16 weeks gestation of ([facility]) state, incidental Supervision of high risk , antepartum ([facility])- Primary Hx of delivery, currently ([facility]) with history of pre-term labor Family history of Russel's disease Family history of other neurological diseases 18 weeks gestation of ([facility]) state, incidental Acute cystitis without hematuria- Primary Acute cystitis [facility] Diagnosis Family history of Russel's disease- Primary Family history of other neurological diseases Supervision of high risk , antepartum ([facility]) Hx of delivery, currently ([facility]) with history of pre-term labor Supervision of high risk , antepartum ([facility])- Primary Hx of delivery, currently ([facility]) with history of pre-term labor Family history of Russel's disease Family history of other neurological diseases 16 weeks gestation of ([facility]) state, incidental Supervision of high risk , antepartum ([facility])- Primary Hx of delivery, currently ([facility]) with history of pre-term labor Family history of Russel's disease Family history of other neurological diseases 18 weeks gestation of ([facility]) state, incidental 20 weeks gestation of ([facility])- Primary state, incidental Hx of delivery, currently ([facility]) with history of pre-term labor Supervision of high risk , antepartum ([facility]) Urinary tract infection without hematuria, site unspecified [facility] Diagnosis Family history of Grayling's disease- Primary Family history of other neurological diseases Supervision of high risk , antepartum ([facility]) Hx of delivery, currently ([facility]) with history of pre-term labor Supervision of high risk , antepartum (HCC)- Primary Hx of delivery, currently ([facility]) with history of pre-term labor Family history of Grayling's disease Family history of other neurological diseases 16 weeks gestation of ([facility]) state, incidental Supervision of high risk , antepartum ([facility])- Primary Hx of delivery, currently ([facility]) with history of pre-term labor Family history of Russel's disease Family history of other neurological diseases 18 weeks gestation of ([facility]) state, incidental Hx of delivery, currently ([facility])- Primary with history of pre-term labor 20 weeks gestation of ([facility]) state, incidental Supervision of high risk , antepartum ([facility]) [facility] Diagnosis Family history of Russel's disease- Primary Family history of other neurological diseases Supervision of high risk , antepartum ([facility]) Hx of delivery, currently ([facility]) with history of pre-term labor Supervision of high risk , antepartum ([facility])- Primary Hx of delivery, currently ([facility]) with history of pre-term labor Family history of Russel's disease Family history of other neurological diseases 16 weeks gestation of ([facility]) state, incidental Supervision of high risk , antepartum ([facility])- Primary Hx of delivery, currently ([facility]) with history of pre-term labor Family history of Grayling's disease Family history of other neurological diseases 18 weeks gestation of ([facility]) state, incidental Hx of delivery, currently ([facility])- Primary with history of pre-term labor 20 weeks gestation of ([facility]) state, incidental Supervision of high risk , antepartum ([facility]) 20 weeks gestation of ([facility])- Primary state, incidental Supervision of high risk , antepartum ([facility]) [facility] Diagnosis Family history of Russel's disease- Primary Family history of other neurological diseases Supervision of high risk , antepartum ([facility]) Hx of delivery, currently ([facility]) with history of pre-term labor Supervision of high risk , antepartum ([facility])- Primary Hx of delivery, currently ([facility]) with history of pre-term labor Family history of Russel's disease Family history of other neurological diseases 16 weeks gestation of ([facility]) state, incidental Supervision of high risk , antepartum ([facility])- Primary Hx of delivery, currently ([facility]) with history of pre-term labor Family history of Russel's disease Family history of other neurological diseases 18 weeks gestation of ([facility]) state, incidental Acute cystitis without hematuria Acute cystitis [facility] Diagnosis Family history of Russel's disease- Primary Family history of other neurological diseases Supervision of high risk , antepartum ([facility]) Hx of delivery, currently ([facility]) with history of pre-term labor Supervision of high risk , antepartum ([facility])- Primary Hx of delivery, currently ([facility]) with history of pre-term labor Family history of Grayling's disease Family history of other neurological diseases 16 weeks gestation of ([facility]) state, incidental Supervision of high risk , antepartum ([facility])- Primary Hx of delivery, currently ([facility]) with history of pre-term labor Family history of Russel's disease Family history of other neurological diseases 18 weeks gestation of ([facility]) state, incidental Hx of delivery, currently ([facility])- Primary with history of pre-term labor 23 weeks gestation of ([facility]) state, incidental [facility] Diagnosis Family history of Russel's disease- Primary Family history of other neurological diseases Supervision of high risk , antepartum ([facility]) Hx of delivery, currently ([facility]) with history of pre-term labor Supervision of high risk , antepartum ([facility])- Primary Hx of delivery, currently ([facility]) with history of pre-term labor Family history of Russel's disease Family history of other neurological diseases 16 weeks gestation of ([facility]) state, incidental Supervision of high risk , antepartum ([facility])- Primary Hx of delivery, currently ([facility]) with history of pre-term labor Family history of Grayling's disease Family history of other neurological diseases 18 weeks gestation of ([facility]) state, incidental Palpitations- Primary Supervision of high risk in second trimester ([facility]) Unspecified high-risk 23 weeks gestation of ([facility]) state, incidental Blurred vision Other specified visual disturbances Generalized body aches UTI (urinary tract infection) in , antepartum ([facility]) Infections of genitourinary tract antepartum documented in this encounter [facility] note* Diagnosis Family history of Grayling's disease- Primary Family history of other neurological diseases Supervision of high risk , antepartum ([facility]) Hx of delivery, currently ([facility]) with history of pre-term labor Supervision of high risk , antepartum ([facility])- Primary Hx of delivery, currently ([facility]) with history of pre-term labor Family history of Grayling's disease Family history of other neurological diseases 16 weeks gestation of ([facility]) state, incidental Supervision of high risk , antepartum ([facility])- Primary Hx of delivery, currently ([facility]) with history of pre-term labor Family history of Grayling's disease Family history of other neurological diseases 18 weeks gestation of ([facility]) state, incidental Supervision of high risk in second trimester ([facility])- Primary Unspecified high-risk 23 weeks gestation of ([facility]) state, incidental Urinary tract infection without hematuria, site unspecified Hx of delivery, currently ([facility]) with history of pre-term labor Screening for diabetes mellitus History of depression Personal history of other mental disorder History of herpes genitalis Personal history of other infectious and parasitic disease documented in this encounter [facility] note* Diagnosis Family history of Russel's disease- Primary Family history of other neurological diseases Supervision of high risk , antepartum ([facility]) Hx of delivery, currently ([facility]) with history of pre-term labor Supervision of high risk , antepartum ([facility])- Primary Hx of delivery, currently ([facility]) with history of pre-term labor Family history of Grayling's disease Family history of other neurological diseases 16 weeks gestation of ([facility]) state, incidental Supervision of high risk , antepartum ([facility])- Primary Hx of delivery, currently ([facility]) with history of pre-term labor Family history of Grayling's disease Family history of other neurological diseases 18 weeks gestation of ([facility]) state, incidental Supervision of high risk in second trimester ([facility])- Primary Unspecified high-risk 24 weeks gestation of ([facility]) state, incidental Urinary tract infection without hematuria, site unspecified Nausea Nausea alone Diarrhea, unspecified type Cramping affecting , antepartum ([facility]) Hx of delivery, currently (HCC) with history of pre-term [facility] Additional Instructions Plenty of fluids and rest. Tylenol and Motrin for pain. The antibiotic Bactrim 1 pill twice a day for the next 5 days starting tomorrow. You have a urinary tract infection. Your other labs were unremarkable. Your test was negative. Follow-up with your doctor if not improving. Return if worse.[facility] Work Phone: Hospital Discharge instructions Additional Instructions Follow-up with your [employer]PA[employer] at the [facility]. Continue Tylenol as needed for pain. Return with fever, new or worsening symptoms.[facility] Work Phone: Reason for referral (narrative)* Diagnostic Procedure Only (Urgent) - Closed Specialty Diagnoses / Procedures Referred By Arielle zuleta Referred To Contact XR IMAGING Diagnoses Acute pain of left knee Procedures XR KNEE GENERAL 4V AP BOTH/PA BOTH/LAT/MERC LEFT RADIOLOGIC EXAM KNEE COMPLETE 4/MORE VIEWS Yosi Payne APRN.CENTRAL SUPPLY ASSISTANT [address] [place] [address] Xr Imaging Referral ID Status Reason Start Date Expiration Date V isits Requested Visits Authorized [id number] Closed Auto-Generate d Referral 12/28/2021 01/27/2023 1 1 * Diagnostic Procedure Only (Urgent) - Closed Specialty Diagnoses / Procedures Referred By Contac t Referred To Contact XR IMAGING Diagnoses Injury of left ankle, initial encounter Procedures XR ANKLE GENERAL 3V AP/LAT/OBL LEFT RADEX ANKLE COMPLETE MINIMUM 3 VIEWS Yosi Payne APRN.[employer]PPLY ASSISTANT [address] [place] [address] Xr Imaging Referral ID Status Reason Start Date Expiration Date V isits Requested Visits Authorized [id number] Closed Auto-Generate d Referral 12/28/2021 01/27/2023 1 1 [facility] for referral (narrative)* Diagnostic Procedure Only (Routine) - Authorized Specialty Diagnoses / Procedures Referred By Contac t Referred To Contact US IMAGING Diagnoses Pelvic pain in female Procedures US FEMALE PELVIS TRANSVAG US TRANSVAGINAL Antonieta Farrell MD [address] [place] [address] Us Imaging Referral ID Status Reason Start Date Expiration Date Visits Requested Visits Authorized [id number] Authorized Auto-Generat ed Referral 02/03/2023 03/04/2024 1 1 [facility] for referral (narrative)* Diagnostic Procedure Only (Routine) - Closed Specialty Diagnoses / Procedures Referred By Contac t Referred To Contact US IMAGING Diagnoses Pelvic pain in female Procedures US FEMALE PELVIS TRANSVAG US TRANSVAGINAL Antonieta Farrell MD [address] [place] [address] [place] [address] Referral ID Status Reason Start Date Expiration Date V isits Requested Visits Authorized [id number] Closed Auto-Generate d Referral 02/03/2023 03/04/2024 1 1 [facility] for referral (narrative)* Outpatient Procedure (Routine) - Authorized Specialty Diagnoses / Procedures Referred By Contac t Referred To Contact [facility] Diagnoses Bilateral carpal tunnel syndrome Procedures EMG(NEURO/NI) NERVE CONDUCTION STUDIES 9-10 STUDIES Sanjana Pugh DO [address] [place] [address] [facility] [address] [place] [id number] Referral ID Status Reason Start Date Expiration Date Visits Requested Visits Authorized [id number] Authorized Auto-Generat ed Referral 03/11/2024 07/06/2024 1 1 [facility] for referral (narrative)* Diagnostic Procedure Only (Urgent) - Closed Specialty Diagnoses / Procedures Referred By Contac t Referred To Contact XR IMAGING Diagnoses Acute pain of left knee Procedures XR KNEE GENERAL 4V AP BOTH/PA BOTH/LAT/MERC LEFT RADIOLOGIC EXAM KNEE COMPLETE 4/MORE VIEWS Yosi Payne, MACIEL.CENTRAL SUPPLY ASSISTANT [address] [place] [address] [place] [address] Referral ID Status Reason Start Date Expiration Date V isits Requested Visits Authorized [id number] Closed Auto-Generate d Referral 12/28/2021 01/27/2023 1 1 * Diagnostic Procedure Only (Urgent) - Closed Specialty Diagnoses / Procedures Referred By Contac t Referred To Contact XR IMAGING Diagnoses Injury of left ankle, initial encounter Procedures XR ANKLE GENERAL 3V AP/LAT/OBL LEFT RADEX ANKLE COMPLETE MINIMUM 3 VIEWS Yosi Payne APRN.C[employer]PPLY ASSISTANT [address] [place] [address] [place] [address] Referral ID Status Reason Start Date Expiration Date V isits Requested Visits Authorized [id number] Closed Auto-Generate d Referral 12/28/2021 01/27/2023 1 1 [facility] for referral (narrative)No reason for referral information availableW[facility] Work Phone: [facility] Narrative* Diagnostic Procedure Only (Urgent) - Closed Specialty Diagnoses / Procedures Referred By Contac t Referred To Contact XR IMAGING Diagnoses Acute pain of left knee Procedures XR KNEE GENERAL 4V AP BOTH/PA BOTH/LAT/MERC LEFT RADIOLOGIC EXAM KNEE COMPLETE 4/MORE VIEWS Yosi Payne, MACIEL.CENTRAL SUPPLY ASSISTANT [address] [place] [address] [place] [address] Referral ID Status Reason Start Date Expiration Date V isits Requested Visits Authorized [id number] Closed Auto-Generate d Referral 12/28/2021 01/27/2023 1 1 [facility] N[facility]* Diagnostic Procedure Only (Routine) - Closed Specialty Diagnoses / Procedures Referred By Arielle zuleta Referred To Contact [facility] Diagnoses History of ectopic Encounter for test, result positive (HCC) Procedures OBSTETRIC ULTRASOUND WHI US PREG UTERUS AFTER 1ST TRIMEST GESTATION Reji Ding MD [address] [place] [address] Phone: tel: fax: [facility] [address] [place] [address] Referral ID Status Reason Start Date Expiration Date V isits Requested Visits Authorized [id number] Closed Auto-Generate d Referral 11/01/2024 11/01/2025 1 1 [facility] Summary Purpose Family History No Family History Records FoundNo Family History Records FoundNo Family History Records FoundNo Family History Records Found Advance Directives No Advanced Directives Records FoundDocuments on File Type Date Recorded Patient Dental Associate Expl anation Advance Directive(s) 03/15/2021 11:36 PM Documents on File Type Date Recorded Patient Dental Associate Expl anation Advance Directive(s) 03/15/2021 11:36 PM Advance Directive Response Recorded Date/ Time Living Will No January 01, 2023 10:55pm Power of Fairing Worker No January 01 10:55pm Advance Directive Response Recorded Date/ Time Living Will No October 09, 2023 5:14pm Power of Fairing Worker No October 08 5:14pm Advance Directive Response Recorded Date/ Time Do you have a Healthcare Power of Fairing Worker? No November 11, 2024 11:49am Health Concerns Infection Onset Date Last Indicated Resolved Time COVID-19 Rule-Out 12/25/2022 12/25/2022 12/26/2022 3:07 AM EDT Chief Complaint and Reason for Visit Chief Complaint FLANK Chief Complaint headache Chief Complaint Admit Date FLANK November 11, 2024 11:49a m Additional Source Comments INFORMATION SOURCE (unrecogn ized section and content) DATE CREATED AUTHOR 02/02/2020 [facility] DATE CREATED AUTHOR AUTHOR'S ORGANIZ ATION 05/15/2025 [facility] DATE CREATED AUTHOR AUTHOR'S ORGANIZ ATION 05/19/2025 [facility] DATE CREATED AUTHOR AUTHOR'S ORGANIZ ATION 05/19/2025 [facility] Source Comments (unrecognize d section and content) In the event this informatio n is protected by the Federal Confidentiality of Alcohol and Drug Abuse Patient Records regulations: The Federal rules restrict any use of the information to criminally investigate or prosecute any alcohol or drug abuse patient.[facility] DaytonIn the event this information is protected by the Federal Confidentiality of Alcohol and Drug Abuse Patient Records regulations: The Federal rules restrict any use of the information to criminally investigate or prosecute any alcohol or drug abuse patient.[facility] DaytonIn the event this information is protected by the Federal Confidentiality of Alcohol and Drug Abuse Patient Records regulations: The Federal rules restrict any use of the information to criminally investigate or prosecute any alcohol or drug abuse patient.[facility] DaytonIn the event this information is protected by the Federal Confidentiality of Alcohol and Drug Abuse Patient Records regulations: The Federal rules restrict any use of the information to criminally investigate or prosecute any alcohol or drug abuse patient.[facility] DaytonIn the event this information is protected by the Federal Confidentiality of Alcohol and Drug Abuse Patient Records regulations: The Federal rules restrict any use of the information to criminally investigate or prosecute any alcohol or drug abuse patient.[facility] DaytonIn the event this information is protected by the Federal Confidentiality of Alcohol and Drug Abuse Patient Records regulations: The Federal rules restrict any use of the information to criminally investigate or prosecute any alcohol or drug abuse patient.[facility] DaytonIn the event this information is protected by the Federal Confidentiality of Alcohol and Drug Abuse Patient Records regulations: The Federal rules restrict any use of the information to criminally investigate or prosecute any alcohol or drug abuse patient.[facility] DaytonIn the event this information is protected by the Federal Confidentiality of Alcohol and Drug Abuse Patient Records regulations: The Federal rules restrict any use of the information to criminally investigate or prosecute any alcohol or drug abuse patient.[facility] DaytonIn the event this information is protected by the Federal Confidentiality of Alcohol and Drug Abuse Patient Records regulations: The Federal rules restrict any use of the information to criminally investigate or prosecute any alcohol or drug abuse patient.[facility] DaytonIn the event this information is protected by the Federal Confidentiality of Alcohol and Drug Abuse Patient Records regulations: The Federal rules restrict any use of the information to criminally investigate or prosecute any alcohol or drug abuse patient.[facility] DaytonIn the event this information is protected by the Federal Confidentiality of Alcohol and Drug Abuse Patient Records regulations: The Federal rules restrict any use of the information to criminally investigate or prosecute any alcohol or drug abuse patient.[facility] DaytonIn the event this information is protected by the Federal Confidentiality of Alcohol and Drug Abuse Patient Records regulations: The Federal rules restrict any use of the information to criminally investigate or prosecute any alcohol or drug abuse patient.[facility] DaytonIn the event this information is protected by the Federal Confidentiality of Alcohol and Drug Abuse Patient Records regulations: The Federal rules restrict any use of the information to criminally investigate or prosecute any alcohol or drug abuse patient.[facility] DaytonIn the event this information is protected by the Federal Confidentiality of Alcohol and Drug Abuse Patient Records regulations: The Federal rules restrict any use of the information to criminally investigate or prosecute any alcohol or drug abuse patient.[facility] DaytonIn the event this information is protected by the Federal Confidentiality of Alcohol and Drug Abuse Patient Records regulations: The Federal rules restrict any use of the information to criminally investigate or prosecute any alcohol or drug abuse patient.[facility] DaytonIn the event this information is protected by the Federal Confidentiality of Alcohol and Drug Abuse Patient Records regulations: The Federal rules restrict any use of the information to criminally investigate or prosecute any alcohol or drug abuse patient.[facility] DaytonIn the event this information is protected by the Federal Confidentiality of Alcohol and Drug Abuse Patient Records regulations: The Federal rules restrict any use of the information to criminally investigate or prosecute any alcohol or drug abuse patient.[facility] DaytonIn the event this information is protected by the Federal Confidentiality of Alcohol and Drug Abuse Patient Records regulations: The Federal rules restrict any use of the information to criminally investigate or prosecute any alcohol or drug abuse patient.[facility] DaytonIn the event this information is protected by the Federal Confidentiality of Alcohol and Drug Abuse Patient Records regulations: The Federal rules restrict any use of the information to criminally investigate or prosecute any alcohol or drug abuse patient.[facility] DaytonIn the event this information is protected by the Federal Confidentiality of Alcohol and Drug Abuse Patient Records regulations: The Federal rules restrict any use of the information to criminally investigate or prosecute any alcohol or drug abuse patient.[facility] DaytonIn the event this information is protected by the Federal Confidentiality of Alcohol and Drug Abuse Patient Records regulations: The Federal rules restrict any use of the information to criminally investigate or prosecute any alcohol or drug abuse patient.[facility] DaytonIn the event this information is protected by the Federal Confidentiality of Alcohol and Drug Abuse Patient Records regulations: The Federal rules restrict any use of the information to criminally investigate or prosecute any alcohol or drug abuse patient.[facility] DaytonIn the event this information is protected by the Federal Confidentiality of Alcohol and Drug Abuse Patient Records regulations: The Federal rules restrict any use of the information to criminally investigate or prosecute any alcohol or drug abuse patient.[facility] DaytonIn the event this information is protected by the Federal Confidentiality of Alcohol and Drug Abuse Patient Records regulations: The Federal rules restrict any use of the information to criminally investigate or prosecute any alcohol or drug abuse patient.[facility] DaytonIn the event this information is protected by the Federal Confidentiality of Alcohol and Drug Abuse Patient Records regulations: The Federal rules restrict any use of the information to criminally investigate or prosecute any alcohol or drug abuse patient.[facility] DaytonIn the event this information is protected by the Federal Confidentiality of Alcohol and Drug Abuse Patient Records regulations: The Federal rules restrict any use of the information to criminally investigate or prosecute any alcohol or drug abuse patient.[facility] DaytonIn the event this information is protected by the Federal Confidentiality of Alcohol and Drug Abuse Patient Records regulations: The Federal rules restrict any use of the information to criminally investigate or prosecute any alcohol or drug abuse patient.[facility] DaytonIn the event this information is protected by the Federal Confidentiality of Alcohol and Drug Abuse Patient Records regulations: The Federal rules restrict any use of the information to criminally investigate or prosecute any alcohol or drug abuse patient.[facility] DaytonIn the event this information is protected by the Federal Confidentiality of Alcohol and Drug Abuse Patient Records regulations: The Federal rules restrict any use of the information to criminally investigate or prosecute any alcohol or drug abuse patient.[facility] DaytonIn the event this information is protected by the Federal Confidentiality of Alcohol and Drug Abuse Patient Records regulations: The Federal rules restrict any use of the information to criminally investigate or prosecute any alcohol or drug abuse patient.[facility] DaytonIn the event this information is protected by the Federal Confidentiality of Alcohol and Drug Abuse Patient Records regulations: The Federal rules restrict any use of the information to criminally investigate or prosecute any alcohol or drug abuse patient.[facility] DaytonIn the event this information is protected by the Federal Confidentiality of Alcohol and Drug Abuse Patient Records regulations: The Federal rules restrict any use of the information to criminally investigate or prosecute any alcohol or drug abuse patient.[facility] DaytonIn the event this information is protected by the Federal Confidentiality of Alcohol and Drug Abuse Patient Records regulations: The Federal rules restrict any use of the information to criminally investigate or prosecute any alcohol or drug abuse patient.[facility] DaytonIn the event this information is protected by the Federal Confidentiality of Alcohol and Drug Abuse Patient Records regulations: The Federal rules restrict any use of the information to criminally investigate or prosecute any alcohol or drug abuse patient.[facility] DaytonIn the event this information is protected by the Federal Confidentiality of Alcohol and Drug Abuse Patient Records regulations: The Federal rules restrict any use of the information to criminally investigate or prosecute any alcohol or drug abuse patient.[facility] DaytonIn the event this information is protected by the Federal Confidentiality of Alcohol and Drug Abuse Patient Records regulations: The Federal rules restrict any use of the information to criminally investigate or prosecute any alcohol or drug abuse patient.[facility] DaytonIn the event this information is protected by the Federal Confidentiality of Alcohol and Drug Abuse Patient Records regulations: The Federal rules restrict any use of the information to criminally investigate or prosecute any alcohol or drug abuse patient.[facility] DaytonIn the event this information is protected by the Federal Confidentiality of Alcohol and Drug Abuse Patient Records regulations: The Federal rules restrict any use of the information to criminally investigate or prosecute any alcohol or drug abuse patient.[facility] DaytonIn the event this information is protected by the Federal Confidentiality of Alcohol and Drug Abuse Patient Records regulations: The Federal rules restrict any use of the information to criminally investigate or prosecute any alcohol or drug abuse patient.[facility] DaytonIn the event this information is protected by the Federal Confidentiality of Alcohol and Drug Abuse Patient Records regulations: The Federal rules restrict any use of the information to criminally investigate or prosecute any alcohol or drug abuse patient.[facility] DaytonIn the event this information is protected by the Federal Confidentiality of Alcohol and Drug Abuse Patient Records regulations: The Federal rules restrict any use of the information to criminally investigate or prosecute any alcohol or drug abuse patient.[facility] DaytonIn the event this information is protected by the Federal Confidentiality of Alcohol and Drug Abuse Patient Records regulations: The Federal rules restrict any use of the information to criminally investigate or prosecute any alcohol or drug abuse patient.[facility] DaytonIn the event this information is protected by the Federal Confidentiality of Alcohol and Drug Abuse Patient Records regulations: The Federal rules restrict any use of the information to criminally investigate or prosecute any alcohol or drug abuse patient.[facility] DaytonIn the event this information is protected by the Federal Confidentiality of Alcohol and Drug Abuse Patient Records regulations: The Federal rules restrict any use of the information to criminally investigate or prosecute any alcohol or drug abuse patient.[facility] DaytonIn the event this information is protected by the Federal Confidentiality of Alcohol and Drug Abuse Patient Records regulations: The Federal rules restrict any use of the information to criminally investigate or prosecute any alcohol or drug abuse patient.[facility] DaytonIn the event this information is protected by the Federal Confidentiality of Alcohol and Drug Abuse Patient Records regulations: The Federal rules restrict any use of the information to criminally investigate or prosecute any alcohol or drug abuse patient.[facility] DaytonIn the event this information is protected by the Federal Confidentiality of Alcohol and Drug Abuse Patient Records regulations: The Federal rules restrict any use of the information to criminally investigate or prosecute any alcohol or drug abuse patient.[facility] DaytonIn the event this information is protected by the Federal Confidentiality of Alcohol and Drug Abuse Patient Records regulations: The Federal rules restrict any use of the information to criminally investigate or prosecute any alcohol or drug abuse patient.[facility] DaytonIn the event this information is protected by the Federal Confidentiality of Alcohol and Drug Abuse Patient Records regulations: The Federal rules restrict any use of the information to criminally investigate or prosecute any alcohol or drug abuse patient.[facility] DaytonIn the event this information is protected by the Federal Confidentiality of Alcohol and Drug Abuse Patient Records regulations: The Federal rules restrict any use of the information to criminally investigate or prosecute any alcohol or drug abuse patient.[facility] DaytonIn the event this information is protected by the Federal Confidentiality of Alcohol and Drug Abuse Patient Records regulations: The Federal rules restrict any use of the information to criminally investigate or prosecute any alcohol or drug abuse patient.[facility] DaytonIn the event this information is protected by the Federal Confidentiality of Alcohol and Drug Abuse Patient Records regulations: The Federal rules restrict any use of the information to criminally investigate or prosecute any alcohol or drug abuse patient.[facility] DaytonIn the event this information is protected by the Federal Confidentiality of Alcohol and Drug Abuse Patient Records regulations: The Federal rules restrict any use of the information to criminally investigate or prosecute any alcohol or drug abuse patient.[facility] DaytonIn the event this information is protected by the Federal Confidentiality of Alcohol and Drug Abuse Patient Records regulations: The Federal rules restrict any use of the information to criminally investigate or prosecute any alcohol or drug abuse patient.[facility] DaytonIn the event this information is protected by the Federal Confidentiality of Alcohol and Drug Abuse Patient Records regulations: The Federal rules restrict any use of the information to criminally investigate or prosecute any alcohol or drug abuse patient.[facility] DaytonIn the event this information is protected by the Federal Confidentiality of Alcohol and Drug Abuse Patient Records regulations: The Federal rules restrict any use of the information to criminally investigate or prosecute any alcohol or drug abuse patient.[facility] DaytonIn the event this information is protected by the Federal Confidentiality of Alcohol and Drug Abuse Patient Records regulations: The Federal rules restrict any use of the information to criminally investigate or prosecute any alcohol or drug abuse patient.[facility] DaytonIn the event this information is protected by the Federal Confidentiality of Alcohol and Drug Abuse Patient Records regulations: The Federal rules restrict any use of the information to criminally investigate or prosecute any alcohol or drug abuse patient.[facility] DaytonIn the event this information is protected by the Federal Confidentiality of Alcohol and Drug Abuse Patient Records regulations: The Federal rules restrict any use of the information to criminally investigate or prosecute any alcohol or drug abuse patient.[facility] DaytonIn the event this information is protected by the Federal Confidentiality of Alcohol and Drug Abuse Patient Records regulations: The Federal rules restrict any use of the information to criminally investigate or prosecute any alcohol or drug abuse patient.[facility] DaytonIn the event this information is protected by the Federal Confidentiality of Alcohol and Drug Abuse Patient Records regulations: The Federal rules restrict any use of the information to criminally investigate or prosecute any alcohol or drug abuse patient.[facility] DaytonIn the event this information is protected by the Federal Confidentiality of Alcohol and Drug Abuse Patient Records regulations: The Federal rules restrict any use of the information to criminally investigate or prosecute any alcohol or drug abuse patient.[facility] DaytonIn the event this information is protected by the Federal Confidentiality of Alcohol and Drug Abuse Patient Records regulations: The Federal rules restrict any use of the information to criminally investigate or prosecute any alcohol or drug abuse patient.[facility] Reason for Visit (unrecogniz ed section and [...] TRANSVAGINAL Antonieta Farrell MD [address] [place] [address] [place] [address] Referral ID Status Reason Start Date Expiration Date V isits Requested Visits Authorized [id number] Closed Auto-Generate d Referral 02/03/2023 03/04/2024 1 [...] STUDIES Sanjana Pugh, DO [address] [place] [address] [place] [address] Referral ID Status Reason Start Date Expiration Date V isits Requested Visits Authorized [id number] Closed Auto-Generate d Referral 03/11/2024 07/06/2024 1 [...] Referred By Contac t Referred To Contact [facility] Diagnoses 8 weeks gestation of ([facility]) Procedures OBSTETRIC ULTRASOUND WHI US PREG UTERUS AFTER 1ST TRIMEST GESTATION Paola Hill, MACIEL.CENTRAL SUPPLY ASSISTANT [address] [place] [address] Phone: tel: fax: [place] [phone] Referral ID Status Reason Start Date Expiration Date V isits Requested Visits Authorized [id number] Closed Auto-Generate d Referral 11/30/2024 11/30/2025 1 1 Reason Comments Consult Specialty Diagnoses / Procedures Referred By Contac t Referred To Contact Diagnoses History of delivery, currently (HCC) Procedures CONSULT TO MATERNAL MEDI OFFICE/OUTPATIENT NEW HIGH MDM 60 MINUTES Marcia Farrell APRN.LAUREN [address] [place] [address] Phone: tel: fax: Referral ID Status Reason Start Date Expiration Date V isits Requested Visits Authorized [id number] Closed PCP Requested Referral Auto-Generated Referral 12/14/2024 12/14/2025 1 1 Reason Onset Date Comments Care 12/28/2024 Reason Onset Date Comments Care 01/26/2025 Specialty Diagnoses / Procedures Referred By Contac t Referred To Contact [facility] Diagnoses History of delivery, currently ([facility]) Procedures OBSTETRIC ULTRASOUND WHI US PREG UTERUS AFTER 1ST TRIMEST GESTATION Scott Alcazar MD [address] [place] [address] Phone: tel: fax: [address] [address] Referral ID Status Reason Start Date Expiration Date V isits Requested Visits Authorized [id number] Closed Auto-Generate d Referral 12/28/2024 12/28/2025 1 1 Reason Comments Urinary Problem Burning and frequenc y x 3 days Reason Comments Care Reason Onset Date Comments Care 02/23/2025 Specialty Diagnoses / Procedures Referred By Contac t Referred To Contact [facility] Diagnoses 20 weeks gestation of (HCC) Supervision of high risk , antepartum ([facility]) Procedures OBSTETRIC ULTRASOUND WHI US PREG UTERUS AFTER 1ST TRIMEST GESTATION Marcia Farrell APRN.LAUREN [address] [place] [address] Phone: tel: fax: [place] [phone] [place] [address] Referral ID Status Reason Start Date Expiration Date V isits Requested Visits Authorized [id number] Closed Auto-Generat ed Referral Patient Cleared - Admin/Chairm an/Director advise to proceed or did not respond 02/23/2025 07/06/2025 1 1 Reason Comments OB UTI Specialty Diagnoses / Procedures Referred By Contac t Referred To Contact [facility] Diagnoses Supervision of high risk , antepartum (HCC) Hx of delivery, currently (HCC) Procedures OBSTETRIC ULTRASOUND WHI US PREG UTERUS AFTER 1ST TRIMEST GESTATION Marcia Farrell APRN.CNM [address] [place] [address] Phone: tel: fax: [facility] [address] [place] [address] Referral ID Status Reason Start Date Expiration Date V isits Requested Visits Authorized [id number] Closed Auto-Generate d Referral 03/11/2025 02/23/2026 1 1 Reason Comments Patient Update Reason Onset Date Comments Care 03/14/2025 Reason Onset Date Comments Care 03/11/2025 Reason Onset Date Comments Care 03/22/2025 Care Teams (unrecognized sec tion and content) Stunner Relationship Specialty Start Date End Date Melissa Cabezas [address] [place] [address] PCP - General Pediatrics 02/04/14 Stunner Relationship Specialty Start Date End Date Melissa Cabezas [address] [place] [address] PCP - General Pediatrics 02/04/14 Stunner Relationship Specialty Start Date End Date Melissa Cabezas [address] [place] [address] PCP - General Pediatrics 02/04/14 Stunner Relationship Specialty Start Date End Date Melissa Cabezas [address] [place] [address] PCP - General Pediatrics 02/04/14 Stunner Relationship Specialty Start Date End Date Melissa Cabezas [address] [place] [address] PCP - General Pediatrics 02/04/14 Stunner Relationship Specialty Start Date End Date Melissa Cabezas [address] [place] [address] PCP - General Pediatrics 02/04/14 Stunner Relationship Specialty Start Date End Date Melissa Cabezas [address] [place] [address] PCP - General Pediatrics 02/04/14 Stunner Relationship Specialty Start Date End Date Melissa Cabezas [address] [place] [address] PCP - General Pediatrics 02/04/14 Stunner Relationship Specialty Start Date End Date Pascual Melissa Ann [address] [place] [address] PCP - General Pediatrics 02/04/14 Stunner Relationship Specialty Start Date End Date Melissa Cabezas [address] [place] [address] PCP - General Pediatrics 02/04/14 Stunner Relationship Specialty Start Date End Date Melissa Cabezas [address] [place] [address] PCP - General Pediatrics 02/04/14 Team Status: Active Member Role Status Dates Dr. Melissa Cabezas MD Family Provider Active Dr. Melissa Cabezas MD Primary Care Provider Active Team Status: Inactive Member Role Status Dates Dr. Melissa Cabezas MD Primary Care Provider Active Dr. Jonathan Rush MD Emergency Provider Active Stunner Relationship Specialty Start Date End Date Melissa Cabezas [address] [place] [address] PCP - General Pediatrics 02/04/14 Stunner Relationship Specialty Start Date End Date Melissa Cabezas [address] [place] [address] PCP - General Pediatrics 02/04/14 Stunner Relationship Specialty Start Date End Date Melissa Cabezas [address] [place] [address] PCP - General Pediatrics 02/04/14 Stunner Relationship Specialty Start Date End Date Melissa Cabezas [address] [place] [address] PCP - General Pediatrics 02/04/14 Stunner Relationship Specialty Start Date End Date Melissa Cabezas [address] [place] [address] PCP - General Pediatrics 02/04/14 Stunner Relationship Specialty Start Date End Date Melissa Cabezas [address] [place] [address] PCP - General Pediatrics 02/04/14 Stunner Relationship Specialty Start Date End Date Melissa Cabezas MD [address] [place] [address] PCP - General Pediatrics 02/04/14 Stunner Relationship Specialty Start Date End Date Melissa Cabezas MD [address] [place] [address] PCP - General Pediatrics 02/04/14 Stunner Relationship Specialty Start Date End Date Melissa Cabezas MD [address] [place] [address] PCP - General Pediatrics 02/04/14 Team Status: Inactive Member Role Status Dates Dr. Melissa Cabezas MD Primary Care Provider Active Dr. Eze Norman DO Emergency Provider Active Stunner Relationship Specialty Start Date End Date Melissa Cabezas MD [address] [place] [address] PCP - General Pediatrics 02/04/14 Stunner Relationship Specialty Start Date End Date Melissa Cabezas MD [address] [place], [place] [address] PCP - General Pediatrics 02/04/14 Stunner Relationship Specialty Start Date End Date Melissa Cabezas MD [address] [place], [place] [address] PCP - General Pediatrics 02/04/14 Stunner Relationship Specialty Start Date End Date Melissa Cabezas MD [address] [place], [place] [id number] PCP - General Pediatrics 02/04/14 Stunner Relationship Specialty Start Date End Date Melissa Cabezas MD [address] [place], [place] [id number] PCP - General Pediatrics 02/04/14 10/13/24 Team [...] BE BASED ON THE PRIMARY CLINICAL RECORDS. [facility]. provides no warranty or guarantee of the accuracy or completeness of information in this document.
[2025-06-30] MEDS: Lactated Ringers 1,000 ML 999 ML IV (21:20)
[2025-06-30 21:34] LABS: Hematocrit 36.5 % (37-47); Hemoglobin 12.2 g/dL (12.0-15.0); Immature Granulocytes Count 0.130 X10^3/uL (0.0-0.0); Mean Corp Hgb Conc 33.4 g/dL (32-36); Mean Corpuscular Volume 88.0 fL (81-99); Mean Platelet Vol. 11.0 fl (6.2-12.0); NRBC Flagged by Analyzer 0 % (0-5); Platelet Count 177 K/mm3 (150-450); RBC Distribution Width CV 18.2 % (11.6-14.6); RBC Distribution Width SD 58.2 fl (35.1-43.9); Red Blood Count 4.15 M/mm3 (4.2-5.4); White Blood Count 11.0 K/mm3 (4.4-11.0)
[2025-06-30 22:04] LABS: Syphilis Antibodies Nonreactive (Nonreactive)
[2025-06-30] MEDS: fentaNYL-bupivacaine (epidural) 100 ML BAG EPIDURAL (22:20)
[2025-06-30] MEDS: Lactated Ringers 1,000 ML 200 ML IV (22:21)
[2025-06-30] MEDS: 0.9% Saline Lock 10 ML Syringe IV (23:03)
[2025-06-30 23:38] LABS: Barbiturate Urine NEGATIVE (< 200 ng/mL); Benzodiazepine Urine NEGATIVE (< 200 ng/mL); PCP Urine NEGATIVE (< 25 ng/mL); THC Urine NEGATIVE (< 50 ng/mL)
[2025-07-01] VITALS (43 sets, daily range): BP systolic 101–136; BP diastolic 64–88; PULSE 62–96; RESP 16–17; TEMP 36.2–36.9; O2SAT 85–100
[2025-07-01] MEDS: Oxytocin 15 Units/NS 250ml 15 UNITS/250 ML IV.SOLN 334 UNITS IV (03:23)
--- NOTE | 2025-07-01 03:33 | PCM.HP.OB ---
HPI - General General Date of Admission: 06/30/25 HPI Narrative DONYA SCHWAB, is a 24 F who presents [ at 39w0d with SROM. ] Maternal Data Information ABRAHAM Calculator Estimated Delivery Date Method Current WG Current Estimate 07/08/25 Manual 39w 0d PFSH [facility] Medical History (Updated 07/01/25 @ 03:39 by Nilda Jean CNM) History of premature rupture of membranes (PPROM) History of pre-term labor Cervical incompetence Anxiety Gestational diabetes IBS (irritable bowel syndrome) Depression GERD (gastroesophageal reflux disease) Home Medications ?Medication ?Instructions ?Recorded ?Last Taken ?Type valacyclovir 1 gram tablet 1,000 mg PO DAILY PRN hsv 11/11/20 05/01/21 06:30 History (Valtrex) [id number] 1 mg 1 tab PO DAILY 03/07/21 05/13/25 08:00 History tablet 1 TAB escitalopram oxalate 10 mg tablet 10 mg PO DAILY 05/14/25 05/12/25 08:00 History (Lexapro) 10 mg ferrous sulfate 325 mg (65 mg 325 mg PO BID 05/14/25 05/13/25 08:00 History iron) tablet (FeroSul) 325 mg aspirin 81 mg tablet,delayed 81 mg PO DAILY 06/30/25 Unknown History release (Adult Low Dose Aspirin) Allergy/AdvReac Type Severity Reaction Status Date / Time adhesive tape Allergy Mild Rash Verified 06/30/25 19:48 Latex, Natural Rubber AdvReac Rash Verified 06/30/25 19:48 Surgical History History of gynecologic surgery Social History Smoking Status: Current every day smoker tobacco type: e-cigarettes History Elective abortions Hx Para 3 Spontaneous abortions Hx # Term Pregnancies Ectopic pregnancies Hx # Pregnancies Multiple births # of living children NST FHR Rate Baby A Baseline: 125 Variability:: Moderate Accelerations:: 15 x 15 Decelerations:: Variable FHR Category:: Category II Uterine Activity:: Every 1-3 minutes, strong ROS Constitutional Constitutional: Reports systems reviewed and no addt'l complaints, except as documented; Denies headache(s) Eyes Eyes: Denies acute decrease in peripheral vision, blurry vision or change in vision ENT HEENT: Reports systems reviewed and no addt'l complaints, except as documented Cardiovascular Cardiovascular: Denies chest pain or dizziness Respiratory/Chest Respiratory/Chest: Denies cough, dyspnea, dyspnea on exertion, shortness of breath at rest or shortness of breath with exertion Gastrointestinal Gastrointestinal: Denies abdominal pain, diarrhea, nausea or vomiting Genitourinary Genitourinary: Denies abdominal discomfort Musculoskeletal Musculoskeletal: Denies limited range of motion Integumentary Integumentary: Reports systems reviewed and no addt'l complaints, except as documented Neurologic Neurologic: Reports systems reviewed and no addt'l complaints, except as documented Psychiatric Psychiatric: Reports systems reviewed and no addt'l complaints, except as documented Endocrine Endocrinology: Reports systems reviewed and no addt'l complaints, except as documented Hematologic/Lymphatic Hematologic/Lymphatic: Reports systems reviewed and no addt'l complaints, except as documented Allergic/Immunologic Allergic/Immunologic: Reports systems reviewed and no addt'l complaints, except as documented Vital Signs Vital Signs Vital Signs: 06/30/25 19:38 06/30/25 19:38 06/30/25 19:43 Temperature Temperature Source Pulse Rate 107 H 98 Respiratory Rate Blood Pressure BP Systolic BP Diastolic Pulse Ox 98 06/30/25 19:43 06/30/25 19:44 06/30/25 19:44 Temperature Temperature Source Pulse Rate 115 H Respiratory Rate Blood Pressure 122/81 H BP Systolic 122 BP Diastolic 81 Pulse Ox 98 06/30/25 19:46 06/30/25 19:46 06/30/25 19:46 Temperature 97.8 F Temperature Source Temporal Pulse Rate Respiratory Rate 16 Blood Pressure BP Systolic BP Diastolic Pulse Ox 06/30/25 21:59 06/30/25 21:59 06/30/25 22:00 Temperature Temperature Source Pulse Rate 96 Respiratory Rate Blood Pressure 127/94 H BP Systolic 127 BP Diastolic 94 Pulse Ox 100 06/30/25 22:00 06/30/25 22:00 06/30/25 22:04 Temperature Temperature Source Pulse Rate 101 H 96 Respiratory Rate 16 Blood Pressure BP Systolic BP Diastolic Pulse Ox 06/30/25 22:04 06/30/25 22:05 06/30/25 22:05 Temperature Temperature Source Pulse Rate 95 Respiratory Rate Blood Pressure 132/91 H BP Systolic 132 BP Diastolic 91 Pulse Ox 100 06/30/25 22:05 06/30/25 22:09 06/30/25 22:09 Temperature Temperature Source Pulse Rate 98 Respiratory Rate 17 Blood Pressure BP Systolic BP Diastolic Pulse Ox 100 06/30/25 22:10 06/30/25 22:10 06/30/25 22:10 Temperature Temperature Source Pulse Rate 89 Respiratory Rate 17 Blood Pressure 136/92 H BP Systolic 136 BP Diastolic 92 Pulse Ox 06/30/25 22:12 06/30/25 22:12 06/30/25 22:12 Temperature Temperature Source Pulse Rate 94 Respiratory Rate 18 Blood Pressure 126/83 H BP Systolic 126 BP Diastolic 83 Pulse Ox 06/30/25 22:14 06/30/25 22:14 06/30/25 22:15 Temperature Temperature Source Pulse Rate 94 Respiratory Rate Blood Pressure 134/89 H BP Systolic 134 BP Diastolic 89 Pulse Ox 100 06/30/25 22:15 06/30/25 22:15 06/30/25 22:19 Temperature Temperature Source Pulse Rate 87 89 Respiratory Rate 18 Blood Pressure BP Systolic BP Diastolic Pulse Ox 06/30/25 22:19 06/30/25 22:20 06/30/25 22:20 Temperature Temperature Source Pulse Rate 85 Respiratory Rate Blood Pressure 119/74 BP Systolic 119 BP Diastolic 74 Pulse Ox 100 06/30/25 22:20 06/30/25 22:24 06/30/25 22:24 Temperature Temperature Source Pulse Rate 87 Respiratory Rate 18 Blood Pressure BP Systolic BP Diastolic Pulse Ox 100 06/30/25 22:29 06/30/25 22:29 06/30/25 22:30 Temperature Temperature Source Pulse Rate 84 Respiratory Rate Blood Pressure 115/77 BP Systolic 115 BP Diastolic 77 Pulse Ox 97 06/30/25 22:30 06/30/25 22:30 06/30/25 22:30 Temperature Temperature Source Temporal Pulse Rate 83 Respiratory Rate 16 Blood Pressure BP Systolic BP Diastolic Pulse Ox 06/30/25 22:30 06/30/25 22:30 06/30/25 22:31 Temperature 97.9 F Temperature Source Pulse Rate 85 Respiratory Rate 18 Blood Pressure BP Systolic BP Diastolic Pulse Ox 06/30/25 22:31 06/30/25 22:34 06/30/25 22:34 Temperature Temperature Source Pulse Rate 87 Respiratory Rate Blood Pressure BP Systolic BP Diastolic Pulse Ox 90 92 06/30/25 22:36 06/30/25 22:36 06/30/25 22:36 Temperature Temperature Source Pulse Rate 90 Respiratory Rate 17 Blood Pressure 116/77 BP Systolic 116 BP Diastolic 77 Pulse Ox 06/30/25 22:39 06/30/25 22:39 06/30/25 22:40 Temperature Temperature Source Pulse Rate 85 Respiratory Rate Blood Pressure 119/79 BP Systolic 119 BP Diastolic 79 Pulse Ox 99 06/30/25 22:40 06/30/25 22:40 06/30/25 22:41 Temperature Temperature Source Pulse Rate 82 Respiratory Rate 18 Blood Pressure 123/86 H BP Systolic 123 BP Diastolic 86 Pulse Ox 06/30/25 22:41 06/30/25 22:44 06/30/25 22:44 Temperature Temperature Source Pulse Rate 88 88 Respiratory Rate Blood Pressure BP Systolic BP Diastolic Pulse Ox 99 06/30/25 22:45 06/30/25 22:45 06/30/25 22:49 Temperature Temperature Source Pulse Rate 91 85 Respiratory Rate Blood Pressure 125/89 H BP Systolic 125 BP Diastolic 89 Pulse Ox 06/30/25 22:49 06/30/25 22:50 06/30/25 22:50 Temperature Temperature Source Pulse Rate 88 Respiratory Rate Blood Pressure 121/86 H BP Systolic 121 BP Diastolic 86 Pulse Ox 99 06/30/25 22:54 06/30/25 22:54 06/30/25 22:55 Temperature Temperature Source Pulse Rate 86 Respiratory Rate Blood Pressure 121/78 H BP Systolic 121 BP Diastolic 78 Pulse Ox 99 06/30/25 22:55 06/30/25 22:59 06/30/25 22:59 Temperature Temperature Source Pulse Rate 82 98 Respiratory Rate Blood Pressure BP Systolic BP Diastolic Pulse Ox 98 06/30/25 23:04 06/30/25 23:04 06/30/25 23:09 Temperature Temperature Source Pulse Rate 87 79 Respiratory Rate Blood Pressure BP Systolic BP Diastolic Pulse Ox 99 06/30/25 23:09 06/30/25 23:14 06/30/25 23:14 Temperature Temperature Source Pulse Rate 80 Respiratory Rate Blood Pressure BP Systolic BP Diastolic Pulse Ox 97 97 06/30/25 23:19 06/30/25 23:19 06/30/25 23:23 Temperature Temperature Source Pulse Rate 83 81 Respiratory Rate Blood Pressure BP Systolic BP Diastolic Pulse Ox 96 06/30/25 23:23 06/30/25 23:24 06/30/25 23:24 Temperature Temperature Source Pulse Rate 78 Respiratory Rate Blood Pressure BP Systolic BP Diastolic Pulse Ox 93 94 06/30/25 23:28 06/30/25 23:28 06/30/25 23:29 Temperature Temperature Source Pulse Rate 79 83 Respiratory Rate Blood Pressure BP Systolic BP Diastolic Pulse Ox 92 06/30/25 23:29 06/30/25 23:34 06/30/25 23:34 Temperature Temperature Source Pulse Rate 86 Respiratory Rate Blood Pressure BP Systolic BP Diastolic Pulse Ox 96 98 06/30/25 23:39 06/30/25 23:39 06/30/25 23:44 Temperature Temperature Source Pulse Rate 78 74 Respiratory Rate Blood Pressure BP Systolic BP Diastolic Pulse Ox 98 06/30/25 23:44 06/30/25 23:49 06/30/25 23:49 Temperature Temperature Source Pulse Rate 75 Respiratory Rate Blood Pressure BP Systolic BP Diastolic Pulse Ox 98 97 06/30/25 23:53 06/30/25 23:53 06/30/25 23:54 Temperature Temperature Source Pulse Rate 80 84 Respiratory Rate Blood Pressure BP Systolic BP Diastolic Pulse Ox 94 06/30/25 23:54 06/30/25 23:59 06/30/25 23:59 Temperature Temperature Source Pulse Rate 74 Respiratory Rate Blood Pressure BP Systolic BP Diastolic Pulse Ox 94 99 07/01/25 00:04 07/01/25 00:04 07/01/25 00:06 Temperature Temperature Source Pulse Rate 76 Respiratory Rate Blood Pressure 113/73 BP Systolic 113 BP Diastolic 73 Pulse Ox 95 07/01/25 00:06 07/01/25 01:01 07/01/25 01:01 Temperature Temperature Source Pulse Rate 76 77 Respiratory Rate Blood Pressure 123/81 H BP Systolic 123 BP Diastolic 81 Pulse Ox 07/01/25 02:29 07/01/25 02:29 07/01/25 03:14 Temperature Temperature Source Pulse Rate 81 76 Respiratory Rate Blood Pressure 129/82 H BP Systolic 129 BP Diastolic 82 Pulse Ox 07/01/25 03:14 07/01/25 03:26 07/01/25 03:26 Temperature Temperature Source Pulse Rate 81 Respiratory Rate Blood Pressure 119/73 BP Systolic 119 BP Diastolic 73 Pulse Ox 89 07/01/25 03:27 07/01/25 03:27 07/01/25 03:32 Temperature Temperature Source Pulse Rate 84 82 Respiratory Rate Blood Pressure BP Systolic BP Diastolic Pulse Ox 100 07/01/25 03:32 Temperature Temperature Source Pulse Rate Respiratory Rate Blood Pressure BP Systolic BP Diastolic Pulse Ox 100 Weight Weight: 148 lb 3.2 oz Body Mass Index (BMI) 23.9 PRE- weight 106 lb PRE- Body Mass Index 17.0 (BMI) Physical Exam Const alert and oriented x3 General Appearance: cooperative Orientation / Consciousness: awake, oriented to person, oriented to place and oriented to time Exam Limitations: no limitations HEENT normocephalic Head and Scalp: normal to inspection, normocephalic and atraumatic Face and Sinus: normal facial exam Eyes General Eye: normal appearance of both eyes Neck full ROM Chest Chest: symmetrical chest wall rise Resp normal respiratory effort and normal air movement Auscultation: clear to auscultation bilaterally Cardio regular rate, regular rhythm, S1 normal heart sound, S2 normal heart sound, no murmurs, no rub, no gallops and no clicks GI normal to inspection, nondistended, normoactive bowel sounds and non-tender appearance of the vagina normal Bladder / Kidney Exam: no CVA tenderness Manual OB Exam: estimated gestational size appropriate, presentation cephalic, dilated 10, effaced 100 and station +2 Back/Spine normal ROM Extremity normal to inspection and full ROM Skin no rashes or lesions noted Neuro oriented x3, CN's II-XII intact bilaterally and moves all extremities Sensorium / Orientation: awake, alert and oriented to person Motor Exam: clonus absent Deep Tendon Reflexes: Rt Patellar (L4): 2+ and Lt Patellar (L4): 2+ Labs Labs Labs: Blood Type O POSITIVE Antibody Screen NEGATIVE Hct, (37-47) 36.5 % L Hgb, (12.0-15.0) 12.2 g/dL Obstetrics Ultrasound Syphilis Total Ab, (Nonreactive) Nonreactive Group B Strep DNA, (Negative) Negative Rhogam given: No Miscellaneous Test GBS negative RPR negative Rubella Immune HBsAG negative HepC negative HIV negative O positive GC/CT negative Assessment & Plan (1) 39 weeks gestation of : (2) History of herpes genitalis: (3) GDM, class A1: (4) Anemia affecting : PLAN: Plan 1) Admit to labor and delivery 2) Routine labs 3) Continuous EFM 4) Pain management, Epidural 5) collaborative physician and notified of patient status, above assessment, and plan.
--- NOTE | 2025-07-01 03:40 | OB.VAGDELI_ITS ---
Assessment & Plan (1) Vaginal delivery: (2) Perineal laceration of labia: Maternal Data Information ABRAHAM Calculator Estimated Delivery Date Method Current WG Current Estimate 07/08/25 Manual 39w 0d Vaginal Delivery Maternal Presentation Maternal Presentation: Active Labor and Spontaneous Rupture of Membranes Vaginal Delivery Information Procedure Performed: Spontaneous Vaginal Delivery Surgeon/Practitioner: Nilda Jean Date of Procedure: 07/01/25 Pre-Procedure Diagnosis: SROM, Active labor Post-Procedure Diagnosis: , bilateral labial laceration Type of anesthesia: Epidural Estimated Blood Loss: 400ml Time of Delivery: 03:19 Findings Description of procedure: Progressed to complete with urge to push. * pain management. of viable female over bilateral labial laceration . APGARS 8,9 respectively. head delivered with body immediately forthcoming. Placed on maternal abdomen, strong cry. Mouth and nares suctioned for secretions. Pitocin started for active 3rd stage management. Cord doubly clamped and cut by FOB after pulsations ceased, delayed cord clamping. Placenta delivered intact via freeman, 3 vessel cord intact. Perineum inspected and revealed bilateral labial laceration. Repaired with 3.0 vicryl rapide and epidural. Uterine atony and increased ble eding. Methergine given IM. Fundus firm and hemostasis achieved. EBL 400ml. Vaginal sweep completed by me, sponge and instrument correct. Mom and baby stable, planning to breastfeed. Family bonding well. notified of delivery. 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
[2025-07-01] MEDS: Oxytocin 15 Units/NS 250ml 15 UNITS/250 ML IV.SOLN 83 UNITS IV (03:54)
--- NOTE | 2025-07-01 15:52 | CASEMGMT ---
Social Work Assessment Labor and Delivery Unit Patient Address: [id number] [place] [address] Phone number: [phone] Date of Referral: 06/30/25 Time of Referral:? [id number] Referred By: Nilda Jean Date of Intervention: ??07/01/25 Time of Intervention:? 0 Reason for Referral:? FOB incarcerated History obtained from: medical records, MOB Household composition: REFUGIO is currently residing with her mother in law. REFUGIO denies any housing concerns reporting that where she currently lives is safe and secure. Patient's parent/guardian status:? ?REFUGIO states that she and TAMI have been together for three years after knowing each other through FOSilke's best friend whom REFUGIO was previously dating. MOB states that TAMI is currently incarcerated, since April. [place] baby is their first baby together. Medical History: ?REFUGIO is 24 year old female who is 4, para 3- now 4 following labor of . REFUGIO received care during with [facility]. REFUGIO presented to hospital and delivered baby via vaginal delivery at 38 weeks gestation. Baby girl, named Lakshmi, was born weighing 7lbs 13oz and had apgars of 8 and 9 at one and five minutes of life, respectfully. REFUGIO states that she is breast feeding and baby will be followed by Dr. Garner for pediatric care and follow up. Educational Status:? REFUGIO graduated from high school and denies any problems with reading, learning or comprehension. Financial Status: REFUGIO is currently employed at the [employer] and is able to take off as much time as she needs for a maternity leave. Supplies:?? All necessary baby supplies obtained, including: car seat, safe sleep space, clothes, diapers and wipes. Childcare/Caregiver(s):? REFUGIO will be the primary caregiver to baby along with her mother in law and other family members while she is working. Transportation:?REFUGIO reports to having her drivers license and reliable means of transportation, no barriers. ? Programs/Agencies Involved: ??REFUGIO is connected to [facility] for insurance. ? Children Services/Legal Issues:??? There is currently an onging open case with [facility]. TAMI was found asleep in a gas station parking lot with drug substances in the vehicle and the three other children in the car. Following that incident children services got involved and removed the children from the home. REFUGIO's older child, Sp (6) was placed in REFUGIO's cousin home, and her two younger children, twins: Bekah and Carin (4) were placed in another relatives home. - REFUGIO reports that there were conditions of her safety plan, she had to complete an IOP program, which she did at [facility] and is also receiving individual counseling services at [facility]. - TAMI was taken into custody in April of this year when he was essentially sentenced following the incident. - REFUGIO states that she has visits with her kids on Saturdays, and will be getting custody back in October and January. Behavioral Health Issues: ??Mental Health History:REFUGIO states that she has been diagnosed with depression and anxiety. She is prescribed Lexapro. REFUGIO states that her two other deliveries were not like this one, as they resulted in her children being admitted to the NICU, as her son was born at 28 weeks and her twins were also born prematurely. REFUGIO states that she struggled with her mental health during that time, but was never truly diagnosed with . ?? Substance Use History:?REFUGIO admits to exploring with substances in the past, admitting to trying methamphetamines, but reports that she used it one time and did not like it. 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 REFUGIO states that she got connected to drug court on her own own.? Family History:?REFUGIO states that her family has history of addiction and FOB of baby also has history of addiction. MOB states that one year after she and TAMI got together he started to struggle with addiction. ? Drug Screens: ??Drug screen at time of admission was negative for all substances. Family/Social Stressors:?REFUGIO denies any concerns or stressors at this time. Support Systems: REFUGIO states that her mother in law, sister in law, counselor, sober support and other family members are her biggest supports at this time. Depression/Shaken Baby/Safe Sleeping:? Amado educated REFUGIO on signs and symptoms of baby blues and depression and anxiety during this period. MOB states that she feels really good mentally. MOB states that although TAMI will not be at her home with baby, she has a lot of support from her mother in law. MOB states that the situation with TAMI being incarcerated is not ideal, but he has to suffer the consequences and it is unfortunate what the consequences are. MOB states that FOB has been able to call MOB frequently. MOB states that she can tell a difference with her Lexapro and does not have plans to make changes to her prescription. Sw expressed importance of safe sleep inside and outside of the bedroom. Sw educated MOB on always placing baby in bedside bassinet and not sleeping with baby in bed with her. Sw explained that baby's bassinet should be free of any blankets, pillows or stuffed animals. And baby should be sleeping in a onsie and a sleep sack/ swaddle sack for sleep. MOB expressed understanding. Sw discouraged sleeping with baby on a couch or in a reclining chair explaining that sleep accidents also happen in those areas as well. Sw educated MOB on shaken baby prevention. MOB expressed understanding. ASSESSMENT:? MOB and baby admitted following labor and delivery. MOB with mental health and substance use history. Due to FOB substance use history in presence of the other children, it resulted in open case and removal of children. Current out of home safety plan in place, with weekly scheduled visits. REFUGIO completed her assigned part of the safety plan and has plans to regain custody of her son in October and her twins in January. REFUGIO has mental health connections/ supports as well as natural supports in place. REFUGIO admits to history of substance abuse, to which she sought help with drug court and states she is now 10 months sober. REFUGIO was observed holding baby and caring for her appropriately while completing assessment with sw. MOB was open and talkative with sw right away opening up and disclosing involvement with [facility]. REFUGIO has all necessary baby items. PLAN:? No other services requested or indicated. MOB and baby to be discharged when medically ready. Parents were provided literature regarding: signs and symptoms of baby blues and mood and anxiety disorders, Help Me Grow, shaken baby prevention, ABCs of safe sleep and a list of [facility] resources that are available for them should any needs present themselves. Eden Mallory, [employer] ARCHITECT, BACK PADDER
[2025-07-02] VITALS: BP 102/60; PULSE 71; RESP 17; TEMP 36.2; O2SAT 98
[2025-07-02 00:10] VITALS: BP 102/60; PULSE 71
[2025-07-02 04:56] VITALS: BP 131/92; PULSE 90
[2025-07-02 05:00] VITALS: BP 131/92; PULSE 98; RESP 17; TEMP 36.4; O2SAT 100
[2025-07-02 06:21] LABS: Hematocrit 34.6 % (37-47); Hemoglobin 11.4 g/dL (12.0-15.0); Immature Granulocytes Count 0.130 X10^3/uL (0.0-0.0); Mean Corp Hgb Conc 32.9 g/dL (32-36); Mean Corpuscular Volume 89.4 fL (81-99); Mean Platelet Vol. 10.7 fl (6.2-12.0); NRBC Flagged by Analyzer 0 % (0-5); Platelet Count 157 K/mm3 (150-450); RBC Distribution Width CV 18.7 % (11.6-14.6); RBC Distribution Width SD 60.6 fl (35.1-43.9); Red Blood Count 3.87 M/mm3 (4.2-5.4); White Blood Count 12.9 K/mm3 (4.4-11.0)
[2025-07-02 09:36] VITALS: BP 117/74; PULSE 89
--- NOTE | 2025-07-02 09:49 | PCM.PN.OB ---
Subjective Subjective Denies complaints Objective Data Objective Data Vital Signs: Vital Signs Temp Pulse Resp BP Pulse Ox O2 Del Method 97.5 F L 89 17 117/74 100 Room Air 07/02/25 05:00 07/02/25 09:36 07/02/25 05:00 07/02/25 09:36 07/02/25 05:00 07/02/25 05:00 Oxygen Delivery Method Room Air Weight: 148 lb 3.2 oz Body Mass Index (BMI) 23.9 Intake & Output: Intake and Output for Last 24 Hours 06/30/25 07/01/25 07/02/25 23:59 23:59 23:59 Intake Total 999 / 999 1414.90 / 1414.90 Output Total 150 / 150 1600 / 1600 Balance 849 / 849 -185.10 / -185.10 Lab / Micro Data 07/02/25 06:07 Labs: Laboratory Results - last 24 hr 07/02/25 05:03: POC Glucose 88 07/02/25 06:07: WBC 12.9 H, RBC 3.87 L, Hgb 11.4 L, Hct 34.6 L, MCV 89.4, MCH 29.5, MCHC 32.9, RDW Std Deviation 60.6 H, RDW Coeff of Aida 18.7 H, Plt Count 157, MPV 10.7, Immature Gran % (Auto) 1.000 H, Neut % (Auto) 77.3 H, Lymph % (Auto) 13.6 L, [place] % (Auto) 6.9, Eos % (Auto) 0.9, Baso % (Auto) 0.3, Absolute Neuts (auto) 10.0 H, Absolute Lymphs (auto) 1.75, Nucleated RBC % 0 Physical Exam Const alert, oriented x3 and no apparent distress HEENT normocephalic GI soft to palpation, non-tender and non-distended GI Narrative: fundus firm, mid & below umbilicus Extremity normal to inspection and no calf tenderness Assessment & Plan (1) Vaginal delivery: PLAN: Plan D/c home per patient request
--- NOTE | 2025-07-02 09:52 | DS.PCM_ITS ---
Providers Date of Admission: 06/30/25 Primary Care Physician: Dr. Melissa Garner MD Reason For Visit: VAGINAL Diagnosis Discharge Diagnosis (1) Vaginal delivery: Status: Acute Code(s): O80 - Encounter for full-term uncomplicated delivery Plan D/c home per patient request Medications at Discharge Home Medications valacyclovir 1 gram tablet (Valtrex) 1,000 mg PO DAILY PRN hsv 11/11/20 [id number] 1 mg tablet 1 tab PO DAILY 03/07/21 escitalopram oxalate 10 mg tablet (Lexapro) 10 mg PO DAILY 05/14/25 acetaminophen 500 mg tablet 1,000 mg (2 x 500 mg) PO Q6H PRN PRN Pain 1-10 Or Fever #0 tabs 07/02/25 naproxen 500 mg tablet 500 mg PO Q8H PRN PRN Pain Score 1-10 #0 tabs 07/02/25 Hospital Course Operations None Procedures None Summary of Care Provided Minutes Spent on Discharge: 15 Weight / BMI Weight Weight: 148 lb 3.2 oz Body Mass Index (BMI) 23.9 PRE- weight 106 lb PRE- Body Mass Index 17.0 (BMI) ABG / Lab / Microbiology Data 07/02/25 06:07 Laboratory: Laboratory Results - last 24 hr 07/02/25 05:03: POC Glucose 88 07/02/25 06:07: WBC 12.9 H, RBC 3.87 L, Hgb 11.4 L, Hct 34.6 L, MCV 89.4, MCH 29.5, MCHC 32.9, RDW Std Deviation 60.6 H, RDW Coeff of Aida 18.7 H, Plt Count 157, MPV 10.7, Immature Gran % (Auto) 1.000 H, Neut % (Auto) 77.3 H, Lymph % (Auto) 13.6 L, [place] % (Auto) 6.9, Eos % (Auto) 0.9, Baso % (Auto) 0.3, Absolute Neuts (auto) 10.0 H, Absolute Lymphs (auto) 1.75, Nucleated RBC % 0 D/C Instructions Discharge Activity: May Shower May resume sexual activity in: 6 weeks Weight Bearing Status: Weight bearing as tolerated Call your doctor if you observe: Fever of 101 or Higher, Coldness, Increased Pain, Change in Color, Inability to urinate, Inability to have a bowel movement, Using more than 1 pad per hour, Shortness of breath, Dizziness, Fainting spells, Chest pain, Increased palpitations (irregular heartbeat), Calf discomfort and Uncontrolled pain DC O2, CPAP, BIPAP Needs Home O2 Discharge instructions: No Please Follow Up With: Nilda Jean CNM When: Follow up in 2 and 6 weeks for visits. Meaningful Use Info Meaningful Use Meaningful Use Diagnoses (Choose all that apply): None applicable Discharge Plan Admission Admit Date/Time: 06/30/25 20:56 Primary Reason for Your Visit: Vaginal delivery Attending Provider: Nilda Jean Primary Care Provider: Melissa Garner Discharge Orders/Prescriptions Prescriptions: New acetaminophen 500 mg Tablet 1,000 mg PO Q6H PRN PRN (Reason: Pain 1-10 Or Fever) Qty: 0 0RF naproxen 500 mg Tablet 500 mg PO Q8H PRN PRN (Reason: Pain Score 1-10) Qty: 0 0RF Continued valacyclovir [Valtrex] 1 gram tablet 1,000 mg PO DAILY PRN (Reason: hsv) Patient Comments: Take 1 tablet by mouth once daily. After completing 3 day episodic course. [id number] 1 mg Tablet 1 tab PO DAILY escitalopram oxalate [Lexapro] 10 mg tablet 10 mg PO DAILY Discontinued ferrous sulfate [FeroSul] 325 mg (65 mg iron) tablet 325 mg PO BID aspirin [Adult Low Dose Aspirin] 81 mg tablet,delayed release (DR/EC) 81 mg PO DAILY Referrals / Follow Up: Melissa Garner MD [Primary Care Provider, Pediatrics] Disposition Disposition (needs filled in before D/C Order can be placed): Home, Self Care
[2025-07-02 10:00] VITALS: BP 117/74; PULSE 89; RESP 16; TEMP 36.6
== END 2025-07-02 11:05 | disposition home or self-care (01) | DRG 560 ==
LOC: WPOUT 20:59 → WP 20:59
PROVIDERS: Admitting Provider Advanced Practice Midwife; PCP Pediatrics; Referring Provider Advanced Practice Midwife; Visit Provider Advanced Practice Midwife
DX: O24.429 Gestational diabetes mellitus in childbirth, unspecified control (principal); Z37.0 Single live birth; O72.1 Other immediate postpartum hemorrhage; F17.290 Nicotine dependence, other tobacco product, uncomplicated; Z3A.39 39 weeks gestation of pregnancy; Z79.82 Long term (current) use of aspirin; Z86.19 Personal history of other infectious and parasitic diseases; O99.334 Smoking (tobacco) complicating childbirth; O99.02 Anemia complicating childbirth; O70.0 First degree perineal laceration during delivery
CPT/HCPCS: 59025; 59050; 80307; 82962; 84112; 85025; 86780; 86850; 86900; 86901; 99221; A4216; G0378; J2405